=== PATIENT | male | born 1975 | race Caucasian/White ===

== ENCOUNTER 2016-09-22 22:23 | Emergency (ER) | payer OTHER ==
[2016-09-22 22:27] VITALS: BP 133/85; PULSE 79; RESP 18; TEMP 97.9
[2016-09-22] MEDS ORDERED: KETOROLAC 30 MG/ML 1 ML VIAL IVP STA (22:35)
[2016-09-22] MEDS ORDERED: SODIUM CHLORIDE 0.9% 1,000 ML IV STA ×2 (22:35)
[2016-09-22] MEDS ORDERED: MORPHINE SULFATE 4 MG/ML SYRINGE IV STA (22:35)
--- NOTE | 2016-09-22 22:41 | ED ---
General Adult HPI - General Chief complaint: Urogenital Stated complaint: Kidney Stone Time Seen by Provider: 09/22/16 22:24 Source: EMS, RN notes reviewed, old records reviewed Mode of arrival: EMS Limitations: no limitations - History of Present Illness Initial comments: This is a 41-year-old male to the ER for reevaluation K sounds, history of severe kidney stones multiple different episodes of kidney stones in his life. Multiple kidney stone procedures, follow Dr. Dilma Kirk urology, severe pain for 2 days now, mild blood and urine, and decreased urinary output. An abdominal pain. No fevers. - Related Data Home Medications Medication Instructions Recorded Confirmed Acetaminophen Tab [Tylenol Tab] 650 mg PO Q4-6H PRN 09/22/16 09/22/16 Albuterol Inhaler [Ventolin Hfa 1 - 2 puff INHALATION RT-QID PRN 09/22/16 Inhaler] Allergies Allergy/AdvReac Type Severity Reaction Status Date / Time No Known Allergies Allergy Verified 09/22/16 22:46 Review of Systems ROS Statement: Those systems with pertinent positive or pertinent negative responses have been documented in the HPI. ROS Other: All systems not noted in ROS Statement are negative. Past Medical History Past Medical History: Asthma Additional Past Medical History / Comment(s): kidney stones History of Any Multi-Drug Resistant Organisms: None Reported Past Surgical History: Appendectomy Past Psychological History: No Psychological Hx Reported Smoking Status: Current every day smoker Past Alcohol Use History: Occasional Past Drug Use History: None Reported General Exam Limitations: no limitations General appearance: alert, in no apparent distress Head exam: Present: atraumatic, normocephalic, normal inspection Eye exam: Present: normal appearance, PERRL, EOMI. Absent: scleral icterus, conjunctival injection, periorbital swelling ENT exam: Present: normal exam, mucous membranes moist Neck exam: Present: normal inspection. Absent: tenderness, meningismus, lymphadenopathy Respiratory exam: Present: normal lung sounds bilaterally. Absent: respiratory distress, wheezes, rales, rhonchi, stridor Cardiovascular Exam: Present: regular rate, normal rhythm, normal heart sounds. Absent: systolic murmur, diastolic murmur, rubs, gallop, clicks GI/Abdominal exam: Present: soft, normal bowel sounds. Absent: distended, tenderness, guarding, rebound, rigid Extremities exam: Present: normal inspection, full ROM, normal capillary refill. Absent: tenderness, pedal edema, joint swelling, calf tenderness Back exam: Present: normal inspection Neurological exam: Present: alert, oriented X3, CN II-XII intact Psychiatric exam: Present: normal affect, normal mood Skin exam: Present: warm, dry, intact, normal color. Absent: rash Course Vital Signs 09/22/16 22:24 Temperature 97.9 F Pulse Rate 79 Respiratory 18 Rate Blood Pressure 133/85 O2 Sat by Pulse 94 L Oximetry - Reevaluation(s) Reevaluation #1: 09/23/16 00:07 At this point patient's pain is controlled Medical Decision Making - Medical Decision Making 41 mailed ER for evaluation. Cells. Patient's positive bilateral kidney stones , and status control. Patient will be discharged home, no UTI no kidney failure - Lab Data Result diagrams: 09/22/16 22:37 09/22/16 22:37 Lab Results 09/22/16 09/22/16 09/22/16 Range/Units 22:37 22:37 22:37 WBC 11.3 H (3.8-10.6) k/uL RBC 3.79 L (4.30-5.90) m/uL Hgb 14.0 (13.0-17.5) gm/dL Hct 41.6 (39.0-53.0) % MCV 109.8 H (80.0-100.0) fL MCH 36.9 H (25.0-35.0) pg MCHC 33.6 (31.0-37.0) g/dL RDW 12.9 (11.5-15.5) % Plt Count 158 (150-450) k/uL Neutrophils % 58 % Lymphocytes % 25 % Monocytes % 6 % Eosinophils % 3 % Basophils % 1 % Neutrophils # 6.6 (1.3-7.7) k/uL Lymphocytes # 2.8 (1.0-4.8) k/uL Monocytes # 0.7 (0-1.0) k/uL Eosinophils # 0.4 (0-0.7) k/uL Basophils # 0.2 (0-0.2) k/uL Manual Slide Review Performed RBC Morphology Normal Macrocytosis Marked Sodium 144 (137-145) mmol/L Potassium 3.3 L (3.5-5.1) mmol/L Chloride 108 H (98-107) mmol/L Carbon Dioxide 20 L (22-30) mmol/L Anion Gap 16 mmol/L BUN 4 L (9-20) mg/dL Creatinine 0.70 (0.66-1.25) mg/dL Est GFR (MDRD) Af Amer >60 (>60 ml/min/1.73 sqM) Est GFR (MDRD) Non-Af >60 (>60 ml/min/1.73 sqM) Glucose 142 H (74-99) mg/dL Calcium 9.5 (8.4-10.2) mg/dL Total Bilirubin 0.7 (0.2-1.3) mg/dL AST 275 H (17-59) U/L ALT 83 H (21-72) U/L Alkaline Phosphatase 121 (38-126) U/L Total Protein 8.3 H (6.3-8.2) g/dL Albumin 4.3 (3.5-5.0) g/dL Amylase 75 (30-110) U/L Lipase 663 H (23-300) U/L Urine Color Yellow Urine Appearance Clear (Clear) Urine pH 6.0 (5.0-8.0) Ur Specific [place] 1.005 (1.001-1.035) Urine Protein Negative (Negative) Urine Glucose (UA) Negative (Negative) Urine Ketones Negative (Negative) Urine Blood Large H (Negative) Urine Nitrite Negative (Negative) Urine Bilirubin Negative (Negative) Urine Urobilinogen 3.0 (<2.0) mg/dL Ur Leukocyte Esterase Negative (Negative) Urine RBC 68 H (0-5) /hpf Urine WBC 13 H (0-5) /hpf Hyaline Casts 5 H (0-2) /lpf Urine Mucus Rare H (None) /hpf - Radiology Data Radiology results: report reviewed (X-ray KUB is negative), image reviewed Disposition Clinical Impression: Kidney stones Disposition: HOME SELF-CARE Condition: Good Instructions: Kidney Stones (ED) Referrals: Timmy Guevara MD [Primary Care Provider] - 1-2 days
[2016-09-22 22:58] LABS: Aty Lym Flag Slight; Basophils # (A) 0.2 k/uL (0-0.2); Basophils % (A) 1 %; CH 37.1; CHCM 33.9; Eosinophils # (A) 0.4 k/uL (0-0.7); Eosinophils % (A) 3 %; HCT 41.6 % (39.0-53.0); HDW 2.06; Luc # (Auto) 0.65; Luc % (Auto) 6; Lymphocytes # (A) 2.8 k/uL (1.0-4.8); Lymphocytes % (A) 25 %; MCH 36.9 pg (25.0-35.0); MCHC 33.6 g/dL (31.0-37.0); MCV 109.8 fL (80.0-100.0); Macrocytosis Marked; Mean Platelet Volume 9.5; Monocytes # (A) 0.7 k/uL (0-1.0); Monocytes % (A) 6 %; Neutrophils # (A) 6.6 k/uL (1.3-7.7); Neutrophils % (A) 58 %; RBC 3.79 m/uL (4.30-5.90); RDW 12.9 % (11.5-15.5); WBC 11.3 k/uL (3.8-10.6); WBC (Perox) 10.83
[2016-09-22 23:00] LABS: Appearance,Urine Clear (Clear); Bilirubin,Urine Negative (Negative); Glucose,Urine (UA) Negative (Negative); Ketones,Urine Negative (Negative); Leukocyte Esterase,Urine Negative (Negative); Mucus,Urine Rare /hpf; Nitrite,Urine Negative (Negative); Particle Count 2355; Protein,Urine Negative (Negative); RBC,Urine 68 /hpf (0-5); Specific Gravity,Urine 1.005 (1.001-1.035); UA Billing (MACRO vs. MICRO) MICRO; WBC,Urine 13 /hpf (0-5)
[2016-09-22 23:09] LABS: ALT 83 U/L (21-72); AST 275 U/L (17-59); Alkaline Phosphatase 121 U/L (38-126); Amylase 75 U/L (30-110); Anion Gap 16 mmol/L; Blood Urea Nitrogen 4 mg/dL (9-20); Calcium 9.5 mg/dL (8.4-10.2); Carbon Dioxide 20 mmol/L (22-30); Chloride 108 mmol/L (98-107); Glucose 142 mg/dL (74-99); Non-African American GFR(MDRD) >60 (>60 ml/min/1.73 sqM); Potassium 3.3 mmol/L (3.5-5.1); Sodium 144 mmol/L (137-145); Total Bilirubin 0.7 mg/dL (0.2-1.3); Total Protein 8.3 g/dL (6.3-8.2)
--- NOTE | 2016-09-22 23:27 | XR ---
EXAM: XR Abdomen Complete, 2 or More Views CLINICAL HISTORY: Reason: abdominal pain TECHNIQUE: Frontal view of the abdomen/pelvis with upright view of the abdomen. COMPARISON: No relevant prior studies available. FINDINGS: Intraperitoneal space: No free air. Gastrointestinal tract: Unremarkable. No dilation. Bones/joints: Unremarkable. IMPRESSION: Unremarkable abdominal x-rays.
[2016-09-22 23:28] LABS: Manual Review Performed; RBC Morphology Normal
[2016-09-22] MEDS ORDERED: HYDROmorphone 1 MG/ML 1 ML SYRINGE IVP STA (23:45)
== END 2016-09-23 00:15 | disposition home or self-care (01) ==
LOC: MERGE 22:23 → EC 22:23
DX: N20.0 Calculus of kidney (principal); F17.200 Nicotine dependence, unspecified, uncomplicated; Z90.49 Acquired absence of other specified parts of digestive tract
CPT/HCPCS: 36415; 80053; 82150; 83690; 85025; 81001; 87086; 74000; 99284; 96374; 96375 ×2; 96361; J2270; J1885; J1170

== ENCOUNTER 2016-10-11 18:34 | Emergency (ER) | payer OTHER ==
[2016-10-11 18:46] VITALS: RESP 18
[2016-10-11] MEDS ORDERED: LIDOCAINE VISCOUS 2% 15 ML CUP MUCOUS MEM ONE (18:55)
[2016-10-11] MEDS ORDERED: PENICILLIN V POTASSIUM 250 MG TAB PO STA (18:57)
[2016-10-11] MEDS ORDERED: Acetaminophen-Codeine 300-30mg TAB PO STA (19:32)
--- NOTE | 2016-10-11 19:37 | ED ---
ENT HPI - General Chief complaint: Dental/Oral Stated complaint: DENTAL ABSCESS Time Seen by Provider: 10/11/16 18:46 Source: patient Mode of arrival: ambulatory Limitations: no limitations - History of Present Illness Initial comments: Patient is a 41-year-old male presenting to the emergency department with complaints of dental pain to tooth #10. Onset of symptoms started approximately 3 days ago. Patient states it hurts when air hits the tooth. Patient complains of intermittent chills, denies fevers. Patient currently rates pain 8 out of 10. Patient states he took some Motrin approximately 2 hours prior to arrival. Patient denies nausea, vomiting, shortness of breath, chest pain, trismus, difficulty swallowing, sore throat, ear pain, decreased hearing, abdominal pain, numbness or tingling. Patient states he has a dentist and is going to make an appointment on Wednesday. MD complaint: tooth pain Onset/Timin -: days(s) Location: tooth # (10) Severity: severe Severity scale (1-10): 10 Quality: sharp Consistency: constant Improves with: none Worsens with: eating Context- Dental: history of dental caries, poor dental care Associated Symptoms: other (Chills) - Related Data Home Medications Medication Instructions Recorded Confirmed Acetaminophen Tab [Tylenol Tab] 650 mg PO Q4-6H PRN 09/22/16 09/22/16 Albuterol Inhaler [Ventolin Hfa 1 - 2 puff INHALATION RT-QID PRN 09/22/16 Inhaler] Previous Rx's Medication Instructions Recorded HYDROcodone/APAP 5-325MG [[place] 1 tab PO Q6HR PRN #30 tab 09/23/16 5-325] Naproxen [Naprosyn] 500 mg PO Q12HR #60 tab 09/23/16 Tamsulosin [Flomax] 0.4 mg PO DAILY #30 cap 09/23/16 Acetaminophen-Codeine 300-30mg 1 tab PO Q4H PRN #20 tablet 10/11/16 [Tylenol #3] Penicillin V Potassium [Pen Vee K] 500 mg PO QID #28 tab 10/11/16 Allergies Allergy/AdvReac Type Severity Reaction Status Date / Time No Known Allergies Allergy Verified 10/11/16 18:46 Review of Systems ROS Statement: Those systems with pertinent positive or pertinent negative responses have been documented in the HPI. ROS Other: All systems not noted in ROS Statement are negative. Past Medical History Past Medical History: Asthma Additional Past Medical History / Comment(s): kidney stones History of Any Multi-Drug Resistant Organisms: None Reported Past Surgical History: Appendectomy Past Psychological History: No Psychological Hx Reported Smoking Status: Current every day smoker Past Alcohol Use History: Occasional Past Drug Use History: None Reported General Exam Limitations: no limitations General appearance: alert, in no apparent distress Head exam: Present: atraumatic, normocephalic, normal inspection Eye exam: Present: normal appearance ENT exam: Present: mucous membranes moist Expanded Ear exam: Present: normal external inspection Mouth exam: Present: normal external inspection, tongue normal. Absent: drooling, trismus Teeth exam: Present: fractured tooth # (10), dental tenderness # (10), gingival enlargement (Minimal gingival enlargement superior to tooth #10) Throat exam: normal inspection. negative: tonsillar erythema, tonsillomegaly, tonsillar exudate, R peritonsillar mass, L peritonsillar mass Neck exam: Present: normal inspection, full ROM. Absent: tenderness, lymphadenopathy Respiratory exam: Present: normal lung sounds bilaterally. Absent: respiratory distress, wheezes, rales, rhonchi, stridor Cardiovascular Exam: Present: regular rate, tachycardia, normal heart sounds. Absent: systolic murmur GI/Abdominal exam: Present: soft, normal bowel sounds. Absent: distended, tenderness, guarding, rebound, rigid Extremities exam: Present: normal inspection, full ROM. Absent: tenderness Neurological exam: Present: alert, oriented X3, normal gait, other (No focal deficits noted) Psychiatric exam: Present: normal affect, normal mood Skin exam: Present: warm, dry, intact, normal color. Absent: rash Course Vital Signs 10/11/16 18:44 Temperature 98.5 F Pulse Rate 101 H Respiratory 18 Rate Blood Pressure 149/83 O2 Sat by Pulse 95 Oximetry Procedures - Incision & Drainage Consent Obtained: verbal consent Time Out Performed?: No Indication: Possible dental abscess Site: oral (Superior to tooth #10) Anesthetic Used: lidocaine 2% (Meniscus lidocaine) Sterile Field Used?: Yes Needle Aspiration Performed?: Yes Irrigation Performed?: No I&D Drainage Obtained: Blood Culture Obtained?: No Patient Tolerated Procedure: well, no complications Medical Decision Making - Medical Decision Making Dental abscess and toothache to tooth #10. No pus obtained from needle aspiration. Patient started on antibiotics and pain medicine and instructed to follow-up with dentist. Patient instructed to return to the emergency department if symptoms do not improve or get worse. Patient agrees with treatment plan. Discharge instructions and return parameters reviewed. Disposition Clinical Impression: Toothache, Dental abscess Disposition: HOME SELF-CARE Condition: Good Instructions: Dental Abscess (ED), Toothache (ED) Additional Instructions: Please finish antibiotics as prescribed. Continue Motrin and Tylenol 3 for pain as needed. Follow-up with dentist next week. Please return to the emergency department if symptoms do not improve or get worse in the next 24-48 hours. Prescriptions: Acetaminophen-Codeine 300-30mg [Tylenol #3] 1 tab PO Q4H PRN #20 tablet PRN Reason: Pain Penicillin V Potassium [Pen Vee K] 500 mg PO QID #28 tab Referrals: Timmy Guevara MD [Primary Care Provider] - 1-2 days Time of Disposition: 19:36
[2016-10-11 19:49] VITALS: BP 145/76; PULSE 94; TEMP 98.7
== END 2016-10-11 19:48 | disposition home or self-care (01) ==
LOC: MERGE 18:34 → EC 18:34
DX: K04.7 Periapical abscess without sinus (principal); S02.5XXA Fracture of tooth (traumatic), initial encounter for closed fracture; F17.200 Nicotine dependence, unspecified, uncomplicated; X58.XXXA Exposure to other specified factors, initial encounter
CPT/HCPCS: 41800; 99282

== ENCOUNTER 2016-10-30 05:42 | Emergency (ER) | payer OTHER ==
[2016-10-30 05:51] VITALS: RESP 18
--- NOTE | 2016-10-30 06:04 | ED ---
ENT HPI - General Chief complaint: Dental/Oral Stated complaint: Dental Pain Time Seen by Provider: 10/30/16 05:48 Source: patient Mode of arrival: ambulatory Limitations: no limitations - History of Present Illness Initial comments: This is a 41-year-old male who presents emergency department for dental pain. The patient states he's been having dental pain over his right upper lateral incisor for the last month. He was eating a steak last night and the tooth broke. He swallowed some of it and kept the other part which she lost arrival to the ED. He states that he came in because he wanted to have the tooth pulled because it was hurting. He denies any fevers or chills. He states he is not able to get into his dentist for quite some time. - Related Data Home Medications Medication Instructions Recorded Confirmed Albuterol Inhaler [Ventolin 2 puff INHALATION RT-QID PRN 02/14/15 02/10/16 Inhaler] Previous Rx's Medication Instructions Recorded HYDROcodone/APAP 7.5-325MG [[place] 1 tab PO Q4H PRN #15 tab 10/30/16 7.5-325] Allergies Allergy/AdvReac Type Severity Reaction Status Date / Time No Known Allergies Allergy Verified 10/30/16 05:51 Review of Systems ROS Statement: Those systems with pertinent positive or pertinent negative responses have been documented in the HPI. ROS Other: All systems not noted in ROS Statement are negative. Past Medical History Past Medical History: Asthma Additional Past Medical History / Comment(s): kidney stones History of Any Multi-Drug Resistant Organisms: MRSA, None Reported Date of last positivie culture/infection: 12/09/2013 MDRO Source:: Right First Finger Past Surgical History: Appendectomy, Orthopedic Surgery Additional Past Surgical History / Comment(s): right hand surgery, right knee surgery Past Psychological History: No Psychological Hx Reported Smoking Status: Current every day smoker Past Alcohol Use History: Daily, Occasional Past Drug Use History: None Reported General Exam - General Exam Comments Initial Comments: Constitutional: Awake alert Appears comfortable Head: Normocephalic atraumatic Eyes: no conjunctival injection No scleral icterus EOMI ENT: There is a fractured right upper lateral incisor with jagged edges, no periodontal swelling or abscess formation Neck: No JVD Supple Heart: Tachycardic normal S1-S2 no murmurs Lungs: Clear to auscultation bilaterally No wheezing No rales Abdomen: Soft nondistended nontender Extremities: Non edematous DP pulses intact Radial pulses intact Neuro: A&Ox3 No focal neurologic deficits Psych: Appropriate mood and affect Limitations: no limitations Course Vital Signs 10/30/16 10/30/16 05:48 06:40 Temperature 98.7 F 97.8 F Pulse Rate 125 H 108 H Respiratory 18 18 Rate Blood Pressure 132/69 124/64 O2 Sat by Pulse 94 L 97 Oximetry - Reevaluation(s) Reevaluation #1: 10/30/16 06:48 EKG showing sinus tachycardia with a rate of 103. No ST segment changes or T- wave inversions. QTC 445. Other intervals are normal. No ectopy. Medical Decision Making - Medical Decision Making This is a 5-year-old male came in for a tooth fracture. He was found to be a little bit tachycardic and had some wheezing on examination and thus a chest x- ray was performed that was unremarkable. EKG also showed very mild tachycardia. The patient's tooth was filed down to round out the sharp edges. He was told to call his dentist today for extraction. No evidence for infection. We will send the patient home. He can return if he has any worsening symptoms. All questions were answered. Disposition Clinical Impression: Tooth fracture Disposition: HOME SELF-CARE Condition: Stable Instructions: Dental Caries (ED), Toothache (ED) Prescriptions: HYDROcodone/APAP 7.5-325MG [[place] 7.5-325] 1 tab PO Q4H PRN #15 tab PRN Reason: Pain Referrals: Timmy Guevara MD [Primary Care Provider] - 1-2 days
[2016-10-30] MEDS ORDERED: KETOROLAC 30 MG/ML 1 ML VIAL IM STA (06:20)
[2016-10-30 06:41] VITALS: BP 124/64; PULSE 108; TEMP 97.8
--- NOTE | 2016-10-30 06:48 | XR ---
EXAM: XR Chest, 2 Views CLINICAL HISTORY: Reason: cough TECHNIQUE: Frontal and lateral views of the chest. COMPARISON: No relevant prior studies available. FINDINGS: Lungs: Unremarkable. No consolidation. Pleural space: Unremarkable. No pneumothorax. Heart: Unremarkable. No cardiomegaly. Mediastinum: Unremarkable. Bones/joints: Unremarkable. IMPRESSION: Unremarkable chest x-rays.
== END 2016-10-30 06:42 | disposition home or self-care (01) ==
LOC: EC 05:42
DX: S02.5XXA Fracture of tooth (traumatic), initial encounter for closed fracture (principal); R00.0 Tachycardia, unspecified; R06.2 Wheezing; F17.200 Nicotine dependence, unspecified, uncomplicated; X58.XXXA Exposure to other specified factors, initial encounter
CPT/HCPCS: 93005; 71020; 99283; 96372; J1885

== ENCOUNTER 2016-12-04 19:10 | Observation (INO) | payer OTHER ==
[2016-12-04 19:38] LABS: Basophils # (A) 0.2 k/uL (0-0.2); Basophils % (A) 2 %; CH 34.8; CHCM 33.1; Eosinophils # (A) 0.2 k/uL (0-0.7); Eosinophils % (A) 2 %; HCT 38.2 % (39.0-53.0); HDW 1.97; HGB 12.9 gm/dL (13.0-17.5); Luc # (Auto) 0.35; Luc % (Auto) 3; Lymphocytes # (A) 1.7 k/uL (1.0-4.8); Lymphocytes % (A) 17 %; MCH 35.6 pg (25.0-35.0); MCHC 33.7 g/dL (31.0-37.0); MCV 105.5 fL (80.0-100.0); Macrocytosis Slight; Mean Platelet Volume 9.7; Monocytes % (A) 9 %; Neutrophils # (A) 6.9 k/uL (1.3-7.7); Neutrophils % (A) 68 %; RBC 3.62 m/uL (4.30-5.90); RDW 13.2 % (11.5-15.5); WBC 10.2 k/uL (3.8-10.6); WBC (Perox) 10.23
[2016-12-04 19:51] LABS: ALT 80 U/L (21-72); AST 235 U/L (17-59); Alkaline Phosphatase 130 U/L (38-126); Anion Gap 16 mmol/L; Blood Urea Nitrogen 4 mg/dL (9-20); Calcium 9.5 mg/dL (8.4-10.2); Carbon Dioxide 20 mmol/L (22-30); Chloride 107 mmol/L (98-107); Glucose 113 mg/dL (74-99); Magnesium 1.8 mg/dL (1.6-2.3); Non-African American GFR(MDRD) >60 (>60 ml/min/1.73 sqM); Potassium 3.6 mmol/L (3.5-5.1); Sodium 143 mmol/L (137-145); Total Bilirubin 1.1 mg/dL (0.2-1.3)
[2016-12-04 19:55] LABS: INR 1.1 (<1.2); Partial Thromboplastin Time 26.1 sec (22.0-30.0); Prothrombin Time 11.1 sec (9.0-12.0)
[2016-12-04] MEDS ORDERED: SODIUM CHLORIDE 0.9% 1,000 ML IV ONE (20:02)
[2016-12-04] MEDS ORDERED: MORPHINE SULFATE 4 MG/ML SYRINGE IVP STA (20:02)
[2016-12-04 20:11] LABS: Creatine Kinase 152 U/L (55-170)
--- NOTE | 2016-12-04 20:20 | XR ---
EXAMINATION TYPE: XR chest 2V DATE OF EXAM: 12/04/2016 COMPARISON: 10/30/2016 HISTORY: Short of breath TECHNIQUE: Frontal and lateral views of the chest are obtained. FINDINGS: Heart and mediastinum are normal. Lungs are clear of consolidation. Diaphragm is normal. T here is a small linear density at the right posterior lung base. There are chest leads. Bony thorax i s intact. IMPRESSION: There is new mild subsegmental atelectasis at the right lung base compared to old exam. Normal heart.
[2016-12-04 20:22] LABS: Creatine Kinase MB 0.5 ng/mL (0.0-2.4); Troponin I <0.012 ng/mL (0.000-0.034)
[2016-12-04] MEDS ORDERED: SODIUM CHLORIDE 0.9% 1,000 ML IV SCH (21:30)
[2016-12-04] MEDS ORDERED: NALOXONE 0.4 MG/ML 1 ML VIAL IV PRN (22:26)
[2016-12-04] MEDS ORDERED: ONDANSETRON 4 MG/2 ML VIAL IVP PRN (22:26)
[2016-12-04] MEDS ORDERED: THIAMINE 100 MG/ML 2 ML VIAL IM STA (22:30)
[2016-12-04] MEDS ORDERED: LORazepam 2 MG/ML SYRINGE IV PRN ×3 (22:30)
--- NOTE | 2016-12-04 22:45 | ED ---
General Adult HPI - General Chief complaint: Chest Pain Stated complaint: Chest Pain Time Seen by Provider: 12/04/16 19:20 Source: patient, RN notes reviewed Mode of arrival: ambulatory Limitations: no limitations - History of Present Illness Initial comments: 41-year-old male presenting with chief complaint of chest pain. Patient describes the pain as pressure-like been on and off for 3 days. Patient denies any nausea vomiting diarrhea. He is also complaining of tooth pain. Tooth is been present for some time. Denies diaphoresis. Denies a strong family history of coronary artery disease. Patient does admit to consuming large amounts of alcohol over the past 24-48 hours. Only past medical history is asthma. - Related Data Home Medications Medication Instructions Recorded Confirmed Albuterol Inhaler [Ventolin 2 puff INHALATION RT-QID PRN 02/14/15 12/04/16 Inhaler] Multivitamin [Men's Multi-Vitamin] 1 tab PO DAILY 12/04/16 12/04/16 Allergies Allergy/AdvReac Type Severity Reaction Status Date / Time No Known Allergies Allergy Verified 12/04/16 19:38 Review of Systems ROS Statement: Those systems with pertinent positive or pertinent negative responses have been documented in the HPI. ROS Other: All systems not noted in ROS Statement are negative. Cardiovascular: Reports: chest pain Past Medical History Past Medical History: Asthma Additional Past Medical History / Comment(s): kidney stones History of Any Multi-Drug Resistant Organisms: MRSA, None Reported Date of last positivie culture/infection: 12/09/2013 MDRO Source:: Right First Finger Past Surgical History: Appendectomy, Orthopedic Surgery Additional Past Surgical History / Comment(s): right hand surgery, right knee surgery Past Psychological History: No Psychological Hx Reported Smoking Status: Current every day smoker Past Alcohol Use History: Daily, Occasional Past Drug Use History: None Reported General Exam Limitations: no limitations General appearance: alert, in no apparent distress, appears intoxicated Head exam: Present: atraumatic, normocephalic Eye exam: Present: normal appearance, PERRL ENT exam: Present: normal exam, mucous membranes dry Neck exam: Present: normal inspection, full ROM Respiratory exam: Present: normal lung sounds bilaterally. Absent: respiratory distress Cardiovascular Exam: Present: regular rate, normal rhythm GI/Abdominal exam: Present: soft, tenderness (Tenderness in the epigastrium). Absent: guarding, rebound Extremities exam: Present: normal inspection, normal capillary refill. Absent: pedal edema Neurological exam: Present: alert, oriented X3 Psychiatric exam: Present: normal affect, normal mood Skin exam: Present: warm, dry Course Vital Signs 12/04/16 12/04/16 12/04/16 19:20 19:24 20:43 Temperature 98.3 F Pulse Rate 81 70 Pulse Rate [ 82 Mock Up Builder ] Respiratory 18 17 Rate Blood Pressure 145/80 135/73 O2 Sat by Pulse 96 97 Oximetry 12/04/16 22:07 Temperature 98.0 F Pulse Rate 82 Pulse Rate [ Mock Up Builder ] Respiratory 18 Rate Blood Pressure 130/75 O2 Sat by Pulse 95 Oximetry - Reevaluation(s) Reevaluation #1: 12/04/16 22:41 Reevaluation the patient is still having pain primarily in the epigastrium. EKG Findings - EKG Comments: EKG Findings:: EKG shows normal sinus rhythm, ventricular rate 93, [place] interval 150, QRS duration 96, QTC is 465, there is no ST segment elevation or depression , no T-wave abnormality. Medical Decision Making - Medical Decision Making 41-year-old male presenting with chest pain and epigastric abdominal pain. Patient is tender on examination in the epigastrium, no rebound or guarding. He does admit to drinking alcohol. Patient is clinically intoxicated. He is in no acute distress. EKG is nonischemic. Chest x-ray shows no acute process. D-dimer is mildly elevated, however given the patient's heart rate blood pressure and oxygen saturation and no lower extremity swelling no further workup for pulmonary embolism will be obtained at this time. Laboratory studies reveal thrombocytopenia, elevated serum lipase consistent with pancreatitis. Liver enzymes are also elevated. Initial cardiac enzymes are negative. Given a chief complaint of chest pain serial cardiac enzymes will be obtained. Ultrasound also be ordered to rule out gallstone pancreatitis , however given the history and clinical intoxication this is likely alcoholic pancreatitis. Patient will be given IV fluids, nothing by mouth, and pain control. He will be admitted for acute pancreatitis and chest pain rule out. - Lab Data Result diagrams: 12/04/16 19:25 12/04/16 19:25 Lab Results 12/04/16 12/04/16 12/04/16 Range/Units 19:25 19:25 19:25 WBC 10.2 (3.8-10.6) k/uL RBC 3.62 L (4.30-5.90) m/uL Hgb 12.9 L (13.0-17.5) gm/dL Hct 38.2 L (39.0-53.0) % MCV 105.5 H (80.0-100.0) fL MCH 35.6 H (25.0-35.0) pg MCHC 33.7 (31.0-37.0) g/dL RDW 13.2 (11.5-15.5) % Plt Count 102 L (150-450) k/uL Neutrophils % 68 % Lymphocytes % 17 % Monocytes % 9 % Eosinophils % 2 % Basophils % 2 % Neutrophils # 6.9 (1.3-7.7) k/uL Lymphocytes # 1.7 (1.0-4.8) k/uL Monocytes # 1.0 (0-1.0) k/uL Eosinophils # 0.2 (0-0.7) k/uL Basophils # 0.2 (0-0.2) k/uL Macrocytosis Slight PT (9.0-12.0) sec INR (<1.2) APTT (22.0-30.0) sec D-Dimer (<0.60) mg/L FEU Sodium 143 (137-145) mmol/L Potassium 3.6 (3.5-5.1) mmol/L Chloride 107 (98-107) mmol/L Carbon Dioxide 20 L (22-30) mmol/L Anion Gap 16 mmol/L BUN 4 L (9-20) mg/dL Creatinine 0.60 L (0.66-1.25) mg/dL Est GFR (MDRD) Af Amer >60 (>60 ml/min/1.73 sqM) Est GFR (MDRD) Non-Af >60 (>60 ml/min/1.73 sqM) Glucose 113 H (74-99) mg/dL Calcium 9.5 (8.4-10.2) mg/dL Magnesium 1.8 (1.6-2.3) mg/dL Total Bilirubin 1.1 (0.2-1.3) mg/dL AST 235 H (17-59) U/L ALT 80 H (21-72) U/L Alkaline Phosphatase 130 H (38-126) U/L Total Creatine Kinase 152 (55-170) U/L CK-MB (CK-2) 0.5 (0.0-2.4) ng/mL CK-MB (CK-2) Rel Index 0.3 Troponin I <0.012 (0.000-0.034) ng/mL NT-Pro-B Natriuret Pep pg/mL Total Protein 8.0 (6.3-8.2) g/dL Albumin 4.4 (3.5-5.0) g/dL Lipase 764 H (23-300) U/L Serum Alcohol mg/dL 12/04/16 12/04/16 12/04/16 Range/Units 19:25 19:25 20:24 WBC (3.8-10.6) k/uL RBC (4.30-5.90) m/uL Hgb (13.0-17.5) gm/dL Hct (39.0-53.0) % MCV (80.0-100.0) fL MCH (25.0-35.0) pg MCHC (31.0-37.0) g/dL RDW (11.5-15.5) % Plt Count (150-450) k/uL Neutrophils % % Lymphocytes % % Monocytes % % Eosinophils % % Basophils % % Neutrophils # (1.3-7.7) k/uL Lymphocytes # (1.0-4.8) k/uL Monocytes # (0-1.0) k/uL Eosinophils # (0-0.7) k/uL Basophils # (0-0.2) k/uL Macrocytosis PT 11.1 (9.0-12.0) sec INR 1.1 (<1.2) APTT 26.1 (22.0-30.0) sec D-Dimer 0.70 H (<0.60) mg/L FEU Sodium (137-145) mmol/L Potassium (3.5-5.1) mmol/L Chloride (98-107) mmol/L Carbon Dioxide (22-30) mmol/L Anion Gap mmol/L BUN (9-20) mg/dL Creatinine (0.66-1.25) mg/dL Est GFR (MDRD) Af Amer (>60 ml/min/1.73 sqM) Est GFR (MDRD) Non-Af (>60 ml/min/1.73 sqM) Glucose (74-99) mg/dL Calcium (8.4-10.2) mg/dL Magnesium (1.6-2.3) mg/dL Total Bilirubin (0.2-1.3) mg/dL AST (17-59) U/L ALT (21-72) U/L Alkaline Phosphatase (38-126) U/L Total Creatine Kinase (55-170) U/L CK-MB (CK-2) (0.0-2.4) ng/mL CK-MB (CK-2) Rel Index Troponin I (0.000-0.034) ng/mL NT-Pro-B Natriuret Pep 31 pg/mL Total Protein (6.3-8.2) g/dL Albumin (3.5-5.0) g/dL Lipase (23-300) U/L Serum Alcohol 291 mg/dL Disposition Clinical Impression: Pancreatitis, acute Disposition: ADMITTED IP TO THIS HOSP Referrals: Timmy Guevara MD [Primary Care Provider] - 1-2 days Decision to Admit Reason: Admit from EC Decision Date: 12/04/16 Decision Time: 22:00
[2016-12-04] MEDS: THIAMINE 100 MG TAB PO SCH (23:44)
[2016-12-04 23:53] VITALS: BMI 25.3
[2016-12-04] MEDS: MORPHINE SULFATE 4 MG/ML SYRINGE IV PRN (23:54)
--- NOTE | 2016-12-05 00:38 | US ---
EXAM: US Abdomen Limited, Right Upper Quadrant CLINICAL HISTORY: Reason: Pain TECHNIQUE: Real-time ultrasound of the right upper quadrant with image documentation. COMPARISON: CT dated 03/03/16. FINDINGS: Liver: Liver Length: 20.1 cm fatty and enlarged No intrahepatic bile duct dilation. Gallbladder: Gallbladder Wall: 0.2 cm. No evidence for sonographic Talamantes's sign. No gallstones. Common bile duct: CBD: 0.3 cm. Unremarkable as visualized. No stones. No dilation. Pancreas: hyperechoic Right kidney: 12.1 x 6.2 x 4.4 cm. No stones. No hydronephrosis. IMPRESSION: Hepatomegaly with fatty infiltration. Previously seen right renal calculi not identified on ultrasound.
[2016-12-05] MEDS ORDERED: ALBUTEROL NEBULIZED 2.5 MG/3 ML INHALATION PRN (01:04)
[2016-12-05 02:15] LABS: Creatine Kinase 149 U/L (55-170)
[2016-12-05 02:28] LABS: Creatine Kinase MB 0.5 ng/mL (0.0-2.4); Troponin I <0.012 ng/mL (0.000-0.034)
[2016-12-05] MEDS: NICOTINE 21MG/24HR PATCH TRANSDERM SCH ×2 (02:41→11:34)
[2016-12-05] MEDS: MORPHINE SULFATE 4 MG/ML SYRINGE IV PRN ×3 (03:35→11:34)
[2016-12-05 07:21] LABS: ALT 68 U/L (21-72); AST 159 U/L (17-59); Alkaline Phosphatase 106 U/L (38-126); Anion Gap 11 mmol/L; Blood Urea Nitrogen 3 mg/dL (9-20); Carbon Dioxide 18 mmol/L (22-30); Chloride 110 mmol/L (98-107); Glucose 85 mg/dL (74-99); Non-African American GFR(MDRD) >60 (>60 ml/min/1.73 sqM); Potassium 3.6 mmol/L (3.5-5.1); Sodium 139 mmol/L (137-145); Total Protein 6.8 g/dL (6.3-8.2)
[2016-12-05 07:24] LABS: Creatine Kinase 162 U/L (55-170)
[2016-12-05 07:32] LABS: Basophils # (A) 0.1 k/uL (0-0.2); Basophils % (A) 1 %; CH 34.2; CHCM 32.1; Eosinophils # (A) 0.2 k/uL (0-0.7); Eosinophils % (A) 4 %; HCT 35.2 % (39.0-53.0); HDW 1.95; HGB 11.7 gm/dL (13.0-17.5); Luc # (Auto) 0.14; Luc % (Auto) 2; Lymphocytes # (A) 1.7 k/uL (1.0-4.8); Lymphocytes % (A) 27 %; MCH 35.5 pg (25.0-35.0); MCHC 33.1 g/dL (31.0-37.0); MCV 107.1 fL (80.0-100.0); Macrocytosis Moderate; Monocytes # (A) 0.6 k/uL (0-1.0); Monocytes % (A) 9 %; Neutrophils # (A) 3.6 k/uL (1.3-7.7); Neutrophils % (A) 57 %; RBC 3.29 m/uL (4.30-5.90); RDW 13.1 % (11.5-15.5); WBC 6.3 k/uL (3.8-10.6)
[2016-12-05 07:36] LABS: Creatine Kinase MB 0.5 ng/mL (0.0-2.4); Troponin I <0.012 ng/mL (0.000-0.034)
--- NOTE | 2016-12-05 08:48 | P.CRDCN ---
History of Present Illness Consult date: 12/05/16 History of present illness: This is a 41-year-old gentleman with history of alcohol abuse who has been drinking heavily for the last 4 days, who was admitted to the hospital with complaints of chest pain and left arm pain and also epigastric distress. Apparently he was drinking with his friend and complained having some heavy feeling in the chest as if somebody sitting on his chest with some left arm numbness and tingling. This started around noontime yesterday and lasted up to 1:00 last night. Denies any nausea or vomiting or diarrhea. He also has a tooth abscess and having some tooth pain. His EKG did not reveal any acute changes. His cardiac enzymes studies are negative. His liver enzymes are elevated and the also lipase is elevated. This may be related to alcohol consumption. We are planning to do an echocardiogram today. If that is normal and patient remains stable, patient probably could be discharged to have an outpatient stress test early next week. Patient also may require GI evaluation because of abnormal liver and pancreatic enzymes. The possibility of esophagitis and gastritis to be considered Review of Systems As per the chart Past Medical History Past Medical History: Asthma Additional Past Medical History / Comment(s): kidney stones History of Any Multi-Drug Resistant Organisms: None Reported Date of last positivie culture/infection: 12/09/2013 MDRO Source:: Right First Finger Past Surgical History: Appendectomy, Orthopedic Surgery Additional Past Surgical History / Comment(s): right hand surgery, right knee surgery Past Anesthesia/Blood Transfusion Reactions: No Reported Reaction Smoking Status: Current every day smoker - Past Family History Mother Family Medical History: Hypertension Father Additional Family Medical History / Comment(s): Prostate issues. Brain anyrsum Medications and Allergies Home Medications Medication Instructions Recorded Confirmed Type Albuterol Inhaler [Ventolin 2 puff INHALATION RT-QID PRN 02/14/15 12/04/16 History Inhaler] Multivitamin [Men's Multi-Vitamin] 1 tab PO DAILY 12/04/16 12/04/16 History Allergies Allergy/AdvReac Type Severity Reaction Status Date / Time No Known Allergies Allergy Verified 12/04/16 19:38 Physical Exam Vitals: Vital Signs Temp Pulse Pulse Pulse Resp BP BP 12/05/16 07:40 98.1 F 81 16 12/05/16 03:49 18 12/05/16 03:02 97.9 F 73 18 122/58 12/04/16 23:56 18 12/04/16 23:41 97.8 F 75 18 141/80 12/04/16 23:11 98.0 F 66 18 118/78 12/04/16 22:07 98.0 F 82 18 130/75 12/04/16 20:43 70 17 135/73 12/04/16 19:24 82 12/04/16 19:20 98.3 F 81 18 145/80 BP Pulse Ox 12/05/16 07:40 145/81 92 L 12/05/16 03:49 12/05/16 03:02 94 L 12/04/16 23:56 12/04/16 23:41 93 L 12/04/16 23:11 98 12/04/16 22:07 95 12/04/16 20:43 97 12/04/16 19:24 12/04/16 19:20 96 Intake and Output 12/04/16 12/05/16 12/05/16 22:59 06:59 14:59 Intake Total 900 Balance 900 Intake: IV 900 Sodium Chloride 0.9% 1, 900 000 ml @ 100 mls/hr IV . Q10H [facility] Rx#:[id number] Other: Voiding Method Toilet Toilet # Voids 3 Weight 84.822 kg 84.8 kg GENERAL EXAM: Patient is alert and oriented and doesn't appear to be in any acute distress HEENT: Normocephalic. Normal reaction of pupils, equal size, normal range of extraocular motion. No erythema or exudates in the throat. NECK: No masses, no nuchal rigidity. CHEST: No chest wall deformity. LUNGS: Equal air entry with no crackles or wheeze. HEART: S1 and S2 normal with no audible mumurs or gallops. Regular rhythm, femorals equal on both sides.. ABDOMEN: No hepatosplenomegaly, normal bowel sounds, no guarding or rigidity. SKIN: No rashes CENTRAL NERVOUS SYSTEM: No focal deficits. EXTREMITIES: No cyanosis, clubbing or edema. Results 12/05/16 06:50 12/05/16 06:50 Cardiac Enzymes 12/04/16 12/04/16 12/05/16 Range/Units 19:25 19:25 01:33 AST 235 H (17-59) U/L CK-MB (CK-2) 0.5 0.5 (0.0-2.4) ng/mL Troponin I <0.012 <0.012 (0.000-0.034) ng/mL 12/05/16 12/05/16 Range/Units 06:50 06:50 AST 159 H (17-59) U/L CK-MB (CK-2) 0.5 (0.0-2.4) ng/mL Troponin I <0.012 (0.000-0.034) ng/mL Coagulation 12/04/16 Range/Units 19:25 PT 11.1 (9.0-12.0) sec APTT 26.1 (22.0-30.0) sec CBC 12/04/16 12/05/16 Range/Units 19:25 06:50 WBC 10.2 6.3 (3.8-10.6) k/uL RBC 3.62 L 3.29 L (4.30-5.90) m/uL Hgb 12.9 L 11.7 L (13.0-17.5) gm/dL Hct 38.2 L 35.2 L (39.0-53.0) % Plt Count 102 L 73 L (150-450) k/uL Comprehensive Metabolic Panel 12/04/16 12/05/16 Range/Units 19:25 06:50 Sodium 143 139 (137-145) mmol/L Potassium 3.6 3.6 (3.5-5.1) mmol/L Chloride 107 110 H (98-107) mmol/L Carbon Dioxide 20 L 18 L (22-30) mmol/L BUN 4 L 3 L (9-20) mg/dL Creatinine 0.60 L 0.50 L (0.66-1.25) mg/dL Glucose 113 H 85 (74-99) mg/dL Calcium 9.5 8.0 L (8.4-10.2) mg/dL AST 235 H 159 H (17-59) U/L ALT 80 H 68 (21-72) U/L Alkaline Phosphatase 130 H 106 (38-126) U/L Total Protein 8.0 6.8 (6.3-8.2) g/dL Albumin 4.4 3.6 (3.5-5.0) g/dL Current Medications Generic Name Dose Route Start Last Admin Trade Name Freq PRN Reason Stop Dose Admin Albuterol Sulfate 2.5 mg 12/05/16 01:04 Ventolin Nebulized INHALATION RT-QID PRN Shortness Of Breath Sodium Chloride 1,000 mls @ 100 mls/hr 12/04/16 21:30 12/04/16 22:05 Saline 0.9% IV 100 mls/hr .Q10H [facility] Administration Esomeprazole Magnesium 20 mg/ 50 mls @ 100 mls/hr 12/05/16 09:00 Sodium Chloride IVPB DAILY RAD[facility] Lorazepam 1 mg 12/04/16 22:30 Ativan IV Q2HR PRN CIWA 8 or 9 Lorazepam 1 mg 12/04/16 22:30 Ativan IV Q1HR PRN CIWA 10 to 15 Lorazepam 2 mg 12/04/16 22:30 Ativan IV Q1HR PRN CIWA 16 or higher Morphine Sulfate 4 mg 12/04/16 22:26 12/05/16 07:19 Morphine Sulfate (Inj) IV 4 mg Q4HR PRN Administration Severe Pain Naloxone HCl 0.2 mg 12/04/16 22:26 Narcan IV Q2M PRN Opioid Reversal Nicotine 1 patch 12/05/16 01:47 12/05/16 02:41 Habitrol 21mg/24hr Patch TRANSDERM 1 patch DAILY RADHA Administration Ondansetron HCl 4 mg 12/04/16 22:26 Zofran IVP Q8HR PRN Nausea And Vomiting Thiamine HCl 100 mg 12/04/16 17:00 12/04/16 23:44 Vitamin B-1 PO Not Given BID@1200,1700 RADHA Intake and Output 12/04/16 12/05/16 12/05/16 22:59 06:59 14:59 Intake Total 900 Balance 900 Intake: IV 900 Sodium Chloride 0.9% 1, 900 000 ml @ 100 mls/hr IV . Q10H [facility] Rx#:[id number] Other: Voiding Method Toilet Toilet # Voids 3 Weight 84.822 kg 84.8 kg 12/05/16 06:50 12/05/16 06:50 EKG Interpretations (text) Sinus rhythm Assessment and Plan (1) Chest pain Status: Acute (2) Alcohol abuse Status: Acute Plan: Chest pain has some features of angina. Patient however had normal enzymes and EKGs. He is pain-free at this time. We'll get an echocardiogram to assess LV function. If LV function is normal, patient could be discharged home to have an outpatient stress test. However, patient may need GI evaluation because of abnormal liver enzymes and lipase. The possibility of gastritis and esophagitis to be considered.
[2016-12-05] MEDS ORDERED: ESOMEPRAZOLE 20 MG in SODIUM CHLORIDE 0.9% 50 ML IVPB SCH (09:00)
[2016-12-05] MEDS: THIAMINE 100 MG TAB PO SCH (14:19)
[2016-12-05 15:50] VITALS: BP 136/84; PULSE 69; RESP 15; TEMP 98.4
--- NOTE | 2016-12-05 17:11 | P.HPIM ---
History of Present Illness This is a 41-year-old gentleman with history of alcohol abuse who has been drinking heavily for the last 4 days, who was admitted to the hospital with complaints of chest pain and left arm pain Apparently he was drinking with his friend and complained having some heavy feeling in the chest as if somebody sitting on his chest with some left arm numbness and tingling. This started around noontime yesterday and lasted up to 1:00 last night. Denies any nausea or vomiting or diarrhea. He also has a tooth abscess and having some tooth pain. His EKG did not reveal any acute changes. His cardiac enzymes studies are negative. His liver enzymes are elevated which is secondary to acute alcoholic hepatitis which improved now and there is a nonspecific elevation of lipase. Cardiology is regarding outpatient stress test. Ultrasound of the abdomen did not show any gallbladder pathology. Did show steatohepatitis Review of Systems REVIEW OF SYSTEMS: CONSTITUTIONAL: No fever, no malaise, no fatigue. HEENT: No recent visual problems or hearing problems. Denied any sore throat. Tooth abscess and both insisors hours upper CARDIOVASCULAR: No orthopnea, PND, no palpitations, no syncope. PULMONARY: No shortness of breath, no cough, no hemoptysis. GASTROINTESTINAL: No diarrhea, no nausea, no vomiting, no abdominal pain. Normoactive bowel sounds. NEUROLOGICAL: No headaches, no weakness, no numbness. HEMATOLOGICAL: Denies any bleeding or petechiae. GENITOURINARY: Denies any burning micturition, frequency, or urgency. MUSCULOSKELETAL/RHEUMATOLOGICAL: Denies any joint pain, swelling, or any muscle pain. ENDOCRINE: Denies any polyuria or polydipsia. The rest of the 14-point review of systems is negative. Past Medical History Past Medical History: Asthma Additional Past Medical History / Comment(s): kidney stones History of Any Multi-Drug Resistant Organisms: None Reported Date of last positivie culture/infection: 12/09/2013 MDRO Source:: Right First Finger Past Surgical History: Appendectomy, Orthopedic Surgery Additional Past Surgical History / Comment(s): right hand surgery, right knee surgery Past Anesthesia/Blood Transfusion Reactions: No Reported Reaction Smoking Status: Current every day smoker - Past Family History Mother Family Medical History: Hypertension Father Additional Family Medical History / Comment(s): Prostate issues. Brain anyrsum Medications and Allergies Home Medications Medication Instructions Recorded Confirmed Type Albuterol Inhaler [Ventolin 2 puff INHALATION RT-QID PRN 02/14/15 12/04/16 History Inhaler] Multivitamin [Men's Multi-Vitamin] 1 tab PO DAILY 12/04/16 12/04/16 History Allergies Allergy/AdvReac Type Severity Reaction Status Date / Time No Known Allergies Allergy Verified 12/04/16 19:38 Physical Exam Vitals: Vital Signs Temp Pulse Pulse Pulse Resp BP BP 12/05/16 15:49 98.4 F 69 15 12/05/16 11:40 98.6 F 70 17 12/05/16 07:40 98.1 F 81 16 12/05/16 03:49 18 12/05/16 03:02 97.9 F 73 18 122/58 12/04/16 23:56 18 12/04/16 23:41 97.8 F 75 18 141/80 12/04/16 23:11 98.0 F 66 18 118/78 12/04/16 22:07 98.0 F 82 18 130/75 12/04/16 20:43 70 17 135/73 12/04/16 19:24 82 12/04/16 19:20 98.3 F 81 18 145/80 BP Pulse Ox 12/05/16 15:49 136/84 96 12/05/16 11:40 131/74 95 12/05/16 07:40 145/81 92 L 12/05/16 03:49 12/05/16 03:02 94 L 12/04/16 23:56 12/04/16 23:41 93 L 12/04/16 23:11 98 12/04/16 22:07 95 12/04/16 20:43 97 12/04/16 19:24 12/04/16 19:20 96 Intake and Output 12/05/16 12/05/16 12/05/16 06:59 14:59 22:59 Intake Total 900 Balance 900 Intake: IV 900 Sodium Chloride 0.9% 1, 900 000 ml @ 100 mls/hr IV . Q10H [facility] Rx#:[id number] Other: Voiding Method Toilet Toilet # Voids 3 Weight 84.8 kg Results CBC & Chem 7: 12/05/16 06:50 12/05/16 06:50 Labs: Abnormal Lab Results - Last 24 Hours (Table) 07/21/17 07/21/17 07/21/17 Range/Units 19:25 19:25 19:25 RBC 3.62 L (4.30-5.90) m/uL Hgb 12.9 L (13.0-17.5) gm/dL Hct 38.2 L (39.0-53.0) % MCV 105.5 H (80.0-100.0) fL MCH 35.6 H (25.0-35.0) pg Plt Count 102 L (150-450) k/uL D-Dimer 0.70 H (<0.60) mg/L FEU Chloride (98-107) mmol/L Carbon Dioxide 20 L (22-30) mmol/L BUN 4 L (9-20) mg/dL Creatinine 0.60 L (0.66-1.25) mg/dL Glucose 113 H (74-99) mg/dL Calcium (8.4-10.2) mg/dL AST 235 H (17-59) U/L ALT 80 H (21-72) U/L Alkaline Phosphatase 130 H (38-126) U/L Lipase 764 H (23-300) U/L 12/05/16 12/05/16 Range/Units 06:50 06:50 RBC 3.29 L (4.30-5.90) m/uL Hgb 11.7 L (13.0-17.5) gm/dL Hct 35.2 L (39.0-53.0) % MCV 107.1 H (80.0-100.0) fL MCH 35.5 H (25.0-35.0) pg Plt Count 73 L (150-450) k/uL D-Dimer (<0.60) mg/L FEU Chloride 110 H (98-107) mmol/L Carbon Dioxide 18 L (22-30) mmol/L BUN 3 L (9-20) mg/dL Creatinine 0.50 L (0.66-1.25) mg/dL Glucose (74-99) mg/dL Calcium 8.0 L (8.4-10.2) mg/dL AST 159 H (17-59) U/L ALT (21-72) U/L Alkaline Phosphatase (38-126) U/L Lipase 368 H (23-300) U/L Assessment and Plan Plan: 1 Chest pain probably due to gastritis patient is being discharged on Zantac. Twice a day patient will follow Dr. Guevara as an outpatient #2 to the abscess for which patient I was asked to follow-up with dental surgery as an outpatient and patient is being discharged on Augmentin. #3 alcohol abuse and acute alcoholic hepatitis with improved liver enzymes counseling was provided. #4 nicotine abuse counseling: Counseling was provided
--- NOTE | 2016-12-05 17:13 | P.DS ---
Providers Date of admission: 12/04/16 22:26 Attending physician: Dagmar Vargas Consults: 12/04/16 23:10 Consult Physician Urgent Consulting Provider: Yojana Young Consult Reason/Comments: Chest. Do you want consulting provider notified?: Yes, Notify in am Primary care physician: Ismael Warner [facility] Course: As per HPI Plan - Discharge Summary New Discharge Prescriptions: No Action Albuterol Inhaler [Ventolin Inhaler] 2 puff INHALATION RT-QID PRN PRN Reason: Shortness Of Breath Multivitamin [Men's Multi-Vitamin] 1 tab PO DAILY Discharge Medication List Albuterol Inhaler [Ventolin Inhaler] 2 puff INHALATION RT-QID PRN 02/14/15 [ History] Multivitamin [Men's Multi-Vitamin] 1 tab PO DAILY 12/04/16 [History] Follow up Appointment(s)/Referral(s): Timmy Guevara MD [Primary Care Provider] - 3 Days Patient Instructions/Handouts: Chest Pain (GEN) Discharge Disposition: HOME SELF-CARE
--- NOTE | 2016-12-07 08:09 | ECHOF ---
Referral Reason:chest pain MEASUREMENTS -------- HEIGHT: 182.9 cm WEIGHT: 84.4 kg BP: 145/81 RVIDd: 2.7 cm (< 3.3) IVSd: 1.1 cm (0.6 - 1.1) LVIDd: 5.4 cm (3.9 - 5.3) LVPWd: 1.1 cm (0.6 - 1.1) IVSs: 1.3 cm LVIDs: 3.8 cm LVPWs: 1.5 cm LA Diam: 3.5 cm (2.7 - 3.8) LAESV Index (A-L): 22.13 ml/m Ao Diam: 3.2 cm (2.0 - 3.7) AV Cusp: 2.3 cm (1.5 - 2.6) MV EXCURSION: 19.436 mm (> 18.000) MV EF SLOPE: 109 mm/s (70 - 150) EPSS: 0.7 cm MV E Wayne: 1.13 m/s MV DecT: 234 ms MV A Wayne: 0.81 m/s MV E/A Ratio: 1.40 FINDINGS -------- Sinus rhythm. This was a technically good study. The left ventricular size is normal. There is borderline concentric left ventricular hypertrophy. Overall left ventricular systolic function is normal with, an EF between 55 - 60 %. The right ventricle is normal in size. Normal LA size by volume 22+/-6 ml/m2. The right atrium is normal in size. The aortic valve is trileaflet and appears structurally normal. There is trace mitral regurgitation. The tricuspid valve appears structurally normal. Trace/mild (physiologic) pulmonic regurgitation. The aortic root size is normal. The inferior vena cava is mildly dilated. There is no pericardial effusion. CONCLUSIONS -------- 1. Sinus rhythm. 2. The tricuspid valve appears structurally normal. 3. Trace/mild (physiologic) pulmonic regurgitation. 4. The aortic root size is normal. 5. The inferior vena cava is mildly dilated. 6. There is no pericardial effusion. 7. This was a technically good study. 8. The left ventricular size is normal. 9. There is borderline concentric left ventricular hypertrophy. 10. Overall left ventricular systolic function is normal with, an EF between 55 - 60 %. 11. The right ventricle is normal in size. 12. Normal LA size by volume 22+/-6 ml/m2. 13. The aortic valve is trileaflet and appears structurally normal. 14. There is trace mitral regurgitation. TUB WASHER: Nieves Felix RDCS
== END 2016-12-05 16:05 | disposition home or self-care (01) ==
LOC: EC 19:10 → 3OBS 22:26
PROVIDERS: ADMIT Internal Medicine; ATTEND Internal Medicine
DX: R07.9 Chest pain, unspecified (principal); K70.10 Alcoholic hepatitis without ascites; F10.10 Alcohol abuse, uncomplicated; D69.6 Thrombocytopenia, unspecified; R10.13 Epigastric pain; M79.602 Pain in left arm; R20.0 Anesthesia of skin; R20.2 Paresthesia of skin; K04.7 Periapical abscess without sinus; R79.89 Other specified abnormal findings of blood chemistry; F17.200 Nicotine dependence, unspecified, uncomplicated; J45.909 Unspecified asthma, uncomplicated; Z82.49 Family history of ischemic heart disease and other diseases of the circulatory system; Z86.14 Personal history of Methicillin resistant Staphylococcus aureus infection
CPT/HCPCS: 96361 ×5; 96372; 96376 ×2; 96374; 99285; 36415; 93005; 93306; 85379; 83880; 80053 ×2; 82550 ×2; 82553 ×2; 83690 ×2; 83735; 84484 ×2; 85025 ×2; 85610; 85730; 80320; 71020; 76705; G0378 ×2; S4990; J2270 ×2; J3411

== ENCOUNTER 2016-12-24 01:02 | Observation (INO) | payer OTHER ==
[2016-12-24] MEDS ORDERED: SODIUM CHLORIDE 0.9% 1,000 ML IV STA ×2 (01:25)
[2016-12-24] MEDS ORDERED: MAGNESIUM SULFATE-D5W PMX 1 GM in DEXTROSE/WATER 1 100ML.BAG IVPB STA (01:25)
[2016-12-24] MEDS ORDERED: SODIUM CHLORIDE 0.9% 500 ML IV STA (01:25)
[2016-12-24] MEDS ORDERED: LORazepam 2 MG/ML SYRINGE IV PRN ×3 (01:25)
[2016-12-24] MEDS ORDERED: THIAMINE 100 MG/ML 2 ML VIAL IM STA (01:25)
--- NOTE | 2016-12-24 01:28 | ED ---
General Adult HPI - General Chief complaint: Chest Pain Stated complaint: Chest Pain Time Seen by Provider: 12/24/16 01:09 Source: patient, EMS, RN notes reviewed, old records reviewed Mode of arrival: EMS Limitations: no limitations - History of Present Illness Initial comments: This is a 5-year-old male here for evaluation. This patient presents in regards to multiple complaints including tooth pain chest pain body pain. Patient states he was drinking away the pain today. He was doing some work in [place] [employer] drinking after work. Otherwise patient's poor strain secondary to severe alcohol intoxication. - Related Data Home Medications Medication Instructions Recorded Confirmed Albuterol Inhaler [Ventolin 2 puff INHALATION RT-QID PRN 02/14/15 12/04/16 Inhaler] Multivitamin [Men's Multi-Vitamin] 1 tab PO DAILY 12/04/16 12/04/16 Allergies Allergy/AdvReac Type Severity Reaction Status Date / Time No Known Allergies Allergy Verified 12/24/16 01:03 Review of Systems ROS Statement: Those systems with pertinent positive or pertinent negative responses have been documented in the HPI. ROS Other: All systems not noted in ROS Statement are negative. Past Medical History Past Medical History: Asthma Additional Past Medical History / Comment(s): kidney stones History of Any Multi-Drug Resistant Organisms: None Reported Date of last positivie culture/infection: 12/09/2013 MDRO Source:: Right First Finger Past Surgical History: Appendectomy, Orthopedic Surgery Additional Past Surgical History / Comment(s): right hand surgery, right knee surgery Past Anesthesia/Blood Transfusion Reactions: No Reported Reaction Past Psychological History: No Psychological Hx Reported Smoking Status: Current every day smoker - Past Family History Mother Family Medical History: Hypertension Father Additional Family Medical History / Comment(s): Prostate issues. Brain anyrsum General Exam Limitations: no limitations General appearance: alert, appears intoxicated, lethargic, in distress Head exam: Present: atraumatic, normocephalic, normal inspection Eye exam: Present: normal appearance, PERRL, EOMI. Absent: scleral icterus, conjunctival injection, periorbital swelling ENT exam: Present: normal exam, mucous membranes moist Neck exam: Present: normal inspection. Absent: tenderness, meningismus, lymphadenopathy Respiratory exam: Present: normal lung sounds bilaterally. Absent: respiratory distress, wheezes, rales, rhonchi, stridor Cardiovascular Exam: Present: regular rate, normal rhythm, normal heart sounds. Absent: systolic murmur, diastolic murmur, rubs, gallop, clicks GI/Abdominal exam: Present: soft, normal bowel sounds. Absent: distended, tenderness, guarding, rebound, rigid Extremities exam: Present: normal inspection, full ROM, normal capillary refill. Absent: tenderness, pedal edema, joint swelling, calf tenderness Back exam: Present: normal inspection Neurological exam: Present: alert, oriented X3, CN II-XII intact Psychiatric exam: Present: normal affect, normal mood Skin exam: Present: warm, dry, intact, normal color. Absent: rash Course Vital Signs 12/24/16 12/24/16 01:03 02:31 Temperature 97.9 F Pulse Rate 92 90 Respiratory 18 16 Rate Blood Pressure 123/69 142/60 O2 Sat by Pulse 99 98 Oximetry - Reevaluation(s) Reevaluation #1: 12/24/16 01:28 Medical records are reviewed as well as prior hospitalizations EKG Findings - EKG Comments: EKG Findings:: EKG shows normal sinus rhythm 90, AR 126 and QRS 92, QTC 459 Medical Decision Making - Medical Decision Making 41 male the ER first evaluation regarding body pain pain and aches, severe alcohol intoxication. - Lab Data Result diagrams: 12/24/16 01:40 12/24/16 01:40 Lab Results 12/24/16 12/24/16 12/24/16 Range/Units 01:40 01:40 01:40 WBC 9.6 (3.8-10.6) k/uL RBC 3.25 L (4.30-5.90) m/uL Hgb 11.6 L (13.0-17.5) gm/dL Hct 35.3 L (39.0-53.0) % MCV 108.7 H (80.0-100.0) fL MCH 35.7 H (25.0-35.0) pg MCHC 32.8 (31.0-37.0) g/dL RDW 13.6 (11.5-15.5) % Plt Count 120 L D (150-450) k/uL Neutrophils % 64 % Lymphocytes % 23 % Monocytes % 7 % Eosinophils % 2 % Basophils % 1 % Neutrophils # 6.1 (1.3-7.7) k/uL Lymphocytes # 2.2 (1.0-4.8) k/uL Monocytes # 0.7 (0-1.0) k/uL Eosinophils # 0.2 (0-0.7) k/uL Basophils # 0.1 (0-0.2) k/uL Macrocytosis Moderate PT 11.3 (9.0-12.0) sec INR 1.1 (<1.2) Sodium 145 (137-145) mmol/L Potassium 3.1 L (3.5-5.1) mmol/L Chloride 112 H (98-107) mmol/L Carbon Dioxide 18 L (22-30) mmol/L Anion Gap 15 mmol/L BUN <2 L (9-20) mg/dL Creatinine 0.50 L (0.66-1.25) mg/dL Est GFR (MDRD) Af Amer >60 (>60 ml/min/1.73 sqM) Est GFR (MDRD) Non-Af >60 (>60 ml/min/1.73 sqM) Glucose 105 H (74-99) mg/dL Calcium 8.7 (8.4-10.2) mg/dL Phosphorus 4.8 H (2.5-4.5) mg/dL Magnesium 1.6 (1.6-2.3) mg/dL Total Bilirubin 0.8 (0.2-1.3) mg/dL AST 154 H (17-59) U/L ALT 62 (21-72) U/L Alkaline Phosphatase 136 H (38-126) U/L Total Protein 6.6 (6.3-8.2) g/dL Albumin 3.4 L (3.5-5.0) g/dL Lipase 796 H (23-300) U/L Serum Alcohol 469 mg/dL Disposition Clinical Impression: Alcohol abuse, Alcohol intoxication, Chest pain, Pancreatitis, acute Disposition: ADMITTED IP TO THIS HOSP Condition: Fair Referrals: Timmy Guevara MD [Primary Care Provider] - 1-2 days
[2016-12-24 01:50] LABS: Basophils # (A) 0.1 k/uL (0-0.2); Basophils % (A) 1 %; CH 35.8; CHCM 33.1; Eosinophils # (A) 0.2 k/uL (0-0.7); Eosinophils % (A) 2 %; HCT 35.3 % (39.0-53.0); HDW 1.96; HGB 11.6 gm/dL (13.0-17.5); Luc # (Auto) 0.31; Luc % (Auto) 3; Lymphocytes # (A) 2.2 k/uL (1.0-4.8); Lymphocytes % (A) 23 %; MCH 35.7 pg (25.0-35.0); MCHC 32.8 g/dL (31.0-37.0); MCV 108.7 fL (80.0-100.0); Macrocytosis Moderate; Mean Platelet Volume 10.2; Monocytes # (A) 0.7 k/uL (0-1.0); Monocytes % (A) 7 %; Neutrophils # (A) 6.1 k/uL (1.3-7.7); Neutrophils % (A) 64 %; RBC 3.25 m/uL (4.30-5.90); RDW 13.6 % (11.5-15.5); WBC 9.6 k/uL (3.8-10.6); WBC (Perox) 10.03
[2016-12-24 01:54] LABS: INR 1.1 (<1.2); Prothrombin Time 11.3 sec (9.0-12.0)
[2016-12-24 02:02] LABS: ALT 62 U/L (21-72); AST 154 U/L (17-59); Alkaline Phosphatase 136 U/L (38-126); Anion Gap 15 mmol/L; Blood Urea Nitrogen <2 mg/dL (9-20); Calcium 8.7 mg/dL (8.4-10.2); Carbon Dioxide 18 mmol/L (22-30); Chloride 112 mmol/L (98-107); Glucose 105 mg/dL (74-99); Magnesium 1.6 mg/dL (1.6-2.3); Non-African American GFR(MDRD) >60 (>60 ml/min/1.73 sqM); Phosphorous 4.8 mg/dL (2.5-4.5); Potassium 3.1 mmol/L (3.5-5.1); Sodium 145 mmol/L (137-145); Total Bilirubin 0.8 mg/dL (0.2-1.3); Total Protein 6.6 g/dL (6.3-8.2)
[2016-12-24 02:13] LABS: Alcohol 469 mg/dL
[2016-12-24] MEDS ORDERED: SODIUM CHLORIDE 0.9% 1,000 ML IV ONE (02:31)
[2016-12-24] MEDS: POTASSIUM CHLORIDE 10 MEQ, LIDOCAINE 2% INJ 10 MG in SODIUM CHLORIDE 0.9% 100 ML IVPB SCH ×4 (02:41→05:57)
[2016-12-24 03:20] VITALS: RESP 18
[2016-12-24 03:23] VITALS: BMI 24.4
[2016-12-24] MEDS: NICOTINE 14MG/24HR PATCH TRANSDERM SCH ×2 (04:19→09:59)
[2016-12-24] MEDS ORDERED: HYDROcodone/APAP 5-325MG 1 EACH TAB PO PRN (06:31)
[2016-12-24] MEDS ORDERED: ENOXAPARIN 40 MG/0.4 ML SYRINGE SQ SCH (09:00)
[2016-12-24 15:37] VITALS: BP 140/72; PULSE 70; TEMP 97.9
[2016-12-24] MEDS ORDERED: THIAMINE 100 MG TAB PO SCH (17:00)
--- NOTE | 2016-12-24 17:58 | P.HPIM ---
History of Present Illness Patient is a 41-year-old male came in to the hospital intoxicated on alcohol. Patient was seen during his last hospitalization for alcohol intoxication. Patient was monitored for alcohol withdrawals, patient did not have any significant withdraws was discharged on the same day at that time. Patient states he has toothache patient had to the abscesses during his last hospitalization his tooth was removed has a dry socket in that area. Because of the continued pain he started drinking again about couple days and because of uncontrolled pain patient came to the hospital. I had extensive discussion with the patient nothing much can be offered as long as he quits drinking. And my suspicion that he is going to have alcohol withdrawals is low since he did not have any withdraws during his last hospitalization and he started drinking only couple days as per the patient. Patient was extensively counseled will be discharged on pain medication for next 2-3 days to follow with primary care physician and dentist as an outpatient. I'll give 5 days of Augmentin. I but I do not believe antibiotics will benefit him much. Patient was actually admitted for possibility of pancreatitis although patient does not have any symptoms of acute otitis at this point of time patient will be started on diet patient has minimally elevated lipase not high enough to say pancreatitis and this elevation is secondary to alcohol abuse. Review of Systems REVIEW OF SYSTEMS: CONSTITUTIONAL: No fever, no malaise, no fatigue. HEENT: No recent visual problems or hearing problems. Denied any sore throat. CARDIOVASCULAR: No chest pain, orthopnea, PND, no palpitations, no syncope. PULMONARY: No shortness of breath, no cough, no hemoptysis. GASTROINTESTINAL: No diarrhea, no nausea, no vomiting, no abdominal pain. Normoactive bowel sounds. NEUROLOGICAL: No headaches, no weakness, no numbness. HEMATOLOGICAL: Denies any bleeding or petechiae. GENITOURINARY: Denies any burning micturition, frequency, or urgency. MUSCULOSKELETAL/RHEUMATOLOGICAL: Denies any joint pain, swelling, or any muscle pain. ENDOCRINE: Denies any polyuria or polydipsia. The rest of the 14-point review of systems is negative. Past Medical History Past Medical History: Asthma, Pneumonia Additional Past Medical History / Comment(s): kidney stones History of Any Multi-Drug Resistant Organisms: None Reported Date of last positivie culture/infection: 12/09/2013 MDRO Source:: Right First Finger Past Surgical History: Appendectomy, Orthopedic Surgery Additional Past Surgical History / Comment(s): right hand surgery, right knee surgery Past Anesthesia/Blood Transfusion Reactions: No Reported Reaction Past Psychological History: No Psychological Hx Reported Smoking Status: Current every day smoker Past Alcohol Use History: Daily Past Drug Use History: Marijuana - Past Family History Mother Family Medical History: Hypertension Father Additional Family Medical History / Comment(s): Prostate issues. Brain anyrsum Medications and Allergies Allergies Allergy/AdvReac Type Severity Reaction Status Date / Time No Known Allergies Allergy Verified 12/24/16 07:34 Physical Exam Vitals: Vital Signs Temp Pulse Pulse Resp BP BP Pulse Ox 12/24/16 15:36 97.9 F 70 18 140/72 96 12/24/16 12:00 78 18 12/24/16 11:39 98.1 F 78 18 116/62 93 L 12/24/16 08:00 97.7 F 83 18 96/58 92 L 12/24/16 03:52 92 18 12/24/16 03:19 97.9 F 82 18 113/67 93 L 12/24/16 03:02 97.9 F 80 16 128/70 98 12/24/16 02:31 90 16 142/60 98 12/24/16 01:03 97.9 F 92 18 123/69 99 Intake and Output 12/24/16 12/24/16 12/24/16 06:59 14:59 22:59 Intake Total 800 360 Balance 800 360 Intake: Intake, IV Titration 700 Amount Potassium Chloride 10 meq 200 Lidocaine 2% Inj 10 mg In Sodium Chloride 0.9% 100 ml @ 100 mls/hr IVPB Q1HR [facility] Rx#:[id number] Sodium Chloride 0.9% 1, 500 000 ml @ 100 mls/hr IV . Q10H ONE Rx#:[id number] Oral 100 360 Other: Voiding Method Toilet Toilet # Voids 2 Weight 81.647 kg PHYSICAL EXAMINATION: GENERAL: The patient is alert and oriented x3, not in any acute distress. Well developed, well nourished. HEENT: Pupils are round and equally reacting to light. EOMI. No scleral icterus. No conjunctival pallor. Normocephalic, atraumatic. No pharyngeal erythema. No thyromegaly. Patient upper inside was removed patient does have poor dentition. No abscess was appreciated clinically. CARDIOVASCULAR: S1 and S2 present. No murmurs, rubs, or gallops. PULMONARY: Chest is clear to auscultation, no wheezing or crackles. ABDOMEN: Soft, nontender, nondistended, normoactive bowel sounds. No palpable organomegaly. MUSCULOSKELETAL: No joint swelling or deformity. EXTREMITIES: No cyanosis, clubbing, or pedal edema. NEUROLOGICAL: Gross neurological examination did not reveal any focal deficits. SKIN: No rashes. Results CBC & Chem 7: 12/24/16 01:40 12/24/16 01:40 Labs: Abnormal Lab Results - Last 24 Hours (Table) 12/24/16 12/24/16 Range/Units 01:40 01:40 RBC 3.25 L (4.30-5.90) m/uL Hgb 11.6 L (13.0-17.5) gm/dL Hct 35.3 L (39.0-53.0) % MCV 108.7 H (80.0-100.0) fL MCH 35.7 H (25.0-35.0) pg Plt Count 120 L D (150-450) k/uL Potassium 3.1 L (3.5-5.1) mmol/L Chloride 112 H (98-107) mmol/L Carbon Dioxide 18 L (22-30) mmol/L BUN <2 L (9-20) mg/dL Creatinine 0.50 L (0.66-1.25) mg/dL Glucose 105 H (74-99) mg/dL Phosphorus 4.8 H (2.5-4.5) mg/dL AST 154 H (17-59) U/L Alkaline Phosphatase 136 H (38-126) U/L Albumin 3.4 L (3.5-5.0) g/dL Lipase 796 H (23-300) U/L Thrombosis Risk Factor Assmnt - Choose All That Apply Any of the Below Risk Factors Present?: No Other Risk Factors: No Other congenital or acquired thrombophilia - If yes, enter type in comment: No Thrombosis Risk Factor Assessment Level: Very Low Risk Assessment and Plan Plan: #1 alcohol abuse: Neck since her counseling was provided and the chance of him alcohol withdrawal is low due to above-mentioned reasons. And I do not believe patient will quit alcohol anyways because of that reason nothing much can be offered to him and patient will be discharged today. #2 poor dentition with possibility of tooth abscess for which patient will be discharged on 5 days of Augmentin to follow with dentist as an outpatient. #3 possible mild gastritis for which patient will be discharged on Prilosec. I do not believe patient has pancreatitis. Tight will be addressed before discharge. #4 Nicotine abuse: Counseling was provided
--- NOTE | 2016-12-24 17:58 | P.DS ---
Providers Date of admission: 12/24/16 02:31 Attending physician: Wlado Leblanc Primary care physician: Ismael Warner [facility] Course: Please refer to my HPI for further details Patient Condition at Discharge: Fair Plan - Discharge Summary New Discharge Prescriptions: New HYDROcodone/APAP 7.5-325MG [[place] 7.5-325] 1 tab PO Q4H PRN #10 tab PRN Reason: Pain Amoxic-Pot Clav 875-125Mg [Augmentin 875-125] 1 tab PO Q12HR #10 tablet Omeprazole [PriLOSEC] 40 mg PO AC-BRKFST #14 capsule.dr Discharge Medication List Amoxic-Pot Clav 875-125Mg [Augmentin 875-125] 1 tab PO Q12HR #10 tablet [Rx] HYDROcodone/APAP 7.5-325MG [[place] 7.5-325] 1 tab PO Q4H PRN #10 tab 12/24/16 [Rx ] Omeprazole [PriLOSEC] 40 mg PO AC-BRKFST #14 capsule. 12/24/16 [Rx] Follow up Appointment(s)/Referral(s): Timmy Guevara MD [Primary Care Provider] - 1-2 days Discharge Disposition: HOME SELF-CARE
== END 2016-12-24 16:09 | disposition home or self-care (01) ==
LOC: EC 01:02 → 3OBS 02:31
PROVIDERS: ADMIT Hospitalist; ATTEND Hospitalist
DX: F10.129 Alcohol abuse with intoxication, unspecified (principal); K08.89 Other specified disorders of teeth and supporting structures; R07.9 Chest pain, unspecified; R52 Pain, unspecified; J45.909 Unspecified asthma, uncomplicated; F17.200 Nicotine dependence, unspecified, uncomplicated; Z82.49 Family history of ischemic heart disease and other diseases of the circulatory system; Y90.8 Blood alcohol level of 240 mg/100 ml or more
CPT/HCPCS: 99285; 96365 ×2; 96372 ×3; 96375; 82075; 36415; 80053; 83690; 83735; 84100; 85025; 85610; 80320; G0378; S4990; J2001; J2060; J3411; J3480; J1650; J3475

== ENCOUNTER 2017-03-02 17:17 | Emergency (ER) | payer OTHER ==
[2017-03-02] MEDS ORDERED: RX INFO: IV CONTRAST WAS GIVEN 1 EACH MISC MISCELLANE PRN (17:20)
[2017-03-02] MEDS ORDERED: SODIUM CHLORIDE 0.9% 1,000 ML IV STA (17:20)
[2017-03-02 17:37] VITALS: TEMP 98.5
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
[2017-03-02 17:47] LABS: Basophils # (A) 0.2 k/uL (0-0.2); Basophils % (A) 1 %; CH 36.9; CHCM 32.3; Eosinophils # (A) 0.2 k/uL (0-0.7); Eosinophils % (A) 2 %; HCT 39.6 % (39.0-53.0); HDW 1.89; HGB 12.7 gm/dL (13.0-17.5); Luc # (Auto) 0.31; Luc % (Auto) 2; Lymphocytes # (A) 2.1 k/uL (1.0-4.8); Lymphocytes % (A) 13 %; MCH 36.8 pg (25.0-35.0); Macrocytosis Marked; Monocytes # (A) 1.5 k/uL (0-1.0); Monocytes % (A) 9 %; Neutrophils # (A) 11.5 k/uL (1.3-7.7); Neutrophils % (A) 73 %; RBC 3.44 m/uL (4.30-5.90); RDW 13.9 % (11.5-15.5); WBC 15.8 k/uL (3.8-10.6); WBC (Perox) 16.53
[2017-03-02 17:56] LABS: ALT 38 U/L (21-72); AST 153 U/L (17-59); Alkaline Phosphatase 208 U/L (38-126); Amylase 47 U/L (30-110); Anion Gap 15 mmol/L; Blood Urea Nitrogen 2 mg/dL (9-20); Carbon Dioxide 20 mmol/L (22-30); Chloride 109 mmol/L (98-107); Glucose 126 mg/dL (74-99); INR 1.2 (<1.2); Non-African American GFR(MDRD) >60 (>60 ml/min/1.73 sqM); Partial Thromboplastin Time 28.1 sec (22.0-30.0); Potassium 3.2 mmol/L (3.5-5.1); Prothrombin Time 11.8 sec (9.0-12.0); Sodium 144 mmol/L (137-145); Total Bilirubin 1.4 mg/dL (0.2-1.3); Total Protein 7.5 g/dL (6.3-8.2)
--- NOTE | 2017-03-02 18:01 | XR ---
EXAMINATION TYPE: XR chest 1V portable DATE OF EXAM: 03/02/2017 COMPARISON: Prior chest x-ray 12/04/2016 HISTORY: Trauma TECHNIQUE: Single frontal view of the chest is obtained. FINDINGS: There is no focal air space opacity, pleural effusion, or pneumothorax seen. The cardiac silhouette size is within normal limits. There are overlying cardiac leads The osseous structures ar e intact. IMPRESSION: No acute process.
--- NOTE | 2017-03-02 18:02 | XR ---
Right knee HISTORY: Trauma and pain 3 views of the right knee correlated to prior 09/25/2014 There is no interval change. IMPRESSION: No acute fracture or dislocation.
[2017-03-02 18:03] LABS: RBC Morphology Normal
--- NOTE | 2017-03-02 18:03 | XR ---
AP pelvis HISTORY: Trauma There is frontal view of the pelvis on 2 images Bone mineralization, joint spaces and alignment are maintained IMPRESSION: No acute fracture or dislocation.
[2017-03-02 18:04] LABS: Polychromasia Present
[2017-03-02 18:09] LABS: Alcohol 363 mg/dL
[2017-03-02 18:10] LABS: Creatine Kinase 45 U/L (55-170)
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
[2017-03-02 18:22] LABS: Creatine Kinase MB 0.3 ng/mL (0.0-2.4); Troponin I <0.012 ng/mL (0.000-0.034)
[2017-03-02] MEDS ORDERED: POTASSIUM CHLORIDE ER 20 MEQ TAB.ER PO STA (18:28)
[2017-03-02 18:31] LABS: Appearance,Urine Clear (Clear); Bilirubin,Urine Negative (Negative); Glucose,Urine (UA) Negative (Negative); Ketones,Urine Negative (Negative); Leukocyte Esterase,Urine Negative (Negative); Nitrite,Urine Negative (Negative); PH, Urine 6.5 (5.0-8.0); Protein,Urine Negative (Negative); Specific Gravity,Urine 1.006 (1.001-1.035); Urobilinogen,Urine <2.0 mg/dL (<2.0)
[2017-03-02 18:32] LABS: Amorphous Sediment,Urine Rare /hpf; Mucus,Urine Rare /hpf; Particle Count 111; RBC,Urine <1 /hpf (0-5); Squamous Epithelial Cell,Urine 1 /hpf (0-4); UA Billing (MACRO vs. MICRO) MICRO; WBC,Urine 1 /hpf (0-5)
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
[2017-03-02] MEDS ORDERED: NICOTINE 21MG/24HR PATCH TRANSDERM STA (19:19)
[2017-03-02] MEDS ORDERED: ACETAMINOPHEN TAB 500 MG TAB PO STA (22:28)
[2017-03-02] MEDS ORDERED: ALBUTEROL NEBULIZED 2.5 MG/3 ML INHALATION STA (22:56)
[2017-03-02] MEDS ORDERED: IPRATROPIUM 0.5 MG/2.5 ML NEBU INHALATION STA (22:56)
[2017-03-02] MEDS ORDERED: IPRATROPIUM-ALBUTEROL 3 ML NEB INHALATION STA (22:59)
--- NOTE | 2017-03-03 00:39 | CDI ---
Dear Akin Naqvi DO: Please do addendum Disposition of the patient. Thank you, Chiqui Mo, [employer] Superintendent. If you have any questions, please contact Optical Mechanic at [phone]. [email or web address]
[2017-03-03] MEDS ORDERED: ETODOLAC 400 MG TAB PO STA (02:22)
[2017-03-03 05:25] VITALS: RESP 18
[2017-03-03 06:30] VITALS: BP 99/56; PULSE 79
[2017-03-03] MEDS ORDERED: ETODOLAC 400 MG TAB PO SCH (09:00)
== END 2017-03-03 07:18 | disposition home or self-care (01) ==
LOC: EC 17:17
DX: S83.91XA Sprain of unspecified site of right knee, initial encounter (principal); S16.1XXA Strain of muscle, fascia and tendon at neck level, initial encounter; S20.219A Contusion of unspecified front wall of thorax, initial encounter; S30.1XXA Contusion of abdominal wall, initial encounter; S09.90XA Unspecified injury of head, initial encounter; J98.01 Acute bronchospasm; F10.129 Alcohol abuse with intoxication, unspecified; E87.6 Hypokalemia; D72.829 Elevated white blood cell count, unspecified; D64.9 Anemia, unspecified; R06.2 Wheezing; R94.5 Abnormal results of liver function studies; F17.200 Nicotine dependence, unspecified, uncomplicated; Z53.8 Procedure and treatment not carried out for other reasons; Z98.890 Other specified postprocedural states; Z90.49 Acquired absence of other specified parts of digestive tract; V09.20XA Pedestrian injured in traffic accident involving unspecified motor vehicles, initial encounter; Y93.01 Activity, walking, marching and hiking; Y92.410 Unspecified street and highway as the place of occurrence of the external cause
CPT/HCPCS: 99285; 96360; 96361 ×7; 82075; 36415; 94640; 86900; 86901; 80053; 82150; 82550; 82553; 83605; 83690; 84484; 85025; 85610; 85730; 86850; 81001; 80306; 80320; 71010; 72170; 73562; 72125; 70450; 71260; 74177; S4990; Q9967; 93005

== ENCOUNTER 2017-05-28 14:51 | Inpatient (IN) | payer OTHER ==
[2017-05-28] MEDS ORDERED: ONDANSETRON 4 MG/2 ML VIAL IVP STA (15:03)
[2017-05-28] MEDS ORDERED: PANTOPRAZOLE 40 MG/10 ML VIAL IVP STA (15:03)
[2017-05-28] MEDS ORDERED: SODIUM CHLORIDE 0.9% 500 ML IV STA (15:03)
[2017-05-28] MEDS ORDERED: HYDROmorphone 2 MG/ML 1 ML SYRINGE IVP STA (15:03)
[2017-05-28] MEDS ORDERED: SODIUM CHLORIDE 0.9% 1,000 ML IV STA (15:03)
--- NOTE | 2017-05-28 15:13 | ED ---
General Adult HPI - General Chief complaint: Abdominal Pain Stated complaint: Abd Pain Time Seen by Provider: 05/28/17 14:53 Source: patient, RN notes reviewed, old records reviewed Mode of arrival: EMS Limitations: no limitations - History of Present Illness Initial comments: Chief complaint and history of present illness; this is a 42-year-old male with a chronic alcoholic. He states he drank 4 beers last night and now his pain for. Patient has right upper quadrant pain. Nausea and vomiting. He states he only has diarrhea because on lactulose to keep his ammonia level down. Patient reports the last time he drank was approximately one week ago and the similar symptoms happen at that time. - Related Data Home Medications Medication Instructions Recorded Confirmed Magnesium Oxide [Magox 400] 400 mg PO BID 05/28/17 05/28/17 Potassium Chloride [Klor-Con 20] 40 meq PO DAILY 05/28/17 05/28/17 Rifaximin [Xifaxan] 550 mg PO BID 05/28/17 05/28/17 Allergies Allergy/AdvReac Type Severity Reaction Status Date / Time No Known Allergies Allergy Verified 05/28/17 15:14 Review of Systems ROS Statement: Those systems with pertinent positive or pertinent negative responses have been documented in the HPI. Review of systems; patient denies any headache he is mildly teary. Complains of nausea and vomiting with right upper quadrant pain. Denies chest pain. Tender with mild palpation in the right upper quadrant. Loose stools constant. Denies any neuro deficits no seizures. All systems were reviewed past medical problems significant for asthma, pneumonia kidney stones and alcoholism. The patient has had paracentesis proximally one month ago. At that time he had to be transferred to another hospital for the procedure. His surgeries include appendectomy and right hand surgery. Family history includes multiple cancers of which she can't remember. Also multiple alcoholics. Patient denies ALLERGIES. Patient continues to smoke. Strongly encouraged to stop. The patient reports she's not alcoholic. ROS Other: All systems not noted in ROS Statement are negative. Past Medical History Past Medical History: Asthma, Pneumonia Additional Past Medical History / Comment(s): kidney stones History of Any Multi-Drug Resistant Organisms: None Reported Date of last positivie culture/infection: 12/09/2013 MDRO Source:: Right First Finger Past Surgical History: Appendectomy, Orthopedic Surgery Additional Past Surgical History / Comment(s): right hand surgery, right knee surgery Past Anesthesia/Blood Transfusion Reactions: No Reported Reaction Past Psychological History: No Psychological Hx Reported Smoking Status: Current every day smoker Past Alcohol Use History: Daily Past Drug Use History: Marijuana - Past Family History Mother Family Medical History: Hypertension Father Additional Family Medical History / Comment(s): Prostate issues. Brain anyrsum General Exam - General Exam Comments Initial Comments: General: The patient is awake and alert, lying of right upper quadrant pain, nausea and vomiting. Patient reports she drank alcohol last night. His breath alcohol today was 0.198. No signs temp 98.6, pulse 83, respiratory rate 18. Blood pressure 123/64 with a pulse ox 90% room air Eye: Pupils are equal, round and reactive to light, extra-ocular movements are intact ; there is normal conjunctiva bilaterally. Sclera, mildly icteric. Ears, nose, mouth and throat: There are moist mucous membranes and no oral lesions. Neck: The neck is supple, there is no tenderness . Cardiovascular: There is a regular rate and rhythm. No murmur, rub or gallop is appreciated. Respiratory: Lungs are clear to auscultation, respirations are non-labored, breath sounds are equal. No wheezes, stridor, rales, or rhonchi. Gastrointestinal: On Tanner guarding with mild palpation over the right upper quadrant. No ascites appreciated on examination. Normal active bowel sounds Back: Now right flank area discomfort. Musculoskeletal: Normal ROM, no tenderness, There is no pedal edema. There is no calf tenderness or swelling. Sensation intact. Pulses equal bilaterally 2+. Neurological: No neuro deficits. No complaint of any weakness. No focal or lateralizing findings noted. Skin: Mildly jaundiced skin Psychiatric: Cooperative, appropriate mood & affect, normal judgment. Limitations: no limitations Course Vital Signs 05/28/17 05/28/17 14:54 17:04 Temperature 98 F 96.9 F L Pulse Rate 81 78 Respiratory 16 14 Rate Blood Pressure 123/64 122/58 O2 Sat by Pulse 98 98 Oximetry Medical Decision Making - Medical Decision Making Medical decision making; the patient come in because of excess alcohol use last night and pain to his liver area. Epigastric area. Nausea no vomiting. Mildly icteric eyes with mildly jaundiced skin. History of liver disease from chronic alcoholism. Labs show a white count of 11.7 hemoglobin 9.9 hematocrit 30.3, PT is elevated INR is 1.6. Sodium is 147 chloride 109. Potassium 3.9. Glucose 131. BUN 4 creatinine 0.66. GFR greater than 60. Total bilirubin elevated 3.4. Lipase elevated at 581. Amylase normal at 75. Plasma lactic acid normal at 1.8. Ammonia level normal at 20. Urine clean no signs of infection. Tray of the abdomen done 2 views and reviewed by radiologist his impression is findings could represent an ileus or enteritis rather than bowel obstruction, correlate clinically and follow-up is indicated. As read by Dr. Anastasia eLe she'll be admitted for chronic alcohol abuse and acute pancreatitis - Lab Data Result diagrams: 05/28/17 15:29 05/28/17 15:29 Lab Results 05/28/17 05/28/17 05/28/17 Range/Units 15:24 15:29 15:29 WBC (3.8-10.6) k/uL RBC (4.30-5.90) m/uL Hgb (13.0-17.5) gm/dL Hct (39.0-53.0) % MCV (80.0-100.0) fL MCH (25.0-35.0) pg MCHC (31.0-37.0) g/dL RDW (11.5-15.5) % Plt Count (150-450) k/uL Neutrophils % % Lymphocytes % % Monocytes % % Eosinophils % % Basophils % % Neutrophils # (1.3-7.7) k/uL Lymphocytes # (1.0-4.8) k/uL Monocytes # (0-1.0) k/uL Eosinophils # (0-0.7) k/uL Basophils # (0-0.2) k/uL Macrocytosis PT (9.0-12.0) sec INR (<1.2) APTT (22.0-30.0) sec Sodium 147 H (137-145) mmol/L Potassium 3.9 (3.5-5.1) mmol/L Chloride 109 H (98-107) mmol/L Carbon Dioxide 24 (22-30) mmol/L Anion Gap 14 mmol/L BUN 4 L (9-20) mg/dL Creatinine 0.66 (0.66-1.25) mg/dL Est GFR (MDRD) Af Amer >60 (>60 ml/min/1.73 sqM) Est GFR (MDRD) Non-Af >60 (>60 ml/min/1.73 sqM) Glucose 131 H (74-99) mg/dL Plasma Lactic Acid Balaji 1.8 (0.7-2.0) mmol/L Calcium 9.4 (8.4-10.2) mg/dL Total Bilirubin 3.4 H (0.2-1.3) mg/dL AST 81 H (17-59) U/L ALT 41 (21-72) U/L Alkaline Phosphatase 131 H (38-126) U/L Ammonia 20 (<30) umol/L Total Protein 7.9 (6.3-8.2) g/dL Albumin 3.6 (3.5-5.0) g/dL Amylase 75 (30-110) U/L Lipase 581 H (23-300) U/L Urine Color Light Yellow Urine Appearance Clear (Clear) Urine pH 7.0 (5.0-8.0) Ur Specific [place] 1.001 (1.001-1.035) Urine Protein Negative (Negative) Urine Glucose (UA) Negative (Negative) Urine Ketones Negative (Negative) Urine Blood Negative (Negative) Urine Nitrite Negative (Negative) Urine Bilirubin Negative (Negative) Urine Urobilinogen <2.0 (<2.0) mg/dL Ur Leukocyte Esterase Negative (Negative) 05/28/17 05/28/17 Range/Units 15:29 15:29 WBC 11.7 H (3.8-10.6) k/uL RBC 2.83 L (4.30-5.90) m/uL Hgb 9.9 L (13.0-17.5) gm/dL Hct 30.3 L (39.0-53.0) % MCV 106.9 H (80.0-100.0) fL MCH 34.9 (25.0-35.0) pg MCHC 32.6 (31.0-37.0) g/dL RDW 15.6 H (11.5-15.5) % Plt Count 267 (150-450) k/uL Neutrophils % 68 % Lymphocytes % 19 % Monocytes % 5 % Eosinophils % 4 % Basophils % 2 % Neutrophils # 7.9 H (1.3-7.7) k/uL Lymphocytes # 2.2 (1.0-4.8) k/uL Monocytes # 0.6 (0-1.0) k/uL Eosinophils # 0.5 (0-0.7) k/uL Basophils # 0.2 (0-0.2) k/uL Macrocytosis Moderate PT 14.4 H (9.0-12.0) sec INR 1.6 H (<1.2) APTT 27.4 (22.0-30.0) sec Sodium (137-145) mmol/L Potassium (3.5-5.1) mmol/L Chloride (98-107) mmol/L Carbon Dioxide (22-30) mmol/L Anion Gap mmol/L BUN (9-20) mg/dL Creatinine (0.66-1.25) mg/dL Est GFR (MDRD) Af Amer (>60 ml/min/1.73 sqM) Est GFR (MDRD) Non-Af (>60 ml/min/1.73 sqM) Glucose (74-99) mg/dL Plasma Lactic Acid Balaji (0.7-2.0) mmol/L Calcium (8.4-10.2) mg/dL Total Bilirubin (0.2-1.3) mg/dL AST (17-59) U/L ALT (21-72) U/L Alkaline Phosphatase (38-126) U/L Ammonia (<30) umol/L Total Protein (6.3-8.2) g/dL Albumin (3.5-5.0) g/dL Amylase (30-110) U/L Lipase (23-300) U/L Urine Color Urine Appearance (Clear) Urine pH (5.0-8.0) Ur Specific [place] (1.001-1.035) Urine Protein (Negative) Urine Glucose (UA) (Negative) Urine Ketones (Negative) Urine Blood (Negative) Urine Nitrite (Negative) Urine Bilirubin (Negative) Urine Urobilinogen (<2.0) mg/dL Ur Leukocyte Esterase (Negative) Disposition Clinical Impression: Acute alcoholic pancreatitis, Alcoholic hepatitis without ascites Disposition: ADMITTED IP TO THIS [facility] Condition: Fair Referrals: Timmy Guevara MD [Primary Care Provider] - 1-2 days
[2017-05-28 15:30] LABS: Appearance,Urine Clear (Clear); Bilirubin,Urine Negative (Negative); Blood,Urine Negative (Negative); Color,Urine Light Yellow; Glucose,Urine (UA) Negative (Negative); Ketones,Urine Negative (Negative); Leukocyte Esterase,Urine Negative (Negative); Nitrite,Urine Negative (Negative); Protein,Urine Negative (Negative); Specific Gravity,Urine 1.001 (1.001-1.035); Urobilinogen,Urine <2.0 mg/dL (<2.0)
[2017-05-28 15:48] LABS: Basophils # (A) 0.2 k/uL (0-0.2); Basophils % (A) 2 %; Eosinophils # (A) 0.5 k/uL (0-0.7); Eosinophils % (A) 4 %; HCT 30.3 % (39.0-53.0); HGB 9.9 gm/dL (13.0-17.5); Lymphocytes # (A) 2.2 k/uL (1.0-4.8); Lymphocytes % (A) 19 %; MCH 34.9 pg (25.0-35.0); MCHC 32.6 g/dL (31.0-37.0); MCV 106.9 fL (80.0-100.0); Macrocytosis Moderate; Monocytes # (A) 0.6 k/uL (0-1.0); Monocytes % (A) 5 %; Neutrophils # (A) 7.9 k/uL (1.3-7.7); Neutrophils % (A) 68 %; Platelet Count 267 k/uL (150-450); RBC 2.83 m/uL (4.30-5.90); RDW 15.6 % (11.5-15.5); WBC 11.7 k/uL (3.8-10.6)
[2017-05-28 15:51] LABS: ALT 41 U/L (21-72); AST 81 U/L (17-59); Albumin 3.6 g/dL (3.5-5.0); Alkaline Phosphatase 131 U/L (38-126); Amylase 75 U/L (30-110); Anion Gap 14 mmol/L; Blood Urea Nitrogen 4 mg/dL (9-20); Calcium 9.4 mg/dL (8.4-10.2); Carbon Dioxide 24 mmol/L (22-30); Chloride 109 mmol/L (98-107); Glucose 131 mg/dL (74-99); Lactic Acid, Venous 1.8 mmol/L (0.7-2.0); Lipase 581 U/L (23-300); Potassium 3.9 mmol/L (3.5-5.1); Sodium 147 mmol/L (137-145); Total Bilirubin 3.4 mg/dL (0.2-1.3); Total Protein 7.9 g/dL (6.3-8.2)
[2017-05-28 15:53] LABS: Partial Thromboplastin Time 27.4 sec (22.0-30.0)
[2017-05-28 15:57] LABS: INR 1.6 (<1.2); Prothrombin Time 14.4 sec (9.0-12.0)
--- NOTE | 2017-05-28 15:59 | XR ---
2 view abdomen HISTORY: Abdominal pain 2 views of the abdomen on [address] scan 03/02/2017 Air-fluid level present in the left lower quadrant, there is some mild distention of small bowel loop at this level. Lung bases are clear. There is no evident pneumoperitoneum. IMPRESSION: Findings could represent an ileus or enteritis rather than bowel obstruction, correlate c linically and follow-up as indicated.
[2017-05-28] MEDS ORDERED: SODIUM CHLORIDE 0.9% 1,000 ML with MVI, ADULT NO.4 WITH VIT K 10 ML, THIAMINE 100 MG, F... IV ONE ×4 (17:00)
[2017-05-28] MEDS ORDERED: NALOXONE 0.4 MG/ML 1 ML VIAL IV PRN (17:25)
[2017-05-28] MEDS: HYDROmorphone 2 MG/ML 1 ML SYRINGE IVP PRN ×3 (18:03→23:59)
[2017-05-28] MEDS: ONDANSETRON 4 MG/2 ML VIAL IVP PRN (19:42)
[2017-05-28] MEDS: NICOTINE 21MG/24HR PATCH TRANSDERM SCH (19:43)
[2017-05-28] MEDS: MAGNESIUM OXIDE 400 MG TAB PO SCH (19:49)
[2017-05-28] MEDS: RIFAXIMIN 550 MG TABLET PO SCH (19:49)
[2017-05-29 01:21] LABS: Hepatitis A Antibody IgM Non-Reactive (Non-Reactive); Hepatitis B Core IgM Non-Reactive (Non-Reactive)
[2017-05-29] MEDS: HYDROmorphone 2 MG/ML 1 ML SYRINGE IVP PRN ×3 (03:00→09:19)
[2017-05-29] MEDS ORDERED: SODIUM CHLORIDE 0.9% 1,000 ML IV SCH (07:30)
[2017-05-29 08:17] LABS: HCT 28.9 % (39.0-53.0); HGB 8.8 gm/dL (13.0-17.5); Hypochromasia Moderate; MCH 33.8 pg (25.0-35.0); MCHC 30.3 g/dL (31.0-37.0); MCV 111.5 fL (80.0-100.0); Macrocytosis Marked; Platelet Count 213 k/uL (150-450); RBC 2.59 m/uL (4.30-5.90); RDW 15.9 % (11.5-15.5); WBC 10.3 k/uL (3.8-10.6)
[2017-05-29 08:30] LABS: ALT 41 U/L (21-72); AST 64 U/L (17-59); Albumin 3.2 g/dL (3.5-5.0); Alkaline Phosphatase 102 U/L (38-126); Anion Gap 10 mmol/L; Blood Urea Nitrogen 4 mg/dL (9-20); Calcium 8.8 mg/dL (8.4-10.2); Carbon Dioxide 24 mmol/L (22-30); Chloride 107 mmol/L (98-107); Glucose 97 mg/dL (74-99); Lipase 312 U/L (23-300); Potassium 3.9 mmol/L (3.5-5.1); Sodium 141 mmol/L (137-145); Total Bilirubin 3.6 mg/dL (0.2-1.3); Total Protein 7.4 g/dL (6.3-8.2)
[2017-05-29 09:54] LABS: Eosinophils # (M) 0.41 k/uL (0-0.7); Lymphocytes # (M) 0.82 k/uL (1.0-4.8); Monocytes # (M) 0.62 k/uL (0-1.0); Myelocytes % 1 %; Neutrophils # (M) 8.55 k/uL (1.3-7.7); Neutrophils % (M) 83 %; Nucleated Red Blood Cells 0 /100 WBC (0-0); Total Cells Counted 200
[2017-05-29 09:55] LABS: Crenated RBC Present; Poikilocytosis (M) Present
[2017-05-29] MEDS: NICOTINE 21MG/24HR PATCH TRANSDERM SCH (10:07)
[2017-05-29] MEDS: RIFAXIMIN 550 MG TABLET PO SCH ×2 (10:08→20:38)
[2017-05-29] MEDS: PANTOPRAZOLE 40 MG/10 ML VIAL IV SCH (10:08)
[2017-05-29] MEDS: POTASSIUM CHLORIDE ER 20 MEQ TAB.ER PO SCH (10:08)
[2017-05-29] MEDS: MAGNESIUM OXIDE 400 MG TAB PO SCH ×2 (10:09→20:38)
[2017-05-29] MEDS: ONDANSETRON 4 MG/2 ML VIAL IVP PRN (10:28)
[2017-05-29] MEDS ORDERED: VANCOMYCIN IV PER PHARMACY 1 EACH MISC MISCELLANE PRN (10:34)
--- NOTE | 2017-05-29 10:59 | P.HPIM ---
History of Present Illness 50-year-old gentleman came in with complaints of abdominal pain patient is well- known patient to me from his previous hospital admissions and was recently discharged from [facility] after he was treated for abdominal pain which is consistent secondary to alcoholic gastritis. Patient is highly noncompliant with medication recommendation and the continues to drink alcohol does have history of cirrhosis secondary to alcohol abuse. Patient denied any fever chills patient doesn't have any leukocytosis patient has minimally elevated leukocytosis and admission which resolved patient incidentally found to have positive blood cultures with gram-positive cocci most probably contamination but until this is proven patient will need antibiotics patient will need repeat blood cultures patient has mildly elevated lipase and not believe patient has pancreatitis patient started drinking yesterday again after discharge had couple beers. Patient's abdomen is soft does have some ascites but will not require any paracentesis at this time patient was given prescriptions for his cirrhosis including Lasix aldactone, omeprazole for gastritis never picked up any of these medications. I frankly do not believe patient has pancreatitis may have some alcohol he gastritis for which patient is on Review of Systems REVIEW OF SYSTEMS: CONSTITUTIONAL: No fever, no malaise, no fatigue. HEENT: No recent visual problems or hearing problems. Denied any sore throat. CARDIOVASCULAR: No chest pain, orthopnea, PND, no palpitations, no syncope. PULMONARY: No shortness of breath, no cough, no hemoptysis. GASTROINTESTINAL: No diarrhea, no nausea, no vomiting, Normoactive bowel sounds. NEUROLOGICAL: No headaches, no weakness, no numbness. HEMATOLOGICAL: Denies any bleeding or petechiae. GENITOURINARY: Denies any burning micturition, frequency, or urgency. MUSCULOSKELETAL/RHEUMATOLOGICAL: Denies any joint pain, swelling, or any muscle pain. ENDOCRINE: Denies any polyuria or polydipsia. The rest of the 14-point review of systems is negative. Past Medical History Past Medical History: Asthma, Pneumonia Additional Past Medical History / Comment(s): kidney stones, etoh, pancreatits, 'liver problems" History of Any Multi-Drug Resistant Organisms: None Reported Date of last positivie culture/infection: 12/09/2013 MDRO Source:: Right First Finger Past Surgical History: Appendectomy, Orthopedic Surgery Additional Past Surgical History / Comment(s): right hand tendon repair, right knee surgery. recent procedure at [facility] stated they "drained fluid from the liver" Past Anesthesia/Blood Transfusion Reactions: No Reported Reaction Smoking Status: Current every day smoker - Past Family History Mother Family Medical History: Hypertension Father Additional Family Medical History / Comment(s): Prostate issues. Brain anyrsum Medications and Allergies Home Medications Medication Instructions Recorded Confirmed Type Magnesium Oxide [Magox 400] 400 mg PO BID 05/28/17 05/28/17 History Potassium Chloride [Klor-Con 20] 40 meq PO DAILY 05/28/17 05/28/17 History Rifaximin [Xifaxan] 550 mg PO BID 05/28/17 05/28/17 History Allergies Allergy/AdvReac Type Severity Reaction Status Date / Time No Known Allergies Allergy Verified 05/28/17 15:14 Physical Exam Vitals: Vital Signs Temp Pulse Pulse Resp BP BP BP 05/29/17 07:00 97.4 F L 70 18 107/52 05/28/17 23:00 97.0 F L 60 16 117/62 05/28/17 18:49 97.6 F 74 16 127/64 05/28/17 18:08 98 F 81 16 117/64 05/28/17 17:04 96.9 F L 78 14 122/58 05/28/17 14:54 98 F 81 16 123/64 Pulse Ox 05/29/17 07:00 100 05/28/17 23:00 98 05/28/17 18:49 100 05/28/17 18:08 100 05/28/17 17:04 98 05/28/17 14:54 98 Intake and Output 05/28/17 05/29/17 05/29/17 22:59 06:59 14:59 Other: # Voids 1 2 # Bowel Movements 0 0 Weight 84.822 kg PHYSICAL EXAMINATION: GENERAL: The patient is alert and oriented x3, not in any acute distress. Well developed, well nourished. HEENT: Pupils are round and equally reacting to light. EOMI. No scleral icterus. No conjunctival pallor. Normocephalic, atraumatic. No pharyngeal erythema. No thyromegaly. CARDIOVASCULAR: S1 and S2 present. No murmurs, rubs, or gallops. PULMONARY: Chest is clear to auscultation, no wheezing or crackles. ABDOMEN: Soft, nontender, minimally distended with some fluid shift normoactive bowel sounds. No palpable organomegaly. MUSCULOSKELETAL: No joint swelling or deformity. EXTREMITIES: No cyanosis, clubbing, or pedal edema. NEUROLOGICAL: Gross neurological examination did not reveal any focal deficits. SKIN: No rashes. Results CBC & Chem 7: 05/29/17 07:37 05/29/17 07:37 Labs: Abnormal Lab Results - Last 24 Hours (Table) 05/28/17 05/28/17 05/28/17 Range/Units 15:29 15:29 15:29 WBC 11.7 H (3.8-10.6) k/uL RBC 2.83 L (4.30-5.90) m/uL Hgb 9.9 L (13.0-17.5) gm/dL Hct 30.3 L (39.0-53.0) % MCV 106.9 H (80.0-100.0) fL MCHC (31.0-37.0) g/dL RDW 15.6 H (11.5-15.5) % Neutrophils # 7.9 H (1.3-7.7) k/uL Neutrophils # (Manual) (1.3-7.7) k/uL Lymphocytes # (Manual) (1.0-4.8) k/uL Myelocytes # (Manual) (0) k/uL PT 14.4 H (9.0-12.0) sec INR 1.6 H (<1.2) Sodium 147 H (137-145) mmol/L Chloride 109 H (98-107) mmol/L BUN 4 L (9-20) mg/dL Creatinine (0.66-1.25) mg/dL Glucose 131 H (74-99) mg/dL Total Bilirubin 3.4 H (0.2-1.3) mg/dL AST 81 H (17-59) U/L Alkaline Phosphatase 131 H (38-126) U/L Albumin (3.5-5.0) g/dL Lipase 581 H (23-300) U/L 05/29/17 05/29/17 Range/Units 07:37 07:37 WBC (3.8-10.6) k/uL RBC 2.59 L (4.30-5.90) m/uL Hgb 8.8 L (13.0-17.5) gm/dL Hct 28.9 L (39.0-53.0) % MCV 111.5 H (80.0-100.0) fL MCHC 30.3 L (31.0-37.0) g/dL RDW 15.9 H (11.5-15.5) % Neutrophils # (1.3-7.7) k/uL Neutrophils # (Manual) 8.55 H (1.3-7.7) k/uL Lymphocytes # (Manual) 0.82 L (1.0-4.8) k/uL Myelocytes # (Manual) 0.10 H (0) k/uL PT (9.0-12.0) sec INR (<1.2) Sodium (137-145) mmol/L Chloride (98-107) mmol/L BUN 4 L (9-20) mg/dL Creatinine 0.60 L (0.66-1.25) mg/dL Glucose (74-99) mg/dL Total Bilirubin 3.6 H (0.2-1.3) mg/dL AST 64 H (17-59) U/L Alkaline Phosphatase (38-126) U/L Albumin 3.2 L (3.5-5.0) g/dL Lipase 312 H (23-300) U/L Microbiology - Last 24 Hours (Table) 05/28/17 15:29 Blood Culture Gram Stain - Preliminary Blood 05/28/17 15:29 Blood Culture - Final Blood 05/28/17 15:24 Urine Culture - Preliminary Urine,Voided Thrombosis Risk Factor Assmnt - Choose All That Apply Any of the Below Risk Factors Present?: Yes Each Factor Represents 1 point: Age 41-60 years, Obesity (BMI >25) Other Risk Factors: No Thrombosis Risk Factor Assessment Total Risk Factor Score: 2 Thrombosis Risk Factor Assessment Level: Low Risk Assessment and Plan Plan: 1 abdominal pain probably due to alcoholic gastritis continue with Protonix Alcohol abuse -Patient will be watched for alcohol withdrawals -Positive blood cultures as mentioned above most probably contamination but will repeat blood cultures patient will empirically be started on vancomycin for gram-positive cocci in blood cultures. Patient does not have any fevers signs or symptoms of sepsis. -Alcoholic cirrhosis history. -Patient has history of hepatic encephalopathy for which patient is on rifaximin and lactulose which will be continued
[2017-05-29] MEDS: SPIRONOLACTONE 25 MG TAB PO SCH (11:46)
[2017-05-29] MEDS: FUROSEMIDE 40 MG TAB PO SCH (11:46)
[2017-05-29] MEDS ORDERED: VANCOMYCIN 1,750 MG in SODIUM CHLORIDE 0.9% 250 ML IVPB ONE (12:00)
[2017-05-29] MEDS: MORPHINE SULFATE 2 MG/ML SYRINGE IVP PRN ×3 (12:04→18:57)
[2017-05-29] MEDS: VANCOMYCIN 1,500 MG in SODIUM CHLORIDE 0.9% 250 ML IVPB SCH (20:33)
[2017-05-30] MEDS: MORPHINE SULFATE 2 MG/ML SYRINGE IVP PRN ×6 (01:23→21:30)
[2017-05-30] MEDS ORDERED: IBUPROFEN 400 MG TAB PO PRN (01:45)
[2017-05-30] MEDS: VANCOMYCIN 1,500 MG in SODIUM CHLORIDE 0.9% 250 ML IVPB SCH ×2 (04:11→11:13)
[2017-05-30] MEDS: RIFAXIMIN 550 MG TABLET PO SCH ×2 (07:34→21:29)
[2017-05-30] MEDS: MAGNESIUM OXIDE 400 MG TAB PO SCH ×2 (07:34→21:29)
[2017-05-30] MEDS: FUROSEMIDE 40 MG TAB PO SCH (07:34)
[2017-05-30] MEDS: POTASSIUM CHLORIDE ER 20 MEQ TAB.ER PO SCH (07:34)
[2017-05-30] MEDS: NICOTINE 21MG/24HR PATCH TRANSDERM SCH (07:34)
[2017-05-30] MEDS: PANTOPRAZOLE 40 MG/10 ML VIAL IV SCH (07:34)
[2017-05-30] MEDS: SPIRONOLACTONE 25 MG TAB PO SCH (07:35)
[2017-05-30] MEDS ORDERED: IOHEXOL 350 MG/ML 25 ML BOTTLE (ORAL USE) PO PRN (12:16)
[2017-05-30] MEDS ORDERED: RX INFO: IV CONTRAST WAS GIVEN 1 EACH MISC MISCELLANE PRN (12:16)
--- NOTE | 2017-05-30 13:33 | P.PN ---
Subjective Patient today is complaining of right or quadrant abdominal pain. Patient did have fever blood cultures although showing staph epidermidis which is a contamination considering his fever and right lower quadrant abdominal pain my concern is colitis because of which I'll obtain a CAT scan of the abdomen. Vancomycin can be discontinued. Further antibiotic decisions regarding depending on CAT scan results Constitutional: Denied any fatigue denied any fever. Cardio vascular: denied any chest pain, palpitations Gastrointestinal as mentioned in HPI Pulmonary: Denied any shortness of breath cough Neurologic denied any new focal deficits Objective - Vital Signs Vital signs: Vital Signs Temp 97.2 F L 05/30/17 07:00 Pulse 67 05/30/17 07:00 Resp 18 05/30/17 07:00 BP 97/48 05/30/17 07:00 Pulse Ox 99 05/30/17 07:00 Intake & Output 05/29/17 05/30/17 05/30/17 18:59 06:59 18:59 Intake Total 240 240 Balance 240 240 Weight 84.822 kg Intake: Oral 240 240 Other: Voiding Method Toilet # Voids 2 2 # Bowel Movements 0 0 - Exam PHYSICAL EXAMINATION: GENERAL: The patient is alert and oriented x3, not in any acute distress. Well developed, well nourished. HEENT: Pupils are round and equally reacting to light. EOMI. No scleral icterus. No conjunctival pallor. Normocephalic, atraumatic. No pharyngeal erythema. No thyromegaly. CARDIOVASCULAR: S1 and S2 present. No murmurs, rubs, or gallops. PULMONARY: Chest is clear to auscultation, no wheezing or crackles. ABDOMEN: Soft, minimal tenderness in the right lower quadrant patient has minimal shifting dullness, no organomegaly MUSCULOSKELETAL: No joint swelling or deformity. EXTREMITIES: No cyanosis, clubbing, or pedal edema. NEUROLOGICAL: Gross neurological examination did not reveal any focal deficits. SKIN: No rashes. - Labs CBC & Chem 7: 05/29/17 07:37 05/29/17 07:37 Labs: Microbiology - Last 24 Hours (Table) 05/29/17 10:37 Blood Culture - Preliminary Blood No Growth after 24 hours 05/28/17 15:29 Blood Culture Gram Stain - Preliminary Blood Blood Culture - Preliminary Coagulase Negative Staph 05/28/17 15:24 Urine Culture - Final Urine,Voided 05/28/17 15:29 Blood Culture - Final Blood Assessment and Plan Plan: 1 abdominal pain with fever concern is diverticulitis, CAT scan of the abdomen as mentioned above Alcohol abuse -Patient will be watched for alcohol withdrawals -Positive blood cultures, blood cultures are showing staph epidermidis which is a contamination IV vancomycin will be discontinued -Alcoholic cirrhosis history. -Patient has history of hepatic encephalopathy for which patient is on rifaximin and lactulose which will be continued
--- NOTE | 2017-05-30 15:19 | CT ---
EXAMINATION TYPE: CT abdomen w con DATE OF EXAM: 05/30/2017 COMPARISON: NONE HISTORY: Abdominal pain, intermittent for >[address] DLP: 517.60 mGycm Automated exposure control for dose reduction was used. TECHNIQUE: Helical acquisition of images was performed from the lung bases through the top of iliac crest to include entire abdomen. CONTRAST: Performed with Oral Contrast and with IV Contrast, patient injected with 100 ml mL of Omnipaque 300. FINDINGS: LUNG BASES: Small Bochdalek hernia is incidentally noted. Scattered areas of subsegmental dependent b ibasilar atelectasis are also seen. LIVER/GB: Geographic areas of low-attenuation are seen within the liver most pronounced within the in ferior right hepatic lobe on series 3 image 34 and left lobe on series 3 image 16. The contour the li queenie appears smooth without a cirrhotic morphology. There is gallbladder wall thickening and a small amount of pericholecystic fluid and/or surrounding f at stranding. The gallbladder is enlarged at least 9.6 cm in longitudinal dimension with fat strandin g extending to surround the colon adjacent to the gallbladder although there is no colonic wall thick ening. The common bile duct is partially obscured but measures approximately 7 mm. No radiopaque calc marina are seen. PANCREAS: No significant abnormality is seen. SPLEEN: The spleen is enlarged measuring 14.6 cm in craniocaudal dimension. ADRENALS: No significant abnormality is seen. KIDNEYS: Punctate 2 mm left lower pole and 1 to 2 mm right midpole renal calculi are noted. No eviden ce of hydronephrosis. BOWEL: No significant abnormality is seen. LYMPH NODES: No significant abnormality is seen. OSSEOUS STRUCTURES: Multiple Schmorl's nodes are seen throughout the visualized thoracolumbar spine. Osseous structures appear intact. FREE AIR: No free air is visualized. IMPRESSION: 1. FINDINGS CONCERNING FOR ACUTE CHOLECYSTITIS. HIDA SCAN COULD BE PERFORMED FOR CONFIRMATION. 2. GEOGRAPHIC AREAS OF HYPOATTENUATION WITHIN THE HEPATIC PARENCHYMA THAT COULD RELATE TO FOCAL AREAS OF HEPATIC STEATOSIS OR HEPATOCELLULAR DISEASE GIVEN THE SECONDARY FINDING OF SPLENOMEGALY WHICH COU LD RELATE TO PORTAL VENOUS HYPERTENSION. ENHANCED MR ABDOMEN WITH IN AND OUT OF PHASE IMAGING COULD C ONFIRM HEPATIC STEATOSIS. A Yellow message has been communicated to Dagmar Vargas MD via the [facility] sult system on 05/30/2017 3:17 PM, Message ID [id number].
[2017-05-31] MEDS: MORPHINE SULFATE 2 MG/ML SYRINGE IVP PRN ×5 (01:38→22:32)
[2017-05-31] MEDS: MAGNESIUM OXIDE 400 MG TAB PO SCH ×2 (07:55→21:22)
[2017-05-31] MEDS: NICOTINE 21MG/24HR PATCH TRANSDERM SCH (07:55)
[2017-05-31] MEDS: SPIRONOLACTONE 25 MG TAB PO SCH (07:55)
[2017-05-31] MEDS: PANTOPRAZOLE 40 MG/10 ML VIAL IV SCH (07:55)
[2017-05-31] MEDS: POTASSIUM CHLORIDE ER 20 MEQ TAB.ER PO SCH (07:55)
[2017-05-31] MEDS: FUROSEMIDE 40 MG TAB PO SCH (07:55)
[2017-05-31] MEDS: RIFAXIMIN 550 MG TABLET PO SCH ×2 (07:55→21:22)
[2017-05-31 08:18] LABS: HCT 25.8 % (39.0-53.0); HGB 8.2 gm/dL (13.0-17.5); MCH 34.9 pg (25.0-35.0); MCV 109.4 fL (80.0-100.0); Macrocytosis Marked; Mean Platelet Volume 8.7; Platelet Count 154 k/uL (150-450); RBC 2.36 m/uL (4.30-5.90); RDW 15.1 % (11.5-15.5)
[2017-05-31 08:35] LABS: Anion Gap 8 mmol/L; Blood Urea Nitrogen 10 mg/dL (9-20); Calcium 9.2 mg/dL (8.4-10.2); Carbon Dioxide 26 mmol/L (22-30); Chloride 104 mmol/L (98-107); Glucose 108 mg/dL (74-99); Potassium 3.7 mmol/L (3.5-5.1); Sodium 138 mmol/L (137-145)
--- NOTE | 2017-05-31 14:05 | P.PN ---
Subjective Patient today is complaining of right or quadrant abdominal pain. Patient did have fever blood cultures although showing staph epidermidis which is a contamination considering his fever and right lower quadrant abdominal pain my concern is colitis because of which I'll obtain a CAT scan of the abdomen. Vancomycin can be discontinued. Further antibiotic decisions regarding depending on CAT scan results 05/31/2016 Patient's CAT scan is questionable for cholecystitis patient in the past was found to have cholecystitis and patient was subsequently transferred to [facility] for be really drain placement which was never placed as patient had improvement in his liver enzymes at that time. Patient will be started back on Unasyn surgery was consulted discussed with surgery and patient is undergoing HIDA scan today, can use to complain seem amount of pain Constitutional: Denied any fatigue denied any fever. Cardio vascular: denied any chest pain, palpitations Gastrointestinal as mentioned in HPI Pulmonary: Denied any shortness of breath cough Neurologic denied any new focal deficits Objective - Vital Signs Vital signs: Vital Signs Temp 98.6 F 05/31/17 07:00 Pulse 74 05/31/17 07:00 Resp 16 05/31/17 07:00 BP 104/56 05/31/17 07:00 Pulse Ox 98 05/31/17 07:00 Intake & Output 05/30/17 05/31/17 05/31/17 18:59 06:59 18:59 Intake Total 480 Balance 480 Weight 84.822 kg Intake: Oral 480 Other: Voiding Method Toilet # Voids 2 1 # Bowel Movements 0 - Exam PHYSICAL EXAMINATION: GENERAL: The patient is alert and oriented x3, not in any acute distress. Well developed, well nourished. HEENT: Pupils are round and equally reacting to light. EOMI. No scleral icterus. No conjunctival pallor. Normocephalic, atraumatic. No pharyngeal erythema. No thyromegaly. CARDIOVASCULAR: S1 and S2 present. No murmurs, rubs, or gallops. PULMONARY: Chest is clear to auscultation, no wheezing or crackles. ABDOMEN: Soft, minimal tenderness in the right lower quadrant patient has minimal shifting dullness, no organomegaly MUSCULOSKELETAL: No joint swelling or deformity. EXTREMITIES: No cyanosis, clubbing, or pedal edema. NEUROLOGICAL: Gross neurological examination did not reveal any focal deficits. SKIN: No rashes. - Labs CBC & Chem 7: 05/31/17 07:47 05/31/17 07:47 Labs: Abnormal Lab Results - Last 24 Hours (Table) 05/31/17 05/31/17 Range/Units 07:47 07:47 WBC 11.0 H (3.8-10.6) k/uL RBC 2.36 L (4.30-5.90) m/uL Hgb 8.2 L (13.0-17.5) gm/dL Hct 25.8 L (39.0-53.0) % MCV 109.4 H (80.0-100.0) fL Glucose 108 H (74-99) mg/dL Microbiology - Last 24 Hours (Table) 05/29/17 10:37 Blood Culture - Preliminary Blood No Growth after 48 hours 05/30/17 08:25 Blood Culture - Preliminary Blood No Growth after 24 hours 05/28/17 15:29 Blood Culture Gram Stain - Final Blood Blood Culture - Final Staphylococcus epidermidis Assessment and Plan Plan: 1 abdominal pain with fever at [facility] the abdomen did show possible cholecystitis , consult during surgeries started on Unasyn. Alcohol abuse -Patient will be watched for alcohol withdrawals -Positive blood cultures, blood cultures are showing staph epidermidis which is a contamination IV vancomycin will be discontinued -Alcoholic cirrhosis history. -Patient has history of hepatic encephalopathy for which patient is on rifaximin and lactulose which will be continued -Possibly worsening kidney function: Hold off on diuretic therapy because of elevated creatinine from 0.6-1
--- NOTE | 2017-05-31 14:34 | P.GSCN ---
<Jasmyne Umana M - Last Filed: 05/31/17 14:09> History of Present Illness Consult date: 05/31/17 Reason for Consult: Abdominal pain History of present illness: 42-year-old male patient well known to dr boyer service being seen at the request of the attending for surgical eval in a patient with a chief complaint of persistent abdominal pain. Patient has had numerous hospitalization admissions and workup for abdominal pain recently within the last 3 months at a tertiary center [facility] patient is vague about the symptoms and the duration of having the abdominal pain when questioning. Patient states his last drink of alcohol was or Wednesday last week. Patient does have a history of chronic alcoholism. Additionally has a history of cirrhosis secondary to alcohol abuse history of noncompliant with medication and follow-up. Patient was recently discharged from [facility] where patient was treated for abdominal pain consistent secondary to alcohol gastritis patient states "positive the abdominal pain is because gallbladder needs to come out". CAT scan of the abdomen pelvis findings concerning for an acute cholecystitis currently patient is resting comfortably in bed the abdomen is soft not distended scheduled for a HIDA scan today Past surgical history appendectomy, orthopedic surgery . Medical history asthma and prior pneumonia . Review of Systems Essentially unremarkable except as mentioned in the present illness Past Medical History Past Medical History: Asthma, Pneumonia Additional Past Medical History / Comment(s): kidney stones, etoh, pancreatits, 'liver problems" History of Any Multi-Drug Resistant Organisms: None Reported Year Discovered:: 12/09/2013 MDRO Source:: Right First Finger Past Surgical History: Appendectomy, Orthopedic Surgery Additional Past Surgical History / Comment(s): right hand tendon repair, right knee surgery. recent procedure [facility] stated they "drained fluid from the liver" Past Anesthesia/Blood Transfusion Reactions: No Reported Reaction Smoking Status: Current every day smoker - Past Family History Mother Family Medical History: Hypertension Father Additional Family Medical History / Comment(s): Prostate issues. Brain anyrsum Medications and Allergies Home Medications Medication Instructions Recorded Confirmed Type Magnesium Oxide [Magox 400] 400 mg PO BID 05/28/17 05/28/17 History Potassium Chloride [Klor-Con 20] 40 meq PO DAILY 05/28/17 05/28/17 History Rifaximin [Xifaxan] 550 mg PO BID 05/28/17 05/28/17 History Allergies Allergy/AdvReac Type Severity Reaction Status Date / Time No Known Allergies Allergy Verified 05/28/17 15:14 Surgical - Exam Vital Signs Temp Pulse Resp BP Pulse Ox 98 F 81 16 123/64 98 05/28/17 14:54 05/28/17 14:54 05/28/17 14:54 05/28/17 14:54 05/28/17 14:54 GENERAL APPEARANCE: 42-year-old male patient is alert, oriented x3, in no acute distress. Talkative VITAL SIGNS: Reviewed HEENT: Head is normocephalic and atraumatic. Pupils are equal and reactive. The nares are patent. Oropharynx is clear without lesions. NECK: Supple without lymphadenopathy. Traches midline. HEART: S1, S2. Regular rate and rhythm. Denies chest pain no murmur noted LUNGS: No crackles or wheezes are heard. Good air movement bilaterally on room air ABDOMEN: Soft, slight tenderness right upper quadrant with palpitation no guarding nondistended with good bowel sounds. No peritoneal signs. No palpable organomegaly or masses reports a nausea sensation no active emesis. States having stooling no difficulty urinating EXTREMITIES: Normal skin color and turgor. No cyanosis, rash, ulceration, clubbing or edema. Radial pedal pulses are 2/4 bilaterally. NEUROLOGICAL: No focal deficits. Strength and sensation are grossly intact. Results - Labs 05/31/17 07:47 05/31/17 07:47 Abnormal Lab Results - Last 24 Hours (Table) 05/31/17 05/31/17 Range/Units 07:47 07:47 WBC 11.0 H (3.8-10.6) k/uL RBC 2.36 L (4.30-5.90) m/uL Hgb 8.2 L (13.0-17.5) gm/dL Hct 25.8 L (39.0-53.0) % MCV 109.4 H (80.0-100.0) fL Glucose 108 H (74-99) mg/dL Microbiology - Last 24 Hours (Table) 05/29/17 10:37 Blood Culture - Preliminary Blood No Growth after 48 hours 05/30/17 08:25 Blood Culture - Preliminary Blood No Growth after 24 hours 05/28/17 15:29 Blood Culture Gram Stain - Final Blood Blood Culture - Final Staphylococcus epidermidis Diabetes panel 05/31/17 Range/Units 07:47 Sodium 138 (137-145) mmol/L Potassium 3.7 (3.5-5.1) mmol/L Chloride 104 (98-107) mmol/L Carbon Dioxide 26 (22-30) mmol/L BUN 10 (9-20) mg/dL Creatinine 1.03 (0.66-1.25) mg/dL Glucose 108 H (74-99) mg/dL Calcium 9.2 (8.4-10.2) mg/dL Calcium panel 05/31/17 Range/Units 07:47 Calcium 9.2 (8.4-10.2) mg/dL Pituitary panel 05/31/17 Range/Units 07:47 Sodium 138 (137-145) mmol/L Potassium 3.7 (3.5-5.1) mmol/L Chloride 104 (98-107) mmol/L Carbon Dioxide 26 (22-30) mmol/L BUN 10 (9-20) mg/dL Creatinine 1.03 (0.66-1.25) mg/dL Glucose 108 H (74-99) mg/dL Calcium 9.2 (8.4-10.2) mg/dL Adrenal panel 05/31/17 Range/Units 07:47 Sodium 138 (137-145) mmol/L Potassium 3.7 (3.5-5.1) mmol/L Chloride 104 (98-107) mmol/L Carbon Dioxide 26 (22-30) mmol/L BUN 10 (9-20) mg/dL Creatinine 1.03 (0.66-1.25) mg/dL Glucose 108 H (74-99) mg/dL Calcium 9.2 (8.4-10.2) mg/dL Assessment and Plan Assessment: Impression Chronic elevated bilirubin and INR likely due to cirrhosis of the liver due to chronic alcoholism Present on admission right upper quadrant pain with nausea vomiting unclear etiology Chronic alcoholism Active current every day smoker CAT scan abdomen pelvis possible acute cholecystitis History of hepatic encephalopathy Positive blood culture showing staph epidermidis possible contamination Plan Follow up on the HIDA scan results DVT and GI prophylaxis Home meds as appropriate Defer to attending to address medical issues Reinforce smoking sensation and absence of alcohol use Agree with monitoring for impending DTs Further surgical recommendations pending results from the HIDA scan Surgical consultation note dictated for Dr. boyer The above impression and plan of care have been discussed and directed by signing physician. Jasmyne Umana nurse practitioner acting as scribe for signing physician. <Romie Boyer - Last Filed: 06/01/17 11:52> Surgical - Exam Osteopathic Statement: *. No significant issues noted on an osteopathic structural exam other than those noted in the History and Physical/Consult. Vital Signs Temp Pulse Resp BP Pulse Ox 98 F 81 16 123/64 98 05/28/17 14:54 05/28/17 14:54 05/28/17 14:54 05/28/17 14:54 05/28/17 14:54 Results - Labs 06/01/17 07:06 06/01/17 07:06 Abnormal Lab Results - Last 24 Hours (Table) 06/01/17 06/01/17 Range/Units 07:06 07:06 WBC 11.0 H (3.8-10.6) k/uL RBC 2.48 L (4.30-5.90) m/uL Hgb 8.6 L (13.0-17.5) gm/dL Hct 27.1 L (39.0-53.0) % MCV 109.3 H (80.0-100.0) fL Glucose 112 H (74-99) mg/dL Microbiology - Last 24 Hours (Table) 05/30/17 08:25 Blood Culture - Preliminary Blood No Growth after 48 hours 05/31/17 07:47 Blood Culture - Preliminary Blood No Growth after 24 hours 05/29/17 10:37 Blood Culture - Preliminary Blood No Growth after 48 hours Diabetes panel 06/01/17 Range/Units 07:06 Sodium 139 (137-145) mmol/L Potassium 3.6 (3.5-5.1) mmol/L Chloride 102 (98-107) mmol/L Carbon Dioxide 26 (22-30) mmol/L BUN 9 (9-20) mg/dL Creatinine 0.96 (0.66-1.25) mg/dL Glucose 112 H (74-99) mg/dL Calcium 9.3 (8.4-10.2) mg/dL Calcium panel 06/01/17 Range/Units 07:06 Calcium 9.3 (8.4-10.2) mg/dL Pituitary panel 06/01/17 Range/Units 07:06 Sodium 139 (137-145) mmol/L Potassium 3.6 (3.5-5.1) mmol/L Chloride 102 (98-107) mmol/L Carbon Dioxide 26 (22-30) mmol/L BUN 9 (9-20) mg/dL Creatinine 0.96 (0.66-1.25) mg/dL Glucose 112 H (74-99) mg/dL Calcium 9.3 (8.4-10.2) mg/dL Adrenal panel 06/01/17 Range/Units 07:06 Sodium 139 (137-145) mmol/L Potassium 3.6 (3.5-5.1) mmol/L Chloride 102 (98-107) mmol/L Carbon Dioxide 26 (22-30) mmol/L BUN 9 (9-20) mg/dL Creatinine 0.96 (0.66-1.25) mg/dL Glucose 112 H (74-99) mg/dL Calcium 9.3 (8.4-10.2) mg/dL Assessment and Plan Plan: At this time HIDA scan is negative for acute cholecystitis. Given the patients long standing and persistent liver disease he is at very high risk for surgery. I do not recommend cholecystectomy. He states that his pain had slightly improved. He may have diet as tolerated.
[2017-05-31] MEDS: AMPICILLIN-SULBACTAM 3 GM in SODIUM CHLORIDE 0.9% 100 ML IVPB SCH ×2 (15:44→23:50)
--- NOTE | 2017-05-31 18:12 | NM ---
EXAMINATION TYPE: NM hepatobiliary w EF DATE OF EXAM: 05/31/2017 COMPARISON: NONE HISTORY: TECHNIQUE: After the intravenous administration of 4.2 mCi Tc 99m Mebrofenin hepatobiliary scintigrap hy is performed. Immediate images post injection. FINDINGS: Liver shows no focal defect. There is tracer in the gallbladder at 18 minutes and tracer in the small bowel at 40 minutes which excludes obstruction of the biliary tree. Tracers mostly in the gallbladde r at 1 hour. The poststimulation images show gallbladder ejection fraction of 76%. IMPRESSION: Normal gallbladder ejection fraction. No evidence of cystic duct or common bile duct obs truction. There is relatively slow clearance of the tracer from the blood pool that raises the possib ility of some degree of liver disease. Clinical correlation is recommended.
[2017-06-01] MEDS: MORPHINE SULFATE 2 MG/ML SYRINGE IVP PRN ×5 (02:30→20:11)
[2017-06-01] MEDS: NICOTINE 21MG/24HR PATCH TRANSDERM SCH (07:42)
[2017-06-01] MEDS: POTASSIUM CHLORIDE ER 20 MEQ TAB.ER PO SCH (07:42)
[2017-06-01] MEDS: AMPICILLIN-SULBACTAM 3 GM in SODIUM CHLORIDE 0.9% 100 ML IVPB SCH ×2 (07:42→15:39)
[2017-06-01] MEDS: MAGNESIUM OXIDE 400 MG TAB PO SCH ×2 (07:42→20:13)
[2017-06-01] MEDS: RIFAXIMIN 550 MG TABLET PO SCH ×2 (07:42→20:12)
[2017-06-01] MEDS: PANTOPRAZOLE 40 MG/10 ML VIAL IV SCH (07:42)
[2017-06-01 07:43] VITALS: RESP 16
[2017-06-01 08:11] LABS: HCT 27.1 % (39.0-53.0); HGB 8.6 gm/dL (13.0-17.5); MCH 34.6 pg (25.0-35.0); MCHC 31.7 g/dL (31.0-37.0); MCV 109.3 fL (80.0-100.0); Macrocytosis Marked; Mean Platelet Volume 8.7; Platelet Count 153 k/uL (150-450); RBC 2.48 m/uL (4.30-5.90); RDW 15.3 % (11.5-15.5)
[2017-06-01 08:34] LABS: Anion Gap 11 mmol/L; Blood Urea Nitrogen 9 mg/dL (9-20); Calcium 9.3 mg/dL (8.4-10.2); Carbon Dioxide 26 mmol/L (22-30); Chloride 102 mmol/L (98-107); Glucose 112 mg/dL (74-99); Potassium 3.6 mmol/L (3.5-5.1); Sodium 139 mmol/L (137-145)
--- NOTE | 2017-06-01 16:18 | P.PN ---
Subjective Progress Note Date: 06/01/17 Progress note being dictated for Dr. Vargas. Interval history:Patient today is complaining of right or quadrant abdominal pain. Patient did have fever blood cultures although showing staph epidermidis which is a contamination considering his fever and right lower quadrant abdominal pain my concern is colitis because of which I'll obtain a CAT scan of the abdomen. Vancomycin can be discontinued. Further antibiotic decisions regarding depending on CAT scan results 05/31/2017 Patient's CAT scan is questionable for cholecystitis patient in the past was found to have cholecystitis and patient was subsequently transferred to [facility] for be really drain placement which was never placed as patient had improvement in his liver enzymes at that time. Patient will be started back on Unasyn surgery was consulted discussed with surgery and patient is undergoing HIDA scan today, can use to complain seem amount of pain Constitutional: Denied any fatigue denied any fever. Cardio vascular: denied any chest pain, palpitations Gastrointestinal as mentioned in HPI Pulmonary: Denied any shortness of breath cough Neurologic denied any new focal deficits 06/01/2017 Persistent abdominal pain, right upper quadrant, medicated with morphine every 4 hours. HIDA scan reported normal gallbladder ejection fraction , and no cystic duct or common bile duct obstruction. Maintained on Unasyn, afebrile. Consuming 25-100% with no nausea or vomiting. Objective - Vital Signs Vital signs: Vital Signs Temp 97.2 F L 06/01/17 15:00 Pulse 79 06/01/17 15:00 Resp 16 06/01/17 15:00 BP 114/59 06/01/17 15:00 Pulse Ox 100 06/01/17 15:00 Intake & Output 05/31/17 06/01/17 06/01/17 18:59 06:59 18:59 Intake Total 480 Balance 480 Intake: Oral 480 Other: Voiding Method Toilet # Voids 1 2 1 - Exam GENERAL: The patient is alert and oriented x3, sitting up in bed, no acute distress. Well developed, well nourished. HEENT: Pupils are round and equally reacting to light. EOMI. No scleral icterus. No conjunctival pallor. Normocephalic, atraumatic. No pharyngeal erythema. No thyromegaly. CARDIOVASCULAR: S1 and S2 present. No murmurs, rubs, or gallops. PULMONARY: Chest is clear to auscultation, no wheezing or crackles. ABDOMEN: Soft, minimal tenderness in the right upper quadrant patient has minimal shifting dullness, no organomegaly, positive bowel sounds MUSCULOSKELETAL: No joint swelling or deformity. EXTREMITIES: No cyanosis, clubbing, or pedal edema. NEUROLOGICAL: Gross neurological examination did not reveal any focal deficits. SKIN: No rashes. - Labs CBC & Chem 7: 06/01/17 07:06 06/01/17 07:06 Labs: Abnormal Lab Results - Last 24 Hours (Table) 06/01/17 06/01/17 Range/Units 07:06 07:06 WBC 11.0 H (3.8-10.6) k/uL RBC 2.48 L (4.30-5.90) m/uL Hgb 8.6 L (13.0-17.5) gm/dL Hct 27.1 L (39.0-53.0) % MCV 109.3 H (80.0-100.0) fL Glucose 112 H (74-99) mg/dL Microbiology - Last 24 Hours (Table) 05/29/17 10:37 Blood Culture - Preliminary Blood No Growth after 72 hours 05/30/17 08:25 Blood Culture - Preliminary Blood No Growth after 48 hours 05/31/17 07:47 Blood Culture - Preliminary Blood No Growth after 24 hours Assessment and Plan Assessment: 1 abdominal pain with fever at [facility] the abdomen did show possible cholecystitis , HIDA scan negative for acute cholecystitis Alcohol abuse -Patient will be watched for alcohol withdrawals -Positive blood cultures, blood cultures are showing staph epidermidis( contamination) -Alcoholic cirrhosis history. -Patient has history of hepatic encephalopathy for which patient is on rifaximin and lactulose -Possibly worsening kidney function: Hold off on diuretic therapy -Leukocytosis, etiology unclear. Plan: Continue on current medication regime ,monitoring and symptomatic treatment. Smoking and alcohol cessation readdressed. Diet advanced as tolerated. Increase ambulation as tolerated. Aggressive pulmonary toileting. Infectious disease consulted regarding leukocytosis in a patient with abdominal pain, fevers.. The impression and plan of care has been dictated as directed. : I performed a history and examination of this patient, discussed the same with the dictator. I agree with the dictator's note ,documented as a scribe. Any additional findings or plans will be noted.
--- NOTE | 2017-06-01 16:51 | CONS ---
CONSULTATION DATE OF SERVICE: 06/01/2017. REASON FOR CONSULTATION: 1. Fever, abdominal pain. 2. Positive blood culture. HISTORY OF PRESENT ILLNESS: The patient is a 42-year-old male with a past medical history significant for a recurrent abdominal pain that has been going on for months and did have multiple hospitalizations including at the [facility] and recently [facility]. The patient does have a history of alcoholism and his last drink was on Wednesday. He presented to the [facility] on 05/28/2017, about 4 days ago with a chief complaints of right upper quadrant pain with associated nausea, vomiting, pain described to be more of a sharp in nature, almost 7 to 8/10, and no radiation with associated nausea and vomiting and did have an episode of diarrhea. The patient subsequently was evaluated by the ER physician. On arrival to the ER, the patient was afebrile. However, subsequently on the , he did spike a fever of 100.3 to 101.2 on the . The patient has been afebrile since then. The patient did have blood cultures obtained on the suggestive of Staphylococcus epidermidis. Repeat blood culture on the , as well as remains to be negative. The patient currently being on the Unasyn and I was asked to see the patient for further recommendation regarding antibiotic therapy. The patient did have a CT of the abdomen and pelvis that was suspicious for a possible cholecystitis. However, the HIDA scan came back to be negative. The patient overall feeling better as far as abdominal pain is concerned and no further nausea vomiting and did not have any bowel movement for almost 48 hours now. REVIEW OF SYSTEMS: Constitutional: Positive for weakness and a fever on May 29 and May 30. No fever since then. Eyes: No complaint. ENT: No complaint. Respiratory: No complaint. Cardiovascular: No complaint. Genitourinary: No complaint. Genitourinary: No complaint. Gastrointestinal: As per HPI. Musculoskeletal no complaint. Integument no complaint. PSYCHOLOGICAL: No complaint. Endocrine no complaint. Neurological no complaint. PAST MEDICAL HISTORY: Significant for alcohol abuse , pancreatitis, kidney stone, asthma, and pneumonia. PAST SURGICAL HISTORY: Appendectomy, right hand tendon repair, right knee surgery. SOCIAL HISTORY: The patient is currently an every day smoker. FAMILY HISTORY: No history of hypertension. Father history of brain aneurysm. ALLERGIES: No known drug allergies. MEDICATION: Medications include the patient is currently on Xifaxan, K-Dur, Protonix, Zofran , nicotine patch, Narcan, morphine sulfate, Mag oxide, and Unasyn 3 g q.8h. EXAMINATION: Blood pressure 114/59 with a pulse of 79, temperature 97.2. He is 100% on room air. General description is a middle-aged male lying in bed in no distress. No tachypnea or accessory muscle of respiration use. HEENT: Shows slight pallor. No scleral icterus. Oral mucosa membranes dry. No pharyngeal erythema or thrush Neck trachea is central. No thyromegaly. Lungs unlabored breathing. Clear to auscultation anteriorly. No wheeze or crackles. Heart S1, S2. Regular rate and rhythm. No murmur ABDOMEN: Soft, very minimal tenderness right upper quadrant area. No guarding. No rigidity. No organomegaly. EXTREMITIES: No edema of the feet. Skin examination: No rash or mass palpable. Neurological: Patient is awake, alert, oriented x3. Mood and affect normal. LAB: UA has been negative. Hepatitis serology was negative. BUN of 9, creatinine 0.96. Hemoglobin 8.6, white count of 11. Blood culture with Staphylococcus epidermidis. Repeat blood culture has been negative. DIAGNOSTIC IMPRESSION/PLAN: 1. Patient with a positive blood culture with Streptococcus epidermidis, likely skin contamination. No clinical disease to go along with it. No need for further workup. Follow up blood culture has been negative. 2. Patient admitted to the hospital with abdominal pain in a patient who did have a history of alcoholism and possible cirrhosis and a question of possible cholecystitis. However, the HIDA scan reported to be normal. The patient overall feels responding to the Unasyn. Recommend continue with the same as no other clinical focus of infection, his lungs are clinically clear to auscultation. UA has been negative. PLAN: 1. The patient will be continued on Unasyn to which is fever seemed to have responded, source could be more likely abdominal pain. No other clinical focus of infection. 2. Await surgical evaluation as for his need for cholecystectomy or not. 3. If the patient continues to improve and remains to be afebrile and the cultures remain negative, we will give a short course of oral Augmentin to finish course of therapy. Thank you for this consultation. We will follow this patient with you. MMODL / IJN: [id number] / MAGGI
[2017-06-02] MEDS: MORPHINE SULFATE 2 MG/ML SYRINGE IVP PRN ×3 (00:06→08:16)
[2017-06-02] MEDS: AMPICILLIN-SULBACTAM 3 GM in SODIUM CHLORIDE 0.9% 100 ML IVPB SCH ×2 (00:07→08:12)
[2017-06-02] MEDS: RIFAXIMIN 550 MG TABLET PO SCH (08:12)
[2017-06-02] MEDS: NICOTINE 21MG/24HR PATCH TRANSDERM SCH (08:12)
[2017-06-02] MEDS: POTASSIUM CHLORIDE ER 20 MEQ TAB.ER PO SCH (08:13)
[2017-06-02] MEDS: PANTOPRAZOLE 40 MG/10 ML VIAL IV SCH (08:13)
[2017-06-02] MEDS: MAGNESIUM OXIDE 400 MG TAB PO SCH (08:13)
[2017-06-02] MEDS ORDERED: traMADol 50 MG TAB PO PRN (10:44)
--- NOTE | 2017-06-02 11:44 | CDI ---
Last Revision, April 2017 Documentation Clarification Form Date: 06/02/2017 10:40:00 AM From: Charu Ocasio Admit Date: 05/28/2017 5:28:00 PM Patient Name: Kenisha Paige Visit Number: [id number] ATTENTION: The Clinical Documentation Specialists (CDI) and [facility] Coding Staff appreciate your assistance in clarifying documentation. Please respond to the clarification below the line at the bottom and electronically sign. The CDI & [facility] Coding staff will review the response and follow-up if needed. Please note: Queries are made part of the Legal Health Record. If you have any questions, please contact the author of this message via ITS. Dr. Dagmar Lee consistently below normal Hgb & Hct is noted on the patient Daily CBC. Please identify the condition being monitored. History/Risk Factors: ETOH Hepatitis, Hepatic encephalopathy, ETOH cirrhosis, pancreatitis Clinical indicators: Hemoglobin: 9.9/8.8/8.2/8.6 Hematocrit: 30.3/28.9/25.8/27.1 Treatment: Labs AM daily IVF Bolus 500 cc In order to capture the severity of condition, please clarify the condition and etiology if known: Acute blood loss anemia Acute on chronic blood loss anemia Chronic blood loss anemia Iron deficiency anemia Hemolytic anemia Drug induced anemia Nutritional anemia Anemia of chronic kidney disease Unable to determine Other, please specify Please continue to document in your progress notes and discharge summary in order to capture severity of illness and risk of mortality. Include clinical findings that support your diagnosis. 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 MTDD
--- NOTE | 2017-06-02 14:34 | PN ---
PROGRESS NOTE DATE OF SERVICE: 06/02/2017 REASON FOR FOLLOWUP: 1. Positive blood culture likely contamination. 2. Fever with abdominal pain, possible abdominal source. INTERVAL HISTORY: The patient is afebrile. Has been breathing comfortably. Some nausea, but no vomiting. He is able to keep his food down. Minimal pain on the right upper quadrant area and no diarrhea. PHYSICAL EXAMINATION: Blood pressure 137/68 with a pulse of 80, temperature 97.6, he is 99% on room air. General description is a middle-aged male lying in bed, in no distress. RESPIRATORY SYSTEM: Unlabored breathing, clear to auscultation anteriorly. HEART: S1, S2. Regular rate and rhythm. ABDOMEN: Soft, no guarding, no rigidity. EXTREMITIES: No edema of the feet. LABS: No new labs have been obtained today. Blood culture repeat has been negative. DIAGNOSTIC IMPRESSION AND PLAN: 1. Patient with a positive blood culture, likely skin contamination. Repeat blood culture negative. No need for further workup for the same. 2. Patient with a fever coming with abdominal pain with CT suggestive of a possible cholecystitis. HIDA scan has been reported normal. Surgery has seen the patient and did not recommend any surgical intervention. Patient overall improvement with Unasyn. Will be given Augmentin 875 b.i.d. for another 7 to 10 days to finish a course of therapy. Continue supportive care. MMODL / IJN: [id number] /
[2017-06-02 15:19] VITALS: BP 125/62; PULSE 82; TEMP 97.4
--- NOTE | 2017-06-02 15:24 | P.DS ---
Providers Date of admission: 05/28/17 17:28 Expected date of discharge: 06/02/17 Attending physician: Dagmar Vargas Consults: 05/31/17 09:12 Consult Physician Routine Consulting Provider: Romie Boyer Consult Reason/Comments: CT scan results Do you want consulting provider notified?: Yes 06/01/17 10:00 Consult Physician Routine Consulting Provider: Marlon White Consult Reason/Comments: fever, abdominal pain Do you want consulting provider notified?: Yes Primary care physician: Ismael Warner Hospital Course: Final Diagnoses: abdominal pain with fever, CT reported possible cholecystitis, HIDA scan negative for acute cholecystitis -Alcohol abuse,Alcoholic cirrhosis history. -Fever with abdominal pain, possible abdominal source -Positive blood cultures, blood cultures are showing staph epidermidis( contamination) --Leukocytosis, etiology unclear. - history of hepatic encephalopathy Hospital course:Patient today is complaining of right lower quadrant abdominal pain, fever blood. cultures although showing staph epidermidis which is a contamination. Maintained on IV antibiotics. Evaluated by both surgery and infectious disease. Patient's CAT scan questionable for cholecystitis. patient in the past was found to have cholecystitis and patient was subsequently transferred to [facility] for drain placement which was never placed as patient had improvement in his liver enzymes at that time. Completed HIDA scan, reporting normal gallbladder ejection fraction, and no cystic duct or common bile duct obstruction. No surgical intervention recommended by surgery. Repeat blood cultures negative. Patient has been cleared by all consults for discharge. Patient is being discharged home in a stable condition with guarded prognosis. The impression and plan of care has been dictated as directed. : I performed a history and examination of this patient, discussed the same with the dictator. I agree with the dictator's note ,documented as a scribe. Any additional findings or plans will be noted. Time taken: 35 minutes Patient Condition at Discharge: Stable Plan - Discharge Summary Discharge Rx Participant: Yes New Discharge Prescriptions: New Folic Acid 1 mg PO DAILY #30 tablet Multivitamins, Thera [Multivitamin (formulary)] 1 tab PO DAILY #30 tablet Nicotine 21Mg/24Hr Patch [Habitrol] 1 patch TRANSDERM DAILY #30 patch Pantoprazole Sodium [Protonix] 40 mg PO DAILY #30 tablet. Thiamine [Vitamin B-1] 100 mg PO DAILY #30 tablet traMADol HCl [Ultram] 50 mg PO QID PRN #20 tab PRN Reason: Mild To Moderate Pain Amoxic-Pot Clav 875-125Mg [Augmentin 875-125] 1 tab PO Q12HR #20 tablet Continue Rifaximin [Xifaxan] 550 mg PO BID Potassium Chloride [Klor-Con 20] 40 meq PO DAILY Magnesium Oxide [Magox 400] 400 mg PO BID Discharge Medication List Magnesium Oxide [Magox 400] 400 mg PO BID 05/28/17 [History] Potassium Chloride [Klor-Con 20] 40 meq PO DAILY 05/28/17 [History] Rifaximin [Xifaxan] 550 mg PO BID 05/28/17 [History] Amoxic-Pot Clav 875-125Mg [Augmentin 875-125] 1 tab PO Q12HR #20 tablet [Rx] Folic Acid 1 mg PO DAILY #30 tablet 06/02/17 [Rx] Multivitamins, Thera [Multivitamin (formulary)] 1 tab PO DAILY #30 tablet [Rx] Nicotine 21Mg/24Hr Patch [Habitrol] 1 patch TRANSDERM DAILY #30 patch 06/02/17 [ Rx] Pantoprazole Sodium [Protonix] 40 mg PO DAILY #30 tablet. 06/02/17 [Rx] Thiamine [Vitamin B-1] 100 mg PO DAILY #30 tablet 06/02/17 [Rx] traMADol HCl [Ultram] 50 mg PO QID PRN #20 tab 06/02/17 [Rx] Follow up Appointment(s)/Referral(s): Mario Jiang Dr. GI Surgery [Other] - 1 Week Timmy Guevara MD [Primary Care Provider] - 3 Days Ambulatory/Diagnostic Orders: Complete Blood Count w/diff [LAB.AMB] Time Frame: 3 Days, Location: Determined By Patient Activity/Diet/Wound Care/Special Instructions: Diet: Soft, bland, low fat Activity: limited till F/U No etoh, No smoking
== END 2017-06-02 15:42 | disposition home or self-care (01) | DRG 392 ==
LOC: EC 14:51 → 4MS4W 17:28
PROVIDERS: ADMIT Internal Medicine; ATTEND Internal Medicine
DX: K29.20 Alcoholic gastritis without bleeding (principal); K70.11 Alcoholic hepatitis with ascites; K70.31 Alcoholic cirrhosis of liver with ascites; D63.8 Anemia in other chronic diseases classified elsewhere; F10.20 Alcohol dependence, uncomplicated; F17.200 Nicotine dependence, unspecified, uncomplicated; J45.909 Unspecified asthma, uncomplicated; R79.1 Abnormal coagulation profile; R19.7 Diarrhea, unspecified; Z87.01 Personal history of pneumonia (recurrent); Z87.442 Personal history of urinary calculi; Z91.14 Patient's other noncompliance with medication regimen; Z79.899 Other long term (current) drug therapy; Z82.49 Family history of ischemic heart disease and other diseases of the circulatory system
CPT/HCPCS: 36415; 74019; 74160; 78226; 80048; 80053; 80074; 81003; 82140; 82150; 83605; 83690; 85025; 85027; 85610; 85730; 87040; 87077; 87086; 87186; 96361; 96374; 96375; 96376; 99285

== ENCOUNTER 2017-06-21 21:05 | Inpatient (IN) | payer OTHER ==
[2017-06-21] MEDS ORDERED: KETOROLAC 30 MG/ML 1 ML VIAL IVP STA (21:41)
[2017-06-21] MEDS ORDERED: PANTOPRAZOLE 40 MG/10 ML VIAL IVP STA (21:41)
[2017-06-21] MEDS ORDERED: ONDANSETRON 4 MG/2 ML VIAL IVP STA (21:41)
[2017-06-21] MEDS ORDERED: SODIUM CHLORIDE 0.9% 1,000 ML IV STA (21:41)
--- NOTE | 2017-06-21 21:52 | ED ---
Abdominal Pain HPI - General Chief Complaint: Abdominal Pain Stated Complaint: ABD PAIN Time Seen by Provider: 06/21/17 21:31 Source: patient, EMS Mode of arrival: EMS Limitations: no limitations - History of Present Illness Initial Comments: This 42-year-old white male presents with a complaint of some abdominal pain. He states that it is primarily in his right upper quadrant region. He states that he's had this for months but he states that it is been worse over the past couple of days. He's had some nausea but no vomiting or diarrhea. He states that he had a fever 101 2 days ago but none since. He states that he has had the pain frequently in the past and has had inpatient workup a couple weeks ago. He is unsure what they found. He thinks that it's due to increased fluid accumulation is his abdomen. He barely did have a paracentesis at one point. He has a history of liver cirrhosis due to alcohol abuse. He has not drank in the last 1 month. He's been seeing Dr. Aburto from gastroenterology in regard to his abdominal pain and apparently is to undergo an EGD next week. He denies any other complaints or modifying factors. He is requesting pain medications. - Related Data Home Medications Medication Instructions Recorded Confirmed Magnesium Oxide [Magox 400] 400 mg PO BID 05/28/17 06/21/17 Spironolactone [Aldactone] 25 mg PO BID 06/21/17 06/21/17 Previous Rx's Medication Instructions Recorded Thiamine [Vitamin B-1] 100 mg PO DAILY #30 tablet 06/02/17 Allergies Allergy/AdvReac Type Severity Reaction Status Date / Time No Known Allergies Allergy Verified 06/21/17 21:40 Review of Systems ROS Statement: Those systems with pertinent positive or pertinent negative responses have been documented in the HPI. ROS Other: All systems not noted in ROS Statement are negative. Past Medical History Past Medical History: Asthma, Pneumonia Additional Past Medical History / Comment(s): kidney stones, etoh, pancreatits, 'liver problems" History of Any Multi-Drug Resistant Organisms: MRSA Date of last positivie culture/infection: 12/09/2013 MDRO Source:: Right First Finger Past Surgical History: Appendectomy, Orthopedic Surgery Additional Past Surgical History / Comment(s): right hand tendon repair, right knee surgery. recent procedure at [facility] stated they "drained fluid from the liver" Past Anesthesia/Blood Transfusion Reactions: No Reported Reaction Past Psychological History: PTSD Smoking Status: Current every day smoker Past Alcohol Use History: Abuse, Daily Past Drug Use History: Marijuana - Past Family History Mother Family Medical History: Hypertension Father Additional Family Medical History / Comment(s): Prostate issues. Brain aneurism General Exam - General Exam Comments Initial Comments: GENERAL: The patient is well nourished and well hydrated. VITAL SIGNS: Heart rate, blood pressure, respiratory rate reviewed as recorded in nurse's notes. EYES: Pupils are round and reactive. Extraocular movements are intact. No conjunctival / lid redness or swelling. ENT: No external evidence of injury, swelling, or ecchymosis. Airway is patent. Throat is clear. NECK: Nontender. No swelling or evidence of injury. No subcutaneous emphysema. Trachea is midline. No thyroid mass. HEART: Regular rate and rhythm. Good peripheral pulses. LUNGS/CHEST: Breath sounds clear and equal bilaterally. No rales, rhonchi, or wheezes. No ecchymosis, subcutaneous emphysema, or tenderness. ABDOMEN: There is mild tenderness present to the right upper quadrant. There may be some minimal abdominal distention. No palpable masses or organomegaly. No peritoneal signs. No abdominal wall swelling or ecchymosis. EXTREMITIES: No extremity tenderness. Normal muscle tone and function. No thoracolumbar tenderness. NEUROLOGIC: Sensation is grossly intact. Cranial nerve exam reveals face is symmetrical, tongue is midline, speech is clear. SKIN: No abrasions or ecchymosis is noted. No induration or masses noted. PSYCHIATRIC: Alert and oriented. Appropriate behavior and judgment. Limitations: no limitations Course Vital Signs 06/21/17 06/21/17 21:08 22:14 Temperature 98.6 F Pulse Rate 94 95 Respiratory 16 16 Rate Blood Pressure 112/53 128/63 O2 Sat by Pulse 98 99 Oximetry Medical Decision Making - Medical Decision Making The patient was seen and examined. All diagnostics were reviewed. He does receive some Zofran for nausea and some Toradol for pain. He states that this does not help his pain and later receives some Dilaudid intravenously. The laboratory is reviewed and does show some elevation of his pancreatic and liver function studies. It shows a chronic anemia as well. The patient's alcohol level was significantly elevated at 250. Upon questioning him regarding his alcohol intake he states that he now realizes that twisted tea is not iced tea in that it may contain some alcohol. He was thoroughly counseled regarding alcohol abuse once again. He had an abdominal x-ray which does not show any acute processes. The ultrasound of the abdomen only shows some mild fluid/ ascites. It also shows gallstones with gallbladder wall thickening consistent with acute on chronic cholecystitis. It is felt as though he would require admission to the hospital for further treatment. Case is discussed with Dr. Leblanc and he is agreeable to admission as well. - Lab Data Result diagrams: 06/21/17 21:51 06/21/17 21:51 Lab Results 06/21/17 06/21/17 06/21/17 Range/Units 21:51 21:51 21:51 WBC 10.2 (3.8-10.6) k/uL RBC 2.52 L (4.30-5.90) m/uL Hgb 8.7 L D (13.0-17.5) gm/dL Hct 26.6 L (39.0-53.0) % MCV 105.9 H (80.0-100.0) fL MCH 34.4 (25.0-35.0) pg MCHC 32.5 (31.0-37.0) g/dL RDW 16.2 H (11.5-15.5) % Plt Count 155 (150-450) k/uL Neutrophils % 54 % Lymphocytes % 30 % Monocytes % 7 % Eosinophils % 4 % Basophils % 1 % Neutrophils # 5.5 (1.3-7.7) k/uL Lymphocytes # 3.1 (1.0-4.8) k/uL Monocytes # 0.7 (0-1.0) k/uL Eosinophils # 0.4 (0-0.7) k/uL Basophils # 0.1 (0-0.2) k/uL Anisocytosis Slight Macrocytosis Moderate PT 16.2 H (9.0-12.0) sec INR 1.8 H (<1.2) APTT 29.3 (22.0-30.0) sec Sodium 145 (137-145) mmol/L Potassium 2.7 L* (3.5-5.1) mmol/L Chloride 108 H (98-107) mmol/L Carbon Dioxide 21 L (22-30) mmol/L Anion Gap 16 mmol/L BUN 9 (9-20) mg/dL Creatinine 0.88 (0.66-1.25) mg/dL Est GFR (MDRD) Af Amer >60 (>60 ml/min/1.73 sqM) Est GFR (MDRD) Non-Af >60 (>60 ml/min/1.73 sqM) Glucose 141 H (74-99) mg/dL Calcium 8.9 (8.4-10.2) mg/dL Total Bilirubin 2.7 H (0.2-1.3) mg/dL AST 48 (17-59) U/L ALT 16 L (21-72) U/L Alkaline Phosphatase 151 H (38-126) U/L Total Protein 7.5 (6.3-8.2) g/dL Albumin 3.3 L (3.5-5.0) g/dL Amylase 64 (30-110) U/L Lipase 791 H (23-300) U/L Urine Color Urine Appearance (Clear) Urine pH (5.0-8.0) Ur Specific Chestnut (1.001-1.035) Urine Protein (Negative) Urine Glucose (UA) (Negative) Urine Ketones (Negative) Urine Blood (Negative) Urine Nitrite (Negative) Urine Bilirubin (Negative) Urine Urobilinogen (<2.0) mg/dL Ur Leukocyte Esterase (Negative) Urine RBC (0-5) /hpf Urine WBC (0-5) /hpf Ur Squamous Epith Cells (0-4) /hpf Hyaline Casts (0-2) /lpf Urine Mucus (None) /hpf Serum Alcohol 250 mg/dL 06/21/17 Range/Units 21:51 WBC (3.8-10.6) k/uL RBC (4.30-5.90) m/uL Hgb (13.0-17.5) gm/dL Hct (39.0-53.0) % MCV (80.0-100.0) fL MCH (25.0-35.0) pg MCHC (31.0-37.0) g/dL RDW (11.5-15.5) % Plt Count (150-450) k/uL Neutrophils % % Lymphocytes % % Monocytes % % Eosinophils % % Basophils % % Neutrophils # (1.3-7.7) k/uL Lymphocytes # (1.0-4.8) k/uL Monocytes # (0-1.0) k/uL Eosinophils # (0-0.7) k/uL Basophils # (0-0.2) k/uL Anisocytosis Macrocytosis PT (9.0-12.0) sec INR (<1.2) APTT (22.0-30.0) sec Sodium (137-145) mmol/L Potassium (3.5-5.1) mmol/L Chloride (98-107) mmol/L Carbon Dioxide (22-30) mmol/L Anion Gap mmol/L BUN (9-20) mg/dL Creatinine (0.66-1.25) mg/dL Est GFR (MDRD) Af Amer (>60 ml/min/1.73 sqM) Est GFR (MDRD) Non-Af (>60 ml/min/1.73 sqM) Glucose (74-99) mg/dL Calcium (8.4-10.2) mg/dL Total Bilirubin (0.2-1.3) mg/dL AST (17-59) U/L ALT (21-72) U/L Alkaline Phosphatase (38-126) U/L Total Protein (6.3-8.2) g/dL Albumin (3.5-5.0) g/dL Amylase (30-110) U/L Lipase (23-300) U/L Urine Color Yellow Urine Appearance Clear (Clear) Urine pH 6.5 (5.0-8.0) Ur Specific Chestnut 1.008 (1.001-1.035) Urine Protein Negative (Negative) Urine Glucose (UA) Negative (Negative) Urine Ketones Negative (Negative) Urine Blood Moderate H (Negative) Urine Nitrite Negative (Negative) Urine Bilirubin Negative (Negative) Urine Urobilinogen 4.0 (<2.0) mg/dL Ur Leukocyte Esterase Negative (Negative) Urine RBC 10 H (0-5) /hpf Urine WBC 9 H (0-5) /hpf Ur Squamous Epith Cells <1 (0-4) /hpf Hyaline Casts 3 H (0-2) /lpf Urine Mucus Rare H (None) /hpf Serum Alcohol mg/dL Disposition Clinical Impression: Abdominal pain, Nausea, History of alcohol abuse, Alcohol intoxication, Pancreatitis, acute, Acute cholecystitis, Dehydration, Chronic anemia Disposition: ADMITTED IP TO THIS HOSP Condition: Fair Time of Disposition: 23:59 Decision Date: 06/21/17 Decision Time: 00:00
[2017-06-21 22:19] LABS: Anisocytosis Slight; Basophils # (A) 0.1 k/uL (0-0.2); Basophils % (A) 1 %; Eosinophils # (A) 0.4 k/uL (0-0.7); Eosinophils % (A) 4 %; HCT 26.6 % (39.0-53.0); Lymphocytes # (A) 3.1 k/uL (1.0-4.8); Lymphocytes % (A) 30 %; MCH 34.4 pg (25.0-35.0); MCHC 32.5 g/dL (31.0-37.0); MCV 105.9 fL (80.0-100.0); Macrocytosis Moderate; Mean Platelet Volume 8.6; Monocytes # (A) 0.7 k/uL (0-1.0); Monocytes % (A) 7 %; Neutrophils # (A) 5.5 k/uL (1.3-7.7); Neutrophils % (A) 54 %; Platelet Count 155 k/uL (150-450); RBC 2.52 m/uL (4.30-5.90); RDW 16.2 % (11.5-15.5); WBC 10.2 k/uL (3.8-10.6)
[2017-06-21 22:20] LABS: Appearance,Urine Clear (Clear); Bilirubin,Urine Negative (Negative); Blood,Urine Moderate (Negative); Color,Urine Yellow; Glucose,Urine (UA) Negative (Negative); Hyaline Casts,Urine 3 /lpf (0-2); Ketones,Urine Negative (Negative); Leukocyte Esterase,Urine Negative (Negative); Mucus,Urine Rare /hpf; Nitrite,Urine Negative (Negative); PH, Urine 6.5 (5.0-8.0); Protein,Urine Negative (Negative); RBC,Urine 10 /hpf (0-5); Specific Gravity,Urine 1.008 (1.001-1.035); Squamous Epithelial Cell,Urine <1 /hpf (0-4); WBC,Urine 9 /hpf (0-5)
[2017-06-21 22:25] LABS: HGB 8.7 gm/dL (13.0-17.5)
[2017-06-21] MEDS ORDERED: ALPRAZolam 0.25 MG TAB PO PRN (22:30)
[2017-06-21] MEDS ORDERED: PANTOPRAZOLE 40 MG/10 ML VIAL IVP SCH (22:30)
[2017-06-21] MEDS ORDERED: LORazepam 0.5 MG TAB PO PRN (22:30)
[2017-06-21] MEDS ORDERED: TEMAZEPAM 15 MG CAP PO PRN (22:30)
[2017-06-21 22:31] LABS: INR 1.8 (<1.2); Partial Thromboplastin Time 29.3 sec (22.0-30.0); Prothrombin Time 16.2 sec (9.0-12.0)
[2017-06-21 22:34] LABS: ALT 16 U/L (21-72); AST 48 U/L (17-59); Albumin 3.3 g/dL (3.5-5.0); Alkaline Phosphatase 151 U/L (38-126); Amylase 64 U/L (30-110); Anion Gap 16 mmol/L; Blood Urea Nitrogen 9 mg/dL (9-20); Calcium 8.9 mg/dL (8.4-10.2); Carbon Dioxide 21 mmol/L (22-30); Chloride 108 mmol/L (98-107); Glucose 141 mg/dL (74-99); Lipase 791 U/L (23-300); Sodium 145 mmol/L (137-145); Total Bilirubin 2.7 mg/dL (0.2-1.3); Total Protein 7.5 g/dL (6.3-8.2)
[2017-06-21 22:37] LABS: Alcohol 250 mg/dL; Potassium 2.7 mmol/L (3.5-5.1)
--- NOTE | 2017-06-21 23:21 | US ---
EXAMINATION TYPE: US abdomen complete DATE OF EXAM: 06/21/2017 COMPARISON: NONE CLINICAL HISTORY: abdominal pain. Abdomen pain EXAM MEASUREMENTS: Liver Length: 18.5 cm Gallbladder Wall: 0.5 cm CBD: 0.5 cm Spleen 14.3 cm Right Kidney: 10.1 x 5.5 x 5.0 cm Left Kidney: 11.2 x 6.3 x 4.2 cm Pancreas: Tail obscured by overlying bowel gas appears hyperechoic. Liver: Increased attenuation Gallbladder: Thickened wall with low level echoes seen. Evidence for sonographic Talamantes's sign: No CBD: wnl Spleen: Splenomegaly Right Kidney: No hydronephrosis or masses seen Left Kidney: Echogenic areas seen. Upper IVC: wnl Abd Aorta: wnl Small amount of free fluid visualized around liver and spleen. Thickened gallbladder wall with low le tala internal echoes.Echogenic areas seen in left kidney. IMPRESSION: There is mild ascites. There is gallbladder wall thickening with small gallstones consist ent with acute and chronic cholecystitis.
--- NOTE | 2017-06-21 23:28 | XR ---
EXAMINATION TYPE: XR abdomen 2V DATE OF EXAM: 06/21/2017 COMPARISON: 05/28/2017 HISTORY: Abdominal pain TECHNIQUE: 3 views FINDINGS: There is no sign of intestinal obstruction or pneumoperitoneum. Fecal pattern is normal. Vicki ng bases are clear. There are no pathologic calcifications over the kidneys. There is no sign of a ma ss. IMPRESSION: Nonacute abdomen. There is clearing of mild small bowel ileus compared to old exam.
[2017-06-21] MEDS ORDERED: POTASSIUM CHLORIDE 20 MEQ in WATER FOR INJECTION 1 100ML.BAG IVPB STA (23:52)
[2017-06-21] MEDS ORDERED: HYDROmorphone 4 MG/ML 1 ML SYRINGE IVP STA (23:54)
[2017-06-22] MEDS ORDERED: NALOXONE 0.4 MG/ML 1 ML VIAL IV PRN (00:01)
[2017-06-22] MEDS ORDERED: ACETAMINOPHEN TAB 325 MG TAB PO PRN (00:01)
[2017-06-22] MEDS ORDERED: NICOTINE 14MG/24HR PATCH TRANSDERM STA (02:59)
[2017-06-22] MEDS: HYDROmorphone 4 MG/ML 1 ML SYRINGE IVP PRN ×6 (05:54→22:31)
--- NOTE | 2017-06-22 06:39 | HP ---
HISTORY AND PHYSICAL CHIEF COMPLAINT: Abdominal pain and fever. HISTORY OF PRESENT ILLNESS: This 42-year-old gentleman with past history of asthma, pneumonia, history of kidney stones, history of pancreatitis, history of liver problems, history of MRSA being followed by Dr. Guevara in the outpatient setting with multiple hospital admissions. At one time, the patient was apparently transferred to [facility]. On the last occasion, the patient left the hospital against medical advice. The patient is complaining of abdominal pain which is mostly significant in the right upper quadrant. Patient also complains of abdominal distention also. The patient also had a previous ascitic aspiration. No history of headache, loss of consciousness, seizures. PAST MEDICAL HISTORY: Asthma, kidney problems, possibly chronic liver disease secondary to alcohol. PTSD. MEDICATIONS PRIOR TO ADMISSION: Include home medication: 1. Thiamine 100 mg p.o. daily. 2. Aldactone 25 mg p.o. b.i.d. 3. Magnesium oxide 400 mg p.o. b.i.d. ALLERGIES: None. FAMILY HISTORY: History of hypertension and prostate, brain aneurysm. SOCIAL HISTORY: History of alcohol. Significant history of smoking. History of THC. REVIEW OF SYSTEMS: ENT: No diminished vision. No diminished hearing. CARDIOVASCULAR: No angina or palpitations. Respiratory: As mentioned earlier. GI: As mentioned earlier. no dysuria. Nervous System: No numbness or weakness. ALLERGY/IMMUNOLOGY: No asthma or hayfever. Musculoskeletal: As mentioned earlier. HEMATOLOGY/ONCOLOGY: Anemia. Endocrine: No history of diabetes or hypothyroidism. Constitutional: As mentioned earlier. Dermatology: Negative. Rheumatology: Negative. Psychiatric: As mentioned earlier. PHYSICAL EXAMINATION: Alert and oriented times three. Pulse is 94, blood pressure 112/58, respirations 16, temperature 98.6, pulse ox 98% on room air. HEENT is conjunctivae normal. Oral mucosa moist. Neck is no jugular venous distention. No carotid bruit. No lymph node enlargement. Cardiovascular system: S1, S2 muffled. Respiratory: Breath sounds diminished in the bases. ABDOMEN: Soft. Mild diffuse distention present. Mild diffuse tenderness also in the right upper quadrant. No guarding. No rigidity. No mass palpable. No ascites. Legs no edema and no swelling. Nervous system: Higher functions as mentioned earlier. Moves all four limbs. Lymphatics: No lymph nodes palpable in the neck, axillae or groin. Skin: Peel angiectasia present. Joints: No active deforming arthropathy. LABS: WBC 10.2, hemoglobin is 8.7. ASSESSMENT: 1. Right upper quadrant abdominal pain, rule out acute cholecystitis/ pancreatitis. 2. Possible chronic liver disease/etoh 3. Rule out ascites. 4. Anemia macrocytic secondary from alcohol and cirrhosis of the liver. 5. History of asthma. 6. History pneumonia. 7. History of nephrolithiasis. 8. History of EtOH. 9. History of pancreatitis. 10.History of MRSA. 11.History of PTSD. 12.History of nicotine dependence. RECOMMENDATIONS AND DISCUSSION: This 42-year-old gentleman who presented with multiple complex medical issues. We will monitor the patient closely. Continue the current medications, symptomatic treatment, management. We will initiate ultrasound of the abdomen, surgical evaluation. Symptomatic treatment. Prognosis guarded because of multiple complex medical issues. Further recommendations to follow. Copy of dictation being forwarded to Dr. Guevara who is the primary physician. MMSHANNONL / SHIN: [id number] / MAGGI
[2017-06-22 06:41] LABS: ALT 16 U/L (21-72); AST 57 U/L (17-59); Alkaline Phosphatase 130 U/L (38-126); Amylase 69 U/L (30-110); Anion Gap 9 mmol/L; Blood Urea Nitrogen 9 mg/dL (9-20); Calcium 8.2 mg/dL (8.4-10.2); Carbon Dioxide 24 mmol/L (22-30); Chloride 112 mmol/L (98-107); Glucose 100 mg/dL (74-99); Lipase 593 U/L (23-300); Sodium 145 mmol/L (137-145); Total Bilirubin 2.2 mg/dL (0.2-1.3); Total Protein 6.9 g/dL (6.3-8.2)
[2017-06-22 06:48] LABS: HCT 26.3 % (39.0-53.0); HGB 8.3 gm/dL (13.0-17.5); Hypochromasia Marked; MCH 34.8 pg (25.0-35.0); MCHC 31.7 g/dL (31.0-37.0); MCV 109.8 fL (80.0-100.0); Macrocytosis Marked; Mean Platelet Volume 8.3; Platelet Count 140 k/uL (150-450); RBC 2.39 m/uL (4.30-5.90); WBC 7.7 k/uL (3.8-10.6)
[2017-06-22 07:16] LABS: Basophils # (M) 0.15 k/uL (0-0.2); Eosinophils # (M) 0.39 k/uL (0-0.7); Lymphocytes # (M) 2.93 k/uL (1.0-4.8); Monocytes # (M) 0.85 k/uL (0-1.0); Neutrophils # (M) 3.39 k/uL (1.3-7.7); Neutrophils % (M) 44 %; Nucleated Red Blood Cells 0 /100 WBC (0-0); Poikilocytosis (M) Present; Total Cells Counted 100
[2017-06-22] MEDS: POTASSIUM CHLORIDE 20 MEQ in WATER FOR INJECTION 1 100ML.BAG IVPB SCH ×2 (08:10→13:42)
[2017-06-22] MEDS: POTASSIUM CHLORIDE ER 20 MEQ TAB.ER PO SCH ×2 (08:10→10:53)
[2017-06-22] MEDS: SPIRONOLACTONE 25 MG TAB PO SCH ×2 (10:53→19:34)
[2017-06-22] MEDS: THIAMINE 100 MG TAB PO SCH (10:53)
[2017-06-22] MEDS: MAGNESIUM OXIDE 400 MG TAB PO SCH ×2 (10:53→19:34)
[2017-06-22] MEDS: HEPARIN SODIUM,PORCINE 5,000 UNIT/ML 1 ML VIAL SQ SCH ×2 (10:54→19:34)
[2017-06-22] MEDS: PANTOPRAZOLE 40 MG/10 ML VIAL IVP SCH ×2 (10:55→19:34)
--- NOTE | 2017-06-22 12:23 | P.GSCN ---
History of Present Illness Consult date: 06/22/17 Reason for Consult: Abdominal pain History of present illness: Patient hospitalized with complaints of abdominal pain. He has a long-standing history of alcohol abuse for approximately 20 years. It appears that he was previously diagnosed with advanced liver disease and has had symptomatic ascites drained because of discomfort. He has not stopped his alcohol abuse. He was following with GI as an outpatient. He was hospitalized in mid May with similar complaints. A HIDA scan was performed that was normal. He was felt to be high risk for cholecystectomy and was discharged home. He says his pain is been increasing since that time. His liver enzymes are revealing an elevated bilirubin of 2.2 which is actually down from 3.2 last month. Hemoglobin is low at 8 and platelets are 140. He is currently scheduled for an outpatient upper endoscopy by GI next week. He was last seen by GI 1-2 weeks ago. We were consulted after an ultrasound was performed showing a thickened gallbladder wall along with gallstones and some abdominal fluid. Patient's lipase is elevated today. Review of Systems The patient denies any acute changes in vision or hearing, no dysphagia or odynophagia, no chest pain or shortness of breath, no dysuria or hematuria, no headache, no runny nose, no rectal bleeding or melena, no unexplained weight loss Past Medical History Past Medical History: Asthma, Pneumonia Additional Past Medical History / Comment(s): kidney stones, etoh, pancreatits, 'liver problems" History of Any Multi-Drug Resistant Organisms: MRSA Year Discovered:: 12/09/2013 MDRO Source:: Right First Finger Past Surgical History: Appendectomy, Orthopedic Surgery Additional Past Surgical History / Comment(s): right hand tendon repair, right knee surgery. recent procedure at [facility] stated they "drained fluid from the liver" Past Anesthesia/Blood Transfusion Reactions: No Reported Reaction Past Psychological History: PTSD Smoking Status: Current every day smoker Past Alcohol Use History: Abuse, Daily Past Drug Use History: Marijuana - Past Family History Mother Family Medical History: Hypertension Father Additional Family Medical History / Comment(s): Prostate issues. Brain aneurism Medications and Allergies Home Medications Medication Instructions Recorded Confirmed Type Magnesium Oxide [Magox 400] 400 mg PO BID 05/28/17 06/21/17 History Thiamine [Vitamin B-1] 100 mg PO DAILY #30 tablet 06/02/17 06/21/17 Rx Spironolactone [Aldactone] 25 mg PO BID 06/21/17 06/21/17 History Allergies Allergy/AdvReac Type Severity Reaction Status Date / Time No Known Allergies Allergy Verified 06/21/17 21:40 Surgical - Exam Vital Signs Temp Pulse Resp BP Pulse Ox 98.6 F 94 16 112/53 98 06/21/17 21:08 06/21/17 21:08 06/21/17 21:08 06/21/17 21:08 06/21/17 21:08 Physical exam: General: Well-developed, well-nourished HEENT: Normocephalic, sclerae nonicteric Abdomen: Right upper quadrant tenderness, mild distention Extremities: No edema Neuro: Alert and oriented Results - Labs 06/22/17 06:29 06/22/17 06:11 Abnormal Lab Results - Last 24 Hours (Table) 06/21/17 06/21/17 06/21/17 Range/Units 21:51 21:51 21:51 RBC 2.52 L (4.30-5.90) m/uL Hgb 8.7 L D (13.0-17.5) gm/dL Hct 26.6 L (39.0-53.0) % MCV 105.9 H (80.0-100.0) fL RDW 16.2 H (11.5-15.5) % Plt Count (150-450) k/uL PT 16.2 H (9.0-12.0) sec INR 1.8 H (<1.2) Potassium 2.7 L* (3.5-5.1) mmol/L Chloride 108 H (98-107) mmol/L Carbon Dioxide 21 L (22-30) mmol/L Glucose 141 H (74-99) mg/dL Calcium (8.4-10.2) mg/dL Total Bilirubin 2.7 H (0.2-1.3) mg/dL ALT 16 L (21-72) U/L Alkaline Phosphatase 151 H (38-126) U/L Albumin 3.3 L (3.5-5.0) g/dL Lipase 791 H (23-300) U/L Urine Blood (Negative) Urine RBC (0-5) /hpf Urine WBC (0-5) /hpf Hyaline Casts (0-2) /lpf Urine Mucus (None) /hpf 06/21/17 06/22/17 06/22/17 Range/Units 21:51 06:11 06:29 RBC 2.39 L (4.30-5.90) m/uL Hgb 8.3 L (13.0-17.5) gm/dL Hct 26.3 L (39.0-53.0) % MCV 109.8 H (80.0-100.0) fL RDW 16.0 H (11.5-15.5) % Plt Count 140 L (150-450) k/uL PT (9.0-12.0) sec INR (<1.2) Potassium 3.0 L* (3.5-5.1) mmol/L Chloride 112 H (98-107) mmol/L Carbon Dioxide (22-30) mmol/L Glucose 100 H (74-99) mg/dL Calcium 8.2 L (8.4-10.2) mg/dL Total Bilirubin 2.2 H (0.2-1.3) mg/dL ALT 16 L (21-72) U/L Alkaline Phosphatase 130 H (38-126) U/L Albumin 3.0 L (3.5-5.0) g/dL Lipase 593 H (23-300) U/L Urine Blood Moderate H (Negative) Urine RBC 10 H (0-5) /hpf Urine WBC 9 H (0-5) /hpf Hyaline Casts 3 H (0-2) /lpf Urine Mucus Rare H (None) /hpf Diabetes panel 06/21/17 06/22/17 Range/Units 21:51 06:11 Sodium 145 145 (137-145) mmol/L Potassium 2.7 L* 3.0 L* (3.5-5.1) mmol/L Chloride 108 H 112 H (98-107) mmol/L Carbon Dioxide 21 L 24 (22-30) mmol/L BUN 9 9 (9-20) mg/dL Creatinine 0.88 0.79 (0.66-1.25) mg/dL Glucose 141 H 100 H (74-99) mg/dL Calcium 8.9 8.2 L (8.4-10.2) mg/dL AST 48 57 (17-59) U/L ALT 16 L 16 L (21-72) U/L Alkaline Phosphatase 151 H 130 H (38-126) U/L Total Protein 7.5 6.9 (6.3-8.2) g/dL Albumin 3.3 L 3.0 L (3.5-5.0) g/dL Calcium panel 06/21/17 06/22/17 Range/Units 21:51 06:11 Calcium 8.9 8.2 L (8.4-10.2) mg/dL Albumin 3.3 L 3.0 L (3.5-5.0) g/dL Pituitary panel 06/21/17 06/22/17 Range/Units 21:51 06:11 Sodium 145 145 (137-145) mmol/L Potassium 2.7 L* 3.0 L* (3.5-5.1) mmol/L Chloride 108 H 112 H (98-107) mmol/L Carbon Dioxide 21 L 24 (22-30) mmol/L BUN 9 9 (9-20) mg/dL Creatinine 0.88 0.79 (0.66-1.25) mg/dL Glucose 141 H 100 H (74-99) mg/dL Calcium 8.9 8.2 L (8.4-10.2) mg/dL Adrenal panel 06/21/17 06/22/17 Range/Units 21:51 06:11 Sodium 145 145 (137-145) mmol/L Potassium 2.7 L* 3.0 L* (3.5-5.1) mmol/L Chloride 108 H 112 H (98-107) mmol/L Carbon Dioxide 21 L 24 (22-30) mmol/L BUN 9 9 (9-20) mg/dL Creatinine 0.88 0.79 (0.66-1.25) mg/dL Glucose 141 H 100 H (74-99) mg/dL Calcium 8.9 8.2 L (8.4-10.2) mg/dL Total Bilirubin 2.7 H 2.2 H (0.2-1.3) mg/dL AST 48 57 (17-59) U/L ALT 16 L 16 L (21-72) U/L Alkaline Phosphatase 151 H 130 H (38-126) U/L Total Protein 7.5 6.9 (6.3-8.2) g/dL Albumin 3.3 L 3.0 L (3.5-5.0) g/dL Assessment and Plan (1) Acute cholecystitis Narrative/Plan: Patient with history of alcoholic liver disease. Having ongoing complaints of right upper quadrant abdominal pain with ultrasound findings suggesting the possibility of acute calculus cholecystitis. Options discussed with the patient in detail. We'll have GI see this patient. Keep nothing by mouth. Recheck liver enzymes and pancreatic enzymes tomorrow. Will likely proceed with cholecystectomy later during this admission. The increased risk of cholecystectomy related to his underlying liver disease and alcohol use was discussed in detail. GI was notified of this consultation. Current Visit: Yes Status: Acute Code(s): K81.0 - ACUTE CHOLECYSTITIS SNOMED Code(s): 16010849
[2017-06-22] MEDS ORDERED: PHYTONADIONE ORAL 5 MG/5 ML ORAL.SYRG PO STA (12:40)
--- NOTE | 2017-06-22 14:06 | PN ---
PROGRESS NOTE DATE OF SERVICE: 06/22/2017 This is a 42-year-old gentleman who was admitted with right upper quadrant abdominal pain, also history of EtOH also. The patient had possible acute on chronic cholecystitis on the ultrasound. No chest pain. No palpitations. No fever. PHYSICAL EXAM: Alert and oriented x3. Pulse 80, blood pressure is 120/76, respiration 18, temperature 97 degrees, pulse ox 98% room air. HEENT: Conjunctivae normal. NECK: No jugular venous distension. CARDIOVASCULAR: S1, S2, muffled. RESPIRATORY: Breath sounds diminished at the bases. ABDOMEN: Soft, mild diffuse tenderness present. LEGS: No edema, no swelling. NERVOUS SYSTEM: No focal deficits. LABS: WBC is 7.2, hemoglobin is 8.3, and total bilirubin is 2.2. Lipase is 593. Serum alcohol is 250. ASSESSMENT: 1. Right upper quadrant abdominal pain, possibly acute on chronic cholecystitis. 2. History of chronic liver disease secondary to ETOH. 3. Possible mild acute pancreatitis. 4. Anemia, macrocytic secondary from alcoholic cirrhosis of the liver. 5. History of asthma. 6. History of pneumonia. 7. History of nephrolithiasis. 8. History of ETOH. 9. History of pancreatitis. 10.History of Methicillin-resistant Staphylococcus aureus. 11.History of PTSD. 12.History of nicotine dependence. RECOMMENDATION: Recommend to continue current management and symptomatic treatment. Otherwise, at this time, recommend repeat labs and surgical evaluation, possible cholecystectomy. Guarded prognosis because of multiple complex medical issues. Further recommendations to follow. MMODL / IJN: [id number] /
[2017-06-22 17:35] LABS: ALT 20 U/L (21-72); AST 48 U/L (17-59); Albumin 2.9 g/dL (3.5-5.0); Alkaline Phosphatase 106 U/L (38-126); Anion Gap 8 mmol/L; Blood Urea Nitrogen 7 mg/dL (9-20); Calcium 7.9 mg/dL (8.4-10.2); Carbon Dioxide 23 mmol/L (22-30); Chloride 112 mmol/L (98-107); Glucose 112 mg/dL (74-99); Potassium 3.8 mmol/L (3.5-5.1); Sodium 143 mmol/L (137-145); Total Bilirubin 2.4 mg/dL (0.2-1.3); Total Protein 6.9 g/dL (6.3-8.2)
[2017-06-22] MEDS: ONDANSETRON 4 MG/2 ML VIAL IVP PRN (18:36)
[2017-06-23] MEDS: HYDROmorphone 4 MG/ML 1 ML SYRINGE IVP PRN ×7 (01:30→23:23)
[2017-06-23] MEDS: MAGNESIUM OXIDE 400 MG TAB PO SCH ×2 (08:01→20:26)
[2017-06-23] MEDS: HEPARIN SODIUM,PORCINE 5,000 UNIT/ML 1 ML VIAL SQ SCH (08:01)
[2017-06-23] MEDS: SPIRONOLACTONE 25 MG TAB PO SCH ×2 (08:01→20:26)
[2017-06-23] MEDS: PANTOPRAZOLE 40 MG/10 ML VIAL IVP SCH (08:01)
[2017-06-23] MEDS: THIAMINE 100 MG TAB PO SCH (08:02)
[2017-06-23] MEDS: ONDANSETRON 4 MG/2 ML VIAL IVP PRN ×2 (08:02→12:50)
--- NOTE | 2017-06-23 08:30 | P.CONS ---
History of Present Illness - Reason for Consult Consult date: 06/23/17 liver disease Requesting physician: Alexx Van - History of Present Illness 42-year-old male with a long-standing history of alcohol abuse currently consuming alcohol admitted with generalized/right upper quadrant abdominal pain intermittently for several months with elevated serum alcohol level 250. reports fever as high as 101 a few days ago but no recurrence. Patient has been drinking alcohol based drink called "Twisted tea" prior to admission. Additional past medical history multiple admissions for alcohol hepatitis/ intoxication, renal calculi, asthma, gallstones, chronic anemia suspected secondary to alcoholism, MRSA, PTSD, nicotine cigarette dependency,ascites status post paracentesis approximately 6 months ago at [facility], chronic alcohol hepatitis, underlying alcohol liver disease, and alcohol pancreatitis. The longest patient has been without an alcohol drink is 3 weeks. He usually drinks a 12 pack of beer or pint/fifth of liquor daily. hepatitis screen May 2017 nonreactive. hemoglobin 7.7-9.9 over the last few months. Hemoglobin averaged between 11-12 range past 4-6 months. MCV 108. Platelet 140. INR 1.7. BUN 7. Creatinine 0.5. Potassium on admission 2.7 presently 3.5. Sodium 142. Total bilirubin fluctuates between 2-3 range presently 3.5. AST 50. ALT 25. Alkaline phosphatase 115. Lipase on admission [address]ylase [address] imaging a month ago reported gallbladder wall thickening small amount of pericholecystic fluid and fat stranding. CBD partially obscured measuring 7 mm. No calculi seen. Hepatobiliary scan normal gallbladder ejection fraction 76 % in May 2017. Ultrasound abdomen 2 days ago reported small amount of free fluid around the liver and spleen with a thickened gallbladder wall with low-level internal echoes. CBD 0.5 cm Liver length 18.5 cm. Spleen 14.3 cm. Denies hematemesis hematochezia melena. Review of Systems Constitutional: Denies fever, chills, sweats, weight gain, or loss. HEENT: Negative for migraines, blurred vision or loss, earaches, drainage, tinnitus, oral mucosal lesions, dysphagia, or odynophagia. Cardiac: asthma. Pneumonia. Nicotine cigarette dependency.Negative for chest pain, arrhythmias, or palpitation. Respiratory: Negative for shortness of breath, hemoptysis, cough, or sputum production. Gastrointestinal: See HPI for pertinent findings. Genitourinary: Negative for hematuria, urgency, frequency, polyuria, dysuria, or penile discharge. Musculoskeletal: Negative for muscle aches, swelling, arthritis, and arthralgias. Neurologic: Negative for stroke or TIA. Endocrine: Negative for thyroid problems. Skin: Negative for rash or itching. Psychiatric: PTSD. Past Medical History Past Medical History: Asthma, Liver Disease, Pneumonia Additional Past Medical History / Comment(s): ETOH abuse, liver cirrhosis, abdominal ascities, pancreatitis, gallstones, pneumonia, nephrolithiasis, chronic anemia. History of Any Multi-Drug Resistant Organisms: MRSA Year Discovered:: 12/09/2013 MDRO Source:: Right First Finger Past Surgical History: Appendectomy, Orthopedic Surgery Additional Past Surgical History / Comment(s): Paracentesis at [facility] about 6 months ago, right hand tendon repair, right knee arthroscopy, cystoscopy for kidney stone removal. Past Anesthesia/Blood Transfusion Reactions: No Reported Reaction Smoking Status: Current every day smoker - Past Family History Mother Family Medical History: Hypertension Father Additional Family Medical History / Comment(s): Prostate issues. Brain aneurism. Medications and Allergies Home Medications Medication Instructions Recorded Confirmed Type Magnesium Oxide [Magox 400] 400 mg PO BID 05/28/17 06/21/17 History Thiamine [Vitamin B-1] 100 mg PO DAILY #30 tablet 06/02/17 06/21/17 Rx Spironolactone [Aldactone] 25 mg PO BID 06/21/17 06/21/17 History Allergies Allergy/AdvReac Type Severity Reaction Status Date / Time No Known Allergies Allergy Verified 06/21/17 21:40 Physical Exam Vitals: Vital Signs Temp Pulse Pulse Resp BP BP Pulse Ox 06/23/17 07:00 97.3 F L 78 16 127/61 97 06/22/17 23:00 96.8 F L 76 20 142/72 97 06/22/17 15:00 96.9 F L 79 18 131/70 97 06/22/17 11:25 97.0 F L 80 18 123/70 99 06/22/17 11:14 97.3 F L 74 18 110/60 98 Intake and Output 06/22/17 06/23/17 06/23/17 22:59 06:59 14:59 Intake Total 0 Balance 0 Intake: Oral 0 Other: Voiding Method Toilet Toilet # Voids 2 2 General appearance: The patient is alert, oriented, in no acute distress. HET: Head is normocephalic and atraumatic. Pupils are equal and reactive. Oropharynx is clear without lesions. Neck: Supple without lymphadenopathy. Trachea midline. Heart: S1 S2. Regular rate and rhythm. Lungs: No crackles or wheezes are heard. Abdomen: Soft, mild tenderness midepigastrium, nondistended with bowel sounds. No peritoneal signs. No palpable organomegaly or masses. Extremities: Normal skin color and turgor. No cyanosis, rash, ulceration, clubbing, or edema. Radial and pedal pulses are 2/4 bilaterally. Neurological: No focal deficits. Strength and sensation are grossly intact. Results CBC & Chem 7: 06/24/17 07:17 06/24/17 07:17 Labs: Abnormal Lab Results - Last 24 Hours (Table) 06/22/17 Range/Units 17:01 Chloride 112 H (98-107) mmol/L BUN 7 L (9-20) mg/dL Creatinine 0.59 L (0.66-1.25) mg/dL Glucose 112 H (74-99) mg/dL Calcium 7.9 L (8.4-10.2) mg/dL Total Bilirubin 2.4 H (0.2-1.3) mg/dL ALT 20 L (21-72) U/L Albumin 2.9 L (3.5-5.0) g/dL Microbiology - Last 24 Hours (Table) 06/21/17 21:51 Blood Culture - Preliminary Blood No Growth after 24 hours US - abdomen: report reviewed (Dr. Huff) Assessment and Plan (1) Chronic alcoholic hepatitis Narrative/Plan: 42-year-old male admitted with acute alcohol intoxication alcohol pancreatitis and chronic right upper generalized abdominal pain with intermittent nausea vomiting for several months duration with underlying chronic alcohol hepatitis liver disease and EtOH abuse. Chronic right upper quadrant abdominal pain multifactorial suspected secondary to alcohol pancreatitis chronic alcohol hepatitis, however, superimposed underlying cholecystitis possible calculus cholecystitis possible biliary colic cannot be entirely excluded. Current Visit: Yes Status: Acute Code(s): K70.10 - ALCOHOLIC HEPATITIS WITHOUT ASCITES SNOMED Code(s): 249243498 (2) RUQ abdominal pain Current Visit: Yes Status: Acute Code(s): R10.11 - RIGHT UPPER QUADRANT PAIN SNOMED Code(s): 109475792 (3) ETOH abuse Current Visit: Yes Status: Acute Code(s): F10.10 - ALCOHOL ABUSE, UNCOMPLICATED SNOMED Code(s): 01626535 (4) Alcoholic pancreatitis Current Visit: Yes Status: Acute Code(s): K85.20 - ALCOHOL INDUCED ACUTE PANCREATITIS WITHOUT NECROSIS OR INFCT SNOMED Code(s): 617646167 (5) Chronic alcoholic liver disease Current Visit: Yes Status: Acute Code(s): K70.9 - ALCOHOLIC LIVER DISEASE, UNSPECIFIED SNOMED Code(s): 811935433 (6) Alcohol intoxication Current Visit: Yes Status: Acute Code(s): F10.929 - ALCOHOL USE, UNSPECIFIED WITH INTOXICATION, UNSPECIFIED SNOMED Code(s): 84936090 (7) Macrocytic anemia Narrative/Plan: Suspect alcohol related macrocytic anemia without overt GI bleeding. Clinically no evidence to suggest active GI bleed. Current Visit: Yes Status: Acute Code(s): D53.9 - NUTRITIONAL ANEMIA, UNSPECIFIED SNOMED Code(s): 17064433 (8) Coagulopathy Narrative/Plan: secondary to underlying alcohol liver disease Current Visit: Yes Status: Chronic Code(s): D68.9 - COAGULATION DEFECT, UNSPECIFIED SNOMED Code(s): 12670629 Plan: 1. Endoscopic procedures not recommended at this time; outpatient EGD/ colonosocpy discussed. Review of biochemical profile consistent with acute alcohol intoxication, alcohol pancreatitis in component of chronic alcohol hepatitis. General surgery following closely we'll defer to their opinion for necessary surgical intervention. alcohol abstinence strongly advised. Continue with Protonix 40 mg IV daily. Monitor CBC. Thank you for this kind referral and the opportunity to participate in the care of your patient. This consultation was discussed with Dr. Huff. The impression and plan of care have been directed as dictated.
[2017-06-23] MEDS ORDERED: PHYTONADIONE ORAL 5 MG/5 ML ORAL.SYRG PO STA (08:56)
--- NOTE | 2017-06-23 08:59 | P.PN ---
Subjective Progress Note Date: 06/23/17 Principal diagnosis: Calculus cholecystitis Patient says his pain is slightly improved. Morning labs are pending. GI saw the patient earlier today. He is hungry. INR from admission was elevated at 1.8. Objective - Vital Signs Vital signs: Vital Signs Temp 97.3 F L 06/23/17 07:00 Pulse 78 06/23/17 07:00 Resp 16 06/23/17 07:00 BP 127/61 06/23/17 07:00 Pulse Ox 97 06/23/17 07:00 Intake & Output 06/22/17 06/23/17 06/23/17 18:59 06:59 18:59 Intake Total 0 Balance 0 Intake: Oral 0 Other: Voiding Method Toilet # Voids 1 2 # Bowel Movements 0 - Exam Abdomen: Soft, nondistended, mild right upper quadrant tenderness - Labs CBC & Chem 7: 06/22/17 06:29 06/22/17 17:01 Labs: Abnormal Lab Results - Last 24 Hours (Table) 06/22/17 Range/Units 17:01 Chloride 112 H (98-107) mmol/L BUN 7 L (9-20) mg/dL Creatinine 0.59 L (0.66-1.25) mg/dL Glucose 112 H (74-99) mg/dL Calcium 7.9 L (8.4-10.2) mg/dL Total Bilirubin 2.4 H (0.2-1.3) mg/dL ALT 20 L (21-72) U/L Albumin 2.9 L (3.5-5.0) g/dL Microbiology - Last 24 Hours (Table) 06/21/17 21:51 Blood Culture - Preliminary Blood No Growth after 24 hours Assessment and Plan (1) Acute cholecystitis Narrative/Plan: (Clear liquid diet. Await morning labs. We'll tentatively plan cholecystectomy tomorrow. Risks of bleeding, infection, bile leak, bile duct injury, conversion to an open procedure, retained common bile duct stone, trocar injury, ascitic fluid leak, anesthesia related complications, progressive liver failure were discussed. He understands and wishes to proceed. Current Visit: Yes Status: Acute Code(s): K81.0 - ACUTE CHOLECYSTITIS SNOMED Code(s): 46693677
[2017-06-23 09:17] LABS: ALT 25 U/L (21-72); AST 50 U/L (17-59); Albumin 3.1 g/dL (3.5-5.0); Alkaline Phosphatase 115 U/L (38-126); Amylase 53 U/L (30-110); Anion Gap 9 mmol/L; Blood Urea Nitrogen 5 mg/dL (9-20); Calcium 8.6 mg/dL (8.4-10.2); Carbon Dioxide 23 mmol/L (22-30); Chloride 110 mmol/L (98-107); Glucose 104 mg/dL (74-99); Lipase 381 U/L (23-300); Potassium 3.5 mmol/L (3.5-5.1); Sodium 142 mmol/L (137-145); Total Bilirubin 3.5 mg/dL (0.2-1.3); Total Protein 7.2 g/dL (6.3-8.2)
[2017-06-23 09:20] LABS: INR 1.7 (<1.2); Prothrombin Time 15.2 sec (9.0-12.0)
[2017-06-23 09:22] LABS: Anisocytosis Slight; Basophils # (A) 0.1 k/uL (0-0.2); Basophils % (A) 1 %; Eosinophils # (A) 0.5 k/uL (0-0.7); Eosinophils % (A) 7 %; HCT 24.9 % (39.0-53.0); HGB 7.7 gm/dL (13.0-17.5); Hypochromasia Slight; Lymphocytes # (A) 1.9 k/uL (1.0-4.8); Lymphocytes % (A) 27 %; MCH 33.6 pg (25.0-35.0); MCHC 30.9 g/dL (31.0-37.0); MCV 108.8 fL (80.0-100.0); Macrocytosis Marked; Mean Platelet Volume 8.6; Monocytes # (A) 0.6 k/uL (0-1.0); Monocytes % (A) 8 %; Neutrophils # (A) 3.7 k/uL (1.3-7.7); Neutrophils % (A) 53 %; Platelet Count 140 k/uL (150-450); RBC 2.29 m/uL (4.30-5.90); RDW 16.5 % (11.5-15.5)
[2017-06-23] MEDS ORDERED: HYDROmorphone 2 MG/ML 1 ML SYRINGE IVP PRN (15:51)
[2017-06-23] MEDS: PANTOPRAZOLE 40 MG TABLET PO SCH (17:22)
[2017-06-23] MEDS: NICOTINE 21MG/24HR PATCH TRANSDERM SCH (18:39)
[2017-06-24] MEDS: HYDROmorphone 4 MG/ML 1 ML SYRINGE IVP PRN ×3 (02:52→09:28)
[2017-06-24 07:41] LABS: Anisocytosis Slight; Basophils # (A) 0.1 k/uL (0-0.2); Basophils % (A) 1 %; Eosinophils # (A) 0.5 k/uL (0-0.7); Eosinophils % (A) 7 %; HCT 24.7 % (39.0-53.0); HGB 7.8 gm/dL (13.0-17.5); Lymphocytes # (A) 1.9 k/uL (1.0-4.8); Lymphocytes % (A) 28 %; MCH 33.7 pg (25.0-35.0); MCHC 31.4 g/dL (31.0-37.0); MCV 107.2 fL (80.0-100.0); Macrocytosis Marked; Mean Platelet Volume 8.6; Monocytes # (A) 0.7 k/uL (0-1.0); Monocytes % (A) 10 %; Neutrophils # (A) 3.5 k/uL (1.3-7.7); Neutrophils % (A) 50 %; Platelet Count 122 k/uL (150-450); RDW 16.4 % (11.5-15.5)
[2017-06-24 07:51] LABS: INR 1.6 (<1.2)
[2017-06-24 07:52] LABS: Prothrombin Time 14.4 sec (9.0-12.0)
[2017-06-24 07:56] LABS: ALT 23 U/L (21-72); AST 60 U/L (17-59); Alkaline Phosphatase 110 U/L (38-126); Anion Gap 12 mmol/L; Blood Urea Nitrogen 3 mg/dL (9-20); Carbon Dioxide 22 mmol/L (22-30); Chloride 109 mmol/L (98-107); Glucose 102 mg/dL (74-99); Potassium 3.1 mmol/L (3.5-5.1); Sodium 143 mmol/L (137-145); Total Protein 7.1 g/dL (6.3-8.2)
[2017-06-24] MEDS: SPIRONOLACTONE 25 MG TAB PO SCH ×2 (08:08→20:06)
[2017-06-24] MEDS: PANTOPRAZOLE 40 MG TABLET PO SCH ×2 (08:08→17:15)
[2017-06-24] MEDS: MAGNESIUM OXIDE 400 MG TAB PO SCH ×2 (08:08→20:06)
[2017-06-24] MEDS: THIAMINE 100 MG TAB PO SCH (08:09)
[2017-06-24] MEDS: NICOTINE 21MG/24HR PATCH TRANSDERM SCH (08:09)
[2017-06-24] MEDS ORDERED: POTASSIUM CHLORIDE ER 20 MEQ TAB.ER PO STA (08:47)
[2017-06-24] MEDS: POTASSIUM CHLORIDE 10 MEQ in WATER FOR INJECTION 1 100ML.BAG IVPB SCH ×4 (09:28→20:50)
[2017-06-24] MEDS: PHYTONADIONE ORAL 5 MG/5 ML ORAL.SYRG PO SCH (09:33)
--- NOTE | 2017-06-24 09:48 | P.PN ---
Subjective Progress Note Date: 06/24/17 Principal diagnosis: Abdominal pain alcohol intoxication chronic alcohol hepatitis pancreatitis anemia Feels well today. Possible cholecystectomy today. Denies hematemesis hematochezia melena. Afebrile. LFTs relatively unchanged from yesterday. Receiving vitamin K yesterday INR 1.6 this morning. Lipase improved. Still reports upper abdominal right upper quadrant discomfort. Hemoglobin 7.8. Platelet transfusion ordered. Objective - Vital Signs Vital signs: Vital Signs Temp 98.5 F 06/24/17 07:00 Pulse 93 06/24/17 07:00 Resp 16 06/24/17 07:00 BP 131/73 06/24/17 07:00 Pulse Ox 99 06/24/17 07:00 Intake & Output 06/23/17 06/24/17 06/24/17 18:59 06:59 18:59 Other: Voiding Method Toilet # Voids 2 1 - Exam General appearance: The patient is alert, oriented, in no acute distress. HET: Head is normocephalic and atraumatic. Pupils are equal and reactive. Oropharynx is clear without lesions. Neck: Supple without lymphadenopathy. Trachea midline. Heart: S1 S2. Regular rate and rhythm. Lungs: No crackles or wheezes are heard. Abdomen: Soft, tenderness midepigastrium right upper quadrant, nondistended with bowel sounds. No peritoneal signs. No palpable organomegaly or masses. Extremities: Normal skin color and turgor. No cyanosis, rash, ulceration, clubbing, or edema. Radial and pedal pulses are 2/4 bilaterally. Neurological: No focal deficits. Strength and sensation are grossly intact. - Labs CBC & Chem 7: 06/24/17 07:17 06/24/17 07:17 Labs: Abnormal Lab Results - Last 24 Hours (Table) 06/24/17 06/24/17 06/24/17 Range/Units 07:17 07:17 07:17 RBC 2.30 L (4.30-5.90) m/uL Hgb 7.8 L (13.0-17.5) gm/dL Hct 24.7 L (39.0-53.0) % MCV 107.2 H (80.0-100.0) fL RDW 16.4 H (11.5-15.5) % Plt Count 122 L (150-450) k/uL PT 14.4 H (9.0-12.0) sec INR 1.6 H (<1.2) Potassium 3.1 L (3.5-5.1) mmol/L Chloride 109 H (98-107) mmol/L BUN 3 L (9-20) mg/dL Creatinine 0.58 L (0.66-1.25) mg/dL Glucose 102 H (74-99) mg/dL Total Bilirubin 3.0 H (0.2-1.3) mg/dL AST 60 H (17-59) U/L Albumin 3.0 L (3.5-5.0) g/dL Crossmatch 06/24/17 Range/Units 07:17 RBC (4.30-5.90) m/uL Hgb (13.0-17.5) gm/dL Hct (39.0-53.0) % MCV (80.0-100.0) fL RDW (11.5-15.5) % Plt Count (150-450) k/uL PT (9.0-12.0) sec INR (<1.2) Potassium (3.5-5.1) mmol/L Chloride (98-107) mmol/L BUN (9-20) mg/dL Creatinine (0.66-1.25) mg/dL Glucose (74-99) mg/dL Total Bilirubin (0.2-1.3) mg/dL AST (17-59) U/L Albumin (3.5-5.0) g/dL Crossmatch See Detail Microbiology - Last 24 Hours (Table) 06/21/17 21:51 Blood Culture - Preliminary Blood No Growth after 48 hours Assessment and Plan (1) Chronic alcoholic hepatitis Narrative/Plan: 42-year-old male admitted with acute alcohol intoxication alcohol pancreatitis and chronic right upper generalized abdominal pain with intermittent nausea vomiting for several months duration with underlying chronic alcohol hepatitis liver disease and EtOH abuse. Chronic right upper quadrant abdominal pain multifactorial suspected secondary to alcohol pancreatitis chronic alcohol hepatitis, however, superimposed underlying cholecystitis possible calculus cholecystitis possible biliary colic cannot be entirely excluded. Current Visit: Yes Status: Acute Code(s): K70.10 - ALCOHOLIC HEPATITIS WITHOUT ASCITES SNOMED Code(s): 757194804 (2) RUQ abdominal pain Current Visit: Yes Status: Acute Code(s): R10.11 - RIGHT UPPER QUADRANT PAIN SNOMED Code(s): 268889170 (3) ETOH abuse Current Visit: Yes Status: Acute Code(s): F10.10 - ALCOHOL ABUSE, UNCOMPLICATED SNOMED Code(s): 13553777 (4) Alcoholic pancreatitis Current Visit: Yes Status: Acute Code(s): K85.20 - ALCOHOL INDUCED ACUTE PANCREATITIS WITHOUT NECROSIS OR INFCT SNOMED Code(s): 142039764 (5) Chronic alcoholic liver disease Current Visit: Yes Status: Acute Code(s): K70.9 - ALCOHOLIC LIVER DISEASE, UNSPECIFIED SNOMED Code(s): 905303828 (6) Alcohol intoxication Current Visit: Yes Status: Acute Code(s): F10.929 - ALCOHOL USE, UNSPECIFIED WITH INTOXICATION, UNSPECIFIED SNOMED Code(s): 31126892 (7) Macrocytic anemia Narrative/Plan: Suspect alcohol related macrocytic anemia without overt GI bleeding. Clinically no evidence to suggest active GI bleed. Current Visit: Yes Status: Acute Code(s): D53.9 - NUTRITIONAL ANEMIA, UNSPECIFIED SNOMED Code(s): 20782230 (8) Coagulopathy Narrative/Plan: secondary to underlying alcohol liver disease Current Visit: Yes Status: Chronic Code(s): D68.9 - COAGULATION DEFECT, UNSPECIFIED SNOMED Code(s): 90453901 Plan: 1. Inpatient endoscopic procedures not planned at this time. EGD colonoscopy scheduled as an outpatient 07/09/[address] Huff for evaluation of macrocytic anemia; this was discussed with general surgeon Dr. Van. We'll pursue inpatient endoscopic procedures if necessary. General surgery following closely we'll defer to their opinion for necessary surgical intervention. alcohol abstinence strongly advised. Continue with Protonix 40 mg IV daily. We 'll continue to follow patient closely. Stool occult blood testing requested. Assessment and plan a care discussed with Dr. Huff
--- NOTE | 2017-06-24 10:12 | P.PN ---
Subjective Progress Note Date: 06/24/17 Progress note being dictated for Dr. Leblanc Interval history: This a 42-year-old gentleman admitted with right upper quadrant abdominal pain, alcohol abuse and multiple other medical issues. Evaluated by both GI and surgery with recommendations noted. Scheduled for cholecystectomy tomorrow. INR 1.7, Received vitamin K this a.m. Complains of right upper quadrant pain. Denies chest pain, palpitations or increasing shortness of breath. Objective - Vital Signs Vital signs: Vital Signs Temp 97.1 F L 06/23/17 14:54 Pulse 71 06/23/17 14:54 Resp 16 06/23/17 14:54 BP 135/76 06/23/17 14:54 Pulse Ox 95 06/23/17 14:54 Intake & Output 06/22/17 06/23/17 06/23/17 18:59 06:59 18:59 Intake Total 0 Balance 0 Intake: Oral 0 Other: Voiding Method Toilet # Voids 1 2 2 # Bowel Movements 0 - Exam PHYSICAL EXAM: VITAL SIGNS: As above GENERAL: Sitting up in bed, no acute distress HEENT: Conjunctivae normal. eyes normal. Oral mucosa moist NECK: No JVD. No thyroid enlargement. No LNs CARDIOVASCULAR: S1, S2 muffled. No murmur RESPIRATION: Breath sounds diminished in the bases. No rhonchi or crackles. No bronchial breathing. ABDOMEN: Soft, mild right upper quadrant tenderness . No guarding. no masses palpable.Bowel sounds heard. LEGS: No edema. no swelling PSYCHIATRY: Alert and oriented -3, mood and affect normal. NERVOUS SYSTEM: Cranial N 2-12 grossly normal. Moves all 4 limbs. Diffuse weakness No focal deficits. No sensory deficit. Skin: no ulcer no rash Joints: No active swelling. No inflammation. Lymphatic system. No LN neck axilla or groin. - Labs CBC & Chem 7: 06/24/17 07:17 06/24/17 07:17 Labs: Abnormal Lab Results - Last 24 Hours (Table) 06/22/17 06/23/17 06/23/17 Range/Units 17:01 08:21 08:21 RBC 2.29 L (4.30-5.90) m/uL Hgb 7.7 L (13.0-17.5) gm/dL Hct 24.9 L (39.0-53.0) % MCV 108.8 H (80.0-100.0) fL MCHC 30.9 L (31.0-37.0) g/dL RDW 16.5 H (11.5-15.5) % Plt Count 140 L (150-450) k/uL PT (9.0-12.0) sec INR (<1.2) Chloride 112 H 110 H (98-107) mmol/L BUN 7 L 5 L (9-20) mg/dL Creatinine 0.59 L 0.59 L (0.66-1.25) mg/dL Glucose 112 H 104 H (74-99) mg/dL Calcium 7.9 L (8.4-10.2) mg/dL Total Bilirubin 2.4 H 3.5 H (0.2-1.3) mg/dL ALT 20 L (21-72) U/L Albumin 2.9 L 3.1 L (3.5-5.0) g/dL Lipase 381 H (23-300) U/L 06/23/17 Range/Units 08:21 RBC (4.30-5.90) m/uL Hgb (13.0-17.5) gm/dL Hct (39.0-53.0) % MCV (80.0-100.0) fL MCHC (31.0-37.0) g/dL RDW (11.5-15.5) % Plt Count (150-450) k/uL PT 15.2 H (9.0-12.0) sec INR 1.7 H (<1.2) Chloride (98-107) mmol/L BUN (9-20) mg/dL Creatinine (0.66-1.25) mg/dL Glucose (74-99) mg/dL Calcium (8.4-10.2) mg/dL Total Bilirubin (0.2-1.3) mg/dL ALT (21-72) U/L Albumin (3.5-5.0) g/dL Lipase (23-300) U/L Microbiology - Last 24 Hours (Table) 06/21/17 21:51 Blood Culture - Preliminary Blood No Growth after 24 hours Assessment and Plan Assessment: 1. Right upper quadrant abdominal pain, possibly acute on chronic cholecystitis 2. Chronic liver disease secondary to EtOH abuse 3. Possible mild acute pancreatitis 4. Anemia, macrocytic secondary to alcoholic cirrhosis of liver 5.Chronic intermittent asthma Plan: Continue on current medication regime ,monitoring and symptomatic treatment. As mentioned above scheduled for her cholecystectomy tomorrow. Vitamin K 10 mg po daily. Alcohol cessation discussed, including resource groups at discharge. Further recommendations to follow. The impression and plan of care has been dictated as directed. : I performed a history and examination of this patient, discussed the same with the dictator. I agree with the dictator's note ,documented as a scribe. Any additional findings or plans will be noted.
[2017-06-24] MEDS ORDERED: IV FLUID CONTINUATION 275 ML IV ONE ×2 (12:37)
[2017-06-24] MEDS ORDERED: Magnesium Replacement Protocol 1 EACH MISC MISCELLANE PRN (12:44)
[2017-06-24] MEDS ORDERED: Potassium Replacement Protocol 1 EACH MISC MISCELLANE PRN (12:44)
--- NOTE | 2017-06-24 12:50 | P.PN ---
Subjective Progress Note Date: 06/24/17 Progress note being dictated for Dr. Leblanc Interval history: This a 42-year-old gentleman admitted with right upper quadrant abdominal pain, alcohol abuse and multiple other medical issues. Evaluated by both GI and surgery with recommendations noted. Scheduled for cholecystectomy tomorrow. INR 1.7, Received vitamin K this a.m. Complains of right upper quadrant pain. Denies chest pain, palpitations or increasing shortness of breath. 06/24/17 LFTs unchanged. Lipase improving. Receiving transfusion packed RBCs 1 unit for hemoglobin of 7.8 . Platelet transfusion pending. INR 1.6 received vitamin K .receiving potassium supplements for potassium at 3.1, magnesium level pending.Persistent right upper quadrant pain. Cholecystectomy pending, for today. Objective - Vital Signs Vital signs: Vital Signs Temp 98.5 F 06/24/17 07:00 Pulse 93 06/24/17 07:00 Resp 16 06/24/17 07:00 BP 131/73 06/24/17 07:00 Pulse Ox 99 06/24/17 07:00 Intake & Output 06/23/17 06/24/17 06/24/17 18:59 06:59 18:59 Other: Voiding Method Toilet # Voids 2 1 - Exam PHYSICAL EXAM: VITAL SIGNS: As above GENERAL: Sitting up in bed, no acute distress HEENT: Conjunctivae normal. eyes normal. NECK: No JVD. No thyroid enlargement. No LNs CARDIOVASCULAR: S1, S2 muffled. No murmur RESPIRATION: Breath sounds diminished in the bases. No rhonchi or crackles. No bronchial breathing. ABDOMEN: Soft, mild right upper quadrant tenderness . No guarding. no masses palpable.Bowel sounds heard. LEGS: No edema. no swelling PSYCHIATRY: Alert and oriented -3, mood and affect normal. NERVOUS SYSTEM: Cranial N 2-12 grossly normal. Moves all 4 limbs. Diffuse weakness No focal deficits. No sensory deficit. Skin: no ulcer no rash Joints: No active swelling. No inflammation. Lymphatic system. No LN neck axilla or groin. - Labs CBC & Chem 7: 06/24/17 07:17 06/24/17 07:17 Labs: Abnormal Lab Results - Last 24 Hours (Table) 06/24/17 06/24/17 06/24/17 Range/Units 07:17 07:17 07:17 RBC 2.30 L (4.30-5.90) m/uL Hgb 7.8 L (13.0-17.5) gm/dL Hct 24.7 L (39.0-53.0) % MCV 107.2 H (80.0-100.0) fL RDW 16.4 H (11.5-15.5) % Plt Count 122 L (150-450) k/uL PT 14.4 H (9.0-12.0) sec INR 1.6 H (<1.2) Potassium 3.1 L (3.5-5.1) mmol/L Chloride 109 H (98-107) mmol/L BUN 3 L (9-20) mg/dL Creatinine 0.58 L (0.66-1.25) mg/dL Glucose 102 H (74-99) mg/dL Total Bilirubin 3.0 H (0.2-1.3) mg/dL AST 60 H (17-59) U/L Albumin 3.0 L (3.5-5.0) g/dL Crossmatch 06/24/17 Range/Units 07:17 RBC (4.30-5.90) m/uL Hgb (13.0-17.5) gm/dL Hct (39.0-53.0) % MCV (80.0-100.0) fL RDW (11.5-15.5) % Plt Count (150-450) k/uL PT (9.0-12.0) sec INR (<1.2) Potassium (3.5-5.1) mmol/L Chloride (98-107) mmol/L BUN (9-20) mg/dL Creatinine (0.66-1.25) mg/dL Glucose (74-99) mg/dL Total Bilirubin (0.2-1.3) mg/dL AST (17-59) U/L Albumin (3.5-5.0) g/dL Crossmatch See Detail Microbiology - Last 24 Hours (Table) 06/21/17 21:51 Blood Culture - Preliminary Blood No Growth after 48 hours Assessment and Plan Assessment: 1. Right upper quadrant abdominal pain, possibly acute on chronic cholecystitis , cholecystectomy pending 2. Chronic liver disease secondary to EtOH abuse 3. Possible mild acute pancreatitis 4. Anemia, macrocytic secondary to alcoholic cirrhosis of liver 5.Chronic intermittent asthma Plan: Continue on current medication regime , PPI, monitoring and symptomatic treatment. Pending cholecystectomy. Potassium replacement in progress, repeat lytes at 1600. Close monitoring of hemoglobin with repeat labs ordered for a.m. Alcohol cessation reinforced. Further recommendations to follow. The impression and plan of care has been dictated as directed. : I performed a history and examination of this patient, discussed the same with the dictator. I agree with the dictator's note ,documented as a scribe. Any additional findings or plans will be noted.
[2017-06-24] MEDS ORDERED: DEXAMETHASONE SOD PHOS (MDV) 100 MG/10 ML VIAL IV ONE (13:04)
[2017-06-24] MEDS ORDERED: ONDANSETRON 4 MG/2 ML VIAL IVP ONE (13:05)
[2017-06-24] MEDS ORDERED: GLYCOPYRROLATE 0.2 MG/ML 2 ML VIAL ONE (13:22)
[2017-06-24] MEDS ORDERED: NEOSTIGMINE 1 MG/ML 10 ML VIAL ONE (13:22)
[2017-06-24] MEDS ORDERED: fentaNYL (PF) 50 MCG/ML 2 ML AMP ONE (13:22)
[2017-06-24] MEDS ORDERED: PROPOFOL 10 MG/ML 20 ML VIAL IV ONE (13:22)
[2017-06-24] MEDS ORDERED: MIDAZOLAM 2 MG/2 ML VIAL ONE (13:22)
[2017-06-24] MEDS ORDERED: LIDOCAINE 1% INJ 10MG/ML (20 ML MDV) ONE (13:22)
[2017-06-24] MEDS ORDERED: ROCURONIUM BROMIDE 10 MG/ML 10 ML VIAL IV ONE (13:22)
[2017-06-24] MEDS ORDERED: SUCCINYLCHOLINE CHLORIDE 100 MG/5 ML SYR IV ONE (13:22)
[2017-06-24] MEDS ORDERED: LACTATED RINGERS 1,000 ML IV ONE (13:51)
[2017-06-24] MEDS ORDERED: BUPIVACAINE (PF) 0.25% 30 ML VIAL SQ ONE (14:30)
[2017-06-24] MEDS: HYDROmorphone 4 MG/ML 1 ML SYRINGE IVP ONE ×4 (14:55→15:19)
--- NOTE | 2017-06-24 15:22 | P.OP ---
Date of Procedure: 06/24/17 Procedure(s) Performed: PREOPERATIVE DIAGNOSIS: Acute calculus cholecystitis POSTOPERATIVE DIAGNOSIS: Same with micronodular cirrhosis PROCEDURE: Laparoscopic cholecystectomy SURGEON: Carlota EBL: Minimal see anesthesia record ANESTHESIA: Gen. COMPLICATIONS: None OPERATIVE PROCEDURE: The patient was brought and placed on the operating room table in the supine position. The patient was placed under general anesthesia at that time. The abdomen was prepped and draped in the usual sterile fashion. A small vertical infraumbilical incision was made. The fascia was grasped with the Karen forceps. The fascia was retracted anteriorly. The Veress needle was advanced into the peritoneal cavity. The saline drop test was normal. Insufflation took place up to 15 mmHg. A 5 mm optical trocar was advanced and the peritoneal cavity. 2 additional 5 mm trochars were placed in the right upper quadrant under direct visualization. A 10 mm trocar was advanced into the epigastric incision site. This was later switched to a 12 mm trocar. The patient had some ascites present within the abdomen. The gallbladder was significantly long and did have some gallbladder wall thickening. The liver had a micronodular appearance consistent with micronodular cirrhosis. The gallbladder was retracted superiorly and laterally. The peritoneum overlying the infundibulum was bluntly dissected. The patient's cystic duct was visualized. The junction between the cystic duct common and hepatic duct was identified. The cystic duct was then divided after placement of 3 12 mm clips on the patient's side and one on the specimen side. The cystic artery was identified and clipped as well. A small vessel was seen along the gallbladder fossa and clipped as well. The gallbladder was then removed from the liver bed using the LigaSure device. The gallbladder was then removed from the epigastric trocar site with an Endo Catch bag. The gallbladder fossa was irrigated with saline. There was no evidence of any bleeding or biliary drainage seen. The trochars were then removed. The fascia at the 12 millimeter site was closed using a Simeonon 0 Vicryl stitch. The skin at all 4 sites was closed using a 4-0 Monocryl stitch. At the end of this procedure the sponge and needle counts were correct. DISPOSITION: Stable to the recovery room
[2017-06-24] MEDS: HYDROcodone/APAP 5-325MG 1 EACH TAB PO PRN ×2 (17:12→23:48)
[2017-06-24] MEDS: HYDROmorphone 0.5 MG/0.5 ML SYRINGE IVP PRN (20:48)
[2017-06-24 22:40] VITALS: RESP 18
[2017-06-25] MEDS: HYDROmorphone 0.5 MG/0.5 ML SYRINGE IVP PRN ×3 (01:18→07:58)
[2017-06-25 07:37] VITALS: BP 127/66; PULSE 79; TEMP 98.8
[2017-06-25] MEDS: PANTOPRAZOLE 40 MG TABLET PO SCH (07:59)
[2017-06-25] MEDS: MAGNESIUM OXIDE 400 MG TAB PO SCH (07:59)
[2017-06-25] MEDS: SPIRONOLACTONE 25 MG TAB PO SCH (08:00)
[2017-06-25] MEDS: THIAMINE 100 MG TAB PO SCH (08:00)
[2017-06-25] MEDS: NICOTINE 21MG/24HR PATCH TRANSDERM SCH (08:00)
[2017-06-25 08:34] LABS: INR 1.7 (<1.2); Prothrombin Time 15.6 sec (9.0-12.0)
[2017-06-25 08:55] LABS: ALT 25 U/L (21-72); AST 63 U/L (17-59); Albumin 3.5 g/dL (3.5-5.0); Alkaline Phosphatase 147 U/L (38-126); Anion Gap 14 mmol/L; Blood Urea Nitrogen 4 mg/dL (9-20); Calcium 9.6 mg/dL (8.4-10.2); Carbon Dioxide 21 mmol/L (22-30); Chloride 108 mmol/L (98-107); Glucose 135 mg/dL (74-99); Magnesium 1.6 mg/dL (1.6-2.3); Potassium 3.8 mmol/L (3.5-5.1); Sodium 143 mmol/L (137-145); Total Bilirubin 3.3 mg/dL (0.2-1.3); Total Protein 7.9 g/dL (6.3-8.2)
[2017-06-25 09:31] LABS: Anisocytosis Slight; Basophils % (A) 0 %; Eosinophils % (A) 0 %; Lymphocytes # (A) 0.9 k/uL (1.0-4.8); Lymphocytes % (A) 7 %; MCH 33.8 pg (25.0-35.0); MCHC 32.1 g/dL (31.0-37.0); MCV 105.5 fL (80.0-100.0); Macrocytosis Moderate; Monocytes # (A) 0.7 k/uL (0-1.0); Monocytes % (A) 5 %; Neutrophils # (A) 12.1 k/uL (1.3-7.7); Neutrophils % (A) 88 %; Platelet Count 131 k/uL (150-450); RBC 2.84 m/uL (4.30-5.90); RDW 17.4 % (11.5-15.5); WBC 13.8 k/uL (3.8-10.6)
[2017-06-25 09:34] LABS: HGB 9.6 gm/dL (13.0-17.5)
[2017-06-25] MEDS: HYDROcodone/APAP 5-325MG 1 EACH TAB PO PRN (09:46)
[2017-06-25] MEDS: PHYTONADIONE ORAL 5 MG/5 ML ORAL.SYRG PO SCH (10:45)
--- NOTE | 2017-06-25 11:31 | P.PN ---
Subjective Progress Note Date: 06/25/17 42-year-old male seen and examined sitting up in bed appears in no acute distress. Postop laparoscopic cholecystectomy for acute calculus cholecystitis done on June 24. Patient states he has been up ambulating in the hallway has had a bowel movement this morning is tolerating a diet INR this morning 1.7 Objective - Vital Signs Vital signs: Vital Signs Temp 98.8 F 06/25/17 07:00 Pulse 79 06/25/17 07:00 Resp 18 06/25/17 07:00 BP 127/66 06/25/17 07:00 Pulse Ox 96 06/25/17 07:00 Intake & Output 06/24/17 06/25/17 06/25/17 18:59 06:59 18:59 Intake Total 885 Output Total 20 1150 Balance 865 -1150 Intake: IV 575 Blood Product 310 Rc Pheresis 2 As3 Unit 310 [id number] Output: Urine 1150 Estimated Blood Loss 20 Other: Voiding Method Toilet # Voids 1 - Exam Focused exam Abdomen soft surgical tenderness appropriate surgical dressing site dry active bowel tones passing gas tolerating diet urinating no difficulty states had a bowel movement this morning no nausea no vomiting - Labs CBC & Chem 7: 06/25/17 08:07 06/25/17 08:07 Labs: Abnormal Lab Results - Last 24 Hours (Table) 06/24/17 06/24/17 06/25/17 Range/Units 07:17 07:17 08:07 WBC 13.8 H (3.8-10.6) k/uL RBC 2.84 L (4.30-5.90) m/uL Hgb 9.6 L D (13.0-17.5) gm/dL Hct 30.0 L (39.0-53.0) % MCV 105.5 H (80.0-100.0) fL RDW 17.4 H (11.5-15.5) % Plt Count 131 L (150-450) k/uL Neutrophils # 12.1 H (1.3-7.7) k/uL Lymphocytes # 0.9 L (1.0-4.8) k/uL PT (9.0-12.0) sec INR (<1.2) Chloride (98-107) mmol/L Carbon Dioxide (22-30) mmol/L BUN (9-20) mg/dL Creatinine (0.66-1.25) mg/dL Glucose (74-99) mg/dL Magnesium 1.4 L (1.6-2.3) mg/dL Total Bilirubin (0.2-1.3) mg/dL AST (17-59) U/L Alkaline Phosphatase (38-126) U/L Crossmatch See Detail 06/25/17 06/25/17 Range/Units 08:07 08:07 WBC (3.8-10.6) k/uL RBC (4.30-5.90) m/uL Hgb (13.0-17.5) gm/dL Hct (39.0-53.0) % MCV (80.0-100.0) fL RDW (11.5-15.5) % Plt Count (150-450) k/uL Neutrophils # (1.3-7.7) k/uL Lymphocytes # (1.0-4.8) k/uL PT 15.6 H (9.0-12.0) sec INR 1.7 H (<1.2) Chloride 108 H (98-107) mmol/L Carbon Dioxide 21 L (22-30) mmol/L BUN 4 L (9-20) mg/dL Creatinine 0.60 L (0.66-1.25) mg/dL Glucose 135 H (74-99) mg/dL Magnesium (1.6-2.3) mg/dL Total Bilirubin 3.3 H (0.2-1.3) mg/dL AST 63 H (17-59) U/L Alkaline Phosphatase 147 H (38-126) U/L Crossmatch Microbiology - Last 24 Hours (Table) 06/21/17 21:51 Blood Culture - Preliminary Blood No Growth after 72 hours Assessment and Plan Assessment: Impression Chronic liver disease secondary to alcohol abuse Anemia macrocytic secondary to alcoholic cirrhosis of the liver Present on admission right upper quadrant abdominal pain possible acute on chronic cholecystitis Status post laparoscopic cholecystectomy for acute calculus cholecystitis Coagulopathy suspect due to underlying alcohol liver disease Plan From a surgical perspective patient is felt to be clinically stable and appropriate proceed with a discharge defer to the timing of the discharge to the attending Follow-up with Dr. Van outpatient setting Scheduled for an EGD colonoscopy outpatient July [address] KTuma The above impression and plan of care have been discussed and directed by signing physician. Jasmyne Umana nurse practitioner acting as scribe for signing physician.
--- NOTE | 2017-06-25 20:07 | DS ---
DISCHARGE SUMMARY DATE OF SERVICE: 06/25/17 FINAL DIAGNOSES: 1. Right upper quadrant abdominal pain. Possible acute on cholecystitis status post laparoscopic cholecystectomy. 2. Chronic secondary to ETOH abuse. 3. Possible mild acute pancreatitis. 4. Anemia macrocytic secondary to alcoholic cirrhosis of the liver. 5. Chronic persistent asthma. DISCHARGE DISPOSITION: The patient is being discharged in stable condition with guarded prognosis. Total time taken 35 minutes. HISTORY OF PRESENT ILLNESS: This 42-year-old gentleman with past medical history of multiple medical problems admitted with right upper quadrant abdominal pain. Patient has significant alcohol abuse. Patient also had features of cholecystitis. Dr. Van performed a laparoscopic cholecystectomy and the patient tolerated the procedure well. PHYSICAL EXAMINATION: On exam, vital signs stable. Cardiovascular: S1, S2. Abdomen soft, nontender. DISCHARGE ADVICE AND MEDICATIONS: 1. Discharge diet is cardiac. 2. Activity limited until followup. 3. Followup with Dr. Guevara in two to three days. 4. Follow up with Dr. Van as advised. 5. Attend AA and rehab. MEDICATION: 1. Yoder 5 mg q.6h p.r.n. 2. Magnesium oxide 400 mg p.o. b.i.d. 3. Habitrol 21 daily. 4. Vitamin K 10 mg p.o. daily. 5. Check a PT/INR as an outpatient. 6. Aldactone 25 mg p.o. b.i.d. 7. Vitamin B1 100 mg p.o. daily. 8. Follow up with Gastroenterology as advised. MMODL / IJN: [id number] / MTDD
== END 2017-06-25 11:58 | disposition home or self-care (01) | DRG 417 ==
LOC: EC 21:05 → 4MS4W 06-22 00:01
PROVIDERS: ADMIT Hospitalist; ATTEND Hospitalist
PROC: 30233N1 Transfusion of Nonautologous Red Blood Cells into Peripheral Vein, Percutaneous Approach (ICD-10-PCS; 2017-06-24)
PROC: 0FT44ZZ Resection of Gallbladder, Percutaneous Endoscopic Approach (ICD-10-PCS; principal; 2017-06-24 15:50)
DX: K80.12 Calculus of gallbladder with acute and chronic cholecystitis without obstruction (principal); K85.20 Alcohol induced acute pancreatitis without necrosis or infection; D68.9 Coagulation defect, unspecified; K70.11 Alcoholic hepatitis with ascites; D53.9 Nutritional anemia, unspecified; K70.31 Alcoholic cirrhosis of liver with ascites; J45.20 Mild intermittent asthma, uncomplicated; F43.10 Post-traumatic stress disorder, unspecified; F10.229 Alcohol dependence with intoxication, unspecified; E86.0 Dehydration; F17.210 Nicotine dependence, cigarettes, uncomplicated; Z86.14 Personal history of Methicillin resistant Staphylococcus aureus infection; Z87.442 Personal history of urinary calculi; Z87.01 Personal history of pneumonia (recurrent); Z79.899 Other long term (current) drug therapy; Z90.49 Acquired absence of other specified parts of digestive tract; Z82.49 Family history of ischemic heart disease and other diseases of the circulatory system; Y90.8 Blood alcohol level of 240 mg/100 ml or more
CPT/HCPCS: 36415; 74019; 76700; 80053; 80320; 81001; 82150; 83690; 83735; 85025; 85610; 85730; 86850; 86900; 86901; 86920; 87040; 88304; 96361; 96365; 96366; 96372; 96375; 96376; 99285

== ENCOUNTER 2017-07-05 04:10 | Emergency (ER) | payer OTHER ==
[2017-07-05 04:15] VITALS: RESP 20
[2017-07-05 04:34] LABS: Anisocytosis Slight; Basophils # (A) 0.1 k/uL (0-0.2); Basophils % (A) 1 %; Eosinophils # (A) 0.2 k/uL (0-0.7); Eosinophils % (A) 1 %; HGB 9.6 gm/dL (13.0-17.5); Lymphocytes % (A) 13 %; MCH 32.7 pg (25.0-35.0); MCHC 31.1 g/dL (31.0-37.0); MCV 105.2 fL (80.0-100.0); Macrocytosis Moderate; Mean Platelet Volume 8.2; Monocytes # (A) 0.8 k/uL (0-1.0); Monocytes % (A) 5 %; Neutrophils # (A) 12.3 k/uL (1.3-7.7); Neutrophils % (A) 79 %; Platelet Count 158 k/uL (150-450); RBC 2.94 m/uL (4.30-5.90); RDW 16.3 % (11.5-15.5); WBC 15.7 k/uL (3.8-10.6)
[2017-07-05 04:37] LABS: Appearance,Urine Clear (Clear); Bilirubin,Urine Negative (Negative); Blood,Urine Moderate (Negative); Color,Urine Yellow; Glucose,Urine (UA) Negative (Negative); Hyaline Casts,Urine 1 /lpf (0-2); Ketones,Urine Negative (Negative); Leukocyte Esterase,Urine Trace (Negative); Nitrite,Urine Negative (Negative); Protein,Urine 1+ (Negative); RBC,Urine 45 /hpf (0-5); Specific Gravity,Urine 1.012 (1.001-1.035); Squamous Epithelial Cell,Urine <1 /hpf (0-4); WBC,Urine 12 /hpf (0-5)
[2017-07-05 04:48] LABS: ALT 18 U/L (21-72); AST 58 U/L (17-59); Albumin 3.6 g/dL (3.5-5.0); Alkaline Phosphatase 115 U/L (38-126); Amylase 62 U/L (30-110); Anion Gap 17 mmol/L; Blood Urea Nitrogen 4 mg/dL (9-20); Calcium 9.6 mg/dL (8.4-10.2); Carbon Dioxide 19 mmol/L (22-30); Chloride 108 mmol/L (98-107); Glucose 99 mg/dL (74-99); Lipase 459 U/L (23-300); Potassium 3.3 mmol/L (3.5-5.1); Sodium 144 mmol/L (137-145); Total Bilirubin 3.2 mg/dL (0.2-1.3); Total Protein 8.1 g/dL (6.3-8.2)
--- NOTE | 2017-07-05 05:06 | ED ---
Abdominal Pain HPI - General Chief Complaint: Abdominal Pain Stated Complaint: Abd pain Time Seen by Provider: 07/05/17 04:23 Source: patient, EMS Mode of arrival: EMS Limitations: no limitations - History of Present Illness Initial Comments: This patient is a 42-year-old man who presents to be evaluated for abdominal pain. He did have recent laparoscopic cholecystectomy. MD Complaint: abdominal pain -: year(s) Location: LLQ Radiation: none Migration to: no migration Severity: moderate Quality: aching Consistency: constant Improves With: nothing Worsens With: nothing Associated Symptoms: denies other symptoms - Related Data Home Medications Medication Instructions Recorded Confirmed Magnesium Oxide [Magox 400] 400 mg PO BID 05/28/17 07/09/17 Potassium Chloride ER [K-Dur 20] 40 meq PO DAILY 07/09/17 07/09/17 Previous Rx's Medication Instructions Recorded Thiamine [Vitamin B-1] 100 mg PO DAILY #30 tablet 06/02/17 Allergies Allergy/AdvReac Type Severity Reaction Status Date / Time No Known Allergies Allergy Verified 07/09/17 09:31 Review of Systems ROS Statement: Those systems with pertinent positive or pertinent negative responses have been documented in the HPI. ROS Other: All systems not noted in ROS Statement are negative. Constitutional: Denies: fever, chills Respiratory: Denies: cough, dyspnea Cardiovascular: Denies: chest pain, palpitations Gastrointestinal: Reports: abdominal pain. Denies: nausea, vomiting, diarrhea, constipation Genitourinary: Denies: dysuria, hematuria Musculoskeletal: Denies: back pain Skin: Denies: rash Neurological: Denies: headache, weakness, numbness Past Medical History Past Medical History: Asthma, Liver Disease, Pneumonia Additional Past Medical History / Comment(s): ETOH abuse, liver cirrhosis, abdominal ascities, pancreatitis, gallstones, pneumonia, nephrolithiasis, chronic anemia. History of Any Multi-Drug Resistant Organisms: MRSA Date of last positivie culture/infection: 12/09/2013 MDRO Source:: Right First Finger Past Surgical History: Appendectomy, Cholecystectomy, Orthopedic Surgery Additional Past Surgical History / Comment(s): Paracentesis at [facility] about 6 months ago, right hand tendon repair, right knee arthroscopy, cystoscopy for kidney stone removal. Past Anesthesia/Blood Transfusion Reactions: No Reported Reaction Past Psychological History: PTSD Smoking Status: Current every day smoker - Past Family History Mother Family Medical History: Hypertension Father Additional Family Medical History / Comment(s): Prostate issues. Brain aneurism. General Exam Limitations: no limitations General appearance: alert, in no apparent distress Head exam: Present: atraumatic Eye exam: Present: normal appearance. Absent: scleral icterus, conjunctival injection ENT exam: Present: normal oropharynx, mucous membranes dry Respiratory exam: Present: normal lung sounds bilaterally. Absent: respiratory distress, wheezes, rales, rhonchi, stridor Cardiovascular Exam: Present: normal rhythm, tachycardia, normal heart sounds. Absent: systolic murmur, diastolic murmur, rubs, gallop GI/Abdominal exam: Present: soft, tenderness. Absent: distended, guarding, rebound, rigid, bruit, pulsatile mass Extremities exam: Present: normal inspection, normal capillary refill. Absent: pedal edema, calf tenderness Back exam: Present: normal inspection. Absent: CVA tenderness (R), CVA tenderness (L) Neurological exam: Present: alert Skin exam: Present: warm, dry, intact, normal color. Absent: rash Course Vital Signs 07/05/17 07/05/17 07/05/17 04:11 06:51 08:20 Temperature 99.1 F 98.8 F 98.0 F Pulse Rate 114 H 90 86 Respiratory 20 20 20 Rate Blood Pressure 131/61 120/58 124/82 O2 Sat by Pulse 100 96 98 Oximetry Medical Decision Making - Medical Decision Making Patient is a 42-year-old man with abdominal pain and recent laparoscopic cholecystectomy. The CT scan is reviewed and there is question of possible bile leak. I discussed the case with Dr. Lizarraga, who is covering for his surgeon jovanni. She requested that the patient have HIDA scan to confirm whether there was bile leak. The HIDA scan was ordered, however in reviewing this, the radiology department finds that the patient did have HIDA scan within the past 48 hours by [facility] area the patient did not recall this, but after reviewing the study results he was able to recall the study, and we find that it is negative. The results are discussed with surgery and he will follow-up in clinic, return parameters discussed. - Lab Data Result diagrams: 07/05/17 04:10 07/05/17 04:10 Lab Results 07/05/17 07/05/17 07/05/17 Range/Units 04:10 04:10 04:10 WBC 15.7 H (3.8-10.6) k/uL RBC 2.94 L (4.30-5.90) m/uL Hgb 9.6 L (13.0-17.5) gm/dL Hct 31.0 L (39.0-53.0) % MCV 105.2 H (80.0-100.0) fL MCH 32.7 (25.0-35.0) pg MCHC 31.1 (31.0-37.0) g/dL RDW 16.3 H (11.5-15.5) % Plt Count 158 (150-450) k/uL Neutrophils % 79 % Lymphocytes % 13 % Monocytes % 5 % Eosinophils % 1 % Basophils % 1 % Neutrophils # 12.3 H (1.3-7.7) k/uL Lymphocytes # 2.0 (1.0-4.8) k/uL Monocytes # 0.8 (0-1.0) k/uL Eosinophils # 0.2 (0-0.7) k/uL Basophils # 0.1 (0-0.2) k/uL Anisocytosis Slight Macrocytosis Moderate Sodium 144 (137-145) mmol/L Potassium 3.3 L (3.5-5.1) mmol/L Chloride 108 H (98-107) mmol/L Carbon Dioxide 19 L (22-30) mmol/L Anion Gap 17 mmol/L BUN 4 L (9-20) mg/dL Creatinine 0.70 (0.66-1.25) mg/dL Est GFR (MDRD) Af Amer >60 (>60 ml/min/1.73 sqM) Est GFR (MDRD) Non-Af >60 (>60 ml/min/1.73 sqM) Glucose 99 (74-99) mg/dL Calcium 9.6 (8.4-10.2) mg/dL Total Bilirubin 3.2 H (0.2-1.3) mg/dL AST 58 (17-59) U/L ALT 18 L (21-72) U/L Alkaline Phosphatase 115 (38-126) U/L Total Protein 8.1 (6.3-8.2) g/dL Albumin 3.6 (3.5-5.0) g/dL Amylase 62 (30-110) U/L Lipase 459 H (23-300) U/L Urine Color Yellow Urine Appearance Clear (Clear) Urine pH 7.0 (5.0-8.0) Ur Specific [place] 1.012 (1.001-1.035) Urine Protein 1+ H (Negative) Urine Glucose (UA) Negative (Negative) Urine Ketones Negative (Negative) Urine Blood Moderate H (Negative) Urine Nitrite Negative (Negative) Urine Bilirubin Negative (Negative) Urine Urobilinogen 6.0 (<2.0) mg/dL Ur Leukocyte Esterase Trace H (Negative) Urine RBC 45 H (0-5) /hpf Urine WBC 12 H (0-5) /hpf Ur Squamous Epith Cells <1 (0-4) /hpf Hyaline Casts 1 (0-2) /lpf Group A Strep Rapid (Negative) 07/05/17 Range/Units 06:16 WBC (3.8-10.6) k/uL RBC (4.30-5.90) m/uL Hgb (13.0-17.5) gm/dL Hct (39.0-53.0) % MCV (80.0-100.0) fL MCH (25.0-35.0) pg MCHC (31.0-37.0) g/dL RDW (11.5-15.5) % Plt Count (150-450) k/uL Neutrophils % % Lymphocytes % % Monocytes % % Eosinophils % % Basophils % % Neutrophils # (1.3-7.7) k/uL Lymphocytes # (1.0-4.8) k/uL Monocytes # (0-1.0) k/uL Eosinophils # (0-0.7) k/uL Basophils # (0-0.2) k/uL Anisocytosis Macrocytosis Sodium (137-145) mmol/L Potassium (3.5-5.1) mmol/L Chloride (98-107) mmol/L Carbon Dioxide (22-30) mmol/L Anion Gap mmol/L BUN (9-20) mg/dL Creatinine (0.66-1.25) mg/dL Est GFR (MDRD) Af Amer (>60 ml/min/1.73 sqM) Est GFR (MDRD) Non-Af (>60 ml/min/1.73 sqM) Glucose (74-99) mg/dL Calcium (8.4-10.2) mg/dL Total Bilirubin (0.2-1.3) mg/dL AST (17-59) U/L ALT (21-72) U/L Alkaline Phosphatase (38-126) U/L Total Protein (6.3-8.2) g/dL Albumin (3.5-5.0) g/dL Amylase (30-110) U/L Lipase (23-300) U/L Urine Color Urine Appearance (Clear) Urine pH (5.0-8.0) Ur Specific [place] (1.001-1.035) Urine Protein (Negative) Urine Glucose (UA) (Negative) Urine Ketones (Negative) Urine Blood (Negative) Urine Nitrite (Negative) Urine Bilirubin (Negative) Urine Urobilinogen (<2.0) mg/dL Ur Leukocyte Esterase (Negative) Urine RBC (0-5) /hpf Urine WBC (0-5) /hpf Ur Squamous Epith Cells (0-4) /hpf Hyaline Casts (0-2) /lpf Group A Strep Rapid Negative (Negative) Disposition Clinical Impression: Abdominal pain Disposition: HOME SELF-CARE Condition: Fair Instructions: Abdominal Pain (ED) Referrals: Timmy Guevara MD [Primary Care Provider] - 1-2 days Alexx Van MD [Medical Doctor] - 1-2 days
[2017-07-05] MEDS ORDERED: MORPHINE SULFATE 4 MG/ML SYRINGE IV STA ×2 (06:06→08:01)
[2017-07-05] MEDS ORDERED: ONDANSETRON 4 MG/2 ML VIAL IVP STA (06:06)
--- NOTE | 2017-07-05 06:39 | CT ---
EXAM: CT Abdomen and Pelvis Without Intravenous Contrast CLINICAL HISTORY: ITS.REASON CT Reason: Pain TECHNIQUE: Axial computed tomography images of the abdomen and pelvis without intravenous contrast. CTDI is mGy and DLP is 416.1 mGy-cm. This CT exam was performed using one or more of the following dose reduction techniques: automated exposure control, adjustment of the mA and/or kV according to patient size, and/or use of iterative reconstruction technique. COMPARISON: CT dated 05/30/2017. FINDINGS: Lower thorax: No acute findings. ABDOMEN: Liver: New mild perihepatic fluid extending along the right paracolic gutter into the pelvis. The liver itself is grossly unremarkable by noncontrast technique. Gallbladder and bile ducts: Interval cholecystectomy. Minimal fluid and fat stranding in the region of the gallbladder fossa. This is nonspecific. No ductal dilation. Pancreas: Unremarkable. No ductal dilation. Spleen: Unremarkable. No splenomegaly. Adrenals: Unremarkable. No mass. Kidneys and ureters: Reidentified nonobstructing left renal Measuring up to 3 mm. Stomach and bowel: Wall thickening and fat stranding adjacent to the descending colon. No obstruction. Appendix: The appendix is not identified with certainty. No pericecal inflammatory changes. PELVIS: Bladder: Unremarkable. No stones. Reproductive: Unremarkable as visualized. ABDOMEN and PELVIS: Intraperitoneal space: Unremarkable. No free air. No significant fluid collection. Bones/joints: No acute fracture. Soft tissues: Unremarkable. Vasculature: Unremarkable. No abdominal aortic aneurysm. Lymph nodes: Unremarkable. No enlarged lymph nodes. Other findings: Mild diffuse haziness of the mesentery. IMPRESSION: Interval cholecystectomy. There is minimal fluid and fat stranding in the gallbladder fossa as well as haziness throughout the mesentery and new mild right perihepatic fluid extending along the right paracolic gutter. There is also wall thickening and fat stranding involving the ascending colon. These findings are nonspecific and may represent post surgical change, bile leak, or possibly nonspecific colitis.
[2017-07-05 08:30] VITALS: BP 124/82; PULSE 86; TEMP 98
--- NOTE | 2017-07-07 06:24 | CDI ---
Documentation Clarification OP Dear Sabino DUARTE MD Please do addendum to ED report for Physical exam and MDM. Thank you, Roselyn Hall Boat Master If you have any question, Please contact platform material handler manager at [phone] [facility]
== END 2017-07-05 08:31 | disposition home or self-care (01) ==
LOC: EC 04:10
DX: R10.32 Left lower quadrant pain (principal); F17.200 Nicotine dependence, unspecified, uncomplicated; Z86.14 Personal history of Methicillin resistant Staphylococcus aureus infection; Z79.899 Other long term (current) drug therapy; Z90.49 Acquired absence of other specified parts of digestive tract
CPT/HCPCS: 36415; 80053; 82150; 83690; 85025; 81001; 87081; 87430; 74176; 99285; 96374; 96375; 96376; J2270; J2405

== ENCOUNTER 2017-07-09 08:41 | Day surgery (SDC) | payer OTHER ==
[2017-07-08 08:53] VITALS: BMI 25.3
[~2017-07-09 08:41] MED LIST: LACTATED RINGERS 1,000 ML IV SCH
[2017-07-09 09:28] VITALS: TEMP 97.9
[2017-07-09] MEDS ORDERED: PROPOFOL 10 MG/ML 20 ML VIAL IV ONE (10:18)
[2017-07-09] MEDS ORDERED: LIDOCAINE 1% INJ 10MG/ML (20 ML MDV) ONE (10:18)
--- NOTE | 2017-07-09 10:45 | P.PCN ---
Date of Procedure: 07/09/17 Procedure(s) Performed: Brief history: Patient is a pleasant 42-year-old white male, scheduled for an elective upper endoscopy as well as colonoscopy as a part of evaluation of anemia and Hemoccult -positive stool. He was recently noted to have a hemoglobin of 9.6 g/dL. Has history of heavy alcoholism of several years duration. Procedure performed: Esophagogastroduodenoscopy with biopsy Colonoscopy Preoperative diagnosis: Anemia and Hemoccult positive stool Anesthesia: [facility] Procedure: After informed consent was obtained from the patient was brought into the endoscopy unit and IV sedation was administered by anesthesia under continuous monitoring. Initially upper endoscopy was done. The Olympus GF 160 video endoscope was inserted inserted into the mouth and esophagus intubated without any difficulty and was gradually advanced into the stomach and duodenum and carefully examined. The bulb and second part of the duodenum appeared normal. The scope was then withdrawn into the stomach adequately insufflated with air and upon careful examination the antrum and body, cardia and fundus showed changes consistent with mild to moderate portal hypertensive gastropathy. Biopsies were done from the antrum of the stomach.. The scope was then withdrawn into the esophagus. The GE junction was located at 40 cm to the incisors. It appeared regular with no erythema erosions or ulcerations. There were small distal esophageal non bleeding varices identified. Rest of the esophagus appeared normal. Patient tolerated the procedure well. At this time the patient continued to remain sedation. Initial digital rectal examination was normal. Olympus CF 160 video colonoscope was then inserted into the rectum and gradually advanced to the cecum without any difficulty. Careful examination was performed as the scope was gradually being withdrawn. The prep was excellent. The cecum, ascending colon, transverse colon, descending colon, sigmoid colon and rectum appeared normal. Retroflexion was performed in the rectum and grade 2 internal hemorrhoids were noted. Patient tolerated the procedure well. Impression: 1. Upper endoscopy revealed portal hypertensive gastropathy and small esophageal varices. 2. Colonoscopy reveal grade 2 internal hemorrhoids but no evidence of colitis or colorectal neoplasia Recommendations: Findings of this examination were discussed with the patient as well as his family. He was advised to follow with the biopsy results. He can have a repeat colonoscopy in 10 years.
[2017-07-09 10:54] VITALS: RESP 16
[2017-07-09 11:07] VITALS: BP 141/73; PULSE 67
== END 2017-07-09 11:48 | disposition home or self-care (01) ==
LOC: ORWHC2ENDO 08:41
PROVIDERS: ATTEND Internal Medicine Gastroenterology
DX: K64.1 Second degree hemorrhoids (principal); J45.909 Unspecified asthma, uncomplicated; K70.30 Alcoholic cirrhosis of liver without ascites; I85.10 Secondary esophageal varices without bleeding; F10.10 Alcohol abuse, uncomplicated; K76.6 Portal hypertension; F17.210 Nicotine dependence, cigarettes, uncomplicated; Z87.442 Personal history of urinary calculi
CPT/HCPCS: 88305; 45378; 43239; J2001; J2704

== ENCOUNTER 2017-07-24 21:34 | Inpatient (IN) | payer OTHER ==
[2017-07-24] MEDS ORDERED: SODIUM CHLORIDE 0.9% 1,000 ML IV STA (22:39)
--- NOTE | 2017-07-24 22:56 | XR ---
EXAMINATION TYPE: XR KUB DATE OF EXAM: 07/24/2017 COMPARISON: 06/21/2017 HISTORY: Abdominal pain TECHNIQUE: 2 views FINDINGS: Lung bases are clear. There is no sign of intestinal obstruction or pneumoperitoneum. Fecal pattern is normal. There are clips apparently from cholecystectomy. There are no pathologic calcific ations over the kidneys. There is no evidence of a mass. IMPRESSION: Nonacute abdomen. No adverse change compared to old exam.
[2017-07-24] MEDS ORDERED: MORPHINE SULFATE 4 MG/ML SYRINGE IVP STA (23:00)
[2017-07-24 23:03] LABS: Anisocytosis Slight; Basophils # (A) 0.2 k/uL (0-0.2); Basophils % (A) 1 %; Eosinophils # (A) 0.4 k/uL (0-0.7); Eosinophils % (A) 3 %; HCT 29.5 % (39.0-53.0); HGB 9.6 gm/dL (13.0-17.5); Lymphocytes # (A) 2.6 k/uL (1.0-4.8); Lymphocytes % (A) 21 %; MCH 33.6 pg (25.0-35.0); MCHC 32.7 g/dL (31.0-37.0); MCV 102.6 fL (80.0-100.0); Macrocytosis Moderate; Mean Platelet Volume 9.2; Monocytes % (A) 8 %; Neutrophils # (A) 8.3 k/uL (1.3-7.7); Neutrophils % (A) 65 %; Platelet Count 105 k/uL (150-450); RBC 2.87 m/uL (4.30-5.90); RDW 16.8 % (11.5-15.5); WBC 12.8 k/uL (3.8-10.6)
[2017-07-24 23:04] LABS: Appearance,Urine Clear (Clear); Bilirubin,Urine Negative (Negative); Blood,Urine Small (Negative); Color,Urine Light Yellow; Glucose,Urine (UA) Negative (Negative); Ketones,Urine Negative (Negative); Leukocyte Esterase,Urine Negative (Negative); Nitrite,Urine Negative (Negative); PH, Urine 6.5 (5.0-8.0); Protein,Urine Negative (Negative); Specific Gravity,Urine 1.002 (1.001-1.035)
[2017-07-24 23:06] LABS: ALT 33 U/L (21-72); AST 152 U/L (17-59); Albumin 4.1 g/dL (3.5-5.0); Alkaline Phosphatase 228 U/L (38-126); Amylase 75 U/L (30-110); Anion Gap 16 mmol/L; Blood Urea Nitrogen 6 mg/dL (9-20); Calcium 9.3 mg/dL (8.4-10.2); Carbon Dioxide 21 mmol/L (22-30); Chloride 112 mmol/L (98-107); Glucose 106 mg/dL (74-99); Lipase 1108 U/L (23-300); Potassium 3.5 mmol/L (3.5-5.1); Sodium 149 mmol/L (137-145); Total Bilirubin 3.7 mg/dL (0.2-1.3); Total Protein 9.2 g/dL (6.3-8.2)
[2017-07-24 23:25] LABS: Alcohol 368 mg/dL
[2017-07-24] MEDS ORDERED: SODIUM CHLORIDE 0.9% 1,000 ML IV ONE (23:45)
--- NOTE | 2017-07-24 23:56 | ED ---
General Adult HPI - General Source: patient, EMS Mode of arrival: EMS Limitations: no limitations <Allison Wise - Last Filed: 07/24/17 23:46> <Cale Mi - Last Filed: 07/25/17 00:43> - General Chief complaint: Alcohol Stated complaint: ETOH Time Seen by Provider: 07/24/17 22:35 - History of Present Illness Initial comments: 42-year-old male patient presents to emergency department today complaining of severe midepigastric and right upper quadrant abdominal pain. Patient states that he does have a history of chronic pancreatitis and cirrhosis of the liver related to alcohol abuse. Patient states that he did have numerous alcoholic beverages today. States that the pain started approximately one to 2 hours ago. States he is nauseated but has not vomited. States throughout the day today has been able to eat and drink without difficulty. States that his abdomen feels swollen. Patient denies any recent rash, fever, chills, shortness breath, chest pain, diarrhea, constipation, back pain, numbness, tingling, dizziness, weakness, hematuria, dysuria, urinary urgency, urinary frequency, headache, visual changes, or any other complaints. (Allison Wise) - Related Data Home Medications Medication Instructions Recorded Confirmed Magnesium Oxide [Magox 400] 400 mg PO BID 05/28/17 07/09/17 Potassium Chloride ER [K-Dur 20] 40 meq PO DAILY 07/09/17 07/09/17 Previous Rx's Medication Instructions Recorded Thiamine [Vitamin B-1] 100 mg PO DAILY #30 tablet 06/02/17 Allergies Allergy/AdvReac Type Severity Reaction Status Date / Time No Known Allergies Allergy Verified 07/09/17 09:31 Review of Systems ROS Other: All systems not noted in ROS Statement are negative. <Allison Wise - Last Filed: 07/24/17 23:46> ROS Other: All systems not noted in ROS Statement are negative. <Cale Mi - Last Filed: 07/25/17 00:43> ROS Statement: Those systems with pertinent positive or pertinent negative responses have been documented in the HPI. Past Medical History Past Medical History: Asthma, Liver Disease, Pneumonia Additional Past Medical History / Comment(s): ETOH abuse, liver cirrhosis, abdominal ascities, pancreatitis, gallstones, pneumonia, nephrolithiasis, chronic anemia. History of Any Multi-Drug Resistant Organisms: MRSA Date of last positivie culture/infection: 12/09/2013 MDRO Source:: Right First Finger Past Surgical History: Appendectomy, Cholecystectomy, Orthopedic Surgery Additional Past Surgical History / Comment(s): Paracentesis at [place] about 6 months ago, right hand tendon repair, right knee arthroscopy, cystoscopy for kidney stone removal. Past Anesthesia/Blood Transfusion Reactions: No Reported Reaction Past Psychological History: PTSD Smoking Status: Current every day smoker Past Alcohol Use History: Daily Past Drug Use History: None Reported - Past Family History Mother Family Medical History: Hypertension Father Additional Family Medical History / Comment(s): Prostate issues. Brain aneurism. <Allison Wise - Last Filed: 07/24/17 23:46> General Exam Limitations: no limitations Head exam: Present: atraumatic, normocephalic, normal inspection Eye exam: Present: normal appearance, PERRL, EOMI. Absent: scleral icterus, conjunctival injection, periorbital swelling ENT exam: Present: normal exam, normal oropharynx, mucous membranes moist Respiratory exam: Present: normal lung sounds bilaterally. Absent: respiratory distress, wheezes, rales, rhonchi, stridor Cardiovascular Exam: Present: regular rate, normal rhythm, normal heart sounds. Absent: systolic murmur, diastolic murmur, rubs, gallop, clicks GI/Abdominal exam: Present: soft, tenderness (Mid epigastric and right upper quadrant tenderness, severe), normal bowel sounds. Absent: distended, guarding , rebound, rigid Neurological exam: Present: alert, oriented X3, CN II-XII intact Psychiatric exam: Present: normal affect, normal mood Skin exam: Present: warm, dry, intact, normal color. Absent: rash <Allison Wise - Last Filed: 07/24/17 23:46> Vital Signs 07/24/17 21:46 Temperature 97.1 F L Pulse Rate 94 Respiratory 18 Rate Blood Pressure 155/87 O2 Sat by Pulse 99 Oximetry Medical Decision Making - Lab Data Result diagrams: 07/24/17 21:55 07/24/17 21:55 <Allison Wise - Last Filed: 07/24/17 23:46> - Lab Data Result diagrams: 07/24/17 21:55 07/24/17 21:55 <Cale Mi - Last Filed: 07/25/17 00:43> - Medical Decision Making 42-year-old male patient presented to the emergency department today for complaints of upper abdominal pain. Physical examination did reveal mid epigastric and right upper quadrant abdominal tenderness. Labs reviewed and did reveal white blood cell count 12.8, hemoglobin of 9.6, sodium 149, bilirubin 3.7, AST 152, alk phos 228, protein 9.2, lipase 1108, urine did show a small amount of blood. Blood alcohol level is 368. Patient will be admitted to the hospital for acute on chronic pancreatitis. IV fluids and pain management will be provided. (Allison Wise) - Lab Data Lab Results 07/24/17 07/24/17 07/24/17 Range/Units 21:55 21:55 22:54 WBC 12.8 H (3.8-10.6) k/uL RBC 2.87 L (4.30-5.90) m/uL Hgb 9.6 L (13.0-17.5) gm/dL Hct 29.5 L (39.0-53.0) % MCV 102.6 H (80.0-100.0) fL MCH 33.6 (25.0-35.0) pg MCHC 32.7 (31.0-37.0) g/dL RDW 16.8 H (11.5-15.5) % Plt Count 105 L (150-450) k/uL Neutrophils % 65 % Lymphocytes % 21 % Monocytes % 8 % Eosinophils % 3 % Basophils % 1 % Neutrophils # 8.3 H (1.3-7.7) k/uL Lymphocytes # 2.6 (1.0-4.8) k/uL Monocytes # 1.0 (0-1.0) k/uL Eosinophils # 0.4 (0-0.7) k/uL Basophils # 0.2 (0-0.2) k/uL Anisocytosis Slight Macrocytosis Moderate Sodium 149 H (137-145) mmol/L Potassium 3.5 (3.5-5.1) mmol/L Chloride 112 H (98-107) mmol/L Carbon Dioxide 21 L (22-30) mmol/L Anion Gap 16 mmol/L BUN 6 L (9-20) mg/dL Creatinine 0.60 L (0.66-1.25) mg/dL Est GFR (CKD-EPI)AfAm >90 (>60 ml/min/1.73 sqM) Est GFR (CKD-EPI)NonAf >90 (>60 ml/min/1.73 sqM) Glucose 106 H (74-99) mg/dL Calcium 9.3 (8.4-10.2) mg/dL Total Bilirubin 3.7 H (0.2-1.3) mg/dL AST 152 H (17-59) U/L ALT 33 (21-72) U/L Alkaline Phosphatase 228 H (38-126) U/L Total Protein 9.2 H (6.3-8.2) g/dL Albumin 4.1 (3.5-5.0) g/dL Amylase 75 (30-110) U/L Lipase 1108 H (23-300) U/L Urine Color Light Yellow Urine Appearance Clear (Clear) Urine pH 6.5 (5.0-8.0) Ur Specific [place] 1.002 (1.001-1.035) Urine Protein Negative (Negative) Urine Glucose (UA) Negative (Negative) Urine Ketones Negative (Negative) Urine Blood Small H (Negative) Urine Nitrite Negative (Negative) Urine Bilirubin Negative (Negative) Urine Urobilinogen 2.0 (<2.0) mg/dL Ur Leukocyte Esterase Negative (Negative) Serum Alcohol 368 mg/dL Disposition Decision to Admit Reason: Admit from EC Decision Date: 07/24/17 Decision Time: 23:57 <Allison Wise - Last Filed: 07/24/17 23:46> <Cale Mi - Last Filed: 07/25/17 00:43> Clinical Impression: Acute on chronic pancreatitis, Alcohol intoxication Disposition: ADMITTED IP TO THIS [facility] Condition: Serious Referrals: Timmy Guevara MD [Primary Care Provider] - 1-2 days
[2017-07-24] MEDS ORDERED: NALOXONE 0.4 MG/ML 1 ML VIAL IV PRN (23:58)
[2017-07-24] MEDS ORDERED: ONDANSETRON 4 MG/2 ML VIAL IVP PRN (23:58)
[2017-07-25] MEDS ORDERED: AMOXIC-POT CLAV 875MG STARTER 2 EACH TABLET PO STA (00:41)
[2017-07-25] MEDS ORDERED: DIPH,PERTUS(ACELL)TETVAC-LF 0.5 ML VIAL IM ONE (00:41)
[2017-07-25] MEDS: MORPHINE SULFATE 4 MG/ML SYRINGE IV PRN ×5 (04:19→20:36)
[2017-07-25] MEDS: 1: MVI, ADULT NO.4 WITH VIT K 10 ML, THIAMINE 100 MG, FOLIC ACID 1 MG in SODIUM CHLORIDE IV SCH ×12 (06:38→18:16)
[2017-07-25] MEDS: NICOTINE 14MG/24HR PATCH TRANSDERM SCH (11:30)
[2017-07-25] MEDS ORDERED: LORazepam 2 MG/ML INJ IV PRN (14:15)
[2017-07-25] MEDS: SODIUM CHLORIDE 0.45% 1,000 ML IV SCH (15:22)
[2017-07-25] MEDS: THIAMINE 100 MG/ML 2 ML VIAL IVP SCH (15:22)
[2017-07-25] MEDS: LORazepam 2 MG/ML INJ IV PRN (21:43)
--- NOTE | 2017-07-26 00:42 | P.HPIM ---
History of Present Illness H&P Date: 07/25/17 Chief Complaint: Abdominal pain Patient is a 42-year-old male with a known history of alcohol abuse, liver cirrhosis, ascites and chronic pancreatitis came to ER with complaining of severe midepigastric and right upper quadrant abdominal pain. Patient states that he did have numerous alcoholic beverages today. States that the pain started approximately one to 2 hours ago. States he is nauseated but has not vomited. States throughout the day today has been able to eat and drink without difficulty. States that his abdomen feels swollen. Patient denies any recent rash, fever, chills, shortness breath, chest pain, diarrhea, constipation , back pain, numbness, tingling, dizziness, weakness, hematuria, dysuria, urinary urgency, urinary frequency, headache, visual changes, or any other complaints. KUB x-ray showed nonacute abdomen Lipase 1108 Serum alcohol 368 Review of Systems Constitutional: Patient denies any fever or chills . No generalized weakness or weight loss. Abdomen: Epigastric abdominal pain with nausea and no episodes of vomiting. No diarrhea. Cardiovascular: Patient denies any chest pain or short of breath no palpitations. Respiratory: patient denied any cough is from production. No shortness of breath Neurologic: Patient denied any numbness or tingling headache. Musculoskeletal: Patient denies any complaints of joint swelling or deformity. Skin: Negative Psychiatric: Negative Endocrine: No heat or cold intolerance. No recent weight gain. Genitourinary: No dysuria or hematuria. All other 14 point ROS negative except the above Past Medical History Past Medical History: Asthma, Liver Disease, Pneumonia Additional Past Medical History / Comment(s): ETOH abuse, liver cirrhosis, abdominal ascities, pancreatitis, gallstones, pneumonia, nephrolithiasis, chronic anemia. History of Any Multi-Drug Resistant Organisms: MRSA Date of last positivie culture/infection: 12/09/2013 MDRO Source:: Right First Finger Past Surgical History: Appendectomy, Cholecystectomy, Orthopedic Surgery Additional Past Surgical History / Comment(s): Paracentesis at [place] about 6 months ago, right hand tendon repair, right knee arthroscopy, cystoscopy for kidney stone removal. Past Anesthesia/Blood Transfusion Reactions: No Reported Reaction Past Psychological History: PTSD Additional Psychological History / Comment(s): Pt lives in his apartment. His girlfriend and her son are usually there with him. He does not drive, he gets to app by his girlfriend, family or bus. Smoking Status: Current every day smoker Past Alcohol Use History: Daily Additional Past Alcohol Use History / Comment(s): Pt states he started smoking in 1983 and is a ppd smoker. He drinks beer or liquor and states he hadn't drank for 2 weeks and then yesterday drank some "twisted" tea which he found out later contained alcohol. He used to drink either a 12 pack of beer or between a pint to a fifth of liquor a day. Past Drug Use History: None Reported Additional Drug Use History / Comment(s): Pt states he smokes marijuana on occasion. - Past Family History Mother Family Medical History: Hypertension Father Additional Family Medical History / Comment(s): Prostate issues. Brain aneurism. Medications and Allergies Home Medications Medication Instructions Recorded Confirmed Type Thiamine [Vitamin B-1] 100 mg PO DAILY #30 tablet 06/02/17 07/25/17 Rx Multivitamin [Multivitamins Adult 2 tab PO DAILY 07/25/17 07/25/17 History Gummies] Potassium 99 mg PO DAILY 07/25/17 07/25/17 History Allergies Allergy/AdvReac Type Severity Reaction Status Date / Time No Known Allergies Allergy Verified 07/25/17 08:51 Physical Exam Vitals: Vital Signs Temp Pulse Pulse Resp BP BP BP 07/25/17 08:00 78 18 07/25/17 07:00 97.6 F 78 18 112/57 07/25/17 03:26 97.8 F 85 20 135/79 07/25/17 01:22 97.4 F L 88 17 115/69 07/24/17 21:46 97.1 F L 94 18 155/87 Pulse Ox 07/25/17 08:00 07/25/17 07:00 91 L 07/25/17 03:26 95 07/25/17 01:22 99 07/24/17 21:46 99 Intake and Output 07/24/17 07/25/17 07/25/17 21:59 06:59 14:59 Intake Total Output Total 700 Balance -700 Intake: Oral Output: Urine 700 Other: Voiding Method Toilet Urinal # Voids 1 Weight 69.445 kg Patient Weight 07/26/17 06:59 Weight 69.445 kg PHYSICAL EXAMINATION: Patient is lying in the bed comfortably, no acute distress, awake alert and oriented.. HEENT: Normocephalic. Neck is supple. Pupils reactive. Nostrils clear. Oral cavity is moist. Ears reveal no drainage. Neck reveals no JVD, carotid bruits, or thyromegaly. CHEST EXAMINATION: Trachea is central. Symmetrical expansion. Lung silva clear to auscultation and percussion. CARDIAC: Normal S1, S2 with no gallops. No murmurs ABDOMEN: Soft. Mild distention. Epigastric tenderness. Bowel sounds normal. No organomegaly. No abdominal bruits. Extremities: reveal no edema. No clubbing or cyanosis Neurologically awake, alert, oriented x3 with well-coordinated movements. No focal deficits noted Skin: No rash or skin lesions. Psychiatric: Cooperative. Nonsuicidal Musculoskeletal: No joint swelling or deformity. Normal range of motion. Results CBC & Chem 7: 07/24/17 21:55 07/24/17 21:55 Labs: Abnormal Lab Results - Last 24 Hours (Table) 07/24/17 07/24/17 07/24/17 Range/Units 21:55 21:55 22:54 WBC 12.8 H (3.8-10.6) k/uL RBC 2.87 L (4.30-5.90) m/uL Hgb 9.6 L (13.0-17.5) gm/dL Hct 29.5 L (39.0-53.0) % MCV 102.6 H (80.0-100.0) fL RDW 16.8 H (11.5-15.5) % Plt Count 105 L (150-450) k/uL Neutrophils # 8.3 H (1.3-7.7) k/uL Sodium 149 H (137-145) mmol/L Chloride 112 H (98-107) mmol/L Carbon Dioxide 21 L (22-30) mmol/L BUN 6 L (9-20) mg/dL Creatinine 0.60 L (0.66-1.25) mg/dL Glucose 106 H (74-99) mg/dL Total Bilirubin 3.7 H (0.2-1.3) mg/dL AST 152 H (17-59) U/L Alkaline Phosphatase 228 H (38-126) U/L Total Protein 9.2 H (6.3-8.2) g/dL Lipase 1108 H (23-300) U/L Urine Blood Small H (Negative) Thrombosis Risk Factor Assmnt - DVT/VTE Prophylaxis DVT/VTE Prophylaxis: Pharmacologic Prophylaxis ordered - Choose All That Apply Any of the Below Risk Factors Present?: Yes Each Factor Represents 1 point: Age 41-60 years Other Risk Factors: No Other congenital or acquired thrombophilia - If yes, enter type in comment: No Thrombosis Risk Factor Assessment Total Risk Factor Score: 1 Thrombosis Risk Factor Assessment Level: Low Risk Assessment and Plan Assessment: Acute pancreatitis with elevated lipase level. Likely alcohol related Acute alcohol intoxication on admission Elevated liver enzymes possible alcoholic It is Hyponatremia and hyperchloremia Severe alcohol abuse Liver cirrhosis and ascites with paracentesis 6 months ago at [facility] History of gallstones Nephrolithiasis History of MRSA Nicotine addiction Macrocytic anemia and chronic thrombocytopenia History of PTSD Plan: Patient will be continued on IV fluids, changed to half-normal saline. Continue with morphine for pain management and nothing by mouth area and monitor liver enzymes and follow closely. Smoking cessation and alcohol abuse has been counseled extensively. Continue with home medications. Further recommendations based on the clinical course. Time with Patient: Greater than 30
[2017-07-26] MEDS: LORazepam 2 MG/ML INJ IV PRN ×2 (00:49→09:56)
[2017-07-26] MEDS: MORPHINE SULFATE 4 MG/ML SYRINGE IV PRN ×5 (00:50→21:55)
[2017-07-26] MEDS: 1: MVI, ADULT NO.4 WITH VIT K 10 ML, THIAMINE 100 MG, FOLIC ACID 1 MG in SODIUM CHLORIDE IV SCH ×12 (00:54→11:24)
[2017-07-26] MEDS: SODIUM CHLORIDE 0.45% 1,000 ML IV SCH ×2 (00:55→11:25)
[2017-07-26 09:02] LABS: ALT 29 U/L (21-72); AST 108 U/L (17-59); Albumin 2.9 g/dL (3.5-5.0); Alkaline Phosphatase 156 U/L (38-126); Anion Gap 9 mmol/L; Blood Urea Nitrogen 4 mg/dL (9-20); Calcium 8.3 mg/dL (8.4-10.2); Carbon Dioxide 23 mmol/L (22-30); Chloride 106 mmol/L (98-107); Glucose 98 mg/dL (74-99); Phosphorus 3.3 mg/dL (2.5-4.5); Sodium 138 mmol/L (137-145); Total Bilirubin 5.1 mg/dL (0.2-1.3); Total Protein 7.1 g/dL (6.3-8.2)
[2017-07-26 09:03] LABS: Anisocytosis Slight; Basophils % (A) 1 %; Eosinophils # (A) 0.3 k/uL (0-0.7); Eosinophils % (A) 5 %; HCT 25.5 % (39.0-53.0); HGB 8.7 gm/dL (13.0-17.5); Lymphocytes # (A) 1.3 k/uL (1.0-4.8); Lymphocytes % (A) 25 %; MCH 34.7 pg (25.0-35.0); MCHC 34.3 g/dL (31.0-37.0); MCV 101.4 fL (80.0-100.0); Macrocytosis Slight; Mean Platelet Volume 9.8; Monocytes # (A) 0.3 k/uL (0-1.0); Monocytes % (A) 6 %; Neutrophils # (A) 3.1 k/uL (1.3-7.7); Neutrophils % (A) 60 %; RBC 2.52 m/uL (4.30-5.90); RDW 16.9 % (11.5-15.5); WBC 5.1 k/uL (3.8-10.6)
[2017-07-26 09:08] LABS: Magnesium 1.1 mg/dL (1.6-2.3)
[2017-07-26] MEDS ORDERED: Potassium Replacement Protocol 1 EACH MISC MISCELLANE PRN (09:16)
[2017-07-26] MEDS: POTASSIUM CHLORIDE 10 MEQ in SODIUM CHLORIDE 0.9% 100 ML IVPB SCH ×2 (09:55→11:22)
[2017-07-26] MEDS: NICOTINE 14MG/24HR PATCH TRANSDERM SCH (09:56)
[2017-07-26] MEDS: POTASSIUM CHLORIDE ER 20 MEQ TAB.ER PO SCH ×2 (09:56→11:23)
[2017-07-26] MEDS: THIAMINE 100 MG/ML 2 ML VIAL IVP SCH (09:57)
[2017-07-26 10:47] LABS: Platelet Count 57 k/uL (150-450); Poikilocytosis (M) Present
[2017-07-26] MEDS: MAGNESIUM SULFATE-D5W PMX 1 GM in DEXTROSE/WATER 1 100ML.BAG IVPB SCH ×3 (14:13→16:24)
[2017-07-26 15:05] VITALS: BMI 20.7
--- NOTE | 2017-07-26 22:43 | P.PN ---
Subjective Progress Note Date: 07/26/17 Principal diagnosis: Acute pancreatitis Patient is a 42-year-old male with a known history of alcohol abuse, liver cirrhosis, ascites and chronic pancreatitis came to ER with complaining of severe midepigastric and right upper quadrant abdominal pain. Patient states that he did have numerous alcoholic beverages today. States that the pain started approximately one to 2 hours ago. States he is nauseated but has not vomited. States throughout the day today has been able to eat and drink without difficulty. States that his abdomen feels swollen. Patient denies any recent rash, fever, chills, shortness breath, chest pain, diarrhea, constipation , back pain, numbness, tingling, dizziness, weakness, hematuria, dysuria, urinary urgency, urinary frequency, headache, visual changes, or any other complaints. KUB x-ray showed nonacute abdomen Lipase 1108 Serum alcohol 368 07/26/2017 Patient is still having abdominal pain but slightly improved. Continued on IV fluids and altered vitamins and thiamine. Potassium and magnesium is being replaced today. Otherwise no fever no chills. Leukocytosis improved. Sodium level improved to 139. Clinically improving otherwise. No fever no chills. No nausea or vomiting. All other review of systems negative except the above Current medications reviewed. Objective - Vital Signs Vital signs: Vital Signs Temp 97.8 F 07/26/17 14:48 Pulse 86 07/26/17 14:48 Resp 16 07/26/17 15:39 BP 132/65 07/26/17 14:48 Pulse Ox 97 07/26/17 14:48 Intake & Output 07/26/17 07/26/17 07/27/17 06:59 18:59 06:59 Intake Total 1301.667 Balance 1301.667 Weight 69.445 kg Intake: Intake, IV Titration 1301.667 Amount Mvi, Adult No.4 with Vit 1000 K 10 ml Thiamine 100 mg Folic Acid 1 mg In Sodium Chloride 0.9% 1,000 ml @ 125 mls/hr IV .BY DURATION [facility] Rx#: [id number] Sodium Chloride 0.45% 1, 300 000 ml @ 100 mls/hr IV . Q10H [facility] Rx#:[id number] Sodium Chloride 0.9% 1, 1.667 000 ml @ 125 mls/hr IV . BY DURATION [facility] Rx#: [id number] Other: # Voids 600 2 - Exam PHYSICAL EXAMINATION: Patient is lying in the bed comfortably, no acute distress, awake alert and oriented.. HEENT: Normocephalic. Neck is supple. Pupils reactive. Nostrils clear. Oral cavity is moist. Ears reveal no drainage. Neck reveals no JVD, carotid bruits, or thyromegaly. CHEST EXAMINATION: Trachea is central. Symmetrical expansion. Lung silva clear to auscultation and percussion. CARDIAC: Normal S1, S2 with no gallops. No murmurs ABDOMEN: Soft. Epigastric tenderness mild Bowel sounds normal. No organomegaly. No abdominal bruits. Extremities: reveal no edema. No clubbing or cyanosis Neurologically awake, alert, oriented x3 with well-coordinated movements. No focal deficits noted Skin: No rash or skin lesions. Psychiatric: Coperative. Nonsuicidal Musculoskeletal: No joint swelling or deformity. Normal range of motion. - Labs CBC & Chem 7: 07/26/17 08:15 07/26/17 08:15 Labs: Abnormal Lab Results - Last 24 Hours (Table) 07/26/17 07/26/17 Range/Units 08:15 08:15 RBC 2.52 L (4.30-5.90) m/uL Hgb 8.7 L (13.0-17.5) gm/dL Hct 25.5 L (39.0-53.0) % MCV 101.4 H (80.0-100.0) fL RDW 16.9 H (11.5-15.5) % Plt Count 57 L (150-450) k/uL Potassium 3.0 L* (3.5-5.1) mmol/L BUN 4 L (9-20) mg/dL Creatinine 0.49 L (0.66-1.25) mg/dL Calcium 8.3 L (8.4-10.2) mg/dL Magnesium 1.1 L (1.6-2.3) mg/dL Total Bilirubin 5.1 H (0.2-1.3) mg/dL AST 108 H (17-59) U/L Alkaline Phosphatase 156 H (38-126) U/L Albumin 2.9 L (3.5-5.0) g/dL Assessment and Plan Assessment: Acute pancreatitis with elevated lipase level. Likely alcohol related Acute alcohol intoxication on admission Elevated liver enzymes possible alcoholic It is Hyponatremia and hyperchloremia Severe alcohol abuse Liver cirrhosis and ascites with paracentesis 6 months ago at [facility] History of gallstones Nephrolithiasis History of MRSA Nicotine addiction Macrocytic anemia and chronic thrombocytopenia History of PTSD Plan: Patient will be continued on IV fluids and thiamine and multivitamins. Continue with morphine for pain management and nothing by mouth area and monitor liver enzymes and follow closely. Smoking cessation and alcohol abuse has been counseled extensively. Continue with home medications. Further recommendations based on the clinical course. Time with Patient: Greater than 30
[2017-07-27] MEDS: LORazepam 2 MG/ML INJ IV PRN ×3 (00:16→23:41)
[2017-07-27] MEDS: MORPHINE SULFATE 4 MG/ML SYRINGE IV PRN ×4 (01:48→20:53)
[2017-07-27] MEDS: 1: MVI, ADULT NO.4 WITH VIT K 10 ML, THIAMINE 100 MG, FOLIC ACID 1 MG in SODIUM CHLORIDE IV SCH ×16 (06:25→18:33)
[2017-07-27 09:03] LABS: Anion Gap 8 mmol/L; Blood Urea Nitrogen 3 mg/dL (9-20); Calcium 8.2 mg/dL (8.4-10.2); Carbon Dioxide 22 mmol/L (22-30); Chloride 109 mmol/L (98-107); Glucose 137 mg/dL (74-99); Magnesium 1.4 mg/dL (1.6-2.3); Sodium 139 mmol/L (137-145)
[2017-07-27 09:12] LABS: Potassium 2.8 mmol/L (3.5-5.1)
[2017-07-27 10:16] LABS: Anisocytosis Slight; Basophils % (A) 1 %; Eosinophils # (A) 0.3 k/uL (0-0.7); Eosinophils % (A) 6 %; HCT 26.4 % (39.0-53.0); HGB 8.4 gm/dL (13.0-17.5); Lymphocytes # (A) 1.3 k/uL (1.0-4.8); Lymphocytes % (A) 26 %; MCH 33.4 pg (25.0-35.0); MCHC 31.9 g/dL (31.0-37.0); MCV 104.7 fL (80.0-100.0); Macrocytosis Moderate; Mean Platelet Volume 10.3; Monocytes # (A) 0.3 k/uL (0-1.0); Monocytes % (A) 7 %; Neutrophils # (A) 2.9 k/uL (1.3-7.7); Neutrophils % (A) 58 %; RBC 2.52 m/uL (4.30-5.90); RDW 16.9 % (11.5-15.5); WBC 4.9 k/uL (3.8-10.6)
[2017-07-27] MEDS ORDERED: Potassium Replacement Protocol 1 EACH MISC MISCELLANE PRN (10:31)
[2017-07-27] MEDS ORDERED: Magnesium Replacement Protocol 1 EACH MISC MISCELLANE PRN (10:36)
[2017-07-27] MEDS: POTASSIUM CHLORIDE 10 MEQ in SODIUM CHLORIDE 0.9% 100 ML IVPB SCH ×3 (10:51→14:03)
[2017-07-27] MEDS: MAGNESIUM SULFATE-D5W PMX 1 GM in DEXTROSE/WATER 1 100ML.BAG IVPB SCH ×3 (10:51→14:03)
[2017-07-27] MEDS: POTASSIUM CHLORIDE ER 20 MEQ TAB.ER PO SCH ×3 (10:51→14:03)
[2017-07-27] MEDS: NICOTINE 14MG/24HR PATCH TRANSDERM SCH (10:53)
[2017-07-27] MEDS: THIAMINE 100 MG/ML 2 ML VIAL IVP SCH (10:55)
[2017-07-27 11:01] LABS: Platelet Count 43 k/uL (150-450)
[2017-07-27 11:02] LABS: Poikilocytosis (M) Present
[2017-07-27] MEDS ORDERED: POTASSIUM CHLORIDE 20 MEQ in SODIUM CHLORIDE 0.9% 100 ML IVPB STA (11:04)
[2017-07-27 11:18] LABS: Amylase 41 U/L (30-110); Lipase 233 U/L (23-300)
[2017-07-27 16:11] LABS: Magnesium 2.3 mg/dL (1.6-2.3); Potassium 4.2 mmol/L (3.5-5.1)
[2017-07-28] MEDS: MORPHINE SULFATE 4 MG/ML SYRINGE IV PRN ×5 (01:05→20:21)
[2017-07-28] MEDS: LORazepam 2 MG/ML INJ IV PRN ×3 (03:25→23:18)
[2017-07-28] MEDS: THIAMINE 100 MG/ML 2 ML VIAL IVP SCH (08:55)
[2017-07-28] MEDS: NICOTINE 14MG/24HR PATCH TRANSDERM SCH (08:55)
[2017-07-28] MEDS: 1: MVI, ADULT NO.4 WITH VIT K 10 ML, THIAMINE 100 MG, FOLIC ACID 1 MG in SODIUM CHLORIDE IV SCH ×8 (09:10→17:44)
[2017-07-28 10:44] LABS: Anisocytosis Slight; Basophils # (A) 0.1 k/uL (0-0.2); Basophils % (A) 1 %; Eosinophils # (A) 0.3 k/uL (0-0.7); Eosinophils % (A) 6 %; HCT 24.9 % (39.0-53.0); HGB 8.1 gm/dL (13.0-17.5); Lymphocytes # (A) 1.4 k/uL (1.0-4.8); Lymphocytes % (A) 26 %; MCH 34.1 pg (25.0-35.0); MCHC 32.8 g/dL (31.0-37.0); MCV 104.1 fL (80.0-100.0); Macrocytosis Moderate; Mean Platelet Volume 10.1; Monocytes # (A) 0.5 k/uL (0-1.0); Monocytes % (A) 8 %; Neutrophils % (A) 55 %; RBC 2.39 m/uL (4.30-5.90); WBC 5.3 k/uL (3.8-10.6)
[2017-07-28 11:09] LABS: ALT 27 U/L (21-72); AST 70 U/L (17-59); Albumin 2.7 g/dL (3.5-5.0); Alkaline Phosphatase 150 U/L (38-126); Anion Gap 7 mmol/L; Blood Urea Nitrogen 3 mg/dL (9-20); Calcium 8.3 mg/dL (8.4-10.2); Carbon Dioxide 22 mmol/L (22-30); Chloride 112 mmol/L (98-107); Glucose 106 mg/dL (74-99); Magnesium 1.5 mg/dL (1.6-2.3); Potassium 3.3 mmol/L (3.5-5.1); Sodium 141 mmol/L (137-145); Total Bilirubin 4.2 mg/dL (0.2-1.3); Total Protein 6.5 g/dL (6.3-8.2)
[2017-07-28] MEDS: MAGNESIUM SULFATE-D5W PMX 1 GM in DEXTROSE/WATER 1 100ML.BAG IVPB SCH ×2 (12:08→14:19)
[2017-07-28 12:25] LABS: Platelet Count 54 k/uL (150-450); Poikilocytosis (M) Present
--- NOTE | 2017-07-28 23:04 | P.PN ---
Subjective Progress Note Date: 07/27/17 Principal diagnosis: Acute pancreatitis Patient is a 42-year-old male with a known history of alcohol abuse, liver cirrhosis, ascites and chronic pancreatitis came to ER with complaining of severe midepigastric and right upper quadrant abdominal pain. Patient states that he did have numerous alcoholic beverages today. States that the pain started approximately one to 2 hours ago. States he is nauseated but has not vomited. States throughout the day today has been able to eat and drink without difficulty. States that his abdomen feels swollen. Patient denies any recent rash, fever, chills, shortness breath, chest pain, diarrhea, constipation , back pain, numbness, tingling, dizziness, weakness, hematuria, dysuria, urinary urgency, urinary frequency, headache, visual changes, or any other complaints. KUB x-ray showed nonacute abdomen Lipase 1108 Serum alcohol 368 07/26/2017 Patient is still having abdominal pain but slightly improved. Continued on IV fluids and altered vitamins and thiamine. Potassium and magnesium is being replaced today. Otherwise no fever no chills. Leukocytosis improved. Sodium level improved to 139. Clinically improving otherwise. No fever no chills. No nausea or vomiting. 07/27/2017 Patient is still complaining of abdominal pain but is improving slowly. Continued on IV hydration and multivitamins. Otherwise patient is still hypokalemic and hyponatremia which is being replaced aggressively. Patient is also having thrombocytopenia. No active signs of bleeding or bruising. No fever no chills. No leukocytosis. Patient is also on CIWA scale for withdrawal symptoms. All other review of systems negative except the above Current medications reviewed. Objective - Vital Signs Vital signs: Vital Signs Temp 97.8 F 07/27/17 15:00 Pulse 81 07/27/17 15:00 Resp 16 07/27/17 16:00 BP 108/71 07/27/17 15:00 Pulse Ox 95 07/27/17 15:00 Intake & Output 07/27/17 07/27/17 07/28/17 06:59 18:59 06:59 Intake Total 1011.2 765 Output Total 2200 2000 Balance -1188.8 -1235 Intake: Intake, IV Titration 1011.2 765 Amount Mvi, Adult No.4 with Vit 1011.2 K 10 ml Thiamine 100 mg Folic Acid 1 mg In Sodium Chloride 0.9% 1,000 ml @ 125 mls/hr IV .BY DURATION [facility] Rx#: [id number] Sodium Chloride 0.9% 1, 765 000 ml @ 125 mls/hr IV . BY DURATION [facility] Rx#: [id number] Output: Urine 2200 2000 - Exam PHYSICAL EXAMINATION: Patient is lying in the bed comfortably, no acute distress, awake alert and oriented.. HEENT: Normocephalic. Neck is supple. Pupils reactive. Nostrils clear. Oral cavity is moist. Ears reveal no drainage. Neck reveals no JVD, carotid bruits, or thyromegaly. CHEST EXAMINATION: Trachea is central. Symmetrical expansion. Lung silva clear to auscultation and percussion. CARDIAC: Normal S1, S2 with no gallops. No murmurs ABDOMEN: Soft. Epigastric tenderness mild Bowel sounds normal. No organomegaly. No abdominal bruits. Extremities: reveal no edema. No clubbing or cyanosis Neurologically awake, alert, oriented x3 with well-coordinated movements. No focal deficits noted Skin: No rash or skin lesions. Psychiatric: Coperative. Nonsuicidal Musculoskeletal: No joint swelling or deformity. Normal range of motion. - Labs CBC & Chem 7: 07/28/17 09:22 07/28/17 09:22 Labs: Abnormal Lab Results - Last 24 Hours (Table) 07/27/17 07/27/17 Range/Units 08:28 08:28 RBC 2.52 L (4.30-5.90) m/uL Hgb 8.4 L (13.0-17.5) gm/dL Hct 26.4 L (39.0-53.0) % MCV 104.7 H (80.0-100.0) fL RDW 16.9 H (11.5-15.5) % Plt Count 43 L* (150-450) k/uL Potassium 2.8 L* (3.5-5.1) mmol/L Chloride 109 H (98-107) mmol/L BUN 3 L (9-20) mg/dL Creatinine 0.45 L (0.66-1.25) mg/dL Glucose 137 H (74-99) mg/dL Calcium 8.2 L (8.4-10.2) mg/dL Magnesium 1.4 L (1.6-2.3) mg/dL Assessment and Plan Assessment: Acute pancreatitis with elevated lipase level. Likely alcohol related Acute alcohol intoxication on admission Elevated liver enzymes possible alcoholic hepatitis Hypernatremia and hyperchloremia. Improved. Severe alcohol abuse Liver cirrhosis and ascites with paracentesis 6 months ago at History of gallstones Nephrolithiasis History of MRSA Nicotine addiction Macrocytic anemia and chronic thrombocytopenia History of PTSD Severe hypokalemia and hypomagnesemia Plan: Patient will be continued on IV fluids and thiamine and multivitamins. Continue with morphine for pain management and nothing by mouth area and monitor liver enzymes and follow closely. Smoking cessation and alcohol abuse has been counseled extensively. Continue with home medications. Further recommendations based on the clinical course. Time with Patient: Greater than 30
--- NOTE | 2017-07-28 23:06 | P.PN ---
Subjective Progress Note Date: 07/28/17 Principal diagnosis: Acute pancreatitis Patient is a 42-year-old male with a known history of alcohol abuse, liver cirrhosis, ascites and chronic pancreatitis came to ER with complaining of severe midepigastric and right upper quadrant abdominal pain. Patient states that he did have numerous alcoholic beverages today. States that the pain started approximately one to 2 hours ago. States he is nauseated but has not vomited. States throughout the day today has been able to eat and drink without difficulty. States that his abdomen feels swollen. Patient denies any recent rash, fever, chills, shortness breath, chest pain, diarrhea, constipation , back pain, numbness, tingling, dizziness, weakness, hematuria, dysuria, urinary urgency, urinary frequency, headache, visual changes, or any other complaints. KUB x-ray showed nonacute abdomen Lipase 1108 Serum alcohol 368 07/26/2017 Patient is still having abdominal pain but slightly improved. Continued on IV fluids and altered vitamins and thiamine. Potassium and magnesium is being replaced today. Otherwise no fever no chills. Leukocytosis improved. Sodium level improved to 139. Clinically improving otherwise. No fever no chills. No nausea or vomiting. 07/27/2017 Patient is still complaining of abdominal pain but is improving slowly. Continued on IV hydration and multivitamins. Otherwise patient is still hypokalemic and hyponatremia which is being replaced aggressively. Patient is also having thrombocytopenia. No active signs of bleeding or bruising. No fever no chills. No leukocytosis. Patient is also on CIWA scale for withdrawal symptoms. 07/28/2017 Patient's clinical status slightly improved today. Hypokalemia improved as well. Patient still having hypomagnesemia which is being replaced. Platelet count slightly improved otherwise. No nausea vomiting. Abdominal pain is better than yesterday. No diarrhea. No fever no chills. No chest pain or shortness of breath. Patient will be started on clear liquids and advance as tolerated. No other acute overnight issues otherwise. All other review of systems negative except the above Current medications reviewed. Objective - Vital Signs Vital signs: Vital Signs Temp 97.0 F L 07/28/17 15:00 Pulse 94 07/28/17 15:00 Resp 16 07/28/17 15:00 BP 105/50 07/28/17 15:00 Pulse Ox 97 07/28/17 15:00 Intake & Output 07/28/17 07/28/17 07/29/17 06:59 18:59 06:59 Intake Total 1000 1440 Output Total 1700 Balance -700 1440 Intake: IV 1200 Magnesium Sulfate-D5w Pmx 200 1 gm In Dextrose/Water 1 100ml.bag @ 100 mls/hr IVPB Q1H [facility] Rx#: [id number] Mvi, Adult No.4 with Vit 1000 K 10 ml Thiamine 100 mg Folic Acid 1 mg In Sodium Chloride 0.9% 1,000 ml @ 125 mls/hr IV .BY DURATION [facility] Rx#: [id number] Intake, IV Titration 1000 Amount Sodium Chloride 0.9% 1, 1000 000 ml @ 125 mls/hr IV . BY DURATION [facility] Rx#: [id number] Oral 240 Output: Urine 1700 Other: # Voids 0 # Bowel Movements 0 - Exam PHYSICAL EXAMINATION: Patient is lying in the bed comfortably, no acute distress, awake alert and oriented.. HEENT: Normocephalic. Neck is supple. Pupils reactive. Nostrils clear. Oral cavity is moist. Ears reveal no drainage. Neck reveals no JVD, carotid bruits, or thyromegaly. CHEST EXAMINATION: Trachea is central. Symmetrical expansion. Lung silva clear to auscultation and percussion. CARDIAC: Normal S1, S2 with no gallops. No murmurs ABDOMEN: Soft. Epigastric tenderness mild Bowel sounds normal. No organomegaly. No abdominal bruits. Extremities: reveal no edema. No clubbing or cyanosis Neurologically awake, alert, oriented x3 with well-coordinated movements. No focal deficits noted Skin: No rash or skin lesions. Psychiatric: Coperative. Nonsuicidal Musculoskeletal: No joint swelling or deformity. Normal range of motion. - Labs CBC & Chem 7: 07/28/17 09:22 07/28/17 09:22 Labs: Abnormal Lab Results - Last 24 Hours (Table) 07/28/17 07/28/17 Range/Units 09:22 09:22 RBC 2.39 L (4.30-5.90) m/uL Hgb 8.1 L (13.0-17.5) gm/dL Hct 24.9 L (39.0-53.0) % MCV 104.1 H (80.0-100.0) fL RDW 17.0 H (11.5-15.5) % Plt Count 54 L (150-450) k/uL Potassium 3.3 L (3.5-5.1) mmol/L Chloride 112 H (98-107) mmol/L BUN 3 L (9-20) mg/dL Creatinine 0.46 L (0.66-1.25) mg/dL Glucose 106 H (74-99) mg/dL Calcium 8.3 L (8.4-10.2) mg/dL Magnesium 1.5 L (1.6-2.3) mg/dL Total Bilirubin 4.2 H (0.2-1.3) mg/dL AST 70 H (17-59) U/L Alkaline Phosphatase 150 H (38-126) U/L Albumin 2.7 L (3.5-5.0) g/dL Assessment and Plan Assessment: Acute pancreatitis with elevated lipase level. Likely alcohol related Acute alcohol intoxication on admission Elevated liver enzymes possible alcoholic hepatitis Hypernatremia and hyperchloremia. Improved. Severe alcohol abuse Liver cirrhosis and ascites with paracentesis 6 months ago at [facility] History of gallstones Nephrolithiasis History of MRSA Nicotine addiction Macrocytic anemia and chronic thrombocytopenia History of PTSD Severe hypokalemia and hypomagnesemia Plan: Patient will be continued on IV fluids and thiamine and multivitamins. Continue with morphine for pain management and nothing by mouth area and monitor liver enzymes and follow closely. Smoking cessation and alcohol abuse has been counseled extensively. Continue with home medications. Further recommendations based on the clinical course. Time with Patient: Greater than 30
[2017-07-29] MEDS: MORPHINE SULFATE 4 MG/ML SYRINGE IV PRN ×3 (03:06→13:26)
[2017-07-29] MEDS: 1: MVI, ADULT NO.4 WITH VIT K 10 ML, THIAMINE 100 MG, FOLIC ACID 1 MG in SODIUM CHLORIDE IV SCH ×20 (05:28→20:48)
[2017-07-29] MEDS: NICOTINE 14MG/24HR PATCH TRANSDERM SCH (08:24)
[2017-07-29 08:45] LABS: Anisocytosis Slight; Basophils % (A) 1 %; Eosinophils # (A) 0.3 k/uL (0-0.7); Eosinophils % (A) 5 %; HCT 24.6 % (39.0-53.0); HGB 7.8 gm/dL (13.0-17.5); Lymphocytes # (A) 1.4 k/uL (1.0-4.8); Lymphocytes % (A) 25 %; MCH 33.5 pg (25.0-35.0); MCHC 31.7 g/dL (31.0-37.0); MCV 105.6 fL (80.0-100.0); Macrocytosis Marked; Mean Platelet Volume 10.1; Monocytes # (A) 0.5 k/uL (0-1.0); Monocytes % (A) 8 %; Neutrophils # (A) 3.1 k/uL (1.3-7.7); Neutrophils % (A) 57 %; RBC 2.32 m/uL (4.30-5.90); RDW 17.3 % (11.5-15.5); WBC 5.4 k/uL (3.8-10.6)
[2017-07-29 08:52] LABS: Platelet Count 59 k/uL (150-450)
[2017-07-29] MEDS: THIAMINE 100 MG/ML 2 ML VIAL IVP SCH (08:57)
[2017-07-29 09:09] LABS: Poikilocytosis (M) Present
[2017-07-29 09:21] LABS: ALT 22 U/L (21-72); AST 57 U/L (17-59); Albumin 2.7 g/dL (3.5-5.0); Alkaline Phosphatase 162 U/L (38-126); Anion Gap 6 mmol/L; Blood Urea Nitrogen 3 mg/dL (9-20); Calcium 8.5 mg/dL (8.4-10.2); Carbon Dioxide 23 mmol/L (22-30); Chloride 111 mmol/L (98-107); Glucose 87 mg/dL (74-99); Potassium 3.3 mmol/L (3.5-5.1); Sodium 140 mmol/L (137-145); Total Bilirubin 2.9 mg/dL (0.2-1.3); Total Protein 6.5 g/dL (6.3-8.2)
[2017-07-29] MEDS: POTASSIUM CHLORIDE 10 MEQ in SODIUM CHLORIDE 0.9% 100 ML IVPB SCH ×2 (11:19→12:52)
[2017-07-29] MEDS: HYDROcodone/APAP 5-325MG 1 EACH TAB PO PRN ×2 (18:10→21:50)
[2017-07-29] MEDS: LORazepam 2 MG/ML INJ IV PRN (23:42)
[2017-07-30] MEDS: HYDROcodone/APAP 5-325MG 1 EACH TAB PO PRN ×2 (03:46→08:26)
[2017-07-30] MEDS: NICOTINE 14MG/24HR PATCH TRANSDERM SCH ×2 (08:27→08:28)
[2017-07-30] MEDS: THIAMINE 100 MG/ML 2 ML VIAL IVP SCH (08:27)
[2017-07-30] MEDS: 1: MVI, ADULT NO.4 WITH VIT K 10 ML, THIAMINE 100 MG, FOLIC ACID 1 MG in SODIUM CHLORIDE IV SCH ×4 (10:32)
[2017-07-30] MEDS ORDERED: Magnesium Replacement Protocol 1 EACH MISC MISCELLANE PRN (14:06)
[2017-07-30] MEDS ORDERED: Potassium Replacement Protocol 1 EACH MISC MISCELLANE PRN (14:06)
[2017-07-30 14:57] LABS: Anion Gap 6 mmol/L; Blood Urea Nitrogen 7 mg/dL (9-20); Calcium 9.2 mg/dL (8.4-10.2); Carbon Dioxide 26 mmol/L (22-30); Chloride 108 mmol/L (98-107); Glucose 103 mg/dL (74-99); Magnesium 1.4 mg/dL (1.6-2.3); Potassium 3.8 mmol/L (3.5-5.1); Sodium 140 mmol/L (137-145)
[2017-07-30] MEDS ORDERED: MAGNESIUM OXIDE 400 MG TAB PO STA ×2 (15:19)
[2017-07-30 15:43] VITALS: BP 122/67; PULSE 66; RESP 18; TEMP 97.9
--- NOTE | 2017-07-30 21:04 | DS ---
DISCHARGE SUMMARY FINAL DIAGNOSES: 1. Acute pancreatitis with elevated lipase, possibly secondary to EtOH. 2. Elevated liver enzymes, possible alcoholic hepatitis. 3. Hyponatremia. 4. History of severe alcohol abuse. 5. Liver cirrhosis. 6. History of gallstones. 8. History of methicillin-resistant Staphylococcus aureus. 9. History of nicotine dependence. DISCHARGE DISPOSITION: The patient will be discharged in stable condition with a guarded prognosis. Total time taken 35 minutes. HISTORY OF PRESENT ILLNESS: This 42-year-old gentleman admitted with acute pancreatitis secondary to alcohol. Patient improved significantly. Patient is closely monitored and symptomatically improved significantly. Alcohol cessation as well as rehab is . EXAM: Vitals are stable. CARDIOVASCULAR: S1, S2 muffled. ABDOMEN: Soft. NERVOUS SYSTEM: Nonfocal. DISCHARGE ADVICE: Diet is cardiac. Activity limited until followup. No alcohol. Follow up with Dr. Guevara in 1 week. MEDICATIONS: 1. Iron sulfate 325 mg p.o. daily. 2. Folic acid 1 mg p.o. daily. 3. Ativan 1 mg t.i.d. p.r.n. 4. Multivitamins 1 p.o. daily. 5. Habitrol 14 daily. 6. Potassium 99 mg p.o. daily. 7. Vitamin B1 100 mg p.o. daily. MMODL / IJN: [id number] / [facility]
--- NOTE | 2017-08-02 21:34 | P.PN ---
Subjective Progress Note Date: 07/29/17 Principal diagnosis: Acute pancreatitis Patient is a 42-year-old male with a known history of alcohol abuse, liver cirrhosis, ascites and chronic pancreatitis came to ER with complaining of severe midepigastric and right upper quadrant abdominal pain. Patient states that he did have numerous alcoholic beverages today. States that the pain started approximately one to 2 hours ago. States he is nauseated but has not vomited. States throughout the day today has been able to eat and drink without difficulty. States that his abdomen feels swollen. Patient denies any recent rash, fever, chills, shortness breath, chest pain, diarrhea, constipation , back pain, numbness, tingling, dizziness, weakness, hematuria, dysuria, urinary urgency, urinary frequency, headache, visual changes, or any other complaints. KUB x-ray showed nonacute abdomen Lipase 1108 Serum alcohol 368 07/26/2017 Patient is still having abdominal pain but slightly improved. Continued on IV fluids and altered vitamins and thiamine. Potassium and magnesium is being replaced today. Otherwise no fever no chills. Leukocytosis improved. Sodium level improved to 139. Clinically improving otherwise. No fever no chills. No nausea or vomiting. 07/27/2017 Patient is still complaining of abdominal pain but is improving slowly. Continued on IV hydration and multivitamins. Otherwise patient is still hypokalemic and hyponatremia which is being replaced aggressively. Patient is also having thrombocytopenia. No active signs of bleeding or bruising. No fever no chills. No leukocytosis. Patient is also on CIWA scale for withdrawal symptoms. 07/28/2017 Patient's clinical status slightly improved today. Hypokalemia improved as well. Patient still having hypomagnesemia which is being replaced. Platelet count slightly improved otherwise. No nausea vomiting. Abdominal pain is better than yesterday. No diarrhea. No fever no chills. No chest pain or shortness of breath. Patient will be started on clear liquids and advance as tolerated. No other acute overnight issues otherwise. 07/29/2017 Patient says that his abdominal pain is better today. Patient will be started on clear liquids and advance as tolerated. Platelet count is improving otherwise. No fever no chills. No nausea vomiting. All other review of systems negative except the above Current medications reviewed. Objective - Vital Signs Vital signs: Vital Signs Temp 98.2 F 07/29/17 07:00 Pulse 80 07/29/17 07:00 Resp 18 07/28/17 23:00 BP 127/76 07/29/17 07:00 Pulse Ox 96 07/29/17 07:00 Intake & Output 07/28/17 07/29/17 07/29/17 18:59 06:59 18:59 Intake Total 2451.2 1000 1000 Balance 2451.2 1000 1000 Weight 69.445 kg Intake: IV 1200 1000 Magnesium Sulfate-D5w Pmx 200 1 gm In Dextrose/Water 1 100ml.bag @ 100 mls/hr IVPB Q1H RADHA Rx#: [id number] Mvi, Adult No.4 with Vit 1000 1000 K 10 ml Thiamine 100 mg Folic Acid 1 mg In Sodium Chloride 0.9% 1,000 ml @ 80 mls/hr IV .BY DURATION RADHA Rx#: [id number] Intake, IV Titration 1011.2 Amount Mvi, Adult No.4 with Vit 1011.2 K 10 ml Thiamine 100 mg Folic Acid 1 mg In Sodium Chloride 0.9% 1,000 ml @ 80 mls/hr IV .BY DURATION RADHA Rx#: [id number] Oral 240 1000 Other: # Voids 2 1 # Bowel Movements 0 - Exam PHYSICAL EXAMINATION: Patient is lying in the bed comfortably, no acute distress, awake alert and oriented.. HEENT: Normocephalic. Neck is supple. Pupils reactive. Nostrils clear. Oral cavity is moist. Ears reveal no drainage. Neck reveals no JVD, carotid bruits, or thyromegaly. CHEST EXAMINATION: Trachea is central. Symmetrical expansion. Lung silva clear to auscultation and percussion. CARDIAC: Normal S1, S2 with no gallops. No murmurs ABDOMEN: Soft. Epigastric tenderness mild Bowel sounds normal. No organomegaly. No abdominal bruits. Extremities: reveal no edema. No clubbing or cyanosis Neurologically awake, alert, oriented x3 with well-coordinated movements. No focal deficits noted Skin: No rash or skin lesions. Psychiatric: Coperative. Nonsuicidal Musculoskeletal: No joint swelling or deformity. Normal range of motion. - Labs CBC & Chem 7: 07/29/17 08:03 07/30/17 14:19 Labs: Abnormal Lab Results - Last 24 Hours (Table) 07/29/17 07/29/17 Range/Units 08:03 08:03 RBC 2.32 L (4.30-5.90) m/uL Hgb 7.8 L (13.0-17.5) gm/dL Hct 24.6 L (39.0-53.0) % MCV 105.6 H (80.0-100.0) fL RDW 17.3 H (11.5-15.5) % Plt Count 59 L (150-450) k/uL Potassium 3.3 L (3.5-5.1) mmol/L Chloride 111 H (98-107) mmol/L BUN 3 L (9-20) mg/dL Creatinine 0.42 L (0.66-1.25) mg/dL Total Bilirubin 2.9 H (0.2-1.3) mg/dL Alkaline Phosphatase 162 H (38-126) U/L Albumin 2.7 L (3.5-5.0) g/dL Assessment and Plan Assessment: Acute pancreatitis with elevated lipase level. Likely alcohol related Acute alcohol intoxication on admission Elevated liver enzymes possible alcoholic hepatitis Hypernatremia and hyperchloremia. Improved. Severe alcohol abuse Liver cirrhosis and ascites with paracentesis 6 months ago at [facility] History of gallstones Nephrolithiasis History of MRSA Nicotine addiction Macrocytic anemia and chronic thrombocytopenia History of PTSD Severe hypokalemia and hypomagnesemia Plan: Patient will be continued on IV fluids and thiamine and multivitamins. Continue with morphine for pain management and nothing by mouth area and monitor liver enzymes and follow closely. Smoking cessation and alcohol abuse has been counseled extensively. Continue with home medications. Further recommendations based on the clinical course. Time with Patient: Greater than 30
== END 2017-07-30 16:15 | disposition home or self-care (01) | DRG 439 ==
LOC: EC 21:34 → 4MS4W 07-25 00:40
PROVIDERS: ADMIT Internal Medicine; ATTEND Internal Medicine
DX: K85.20 Alcohol induced acute pancreatitis without necrosis or infection (principal); E87.1 Hypo-osmolality and hyponatremia; D69.6 Thrombocytopenia, unspecified; E87.8 Other disorders of electrolyte and fluid balance, not elsewhere classified; D53.9 Nutritional anemia, unspecified; E83.42 Hypomagnesemia; E87.6 Hypokalemia; F10.129 Alcohol abuse with intoxication, unspecified; F17.200 Nicotine dependence, unspecified, uncomplicated; F43.10 Post-traumatic stress disorder, unspecified; J45.909 Unspecified asthma, uncomplicated; K70.30 Alcoholic cirrhosis of liver without ascites; K86.1 Other chronic pancreatitis; Y90.8 Blood alcohol level of 240 mg/100 ml or more; Z82.49 Family history of ischemic heart disease and other diseases of the circulatory system; Z86.14 Personal history of Methicillin resistant Staphylococcus aureus infection; Z87.442 Personal history of urinary calculi; K70.10 Alcoholic hepatitis without ascites; Z71.6 Tobacco abuse counseling; Z71.41 Alcohol abuse counseling and surveillance of alcoholic
CPT/HCPCS: 36415; 74018; 80048; 80053; 80320; 81001; 82150; 83690; 83735; 84100; 84132; 85025; 96361; 96374; 99285

== ENCOUNTER 2017-07-31 06:29 | Emergency (ER) | payer OTHER ==
[2017-07-31 06:34] VITALS: RESP 16
[2017-07-31 07:02] LABS: Anisocytosis Slight; HCT 28.5 % (39.0-53.0); MCH 35.9 pg (25.0-35.0); MCHC 33.8 g/dL (31.0-37.0); MCV 106.3 fL (80.0-100.0); Macrocytosis Marked; Mean Platelet Volume 8.7; RBC 2.68 m/uL (4.30-5.90); RDW 18.1 % (11.5-15.5); WBC 8.1 k/uL (3.8-10.6)
[2017-07-31 07:14] LABS: Albumin 3.5 g/dL (3.5-5.0); Amylase 60 U/L (30-110); Anion Gap 14 mmol/L; Calcium 9.2 mg/dL (8.4-10.2); Carbon Dioxide 19 mmol/L (22-30); Chloride 115 mmol/L (98-107); Glucose 104 mg/dL (74-99); Lipase 402 U/L (23-300); Sodium 148 mmol/L (137-145); Total Bilirubin 3.2 mg/dL (0.2-1.3)
[2017-07-31 07:15] LABS: HGB 9.6 gm/dL (13.0-17.5)
--- NOTE | 2017-07-31 07:15 | XR ---
EXAMINATION TYPE: XR KUB portable , 2 VIEWS DATE OF EXAM ORDERED: 07/31/2017 HISTORY: Pain. COMPARISON: Previous study dated 07/24/2017. FINDINGS: The lung bases are clear. The abdominal gas pattern is nonspecific with nondistended loops of large and small bowel throughout the abdomen. There is no evidence of obstruction or free air. No unusual calcifications are identifie d. There has been a previous cholecystectomy. IMPRESSION: NONSPECIFIC ABDOMINAL GAS PATTERN.
[2017-07-31 07:22] VITALS: PULSE 88
[2017-07-31 07:28] LABS: ALT 19 U/L (21-72); AST 71 U/L (17-59); Alcohol 171 mg/dL; Alkaline Phosphatase 152 U/L (38-126); Blood Urea Nitrogen 3 mg/dL (9-20)
[2017-07-31 07:30] LABS: Platelet Count 92 k/uL (150-450)
--- NOTE | 2017-07-31 08:45 | ED ---
General Adult HPI - General Chief complaint: Abdominal Pain Stated complaint: Abdominal Pain Time Seen by Provider: 07/31/17 08:00 Source: patient, EMS, RN notes reviewed Mode of arrival: EMS Limitations: no limitations - History of Present Illness Initial comments: Patient is a 42-year-old male presenting to the emergency Department with abdominal pain. Patient reportedly just left [facility] and came here. Patient does admit to having alcohol problem and continue to drink alcohol. Patient states discomfort is fairly chronic for him. Patient has been evaluated for this multiple times and diagnosed with pancreatitis. No other complaints. - Related Data Home Medications Medication Instructions Recorded Confirmed Multivitamin [Multivitamins Adult 2 tab PO DAILY 07/25/17 07/25/17 Gummies] Potassium 99 mg PO DAILY 07/25/17 07/25/17 Previous Rx's Medication Instructions Recorded Thiamine [Vitamin B-1] 100 mg PO DAILY #30 tablet 06/02/17 Ferrous Sulfate [Feosol] 325 mg PO DAILY #30 tab 07/30/17 Folic Acid 1 mg PO DAILY #30 tablet 07/30/17 LORazepam [Ativan] 1 mg PO TID PRN #20 tab 07/30/17 Nicotine 14Mg/24Hr Patch [Habitrol] 1 patch TRANSDERM DAILY #30 patch 07/30/17 Allergies Allergy/AdvReac Type Severity Reaction Status Date / Time No Known Allergies Allergy Verified 07/25/17 08:51 Review of Systems ROS Statement: Those systems with pertinent positive or pertinent negative responses have been documented in the HPI. ROS Other: All systems not noted in ROS Statement are negative. Constitutional: Denies: fever Eyes: Denies: eye pain ENT: Denies: ear pain Respiratory: Denies: cough Cardiovascular: Denies: chest pain Endocrine: Denies: fatigue Gastrointestinal: Reports: abdominal pain. Denies: nausea, vomiting Genitourinary: Denies: dysuria Musculoskeletal: Denies: back pain Skin: Denies: rash Neurological: Denies: weakness Past Medical History Past Medical History: Asthma, Liver Disease, Pneumonia Additional Past Medical History / Comment(s): ETOH abuse, liver cirrhosis, abdominal ascities, pancreatitis, gallstones, pneumonia, nephrolithiasis, chronic anemia. History of Any Multi-Drug Resistant Organisms: MRSA Date of last positivie culture/infection: 12/09/2013 MDRO Source:: Right First Finger Past Surgical History: Appendectomy, Cholecystectomy, Orthopedic Surgery Additional Past Surgical History / Comment(s): Paracentesis at [place] about 6 months ago, right hand tendon repair, right knee arthroscopy, cystoscopy for kidney stone removal. Past Anesthesia/Blood Transfusion Reactions: No Reported Reaction Past Psychological History: PTSD Smoking Status: Current every day smoker Past Alcohol Use History: Daily Past Drug Use History: Marijuana - Past Family History Mother Family Medical History: Hypertension Father Additional Family Medical History / Comment(s): Prostate issues. Brain aneurism. General Exam Limitations: no limitations General appearance: alert, in no apparent distress Head exam: Present: atraumatic Eye exam: Present: normal appearance Neck exam: Present: normal inspection Respiratory exam: Present: normal lung sounds bilaterally Cardiovascular Exam: Present: regular rate, normal rhythm Expanded Peripheral pulses: 2+: Posterior Tibialis (R), Posterior Tibialis (L) GI/Abdominal exam: Present: soft, tenderness (Mild epigastric tenderness), normal bowel sounds. Absent: distended, guarding, rebound, rigid, pulsatile mass Extremities exam: Present: normal inspection Neurological exam: Present: alert Psychiatric exam: Present: normal affect, normal mood Skin exam: Present: normal color Course Vital Signs 07/31/17 07/31/17 06:31 07:21 Temperature 98.1 F Pulse Rate 80 88 Respiratory 16 16 Rate Blood Pressure 139/68 139/87 O2 Sat by Pulse 100 98 Oximetry Medical Decision Making - Medical Decision Making Patient reevaluated and resting comfortably in bed. Minimal discomfort in the epigastric region. Patient is updated on results and need for follow-up. Patient is counseled regarding alcohol problems. Patient is strongly encouraged to discontinue alcohol. - Lab Data Result diagrams: 07/31/17 06:49 07/31/17 06:49 Lab Results 07/31/17 07/31/17 Range/Units 06:49 06:49 WBC 8.1 (3.8-10.6) k/uL RBC 2.68 L (4.30-5.90) m/uL Hgb 9.6 L D (13.0-17.5) gm/dL Hct 28.5 L (39.0-53.0) % MCV 106.3 H (80.0-100.0) fL MCH 35.9 H (25.0-35.0) pg MCHC 33.8 (31.0-37.0) g/dL RDW 18.1 H (11.5-15.5) % Plt Count 92 L D (150-450) k/uL Anisocytosis Slight Macrocytosis Marked Sodium 148 H (137-145) mmol/L Potassium 4.0 (3.5-5.1) mmol/L Chloride 115 H (98-107) mmol/L Carbon Dioxide 19 L (22-30) mmol/L Anion Gap 14 mmol/L BUN 3 L (9-20) mg/dL Creatinine 0.46 L (0.66-1.25) mg/dL Est GFR (CKD-EPI)AfAm >90 (>60 ml/min/1.73 sqM) Est GFR (CKD-EPI)NonAf >90 (>60 ml/min/1.73 sqM) Glucose 104 H (74-99) mg/dL Calcium 9.2 (8.4-10.2) mg/dL Total Bilirubin 3.2 H (0.2-1.3) mg/dL AST 71 H (17-59) U/L ALT 19 L (21-72) U/L Alkaline Phosphatase 152 H (38-126) U/L Total Protein 8.0 (6.3-8.2) g/dL Albumin 3.5 (3.5-5.0) g/dL Amylase 60 (30-110) U/L Lipase 402 H (23-300) U/L Serum Alcohol 171 mg/dL Disposition Clinical Impression: Abdominal pain, Alcohol abuse Disposition: HOME SELF-CARE Condition: Stable Instructions: Abdominal Pain (ED), Abuse of Alcohol (ED) Additional Instructions: Discontinue alcohol. Please follow-up with primary care physician and gastroenterology in the next couple days for recheck. Return for change or worsening symptoms or other concerns. Referrals: iTmmy Guevara MD [Primary Care Provider] - 1-2 days Time of Disposition: 08:48
[2017-07-31] MEDS ORDERED: FAMOTIDINE 20 MG/2 ML VIAL IV STA (08:48)
[2017-07-31 09:02] VITALS: BP 118/60; TEMP 97.9
== END 2017-07-31 09:00 | disposition home or self-care (01) ==
LOC: EC 06:29
DX: F10.10 Alcohol abuse, uncomplicated (principal); R10.9 Unspecified abdominal pain; F17.200 Nicotine dependence, unspecified, uncomplicated; Z79.899 Other long term (current) drug therapy; Z86.14 Personal history of Methicillin resistant Staphylococcus aureus infection; Z90.49 Acquired absence of other specified parts of digestive tract; Z53.20 Procedure and treatment not carried out because of patient's decision for unspecified reasons
CPT/HCPCS: 36415; 74018; 80053; 80320; 82150; 83690; 85027; 99284

== ENCOUNTER 2017-08-06 08:36 | Observation (INO) | payer OTHER ==
[2017-08-06] MEDS ORDERED: SODIUM CHLORIDE 0.9% 1,000 ML IV STA (09:00)
[2017-08-06] MEDS ORDERED: ONDANSETRON 4 MG/2 ML VIAL IVP STA (09:10)
[2017-08-06] MEDS ORDERED: KETOROLAC 30 MG/ML 1 ML VIAL IVP STA (09:10)
--- NOTE | 2017-08-06 09:46 | ED ---
Abdominal Pain HPI - General Chief Complaint: Abdominal Pain Stated Complaint: pancreatitis Time Seen by Provider: 08/06/17 09:00 Source: patient, RN notes reviewed Mode of arrival: ambulatory Limitations: no limitations - History of Present Illness Initial Comments: 42-year-old male presents emergency Department chief complaint abdominal pain. Patient states his pain started while at work around 4 AM. Patient states that he feels that his pancreas is inflamed. 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 Patient states that he has not had a beer in over 3 weeks. Patient denies any diarrhea or constipation he does admit to some nausea and episode of vomiting. Noted dysuria no hematuria denies any chest pain or shortness breath no fevers no chills. - Related Data Home Medications Medication Instructions Recorded Confirmed Multivitamin [Multivitamins Adult 2 tab PO DAILY 07/25/17 08/06/17 Gummies] Potassium 99 mg PO DAILY 07/25/17 08/06/17 Previous Rx's Medication Instructions Recorded Thiamine [Vitamin B-1] 100 mg PO DAILY #30 tablet 06/02/17 Folic Acid 1 mg PO DAILY #30 tablet 07/30/17 Allergies Allergy/AdvReac Type Severity Reaction Status Date / Time No Known Allergies Allergy Verified 08/06/17 09:08 Review of Systems ROS Statement: Those systems with pertinent positive or pertinent negative responses have been documented in the HPI. ROS Other: All systems not noted in ROS Statement are negative. Past Medical History Past Medical History: Asthma, Liver Disease, Pneumonia Additional Past Medical History / Comment(s): ETOH abuse, liver cirrhosis, abdominal ascities, pancreatitis, gallstones, pneumonia, nephrolithiasis, chronic anemia. History of Any Multi-Drug Resistant Organisms: MRSA Date of last positivie culture/infection: 12/09/2013 MDRO Source:: Right First Finger Past Surgical History: Appendectomy, Cholecystectomy, Orthopedic Surgery Additional Past Surgical History / Comment(s): Paracentesis at [facility] about 6 months ago, right hand tendon repair, right knee arthroscopy, cystoscopy for kidney stone removal. Past Anesthesia/Blood Transfusion Reactions: No Reported Reaction Past Psychological History: PTSD Smoking Status: Current every day smoker Past Alcohol Use History: Daily Past Drug Use History: Marijuana - Past Family History Mother Family Medical History: Hypertension Father Additional Family Medical History / Comment(s): Prostate issues. Brain aneurism. General Exam Limitations: no limitations General appearance: alert, in no apparent distress Head exam: Present: atraumatic, normocephalic, normal inspection Eye exam: Present: normal appearance, PERRL, EOMI. Absent: scleral icterus, conjunctival injection, periorbital swelling Respiratory exam: Present: normal lung sounds bilaterally. Absent: respiratory distress, wheezes, rales, rhonchi, stridor Cardiovascular Exam: Present: regular rate, normal rhythm, normal heart sounds. Absent: systolic murmur, diastolic murmur, rubs, gallop, clicks GI/Abdominal exam: Present: soft, tenderness (Diffuse abdominal greatest in the mid abdomen), normal bowel sounds. Absent: distended, guarding, rebound, rigid Back exam: Absent: CVA tenderness (R), CVA tenderness (L) Skin exam: Present: warm, dry, intact, normal color. Absent: rash Course Vital Signs 08/06/17 08:52 Temperature 99.1 F Pulse Rate 75 Respiratory 16 Rate Blood Pressure 119/56 O2 Sat by Pulse 99 Oximetry Medical Decision Making - Lab Data Result diagrams: 08/06/17 09:30 08/06/17 09:30 Lab Results 08/06/17 08/06/17 08/06/17 Range/Units 09:30 09:30 09:30 WBC 7.4 (3.8-10.6) k/uL RBC 2.56 L (4.30-5.90) m/uL Hgb 8.9 L (13.0-17.5) gm/dL Hct 26.3 L (39.0-53.0) % MCV 102.8 H (80.0-100.0) fL MCH 34.6 (25.0-35.0) pg MCHC 33.7 (31.0-37.0) g/dL RDW 16.4 H (11.5-15.5) % Plt Count 99 L (150-450) k/uL Neutrophils % 58 % Lymphocytes % 24 % Monocytes % 9 % Eosinophils % 5 % Basophils % 1 % Neutrophils # 4.3 (1.3-7.7) k/uL Lymphocytes # 1.8 (1.0-4.8) k/uL Monocytes # 0.6 (0-1.0) k/uL Eosinophils # 0.4 (0-0.7) k/uL Basophils # 0.1 (0-0.2) k/uL Manual Slide Review Performed Toxic Granulation Present Poikilocytosis (manual Present Anisocytosis Slight Macrocytosis Moderate Sodium 142 (137-145) mmol/L Potassium 3.0 L* (3.5-5.1) mmol/L Chloride 109 H (98-107) mmol/L Carbon Dioxide 22 (22-30) mmol/L Anion Gap 11 mmol/L BUN 8 L (9-20) mg/dL Creatinine 0.65 L (0.66-1.25) mg/dL Est GFR (CKD-EPI)AfAm >90 (>60 ml/min/1.73 sqM) Est GFR (CKD-EPI)NonAf >90 (>60 ml/min/1.73 sqM) Glucose 79 (74-99) mg/dL Plasma Lactic Acid Balaji (0.7-2.0) mmol/L Calcium 9.1 (8.4-10.2) mg/dL Total Bilirubin 4.0 H (0.2-1.3) mg/dL AST 79 H (17-59) U/L ALT 25 (21-72) U/L Alkaline Phosphatase 149 H (38-126) U/L Total Protein 7.8 (6.3-8.2) g/dL Albumin 3.5 (3.5-5.0) g/dL Amylase 68 (30-110) U/L Lipase 954 H (23-300) U/L Urine Color Yellow Urine Appearance Clear (Clear) Urine pH 7.0 (5.0-8.0) Ur Specific Concepcion 1.015 (1.001-1.035) Urine Protein Trace H (Negative) Urine Glucose (UA) Negative (Negative) Urine Ketones Negative (Negative) Urine Blood Moderate H (Negative) Urine Nitrite Negative (Negative) Urine Bilirubin 1+ H (Negative) Urine Urobilinogen >12.0 (<2.0) mg/dL Ur Leukocyte Esterase Trace H (Negative) Urine RBC 132 H (0-5) /hpf Urine WBC 9 H (0-5) /hpf Urine Bacteria Rare H (None) /hpf Urine Mucus Rare H (None) /hpf Serum Alcohol <10 mg/dL 08/06/17 Range/Units 09:30 WBC (3.8-10.6) k/uL RBC (4.30-5.90) m/uL Hgb (13.0-17.5) gm/dL Hct (39.0-53.0) % MCV (80.0-100.0) fL MCH (25.0-35.0) pg MCHC (31.0-37.0) g/dL RDW (11.5-15.5) % Plt Count (150-450) k/uL Neutrophils % % Lymphocytes % % Monocytes % % Eosinophils % % Basophils % % Neutrophils # (1.3-7.7) k/uL Lymphocytes # (1.0-4.8) k/uL Monocytes # (0-1.0) k/uL Eosinophils # (0-0.7) k/uL Basophils # (0-0.2) k/uL Manual Slide Review Toxic Granulation Poikilocytosis (manual Anisocytosis Macrocytosis Sodium (137-145) mmol/L Potassium (3.5-5.1) mmol/L Chloride (98-107) mmol/L Carbon Dioxide (22-30) mmol/L Anion Gap mmol/L BUN (9-20) mg/dL Creatinine (0.66-1.25) mg/dL Est GFR (CKD-EPI)AfAm (>60 ml/min/1.73 sqM) Est GFR (CKD-EPI)NonAf (>60 ml/min/1.73 sqM) Glucose (74-99) mg/dL Plasma Lactic Acid Balaji 1.4 (0.7-2.0) mmol/L Calcium (8.4-10.2) mg/dL Total Bilirubin (0.2-1.3) mg/dL AST (17-59) U/L ALT (21-72) U/L Alkaline Phosphatase (38-126) U/L Total Protein (6.3-8.2) g/dL Albumin (3.5-5.0) g/dL Amylase (30-110) U/L Lipase (23-300) U/L Urine Color Urine Appearance (Clear) Urine pH (5.0-8.0) Ur Specific Concepcion (1.001-1.035) Urine Protein (Negative) Urine Glucose (UA) (Negative) Urine Ketones (Negative) Urine Blood (Negative) Urine Nitrite (Negative) Urine Bilirubin (Negative) Urine Urobilinogen (<2.0) mg/dL Ur Leukocyte Esterase (Negative) Urine RBC (0-5) /hpf Urine WBC (0-5) /hpf Urine Bacteria (None) /hpf Urine Mucus (None) /hpf Serum Alcohol mg/dL Disposition Clinical Impression: Pancreatitis, acute, Liver disease due to alcohol, Dehydration, Kidney stones, Hematuria, Anemia, Hypokalemia Disposition: ADMITTED IP TO THIS HOSP Referrals: Timmy Guevara MD [Primary Care Provider] - 1-2 days
[2017-08-06 09:47] LABS: Anisocytosis Slight; Appearance,Urine Clear (Clear); Bacteria,Urine Rare /hpf; Basophils # (A) 0.1 k/uL (0-0.2); Basophils % (A) 1 %; Bilirubin,Urine 1+ (Negative); Blood,Urine Moderate (Negative); Color,Urine Yellow; Eosinophils # (A) 0.4 k/uL (0-0.7); Eosinophils % (A) 5 %; Glucose,Urine (UA) Negative (Negative); HCT 26.3 % (39.0-53.0); HGB 8.9 gm/dL (13.0-17.5); Ketones,Urine Negative (Negative); Leukocyte Esterase,Urine Trace (Negative); Lymphocytes # (A) 1.8 k/uL (1.0-4.8); Lymphocytes % (A) 24 %; MCH 34.6 pg (25.0-35.0); MCHC 33.7 g/dL (31.0-37.0); MCV 102.8 fL (80.0-100.0); Macrocytosis Moderate; Mean Platelet Volume 9.5; Monocytes # (A) 0.6 k/uL (0-1.0); Monocytes % (A) 9 %; Mucus,Urine Rare /hpf; Neutrophils # (A) 4.3 k/uL (1.3-7.7); Neutrophils % (A) 58 %; Nitrite,Urine Negative (Negative); Protein,Urine Trace (Negative); RBC 2.56 m/uL (4.30-5.90); RBC,Urine 132 /hpf (0-5); RDW 16.4 % (11.5-15.5); Specific Gravity,Urine 1.015 (1.001-1.035); Urobilinogen,Urine >12.0 mg/dL (<2.0); WBC 7.4 k/uL (3.8-10.6); WBC,Urine 9 /hpf (0-5)
[2017-08-06 09:50] LABS: ALT 25 U/L (21-72); AST 79 U/L (17-59); Albumin 3.5 g/dL (3.5-5.0); Alcohol <10 mg/dL; Alkaline Phosphatase 149 U/L (38-126); Amylase 68 U/L (30-110); Anion Gap 11 mmol/L; Blood Urea Nitrogen 8 mg/dL (9-20); Calcium 9.1 mg/dL (8.4-10.2); Carbon Dioxide 22 mmol/L (22-30); Chloride 109 mmol/L (98-107); Glucose 79 mg/dL (74-99); Lipase 954 U/L (23-300); Sodium 142 mmol/L (137-145); Total Protein 7.8 g/dL (6.3-8.2)
--- NOTE | 2017-08-06 09:53 | XR ---
EXAMINATION TYPE: XR KUB DATE OF EXAM: 08/06/2017 COMPARISON: NONE HISTORY: Pain TECHNIQUE: Single supine KUB image of the abdomen is obtained FINDINGS: Small bowel demonstrates no evidence for dilatation or air fluid levels. Gas and fecal material is seen in non-distended colon. No convincing evidence for pneumoperitoneum. No unusual calcifications. The lung bases are clear. The osseous structures are intact. IMPRESSION: 1. Overall nonobstructive bowel gas pattern.
[2017-08-06 09:57] LABS: Platelet Count 99 k/uL (150-450)
[2017-08-06 09:58] LABS: Poikilocytosis (M) Present; Toxic Granulation Present
[2017-08-06] MEDS ORDERED: MORPHINE SULFATE 4 MG/ML SYRINGE IVP STA (10:09)
[2017-08-06] MEDS ORDERED: POTASSIUM CHLORIDE ER 20 MEQ TAB.ER PO STA (10:22)
[2017-08-06] MEDS ORDERED: ONDANSETRON 4 MG/2 ML VIAL IVP PRN (10:23)
[2017-08-06] MEDS ORDERED: NALOXONE 0.4 MG/ML 1 ML VIAL IV PRN (10:23)
[2017-08-06] MEDS: MORPHINE SULFATE/PF 10MG/10ML VL IV PRN ×4 (10:57→23:46)
[2017-08-06] MEDS: SODIUM CHLORIDE 0.9% 1,000 ML IV SCH ×2 (11:00→23:47)
[2017-08-06 11:17] LABS: INR 1.7 (<1.2); Prothrombin Time 15.5 sec (9.0-12.0)
[2017-08-06] MEDS: NICOTINE 21MG/24HR PATCH TRANSDERM SCH (18:34)
--- NOTE | 2017-08-06 18:47 | HP ---
HISTORY AND PHYSICAL DATE OF SERVICE: 08/06/2017 CHIEF COMPLAINT: Abdominal pain. BRIEF HISTORY: This is a 42-year-old male patient with a past medical history significant for history of liver cirrhosis, asthma, ETOH abuse, abdominal ascites, who presented to the ED with a complaint of abdominal pain. Patient claims it started a few hours prior to coming to the hospital while the patient was at work. Patient claims that he feels that his pancreas is inflamed. He claims he has not had any drink for over 3 weeks. 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 Patient claims that he had a cholecystectomy done a few weeks ago in this hospital and did not have any further complications after that until this bout of pancreatitis. PAST MEDICAL HISTORY: 1. History of asthma. 2. Liver cirrhosis. 3. ETOH abuse. 4. Ascites. 5. Pneumonia. 6. Nephrolithiasis. 7. Chronic anemia. PAST SURGICAL HISTORY: 1. Recent cholecystectomy. 2. Surgical repair of right first finger. 3. Appendectomy. 4. Paracentesis about 6 months ago. PSYCHOLOGICAL HISTORY: Patient has post-traumatic stress disorder. SOCIAL HISTORY: Patient smokes every day about a pack a day. Claims that he quit drinking 3 weeks ago. He uses marijuana. FAMILY HISTORY: Significant for hypertension in mother and history of prostatic cancer and brain aneurysm in father. ALLERGIES: NO KNOWN DRUG ALLERGIES. MEDICATIONS: 1. Thiamine 100 mg daily. 2. Folic acid 1 mg daily. 3. Multivitamins 2 tablets daily. 4. Potassium 99 mEq daily. REVIEW OF SYSTEMS: CONSTITUTIONAL: Patient denies fever and chills. HEENT: No vision or hearing loss. RESPIRATORY: Patient denies shortness of breath or wheezing. No history of cough. CARDIOVASCULAR: Denies chest pain. No palpitations. ABDOMEN/GI: As per HPI. GENITOURINARY: Denies hematuria and dysuria. MUSCULOSKELETAL/EXTREMITIES: Denies muscle or joint deformities. NEUROLOGICAL EXAMINATION: Patient denies dizziness. No vision or speech changes. SKIN: Denies pigmentation or rashes. Rest of 14-point review of systems is unremarkable. PHYSICAL EXAMINATION: GENERAL: Patient palpation CV: No chest pain. No respiratory or patient denies shortness of breath or cough. CARDIOVASCULAR: Chest pain. No palpitations. GI/abdomen: As per HPI. GENITOURINARY: Denies hematuria, hematuria and dysuria. Musculoskeletal/extremities denies muscle or joint deformities. Neurological examination the patient denies dizziness. No vision or speech changes. Skin denies pigmentation or rashes. Rest of 14-point review of system is unremarkable. PHYSICAL EXAMINATION: GENERAL: Patient is awake, alert and oriented, sitting up in bed. Claims he is in severe pain and morphine is not helping. HEENT: Atraumatic, normocephalic. Pupils equal and reactive to light. Extraocular movements intact. Buccal mucosa is moist. NECK: Supple. No goiter or lymphadenopathy. JVD is negative. No carotid bruit heard. Lungs are clear to auscultate. No rales, rhonchi, wheezes. Heart is regular rate and rhythm without murmurs, gallop rhythm. ABDOMEN: Soft. Mild diffuse tenderness, greatest in the mid epigastric area. Bowel sounds are positive. EXTREMITIES: No edema, clubbing, cyanosis. Skin is warm, dry, intact. NEUROLOGICAL EXAMINATION: Cranial nerves 2-12 grossly intact. No gross motor or sensory deficit. VITAL SIGNS: Temperature 99.1, pulse 74, respirations 18, blood pressure 119/56, oxygen saturation 99%. LABS: CBC: White blood count 7.4, hemoglobin 8.9, hematocrit 26.3, platelet count of 99. Chemical profile: Sodium 142, potassium 3.2, chloride 109, bicarb 22, BUN 8, creatinine 0.65, glucose of 79. Patient's lipase is 954, AST of 79. ALT is normal. Total bilirubin of 4.0. ASSESSMENT: 1. Acute pancreatitis. 2. Obstructive jaundice. 3. Dehydration. 4. Nephrolithiasis. 5. Hypokalemia. PLAN: To admit patient to general medical floor. Start patient on IV fluids. Keep patient n.p.o. Pain management with IV morphine. Start patient on IV Pepcid. Monitor liver enzymes and amylase and lipase. Will consult GI. Further recommendations after patient is seen by GI. MMODL / IJN: [id number] /
[2017-08-07] MEDS: MORPHINE SULFATE/PF 10MG/10ML VL IV PRN ×2 (03:59→08:05)
[2017-08-07] MEDS: NICOTINE 21MG/24HR PATCH TRANSDERM SCH (08:06)
[2017-08-07 08:07] LABS: Anisocytosis Slight; Basophils # (A) 0.1 k/uL (0-0.2); Basophils % (A) 1 %; Eosinophils # (A) 0.3 k/uL (0-0.7); Eosinophils % (A) 4 %; HCT 26.7 % (39.0-53.0); HGB 8.7 gm/dL (13.0-17.5); Lymphocytes # (A) 1.7 k/uL (1.0-4.8); Lymphocytes % (A) 23 %; MCH 34.6 pg (25.0-35.0); MCHC 32.6 g/dL (31.0-37.0); MCV 106.2 fL (80.0-100.0); Macrocytosis Moderate; Mean Platelet Volume 9.6; Monocytes # (A) 0.5 k/uL (0-1.0); Monocytes % (A) 7 %; Neutrophils # (A) 4.5 k/uL (1.3-7.7); Neutrophils % (A) 61 %; RBC 2.52 m/uL (4.30-5.90); RDW 16.4 % (11.5-15.5); WBC 7.4 k/uL (3.8-10.6)
[2017-08-07 08:14] LABS: ALT 23 U/L (21-72); AST 65 U/L (17-59); Albumin 2.9 g/dL (3.5-5.0); Alkaline Phosphatase 96 U/L (38-126); Anion Gap 10 mmol/L; Bilirubin, Delta 1.4 mg/dL (0.0-0.2); Bilirubin,Unconjugated 3.3 mg/dL (0.0-1.1); Blood Urea Nitrogen 5 mg/dL (9-20); Calcium 8.3 mg/dL (8.4-10.2); Carbon Dioxide 21 mmol/L (22-30); Chloride 112 mmol/L (98-107); Glucose 78 mg/dL (74-99); Lipase 269 U/L (23-300); Potassium 3.3 mmol/L (3.5-5.1); Sodium 143 mmol/L (137-145); Total Bilirubin 4.7 mg/dL (0.2-1.3); Total Protein 6.9 g/dL (6.3-8.2)
[2017-08-07 08:17] LABS: Platelet Count 98 k/uL (150-450)
[2017-08-07] MEDS: SODIUM CHLORIDE 0.9% 1,000 ML IV SCH (10:27)
--- NOTE | 2017-08-07 11:34 | US ---
EXAMINATION TYPE: US abdomen limited DATE OF EXAM: 08/07/2017 COMPARISON: CT & US CLINICAL HISTORY: abd distension r/o ascites. ABD distention, assess for ascites Scant amount of ascites RUQ and Right flank IMPRESSION: SMALL AMOUNT OF ASCITES.
--- NOTE | 2017-08-07 12:06 | CONS ---
CONSULTATION DATE OF SERVICE: August 07, 2017. REQUESTING PHYSICIAN: Dr. Guevara. REASON FOR CONSULTATION: Abdominal pain, acute pancreatitis. HISTORY OF PRESENT ILLNESS: The patient is a 42-year-old white male with history of heavy alcohol abuse, admitted to the hospital with abdominal pain radiating to the back for the last 2 days duration. He was diagnosed with alcoholic cirrhosis of the liver approximately a year ago. Today he states that the pain is better. He feels abdomen is distended. He denies any nausea, vomiting. He is on a clear liquid diet, tolerating well and wants to advance his diet today. He was hospitalized a few weeks ago with acute pancreatitis and had a gallbladder surgery at that time because of symptomatic gallstones. PAST MEDICAL HISTORY: Significant for cirrhosis of the liver diagnosed a year ago, history of asthma. PAST SURGICAL HISTORY: Cholecystectomy, right finger surgery and appendectomy. MEDICATIONS: At home include thiamine, folic acid, multivitamin, potassium. ALLERGIES: None. SOCIAL HISTORY: Chronic smoker. Heavy alcohol use which he quit about 3 weeks ago. FAMILY HISTORY: Unremarkable. REVIEW OF SYSTEMS: Cardiopulmonary no chest pain, shortness of breath. Genitourinary: No dysuria or hematuria. Musculoskeletal unremarkable. Skin unremarkable. Endocrine unremarkable. Psychiatric unremarkable. Neurology unremarkable. ENT/Vision: Unremarkable. Constitutional no recent weight loss. No fever, chills, night sweats. PHYSICAL EXAMINATION: He appears comfortable. No apparent distress. VITAL SIGNS: Stable. Blood pressure is 131/74, pulse rate 64, temperature 97.8. HEENT examination: Unremarkable. Conjunctivae pink. Sclerae anicteric. Oral cavity no lesions. Neck no jugular venous distention or lymph node enlargement. Chest clear to auscultation. HEART: Regular rate and rhythm. ABDOMEN: Soft, it was slightly distended. Bowel sounds are positive. There was no free fluid. Extremities: No pedal edema. Skin no rashes. NEUROLOGIC: Alert and oriented x3. No focal deficits. LAB: WBC 7.4, hemoglobin 8.7, platelets are 98,000. PT/INR is 1.7 T-bilirubin is 4.7, AST 65, ALT 23, alkaline phosphatase 96, lipase was 954 yesterday and today is 269. Amylase is normal. IMPRESSION: 1. The patient with history of heavy alcohol abuse, history of cirrhosis of the liver diagnosed 1 year ago requiring a paracentesis for ascites at that time, now presents to the hospital with abdominal pain, abdominal distention and was noted to have mild elevation of amylase and lipase consistent with acute pancreatitis. Status post gallbladder surgery for symptomatic gallstones three weeks ago. Clinically, he is improving today. Abdominal pain has resolved. However, he is complaining of some abdominal distention. Rule out mild ascites. 2. Elevated LFTs all consistent with alcoholic liver disease with a component of acute alcoholic hepatitis. 3. Mild anemia and thrombocytopenia related to possibly portal hypertension from cirrhosis of the liver. RECOMMENDATIONS: 1. Advance to full liquid diet. 2. Ultrasound of the abdomen to evaluate for ascites. 3. Continue with symptomatic supportive care. 4. Abstinence from alcohol and we will follow the patient closely during his hospital stay. Thank you for this consultation. SANTOS / JANICE: [id number] /
--- NOTE | 2017-08-07 16:12 | PN ---
PROGRESS NOTE DATE OF SERVICE: 08/07/2017 Patient continues to complain of severe abdominal pain. Claims that he feels hi abdomen is distended and the pain is pretty much the same as when he came to the hospital. His vital signs: Temperature of 97.4, pulse 64, respirations 16, blood pressure 131/74, O2 saturation 97%. HEENT: Atraumatic, normocephalic. Pupils equal and react to light. Extraocular movements intact. Buccal mucosa is fair. Neck is supple. No goiter, lymphadenopathy. JVD is negative. No carotid bruit heard. Lungs are clear to auscultate. No rales, rhonchi, or wheezes. Heart is regular rate and rhythm without any murmurs, gallop, rhythm. Abdomen is soft, slightly distended. Bowel sounds are positive. No fluid thrill. No tenderness. Patient does have voluntary guarding. EXTREMITIES: No pedal edema. Pulses are palpable. NEUROLOGICAL EXAMINATION: Cranial nerves 2 through 12 grossly intact. Patient is awake, alert, oriented x3. LABS: CBC, white blood count of 7.4, hemoglobin 8.7, platelet count of 98. INR of 1.7 and total bilirubin 4.7, AST 65, ALT 23, alkaline phosphate is 96, lipase has improved from 954 to 269. Amylase is normal. ASSESSMENT: 1. Acute pancreatitis in patient with a history of alcohol abuse and liver cirrhosis. Patient is status post gallbladder surgery for symptomatic gallstones about 3 weeks ago. Ultrasound of abdomen is done which shows mild ascites. 2. Elevated LFTs consistent with alcoholic liver disease with a component of acute alcoholic hepatitis. 3. Mild anemia and thrombocytopenia secondary to portal hypertension secondary to liver cirrhosis. 4. Dehydration. 5. Nephrolithiasis. 6. Hypokalemia which is resolved. GI consultation is noted and appreciated. Patient is started on a full liquid diet. Continue with supportive care. Patient is advised to abstain from alcohol. Continue current management. Further recommendations after GI reviews abdominal ultrasound. MMODL / IJN: [id number] /
[2017-08-07] MEDS: KETOROLAC 30 MG/ML 1 ML VIAL IVP PRN (22:16)
[2017-08-08] MEDS: KETOROLAC 30 MG/ML 1 ML VIAL IVP PRN ×2 (04:45→11:00)
[2017-08-08] MEDS: NICOTINE 21MG/24HR PATCH TRANSDERM SCH (07:15)
[2017-08-08 07:48] VITALS: BP 127/63; PULSE 63; RESP 18; TEMP 97.2
--- NOTE | 2017-08-08 12:46 | PN ---
PROGRESS NOTE DATE OF SERVICE: August 08, 2017 Patient is a 42-year-old white male with history of chronic alcohol abuse, history of cirrhosis of the liver, admitted to the hospital with abdominal pain and elevated amylase and lipase consistent with acute pancreatitis. He still continues to have epigastric discomfort on a low-fiber diet, tolerating well, requesting pain medications very frequently. PHYSICAL EXAMINATION: He appears comfortable. No apparent distress. VITAL SIGNS: Stable. Blood pressure 132/86, pulse rate is 72, temperature 99. HEENT examination unremarkable. Conjunctivae pink. Sclerae anicteric. Oral cavity no lesions. Neck no jugular venous distention or lymph node enlargement. Chest was clear to auscultation. Heart rate regular rate and rhythm. Abdomen, soft, slight distention noted. No free fluid noted. Extremities no pedal edema. Skin no rashes. NEUROLOGIC: Alert and oriented times three. No focal deficits. LAB: From today not done. Ultrasound of the abdomen showed small amount of ascites. IMPRESSION: 1. Acute pancreatitis probably related to alcohol use, resolved. 2. Alcoholic liver disease with cirrhosis/portal hypertension and mild ascites. 3. Chronic epigastric pain. The patient may have a component of chronic pancreatitis. RECOMMENDATIONS: 1. Advance diet as tolerated. 2. Pain medications as needed. 3. The patient will be discharged home with outpatient follow up in 2-3 weeks. MMODL / IJN: [id number] /
--- NOTE | 2017-08-08 15:58 | DS ---
DISCHARGE SUMMARY DATE OF SERVICE: 08/08/2017. ADMISSION DIAGNOSES: 1. Acute pancreatitis, obstructive jaundice secondary to ETOH induced liver disease. 2. Dehydration. 3. Nephrolithiasis. 4. Hypokalemia. DISCHARGE DIAGNOSES: 1. Acute pancreatitis in patient with history of alcohol abuse and liver cirrhosis, status post cholecystectomy. 2. Elevated LFTs secondary to alcohol liver disease with acute alcoholic hepatitis. 3. Mild anemia, thrombocytopenia secondary to portal hypertension due to liver cirrhosis. BRIEF HOSPITAL COURSE: This was a 42-year-old male patient with a past history of liver cirrhosis, alcohol abuse who presented to the ED with a complaint of abdominal pain which started a few hours prior to coming to the hospital. The patient related upon presentation that he had not had any alcohol for over 3 weeks. PAST MEDICAL HISTORY: 1. Asthma. 2. Alcoholic cirrhosis. 3. ETOH abuse. 4. Ascites. 5. Nephrolithiasis. 6. Chronic anemia. BRIEF HOSPITAL COURSE: Patient was admitted to general medical floor and was started on IV fluids, IV Pepcid. Pain control was done with IV morphine. Lipase was trended. On next day of admission lipase was improved, but patient continued to complain of intractable severe pain. Abdominal ultrasound was done which showed minimal ascites. Gastroenterology consultation was done. The patient was recommended to continue all current medications without any specific treatment. The patient pain symptoms did improve. Did tolerate diet. He was then discharged home in a stable condition. Vital signs the patient's. EXAMINATION: At the time of discharge, patient is awake, alert, oriented, no acute distress. Vital signs: Temperature 97.2, pulse 63, respiration 18, blood pressure 127/63. HEENT: Atraumatic, normocephalic. Pupils equal and reactive to light. Extraocular movements intact. Buccal mucosa fair. NECK: Supple. No goiter, lymphadenopathy. JVD is negative. No carotid bruit heard. Lungs are clear to auscultate. No rales, rhonchi, wheezes. Heart is regular rate and rhythm without any murmurs gallop rhythm. ABDOMEN: Soft, distended. Bowel sounds positive. EXTREMITIES: No edema. MEDICATIONS: At time of discharge: 1. Nicotine patch as used in the hospital. 2. Tramadol 50 mg q.6 hours. 3. Folic acid 1 mg daily. 4. Multivitamins 1 daily. 5. Potassium 1 tablet daily. 6. Thiamine 100 mg daily. The patient was recommended follow up with the primary care physician and with Gastroenterology as an outpatient for further recommendations. MMODL / IJN: [id number] /
== END 2017-08-08 15:00 | disposition home or self-care (01) ==
LOC: EC 08:36 → 5MS5E 11:31 → INTOOBSV 11:31 → UNDODISIN 08-08 15:00
PROVIDERS: ADMIT Hospitalist; ATTEND Hospitalist
DX: K85.20 Alcohol induced acute pancreatitis without necrosis or infection (principal); E86.0 Dehydration; E87.6 Hypokalemia; K70.31 Alcoholic cirrhosis of liver with ascites; F10.10 Alcohol abuse, uncomplicated; K83.1 Obstruction of bile duct; D69.59 Other secondary thrombocytopenia; K70.11 Alcoholic hepatitis with ascites; D64.9 Anemia, unspecified; K76.6 Portal hypertension; J45.909 Unspecified asthma, uncomplicated; G89.29 Other chronic pain; R10.13 Epigastric pain; Z87.01 Personal history of pneumonia (recurrent); F43.10 Post-traumatic stress disorder, unspecified; F17.210 Nicotine dependence, cigarettes, uncomplicated; Z82.49 Family history of ischemic heart disease and other diseases of the circulatory system; Z90.49 Acquired absence of other specified parts of digestive tract; Z80.42 Family history of malignant neoplasm of prostate; Z86.79 Personal history of other diseases of the circulatory system; Z79.899 Other long term (current) drug therapy; Z86.14 Personal history of Methicillin resistant Staphylococcus aureus infection; Z87.442 Personal history of urinary calculi; Y90.0 Blood alcohol level of less than 20 mg/100 ml
CPT/HCPCS: 96376 ×3; 96361 ×3; 96374; 96375; 99285; 36415; 80053; 80048; 80076; 82150; 83605; 83690 ×2; 85025 ×2; 85610; 85730; 81001; 80320; 74018; 76705; G0378 ×3; S4990 ×3; J2405; J1885 ×3; J2270 ×2

== ENCOUNTER 2017-08-17 02:47 | Emergency (ER) | payer OTHER ==
[2017-08-17] MEDS ORDERED: PANTOPRAZOLE 40 MG/10 ML VIAL IVP STA (03:00)
[2017-08-17] MEDS ORDERED: SODIUM CHLORIDE 0.9% 1,000 ML IV STA (03:00)
[2017-08-17 03:12] LABS: Anisocytosis Slight; Basophils # (A) 0.1 k/uL (0-0.2); Basophils % (A) 1 %; Eosinophils # (A) 0.4 k/uL (0-0.7); Eosinophils % (A) 4 %; HCT 27.7 % (39.0-53.0); HGB 9.1 gm/dL (13.0-17.5); Lymphocytes % (A) 22 %; MCH 34.4 pg (25.0-35.0); MCV 104.4 fL (80.0-100.0); Macrocytosis Moderate; Mean Platelet Volume 8.3; Monocytes # (A) 0.7 k/uL (0-1.0); Monocytes % (A) 8 %; Neutrophils # (A) 5.7 k/uL (1.3-7.7); Neutrophils % (A) 61 %; Platelet Count 105 k/uL (150-450); RBC 2.65 m/uL (4.30-5.90); RDW 16.3 % (11.5-15.5); WBC 9.3 k/uL (3.8-10.6)
--- NOTE | 2017-08-17 03:14 | ED ---
General Adult HPI - General Source: patient Mode of arrival: EMS Limitations: no limitations <Allison Wise - Last Filed: 08/17/17 04:23> <Sabino De La Fuente - Last Filed: 08/17/17 06:50> - General Chief complaint: GI Bleed Stated complaint: Abd pain Time Seen by Provider: 08/17/17 02:54 - History of Present Illness Initial comments: 42-year-old male patient with a past medical history significant for alcohol abuse, cirrhosis of the liver, and pancreatitis presents to the emergency department today for evaluation of right-sided abdominal pain. Patient states he has also had a couple episodes of vomiting, 1 episode contained presence of a large amount of bright red blood. Patient denies any history of hematemesis. Patient states that he has drank six 12 ounce beers today. States his last drink was at 9 PM. he denies any chest pain, shortness of breath, constipation, diarrhea, hematochezia, or melena. Denies any use of street drugs. Patient denies any recent rash, fever, chills, back pain, numbness, tingling, dizziness , weakness, hematuria, dysuria, urinary urgency, urinary frequency, headache, visual changes, or any other complaints. (Allison Wise) - Related Data Home Medications Medication Instructions Recorded Confirmed Multivitamin [Multivitamins Adult 2 tab PO DAILY 07/25/17 08/17/17 Gummies] Potassium 99 mg PO DAILY 07/25/17 08/17/17 Previous Rx's Medication Instructions Recorded Thiamine [Vitamin B-1] 100 mg PO DAILY #30 tablet 06/02/17 Folic Acid 1 mg PO DAILY #30 tablet 07/30/17 Nicotine 21Mg/24Hr Patch [Habitrol] 1 patch TRANSDERM DAILY #7 patch 08/08/17 Allergies Allergy/AdvReac Type Severity Reaction Status Date / Time No Known Allergies Allergy Verified 08/17/17 02:54 Review of Systems ROS Other: All systems not noted in ROS Statement are negative. <Allison Wise - Last Filed: 08/17/17 04:23> ROS Other: All systems not noted in ROS Statement are negative. <Sabino De La Fuente - Last Filed: 08/17/17 06:50> ROS Statement: Those systems with pertinent positive or pertinent negative responses have been documented in the HPI. Past Medical History Past Medical History: Asthma, Liver Disease, Pneumonia Additional Past Medical History / Comment(s): ETOH abuse, liver cirrhosis, abdominal ascities, pancreatitis, multiple gallstones, nephrolithiasis, chronic anemia, resent hemoccult positive stool. History of Any Multi-Drug Resistant Organisms: MRSA Date of last positivie culture/infection: 12/09/2013 MDRO Source:: Right First Finger Past Surgical History: Appendectomy, Cholecystectomy, Orthopedic Surgery Additional Past Surgical History / Comment(s): 07/09/17 EGD/colonoscopy, paracentesis at [facility] several months ago, right hand tendon repair, right knee arthroscopy, cystoscopy for kidney stone removal. Past Anesthesia/Blood Transfusion Reactions: No Reported Reaction Past Psychological History: PTSD Smoking Status: Current every day smoker Past Alcohol Use History: Daily Past Drug Use History: Marijuana - Past Family History Mother Family Medical History: Hypertension Father Additional Family Medical History / Comment(s): Prostate issues. Brain aneurism. <Allison Wise - Last Filed: 08/17/17 04:23> General Exam Limitations: no limitations General appearance: alert, in no apparent distress, other (social well-developed , well-nourished adult male patient in no acute distress. Vital signs upon presentation are temperature 97.5F, pulse 86, respirations 18, blood pressure 135/69, pulse ox 99% on room air.) Eye exam: Present: normal appearance, PERRL, EOMI. Absent: scleral icterus, conjunctival injection, periorbital swelling ENT exam: Present: normal exam, normal oropharynx, mucous membranes moist Respiratory exam: Present: normal lung sounds bilaterally. Absent: respiratory distress, wheezes, rales, rhonchi, stridor Cardiovascular Exam: Present: regular rate, normal rhythm, normal heart sounds. Absent: systolic murmur, diastolic murmur, rubs, gallop, clicks GI/Abdominal exam: Present: soft, tenderness (midepigastric, right upper quadrant, right lower quadrant tenderness.), normal bowel sounds. Absent: distended, guarding, rebound, rigid Neurological exam: Present: alert, oriented X3, CN II-XII intact Psychiatric exam: Present: normal affect, normal mood Skin exam: Present: warm, dry, intact, normal color. Absent: rash <Allison Wise - Last Filed: 08/17/17 04:23> Course <Allison Wise - Last Filed: 08/17/17 04:23> <Sabino De La Fuente - Last Filed: 08/17/17 06:50> Vital Signs 08/17/17 08/17/17 08/17/17 02:49 03:15 03:58 Temperature 97.5 F L Pulse Rate 86 73 77 Respiratory 18 19 19 Rate Blood Pressure 135/69 122/61 135/69 O2 Sat by Pulse 99 96 99 Oximetry 08/17/17 08/17/17 05:00 06:15 Temperature Pulse Rate 88 78 Respiratory 16 19 Rate Blood Pressure 110/66 112/53 O2 Sat by Pulse 96 96 Oximetry - Reevaluation(s) Reevaluation #1: 08/17/17 04:23 Care has been handed over to Dr. De La Fuente who will follow patient until disposition. (Allison Wise) EKG Findings - EKG Comments: EKG Findings:: EKG obtained at shows normal sinus rhythm with a prolonged QT interval. Ventricular rate is 84, DC interval is 126, QRS duration is 104, QTC 414, QTC 489. No evidence of ST elevation or depression. <Allison Wise - Last Filed: 08/17/17 04:23> Medical Decision Making - Lab Data Result diagrams: 08/17/17 02:50 08/17/17 02:50 <Allison Wise - Last Filed: 08/17/17 04:23> - Lab Data Result diagrams: 08/17/17 02:50 08/17/17 02:50 <Sabino De La Fuente - Last Filed: 08/17/17 06:50> - Lab Data Lab Results 08/17/17 08/17/17 08/17/17 Range/Units 02:50 02:50 02:50 WBC 9.3 (3.8-10.6) k/uL RBC 2.65 L (4.30-5.90) m/uL Hgb 9.1 L (13.0-17.5) gm/dL Hct 27.7 L (39.0-53.0) % MCV 104.4 H (80.0-100.0) fL MCH 34.4 (25.0-35.0) pg MCHC 33.0 (31.0-37.0) g/dL RDW 16.3 H (11.5-15.5) % Plt Count 105 L (150-450) k/uL Neutrophils % 61 % Lymphocytes % 22 % Monocytes % 8 % Eosinophils % 4 % Basophils % 1 % Neutrophils # 5.7 (1.3-7.7) k/uL Lymphocytes # 2.0 (1.0-4.8) k/uL Monocytes # 0.7 (0-1.0) k/uL Eosinophils # 0.4 (0-0.7) k/uL Basophils # 0.1 (0-0.2) k/uL Anisocytosis Slight Macrocytosis Moderate PT 14.6 H (9.0-12.0) sec INR 1.6 H (<1.2) APTT 27.6 (22.0-30.0) sec Sodium 144 (137-145) mmol/L Potassium 3.1 L (3.5-5.1) mmol/L Chloride 110 H (98-107) mmol/L Carbon Dioxide 18 L (22-30) mmol/L Anion Gap 16 mmol/L BUN 5 L (9-20) mg/dL Creatinine 0.50 L (0.66-1.25) mg/dL Est GFR (CKD-EPI)AfAm >90 (>60 ml/min/1.73 sqM) Est GFR (CKD-EPI)NonAf >90 (>60 ml/min/1.73 sqM) Glucose 95 (74-99) mg/dL Calcium 8.7 (8.4-10.2) mg/dL Total Bilirubin 2.5 H (0.2-1.3) mg/dL AST 90 H (17-59) U/L ALT 26 (21-72) U/L Alkaline Phosphatase 142 H (38-126) U/L Total Protein 7.9 (6.3-8.2) g/dL Albumin 3.3 L (3.5-5.0) g/dL Amylase 80 (30-110) U/L Lipase 634 H (23-300) U/L Disposition <Allison Wise - Last Filed: 08/17/17 04:23> <Sabino De La Fuente - Last Filed: 04/03/18 06:50> Clinical Impression: Abdominal pain, Hypokalemia, Anemia Disposition: HOME SELF-CARE Condition: Fair Instructions: Abdominal Pain (ED), Hypokalemia (ED) Additional Instructions: Do not drink any alcohol. Referrals: Timmy Guevara MD [Primary Care Provider] - 1-2 days
[2017-08-17 03:18] LABS: INR 1.6 (<1.2); Partial Thromboplastin Time 27.6 sec (22.0-30.0); Prothrombin Time 14.6 sec (9.0-12.0)
[2017-08-17 03:20] LABS: ALT 26 U/L (21-72); AST 90 U/L (17-59); Albumin 3.3 g/dL (3.5-5.0); Alkaline Phosphatase 142 U/L (38-126); Amylase 80 U/L (30-110); Anion Gap 16 mmol/L; Blood Urea Nitrogen 5 mg/dL (9-20); Calcium 8.7 mg/dL (8.4-10.2); Carbon Dioxide 18 mmol/L (22-30); Chloride 110 mmol/L (98-107); Glucose 95 mg/dL (74-99); Lipase 634 U/L (23-300); Potassium 3.1 mmol/L (3.5-5.1); Sodium 144 mmol/L (137-145); Total Bilirubin 2.5 mg/dL (0.2-1.3); Total Protein 7.9 g/dL (6.3-8.2)
[2017-08-17] MEDS ORDERED: SODIUM CHLORIDE 0.9% 500 ML IV ONE (03:38)
--- NOTE | 2017-08-17 03:39 | XR ---
EXAM: XR Chest, 2 Views CLINICAL HISTORY: ITS.REASON XR Reason: pain TECHNIQUE: Frontal and lateral views of the chest. COMPARISON: Chest x-ray dated 03/02/2017. FINDINGS: Lungs: Unremarkable. The lungs are clear. Pleural space: Unremarkable. No pneumothorax. Heart: Unremarkable. No cardiomegaly. Mediastinum: Unremarkable. Bones/joints: Unremarkable. IMPRESSION: Normal chest x-rays.
--- NOTE | 2017-08-17 03:41 | XR ---
EXAM: XR Abdomen, 1 View CLINICAL HISTORY: ITS.REASON XR Reason: Pain TECHNIQUE: Frontal supine view of the abdomen/pelvis. COMPARISON: CT dated 07/05/2017. FINDINGS: Intraperitoneal space: No evidence of free air. Surgical clips in the right midabdomen. Gastrointestinal tract: Unremarkable. No dilation. Bones/joints: Unremarkable. IMPRESSION: No acute findings.
[2017-08-17 06:43] VITALS: BP 112/53; PULSE 78; RESP 19
[2017-08-17] MEDS ORDERED: POTASSIUM CHLORIDE ER 20 MEQ TAB.ER PO STA (06:49)
[2017-08-17 07:04] VITALS: TEMP 97.7
== END 2017-08-17 07:04 | disposition home or self-care (01) ==
LOC: EC 02:47
DX: R10.13 Epigastric pain (principal); R10.11 Right upper quadrant pain; R10.31 Right lower quadrant pain; E87.6 Hypokalemia; E86.0 Dehydration; R11.10 Vomiting, unspecified; F17.200 Nicotine dependence, unspecified, uncomplicated; Z86.14 Personal history of Methicillin resistant Staphylococcus aureus infection; Z90.49 Acquired absence of other specified parts of digestive tract; Z79.899 Other long term (current) drug therapy
CPT/HCPCS: 99284; 96374; 96361; 36415; 93005; 80053; 82150; 83690; 85025; 85610; 85730; 71046; 74018; C9113

== ENCOUNTER 2017-09-01 22:12 | Observation (INO) | payer OTHER ==
[2017-09-01] MEDS ORDERED: SODIUM CHLORIDE 0.9% 1,000 ML IV STA ×2 (23:00→23:01)
[2017-09-01] MEDS ORDERED: PANTOPRAZOLE 40 MG/10 ML VIAL IVP STA (23:03)
--- NOTE | 2017-09-01 23:07 | ED ---
General Adult HPI - General Chief complaint: Recheck/Abnormal Lab/Rx Stated complaint: overdose Time Seen by Provider: 09/01/17 22:50 Source: patient, EMS Mode of arrival: EMS Limitations: no limitations - History of Present Illness Initial comments: This 42-year-old white male presents via EMS for possible overdose. He apparently had 20 pills of Ativan filled yesterday. These were 1 mg pills. The bottle is empty today. He apparently told EMS that he took 10 Ativan at approximately 3 PM today. Per EMS, his roommates found him passed out in the bathroom. He apparently was having some hematuria as well. He denied any suicidal complaints or depression. He does drink regularly. He had an alcohol breath test of 123 upon arrival. He states that he did not drink today but did drink yesterday. He is a very poor historian and quite unreliable. He is slurring his speech and difficult to understand. He currently is complaining of some pain into his right abdomen and right flank which essentially has been present for one year. He states that he does have a long history of kidney stones. He also relates that he has a history of liver problems due to excessive alcohol intake. He denies any fevers or chills. He denies any nausea or vomiting. History is limited. No other complaints or modifying factors. He denies taking any extra Ativan to myself but did tell EMS that he took extra Ativan. He denies utilizing any street drugs to myself. - Related Data Home Medications Medication Instructions Recorded Confirmed Ferrous Sulfate [Feosol] 325 mg PO DAILY@1200 09/01/17 09/01/17 Folic Acid 1 mg PO DAILY@1200 09/01/17 09/01/17 LORazepam [Ativan] 1 mg PO TID PRN 09/01/17 09/01/17 Allergies Allergy/AdvReac Type Severity Reaction Status Date / Time No Known Allergies Allergy Verified 09/01/17 22:14 Review of Systems ROS Statement: Those systems with pertinent positive or pertinent negative responses have been documented in the HPI. ROS Other: All systems not noted in ROS Statement are negative. Past Medical History Past Medical History: Asthma, Liver Disease, Pneumonia Additional Past Medical History / Comment(s): ETOH abuse, liver cirrhosis, abdominal ascities, pancreatitis, multiple gallstones, nephrolithiasis, chronic anemia, resent hemoccult positive stool. History of Any Multi-Drug Resistant Organisms: MRSA Date of last positivie culture/infection: 12/09/2013 MDRO Source:: Right First Finger Past Surgical History: Appendectomy, Cholecystectomy, Orthopedic Surgery Additional Past Surgical History / Comment(s): 07/09/17 EGD/colonoscopy, paracentesis at [facility] several months ago, right hand tendon repair, right knee arthroscopy, cystoscopy for kidney stone removal. Past Anesthesia/Blood Transfusion Reactions: No Reported Reaction Past Psychological History: PTSD Smoking Status: Current every day smoker Past Alcohol Use History: Daily Past Drug Use History: Marijuana - Past Family History Mother Family Medical History: Hypertension Father Additional Family Medical History / Comment(s): Prostate issues. Brain aneurism. General Exam - General Exam Comments Initial Comments: GENERAL: The patient is well nourished and well hydrated. VITAL SIGNS: Heart rate, blood pressure, respiratory rate reviewed as recorded in nurse's notes. EYES: Pupils are round and reactive. Extraocular movements are intact. No conjunctival / lid redness or swelling. ENT: No external evidence of injury, swelling, or ecchymosis. Airway is patent. Throat is clear. NECK: Nontender. No swelling or evidence of injury. No subcutaneous emphysema. Trachea is midline. No thyroid mass. HEART: Regular rate and rhythm. Good peripheral pulses. LUNGS/CHEST: Breath sounds clear and equal bilaterally. No rales, rhonchi, or wheezes. No ecchymosis, subcutaneous emphysema, or tenderness. ABDOMEN: There is tenderness noted to the right upper abdomen and flank region. No palpable masses or organomegaly. No peritoneal signs. No abdominal wall swelling or ecchymosis. EXTREMITIES: No extremity tenderness. Normal muscle tone and function. No thoracolumbar tenderness. NEUROLOGIC: Sensation is grossly intact. Cranial nerve exam reveals face is symmetrical, tongue is midline. Speech is very slurred and it is difficult to understand him at times. SKIN: No abrasions or ecchymosis is noted. No induration or masses noted. PSYCHIATRIC: Patient is sleeping but will wake up and answer questions. He appears intoxicated. Limitations: no limitations Course Vital Signs 09/01/17 09/01/17 22:14 22:45 Temperature 98.5 F Pulse Rate 78 Pulse Rate [ 71 Excel Developer ] Respiratory 18 Rate Blood Pressure 126/63 O2 Sat by Pulse 98 Oximetry Medical Decision Making - Medical Decision Making The patient was seen and examined. All diagnostics were reviewed. An IV is established and he is hydrated. He does receive some Protonix intravenously. He is counseled regarding his alcohol use/abuse. The EKG shows a normal sinus rhythm at a rate of 74. There is no acute ST-T wave changes identified. The GA is duration is 88 and the QTC intervals 444. The patient is placed on a color television console monitor no ectopy is identified. He had a laboratory analysis which does show an elevation of the bilirubin, lipase, and alcohol level. His drug screen is positive for benzodiazepines and cocaine. He is mildly anemic. He also is hypernatremic and hyperchloremic. His CO2 is decreased consistent with dehydration. He had a computed tomography scan of the abdomen and pelvis which does show some bilateral renal stones which are nonobstructing. There is some ascites noted as well. Please see report for full details. On recheck, he is still is obtunded, and it is felt as though he would benefit from admission for further treatment. It is felt as though he will need continued monitoring due to the overdose, continued IV fluids due to the dehydration as well as hypernatremia. He is counseled regarding drug and alcohol abuse. The case is discussed with internal medicine and they're agreeable to admission. - Lab Data Result diagrams: 09/01/17 22:37 09/01/17 22:37 Lab Results 09/01/17 09/01/17 09/01/17 Range/Units 22:37 22:37 22:37 WBC 6.3 (3.8-10.6) k/uL RBC 3.71 L (4.30-5.90) m/uL Hgb 12.9 L D (13.0-17.5) gm/dL Hct 39.2 (39.0-53.0) % MCV 105.6 H (80.0-100.0) fL MCH 34.8 (25.0-35.0) pg MCHC 33.0 (31.0-37.0) g/dL RDW 16.0 H (11.5-15.5) % Plt Count 100 L (150-450) k/uL Neutrophils % 64 % Lymphocytes % 22 % Monocytes % 5 % Eosinophils % 5 % Basophils % 1 % Neutrophils # 4.0 (1.3-7.7) k/uL Lymphocytes # 1.4 (1.0-4.8) k/uL Monocytes # 0.3 (0-1.0) k/uL Eosinophils # 0.3 (0-0.7) k/uL Basophils # 0.1 (0-0.2) k/uL Anisocytosis Slight Macrocytosis Moderate PT 13.8 H (9.0-12.0) sec INR 1.5 H (<1.2) APTT 28.3 (22.0-30.0) sec Sodium 152 H (137-145) mmol/L Potassium 4.0 (3.5-5.1) mmol/L Chloride 115 H (98-107) mmol/L Carbon Dioxide 19 L (22-30) mmol/L Anion Gap 18 mmol/L BUN 8 L (9-20) mg/dL Creatinine 0.60 L (0.66-1.25) mg/dL Est GFR (CKD-EPI)AfAm >90 (>60 ml/min/1.73 sqM) Est GFR (CKD-EPI)NonAf >90 (>60 ml/min/1.73 sqM) Glucose 107 H (74-99) mg/dL Calcium 9.4 (8.4-10.2) mg/dL Total Bilirubin 2.7 H (0.2-1.3) mg/dL AST 89 H (17-59) U/L ALT 24 (21-72) U/L Alkaline Phosphatase 155 H (38-126) U/L Total Protein 8.9 H (6.3-8.2) g/dL Albumin 4.1 (3.5-5.0) g/dL Amylase 95 (30-110) U/L Lipase 599 H (23-300) U/L Urine Color Urine Appearance (Clear) Urine pH (5.0-8.0) Ur Specific Bryan (1.001-1.035) Urine Protein (Negative) Urine Glucose (UA) (Negative) Urine Ketones (Negative) Urine Blood (Negative) Urine Nitrite (Negative) Urine Bilirubin (Negative) Urine Urobilinogen (<2.0) mg/dL Ur Leukocyte Esterase (Negative) Urine RBC (0-5) /hpf Urine WBC (0-5) /hpf Urine Mucus (None) /hpf Salicylates <1.0 mg/dL Urine Opiates Screen (NotDetected) Ur Oxycodone Screen (NotDetected) Urine Methadone Screen (NotDetected) Ur Propoxyphene Screen (NotDetected) Acetaminophen <10.0 ug/mL Ur Barbiturates Screen (NotDetected) U Tricyclic Antidepress (NotDetected) Ur Phencyclidine Scrn (NotDetected) Ur Amphetamines Screen (NotDetected) U Methamphetamines Scrn (NotDetected) U Benzodiazepines Scrn (NotDetected) Urine Cocaine Screen (NotDetected) U Marijuana (THC) Screen (NotDetected) Serum Alcohol 183 mg/dL 09/01/17 Range/Units 23:49 WBC (3.8-10.6) k/uL RBC (4.30-5.90) m/uL Hgb (13.0-17.5) gm/dL Hct (39.0-53.0) % MCV (80.0-100.0) fL MCH (25.0-35.0) pg MCHC (31.0-37.0) g/dL RDW (11.5-15.5) % Plt Count (150-450) k/uL Neutrophils % % Lymphocytes % % Monocytes % % Eosinophils % % Basophils % % Neutrophils # (1.3-7.7) k/uL Lymphocytes # (1.0-4.8) k/uL Monocytes # (0-1.0) k/uL Eosinophils # (0-0.7) k/uL Basophils # (0-0.2) k/uL Anisocytosis Macrocytosis PT (9.0-12.0) sec INR (<1.2) APTT (22.0-30.0) sec Sodium (137-145) mmol/L Potassium (3.5-5.1) mmol/L Chloride (98-107) mmol/L Carbon Dioxide (22-30) mmol/L Anion Gap mmol/L BUN (9-20) mg/dL Creatinine (0.66-1.25) mg/dL Est GFR (CKD-EPI)AfAm (>60 ml/min/1.73 sqM) Est GFR (CKD-EPI)NonAf (>60 ml/min/1.73 sqM) Glucose (74-99) mg/dL Calcium (8.4-10.2) mg/dL Total Bilirubin (0.2-1.3) mg/dL AST (17-59) U/L ALT (21-72) U/L Alkaline Phosphatase (38-126) U/L Total Protein (6.3-8.2) g/dL Albumin (3.5-5.0) g/dL Amylase (30-110) U/L Lipase (23-300) U/L Urine Color Yellow Urine Appearance Clear (Clear) Urine pH 6.5 (5.0-8.0) Ur Specific Bryan 1.008 (1.001-1.035) Urine Protein Negative (Negative) Urine Glucose (UA) Negative (Negative) Urine Ketones Negative (Negative) Urine Blood Small H (Negative) Urine Nitrite Negative (Negative) Urine Bilirubin Negative (Negative) Urine Urobilinogen 3.0 (<2.0) mg/dL Ur Leukocyte Esterase Negative (Negative) Urine RBC 10 H (0-5) /hpf Urine WBC 2 (0-5) /hpf Urine Mucus Rare H (None) /hpf Salicylates mg/dL Urine Opiates Screen Not Detected (NotDetected) Ur Oxycodone Screen Not Detected (NotDetected) Urine Methadone Screen Not Detected (NotDetected) Ur Propoxyphene Screen Not Detected (NotDetected) Acetaminophen ug/mL Ur Barbiturates Screen Not Detected (NotDetected) U Tricyclic Antidepress Not Detected (NotDetected) Ur Phencyclidine Scrn Not Detected (NotDetected) Ur Amphetamines Screen Not Detected (NotDetected) U Methamphetamines Scrn Not Detected (NotDetected) U Benzodiazepines Scrn Detected H (NotDetected) Urine Cocaine Screen Detected H (NotDetected) U Marijuana (THC) Screen Not Detected (NotDetected) Serum Alcohol mg/dL Disposition Clinical Impression: Overdose, Alcohol intoxication, Alcohol abuse, Hematuria, Mental status change , Abdominal pain, Hypernatremia, Hyperchloremia, Elevated bilirubin, Dehydration , Cocaine abuse, Ascites, Polysubstance abuse, Anemia Disposition: ADMITTED IP TO THIS [facility] Condition: Fair Is patient prescribed a controlled substance at discharge?: No Referrals: Timmy Guevara MD [Primary Care Provider] - 1-2 days Time of Disposition: 00:26 Decision Date: 09/02/17 Decision Time: 00:26
[2017-09-01 23:14] LABS: Anisocytosis Slight; Basophils # (A) 0.1 k/uL (0-0.2); Basophils % (A) 1 %; Eosinophils # (A) 0.3 k/uL (0-0.7); Eosinophils % (A) 5 %; HCT 39.2 % (39.0-53.0); Lymphocytes # (A) 1.4 k/uL (1.0-4.8); Lymphocytes % (A) 22 %; MCH 34.8 pg (25.0-35.0); MCV 105.6 fL (80.0-100.0); Macrocytosis Moderate; Mean Platelet Volume 8.2; Monocytes # (A) 0.3 k/uL (0-1.0); Monocytes % (A) 5 %; Neutrophils % (A) 64 %; Platelet Count 100 k/uL (150-450); RBC 3.71 m/uL (4.30-5.90); WBC 6.3 k/uL (3.8-10.6)
[2017-09-01 23:22] LABS: HGB 12.9 gm/dL (13.0-17.5)
[2017-09-01 23:24] LABS: INR 1.5 (<1.2); Partial Thromboplastin Time 28.3 sec (22.0-30.0); Prothrombin Time 13.8 sec (9.0-12.0)
[2017-09-01 23:25] LABS: ALT 24 U/L (21-72); AST 89 U/L (17-59); Acetaminophen <10.0 ug/mL; Albumin 4.1 g/dL (3.5-5.0); Alkaline Phosphatase 155 U/L (38-126); Amylase 95 U/L (30-110); Anion Gap 18 mmol/L; Blood Urea Nitrogen 8 mg/dL (9-20); Calcium 9.4 mg/dL (8.4-10.2); Carbon Dioxide 19 mmol/L (22-30); Chloride 115 mmol/L (98-107); Glucose 107 mg/dL (74-99); Lipase 599 U/L (23-300); Salicylate <1.0 mg/dL; Sodium 152 mmol/L (137-145); Total Bilirubin 2.7 mg/dL (0.2-1.3); Total Protein 8.9 g/dL (6.3-8.2)
[2017-09-01 23:39] LABS: Alcohol 183 mg/dL
--- NOTE | 2017-09-01 23:40 | CT ---
EXAMINATION TYPE: CT abdomen pelvis wo con DATE OF EXAM: 09/01/2017 COMPARISON: 07/05/2017 HISTORY: Right Flank Pain/hematuria CT DLP: 534.30 mGycm Automated exposure control for dose reduction was used. TECHNIQUE: Helical acquisition of images was performed from the lung bases through the pelvis. FINDINGS: There is mild subsegmental atelectasis at the lung bases. Heart appears enlarged. There is no pericar dial effusion. There is no pleural effusion. Liver shows no focal defect. There are clips from cholec ystectomy. There is no evidence of a splenic mass. Spleen is enlarged and measures 15 cm. There is no evidence of pancreatic mass. Bile ducts are not dilated. There is no adrenal mass. There are small calculi in both kidneys. There is no evidence of a renal ma ss. Ureters are not dilated. There is no hydronephrosis. There is ascites mild fluid throughout the a bdomen. There is no evidence of a bowel obstruction. Bladder distends smoothly. I see no bony destruc tive process. There is no sign of free air. IMPRESSION: NONOBSTRUCTING SMALL BILATERAL RENAL CALCULI. THERE IS ABDOMINAL ASCITES FLUID THAT IS SIMILAR TO OLD EXAM. NO DILATED DUCTS. SPLENOMEGALY. CAUSE FOR THE ASCITES IS NOT EVIDENT. THERE IS SOME PATCHY ATE LECTASIS AT THE LUNG BASES THAT IS IMPROVED SLIGHTLY COMPARED TO OLD EXAM. THERE IS CLEARING OF THE M ILD SUBCUTANEOUS EDEMA OVER THE ANTERIOR ABDOMEN COMPARED TO OLD EXAM.
[2017-09-02 00:06] LABS: Appearance,Urine Clear (Clear); Bilirubin,Urine Negative (Negative); Blood,Urine Small (Negative); Color,Urine Yellow; Glucose,Urine (UA) Negative (Negative); Ketones,Urine Negative (Negative); Leukocyte Esterase,Urine Negative (Negative); Mucus,Urine Rare /hpf; Nitrite,Urine Negative (Negative); PH, Urine 6.5 (5.0-8.0); Protein,Urine Negative (Negative); RBC,Urine 10 /hpf (0-5); Specific Gravity,Urine 1.008 (1.001-1.035); WBC,Urine 2 /hpf (0-5)
[2017-09-02 00:15] LABS: Amphetamine Screen,Urine Not Detected (NotDetected); Barbiturate Screen,Urine Not Detected (NotDetected); Benzodiazepines Screen,Urine Detected (NotDetected); Cocaine Screen,Urine Detected (NotDetected); Methadone Screen, Urine Not Detected (NotDetected); Opiate Screen,Urine Not Detected (NotDetected); Oxycodone Screen, Urine Not Detected (NotDetected); Phencyclidine Screen,Urine Not Detected (NotDetected); Tricyclic Antidepressant,Urine Not Detected (NotDetected); Urn Cannabinoid Scrn Not Detected (NotDetected)
[2017-09-02] MEDS ORDERED: NALOXONE 0.4 MG/ML 1 ML VIAL IV PRN (00:27)
[2017-09-02] MEDS ORDERED: ONDANSETRON 4 MG/2 ML VIAL IVP PRN (00:27)
[2017-09-02] MEDS ORDERED: ACETAMINOPHEN TAB 325 MG TAB PO PRN (00:27)
[2017-09-02 03:06] VITALS: BMI 22.4
[2017-09-02] MEDS: KETOROLAC 30 MG/ML 1 ML VIAL IVP PRN ×3 (03:47→17:45)
[2017-09-02] MEDS: ENOXAPARIN 40 MG/0.4 ML SYRINGE SQ SCH (08:43)
[2017-09-02] MEDS ORDERED: PANTOPRAZOLE 40 MG/10 ML VIAL IV SCH (09:00)
[2017-09-02 10:08] LABS: Anisocytosis Slight; Basophils # (A) 0.1 k/uL (0-0.2); Basophils % (A) 1 %; Eosinophils # (A) 0.3 k/uL (0-0.7); Eosinophils % (A) 6 %; HCT 25.7 % (39.0-53.0); Hypochromasia Moderate; Lymphocytes # (A) 1.3 k/uL (1.0-4.8); Lymphocytes % (A) 25 %; MCH 33.2 pg (25.0-35.0); MCHC 30.4 g/dL (31.0-37.0); MCV 109.2 fL (80.0-100.0); Macrocytosis Marked; Mean Platelet Volume 8.5; Monocytes # (A) 0.5 k/uL (0-1.0); Monocytes % (A) 9 %; Neutrophils # (A) 2.9 k/uL (1.3-7.7); Neutrophils % (A) 57 %; RBC 2.36 m/uL (4.30-5.90); WBC 5.2 k/uL (3.8-10.6)
[2017-09-02 10:23] LABS: ALT 19 U/L (21-72); AST 70 U/L (17-59); Albumin 2.9 g/dL (3.5-5.0); Alkaline Phosphatase 111 U/L (38-126); Anion Gap 13 mmol/L; Blood Urea Nitrogen 8 mg/dL (9-20); Calcium 8.4 mg/dL (8.4-10.2); Carbon Dioxide 17 mmol/L (22-30); Chloride 114 mmol/L (98-107); Glucose 86 mg/dL (74-99); HGB 7.8 gm/dL (13.0-17.5); Potassium 3.9 mmol/L (3.5-5.1); Sodium 144 mmol/L (137-145); Total Bilirubin 2.3 mg/dL (0.2-1.3); Total Protein 6.8 g/dL (6.3-8.2)
[2017-09-02 11:06] LABS: Platelet Count 72 k/uL (150-450)
[2017-09-02 11:07] LABS: Poikilocytosis (M) Present
[2017-09-02] MEDS: FOLIC ACID 1 MG TAB PO SCH (11:51)
[2017-09-02] MEDS: FERROUS SULFATE 325 MG TAB PO SCH (11:51)
--- NOTE | 2017-09-02 14:50 | P.CN ---
Psychiatric Consult - . Consult date: 09/02/17 Consult:: 09/02/17 14:32 Patient was seen for a psychiatry consult regarding recent overdose and frequent drug use. Vision said he was having bad stomachache from pancreatitis , his metallurgical or materials technician referred him to a pain doctor and he is not yet to see the pain doctor. He said he could not handle the pain and so he started to drink and also took some Ativans. He insists that he did not try to kill himself. 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 He has no desire to kill himself and just wants to get rid of the pain. Lab tests ultrasound of the abdomen results are suggestive of probable cirrhosis with portal hypertension and enlarged spleen, ascites, macrocytic hypochromic anemia, pancreatitis etc. Most of these appear to be the consequences of chronic excessive alcohol intake which patient readily admits. UDS is positive for benzodiazepines and cocaine. Serum alcohol level was 183 and lipase level was 599. Patient has been in and out of this hospital on several occasions for alcohol/drug related problems. He is not interested in going through rehab or stopping alcohol or using drugs. This is a white male who was seen lying down in his bed. He has a few visible contusions and abrasions on his left upper eyelid left eyebrow right arm right elbow etc. He does not show any psychomotor agitation or retardation. His speech is spontaneous and goal-directed. His mood is dull and affect is somewhat constricted in range. He denies hallucinations and delusional thinking. He insists that he is not suicidal or homicidal and this whole incident was only accidental.He is oriented with adequate memory concentration etc. His insight is adequate but judgment is impaired as evidenced by continued alcohol and drug abuse. Assessment: Alcohol use disorder severe F 10.20. Cocaine use disorder moderate to severe F 14.20. Probable cirrhosis of the liver with portal hypertension, enlarged spleen, hepatic insufficiency and ascites. Pancreatitis. Alcohol-induced macrocytic hypochromic anemia. Thrombocytopenia. Patient insists that it was an accident and not a suicide attempt and I don't have any reason to believe that it was a suicide attempt. Suggestion: He does not need a sitter. You can refer him to rehab but I strongly believe he will not entertain this idea. He can be discharged when medically cleared.
[2017-09-02 17:30] LABS: Basophils # (A) 0.1 k/uL (0-0.2); Basophils % (A) 1 %; Eosinophils # (A) 0.3 k/uL (0-0.7); Eosinophils % (A) 5 %; HGB 8.4 gm/dL (13.0-17.5); Lymphocytes # (A) 1.1 k/uL (1.0-4.8); Lymphocytes % (A) 20 %; MCH 34.3 pg (25.0-35.0); MCHC 32.4 g/dL (31.0-37.0); Macrocytosis Moderate; Mean Platelet Volume 8.8; Monocytes # (A) 0.5 k/uL (0-1.0); Monocytes % (A) 8 %; Neutrophils # (A) 3.4 k/uL (1.3-7.7); Neutrophils % (A) 63 %; RBC 2.45 m/uL (4.30-5.90); RDW 15.9 % (11.5-15.5); WBC 5.4 k/uL (3.8-10.6)
[2017-09-02 17:42] LABS: Platelet Count 80 k/uL (150-450)
--- NOTE | 2017-09-02 20:54 | HP ---
HISTORY AND PHYSICAL CHIEF COMPLAINTS: Ativan overdose. HISTORY OF PRESENT ILLNESS: This 42-year-old gentleman with a past medical history of multiple medical problems including asthma, history of liver disease, ETOH abuse, liver cirrhosis, abdominal ascites, history of MRSA being followed by Dr. Guevara in the outpatient setting. The patient apparently took several tablets of Ativan and the patient was drowsy. Patient taken to [facility] admitted for further evaluation and treatment. Patient reports is probably an accident and denies any suicidal ideations. The patient also has history of significant EtOH also. There is no history of fever, rigors. No history of headache, loss of consciousness or seizures. PAST MEDICAL HISTORY: Asthma, liver disease, pneumonia, ETOH abuse, liver cirrhosis. MEDICATIONS: Prior to admission include home medications are: 1. Ativan 1 mg t.i.d. p.r.n. 2. Iron sulfate 320 mg daily. 3. Folic acid 1 mg daily. ALLERGIES: None. FAMILY HISTORY: History of hypertension, prostate issues and brain aneurysm. SOCIAL HISTORY: History of alcohol, history of nicotine dependence. REVIEW OF SYSTEMS: ENT: No diminished vision. No diminished hearing. CARDIOVASCULAR: No angina or palpitations. Respiratory: As mentioned earlier. GI no nausea or vomiting. no dysuria. Nervous system: No numbness, weakness. Allergy/Immunology: No asthma or hayfever. Musculoskeletal: As mentioned earlier. Hematology/Oncology: No history of anemia. Endocrine: No history of diabetes or hypothyroidism. Constitutional: As mentioned earlier. Dermatology: Negative. Rheumatology: Negative. PHYSICAL EXAMINATION: The patient is alert and oriented x3. Pulse 82. Blood pressure 120/56, respiration 18, temperature 97.8, pulse ox 99% on room air. HEENT: Conjunctivae normal. Oral mucosa moist. Neck is no jugular venous distention. No carotid bruit. No lymph node enlargement. Cardiovascular system: S1. S2 muffled. No S3, no S4. Respirations: Breath sounds diminished in the bases. A few scattered rhonchi. No crackles. ABDOMEN: Soft, nontender. No mass palpable. Legs no edema and no swelling. NERVOUS SYSTEM: Higher functions as mentioned earlier. Moves all four limbs. No focal motor or sensory deficits. Lymphatics: No lymph nodes palpable in the neck, axillae or groin. SKIN: No ulcer, rash or bleeding. LABS: WBC 5.2, hemoglobin is 8.4, platelets 80. Otherwise, creatinine 0.50. T-Bilirubin is 2.3, AST 70. ASSESSMENT: 1. Status post Ativan overdosage. 2. Positive cocaine. 3. Possible acute alcoholic hepatitis. 4. Acute alcoholic intoxication on admission. 5. Increased AST/ALT. 6. Anemia and thrombocytopenia probably secondary to alcohol intake. 7. History of asthma. History of liver cirrhosis. 8. History of ascites. 9. History of pancreatitis. 10.History of gallstones. 11.History of appendectomy. 12.History of PTSD. 13.FULL CODE. RECOMMENDATIONS AND DISCUSSION: This 42-year-old gentleman who presented with multiple complex medical issues, we will monitor the patient closely continue the current medications, management and symptomatic treatment. Otherwise psychiatric evaluation. I would also recommend manager social media consultation for rehab and other ETOH related issues and home support. Repeat labs ordered. Guarded prognosis because of multiple complex medical issues. Further recommendations to follow. DVT prophylaxis is recommended. See orders for details. We will watch for any alcohol withdrawal symptoms also. Prognosis guarded. Further recommendations to follow. MMODL / IJN: [id number] /
[2017-09-03] MEDS: KETOROLAC 30 MG/ML 1 ML VIAL IVP PRN ×3 (00:13→12:32)
[2017-09-03 07:18] VITALS: RESP 16
[2017-09-03] MEDS ORDERED: PANTOPRAZOLE 40 MG TABLET PO SCH (07:30)
[2017-09-03] MEDS: ENOXAPARIN 40 MG/0.4 ML SYRINGE SQ SCH (08:17)
[2017-09-03 09:04] LABS: HCT 25.4 % (39.0-53.0); HGB 8.2 gm/dL (13.0-17.5); MCH 34.3 pg (25.0-35.0); MCHC 32.1 g/dL (31.0-37.0); MCV 106.8 fL (80.0-100.0); Macrocytosis Marked; Mean Platelet Volume 9.2; RBC 2.38 m/uL (4.30-5.90); RDW 15.9 % (11.5-15.5); WBC 4.4 k/uL (3.8-10.6)
[2017-09-03 09:10] LABS: Platelet Count 85 k/uL (150-450)
[2017-09-03 09:19] LABS: ALT 21 U/L (21-72); AST 56 U/L (17-59); Albumin 2.9 g/dL (3.5-5.0); Alkaline Phosphatase 113 U/L (38-126); Anion Gap 12 mmol/L; Blood Urea Nitrogen 9 mg/dL (9-20); Calcium 8.4 mg/dL (8.4-10.2); Carbon Dioxide 20 mmol/L (22-30); Chloride 109 mmol/L (98-107); Glucose 144 mg/dL (74-99); Potassium 3.2 mmol/L (3.5-5.1); Sodium 141 mmol/L (137-145); Total Bilirubin 3.7 mg/dL (0.2-1.3); Total Protein 6.7 g/dL (6.3-8.2)
[2017-09-03] MEDS: FERROUS SULFATE 325 MG TAB PO SCH (11:03)
[2017-09-03] MEDS: FOLIC ACID 1 MG TAB PO SCH (11:03)
[2017-09-03] MEDS ORDERED: Potassium Replacement Protocol 1 EACH MISC MISCELLANE PRN ×2 (11:12→11:17)
[2017-09-03] MEDS ORDERED: Magnesium Replacement Protocol 1 EACH MISC MISCELLANE PRN ×2 (11:13→12:27)
[2017-09-03 11:22] LABS: Eosinophils # (M) 0.18 k/uL (0-0.7); Lymphocytes # (M) 1.58 k/uL (1.0-4.8); Monocytes # (M) 0.18 k/uL (0-1.0); Neutrophils # (M) 2.46 k/uL (1.3-7.7); Neutrophils % (M) 56 %; Nucleated Red Blood Cells 0 /100 WBC (0-0); Total Cells Counted 100
[2017-09-03 11:23] LABS: RBC Fragments Present; Target Cells Present
[2017-09-03 11:25] LABS: Anisocytosis (M) Present; Poikilocytosis (M) Present
[2017-09-03] MEDS: POTASSIUM CHLORIDE ER 20 MEQ TAB.ER PO SCH ×2 (12:25→13:02)
[2017-09-03] MEDS: MAGNESIUM SULFATE-D5W PMX 1 GM in DEXTROSE/WATER 1 100ML.BAG IVPB SCH ×3 (13:02→15:19)
[2017-09-03 14:33] VITALS: BP 112/63; PULSE 77; TEMP 98.4
--- NOTE | 2017-09-03 20:38 | DS ---
DISCHARGE SUMMARY DATE OF SERVICE: 09/03/2017. FINAL DIAGNOSES: 1. Status post Ativan overdose. 2. Positive cocaine. 3. Possible acute alcohol hepatitis. 4. Acute alcohol intoxication on admission. DISCHARGE DISPOSITION: The patient is being discharged in stable condition with guarded prognosis. HISTORY OF PRESENT ILLNESS: This 42-year-old gentleman with a past medical medical of multiple medical problems, was admitted with ETOH abuse and the patient also had features of anxiety. Psychiatry saw the patient and cleared the patient. The patient improved significantly. PHYSICAL EXAMINATION: On exam, vital signs stable. Cardiovascular: S1, S2 muffled. Abdomen: Soft. Central nervous system: No focal deficits. I would recommend the patient follow up with the [facility] outpatient drug rehab and as well as possibly AA meetings. The patient understands and agrees. DISCHARGE ADVICE AND MEDICATIONS: 1. Diet is cardiac diet. 2. Activity limited until follow up. 3. No ETOH. 4. Follow up with Dr. Guevara as advised. 5. Follow up as advised. MEDICATIONS: Medications are as follows: 1. Iron sulfate 320 mg daily. 2. Folic acid 1 mg daily. 3. Ativan 1 mg t.i.d. p.r.n. 4. Multivitamins 1 p.o. daily. 5. Protonix 40 mg. 6. Thiamine 100 mg p.o. daily. Once again the patient is being discharged in stable condition with guarded prognosis. MMODL / IJN: [id number] / MTDD
== END 2017-09-03 16:38 | disposition home or self-care (01) ==
LOC: EC 22:12 → INTOOBSV 09-02 00:28 → 4MS4W 09-02 00:28 → UNDODISIN 09-03 16:38
PROVIDERS: ADMIT Hospitalist; ATTEND Hospitalist
DX: T42.4X1A Poisoning by benzodiazepines, accidental (unintentional), initial encounter (principal); F10.229 Alcohol dependence with intoxication, unspecified; Y90.6 Blood alcohol level of 120-199 mg/100 ml; F14.20 Cocaine dependence, uncomplicated; J45.909 Unspecified asthma, uncomplicated; D69.6 Thrombocytopenia, unspecified; F43.10 Post-traumatic stress disorder, unspecified; R18.8 Other ascites; K85.90 Acute pancreatitis without necrosis or infection, unspecified; D53.9 Nutritional anemia, unspecified; D50.9 Iron deficiency anemia, unspecified; E86.0 Dehydration; E87.0 Hyperosmolality and hypernatremia; E87.8 Other disorders of electrolyte and fluid balance, not elsewhere classified; F17.200 Nicotine dependence, unspecified, uncomplicated; Z87.442 Personal history of urinary calculi; Z79.899 Other long term (current) drug therapy; Z90.49 Acquired absence of other specified parts of digestive tract; Z86.14 Personal history of Methicillin resistant Staphylococcus aureus infection; Z87.01 Personal history of pneumonia (recurrent); Z82.49 Family history of ischemic heart disease and other diseases of the circulatory system
CPT/HCPCS: 96375 ×2; 96376 ×2; 96361 ×3; 96365; 96366; 96372; 96374; 99285; 36415; 94760; 93005; 80053 ×3; 82150; 83690; 83735; 84132; 85025 ×3; 85610; 85730; 81001; 80306; 83520 ×2; 80320; 74176; G0378 ×2; J1650; J1885 ×2; J3475; C9113 ×2; 99284

== ENCOUNTER 2017-10-03 14:18 | Emergency (ER) | payer OTHER ==
[2017-10-03 14:33] VITALS: RESP 18
[2017-10-03] MEDS ORDERED: KETOROLAC 30 MG/ML 1 ML VIAL IVP STA (15:02)
[2017-10-03] MEDS ORDERED: SODIUM CHLORIDE 0.9% 1,000 ML IV STA ×2 (15:02)
[2017-10-03] MEDS ORDERED: ONDANSETRON 4 MG/2 ML VIAL IVP STA (15:02)
[2017-10-03 15:20] LABS: Basophils # (A) 0.1 k/uL (0-0.2); Basophils % (A) 1 %; Eosinophils # (A) 0.2 k/uL (0-0.7); Eosinophils % (A) 4 %; HCT 27.3 % (39.0-53.0); HGB 8.9 gm/dL (13.0-17.5); Hypochromasia Slight; Lymphocytes # (A) 1.3 k/uL (1.0-4.8); Lymphocytes % (A) 20 %; MCHC 32.6 g/dL (31.0-37.0); MCV 107.5 fL (80.0-100.0); Macrocytosis Marked; Mean Platelet Volume 10.2; Monocytes # (A) 0.8 k/uL (0-1.0); Monocytes % (A) 13 %; Neutrophils # (A) 3.8 k/uL (1.3-7.7); Neutrophils % (A) 59 %; Platelet Count 102 k/uL (150-450); RBC 2.54 m/uL (4.30-5.90); RDW 15.1 % (11.5-15.5); WBC 6.5 k/uL (3.8-10.6)
[2017-10-03 15:24] LABS: Amorphous Sediment,Urine Rare /hpf; Appearance,Urine Cloudy (Clear); Bacteria,Urine Rare /hpf; Bilirubin,Urine 1+ (Negative); Blood,Urine Large (Negative); Color,Urine Dark Brown; Glucose,Urine (UA) Negative (Negative); Hyaline Casts,Urine 271 /lpf (0-2); Ketones,Urine Trace (Negative); Leukocyte Esterase,Urine Small (Negative); Mucus,Urine Few /hpf; Nitrite,Urine Negative (Negative); PH, Urine 5.5 (5.0-8.0); Protein,Urine 1+ (Negative); RBC,Urine >182 /hpf (0-5); Specific Gravity,Urine 1.019 (1.001-1.035); WBC,Urine 17 /hpf (0-5)
[2017-10-03 15:31] LABS: Albumin 3.2 g/dL (3.5-5.0); Amylase 48 U/L (30-110); Anion Gap 10 mmol/L; Calcium 8.9 mg/dL (8.4-10.2); Carbon Dioxide 22 mmol/L (22-30); Chloride 105 mmol/L (98-107); Glucose 124 mg/dL (74-99); Lipase 495 U/L (23-300); Sodium 137 mmol/L (137-145); Total Bilirubin 2.5 mg/dL (0.2-1.3); Total Protein 7.1 g/dL (6.3-8.2)
[2017-10-03 15:33] LABS: ALT 25 U/L (21-72); AST 52 U/L (17-59); Alkaline Phosphatase 76 U/L (38-126); Blood Urea Nitrogen 14 mg/dL (9-20); Potassium 4.5 mmol/L (3.5-5.1)
--- NOTE | 2017-10-03 15:53 | XR ---
EXAMINATION TYPE: XR KUB DATE OF EXAM: 10/03/2017 CLINICAL DATA: 42-year-old male with right-sided abdominal pain, [facility] COMPARISON: 08/17/2017 FINDINGS: Heart mildly enlarged. Strandy atelectasis lung bases. No evidence for free intraperitoneal air. Cholecystectomy clips. No dilated small bowel or differential air-fluid levels. Moderate stool seen in the pelvis. Suboptimal penetration for assessment of subtle calcifications. IMPRESSION: Nonobstructive bowel gas pattern. No free air. Moderate stool in the pelvis. Exam limitations due to the degree of penetration.
[2017-10-03] MEDS ORDERED: TAMSULOSIN 0.4 MG CAP.ER.24H PO STA (15:59)
--- NOTE | 2017-10-03 16:06 | ED ---
Abdominal Pain HPI - General Chief Complaint: Abdominal Pain Stated Complaint: blood in urine Time Seen by Provider: 10/03/17 14:32 Source: patient, RN notes reviewed, old records reviewed Mode of arrival: ambulatory Limitations: no limitations - History of Present Illness Initial Comments: This patient's a 42-year-old male presents emergency Department from [facility] chief complaint of right-sided abdominal pain, and hematuria for the past 2 days. Patient states that he has history of kidney stones. Has history of pancreatitis and cirrhosis. [facility] Patient denies any recent fever , chills, shortness of breath, chest pain, numbness or tingling, dysuria or hematuria, constipation or diarrhea, headaches or visual changes, or any other current symptoms - Related Data Home Medications Medication Instructions Recorded Confirmed Ferrous Sulfate [Iron (65 MG 325 mg PO DAILY@1200 18 09/01/17 Elemental)] Folic Acid 1 mg PO DAILY@1200 09/01/17 09/01/17 LORazepam [Ativan] 1 mg PO TID PRN 09/01/17 09/01/17 Previous Rx's Medication Instructions Recorded Multivitamins, Thera [Multivitamin 1 tab PO DAILY #30 tablet 09/03/17 (formulary)] Pantoprazole [Protonix] 40 mg PO AC-BRKFST #30 tablet. 09/03/17 Thiamine [Vitamin B-1] 100 mg PO DAILY #30 tablet 09/03/17 Furosemide [Lasix] 20 mg PO DAILY #10 tab 10/03/17 Ketorolac [Toradol] 10 mg PO TID #15 tab 10/03/17 Tamsulosin HCl [Flomax] 0.4 mg PO DAILY #10 cap 10/03/17 Allergies Allergy/AdvReac Type Severity Reaction Status Date / Time No Known Allergies Allergy Verified 10/03/17 14:33 Review of Systems ROS Statement: Those systems with pertinent positive or pertinent negative responses have been documented in the HPI. ROS Other: All systems not noted in ROS Statement are negative. Past Medical History Past Medical History: Asthma, Liver Disease, Pneumonia Additional Past Medical History / Comment(s): ETOH abuse, liver cirrhosis, abdominal ascities, pancreatitis, multiple gallstones, nephrolithiasis, chronic anemia, resent hemoccult positive stool. History of Any Multi-Drug Resistant Organisms: MRSA Date of last positivie culture/infection: 12/09/2013 MDRO Source:: Right First Finger Past Surgical History: Appendectomy, Cholecystectomy, Orthopedic Surgery Additional Past Surgical History / Comment(s): 07/09/17 EGD/colonoscopy, paracentesis at [place] several months ago, right hand tendon repair, right knee arthroscopy, cystoscopy for kidney stone removal. Past Anesthesia/Blood Transfusion Reactions: No Reported Reaction Past Psychological History: PTSD Smoking Status: Current every day smoker Past Alcohol Use History: None Reported, Daily Past Drug Use History: None Reported, Heroin, Marijuana - Past Family History Mother Family Medical History: Hypertension Father Additional Family Medical History / Comment(s): Prostate issues. Brain aneurism. General Exam - General Exam Comments Initial Comments: 42-year-old male. Alert and oriented. No acute distress. Limitations: no limitations General appearance: alert, in no apparent distress Head exam: Present: atraumatic, normocephalic, normal inspection Eye exam: Present: normal appearance, PERRL, EOMI. Absent: scleral icterus, conjunctival injection, periorbital swelling ENT exam: Present: normal exam, mucous membranes moist Neck exam: Present: normal inspection Respiratory exam: Present: normal lung sounds bilaterally. Absent: respiratory distress, wheezes, rales, rhonchi, stridor Cardiovascular Exam: Present: regular rate, normal rhythm, normal heart sounds. Absent: systolic murmur, diastolic murmur, rubs, gallop, clicks GI/Abdominal exam: Present: soft, tenderness (Right lower quadrant tenderness and right upper quadrant tenderness noted. Right CVA tenderness.), normal bowel sounds. Absent: distended, guarding, rebound, rigid Extremities exam: Present: normal inspection, full ROM, normal capillary refill. Absent: tenderness, pedal edema, joint swelling, calf tenderness Back exam: Present: normal inspection, CVA tenderness (R) Neurological exam: Present: alert, oriented X3, CN II-XII intact Psychiatric exam: Present: normal affect, normal mood Skin exam: Present: warm, dry, intact, normal color, rash (Patient has a rash bleeding over the lower extremities. 1+ pitting edema.) Course Vital Signs 10/03/17 10/03/17 14:30 16:19 Temperature 97.2 F L Pulse Rate 70 59 L Respiratory 18 18 Rate Blood Pressure 102/51 116/59 O2 Sat by Pulse 99 98 Oximetry - Reevaluation(s) Reevaluation #1: 10/03/17 17:42 Patient is reevaluated this time and is sleeping. Resting comfortably in bed. No signs of distress or discomfort. Medical Decision Making - Medical Decision Making This patient's a 42-year-old male with history of hematuria and abdominal pain and flank pain for the past 2 days. He is currently residing at [facility]. Heme-positive receive any narcotic pain medication. Patient does have bloody urine on exam. Patient is given IV fluids and laboratory obtained. Started with Toradol and Flomax. CT abdomen and pelvis without contrast was completed. There is diffuse and is occur type changes noted. Mild ascites redemonstrated. Liver disease with likely possible etiology with hepatomegaly. At this time patient's labwork was reviewed and shows no significant changes. Pancreas enzymes are stable. Bilirubin is 2.4. This is decreased from some of his previous lab results. His bilateral nonobstructive nephrolithiasis up to 5 mm. Also moderate stool burn noted. It is likely the patient may have passed a stone at this time. Discussed that there is no evidence of any obstructing stones in the ureter or hydroureter noted. Patient's case discussed with Dr. Agrawal. Discussed patient's abdominal pain is likely related to chronic pain. However will treat the patient for kidney stone with Flomax. He also requests a refill of his Lasix medication he's been out of it for a week since being at her facility. The patient on 20 mg of Lasix. - Lab Data Result diagrams: 10/03/17 15:08 10/03/17 15:08 Lab Results 10/03/17 10/03/17 10/03/17 Range/Units 15:08 15:08 15:08 WBC 6.5 (3.8-10.6) k/uL RBC 2.54 L (4.30-5.90) m/uL Hgb 8.9 L (13.0-17.5) gm/dL Hct 27.3 L (39.0-53.0) % MCV 107.5 H (80.0-100.0) fL MCH 35.0 (25.0-35.0) pg MCHC 32.6 (31.0-37.0) g/dL RDW 15.1 (11.5-15.5) % Plt Count 102 L (150-450) k/uL Neutrophils % 59 % Lymphocytes % 20 % Monocytes % 13 % Eosinophils % 4 % Basophils % 1 % Neutrophils # 3.8 (1.3-7.7) k/uL Lymphocytes # 1.3 (1.0-4.8) k/uL Monocytes # 0.8 (0-1.0) k/uL Eosinophils # 0.2 (0-0.7) k/uL Basophils # 0.1 (0-0.2) k/uL Hypochromasia Slight Macrocytosis Marked Sodium 137 (137-145) mmol/L Potassium 4.5 (3.5-5.1) mmol/L Chloride 105 (98-107) mmol/L Carbon Dioxide 22 (22-30) mmol/L Anion Gap 10 mmol/L BUN 14 (9-20) mg/dL Creatinine 0.79 (0.66-1.25) mg/dL Est GFR (CKD-EPI)AfAm >90 (>60 ml/min/1.73 sqM) Est GFR (CKD-EPI)NonAf >90 (>60 ml/min/1.73 sqM) Glucose 124 H (74-99) mg/dL Calcium 8.9 (8.4-10.2) mg/dL Total Bilirubin 2.5 H (0.2-1.3) mg/dL AST 52 (17-59) U/L ALT 25 (21-72) U/L Alkaline Phosphatase 76 (38-126) U/L Troponin I (0.000-0.034) ng/mL Total Protein 7.1 (6.3-8.2) g/dL Albumin 3.2 L (3.5-5.0) g/dL Amylase 48 (30-110) U/L Lipase 495 H (23-300) U/L Urine Color Dark Brown Urine Appearance Cloudy (Clear) Urine pH 5.5 (5.0-8.0) Ur Specific Angie 1.019 (1.001-1.035) Urine Protein 1+ H (Negative) Urine Glucose (UA) Negative (Negative) Urine Ketones Trace H (Negative) Urine Blood Large H (Negative) Urine Nitrite Negative (Negative) Urine Bilirubin 1+ H (Negative) Urine Urobilinogen 4.0 (<2.0) mg/dL Ur Leukocyte Esterase Small H (Negative) Urine RBC >182 H (0-5) /hpf Urine WBC 17 H (0-5) /hpf Amorphous Sediment Rare H (None) /hpf Urine Bacteria Rare H (None) /hpf Hyaline Casts 271 H (0-2) /lpf Urine Mucus Few H (None) /hpf 05//18 Range/Units 15:08 WBC (3.8-10.6) k/uL RBC (4.30-5.90) m/uL Hgb (13.0-17.5) gm/dL Hct (39.0-53.0) % MCV (80.0-100.0) fL MCH (25.0-35.0) pg MCHC (31.0-37.0) g/dL RDW (11.5-15.5) % Plt Count (150-450) k/uL Neutrophils % % Lymphocytes % % Monocytes % % Eosinophils % % Basophils % % Neutrophils # (1.3-7.7) k/uL Lymphocytes # (1.0-4.8) k/uL Monocytes # (0-1.0) k/uL Eosinophils # (0-0.7) k/uL Basophils # (0-0.2) k/uL Hypochromasia Macrocytosis Sodium (137-145) mmol/L Potassium (3.5-5.1) mmol/L Chloride (98-107) mmol/L Carbon Dioxide (22-30) mmol/L Anion Gap mmol/L BUN (9-20) mg/dL Creatinine (0.66-1.25) mg/dL Est GFR (CKD-EPI)AfAm (>60 ml/min/1.73 sqM) Est GFR (CKD-EPI)NonAf (>60 ml/min/1.73 sqM) Glucose (74-99) mg/dL Calcium (8.4-10.2) mg/dL Total Bilirubin (0.2-1.3) mg/dL AST (17-59) U/L ALT (21-72) U/L Alkaline Phosphatase (38-126) U/L Troponin I <0.012 (0.000-0.034) ng/mL Total Protein (6.3-8.2) g/dL Albumin (3.5-5.0) g/dL Amylase (30-110) U/L Lipase (23-300) U/L Urine Color Urine Appearance (Clear) Urine pH (5.0-8.0) Ur Specific Angie (1.001-1.035) Urine Protein (Negative) Urine Glucose (UA) (Negative) Urine Ketones (Negative) Urine Blood (Negative) Urine Nitrite (Negative) Urine Bilirubin (Negative) Urine Urobilinogen (<2.0) mg/dL Ur Leukocyte Esterase (Negative) Urine RBC (0-5) /hpf Urine WBC (0-5) /hpf Amorphous Sediment (None) /hpf Urine Bacteria (None) /hpf Hyaline Casts (0-2) /lpf Urine Mucus (None) /hpf 10/03/17 17:39 EKG shows sinus rhythm, ventricular rate of 63 beats were minute. TX interval is 158. QRS ration 94 ms. QT QTc is 450/460 ms. - Radiology Data Radiology results: report reviewed CT shows diffuse and scarred changes. Correlating with patient's fluid status and correlate as etiology of fluid overload. Mild ascites redemonstrated. Liver disease noted. Nonobstructive nephrolithiasis noted. Moderate stool burn. Disposition Clinical Impression: Hematuria, Nephrolithiasis, Elevated bilirubin, Liver disease due to alcohol, Ascites due to chronic alcoholic hepatitis Disposition: HOME SELF-CARE Condition: Good Instructions: Kidney Stones (ED) Additional Instructions: Patient advised to follow-up with primary care provider and GI specialist in regards to chronic liver disease. Patient can take the medications as prescribed. Return to the emergency department if any alarming signs or symptoms occur. Prescriptions: Furosemide [Lasix] 20 mg PO DAILY #10 tab Ketorolac [Toradol] 10 mg PO TID #15 tab Tamsulosin HCl [Flomax] 0.4 mg PO DAILY #10 cap Is patient prescribed a controlled substance at d/c from ED?: No If prescribed controlled substance>3 days was MAPS reviewed?: No When asked, does pt state using other controlled substances?: No Referrals: Timmy uGevara MD [Primary Care Provider] - 1-2 days
--- NOTE | 2017-10-03 16:34 | CT ---
EXAMINATION TYPE: CT abdomen pelvis wo con DATE OF EXAM: 10/03/2017 COMPARISON: 09/01/2017 HISTORY: 42-year-old male Bilat flank pain, right sided abdominal pain and hematuria. CT DLP: 435.7 mGycm. Automated exposure control for dose reduction was used. TECHNIQUE: Contiguous axial scanning of the abdomen and pelvis without IV contrast. Coronal and sagit robby reconstructions performed. FINDINGS: Heart is normal size without pericardial effusion. Small hiatal hernia. Prominent bands of atelectasi s at the lung bases are increased. No pleural effusion. Mild perihepatic ascites and diffuse anasarca type changes with subcutaneous edema and additional radha ma of the intra-abdominal fat. Liver is mildly enlarged measuring 18.4 cm. Otherwise, noncontrast appearance of the liver, adrenal g lands, and pancreas shows no gross abnormality. Redemonstrated is splenomegaly at 16.5 cm on coronal series. Suggestion of some varices in the gastro hepatic ligament region. Periportal edema is suggested. Cholecystectomy clips. Bilateral nonobstructive nephrolithiasis with a couple punctate 1 mm calculi on the right and approxi mately 7 calculi on the left, largest measuring 5 mm. There is no hydronephrosis on either side. No dilated small bowel or free air. Moderate stool. No mesenteric or retroperitoneal lymphadenopathy seen. Bladder is urine distended. Prostate gland normal size. There is a small amount of pelvic free fluid. Bones: Mild degenerative changes at the hips. No osseous destructive process. IMPRESSION: 1. Diffuse anasarca-type change. Correlate with patient's fluid status and correlate as to etiology of fluid overload. 2. Mild abdominopelvic ascites redemonstrated. The overall degree of intra-abdominal mesenteric michelle a shows interval increase. 3. Consider underlying liver disease as a possible etiology given mild hepatomegaly (18.4 cm), possi ble gastrohepatic ligament varices, and splenomegaly (16.5 cm). Appropriate medical follow-up and fu rther workup recommended. 4. Bilateral nonobstructive nephrolithiasis as requested up to 5 mm. 5. Moderate stool burden.
[2017-10-03] MEDS ORDERED: FUROSEMIDE 10 MG/ML 4 ML VIAL IV STA (17:40)
[2017-10-03 18:01] VITALS: BP 119/68; PULSE 59; TEMP 98.5
== END 2017-10-03 18:18 | disposition home or self-care (01) ==
LOC: EC 14:18
DX: N20.0 Calculus of kidney (principal); E80.7 Disorder of bilirubin metabolism, unspecified; K70.9 Alcoholic liver disease, unspecified; K70.11 Alcoholic hepatitis with ascites; F17.200 Nicotine dependence, unspecified, uncomplicated; Z86.14 Personal history of Methicillin resistant Staphylococcus aureus infection; Z79.899 Other long term (current) drug therapy; Z90.49 Acquired absence of other specified parts of digestive tract
CPT/HCPCS: 36415; 93005; 80053; 82150; 83690; 84484; 85025; 81001; 74018; 74176; 99285; 96374; 96375 ×2; 96361 ×2; J1940; J2405; J1885

== ENCOUNTER 2017-10-18 02:51 | Emergency (ER) | payer OTHER ==
[2017-10-18] MEDS ORDERED: SODIUM CHLORIDE 0.9% 1,000 ML IV STA ×2 (02:54)
[2017-10-18] MEDS ORDERED: KETOROLAC 30 MG/ML 1 ML VIAL IVP STA (03:15)
--- NOTE | 2017-10-18 03:19 | ED ---
Abdominal Pain HPI - General Chief Complaint: Abdominal Pain Stated Complaint: ETOH, Back Pain Time Seen by Provider: 10/18/17 02:52 Source: patient, RN notes reviewed, old records reviewed Mode of arrival: EMS Limitations: no limitations - History of Present Illness Initial Comments: Patient's a 42-year-old male with a history of cirrhosis presents today chief complaint of right flank pain and right lower quadrant pain. History of hematuria. History of kidney stones. Patient recently was discharged from acute rehab facility for drug and alcohol abuse. Patient states that he isn't sober for 3 months. Patient denies nausea or vomiting. He does feel chilled. He states that he has had no diarrhea. Patient denies any chest pain or shortness of breath. - Related Data Home Medications Medication Instructions Recorded Confirmed Ferrous Sulfate [Iron (65 MG 325 mg PO DAILY@1200 18 09/01/17 Elemental)] Folic Acid 1 mg PO DAILY@1200 18 10/18/17 Previous Rx's Medication Instructions Recorded Multivitamins, Thera [Multivitamin 1 tab PO DAILY #30 tablet 09/03/17 (formulary)] Thiamine [Vitamin B-1] 100 mg PO DAILY #30 tablet 09/03/17 Furosemide [Lasix] 20 mg PO DAILY #10 tab 10/03/17 Ibuprofen [Motrin] 600 mg PO Q8HR PRN #20 tab 10/18/17 Ondansetron [Zofran] 4 mg PO Q8HR PRN #8 tab 10/18/17 Allergies Allergy/AdvReac Type Severity Reaction Status Date / Time No Known Allergies Allergy Verified 10/03/17 14:33 Review of Systems ROS Statement: Those systems with pertinent positive or pertinent negative responses have been documented in the HPI. ROS Other: All systems not noted in ROS Statement are negative. Past Medical History Past Medical History: Asthma, Liver Disease, Pneumonia Additional Past Medical History / Comment(s): ETOH abuse, liver cirrhosis, abdominal ascities, pancreatitis, multiple gallstones, nephrolithiasis, chronic anemia, resent hemoccult positive stool. History of Any Multi-Drug Resistant Organisms: MRSA Date of last positivie culture/infection: 12/09/2013 MDRO Source:: Right First Finger Past Surgical History: Appendectomy, Cholecystectomy, Orthopedic Surgery Additional Past Surgical History / Comment(s): 07/09/17 EGD/colonoscopy, paracentesis at [place] several months ago, right hand tendon repair, right knee arthroscopy, cystoscopy for kidney stone removal. Past Anesthesia/Blood Transfusion Reactions: No Reported Reaction Past Psychological History: PTSD Smoking Status: Current every day smoker Past Alcohol Use History: None Reported, Daily Past Drug Use History: None Reported, Heroin, Marijuana - Past Family History Mother Family Medical History: Hypertension Father Additional Family Medical History / Comment(s): Prostate issues. Brain aneurism. General Exam - General Exam Comments Initial Comments: Alert and oriented 42-year-old male. No significant distress. Limitations: no limitations General appearance: alert, in no apparent distress Head exam: Present: atraumatic, normocephalic, normal inspection Eye exam: Present: normal appearance, PERRL, EOMI. Absent: scleral icterus, conjunctival injection, periorbital swelling ENT exam: Present: normal exam, mucous membranes moist Neck exam: Present: normal inspection. Absent: tenderness, meningismus, lymphadenopathy Respiratory exam: Present: normal lung sounds bilaterally. Absent: respiratory distress, wheezes, rales, rhonchi, stridor Cardiovascular Exam: Present: regular rate, normal rhythm, normal heart sounds. Absent: systolic murmur, diastolic murmur, rubs, gallop, clicks GI/Abdominal exam: Present: soft, tenderness (minimal RLQ tenderness), normal bowel sounds. Absent: distended, guarding, rebound, rigid Extremities exam: Present: normal inspection, full ROM, normal capillary refill. Absent: tenderness, pedal edema, joint swelling, calf tenderness Back exam: Present: normal inspection Neurological exam: Present: alert, oriented X3, CN II-XII intact Psychiatric exam: Present: normal affect, normal mood Skin exam: Present: warm, dry, intact, normal color. Absent: rash Course Vital Signs 10/18/17 10/18/17 10/18/17 02:56 03:43 04:40 Temperature 98.1 F 98.1 F Pulse Rate 79 72 77 Respiratory 20 20 18 Rate Blood Pressure 155/60 114/58 146/94 O2 Sat by Pulse 100 99 96 Oximetry 10/18/17 05:16 Temperature 98.3 F Pulse Rate 72 Respiratory 16 Rate Blood Pressure 103/50 O2 Sat by Pulse 94 L Oximetry Medical Decision Making - Medical Decision Making Patient's a 42-year-old male with a history of cirrhosis presents today chief complaint of right flank pain and right lower quadrant pain. History of hematuria. History of kidney stones. Patient recently was discharged from acute rehab facility for drug and alcohol abuse. Patient has evidence of hematuria. He had a cT scan 2 weeks ago which showed right mephrolithiasis. Likely patient is passing stone. Also ETOH level is 190. Patient informed of this. He is discharged with motrin and zofran for flank pain and possiblity of kidney stone. Clinically sober and will be discharged home. - Lab Data Result diagrams: 10/18/17 03:00 10/18/17 03:00 Lab Results 10/18/17 10/18/17 10/18/17 Range/Units 03:00 03:00 03:00 WBC 9.5 (3.8-10.6) k/uL RBC 2.84 L (4.30-5.90) m/uL Hgb 9.7 L (13.0-17.5) gm/dL Hct 29.4 L (39.0-53.0) % MCV 103.3 H (80.0-100.0) fL MCH 34.2 (25.0-35.0) pg MCHC 33.1 (31.0-37.0) g/dL RDW 15.3 (11.5-15.5) % Plt Count 176 D (150-450) k/uL Neutrophils % 52 % Lymphocytes % 31 % Monocytes % 9 % Eosinophils % 4 % Basophils % 1 % Neutrophils # 4.9 (1.3-7.7) k/uL Lymphocytes # 2.9 (1.0-4.8) k/uL Monocytes # 0.8 (0-1.0) k/uL Eosinophils # 0.4 (0-0.7) k/uL Basophils # 0.1 (0-0.2) k/uL Macrocytosis Slight PT 14.0 H (9.0-12.0) sec INR 1.5 H (<1.2) APTT 28.7 (22.0-30.0) sec Sodium 151 H (137-145) mmol/L Potassium 3.8 (3.5-5.1) mmol/L Chloride 116 H (98-107) mmol/L Carbon Dioxide 18 L (22-30) mmol/L Anion Gap 17 mmol/L BUN 10 (9-20) mg/dL Creatinine 0.70 (0.66-1.25) mg/dL Est GFR (CKD-EPI)AfAm >90 (>60 ml/min/1.73 sqM) Est GFR (CKD-EPI)NonAf >90 (>60 ml/min/1.73 sqM) Glucose 96 (74-99) mg/dL Calcium 9.1 (8.4-10.2) mg/dL Total Bilirubin 2.0 H (0.2-1.3) mg/dL AST 78 H (17-59) U/L ALT 31 (21-72) U/L Alkaline Phosphatase 99 (38-126) U/L Total Protein 8.3 H (6.3-8.2) g/dL Albumin 3.8 (3.5-5.0) g/dL Amylase 91 (30-110) U/L Lipase 631 H (23-300) U/L Urine Color Urine Appearance (Clear) Urine pH (5.0-8.0) Ur Specific [place] (1.001-1.035) Urine Protein (Negative) Urine Glucose (UA) (Negative) Urine Ketones (Negative) Urine Blood (Negative) Urine Nitrite (Negative) Urine Bilirubin (Negative) Urine Urobilinogen (<2.0) mg/dL Ur Leukocyte Esterase (Negative) Urine RBC (0-5) /hpf Urine WBC (0-5) /hpf Hyaline Casts (0-2) /lpf Urine Mucus (None) /hpf Urine Opiates Screen (NotDetected) Ur Oxycodone Screen (NotDetected) Urine Methadone Screen (NotDetected) Ur Propoxyphene Screen (NotDetected) Ur Barbiturates Screen (NotDetected) U Tricyclic Antidepress (NotDetected) Ur Phencyclidine Scrn (NotDetected) Ur Amphetamines Screen (NotDetected) U Methamphetamines Scrn (NotDetected) U Benzodiazepines Scrn (NotDetected) Urine Cocaine Screen (NotDetected) U Marijuana (THC) Screen (NotDetected) Serum Alcohol 190 mg/dL 10/18/17 Range/Units 03:30 WBC (3.8-10.6) k/uL RBC (4.30-5.90) m/uL Hgb (13.0-17.5) gm/dL Hct (39.0-53.0) % MCV (80.0-100.0) fL MCH (25.0-35.0) pg MCHC (31.0-37.0) g/dL RDW (11.5-15.5) % Plt Count (150-450) k/uL Neutrophils % % Lymphocytes % % Monocytes % % Eosinophils % % Basophils % % Neutrophils # (1.3-7.7) k/uL Lymphocytes # (1.0-4.8) k/uL Monocytes # (0-1.0) k/uL Eosinophils # (0-0.7) k/uL Basophils # (0-0.2) k/uL Macrocytosis PT (9.0-12.0) sec INR (<1.2) APTT (22.0-30.0) sec Sodium (137-145) mmol/L Potassium (3.5-5.1) mmol/L Chloride (98-107) mmol/L Carbon Dioxide (22-30) mmol/L Anion Gap mmol/L BUN (9-20) mg/dL Creatinine (0.66-1.25) mg/dL Est GFR (CKD-EPI)AfAm (>60 ml/min/1.73 sqM) Est GFR (CKD-EPI)NonAf (>60 ml/min/1.73 sqM) Glucose (74-99) mg/dL Calcium (8.4-10.2) mg/dL Total Bilirubin (0.2-1.3) mg/dL AST (17-59) U/L ALT (21-72) U/L Alkaline Phosphatase (38-126) U/L Total Protein (6.3-8.2) g/dL Albumin (3.5-5.0) g/dL Amylase (30-110) U/L Lipase (23-300) U/L Urine Color Yellow Urine Appearance Clear (Clear) Urine pH 6.5 (5.0-8.0) Ur Specific [place] 1.011 (1.001-1.035) Urine Protein Negative (Negative) Urine Glucose (UA) Negative (Negative) Urine Ketones Negative (Negative) Urine Blood Small H (Negative) Urine Nitrite Negative (Negative) Urine Bilirubin Negative (Negative) Urine Urobilinogen 4.0 (<2.0) mg/dL Ur Leukocyte Esterase Negative (Negative) Urine RBC 12 H (0-5) /hpf Urine WBC 1 (0-5) /hpf Hyaline Casts 1 (0-2) /lpf Urine Mucus Rare H (None) /hpf Urine Opiates Screen Not Detected (NotDetected) Ur Oxycodone Screen Not Detected (NotDetected) Urine Methadone Screen Not Detected (NotDetected) Ur Propoxyphene Screen Not Detected (NotDetected) Ur Barbiturates Screen Not Detected (NotDetected) U Tricyclic Antidepress Not Detected (NotDetected) Ur Phencyclidine Scrn Not Detected (NotDetected) Ur Amphetamines Screen Not Detected (NotDetected) U Methamphetamines Scrn Not Detected (NotDetected) U Benzodiazepines Scrn Detected H (NotDetected) Urine Cocaine Screen Not Detected (NotDetected) U Marijuana (THC) Screen Detected H (NotDetected) Serum Alcohol mg/dL Disposition Clinical Impression: Alcohol abuse, Polysubstance abuse, Flank pain, Hematuria, Acute on chronic pancreatitis Disposition: HOME SELF-CARE Condition: Stable Instructions: Abuse of Alcohol (ED), Flank Pain (ED) Additional Instructions: Follow-up with primary care provider scheduled appointments. Take the medication as directed. Return to emergency department if any alarming signs or symptoms occur. Prescriptions: Ibuprofen [Motrin] 600 mg PO Q8HR PRN #20 tab PRN Reason: Pain Ondansetron [Zofran] 4 mg PO Q8HR PRN #8 tab PRN Reason: Nausea And Vomiting Is patient prescribed a controlled substance at d/c from ED?: No When asked, does pt state using other controlled substances?: No If prescribed controlled substance>3 days was MAPS reviewed?: No If opioid is for acute pain is fill amount 7 days or less?: No If Rx opioid, was Start Talking consent form obtained?: No Referrals: Timmy Guevara MD [Primary Care Provider] - 1-2 days Time of Disposition: 05:09
[2017-10-18 03:21] LABS: Basophils # (A) 0.1 k/uL (0-0.2); Basophils % (A) 1 %; Eosinophils # (A) 0.4 k/uL (0-0.7); Eosinophils % (A) 4 %; HCT 29.4 % (39.0-53.0); HGB 9.7 gm/dL (13.0-17.5); Lymphocytes # (A) 2.9 k/uL (1.0-4.8); Lymphocytes % (A) 31 %; MCH 34.2 pg (25.0-35.0); MCHC 33.1 g/dL (31.0-37.0); MCV 103.3 fL (80.0-100.0); Macrocytosis Slight; Mean Platelet Volume 8.8; Monocytes # (A) 0.8 k/uL (0-1.0); Monocytes % (A) 9 %; Neutrophils # (A) 4.9 k/uL (1.3-7.7); Neutrophils % (A) 52 %; RBC 2.84 m/uL (4.30-5.90); RDW 15.3 % (11.5-15.5); WBC 9.5 k/uL (3.8-10.6)
[2017-10-18 03:23] LABS: Platelet Count 176 k/uL (150-450)
[2017-10-18 03:31] LABS: INR 1.5 (<1.2); Partial Thromboplastin Time 28.7 sec (22.0-30.0)
[2017-10-18 03:34] LABS: ALT 31 U/L (21-72); AST 78 U/L (17-59); Albumin 3.8 g/dL (3.5-5.0); Alkaline Phosphatase 99 U/L (38-126); Amylase 91 U/L (30-110); Anion Gap 17 mmol/L; Blood Urea Nitrogen 10 mg/dL (9-20); Calcium 9.1 mg/dL (8.4-10.2); Carbon Dioxide 18 mmol/L (22-30); Chloride 116 mmol/L (98-107); Glucose 96 mg/dL (74-99); Lipase 631 U/L (23-300); Potassium 3.8 mmol/L (3.5-5.1); Sodium 151 mmol/L (137-145); Total Protein 8.3 g/dL (6.3-8.2)
[2017-10-18 03:56] LABS: Appearance,Urine Clear (Clear); Bilirubin,Urine Negative (Negative); Blood,Urine Small (Negative); Color,Urine Yellow; Glucose,Urine (UA) Negative (Negative); Hyaline Casts,Urine 1 /lpf (0-2); Ketones,Urine Negative (Negative); Leukocyte Esterase,Urine Negative (Negative); Mucus,Urine Rare /hpf; Nitrite,Urine Negative (Negative); PH, Urine 6.5 (5.0-8.0); Protein,Urine Negative (Negative); RBC,Urine 12 /hpf (0-5); Specific Gravity,Urine 1.011 (1.001-1.035); WBC,Urine 1 /hpf (0-5)
[2017-10-18 04:02] LABS: Alcohol 190 mg/dL
[2017-10-18 04:21] LABS: Amphetamine Screen,Urine Not Detected (NotDetected); Barbiturate Screen,Urine Not Detected (NotDetected); Benzodiazepines Screen,Urine Detected (NotDetected); Cocaine Screen,Urine Not Detected (NotDetected); Methadone Screen, Urine Not Detected (NotDetected); Opiate Screen,Urine Not Detected (NotDetected); Oxycodone Screen, Urine Not Detected (NotDetected); Phencyclidine Screen,Urine Not Detected (NotDetected); Tricyclic Antidepressant,Urine Not Detected (NotDetected); Urn Cannabinoid Scrn Detected (NotDetected)
--- NOTE | 2017-10-18 04:33 | XR ---
EXAM: XR Abdomen, 1 View CLINICAL HISTORY: abdominal pain TECHNIQUE: Frontal supine view of the abdomen/pelvis. COMPARISON: CT 10/03/2017 FINDINGS: Intraperitoneal space: No pneumatosis or pneumoperitoneum. Gastrointestinal tract: Nonobstructive bowel gas pattern. Bones/joints: No acute fracture or malalignment. Soft tissues: Surgical clips project over the right upper quadrant. IMPRESSION: Nonobstructive bowel gas pattern.
[2017-10-18 05:17] VITALS: BP 103/50; PULSE 72; RESP 16; TEMP 98.3
== END 2017-10-18 05:20 | disposition home or self-care (01) ==
LOC: EC 02:51
DX: K85.90 Acute pancreatitis without necrosis or infection, unspecified (principal); F10.10 Alcohol abuse, uncomplicated; F19.10 Other psychoactive substance abuse, uncomplicated; Y90.6 Blood alcohol level of 120-199 mg/100 ml; R31.9 Hematuria, unspecified; D64.9 Anemia, unspecified; F17.200 Nicotine dependence, unspecified, uncomplicated; Z86.14 Personal history of Methicillin resistant Staphylococcus aureus infection; Z90.49 Acquired absence of other specified parts of digestive tract; Z79.899 Other long term (current) drug therapy; Z87.442 Personal history of urinary calculi
CPT/HCPCS: 99285; 96374; 96361 ×2; 36415; 80053; 82150; 83690; 85025; 85610; 85730; 81001; 80306; 80320; 74018; J1885

== ENCOUNTER 2017-11-04 01:50 | Emergency (ER) | payer OTHER ==
[2017-11-04 02:15] LABS: Appearance,Urine Clear (Clear); Bacteria,Urine Rare /hpf; Bilirubin,Urine 1+ (Negative); Blood,Urine Large (Negative); Color,Urine Yellow; Glucose,Urine (UA) Negative (Negative); Hyaline Casts,Urine 1 /lpf (0-2); Ketones,Urine Trace (Negative); Leukocyte Esterase,Urine Small (Negative); Mucus,Urine Rare /hpf; Nitrite,Urine Negative (Negative); PH, Urine 6.5 (5.0-8.0); Protein,Urine Trace (Negative); RBC,Urine >182 /hpf (0-5); Renal Epithelial Cells,Urine 3 /hpf (0); Specific Gravity,Urine 1.014 (1.001-1.035); Urobilinogen,Urine >12.0 mg/dL (<2.0); WBC,Urine 22 /hpf (0-5)
[2017-11-04] MEDS ORDERED: ONDANSETRON 4 MG/2 ML VIAL IVP STA (03:03)
[2017-11-04] MEDS ORDERED: KETOROLAC 30 MG/ML 1 ML VIAL IVP STA (03:03)
[2017-11-04] MEDS ORDERED: SODIUM CHLORIDE 0.9% 1,000 ML IV STA (03:03)
--- NOTE | 2017-11-04 03:07 | ED ---
Abdominal Pain HPI - General Chief Complaint: Abdominal Pain Stated Complaint: Flank Pain Time Seen by Provider: 11/04/17 02:50 Source: patient Mode of arrival: ambulatory Limitations: no limitations - History of Present Illness Initial Comments: 42-year-old male patient presents to the emergency department today for evaluation of right-sided abdominal pain that radiates into the right flank. Patient does have a past medical history significant for alcoholic cirrhosis of the liver, pancreatitis, kidney stones, and chronic abdominal pain. Patient states he has to known stones on the right. Patient states that he did have three 24 ounce beers to drink today. Patient states that his abdominal pain worsened approximately 6 hours ago. States he has been noticing blood in his urine. States he has had decreased urine output. Patient states he has been nauseated today and did vomit a couple of times. Denies any hematemesis. Denies any constipation, diarrhea, hematochezia, or melena. Denies any known fevers or chills. Patient denies any recent rash, shortness breath, chest pain, numbness, tingling, dizziness, weakness, headache, visual changes, or any other complaints. - Related Data Home Medications Medication Instructions Recorded Confirmed Ferrous Sulfate [Iron (65 MG 325 mg PO DAILY@1200 18 09/01/17 Elemental)] Folic Acid 1 mg PO DAILY@1200 09/01/17 10/18/17 Previous Rx's Medication Instructions Recorded Multivitamins, Thera [Multivitamin 1 tab PO DAILY #30 tablet 09/03/17 (formulary)] Thiamine [Vitamin B-1] 100 mg PO DAILY #30 tablet 09/03/17 Furosemide [Lasix] 20 mg PO DAILY #10 tab 10/03/17 Ibuprofen [Motrin] 600 mg PO Q8HR PRN #20 tab 10/18/17 Ondansetron [Zofran] 4 mg PO Q8HR PRN #8 tab 10/18/17 Allergies Allergy/AdvReac Type Severity Reaction Status Date / Time No Known Allergies Allergy Verified 11/04/17 01:56 Review of Systems ROS Statement: Those systems with pertinent positive or pertinent negative responses have been documented in the HPI. ROS Other: All systems not noted in ROS Statement are negative. Past Medical History Past Medical History: Asthma, Liver Disease, Pneumonia Additional Past Medical History / Comment(s): ETOH abuse, liver cirrhosis, abdominal ascities, pancreatitis, multiple gallstones, nephrolithiasis, chronic anemia, resent hemoccult positive stool. History of Any Multi-Drug Resistant Organisms: MRSA Date of last positivie culture/infection: 12/09/2013 MDRO Source:: Right First Finger Past Surgical History: Appendectomy, Cholecystectomy, Orthopedic Surgery Additional Past Surgical History / Comment(s): 07/09/17 EGD/colonoscopy, paracentesis at [place] several months ago, right hand tendon repair, right knee arthroscopy, cystoscopy for kidney stone removal. Past Anesthesia/Blood Transfusion Reactions: No Reported Reaction Past Psychological History: PTSD Smoking Status: Current every day smoker Past Alcohol Use History: None Reported, Daily Past Drug Use History: None Reported, Marijuana - Past Family History Mother Family Medical History: Hypertension Father Additional Family Medical History / Comment(s): Prostate issues. Brain aneurism. General Exam Limitations: no limitations General appearance: alert, in no apparent distress, other (Social well-developed , well-nourished adult male patient in no acute distress. Vital signs upon presentation are temperature 98.3F, pulse 74, respirations 18, blood pressure 115/67, pulse ox 99% on room air.) Eye exam: Present: normal appearance, PERRL, EOMI, scleral icterus. Absent: conjunctival injection, periorbital swelling ENT exam: Present: normal exam, normal oropharynx, mucous membranes moist Respiratory exam: Present: normal lung sounds bilaterally. Absent: respiratory distress, wheezes, rales, rhonchi, stridor Cardiovascular Exam: Present: regular rate, normal rhythm, normal heart sounds. Absent: systolic murmur, diastolic murmur, rubs, gallop, clicks GI/Abdominal exam: Present: soft, tenderness (Midepigastric tenderness, right upper quadrant tenderness, right lower quadrant tenderness), normal bowel sounds. Absent: distended, guarding, rebound, rigid Neurological exam: Present: alert, oriented X3, CN II-XII intact Psychiatric exam: Present: normal affect, normal mood Skin exam: Present: warm, dry, intact, normal color. Absent: rash Course Vital Signs 11/04/17 11/04/17 11/04/17 01:52 04:15 04:55 Temperature 98.3 F 97.9 F Pulse Rate 74 61 61 Respiratory 18 19 18 Rate Blood Pressure 115/67 131/69 134/66 O2 Sat by Pulse 99 99 98 Oximetry Medical Decision Making - Medical Decision Making 42-year-old male patient presents to the emergency department today for evaluation of midepigastric and right-sided abdominal pain. Pain has been going on for the last 6 hours. Patient does always have some element of abdominal pain from chronic alcoholic cirrhosis of the liver and pancreatitis. Physical examination did reveal some midepigastric abdominal tenderness. Labs reviewed and did show some chronic changes to his lipase and liver enzymes. Urinalysis did show large amount of blood. Patient does have a history of kidney stones as well. Salt that maybe this pain is related to a kidney stone and will treat him as such he does have an appointment with Dr. Dowell next week he is urged to keep this appointment. He'll be given ibuprofen for pain control. Return parameters discussed in detail. He verbalizes understanding and agrees with this plan. - Lab Data Result diagrams: 11/04/17 03:08 11/04/17 03:08 Lab Results 11/04/17 11/04/17 11/04/17 Range/Units 01:50 03:08 03:08 WBC 6.1 (3.8-10.6) k/uL RBC 2.85 L (4.30-5.90) m/uL Hgb 9.6 L (13.0-17.5) gm/dL Hct 29.3 L (39.0-53.0) % MCV 102.7 H (80.0-100.0) fL MCH 33.6 (25.0-35.0) pg MCHC 32.7 (31.0-37.0) g/dL RDW 16.9 H (11.5-15.5) % Plt Count 97 L (150-450) k/uL Neutrophils % 50 % Lymphocytes % 27 % Monocytes % 11 % Eosinophils % 6 % Basophils % 2 % Neutrophils # 3.1 (1.3-7.7) k/uL Lymphocytes # 1.7 (1.0-4.8) k/uL Monocytes # 0.7 (0-1.0) k/uL Eosinophils # 0.4 (0-0.7) k/uL Basophils # 0.1 (0-0.2) k/uL Manual Slide Review Performed Anisocytosis Slight Macrocytosis Moderate Sodium 142 (137-145) mmol/L Potassium 3.4 L (3.5-5.1) mmol/L Chloride 111 H (98-107) mmol/L Carbon Dioxide 19 L (22-30) mmol/L Anion Gap 12 mmol/L BUN 9 (9-20) mg/dL Creatinine 0.70 (0.66-1.25) mg/dL Est GFR (CKD-EPI)AfAm >90 (>60 ml/min/1.73 sqM) Est GFR (CKD-EPI)NonAf >90 (>60 ml/min/1.73 sqM) Glucose 95 (74-99) mg/dL Calcium 9.4 (8.4-10.2) mg/dL Total Bilirubin 2.7 H (0.2-1.3) mg/dL AST 71 H (17-59) U/L ALT 33 (21-72) U/L Alkaline Phosphatase 142 H (38-126) U/L Total Protein 8.2 (6.3-8.2) g/dL Albumin 3.9 (3.5-5.0) g/dL Amylase 53 (30-110) U/L Lipase 489 H (23-300) U/L Urine Color Yellow Urine Appearance Clear (Clear) Urine pH 6.5 (5.0-8.0) Ur Specific [place] 1.014 (1.001-1.035) Urine Protein Trace H (Negative) Urine Glucose (UA) Negative (Negative) Urine Ketones Trace H (Negative) Urine Blood Large H (Negative) Urine Nitrite Negative (Negative) Urine Bilirubin 1+ H (Negative) Urine Urobilinogen >12.0 (<2.0) mg/dL Ur Leukocyte Esterase Small H (Negative) Urine RBC >182 H (0-5) /hpf Urine WBC 22 H (0-5) /hpf Ur Renal Epithelial Cell 3 (0) /hpf Urine Bacteria Rare H (None) /hpf Hyaline Casts 1 (0-2) /lpf Urine Mucus Rare H (None) /hpf - Radiology Data Radiology results: report reviewed, image reviewed Disposition Clinical Impression: Kidney stone, Chronic abdominal pain Disposition: HOME SELF-CARE Condition: Good Instructions: Kidney Stones (ED) Is patient prescribed a controlled substance at d/c from ED?: No Referrals: Timmy Guevara MD [Primary Care Provider] - 1-2 days
[2017-11-04 03:28] LABS: Anisocytosis Slight; Basophils # (A) 0.1 k/uL (0-0.2); Basophils % (A) 2 %; Eosinophils # (A) 0.4 k/uL (0-0.7); Eosinophils % (A) 6 %; HCT 29.3 % (39.0-53.0); HGB 9.6 gm/dL (13.0-17.5); Lymphocytes # (A) 1.7 k/uL (1.0-4.8); Lymphocytes % (A) 27 %; MCH 33.6 pg (25.0-35.0); MCHC 32.7 g/dL (31.0-37.0); MCV 102.7 fL (80.0-100.0); Macrocytosis Moderate; Mean Platelet Volume 8.7; Monocytes # (A) 0.7 k/uL (0-1.0); Monocytes % (A) 11 %; Neutrophils # (A) 3.1 k/uL (1.3-7.7); Neutrophils % (A) 50 %; RBC 2.85 m/uL (4.30-5.90); RDW 16.9 % (11.5-15.5); WBC 6.1 k/uL (3.8-10.6)
[2017-11-04 03:32] LABS: ALT 33 U/L (21-72); AST 71 U/L (17-59); Albumin 3.9 g/dL (3.5-5.0); Alkaline Phosphatase 142 U/L (38-126); Amylase 53 U/L (30-110); Anion Gap 12 mmol/L; Blood Urea Nitrogen 9 mg/dL (9-20); Calcium 9.4 mg/dL (8.4-10.2); Carbon Dioxide 19 mmol/L (22-30); Chloride 111 mmol/L (98-107); Glucose 95 mg/dL (74-99); Lipase 489 U/L (23-300); Potassium 3.4 mmol/L (3.5-5.1); Sodium 142 mmol/L (137-145); Total Bilirubin 2.7 mg/dL (0.2-1.3); Total Protein 8.2 g/dL (6.3-8.2)
[2017-11-04 03:50] LABS: Platelet Count 97 k/uL (150-450)
[2017-11-04 04:29] VITALS: PULSE 61
[2017-11-04] MEDS ORDERED: ACET/COD 300 MG/30 MG STARTER PACK 6 TAB BTL PO STA (04:41)
[2017-11-04 04:58] VITALS: BP 134/66; RESP 18; TEMP 97.9
== END 2017-11-04 04:55 | disposition home or self-care (01) ==
LOC: EC 01:50
DX: N20.0 Calculus of kidney (principal); G89.29 Other chronic pain; R10.13 Epigastric pain; R74.8 Abnormal levels of other serum enzymes; H15.89 Other disorders of sclera; K70.30 Alcoholic cirrhosis of liver without ascites; K85.90 Acute pancreatitis without necrosis or infection, unspecified; D64.9 Anemia, unspecified; F17.200 Nicotine dependence, unspecified, uncomplicated; Z79.899 Other long term (current) drug therapy; Z86.14 Personal history of Methicillin resistant Staphylococcus aureus infection; Z90.49 Acquired absence of other specified parts of digestive tract; Z98.890 Other specified postprocedural states
CPT/HCPCS: 36415; 80053; 82150; 83690; 85025; 81001; 99284; 96374; 96375; 96361; J2405; J1885

== ENCOUNTER 2017-11-15 03:08 | Emergency (ER) | payer OTHER ==
[2017-11-15 03:17] VITALS: RESP 18
[2017-11-15] MEDS ORDERED: KETOROLAC 30 MG/ML 1 ML VIAL IVP STA (03:45)
[2017-11-15] MEDS ORDERED: ONDANSETRON 4 MG/2 ML VIAL IVP STA (03:45)
[2017-11-15] MEDS ORDERED: SODIUM CHLORIDE 0.9% 1,000 ML IV STA (03:45)
[2017-11-15] MEDS ORDERED: MORPHINE SULFATE 2 MG/ML SYRINGE IV STA (03:45)
--- NOTE | 2017-11-15 03:48 | ED ---
Abdominal Pain HPI - General Source: patient Mode of arrival: ambulatory Limitations: no limitations <Allison Wise - Last Filed: 11/15/17 04:03> <Rajwinder White - Last Filed: 11/15/17 06:43> - General Chief Complaint: Abdominal Pain Stated Complaint: Flank Pain Time Seen by Provider: 11/15/17 03:18 - History of Present Illness Initial Comments: 42-year-old male patient presents the emergency department today for evaluation of right flank pain. Patient states that he has had this pain throughout the day today. Patient states he has have a history of kidney stones and does have known kidney stone on the right side. Patient states that he has vomited twice with this. Patient states that the pain is severe and sharp in nature. States it feels like his usual kidney stone pain. He does report hematuria. Patient also has a history of alcoholic cirrhosis of the liver and chronic abdominal pain. Patient does admit to using alcohol today. Denies any constipation or diarrhea. Denies any fevers or chills. Patient denies any recent rash, shortness breath, chest pain, numbness, tingling, dizziness, weakness, dysuria, urinary urgency, urinary frequency, headache, visual changes, or any other complaints. (Allison Wise) - Related Data Home Medications Medication Instructions Recorded Confirmed Ferrous Sulfate [Iron (65 MG 325 mg PO DAILY@1200 18 09/01/17 Elemental)] Folic Acid 1 mg PO DAILY@1200 18 10/18/17 Previous Rx's Medication Instructions Recorded Multivitamins, Thera [Multivitamin 1 tab PO DAILY #30 tablet 09/03/17 (formulary)] Thiamine [Vitamin B-1] 100 mg PO DAILY #30 tablet 09/03/17 Furosemide [Lasix] 20 mg PO DAILY #10 tab 10/03/17 Ibuprofen [Motrin] 600 mg PO Q8HR PRN #20 tab 10/18/17 Ondansetron [Zofran] 4 mg PO Q8HR PRN #8 tab 10/18/17 Ciprofloxacin HCl [Cipro] 500 mg PO Q12HR #14 tablet 11/15/17 Allergies Allergy/AdvReac Type Severity Reaction Status Date / Time No Known Allergies Allergy Verified 11/15/17 03:17 Review of Systems ROS Other: All systems not noted in ROS Statement are negative. <Allison Wise - Last Filed: 11/15/17 04:03> ROS Other: All systems not noted in ROS Statement are negative. <Rajwinder White - Last Filed: 11/15/17 06:43> ROS Statement: Those systems with pertinent positive or pertinent negative responses have been documented in the HPI. Past Medical History Past Medical History: Asthma, Liver Disease, Pneumonia Additional Past Medical History / Comment(s): ETOH abuse, liver cirrhosis, abdominal ascities, pancreatitis, multiple gallstones, nephrolithiasis, chronic anemia, resent hemoccult positive stool. History of Any Multi-Drug Resistant Organisms: MRSA Date of last positivie culture/infection: 12/09/2013 MDRO Source:: Right First Finger Past Surgical History: Appendectomy, Cholecystectomy, Orthopedic Surgery Additional Past Surgical History / Comment(s): 07/09/17 EGD/colonoscopy, paracentesis at [place] several months ago, right hand tendon repair, right knee arthroscopy, cystoscopy for kidney stone removal. Past Anesthesia/Blood Transfusion Reactions: No Reported Reaction Past Psychological History: PTSD Smoking Status: Current every day smoker Past Alcohol Use History: None Reported, Daily Past Drug Use History: Marijuana - Past Family History Mother Family Medical History: Hypertension Father Additional Family Medical History / Comment(s): Prostate issues. Brain aneurism. <Allison Wise Jose L - Last Filed: 11/15/17 04:03> General Exam Limitations: no limitations General appearance: alert, in no apparent distress, other (This is a well- developed, well-nourished adult male patient in no acute distress. Vital signs upon presentation are temperature 98.3F, pulse 88, respirations 18, blood pressure 115/67, pulse ox 98% on room air.) Eye exam: Present: normal appearance, PERRL, EOMI. Absent: scleral icterus, conjunctival injection, periorbital swelling Respiratory exam: Present: normal lung sounds bilaterally. Absent: respiratory distress, wheezes, rales, rhonchi, stridor Cardiovascular Exam: Present: regular rate, normal rhythm, normal heart sounds. Absent: systolic murmur, diastolic murmur, rubs, gallop, clicks GI/Abdominal exam: Present: soft, normal bowel sounds. Absent: distended, tenderness, guarding, rebound, rigid Back exam: Present: normal inspection, CVA tenderness (R). Absent: CVA tenderness (L) Neurological exam: Present: alert, oriented X3, CN II-XII intact Psychiatric exam: Present: normal affect, normal mood Skin exam: Present: warm, dry, intact, normal color. Absent: rash <Allison Wise - Last Filed: 11/15/17 04:03> Course <Allison Wise - Last Filed: 11/15/17 04:03> <Rajwinder White - Last Filed: 11/15/17 06:43> Vital Signs 11/15/17 11/15/17 03:14 06:07 Temperature 98.3 F 97.8 F Pulse Rate 88 72 Respiratory 18 18 Rate Blood Pressure 115/67 133/68 O2 Sat by Pulse 98 97 Oximetry Is reassessed at test 6 AM he is feeling fine now and now he wants to go home pain is significantly better he will follow up with his family doctor or return back to the ER if symptoms get worse him his lipase is 363 urine showed some hematuria and white count is 12.2 and it really looks like he had a stone in the past that (Rajwinder White) Medical Decision Making - Lab Data Result diagrams: 11/15/17 03:25 <Allison Wise - Last Filed: 11/15/17 04:03> - Lab Data Result diagrams: 11/15/17 03:25 11/15/17 03:25 <Rajwinder White - Last Filed: 11/15/17 06:43> - Medical Decision Making Care is handed over to Dr. White at this time. He will follow patient until discharge. (Allison Wise) - Lab Data Lab Results 11/15/17 11/15/17 11/15/17 Range/Units 03:25 03:25 03:25 WBC 12.2 H (3.8-10.6) k/uL RBC 2.89 L (4.30-5.90) m/uL Hgb 9.7 L (13.0-17.5) gm/dL Hct 30.1 L (39.0-53.0) % MCV 104.0 H (80.0-100.0) fL MCH 33.6 (25.0-35.0) pg MCHC 32.3 (31.0-37.0) g/dL RDW 17.2 H (11.5-15.5) % Plt Count 150 D (150-450) k/uL Neutrophils % 62 % Lymphocytes % 20 % Monocytes % 10 % Eosinophils % 4 % Basophils % 1 % Neutrophils # 7.5 (1.3-7.7) k/uL Lymphocytes # 2.4 (1.0-4.8) k/uL Monocytes # 1.2 H (0-1.0) k/uL Eosinophils # 0.5 (0-0.7) k/uL Basophils # 0.1 (0-0.2) k/uL Anisocytosis Slight Macrocytosis Moderate PT 15.0 H (9.0-12.0) sec INR 1.6 H (<1.2) APTT 28.7 (22.0-30.0) sec Sodium 143 (137-145) mmol/L Potassium 4.1 (3.5-5.1) mmol/L Chloride 110 H (98-107) mmol/L Carbon Dioxide 21 L (22-30) mmol/L Anion Gap 12 mmol/L BUN 12 (9-20) mg/dL Creatinine 0.80 (0.66-1.25) mg/dL Est GFR (CKD-EPI)AfAm >90 (>60 ml/min/1.73 sqM) Est GFR (CKD-EPI)NonAf >90 (>60 ml/min/1.73 sqM) Glucose 96 (74-99) mg/dL Calcium 9.8 (8.4-10.2) mg/dL Total Bilirubin 2.1 H (0.2-1.3) mg/dL AST 66 H (17-59) U/L ALT 30 (21-72) U/L Alkaline Phosphatase 121 (38-126) U/L Total Protein 8.1 (6.3-8.2) g/dL Albumin 3.8 (3.5-5.0) g/dL Amylase 62 (30-110) U/L Lipase 363 H (23-300) U/L Urine Color Urine Appearance (Clear) Urine pH (5.0-8.0) Ur Specific [place] (1.001-1.035) Urine Protein (Negative) Urine Glucose (UA) (Negative) Urine Ketones (Negative) Urine Blood (Negative) Urine Nitrite (Negative) Urine Bilirubin (Negative) Urine Urobilinogen (<2.0) mg/dL Ur Leukocyte Esterase (Negative) Urine RBC (0-5) /hpf Urine WBC (0-5) /hpf Urine Bacteria (None) /hpf Hyaline Casts (0-2) /lpf Urine Mucus (None) /hpf 11/15/17 Range/Units 03:25 WBC (3.8-10.6) k/uL RBC (4.30-5.90) m/uL Hgb (13.0-17.5) gm/dL Hct (39.0-53.0) % MCV (80.0-100.0) fL MCH (25.0-35.0) pg MCHC (31.0-37.0) g/dL RDW (11.5-15.5) % Plt Count (150-450) k/uL Neutrophils % % Lymphocytes % % Monocytes % % Eosinophils % % Basophils % % Neutrophils # (1.3-7.7) k/uL Lymphocytes # (1.0-4.8) k/uL Monocytes # (0-1.0) k/uL Eosinophils # (0-0.7) k/uL Basophils # (0-0.2) k/uL Anisocytosis Macrocytosis PT (9.0-12.0) sec INR (<1.2) APTT (22.0-30.0) sec Sodium (137-145) mmol/L Potassium (3.5-5.1) mmol/L Chloride (98-107) mmol/L Carbon Dioxide (22-30) mmol/L Anion Gap mmol/L BUN (9-20) mg/dL Creatinine (0.66-1.25) mg/dL Est GFR (CKD-EPI)AfAm (>60 ml/min/1.73 sqM) Est GFR (CKD-EPI)NonAf (>60 ml/min/1.73 sqM) Glucose (74-99) mg/dL Calcium (8.4-10.2) mg/dL Total Bilirubin (0.2-1.3) mg/dL AST (17-59) U/L ALT (21-72) U/L Alkaline Phosphatase (38-126) U/L Total Protein (6.3-8.2) g/dL Albumin (3.5-5.0) g/dL Amylase (30-110) U/L Lipase (23-300) U/L Urine Color Yellow Urine Appearance Cloudy (Clear) Urine pH 6.0 (5.0-8.0) Ur Specific [place] 1.015 (1.001-1.035) Urine Protein 1+ H (Negative) Urine Glucose (UA) Negative (Negative) Urine Ketones Trace H (Negative) Urine Blood Large H (Negative) Urine Nitrite Negative (Negative) Urine Bilirubin 1+ H (Negative) Urine Urobilinogen 6.0 (<2.0) mg/dL Ur Leukocyte Esterase Small H (Negative) Urine RBC 166 H (0-5) /hpf Urine WBC 13 H (0-5) /hpf Urine Bacteria Rare H (None) /hpf Hyaline Casts 31 H (0-2) /lpf Urine Mucus Many H (None) /hpf Disposition <Allison Wise - Last Filed: 11/15/17 04:03> Is patient prescribed a controlled substance at d/c from ED?: No <Rajwinder White - Last Filed: 11/15/17 06:43> Clinical Impression: Abdominal pain, Hematuria, Cystitis Disposition: HOME SELF-CARE Condition: Good Instructions: Abdominal Pain (ED) Prescriptions: Ciprofloxacin HCl [Cipro] 500 mg PO Q12HR #14 tablet Referrals: Timmy Guevara MD [Primary Care Provider] - 1-2 days
[2017-11-15 03:59] LABS: Anisocytosis Slight; Basophils # (A) 0.1 k/uL (0-0.2); Basophils % (A) 1 %; Eosinophils # (A) 0.5 k/uL (0-0.7); Eosinophils % (A) 4 %; HCT 30.1 % (39.0-53.0); HGB 9.7 gm/dL (13.0-17.5); Lymphocytes # (A) 2.4 k/uL (1.0-4.8); Lymphocytes % (A) 20 %; MCH 33.6 pg (25.0-35.0); MCHC 32.3 g/dL (31.0-37.0); Macrocytosis Moderate; Mean Platelet Volume 8.1; Monocytes # (A) 1.2 k/uL (0-1.0); Monocytes % (A) 10 %; Neutrophils # (A) 7.5 k/uL (1.3-7.7); Neutrophils % (A) 62 %; RBC 2.89 m/uL (4.30-5.90); RDW 17.2 % (11.5-15.5); WBC 12.2 k/uL (3.8-10.6)
[2017-11-15 04:02] LABS: Platelet Count 150 k/uL (150-450)
[2017-11-15 04:04] LABS: Appearance,Urine Cloudy (Clear); Bacteria,Urine Rare /hpf; Bilirubin,Urine 1+ (Negative); Blood,Urine Large (Negative); Color,Urine Yellow; Glucose,Urine (UA) Negative (Negative); Hyaline Casts,Urine 31 /lpf (0-2); Ketones,Urine Trace (Negative); Leukocyte Esterase,Urine Small (Negative); Mucus,Urine Many /hpf; Nitrite,Urine Negative (Negative); Protein,Urine 1+ (Negative); RBC,Urine 166 /hpf (0-5); Specific Gravity,Urine 1.015 (1.001-1.035); WBC,Urine 13 /hpf (0-5)
[2017-11-15 04:10] LABS: ALT 30 U/L (21-72); AST 66 U/L (17-59); Albumin 3.8 g/dL (3.5-5.0); Alkaline Phosphatase 121 U/L (38-126); Amylase 62 U/L (30-110); Anion Gap 12 mmol/L; Blood Urea Nitrogen 12 mg/dL (9-20); Calcium 9.8 mg/dL (8.4-10.2); Carbon Dioxide 21 mmol/L (22-30); Chloride 110 mmol/L (98-107); Glucose 96 mg/dL (74-99); Lipase 363 U/L (23-300); Potassium 4.1 mmol/L (3.5-5.1); Sodium 143 mmol/L (137-145); Total Bilirubin 2.1 mg/dL (0.2-1.3); Total Protein 8.1 g/dL (6.3-8.2)
[2017-11-15 04:12] LABS: INR 1.6 (<1.2); Partial Thromboplastin Time 28.7 sec (22.0-30.0)
--- NOTE | 2017-11-15 05:20 | XR ---
INDICATION: Abdominal pain COMPARISON: KUB 10/18/17 FINDINGS: Upright views of the abdomen are provided. There is no evidence of free air. There has been prior cholecystectomy. Bowel gas pattern is nonobstructed. Regional skeleton appears intact. IMPRESSION: Nonobstructive bowel gas pattern.
[2017-11-15] MEDS ORDERED: MORPHINE SULFATE 2 MG/ML SYRINGE IVP STA (05:50)
[2017-11-15 06:07] VITALS: BP 133/68; PULSE 72; TEMP 97.8
== END 2017-11-15 06:54 | disposition home or self-care (01) ==
LOC: EC 03:08
DX: N30.90 Cystitis, unspecified without hematuria (principal); D64.9 Anemia, unspecified; F17.200 Nicotine dependence, unspecified, uncomplicated; Z86.14 Personal history of Methicillin resistant Staphylococcus aureus infection; Z79.899 Other long term (current) drug therapy; Z90.49 Acquired absence of other specified parts of digestive tract
CPT/HCPCS: 36415; 80053; 82150; 83690; 85025; 85610; 85730; 81001; 74018; 99284; 96374; 96375 ×2; 96376; 96361; J2405; J1885; J2270

== ENCOUNTER 2017-11-16 03:17 | Emergency (ER) | payer OTHER ==
[2017-11-16 04:16] LABS: Anisocytosis Slight; Basophils # (A) 0.1 k/uL (0-0.2); Basophils % (A) 1 %; Eosinophils # (A) 0.6 k/uL (0-0.7); Eosinophils % (A) 6 %; HCT 29.9 % (39.0-53.0); HGB 9.6 gm/dL (13.0-17.5); Lymphocytes # (A) 2.3 k/uL (1.0-4.8); Lymphocytes % (A) 24 %; MCH 33.2 pg (25.0-35.0); MCV 103.6 fL (80.0-100.0); Macrocytosis Moderate; Mean Platelet Volume 8.4; Monocytes # (A) 0.9 k/uL (0-1.0); Monocytes % (A) 9 %; Neutrophils # (A) 5.4 k/uL (1.3-7.7); Neutrophils % (A) 56 %; Platelet Count 131 k/uL (150-450); RBC 2.89 m/uL (4.30-5.90); RDW 17.4 % (11.5-15.5); WBC 9.7 k/uL (3.8-10.6)
--- NOTE | 2017-11-16 04:18 | XR ---
EXAM: XR Abdomen, 2 Views CLINICAL HISTORY: abdominal pain TECHNIQUE: Frontal view of the abdomen/pelvis with upright view of the abdomen. 11-15-17 FINDINGS: Intraperitoneal space: No free air. Gastrointestinal tract: Unremarkable. No dilation. There is the significant retained stool throughout the colon. Bones/joints: Unremarkable. IMPRESSION: Unremarkable bowel gas pattern. Significant retained stool throughout the colon
[2017-11-16] MEDS ORDERED: KETOROLAC 30 MG/ML 1 ML VIAL IVP STA (04:29)
[2017-11-16 04:38] LABS: ALT 31 U/L (21-72); AST 64 U/L (17-59); Albumin 3.5 g/dL (3.5-5.0); Alkaline Phosphatase 113 U/L (38-126); Amylase 62 U/L (30-110); Anion Gap 10 mmol/L; Blood Urea Nitrogen 10 mg/dL (9-20); Calcium 9.4 mg/dL (8.4-10.2); Carbon Dioxide 21 mmol/L (22-30); Chloride 110 mmol/L (98-107); Glucose 100 mg/dL (74-99); Lipase 479 U/L (23-300); Potassium 4.2 mmol/L (3.5-5.1); Sodium 141 mmol/L (137-145); Total Bilirubin 2.4 mg/dL (0.2-1.3); Total Protein 7.5 g/dL (6.3-8.2)
[2017-11-16 04:53] LABS: Alcohol 139 mg/dL
--- NOTE | 2017-11-16 04:55 | XR ---
EXAM: XR Right Hand Complete, 3 or More Views CLINICAL HISTORY: trauma TECHNIQUE: Frontal, lateral and oblique views of the right hand. COMPARISON: No relevant prior studies available. FINDINGS: Bones/joints: Unremarkable. No acute fracture. No dislocation. Soft tissues: Unremarkable. No radiopaque foreign body. IMPRESSION: Normal right hand x-rays.
[2017-11-16 05:07] LABS: Appearance,Urine Clear (Clear); Bacteria,Urine Rare /hpf; Bilirubin,Urine Negative (Negative); Blood,Urine Moderate (Negative); Color,Urine Yellow; Glucose,Urine (UA) Negative (Negative); Hyaline Casts,Urine 1 /lpf (0-2); Ketones,Urine Negative (Negative); Leukocyte Esterase,Urine Negative (Negative); Mucus,Urine Rare /hpf; Nitrite,Urine Negative (Negative); Protein,Urine Negative (Negative); RBC,Urine 83 /hpf (0-5); Specific Gravity,Urine 1.006 (1.001-1.035); Squamous Epithelial Cell,Urine <1 /hpf (0-4); WBC,Urine 1 /hpf (0-5)
[2017-11-16] MEDS ORDERED: TAMSULOSIN 0.4 MG CAP.ER.24H PO STA (05:30)
[2017-11-16] MEDS ORDERED: MORPHINE SULFATE 2 MG/ML SYRINGE IV STA (05:30)
--- NOTE | 2017-11-16 06:11 | ED ---
Abdominal Pain HPI - General Chief Complaint: Abdominal Pain Stated Complaint: Kidney stone Time Seen by Provider: 11/16/17 03:32 Source: patient Mode of arrival: ambulatory Limitations: no limitations - History of Present Illness Initial Comments: This patient is a 42-year-old man who presents with flank pain that he states similar previous kidney stone. He also states that he had seen some blood in the urine before coming in. MD Complaint: flank pain -: hour(s) Location: bilateral flank Radiation: none Migration to: no migration Severity: moderate Quality: aching, sharp Consistency: colicky Improves With: nothing Worsens With: nothing Associated Symptoms: hematuria - Related Data Home Medications Medication Instructions Recorded Confirmed Ferrous Sulfate [Iron (65 MG 325 mg PO DAILY@1200 09/01/17 09/01/17 Elemental)] Folic Acid 1 mg PO DAILY@1200 18 10/18/17 Previous Rx's Medication Instructions Recorded Multivitamins, Thera [Multivitamin 1 tab PO DAILY #30 tablet 09/03/17 (formulary)] Thiamine [Vitamin B-1] 100 mg PO DAILY #30 tablet 09/03/17 Furosemide [Lasix] 20 mg PO DAILY #10 tab 10/03/17 Ibuprofen [Motrin] 600 mg PO Q8HR PRN #20 tab 10/18/17 Ondansetron [Zofran] 4 mg PO Q8HR PRN #8 tab 10/18/17 Ciprofloxacin HCl [Cipro] 500 mg PO Q12HR #14 tablet 11/15/17 Tamsulosin [Flomax] 0.4 mg PO DAILY #14 cap 11/16/17 Allergies Allergy/AdvReac Type Severity Reaction Status Date / Time No Known Allergies Allergy Verified 11/16/17 03:26 Review of Systems ROS Statement: Those systems with pertinent positive or pertinent negative responses have been documented in the HPI. ROS Other: All systems not noted in ROS Statement are negative. Constitutional: Denies: fever, chills, weakness Respiratory: Denies: cough, dyspnea Cardiovascular: Denies: chest pain, edema, syncope Gastrointestinal: Reports: as per HPI, abdominal pain, nausea. Denies: vomiting Genitourinary: Reports: frequency, hematuria. Denies: dysuria Musculoskeletal: Denies: back pain Skin: Denies: rash Neurological: Denies: headache, weakness Past Medical History Past Medical History: Asthma, Liver Disease, Pneumonia Additional Past Medical History / Comment(s): ETOH abuse, liver cirrhosis, abdominal ascities, pancreatitis, multiple gallstones, nephrolithiasis, chronic anemia, resent hemoccult positive stool. History of Any Multi-Drug Resistant Organisms: MRSA Date of last positivie culture/infection: 12/09/2013 MDRO Source:: Right First Finger Past Surgical History: Appendectomy, Cholecystectomy, Orthopedic Surgery Additional Past Surgical History / Comment(s): 07/09/17 EGD/colonoscopy, paracentesis at [place] several months ago, right hand tendon repair, right knee arthroscopy, cystoscopy for kidney stone removal. Past Anesthesia/Blood Transfusion Reactions: No Reported Reaction Past Psychological History: PTSD Smoking Status: Current every day smoker Past Alcohol Use History: None Reported, Daily Past Drug Use History: Marijuana - Past Family History Mother Family Medical History: Hypertension Father Additional Family Medical History / Comment(s): Prostate issues. Brain aneurism. General Exam Limitations: no limitations General appearance: alert, in no apparent distress Head exam: Present: atraumatic, normocephalic Eye exam: Present: normal appearance. Absent: scleral icterus, conjunctival injection Respiratory exam: Present: normal lung sounds bilaterally. Absent: respiratory distress, wheezes, rales, rhonchi, stridor Cardiovascular Exam: Present: regular rate, normal rhythm, normal heart sounds. Absent: systolic murmur, diastolic murmur, rubs, gallop GI/Abdominal exam: Present: soft. Absent: distended, tenderness, guarding, rebound, rigid Extremities exam: Present: normal inspection, normal capillary refill. Absent: pedal edema, calf tenderness Back exam: Present: normal inspection, CVA tenderness (R), CVA tenderness (L). Absent: vertebral tenderness Neurological exam: Present: alert Skin exam: Present: warm, dry, intact, normal color. Absent: rash Course Vital Signs 11/16/17 11/16/17 03:22 06:20 Temperature 98.7 F 97.9 F Pulse Rate 90 78 Respiratory 18 17 Rate Blood Pressure 132/72 118/58 O2 Sat by Pulse 98 95 Oximetry Medical Decision Making - Lab Data Result diagrams: 11/16/17 03:55 11/16/17 03:55 Lab Results 07/03/18 07/03/18 07/03/18 Range/Units 03:55 03:55 03:55 WBC 9.7 (3.8-10.6) k/uL RBC 2.89 L (4.30-5.90) m/uL Hgb 9.6 L (13.0-17.5) gm/dL Hct 29.9 L (39.0-53.0) % MCV 103.6 H (80.0-100.0) fL MCH 33.2 (25.0-35.0) pg MCHC 32.0 (31.0-37.0) g/dL RDW 17.4 H (11.5-15.5) % Plt Count 131 L (150-450) k/uL Neutrophils % 56 % Lymphocytes % 24 % Monocytes % 9 % Eosinophils % 6 % Basophils % 1 % Neutrophils # 5.4 (1.3-7.7) k/uL Lymphocytes # 2.3 (1.0-4.8) k/uL Monocytes # 0.9 (0-1.0) k/uL Eosinophils # 0.6 (0-0.7) k/uL Basophils # 0.1 (0-0.2) k/uL Anisocytosis Slight Macrocytosis Moderate Sodium 141 (137-145) mmol/L Potassium 4.2 (3.5-5.1) mmol/L Chloride 110 H (98-107) mmol/L Carbon Dioxide 21 L (22-30) mmol/L Anion Gap 10 mmol/L BUN 10 (9-20) mg/dL Creatinine 0.60 L (0.66-1.25) mg/dL Est GFR (CKD-EPI)AfAm >90 (>60 ml/min/1.73 sqM) Est GFR (CKD-EPI)NonAf >90 (>60 ml/min/1.73 sqM) Glucose 100 H (74-99) mg/dL Calcium 9.4 (8.4-10.2) mg/dL Total Bilirubin 2.4 H (0.2-1.3) mg/dL AST 64 H (17-59) U/L ALT 31 (21-72) U/L Alkaline Phosphatase 113 (38-126) U/L Total Protein 7.5 (6.3-8.2) g/dL Albumin 3.5 (3.5-5.0) g/dL Amylase 62 (30-110) U/L Lipase 479 H (23-300) U/L Urine Color Yellow Urine Appearance Clear (Clear) Urine pH 7.0 (5.0-8.0) Ur Specific [place] 1.006 (1.001-1.035) Urine Protein Negative (Negative) Urine Glucose (UA) Negative (Negative) Urine Ketones Negative (Negative) Urine Blood Moderate H (Negative) Urine Nitrite Negative (Negative) Urine Bilirubin Negative (Negative) Urine Urobilinogen 6.0 (<2.0) mg/dL Ur Leukocyte Esterase Negative (Negative) Urine RBC 83 H (0-5) /hpf Urine WBC 1 (0-5) /hpf Ur Squamous Epith Cells <1 (0-4) /hpf Urine Bacteria Rare H (None) /hpf Hyaline Casts 1 (0-2) /lpf Urine Mucus Rare H (None) /hpf Serum Alcohol 139 mg/dL Disposition Clinical Impression: Chronic abdominal pain, Alcoholic pancreatitis, Alcohol abuse Disposition: HOME SELF-CARE Condition: Fair Instructions: Abdominal Pain (ED) Prescriptions: Tamsulosin [Flomax] 0.4 mg PO DAILY #14 cap Is patient prescribed a controlled substance at d/c from ED?: No Referrals: Timmy Guevara MD [Primary Care Provider] - 1-2 days
[2017-11-16 06:22] VITALS: BP 118/58; PULSE 78; RESP 17; TEMP 97.9
== END 2017-11-16 06:23 | disposition home or self-care (01) ==
LOC: EC 03:17
DX: K85.20 Alcohol induced acute pancreatitis without necrosis or infection (principal); F10.10 Alcohol abuse, uncomplicated; G89.29 Other chronic pain; R31.9 Hematuria, unspecified; D64.9 Anemia, unspecified; F17.200 Nicotine dependence, unspecified, uncomplicated; Z79.899 Other long term (current) drug therapy; Z86.14 Personal history of Methicillin resistant Staphylococcus aureus infection; Z90.49 Acquired absence of other specified parts of digestive tract
CPT/HCPCS: 36415; 80053; 82150; 83690; 85025; 81001; 80320; 73130; 74018; 99284; 96374; 96375; J1885; J2270

== ENCOUNTER 2017-11-19 19:50 | Inpatient (IN) | payer OTHER ==
[2017-11-19] MEDS ORDERED: PANTOPRAZOLE 40 MG/10 ML VIAL IVP STA (20:17)
[2017-11-19] MEDS ORDERED: SODIUM CHLORIDE 0.9% 1,000 ML IV STA ×2 (20:17)
[2017-11-19] MEDS ORDERED: ONDANSETRON 4 MG/2 ML VIAL IM STA (20:17)
[2017-11-19] MEDS ORDERED: MORPHINE SULFATE 2 MG/ML SYRINGE IVP STA (20:19)
--- NOTE | 2017-11-19 20:25 | ED ---
GI Bleed HPI - General Chief complaint: GI Bleed Stated complaint: GI Bleed Time Seen by Provider: 11/19/17 19:52 Source: patient Mode of arrival: EMS Limitations: no limitations - History of Present Illness Initial comments: Patient is a 42-year-old male presenting for GI bleeding. He states that he said extensive history of alcohol abuse as well as NSAID abuse in that this afternoon around 12:30 PM, he vomited once. After then he continued to have worsening vomiting and noted that there was dark black like vomit with some red in it which she assumed was blood. Later on in the day, he also had a bowel movement which is described as a black tarry stool. He has been having abdominal pain that also started today and feels a constant stabbing sensation diffusely throughout his abdomen. The pain does not radiate on neuro or no modifying factors. He also denies any chest pain but admits to shortness breath. He denies any fevers or chills and also denies taking any blood thinners including aspirin. - Related Data Home Medications Medication Instructions Recorded Confirmed Folic Acid 1 mg PO DAILY@1200 09/01/17 11/19/17 Previous Rx's Medication Instructions Recorded Multivitamins, Thera [Multivitamin 1 tab PO DAILY #30 tablet 09/03/17 (formulary)] Thiamine [Vitamin B-1] 100 mg PO DAILY #30 tablet 09/03/17 Furosemide [Lasix] 20 mg PO DAILY #10 tab 10/03/17 Ibuprofen [Motrin] 600 mg PO Q8HR PRN #20 tab 10/18/17 Tamsulosin [Flomax] 0.4 mg PO DAILY #14 cap 11/16/17 Allergies Allergy/AdvReac Type Severity Reaction Status Date / Time No Known Allergies Allergy Verified 11/19/17 20:22 Review of Systems ROS Statement: Those systems with pertinent positive or pertinent negative responses have been documented in the HPI. Constitutional: Negative for chills, and fever.positive for fatigue HENT: Negative for congestion. Respiratory: Negative for chest tightness, and wheezing. Negative for cough. Positive for shortness of breath Cardiovascular: Negative for chest pain and palpitations. Gastrointestinal: Positive for abdominal pain. Negative for abdominal distention , diarrhea, positive for nausea and vomiting. Genitourinary: Negative for dysuria. Musculoskeletal: Negative for back pain, neck pain and neck stiffness. Skin: Negative for color change. Neurological: Negative for dizziness, speech difficulty, weakness and light- headedness. Psychiatric/Behavioral: Negative for agitation and confusion. Negative for anxiety ROS Other: All systems not noted in ROS Statement are negative. Past Medical History Past Medical History: Asthma, Liver Disease, Pneumonia Additional Past Medical History / Comment(s): ETOH abuse, liver cirrhosis, abdominal ascities, pancreatitis, multiple gallstones, nephrolithiasis, chronic anemia, resent hemoccult positive stool. History of Any Multi-Drug Resistant Organisms: MRSA Date of last positivie culture/infection: 12/09/2013 MDRO Source:: Right First Finger Past Surgical History: Appendectomy, Cholecystectomy, Orthopedic Surgery Additional Past Surgical History / Comment(s): 07/09/17 EGD/colonoscopy, paracentesis at [facility] several months ago, right hand tendon repair, right knee arthroscopy, cystoscopy for kidney stone removal. Past Anesthesia/Blood Transfusion Reactions: No Reported Reaction Past Psychological History: PTSD Smoking Status: Current every day smoker Past Alcohol Use History: Occasional Past Drug Use History: Marijuana - Past Family History Mother Family Medical History: Hypertension Father Additional Family Medical History / Comment(s): Prostate issues. Brain aneurism. General Exam - General Exam Comments Initial Comments: Constitutional: Pt is oriented to person, place, and time. Pt appears well- developed and well-nourished. No distress. HENT: Head: Normocephalic and atraumatic. Eyes: EOM are normal. Neck: Normal range of motion. Neck supple. Cardiovascular: Normal rate, regular rhythm, S1 normal, S2 normal and normal heart sounds. Exam reveals no gallop and no friction rub. No murmur heard. Pulmonary/Chest: Effort normal and breath sounds normal. No tachypnea and no bradypnea. No respiratory distress. No wheezes or rales noted. Abdominal: Soft. Bowel sounds are normal. Pt exhibits no shifting dullness, no distension, no pulsatile liver, no fluid wave, no abdominal bruit and no ascites. There is no tenderness. There is no rigidity, no rebound, no guarding, no tenderness at McBurney's point and negative Talamantes's sign. Musculoskeletal: Normal range of motion. Neurological: Pt is alert and oriented to person, place, and time. No cranial nerve deficit. Skin: Skin is warm and dry. No rash noted. Pt is not diaphoretic. No erythema. No pallor. Psychiatric: Pt has a normal mood and affect. Pt behavior is normal. Thought content normal. Limitations: no limitations Course Vital Signs 11/19/17 19:52 Temperature 97.9 F Pulse Rate 89 Respiratory 18 Rate Blood Pressure 124/58 O2 Sat by Pulse 100 Oximetry Medical Decision Making - Medical Decision Making Laboratory studies showed that there was a drop in hemoglobin from 9.6 measured on November 16 to 7.2. Therefore patient was transfused 1 unit of packed red blood cells. Additionally, there is no evidence of significant pancreatitis or electrolyte derangements. There is also no evidence of significant transaminitis and after chart review, it looks like the patient had been possibly workup for esophageal varices and ulcers. Therefore, the patient was started on Protonix as well as an octreotide drip. Cardiac evaluation was also negative in that troponin was negative and chest x-ray showed mild nuchal right- sided atelectasis but no evidence of infiltrate. Because of the patient's symptoms and lab findings, the patient will be admitted to hospital. He was also noted to be hemodynamically stable and therefore not requiring ICU placement.Explained all labs and diagnostic test results and that we will admit patient to hospital. Pt is agreeable to plan and case has been discussed with Dr. Akins and they agree to accept the pt. - Lab Data Result diagrams: 11/19/17 19:55 11/19/17 19:55 Lab Results 11/19/17 11/19/17 11/19/17 Range/Units 19:55 19:55 19:55 WBC 9.4 (3.8-10.6) k/uL RBC 2.15 L (4.30-5.90) m/uL Hgb 7.2 L D (13.0-17.5) gm/dL Hct 22.7 L (39.0-53.0) % MCV 105.5 H (80.0-100.0) fL MCH 33.5 (25.0-35.0) pg MCHC 31.8 (31.0-37.0) g/dL RDW 17.6 H (11.5-15.5) % Plt Count 132 L (150-450) k/uL Neutrophils % 63 % Lymphocytes % 21 % Monocytes % 10 % Eosinophils % 2 % Basophils % 1 % Neutrophils # 5.9 (1.3-7.7) k/uL Lymphocytes # 1.9 (1.0-4.8) k/uL Monocytes # 0.9 (0-1.0) k/uL Eosinophils # 0.2 (0-0.7) k/uL Basophils # 0.1 (0-0.2) k/uL Anisocytosis Slight Macrocytosis Marked PT 16.1 H (9.0-12.0) sec INR 1.8 H (<1.2) APTT 25.8 (22.0-30.0) sec Sodium 141 (137-145) mmol/L Potassium 4.7 (3.5-5.1) mmol/L Chloride 110 H (98-107) mmol/L Carbon Dioxide 21 L (22-30) mmol/L Anion Gap 10 mmol/L BUN 37 H (9-20) mg/dL Creatinine 0.64 L (0.66-1.25) mg/dL Est GFR (CKD-EPI)AfAm >90 (>60 ml/min/1.73 sqM) Est GFR (CKD-EPI)NonAf >90 (>60 ml/min/1.73 sqM) Glucose 111 H (74-99) mg/dL Plasma Lactic Acid Balaji (0.7-2.0) mmol/L Calcium 9.1 (8.4-10.2) mg/dL Magnesium 1.7 (1.6-2.3) mg/dL Total Bilirubin 4.9 H (0.2-1.3) mg/dL AST 49 (17-59) U/L ALT 28 (21-72) U/L Alkaline Phosphatase 66 (38-126) U/L Troponin I (0.000-0.034) ng/mL Total Protein 6.8 (6.3-8.2) g/dL Albumin 3.2 L (3.5-5.0) g/dL Lipase 352 H (23-300) U/L Gastric Occult Blood (Negative) 11/19/17 11/19/17 11/19/17 Range/Units 19:55 19:55 20:27 WBC (3.8-10.6) k/uL RBC (4.30-5.90) m/uL Hgb (13.0-17.5) gm/dL Hct (39.0-53.0) % MCV (80.0-100.0) fL MCH (25.0-35.0) pg MCHC (31.0-37.0) g/dL RDW (11.5-15.5) % Plt Count (150-450) k/uL Neutrophils % % Lymphocytes % % Monocytes % % Eosinophils % % Basophils % % Neutrophils # (1.3-7.7) k/uL Lymphocytes # (1.0-4.8) k/uL Monocytes # (0-1.0) k/uL Eosinophils # (0-0.7) k/uL Basophils # (0-0.2) k/uL Anisocytosis Macrocytosis PT (9.0-12.0) sec INR (<1.2) APTT (22.0-30.0) sec Sodium (137-145) mmol/L Potassium (3.5-5.1) mmol/L Chloride (98-107) mmol/L Carbon Dioxide (22-30) mmol/L Anion Gap mmol/L BUN (9-20) mg/dL Creatinine (0.66-1.25) mg/dL Est GFR (CKD-EPI)AfAm (>60 ml/min/1.73 sqM) Est GFR (CKD-EPI)NonAf (>60 ml/min/1.73 sqM) Glucose (74-99) mg/dL Plasma Lactic Acid Balaji 1.7 (0.7-2.0) mmol/L Calcium (8.4-10.2) mg/dL Magnesium (1.6-2.3) mg/dL Total Bilirubin (0.2-1.3) mg/dL AST (17-59) U/L ALT (21-72) U/L Alkaline Phosphatase (38-126) U/L Troponin I <0.012 (0.000-0.034) ng/mL Total Protein (6.3-8.2) g/dL Albumin (3.5-5.0) g/dL Lipase (23-300) U/L Gastric Occult Blood Positive (Negative) Disposition Clinical Impression: GI bleed, Hematemesis, Anemia Disposition: ADMITTED IP TO THIS HOSP Condition: Fair Instructions: Gastrointestinal Bleeding (ED) Referrals: Timmy Guevara MD [Primary Care Provider] - 1-2 days Decision to Admit Reason: Admit from EC Decision Date: 11/19/17 Decision Time: 21:57
[2017-11-19 20:34] LABS: Anisocytosis Slight; Basophils # (A) 0.1 k/uL (0-0.2); Basophils % (A) 1 %; Eosinophils # (A) 0.2 k/uL (0-0.7); Eosinophils % (A) 2 %; HCT 22.7 % (39.0-53.0); Lymphocytes # (A) 1.9 k/uL (1.0-4.8); Lymphocytes % (A) 21 %; MCH 33.5 pg (25.0-35.0); MCHC 31.8 g/dL (31.0-37.0); MCV 105.5 fL (80.0-100.0); Macrocytosis Marked; Mean Platelet Volume 8.5; Monocytes # (A) 0.9 k/uL (0-1.0); Monocytes % (A) 10 %; Neutrophils # (A) 5.9 k/uL (1.3-7.7); Neutrophils % (A) 63 %; Platelet Count 132 k/uL (150-450); RBC 2.15 m/uL (4.30-5.90); RDW 17.6 % (11.5-15.5); WBC 9.4 k/uL (3.8-10.6)
[2017-11-19 20:36] LABS: HGB 7.2 gm/dL (13.0-17.5)
[2017-11-19 20:41] LABS: INR 1.8 (<1.2); Partial Thromboplastin Time 25.8 sec (22.0-30.0); Prothrombin Time 16.1 sec (9.0-12.0)
[2017-11-19 20:42] LABS: ALT 28 U/L (21-72); AST 49 U/L (17-59); Albumin 3.2 g/dL (3.5-5.0); Alkaline Phosphatase 66 U/L (38-126); Anion Gap 10 mmol/L; Blood Urea Nitrogen 37 mg/dL (9-20); Calcium 9.1 mg/dL (8.4-10.2); Carbon Dioxide 21 mmol/L (22-30); Chloride 110 mmol/L (98-107); Glucose 111 mg/dL (74-99); Lipase 352 U/L (23-300); Magnesium 1.7 mg/dL (1.6-2.3); Potassium 4.7 mmol/L (3.5-5.1); Sodium 141 mmol/L (137-145); Total Bilirubin 4.9 mg/dL (0.2-1.3); Total Protein 6.8 g/dL (6.3-8.2)
[2017-11-19] MEDS ORDERED: ONDANSETRON 4 MG/2 ML VIAL IVP STA (20:46)
[2017-11-19] MEDS ORDERED: OCTREOTIDE 200 MCG in SODIUM CHLORIDE 0.9% 100 ML IV STA (21:23)
--- NOTE | 2017-11-19 21:36 | XR ---
EXAMINATION TYPE: XR chest 2V DATE OF EXAM: 11/19/2017 COMPARISON: 08/17/2017 HISTORY: Abdominal pain TECHNIQUE: Frontal and lateral views of the chest are obtained. FINDINGS: Heart and mediastinum are normal. There is small linear density at the lateral right lung base. The other lung silva are clear. There is no pleural effusion. Bony thorax is intact. IMPRESSION: There is new atelectasis at the right lung base compared to old exam. Normal heart.
[2017-11-19] MEDS ORDERED: ONDANSETRON 4 MG/2 ML VIAL IVP PRN (21:59)
[2017-11-19] MEDS ORDERED: NALOXONE 0.4 MG/ML 1 ML VIAL IV PRN (21:59)
--- NOTE | 2017-11-19 22:07 | ED ---
Medical Decision Making - Lab Data Result diagrams: 11/19/17 19:55 11/19/17 19:55 Lab Results 11/19/17 11/19/17 11/19/17 Range/Units 19:55 19:55 19:55 WBC 9.4 (3.8-10.6) k/uL RBC 2.15 L (4.30-5.90) m/uL Hgb 7.2 L D (13.0-17.5) gm/dL Hct 22.7 L (39.0-53.0) % MCV 105.5 H (80.0-100.0) fL MCH 33.5 (25.0-35.0) pg MCHC 31.8 (31.0-37.0) g/dL RDW 17.6 H (11.5-15.5) % Plt Count 132 L (150-450) k/uL Neutrophils % 63 % Lymphocytes % 21 % Monocytes % 10 % Eosinophils % 2 % Basophils % 1 % Neutrophils # 5.9 (1.3-7.7) k/uL Lymphocytes # 1.9 (1.0-4.8) k/uL Monocytes # 0.9 (0-1.0) k/uL Eosinophils # 0.2 (0-0.7) k/uL Basophils # 0.1 (0-0.2) k/uL Anisocytosis Slight Macrocytosis Marked PT 16.1 H (9.0-12.0) sec INR 1.8 H (<1.2) APTT 25.8 (22.0-30.0) sec Sodium 141 (137-145) mmol/L Potassium 4.7 (3.5-5.1) mmol/L Chloride 110 H (98-107) mmol/L Carbon Dioxide 21 L (22-30) mmol/L Anion Gap 10 mmol/L BUN 37 H (9-20) mg/dL Creatinine 0.64 L (0.66-1.25) mg/dL Est GFR (CKD-EPI)AfAm >90 (>60 ml/min/1.73 sqM) Est GFR (CKD-EPI)NonAf >90 (>60 ml/min/1.73 sqM) Glucose 111 H (74-99) mg/dL Plasma Lactic Acid Balaji (0.7-2.0) mmol/L Calcium 9.1 (8.4-10.2) mg/dL Magnesium 1.7 (1.6-2.3) mg/dL Total Bilirubin 4.9 H (0.2-1.3) mg/dL AST 49 (17-59) U/L ALT 28 (21-72) U/L Alkaline Phosphatase 66 (38-126) U/L Troponin I (0.000-0.034) ng/mL Total Protein 6.8 (6.3-8.2) g/dL Albumin 3.2 L (3.5-5.0) g/dL Lipase 352 H (23-300) U/L Gastric Occult Blood (Negative) 11/19/17 11/19/17 11/19/17 Range/Units 19:55 19:55 20:27 WBC (3.8-10.6) k/uL RBC (4.30-5.90) m/uL Hgb (13.0-17.5) gm/dL Hct (39.0-53.0) % MCV (80.0-100.0) fL MCH (25.0-35.0) pg MCHC (31.0-37.0) g/dL RDW (11.5-15.5) % Plt Count (150-450) k/uL Neutrophils % % Lymphocytes % % Monocytes % % Eosinophils % % Basophils % % Neutrophils # (1.3-7.7) k/uL Lymphocytes # (1.0-4.8) k/uL Monocytes # (0-1.0) k/uL Eosinophils # (0-0.7) k/uL Basophils # (0-0.2) k/uL Anisocytosis Macrocytosis PT (9.0-12.0) sec INR (<1.2) APTT (22.0-30.0) sec Sodium (137-145) mmol/L Potassium (3.5-5.1) mmol/L Chloride (98-107) mmol/L Carbon Dioxide (22-30) mmol/L Anion Gap mmol/L BUN (9-20) mg/dL Creatinine (0.66-1.25) mg/dL Est GFR (CKD-EPI)AfAm (>60 ml/min/1.73 sqM) Est GFR (CKD-EPI)NonAf (>60 ml/min/1.73 sqM) Glucose (74-99) mg/dL Plasma Lactic Acid Balaji 1.7 (0.7-2.0) mmol/L Calcium (8.4-10.2) mg/dL Magnesium (1.6-2.3) mg/dL Total Bilirubin (0.2-1.3) mg/dL AST (17-59) U/L ALT (21-72) U/L Alkaline Phosphatase (38-126) U/L Troponin I <0.012 (0.000-0.034) ng/mL Total Protein (6.3-8.2) g/dL Albumin (3.5-5.0) g/dL Lipase (23-300) U/L Gastric Occult Blood Positive (Negative) - EKG Data EKG Comments: EKG shows normal sinus rhythm with a rate of 67 bpm ND interval 1:30, QRS 88, QTC 460. There is no significant ST depressions or elevations noted Disposition Clinical Impression: GI bleed, Hematemesis, Anemia Disposition: ADMITTED IP TO THIS [facility] Condition: Fair Instructions: Gastrointestinal Bleeding (ED) Referrals: Timmy Guevara MD [Primary Care Provider] - 1-2 days Time of Disposition: 22:07 Decision to Admit Reason: Admit from EC Decision Date: 11/19/17
[2017-11-19 23:01] LABS: Glucose,Whole Blood 124 mg/dL (75-99)
[2017-11-20 01:21] VITALS: BMI 23.4
[2017-11-20] MEDS: OCTREOTIDE 200 MCG in SODIUM CHLORIDE 0.9% 100 ML IV SCH ×3 (04:25→20:30)
[2017-11-20 04:49] LABS: Anion Gap 10 mmol/L; Blood Urea Nitrogen 33 mg/dL (9-20); Calcium 8.5 mg/dL (8.4-10.2); Carbon Dioxide 18 mmol/L (22-30); Chloride 116 mmol/L (98-107); Glucose 114 mg/dL (74-99); Magnesium 1.7 mg/dL (1.6-2.3); Potassium 4.3 mmol/L (3.5-5.1); Sodium 144 mmol/L (137-145)
[2017-11-20 05:00] LABS: Anisocytosis Slight; Basophils # (A) 0.1 k/uL (0-0.2); Basophils % (A) 1 %; Eosinophils # (A) 0.2 k/uL (0-0.7); Eosinophils % (A) 4 %; HGB 7.3 gm/dL (13.0-17.5); Hypochromasia Slight; Lymphocytes # (A) 1.6 k/uL (1.0-4.8); Lymphocytes % (A) 24 %; MCH 32.6 pg (25.0-35.0); MCHC 31.9 g/dL (31.0-37.0); Mean Platelet Volume 9.2; Monocytes # (A) 0.7 k/uL (0-1.0); Monocytes % (A) 10 %; Neutrophils # (A) 3.8 k/uL (1.3-7.7); Neutrophils % (A) 59 %; RBC 2.25 m/uL (4.30-5.90); RDW 18.7 % (11.5-15.5); WBC 6.4 k/uL (3.8-10.6)
[2017-11-20] MEDS ORDERED: Magnesium Replacement Protocol 1 EACH MISC MISCELLANE PRN (05:37)
[2017-11-20 05:43] LABS: Platelet Count 84 k/uL (150-450)
[2017-11-20 05:44] LABS: Macrocytosis Moderate; Poikilocytosis (M) Present
[2017-11-20] MEDS: MAGNESIUM SULFATE-D5W PMX 1 GM in DEXTROSE/WATER 1 100ML.BAG IVPB SCH ×2 (06:01→07:06)
[2017-11-20] MEDS ORDERED: MORPHINE SULFATE 2 MG/ML SYRINGE IVP PRN (06:46)
[2017-11-20] MEDS ORDERED: ONDANSETRON 4 MG/2 ML VIAL IVP PRN (08:37)
--- NOTE | 2017-11-20 08:47 | P.CNPUL ---
History of Present Illness Consult date: 11/20/17 Reason for consult: other Chief complaint: GI bleed, anemia History of present illness: Pulmonary consult dated 11/20/2017 42-year-old male presenting with GI bleed. He apparently has history of alcoholic liver disease and alcoholic cirrhosis with esophageal varices. The patient also has a history of nonsteroidal anti-inflammatory drug abuse. Apparently came into the emergency room vomiting up blood. The blood was dark in color. He also apparently was having some black tarry stools. He was also having some abdominal pain with nausea. The patient was started on octreotide in the emergency department and was going to be admitted to the sixth floor but apparently because of the octreotide drip, the patient had to come to the ICU. Anyway, the patient is currently very stable this time. The patient is not receiving any supplemental oxygen. The patient's on octreotide at 25 mics per minute. Also getting a saline IV at 75 mL an hour. Received 1 unit of packed red blood cells. Hemodynamic and respiratory status is are stable. Hemoglobin is 7.3. He does have a history of asthma liver disease secondary to alcohol abuse and pneumonia. He also has a history of abdominal ascites pancreatitis multiple gallstones kidney stones chronic anemia and GI bleed. In addition, he has a history of MRSA infection in the past and multiple surgical and orthopedic procedures. He is a current every day smoker and does use marijuana as well. He continues to drink alcohol. Review of Systems A 12 point review of system is positive for GI bleeding. He had hematemesis and black tarry stools. He also had abdominal pain with nausea. Past Medical History Past Medical History: Asthma, Liver Disease, Pneumonia Additional Past Medical History / Comment(s): ETOH abuse, liver cirrhosis, abdominal ascities, pancreatitis, multiple gallstones, nephrolithiasis, chronic anemia. History of Any Multi-Drug Resistant Organisms: MRSA Date of last positivie culture/infection: 12/09/2013 MDRO Source:: Right First Finger Past Surgical History: Appendectomy, Cholecystectomy, Orthopedic Surgery Additional Past Surgical History / Comment(s): 07/09/17 EGD/colonoscopy, paracentesis at [place] several months ago, right hand tendon repair, right knee arthroscopy, cystoscopy for kidney stone removal. Past Anesthesia/Blood Transfusion Reactions: No Reported Reaction Past Psychological History: PTSD Additional Psychological History / Comment(s): Pt lives in his apartment. His girlfriend and her son are usually there with him. He does not drive, he gets to appts by his girlfriend, family or bus. 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 Smoking Status: Current every day smoker Past Alcohol Use History: Occasional Additional Past Alcohol Use History / Comment(s): Pt states he started smoking in 1983 and is a ppd smoker. PT states reduced the amount of alcohol to a few days a week, drinking 2-3 drinks on those occasions. Pt states used to drink a fifth or 1/2 gallon and some beers daily. Past Drug Use History: Marijuana Additional Drug Use History / Comment(s): Pt states he smokes marijuana on occasion. - Past Family History Mother Family Medical History: Hypertension Father Additional Family Medical History / Comment(s): Prostate issues. Brain aneurism. Medications and Allergies Home Medications Medication Instructions Recorded Confirmed Type Folic Acid 1 mg PO DAILY@1200 09/01/17 11/19/17 History Multivitamins, Thera [Multivitamin 1 tab PO DAILY #30 tablet 09/03/17 11/19/17 Rx (formulary)] Thiamine [Vitamin B-1] 100 mg PO DAILY #30 tablet 09/03/17 11/19/17 Rx Furosemide [Lasix] 20 mg PO DAILY #10 tab 10/03/17 11/19/17 Rx Ibuprofen [Motrin] 600 mg PO Q8HR PRN #20 tab 10/18/17 11/19/17 Rx Tamsulosin [Flomax] 0.4 mg PO DAILY #14 cap 11/16/17 11/19/17 Rx Allergies Allergy/AdvReac Type Severity Reaction Status Date / Time No Known Allergies Allergy Verified 11/19/17 20:22 Physical Exam Osteopathic Statement: *. No significant issues noted on an osteopathic structural exam other than those noted in the History and Physical/Consult. Vitals: Vital Signs Temp Pulse Resp BP Pulse Ox 11/20/17 07:00 61 13 108/56 97 11/20/17 06:00 70 18 110/58 97 11/20/17 05:00 62 14 114/60 96 11/20/17 04:00 98.2 F 60 19 109/59 96 11/20/17 03:04 98.1 F 70 15 115/62 98 11/20/17 03:00 62 17 107/57 99 11/20/17 02:00 64 15 118/57 98 11/20/17 01:39 98.2 F 66 17 107/53 98 11/20/17 01:09 98.1 F 62 17 118/57 99 11/20/17 01:00 62 15 123/65 99 11/20/17 00:59 98.5 F 66 15 123/65 100 11/20/17 00:00 68 15 109/56 96 11/19/17 23:30 98.4 F 61 18 126/64 100 11/19/17 22:31 0/0 11/19/17 22:06 71 18 116/64 100 11/19/17 19:52 97.9 F 89 18 124/58 100 Intake and Output 11/19/17 11/20/17 11/20/17 22:59 06:59 14:59 Intake Total 1233.2 75 Output Total 1300 0 Balance -66.8 75 Intake: IV 613.2 75 Octreotide 200 mcg In 88.2 75 Sodium Chloride 0.9% 100 ml @ 25 MCG/HR 12.62 mls/ hr IV .Q8H1M [facility] Rx#: [id number] Sodium Chloride 0.9% 1, 525 000 ml @ 75 mls/hr IV . [id number] [facility] Rx#:[id number] Blood Product 620 Rc As-1 Unit 310 [id number] Output: Urine 1300 0 Other: Voiding Method Urinal Weight 78.4 kg 78.4 kg No acute distress, oriented 3. HEENT examination is grossly unremarkable. Mucous membranes are moist. No oral lesions. Neck supple. Full range of motion. No adenopathy thyromegaly or neck vein distention. Cardiovascular examination reveals regular rhythm rate. S1-S2 normal. No S3 or S4. No discernible murmur noted. Lungs reveal clear breath sounds. His breath sounds are equal bilaterally. No adventitious lung sounds including wheezes rhonchi or crackles. Abdomen soft bowel sounds are heard. No masses or tenderness. Extremities are intact. No cyanosis clubbing or edema. Skin is without rash or lesion. Neurologic examination is brief but nonfocal. Results - Laboratory Findings CBC and BMP: 11/20/17 04:06 11/20/17 04:06 PT/INR, D-dimer PT 16.1 sec (9.0-12.0) H 11/19/17 19:55 INR 1.8 (<1.2) H 11/19/17 19:55 Abnormal lab findings: Abnormal Labs 11/19/17 11/19/17 11/19/17 19:55 19:55 19:55 RBC 2.15 L Hgb 7.2 L D Hct 22.7 L MCV 105.5 H RDW 17.6 H Plt Count 132 L PT 16.1 H INR 1.8 H Chloride 110 H Carbon Dioxide 21 L BUN 37 H Creatinine 0.64 L Glucose 111 H POC Glucose (mg/dL) Total Bilirubin 4.9 H Albumin 3.2 L Lipase 352 H Crossmatch 11/19/17 11/19/17 11/20/17 19:55 22:59 04:06 RBC 2.25 L Hgb 7.3 L Hct 23.0 L MCV 102.0 H RDW 18.7 H Plt Count 84 L PT INR Chloride Carbon Dioxide BUN Creatinine Glucose POC Glucose (mg/dL) 124 H Total Bilirubin Albumin Lipase Crossmatch See Detail 11/20/17 04:06 RBC Hgb Hct MCV RDW Plt Count PT INR Chloride 116 H Carbon Dioxide 18 L BUN 33 H Creatinine Glucose 114 H POC Glucose (mg/dL) Total Bilirubin Albumin Lipase Crossmatch - Diagnostic Findings Chest x-ray: report reviewed (Labs x-rays and medications are all reviewed.), image reviewed Assessment and Plan Assessment: Assessment Acute gastrointestinal bleed, secondary to esophageal varices possible esophagitis and gastritis and chronic liver disease and alcoholic cirrhosis History of alcohol abuse Ongoing tobacco use and addiction Alcoholic liver cirrhosis Abdominal ascites Chronic anemia Kidney stones Multiple gallstones Alcohol induced pancreatitis Previous history of MRSA infection History of marijuana use History of NSAID abuse Plan: Plan dated 11/20/2017 The patient's white count is 6.4 hemoglobin 7.3 hematocrit 23.0 and platelet count 84,000. The patient did receive 1 unit of PRBCs. The patient remains on octreotide at 25 g. Sodium-potassium normal. Chlorides 116 with a CO2 of 18. The anion gap is normal. These electrolytes are consistent with a hyperchloremic non-anion gap metabolic acidosis. Currently the patient is very stable. No additional recommendations are made. We'll continue to follow. GI has been consulted. We'll continue to monitor the hemoglobin. Medications are reviewed. Time with Patient: Greater than 30
[2017-11-20] MEDS: PANTOPRAZOLE 40 MG/10 ML VIAL IV SCH (09:03)
[2017-11-20 10:35] LABS: Anisocytosis Slight; Basophils # (A) 0.1 k/uL (0-0.2); Basophils % (A) 2 %; Eosinophils # (A) 0.4 k/uL (0-0.7); Eosinophils % (A) 5 %; HCT 21.7 % (39.0-53.0); Hypochromasia Slight; Lymphocytes # (A) 2.3 k/uL (1.0-4.8); Lymphocytes % (A) 32 %; MCHC 31.3 g/dL (31.0-37.0); MCV 105.3 fL (80.0-100.0); Macrocytosis Marked; Mean Platelet Volume 8.3; Monocytes # (A) 0.6 k/uL (0-1.0); Monocytes % (A) 8 %; Neutrophils # (A) 3.5 k/uL (1.3-7.7); Neutrophils % (A) 50 %; RBC 2.06 m/uL (4.30-5.90); RDW 19.3 % (11.5-15.5); WBC 7.1 k/uL (3.8-10.6)
[2017-11-20 10:43] LABS: HGB 6.8 gm/dL (13.0-17.5); Platelet Count 98 k/uL (150-450)
[2017-11-20 11:31] LABS: Target Cells Present
[2017-11-20] MEDS: MORPHINE SULFATE 2 MG/ML SYRINGE IVP PRN ×3 (11:55→20:33)
[2017-11-20 14:41] LABS: Hemoglobin A1C 4.4 % (4.0-6.0)
[2017-11-20] MEDS ORDERED: LORazepam 2 MG/ML INJ IV PRN ×3 (15:59)
[2017-11-20 16:39] LABS: Anisocytosis Slight; Basophils # (A) 0.1 k/uL (0-0.2); Basophils % (A) 1 %; Eosinophils # (A) 0.6 k/uL (0-0.7); Eosinophils % (A) 7 %; HCT 22.8 % (39.0-53.0); HGB 7.1 gm/dL (13.0-17.5); Hypochromasia Moderate; Lymphocytes # (A) 2.8 k/uL (1.0-4.8); Lymphocytes % (A) 32 %; MCH 32.8 pg (25.0-35.0); MCHC 31.1 g/dL (31.0-37.0); MCV 105.5 fL (80.0-100.0); Macrocytosis Marked; Mean Platelet Volume 9.5; Monocytes % (A) 11 %; Neutrophils # (A) 4.1 k/uL (1.3-7.7); Neutrophils % (A) 47 %; Platelet Count 106 k/uL (150-450); RBC 2.16 m/uL (4.30-5.90); RDW 19.3 % (11.5-15.5); WBC 8.8 k/uL (3.8-10.6)
[2017-11-20] MEDS: THIAMINE 100 MG TAB PO SCH (18:39)
[2017-11-21] MEDS: MORPHINE SULFATE 2 MG/ML SYRINGE IVP PRN ×6 (00:46→21:14)
[2017-11-21] MEDS: OCTREOTIDE 200 MCG in SODIUM CHLORIDE 0.9% 100 ML IV SCH ×3 (04:31→20:09)
[2017-11-21 05:02] LABS: Anion Gap 11 mmol/L; Blood Urea Nitrogen 18 mg/dL (9-20); Calcium 8.5 mg/dL (8.4-10.2); Carbon Dioxide 16 mmol/L (22-30); Chloride 114 mmol/L (98-107); Glucose 86 mg/dL (74-99); Magnesium 1.6 mg/dL (1.6-2.3); Phosphorus 4.2 mg/dL (2.5-4.5); Potassium 4.6 mmol/L (3.5-5.1); Sodium 141 mmol/L (137-145)
[2017-11-21 05:03] LABS: Anisocytosis Slight; HCT 25.8 % (39.0-53.0); HGB 8.1 gm/dL (13.0-17.5); Hypochromasia Slight; MCH 32.5 pg (25.0-35.0); MCHC 31.3 g/dL (31.0-37.0); MCV 103.8 fL (80.0-100.0); Macrocytosis Marked; Mean Platelet Volume 9.4; RBC 2.49 m/uL (4.30-5.90); RDW 19.4 % (11.5-15.5)
[2017-11-21 05:27] LABS: Eosinophils # (M) 0.42 k/uL (0-0.7); Lymphocytes # (M) 1.86 k/uL (1.0-4.8); Monocytes # (M) 0.36 k/uL (0-1.0); Neutrophils # (M) 3.36 k/uL (1.3-7.7); Neutrophils % (M) 56 %; Nucleated Red Blood Cells 0 /100 WBC (0-0); Platelet Count 88 k/uL (150-450); Total Cells Counted 100
[2017-11-21 05:28] LABS: Polychromasia Present
[2017-11-21 05:29] LABS: Poikilocytosis (M) Present
[2017-11-21] MEDS: MAGNESIUM SULFATE-D5W PMX 1 GM in DEXTROSE/WATER 1 100ML.BAG IVPB SCH ×2 (05:46→07:02)
[2017-11-21] MEDS ORDERED: IV FLUID CONTINUATION 500 ML IV ONE (07:30)
[2017-11-21] MEDS ORDERED: PROPOFOL 10 MG/ML 20 ML VIAL IV ONE (07:30)
--- NOTE | 2017-11-21 07:55 | P.CONS ---
History of Present Illness - Reason for Consult Consult date: 11/20/17 GI bleeding - History of Present Illness The patient is a 42-year-old male who presented to the emergency room with history of vomiting that lasts dark with some red discoloration that started the afternoon of the day of admission. His vomiting worsen later in the day and he had black tarry bowel movement. No hematochezia. The patient has history of alcohol dependency and alcoholic liver disease and in June of this year an upper endoscopy showed portal gastropathy and small esophageal varices. The patient apparently continues to drink alcohol and uses NSAIDs as well as. He denies chest pains, slurring his speech or other cardiopulmonary or neurologic complaints. His the hemoglobin was 7.3 and did drop to 6.8. He was admitted to the intensive care unit and was started on Sandostatin. Review of Systems Constitutional: Denied fever, chills or unintentional weight loss Neurologic: No headaches, double vision or other sensory or motor changes Cardiopulmonary: No chest pains, shortness of breath or palpitations Gastrointestinal: See present illness above Genitourinary: No hematuria, dysuria or frequency Musculoskeletal:No joint swelling or pain Skin: No rashes Hematologic: No bleeding tendency Psychiatric: No anxiety or depression Past Medical History Past Medical History: Asthma, Liver Disease, Pneumonia Additional Past Medical History / Comment(s): ETOH abuse, liver cirrhosis, abdominal ascities, pancreatitis, multiple gallstones, nephrolithiasis, chronic anemia. History of Any Multi-Drug Resistant Organisms: MRSA Year Discovered:: 12/09/2013 MDRO Source:: Right First Finger Past Surgical History: Appendectomy, Cholecystectomy, Orthopedic Surgery Additional Past Surgical History / Comment(s): 07/09/17 EGD/colonoscopy, paracentesis at [facility] several months ago, right hand tendon repair, right knee arthroscopy, cystoscopy for kidney stone removal. Past Anesthesia/Blood Transfusion Reactions: No Reported Reaction Past Psychological History: PTSD Additional Psychological History / Comment(s): Pt lives in his apartment. His girlfriend and her son are usually there with him. He does not drive, he gets to appts by his girlfriend, family or bus. 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 Smoking Status: Current every day smoker Past Alcohol Use History: Occasional Additional Past Alcohol Use History / Comment(s): Pt states he started smoking in 1983 and is a ppd smoker. PT states reduced the amount of alcohol to a few days a week, drinking 2-3 drinks on those occasions. Pt states used to drink a fifth or 1/2 gallon and some beers daily. Past Drug Use History: Marijuana Additional Drug Use History / Comment(s): Pt states he smokes marijuana on occasion. - Past Family History Mother Family Medical History: Hypertension Father Additional Family Medical History / Comment(s): Prostate issues. Brain aneurism. Medications and Allergies Home Medications Medication Instructions Recorded Confirmed Type Folic Acid 1 mg PO DAILY@1200 09/01/17 11/19/17 History Multivitamins, Thera [Multivitamin 1 tab PO DAILY #30 tablet 09/03/17 11/19/17 Rx (formulary)] Thiamine [Vitamin B-1] 100 mg PO DAILY #30 tablet 09/03/17 11/19/17 Rx Furosemide [Lasix] 20 mg PO DAILY #10 tab 10/03/17 11/19/17 Rx Ibuprofen [Motrin] 600 mg PO Q8HR PRN #20 tab 10/18/17 11/19/17 Rx Tamsulosin [Flomax] 0.4 mg PO DAILY #14 cap 11/16/17 11/19/17 Rx Allergies Allergy/AdvReac Type Severity Reaction Status Date / Time No Known Allergies Allergy Verified 11/19/17 20:22 Physical Exam Vitals: Vital Signs Temp Pulse Resp BP Pulse Ox 11/20/17 09:00 60 18 105/55 98 11/20/17 08:00 62 34 H 113/57 97 11/20/17 07:00 61 13 108/56 97 11/20/17 06:00 70 18 110/58 97 11/20/17 05:00 62 14 114/60 96 11/20/17 04:00 98.2 F 60 19 109/59 96 11/20/17 03:04 98.1 F 70 15 115/62 98 11/20/17 03:00 62 17 107/57 99 11/20/17 02:00 64 15 118/57 98 11/20/17 01:39 98.2 F 66 17 107/53 98 11/20/17 01:09 98.1 F 62 17 118/57 99 11/20/17 01:00 62 15 123/65 99 11/20/17 00:59 98.5 F 66 15 123/65 100 11/20/17 00:00 68 15 109/56 96 11/19/17 23:30 98.4 F 61 18 126/64 100 11/19/17 22:31 0/0 11/19/17 22:06 71 18 116/64 100 11/19/17 19:52 97.9 F 89 18 124/58 100 Intake and Output 11/19/17 11/20/17 11/20/17 22:59 06:59 14:59 Intake Total 1233.2 370.2 Output Total 1300 400 Balance -66.8 -29.8 Intake: IV 613.2 250.2 Octreotide 200 mcg In 88.2 100.2 Sodium Chloride 0.9% 100 ml @ 25 MCG/HR 12.62 mls/ hr IV .Q8H1M [facility] Rx#: [id number] Sodium Chloride 0.9% 1, 525 150 000 ml @ 75 mls/hr IV . [id number] [facility] Rx#:[id number] Oral 120 Blood Product 620 Rc As-1 Unit 310 [id number] Output: Urine 1300 400 Other: Voiding Method Urinal Urinal Weight 78.4 kg 78.4 kg 78.4 kg General: Appears stated age, very pleasant in no acute distress Head and neck: Normocephalic and atraumatic, conjunctivae pink and sclerae not icteric, mucous membranes moist and pink. No masses in the neck or tracheal shifts Lungs: Clear to auscultation with no dullness to percussion Heart: Regular, no abnormal sounds, murmurs, gallops or friction Abdomen: Soft, no masses or organomegalies. No tenderness. Bowel sounds present Extremities: No clubbing, cyanosis or edema Neurologic: Alert and oriented 3. Cranial nerves grossly intact. No gross sensory or motor abnormalities Results CBC & Chem 7: 11/21/17 03:47 11/21/17 03:47 Labs: Abnormal Lab Results - Last 24 Hours (Table) 11/19/17 11/19/17 11/19/17 Range/Units 19:55 19:55 19:55 RBC 2.15 L (4.30-5.90) m/uL Hgb 7.2 L D (13.0-17.5) gm/dL Hct 22.7 L (39.0-53.0) % MCV 105.5 H (80.0-100.0) fL RDW 17.6 H (11.5-15.5) % Plt Count 132 L (150-450) k/uL PT 16.1 H (9.0-12.0) sec INR 1.8 H (<1.2) Chloride 110 H (98-107) mmol/L Carbon Dioxide 21 L (22-30) mmol/L BUN 37 H (9-20) mg/dL Creatinine 0.64 L (0.66-1.25) mg/dL Glucose 111 H (74-99) mg/dL POC Glucose (mg/dL) (75-99) mg/dL Total Bilirubin 4.9 H (0.2-1.3) mg/dL Albumin 3.2 L (3.5-5.0) g/dL Lipase 352 H (23-300) U/L Crossmatch 11/19/17 11/19/17 11/20/17 Range/Units 19:55 22:59 04:06 RBC 2.25 L (4.30-5.90) m/uL Hgb 7.3 L (13.0-17.5) gm/dL Hct 23.0 L (39.0-53.0) % MCV 102.0 H (80.0-100.0) fL RDW 18.7 H (11.5-15.5) % Plt Count 84 L (150-450) k/uL PT (9.0-12.0) sec INR (<1.2) Chloride (98-107) mmol/L Carbon Dioxide (22-30) mmol/L BUN (9-20) mg/dL Creatinine (0.66-1.25) mg/dL Glucose (74-99) mg/dL POC Glucose (mg/dL) 124 H (75-99) mg/dL Total Bilirubin (0.2-1.3) mg/dL Albumin (3.5-5.0) g/dL Lipase (23-300) U/L Crossmatch See Detail 11/20/17 Range/Units 04:06 RBC (4.30-5.90) m/uL Hgb (13.0-17.5) gm/dL Hct (39.0-53.0) % MCV (80.0-100.0) fL RDW (11.5-15.5) % Plt Count (150-450) k/uL PT (9.0-12.0) sec INR (<1.2) Chloride 116 H (98-107) mmol/L Carbon Dioxide 18 L (22-30) mmol/L BUN 33 H (9-20) mg/dL Creatinine (0.66-1.25) mg/dL Glucose 114 H (74-99) mg/dL POC Glucose (mg/dL) (75-99) mg/dL Total Bilirubin (0.2-1.3) mg/dL Albumin (3.5-5.0) g/dL Lipase (23-300) U/L Crossmatch Assessment and Plan Assessment: Upper GI bleeding most likely on the basis of portal gastropathy or mucosal tear. With his history of esophageal varices and esophageal source of bleeding should be considered as well. Plan: Agree with your current management. The patient will be continued on Sandostatin and I will schedule an upper endoscopy in the next 12-24 hours to assess the source of bleeding and anemia and to guide therapy.
--- NOTE | 2017-11-21 08:03 | P.PCN ---
Date of Procedure: 11/21/17 Procedure(s) Performed: Procedure: Esophagogastroduodenoscopy. Preoperative diagnosis: Upper GI bleeding and anemia. Postoperative diagnosis: 1. Small esophageal varices with no stigmata of bleeding. 2. Gastritis consistent with portal gastropathy with no evidence of active bleeding at the time of this exam. 3. No ulcers, mucosal tears or bleeding. Preparation and sedation: Was provided by anesthesia. Brief clinical history: The patient is a 42-year-old male who presented to the emergency room with history of vomiting that lasts dark with some red discoloration that started the afternoon of the day of admission. His vomiting worsen later in the day and he had black tarry bowel movement. No hematochezia. The patient has history of alcohol dependency and alcoholic liver disease and in June of this year an upper endoscopy showed portal gastropathy and small esophageal varices. The patient apparently continues to drink alcohol and uses NSAIDs as well. He denies chest pains, slurring his speech or other cardiopulmonary or neurologic complaints. His hemoglobin was 7.3 and did drop to 6.8. He was admitted to the intensive care unit and was started on Sandostatin. Other details are summarized in the history and physical and dictated consultations and progress notes. Procedure: With the patient on his left lateral decubitus position and after informed consent and adequate sedation, I passed the Olympus-GIF 160 video upper endoscope through the cricopharyngeus down the esophagus. The esophagus did not show any obvious erosions, ulcers, mucosal tears or bleeding. There were 3 short columns of small esophageal varices in the distal esophagus with no stigmata of bleeding. The endoscope was then passed into the stomach which was insufflated with air and inspected in detail including the retroflex view in the cardia. There was diffuse mottling and erythema and occasional stellate erosions noted consistent with portal gastropathy but there was no ulcers or active bleeding. Pyloric channel, duodenal bulb, post bulbar area and descending duodenum appeared within normal limits. All secretions in the esophagus, stomach and duodenum noted during this exam were clear in color with no evidence of active bleeding. The patient tolerated the procedure well. Plan: The patient was reassured. He was instructed regarding the importance of complete and total abstinence of drinking alcohol. Will allow liquid diet and advance as tolerated. Sandostatin can be discontinued and he can be transferred to a regular floor. Will continue to follow with you.
[2017-11-21] MEDS: PANTOPRAZOLE 40 MG/10 ML VIAL IV SCH (09:04)
[2017-11-21] MEDS: THIAMINE 100 MG TAB PO SCH ×2 (09:04→18:08)
--- NOTE | 2017-11-21 09:56 | P.PN ---
Subjective Progress Note Date: 11/21/17 Principal diagnosis: GI bleed Progress note dated 11/21/2017 42-year-old male with a history of GI bleed. He has a history of alcoholic liver disease and alcoholic cirrhosis with esophageal varices. The patient currently is not receiving any supplemental oxygen. He did have an EGD done this morning with one of the gastroenterologists. He is receiving saline at 75 mL an hour. The somatostatin drip has been turned off. The EGD only revealed evidence of gastritis with no active bleeding. The patient probably stable enough to be transferred out to the general. The patient denies any chest pain or discomfort. No shortness of breath. Not coughing or wheezing. No abdominal pain. No nausea vomiting or diarrhea. No further episodes of hematemesis and no additional black tarry stools Objective - Vital Signs Vital signs: Vital Signs Temp 98.0 F 11/21/17 08:00 Pulse 59 L 11/21/17 08:00 Resp 20 11/21/17 08:00 BP 128/64 11/21/17 08:00 Pulse Ox 99 11/21/17 08:00 Intake & Output 11/20/17 11/21/17 11/21/17 18:59 06:59 18:59 Intake Total 1759.6 1935.65 357.631 Output Total 1000 3900 400 Balance 759.6 -1964.35 -42.369 Weight 78.4 kg 78.2 kg 78.2 kg Intake: IV 1038.6 1000 300 Magnesium Sulfate-D5w Pmx 100 100 1 gm In Dextrose/Water 1 100ml.bag @ 100 mls/hr IVPB Q1H [facility] Rx#: [id number] Octreotide 200 mcg In 213.6 Sodium Chloride 0.9% 100 ml @ 25 MCG/HR 12.62 mls/ hr IV .Q8H1M [facility] Rx#: [id number] Sodium Chloride 0.9% 1, 825 900 150 000 ml @ 75 mls/hr IV . [id number] [facility] Rx#:[id number] Intake, IV Titration 101 195.65 57.631 Amount Octreotide 200 mcg In 101 195.65 57.631 Sodium Chloride 0.9% 100 ml @ 25 MCG/HR 12.62 mls/ hr IV .Q8H1M [facility] Rx#: [id number] Oral 620 740 Output: Urine 1000 3900 400 Other: Voiding Method Urinal Urinal Urinal - Exam No acute distress, oriented 3. HEENT examination is grossly unremarkable. Mucous membranes are moist. No oral lesions. Neck supple. Full range of motion. No adenopathy thyromegaly or neck vein distention. Cardiovascular examination reveals regular rhythm rate. S1-S2 normal. No S3 or S4. No discernible murmur noted. Lungs reveal clear breath sounds. His breath sounds are equal bilaterally. No adventitious lung sounds including wheezes rhonchi or crackles. Abdomen soft bowel sounds are heard. No masses or tenderness. Extremities are intact. No cyanosis clubbing or edema. Skin is without rash or lesion. Neurologic examination is brief but nonfocal. - Labs CBC & Chem 7: 11/21/17 03:47 11/21/17 03:47 Labs: Abnormal Lab Results - Last 24 Hours (Table) 11/20/17 11/20/17 11/21/17 Range/Units 10:16 16:11 03:47 RBC 2.06 L 2.16 L 2.49 L (4.30-5.90) m/uL Hgb 6.8 L* 7.1 L 8.1 L (13.0-17.5) gm/dL Hct 21.7 L 22.8 L 25.8 L (39.0-53.0) % MCV 105.3 H 105.5 H 103.8 H (80.0-100.0) fL RDW 19.3 H 19.3 H 19.4 H (11.5-15.5) % Plt Count 98 L 106 L 88 L (150-450) k/uL Chloride (98-107) mmol/L Carbon Dioxide (22-30) mmol/L Creatinine (0.66-1.25) mg/dL 11/21/17 Range/Units 03:47 RBC (4.30-5.90) m/uL Hgb (13.0-17.5) gm/dL Hct (39.0-53.0) % MCV (80.0-100.0) fL RDW (11.5-15.5) % Plt Count (150-450) k/uL Chloride 114 H (98-107) mmol/L Carbon Dioxide 16 L (22-30) mmol/L Creatinine 0.60 L (0.66-1.25) mg/dL Assessment and Plan Assessment: Assessment Acute gastrointestinal bleed, secondary to esophageal varices possible esophagitis and gastritis and chronic liver disease and alcoholic cirrhosis Status post EGD on November 21, which only showed gastritis, without active bleeding. History of alcohol abuse Ongoing tobacco use and addiction Alcoholic liver cirrhosis Abdominal ascites Chronic anemia Kidney stones Multiple gallstones Alcohol induced pancreatitis Previous history of MRSA infection History of marijuana use History of NSAID abuse Plan: Plan dated 11/20/2017 The patient's white count is 6.4 hemoglobin 7.3 hematocrit 23.0 and platelet count 84,000. The patient did receive 1 unit of PRBCs. The patient remains on octreotide at 25 g. Sodium-potassium normal. Chlorides 116 with a CO2 of 18. The anion gap is normal. These electrolytes are consistent with a hyperchloremic non-anion gap metabolic acidosis. Currently the patient is very stable. No additional recommendations are made. We'll continue to follow. GI has been consulted. We'll continue to monitor the hemoglobin. Medications are reviewed. Plan dated 11/21/2017 The patient's doing reasonably well. No active bleeding on EGD. White count is 6 hemoglobin 8.1 hematocrit 25.8 and platelet count 88,000. Sodium and potassium are normal. Bicarbonate is 16 chloride 114 anion gap is normal at 11. BUN and creatinine were 18 and 0.6. Labs x-rays and medications are all reviewed. The patient is stable for transfer out of the ICU. He is counseled about the importance of cessation of all alcohol intake. Additional recommendations and suggestions are forthcoming. Prognosis is guarded. Critical care time 32 minutes Time with Patient: Less than 30
--- NOTE | 2017-11-21 12:37 | P.PN ---
Subjective Progress Note Date: 11/21/17 Principal diagnosis: GI bleed Mr. Paige is a 42-year-old male with a past medical history of asthma, alcohol liver disease admitted to the hospital with a chief complaint of hematemesis. Patient has history of alcoholic cirrhosis and oesophageal varices. Patient's hemoglobin was 6.8 and he received 1 unit of PRBCs after which his hemoglobin has been stable around 8.1. Patient had an EGD done this morning by Dr. Wills. On 11/21/2017- patient has been transferred out of the ICU. He is lying in bed comfortably appears to be no acute distress. Patient states that he has history of bilateral kidney stones and that he has ongoing chronic low back pain because of the stones. Patient denies having any blood in his urine or increased urinary frequency. He denies having any hematemesis or bloody bowel movements. Review of systems Constitutional-no fevers chills or rigors Respiratory-no cough difficulty in breathing Cardiovascular-no chest pain or palpitations Genitourinary- no complaints of hematuria or dysuria. But patient complains of low back pain more on the right side than left side due to kidney stones. Objective - Vital Signs Vital signs: Vital Signs Temp 98.0 F 11/21/17 08:00 Pulse 54 L 11/21/17 10:00 Resp 14 11/21/17 10:00 BP 130/64 11/21/17 10:00 Pulse Ox 99 11/21/17 10:00 Intake & Output 11/20/17 11/21/17 11/21/17 18:59 06:59 18:59 Intake Total 1759.6 1935.65 357.631 Output Total 1000 3900 600 Balance 759.6 -1964.35 -242.369 Weight 78.4 kg 78.2 kg 78.2 kg Intake: IV 1038.6 1000 300 Magnesium Sulfate-D5w Pmx 100 100 1 gm In Dextrose/Water 1 100ml.bag @ 100 mls/hr IVPB Q1H [facility] Rx#: [id number] Octreotide 200 mcg In 213.6 Sodium Chloride 0.9% 100 ml @ 25 MCG/HR 12.62 mls/ hr IV .Q8H1M [facility] Rx#: [id number] Sodium Chloride 0.9% 1, 825 900 150 000 ml @ 75 mls/hr IV . [id number] [facility] Rx#:[id number] Intake, IV Titration 101 195.65 57.631 Amount Octreotide 200 mcg In 101 195.65 57.631 Sodium Chloride 0.9% 100 ml @ 25 MCG/HR 12.62 mls/ hr IV .Q8H1M [facility] Rx#: [id number] Oral 620 740 Output: Urine 1000 3900 600 Other: Voiding Method Urinal Urinal Urinal - Exam GEN. APPEARANCE: alert, in no apparent distress HEAD EXAM: atraumatic, normocephalic, normal inspection EYE EXAM: Mild pallor, no icterus ENT EXAM: normal exam, mucous membranes moist NECK EXAM: No lymphadenopathy or thyromegaly RESPIRATORY EXAM: Clear lung sounds bilaterally. No wheezes or crackles. CARDIOVASCULAR EXAM: As an S2 heard no abnormal sounds GI/ABDOMINAL EXAM: Mild epigastric tenderness, no guarding or rigidity, bowel sounds normal EXTREMITIES EXAM: No pedal edema Examination of the back: Positive for CVA tenderness on the right side NEUROLOGICAL EXAM: alert, oriented X3, no focal deficits PSYCHIATRIC EXAM: normal affect, normal mood SKIN EXAM: warm, dry, intact, normal color. Absent: rash - Labs CBC & Chem 7: 11/21/17 03:47 11/21/17 03:47 Labs: Abnormal Lab Results - Last 24 Hours (Table) 11/20/17 11/21/17 11/21/17 Range/Units 16:11 03:47 03:47 RBC 2.16 L 2.49 L (4.30-5.90) m/uL Hgb 7.1 L 8.1 L (13.0-17.5) gm/dL Hct 22.8 L 25.8 L (39.0-53.0) % MCV 105.5 H 103.8 H (80.0-100.0) fL RDW 19.3 H 19.4 H (11.5-15.5) % Plt Count 106 L 88 L (150-450) k/uL Chloride 114 H (98-107) mmol/L Carbon Dioxide 16 L (22-30) mmol/L Creatinine 0.60 L (0.66-1.25) mg/dL Assessment and Plan Assessment: ASSESSMENT Acute blood loss anemia - GI bleed Cirrhosis of the liver - alcohol abuse Nicotine dependence Mild protein calorie malnutrition Pancreatitis - alcohol abuse History of marijuana and NSAID abuse History of nephrolithiasis - with chronic low back pain Plan: Patient's hemoglobin was around 7 at the time of admission he was transfused with 1 unit of PRBC. His hemoglobin is 8.1 this morning. Patient had an EGD done by Dr. Wills this morning Continue with IV fluids , octreotide and PPI. We'll monitor H&H. Patient's on DT precautions and CIWA scale. Will check urine analysis. Further recommendations to follow depending on the progress of the patient.
--- NOTE | 2017-11-21 12:37 | P.HPIM ---
History of Present Illness H&P Date: 11/20/17 Chief Complaint: Hematemesis Mr. heath is a 42-year-old male with a past medical history of asthma, alcohol liver disease admitted to the hospital with a chief complaint of hematemesis. Patient states that he was drinking too much alcohol on november when he noticed to have abdominal pain and later had hematemesis along with black tarry stools which brought him to the hospital. Patient has history of alcohol abuse has been in [facility] for a few days where he abstain from alcohol. But later continued to drink alcohol but much less than before. At the time of admission patient was hemodynamically stable and his hemoglobin was found to be 7.3. Patient did receive 1 unit of PRBC in the ICU. Patient also has history of nephrolithiasis and uses NSAIDS on and off for pain. He is a current every day smoker smokes half a pack currently but previously used to smoke 1 pack per day. Review of Systems REVIEW OF SYSTEMS: PSYCH: Normal psychiatric exam NEURO:No c/o weakness of the extremties, No facial droop, No speech abnormalities. VASCULAR: Peripheral nervous system within the normal limits no edema HEMATOLOGIC: No history of easy bleeding and bruising . No recent infections . RESPIRATORY: No cough, No SOB, No chest discomfort. IMMUNE: No infections INTEGUMENT: no rashes OPHTHALMOLOGIC: No blurry vision and no eye discharge : No dysuria or hematuria CARDIAC: No chest pain , shortness of breath , paroxysmal nocturnal dyspnea MUSCULOSKELETAL : No Aches or pains in the joints or muscles. GI: As per HPI Past Medical History Past Medical History: Asthma, Liver Disease, Pneumonia Additional Past Medical History / Comment(s): ETOH abuse, liver cirrhosis, abdominal ascities, pancreatitis, multiple gallstones, nephrolithiasis, chronic anemia. History of Any Multi-Drug Resistant Organisms: MRSA Date of last positivie culture/infection: 12/09/2013 MDRO Source:: Right First Finger Past Surgical History: Appendectomy, Cholecystectomy, Orthopedic Surgery Additional Past Surgical History / Comment(s): 07/09/17 EGD/colonoscopy, paracentesis at [facility] several months ago, right hand tendon repair, right knee arthroscopy, cystoscopy for kidney stone removal. Past Anesthesia/Blood Transfusion Reactions: No Reported Reaction Past Psychological History: PTSD Additional Psychological History / Comment(s): Pt lives in his apartment. His girlfriend and her son are usually there with him. He does not drive, he gets to appts by his girlfriend, family or bus. 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 Smoking Status: Current every day smoker Past Alcohol Use History: Occasional Additional Past Alcohol Use History / Comment(s): Pt states he started smoking in 1983 and is a ppd smoker. PT states reduced the amount of alcohol to a few days a week, drinking 2-3 drinks on those occasions. Pt states used to drink a fifth or 1/2 gallon and some beers daily. Past Drug Use History: Marijuana Additional Drug Use History / Comment(s): Pt states he smokes marijuana on occasion. - Past Family History Mother Family Medical History: Hypertension Father Additional Family Medical History / Comment(s): Prostate issues. Brain aneurism. Medications and Allergies Home Medications Medication Instructions Recorded Confirmed Type Folic Acid 1 mg PO DAILY@1200 09/01/17 11/19/17 History Multivitamins, Thera [Multivitamin 1 tab PO DAILY #30 tablet 09/03/17 11/19/17 Rx (formulary)] Thiamine [Vitamin B-1] 100 mg PO DAILY #30 tablet 09/03/17 11/19/17 Rx Furosemide [Lasix] 20 mg PO DAILY #10 tab 10/03/17 11/19/17 Rx Ibuprofen [Motrin] 600 mg PO Q8HR PRN #20 tab 10/18/17 11/19/17 Rx Tamsulosin [Flomax] 0.4 mg PO DAILY #14 cap 11/16/17 11/19/17 Rx Allergies Allergy/AdvReac Type Severity Reaction Status Date / Time No Known Allergies Allergy Verified 11/19/17 20:22 Physical Exam Vitals: Vital Signs Temp Pulse Resp BP Pulse Ox 11/20/17 12:00 63 19 147/77 100 11/20/17 11:00 66 17 123/51 100 11/20/17 10:00 61 14 119/58 97 11/20/17 09:00 60 18 105/55 98 11/20/17 08:00 62 34 H 113/57 97 11/20/17 07:00 61 13 108/56 97 11/20/17 06:00 70 18 110/58 97 11/20/17 05:00 62 14 114/60 96 11/20/17 04:00 98.2 F 60 19 109/59 96 11/20/17 03:04 98.1 F 70 15 115/62 98 11/20/17 03:00 62 17 107/57 99 11/20/17 02:00 64 15 118/57 98 11/20/17 01:39 98.2 F 66 17 107/53 98 11/20/17 01:09 98.1 F 62 17 118/57 99 11/20/17 01:00 62 15 123/65 99 11/20/17 00:59 98.5 F 66 15 123/65 100 11/20/17 00:00 68 15 109/56 96 11/19/17 23:30 98.4 F 61 18 126/64 100 11/19/17 22:31 0/0 11/19/17 22:06 71 18 116/64 100 11/19/17 19:52 97.9 F 89 18 124/58 100 Intake and Output 11/20/17 11/20/17 11/20/17 06:59 14:59 22:59 Intake Total 1233.2 633.0 Output Total 1300 600 Balance -66.8 33.0 Intake: IV 613.2 513.0 Octreotide 200 mcg In 88.2 138.0 Sodium Chloride 0.9% 100 ml @ 25 MCG/HR 12.62 mls/ hr IV .Q8H1M [facility] Rx#: [id number] Sodium Chloride 0.9% 1, 525 375 000 ml @ 75 mls/hr IV . [id number] [facility] Rx#:[id number] Oral 120 Blood Product 620 Rc As-1 Unit 310 [id number] Output: Urine 1300 600 Other: Voiding Method Urinal Urinal Weight 78.4 kg 78.4 kg GENERAL EXAM GEN. APPEARANCE: alert, in no apparent distress HEAD EXAM: atraumatic, normocephalic, normal inspection EYE EXAM: Mild pallor, no icterus ENT EXAM: normal exam, mucous membranes moist NECK EXAM: No lymphadenopathy or thyromegaly RESPIRATORY EXAM: Clear lung sounds bilaterally. No wheezes or crackles. CARDIOVASCULAR EXAM: As an S2 heard no abnormal sounds GI/ABDOMINAL EXAM: Mild epigastric tenderness, no guarding or rigidity, bowel sounds normal EXTREMITIES EXAM: No pedal edema Examination of the back: Positive for CVA tenderness on the right side NEUROLOGICAL EXAM: alert, oriented X3, no focal deficits PSYCHIATRIC EXAM: normal affect, normal mood SKIN EXAM: warm, dry, intact, normal color. Absent: rash Results CBC & Chem 7: 11/21/17 03:47 11/21/17 03:47 Labs: Abnormal Lab Results - Last 24 Hours (Table) 11/19/17 11/19/17 11/19/17 Range/Units 19:55 19:55 19:55 RBC 2.15 L (4.30-5.90) m/uL Hgb 7.2 L D (13.0-17.5) gm/dL Hct 22.7 L (39.0-53.0) % MCV 105.5 H (80.0-100.0) fL RDW 17.6 H (11.5-15.5) % Plt Count 132 L (150-450) k/uL PT 16.1 H (9.0-12.0) sec INR 1.8 H (<1.2) Chloride 110 H (98-107) mmol/L Carbon Dioxide 21 L (22-30) mmol/L BUN 37 H (9-20) mg/dL Creatinine 0.64 L (0.66-1.25) mg/dL Glucose 111 H (74-99) mg/dL POC Glucose (mg/dL) (75-99) mg/dL Total Bilirubin 4.9 H (0.2-1.3) mg/dL Albumin 3.2 L (3.5-5.0) g/dL Lipase 352 H (23-300) U/L Crossmatch 11/19/17 11/19/17 11/20/17 Range/Units 19:55 22:59 04:06 RBC 2.25 L (4.30-5.90) m/uL Hgb 7.3 L (13.0-17.5) gm/dL Hct 23.0 L (39.0-53.0) % MCV 102.0 H (80.0-100.0) fL RDW 18.7 H (11.5-15.5) % Plt Count 84 L (150-450) k/uL PT (9.0-12.0) sec INR (<1.2) Chloride (98-107) mmol/L Carbon Dioxide (22-30) mmol/L BUN (9-20) mg/dL Creatinine (0.66-1.25) mg/dL Glucose (74-99) mg/dL POC Glucose (mg/dL) 124 H (75-99) mg/dL Total Bilirubin (0.2-1.3) mg/dL Albumin (3.5-5.0) g/dL Lipase (23-300) U/L Crossmatch See Detail 11/20/17 11/20/17 Range/Units 04:06 10:16 RBC 2.06 L (4.30-5.90) m/uL Hgb 6.8 L* (13.0-17.5) gm/dL Hct 21.7 L (39.0-53.0) % MCV 105.3 H (80.0-100.0) fL RDW 19.3 H (11.5-15.5) % Plt Count 98 L (150-450) k/uL PT (9.0-12.0) sec INR (<1.2) Chloride 116 H (98-107) mmol/L Carbon Dioxide 18 L (22-30) mmol/L BUN 33 H (9-20) mg/dL Creatinine (0.66-1.25) mg/dL Glucose 114 H (74-99) mg/dL POC Glucose (mg/dL) (75-99) mg/dL Total Bilirubin (0.2-1.3) mg/dL Albumin (3.5-5.0) g/dL Lipase (23-300) U/L Crossmatch Thrombosis Risk Factor Assmnt - Choose All That Apply Any of the Below Risk Factors Present?: Yes Each Factor Represents 1 point: Age 41-60 years Other Risk Factors: No Thrombosis Risk Factor Assessment Total Risk Factor Score: 1 Thrombosis Risk Factor Assessment Level: Low Risk Assessment and Plan Assessment: ASSESSMENT Acute blood loss anemia - GI bleed Cirrhosis of the liver - alcohol abuse Nicotine dependence Mild protein calorie malnutrition Pancreatitis - alcohol abuse History of marijuana and NSAID abuse History of nephrolithiasis Plan: Patient's hemoglobin was around 7 at the time of admission he was transfused with 1 unit of PRBC. Continue with IV fluids , octreotide and PPI. We'll monitor H&H. Patient's on DT precautions and CIWA scale.
[2017-11-22 00:14] VITALS: TEMP 98.4
[2017-11-22] MEDS: MORPHINE SULFATE 2 MG/ML SYRINGE IVP PRN ×4 (01:04→13:14)
[2017-11-22 06:11] VITALS: RESP 18
[2017-11-22] MEDS: PANTOPRAZOLE 40 MG/10 ML VIAL IV SCH (07:23)
[2017-11-22 09:05] LABS: Anisocytosis Slight; Basophils # (A) 0.1 k/uL (0-0.2); Basophils % (A) 1 %; Eosinophils # (A) 0.3 k/uL (0-0.7); Eosinophils % (A) 6 %; HCT 23.7 % (39.0-53.0); HGB 7.4 gm/dL (13.0-17.5); Hypochromasia Slight; Lymphocytes # (A) 1.6 k/uL (1.0-4.8); Lymphocytes % (A) 30 %; MCH 32.4 pg (25.0-35.0); MCHC 31.4 g/dL (31.0-37.0); MCV 103.3 fL (80.0-100.0); Macrocytosis Moderate; Mean Platelet Volume 8.5; Monocytes # (A) 0.3 k/uL (0-1.0); Monocytes % (A) 6 %; Neutrophils # (A) 2.7 k/uL (1.3-7.7); Neutrophils % (A) 53 %; Platelet Count 123 k/uL (150-450); RBC 2.29 m/uL (4.30-5.90); RDW 19.9 % (11.5-15.5); WBC 5.1 k/uL (3.8-10.6)
[2017-11-22 09:09] LABS: Anion Gap 11 mmol/L; Blood Urea Nitrogen 11 mg/dL (9-20); Calcium 8.7 mg/dL (8.4-10.2); Carbon Dioxide 21 mmol/L (22-30); Chloride 110 mmol/L (98-107); Glucose 82 mg/dL (74-99); Magnesium 1.5 mg/dL (1.6-2.3); Phosphorus 4.1 mg/dL (2.5-4.5); Potassium 3.6 mmol/L (3.5-5.1); Sodium 142 mmol/L (137-145)
[2017-11-22 11:27] LABS: Appearance,Urine Clear (Clear); Bilirubin,Urine Negative (Negative); Blood,Urine Negative (Negative); Color,Urine Yellow; Glucose,Urine (UA) Negative (Negative); Ketones,Urine Negative (Negative); Leukocyte Esterase,Urine Negative (Negative); Nitrite,Urine Negative (Negative); Protein,Urine Negative (Negative); Specific Gravity,Urine 1.008 (1.001-1.035)
--- NOTE | 2017-11-22 11:55 | XR ---
EXAMINATION TYPE: XR chest 1V portable DATE OF EXAM: 11/22/2017 Comparison: 11/19/2017 Clinical History: 42-year-old male with left-sided pain, r/o pneumonia Findings: Heart upper limits of normal in size. Mild diffuse interstitial prominence with strandy atelectasis o r scarring at the lung bases. Mild hyperinflation. No consolidation or pleural effusion. Impression: Possible underlying COPD. Strandy atelectasis or scarring at the lung bases. Otherwise, no acute proc ess seen.
[2017-11-22] MEDS: THIAMINE 100 MG TAB PO SCH (12:49)
--- NOTE | 2017-11-22 14:07 | CT ---
EXAMINATION TYPE: CT angio chest DATE OF EXAM: 11/22/2017 COMPARISON: 03/02/2017 HISTORY: Left lower chest pains TECHNIQUE: Contiguous axial scanning of the performed with IV Contrast, patient injected with 100, wa sted 14 mL of Isovue 370. And coronal/sagittal MIP reconstructions performed. CT DLP: 536 mGycm Automated exposure control for dose reduction was used. FINDINGS: Heart upper limits of normal in size without pericardial effusion. Aorta normal caliber with conventional branching anatomy. No thoracic lymphadenopathy by CT size criteria Suboptimal opacification of the pulmonary arterial system also is respiratory motion limiting assessm ent. No large central or lobar pulmonary embolus. A few of the segmental branches in the left lower l obe are nondiagnostic, for example, axial image 87 and 94. Motion artifacts are favored. No definite pulmonary embolus seen elsewhere in the lungs. There is mild centrilobular emphysema and mild diffuse bronchial wall thickening. Bands of atelectasi s at the lung bases without consolidation or pleural effusion. Mild bilateral gynecomastia. Small hiatal hernia. There appears to be gastrohepatic ligament lymphadenopathy in the upper abdomen measuring up to 1.7 c m. Mild upper abdominal ascites and diffuse heterogeneous enhancement of the liver. Subcentimeter hyp odensity segment 7 right liver lobe not clearly seen previously but could represent a tiny cyst. Bones: No osseous destructive process. IMPRESSION: 1. SUBOPTIMAL CONTRAST BOLUS AND RESPIRATORY MOTION ARTIFACTS. A FEW OF THE SEGMENTAL BRANCHES IN THE LEFT LOWER LOBE ARE NONDIAGNOSTIC. NO DEFINITE PULMONARY EMBOLUS ELSEWHERE IN THE LUNGS. 2. COPD WITH MILD EMPHYSEMA. 3. MARKED HETEROGENEOUS ENHANCEMENT OF THE LIVER. FINDINGS COULD REPRESENT NONSPECIFIC HEPATOCELLULAR DISEASE OR HEPATITIS. 4. THERE IS MILD UPPER ABDOMINAL ASCITES AND POSSIBLE UPPER ABDOMINAL LYMPHADENOPATHY MEASURING UP TO 1.7 CM. FURTHER WORKUP RECOMMENDED.
[2017-11-22 15:02] VITALS: BP 102/53; PULSE 61
--- NOTE | 2017-11-22 15:33 | P.PN ---
Subjective Progress Note Date: 11/22/17 Principal diagnosis: acute gastrointestinal bleed, secondary to esophageal varices Progress note dated 11/21/2017 42-year-old male with a history of GI bleed. He has a history of alcoholic liver disease and alcoholic cirrhosis with esophageal varices. The patient currently is not receiving any supplemental oxygen. He did have an EGD done this morning with one of the gastroenterologists. He is receiving saline at 75 mL an hour. The somatostatin drip has been turned off. The EGD only revealed evidence of gastritis with no active bleeding. The patient probably stable enough to be transferred out to the general. The patient denies any chest pain or discomfort. No shortness of breath. Not coughing or wheezing. No abdominal pain. No nausea vomiting or diarrhea. No further episodes of hematemesis and no additional black tarry stools On 11/22/2017 patient seen again in follow-up on medical surgical floor. he is resting in bed, is complaining of left lower anterior chest wall discomfort, which is worse with deep inspiration, or when patient is lying on left side. Chest x-ray showed possible underlying COPD, and some straining atelectasis or scarring at the lung bases, otherwise no acute process was seen. vital signs are stable, room air pulse ox is 99%, no fever or chills. Patient's last bowel movement was yesterday, and he was black in appearance, EGD showed small esophageal varices with no stigmata of bleeding, gastritis consistent with portal gastropathy with no evidence of active bleeding. today's hemoglobin is 7.4. CT angiogram had suboptimal contrast and respiratory motion artifact, no definite pulmonary embolism seen, COPD mild emphysema, marked heterogeneous enhancement of the liver, mild upper abdominal ascites and possible upper abdominal lymphadenopathy measuring up to 1.7 cm. denies any abdominal pain, no nausea, no vomiting. Tolerating regular diet. Objective - Vital Signs Vital signs: Vital Signs Temp 98.4 F 11/22/17 14:46 Pulse 61 11/22/17 14:46 Resp 18 11/22/17 14:46 BP 102/53 11/22/17 14:46 Pulse Ox 99 11/22/17 14:46 Intake & Output 11/21/17 11/22/17 11/22/17 18:59 06:59 18:59 Intake Total 357.631 283.369 720 Output Total 600 Balance -242.369 283.369 720 Weight 78.2 kg 76 kg Intake: IV 300 Magnesium Sulfate-D5w Pmx 100 1 gm In Dextrose/Water 1 100ml.bag @ 100 mls/hr IVPB Q1H [facility] Rx#: [id number] Sodium Chloride 0.9% 1, 150 000 ml @ 75 mls/hr IV . [id number] [facility] Rx#:[id number] Intake, IV Titration 57.631 43.369 Amount Octreotide 200 mcg In 57.631 43.369 Sodium Chloride 0.9% 100 ml @ 25 MCG/HR 12.62 mls/ hr IV .Q8H1M [facility] Rx#: [id number] Oral 240 720 Output: Urine 600 Other: Voiding Method Urinal # Voids 1 1 2 # Bowel Movements 0 0 - Exam No acute distress, oriented 3. HEENT examination is grossly unremarkable. Mucous membranes are moist. No oral lesions. Neck supple. Full range of motion. No adenopathy thyromegaly or neck vein distention. Cardiovascular examination reveals regular rhythm rate. S1-S2 normal. No S3 or S4. No discernible murmur noted. Lungs reveal clear breath sounds. His breath sounds are equal bilaterally. No adventitious lung sounds including wheezes rhonchi or crackles. Abdomen soft bowel sounds are heard. No masses or tenderness. Extremities are intact. No cyanosis clubbing or edema. Skin is without rash or lesion. Neurologic examination is brief but nonfocal. - Labs CBC & Chem 7: 11/22/17 07:47 11/22/17 07:47 Labs: Abnormal Lab Results - Last 24 Hours (Table) 11/22/17 11/22/17 Range/Units 07:47 07:47 RBC 2.29 L (4.30-5.90) m/uL Hgb 7.4 L (13.0-17.5) gm/dL Hct 23.7 L (39.0-53.0) % MCV 103.3 H (80.0-100.0) fL RDW 19.9 H (11.5-15.5) % Plt Count 123 L (150-450) k/uL Chloride 110 H (98-107) mmol/L Carbon Dioxide 21 L (22-30) mmol/L Creatinine 0.65 L (0.66-1.25) mg/dL Magnesium 1.5 L (1.6-2.3) mg/dL Assessment and Plan Plan: assessment: Acute gastrointestinal bleed, secondary to esophageal varices possible esophagitis and gastritis and chronic liver disease and alcoholic cirrhosis Status post EGD on November 21, which only showed gastritis, without active bleeding. History of alcohol abuse Ongoing tobacco use and addiction Alcoholic liver cirrhosis Abdominal ascites Chronic anemia Kidney stones Multiple gallstones Alcohol induced pancreatitis Previous history of MRSA infection History of marijuana use History of NSAID abuse Plan: Continue IV Protonix, CT angios were obtained and reviewed, and did not show any acute pulmonary abnormality. This patient remains stable, vital signs are stable, patient is tolerating regular diet, no abdominal pain, no nausea or vomiting. patient could be considered for discharge in next 24 hours. I performed a history & physical examination of the patient and discussed their management with my nurse practitioner, Nancy Hoyos. I reviewed the nurse practitioner's note and agree with the documented findings and plan of care. Lung sounds are clear. The findings and the impression was discussed with the patient. I attest to the documentation by the nurse practitioner. Time with Patient: Less than 30
--- NOTE | 2017-11-22 16:33 | P.DS ---
Providers Date of admission: 11/19/17 22:06 Attending physician: Timoteo Zarate Consults: 11/19/17 22:00 Consult Physician Routine Consulting Provider: Riki Anderson Consult Reason/Comments: GI bleed with a history of esophageal varices Do you want consulting provider notified?: Yes 11/19/17 22:24 Consult Physician Stat Consulting Provider: Aikn Bates Consult Reason/Comments: GI Bleed Do you want consulting provider notified?: Already Contacted Primary care physician: Ismael Ernandez [facility] Course: Mr. Paige is a 42-year-old male with a past medical history of asthma, alcohol liver disease admitted to the hospital with a chief complaint of hematemesis. Patient has history of alcoholic cirrhosis and oesophageal varices. Patient's hemoglobin was 6.8 and he received 1 unit of PRBCs after which his hemoglobin has been stable around 8.1. Patient had an EGD done by Dr. Wills on 11/21/2017 -Postoperative diagnosis: 1. Small esophageal varices with no stigmata of bleeding. 2. Gastritis consistent with portal gastropathy with no evidence of active bleeding at the time of this exam. 3. No ulcers, mucosal tears or bleeding. Patient has been continued on IV Protonix and octreotide after which his symptoms improved and hemoglobin has been stable. Patient states that he has history of bilateral kidney stones and that he has ongoing chronic low back pain because of the stones. Patient denies having any blood in his urine or increased urinary frequency. Urinalysis was done which was negative for any RBCs or WBCs. This morning patient complained of left-sided chest pain which is pleuritic in nature, so a CT PE was done that was negative for pulmonary embolism. It showed COPD with mild emphysema. He had hepatocellular disease. There is also mild upper abdominal ascites and possible upper abdominal lymphadenopathy measuring about 1.7 cm and needs further workup. The CT findings were discussed with Dr. Wills who recommended outpatient follow-up. Patient's physical exam labs and vitals within normal limits at the time of discharge. DISCHARGE DIAGNOSIS Acute blood loss anemia - GI bleed Cirrhosis of the liver - alcohol abuse Nicotine dependence Mild protein calorie malnutrition Pancreatitis - alcohol abuse History of marijuana and NSAID abuse History of nephrolithiasis - with chronic low back pain Upper abdominal lymphadenopathy measuring about 1.7 cm - on the CT of the chest done on 11/22/2017 Follow-up - patient is advised to stop taking and is states which will increase the chance of GI bleed. We will discharge him on proton pump inhibitors. Advised to have follow-up with GI Dr. Wills for the abdominal lymphadenopathy. Patient is being discharged home in a stable condition to have a follow-up with his primary care physician and GI Dr. Wills. More than 35 minutes spent towards the discharge of the patient. Patient Condition at Discharge: Fair Plan - Discharge Summary Discharge Rx Participant: Yes New Discharge Prescriptions: New Pantoprazole Sodium [Protonix] 40 mg PO DAILY #30 tablet.dr Continue Folic Acid 1 mg PO DAILY@1200 Multivitamins, Thera [Multivitamin (formulary)] 1 tab PO DAILY #30 tablet Thiamine [Vitamin B-1] 100 mg PO DAILY #30 tablet Furosemide [Lasix] 20 mg PO DAILY #10 tab Tamsulosin [Flomax] 0.4 mg PO DAILY #14 cap Discontinued Ibuprofen [Motrin] 600 mg PO Q8HR PRN #20 tab PRN Reason: Pain Discharge Medication List Folic Acid 1 mg PO DAILY@1200 09/01/17 [History] Multivitamins, Thera [Multivitamin (formulary)] 1 tab PO DAILY #30 tablet [Rx] Thiamine [Vitamin B-1] 100 mg PO DAILY #30 tablet 09/03/17 [Rx] Furosemide [Lasix] 20 mg PO DAILY #10 tab 10/03/17 [Rx] Tamsulosin [Flomax] 0.4 mg PO DAILY #14 cap 11/16/17 [Rx] Pantoprazole Sodium [Protonix] 40 mg PO DAILY #30 tablet. 11/22/17 [Rx] Follow up Appointment(s)/Referral(s): Riki Anderson MD [STAFF PHYSICIAN] - 11/25/17 10:30 am Timmy Guevara MD [Primary Care Provider] - 1-2 days (Call office to make appointment) Patient Instructions/Handouts: Gastrointestinal Bleeding (ED)
== END 2017-11-22 16:51 | disposition home or self-care (01) | DRG 432 ==
LOC: EC 19:50 → 6ICU 22:06 → 4MS4W 11-21 10:23
PROVIDERS: ADMIT Internal Medicine; ATTEND Internal Medicine
PROC: 30233N1 Transfusion of Nonautologous Red Blood Cells into Peripheral Vein, Percutaneous Approach (ICD-10-PCS; 2017-11-20)
PROC: 0DJ08ZZ Inspection of Upper Intestinal Tract, Via Natural or Artificial Opening Endoscopic (ICD-10-PCS; principal; 2017-11-21 07:30)
DX: K70.31 Alcoholic cirrhosis of liver with ascites (principal); I85.11 Secondary esophageal varices with bleeding; K85.20 Alcohol induced acute pancreatitis without necrosis or infection; K29.21 Alcoholic gastritis with bleeding; D62 Acute posthemorrhagic anemia; E44.1 Mild protein-calorie malnutrition; K76.6 Portal hypertension; E87.2 Acidosis; F17.210 Nicotine dependence, cigarettes, uncomplicated; F43.10 Post-traumatic stress disorder, unspecified; J43.9 Emphysema, unspecified; N20.0 Calculus of kidney; F10.20 Alcohol dependence, uncomplicated; G89.29 Other chronic pain; R59.0 Localized enlarged lymph nodes; R07.89 Other chest pain; K31.89 Other diseases of stomach and duodenum; M54.9 Dorsalgia, unspecified; Z87.442 Personal history of urinary calculi; Z86.14 Personal history of Methicillin resistant Staphylococcus aureus infection; Z79.899 Other long term (current) drug therapy; Z87.01 Personal history of pneumonia (recurrent); Z68.22 Body mass index [BMI] 22.0-22.9, adult; Z90.49 Acquired absence of other specified parts of digestive tract; Z82.49 Family history of ischemic heart disease and other diseases of the circulatory system
CPT/HCPCS: 36415; 43235; 71045; 71046; 71275; 80048; 80053; 81003; 82271; 83036; 83605; 83690; 83735; 84100; 84484; 85025; 85610; 85730; 86850; 86870; 86880; 86900; 86901; 86902; 86920; 93005; 96361; 96365; 96375; 99285

== ENCOUNTER 2017-11-28 18:20 | Inpatient (IN) | payer OTHER ==
[2017-11-28] MEDS ORDERED: SODIUM CHLORIDE 0.9% 1,000 ML IV ONE (19:02)
[2017-11-28] MEDS ORDERED: PANTOPRAZOLE 40 MG/10 ML VIAL IVP STA (19:10)
[2017-11-28] MEDS ORDERED: cefTRIAXone IN SWFI 2,000 MG/20 ML SYRINGE IVP STA (19:14)
[2017-11-28] MEDS ORDERED: OCTREOTIDE 100 MCG/ML INJ IVP STA (19:16)
--- NOTE | 2017-11-28 19:22 | ED ---
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 Patient states he was admitted and discharged the beginning of the month for similar symptoms. He underwent an EGD which showed gastritis and varices. He was treated with Protonix and Octreotide and discharged home. Patient states since then he's been continuing to have black stools but he was not having episodes of hematemesis. He's had 6 episodes of hematemesis and worsening abdominal pain. He also states he's had multiple episodes of black tarry stools. He admits to falling down twice today but states he did not hit his head or lose consciousness and slowly lowered himself to the ground. He states he followed up with Dr. Huff last week and was placed on a medication to "shrink the capillaries" but states he is still drinking. He admits to drinking "a few beers " today. Patient admits to worsening right sided abdominal pain. He states he has a history of kidney stones and that this pain feels like that. He denies any dysuria or hematuria. - Related Data Home Medications Medication Instructions Recorded Confirmed Folic Acid 1 mg PO DAILY@1200 09/01/17 11/19/17 Previous Rx's Medication Instructions Recorded Multivitamins, Thera [Multivitamin 1 tab PO DAILY #30 tablet 09/03/17 (formulary)] Thiamine [Vitamin B-1] 100 mg PO DAILY #30 tablet 09/03/17 Furosemide [Lasix] 20 mg PO DAILY #10 tab 10/03/17 Tamsulosin [Flomax] 0.4 mg PO DAILY #14 cap 11/16/17 Pantoprazole Sodium [Protonix] 40 mg PO DAILY #30 tablet. 11/22/17 Allergies Allergy/AdvReac Type Severity Reaction Status Date / Time No Known Allergies Allergy Verified 11/28/17 18:48 Review of Systems ROS Statement: Those systems with pertinent positive or pertinent negative responses have been documented in the HPI. Review of Systems Constitutional: Denies fever, chills Eyes: Denies change in vision, Denies pain Ears, nose, mouth, throat: Denies headaches, Denies sore throat Cardiovascular: Denies chest pain. Denies palpitations Respiratory: Denies shortness of breath, Denies cough Gastrointestinal: Positive abdominal pain. Positive nausea, vomiting. Positive GI bleed. Genitourinary: Denies hematuria, Denies infections Musculoskeletal: Denies pain, Denies swelling Integumentary: Denies rash Neurological: Denies headache, focal weakness, focal numbness. Positive light headedness. Psychiatric: Denies anxiety, Denies depression Hematologic/Lymphatic: Denies easy bleeding or bruising ROS Other: All systems not noted in ROS Statement are negative. Past Medical History Past Medical History: Asthma, Liver Disease, Pneumonia Additional Past Medical History / Comment(s): ETOH abuse, liver cirrhosis, abdominal ascities, pancreatitis, multiple gallstones, nephrolithiasis, chronic anemia. History of Any Multi-Drug Resistant Organisms: MRSA Date of last positivie culture/infection: 12/09/2013 MDRO Source:: Right First Finger Past Surgical History: Appendectomy, Cholecystectomy, Orthopedic Surgery Additional Past Surgical History / Comment(s): 07/09/17 EGD/colonoscopy, paracentesis at [place] several months ago, right hand tendon repair, right knee arthroscopy, cystoscopy for kidney stone removal. Past Anesthesia/Blood Transfusion Reactions: No Reported Reaction Past Psychological History: PTSD Smoking Status: Current every day smoker Past Alcohol Use History: Occasional Past Drug Use History: Marijuana - Past Family History Mother Family Medical History: Hypertension Father Additional Family Medical History / Comment(s): Prostate issues. Brain aneurism. General Exam - General Exam Comments Initial Comments: General: Awake, alert, No acute Distress. Smells of ETOH HENT: Normocephalic. Atraumatic Eyes: PERRL. EOMI. No scleral icterus. No injected conjunctiva Neck: Full ROM Chest/Lungs: Clear to auscultation bilaterally. No wheezing, rhonchi, or rales Cardiac: Regular rate, rhythm. No murmurs or rubs Abdomen/GI: Generalized abdominal tenderness. No rebound, guarding, or rigidity. Musculoskeletal: Full ROM Skin: Warm, dry, intact Neurologic: A/Ox3, no weakness, no sensory deficit, no abdnormal gait, no coordination deficit Limitations: no limitations Course Vital Signs 07/15/18 07/15/18 18:46 20:23 Temperature 98.2 F Pulse Rate 70 81 Respiratory 18 20 Rate Blood Pressure 112/60 161/87 O2 Sat by Pulse 99 97 Oximetry EKG Findings - EKG Results: EKG: sinus rhythm (71 bpm. NV interval 142 ms. QRS duration 96 ms QT/QTc 430/ 467 ) Medical Decision Making - Medical Decision Making 42-year-old male presenting with worsening abdominal pain and lightheadedness. Initial exam the patient is awake, alert, no acute distress. VSS. Many of multiple episodes of hematemesis and he is known esophageal variceals. He was given 50 g of octreotide. Patient's also having worsening abdominal pain. He was given 2 g of Rocephin for SBP prophylaxis. Patient's laboratory workup reveals a stable hemoglobin at 7.8 from 7. and November 22. Patient's CT head was negative for acute process. CT abdomen and pelvis showed portal hypertension, splenomegaly, and signs consistent with possible esophageal varices and gastritis. At this time patient requires admission for hematemesis with known esophageal varices in lieu of his alcoholic liver failure. I spoke with Dr. Gurrola who is agreeable to admission with Dr. Huff on consult. Patient is currently stable for transfer to the floor. - Lab Data Result diagrams: 11/28/17 19:27 11/28/17 19:27 Lab Results 11/28/17 11/28/17 11/28/17 Range/Units 19:27 19:27 19:27 WBC 5.5 (3.8-10.6) k/uL RBC 2.44 L (4.30-5.90) m/uL Hgb 7.8 L (13.0-17.5) gm/dL Hct 24.4 L (39.0-53.0) % MCV 100.0 (80.0-100.0) fL MCH 31.9 (25.0-35.0) pg MCHC 31.9 (31.0-37.0) g/dL RDW 18.4 H (11.5-15.5) % Plt Count 163 (150-450) k/uL Neutrophils % 52 % Lymphocytes % 32 % Monocytes % 8 % Eosinophils % 5 % Basophils % 1 % Neutrophils # 2.8 (1.3-7.7) k/uL Lymphocytes # 1.7 (1.0-4.8) k/uL Monocytes # 0.4 (0-1.0) k/uL Eosinophils # 0.3 (0-0.7) k/uL Basophils # 0.1 (0-0.2) k/uL Hypochromasia Moderate Anisocytosis Slight Macrocytosis Slight PT (9.0-12.0) sec INR (<1.2) Sodium 144 (137-145) mmol/L Potassium 3.7 (3.5-5.1) mmol/L Chloride 115 H (98-107) mmol/L Carbon Dioxide 18 L (22-30) mmol/L Anion Gap 11 mmol/L BUN 7 L (9-20) mg/dL Creatinine 0.60 L (0.66-1.25) mg/dL Est GFR (CKD-EPI)AfAm >90 (>60 ml/min/1.73 sqM) Est GFR (CKD-EPI)NonAf >90 (>60 ml/min/1.73 sqM) Glucose 95 (74-99) mg/dL Calcium 9.0 (8.4-10.2) mg/dL Total Bilirubin 2.5 H (0.2-1.3) mg/dL Conjugated Bilirubin 0.0 (0.0-0.3) mg/dL Unconjugated Bilirubin 1.5 H (0.0-1.1) mg/dL Delta Bilirubin 1.0 H (0.0-0.2) mg/dL AST 95 H (17-59) U/L ALT 46 (21-72) U/L Alkaline Phosphatase 107 (38-126) U/L Troponin I (0.000-0.034) ng/mL Total Protein 7.8 (6.3-8.2) g/dL Albumin 3.9 (3.5-5.0) g/dL Lipase 307 H (23-300) U/L Blood Type A Negative Blood Type Recheck No Antibody Screen POSITIVE Spec Expiration Date 12/01/2017232611/28/17 11/28/17 Range/Units 19:27 19:27 WBC (3.8-10.6) k/uL RBC (4.30-5.90) m/uL Hgb (13.0-17.5) gm/dL Hct (39.0-53.0) % MCV (80.0-100.0) fL MCH (25.0-35.0) pg MCHC (31.0-37.0) g/dL RDW (11.5-15.5) % Plt Count (150-450) k/uL Neutrophils % % Lymphocytes % % Monocytes % % Eosinophils % % Basophils % % Neutrophils # (1.3-7.7) k/uL Lymphocytes # (1.0-4.8) k/uL Monocytes # (0-1.0) k/uL Eosinophils # (0-0.7) k/uL Basophils # (0-0.2) k/uL Hypochromasia Anisocytosis Macrocytosis PT 15.1 H (9.0-12.0) sec INR 1.6 H (<1.2) Sodium (137-145) mmol/L Potassium (3.5-5.1) mmol/L Chloride (98-107) mmol/L Carbon Dioxide (22-30) mmol/L Anion Gap mmol/L BUN (9-20) mg/dL Creatinine (0.66-1.25) mg/dL Est GFR (CKD-EPI)AfAm (>60 ml/min/1.73 sqM) Est GFR (CKD-EPI)NonAf (>60 ml/min/1.73 sqM) Glucose (74-99) mg/dL Calcium (8.4-10.2) mg/dL Total Bilirubin (0.2-1.3) mg/dL Conjugated Bilirubin (0.0-0.3) mg/dL Unconjugated Bilirubin (0.0-1.1) mg/dL Delta Bilirubin (0.0-0.2) mg/dL AST (17-59) U/L ALT (21-72) U/L Alkaline Phosphatase (38-126) U/L Troponin I <0.012 (0.000-0.034) ng/mL Total Protein (6.3-8.2) g/dL Albumin (3.5-5.0) g/dL Lipase (23-300) U/L Blood Type Blood Type Recheck Antibody Screen Spec Expiration Date Disposition Clinical Impression: Alcoholic cirrhosis of liver with ascites, Esophageal varices with bleeding, Light headedness, Abdominal pain, Melena, Upper GI bleeding Disposition: ADMITTED IP TO THIS [facility] Condition: Good Referrals: Timmy Guevara MD [Primary Care Provider] - 1-2 days Decision Date: 11/28/17 Decision Time: 21:45
[2017-11-28] MEDS ORDERED: ONDANSETRON 4 MG/2 ML VIAL IVP STA (19:23)
[2017-11-28 19:48] LABS: Anisocytosis Slight; Basophils # (A) 0.1 k/uL (0-0.2); Basophils % (A) 1 %; Eosinophils # (A) 0.3 k/uL (0-0.7); Eosinophils % (A) 5 %; HCT 24.4 % (39.0-53.0); HGB 7.8 gm/dL (13.0-17.5); Hypochromasia Moderate; Lymphocytes # (A) 1.7 k/uL (1.0-4.8); Lymphocytes % (A) 32 %; MCH 31.9 pg (25.0-35.0); MCHC 31.9 g/dL (31.0-37.0); Macrocytosis Slight; Mean Platelet Volume 8.1; Monocytes # (A) 0.4 k/uL (0-1.0); Monocytes % (A) 8 %; Neutrophils # (A) 2.8 k/uL (1.3-7.7); Neutrophils % (A) 52 %; Platelet Count 163 k/uL (150-450); RBC 2.44 m/uL (4.30-5.90); RDW 18.4 % (11.5-15.5); WBC 5.5 k/uL (3.8-10.6)
--- NOTE | 2017-11-28 19:56 | CT ---
EXAMINATION TYPE: CT brain wo con DATE OF EXAM: 11/28/2017 COMPARISON: 03/02/2017 CT brain HISTORY: Dizziness and vomiting CT DLP: 999.8 mGycm. Automated Exposure Control for Dose Reduction was Utilized. TECHNIQUE: CT scan of the head is performed without contrast. FINDINGS: There is no acute intracranial hemorrhage, mass effect, or midline shift identified. The ventricles and sulci are within normal limits in size. The globes are intact and the visualized sin uses are remarkable for inflammatory change in the sphenoid, mastoids are well aerated. There is antonia ical atrophy. White matter demyelination changes suspected. IMPRESSION: No acute intracranial hemorrhage, mass effect, or midline shift is seen.
[2017-11-28 19:58] LABS: INR 1.6 (<1.2); Prothrombin Time 15.1 sec (9.0-12.0)
[2017-11-28 20:03] LABS: ALT 46 U/L (21-72); AST 95 U/L (17-59); Albumin 3.9 g/dL (3.5-5.0); Alkaline Phosphatase 107 U/L (38-126); Anion Gap 11 mmol/L; Bilirubin,Unconjugated 1.5 mg/dL (0.0-1.1); Blood Urea Nitrogen 7 mg/dL (9-20); Carbon Dioxide 18 mmol/L (22-30); Chloride 115 mmol/L (98-107); Glucose 95 mg/dL (74-99); Lipase 307 U/L (23-300); Potassium 3.7 mmol/L (3.5-5.1); Sodium 144 mmol/L (137-145); Total Bilirubin 2.5 mg/dL (0.2-1.3); Total Protein 7.8 g/dL (6.3-8.2)
--- NOTE | 2017-11-28 20:12 | CT ---
EXAMINATION TYPE: CT abdomen pelvis wo con DATE OF EXAM: 11/28/2017 COMPARISON: CT 10/03/2017 HISTORY: Dizziness and vomiting CT DLP: 334.4 mGycm Automated exposure control for dose reduction was used. TECHNIQUE: Helical acquisition of images from the lung bases through the pelvis. FINDINGS: Lack of intravenous contrast could compromise sensitivity. LUNG BASES: No significant abnormality is appreciated. AORTA: No significant abnormality is appreciated. LIVER/GB: Gallbladder is absent. Liver shows a stable appearance PANCREAS: No significant abnormality is seen. SPLEEN: Enlarged and a question some varices in the upper abdomen along the lesser curvature ADRENALS: No significant abnormality is seen. KIDNEYS: Scattered nonobstructive punctate metallic densities are present within the bilateral kidney s, no evident ureteral calculus REPRODUCTIVE ORGANS: No significant abnormality is seen. URINARY BLADDER: No significant abnormality is seen. BOWEL: Question some colonic wall thickening especially in the right colon similar to prior. FREE AIR: No Free Air is visible. ASCITES: There is ascites around the liver. Small amount of fluid is present within the pelvis. PELVIC ADENOPATHY: None visualized. RETROPERITONEAL ADENOPATHY: No Retroperitoneal Adenopathy visible. OSSEOUS STRUCTURES: No significant abnormality is seen. IMPRESSION: BILATERAL NONOBSTRUCTIVE NEPHROLITHIASIS. ASCITES. POSTOP CHANGES. SPLENOMEGALY. NONCONTRAST EXAM MAY LIMIT EVALUATION. CORRELATE FOR POSSIBLE PORTAL HYPERTENSION, UPPER ABDOMINAL VARICES, CIRRHOSIS. AD DITIONAL FINDINGS ABOVE.
--- NOTE | 2017-11-28 20:22 | XR ---
EXAMINATION TYPE: XR chest 2V DATE OF EXAM: 11/28/2017 COMPARISON: Prior chest 11/22/[address] abdomen pelvis same date HISTORY: Dizziness and vomiting blood TECHNIQUE: Frontal and lateral views of the chest are obtained. FINDINGS: There is no focal air space opacity, pleural effusion, or pneumothorax seen. Minimal patc hy basilar atelectatic changes are present. The cardiac silhouette size is within normal limits. Th e osseous structures are intact. IMPRESSION: No acute cardiopulmonary process. Correlate for cirrhosis, portal hypertension with francisco roesophageal varices.
[2017-11-28] MEDS ORDERED: MORPHINE SULFATE 4 MG/ML SYRINGE IVP STA (21:22)
[2017-11-28] MEDS ORDERED: traMADol 50 MG TAB PO PRN (21:46)
[2017-11-28] MEDS ORDERED: NALOXONE 0.4 MG/ML 1 ML VIAL IV PRN (21:46)
[2017-11-29 00:28] VITALS: BMI 21.9
[2017-11-29] MEDS: MORPHINE SULFATE 4 MG/ML SYRINGE IV PRN ×6 (00:32→20:58)
[2017-11-29] MEDS: LACTATED RINGERS 1,000 ML IV SCH ×3 (00:55→18:17)
[2017-11-29 01:20] LABS: Appearance,Urine Clear (Clear); Bilirubin,Urine Negative (Negative); Blood,Urine Negative (Negative); Color,Urine Yellow; Glucose,Urine (UA) Negative (Negative); Ketones,Urine Negative (Negative); Leukocyte Esterase,Urine Negative (Negative); Nitrite,Urine Negative (Negative); Protein,Urine Negative (Negative); Specific Gravity,Urine 1.011 (1.001-1.035)
[2017-11-29] MEDS: FUROSEMIDE 20 MG TAB PO SCH (08:01)
[2017-11-29] MEDS: MULTIVITAMINS, THERA 1 EACH TAB PO SCH (08:01)
[2017-11-29] MEDS: THIAMINE 100 MG TAB PO SCH (08:01)
[2017-11-29] MEDS: TAMSULOSIN 0.4 MG CAP.ER.24H PO SCH (08:01)
[2017-11-29] MEDS: PANTOPRAZOLE 40 MG/10 ML VIAL IV SCH (08:02)
[2017-11-29] MEDS: FOLIC ACID 1 MG TAB PO SCH (08:02)
[2017-11-29] MEDS: NICOTINE 14MG/24HR PATCH TRANSDERM SCH (08:36)
[2017-11-29 08:44] LABS: Anisocytosis Slight; Basophils % (A) 1 %; Eosinophils # (A) 0.3 k/uL (0-0.7); Eosinophils % (A) 8 %; HGB 7.1 gm/dL (13.0-17.5); Hypochromasia Marked; Lymphocytes # (A) 1.3 k/uL (1.0-4.8); Lymphocytes % (A) 35 %; MCH 32.8 pg (25.0-35.0); MCHC 32.3 g/dL (31.0-37.0); MCV 101.5 fL (80.0-100.0); Macrocytosis Moderate; Mean Platelet Volume 8.6; Monocytes # (A) 0.3 k/uL (0-1.0); Monocytes % (A) 7 %; Neutrophils # (A) 1.7 k/uL (1.3-7.7); Neutrophils % (A) 46 %; Platelet Count 130 k/uL (150-450); Poikilocytosis Slight; RBC 2.17 m/uL (4.30-5.90); RDW 18.2 % (11.5-15.5); WBC 3.7 k/uL (3.8-10.6)
[2017-11-29 09:35] LABS: Anion Gap 6 mmol/L; Blood Urea Nitrogen 5 mg/dL (9-20); Calcium 8.2 mg/dL (8.4-10.2); Carbon Dioxide 21 mmol/L (22-30); Chloride 115 mmol/L (98-107); Glucose 93 mg/dL (74-99); Potassium 3.5 mmol/L (3.5-5.1); Sodium 142 mmol/L (137-145)
[2017-11-29] MEDS: cefTRIAXone IN SWFI 1,000 MG/10 ML SYRINGE IVP SCH (12:26)
[2017-11-29] MEDS ORDERED: FUROSEMIDE 10 MG/ML 2 ML VIAL IV ONE ×2 (16:00→18:00)
[2017-11-29] MEDS: PROPRANOLOL 10 MG TAB PO SCH ×2 (17:05→21:01)
[2017-11-29] MEDS: diphenhydrAMINE 50 MG/ML 1 ML VIAL IVP PRN (20:39)
[2017-11-30] MEDS: MORPHINE SULFATE 4 MG/ML SYRINGE IV PRN ×5 (01:34→20:13)
[2017-11-30] MEDS: diphenhydrAMINE 50 MG/ML 1 ML VIAL IVP PRN ×2 (02:25→10:56)
[2017-11-30] MEDS: LACTATED RINGERS 1,000 ML IV SCH ×2 (05:58→14:37)
[2017-11-30] MEDS: cefTRIAXone IN SWFI 1,000 MG/10 ML SYRINGE IVP SCH (07:45)
[2017-11-30] MEDS: THIAMINE 100 MG TAB PO SCH (07:45)
[2017-11-30] MEDS: FUROSEMIDE 20 MG TAB PO SCH (07:45)
[2017-11-30] MEDS: FOLIC ACID 1 MG TAB PO SCH (07:45)
[2017-11-30] MEDS: MULTIVITAMINS, THERA 1 EACH TAB PO SCH (07:45)
[2017-11-30] MEDS: PANTOPRAZOLE 40 MG/10 ML VIAL IV SCH ×2 (07:45→20:14)
[2017-11-30] MEDS: TAMSULOSIN 0.4 MG CAP.ER.24H PO SCH (07:45)
[2017-11-30] MEDS: NICOTINE 14MG/24HR PATCH TRANSDERM SCH (07:46)
[2017-11-30] MEDS: PROPRANOLOL 10 MG TAB PO SCH ×3 (07:46→21:30)
--- NOTE | 2017-11-30 09:10 | P.PN ---
Subjective Progress Note Date: 11/30/17 Principal diagnosis: GI bleeding 42-year-old male with a history of EtOH abuse admitted with reports of melena and hematemesis EGD 1 week ago reported low-grade esophageal varices not actively bleeding at time of exam variceal banding not performed. Presently resting comfortably with no recurrent episodes of hematemesis or melena. Requesting diet advancement. Mild midepigastric discomfort no nausea or vomiting. Afebrile. Objective - Vital Signs Vital signs: Vital Signs Temp 98.2 F 11/30/17 07:00 Pulse 63 11/30/17 07:00 Resp 16 11/30/17 07:00 BP 113/68 11/30/17 07:00 Pulse Ox 92 L 11/30/17 07:00 Intake & Output 11/29/17 11/30/17 11/30/17 18:59 06:59 18:59 Intake Total 310 500 Balance 310 500 Weight 73.5 kg Intake: Oral 500 Blood Product 310 0 Rc As-1 Unit 0 0 [id number] Rc Pheresis 2 As3 Unit 310 [id number] Other: Voiding Method Toilet Urinal # Voids 2 3 # Bowel Movements 0 - Exam General appearance: The patient is alert, oriented, in no acute distress. HET: Head is normocephalic and atraumatic. Pupils are equal and reactive. Oropharynx is clear without lesions. Neck: Supple without lymphadenopathy. Trachea midline. Heart: S1 S2. Regular rate and rhythm. Lungs: No crackles or wheezes are heard. Abdomen: Soft, mild midepigastric tenderness, nondistended with bowel sounds. No peritoneal signs. No palpable organomegaly or masses. Extremities: Normal skin color and turgor. No cyanosis, rash, ulceration, clubbing, or edema. Radial and pedal pulses are 2/4 bilaterally. Neurological: No focal deficits. Strength and sensation are grossly intact. - Labs CBC & Chem 7: 11/29/17 08:25 11/29/17 08:25 Labs: Abnormal Lab Results - Last 24 Hours (Table) 11/28/17 11/29/17 Range/Units 19:27 08:25 Chloride 115 H (98-107) mmol/L Carbon Dioxide 21 L (22-30) mmol/L BUN 5 L (9-20) mg/dL Calcium 8.2 L (8.4-10.2) mg/dL Crossmatch See Detail Assessment and Plan (1) GI bleed Narrative/Plan: Recent EGD 1 week ago low-grade distal esophageal varices not actively bleeding Current Visit: No Status: Acute Code(s): K92.2 - GASTROINTESTINAL HEMORRHAGE , UNSPECIFIED SNOMED Code(s): 57741516 (2) Melena Current Visit: Yes Status: Acute Code(s): K92.1 - MELENA SNOMED Code(s): 0836150 (3) Portal hypertension Current Visit: Yes Status: Acute Code(s): K76.6 - PORTAL HYPERTENSION SNOMED Code(s): 57082728 (4) Esophageal varices Current Visit: Yes Status: Acute Code(s): I85.00 - ESOPHAGEAL VARICES WITHOUT BLEEDING SNOMED Code(s): 59887567 (5) Anemia Narrative/Plan: acute on chronic component of acute blood loss Current Visit: Yes Status: Acute Code(s): D64.9 - ANEMIA, UNSPECIFIED SNOMED Code(s): 359258579 (6) Hematemesis Current Visit: No Status: Acute Code(s): K92.0 - HEMATEMESIS SNOMED Code(s ): 8639875 (7) Liver disease due to alcohol Current Visit: No Status: Acute Code(s): K70.9 - ALCOHOLIC LIVER DISEASE, UNSPECIFIED SNOMED Code(s): 81570038 (8) Coagulopathy Current Visit: Yes Status: Acute Code(s): D68.9 - COAGULATION DEFECT, UNSPECIFIED SNOMED Code(s): 84693475 Plan: 1. Protonix 40 mg twice a day. Inderal 10 mg 3 times daily. Low residue diet. CBC in a.m. if stable may discharge. Avoid NSAIDs and alcohol. Return to office in 2-3 weeks for reevaluation. Assessment and plan a care discussed with Dr. Huff
--- NOTE | 2017-11-30 09:22 | HP ---
HISTORY AND PHYSICAL DATE OF SERVICE: 11/29/2017 CHIEF COMPLAINTS: Anemia, weakness and GI bleed. HISTORY OF PRESENT ILLNESS: This 42-year-old gentleman with a past medical history of multiple medical problems including asthma, history of polysubstance abuse, history of alcohol being followed by Dr. Guevara in the outpatient setting was noted to have dizziness and vomiting. The patient had esophageal varices. The patient had hematemesis, lightheadedness and anemia. The hemoglobin was found to be 7.8 and 7.1. The patient admitted for further evaluation and treatment. There is no history of any fever or rigors. No history of headache, loss of consciousness or seizures at this time. PAST MEDICAL HISTORY: History of asthma, history of liver disease, history pneumonia, history EtOH abuse, liver cirrhosis, abdominal ascites, pancreatitis. MEDICATIONS: Medications prior to admission include home medications are: 1. Vitamin B1 thiamine 100 mg p.o. daily. 2. Protonix 40 mg p.o. daily. 3. Multiple vitamins 1 p.o. daily. 4. Lasix 20 mg daily. 5. Folic acid 1 mg daily. 6. Inderal 10 mg p.o. t.i.d. ALLERGIES: Allergies are none. FAMILY HISTORY: History of hypertension in the family, history of brain aneurysm. SOCIAL HISTORY: History of alcohol, THC, history of smoker. REVIEW OF SYSTEMS: ENT: No diminished hearing or vision. CARDIOVASCULAR SYSTEM: No angina. RESPIRATORY SYSTEM: No cough or hemoptysis. GI: As mentioned earlier. : No dysuria. NERVOUS SYSTEMS: No numbness or weakness. ALLERGY/IMMUNOLOGY: No asthma or hayfever. MUSCULOSKELETAL: As mentioned earlier. HEMATOLOGY/ONCOLOGY: No history of anemia. ENDOCRINE: No history of diabetes, hypothyroidism. CONSTITUTIONAL: As mentioned earlier. DERMATOLOGY: Negative. RHEUMATOLOGY: Negative. PSYCHIATRY: As mentioned earlier. PHYSICAL EXAMINATION: The patient is alert and oriented x3. Pulse 66, blood pressure 125/67, respiration 20, temperature 97.6, pulse ox 97% on room air. HEENT: Conjunctivae normal. Oral mucosa moist. Neck is no jugular venous distention. No carotid bruit. No lymph node enlargement. CARDIOVASCULAR: S1 and S2 muffled. No S3, no S4. RESPIRATORY: Breath sounds diminished in the bases. Scattered rhonchi, no crackles. ABDOMEN: Soft. Mild diffuse distention present. No guarding. No rigidity. No mass palpable. Mild diffuse discomfort on palpation. LEGS: No edema, no swelling. NERVOUS SYSTEM: Higher function as mentioned earlier. Moves all 4 limbs. No focal motor or sensory deficits. LYMPHATICS: No lymphadenopathy of the neck, axillae or groin. SKIN: No ulcer, rash or bleeding. LABS: WBC 3.7, hemoglobin 7.1. Other labs are noted. ASSESSMENT: 1. Hematemesis, anemia, possibly esophageal variceal bleeding with acute blood loss anemia. Hemoglobin 7.1. 2. Mild pancytopenia, possibly secondary to cirrhosis of liver. 3. Acute cirrhosis of liver secondary to alcohol. 4. History of nicotine dependence. 5. History of asthma. 6. History of pancreatitis. 7. History of gallstones and nephrolithiasis. 8. History of posttraumatic stress disorder. RECOMMENDATION AND DISCUSSION: In this 42-year-old gentleman who presented with multiple complex medical issues. Will monitor the patient closely. Continue the current medications. I would recommend 2 units transfusion, Gastroenterology consultation for possible EGD. Otherwise I would recommend to DVT prophylaxis, alcohol cessation has been advised, proton pump inhibitors. Prognosis guarded because of multiple complex medical issues. Repeat labs are ordered. Further recommendations to follow. Prognosis extremely guarded because of multiple complex medical issues and we will cautiously monitor the fluid electrolyte balance. Also Lasix 20 mg has been recommended in between. The patient is not showing any evidence of any withdrawals at this time, but however, we will continue to monitor. Further recommendations to follow. Ativan may be used on a p.r.n. basis. A copy of dictation forwarded to Dr. Guevara who is the primary physician. MMODL / IJN: [id number] / MAGGI
[2017-11-30 09:33] LABS: Anisocytosis Slight; Basophils % (A) 1 %; Eosinophils # (A) 0.3 k/uL (0-0.7); Eosinophils % (A) 6 %; HCT 26.9 % (39.0-53.0); Hypochromasia Moderate; Lymphocytes # (A) 1.3 k/uL (1.0-4.8); Lymphocytes % (A) 29 %; MCHC 31.8 g/dL (31.0-37.0); MCV 97.4 fL (80.0-100.0); Macrocytosis Slight; Mean Platelet Volume 8.4; Monocytes # (A) 0.4 k/uL (0-1.0); Monocytes % (A) 10 %; Neutrophils # (A) 2.3 k/uL (1.3-7.7); Neutrophils % (A) 52 %; Platelet Count 122 k/uL (150-450); Poikilocytosis Slight; RBC 2.77 m/uL (4.30-5.90); RDW 18.9 % (11.5-15.5); WBC 4.4 k/uL (3.8-10.6)
[2017-11-30 09:48] LABS: ALT 32 U/L (21-72); AST 65 U/L (17-59); Albumin 3.2 g/dL (3.5-5.0); Alkaline Phosphatase 67 U/L (38-126); Anion Gap 8 mmol/L; Blood Urea Nitrogen 5 mg/dL (9-20); Calcium 8.5 mg/dL (8.4-10.2); Carbon Dioxide 26 mmol/L (22-30); Chloride 105 mmol/L (98-107); Glucose 154 mg/dL (74-99); Potassium 3.1 mmol/L (3.5-5.1); Sodium 139 mmol/L (137-145); Total Bilirubin 3.5 mg/dL (0.2-1.3); Total Protein 6.8 g/dL (6.3-8.2)
[2017-11-30 09:56] LABS: HGB 8.6 gm/dL (13.0-17.5)
--- NOTE | 2017-11-30 11:08 | CONS ---
CONSULTATION DATE OF SERVICE: 11/29/2017 REASON FOR THE CONSULTATION: Acute GI bleed. HISTORY OF PRESENT ILLNESS: The patient is a 42-year-old white male with history of alcoholism who was just discharged from the hospital 3 days ago at which time he was admitted with an acute upper GI bleed. He underwent an upper endoscopy by Dr. Anderson which was performed on 22 of November, which showed small esophageal varices and portal hypertensive gastropathy. The patient after being discharged black tarry stools and became somewhat dizzy and was worried and came into the emergency room and subsequently admitted to the hospital for further evaluation. Since being in the hospital, he had one episode of bowel movement. No further episodes of nausea and vomiting. In the emergency room, he was noted to have a hemoglobin of 7.5 g/dL. He is feeling better this morning. He denies any abdominal pain. PAST MEDICAL HISTORY: His past medical history is significant for chronic alcohol abuse, recent acute upper GI bleed for which he had an upper endoscopy by Dr. Anderson about a week ago. MEDICATIONS: Medications at home include multivitamin, Lasix, vitamin B1, Flomax, and Protonix. ALLERGIES: None. SOCIAL HISTORY: No smoking. Alcohol use as mentioned above. REVIEW OF SYSTEMS: CARDIOPULMONARY: No chest pain or shortness of breath. GENITOURINARY: No dysuria or hematuria. MUSCULOSKELETAL: Unremarkable. SKIN: Unremarkable. ENDOCRINE: Unremarkable. PSYCHIATRIC: Unremarkable. NEUROLOGY: Unremarkable. ENT/VISION: Unremarkable. CONSTITUTIONAL: No recent weight loss. No fever, chills, night sweats. HEMATOLOGY: Anemia as mentioned above. ENDOCRINE: Unremarkable. PAST SURGICAL HISTORY: Appendectomy, cholecystectomy, orthopedic surgery, recent upper endoscopy, right knee arthroscopy, cystoscopy. PHYSICAL EXAMINATION: On physical examination, he appears comfortable. blood pressure 133/72, pulse rate 69, temperature 97.2. HEENT examination unremarkable. Conjunctivae pink. Sclerae anicteric. Oral cavity, no oral lesions. NECK: No JVD or . HEART: Regular rate and rhythm. ABDOMEN: Soft. Bowel sounds are positive. No organomegaly. EXTREMITIES: No pedal edema. SKIN: No rashes. NEURO: Alert and oriented x3. LABS: Following are the labs that were done at the time of admission to the hospital, WBC 5.5, hemoglobin 7.8. This morning hemoglobin is down to 7.1. Platelets 130, WBC 3.7. Currently receiving 1 unit of blood transfusion. BUN is 5 and creatinine 0.66. IMPRESSION: for the last 2 days duration. Patient with history of heavy alcohol abuse, possible underlying alcoholic cirrhosis of the liver. Recently was discharged from the hospital when he was admitted with acute upper gastrointestinal bleed underwent upper endoscopy by Dr. Anderson on November 22 that showed evidence of small esophageal varices and portal hypertensive gastropathy. He was recently seen in office on outpatient basis and was started on Inderal 10 mg 3 times daily. The patient presents with a small amount of coffee-grounds emesis but presently hemodynamically stable. No further evidence of bleeding in the last 24 hours. Hemoglobin was 7.1, receiving 2 units of blood transfusion. RECOMMENDATIONS: 1. Start on a clear liquid diet. 2. No reason to repeat an upper endoscopy at the present time, since he had it last week. 3. CBC in the morning. 4. Continue with Protonix 40 mg q.12 hours and we will follow the patient closely during his hospital stay. Thank you for this consultation. MMODL / IJN: [id number] /
[2017-11-30] MEDS ORDERED: POTASSIUM CHLORIDE ER 20 MEQ TAB.ER PO STA (15:04)
--- NOTE | 2017-11-30 15:47 | PN ---
PROGRESS NOTE DATE OF SERVICE: 11/30/2017. INTERVAL HISTORY: This 42-year-old gentleman admitted with anemia and as well as possibly cellulitis had hemoglobin of 7.1. After transfusion, hemoglobin is stable at 8.6. Gastroenterology following the patient closely and recommended proton pump inhibitors. Repeat CBC. No chest pain. No palpitations. No fever. PHYSICAL EXAM: Alert and oriented times three. Pulse 64, blood pressure 94/58, respiration 18, temperature 98.2, pulse ox 98% on room air. HEENT: Conjunctivae pale. Oral mucosa moist. NECK: No jugular venous distention. No carotid bruit. No lymph node enlargement. CARDIOVASCULAR SYSTEM: S1, S2. RESPIRATION: Breath sounds diminished at the bases. No rhonchi. No crackles. ABDOMEN: Soft, nontender. No mass palpable. LEGS: No edema and no swelling. NERVOUS SYSTEM: Higher functions as mentioned earlier. Moves all four extremities. No focal motor or sensory deficits. LYMPHATICS: No lymph nodes palpable in the neck, axilla or groin. SKIN: No ulcer, rash or bleeding. LABS: WBC 4.2, hemoglobin is 8.2, sodium 130, potassium 3.1. ASSESSMENT: 1. Hematemesis anemia possible esophageal variceal bleeding with acute blood loss anemia. 2. Pancytopenia. Possibly secondary to cirrhosis of the liver. 3. Hypokalemia. 4. 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 5. History of nicotine dependence. 6. History of asthma. 7. History of pancreatitis. 8. History of gallstone and nephrolithiasis. 9. History of PTSD. RECOMMENDATIONS AND DISCUSSION: Recommend to continue current medications, management and symptomatic treatment. Otherwise at this time, supplement potassium. Advance diet. Monitor hemoglobin closely. Gastroenterology not planning endoscopy right now currently and further recommendations to follow. Prognosis guarded. MMODL / IJN: [id number] /
[2017-11-30] MEDS ORDERED: diphenhydrAMINE 50 MG/ML 1 ML VIAL ONE (23:55)
[2017-11-30] MEDS ORDERED: MORPHINE SULFATE 4 MG/ML SYRINGE ONE (23:55)
[2017-12-01] MEDS ORDERED: MORPHINE SULFATE 4 MG/ML SYRINGE ONE (04:00)
[2017-12-01 06:19] VITALS: BP 118/58; PULSE 65; RESP 16; TEMP 97.4
[2017-12-01] MEDS: TAMSULOSIN 0.4 MG CAP.ER.24H PO SCH (07:59)
[2017-12-01] MEDS: MULTIVITAMINS, THERA 1 EACH TAB PO SCH (07:59)
[2017-12-01] MEDS: FUROSEMIDE 20 MG TAB PO SCH (07:59)
[2017-12-01] MEDS: NICOTINE 14MG/24HR PATCH TRANSDERM SCH (07:59)
[2017-12-01] MEDS: PANTOPRAZOLE 40 MG/10 ML VIAL IV SCH (07:59)
[2017-12-01] MEDS: PROPRANOLOL 10 MG TAB PO SCH (07:59)
[2017-12-01] MEDS: THIAMINE 100 MG TAB PO SCH (07:59)
[2017-12-01] MEDS: FOLIC ACID 1 MG TAB PO SCH (08:00)
[2017-12-01] MEDS: MORPHINE SULFATE 4 MG/ML SYRINGE IV PRN ×2 (08:00→12:20)
[2017-12-01] MEDS: cefTRIAXone IN SWFI 1,000 MG/10 ML SYRINGE IVP SCH (08:00)
[2017-12-01] MEDS: diphenhydrAMINE 50 MG/ML 1 ML VIAL IVP PRN (08:18)
[2017-12-01] MEDS ORDERED: POTASSIUM CHLORIDE ER 20 MEQ TAB.ER PO SCH (09:00)
[2017-12-01 09:38] LABS: Anisocytosis Slight; Basophils # (A) 0.1 k/uL (0-0.2); Basophils % (A) 1 %; Eosinophils # (A) 0.3 k/uL (0-0.7); Eosinophils % (A) 6 %; HCT 26.3 % (39.0-53.0); HGB 8.4 gm/dL (13.0-17.5); Hypochromasia Moderate; Lymphocytes # (A) 1.4 k/uL (1.0-4.8); Lymphocytes % (A) 30 %; Macrocytosis Slight; Monocytes # (A) 0.4 k/uL (0-1.0); Monocytes % (A) 9 %; Neutrophils # (A) 2.3 k/uL (1.3-7.7); Neutrophils % (A) 49 %; Platelet Count 105 k/uL (150-450); Poikilocytosis Slight; RBC 2.71 m/uL (4.30-5.90); RDW 18.8 % (11.5-15.5); WBC 4.6 k/uL (3.8-10.6)
[2017-12-01 09:49] LABS: ALT 34 U/L (21-72); AST 50 U/L (17-59); Albumin 2.8 g/dL (3.5-5.0); Alkaline Phosphatase 82 U/L (38-126); Anion Gap 7 mmol/L; Blood Urea Nitrogen 5 mg/dL (9-20); Calcium 8.4 mg/dL (8.4-10.2); Carbon Dioxide 26 mmol/L (22-30); Chloride 106 mmol/L (98-107); Glucose 118 mg/dL (74-99); Potassium 3.7 mmol/L (3.5-5.1); Sodium 139 mmol/L (137-145); Total Bilirubin 1.7 mg/dL (0.2-1.3); Total Protein 6.2 g/dL (6.3-8.2)
--- NOTE | 2017-12-01 10:36 | P.PN ---
Subjective Progress Note Date: 12/01/17 Principal diagnosis: GI bleeding 42-year-old male with a history of EtOH abuse admitted with reports of melena and hematemesis EGD 1 week ago reported low-grade esophageal varices not actively bleeding at time of exam variceal banding not performed. Presently resting comfortably with no recurrent episodes of hematemesis or melena. Tolerating diet advancement. Mild midepigastric discomfort no nausea or vomiting. Afebrile. Hemoglobin 8.4. Objective - Vital Signs Vital signs: Vital Signs Temp 97.4 F L 12/01/17 06:00 Pulse 65 12/01/17 06:00 Resp 16 12/01/17 06:00 BP 118/58 12/01/17 06:00 Pulse Ox 97 12/01/17 06:00 Intake & Output 11/30/17 12/01/17 12/01/17 18:59 06:59 18:59 Other: Voiding Method Toilet Urinal # Voids 3 2 - Exam General appearance: The patient is alert, oriented, in no acute distress. HET: Head is normocephalic and atraumatic. Pupils are equal and reactive. Oropharynx is clear without lesions. Neck: Supple without lymphadenopathy. Trachea midline. Heart: S1 S2. Regular rate and rhythm. Lungs: No crackles or wheezes are heard. Abdomen: Soft, mild midepigastric tenderness, nondistended with bowel sounds. No peritoneal signs. No palpable organomegaly or masses. Extremities: Normal skin color and turgor. No cyanosis, rash, ulceration, clubbing, or edema. Radial and pedal pulses are 2/4 bilaterally. Neurological: No focal deficits. Strength and sensation are grossly intact. - Labs CBC & Chem 7: 12/01/17 08:42 12/01/17 08:42 Labs: Abnormal Lab Results - Last 24 Hours (Table) 11/30/17 12/01/17 12/01/17 Range/Units 09:21 08:42 08:42 RBC 2.71 L (4.30-5.90) m/uL Hgb 8.4 L (13.0-17.5) gm/dL Hct 26.3 L (39.0-53.0) % RDW 18.8 H (11.5-15.5) % Plt Count 105 L (150-450) k/uL BUN 5 L (9-20) mg/dL Creatinine 0.58 L (0.66-1.25) mg/dL Glucose 118 H (74-99) mg/dL Magnesium 1.2 L (1.6-2.3) mg/dL Total Bilirubin 1.7 H (0.2-1.3) mg/dL Total Protein 6.2 L (6.3-8.2) g/dL Albumin 2.8 L (3.5-5.0) g/dL Assessment and Plan (1) GI bleed Narrative/Plan: Recent EGD 1 week ago low-grade distal esophageal varices not actively bleeding Current Visit: No Status: Acute Code(s): K92.2 - GASTROINTESTINAL HEMORRHAGE , UNSPECIFIED SNOMED Code(s): 75629907 (2) Melena Current Visit: Yes Status: Acute Code(s): K92.1 - MELENA SNOMED Code(s): 2253196 (3) Portal hypertension Current Visit: Yes Status: Acute Code(s): K76.6 - PORTAL HYPERTENSION SNOMED Code(s): 18381044 (4) Esophageal varices Current Visit: Yes Status: Acute Code(s): I85.00 - ESOPHAGEAL VARICES WITHOUT BLEEDING SNOMED Code(s): 31886806 (5) Anemia Narrative/Plan: acute on chronic component of acute blood loss Current Visit: Yes Status: Acute Code(s): D64.9 - ANEMIA, UNSPECIFIED SNOMED Code(s): 674710322 (6) Hematemesis Current Visit: No Status: Acute Code(s): K92.0 - HEMATEMESIS SNOMED Code(s ): 2144280 (7) Liver disease due to alcohol Current Visit: No Status: Acute Code(s): K70.9 - ALCOHOLIC LIVER DISEASE, UNSPECIFIED SNOMED Code(s): 30195805 (8) Coagulopathy Current Visit: Yes Status: Acute Code(s): D68.9 - COAGULATION DEFECT, UNSPECIFIED SNOMED Code(s): 13658406 Plan: 1. Protonix 40 mg twice a day. Inderal 10 mg 3 times daily. Regular diet. Discharge per medicine. Avoid NSAIDs and alcohol. Return to office in 2-3 weeks for reevaluation. Assessment and plan a care discussed with Dr. Huff
--- NOTE | 2017-12-01 18:12 | DS ---
DISCHARGE SUMMARY FINAL DIAGNOSES: 1. Hematemesis with anemia, possibly esophageal bleeding with acute blood loss anemia, improved. 2. Pancytopenia possibly secondary cirrhosis of the liver and alcohol. 3. Hypokalemia. 4. Cirrhosis secondary to alcohol. 5. History of nicotine dependence. 6. History of asthma. 7. History of pancreatitis. 8. Gallstones. 9. Nephrolithiasis. 10.History of PTSD. DISCHARGE DISPOSITION: The patient is being discharged in stable condition with guarded prognosis. Gastroenterology cleared the patient for discharge. HISTORY OF PRESENT ILLNESS: This 42-year-old gentleman admitted with GI bleed and anemia. The patient was transfused. Hemoglobin stabilized, 8.4. No active bleeding. Gastroenterology saw the patient and recommended outpatient followup. On exam, vitals are stable. Cardiovascular: S1, S2. Abdomen soft. Nontender. Nervous system: No focal deficits. Recommend EtOH cessation. DISCHARGE ADVICE AND MEDICATIONS: 1. Discharge diet is cardiac diet. 2. Activity limited until followup. 3. Follow up with Dr. Guevara in 2-3 days. MEDICATIONS: Medications will be as follows: 1. Folic acid 1 mg p.o. daily. 2. Inderal 10 mg p.o. t.i.d. 3. Lasix 20 mg p.o. daily. 4. Multivitamins 1 p.o. daily. 5. Habitrol 14 daily. 6. Protonix 40 mg p.o. b.i.d. 7. Flomax 0.4 daily. 8. Thiamine 100 mg p.o. daily. Follow up with Dr. Huff as recommended. MMODL / IJN: [id number] /
== END 2017-12-01 14:44 | disposition home or self-care (01) | DRG 432 ==
LOC: EC 18:20 → 4MS4W 21:46
PROVIDERS: ADMIT Internal Medicine; ATTEND Internal Medicine
PROC: 30233N1 Transfusion of Nonautologous Red Blood Cells into Peripheral Vein, Percutaneous Approach (ICD-10-PCS; principal; 2017-11-29)
DX: K70.31 Alcoholic cirrhosis of liver with ascites (principal); I85.11 Secondary esophageal varices with bleeding; D62 Acute posthemorrhagic anemia; K76.6 Portal hypertension; D61.818 Other pancytopenia; E87.6 Hypokalemia; F17.200 Nicotine dependence, unspecified, uncomplicated; F43.10 Post-traumatic stress disorder, unspecified; J45.909 Unspecified asthma, uncomplicated; K31.89 Other diseases of stomach and duodenum; K29.70 Gastritis, unspecified, without bleeding; R79.1 Abnormal coagulation profile; Z82.49 Family history of ischemic heart disease and other diseases of the circulatory system; Z87.442 Personal history of urinary calculi; Z86.14 Personal history of Methicillin resistant Staphylococcus aureus infection; Z90.49 Acquired absence of other specified parts of digestive tract
CPT/HCPCS: 36415; 70450; 71046; 74176; 80048; 80053; 80076; 81003; 83690; 83735; 84484; 85025; 85610; 86850; 86870; 86880; 86900; 86901; 86902; 86920; 93005; 96361; 96374; 96375; 99285

== ENCOUNTER 2017-12-02 21:06 | Inpatient (IN) | payer OTHER ==
[2017-12-02] MEDS ORDERED: PANTOPRAZOLE 40 MG/10 ML VIAL IVP STA (21:32)
[2017-12-02 22:19] LABS: Anisocytosis Slight; Basophils # (A) 0.1 k/uL (0-0.2); Basophils % (A) 1 %; Eosinophils # (A) 0.4 k/uL (0-0.7); Eosinophils % (A) 4 %; HCT 30.5 % (39.0-53.0); HGB 9.7 gm/dL (13.0-17.5); Hypochromasia Moderate; Lymphocytes % (A) 21 %; MCH 31.2 pg (25.0-35.0); MCHC 31.9 g/dL (31.0-37.0); MCV 97.9 fL (80.0-100.0); Macrocytosis Slight; Mean Platelet Volume 8.8; Monocytes % (A) 10 %; Neutrophils # (A) 5.7 k/uL (1.3-7.7); Neutrophils % (A) 59 %; Platelet Count 143 k/uL (150-450); Poikilocytosis Slight; RBC 3.11 m/uL (4.30-5.90); RDW 18.9 % (11.5-15.5); WBC 9.6 k/uL (3.8-10.6)
[2017-12-02 22:24] LABS: INR 1.7 (<1.2); Prothrombin Time 15.2 sec (9.0-12.0)
[2017-12-02 22:31] LABS: ALT 35 U/L (21-72); AST 60 U/L (17-59); Albumin 3.6 g/dL (3.5-5.0); Alkaline Phosphatase 106 U/L (38-126); Anion Gap 10 mmol/L; Blood Urea Nitrogen 5 mg/dL (9-20); Calcium 8.9 mg/dL (8.4-10.2); Carbon Dioxide 20 mmol/L (22-30); Chloride 113 mmol/L (98-107); Glucose 105 mg/dL (74-99); Potassium 3.5 mmol/L (3.5-5.1); Sodium 143 mmol/L (137-145); Total Bilirubin 1.6 mg/dL (0.2-1.3); Total Protein 7.5 g/dL (6.3-8.2)
--- NOTE | 2017-12-02 22:47 | XR ---
EXAMINATION TYPE: XR abdomen acute w cxr DATE OF EXAM: 12/02/2017 COMPARISON: 11/16/2017 HISTORY: Vomiting blood TECHNIQUE: 4 views including chest x-ray upright and supine abdomen FINDINGS: There is no heart failure nor confluent pneumonic infiltrate. There is some subsegmental atelectasis at the right lung base. There are chest leads. Bowel gas pattern is normal. There is no sign of intes tinal obstruction or pneumoperitoneum. Fecal pattern is normal. There are clips from cholecystectomy. There are no pathologic calcifications. IMPRESSION: Subsegmental atelectasis at the right lung base. Nonacute abdomen. No change compared to 11/16/2017.
[2017-12-03] MEDS ORDERED: PANTOPRAZOLE 40 MG/10 ML VIAL ONE (00:13)
[2017-12-03] MEDS ORDERED: MORPHINE SULFATE 2 MG/ML SYRINGE ONE (00:13)
[2017-12-03] MEDS ORDERED: MORPHINE SULFATE 4 MG/ML SYRINGE ONE ×2 (04:26→04:30)
[2017-12-03] MEDS ORDERED: ONDANSETRON 4 MG/2 ML VIAL IVP PRN (04:46)
[2017-12-03] MEDS ORDERED: LORazepam 2 MG/ML INJ IV PRN (04:47)
[2017-12-03] MEDS: SODIUM CHLORIDE 0.9% 1,000 ML IV SCH ×2 (07:16→16:44)
[2017-12-03 08:27] LABS: Anisocytosis Slight; HCT 26.8 % (39.0-53.0); HGB 8.7 gm/dL (13.0-17.5); Hypochromasia Marked; MCHC 32.3 g/dL (31.0-37.0); MCV 99.1 fL (80.0-100.0); Macrocytosis Moderate; Mean Platelet Volume 8.3; Platelet Count 122 k/uL (150-450); Poikilocytosis Slight; RBC 2.71 m/uL (4.30-5.90); WBC 6.5 k/uL (3.8-10.6)
[2017-12-03 08:31] LABS: ALT 34 U/L (21-72); AST 62 U/L (17-59); Alkaline Phosphatase 77 U/L (38-126); Anion Gap 7 mmol/L; Blood Urea Nitrogen 6 mg/dL (9-20); Calcium 8.1 mg/dL (8.4-10.2); Carbon Dioxide 21 mmol/L (22-30); Chloride 113 mmol/L (98-107); Glucose 94 mg/dL (74-99); Potassium 3.3 mmol/L (3.5-5.1); Sodium 141 mmol/L (137-145); Total Bilirubin 1.5 mg/dL (0.2-1.3); Total Protein 6.5 g/dL (6.3-8.2)
[2017-12-03] MEDS: MORPHINE SULFATE 4 MG/ML SYRINGE IVP PRN ×4 (08:43→20:34)
[2017-12-03] MEDS ORDERED: PANTOPRAZOLE 40 MG/10 ML VIAL IVP SCH (09:00)
--- NOTE | 2017-12-03 09:12 | P.CONS ---
History of Present Illness - Reason for Consult Consult date: 12/03/17 Hematemesis Requesting physician: Dagmar Vargas - History of Present Illness 42-year-old male with a history of EtOH abuse underlying alcohol liver disease portal hypertension ascites esophageal varices portal hypertensive gastropathy. Patient was hospitalized this past week with acute hematemesis melena treated conservatively. He underwent EGD evaluation November 22 with evidence of low-grade nonbleeding distal esophageal varices. Discharged 2 days ago with a hemoglobin of 8.4. He received 1 units of blood earlier this week. Results the emergency room with recurrent coffee-ground emesis with mixed hematemesis. No melena. Mild midepigastric discomfort. Admission hemoglobin 9.7 presently 8.7. Platelet 122. INR 1.7. BUN 5. Crit 0.6. Total bilirubin 1.6. AST 60. ALT 35. AP 106. Serum alcohol level 247; consuming alcohol prior to admission. Afebrile. Acute abdominal series nonacute. Review of Systems Constitutional: Denies fever, chills, sweats, weight gain, or loss. HEENT: Negative for migraines, blurred vision or loss, earaches, drainage, tinnitus, oral mucosal lesions, dysphagia, or odynophagia. Cardiac: Negative for chest pain, arrhythmias, or palpitation. Respiratory: Negative for shortness of breath, hemoptysis, cough, or sputum production. Gastrointestinal: See HPI for pertinent findings. Genitourinary: Negative for hematuria, urgency, frequency, polyuria, dysuria, or penile discharge. Musculoskeletal: Negative for muscle aches, swelling, arthritis, and arthralgias. Neurologic: Negative for stroke or TIA. Endocrine: Negative for thyroid problems. Skin: Negative for rash or itching. Psychiatric: Negative history for depression and anxiety Past Medical History Past Medical History: Asthma, Liver Disease, Pneumonia Additional Past Medical History / Comment(s): ETOH abuse, liver cirrhosis, abdominal ascites, pancreatitis, multiple gallstones, nephrolithiasis, chronic anemia, esophageal varices. 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 Past Anesthesia/Blood Transfusion Reactions: Previous Problems w/ Anesthesia Additional Past Anesthesia/Blood Transfusion Reaction / Comm: Woke up during scope procedure. Past Psychological History: PTSD Additional Psychological History / Comment(s): Pt lives in his apartment. His girlfriend and her son are usually there with him. He does not drive, he gets to [facility] by his girlfriend, family or bus. 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 Smoking Status: Current every day smoker Past Alcohol Use History: Occasional Additional Past Alcohol Use History / Comment(s): Pt states he started smoking in 1983 and is a ppd smoker. PT states reduced the amount of alcohol to a few days a week, drinking 2-3 drinks on those occasions. Pt states used to drink a fifth or 1/2 gallon and some beers daily. Past Drug Use History: Marijuana Additional Drug Use History / Comment(s): Pt states he smokes marijuana on occasion. No other drug use. - Past Family History Mother Family Medical History: Hypertension Father Additional Family Medical History / Comment(s): Prostate issues. Brain aneurysm. Medications and Allergies Home Medications Medication Instructions Recorded Confirmed Type Folic Acid 1 mg PO DAILY@1200 09/01/17 12/02/17 History Multivitamins, Thera [Multivitamin 1 tab PO DAILY #30 tablet 09/03/17 12/02/17 Rx (formulary)] Thiamine [Vitamin B-1] 100 mg PO DAILY #30 tablet 09/03/17 12/02/17 Rx Furosemide [Lasix] 20 mg PO DAILY #10 tab 10/03/17 12/02/17 Rx Propranolol [Inderal] 10 mg PO TID 11/29/17 12/02/17 History Nicotine 14Mg/24Hr Patch [Habitrol] 1 patch TRANSDERM DAILY #30 patch 12/01/17 12/02/17 Rx Pantoprazole Sodium [Protonix] 40 mg PO BID #60 tablet. 12/01/17 12/02/17 Rx Tamsulosin [Flomax] 0.4 mg PO DAILY cap.er.24h 12/01/17 12/02/17 Rx Allergies Allergy/AdvReac Type Severity Reaction Status Date / Time No Known Allergies Allergy Verified 12/02/17 21:34 Physical Exam Vitals: Vital Signs Temp Pulse Pulse Resp BP BP Pulse Ox 12/03/17 06:18 97.6 F 72 18 94/49 96 12/03/17 01:00 97.5 F L 83 18 123/63 99 12/02/17 22:51 99.0 F 79 19 128/58 99 12/02/17 22:10 78 18 119/59 99 12/02/17 21:14 98.4 F 80 18 110/64 100 Intake and Output 12/02/17 12/03/17 12/03/17 22:59 06:59 14:59 Intake Total 850 240 Output Total 300 Balance 550 240 Intake: Oral 850 240 Output: Urine 300 Other: Voiding Method Urinal Weight 72.575 kg 76.43 kg General appearance: The patient is alert, oriented, in no acute distress. HET: Head is normocephalic and atraumatic. Pupils are equal and reactive. Oropharynx is clear without lesions. Neck: Supple without lymphadenopathy. Trachea midline. Heart: S1 S2. Regular rate and rhythm. Lungs: No crackles or wheezes are heard. Abdomen: Soft, mild midepigastric tenderness, nondistended with bowel sounds. No peritoneal signs. No palpable organomegaly or masses. Extremities: Normal skin color and turgor. No cyanosis, rash, ulceration, clubbing, or edema. Radial and pedal pulses are 2/4 bilaterally. Neurological: No focal deficits. Strength and sensation are grossly intact. Results CBC & Chem 7: 12/03/17 07:53 12/03/17 07:53 Labs: Abnormal Lab Results - Last 24 Hours (Table) 12/02/17 12/02/17 12/02/17 Range/Units 22:06 22:06 22:06 RBC 3.11 L (4.30-5.90) m/uL Hgb 9.7 L (13.0-17.5) gm/dL Hct 30.5 L (39.0-53.0) % RDW 18.9 H (11.5-15.5) % Plt Count 143 L (150-450) k/uL PT 15.2 H (9.0-12.0) sec INR 1.7 H (<1.2) Potassium (3.5-5.1) mmol/L Chloride 113 H (98-107) mmol/L Carbon Dioxide 20 L (22-30) mmol/L BUN 5 L (9-20) mg/dL Creatinine 0.60 L (0.66-1.25) mg/dL Glucose 105 H (74-99) mg/dL Calcium (8.4-10.2) mg/dL Total Bilirubin 1.6 H (0.2-1.3) mg/dL AST 60 H (17-59) U/L Albumin (3.5-5.0) g/dL 12/03/17 12/03/17 Range/Units 07:53 07:53 RBC 2.71 L (4.30-5.90) m/uL Hgb 8.7 L (13.0-17.5) gm/dL Hct 26.8 L (39.0-53.0) % RDW 19.0 H (11.5-15.5) % Plt Count 122 L (150-450) k/uL PT (9.0-12.0) sec INR (<1.2) Potassium 3.3 L (3.5-5.1) mmol/L Chloride 113 H (98-107) mmol/L Carbon Dioxide 21 L (22-30) mmol/L BUN 6 L (9-20) mg/dL Creatinine 0.55 L (0.66-1.25) mg/dL Glucose (74-99) mg/dL Calcium 8.1 L (8.4-10.2) mg/dL Total Bilirubin 1.5 H (0.2-1.3) mg/dL AST 62 H (17-59) U/L Albumin 3.0 L (3.5-5.0) g/dL Abdominal x-ray: report reviewed (Dr. Huff) Assessment and Plan (1) Hematemesis Current Visit: Yes Status: Acute Code(s): K92.0 - HEMATEMESIS SNOMED Code( s): 4711349 (2) Alcoholic liver disease Current Visit: Yes Status: Acute Code(s): K70.9 - ALCOHOLIC LIVER DISEASE, UNSPECIFIED SNOMED Code(s): 37187343 (3) Cirrhosis Current Visit: Yes Status: Acute Code(s): K74.60 - UNSPECIFIED CIRRHOSIS OF LIVER SNOMED Code(s): 62177748 (4) Coagulopathy Current Visit: Yes Status: Acute Code(s): D68.9 - COAGULATION DEFECT, UNSPECIFIED SNOMED Code(s): 98797766 (5) Thrombocytopenia Current Visit: Yes Status: Acute Code(s): D69.6 - THROMBOCYTOPENIA, UNSPECIFIED SNOMED Code(s): 466147078 (6) Acute blood loss anemia Current Visit: Yes Status: Acute Code(s): D62 - ACUTE POSTHEMORRHAGIC ANEMIA SNOMED Code(s): 853396272 (7) Esophageal varices Current Visit: Yes Status: Acute Code(s): I85.00 - ESOPHAGEAL VARICES WITHOUT BLEEDING SNOMED Code(s): 45678196 (8) Alcohol abuse Current Visit: No Status: Acute Code(s): F10.10 - ALCOHOL ABUSE, UNCOMPLICATED SNOMED Code(s): 60861418 (9) Alcohol intoxication in active alcoholic Current Visit: Yes Status: Acute Code(s): F10.129 - ALCOHOL ABUSE WITH INTOXICATION, UNSPECIFIED SNOMED Code(s): 436324366 Plan: 1. Nothing by mouth except medications. Protonix 40 mg IV twice a day. Inderal 10 mg 3 times a day. 2. Rocephin 1 g every 24 hours prophylaxis in the setting of a patient with underlying esophageal varices with acute GI bleeding. 3. CBC at noon. EGD tomorrow morning. 4. Vitamin K 5 mg oral x 1. PT INR in a.m. The sustainability coordinator has discussed the risks, benefits and alternative therapies for the above-mentioned procedure and for both sedation/analgesia as well as necessary blood product administration, if indicated, as they pertain to this patient. The patient has indicated understanding and acceptance of the risks and procedures discussed. Thank you for this kind referral and the opportunity to participate in the care of your patient. This consultation was discussed with Dr. Huff. The impression and plan of care have been directed as dictated.
[2017-12-03] MEDS ORDERED: PHYTONADIONE ORAL 5 MG/5 ML ORAL.SYRG PO STA (10:01)
[2017-12-03 10:50] LABS: Basophils # (M) 0.13 k/uL (0-0.2); Eosinophils # (M) 0.59 k/uL (0-0.7); Monocytes # (M) 0.65 k/uL (0-1.0); Neutrophils # (M) 3.84 k/uL (1.3-7.7); Neutrophils % (M) 59 %; Nucleated Red Blood Cells 0 /100 WBC (0-0); Total Cells Counted 100
[2017-12-03 10:55] LABS: RBC Fragments Present
[2017-12-03] MEDS: cefTRIAXone IN SWFI 1,000 MG/10 ML SYRINGE IVP SCH (11:05)
[2017-12-03 14:12] LABS: Anisocytosis Slight; HCT 27.9 % (39.0-53.0); HGB 8.8 gm/dL (13.0-17.5); Hypochromasia Marked; MCH 31.1 pg (25.0-35.0); MCHC 31.6 g/dL (31.0-37.0); MCV 98.3 fL (80.0-100.0); Macrocytosis Slight; Mean Platelet Volume 8.4; Platelet Count 115 k/uL (150-450); Poikilocytosis Slight; RBC 2.84 m/uL (4.30-5.90); RDW 18.7 % (11.5-15.5); WBC 5.8 k/uL (3.8-10.6)
[2017-12-03 15:42] LABS: Eosinophils # (M) 0.23 k/uL (0-0.7); Lymphocytes # (M) 1.39 k/uL (1.0-4.8); Neutrophils # (M) 3.48 k/uL (1.3-7.7); Neutrophils % (M) 60 %; Nucleated Red Blood Cells 0 /100 WBC (0-0); Total Cells Counted 100
[2017-12-03 15:43] LABS: RBC Fragments Present
[2017-12-03] MEDS: PROPRANOLOL 10 MG TAB PO SCH ×2 (16:46→20:38)
[2017-12-03] MEDS ORDERED: Potassium Replacement Protocol 1 EACH MISC MISCELLANE PRN (16:50)
[2017-12-03] MEDS: POTASSIUM CHLORIDE ER 20 MEQ TAB.ER PO SCH ×2 (17:24→18:25)
[2017-12-03] MEDS: PANTOPRAZOLE 40 MG/10 ML VIAL IVP SCH (20:33)
[2017-12-04] MEDS: MORPHINE SULFATE 4 MG/ML SYRINGE IVP PRN ×6 (00:37→20:37)
[2017-12-04 04:19] LABS: INR 1.8 (<1.2); Prothrombin Time 16.1 sec (9.0-12.0)
[2017-12-04] MEDS: SODIUM CHLORIDE 0.9% 1,000 ML IV SCH (06:14)
[2017-12-04] MEDS ORDERED: PROPOFOL 10 MG/ML 20 ML VIAL IV ONE (08:12)
[2017-12-04] MEDS ORDERED: IV FLUID CONTINUATION 1,000 ML IV ONE (08:24)
--- NOTE | 2017-12-04 08:27 | P.PCN ---
Date of Procedure: 12/04/17 Procedure(s) Performed: BRIEF HISTORY: Patient is a 42-year-old, pleasant, white male with history of alcoholic cirrhosis of the liver admitted to the hospital with multiple episodes of coffee-ground emesis. He was recently the hospital 2 weeks ago at which time he underwent an upper endoscopy by Dr. Anderson for acute upper GI bleed and was noted to have small esophageal varices and portal hypertensive gastropathy. He was readmitted to the hospital a week ago for the same reason but he was managed conservatively and was discharged home. He is back coffee- ground emesis and upper GI bleed and hence he scheduled for repeat upper endoscopy today.. PROCEDURE PERFORMED: Esophagogastroduodenoscopy with variceal ligation PREOPERATIVE DIAGNOSIS: Acute upper GI bleeding IV sedation per anesthesia. PROCEDURE: After informed consent was obtained, the patient was brought into the endoscopy unit. IV sedation was administered by Anesthesia under continuous monitoring. Initially the Olympus GIF-140 video endoscope was inserted into the mouth. Esophagus intubated without any difficulty. It was gradually advanced into the stomach and duodenum and carefully examined. The bulb and the second part of the duodenum appeared normal. and no active bleeding identified. The scope at this time was withdrawn to the stomach, adequately insufflated with air , and upon careful examination, mucosa of the antrum, appeared normal. There was mild portal hypertensive gastropathy involving the body and cardia of the stomach.The scope was then withdrawn into the esophagus. The GE junction was located at 39 cm from the incisors. There were small distal esophageal varices seen with no evidence of recent bleeding or stigmata of recent bleed. However because of multiple hospitalizations with acute upper GI bleed it is presumed that he had an esophageal variceal bleeding and hence I proceeded with variceal ligation. The scope was removed and esophageal variceal ligation equipment was introduced the tip of the scope and esophagus reintubated without any difficulty. It was gradually advanced to the distal esophagus. Using suction total of 3 bands were deployed in the distal esophageal varices. The rest of theesophagus appeared normal. There were no erosions or ulcerations seen and the patient tolerated the procedure well. IMPRESSION: 1.Small distal esophageal varices, with no active bleeding, status post recent ligation as described above 2.Mild portal hypertensive gastropathy. RECOMMENDATIONS: The findings of this examination were discussed with the patient . He he will be started on a soft diet and monitor CBC closely.
[2017-12-04] MEDS: PROPRANOLOL 10 MG TAB PO SCH ×3 (09:13→20:38)
[2017-12-04] MEDS: cefTRIAXone IN SWFI 1,000 MG/10 ML SYRINGE IVP SCH (09:13)
[2017-12-04] MEDS: PANTOPRAZOLE 40 MG/10 ML VIAL IVP SCH ×2 (09:13→20:37)
--- NOTE | 2017-12-04 14:05 | P.HPIM ---
History of Present Illness H&P Date: 12/03/17 Chief Complaint: Hematemesis 42-year-old male with a history of EtOH abuse underlying alcohol liver disease portal hypertension ascites esophageal varices portal hypertensive gastropathy. Patient was hospitalized this past week with acute hematemesis melena treated conservatively. He underwent EGD evaluation November 22 with evidence of low-grade nonbleeding distal esophageal varices. Discharged 2 days ago with a hemoglobin of 8.4. He received 1 units of blood earlier this week. Results the emergency room with recurrent coffee-ground emesis with mixed hematemesis. No melena. Mild midepigastric discomfort. Admission hemoglobin 9.7 presently 8.7. Platelet 122. INR 1.7. BUN 5. Crit 0.6. Total bilirubin 1.6. AST 60. ALT 35. AP 106. Serum alcohol level 247; consuming alcohol prior to admission. Afebrile. Acute abdominal series nonacute. Review of Systems Constitutional: Denies fever, chills, sweats, weight gain, or loss. HEENT: Negative for migraines, blurred vision or loss, earaches, drainage, tinnitus, oral mucosal lesions, dysphagia, or odynophagia. Cardiac: Negative for chest pain, arrhythmias, or palpitation. Respiratory: Negative for shortness of breath, hemoptysis, cough, or sputum production. Gastrointestinal: See HPI for pertinent findings. Genitourinary: Negative for hematuria, urgency, frequency, polyuria, dysuria, or penile discharge. Musculoskeletal: Negative for muscle aches, swelling, arthritis, and arthralgias. Neurologic: Negative for stroke or TIA. Endocrine: Negative for thyroid problems. Skin: Negative for rash or itching. Psychiatric: Negative history for depression and anxiety Past Medical History Past Medical History: Asthma, Liver Disease, Pneumonia Additional Past Medical History / Comment(s): ETOH abuse, liver cirrhosis, abdominal ascites, pancreatitis, multiple gallstones, nephrolithiasis, chronic anemia, esophageal varices. History of Any Multi-Drug Resistant Organisms: MRSA Date of last positivie culture/infection: 12/09/2013 MDRO Source:: Right first finger Past Surgical History: Appendectomy, Cholecystectomy, Orthopedic Surgery Additional Past Surgical History / Comment(s): 07/09/17 EGD/colonoscopy, paracentesis, right hand tendon repair, right knee arthroscopy, cystoscopy for kidney stone removal, right hand ring finger surgery. Past Anesthesia/Blood Transfusion Reactions: Previous Problems w/ Anesthesia Additional Past Anesthesia/Blood Transfusion Reaction / Comment(s): Woke up during scope procedure. Past Psychological History: PTSD Additional Psychological History / Comment(s): Pt lives in his apartment. His girlfriend and her son are usually there with him. He does not drive, he gets to [facility] by his girlfriend, family or bus. 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 Smoking Status: Current every day smoker Past Alcohol Use History: Occasional Additional Past Alcohol Use History / Comment(s): Pt states he started smoking in 1983 and is a ppd smoker. PT states reduced the amount of alcohol to a few days a week, drinking 2-3 drinks on those occasions. Pt states used to drink a fifth or 1/2 gallon and some beers daily. Past Drug Use History: Marijuana Additional Drug Use History / Comment(s): Pt states he smokes marijuana on occasion. No other drug use. - Past Family History Mother Family Medical History: Hypertension Father Additional Family Medical History / Comment(s): Prostate issues. Brain aneurysm. Medications and Allergies Home Medications Medication Instructions Recorded Confirmed Type Folic Acid 1 mg PO DAILY@1200 09/01/17 12/02/17 History Multivitamins, Thera [Multivitamin 1 tab PO DAILY #30 tablet 09/03/17 12/02/17 Rx (formulary)] Thiamine [Vitamin B-1] 100 mg PO DAILY #30 tablet 09/03/17 12/02/17 Rx Furosemide [Lasix] 20 mg PO DAILY #10 tab 10/03/17 12/02/17 Rx Propranolol [Inderal] 10 mg PO TID 11/29/17 12/02/17 History Nicotine 14Mg/24Hr Patch [Habitrol] 1 patch TRANSDERM DAILY #30 patch 12/01/17 12/02/17 Rx Pantoprazole Sodium [Protonix] 40 mg PO BID #60 tablet. 12/01/17 12/02/17 Rx Tamsulosin [Flomax] 0.4 mg PO DAILY cap.er.24h 12/01/17 12/02/17 Rx Allergies Allergy/AdvReac Type Severity Reaction Status Date / Time No Known Allergies Allergy Verified 12/02/17 21:34 Physical Exam Vitals: Vital Signs Temp Pulse Pulse Resp BP BP Pulse Ox 12/03/17 06:18 97.6 F 72 18 94/49 96 12/03/17 01:00 97.5 F L 83 18 123/63 99 12/02/17 22:51 99.0 F 79 19 128/58 99 12/02/17 22:10 78 18 119/59 99 12/02/17 21:14 98.4 F 80 18 110/64 100 Intake and Output 12/02/17 12/03/17 12/03/17 22:59 06:59 14:59 Intake Total 850 240 Output Total 300 Balance 550 240 Intake: Oral 850 240 Output: Urine 300 Other: Voiding Method Urinal Weight 72.575 kg 76.43 kg Results CBC & Chem 7: 12/03/17 13:31 12/03/17 07:53 Labs: Abnormal Lab Results - Last 24 Hours (Table) 12/02/17 12/02/17 12/02/17 Range/Units 22:06 22:06 22:06 RBC 3.11 L (4.30-5.90) m/uL Hgb 9.7 L (13.0-17.5) gm/dL Hct 30.5 L (39.0-53.0) % RDW 18.9 H (11.5-15.5) % Plt Count 143 L (150-450) k/uL PT 15.2 H (9.0-12.0) sec INR 1.7 H (<1.2) Potassium (3.5-5.1) mmol/L Chloride 113 H (98-107) mmol/L Carbon Dioxide 20 L (22-30) mmol/L BUN 5 L (9-20) mg/dL Creatinine 0.60 L (0.66-1.25) mg/dL Glucose 105 H (74-99) mg/dL Calcium (8.4-10.2) mg/dL Total Bilirubin 1.6 H (0.2-1.3) mg/dL AST 60 H (17-59) U/L Albumin (3.5-5.0) g/dL 12/03/17 12/03/17 Range/Units 07:53 07:53 RBC 2.71 L (4.30-5.90) m/uL Hgb 8.7 L (13.0-17.5) gm/dL Hct 26.8 L (39.0-53.0) % RDW 19.0 H (11.5-15.5) % Plt Count 122 L (150-450) k/uL PT (9.0-12.0) sec INR (<1.2) Potassium 3.3 L (3.5-5.1) mmol/L Chloride 113 H (98-107) mmol/L Carbon Dioxide 21 L (22-30) mmol/L BUN 6 L (9-20) mg/dL Creatinine 0.55 L (0.66-1.25) mg/dL Glucose (74-99) mg/dL Calcium 8.1 L (8.4-10.2) mg/dL Total Bilirubin 1.5 H (0.2-1.3) mg/dL AST 62 H (17-59) U/L Albumin 3.0 L (3.5-5.0) g/dL Thrombosis Risk Factor Assmnt - Choose All That Apply Any of the Below Risk Factors Present?: Yes Each Factor Represents 1 point: Age 41-60 years Other Risk Factors: No Other congenital or acquired thrombophilia - If yes, enter type in comment: No Thrombosis Risk Factor Assessment Total Risk Factor Score: 1 Thrombosis Risk Factor Assessment Level: Low Risk Assessment and Plan Assessment: (1) Hematemesis - We'll keep patient nothing by mouth except meds; patient is started on Protonix 40 mg IV twice a day; we will continue to EGD is done - We'll monitor CBC closely every 8-12 hours and transfuse if hemoglobin is less than 8.0 (2) Alcoholic liver disease (3) Cirrhosis (4) Coagulopathy - Patient is given vitamin K 5 mg by mouth 1 - We will continue to monitor PT and INR daily (5) 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 - continue to monitor CBC; we'll transfuse platelets if platelet count drops below 50,000 or patient continues to have bleeding complications (6) Acute blood loss anemia - Monitor H&H closely; every 8-12 hours; we will type crossmatch and transfuse packed RBCs if hemoglobin drops below 8 (7) Esophageal varices - We'll keep patient nothing by mouth except meds; patient is started on Protonix 40 mg IV twice a day; we will continue to EGD is done - Start patient on Inderal 10 mg 3 times a day - Patient is started on Rocephin 1 g IV every 24 hours for prophylaxis for possible esophageal varices with acute GI bleed - Patient is scheduled for EGD tomorrow morning (8) Alcohol abuse; counseling done on necessity of abstaining from alcohol abuse (9) Alcohol intoxication in active alcoholic - We will keep patient on IV fluids with vitamin supplements - We'll monitor patient closely for need for CIWA protocol Patient is scheduled for EGD; further recommendations after EGD is done Time with Patient: Greater than 30
--- NOTE | 2017-12-04 14:10 | P.PN ---
Subjective Progress Note Date: 12/04/17 Principal diagnosis: Acute upper GI bleed Patient is a 42-year-old, pleasant, white male with history of alcoholic cirrhosis of the liver admitted to the hospital with multiple episodes of coffee -ground emesis. He was recently the hospital 2 weeks ago at which time he underwent an upper endoscopy by Dr. Anderson for acute upper GI bleed and was noted to have small esophageal varices and portal hypertensive gastropathy. He was readmitted to the hospital a week ago for the same reason but he was managed conservatively and was discharged home. He is back coffee-ground emesis and upper GI bleed and hence he scheduled for repeat upper endoscopy today.. 12/04/2017 Patient is status post EGD for upper GI bleed which shows small distal esophageal varices with no active bleeding; patient is status post recent ligation; EGD also shows mild portal hypertensive gastropathy GI is recommending continued monitoring of CBC Patient will be started on a soft diet today with close monitoring of response to advance as tolerated Objective - Vital Signs Vital signs: Vital Signs Temp 97.8 F 12/04/17 06:35 Pulse 76 12/04/17 06:35 Resp 18 12/04/17 06:35 BP 149/67 12/04/17 06:35 Pulse Ox 100 12/04/17 06:35 Intake & Output 12/03/17 12/04/17 12/04/17 18:59 06:59 18:59 Intake Total 240 0 250 Output Total 400 Balance 240 -400 250 Weight 76.43 kg Intake: IV 200 Oral 240 0 50 Output: Urine 400 Other: Voiding Method Urinal # Voids 2 2 - Exam - Constitutional General appearance: Present: average body habitus, cooperative, no acute distress - EENT Eyes: Present: anicteric sclerae, EOMI, PERRLA, normal appearance ENT: Present: hearing grossly normal, normal oropharynx Ears: bilateral: normal - Neck Neck: Present: normal ROM. Absent: lymphadenopathy, rigidity, thyromegaly Carotids: negative: bruit present Thyroid: bilateral: normal size, negative: enlarged, nodule - Respiratory Respiratory: bilateral: CTA, negative: rales, rhonchi, wheezing - Cardiovascular Rhythm: regular Heart sounds: normal: S1, S2 Abnormal Heart Sounds: Absent: systolic murmur, diastolic murmur - Gastrointestinal General gastrointestinal: Present: normal bowel sounds, soft. Absent: distended , organomegaly, tenderness - Genitourinary Genitourinary Comment(s): deferred - Integumentary Integumentary: Present: normal turgor. Absent: jaundiced, rash, ulcer - Neurologic Neurologic: Present: CNII-XII intact. Absent: focal deficits - Musculoskeletal Musculoskeletal: Present: gait normal, strength equal bilaterally - Psychiatric Psychiatric: Present: A&O x's 3, appropriate affect, intact judgment & insight - Labs CBC & Chem 7: 12/03/17 13:31 12/03/17 07:53 Labs: Abnormal Lab Results - Last 24 Hours (Table) 12/03/17 12/04/17 Range/Units 13:31 03:47 RBC 2.84 L (4.30-5.90) m/uL Hgb 8.8 L (13.0-17.5) gm/dL Hct 27.9 L (39.0-53.0) % RDW 18.7 H (11.5-15.5) % Plt Count 115 L (150-450) k/uL PT 16.1 H (9.0-12.0) sec INR 1.8 H (<1.2) Assessment and Plan Assessment: (1) Hematemesis - Patient is status post EGD which showed esophageal varices without active bleeding and mild portal hypertensive gastropathy; patient is recommended to have soft diet and advance as tolerated and continued close monitoring of CBC - We'll keep patient nothing by mouth except meds; patient is started on Protonix 40 mg IV twice a day; we will continue to EGD is done - We'll monitor CBC closely every 8-12 hours and transfuse if hemoglobin is less than 8.0 (2) Alcoholic liver disease (3) Cirrhosis (4) Coagulopathy - Patient is given vitamin K 5 mg by mouth 1 - We will continue to monitor PT and INR daily (5) 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 - continue to monitor CBC; we'll transfuse platelets if platelet count drops below 50,000 or patient continues to have bleeding complications (6) Acute blood loss anemia - Monitor H&H closely; every 8-12 hours; we will type crossmatch and transfuse packed RBCs if hemoglobin drops below 8 (7) Esophageal varices - We'll keep patient nothing by mouth except meds; patient is started on Protonix 40 mg IV twice a day; we will continue to EGD is done - Start patient on Inderal 10 mg 3 times a day - Patient is started on Rocephin 1 g IV every 24 hours for prophylaxis for possible esophageal varices with acute GI bleed - Patient is scheduled for EGD tomorrow morning (8) Alcohol abuse; counseling done on necessity of abstaining from alcohol abuse (9) Alcohol intoxication in active alcoholic - We will keep patient on IV fluids with vitamin supplements - We'll monitor patient closely for need for CIWA protocol Patient is status post EGD; GI is recommending to start patient on soft diet and is advance as tolerated and continue to monitor CBC closely Time with Patient: Greater than 30
[2017-12-04 16:52] LABS: Anisocytosis Slight; Basophils # (A) 0.1 k/uL (0-0.2); Basophils % (A) 1 %; Eosinophils # (A) 0.3 k/uL (0-0.7); Eosinophils % (A) 6 %; HGB 8.9 gm/dL (13.0-17.5); Hypochromasia Marked; Lymphocytes % (A) 21 %; MCH 31.4 pg (25.0-35.0); MCHC 31.7 g/dL (31.0-37.0); MCV 98.9 fL (80.0-100.0); Macrocytosis Slight; Mean Platelet Volume 8.6; Monocytes # (A) 0.9 k/uL (0-1.0); Monocytes % (A) 18 %; Neutrophils # (A) 2.5 k/uL (1.3-7.7); Neutrophils % (A) 49 %; Platelet Count 100 k/uL (150-450); RBC 2.83 m/uL (4.30-5.90); RDW 18.3 % (11.5-15.5); WBC 5.1 k/uL (3.8-10.6)
[2017-12-04] MEDS ORDERED: NICOTINE 14MG/24HR PATCH TRANSDERM SCH (19:30)
[2017-12-05] MEDS: MORPHINE SULFATE 4 MG/ML SYRINGE IVP PRN ×5 (01:00→20:41)
[2017-12-05] MEDS: NICOTINE 14MG/24HR PATCH TRANSDERM SCH ×2 (01:01→08:05)
[2017-12-05] MEDS: SODIUM CHLORIDE 0.9% 1,000 ML IV SCH ×3 (01:01→20:41)
[2017-12-05] MEDS: PROPRANOLOL 10 MG TAB PO SCH ×3 (08:03→20:41)
[2017-12-05] MEDS: PANTOPRAZOLE 40 MG/10 ML VIAL IVP SCH ×2 (08:05→20:40)
[2017-12-05] MEDS: cefTRIAXone IN SWFI 1,000 MG/10 ML SYRINGE IVP SCH (08:11)
[2017-12-05 09:25] LABS: INR 1.7 (<1.2)
[2017-12-05 09:38] LABS: Anion Gap 7 mmol/L; Blood Urea Nitrogen 4 mg/dL (9-20); Calcium 8.5 mg/dL (8.4-10.2); Carbon Dioxide 21 mmol/L (22-30); Chloride 108 mmol/L (98-107); Glucose 126 mg/dL (74-99); Potassium 3.6 mmol/L (3.5-5.1); Sodium 136 mmol/L (137-145)
[2017-12-05 09:42] LABS: Anisocytosis Slight; Basophils % (A) 1 %; Eosinophils # (A) 0.3 k/uL (0-0.7); Eosinophils % (A) 5 %; HCT 25.6 % (39.0-53.0); HGB 8.1 gm/dL (13.0-17.5); Hypochromasia Marked; Lymphocytes # (A) 1.1 k/uL (1.0-4.8); Lymphocytes % (A) 24 %; MCHC 31.7 g/dL (31.0-37.0); MCV 97.9 fL (80.0-100.0); Macrocytosis Slight; Mean Platelet Volume 9.3; Monocytes # (A) 0.7 k/uL (0-1.0); Monocytes % (A) 15 %; Neutrophils # (A) 2.4 k/uL (1.3-7.7); Neutrophils % (A) 51 %; RBC 2.62 m/uL (4.30-5.90); RDW 18.4 % (11.5-15.5); WBC 4.7 k/uL (3.8-10.6)
[2017-12-05 09:59] LABS: Platelet Count 86 k/uL (150-450); Poikilocytosis (M) Present; Polychromasia Present
--- NOTE | 2017-12-05 13:10 | PN ---
PROGRESS NOTE DATE OF SERVICE: December 05, 2017 Patient is a 42-year-old white male with history of alcoholic cirrhosis of the liver, admitted to hospital with acute upper GI bleed. He underwent an upper endoscopy yesterday that showed small distal esophageal varices for which he underwent esophageal variceal ligation. The patient is doing better today. He denies any more bleeding. He does complain of some abdominal pain. No nausea, vomiting. PHYSICAL EXAMINATION: Appears comfortable in no apparent distress. VITAL SIGNS: Stable. Blood pressure is 149/71, pulse rate 87, temperature 98. HEENT examination unremarkable. Conjunctivae pink. Sclerae anicteric. Oral cavity no lesions. Neck no JVD or lymph node enlargement. Chest was clear to auscultation. HEART: Regular rate and rhythm. ABDOMEN: Soft. Bowel sounds are positive. No organomegaly. Extremities no pedal edema. Skin no rashes. NEUROLOGIC: Alert and oriented x3. No focal deficits. LABS: Done from today, WBC is 4.7, hemoglobin 8.1, platelets are 86,000. Basic metabolic panel is normal. INR is 1.7. IMPRESSION: 1. Acute upper gastrointestinal bleed, status post EGD with variceal ligation yesterday which revealed small varices with no active bleeding. 2. Cirrhosis of the liver with portal hypertension. 3. History of alcohol abuse. RECOMMENDATIONS: 1. Advance diet as tolerated. 2. Continue Protonix 40 mg q.12 hours. 3. CBC in the morning. 4. If it remains stable, he can be discharged home. MMODL / IJN: [id number] /
--- NOTE | 2017-12-05 21:51 | PN ---
PROGRESS NOTE DATE OF SERVICE: 12/05/2017 This 42-year-old gentleman who was admitted with upper GI bleed, had EGD and as well as banding of esophageal varices. No chest pain. No palpitations. No fever. PHYSICAL EXAM: Alert and oriented x2. Pulse 67, blood pressure 123/69, respirations 20, temperature 98.2, pulse ox 99% on room air. HEENT: Conjunctivae pale. Oral mucosa moist. Neck is no jugular venous distention. No carotid bruit. No lymph node enlargement. Cardiovascular systems: S1, S2. Respirations: Breath sounds diminished in the bases. No rhonchi and no crackles. ABDOMEN: Soft. Mild diffuse distention. Legs are no edema. No swelling. Central nervous system: No focal deficits. LABS: WBC 4.2, hemoglobin 8.0, platelets 86. INR is 1.7. ASSESSMENT: 1. Hematemesis secondary to esophageal variceal bleeding and as well as status post EGD and variceal banding. 2. Mild portal hypertension and gastropathy. 3. Alcoholic liver disease. 4. Cirrhosis of liver. 5. Coagulopathy. 6. Thrombocytopenia. 7. History of EtOH. 8. Hypokalemia. RECOMMENDATIONS AND DISCUSSION: Recommend to continue current medications, management and symptomatic treatment. Otherwise we will repeat hemoglobin. Closely follow with Gastroenterology. Guarded prognosis. Further recommendations to follow. MMODL / IJN: [id number] /
[2017-12-06] MEDS: MORPHINE SULFATE 4 MG/ML SYRINGE IVP PRN ×3 (01:43→09:45)
[2017-12-06 06:59] VITALS: BP 113/50; PULSE 73; RESP 18; TEMP 98
[2017-12-06] MEDS: NICOTINE 14MG/24HR PATCH TRANSDERM SCH (08:01)
[2017-12-06] MEDS: SODIUM CHLORIDE 0.9% 1,000 ML IV SCH (08:01)
[2017-12-06] MEDS: cefTRIAXone IN SWFI 1,000 MG/10 ML SYRINGE IVP SCH (08:01)
[2017-12-06] MEDS: PANTOPRAZOLE 40 MG/10 ML VIAL IVP SCH (08:02)
[2017-12-06] MEDS: PROPRANOLOL 10 MG TAB PO SCH (08:03)
[2017-12-06 08:20] LABS: Anisocytosis Slight; Basophils # (A) 0.1 k/uL (0-0.2); Basophils % (A) 1 %; Eosinophils # (A) 0.3 k/uL (0-0.7); Eosinophils % (A) 6 %; HCT 26.1 % (39.0-53.0); HGB 8.1 gm/dL (13.0-17.5); Hypochromasia Marked; Lymphocytes # (A) 1.4 k/uL (1.0-4.8); Lymphocytes % (A) 25 %; MCH 30.2 pg (25.0-35.0); MCHC 30.9 g/dL (31.0-37.0); MCV 97.8 fL (80.0-100.0); Macrocytosis Slight; Mean Platelet Volume 8.8; Monocytes # (A) 0.8 k/uL (0-1.0); Monocytes % (A) 14 %; Neutrophils # (A) 2.7 k/uL (1.3-7.7); Neutrophils % (A) 50 %; RBC 2.67 m/uL (4.30-5.90); RDW 18.5 % (11.5-15.5); WBC 5.4 k/uL (3.8-10.6)
[2017-12-06 08:21] LABS: Platelet Count 86 k/uL (150-450)
--- NOTE | 2017-12-06 19:53 | PN ---
PROGRESS NOTE Patient is a 42-year-old white male upper endoscopy with esophageal variceal ligation 2 days ago and he is doing well. He had lower abdominal pain. He reports no nausea, vomiting. No melena. PHYSICAL EXAMINATION: Appears comfortable, no apparent distress. VITAL SIGNS: Stable. Blood pressure 120/58, pulse is 70, temperature 98.4. HEENT: Examination unremarkable. Conjunctivae pink. Sclerae anicteric. Oral cavity, no lesions. NECK: No JVD or lymph node enlargement. Chest was clear to auscultation. HEART: Regular rate and rhythm. Abdomen is soft. Bowel sounds are positive. No pedal edema. SKIN: No rashes. NEUROLOGIC: Alert and oriented x3. No focal deficits. LAB DATA: WBC 5.4, hemoglobin 8.1, platelets 86,000. IMPRESSION: 1. Upper GI bleed secondary to acute esophageal variceal bleeding, status post EGD with variceal ligation 2 days ago. Patient remains stable, no further bleeding. 2. Alcoholic cirrhosis of the liver with portal hypertension. 3. Mild ascites. RECOMMENDATIONS: 1. Advance diet as tolerated. 2. Patient advised to follow up in office in 2 weeks following discharge from the hospital. 3. Will start him on 10 mg 3 times daily. 4. Abstinence from alcohol. MMODL / IJN: [id number] /
--- NOTE | 2017-12-07 07:12 | DS ---
DISCHARGE SUMMARY DATE OF SERVICE: 12/06/2017. FINAL DIAGNOSES: 1. Hematemesis secondary to esophageal variceal bleeding as well as status post EGD and variceal banding. 2. Mild portal hypertension and gastropathy. 3. Alcoholic liver disease. 4. Cirrhosis of the liver. 5. Coagulopathy. 6. Thrombocytopenia. 7. Blood-loss anemia, acute on chronic. 8. History of EtOH. 9. Hypokalemia. DISCHARGE DISPOSITION: The patient will be discharged in stable condition with guarded prognosis. HISTORY OF PRESENT ILLNESS: This 42-year-old gentleman with a past medical history of multiple medical problems admitted with acute upper GI bleeding. The patient was treated symptomatically. Dr. Huff saw the patient, performed EGD and variceal banding. On exam, vitals are stable. CARDIOVASCULAR: S1 and S2, muffled. RESPIRATORY: neg ABDOMEN: Soft. NERVOUS SYSTEM: No focal deficits. DISCHARGE ADVICE: 1. Diet is cardiac diet. 2. Activity limited until followup. 3. Follow up with Dr. Guevara in 2 to 3 days. 4. Follow up with Dr. Huff as advised. Medications are: 1. Folic acid 1 mg p.o. daily. 2. Inderal 10 mg p.o. t.i.d. 3. Lasix 20 mg p.o. daily. 4. Multivitamins 1 p.o. daily. 5. Habitrol 14 daily. 6. Protonix 40 mg p.o. b.i.d. 7. Flomax 0.4 daily. 8. Thiamine 100 mg p.o. daily. 9. Ultram 50 mg q.6 p.r.n. Once again, the patient will be discharged in a stable condition with a guarded prognosis. MMODL / IJN: [id number] / MAGGI
== END 2017-12-06 13:55 | disposition home or self-care (01) | DRG 432 ==
LOC: EC 21:06 → 4MS4W 23:45
PROVIDERS: ADMIT Internal Medicine; ATTEND Internal Medicine
PROC: 06L38CZ Occlusion of Esophageal Vein with Extraluminal Device, Via Natural or Artificial Opening Endoscopic (ICD-10-PCS; principal; 2017-12-04 08:00)
DX: K70.30 Alcoholic cirrhosis of liver without ascites (principal); I85.11 Secondary esophageal varices with bleeding; D68.4 Acquired coagulation factor deficiency; D62 Acute posthemorrhagic anemia; K76.6 Portal hypertension; D69.59 Other secondary thrombocytopenia; F10.229 Alcohol dependence with intoxication, unspecified; Y90.8 Blood alcohol level of 240 mg/100 ml or more; E87.6 Hypokalemia; F17.200 Nicotine dependence, unspecified, uncomplicated; F43.10 Post-traumatic stress disorder, unspecified; J45.909 Unspecified asthma, uncomplicated; K31.89 Other diseases of stomach and duodenum; Z79.899 Other long term (current) drug therapy; Z82.49 Family history of ischemic heart disease and other diseases of the circulatory system; Z87.442 Personal history of urinary calculi; Z71.41 Alcohol abuse counseling and surveillance of alcoholic; Z87.01 Personal history of pneumonia (recurrent)
CPT/HCPCS: 36415; 43244; 74022; 80048; 80053; 80320; 85025; 85610

== ENCOUNTER 2018-04-18 05:11 | Emergency (ER) | payer OTHER ==
[2018-04-18 05:27] VITALS: TEMP 98.5
[2018-04-18] MEDS ORDERED: SODIUM CHLORIDE 0.9% 1,000 ML IV STA (05:31)
[2018-04-18 05:44] LABS: Anisocytosis Slight; Basophils # (A) 0.1 k/uL (0-0.2); Basophils % (A) 1 %; Eosinophils # (A) 0.7 k/uL (0-0.7); Eosinophils % (A) 8 %; HCT 27.7 % (39.0-53.0); HGB 9.1 gm/dL (13.0-17.5); Lymphocytes % (A) 24 %; MCH 31.2 pg (25.0-35.0); MCHC 32.8 g/dL (31.0-37.0); MCV 95.3 fL (80.0-100.0); Mean Platelet Volume 8.1; Monocytes # (A) 0.9 k/uL (0-1.0); Monocytes % (A) 11 %; Neutrophils # (A) 4.4 k/uL (1.3-7.7); Neutrophils % (A) 52 %; Platelet Count 147 k/uL (150-450); RDW 17.3 % (11.5-15.5); WBC 8.4 k/uL (3.8-10.6)
[2018-04-18 05:53] LABS: ALT 31 U/L (21-72); AST 78 U/L (17-59); Albumin 3.1 g/dL (3.5-5.0); Alkaline Phosphatase 109 U/L (38-126); Amylase 65 U/L (30-110); Anion Gap 8 mmol/L; Blood Urea Nitrogen 10 mg/dL (9-20); Calcium 8.7 mg/dL (8.4-10.2); Carbon Dioxide 21 mmol/L (22-30); Chloride 113 mmol/L (98-107); Glucose 102 mg/dL (74-99); Lipase 475 U/L (23-300); Potassium 3.7 mmol/L (3.5-5.1); Sodium 142 mmol/L (137-145); Total Bilirubin 1.5 mg/dL (0.2-1.3); Total Protein 7.2 g/dL (6.3-8.2)
[2018-04-18] MEDS ORDERED: SODIUM CHLORIDE 0.9% 2,000 ML IV ONE (06:07)
[2018-04-18 06:17] LABS: Appearance,Urine Clear (Clear); Bacteria,Urine Rare /hpf; Bilirubin,Urine Negative (Negative); Blood,Urine Moderate (Negative); Color,Urine Yellow; Glucose,Urine (UA) Negative (Negative); Ketones,Urine Negative (Negative); Leukocyte Esterase,Urine Negative (Negative); Mucus,Urine Rare /hpf; Nitrite,Urine Negative (Negative); PH, Urine 6.5 (5.0-8.0); Protein,Urine Trace (Negative); RBC,Urine >182 /hpf (0-5); Specific Gravity,Urine 1.013 (1.001-1.035); Squamous Epithelial Cell,Urine <1 /hpf (0-4); Urobilinogen,Urine >12.0 mg/dL (<2.0); WBC,Urine 26 /hpf (0-5)
[2018-04-18] MEDS ORDERED: SODIUM CHLORIDE 0.9% 1,000 ML IV ONE (06:30)
[2018-04-18 06:34] VITALS: BP 132/74; PULSE 96; RESP 16
--- NOTE | 2018-04-18 06:34 | ED ---
Abdominal Pain HPI - General Source: patient Mode of arrival: ambulatory Limitations: no limitations <Jeana Martinez - Last Filed: 04/18/18 07:26> <Akin Madsen - Last Filed: 04/18/18 08:19> - General Chief Complaint: Abdominal Pain Stated Complaint: Abdominal Pain Time Seen by Provider: 04/18/18 05:30 - History of Present Illness Initial Comments: Romie is a 43-year-old male with a history of alcohol abuse recurrent pancreatitis as well as kidney stones or presents the ER today for evaluation of epigastric and right flank pain. Patient reports that he's been doing pretty well and not drinking, however he recently did binge drink for a friend' s birthday constitution party drinking both beer and liquor. Patient states that he says he developed epigastric abdominal pain and right flank pain. Patient reports he feels that he probably has pink her otitis and a kidney stone. Patient rates his pain a 7 out of 10. Pain is associated with nausea but no vomiting. Patient denies any associated complaints. Patient reports his last case of Dickey otitis was approximately one year prior. (Jeana Martinez) - Related Data Home Medications Medication Instructions Recorded Confirmed Folic Acid 1 mg PO DAILY@1200 09/01/17 04/18/18 Pseudoephedrine [Sudafed] 30 mg PO Q4H PRN 04/18/18 04/18/18 Previous Rx's Medication Instructions Recorded Multivitamins, Thera [Multivitamin 1 tab PO DAILY #30 tablet 09/03/17 (formulary)] Thiamine [Vitamin B-1] 100 mg PO DAILY #30 tablet 09/03/17 Furosemide [Lasix] 20 mg PO DAILY #10 tab 10/03/17 Allergies Allergy/AdvReac Type Severity Reaction Status Date / Time No Known Allergies Allergy Verified 04/18/18 08:03 Review of Systems ROS Other: All systems not noted in ROS Statement are negative. <Jeana Martinez - Last Filed: 04/18/18 07:26> ROS Other: All systems not noted in ROS Statement are negative. <Akin Madsen - Last Filed: 04/18/18 08:19> ROS Statement: Those systems with pertinent positive or pertinent negative responses have been documented in the HPI. Past Medical History Past Medical History: Asthma, Liver Disease, Pneumonia Additional Past Medical History / Comment(s): ETOH abuse, liver cirrhosis, abdominal ascites, pancreatitis, multiple gallstones, nephrolithiasis, chronic anemia, esophageal varices. History of Any Multi-Drug Resistant Organisms: MRSA Date of last positivie culture/infection: 12/09/2013 MDRO Source:: Right first finger Past Surgical History: Appendectomy, Cholecystectomy, Orthopedic Surgery Additional Past Surgical History / Comment(s): 07/09/17 EGD/colonoscopy, paracentesis, right hand tendon repair, right knee arthroscopy, cystoscopy for kidney stone removal, right hand ring finger surgery. Past Anesthesia/Blood Transfusion Reactions: Previous Problems w/ Anesthesia Additional Past Anesthesia/Blood Transfusion Reaction / Comment(s): Woke up during scope procedure. Past Psychological History: PTSD Smoking Status: Current every day smoker Past Alcohol Use History: Occasional Past Drug Use History: Marijuana - Past Family History Mother Family Medical History: Hypertension Father Additional Family Medical History / Comment(s): Prostate issues. Brain aneurysm. <Jeana Martinez - Last Filed: 04/18/18 07:26> General Exam Limitations: no limitations <Jeana Martinez - Last Filed: 04/18/18 07:26> <Akin Madsen - Last Filed: 04/18/18 08:19> - General Exam Comments Initial Comments: Physical Exam GENERAL: Appears older than stated age HENT: Normocephalic, Atraumatic. Poor dentition EYES: PERRL, EOMI PULMONARY: Unlabored respirations. No audible rales rhonchi or wheezing was noted. CARDIOVASCULAR: There is a regular rate and rhythm without any murmurs gallops or rubs. ABDOMEN: Soft Mild tenderness to deep palpation in the epigastrium SKIN: Skin is clear with no lesions or rashes and otherwise unremarkable. : Deferred NEUROLOGIC: Patient is alert and oriented x3. Moving all extremities spontaneously MUSCULOSKELETAL: Normal extremities with adequate strength and full range of motion. No lower extremity swelling or edema. No calf tenderness. PSYCHIATRIC: Normal psychiatric evaluation. Limitations: no limitations (Jeana Martinez) Course <Jeana Martinez - Last Filed: 04/18/18 07:26> <Akin Madsen - Last Filed: 04/18/18 08:19> Vital Signs 12/03/18 12/03/18 05:14 06:33 Temperature 98.5 F Pulse Rate 100 96 Respiratory 18 16 Rate Blood Pressure 127/73 132/74 O2 Sat by Pulse 100 99 Oximetry - Reevaluation(s) Reevaluation #1: 04/18/18 08:17 The patient initially was endorsed me pending ultrasound report. He did admit apparently to drinking alcohol over the weekend he does have a history of pancreatitis he did have a lipase level [id number]. Ultrasound showed evidence of kidney stone but no evidence of ureteral stone or obstruction. Patient left the department and the hospital prior to proper disposition and prior to the discussing the findings with him. (Akin Madsen) Medical Decision Making - Lab Data Result diagrams: 04/18/18 05:25 04/18/18 05:25 <Jeana Martinez - Last Filed: 04/18/18 07:26> - Lab Data Result diagrams: 04/18/18 05:25 04/18/18 05:25 <Akin Madsen - Last Filed: 04/18/18 08:19> - Medical Decision Making Patient was seen and evaluated, history is obtained from the patient and review of medical record Patient reporting epigastric abdominal pain as well as right flank pain Labs were ordered GI cocktail was ordered as I do have a suspicion the patient may have some alcoholic gastritis Labs with a mildly elevated lipase - additional IV fluids ordered Urinalysis with no hematuria, however given the right flank pain a ultrasound was ordered Patient refused GI cocktail stating that he wanted real pain medications At this time the patient does not have any identifiable acute pathology, he is refusing treatment for gastritis. I advised them that IV narcotic medication is not indicated at this time. She care was signed out to Dr. Madsen who will follow-up on ultrasound (Jeana Martinez) - Lab Data Lab Results 04/18/18 04/18/18 04/18/18 Range/Units 05:25 05:25 05:50 WBC 8.4 (3.8-10.6) k/uL RBC 2.90 L (4.30-5.90) m/uL Hgb 9.1 L (13.0-17.5) gm/dL Hct 27.7 L (39.0-53.0) % MCV 95.3 (80.0-100.0) fL MCH 31.2 (25.0-35.0) pg MCHC 32.8 (31.0-37.0) g/dL RDW 17.3 H (11.5-15.5) % Plt Count 147 L (150-450) k/uL Neutrophils % 52 % Lymphocytes % 24 % Monocytes % 11 % Eosinophils % 8 % Basophils % 1 % Neutrophils # 4.4 (1.3-7.7) k/uL Lymphocytes # 2.0 (1.0-4.8) k/uL Monocytes # 0.9 (0-1.0) k/uL Eosinophils # 0.7 (0-0.7) k/uL Basophils # 0.1 (0-0.2) k/uL Anisocytosis Slight Sodium 142 (137-145) mmol/L Potassium 3.7 (3.5-5.1) mmol/L Chloride 113 H (98-107) mmol/L Carbon Dioxide 21 L (22-30) mmol/L Anion Gap 8 mmol/L BUN 10 (9-20) mg/dL Creatinine 0.58 L (0.66-1.25) mg/dL Est GFR (CKD-EPI)AfAm >90 (>60 ml/min/1.73 sqM) Est GFR (CKD-EPI)NonAf >90 (>60 ml/min/1.73 sqM) Glucose 102 H (74-99) mg/dL Calcium 8.7 (8.4-10.2) mg/dL Total Bilirubin 1.5 H (0.2-1.3) mg/dL AST 78 H (17-59) U/L ALT 31 (21-72) U/L Alkaline Phosphatase 109 (38-126) U/L Total Protein 7.2 (6.3-8.2) g/dL Albumin 3.1 L (3.5-5.0) g/dL Amylase 65 (30-110) U/L Lipase 475 H (23-300) U/L Urine Color Yellow Urine Appearance Clear (Clear) Urine pH 6.5 (5.0-8.0) Ur Specific [place] 1.013 (1.001-1.035) Urine Protein Trace H (Negative) Urine Glucose (UA) Negative (Negative) Urine Ketones Negative (Negative) Urine Blood Moderate H (Negative) Urine Nitrite Negative (Negative) Urine Bilirubin Negative (Negative) Urine Urobilinogen >12.0 (<2.0) mg/dL Ur Leukocyte Esterase Negative (Negative) Urine RBC >182 H (0-5) /hpf Urine WBC 26 H (0-5) /hpf Ur Squamous Epith Cells <1 (0-4) /hpf Urine Bacteria Rare H (None) /hpf Urine Mucus Rare H (None) /hpf Disposition <Jeana Martinez - Last Filed: 04/18/18 07:26> <Akin Madsen - Last Filed: 04/18/18 08:19> Clinical Impression: Pancreatitis, Abdominal pain, Noncompliance Disposition: Left Against Medical Advice Condition: Stable Referrals: James Meza Jr, [Primary Care Provider] - 1-2 days
[2018-04-18] MEDS: MAG HYDROX/AL HYDROX/SIMETH 30 ML, HYOSCYAMINE ELIXIR 10 ML, CIMETIDINE HCL 300 MG, LID... PO STA ×8 (06:56→06:58)
--- NOTE | 2018-04-18 07:33 | US ---
EXAMINATION TYPE: US kidneys/renal and bladder DATE OF EXAM: 04/18/2018 COMPARISON: CT dated 11/28/2017 CLINICAL HISTORY: Right flank pain, hx stones. EXAM MEASUREMENTS: Right Kidney: 11.3 x 5.4 x 5.6 cm Left Kidney: 11.9 x 5.4 x 6.1 cm Right Kidney: echogenic foci upper pole measures 0.8 x 0.6 x 0.5 cm does not shadow, no hydro seen. Left Kidney: No hydronephrosis or masses seen Bladder: wnl Bilateral Jets seen: No There is no evidence for hydronephrosis at this point in time. No No masses are identified. The uri nary bladder is anechoic. Bilateral ureteral jets are seen. IMPRESSION: No hydronephrosis bilaterally. 8mm probable nonobstructing left upper pole renal calculus.
== END 2018-04-18 08:02 | disposition left against medical advice (07) ==
LOC: EC 05:11
DX: K85.90 Acute pancreatitis without necrosis or infection, unspecified (principal); Z91.19 Patient's noncompliance with other medical treatment and regimen; N20.0 Calculus of kidney; F17.200 Nicotine dependence, unspecified, uncomplicated; Z87.19 Personal history of other diseases of the digestive system; Z86.14 Personal history of Methicillin resistant Staphylococcus aureus infection; Z90.49 Acquired absence of other specified parts of digestive tract; Z53.20 Procedure and treatment not carried out because of patient's decision for unspecified reasons
CPT/HCPCS: 36415; 76770; 80053; 81001; 82150; 83690; 85025; 96360; 96361; 99285

== ENCOUNTER 2018-06-19 00:22 | Emergency (ER) | payer OTHER ==
[2018-06-19] MEDS ORDERED: MORPHINE SULFATE 4 MG/ML SYRINGE IV STA (00:26)
[2018-06-19] MEDS ORDERED: PANTOPRAZOLE 40 MG/10 ML VIAL IVP STA (00:26)
[2018-06-19] MEDS ORDERED: ONDANSETRON 4 MG/2 ML VIAL IVP STA (00:26)
[2018-06-19] MEDS ORDERED: SODIUM CHLORIDE 0.9% 1,000 ML IV STA ×2 (00:26)
[2018-06-19] MEDS ORDERED: SODIUM CHLORIDE 0.9% 500 ML 500 ML IV STA (00:26)
[2018-06-19 00:27] VITALS: RESP 16; TEMP 97.4
--- NOTE | 2018-06-19 00:28 | ED ---
Abdominal Pain HPI - General Chief Complaint: Recheck/Abnormal Lab/Rx Stated Complaint: Pain Time Seen by Provider: 06/19/18 00:25 Source: patient, EMS, RN notes reviewed, old records reviewed Mode of arrival: EMS Limitations: no limitations - History of Present Illness Initial Comments: This is a 43-year-old male with multiple complaints, cough congestion sore throat, abdominal pain, pain over as well as generalized pain and chronic pain. Patient states chronic pain is worsened normal currently without pain medication missed alcohol intake today MD Complaint: abdominal pain -: days(s), week(s), month(s), year(s) Location: epigastric Radiation: none Migration to: bilateral flank Severity: moderate Severity scale (1-10): 5 Quality: cramping, aching Consistency: constant Improves With: nothing Worsens With: nothing Context: other (Patient currently off all pain medication) Associated Symptoms: nausea, other (Generalized body pain) - Related Data Home Medications Medication Instructions Recorded Confirmed Folic Acid 1 mg PO DAILY@1200 09/01/17 04/18/18 Pseudoephedrine [Sudafed] 30 mg PO Q4H PRN 04/18/18 04/18/18 Previous Rx's Medication Instructions Recorded Multivitamins, Thera [Multivitamin 1 tab PO DAILY #30 tablet 09/03/17 (formulary)] Thiamine [Vitamin B-1] 100 mg PO DAILY #30 tablet 09/03/17 Furosemide [Lasix] 20 mg PO DAILY #10 tab 10/03/17 Allergies Allergy/AdvReac Type Severity Reaction Status Date / Time No Known Allergies Allergy Verified 04/18/18 08:03 Review of Systems ROS Statement: Those systems with pertinent positive or pertinent negative responses have been documented in the HPI. ROS Other: All systems not noted in ROS Statement are negative. Past Medical History Past Medical History: Asthma, Liver Disease, Pneumonia Additional Past Medical History / Comment(s): ETOH abuse, liver cirrhosis, abdominal ascites, pancreatitis, multiple gallstones, nephrolithiasis, chronic anemia, esophageal varices. History of Any Multi-Drug Resistant Organisms: MRSA Date of last positivie culture/infection: 12/09/2013 MDRO Source:: Right first finger Past Surgical History: Appendectomy, Cholecystectomy, Orthopedic Surgery Additional Past Surgical History / Comment(s): 07/09/17 EGD/colonoscopy, paracentesis, right hand tendon repair, right knee arthroscopy, cystoscopy for kidney stone removal, right hand ring finger surgery. Past Anesthesia/Blood Transfusion Reactions: Previous Problems w/ Anesthesia Additional Past Anesthesia/Blood Transfusion Reaction / Comment(s): Woke up during scope procedure. Past Psychological History: PTSD Smoking Status: Current every day smoker Past Alcohol Use History: Abuse, Daily Past Drug Use History: Marijuana - Past Family History Mother Family Medical History: Hypertension Father Additional Family Medical History / Comment(s): Prostate issues. Brain aneurysm. General Exam Limitations: no limitations General appearance: alert, in no apparent distress Head exam: Present: atraumatic, normocephalic, normal inspection Eye exam: Present: normal appearance, PERRL, EOMI. Absent: scleral icterus, conjunctival injection, periorbital swelling ENT exam: Present: normal exam, mucous membranes moist Neck exam: Present: normal inspection. Absent: tenderness, meningismus, lymphadenopathy Respiratory exam: Present: normal lung sounds bilaterally. Absent: respiratory distress, wheezes, rales, rhonchi, stridor Cardiovascular Exam: Present: regular rate, normal rhythm, normal heart sounds. Absent: systolic murmur, diastolic murmur, rubs, gallop, clicks GI/Abdominal exam: Present: soft, normal bowel sounds. Absent: distended, tenderness, guarding, rebound, rigid Extremities exam: Present: normal inspection, full ROM, normal capillary refill. Absent: tenderness, pedal edema, joint swelling, calf tenderness Back exam: Present: normal inspection Neurological exam: Present: alert, oriented X3, CN II-XII intact Psychiatric exam: Present: normal affect, normal mood Skin exam: Present: warm, dry, intact, normal color. Absent: rash Course Vital Signs 06/19/18 06/19/18 00:23 02:23 Temperature 97.4 F L Pulse Rate 89 83 Respiratory 16 16 Rate Blood Pressure 142/98 115/49 O2 Sat by Pulse 100 96 Oximetry Medical Decision Making - Medical Decision Making 43 male history of chronic pancreatitis and chronic pain, chronic alcohol abuse. Labwork is normal pain is controlled and patient can be discharged home - Lab Data Result diagrams: 06/19/18 00:30 06/19/18 00:30 Lab Results 06/19/18 06/19/18 Range/Units 00:30 00:30 WBC 6.3 (3.8-10.6) k/uL RBC 3.06 L (4.30-5.90) m/uL Hgb 8.9 L (13.0-17.5) gm/dL Hct 27.5 L (39.0-53.0) % MCV 90.0 D (80.0-100.0) fL MCH 29.1 (25.0-35.0) pg MCHC 32.3 (31.0-37.0) g/dL RDW 19.8 H (11.5-15.5) % Plt Count 139 L (150-450) k/uL Neutrophils % (Manual) 42 % Lymphocytes % (Manual) 39 % Monocytes % (Manual) 13 % Eosinophils % (Manual) 5 % Basophils % (Manual) 1 % Neutrophils # (Manual) 2.65 (1.3-7.7) k/uL Lymphocytes # (Manual) 2.46 (1.0-4.8) k/uL Monocytes # (Manual) 0.82 (0-1.0) k/uL Eosinophils # (Manual) 0.32 (0-0.7) k/uL Basophils # (Manual) 0.06 (0-0.2) k/uL Nucleated RBCs 0 (0-0) /100 WBC Manual Slide Review Performed Hypochromasia Moderate Poikilocytosis (manual Present Anisocytosis Slight Target Cells Present Ovalocytes Present Fragmented RBCs Present Sodium 143 (137-145) mmol/L Potassium 3.7 (3.5-5.1) mmol/L Chloride 115 H (98-107) mmol/L Carbon Dioxide 18 L (22-30) mmol/L Anion Gap 10 mmol/L BUN 11 (9-20) mg/dL Creatinine 0.64 L (0.66-1.25) mg/dL Est GFR (CKD-EPI)AfAm >90 (>60 ml/min/1.73 sqM) Est GFR (CKD-EPI)NonAf >90 (>60 ml/min/1.73 sqM) Glucose 88 (74-99) mg/dL Calcium 9.1 (8.4-10.2) mg/dL Total Bilirubin 2.9 H (0.2-1.3) mg/dL AST 62 H (17-59) U/L ALT 43 (21-72) U/L Alkaline Phosphatase 121 (38-126) U/L Total Protein 7.6 (6.3-8.2) g/dL Albumin 3.7 (3.5-5.0) g/dL Amylase 49 (30-110) U/L Lipase 246 (23-300) U/L Serum Alcohol 102 mg/dL Disposition Clinical Impression: Alcohol abuse, Chronic alcoholic hepatitis Disposition: HOME SELF-CARE Condition: Good Instructions (If sedation given, give patient instructions): Pancreatitis (ED) Is patient prescribed a controlled substance at d/c from ED?: No Referrals: James Meza Jr, [Primary Care Provider] - 1-2 days
[2018-06-19 00:43] LABS: Anisocytosis Slight; HCT 27.5 % (39.0-53.0); HGB 8.9 gm/dL (13.0-17.5); Hypochromasia Moderate; MCH 29.1 pg (25.0-35.0); MCHC 32.3 g/dL (31.0-37.0); Mean Platelet Volume 7.9; Platelet Count 139 k/uL (150-450); RBC 3.06 m/uL (4.30-5.90); RDW 19.8 % (11.5-15.5); WBC 6.3 k/uL (3.8-10.6)
[2018-06-19 00:54] LABS: ALT 43 U/L (21-72); AST 62 U/L (17-59); Albumin 3.7 g/dL (3.5-5.0); Alkaline Phosphatase 121 U/L (38-126); Amylase 49 U/L (30-110); Anion Gap 10 mmol/L; Blood Urea Nitrogen 11 mg/dL (9-20); Calcium 9.1 mg/dL (8.4-10.2); Carbon Dioxide 18 mmol/L (22-30); Chloride 115 mmol/L (98-107); Glucose 88 mg/dL (74-99); Lipase 246 U/L (23-300); Potassium 3.7 mmol/L (3.5-5.1); Sodium 143 mmol/L (137-145); Total Bilirubin 2.9 mg/dL (0.2-1.3); Total Protein 7.6 g/dL (6.3-8.2)
[2018-06-19 01:13] LABS: Alcohol 102 mg/dL
[2018-06-19 01:30] LABS: Basophils # (M) 0.06 k/uL (0-0.2); Eosinophils # (M) 0.32 k/uL (0-0.7); Lymphocytes # (M) 2.46 k/uL (1.0-4.8); Monocytes # (M) 0.82 k/uL (0-1.0); Neutrophils # (M) 2.65 k/uL (1.3-7.7); Neutrophils % (M) 42 %; Nucleated Red Blood Cells 0 /100 WBC (0-0); Poikilocytosis (M) Present; Target Cells Present; Total Cells Counted 100
[2018-06-19 01:31] LABS: Ovalocytes Present; RBC Fragments Present
[2018-06-19 02:24] VITALS: BP 115/49; PULSE 83
== END 2018-06-19 02:23 | disposition home or self-care (01) ==
LOC: EC 00:22
DX: K70.10 Alcoholic hepatitis without ascites (principal); F10.10 Alcohol abuse, uncomplicated; R05 Cough; R09.89 Other specified symptoms and signs involving the circulatory and respiratory systems; J02.9 Acute pharyngitis, unspecified; G89.29 Other chronic pain; D64.9 Anemia, unspecified; F17.200 Nicotine dependence, unspecified, uncomplicated; Z79.899 Other long term (current) drug therapy; Z86.14 Personal history of Methicillin resistant Staphylococcus aureus infection; Z87.19 Personal history of other diseases of the digestive system; Z87.442 Personal history of urinary calculi; Z90.49 Acquired absence of other specified parts of digestive tract; Z98.890 Other specified postprocedural states
CPT/HCPCS: 36415; 80053; 82150; 83690; 85025; 99284; 96374; 96375 ×2; 96361 ×2; G0480; J2270; J2405; C9113; 80320

== ENCOUNTER 2018-07-08 22:40 | Observation (INO) | payer OTHER ==
[2018-07-08] MEDS ORDERED: HYDROmorphone 0.5 MG/0.5 ML SYRINGE IVP STA (23:08)
[2018-07-08] MEDS ORDERED: SODIUM CHLORIDE 0.9% 1,000 ML IV STA ×2 (23:08)
[2018-07-08] MEDS ORDERED: ONDANSETRON 4 MG/2 ML VIAL IVP STA (23:08)
[2018-07-08 23:21] LABS: Anisocytosis Moderate; Basophils # (A) 0.1 k/uL (0-0.2); Basophils % (A) 1 %; Eosinophils # (A) 0.6 k/uL (0-0.7); Eosinophils % (A) 7 %; HCT 34.1 % (39.0-53.0); HGB 10.4 gm/dL (13.0-17.5); Hypochromasia Marked; Lymphocytes # (A) 1.5 k/uL (1.0-4.8); Lymphocytes % (A) 16 %; MCH 28.3 pg (25.0-35.0); MCHC 30.5 g/dL (31.0-37.0); MCV 92.8 fL (80.0-100.0); Macrocytosis Slight; Mean Platelet Volume 9.6; Monocytes # (A) 0.8 k/uL (0-1.0); Monocytes % (A) 8 %; Neutrophils # (A) 6.1 k/uL (1.3-7.7); Neutrophils % (A) 65 %; Platelet Count 138 k/uL (150-450); RBC 3.67 m/uL (4.30-5.90); RDW 20.7 % (11.5-15.5); WBC 9.3 k/uL (3.8-10.6)
[2018-07-08 23:31] LABS: ALT 27 U/L (21-72); AST 62 U/L (17-59); Albumin 3.9 g/dL (3.5-5.0); Alkaline Phosphatase 103 U/L (38-126); Anion Gap 8 mmol/L; Blood Urea Nitrogen 8 mg/dL (9-20); Calcium 9.2 mg/dL (8.4-10.2); Carbon Dioxide 21 mmol/L (22-30); Chloride 108 mmol/L (98-107); Glucose 101 mg/dL (74-99); Lipase 249 U/L (23-300); Sodium 137 mmol/L (137-145); Total Bilirubin 2.4 mg/dL (0.2-1.3)
--- NOTE | 2018-07-08 23:31 | ED ---
Abdominal Pain HPI - General Chief Complaint: Abdominal Pain Stated Complaint: post op issue Time Seen by Provider: 07/08/18 22:49 Source: patient Mode of arrival: ambulatory Limitations: no limitations - History of Present Illness Initial Comments: Patient is a 43-year-old male presenting for epigastric discomfort. Patient states that he had a procedure today by GI where they found varices and he states that he was told that if the pain got worse, that he should return. The pain is located in the epigastric and right upper quadrant feels a stabbing sensation. The pain is been constant without radiation. He vomited twice but had no blood in his emesis. He denies any diarrhea or fevers or chills. He also denies any sarbjit chest pain or shortness breath. - Related Data Home Medications Medication Instructions Recorded Confirmed Folic Acid 1 mg PO DAILY@1200 09/01/17 07/08/18 Pseudoephedrine [Sudafed] 30 mg PO Q4H PRN 04/18/18 07/08/18 Propranolol [Inderal] 10 mg PO TID 07/06/18 07/08/18 [place] (Unknown) 1 tab PO Q4H 07/08/18 Previous Rx's Medication Instructions Recorded Multivitamins, Thera [Multivitamin 1 tab PO DAILY #30 tablet 09/03/17 (formulary)] Thiamine [Vitamin B-1] 100 mg PO DAILY #30 tablet 09/03/17 Allergies Allergy/AdvReac Type Severity Reaction Status Date / Time No Known Allergies Allergy Verified 07/08/18 22:58 Review of Systems ROS Statement: Those systems with pertinent positive or pertinent negative responses have been documented in the HPI. Constitutional: Negative for chills, fatigue and fever. HENT: Negative for congestion. Respiratory: Negative for chest tightness, shortness of breath and wheezing. Negative for cough Cardiovascular: Negative for chest pain and palpitations. Gastrointestinal: Positive for abdominal pain. Negative for abdominal distention , diarrhea, positive for nausea and vomiting. Genitourinary: Negative for dysuria. Musculoskeletal: Negative for back pain, neck pain and neck stiffness. Skin: Negative for color change. Neurological: Negative for dizziness, speech difficulty, weakness and light- headedness. Psychiatric/Behavioral: Negative for agitation and confusion. Negative for anxiety ROS Other: All systems not noted in ROS Statement are negative. Past Medical History Past Medical History: Asthma, GI Bleed, Liver Disease, Pneumonia Additional Past Medical History / Comment(s): ETOH abuse, liver cirrhosis, abdominal ascites, pancreatitis, multiple gallstones, nephrolithiasis, chronic anemia, esophageal varices, hx urinating blood and kidneys stone History of Any Multi-Drug Resistant Organisms: MRSA Date of last positivie culture/infection: 12/09/2013 MDRO Source:: Right first finger Past Surgical History: Appendectomy, Cholecystectomy, Orthopedic Surgery Additional Past Surgical History / Comment(s): 07/09/17 EGD/colonoscopy, paracentesis, right hand tendon repair, right knee arthroscopy, cystoscopy for kidney stone removal, right hand ring finger surgery. Past Anesthesia/Blood Transfusion Reactions: Previous Problems w/ Anesthesia Additional Past Anesthesia/Blood Transfusion Reaction / Comment(s): Woke up during scope procedure. Past Psychological History: PTSD Smoking Status: Current every day smoker - Past Family History Mother Family Medical History: Hypertension Father Additional Family Medical History / Comment(s): Prostate issues. Brain aneurysm. General Exam - General Exam Comments Initial Comments: Constitutional: Pt appears well-developed and well-nourished. No distress. Head: Normocephalic and atraumatic. Eyes: EOM are normal. Neck: Normal range of motion. Neck supple. Cardiovascular: Normal rate, regular rhythm, S1 normal, S2 normal and normal heart sounds. Exam reveals no gallop and no friction rub. No murmur heard. Pulmonary/Chest: Effort normal and breath sounds normal. No tachypnea and no bradypnea. No respiratory distress. No wheezes or rales noted. Abdominal: Soft. Bowel sounds are normal. Pt exhibits no shifting dullness, no distension, no pulsatile liver, no fluid wave, no abdominal bruit and no ascites. There is no rigidity, no rebound, no guarding, no tenderness at McBurney's point and negative Talamantes's sign. There is mild tenderness in the epigastric and right upper quadrant abdomen Musculoskeletal: Normal range of motion. Neurological: Pt is alert and oriented to person, place, and time. No cranial nerve deficit. Skin: Skin is warm and dry. No rash noted. Pt is not diaphoretic. No erythema. No pallor. Psychiatric: Pt has a normal mood and affect. Pt behavior is normal. Thought content normal. Limitations: no limitations Course Vital Signs 07/08/18 07/08/18 07/09/18 22:43 23:21 01:18 Temperature 97.6 F 97.8 F Pulse Rate 60 60 59 L Respiratory 20 18 18 Rate Blood Pressure 143/74 154/93 153/79 O2 Sat by Pulse 99 100 100 Oximetry Medical Decision Making - Medical Decision Making Maureen studies showed that there was no significant leukocytosis and electrolytes were relatively within normal limits. Lactic acid was also normal and there is no significant transaminitis or pancreatitis as compared to prior labs. CT of the abdomen was performed and showed findings consistent with distal esophagitis with no free air. It was attempted to reach Dr. Huff but she could not really reach and therefore case is discussed with Dr. Harrington and it was advised that findings are consistent with prior variceal banding. Nonetheless, it was also agreed that because the patient was still continuing to have significant pain even after Dilaudid, patient could be placed in observation for monitoring and pain control.Explained all labs and diagnostic test results and that we will admit patient to hospital. Pt is agreeable to plan and case will be discussed with Dr. Leblanc in the AM. - Lab Data Result diagrams: 07/08/18 23:14 07/08/18 23:14 Lab Results 07/08/18 07/08/18 07/08/18 Range/Units 23:14 23:14 23:14 WBC 9.3 (3.8-10.6) k/uL RBC 3.67 L (4.30-5.90) m/uL Hgb 10.4 L (13.0-17.5) gm/dL Hct 34.1 L (39.0-53.0) % MCV 92.8 (80.0-100.0) fL MCH 28.3 (25.0-35.0) pg MCHC 30.5 L (31.0-37.0) g/dL RDW 20.7 H (11.5-15.5) % Plt Count 138 L (150-450) k/uL Neutrophils % 65 % Lymphocytes % 16 % Monocytes % 8 % Eosinophils % 7 % Basophils % 1 % Neutrophils # 6.1 (1.3-7.7) k/uL Lymphocytes # 1.5 (1.0-4.8) k/uL Monocytes # 0.8 (0-1.0) k/uL Eosinophils # 0.6 (0-0.7) k/uL Basophils # 0.1 (0-0.2) k/uL Hypochromasia Marked Anisocytosis Moderate Macrocytosis Slight Sodium 137 (137-145) mmol/L Potassium 4.4 (3.5-5.1) mmol/L Chloride 108 H (98-107) mmol/L Carbon Dioxide 21 L (22-30) mmol/L Anion Gap 8 mmol/L BUN 8 L (9-20) mg/dL Creatinine 0.45 L (0.66-1.25) mg/dL Est GFR (CKD-EPI)AfAm >90 (>60 ml/min/1.73 sqM) Est GFR (CKD-EPI)NonAf >90 (>60 ml/min/1.73 sqM) Glucose 101 H (74-99) mg/dL Plasma Lactic Acid Balaji 1.7 (0.7-2.0) mmol/L Calcium 9.2 (8.4-10.2) mg/dL Total Bilirubin 2.4 H (0.2-1.3) mg/dL AST 62 H (17-59) U/L ALT 27 (21-72) U/L Alkaline Phosphatase 103 (38-126) U/L Total Protein 8.0 (6.3-8.2) g/dL Albumin 3.9 (3.5-5.0) g/dL Lipase 249 (23-300) U/L Disposition Clinical Impression: Esophagitis, Intractable abdominal pain Disposition: ADMITTED IP TO THIS [facility] Condition: Fair Referrals: James Meza Jr, [Primary Care Provider] - 1-2 days Decision to Admit Reason: Admit from [facility] Decision Date: 07/09/18 Decision Time: 01:55
[2018-07-08 23:45] LABS: Potassium 4.4 mmol/L (3.5-5.1)
--- NOTE | 2018-07-09 01:10 | CT ---
EXAM: CT Chest With Intravenous Contrast CLINICAL HISTORY: ITS.REASON CT Reason: RUQ pain, s/p varices banding TECHNIQUE: Axial computed tomography images of the chest with intravenous contrast. CTDI is 17.27 mGy and DLP is 965.2 mGy-cm. This CT exam was performed using one or more of the following dose reduction techniques: automated exposure control, adjustment of the mA and/or kV according to patient size, and/or use of iterative reconstruction technique. COMPARISON: CT chest on 11/22/2017 FINDINGS: Lung parenchyma: Paraseptal emphysematous changes in the visualized upper lungs. Mild bibasilar atelectasis. No focal consolidation. No nodule. Pleural space: Normal. No pleural effusion or pneumothorax. Mediastinum/laith: Nonspecific similar mildly prominent mediastinal and hilar lymph nodes. Heart: Normal. No cardiomegaly or pericardial effusion. Vasculature: No pulmonary embolus, but this was not performed as a PE study. Aorta: Normal. No aneurysm or dissection. Airways: Patent. Bones: Degenerative changes of the spine. Multiple levels of Schmorl's node deformities. No bony lesion or acute fracture. Muscles: No mass. Subcutaneous tissues: Normal. Other: Question mild prominence of the wall of the distal esophagus which could represent esophagitis. IMPRESSION: 1. No acute pulmonary parenchymal abnormality identified. 2. Motion mild prominence of the wall of the distal esophagus. This could represent esophagitis. EXAM: CT Abdomen and Pelvis With Intravenous Contrast CLINICAL HISTORY: ITS.REASON CT Reason: RUQ pain, s/p varices banding TECHNIQUE: Axial computed tomography images of the abdomen and pelvis with intravenous contrast. CTDI is 17.27 mGy and DLP is 965.2 mGy-cm. This CT exam was performed using one or more of the following dose reduction techniques: automated exposure control, adjustment of the mA and/or kV according to patient size, and/or use of iterative reconstruction technique. COMPARISON: CT abdomen/pelvis on 11/28/2017 FINDINGS: Liver: Cirrhotic liver. No focal lesion. Spleen: And splenomegaly. No focal lesion. Gallbladder: Prior cholecystectomy. Pancreas: Normal. No acute inflammation. No mass. Adrenal glands: Normal. No mass. Kidneys: Nonobstructing bilateral renal stones. No hydronephrosis or ureteral stone. No mass. Bowel: Appendix is not visualized, but no CT evidence of acute appendicitis. No bowel obstruction or inflammation. Urinary bladder: Normal. No wall thickening or mass. Reproductive organs: Normal. Muscles: No mass. Subcutaneous tissues: Small amount of fluid in a left inguinal hernia. Peritoneal space: Minimal amount of ascites. Lymph nodes: Normal. No lymphadenopathy. Vessels: Varices in the upper abdomen. No aneurysm or dissection. Mild atherosclerotic changes. Bones: Degenerative changes of the spine. Multiple levels of Schmorl's node deformities. No acute fracture or bony lesion. Lung bases: Please see accompanying CT chest. IMPRESSION: 1. Cirrhosis. Changes of portal hypertension including small amount of ascites, splenomegaly, varices in the upper abdomen. 2. Nonobstructing bilateral renal stones. No hydronephrosis or ureteral stone.
[2018-07-09] MEDS ORDERED: ONDANSETRON 4 MG/2 ML VIAL IVP PRN (01:47)
[2018-07-09] MEDS ORDERED: NALOXONE 0.4 MG/ML 1 ML VIAL IV PRN (01:47)
[2018-07-09] MEDS: HYDROmorphone 0.5 MG/0.5 ML SYRINGE IVP PRN ×6 (02:46→21:11)
[2018-07-09] MEDS: PANTOPRAZOLE 40 MG/10 ML VIAL IV SCH (08:42)
[2018-07-09] MEDS ORDERED: PSEUDOEPHEDRINE 30 MG TAB PO PRN (11:30)
--- NOTE | 2018-07-09 11:44 | P.HPIM ---
History of Present Illness H&P Date: 07/09/18 Chief Complaint: Abdominal pain, recent esophageal varices banding Patient is a relatively new patient to the practice fairly pleasant 43-year-old male who presents with epigastric discomfort. Patient had a variceal banding for esophageal varices per Dr. Bernie Aburto the pain became unbearable he worse and patient was instructed to come to the hospital he has localized epigastric tenderness right upper quadrant with stabbing sensation pain is been constant without radiation. Patient vomited twice actually a third time this morning with little or no blood at all. Denies diarrhea fever chills denies chest pain or shortness of breath. Patient states he quit drinking alcohol completely for approximately 1 week prior to that he was a daily alcohol consumer for many years Review of Systems Constitutional: Reports as per HPI Ears, nose, mouth and throat: Reports as per HPI Cardiovascular: Reports as per HPI Respiratory: Reports as per HPI Gastrointestinal: Reports abdominal pain (Multiple esophageal varices by history known alcoholic, recent banding of esophageal varices or Dr. Bernie Aburto ) Genitourinary: Reports as per HPI Musculoskeletal: Reports as per HPI Integumentary: Reports as per HPI Neurological: Reports as per HPI (Aggressive alcohol abuse) Psychiatric: Reports anxiety Endocrine: Reports as per HPI Past Medical History Past Medical History: Asthma, GI Bleed, Liver Disease, Pneumonia Additional Past Medical History / Comment(s): ETOH abuse, liver cirrhosis, abdominal ascites, pancreatitis, multiple gallstones, nephrolithiasis, chronic anemia, esophageal varices, hx urinating blood and kidneys stone History of Any Multi-Drug Resistant Organisms: MRSA Date of last positivie culture/infection: 12/09/2013 MDRO Source:: Right first finger Past Surgical History: Appendectomy, Cholecystectomy, Orthopedic Surgery Additional Past Surgical History / Comment(s): 07/09/17 EGD/colonoscopy, paracentesis, right hand tendon repair, right knee arthroscopy, cystoscopy for kidney stone removal, right hand ring finger surgery. Past Anesthesia/Blood Transfusion Reactions: Previous Problems w/ Anesthesia Additional Past Anesthesia/Blood Transfusion Reaction / Comment(s): Woke up during scope procedure. Past Psychological History: PTSD Additional Psychological History / Comment(s): Pt lives in his apartment. His girlfriend and her son are usually there with him. He does not drive, he gets to appts by his girlfriend, family or bus. 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 Smoking Status: Current every day smoker Past Alcohol Use History: Abuse, Daily Additional Past Alcohol Use History / Comment(s): Pt states he started smoking in 1983 and is a ppd smoker. PT states reduced the amount of alcohol to a few days a week, drinking 2-3 drinks on those occasions. Pt states used to drink a fifth or 1/2 gallon and some beers daily. Past Drug Use History: Marijuana Additional Drug Use History / Comment(s): Pt states he smokes marijuana on occasion. No other drug use. - Past Family History Mother Family Medical History: Hypertension Father Additional Family Medical History / Comment(s): Prostate issues. Brain aneurysm. Medications and Allergies Home Medications Medication Instructions Recorded Confirmed Type Folic Acid 1 mg PO DAILY@1200 09/01/17 07/08/18 History Multivitamins, Thera [Multivitamin 1 tab PO DAILY #30 tablet 09/03/17 07/08/18 Rx (formulary)] Thiamine [Vitamin B-1] 100 mg PO DAILY #30 tablet 09/03/17 07/08/18 Rx Pseudoephedrine [Sudafed] 30 mg PO Q4H PRN 04/18/18 07/08/18 History Propranolol [Inderal] 10 mg PO TID 07/06/18 07/08/18 History HYDROcodone/APAP 5-325MG [[place] 1 tab PO Q6H PRN 07/09/18 07/09/18 History 5-325] Allergies Allergy/AdvReac Type Severity Reaction Status Date / Time No Known Allergies Allergy Verified 07/08/18 22:58 Physical Exam Osteopathic Statement: *. No significant issues noted on an osteopathic structural exam other than those noted in the History and Physical/Consult. Vitals: Vital Signs Temp Pulse Pulse Resp BP BP Pulse Ox 07/09/18 07:00 98.1 F 70 18 101/53 94 L 07/09/18 03:10 64 16 07/09/18 03:00 98.1 F 64 16 135/77 96 07/09/18 02:48 98.4 F 78 16 117/84 100 07/09/18 01:18 97.8 F 59 L 18 153/79 100 07/08/18 23:21 60 18 154/93 100 07/08/18 22:43 97.6 F 60 20 143/74 99 Intake and Output 07/08/18 07/09/18 07/09/18 22:59 06:59 14:59 Intake Total 300 Balance 300 Intake: Intake, IV Titration 300 Amount Sodium Chloride 0.9% 1, 300 000 ml @ 75 mls/hr IV . [id number] STA Rx#:[id number] Other: Voiding Method Toilet # Voids 1 Weight 84.368 kg General: [Patient awake, alert and oriented times 3. Patient in no acute distress.] HEENT: [PERRL. EOMI. No pharyngeal erythema or exudate.] Neck: [No adenopathy.] Cardiac: [Heart regular in rate and rhythm. No S3. No S4. No clicks, rubs. No murmur.] Lungs: [Clear to auscultation bilaterally.] Abdomen: [No mass. No organomegaly. Bowel sounds presnt and normoactive in all 4 quadrants.] Diffuse mild epigastric pain on palpation mild ascites Extremes: [No edema no cyanosis no claudication normal pulses] : [] Musculoskeletal: [No joint erythema, edema or tenderness.] Skin: [No rash.] Neurologic: [No lateralizing deficits. CN II - XII grossly intact.] Lymphatic: [No adenopathy.] Results CBC & Chem 7: 07/08/18 23:14 07/08/18 23:14 Labs: Abnormal Lab Results - Last 24 Hours (Table) 07/08/18 07/08/18 Range/Units 23:14 23:14 RBC 3.67 L (4.30-5.90) m/uL Hgb 10.4 L (13.0-17.5) gm/dL Hct 34.1 L (39.0-53.0) % MCHC 30.5 L (31.0-37.0) g/dL RDW 20.7 H (11.5-15.5) % Plt Count 138 L (150-450) k/uL Chloride 108 H (98-107) mmol/L Carbon Dioxide 21 L (22-30) mmol/L BUN 8 L (9-20) mg/dL Creatinine 0.45 L (0.66-1.25) mg/dL Glucose 101 H (74-99) mg/dL Total Bilirubin 2.4 H (0.2-1.3) mg/dL AST 62 H (17-59) U/L Thrombosis Risk Factor Assmnt - DVT/VTE Prophylaxis DVT/VTE Prophylaxis: Low risk, early ambulation encouraged - Choose All That Apply Any of the Below Risk Factors Present?: Yes Each Factor Represents 1 point: Age 41-60 years, Obesity (BMI >25) Thrombosis Risk Factor Assessment Total Risk Factor Score: 2 Thrombosis Risk Factor Assessment Level: Low Risk Assessment and Plan (1) Esophagitis Narrative/Plan: Postop banding of esophageal varices last week Current Visit: Yes Status: Acute Code(s): K20.9 - ESOPHAGITIS, UNSPECIFIED SNOMED Code(s): 69795872 (2) Intractable abdominal pain Narrative/Plan: Intractable abdominal pain secondary to banding of esophageal varices Current Visit: Yes Status: Acute Code(s): R10.9 - UNSPECIFIED ABDOMINAL PAIN SNOMED Code(s): 89419138 Plan: Alcoholism, cirrhosis of the liver History of recurrent acute pancreatitis History of gallstones with cholecystectomy Recent history of esophageal varices with banding last week per Dr. Aburto Will attempt to help patient control pain, will also do serial H&H's to assess whether he is bleeding (doubt) Advance diet as tolerated patient states he has not drank since approximately a week ago will not prophylax for DVTs unless otherwise Of all is well we'll discharge tomorrow Time with Patient: Greater than 30
[2018-07-09] MEDS: FOLIC ACID 1 MG TAB PO SCH (12:25)
[2018-07-09] MEDS: PROPRANOLOL 10 MG TAB PO SCH ×2 (15:56→21:11)
--- NOTE | 2018-07-09 19:49 | P.CONS ---
History of Present Illness - Reason for Consult Consult date: 07/09/18 Abdominal pain Requesting physician: James Meza Jr - Chief Complaint Abdominal pain - History of Present Illness 43-year-old male with a known history of chronic anemia, occult use, asthma, alcoholic cirrhosis and esophageal varices who presented to the hospital with complaints of abdominal pain. The patient has had prior episodes of pancreatitis and a prior episode of esophageal variceal bleed for which she underwent ascending approximately one and half years ago. He underwent further banding on the day of presentation to the emergency department during which he had 5 bands placed on large distal esophageal varices as well as findings of portal hypertensive gastropathy. After the procedure the patient had reported epigastric discomfort and a stabbing pain in the right upper quadrant of his abdomen. The patient was sent home and told to come back to the ER if he had further pain or if it worsened during the night. The patient reports that in the middle the night he felt the pain was intolerable and presented for further evaluation. He reports to associated episodes of vomiting with no blood seen in the emesis. He denies any bowel movements or blood per rectum or melena. The patient had a computed tomography scan in evaluation which was consistent with portal hypertension, cirrhosis and a small amount of ascites. Laboratory evaluation on presentation was significant for a WBC count 9.3, hemoglobin 10.4 and platelet count of 138. Liver enzymes were consistent with alcoholic cirrhosis with a total bilirubin 2.4, alkaline phosphatase 103, AST 62 and ALT 27. Review of Systems REVIEW OF SYSTEMS: CONSTITUTIONAL: Denies any fevers, chills, weight change or fatigue. CARDIOVASCULAR: Denies any chest pain, palpitations high or low blood pressures RESPIRATORY: Denies any shortness of breath, hemoptysis or cough. GENITOURINARY: No dysuria or hematuria. MUSCULOSKELETAL: No weakness reported. SKIN: Denies any new rashes or lesions, jaundice or pallor. PSYCHIATRIC: Denies any depression or anxiety. NEUROLOGY: Denies headache, denies any new focal deficits. EARS/NOSE/THROAT: No recent hearing change, congestion, nasal discharge or sore throat. EYES: No pain in eyes, discharge or change in vision. GASTROINTESTINAL: As per HPI. Past Medical History Past Medical History: Asthma, GI Bleed, Liver Disease, Pneumonia Additional Past Medical History / Comment(s): ETOH abuse, liver cirrhosis, abdominal ascites, pancreatitis, multiple gallstones, nephrolithiasis, chronic anemia, esophageal varices, hx urinating blood and kidneys stone History of Any Multi-Drug Resistant Organisms: MRSA Year Discovered:: 12/09/2013 MDRO Source:: Right first finger Past Surgical History: Appendectomy, Cholecystectomy, Orthopedic Surgery Additional Past Surgical History / Comment(s): 07/09/17 EGD/colonoscopy, paracentesis, right hand tendon repair, right knee arthroscopy, cystoscopy for kidney stone removal, right hand ring finger surgery. Past Anesthesia/Blood Transfusion Reactions: Previous Problems w/ Anesthesia Additional Past Anesthesia/Blood Transfusion Reaction / Comm: Woke up during scope procedure. Past Psychological History: PTSD Additional Psychological History / Comment(s): Pt lives in his apartment. His girlfriend and her son are usually there with him. He does not drive, he gets to appts by his girlfriend, family or bus. 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 Smoking Status: Current every day smoker Past Alcohol Use History: Abuse, Daily Additional Past Alcohol Use History / Comment(s): Pt states he started smoking in 1983 and is a ppd smoker. PT states reduced the amount of alcohol to a few days a week, drinking 2-3 drinks on those occasions. Pt states used to drink a fifth or 1/2 gallon and some beers daily. Past Drug Use History: Marijuana Additional Drug Use History / Comment(s): Pt states he smokes marijuana on occasion. No other drug use. - Past Family History Mother Family Medical History: Hypertension Father Additional Family Medical History / Comment(s): Prostate issues. Brain aneurysm. Medications and Allergies Home Medications Medication Instructions Recorded Confirmed Type Folic Acid 1 mg PO DAILY@1200 09/01/17 07/08/18 History Multivitamins, Thera [Multivitamin 1 tab PO DAILY #30 tablet 09/03/17 07/08/18 Rx (formulary)] Thiamine [Vitamin B-1] 100 mg PO DAILY #30 tablet 09/03/17 07/08/18 Rx Pseudoephedrine [Sudafed] 30 mg PO Q4H PRN 04/18/18 07/08/18 History Propranolol [Inderal] 10 mg PO TID 07/06/18 07/08/18 History HYDROcodone/APAP 5-325MG [[place] 1 tab PO Q6H PRN 07/09/18 07/09/18 History 5-325] Allergies Allergy/AdvReac Type Severity Reaction Status Date / Time No Known Allergies Allergy Verified 07/08/18 22:58 Physical Exam Vitals: Vital Signs Temp Pulse Pulse Resp BP BP Pulse Ox 07/09/18 15:00 98 F 64 16 115/70 96 07/09/18 07:00 98.1 F 70 18 101/53 94 L 07/09/18 03:10 64 16 07/09/18 03:00 98.1 F 64 16 135/77 96 07/09/18 02:48 98.4 F 78 16 117/84 100 07/09/18 01:18 97.8 F 59 L 18 153/79 100 07/08/18 23:21 60 18 154/93 100 07/08/18 22:43 97.6 F 60 20 143/74 99 Intake and Output 07/09/18 07/09/18 07/09/18 06:59 14:59 22:59 Intake Total 300 1200 Balance 300 1200 Intake: Intake, IV Titration 300 600 Amount Sodium Chloride 0.9% 1, 300 600 000 ml @ 75 mls/hr IV . [id number] STA Rx#:[id number] Oral 600 Other: Voiding Method Toilet Toilet Toilet # Voids 1 1 1 On physical examination, patient appears comfortable in no apparent distress. HEAD: Normocephalic, atraumatic. EYES: No scleral icterus. No conjunctival injection. MOUTH: No lesions, tongue midline. NECK: Trachea midline, no gross abnormalities. CHEST: Clear to auscultation with no wheezing or rhonchi appreciated. HEART: Regular rate and rhythm. ABDOMEN: Soft, obese. Bowel sounds are positive. No organomegaly. No guarding or rigidity. EXTREMITIES: No pedal edema. SKIN: No rashes, no jaundice. NEUROLOGIC: Alert and oriented x3. No focal deficits. Results CBC & Chem 7: 07/08/18 23:14 07/08/18 23:14 Labs: Abnormal Lab Results - Last 24 Hours (Table) 07/08/18 07/08/18 Range/Units 23:14 23:14 RBC 3.67 L (4.30-5.90) m/uL Hgb 10.4 L (13.0-17.5) gm/dL Hct 34.1 L (39.0-53.0) % MCHC 30.5 L (31.0-37.0) g/dL RDW 20.7 H (11.5-15.5) % Plt Count 138 L (150-450) k/uL Chloride 108 H (98-107) mmol/L Carbon Dioxide 21 L (22-30) mmol/L BUN 8 L (9-20) mg/dL Creatinine 0.45 L (0.66-1.25) mg/dL Glucose 101 H (74-99) mg/dL Total Bilirubin 2.4 H (0.2-1.3) mg/dL AST 62 H (17-59) U/L CT scan - abdomen: report reviewed (computed tomography scan in evaluation which was consistent with portal hypertension, cirrhosis and a small amount of ascites.) Assessment and Plan (1) Esophagitis Narrative/Plan: Patient presenting with complaints of abdominal pain after EGD with variceal banding. No signs or symptoms of GI bleeding. Current Visit: Yes Status: Acute Code(s): K20.9 - ESOPHAGITIS, UNSPECIFIED SNOMED Code(s): 02164344 (2) Intractable abdominal pain Current Visit: Yes Status: Acute Code(s): R10.9 - UNSPECIFIED ABDOMINAL PAIN SNOMED Code(s): 75071814 (3) Alcohol abuse Current Visit: No Status: Acute Code(s): F10.10 - ALCOHOL ABUSE, UNCOMPLICATED SNOMED Code(s): 71952494 (4) Alcoholic cirrhosis of liver with ascites Narrative/Plan: Patient with a known alcoholic cirrhosis with a small amount of ascites seen on computed tomography scan of the abdomen. Current Visit: No Status: Acute Code(s): K70.31 - ALCOHOLIC CIRRHOSIS OF LIVER WITH ASCITES SNOMED Code(s): 829355314 (5) Elevated bilirubin Narrative/Plan: Elevation in liver enzymes consistent with a known history of alcoholic liver disease Current Visit: No Status: Acute Code(s): R17 - UNSPECIFIED JAUNDICE SNOMED Code(s): 884084719 Plan: Supportive care Diet advance to full liquid Continue Protonix therapy Continue antiemetics as needed Continue to monitor hemoglobin and hematocrit Okay for discharge tomorrow if pain is improving Follow-up with gastroenterology in the outpatient setting Thank you for allowing us dysphagia in the care of this patient, we will continue to follow
[2018-07-10] MEDS: HYDROmorphone 0.5 MG/0.5 ML SYRINGE IVP PRN ×5 (00:15→12:53)
[2018-07-10] MEDS: PANTOPRAZOLE 40 MG/10 ML VIAL IV SCH (07:58)
[2018-07-10] MEDS: PROPRANOLOL 10 MG TAB PO SCH (07:59)
[2018-07-10 08:08] VITALS: BP 117/64; PULSE 69; RESP 18; TEMP 98.1
[2018-07-10] MEDS: FOLIC ACID 1 MG TAB PO SCH (11:58)
[2018-07-10] MEDS ORDERED: MULTIVITAMINS, THERA 1 EACH TAB PO SCH (12:00)
[2018-07-10] MEDS ORDERED: THIAMINE 100 MG TAB PO SCH (12:00)
--- NOTE | 2018-07-10 12:53 | P.DS ---
Providers Date of admission: 07/09/18 01:48 Expected date of discharge: 07/10/18 Attending physician: James Meza Consults: 07/09/18 01:49 Consult Physician Urgent Consulting Provider: Bernie Huff Consult Reason/Comments: Abdominal pain following EGD Do you want consulting provider notified?: Yes, Notify in am Primary care physician: James Meza - Discharge Diagnosis(es) (1) Esophagitis Status post outpatient procedure esophageal banding for esophageal varices patient had epigastric pain not like anything he never experienced before At the time of evaluation today he said symptoms were improving and tolerating diet General: [Patient awake, alert and oriented times 3. Patient in no acute distress.] HEENT: [PERRL. EOMI. No pharyngeal erythema or exudate.] Neck: [No adenopathy.] Cardiac: [Heart regular in rate and rhythm. No S3. No S4. No clicks, rubs. No murmur.] Lungs: [Clear to auscultation bilaterally.] Abdomen: [No mass. No organomegaly. Bowel sounds presnt and normoactive in all 4 quadrants.] Mild diffuse tenderness resolving Extremes: [No edema no cyanosis no claudication normal pulses] : [] Musculoskeletal: [No joint erythema, edema or tenderness.] Skin: [No rash.] Neurologic: [No lateralizing deficits. CN II - XII grossly intact.] Lymphatic: [No adenopathy.] Current Visit: Yes Status: Acute (2) Intractable abdominal pain Current Visit: Yes Status: Acute Patient Condition at Discharge: Fair Plan - Discharge Summary Discharge Rx Participant: Yes New Discharge Prescriptions: No Action Folic Acid 1 mg PO DAILY@1200 Multivitamins, Thera [Multivitamin (formulary)] 1 tab PO DAILY #30 tablet Thiamine [Vitamin B-1] 100 mg PO DAILY #30 tablet Pseudoephedrine [Sudafed] 30 mg PO Q4H PRN PRN Reason: Congestion Propranolol [Inderal] 10 mg PO TID HYDROcodone/APAP 5-325MG [Mcpherson 5-325] 1 tab PO Q6H PRN PRN Reason: Pain Discharge Medication List Folic Acid 1 mg PO DAILY@1200 09/01/17 [History] Multivitamins, Thera [Multivitamin (formulary)] 1 tab PO DAILY #30 tablet [Rx] Thiamine [Vitamin B-1] 100 mg PO DAILY #30 tablet 09/03/17 [Rx] Pseudoephedrine [Sudafed] 30 mg PO Q4H PRN 04/18/18 [History] Propranolol [Inderal] 10 mg PO TID 07/06/18 [History] HYDROcodone/APAP 5-325MG [Mcpherson 5-325] 1 tab PO Q6H PRN 07/09/18 [History] Follow up Appointment(s)/Referral(s): James Meza Jr, [Primary Care Provider] - 1-2 days
--- NOTE | 2018-07-10 16:38 | P.PN ---
Subjective Progress Note Date: 07/10/18 Principal diagnosis: Esophagitis, abdominal pain Pain improved today. Tolerated full liquids. No signs or symptoms of GI bleeding. Objective - Vital Signs Vital signs: Vital Signs Temp 98.1 F 07/10/18 08:07 Pulse 69 07/10/18 08:07 Resp 18 07/10/18 08:07 BP 117/64 07/10/18 08:07 Pulse Ox 94 L 07/10/18 08:07 Intake & Output 07/09/18 07/10/18 07/10/18 18:59 06:59 18:59 Intake Total 1200 1080 Balance 1200 1080 Intake: Intake, IV Titration 600 600 Amount Sodium Chloride 0.9% 1, 600 600 000 ml @ 75 mls/hr IV . [id number] STA Rx#:[id number] Oral 600 480 Other: Voiding Method Toilet Toilet # Voids 1 1 - Exam On physical examination, patient appears comfortable in no apparent distress. HEAD: Normocephalic, atraumatic. EYES: No scleral icterus. No conjunctival injection. MOUTH: No lesions, tongue midline. NECK: Trachea midline, no gross abnormalities. CHEST: Clear to auscultation with no wheezing or rhonchi appreciated. HEART: Regular rate and rhythm. ABDOMEN: Soft, obese. Bowel sounds are positive. No organomegaly. No guarding or rigidity. EXTREMITIES: No pedal edema. SKIN: No rashes, no jaundice. NEUROLOGIC: Alert and oriented x3. No focal deficits. - Labs CBC & Chem 7: 07/08/18 23:14 07/08/18 23:14 Assessment and Plan (1) Esophagitis Narrative/Plan: Patient presenting with complaints of abdominal pain after EGD with variceal banding. No signs or symptoms of GI bleeding. Status: Acute Code(s): K20.9 - ESOPHAGITIS, UNSPECIFIED SNOMED Code(s): 88431250 (2) Intractable abdominal pain Status: Acute Code(s): R10.9 - UNSPECIFIED ABDOMINAL PAIN SNOMED Code(s): 44415422 (3) Alcohol abuse Status: Acute Code(s): F10.10 - ALCOHOL ABUSE, UNCOMPLICATED SNOMED Code(s) : 79471645 (4) Alcoholic cirrhosis of liver with ascites Narrative/Plan: Patient with a known alcoholic cirrhosis with a small amount of ascites seen on computed tomography scan of the abdomen. Status: Acute Code(s): K70.31 - ALCOHOLIC CIRRHOSIS OF LIVER WITH ASCITES SNOMED Code(s): 981791557 (5) Elevated bilirubin Narrative/Plan: Elevation in liver enzymes consistent with a known history of alcoholic liver disease Status: Acute Code(s): R17 - UNSPECIFIED JAUNDICE SNOMED Code(s): 458960686 Plan: Supportive care Diet advanced to soft today Continue Protonix therapy Continue antiemetics as needed Continue to monitor hemoglobin and hematocrit Okay for discharge Follow-up with gastroenterology in the outpatient setting Thank you for allowing us dysphagia in the care of this patient, we will continue to follow
== END 2018-07-10 14:04 | disposition home or self-care (01) ==
LOC: EC 22:40 → 4SSUR 07-09 01:48
PROVIDERS: ADMIT Family Medicine; ATTEND Family Medicine
DX: K20.9 Esophagitis, unspecified (principal); G89.18 Other acute postprocedural pain; R10.13 Epigastric pain; R10.11 Right upper quadrant pain; K70.31 Alcoholic cirrhosis of liver with ascites; I85.00 Esophageal varices without bleeding; K76.6 Portal hypertension; K31.89 Other diseases of stomach and duodenum; F10.20 Alcohol dependence, uncomplicated; N20.0 Calculus of kidney; Z98.890 Other specified postprocedural states; D64.9 Anemia, unspecified; F43.10 Post-traumatic stress disorder, unspecified; F17.210 Nicotine dependence, cigarettes, uncomplicated; E66.9 Obesity, unspecified; Z68.25 Body mass index [BMI] 25.0-25.9, adult; Z79.899 Other long term (current) drug therapy; Z87.442 Personal history of urinary calculi; Z86.14 Personal history of Methicillin resistant Staphylococcus aureus infection; Z90.49 Acquired absence of other specified parts of digestive tract; Z87.01 Personal history of pneumonia (recurrent); Z87.19 Personal history of other diseases of the digestive system; Z82.49 Family history of ischemic heart disease and other diseases of the circulatory system
CPT/HCPCS: 96376 ×3; 96361 ×4; 96375 ×2; 96374; 99285; 36415; 80053; 83605; 83690; 85025; 71260; 74177; G0378 ×2; J2405 ×2; C9113 ×2; J1170 ×3; Q9967

== ENCOUNTER → 2018-07-08 | Day surgery (SDC) | payer OTHER ==
[2018-07-06 11:38] VITALS: BMI 25.6
[~2018-07-08] MED LIST changes: +HYDROcodone/APAP 5-325MG 1 EACH TAB PO ONE; +HYDROmorphone 1 MG/ML 1 ML SYRINGE IVP ONE; +LIDOCAINE 1% 20 ML VIAL (10MG/ML) FOR IV START INTRADERMA PRN; +LIDOCAINE 1% INJ 10MG/ML (20 ML MDV) ONE; +PROPOFOL 10 MG/ML 20 ML VIAL IV ONE
[2018-07-08 12:04] VITALS: TEMP 99.3
--- NOTE | 2018-07-08 13:20 | P.PCN ---
Date of Procedure: 07/08/18 Procedure(s) Performed: BRIEF HISTORY: Patient is a 43-year-old, pleasant, white male with history of alcohol cirrhosis and prior esophageal variceal bleeding for which he scheduled for an upper endoscopy with variceal ligation. PROCEDURE PERFORMED: Esophagogastroduodenoscopy with variceal ligation. PREOPERATIVE DIAGNOSIS: Alcoholic cirrhosis/history of esophageal variceal bleeding. IV sedation per anesthesia. PROCEDURE: After informed consent was obtained, the patient was brought into the endoscopy unit. IV sedation was administered by Anesthesia under continuous monitoring. Initially the Olympus GIF-140 video endoscope was inserted into the mouth. Esophagus intubated without any difficulty. It was gradually advanced into the stomach and duodenum and carefully examined. The bulb and the second part of the duodenum appeared normal. The scope at this time was withdrawn to the stomach, adequately insufflated with air, and upon careful examination, mucosa of the antrum, body, had changes consistent with portal hypertensive gastropathy. The cardia and the fundus appeared normal. The scope was then withdrawn into the esophagus. The GE junction was located at 39 cm from the incisors. There were large distal esophageal varices noted. At this time the scope was removed and esophageal variceal ligation equipment was introduced into the tip of the scope and esophagus reintubated without any difficulty and was advanced into the distal esophagus. Total of 5 bands were deployed in the distal esophagus in a spiral fashion. The rest of the esophagus appeared normal. There were no erosions or ulcerations seen and the patient tolerated the procedure well. IMPRESSION: 1. Large distal esophageal varices status post variceal ligation as described above. 2. Portal Hypertensive gastropathy. RECOMMENDATIONS: The findings of this examination were discussed with the patient as well as his family. He will continue with Inderal 10 mg 3 times daily and he'll be seen in the office in 6 weeks. Will plan a repeat upper endoscopy in one to 2 months .
[2018-07-08 13:26] LABS: ALT 37 U/L (21-72); AST 50 U/L (17-59); Albumin 3.5 g/dL (3.5-5.0); Alkaline Phosphatase 103 U/L (38-126); Anion Gap 7 mmol/L; Blood Urea Nitrogen 11 mg/dL (9-20); Calcium 9.1 mg/dL (8.4-10.2); Carbon Dioxide 21 mmol/L (22-30); Chloride 114 mmol/L (98-107); Glucose 98 mg/dL (74-99); Potassium 4.1 mmol/L (3.5-5.1); Sodium 142 mmol/L (137-145); Total Bilirubin 1.6 mg/dL (0.2-1.3); Total Protein 7.2 g/dL (6.3-8.2)
[2018-07-08 13:39] LABS: Anisocytosis Moderate; Basophils # (A) 0.1 k/uL (0-0.2); Basophils % (A) 1 %; Eosinophils # (A) 0.5 k/uL (0-0.7); Eosinophils % (A) 8 %; HCT 31.7 % (39.0-53.0); HGB 9.6 gm/dL (13.0-17.5); Hypochromasia Marked; Lymphocytes # (A) 1.3 k/uL (1.0-4.8); Lymphocytes % (A) 21 %; MCH 28.1 pg (25.0-35.0); MCHC 30.4 g/dL (31.0-37.0); MCV 92.6 fL (80.0-100.0); Macrocytosis Slight; Mean Platelet Volume 9.1; Monocytes # (A) 0.6 k/uL (0-1.0); Monocytes % (A) 9 %; Neutrophils # (A) 3.7 k/uL (1.3-7.7); Neutrophils % (A) 58 %; Platelet Count 127 k/uL (150-450); RBC 3.43 m/uL (4.30-5.90); RDW 20.7 % (11.5-15.5); WBC 6.3 k/uL (3.8-10.6)
[2018-07-08 13:53] LABS: Large Platelets Present
--- NOTE | 2018-07-08 13:56 | XR ---
EXAMINATION TYPE: XR abdomen 1V DATE OF EXAM: 07/08/2018 COMPARISON: NONE HISTORY: Pain TECHNIQUE: One limited view abdominal series submitted which does not include the pelvis and lower marquez lf of the bowel gas pattern. FINDINGS: The osseous structures are intact. The bowel gas pattern is nonspecific. There are dilated small bow el loops. Surgical clips in the right upper quadrant. Only portions of the abdomen are excluded.. IMPRESSION: 1. Nonspecific abdomen. Dilated small bowel loops in the upper abdomen. The pelvis and lower half of the bowel gas pattern is not included. No obvious evidence of free air based on the image provided.
[2018-07-08 14:38] VITALS: BP 155/88; PULSE 62; RESP 16
== END ==
LOC: ORWHC2ENDO 11:33
PROVIDERS: ATTEND Internal Medicine Gastroenterology
DX: K70.30 Alcoholic cirrhosis of liver without ascites (principal); K76.6 Portal hypertension; K31.89 Other diseases of stomach and duodenum; I85.10 Secondary esophageal varices without bleeding; F17.210 Nicotine dependence, cigarettes, uncomplicated; Z79.899 Other long term (current) drug therapy
CPT/HCPCS: 80053; 85025; 82105; 74018; 43244; J2001; J1170; J2704; 43255

== ENCOUNTER 2018-08-29 23:20 | Inpatient (IN) | payer OTHER ==
[2018-08-29] MEDS ORDERED: SODIUM CHLORIDE 0.9% 1,000 ML IV STA (23:29)
[2018-08-29] MEDS ORDERED: SODIUM CHLORIDE 0.9% 1,000 ML IV ONE (23:34)
[2018-08-29] MEDS ORDERED: MORPHINE SULFATE 4 MG/ML SYRINGE IVP STA (23:34)
[2018-08-29] MEDS ORDERED: IPRATROPIUM-ALBUTEROL 3 ML NEB INHALATION PRN (23:34)
[2018-08-29] MEDS ORDERED: IPRATROPIUM-ALBUTEROL 3 ML NEB INHALATION STA (23:34)
--- NOTE | 2018-08-29 23:37 | ED ---
Recheck HPI - General Chief Complaint: Recheck/Abnormal Lab/Rx Stated Complaint: Abnormal Labs Time Seen by Provider: 08/29/18 23:23 Source: patient, RN notes reviewed, old records reviewed Mode of arrival: ambulatory Limitations: no limitations - History of Present Illness Initial Comments: This is a 43-year-old male the ER for evaluation. Patient sent in due to abnormal lab tests, hemoglobin low. Multiple lab abnormalities including liver function studies. Patient was following up with Dr. Meza and evaluation of fall he had, patient during the fall did sustain rib fractures. Patient states he is still having severe pain and rib fractures. Denies any other complaints MD Complaint: abnormal lab (anemia) -: unknown Initial Visit For: other (fall w rib fracture) Returns Today for: Called Because of Abnormal Lab/Test Symptoms Since Prior Visit: worsening pain (rib fracture) Context: called for abnormal lab result Associated Symptoms: chest pain Treatments Prior to Arrival: other medications (pain medication) - Related Data Home Medications Medication Instructions Recorded Confirmed Folic Acid 1 mg PO DAILY@1200 09/01/17 08/30/18 Clarithromycin [Biaxin] 500 mg PO Q12HR 08/30/18 08/30/18 Cyclobenzaprine [Flexeril] 10 mg PO TID PRN 08/30/18 08/30/18 Propranolol [Inderal] 10 mg PO TID 08/30/18 08/30/18 Previous Rx's Medication Instructions Recorded Multivitamins, Thera [Multivitamin 1 tab PO DAILY #30 tablet 09/03/17 (formulary)] Thiamine [Vitamin B-1] 100 mg PO DAILY #30 tablet 09/03/17 Allergies Allergy/AdvReac Type Severity Reaction Status Date / Time No Known Allergies Allergy Verified 08/30/18 10:07 Review of Systems ROS Statement: Those systems with pertinent positive or pertinent negative responses have been documented in the HPI. ROS Other: All systems not noted in ROS Statement are negative. Past Medical History Past Medical History: Asthma, GI Bleed, Liver Disease, Pneumonia Additional Past Medical History / Comment(s): ETOH abuse, liver cirrhosis, abdominal ascites, pancreatitis, multiple gallstones, nephrolithiasis, chronic anemia, esophageal varices, hx urinating blood and kidneys stone History of Any Multi-Drug Resistant Organisms: MRSA Date of last positivie culture/infection: 12/09/2013 MDRO Source:: Right first finger Past Surgical History: Appendectomy, Cholecystectomy, Orthopedic Surgery Additional Past Surgical History / Comment(s): 07/09/17 EGD/colonoscopy, paracentesis, right hand tendon repair, right knee arthroscopy, cystoscopy for kidney stone removal, right hand ring finger surgery. Past Anesthesia/Blood Transfusion Reactions: Previous Problems w/ Anesthesia Additional Past Anesthesia/Blood Transfusion Reaction / Comment(s): Woke up during scope procedure. Past Psychological History: PTSD Smoking Status: Current every day smoker Past Alcohol Use History: Abuse, Daily Past Drug Use History: Marijuana - Past Family History Mother Family Medical History: Hypertension Father Additional Family Medical History / Comment(s): Prostate issues. Brain aneurysm. General Exam - General Exam Comments Initial Comments: pale, ajaundice Limitations: no limitations General appearance: alert, in no apparent distress Head exam: Present: atraumatic, normocephalic, normal inspection Eye exam: Present: normal appearance, PERRL, EOMI. Absent: scleral icterus, conjunctival injection, periorbital swelling ENT exam: Present: normal exam, mucous membranes moist Neck exam: Present: normal inspection. Absent: tenderness, meningismus, lymphadenopathy Respiratory exam: Present: normal lung sounds bilaterally. Absent: respiratory distress, wheezes, rales, rhonchi, stridor Cardiovascular Exam: Present: regular rate, normal rhythm, normal heart sounds. Absent: systolic murmur, diastolic murmur, rubs, gallop, clicks GI/Abdominal exam: Present: soft, normal bowel sounds. Absent: distended, tenderness, guarding, rebound, rigid Extremities exam: Present: normal inspection, full ROM, normal capillary refill. Absent: tenderness, pedal edema, joint swelling, calf tenderness Back exam: Present: normal inspection Neurological exam: Present: alert, oriented X3, CN II-XII intact Psychiatric exam: Present: normal affect, normal mood Skin exam: Present: warm, dry, intact, normal color. Absent: rash Course Vital Signs 08/29/18 08/29/18 08/30/18 23:21 23:41 00:00 Temperature 98.0 F Pulse Rate 113 H 110 H 101 H Respiratory 20 20 18 Rate Blood Pressure 128/59 108/68 108/68 O2 Sat by Pulse 100 100 Oximetry 08/30/18 08/30/18 08/30/18 00:26 00:28 00:35 Temperature Pulse Rate 101 H 102 H 101 H Respiratory 20 Rate Blood Pressure 108/68 O2 Sat by Pulse 100 Oximetry 08/30/18 08/30/18 00:48 01:00 Temperature Pulse Rate 101 H 98 Respiratory 20 11 L Rate Blood Pressure 114/55 114/55 O2 Sat by Pulse 99 100 Oximetry - Reevaluation(s) Reevaluation #1: 08/30/18 00:03 Record reviewed Reevaluation #2: 08/30/18 00:03 Patient without any significant improvement Medical Decision Making - Medical Decision Making 43 male the ER for evaluation of abnormal lab tests, anemia. Patient be admitted for transfusion, for monitoring of electrolyte abnormalities. - Lab Data Result diagrams: 08/29/18 23:48 08/29/18 23:48 - EKG Data -: EKG Interpreted by Me (EKG shows junctional rhythm, rate 105 QRS 80 QTc 452) - Radiology Data Radiology results: report reviewed (Chest x-rays negative for acute disease), image reviewed Disposition Clinical Impression: Liver disease due to alcohol, Dehydration, Macrocytic anemia, Cirrhosis Disposition: ADMITTED IP TO THIS HOSP Condition: Fair Is patient prescribed a controlled substance at d/c from ED?: No
[2018-08-30] MEDS ORDERED: LORazepam 2 MG/ML INJ IV PRN ×3 (00:06)
[2018-08-30] MEDS ORDERED: THIAMINE 100 MG/ML 2 ML VIAL IM STA (00:06)
[2018-08-30 00:19] LABS: Anisocytosis Marked; Hypochromasia Marked; MCH 29.3 pg (25.0-35.0); MCHC 30.8 g/dL (31.0-37.0); MCV 95.2 fL (80.0-100.0); Macrocytosis Moderate; Mean Platelet Volume 10.6; Platelet Count 138 k/uL (150-450); Poikilocytosis Slight; RBC 1.73 m/uL (4.30-5.90); RDW 24.4 % (11.5-15.5); WBC 12.5 k/uL (3.8-10.6)
[2018-08-30 00:20] LABS: ALT 29 U/L (21-72); AST 60 U/L (17-59); Acetaminophen <10.0 ug/mL; Alcohol <10 mg/dL; Alkaline Phosphatase 108 U/L (38-126); Anion Gap 9 mmol/L; Blood Urea Nitrogen 27 mg/dL (9-20); Calcium 8.6 mg/dL (8.4-10.2); Carbon Dioxide 18 mmol/L (22-30); Chloride 109 mmol/L (98-107); Glucose 101 mg/dL (74-99); Lipase 436 U/L (23-300); Magnesium 1.9 mg/dL (1.6-2.3); Phosphorus 4.4 mg/dL (2.5-4.5); Potassium 4.7 mmol/L (3.5-5.1); Sodium 136 mmol/L (137-145); Total Bilirubin 1.1 mg/dL (0.2-1.3); Total Protein 6.2 g/dL (6.3-8.2)
[2018-08-30 00:24] LABS: HCT 16.5 % (39.0-53.0); HGB 5.1 gm/dL (13.0-17.5)
[2018-08-30 00:28] LABS: Lactic Acid, Venous 2.8 mmol/L (0.7-2.0)
--- NOTE | 2018-08-30 00:38 | XR ---
EXAM: XR Chest, 2 Views CLINICAL HISTORY: ITS.REASON XR Reason: Weakness TECHNIQUE: Frontal and lateral views of the chest. COMPARISON: CT of 07/09/18. FINDINGS: Lungs: Pulmonary hyperexpansion. Some paraseptal emphysema was present on the CT scan. Increasing subsegmental basilar atelectasis. Pleural space: Unremarkable. No pneumothorax. Heart: Unremarkable. No cardiomegaly. Mediastinum: Unremarkable. Bones/joints: Unremarkable. IMPRESSION: Increasing basilar atelectasis. Redemonstrated emphysema
[2018-08-30 01:00] LABS: INR 1.2 (<1.2); Prothrombin Time 12.5 sec (9.0-12.0)
[2018-08-30 01:06] LABS: Eosinophils # (M) 0.63 k/uL (0-0.7); Monocytes # (M) 0.75 k/uL (0-1.0); Neutrophils # (M) 8.63 k/uL (1.3-7.7); Neutrophils % (M) 69 %; Nucleated Red Blood Cells 0 /100 WBC (0-0); Total Cells Counted 100
[2018-08-30 01:07] LABS: Polychromasia Present; Rouleaux Present
[2018-08-30] MEDS: MORPHINE SULFATE 4 MG/ML SYRINGE IVP PRN ×5 (03:30→20:20)
[2018-08-30] MEDS: THIAMINE 100 MG TAB PO SCH ×2 (07:50→15:59)
[2018-08-30] MEDS ORDERED: ENOXAPARIN 40 MG/0.4 ML SYRINGE SQ SCH (09:00)
[2018-08-30] MEDS ORDERED: PANTOPRAZOLE 40 MG/10 ML VIAL IVP SCH (09:15)
[2018-08-30 09:28] LABS: Glucose,Whole Blood 144 mg/dL (75-99)
[2018-08-30] MEDS ORDERED: LACTULOSE 20 GM/30 ML CUP PO ONE (09:45)
--- NOTE | 2018-08-30 10:30 | US ---
EXAMINATION TYPE: US abdomen limited DATE OF EXAM: 08/30/2018 COMPARISON: None CLINICAL HISTORY: please assess for fluid pocket. Ascites check, hx of paracentesis- last was 2 years ago Small amount of fluid seen in all four quadrants. Largest pocket was seen in RLQ. IMPRESSION: There is only a small amount of ascites.
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
--- NOTE | 2018-08-30 13:32 | P.GSCN ---
<Leilani Dickey - Last Filed: 08/30/18 13:30> History of Present Illness Consult date: 08/30/18 Reason for Consult: GI Bleed Requesting physician: James Meza Jr History of present illness: CHIEF COMPLAINT: GI bleed HISTORY OF PRESENT ILLNESS: 43-year-old male who presented to the emergency room secondary to abnormal labs completed on an outpatient basis. Apparently, patients hemoglobin was found to be 4.0 and was directed to the ER. Patient states at his last visit with Dr. Meza his hemoglobin was in the 7s. Reports chronic generalized abdominal pain. He states the abdominal pain is not worse than his baseline. Denies nausea or vomiting. Denies hematemesis or hematochezia. Reports dark stools over the past week. Patient underwent EGD with Dr. Huff on 07/08/2018 revealing large distal esophageal varices with ligation x 5 and portal hypertensive gastropathy. Hemoglobin last night was 5.1. He has received 1 unit RBC and second unit currently infusing. PAST MEDICAL HISTORY: See list. PAST SURGICAL HISTORY: See list. SOCIAL HISTORY: No illicit drug use. REVIEW OF SYSTEMS: CONSTITUTIONAL: Denies fever or chills. HEENT: Denies blurred vision, vision changes, or eye pain. Denies hemoptysis CARDIOVASCULAR: Denies chest pain or pressure. RESPIRATORY: No shortness of breath. GASTROINTESTINAL: Refer to HPI for pertinent findings HEMATOLOGIC: Denies bleeding disorders. GENITOURINARY: Denies any blood in urine. SKIN: Denies pruitis. Denies rash. PHYSICAL EXAM: VITAL SIGNS: Reviewed. GENERAL: Well-developed in no acute distress. HEENT: No sclera icterus. Extraocular movements grossly intact. Moist buccal mucosa. Head is atraumatic, normocephalic. ABDOMEN: Soft. Bloated. Positive bowel sounds. NEUROLOGIC: Alert and oriented. Cranial nerves II through XII grossly intact. ASSESSMENT: 1. GI bleed, hemoglobin 5.1 on admission, patient reports dark stools x 1 week 2. Acute blood loss anemia 3. ETOH abuse 4. Esophageal varices, s/p EGD 07/08/2018 revealing large distal esophageal varices with ligation x 5 5. Liver cirrhosis secondary to ETOH abuse 6. History of laparoscopic cholecystectomy, 06/24/2017 PLAN: 1. Continue Protonix 40mg IV BID 2. Diet per GI services. NPO after midnight 3. Patient scheduled for EGD/colonoscopy tomorrow with Dr. Harrington 4. No surgical intervention recommended at this time Nurse practitioner note has been reviewed by physician. Signing provider agrees with the documented findings, assessment, and plan of care. Past Medical History Past Medical History: Asthma, GI Bleed, Liver Disease, Pneumonia Additional Past Medical History / Comment(s): ETOH abuse, liver cirrhosis, abdominal ascites, pancreatitis, multiple gallstones, nephrolithiasis, chronic anemia, esophageal varices, hx urinating blood and kidneys stone History of Any Multi-Drug Resistant Organisms: MRSA Year Discovered:: 12/09/2013 MDRO Source:: Right first finger Past Surgical History: Appendectomy, Cholecystectomy, Orthopedic Surgery Additional Past Surgical History / Comment(s): 07/09/17 EGD/colonoscopy, paracentesis, right hand tendon repair, right knee arthroscopy, cystoscopy for kidney stone removal, right hand ring finger surgery. Past Anesthesia/Blood Transfusion Reactions: Previous Problems w/ Anesthesia Additional Past Anesthesia/Blood Transfusion Reaction / Comm: Woke up during scope procedure. Past Psychological History: PTSD Additional Psychological History / Comment(s): Pt lives in his apartment. His girlfriend and her son are usually there with him. He does not drive, he gets to appts by his girlfriend, family or bus. 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 Smoking Status: Current every day smoker Past Alcohol Use History: Abuse, Daily Additional Past Alcohol Use History / Comment(s): Pt states he started smoking in 1983 and is a ppd smoker. PT states reduced the amount of alcohol to a few days a week, drinking 2-3 drinks on those occasions. Pt states used to drink a fifth or 1/2 gallon and some beers daily. Past Drug Use History: Marijuana Additional Drug Use History / Comment(s): Pt states he smokes marijuana on occasion. No other drug use. - Past Family History Mother Family Medical History: Hypertension Father Additional Family Medical History / Comment(s): Prostate issues. Brain aneurysm. Medications and Allergies Home Medications Medication Instructions Recorded Confirmed Type Folic Acid 1 mg PO DAILY@1200 09/01/17 08/30/18 History Multivitamins, Thera [Multivitamin 1 tab PO DAILY #30 tablet 09/03/17 08/30/18 Rx (formulary)] Thiamine [Vitamin B-1] 100 mg PO DAILY #30 tablet 09/03/17 08/30/18 Rx Clarithromycin [Biaxin] 500 mg PO Q12HR 08/30/18 08/30/18 History Cyclobenzaprine [Flexeril] 10 mg PO TID PRN 08/30/18 08/30/18 History Propranolol [Inderal] 10 mg PO TID 08/30/18 08/30/18 History Allergies Allergy/AdvReac Type Severity Reaction Status Date / Time No Known Allergies Allergy Verified 08/30/18 10:07 Surgical - Exam Vital Signs Temp Pulse Resp BP Pulse Ox 98.0 F 113 H 20 128/59 100 08/29/18 23:21 08/29/18 23:21 08/29/18 23:21 08/29/18 23:21 08/29/18 23:21 Results - Labs 08/29/18 23:48 08/29/18 23:48 Abnormal Lab Results - Last 24 Hours (Table) 08/29/18 08/29/18 08/29/18 Range/Units 23:48 23:48 23:48 WBC (3.8-10.6) k/uL RBC (4.30-5.90) m/uL Hgb (13.0-17.5) gm/dL Hct (39.0-53.0) % MCHC (31.0-37.0) g/dL RDW (11.5-15.5) % Plt Count (150-450) k/uL Neutrophils # (Manual) (1.3-7.7) k/uL PT (9.0-12.0) sec INR (<1.2) Sodium 136 L (137-145) mmol/L Chloride 109 H (98-107) mmol/L Carbon Dioxide 18 L (22-30) mmol/L BUN 27 H (9-20) mg/dL Glucose 101 H (74-99) mg/dL POC Glucose (mg/dL) (75-99) mg/dL Plasma Lactic Acid Balaji 2.8 H* (0.7-2.0) mmol/L AST 60 H (17-59) U/L Ammonia 38 H (<30) umol/L Total Protein 6.2 L (6.3-8.2) g/dL Albumin 3.0 L (3.5-5.0) g/dL Lipase 436 H (23-300) U/L Crossmatch See Detail 08/29/18 08/30/18 08/30/18 Range/Units 23:48 00:40 09:27 WBC 12.5 H (3.8-10.6) k/uL RBC 1.73 L (4.30-5.90) m/uL Hgb 5.1 L* D (13.0-17.5) gm/dL Hct 16.5 L* (39.0-53.0) % MCHC 30.8 L (31.0-37.0) g/dL RDW 24.4 H (11.5-15.5) % Plt Count 138 L (150-450) k/uL Neutrophils # (Manual) 8.63 H (1.3-7.7) k/uL PT 12.5 H (9.0-12.0) sec INR 1.2 H (<1.2) Sodium (137-145) mmol/L Chloride (98-107) mmol/L Carbon Dioxide (22-30) mmol/L BUN (9-20) mg/dL Glucose (74-99) mg/dL POC Glucose (mg/dL) 144 H (75-99) mg/dL Plasma Lactic Acid Balaji (0.7-2.0) mmol/L AST (17-59) U/L Ammonia (<30) umol/L Total Protein (6.3-8.2) g/dL Albumin (3.5-5.0) g/dL Lipase (23-300) U/L Crossmatch Diabetes panel 08/29/18 Range/Units 23:48 Sodium 136 L (137-145) mmol/L Potassium 4.7 (3.5-5.1) mmol/L Chloride 109 H (98-107) mmol/L Carbon Dioxide 18 L (22-30) mmol/L BUN 27 H (9-20) mg/dL Creatinine 0.74 (0.66-1.25) mg/dL Glucose 101 H (74-99) mg/dL Calcium 8.6 (8.4-10.2) mg/dL AST 60 H (17-59) U/L ALT 29 (21-72) U/L Alkaline Phosphatase 108 (38-126) U/L Total Protein 6.2 L (6.3-8.2) g/dL Albumin 3.0 L (3.5-5.0) g/dL Calcium panel 08/29/18 Range/Units 23:48 Calcium 8.6 (8.4-10.2) mg/dL Phosphorus 4.4 (2.5-4.5) mg/dL Albumin 3.0 L (3.5-5.0) g/dL Pituitary panel 08/29/18 Range/Units 23:48 Sodium 136 L (137-145) mmol/L Potassium 4.7 (3.5-5.1) mmol/L Chloride 109 H (98-107) mmol/L Carbon Dioxide 18 L (22-30) mmol/L BUN 27 H (9-20) mg/dL Creatinine 0.74 (0.66-1.25) mg/dL Glucose 101 H (74-99) mg/dL Calcium 8.6 (8.4-10.2) mg/dL Adrenal panel 08/29/18 Range/Units 23:48 Sodium 136 L (137-145) mmol/L Potassium 4.7 (3.5-5.1) mmol/L Chloride 109 H (98-107) mmol/L Carbon Dioxide 18 L (22-30) mmol/L BUN 27 H (9-20) mg/dL Creatinine 0.74 (0.66-1.25) mg/dL Glucose 101 H (74-99) mg/dL Calcium 8.6 (8.4-10.2) mg/dL Total Bilirubin 1.1 (0.2-1.3) mg/dL AST 60 H (17-59) U/L ALT 29 (21-72) U/L Alkaline Phosphatase 108 (38-126) U/L Total Protein 6.2 L (6.3-8.2) g/dL Albumin 3.0 L (3.5-5.0) g/dL <Alexx Van - Last Filed: 08/30/18 18:42> History of Present Illness History of present illness: As above. Patient with esophageal varices secondary to alcohol-induced cirrhosis. Patient with melanotic stools. Suspect recurrent there is still bleed as the etiology for the patient's anemia. Await upper and lower endoscopy tomorrow. No general surgery intervention planned at this time. Surgical - Exam Vital Signs Temp Pulse Resp BP Pulse Ox 98.0 F 113 H 20 128/59 100 08/29/18 23:21 08/29/18 23:21 08/29/18 23:21 08/29/18 23:21 08/29/18 23:21 Results - Labs 08/30/18 17:25 08/29/18 23:48 Abnormal Lab Results - Last 24 Hours (Table) 08/29/18 08/29/18 08/29/18 Range/Units 23:48 23:48 23:48 WBC (3.8-10.6) k/uL RBC (4.30-5.90) m/uL Hgb (13.0-17.5) gm/dL Hct (39.0-53.0) % MCHC (31.0-37.0) g/dL RDW (11.5-15.5) % Plt Count (150-450) k/uL Neutrophils # (1.3-7.7) k/uL Neutrophils # (Manual) (1.3-7.7) k/uL Monocytes # (0-1.0) k/uL PT (9.0-12.0) sec INR (<1.2) Sodium 136 L (137-145) mmol/L Chloride 109 H (98-107) mmol/L Carbon Dioxide 18 L (22-30) mmol/L BUN 27 H (9-20) mg/dL Glucose 101 H (74-99) mg/dL POC Glucose (mg/dL) (75-99) mg/dL Plasma Lactic Acid Balaji 2.8 H* (0.7-2.0) mmol/L AST 60 H (17-59) U/L Ammonia 38 H (<30) umol/L Total Protein 6.2 L (6.3-8.2) g/dL Albumin 3.0 L (3.5-5.0) g/dL Lipase 436 H (23-300) U/L Crossmatch See Detail 08/29/18 08/30/18 08/30/18 Range/Units 23:48 00:40 09:27 WBC 12.5 H (3.8-10.6) k/uL RBC 1.73 L (4.30-5.90) m/uL Hgb 5.1 L* D (13.0-17.5) gm/dL Hct 16.5 L* (39.0-53.0) % MCHC 30.8 L (31.0-37.0) g/dL RDW 24.4 H (11.5-15.5) % Plt Count 138 L (150-450) k/uL Neutrophils # (1.3-7.7) k/uL Neutrophils # (Manual) 8.63 H (1.3-7.7) k/uL Monocytes # (0-1.0) k/uL PT 12.5 H (9.0-12.0) sec INR 1.2 H (<1.2) Sodium (137-145) mmol/L Chloride (98-107) mmol/L Carbon Dioxide (22-30) mmol/L BUN (9-20) mg/dL Glucose (74-99) mg/dL POC Glucose (mg/dL) 144 H (75-99) mg/dL Plasma Lactic Acid Balaji (0.7-2.0) mmol/L AST (17-59) U/L Ammonia (<30) umol/L Total Protein (6.3-8.2) g/dL Albumin (3.5-5.0) g/dL Lipase (23-300) U/L Crossmatch 08/30/18 Range/Units 17:25 WBC 14.7 H (3.8-10.6) k/uL RBC 2.07 L (4.30-5.90) m/uL Hgb 6.1 L* (13.0-17.5) gm/dL Hct 19.2 L* (39.0-53.0) % MCHC (31.0-37.0) g/dL RDW 22.4 H (11.5-15.5) % Plt Count (150-450) k/uL Neutrophils # 9.8 H (1.3-7.7) k/uL Neutrophils # (Manual) (1.3-7.7) k/uL Monocytes # 1.6 H (0-1.0) k/uL PT (9.0-12.0) sec INR (<1.2) Sodium (137-145) mmol/L Chloride (98-107) mmol/L Carbon Dioxide (22-30) mmol/L BUN (9-20) mg/dL Glucose (74-99) mg/dL POC Glucose (mg/dL) (75-99) mg/dL Plasma Lactic Acid Balaji (0.7-2.0) mmol/L AST (17-59) U/L Ammonia (<30) umol/L Total Protein (6.3-8.2) g/dL Albumin (3.5-5.0) g/dL Lipase (23-300) U/L Crossmatch Diabetes panel 08/29/18 Range/Units 23:48 Sodium 136 L (137-145) mmol/L Potassium 4.7 (3.5-5.1) mmol/L Chloride 109 H (98-107) mmol/L Carbon Dioxide 18 L (22-30) mmol/L BUN 27 H (9-20) mg/dL Creatinine 0.74 (0.66-1.25) mg/dL Glucose 101 H (74-99) mg/dL Calcium 8.6 (8.4-10.2) mg/dL AST 60 H (17-59) U/L ALT 29 (21-72) U/L Alkaline Phosphatase 108 (38-126) U/L Total Protein 6.2 L (6.3-8.2) g/dL Albumin 3.0 L (3.5-5.0) g/dL Calcium panel 08/29/18 Range/Units 23:48 Calcium 8.6 (8.4-10.2) mg/dL Phosphorus 4.4 (2.5-4.5) mg/dL Albumin 3.0 L (3.5-5.0) g/dL Pituitary panel 08/29/18 Range/Units 23:48 Sodium 136 L (137-145) mmol/L Potassium 4.7 (3.5-5.1) mmol/L Chloride 109 H (98-107) mmol/L Carbon Dioxide 18 L (22-30) mmol/L BUN 27 H (9-20) mg/dL Creatinine 0.74 (0.66-1.25) mg/dL Glucose 101 H (74-99) mg/dL Calcium 8.6 (8.4-10.2) mg/dL Adrenal panel 08/29/18 Range/Units 23:48 Sodium 136 L (137-145) mmol/L Potassium 4.7 (3.5-5.1) mmol/L Chloride 109 H (98-107) mmol/L Carbon Dioxide 18 L (22-30) mmol/L BUN 27 H (9-20) mg/dL Creatinine 0.74 (0.66-1.25) mg/dL Glucose 101 H (74-99) mg/dL Calcium 8.6 (8.4-10.2) mg/dL Total Bilirubin 1.1 (0.2-1.3) mg/dL AST 60 H (17-59) U/L ALT 29 (21-72) U/L Alkaline Phosphatase 108 (38-126) U/L Total Protein 6.2 L (6.3-8.2) g/dL Albumin 3.0 L (3.5-5.0) g/dL
[2018-08-30] MEDS ORDERED: BISACODYL 5 MG TABLET.DR PO STA (14:08)
[2018-08-30] MEDS ORDERED: PEG 3350-NA SULF,BICARB,CL/KCL 4,000 ML BOTTLE PO ONE (16:00)
[2018-08-30] MEDS: IPRATROPIUM-ALBUTEROL 3 ML NEB INHALATION SCH ×2 (16:15→20:26)
--- NOTE | 2018-08-30 17:54 | P.HPIM ---
History of Present Illness H&P Date: 08/30/18 Chief Complaint: Outpatient hemoglobin 4 This is a 43-year-old gentleman with history of alcohol liver cirrhosis, portal hypertension, ascites, esophageal varices-banded in June 2018, ongoing alcohol abuse, GI bleed, and multiple other medical issues. Outpatient chemistr ies reporting hemoglobin of 4, sent to the ER and admitted to the hospital. Patient reporting dark tarry stools 1 week, denies hemoptysis, coffee-ground emesis. States someone fell into his left rib cage; chest x-ray confirms 2 broken left-sided ribs. Hemoglobin currently 5.1; upon discharge in June 2018 hemoglobin 10.4. Platelets 138, INR 1.2. Lactic acid 2.8 on admission, now 1.1. Troponin negative. T bili 1.1, AST 60, ALT 29 alk phos 108, ammonia 38 amylase 56, lipase 436. Chest x-ray reporting emphysema, increasing bibasilar atelectasis. Alcohol level less than 10, acetaminophen level less than 10. Abdominal ultrasound reporting small ascites. Denies chest pain, palpitations or increasing shortness of breath. Denies lightheadedness dizziness or focal deficits. Complains of left-sided rib discomfort. Received IV fluid hydration and with packed rbc' initiated. Review of Systems Constitutional: Reports as per HPI Ears, nose, mouth and throat: Reports as per HPI Cardiovascular: Reports as per HPI Respiratory: Reports as per HPI Gastrointestinal: See HPI for pertinent findings Genitourinary: Reports as per HPI Musculoskeletal: Reports as per HPI Integumentary: Reports as per HPI Neurological: Reports as per HPI (Aggressive alcohol abuse) Psychiatric: Reports anxiety Endocrine: Reports as per HPI Past Medical History Past Medical History: Asthma, GI Bleed, Liver Disease, Pneumonia Additional Past Medical History / Comment(s): ETOH abuse, liver cirrhosis, abdominal ascites, pancreatitis, multiple gallstones, nephrolithiasis, chronic anemia, esophageal varices, hx urinating blood and kidneys stone History of Any Multi-Drug Resistant Organisms: MRSA Date of last positivie culture/infection: 12/09/2013 MDRO Source:: Right first finger Past Surgical History: Appendectomy, Cholecystectomy, Orthopedic Surgery Additional Past Surgical History / Comment(s): 07/09/17 EGD/colonoscopy, paracentesis, right hand tendon repair, right knee arthroscopy, cystoscopy for kidney stone removal, right hand ring finger surgery. Past Anesthesia/Blood Transfusion Reactions: Previous Problems w/ Anesthesia Additional Past Anesthesia/Blood Transfusion Reaction / Comment(s): Woke up during scope procedure. Past Psychological History: PTSD Additional Psychological History / Comment(s): Pt lives in his apartment. His girlfriend and her son are usually there with him. He does not drive, he gets to appts by his girlfriend, family or bus. 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 Smoking Status: Current every day smoker Past Alcohol Use History: Abuse, Daily Additional Past Alcohol Use History / Comment(s): Pt states he started smoking in 1983 and is a ppd smoker. PT states reduced the amount of alcohol to a few days a week, drinking 2-3 drinks on those occasions. Pt states used to drink a fifth or 1/2 gallon and some beers daily. Past Drug Use History: Marijuana Additional Drug Use History / Comment(s): Pt states he smokes marijuana on occasion. No other drug use. - Past Family History Mother Family Medical History: Hypertension Father Additional Family Medical History / Comment(s): Prostate issues. Brain aneurysm. Medications and Allergies Home Medications Medication Instructions Recorded Confirmed Type Folic Acid 1 mg PO DAILY@1200 09/01/17 08/30/18 History Multivitamins, Thera [Multivitamin 1 tab PO DAILY #30 tablet 09/03/17 08/30/18 Rx (formulary)] Thiamine [Vitamin B-1] 100 mg PO DAILY #30 tablet 09/03/17 08/30/18 Rx Clarithromycin [Biaxin] 500 mg PO Q12HR 08/30/18 08/30/18 History Cyclobenzaprine [Flexeril] 10 mg PO TID PRN 08/30/18 08/30/18 History Propranolol [Inderal] 10 mg PO TID 08/30/18 08/30/18 History Allergies Allergy/AdvReac Type Severity Reaction Status Date / Time No Known Allergies Allergy Verified 08/30/18 10:07 Physical Exam Vitals: Vital Signs Temp Pulse Pulse Resp BP BP Pulse Ox 08/30/18 08:47 98 F 86 14 115/69 98 08/30/18 08:37 97.8 F 91 14 103/60 99 08/30/18 08:31 14 120/68 04/16/19 06:18 98.4 F 91 18 126/69 99 08/30/18 04:08 98.4 F 101 H 18 112/67 99 08/30/18 03:38 98.2 F 103 H 18 124/70 98 08/30/18 03:28 98.6 F 100 16 122/71 08/30/18 03:23 98.3 F 96 16 115/70 08/30/18 02:14 97.7 F 100 20 146/70 100 08/30/18 00:48 101 H 20 114/55 99 08/30/18 00:35 101 H 08/30/18 00:28 102 H 08/30/18 00:26 101 H 20 108/68 100 08/29/18 23:21 98.0 F 113 H 20 128/59 100 Intake and Output 08/29/18 08/30/18 08/30/18 22:59 06:59 14:59 Intake Total 2159 0 Output Total 200 Balance 1959 0 Intake: Intake, IV Titration 1499 Amount Sodium Chloride 0.9% 1, 500 000 ml @ 100 mls/hr IV . Q10H ONE Rx#:[id number] Sodium Chloride 0.9% 1, 999 000 ml @ 999 mls/hr IV . Q1H1M STA Rx#:[id number] Oral 350 Blood Product 310 0 Rc Pheresis As-3 Unit 310 [id number] Rc Pheresis As-3 Unit 0 [id number] Output: Urine 200 Other: Voiding Method Toilet Weight 92.261 kg General: [Patient awake, alert and oriented times 3. Patient in no acute distress.] HEENT: [PERRL. EOMI. No pharyngeal erythema or exudate.] Neck: [No adenopathy.] Cardiac: [Heart regular in rate and rhythm. No S3. No S4. No clicks, rubs. No murmur.] Lungs: [Clear to auscultation bilaterally. No crackles, no wheezes, left-sided rib cage tenderness] Abdomen: [Soft, nontender, distended, minimal ascites .No mass. No organomegaly. No guarding, no rigidity Bowel sounds presnt and normoactive in all 4 quadrants.] Extremities: [No edema no cyanosis no claudication normal pulses] Musculoskeletal: [No joint erythema, edema or tenderness.] Skin: [No rash.] Neurologic: [No lateralizing deficits. CN II - XII grossly intact. No focal deficits.] Results CBC & Chem 7: 08/29/18 23:48 08/29/18 23:48 Labs: Abnormal Lab Results - Last 24 Hours (Table) 08/29/18 08/29/18 08/29/18 Range/Units 23:48 23:48 23:48 WBC (3.8-10.6) k/uL RBC (4.30-5.90) m/uL Hgb (13.0-17.5) gm/dL Hct (39.0-53.0) % MCHC (31.0-37.0) g/dL RDW (11.5-15.5) % Plt Count (150-450) k/uL Neutrophils # (Manual) (1.3-7.7) k/uL PT (9.0-12.0) sec INR (<1.2) Sodium 136 L (137-145) mmol/L Chloride 109 H (98-107) mmol/L Carbon Dioxide 18 L (22-30) mmol/L BUN 27 H (9-20) mg/dL Glucose 101 H (74-99) mg/dL Plasma Lactic Acid Balaji 2.8 H* (0.7-2.0) mmol/L AST 60 H (17-59) U/L Ammonia 38 H (<30) umol/L Total Protein 6.2 L (6.3-8.2) g/dL Albumin 3.0 L (3.5-5.0) g/dL Lipase 436 H (23-300) U/L Crossmatch See Detail 08/29/18 08/30/18 Range/Units 23:48 00:40 WBC 12.5 H (3.8-10.6) k/uL RBC 1.73 L (4.30-5.90) m/uL Hgb 5.1 L* D (13.0-17.5) gm/dL Hct 16.5 L* (39.0-53.0) % MCHC 30.8 L (31.0-37.0) g/dL RDW 24.4 H (11.5-15.5) % Plt Count 138 L (150-450) k/uL Neutrophils # (Manual) 8.63 H (1.3-7.7) k/uL PT 12.5 H (9.0-12.0) sec INR 1.2 H (<1.2) Sodium (137-145) mmol/L Chloride (98-107) mmol/L Carbon Dioxide (22-30) mmol/L BUN (9-20) mg/dL Glucose (74-99) mg/dL Plasma Lactic Acid Balaji (0.7-2.0) mmol/L AST (17-59) U/L Ammonia (<30) umol/L Total Protein (6.3-8.2) g/dL Albumin (3.5-5.0) g/dL Lipase (23-300) U/L Crossmatch Thrombosis Risk Factor Assmnt - Choose All That Apply Each Factor Represents 1 point: Age 41-60 years, Obesity (BMI >25), Varicose veins Other Risk Factors: Yes Thrombosis Risk Factor Assessment Total Risk Factor Score: 3 Thrombosis Risk Factor Assessment Level: Moderate Risk Assessment and Plan Assessment: -Acute on chronic blood loss anemia secondary to Acute GI bleed, in a patient with history of esophageal varices with banding, portal hypertension, cirrhosis, ongoing alcohol abuse, reporting a week of melanotic stools. -Esophageal varices, recent banding 07/05 -Ongoing EtOH abuse, reports a 6 pack of beer per week -Portal hypertension -Alcohol liver Cirrhosis -Ascites, minimal per ultrasound -Left-sided rib fractures secondary to trauma -Ongoing nicotine dependence -Chronic pancreatitis -Nephrolithiasis - Plan: Continue on current medication regime , lactulose, monitoring and symptomatic treatment. Transfer to ICU. DC Lovenox. Transfuse second unit of packed RBCs. IV PPI as ordered. 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 EGD/ Colonscopyas per GI. Prophylactic Rocephin. Aggressive pulmonary toileting with incentive spirometer ordered. Serial CBCs, ammonia level with repeat labs ordered. Pain control. Continue CIWA protocol, monitor for DTs. Alcohol cessation readdressed. Prognosis guarded given multiple complex medical issues. The impression and plan of care has been dictated as directed. : I performed a history and examination of this patient, discussed the same with the dictator. I agree with the dictator's note ,documented as a scribe. Any additional findings or plans will be noted.
[2018-08-30 17:58] LABS: Anisocytosis Moderate; Basophils # (A) 0.2 k/uL (0-0.2); Basophils % (A) 1 %; Eosinophils # (A) 0.7 k/uL (0-0.7); Eosinophils % (A) 5 %; Hypochromasia Marked; Lymphocytes # (A) 1.9 k/uL (1.0-4.8); Lymphocytes % (A) 13 %; MCH 29.7 pg (25.0-35.0); MCV 92.6 fL (80.0-100.0); Macrocytosis Slight; Mean Platelet Volume 8.9; Monocytes # (A) 1.6 k/uL (0-1.0); Monocytes % (A) 11 %; Neutrophils # (A) 9.8 k/uL (1.3-7.7); Neutrophils % (A) 67 %; Platelet Count 211 k/uL (150-450); Poikilocytosis Slight; RBC 2.07 m/uL (4.30-5.90); RDW 22.4 % (11.5-15.5); WBC 14.7 k/uL (3.8-10.6)
[2018-08-30 18:00] LABS: HCT 19.2 % (39.0-53.0); HGB 6.1 gm/dL (13.0-17.5)
[2018-08-30] MEDS: PANTOPRAZOLE 40 MG/10 ML VIAL IVP SCH (20:20)
[2018-08-30 22:28] LABS: Appearance,Urine Clear (Clear); Bilirubin,Urine Negative (Negative); Blood,Urine Small (Negative); Color,Urine Yellow; Glucose,Urine (UA) Negative (Negative); Ketones,Urine Negative (Negative); Leukocyte Esterase,Urine Negative (Negative); Nitrite,Urine Negative (Negative); PH, Urine 5.5 (5.0-8.0); Protein,Urine Negative (Negative); RBC,Urine 21 /hpf (0-5); Specific Gravity,Urine 1.017 (1.001-1.035)
[2018-08-31] MEDS: MORPHINE SULFATE 4 MG/ML SYRINGE IVP PRN ×6 (00:12→21:14)
[2018-08-31] MEDS: LACTATED RINGERS 1,000 ML IV SCH ×2 (01:15→23:12)
[2018-08-31 05:14] LABS: ALT 37 U/L (21-72); AST 48 U/L (17-59); Albumin 2.5 g/dL (3.5-5.0); Alkaline Phosphatase 94 U/L (38-126); Anion Gap 5 mmol/L; Blood Urea Nitrogen 19 mg/dL (9-20); Calcium 7.7 mg/dL (8.4-10.2); Carbon Dioxide 21 mmol/L (22-30); Chloride 106 mmol/L (98-107); Glucose 103 mg/dL (74-99); Potassium 3.9 mmol/L (3.5-5.1); Sodium 132 mmol/L (137-145); Total Bilirubin 2.1 mg/dL (0.2-1.3); Total Protein 5.2 g/dL (6.3-8.2)
[2018-08-31 05:28] LABS: Anisocytosis Moderate; Basophils # (A) 0.1 k/uL (0-0.2); Basophils % (A) 1 %; Eosinophils # (A) 0.2 k/uL (0-0.7); Eosinophils % (A) 1 %; HCT 20.5 % (39.0-53.0); Hypochromasia Moderate; Lymphocytes # (A) 1.3 k/uL (1.0-4.8); Lymphocytes % (A) 7 %; MCHC 32.2 g/dL (31.0-37.0); MCV 90.4 fL (80.0-100.0); Macrocytosis Slight; Mean Platelet Volume 8.8; Monocytes # (A) 1.9 k/uL (0-1.0); Monocytes % (A) 10 %; Neutrophils # (A) 15.9 k/uL (1.3-7.7); Neutrophils % (A) 79 %; Platelet Count 171 k/uL (150-450); Poikilocytosis Slight; RBC 2.26 m/uL (4.30-5.90); RDW 21.1 % (11.5-15.5); WBC 20.1 k/uL (3.8-10.6)
[2018-08-31 05:37] LABS: HGB 6.6 gm/dL (13.0-17.5)
[2018-08-31] MEDS: IPRATROPIUM-ALBUTEROL 3 ML NEB INHALATION SCH ×5 (07:34→19:36)
[2018-08-31] MEDS: PANTOPRAZOLE 40 MG/10 ML VIAL IVP SCH ×2 (08:41→19:56)
--- NOTE | 2018-08-31 08:52 | XR ---
EXAMINATION TYPE: XR chest 1V portable DATE OF EXAM: 08/31/2018 COMPARISON: 08/30/2018 HISTORY: Abnormal x-ray TECHNIQUE: Single frontal view of the chest is obtained. FINDINGS: There is subsegmental consolidation at both lung bases. Mild hyperinflation. No pneumothor ax. Heart is mildly prominent. No overt failure. 5 mm nodule left upper lobe. IMPRESSION: 1. Stable basilar atelectasis or infiltrate. 2. There is a 5 mm left upper lobe pulmonary nodule.
[2018-08-31] MEDS ORDERED: LIDOCAINE 1% INJ 10MG/ML (20 ML MDV) ONE (10:00)
[2018-08-31] MEDS ORDERED: fentaNYL (PF) 50 MCG/ML 2 ML AMP ONE (10:00)
[2018-08-31] MEDS ORDERED: PROPOFOL 10 MG/ML 20 ML VIAL IV ONE (10:00)
[2018-08-31] MEDS ORDERED: MIDAZOLAM 2 MG/2 ML VIAL ONE (10:00)
[2018-08-31] MEDS ORDERED: IV FLUID CONTINUATION 1,000 ML IV ONE (10:02)
--- NOTE | 2018-08-31 10:23 | P.PN ---
<Leilani Dickey Jesus - Last Filed: 08/31/18 10:20> Subjective Progress Note Date: 08/31/18 CHIEF COMPLAINT: GI bleed HISTORY OF PRESENT ILLNESS: Patient examined at the bedside. Completed bowel prep overnight. Reports continued melanotic stools this morning. Hemoglobin 6.6. Patient is to receive a unit of packed cells this morning, for a total of 5 units RBCs PHYSICAL EXAM: VITAL SIGNS: Reviewed. GENERAL: Well-developed in no acute distress. HEENT: No sclera icterus. Extraocular movements grossly intact. Moist buccal mucosa. Head is atraumatic, normocephalic. ABDOMEN: Soft. Bloated. Positive bowel sounds. Tenderness upon palpation of right lower quadrant. NEUROLOGIC: Alert and oriented. Cranial nerves II through XII grossly intact. ASSESSMENT: 1. GI bleed, hemoglobin 5.1 on admission, patient reports melanotic stools x 1 week, likely secondary to esophageal varices 2. Acute blood loss anemia 3. ETOH abuse 4. Esophageal varices, s/p EGD 07/08/2018 revealing large distal esophageal varices with ligation x 5 5. Liver cirrhosis secondary to ETOH abuse 6. History of laparoscopic cholecystectomy, 06/24/2017 PLAN: 1. Continue Protonix 40mg IV BID 2. Diet per GI services. NPO for endo today 3. Patient scheduled for EGD/colonoscopy today with Dr. Harrington. 4. Further recommendations pending patient course Nurse practitioner note has been reviewed by physician. Signing provider agrees with the documented findings, assessment, and plan of care. Objective - Vital Signs Vital signs: Vital Signs Temp 99.5 F 08/31/18 04:00 Pulse 101 H 08/31/18 07:00 Resp 20 08/31/18 07:00 BP 143/74 08/31/18 07:00 Pulse Ox 92 L 08/31/18 07:00 Intake & Output 08/30/18 08/31/18 08/31/18 18:59 06:59 18:59 Intake Total 3770 2320 20 Output Total 601 0 0 Balance 3169 2320 20 Weight 98.8 kg Intake: Intake, IV Titration 50 120 20 Amount Lactated Ringers 1,000 ml 120 20 @ 20 mls/hr IV .Q24H [facility] Rx#:[id number] cefTRIAXone 1 gm In 50 Sodium Chloride 0.9% 50 ml @ 100 mls/hr IVPB Q24H [facility] Rx#:[id number] Oral 3100 960 Blood Product 620 1240 Rc As-1 Unit 310 [id number] Rc Pheresis 2 As3 Unit 310 [id number] Rc Pheresis As-3 Unit 310 [id number] Output: Urine 600 0 0 Stool 1 Other: Voiding Method Toilet Toilet # Voids 1 1 # Bowel Movements 1 - Labs CBC & Chem 7: 08/31/18 04:39 08/31/18 04:39 Labs: Abnormal Lab Results - Last 24 Hours (Table) 08/29/18 08/30/18 08/30/18 Range/Units 23:48 17:25 22:10 WBC 14.7 H (3.8-10.6) k/uL RBC 2.07 L (4.30-5.90) m/uL Hgb 6.1 L* (13.0-17.5) gm/dL Hct 19.2 L* (39.0-53.0) % RDW 22.4 H (11.5-15.5) % Neutrophils # 9.8 H (1.3-7.7) k/uL Monocytes # 1.6 H (0-1.0) k/uL Sodium (137-145) mmol/L Carbon Dioxide (22-30) mmol/L Glucose (74-99) mg/dL Calcium (8.4-10.2) mg/dL Total Bilirubin (0.2-1.3) mg/dL Total Protein (6.3-8.2) g/dL Albumin (3.5-5.0) g/dL Urine Blood Small H (Negative) Urine RBC 21 H (0-5) /hpf Urine WBC 6 H (0-5) /hpf Crossmatch See Detail 08/31/18 08/31/18 Range/Units 04:39 04:39 WBC 20.1 H (3.8-10.6) k/uL RBC 2.26 L (4.30-5.90) m/uL Hgb 6.6 L* (13.0-17.5) gm/dL Hct 20.5 L (39.0-53.0) % RDW 21.1 H (11.5-15.5) % Neutrophils # 15.9 H (1.3-7.7) k/uL Monocytes # 1.9 H (0-1.0) k/uL Sodium 132 L (137-145) mmol/L Carbon Dioxide 21 L (22-30) mmol/L Glucose 103 H (74-99) mg/dL Calcium 7.7 L (8.4-10.2) mg/dL Total Bilirubin 2.1 H (0.2-1.3) mg/dL Total Protein 5.2 L (6.3-8.2) g/dL Albumin 2.5 L (3.5-5.0) g/dL Urine Blood (Negative) Urine RBC (0-5) /hpf Urine WBC (0-5) /hpf Crossmatch <Alexx Van - Last Filed: 08/31/18 20:25> Subjective As above. Patient doing better today. Upper endoscopy resulted in more variceal banding. No ulcer source of bleeding. We'll sign off. Please call if needed. Objective - Vital Signs Vital signs: Vital Signs Temp 99.1 F 08/31/18 20:00 Pulse 92 08/31/18 20:00 Resp 16 08/31/18 20:00 BP 115/67 08/31/18 20:00 Pulse Ox 95 08/31/18 20:00 Intake & Output 08/31/18 08/31/18 09/01/18 06:59 18:59 06:59 Intake Total 2320 855.0 515.0 Output Total 0 1 0 Balance 2320 854.0 515.0 Weight 98.8 kg Intake: IV 525.0 35.0 .9 10 Lactated Ringers 1,000 ml 100 @ 20 mls/hr IV .Q24H [facility] Rx#:[id number] Octreotide 500 mcg In 75.0 25.0 Sodium Chloride 0.9% 250 ml @ 25 MCG/HR 12.5 mls/ hr IV .Q20H [facility] Rx#: [id number] Intake, IV Titration 120 20 Amount Lactated Ringers 1,000 ml 120 20 @ 20 mls/hr IV .Q24H [facility] Rx#:[id number] Oral 960 480 Blood Product 1240 310 Rc As-1 Unit 310 [id number] Rc Pheresis 2 As3 Unit 310 [id number] Rc Pheresis As-3 Unit 310 [id number] Output: Urine 0 0 0 Stool 1 Other: Voiding Method Toilet Toilet # Voids 1 1 # Bowel Movements 1 1 - Labs CBC & Chem 7: 08/31/18 14:56 08/31/18 04:39 Labs: Abnormal Lab Results - Last 24 Hours (Table) 08/29/18 08/30/18 08/31/18 Range/Units 23:48 22:10 04:39 WBC 20.1 H (3.8-10.6) k/uL RBC 2.26 L (4.30-5.90) m/uL Hgb 6.6 L* (13.0-17.5) gm/dL Hct 20.5 L (39.0-53.0) % RDW 21.1 H (11.5-15.5) % Plt Count (150-450) k/uL Neutrophils # 15.9 H (1.3-7.7) k/uL Monocytes # 1.9 H (0-1.0) k/uL Sodium (137-145) mmol/L Carbon Dioxide (22-30) mmol/L Glucose (74-99) mg/dL Calcium (8.4-10.2) mg/dL Total Bilirubin (0.2-1.3) mg/dL Total Protein (6.3-8.2) g/dL Albumin (3.5-5.0) g/dL Urine Blood Small H (Negative) Urine RBC 21 H (0-5) /hpf Urine WBC 6 H (0-5) /hpf Crossmatch See Detail 08/31/18 08/31/18 Range/Units 04:39 14:56 WBC 21.5 H (3.8-10.6) k/uL RBC 2.59 L (4.30-5.90) m/uL Hgb 7.6 L (13.0-17.5) gm/dL Hct 23.2 L (39.0-53.0) % RDW 20.5 H (11.5-15.5) % Plt Count 142 L (150-450) k/uL Neutrophils # (1.3-7.7) k/uL Monocytes # (0-1.0) k/uL Sodium 132 L (137-145) mmol/L Carbon Dioxide 21 L (22-30) mmol/L Glucose 103 H (74-99) mg/dL Calcium 7.7 L (8.4-10.2) mg/dL Total Bilirubin 2.1 H (0.2-1.3) mg/dL Total Protein 5.2 L (6.3-8.2) g/dL Albumin 2.5 L (3.5-5.0) g/dL Urine Blood (Negative) Urine RBC (0-5) /hpf Urine WBC (0-5) /hpf Crossmatch
[2018-08-31] MEDS: LACTULOSE 20 GM/30 ML CUP PO SCH (10:47)
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
[2018-08-31] MEDS: THIAMINE 100 MG TAB PO SCH ×2 (11:56→16:54)
[2018-08-31] MEDS: OCTREOTIDE 500 MCG in SODIUM CHLORIDE 0.9% 250 ML IV SCH (11:57)
[2018-08-31] MEDS ORDERED: LACTULOSE 20 GM/30 ML CUP PO ONE (12:30)
[2018-08-31 15:12] LABS: Anisocytosis Moderate; HCT 23.2 % (39.0-53.0); HGB 7.6 gm/dL (13.0-17.5); Hypochromasia Slight; MCH 29.4 pg (25.0-35.0); MCHC 32.7 g/dL (31.0-37.0); MCV 89.7 fL (80.0-100.0); Macrocytosis Slight; Mean Platelet Volume 8.9; Platelet Count 142 k/uL (150-450); Poikilocytosis Moderate; RBC 2.59 m/uL (4.30-5.90); RDW 20.5 % (11.5-15.5); WBC 21.5 k/uL (3.8-10.6)
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
[2018-08-31 22:09] LABS: Anisocytosis Moderate; Basophils # (A) 0.1 k/uL (0-0.2); Basophils % (A) 0 %; Eosinophils # (A) 0.4 k/uL (0-0.7); Eosinophils % (A) 2 %; HCT 22.8 % (39.0-53.0); HGB 7.5 gm/dL (13.0-17.5); Hypochromasia Moderate; Lymphocytes # (A) 1.1 k/uL (1.0-4.8); Lymphocytes % (A) 6 %; MCH 29.5 pg (25.0-35.0); MCV 89.4 fL (80.0-100.0); Mean Platelet Volume 9.1; Monocytes # (A) 1.8 k/uL (0-1.0); Monocytes % (A) 10 %; Neutrophils # (A) 13.2 k/uL (1.3-7.7); Neutrophils % (A) 77 %; Platelet Count 136 k/uL (150-450); Poikilocytosis Moderate; RBC 2.55 m/uL (4.30-5.90); RDW 20.3 % (11.5-15.5); WBC 17.2 k/uL (3.8-10.6)
[2018-08-31] MEDS ORDERED: NICOTINE 14MG/24HR PATCH TRANSDERM SCH (23:30)
[2018-09-01] MEDS: MORPHINE SULFATE 4 MG/ML SYRINGE IVP PRN ×6 (01:46→22:50)
[2018-09-01 06:06] LABS: Anisocytosis Slight; Basophils # (A) 0.1 k/uL (0-0.2); Basophils % (A) 0 %; Eosinophils # (A) 0.4 k/uL (0-0.7); Eosinophils % (A) 3 %; HCT 22.7 % (39.0-53.0); HGB 7.3 gm/dL (13.0-17.5); Hypochromasia Moderate; Lymphocytes # (A) 1.2 k/uL (1.0-4.8); Lymphocytes % (A) 9 %; MCH 28.8 pg (25.0-35.0); MCHC 32.2 g/dL (31.0-37.0); MCV 89.4 fL (80.0-100.0); Mean Platelet Volume 8.8; Monocytes # (A) 1.6 k/uL (0-1.0); Monocytes % (A) 11 %; Neutrophils # (A) 10.8 k/uL (1.3-7.7); Neutrophils % (A) 74 %; Platelet Count 128 k/uL (150-450); Poikilocytosis Moderate; RBC 2.54 m/uL (4.30-5.90); RDW 19.8 % (11.5-15.5); WBC 14.5 k/uL (3.8-10.6)
[2018-09-01 06:31] LABS: ALT 35 U/L (21-72); AST 53 U/L (17-59); Albumin 2.4 g/dL (3.5-5.0); Alkaline Phosphatase 89 U/L (38-126); Anion Gap 6 mmol/L; Blood Urea Nitrogen 14 mg/dL (9-20); Calcium 7.5 mg/dL (8.4-10.2); Carbon Dioxide 20 mmol/L (22-30); Chloride 105 mmol/L (98-107); Glucose 114 mg/dL (74-99); Magnesium 1.9 mg/dL (1.6-2.3); Phosphorus 2.8 mg/dL (2.5-4.5); Potassium 3.7 mmol/L (3.5-5.1); Sodium 131 mmol/L (137-145); Total Bilirubin 1.6 mg/dL (0.2-1.3)
[2018-09-01] MEDS ORDERED: Potassium Replacement Protocol 1 EACH MISC MISCELLANE PRN (06:35)
[2018-09-01] MEDS ORDERED: Magnesium Replacement Protocol 1 EACH MISC MISCELLANE PRN (06:37)
[2018-09-01] MEDS: OCTREOTIDE 500 MCG in SODIUM CHLORIDE 0.9% 250 ML IV SCH (06:50)
[2018-09-01] MEDS: MAGNESIUM SULFATE-D5W PMX 1 GM in DEXTROSE/WATER 1 100ML.BAG IVPB SCH ×2 (06:51→08:05)
[2018-09-01] MEDS ORDERED: POTASSIUM CHLORIDE ER 20 MEQ TAB.ER PO SCH (07:00)
[2018-09-01] MEDS: LACTULOSE 20 GM/30 ML CUP PO SCH (08:06)
[2018-09-01] MEDS: PANTOPRAZOLE 40 MG/10 ML VIAL IVP SCH ×2 (08:07→21:51)
[2018-09-01] MEDS: IPRATROPIUM-ALBUTEROL 3 ML NEB INHALATION SCH ×4 (08:08→20:24)
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
[2018-09-01] MEDS: THIAMINE 100 MG TAB PO SCH ×2 (12:48→16:20)
--- NOTE | 2018-09-01 13:14 | P.PN ---
Subjective Progress Note Date: 09/01/18 Principal diagnosis: GI bleed Status post EGD incomplete colonoscopy with variceal banding for acute GI bleed melena. Colonoscopy incomplete secondary to poor prep. No further bleeding. Tolerating clear liquids. Hemoglobin 7.3. Platelet 128. BUN 14. Creatinine 0.6. White count 14.5. Objective - Vital Signs Vital signs: Vital Signs Temp 98.9 F 09/01/18 12:00 Pulse 88 09/01/18 12:00 Resp 14 09/01/18 12:00 BP 109/67 09/01/18 12:00 Pulse Ox 95 09/01/18 12:00 Intake & Output 08/31/18 09/01/18 09/01/18 18:59 06:59 18:59 Intake Total 855.0 1936.042 75.0 Output Total 1 0 0 Balance 854.0 1936.042 75.0 Weight 99.7 kg Intake: IV 525.0 260.0 75.0 .9 110 Lactated Ringers 1,000 ml 100 @ 20 mls/hr IV .Q24H [facility] Rx#:[id number] Octreotide 500 mcg In 75.0 150.0 75.0 Sodium Chloride 0.9% 250 ml @ 25 MCG/HR 12.5 mls/ hr IV .Q20H [facility] Rx#: [id number] Intake, IV Titration 20 236.042 Amount Lactated Ringers 1,000 ml 20 @ 20 mls/hr IV .Q24H [facility] Rx#:[id number] Octreotide 500 mcg In 236.042 Sodium Chloride 0.9% 250 ml @ 25 MCG/HR 12.5 mls/ hr IV .Q20H [facility] Rx#: [id number] Oral 1440 Blood Product 310 Rc Pheresis As-3 Unit 310 [id number] Output: Urine 0 0 0 Stool 1 Other: Voiding Method Toilet Toilet Toilet # Voids 1 1 1 # Bowel Movements 1 1 - Exam General appearance: The patient is alert, oriented, in no acute distress. HET: Head is normocephalic and atraumatic. Pupils are equal and reactive. Oropharynx is clear without lesions. Neck: Supple without lymphadenopathy. Trachea midline. Heart: S1 S2. Regular rate and rhythm. Lungs: No crackles or wheezes are heard. Abdomen: Soft, nontender mildly distended minimal ascites with bowel sounds. No peritoneal signs. No palpable organomegaly or masses. Extremities: Normal skin color and turgor. No cyanosis, rash, ulceration, clubbing, or edema. Radial and pedal pulses are 2/4 bilaterally. Neurological: No focal deficits. Strength and sensation are grossly intact. - Labs CBC & Chem 7: 09/01/18 04:58 09/01/18 04:58 Labs: Abnormal Lab Results - Last 24 Hours (Table) 08/31/18 08/31/18 09/01/18 Range/Units 14:56 21:57 04:58 WBC 21.5 H 17.2 H 14.5 H (3.8-10.6) k/uL RBC 2.59 L 2.55 L 2.54 L (4.30-5.90) m/uL Hgb 7.6 L 7.5 L 7.3 L (13.0-17.5) gm/dL Hct 23.2 L 22.8 L 22.7 L (39.0-53.0) % RDW 20.5 H 20.3 H 19.8 H (11.5-15.5) % Plt Count 142 L 136 L 128 L (150-450) k/uL Neutrophils # 13.2 H 10.8 H (1.3-7.7) k/uL Monocytes # 1.8 H 1.6 H (0-1.0) k/uL Sodium (137-145) mmol/L Carbon Dioxide (22-30) mmol/L Creatinine (0.66-1.25) mg/dL Glucose (74-99) mg/dL Calcium (8.4-10.2) mg/dL Total Bilirubin (0.2-1.3) mg/dL Ammonia (<30) umol/L Total Protein (6.3-8.2) g/dL Albumin (3.5-5.0) g/dL 09/01/18 09/01/18 Range/Units 04:58 04:58 WBC (3.8-10.6) k/uL RBC (4.30-5.90) m/uL Hgb (13.0-17.5) gm/dL Hct (39.0-53.0) % RDW (11.5-15.5) % Plt Count (150-450) k/uL Neutrophils # (1.3-7.7) k/uL Monocytes # (0-1.0) k/uL Sodium 131 L (137-145) mmol/L Carbon Dioxide 20 L (22-30) mmol/L Creatinine 0.61 L (0.66-1.25) mg/dL Glucose 114 H (74-99) mg/dL Calcium 7.5 L (8.4-10.2) mg/dL Total Bilirubin 1.6 H (0.2-1.3) mg/dL Ammonia 67 H (<30) umol/L Total Protein 5.0 L (6.3-8.2) g/dL Albumin 2.4 L (3.5-5.0) g/dL Assessment and Plan (1) GI bleed Narrative/Plan: Acute upper GI bleed secondary to esophageal varices status post banding. Incomplete colonoscopy due to poor prep. Current Visit: Yes Status: Acute Code(s): K92.2 - GASTROINTESTINAL HEMORRHAGE, UNSPECIFIED SNOMED Code(s): 83649034 (2) ETOH abuse Current Visit: Yes Status: Acute Code(s): F10.10 - ALCOHOL ABUSE, UNCOMPLICATED SNOMED Code(s): 72611905 (3) Esophageal varices Current Visit: Yes Status: Acute Code(s): I85.00 - ESOPHAGEAL VARICES WITHOUT BLEEDING SNOMED Code(s): 55906859 (4) Portal hypertension Current Visit: Yes Status: Acute Code(s): K76.6 - PORTAL HYPERTENSION SNOMED Code(s): 67716088 (5) Cirrhosis Current Visit: Yes Status: Acute Code(s): K74.60 - UNSPECIFIED CIRRHOSIS OF LIVER SNOMED Code(s): 73251575 Plan: 1. Will advance to low residue diet. CBC monitoring. Inderal 10 mg 3 times a day. Protonix 40 mg twice daily. Assessment and plan a care discussed with Dr. Harrington
[2018-09-01] MEDS ORDERED: MAGNESIUM HYDROXIDE 2,400 MG/10 ML CUP PO PRN (16:13)
[2018-09-01] MEDS: PROPRANOLOL 10 MG TAB PO SCH ×2 (16:20→21:51)
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
[2018-09-01] MEDS: NICOTINE 14MG/24HR PATCH TRANSDERM SCH (21:51)
[2018-09-01] MEDS: LACTATED RINGERS 1,000 ML IV SCH (21:52)
[2018-09-02] MEDS: OCTREOTIDE 500 MCG in SODIUM CHLORIDE 0.9% 250 ML IV SCH (02:13)
[2018-09-02] MEDS: MORPHINE SULFATE 4 MG/ML SYRINGE IVP PRN ×5 (03:18→21:00)
[2018-09-02 06:47] LABS: Anisocytosis Slight; Basophils # (A) 0.1 k/uL (0-0.2); Basophils % (A) 1 %; Eosinophils # (A) 0.5 k/uL (0-0.7); Eosinophils % (A) 4 %; HCT 23.8 % (39.0-53.0); HGB 7.4 gm/dL (13.0-17.5); Hypochromasia Moderate; Lymphocytes # (A) 1.1 k/uL (1.0-4.8); Lymphocytes % (A) 8 %; MCH 28.5 pg (25.0-35.0); MCHC 31.3 g/dL (31.0-37.0); MCV 91.2 fL (80.0-100.0); Mean Platelet Volume 9.2; Monocytes # (A) 1.6 k/uL (0-1.0); Monocytes % (A) 11 %; Neutrophils # (A) 10.3 k/uL (1.3-7.7); Neutrophils % (A) 73 %; Platelet Count 170 k/uL (150-450); Poikilocytosis Slight; RBC 2.61 m/uL (4.30-5.90); RDW 19.1 % (11.5-15.5); WBC 14.1 k/uL (3.8-10.6)
[2018-09-02 06:59] LABS: ALT 34 U/L (21-72); AST 51 U/L (17-59); Albumin 2.4 g/dL (3.5-5.0); Alkaline Phosphatase 97 U/L (38-126); Anion Gap 7 mmol/L; Blood Urea Nitrogen 11 mg/dL (9-20); Calcium 7.3 mg/dL (8.4-10.2); Carbon Dioxide 19 mmol/L (22-30); Chloride 105 mmol/L (98-107); Glucose 116 mg/dL (74-99); Magnesium 2.2 mg/dL (1.6-2.3); Potassium 3.9 mmol/L (3.5-5.1); Sodium 131 mmol/L (137-145); Total Bilirubin 1.4 mg/dL (0.2-1.3); Total Protein 5.1 g/dL (6.3-8.2)
[2018-09-02] MEDS: LACTULOSE 20 GM/30 ML CUP PO SCH (08:16)
[2018-09-02] MEDS: PANTOPRAZOLE 40 MG/10 ML VIAL IVP SCH ×2 (08:17→21:00)
[2018-09-02] MEDS: PROPRANOLOL 10 MG TAB PO SCH ×4 (08:17→21:08)
[2018-09-02] MEDS: IPRATROPIUM-ALBUTEROL 3 ML NEB INHALATION SCH ×4 (08:29→19:34)
--- NOTE | 2018-09-02 11:53 | P.PN ---
Subjective Progress Note Date: 09/02/18 Principal diagnosis: GI bleed Status post EGD incomplete colonoscopy with variceal banding for acute GI bleed melena. Colonoscopy incomplete secondary to poor prep. No further bleeding. Tolerating clear liquids requesting diet advancement. Hemoglobin 7.4. Platelet 170. BUN 11. Creatinine 0.5. White count 14.1. Objective - Vital Signs Vital signs: Vital Signs Temp 98.6 F 09/02/18 08:00 Pulse 79 09/02/18 11:00 Resp 12 09/02/18 11:00 BP 102/59 09/02/18 11:00 Pulse Ox 96 09/02/18 11:00 Intake & Output 09/01/18 09/02/18 09/02/18 18:59 06:59 18:59 Intake Total 150.0 370.0 400.0 Output Total 1 Balance 149.0 370.0 400.0 Weight 101.5 kg Intake: IV 150.0 370.0 150.0 Lactated Ringers 1,000 ml 220 100 @ 20 mls/hr IV .Q24H RADHA Rx#:[id number] Octreotide 500 mcg In 150.0 150.0 50.0 Sodium Chloride 0.9% 250 ml @ 25 MCG/HR 12.5 mls/ hr IV .Q20H RADHA Rx#: [id number] Intake, IV Titration 250 Amount Octreotide 500 mcg In 250 Sodium Chloride 0.9% 250 ml @ 25 MCG/HR 12.5 mls/ hr IV .Q20H RADHA Rx#: [id number] Output: Urine 0 Stool 1 Other: Voiding Method Toilet Toilet Toilet # Voids 1 2 1 # Bowel Movements 1 1 - Exam General appearance: The patient is alert, oriented, in no acute distress. HET: Head is normocephalic and atraumatic. Pupils are equal and reactive. Oropharynx is clear without lesions. Neck: Supple without lymphadenopathy. Trachea midline. Heart: S1 S2. Regular rate and rhythm. Lungs: No crackles or wheezes are heard. Abdomen: Soft, nontender mildly distended minimal ascites with bowel sounds. No peritoneal signs. No palpable organomegaly or masses. Extremities: Normal skin color and turgor. No cyanosis, rash, ulceration, clubbing, or edema. Radial and pedal pulses are 2/4 bilaterally. Neurological: No focal deficits. Strength and sensation are grossly intact. - Labs CBC & Chem 7: 09/02/18 05:37 09/02/18 05:37 Labs: Abnormal Lab Results - Last 24 Hours (Table) 09/02/18 09/02/18 09/02/18 Range/Units 05:37 05:37 05:37 WBC 14.1 H (3.8-10.6) k/uL RBC 2.61 L (4.30-5.90) m/uL Hgb 7.4 L (13.0-17.5) gm/dL Hct 23.8 L (39.0-53.0) % RDW 19.1 H (11.5-15.5) % Neutrophils # 10.3 H (1.3-7.7) k/uL Monocytes # 1.6 H (0-1.0) k/uL Sodium 131 L (137-145) mmol/L Carbon Dioxide 19 L (22-30) mmol/L Creatinine 0.52 L (0.66-1.25) mg/dL Glucose 116 H (74-99) mg/dL Calcium 7.3 L (8.4-10.2) mg/dL Total Bilirubin 1.4 H (0.2-1.3) mg/dL Ammonia 87 H (<30) umol/L Total Protein 5.1 L (6.3-8.2) g/dL Albumin 2.4 L (3.5-5.0) g/dL Assessment and Plan (1) GI bleed Narrative/Plan: Acute upper GI bleed secondary to esophageal varices status post banding. Incomplete colonoscopy due to poor prep. Current Visit: Yes Status: Acute Code(s): K92.2 - GASTROINTESTINAL HEMORRHAGE, UNSPECIFIED SNOMED Code(s): 87853470 (2) ETOH abuse Narrative/Plan: Activity EtOH usage sixpack of beer daily underlying alcohol liver cirrhosis portal hypertension Current Visit: Yes Status: Acute Code(s): F10.10 - ALCOHOL ABUSE, UNCOMPLICATED SNOMED Code(s): 70040273 (3) Esophageal varices Current Visit: Yes Status: Acute Code(s): I85.00 - ESOPHAGEAL VARICES WITHOUT BLEEDING SNOMED Code(s): 80480522 (4) Portal hypertension Current Visit: Yes Status: Acute Code(s): K76.6 - PORTAL HYPERTENSION SNOMED Code(s): 11511871 (5) Cirrhosis Narrative/Plan: Minimal ascites not amenable for paracentesis at this time Current Visit: Yes Status: Acute Code(s): K74.60 - UNSPECIFIED CIRRHOSIS OF LIVER SNOMED Code(s): 25287624 Plan: 1. Will advance to low residue diet. CBC monitoring. Inderal 10 mg 3 times a day. Protonix 40 mg twice daily. Assessment and plan a care discussed with Dr. Harrington
[2018-09-02] MEDS: THIAMINE 100 MG TAB PO SCH ×2 (12:43→17:00)
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
[2018-09-02] MEDS: NICOTINE 14MG/24HR PATCH TRANSDERM SCH (21:08)
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
[2018-09-03] MEDS: MORPHINE SULFATE 4 MG/ML SYRINGE IVP PRN ×5 (01:58→20:33)
[2018-09-03 06:00] LABS: Anisocytosis Slight; Basophils # (A) 0.1 k/uL (0-0.2); Basophils % (A) 1 %; Eosinophils # (A) 0.6 k/uL (0-0.7); Eosinophils % (A) 5 %; HCT 23.4 % (39.0-53.0); HGB 7.3 gm/dL (13.0-17.5); Hypochromasia Moderate; Lymphocytes % (A) 9 %; MCH 28.3 pg (25.0-35.0); MCHC 31.3 g/dL (31.0-37.0); MCV 90.4 fL (80.0-100.0); Mean Platelet Volume 8.7; Monocytes # (A) 1.3 k/uL (0-1.0); Monocytes % (A) 12 %; Neutrophils # (A) 7.4 k/uL (1.3-7.7); Neutrophils % (A) 68 %; Platelet Count 165 k/uL (150-450); Poikilocytosis Slight; RBC 2.59 m/uL (4.30-5.90); RDW 18.8 % (11.5-15.5)
[2018-09-03 06:34] LABS: ALT 33 U/L (21-72); AST 45 U/L (17-59); Albumin 2.3 g/dL (3.5-5.0); Alkaline Phosphatase 102 U/L (38-126); Anion Gap 4 mmol/L; Blood Urea Nitrogen 8 mg/dL (9-20); Calcium 7.3 mg/dL (8.4-10.2); Carbon Dioxide 21 mmol/L (22-30); Chloride 107 mmol/L (98-107); Glucose 103 mg/dL (74-99); Potassium 3.7 mmol/L (3.5-5.1); Sodium 132 mmol/L (137-145); Total Bilirubin 0.9 mg/dL (0.2-1.3); Total Protein 4.8 g/dL (6.3-8.2)
[2018-09-03] MEDS: PANTOPRAZOLE 40 MG/10 ML VIAL IVP SCH ×2 (08:42→20:33)
[2018-09-03] MEDS: PROPRANOLOL 10 MG TAB PO SCH ×3 (08:42→21:45)
[2018-09-03] MEDS: LACTULOSE 20 GM/30 ML CUP PO SCH ×2 (08:42→08:44)
[2018-09-03] MEDS: IPRATROPIUM-ALBUTEROL 3 ML NEB INHALATION SCH ×5 (09:20→19:36)
[2018-09-03] MEDS: IOPAMIDOL-300 CONTRAST 30 ML VIAL (ORAL USE) PO PRN ×2 (11:31→12:25)
--- NOTE | 2018-09-03 11:32 | P.PN ---
Subjective Progress Note Date: 09/03/18 Principal diagnosis: 4-year-old gentleman known to the practice with a history of alcoholic liver disease, portal hypertension, ascites esophageal varices with banding in June ongoing alcohol abuse GI bleed anemia of blood loss and then noncompliance issues. Patient originally had hemoglobin of 4 when admitted to the hospital on reporting dark tarry stools 1 week denies hemoptysis is denies coffee-ground emesis Reviewed patient and examined patient today hemoglobin was 7.1, patient's complaining of abdominal pain and abdomen is somewhat rigid liver is enlarged elected to obtain CT with contrast to assess abdomen, pain radiating to back persists Objective - Vital Signs Vital signs: Vital Signs Temp 99.6 F 09/03/18 08:00 Pulse 79 09/03/18 08:00 Resp 13 09/03/18 08:00 BP 107/73 09/03/18 08:00 Pulse Ox 95 09/03/18 08:00 Intake & Output 09/02/18 09/03/18 09/03/18 18:59 06:59 18:59 Intake Total 550.0 160 200 Output Total 2 Balance 548.0 160 200 Weight 101.3 kg Intake: IV 150.0 160 .9 80 Lactated Ringers 1,000 ml 100 80 @ 20 mls/hr IV .Q24H [facility] Rx#:[id number] Octreotide 500 mcg In 50.0 Sodium Chloride 0.9% 250 ml @ 25 MCG/HR 12.5 mls/ hr IV .Q20H [facility] Rx#: [id number] Intake, IV Titration 300 Amount Octreotide 500 mcg In 250 Sodium Chloride 0.9% 250 ml @ 25 MCG/HR 12.5 mls/ hr IV .Q20H [facility] Rx#: [id number] cefTRIAXone 1 gm In 50 Sodium Chloride 0.9% 50 ml @ 100 mls/hr IVPB Q24H [facility] Rx#:[id number] Oral 100 200 Output: Stool 2 Other: Voiding Method Toilet Toilet Toilet # Voids 1 2 # Bowel Movements 1 - Exam General: [Patient awake, alert and oriented times 3. Afebrile, conjunctiva pale HEENT: [PERRL. EOMI. No pharyngeal erythema or exudate.] Neck: [No adenopathy.] Cardiac: [Heart regular in rate and rhythm. No S3. No S4. No clicks, rubs. No murmur.] Lungs: [Clear to auscultation bilaterally.] Abdomen: [No mass. Significant liver enlargement, abdomen large firm Bowel sounds presnt and normoactive in all 4 quadrants.] Extremes: [No edema no cyanosis no claudication normal pulses] : [] Musculoskeletal: [No joint erythema, edema or tenderness.] Skin: [No rash.] Neurologic: [No lateralizing deficits. CN II - XII grossly intact.] Lymphatic: [No adenopathy.] - Labs CBC & Chem 7: 09/03/18 05:00 09/03/18 05:00 Labs: Abnormal Lab Results - Last 24 Hours (Table) 09/03/18 09/03/18 09/03/18 Range/Units 05:00 05:00 08:39 WBC 11.0 H (3.8-10.6) k/uL RBC 2.59 L (4.30-5.90) m/uL Hgb 7.3 L (13.0-17.5) gm/dL Hct 23.4 L (39.0-53.0) % RDW 18.8 H (11.5-15.5) % Monocytes # 1.3 H (0-1.0) k/uL Sodium 132 L (137-145) mmol/L Carbon Dioxide 21 L (22-30) mmol/L BUN 8 L (9-20) mg/dL Creatinine 0.50 L (0.66-1.25) mg/dL Glucose 103 H (74-99) mg/dL Calcium 7.3 L (8.4-10.2) mg/dL Ammonia 64 H (<30) umol/L Total Protein 4.8 L (6.3-8.2) g/dL Albumin 2.3 L (3.5-5.0) g/dL Microbiology - Last 24 Hours (Table) 09/02/18 09:00 Gram Stain - Preliminary Sputum Assessment and Plan (1) Pancreatitis, acute Current Visit: No Status: Acute Code(s): K85.90 - ACUTE PANCREATITIS WITHOUT NECROSIS OR INFECTION, UNSP SNOMED Code(s): 700064946 (2) Chest pain Current Visit: No Status: Acute Code(s): R07.9 - CHEST PAIN, UNSPECIFIED SNOMED Code(s): 86725475 (3) Alcohol abuse Current Visit: No Status: Acute Code(s): F10.10 - ALCOHOL ABUSE, UNCOMPLICATED SNOMED Code(s): 14156717 (4) Alcohol intoxication Current Visit: No Status: Acute Code(s): F10.929 - ALCOHOL USE, UNSPECIFIED WITH INTOXICATION, UNSPECIFIED SNOMED Code(s): 59024912 (5) Acute alcoholic pancreatitis Current Visit: No Status: Acute Code(s): K85.20 - ALCOHOL INDUCED ACUTE PANCREATITIS WITHOUT NECROSIS OR INFCT SNOMED Code(s): 918790483 (6) Alcoholic hepatitis without ascites Current Visit: No Status: Acute Code(s): K70.10 - ALCOHOLIC HEPATITIS WITHOUT ASCITES SNOMED Code(s): 845867071 (7) Liver disease due to alcohol Current Visit: No Status: Acute Code(s): K70.9 - ALCOHOLIC LIVER DISEASE, UNSPECIFIED SNOMED Code(s): 65535164 (8) Anemia Current Visit: No Status: Acute Code(s): D64.9 - ANEMIA, UNSPECIFIED SNOMED Code(s): 034646059 (9) Esophageal varices with bleeding Current Visit: No Status: Acute Code(s): I85.01 - ESOPHAGEAL VARICES WITH BLEEDING SNOMED Code(s): 80931992 (10) Melena Current Visit: No Status: Acute Code(s): K92.1 - MELENA SNOMED Code(s): 6096335 Plan: Patient's complaint of abdominal pain CT of abdomen with contrast performed Hemoglobin dropped ever so slightly still improved from admission probable hematoma will Labs including ammonia level have improved from admission Pancreatitis noted Patient awaiting bed and MedSurg will continue to follow closely Time with Patient: Greater than 30
[2018-09-03] MEDS: THIAMINE 100 MG TAB PO SCH ×3 (12:34→17:25)
--- NOTE | 2018-09-03 13:34 | CT ---
EXAMINATION TYPE: CT abdomen pelvis w con DATE OF EXAM: 09/03/2018 COMPARISON: 07/09/2018 HISTORY: 44-year-old male Abdominal/pelvic pain with abdominal distention TECHNIQUE: Contiguous axial scanning of the abdomen and pelvis following administration of 100 ml Iso dk 300 IV contrast. Delayed images through the kidneys and coronal/sagittal reconstructions perform ed. CT DLP: 1758.4 mGycm Automated exposure control for dose reduction was used. FINDINGS: Heart normal size without pericardial effusion. Strandy atelectasis in the lower lungs without pleura l effusion. Cirrhotic morphology of the liver with contour nodularity. No definite focal liver lesion is identifi ed. There is new nonocclusive thrombus within the main portal vein for a length of 1.7 cm, refer to axial image 26 and coronal image 63. The remainder of the portal venous system appears patent. There is a recanalized umbilical vein with large collateral vessels in the region of the gastrohepatic ligament and GE junction. Additional splenorenal shunt is demonstrated. New moderate abdominal pelvic ascites. Increasing diffuse anasarca-type change body wall edema. Small ascites containing umbilical hernia. There is circumferential wall thickening of the cecum and ascending colon. No evidence of biliary ductal dilatation. Adrenal glands and pancreas show no gross abnormality. Spleen is enlarged measuring 16.9 cm on turner l series. Punctate 2 and 3 mm bilateral renal calculi are present 7 and the left kidney and 2 in the right kidn ey. No obvious abdominal lymphadenopathy though assessment is limited due to the diffuse anasarca change. No dilated small bowel or free air. Bladder is urine distended. Ascites containing direct left inguinal hernia. No pelvic lymphadenopathy identified. Bones: Mild degenerative changes of the hips. No osseous destructive process. IMPRESSION: 1. CIRRHOSIS. NO CONVINCING EVIDENCE FOR HEPATOMA. 2. PORTAL VENOUS HYPERTENSION (SPLENOMEGALY AT 16.7 CM, LARGE UPPER ABDOMINAL COLLATERALS, SPLENORENA L SHUNT, RECANALIZED UMBILICAL VEIN, AND LOWER GASTROESOPHAGEAL VARICES). 3. NEW MODERATE ABDOMINOPELVIC ASCITES AND INCREASING DIFFUSE ANASARCA TYPE CHANGE. 4. NEW SHORT SEGMENT NONOCCLUSIVE THROMBOSIS OF THE MAIN PORTAL VEIN. 5. NONOBSTRUCTIVE BILATERAL RENAL CALCULI MEASURING UP TO 3 MM. 6. NEW CIRCUMFERENTIAL WALL THICKENING OF THE CECUM AND ASCENDING COLON MAY BE EDEMATOUS CHANGE SECON THAO TO HYPOALBUMINEMIA. CORRELATE TO EXCLUDE NONSPECIFIC COLITIS.
[2018-09-03] MEDS: NICOTINE 14MG/24HR PATCH TRANSDERM SCH (20:32)
[2018-09-04] MEDS: MORPHINE SULFATE 4 MG/ML SYRINGE IVP PRN ×6 (00:25→20:17)
[2018-09-04 06:49] LABS: Anisocytosis Slight; Basophils # (A) 0.1 k/uL (0-0.2); Basophils % (A) 1 %; Eosinophils # (A) 0.6 k/uL (0-0.7); Eosinophils % (A) 6 %; HCT 24.1 % (39.0-53.0); HGB 7.8 gm/dL (13.0-17.5); Hypochromasia Marked; Lymphocytes # (A) 1.1 k/uL (1.0-4.8); Lymphocytes % (A) 11 %; MCHC 32.3 g/dL (31.0-37.0); MCV 89.6 fL (80.0-100.0); Mean Platelet Volume 8.9; Monocytes # (A) 1.3 k/uL (0-1.0); Monocytes % (A) 14 %; Neutrophils # (A) 6.2 k/uL (1.3-7.7); Neutrophils % (A) 64 %; Platelet Count 186 k/uL (150-450); Poikilocytosis Slight; RBC 2.69 m/uL (4.30-5.90); RDW 18.3 % (11.5-15.5); WBC 9.7 k/uL (3.8-10.6)
[2018-09-04 06:54] LABS: ALT 31 U/L (21-72); AST 42 U/L (17-59); Albumin 2.3 g/dL (3.5-5.0); Alkaline Phosphatase 101 U/L (38-126); Anion Gap 7 mmol/L; Blood Urea Nitrogen 6 mg/dL (9-20); Calcium 7.6 mg/dL (8.4-10.2); Carbon Dioxide 20 mmol/L (22-30); Chloride 105 mmol/L (98-107); Glucose 109 mg/dL (74-99); Magnesium 1.9 mg/dL (1.6-2.3); Potassium 3.5 mmol/L (3.5-5.1); Sodium 132 mmol/L (137-145); Total Bilirubin 0.9 mg/dL (0.2-1.3); Total Protein 4.9 g/dL (6.3-8.2)
[2018-09-04] MEDS: IPRATROPIUM-ALBUTEROL 3 ML NEB INHALATION SCH ×4 (08:12→20:57)
[2018-09-04] MEDS: THIAMINE 100 MG TAB PO SCH ×2 (08:31→16:46)
[2018-09-04] MEDS: LACTULOSE 20 GM/30 ML CUP PO SCH ×2 (08:36→16:48)
[2018-09-04] MEDS: PROPRANOLOL 10 MG TAB PO SCH ×3 (08:37→20:16)
--- NOTE | 2018-09-04 13:31 | P.PN ---
Subjective Progress Note Date: 09/04/18 Principal diagnosis: 4-year-old gentleman known to the practice with a history of alcoholic liver disease, portal hypertension, ascites esophageal varices with banding in June ongoing alcohol abuse GI bleed anemia of blood loss and then noncompliance issues. Patient originally had hemoglobin of 4 when admitted to the hospital on reporting dark tarry stools 1 week denies hemoptysis is denies coffee-ground emesis Reviewed patient and examined patient today hemoglobin was 7.1, patient's complaining of abdominal pain and abdomen is somewhat rigid liver is enlarged elected to obtain CT with contrast to assess abdomen, pain radiating to back persists 09/04/2018 Patient complains of abdominal pain mildly improved from yesterday. CT results are as follows: Cirrhosis no evidence for hepatoma #2 portal hypertension splenomegaly area at 16.7 cm umbilical vein and lower gastroesophageal varices, #3 Short segment nonocclusive thrombosis of the main portal vein #4 new moderate abdominal pelvic ascites and increasing diffuse anasarca #5 nonobstructing bilateral renal calculi of at least 3 millimeters, last but not least new circumferential wall thickening of the cecum and ascending colon may be edematous changes secondary to hypoalbuminemia Discussed findings at length with the patient made it very clear to him that this had the extreme potential of precancerous liver disease explained that he really needs to stop drinking and have a complete lifestyle change Discussed with nursing as well as the patient the necessity when ready transferred to rehab unit for at least a week or 2 and subsequently to some inpatient alcohol treatment center Objective - Vital Signs Vital signs: Vital Signs Temp 98.4 F 09/04/18 07:15 Pulse 94 09/04/18 07:15 Resp 14 09/04/18 07:15 BP 110/60 09/04/18 07:15 Pulse Ox 98 09/04/18 07:15 Intake & Output 09/03/18 09/04/18 09/04/18 18:59 06:59 18:59 Intake Total 1600 1420 180 Output Total 6 550 250 Balance 1594 870 -70 Weight 101 kg Intake: Oral 1600 1420 180 Output: Urine 550 250 Stool 6 Other: Voiding Method Toilet Toilet # Voids 2 1 - Exam General: [Patient awake, alert and oriented times 3. Afebrile, conjunctiva pale HEENT: [PERRL. EOMI. No pharyngeal erythema or exudate.] Neck: [No adenopathy.] Cardiac: [Heart regular in rate and rhythm. No S3. No S4. No clicks, rubs. No murmur.] Lungs: [Clear to auscultation bilaterally.] Abdomen: [No mass. Significant liver enlargement, abdomen large firm Bowel sounds presnt and normoactive in all 4 quadrants.] Extremes: [No edema no cyanosis no claudication normal pulses] : [] Musculoskeletal: [No joint erythema, edema or tenderness.] Skin: [No rash.] Neurologic: [No lateralizing deficits. CN II - XII grossly intact.] Lymphatic: [No adenopathy.] - Labs CBC & Chem 7: 09/04/18 06:15 09/04/18 06:15 Labs: Abnormal Lab Results - Last 24 Hours (Table) 09/04/18 09/04/18 09/04/18 Range/Units 06:15 06:15 06:15 RBC 2.69 L (4.30-5.90) m/uL Hgb 7.8 L (13.0-17.5) gm/dL Hct 24.1 L (39.0-53.0) % RDW 18.3 H (11.5-15.5) % Monocytes # 1.3 H (0-1.0) k/uL Sodium 132 L (137-145) mmol/L Carbon Dioxide 20 L (22-30) mmol/L BUN 6 L (9-20) mg/dL Creatinine 0.52 L (0.66-1.25) mg/dL Glucose 109 H (74-99) mg/dL Calcium 7.6 L (8.4-10.2) mg/dL Ammonia 64 H (<30) umol/L Total Protein 4.9 L (6.3-8.2) g/dL Albumin 2.3 L (3.5-5.0) g/dL Microbiology - Last 24 Hours (Table) 09/02/18 09:00 Gram Stain - Final Sputum Sputum Culture - Final Marag albicans Assessment and Plan (1) Pancreatitis, acute Current Visit: No Status: Acute Code(s): K85.90 - ACUTE PANCREATITIS WITHOUT NECROSIS OR INFECTION, UNSP SNOMED Code(s): 538042486 (2) Chest pain Current Visit: No Status: Acute Code(s): R07.9 - CHEST PAIN, UNSPECIFIED SNOMED Code(s): 14689441 (3) Alcohol abuse Current Visit: No Status: Acute Code(s): F10.10 - ALCOHOL ABUSE, UNCOMPL ICATED SNOMED Code(s): 84610035 (4) Alcohol intoxication Current Visit: No Status: Acute Code(s): F10.929 - ALCOHOL USE, UNSPECIFIED WITH INTOXICATION, UNSPECIFIED SNOMED Code(s): 03161695 (5) Acute alcoholic pancreatitis Current Visit: No Status: Acute Code(s): K85.20 - ALCOHOL INDUCED ACUTE PANCREATITIS WITHOUT NECROSIS OR INFCT SNOMED Code(s): 413467801 (6) Alcoholic hepatitis without ascites Current Visit: No Status: Acute Code(s): K70.10 - ALCOHOLIC HEPATITIS WITHOUT ASCITES SNOMED Code(s): 102423612 (7) Liver disease due to alcohol Current Visit: No Status: Acute Code(s): K70.9 - ALCOHOLIC LIVER DISEASE, UNSPECIFIED SNOMED Code(s): 90546181 (8) Anemia Current Visit: No Status: Acute Code(s): D64.9 - ANEMIA, UNSPECIFIED SNOMED Code(s): 224874382 (9) Esophageal varices with bleeding Current Visit: No Status: Acute Code(s): I85.01 - ESOPHAGEAL VARICES WITH BLEEDING SNOMED Code(s): 55916689 (10) Melena Current Visit: No Status: Acute Code(s): K92.1 - MELENA SNOMED Code(s): 2214735 Plan: Patient's complaint of abdominal pain CT of abdomen with contrast performed, discussed results at length with patient Hemoglobin dropped ever so slightly still improved from admission probable hemodiluted Labs including ammonia level have improved from admission, patient has refused lactulose the last 2 days because of excessive stooling encourage patient to take lactulose today as well as ammonia level has not changed in 2 days currently at 64 Pancreatitis noted Patient transferred to [facility] Time with Patient: Greater than 30
[2018-09-04] MEDS: PANTOPRAZOLE 40 MG TABLET PO SCH (20:16)
[2018-09-04] MEDS: NICOTINE 14MG/24HR PATCH TRANSDERM SCH (20:16)
[2018-09-05] MEDS: MORPHINE SULFATE 4 MG/ML SYRINGE IVP PRN ×3 (00:05→08:15)
[2018-09-05] MEDS: IPRATROPIUM-ALBUTEROL 3 ML NEB INHALATION SCH ×4 (07:34→20:45)
[2018-09-05 07:51] LABS: ALT 30 U/L (21-72); AST 42 U/L (17-59); Albumin 2.3 g/dL (3.5-5.0); Alkaline Phosphatase 104 U/L (38-126); Anion Gap 4 mmol/L; Anisocytosis Slight; Basophils % (A) 1 %; Blood Urea Nitrogen 4 mg/dL (9-20); Calcium 7.7 mg/dL (8.4-10.2); Carbon Dioxide 22 mmol/L (22-30); Chloride 108 mmol/L (98-107); Eosinophils # (A) 0.5 k/uL (0-0.7); Eosinophils % (A) 6 %; Glucose 123 mg/dL (74-99); HCT 24.2 % (39.0-53.0); HGB 7.5 gm/dL (13.0-17.5); Hypochromasia Marked; Lymphocytes # (A) 1.1 k/uL (1.0-4.8); Lymphocytes % (A) 13 %; MCHC 31.1 g/dL (31.0-37.0); MCV 90.2 fL (80.0-100.0); Magnesium 1.8 mg/dL (1.6-2.3); Mean Platelet Volume 8.4; Monocytes # (A) 0.9 k/uL (0-1.0); Monocytes % (A) 11 %; Neutrophils # (A) 5.4 k/uL (1.3-7.7); Neutrophils % (A) 65 %; Platelet Count 187 k/uL (150-450); Poikilocytosis Slight; Potassium 3.4 mmol/L (3.5-5.1); RBC 2.68 m/uL (4.30-5.90); RDW 18.3 % (11.5-15.5); Sodium 134 mmol/L (137-145); Total Bilirubin 0.9 mg/dL (0.2-1.3); WBC 8.3 k/uL (3.8-10.6)
[2018-09-05] MEDS: LACTULOSE 20 GM/30 ML CUP PO SCH ×3 (08:15→20:51)
[2018-09-05] MEDS: PANTOPRAZOLE 40 MG TABLET PO SCH ×2 (08:15→20:51)
[2018-09-05] MEDS: PROPRANOLOL 10 MG TAB PO SCH ×3 (08:15→20:52)
[2018-09-05] MEDS ORDERED: HYDROcodone/APAP 5-325MG 1 EACH TAB PO PRN (09:30)
[2018-09-05] MEDS: POTASSIUM CHLORIDE ER 20 MEQ TAB.ER PO SCH ×2 (10:36→11:50)
[2018-09-05 10:40] VITALS: BMI 29.7
[2018-09-05] MEDS: THIAMINE 100 MG TAB PO SCH ×2 (11:50→17:45)
[2018-09-05] MEDS: HYDROcodone/APAP 5-325MG 1 EACH TAB PO PRN ×3 (11:50→23:32)
[2018-09-05 13:32] LABS: INR 1.2 (<1.2); Prothrombin Time 12.4 sec (9.0-12.0)
--- NOTE | 2018-09-05 13:47 | US ---
EXAMINATION TYPE: US abdomen limited DATE OF EXAM: 09/05/2018 COMPARISON: CT 09/05/2018 CLINICAL HISTORY: ascites. Moderate amount of fluid seen within all four quadrants. Limited scanning of the abdomen. IMPRESSION: Moderate ascites.
[2018-09-05 15:22] VITALS: RESP 16
--- NOTE | 2018-09-05 16:01 | US ---
EXAMINATION TYPE: US paracentesis abd w/image DATE OF EXAM: 09/05/2018 COMPARISON: NONE HISTORY: Ascites. PROCEDURE: Maximal barrier technique was utilized. The skin overlying a suitable pocket of fluid was localized with ultrasound and the overlying skin was prepped and draped. Ultrasound was utilized with sterile technique. Lidocaine was used for local anesthesia and a skin henry made with a scalpel. Catheter was advanced under direct ultrasound guidance into a suitable pocket of fluid and approximately 5 liters of wrist fluid were removed. Catheter was withdrawn and hemostasis achieved. There is no immediate complication; the patient is discharged in stable condition. IMPRESSION: STATUS POST ULTRASOUND GUIDED PARACENTESIS FOR PALLIATION OF ASCITES. THIS PROCEDURE WA S PERFORMED BY THE UNDERSIGNED. Specimen sent for laboratory analysis.
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
[2018-09-05 18:25] LABS: Appearance,BF Hazy; Color,BF Yellow; Nucleated Cells, Body Fluid 125 /uL; RBC, Body Fluid 447 /uL
[2018-09-05 18:58] LABS: Mononuclear WBC,Body Fluid 72 %; Polynuclear WBC,Body Fluid 28 %; Total Cells Counted,Body Fluid 100
[2018-09-05] MEDS: ALBUMIN HUMAN 25% 50 ML in EMPTY BAG 1 BAG IVPB SCH ×2 (20:05→20:25)
[2018-09-05] MEDS: NICOTINE 14MG/24HR PATCH TRANSDERM SCH (20:48)
[2018-09-05] MEDS ORDERED: POTASSIUM CHLORIDE ER 20 MEQ TAB.ER PO SCH (21:00)
--- NOTE | 2018-09-05 23:30 | P.PN ---
Subjective Progress Note Date: 09/05/18 Principal diagnosis: Decompensated alcoholic cirrhosis Patient seen lying in bed, still reporting some abdominal pain and distention. Tolerating his diet. No nausea vomiting reported. Objective - Vital Signs Vital signs: Vital Signs Temp 98.4 F 09/05/18 19:11 Pulse 84 09/05/18 19:11 Resp 16 09/05/18 20:05 BP 149/80 09/05/18 19:11 Pulse Ox 98 09/05/18 19:11 Intake & Output 09/05/18 09/05/18 09/06/18 06:59 18:59 06:59 Intake Total 1080 632 Balance 1080 632 Weight 99.6 kg 99.6 kg Intake: Oral 1080 632 Other: Voiding Method Toilet # Voids 2 - Exam On physical examination, patient appears comfortable in no apparent distress. HEAD: Normocephalic, atraumatic. EYES: No scleral icterus. No conjunctival injection. MOUTH: No lesions, tongue midline. NECK: Trachea midline, no gross abnormalities. CHEST: Clear to auscultation with no wheezing or rhonchi appreciated. HEART: Regular rate and rhythm. ABDOMEN: Soft, distended with positive fluid wave. Bowel sounds are positive. No organomegaly. No guarding or rigidity. EXTREMITIES: Minimal pedal edema. SKIN: No rashes, no jaundice. NEUROLOGIC: Alert and oriented x3. No asterixis noted. No focal deficits. - Labs CBC & Chem 7: 09/05/18 07:09 09/05/18 19:37 Labs: Abnormal Lab Results - Last 24 Hours (Table) 09/05/18 09/05/18 09/05/18 Range/Units 07:09 07:09 09:35 RBC 2.68 L (4.30-5.90) m/uL Hgb 7.5 L (13.0-17.5) gm/dL Hct 24.2 L (39.0-53.0) % RDW 18.3 H (11.5-15.5) % PT (9.0-12.0) sec INR (<1.2) Sodium 134 L (137-145) mmol/L Potassium 3.4 L (3.5-5.1) mmol/L Chloride 108 H (98-107) mmol/L BUN 4 L (9-20) mg/dL Creatinine 0.49 L (0.66-1.25) mg/dL Glucose 123 H (74-99) mg/dL Calcium 7.7 L (8.4-10.2) mg/dL Ammonia 68 H (<30) umol/L Total Protein 5.0 L (6.3-8.2) g/dL Albumin 2.3 L (3.5-5.0) g/dL 09/05/18 Range/Units 13:11 RBC (4.30-5.90) m/uL Hgb (13.0-17.5) gm/dL Hct (39.0-53.0) % RDW (11.5-15.5) % PT 12.4 H (9.0-12.0) sec INR 1.2 H (<1.2) Sodium (137-145) mmol/L Potassium (3.5-5.1) mmol/L Chloride (98-107) mmol/L BUN (9-20) mg/dL Creatinine (0.66-1.25) mg/dL Glucose (74-99) mg/dL Calcium (8.4-10.2) mg/dL Ammonia (<30) umol/L Total Protein (6.3-8.2) g/dL Albumin (3.5-5.0) g/dL Microbiology - Last 24 Hours (Table) 09/05/18 14:25 Anaerobic Culture - Preliminary Ascites Fluid 09/05/18 14:25 Body Fluid Culture - Preliminary Ascites Fluid Assessment and Plan (1) Alcoholic liver disease Narrative/Plan: Patient with decompensated alcoholic cirrhosis with varices banded on this hospitalization as well as ascites. Current Visit: Yes Status: Acute Code(s): K70.9 - ALCOHOLIC LIVER DISEASE, UNSPECIFIED SNOMED Code(s): 27093631 (2) Cirrhosis Current Visit: Yes Status: Acute Code(s): K74.60 - UNSPECIFIED CIRRHOSIS OF LIVER SNOMED Code(s): 05891800 (3) Esophageal varices Narrative/Plan: Patient presenting with signs and symptoms of GI bleed found to have distal esophageal varices with evidence of recent bleed status post banding. Current Visit: Yes Status: Acute Code(s): I85.00 - ESOPHAGEAL VARICES WITHOUT BLEEDING SNOMED Code(s): 99712342 (4) GI bleed Current Visit: Yes Status: Acute Code(s): K92.2 - GASTROINTESTINAL HEMORRHAGE, UNSPECIFIED SNOMED Code(s): 72894511 Plan: Supportive care Okay for low-sodium diet Patient is status post EGD with variceal banding Continue Protonix therapy Plan for ultrasound-guided paracentesis today with albumin given his greater than 5 L is taken off Continue vitamin and mineral supplementation Alcohol abstinence Continue diuretic medications Thank you for allowing us to participate in the care of the patient we will continue to follow
[2018-09-06] MEDS: HYDROcodone/APAP 5-325MG 1 EACH TAB PO PRN ×2 (05:32→12:20)
[2018-09-06] MEDS: IPRATROPIUM-ALBUTEROL 3 ML NEB INHALATION SCH ×3 (07:28→15:40)
[2018-09-06 07:49] VITALS: BP 116/66; PULSE 96; TEMP 98.7
[2018-09-06 08:23] LABS: Anion Gap 8 mmol/L; Blood Urea Nitrogen 4 mg/dL (9-20); Calcium 8.1 mg/dL (8.4-10.2); Carbon Dioxide 19 mmol/L (22-30); Chloride 110 mmol/L (98-107); Glucose 72 mg/dL (74-99); Magnesium 1.6 mg/dL (1.6-2.3); Potassium 3.9 mmol/L (3.5-5.1); Sodium 137 mmol/L (137-145)
[2018-09-06] MEDS: PROPRANOLOL 10 MG TAB PO SCH (09:03)
[2018-09-06] MEDS: LACTULOSE 20 GM/30 ML CUP PO SCH (09:40)
[2018-09-06] MEDS: PANTOPRAZOLE 40 MG TABLET PO SCH (09:40)
[2018-09-06 09:48] LABS: Anisocytosis Slight; HCT 24.1 % (39.0-53.0); HGB 7.4 gm/dL (13.0-17.5); Hypochromasia Marked; MCH 27.8 pg (25.0-35.0); MCHC 30.6 g/dL (31.0-37.0); MCV 90.8 fL (80.0-100.0); Mean Platelet Volume 8.7; Platelet Count 200 k/uL (150-450); Poikilocytosis Slight; RBC 2.66 m/uL (4.30-5.90); RDW 18.4 % (11.5-15.5); WBC 9.8 k/uL (3.8-10.6)
[2018-09-06] MEDS ORDERED: POTASSIUM CHLORIDE ER 20 MEQ TAB.ER PO SCH (10:00)
--- NOTE | 2018-09-06 12:10 | P.PN ---
Subjective Progress Note Date: 09/06/18 Principal diagnosis: Decompensated alcohol cirrhosis No complaints. Tolerating diet. Refusing Inderal and other medications. No bleeding. Hemoglobin yesterday 7.5. Status post paracentesis 5 L removed. Objective - Vital Signs Vital signs: Vital Signs Temp 98.7 F 09/06/18 07:47 Pulse 96 09/06/18 07:47 Resp 16 09/06/18 07:47 BP 116/66 09/06/18 07:47 Pulse Ox 97 09/06/18 07:47 Intake & Output 09/05/18 09/06/18 09/06/18 18:59 06:59 18:59 Intake Total 632 Balance 632 Weight 99.6 kg 95 kg Intake: Oral 632 Other: Voiding Method Toilet # Voids 1 - Exam On physical examination, patient appears comfortable in no apparent distress. HEAD: Normocephalic, atraumatic. EYES: No scleral icterus. No conjunctival injection. MOUTH: No lesions, tongue midline. NECK: Trachea midline, no gross abnormalities. CHEST: Clear to auscultation with no wheezing or rhonchi appreciated. HEART: Regular rate and rhythm. ABDOMEN: Soft, mildly distended. Bowel sounds are positive. No organomegaly. No guarding or rigidity. EXTREMITIES: Minimal pedal edema. SKIN: No rashes, no jaundice. NEUROLOGIC: Alert and oriented x3. No asterixis noted. No focal deficits. - Labs CBC & Chem 7: 09/06/18 07:51 09/06/18 07:40 Labs: Abnormal Lab Results - Last 24 Hours (Table) 09/05/18 09/06/18 09/06/18 Range/Units 13:11 07:40 07:51 RBC (4.30-5.90) m/uL Hgb (13.0-17.5) gm/dL Hct (39.0-53.0) % MCHC (31.0-37.0) g/dL RDW (11.5-15.5) % PT 12.4 H (9.0-12.0) sec INR 1.2 H (<1.2) Chloride 110 H (98-107) mmol/L Carbon Dioxide 19 L (22-30) mmol/L BUN 4 L (9-20) mg/dL Creatinine 0.49 L (0.66-1.25) mg/dL Glucose 72 L (74-99) mg/dL Calcium 8.1 L (8.4-10.2) mg/dL Ammonia 57 H (<30) umol/L 09/06/18 Range/Units 07:51 RBC 2.66 L (4.30-5.90) m/uL Hgb 7.4 L (13.0-17.5) gm/dL Hct 24.1 L (39.0-53.0) % MCHC 30.6 L (31.0-37.0) g/dL RDW 18.4 H (11.5-15.5) % PT (9.0-12.0) sec INR (<1.2) Chloride (98-107) mmol/L Carbon Dioxide (22-30) mmol/L BUN (9-20) mg/dL Creatinine (0.66-1.25) mg/dL Glucose (74-99) mg/dL Calcium (8.4-10.2) mg/dL Ammonia (<30) umol/L Microbiology - Last 24 Hours (Table) 09/05/18 14:25 Gram Stain - Preliminary Ascites Fluid Body Fluid Culture - Preliminary 09/05/18 14:25 Anaerobic Culture - Preliminary Ascites Fluid Assessment and Plan (1) GI bleed Current Visit: Yes Status: Acute Code(s): K92.2 - GASTROINTESTINAL HEMORRHAGE, UNSPECIFIED SNOMED Code(s): 30706221 (2) ETOH abuse Current Visit: Yes Status: Acute Code(s): F10.10 - ALCOHOL ABUSE, UNCOMPLICATED SNOMED Code(s): 57422925 (3) Esophageal varices Current Visit: Yes Status: Acute Code(s): I85.00 - ESOPHAGEAL VARICES WITHOUT BLEEDING SNOMED Code(s): 39167257 (4) Portal hypertension Current Visit: Yes Status: Acute Code(s): K76.6 - PORTAL HYPERTENSION S NOMED Code(s): 89468730 (5) Cirrhosis Current Visit: Yes Status: Acute Code(s): K74.60 - UNSPECIFIED CIRRHOSIS OF LIVER SNOMED Code(s): 32883519 Plan: Supportive care. Agreeable for discharge. Emphasis was placed on medication compliance for treatment of his underlying liver disease. Return to office in 2-3 weeks. Okay for low-sodium diet Patient is status post EGD with variceal banding Continue Protonix therapy Continue vitamin and mineral supplementation Alcohol abstinence Continue diuretic medications Assessment and plan a care discussed with Dr. Harrington.
[2018-09-06] MEDS: THIAMINE 100 MG TAB PO SCH (12:21)
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
== END 2018-09-06 17:00 | disposition home or self-care (01) | DRG 432 ==
LOC: EC 23:20 → 4SSUR 23:34 → 2SICU 08-30 09:29 → 4SSUR 09-03 23:40
PROVIDERS: ADMIT Family Medicine; ATTEND Family Medicine
PROC: 30233N1 Transfusion of Nonautologous Red Blood Cells into Peripheral Vein, Percutaneous Approach (ICD-10-PCS; 2018-08-31)
PROC: 06L38CZ Occlusion of Esophageal Vein with Extraluminal Device, Via Natural or Artificial Opening Endoscopic (ICD-10-PCS; 2018-08-31 10:00)
PROC: 0DJD8ZZ Inspection of Lower Intestinal Tract, Via Natural or Artificial Opening Endoscopic (ICD-10-PCS; 2018-08-31 10:00)
PROC: 0W9G3ZZ Drainage of Peritoneal Cavity, Percutaneous Approach (ICD-10-PCS; principal; 2018-09-05)
DX: K70.31 Alcoholic cirrhosis of liver with ascites (principal); I85.11 Secondary esophageal varices with bleeding; I81 Portal vein thrombosis; K85.20 Alcohol induced acute pancreatitis without necrosis or infection; S22.42XA Multiple fractures of ribs, left side, initial encounter for closed fracture; D62 Acute posthemorrhagic anemia; J98.11 Atelectasis; K76.6 Portal hypertension; K86.1 Other chronic pancreatitis; D53.9 Nutritional anemia, unspecified; E86.0 Dehydration; F10.229 Alcohol dependence with intoxication, unspecified; F17.200 Nicotine dependence, unspecified, uncomplicated; F43.10 Post-traumatic stress disorder, unspecified; G89.4 Chronic pain syndrome; J43.8 Other emphysema; J45.909 Unspecified asthma, uncomplicated; K31.89 Other diseases of stomach and duodenum; K59.00 Constipation, unspecified; K64.8 Other hemorrhoids; K70.11 Alcoholic hepatitis with ascites; N20.0 Calculus of kidney; W03.XXXA Other fall on same level due to collision with another person, initial encounter; Z79.899 Other long term (current) drug therapy; Z82.49 Family history of ischemic heart disease and other diseases of the circulatory system; Z87.442 Personal history of urinary calculi; Z90.49 Acquired absence of other specified parts of digestive tract; Z91.19 Patient's noncompliance with other medical treatment and regimen
CPT/HCPCS: 36415; 43255; 45378; 49083; 71045; 71046; 74177; 76705; 80048; 80053; 80320; 81001; 82042; 82140; 82150; 82945; 83520; 83605; 83690; 83735; 84100; 84132; 84484; 85025; 85027; 85610; 85730; 86850; 86870; 86880; 86900; 86901; 86902; 86920; 87070; 87075; 87205; 88108; 88305; 89050; 93005; 94640; 96361; 96372; 96374; 99285

== ENCOUNTER → 2018-09-09 | Outpatient (CLI) | payer OTHER ==
[2018-09-09 16:52] LABS: Potassium 3.7 mmol/L (3.5-5.1); Total Bilirubin 1.2 mg/dL (0.2-1.3); Total Protein 5.8 g/dL (6.3-8.2)
[2018-09-09 17:03] LABS: Anisocytosis Slight; Basophils # (A) 0.1 k/uL (0-0.2); Basophils % (A) 1 %; Eosinophils # (A) 0.4 k/uL (0-0.7); Eosinophils % (A) 3 %; HCT 27.1 % (39.0-53.0); HGB 8.4 gm/dL (13.0-17.5); Hypochromasia Marked; Lymphocytes # (A) 0.7 k/uL (1.0-4.8); Lymphocytes % (A) 6 %; MCH 28.4 pg (25.0-35.0); MCHC 30.9 g/dL (31.0-37.0); MCV 92.1 fL (80.0-100.0); Mean Platelet Volume 8.1; Monocytes # (A) 0.7 k/uL (0-1.0); Monocytes % (A) 7 %; Neutrophils % (A) 79 %; Platelet Count 255 k/uL (150-450); Poikilocytosis Slight; RBC 2.95 m/uL (4.30-5.90); RDW 17.8 % (11.5-15.5); WBC 11.4 k/uL (3.8-10.6)
== END | disposition home or self-care (01) ==
LOC: LABWHC1 16:01
PROVIDERS: ATTEND Family Medicine
DX: K86.0 Alcohol-induced chronic pancreatitis (principal); D62 Acute posthemorrhagic anemia; I85.01 Esophageal varices with bleeding
CPT/HCPCS: 36415; 80051; 82140; 82247; 84155; 84450; 84460; 85025

== ENCOUNTER 2018-09-13 21:18 | Inpatient (IN) | payer OTHER ==
[2018-09-13] MEDS ORDERED: OCTREOTIDE 100 MCG/ML INJ IVP STA (21:35)
[2018-09-13] MEDS ORDERED: PANTOPRAZOLE 40 MG/10 ML VIAL IVP ONE (21:36)
--- NOTE | 2018-09-13 21:55 | ED ---
General Adult HPI - General Chief complaint: GI Bleed Stated complaint: SOB, coughing blood Time Seen by Provider: 09/13/18 21:30 Source: patient Mode of arrival: ambulatory Limitations: no limitations - History of Present Illness Initial comments: Dictation was produced using [email or web address] dictation software. please excuse any grammatical, word or spelling errors. Chief Complaint: 43-year-old male presents with hematemesis. History of Present Illness: Patient is a 43-year-old male presents with chief complaint of hematemesis. Patient states his hematemesis started approximately 1 hour prior to arrival. Patient was told that he has a history of esophageal varices. Approximately 2 weeks ago patient had a EGD with findings of esophageal varices. Patient had banding performed. Patient was admitted to the hospital for approximately one week discharge and stable medical condition. Patient reports that he was vomiting bright red blood The ROS documented in this emergency department record has been reviewed and confirmed by me. Those systems with pertinent positive or negative responses have been documented in the HPI. All other systems are other negative and/or noncontributory. PHYSICAL EXAM: General Impression: Alert and oriented x3, not in acute distress HEENT: Normocephalic atraumatic, extra-ocular movements intact, pupils equal and reactive to light bilaterally, mucous membranes moist, blood in the oropharynx Cardiovascular: Heart regular rate and rhythm, S1&S2 audible, no murmurs, rubs or gallops Chest: Lungs clear to auscultation bilaterally, no rhonchi, no wheeze, no rales Abdomen: Distended abdomen with caput medusa, positive fluid wave Musculoskeletal: Pulses present and equal in all extremities, no peripheral edema Motor: no focal deficits noted Neurological: CN II-XII grossly intact, no focal motor or sensory deficits noted Skin: Jaundiced and icteric ED course: 43-year-old male presents with hematemesis. Has a history of esophageal varices vital signs upon arrival shows heart rate of 120, rest of vital signs within acceptable limits. While in the emergency department patient had only one episode of mild hematemesis. Otherwise patient otherwise has been stable. He does have mild leukocytosis of 15.3. Hemoccult 6.6. Slightly coagulopathic with INR 1.3. Patient's mildly acidotic. Lactacidosis 2.2. Rest metabolic panel is unremarkable. KUB x-ray shows no acute disease however there is some subtle groundglass opacities and left upper and lower lobes. Patient denies any URI, respiratory or coughing symptoms. Given patient's known history of esophageal varices is concerned that patient didn't decompensate quickly. I believe patient benefit from intensive care unit admission.. Patient case was Dominique who agrees that patient would benefit from intensive care unit admission. Discussed patient case with Dr. Isbell who is willing to accept the admission. Discussed patient case with Dr. Harrington who is aware of patient. He agrees with Protonix, octreotide and medical resuscitation. Marketing Strategist does not want NG tube placed at this time. Patient clinical stable at time of disposition patient clear for transfer to ICU. EKG interpretation: Ventricular rate orally, sinus tachycardia, OR interval 136, QS 82, QTc 469. No OR prolongation, no QTC prolongation, no ST or T-wave changes noted. Overall, this EKG is unremarkable - Related Data Home Medications Medication Instructions Recorded Confirmed Folic Acid 1 mg PO DAILY@1200 09/01/17 09/13/18 Propranolol [Inderal] 10 mg PO TID 08/30/18 09/13/18 Albuterol Inhaler [Ventolin Hfa 2 puff INHALATION RT-Q6H PRN 09/13/18 09/13/18 Inhaler] Lasix Unknown Dose 1 tab PO DAILY 09/13/18 09/13/18 Previous Rx's Medication Instructions Recorded Multivitamins, Thera [Multivitamin 1 tab PO DAILY #30 tablet 09/03/17 (formulary)] Thiamine [Vitamin B-1] 100 mg PO DAILY #30 tablet 09/03/17 Lactulose [Cephulac] 20 gm PO TID #900 ml 09/06/18 Pantoprazole [Protonix] 40 mg PO BID #60 tablet. 09/06/18 Allergies Allergy/AdvReac Type Severity Reaction Status Date / Time No Known Allergies Allergy Verified 09/13/18 21:56 Review of Systems ROS Statement: Those systems with pertinent positive or pertinent negative responses have been documented in the HPI. ROS Other: All systems not noted in ROS Statement are negative. Past Medical History Past Medical History: Asthma, GI Bleed, Liver Disease, Pneumonia Additional Past Medical History / Comment(s): ETOH abuse, liver cirrhosis, abdominal ascites, pancreatitis, multiple gallstones, nephrolithiasis, chronic anemia, esophageal varices, hx urinating blood and kidneys stone History of Any Multi-Drug Resistant Organisms: MRSA Date of last positivie culture/infection: 12/09/2013 MDRO Source:: Right first finger Past Surgical History: Appendectomy, Cholecystectomy, Orthopedic Surgery Additional Past Surgical History / Comment(s): 07/09/17 EGD/colonoscopy, paracentesis, right hand tendon repair, right knee arthroscopy, cystoscopy for kidney stone removal, right hand ring finger surgery. Past Anesthesia/Blood Transfusion Reactions: Previous Problems w/ Anesthesia Additional Past Anesthesia/Blood Transfusion Reaction / Comment(s): Woke up during scope procedure. Past Psychological History: PTSD Smoking Status: Current every day smoker Past Alcohol Use History: Abuse, Daily Past Drug Use History: Marijuana - Past Family History Mother Family Medical History: Hypertension Father Additional Family Medical History / Comment(s): Prostate issues. Brain aneurysm. General Exam Limitations: no limitations Course Vital Signs 09/13/18 09/13/18 21:22 21:45 Temperature 98.1 F Pulse Rate 120 H 113 H Respiratory 22 12 Rate Blood Pressure 107/54 118/75 O2 Sat by Pulse 98 95 Oximetry Medical Decision Making - Lab Data Result diagrams: 09/13/18 21:38 09/13/18 21:38 Lab Results 09/13/18 09/13/18 09/13/18 Range/Units 21:38 21:38 21:38 WBC 15.3 H (3.8-10.6) k/uL RBC 2.37 L (4.30-5.90) m/uL Hgb 6.6 L* D (13.0-17.5) gm/dL Hct 21.1 L (39.0-53.0) % MCV 88.9 (80.0-100.0) fL MCH 27.9 (25.0-35.0) pg MCHC 31.3 (31.0-37.0) g/dL RDW 17.9 H (11.5-15.5) % Plt Count 290 (150-450) k/uL Neutrophils % NEIGHBORHOOD AIDE Lymphocytes % NEIGHB[employer] AIDE Monocytes % NE[employer]HB[employer] AIDE Eosinophils % [place] A[employer] Basophils % NE[place] Neutrophils # [place] Lymphocytes # [place] [employer] Monocytes # [place] A[employer] Eosinophils # [place] A[employer] Basophils # NE[place]HB[place]OD AIDE Hypochromasia Marked Poikilocytosis Slight Anisocytosis Slight PT (9.0-12.0) sec INR (<1.2) Sodium 136 L (137-145) mmol/L Potassium 4.6 (3.5-5.1) mmol/L Chloride 109 H (98-107) mmol/L Carbon Dioxide 18 L (22-30) mmol/L Anion Gap 9 mmol/L BUN 11 (9-20) mg/dL Creatinine 0.66 (0.66-1.25) mg/dL Est GFR (CKD-EPI)AfAm >90 (>60 ml/min/1.73 sqM) Est GFR (CKD-EPI)NonAf >90 (>60 ml/min/1.73 sqM) Glucose 114 H (74-99) mg/dL POC Glucose (mg/dL) (75-99) mg/dL POC Glu School Office Manager ID Plasma Lactic Acid Balaji (0.7-2.0) mmol/L Calcium 7.6 L (8.4-10.2) mg/dL Magnesium 1.7 (1.6-2.3) mg/dL Total Bilirubin 1.1 (0.2-1.3) mg/dL Conjugated Bilirubin 0.0 (0.0-0.3) mg/dL Unconjugated Bilirubin 0.8 (0.0-1.1) mg/dL Delta Bilirubin 0.3 H (0.0-0.2) mg/dL AST 57 (17-59) U/L ALT 31 (21-72) U/L Alkaline Phosphatase 97 (38-126) U/L Ammonia (<30) umol/L Total Protein 5.0 L (6.3-8.2) g/dL Albumin 2.3 L (3.5-5.0) g/dL Lipase 175 (23-300) U/L Blood Type A Negative Blood Type Recheck No Antibody Screen POSITIVE Antibody Identification Anti-S Direct Antiglob Test Negative Crossmatch See Detail Spec Expiration Date 09/16/2018 [id number] 09/13/18 09/13/18 09/13/18 Range/Units 21:38 22:00 22:00 WBC (3.8-10.6) k/uL RBC (4.30-5.90) m/uL Hgb (13.0-17.5) gm/dL Hct (39.0-53.0) % MCV (80.0-100.0) fL MCH (25.0-35.0) pg MCHC (31.0-37.0) g/dL RDW (11.5-15.5) % Plt Count (150-450) k/uL Neutrophils % Lymphocytes % Monocytes % Eosinophils % Basophils % Neutrophils # Lymphocytes # Monocytes # Eosinophils # Basophils # Hypochromasia Poikilocytosis Anisocytosis PT 12.9 H (9.0-12.0) sec INR 1.3 H (<1.2) Sodium (137-145) mmol/L Potassium (3.5-5.1) mmol/L Chloride (98-107) mmol/L Carbon Dioxide (22-30) mmol/L Anion Gap mmol/L BUN (9-20) mg/dL Creatinine (0.66-1.25) mg/dL Est GFR (CKD-EPI)AfAm (>60 ml/min/1.73 sqM) Est GFR (CKD-EPI)NonAf (>60 ml/min/1.73 sqM) Glucose (74-99) mg/dL POC Glucose (mg/dL) 148 H (75-99) mg/dL POC Glu School Office Manager ID Melody Ceja Plasma Lactic Acid Balaji 2.2 H* (0.7-2.0) mmol/L Calcium (8.4-10.2) mg/dL Magnesium (1.6-2.3) mg/dL Total Bilirubin (0.2-1.3) mg/dL Conjugated Bilirubin (0.0-0.3) mg/dL Unconjugated Bilirubin (0.0-1.1) mg/dL Delta Bilirubin (0.0-0.2) mg/dL AST (17-59) U/L ALT (21-72) U/L Alkaline Phosphatase (38-126) U/L Ammonia 42 H (<30) umol/L Total Protein (6.3-8.2) g/dL Albumin (3.5-5.0) g/dL Lipase (23-300) U/L Blood Type Blood Type Recheck Antibody Screen Antibody Identification Direct Antiglob Test Crossmatch Spec Expiration Date Critical Care Time Critical Care Time: Yes Total Critical Care Time: 31 Disposition Clinical Impression: GI bleed Disposition: ADMITTED IP TO THIS [facility] Condition: Critical Referrals: James Meza Jr, DO [Primary Care Provider] - 1-2 days Decision Time: 00:20
[2018-09-13 22:02] LABS: Glucose,Whole Blood 148 mg/dL (75-99)
[2018-09-13 22:14] LABS: INR 1.3 (<1.2); Prothrombin Time 12.9 sec (9.0-12.0)
[2018-09-13 22:18] LABS: ALT 31 U/L (21-72); AST 57 U/L (17-59); Albumin 2.3 g/dL (3.5-5.0); Alkaline Phosphatase 97 U/L (38-126); Anion Gap 9 mmol/L; Bilirubin, Delta 0.3 mg/dL (0.0-0.2); Bilirubin,Unconjugated 0.8 mg/dL (0.0-1.1); Blood Urea Nitrogen 11 mg/dL (9-20); Calcium 7.6 mg/dL (8.4-10.2); Carbon Dioxide 18 mmol/L (22-30); Chloride 109 mmol/L (98-107); Glucose 114 mg/dL (74-99); Lipase 175 U/L (23-300); Magnesium 1.7 mg/dL (1.6-2.3); Potassium 4.6 mmol/L (3.5-5.1); Sodium 136 mmol/L (137-145); Total Bilirubin 1.1 mg/dL (0.2-1.3)
[2018-09-13] MEDS ORDERED: MORPHINE SULFATE 4 MG/ML SYRINGE IVP STA (22:22)
[2018-09-13] MEDS ORDERED: ONDANSETRON 4 MG/2 ML VIAL IVP STA (22:22)
[2018-09-13 22:28] LABS: Lactic Acid, Venous 2.2 mmol/L (0.7-2.0)
[2018-09-13 22:51] LABS: Anisocytosis Slight; HCT 21.1 % (39.0-53.0); Hypochromasia Marked; MCH 27.9 pg (25.0-35.0); MCHC 31.3 g/dL (31.0-37.0); MCV 88.9 fL (80.0-100.0); Mean Platelet Volume 8.5; Platelet Count 290 k/uL (150-450); Poikilocytosis Slight; RBC 2.37 m/uL (4.30-5.90); RDW 17.9 % (11.5-15.5); WBC 15.3 k/uL (3.8-10.6)
[2018-09-13 23:07] LABS: HGB 6.6 gm/dL (13.0-17.5)
--- NOTE | 2018-09-13 23:20 | XR ---
EXAM: XR Abdomen 2 Views With XR Chest CLINICAL HISTORY: ITS.REASON XR Reason: Pain TECHNIQUE: Frontal view of the chest, frontal view of the abdomen/pelvis and upright or decubitus view of the abdomen. COMPARISON: No relevant prior studies available. FINDINGS: Lungs: Question subtle groundglass opacities involving the left upper and lower lobes. Correlate clinically to exclude infectious etiology. Scarring or subsegmental atelectasis at the periphery of the right lower lobe. Pleural space: Unremarkable. No pneumothorax. Heart: Unremarkable. No cardiomegaly. Mediastinum: Unremarkable. Intraperitoneal space: No free intraperitoneal air. Gastrointestinal tract: No bowel obstruction. Scattered stool in the right colon. Organs: Prior cholecystectomy. Bones/joints: Unremarkable. IMPRESSION: No acute abdominopelvic disease or bowel obstruction. Question subtle groundglass opacities involving the left upper and lower lobes. Correlate clinically to exclude infectious etiology.
[2018-09-13] MEDS ORDERED: OCTREOTIDE 50 MCG in SODIUM CHLORIDE 0.9% 100 ML IVPB SCH (23:45)
[2018-09-14] MEDS ORDERED: NICOTINE 21MG/24HR PATCH TRANSDERM STA (00:11)
[2018-09-14] MEDS ORDERED: NALOXONE 0.4 MG/ML 1 ML VIAL IV PRN (00:21)
[2018-09-14] MEDS: OCTREOTIDE 500 MCG in SODIUM CHLORIDE 0.9% 250 ML IVPB SCH ×3 (00:25→20:48)
[2018-09-14 00:34] LABS: Band Neutrophils % 7 %; Eosinophils # (M) 0.31 k/uL (0-0.7); Lymphocytes # (M) 1.99 k/uL (1.0-4.8); Monocytes # (M) 0.92 k/uL (0-1.0); Neutrophils % (M) 72 %; Nucleated Red Blood Cells 0 /100 WBC (0-0); Total Cells Counted 100
[2018-09-14 00:35] LABS: Ovalocytes Present
[2018-09-14 00:36] LABS: Polychromasia Present
[2018-09-14 00:38] LABS: RBC Fragments Present
[2018-09-14] MEDS: SODIUM CHLORIDE 0.9% 1,000 ML IV SCH ×3 (00:41→20:49)
[2018-09-14] MEDS: MORPHINE SULFATE 2 MG/ML SYRINGE IV PRN ×7 (00:55→23:07)
[2018-09-14 01:35] LABS: Glucose,Whole Blood 145 mg/dL (75-99)
[2018-09-14] MEDS ORDERED: ONDANSETRON 4 MG/2 ML VIAL IVP PRN (01:44)
[2018-09-14 05:18] LABS: ALT 27 U/L (21-72); AST 61 U/L (17-59); Albumin 1.9 g/dL (3.5-5.0); Alkaline Phosphatase 65 U/L (38-126); Anion Gap 8 mmol/L; Blood Urea Nitrogen 11 mg/dL (9-20); Carbon Dioxide 13 mmol/L (22-30); Chloride 115 mmol/L (98-107); Glucose 103 mg/dL (74-99); Magnesium 1.4 mg/dL (1.6-2.3); Phosphorus 3.9 mg/dL (2.5-4.5); Sodium 136 mmol/L (137-145); Total Bilirubin 1.5 mg/dL (0.2-1.3); Total Protein 4.3 g/dL (6.3-8.2)
[2018-09-14 05:39] LABS: INR 1.4 (<1.2); Partial Thromboplastin Time 29.3 sec (22.0-30.0)
[2018-09-14 05:53] LABS: Appearance,Urine Clear (Clear); Bilirubin,Urine Negative (Negative); Blood,Urine Moderate (Negative); Color,Urine Yellow; Glucose,Urine (UA) Negative (Negative); Hyaline Casts,Urine 26 /lpf (0-2); Ketones,Urine Negative (Negative); Leukocyte Esterase,Urine Negative (Negative); Mucus,Urine Rare /hpf; Nitrite,Urine Negative (Negative); PH, Urine 5.5 (5.0-8.0); Protein,Urine Negative (Negative); RBC,Urine 29 /hpf (0-5); Specific Gravity,Urine 1.014 (1.001-1.035); Squamous Epithelial Cell,Urine <1 /hpf (0-4); Urobilinogen,Urine <2.0 mg/dL (<2.0)
[2018-09-14 06:14] LABS: Calcium 6.3 mg/dL (8.4-10.2); Potassium 5.9 mmol/L (3.5-5.1)
[2018-09-14] MEDS ORDERED: Magnesium Replacement Protocol 1 EACH MISC MISCELLANE PRN (06:27)
[2018-09-14 07:10] LABS: Anisocytosis Slight; Basophils # (A) 0.1 k/uL (0-0.2); Basophils % (A) 1 %; Eosinophils # (A) 0.1 k/uL (0-0.7); Eosinophils % (A) 0 %; HGB 7.4 gm/dL (13.0-17.5); Hypochromasia Marked; Lymphocytes # (A) 1.1 k/uL (1.0-4.8); Lymphocytes % (A) 5 %; MCH 27.7 pg (25.0-35.0); MCHC 30.7 g/dL (31.0-37.0); MCV 90.2 fL (80.0-100.0); Mean Platelet Volume 8.2; Monocytes # (A) 0.9 k/uL (0-1.0); Monocytes % (A) 4 %; Neutrophils # (A) 19.6 k/uL (1.3-7.7); Neutrophils % (A) 89 %; Platelet Count 256 k/uL (150-450); Poikilocytosis Moderate; RBC 2.66 m/uL (4.30-5.90); RDW 17.1 % (11.5-15.5); WBC 22.1 k/uL (3.8-10.6)
[2018-09-14] MEDS: MAGNESIUM SULFATE-D5W PMX 1 GM in DEXTROSE/WATER 1 100ML.BAG IVPB SCH ×2 (07:18→08:33)
[2018-09-14 07:31] LABS: ALT 36 U/L (21-72); AST 57 U/L (17-59); Albumin 2.1 g/dL (3.5-5.0); Alkaline Phosphatase 83 U/L (38-126); Anion Gap 7 mmol/L; Blood Urea Nitrogen 14 mg/dL (9-20); Calcium 6.9 mg/dL (8.4-10.2); Carbon Dioxide 18 mmol/L (22-30); Chloride 111 mmol/L (98-107); Glucose 119 mg/dL (74-99); Sodium 136 mmol/L (137-145); Total Bilirubin 1.8 mg/dL (0.2-1.3); Total Protein 4.5 g/dL (6.3-8.2)
[2018-09-14] MEDS: PANTOPRAZOLE 40 MG/10 ML VIAL IVP SCH ×2 (08:34→20:54)
--- NOTE | 2018-09-14 08:47 | XR ---
EXAMINATION TYPE: XR chest 1V DATE OF EXAM: 09/14/2018 COMPARISON: 09/13/2018 HISTORY: Pain TECHNIQUE: Single frontal view of the chest is obtained. FINDINGS: There is patchy left upper lobe areas of consolidation. No pleural effusion. Subsegmental changes at the lung bases. No pneumothorax. Heart size stable. Arthropathy of the shoulders. IMPRESSION: Patchy left perihilar infiltrate correlate for pneumonitis or pneumonia. Asymmetric inte rstitial venous congestion less likely consideration.
[2018-09-14] MEDS ORDERED: INSULIN REGULAR 100 UNIT/ML VIAL IV ONE (09:35)
[2018-09-14] MEDS ORDERED: DEXTROSE 50% SYRINGE 50 ML IVP STA (09:37)
[2018-09-14] MEDS ORDERED: SODIUM BICARB 8.4% 50 ML SYR (1 MEQ/ML) IV STA (09:38)
--- NOTE | 2018-09-14 09:40 | P.CONS ---
History of Present Illness - Reason for Consult Consult date: 09/14/18 GI bleed Requesting physician: Aristeo Fox - Chief Complaint Hematemesis - History of Present Illness 43-year-old male alcohol liver cirrhosis esophageal varices portal hypertension and ascites with history of GI bleeds. Patient was just hospitalized and discharged week ago secondary to an acute upper GI bleed secondary to esophageal varices. He underwent EGD colonoscopy evaluation 08/31/2018 with esophageal banding 4. Colonoscopy was aborted due to poor prep internal hemorrhoids were seen. Patient presented last night with gross hematemesis multiple times with melena. Reports increased abdominal distention discomfort. No fevers. Paracentesis performed on last admission 5 L removed cytology negative. Patient drank alcohol on Wednesday night small bowel of vodka was found in his pant pocket on admission. Serum alcohol 99. Previous admission patient was not compliant with taking his prescribed medications such as Inderal and Protonix. Admission hemoglobin 6.6 previously 7.4. MCV 88. Platelet 290. INR 1.4. White count 15.3. BUN 14. Creatinine 0.7. Potassium 6.0. Sodium 136. Chest x-ray left perihilar infiltrate correlate for pneumonitis or pneumonia. Abdominal x- ray no acute abdominal pelvic disease or bowel obstruction. Total bilirubin 1.8. AST 57. ALT 36. AP 83. Ammonia 57. AFP June 2018 3.2. Hepatitis screen May 2018 nonreactive. Review of Systems Constitutional: Denies fever, chills, sweats, weight gain, or loss. HEENT: Negative for migraines, blurred vision or loss, earaches, drainage, tinnitus, oral mucosal lesions, dysphagia, or odynophagia. Cardiac: Negative for chest pain, arrhythmias, or palpitation. Respiratory: Negative for shortness of breath, hemoptysis, cough, or sputum production. Gastrointestinal: See HPI for pertinent findings. Genitourinary: Negative for hematuria, urgency, frequency, polyuria, dysuria, or penile discharge. Musculoskeletal: Negative for muscle aches, swelling, arthritis, and arthralgias. Neurologic: Negative for stroke or TIA. Endocrine: Negative for thyroid problems. Skin: Negative for rash or itching. Psychiatric: Negative history for depression and anxiety Past Medical History Past Medical History: Asthma, GI Bleed, Liver Disease, Pneumonia Additional Past Medical History / Comment(s): ETOH abuse, liver cirrhosis, abdominal ascites, pancreatitis, multiple gallstones, nephrolithiasis, chronic anemia, esophageal varices, hx urinating blood and kidneys stone History of Any Multi-Drug Resistant Organisms: MRSA Year Discovered:: 12/09/2013 MDRO Source:: Right first finger Past Surgical History: Appendectomy, Cholecystectomy, Orthopedic Surgery Additional Past Surgical History / Comment(s): 07/09/17 EGD/colonoscopy, pa racentesis, right hand tendon repair, right knee arthroscopy, cystoscopy for kidney stone removal, right hand ring finger surgery. Past Anesthesia/Blood Transfusion Reactions: Previous Problems w/ Anesthesia Additional Past Anesthesia/Blood Transfusion Reaction / Comm: Woke up during scope procedure. Past Psychological History: PTSD Additional Psychological History / Comment(s): PT currently resides at parent's house with his significant other. Smoking Status: Current every day smoker Past Alcohol Use History: Abuse, Daily Additional Past Alcohol Use History / Comment(s): Pt states he started smoking in 1983 and is a ppd smoker. PT states reduced the amount of alcohol to a few days a week, drinking 2-3 drinks on those occasions. Pt states used to drink a fifth or 1/2 gallon and some beers daily. Past Drug Use History: Marijuana Additional Drug Use History / Comment(s): Pt states he smokes marijuana on occasion. No other drug use. - Past Family History Mother Family Medical History: Hypertension Father Additional Family Medical History / Comment(s): Prostate issues. Brain aneurysm. Medications and Allergies Home Medications Medication Instructions Recorded Confirmed Type Folic Acid 1 mg PO DAILY@1200 09/01/17 09/13/18 History Multivitamins, Thera [Multivitamin 1 tab PO DAILY #30 tablet 09/03/17 09/13/18 Rx (formulary)] Thiamine [Vitamin B-1] 100 mg PO DAILY #30 tablet 09/03/17 09/13/18 Rx Propranolol [Inderal] 10 mg PO TID 08/30/18 09/13/18 History Lactulose [Cephulac] 20 gm PO TID #900 ml 09/06/18 09/13/18 Rx Pantoprazole [Protonix] 40 mg PO BID #60 tablet. 09/06/18 09/13/18 Rx Albuterol Inhaler [Ventolin Hfa 2 puff INHALATION RT-Q6H PRN 09/13/18 09/13/18 History Inhaler] Furosemide [Lasix] 20 mg PO DAILY 09/14/18 09/14/18 History Allergies Allergy/AdvReac Type Severity Reaction Status Date / Time No Known Allergies Allergy Verified 09/13/18 21:56 Physical Exam Vitals: Vital Signs Temp Pulse Resp BP Pulse Ox 09/14/18 08:06 98.7 F 110 H 12 106/83 96 09/14/18 07:36 98.7 F 111 H 13 112/73 96 09/14/18 07:26 98.9 F 112 H 20 99/72 96 09/14/18 07:00 112 H 13 116/71 96 09/14/18 06:54 97.8 F 107 H 24 107/64 96 09/14/18 06:00 113 H 17 108/77 96 09/14/18 05:10 97.8 F 112 H 30 H 103/69 95 09/14/18 05:00 97.9 F 118 H 32 H 117/66 93 L 09/14/18 04:00 98.0 F 117 H 9 L 105/70 95 09/14/18 03:00 117 H 20 108/65 96 09/14/18 02:21 98.5 F 120 H 20 122/65 91 L 09/14/18 02:00 116 H 24 111/61 91 L 09/14/18 01:25 98.8 F 110 H 13 111/61 95 09/14/18 01:00 114 H 12 116/63 99 09/14/18 00:47 98.7 F 124 H 18 116/63 97 09/14/18 00:45 120 H 25 H 105/66 99 09/14/18 00:37 98.6 F 122 H 16 105/66 99 09/14/18 00:32 98.6 F 122 H 16 105/66 99 09/14/18 00:30 116 H 17 102/82 99 09/14/18 00:27 117 H 13 102/82 99 09/14/18 00:15 116 H 19 102/82 98 09/14/18 00:00 121 H 12 158/81 97 09/13/18 23:45 121 H 10 L 158/81 99 09/13/18 23:30 118 H 17 106/74 99 09/13/18 23:15 124 H 15 112/100 99 09/13/18 23:00 114 H 13 123/59 100 09/13/18 22:45 16 114/72 09/13/18 22:30 116 H 16 114/72 09/13/18 22:15 110 H 14 110/72 09/13/18 22:00 112 H 18 121/83 09/13/18 21:45 113 H 12 118/75 95 09/13/18 21:22 98.1 F 120 H 22 107/54 98 Intake and Output 09/13/18 09/14/18 09/14/18 22:59 06:59 14:59 Intake Total 1245 0 Output Total 2225 Balance -980 0 Intake: IV 625 Octreotide 500 mcg In 125 Sodium Chloride 0.9% 250 ml @ 25.2 mls/hr IVPB Q10H RADHA Rx#:[id number] Sodium Chloride 0.9% 1, 500 000 ml @ 100 mls/hr IV . Q10H RADHA Rx#:[id number] Blood Product 620 0 Rc As-1 Unit 310 [id number] Rc As-1 Unit 0 [id number] Rc As-1 Unit 310 [id number] Output: Urine 275 Emesis 1950 Other: Voiding Method Indwelling Catheter Weight 100.153 kg 99.8 kg General appearance: The patient is alert, oriented, reporting abdominal discomfort. HET: Head is normocephalic and atraumatic. Pupils are equal and reactive. Oropharynx is visible with old blood. Neck: Supple without lymphadenopathy. Trachea midline. Heart: S1 S2. Regular rate and rhythm. Lungs: No crackles or wheezes are heard. Abdomen: Soft, distended with ascites mildly tender with bowel sounds. No vincent toneal signs. No palpable organomegaly or masses. Extremities: Normal skin color and turgor. No cyanosis, rash, ulceration, clubbing, or edema. Radial and pedal pulses are 2/4 bilaterally. Neurological: No focal deficits. Strength and sensation are grossly intact. Results CBC & Chem 7: 09/14/18 06:54 09/14/18 06:54 Labs: Abnormal Lab Results - Last 24 Hours (Table) 09/13/18 09/13/18 09/13/18 Range/Units 21:38 21:38 21:38 WBC 15.3 H (3.8-10.6) k/uL RBC 2.37 L (4.30-5.90) m/uL Hgb 6.6 L* D (13.0-17.5) gm/dL Hct 21.1 L (39.0-53.0) % MCHC (31.0-37.0) g/dL RDW 17.9 H (11.5-15.5) % Neutrophils # (1.3-7.7) k/uL Neutrophils # (Manual) 12.00 H (1.3-7.7) k/uL PT (9.0-12.0) sec INR (<1.2) Sodium 136 L (137-145) mmol/L Potassium (3.5-5.1) mmol/L Chloride 109 H (98-107) mmol/L Carbon Dioxide 18 L (22-30) mmol/L Creatinine (0.66-1.25) mg/dL Glucose 114 H (74-99) mg/dL POC Glucose (mg/dL) (75-99) mg/dL Plasma Lactic Acid Balaji (0.7-2.0) mmol/L Calcium 7.6 L (8.4-10.2) mg/dL Magnesium (1.6-2.3) mg/dL Total Bilirubin (0.2-1.3) mg/dL Delta Bilirubin 0.3 H (0.0-0.2) mg/dL AST (17-59) U/L Ammonia (<30) umol/L Total Protein 5.0 L (6.3-8.2) g/dL Albumin 2.3 L (3.5-5.0) g/dL Urine Blood (Negative) Urine RBC (0-5) /hpf Hyaline Casts (0-2) /lpf Urine Mucus (None) /hpf Crossmatch See Detail 09/13/18 09/13/18 09/13/18 Range/Units 21:38 22:00 22:00 WBC (3.8-10.6) k/uL RBC (4.30-5.90) m/uL Hgb (13.0-17.5) gm/dL Hct (39.0-53.0) % MCHC (31.0-37.0) g/dL RDW (11.5-15.5) % Neutrophils # (1.3-7.7) k/uL Neutrophils # (Manual) (1.3-7.7) k/uL PT 12.9 H (9.0-12.0) sec INR 1.3 H (<1.2) Sodium (137-145) mmol/L Potassium (3.5-5.1) mmol/L Chloride (98-107) mmol/L Carbon Dioxide (22-30) mmol/L Creatinine (0.66-1.25) mg/dL Glucose (74-99) mg/dL POC Glucose (mg/dL) 148 H (75-99) mg/dL Plasma Lactic Acid Balaji 2.2 H* (0.7-2.0) mmol/L Calcium (8.4-10.2) mg/dL Magnesium (1.6-2.3) mg/dL Total Bilirubin (0.2-1.3) mg/dL Delta Bilirubin (0.0-0.2) mg/dL AST (17-59) U/L Ammonia 42 H (<30) umol/L Total Protein (6.3-8.2) g/dL Albumin (3.5-5.0) g/dL Urine Blood (Negative) Urine RBC (0-5) /hpf Hyaline Casts (0-2) /lpf Urine Mucus (None) /hpf Crossmatch 09/14/18 09/14/18 09/14/18 Range/Units 01:22 01:55 04:30 WBC (3.8-10.6) k/uL RBC (4.30-5.90) m/uL Hgb (13.0-17.5) gm/dL Hct (39.0-53.0) % MCHC (31.0-37.0) g/dL RDW (11.5-15.5) % Neutrophils # (1.3-7.7) k/uL Neutrophils # (Manual) (1.3-7.7) k/uL PT (9.0-12.0) sec INR (<1.2) Sodium (137-145) mmol/L Potassium (3.5-5.1) mmol/L Chloride (98-107) mmol/L Carbon Dioxide (22-30) mmol/L Creatinine (0.66-1.25) mg/dL Glucose (74-99) mg/dL POC Glucose (mg/dL) 145 H (75-99) mg/dL Plasma Lactic Acid Balaji 3.0 H* (0.7-2.0) mmol/L Calcium (8.4-10.2) mg/dL Magnesium (1.6-2.3) mg/dL Total Bilirubin (0.2-1.3) mg/dL Delta Bilirubin (0.0-0.2) mg/dL AST (17-59) U/L Ammonia (<30) umol/L Total Protein (6.3-8.2) g/dL Albumin (3.5-5.0) g/dL Urine Blood Moderate H (Negative) Urine RBC 29 H (0-5) /hpf Hyaline Casts 26 H (0-2) /lpf Urine Mucus Rare H (None) /hpf Crossmatch 09/14/18 09/14/18 09/14/18 Range/Units 04:38 04:40 04:42 WBC (3.8-10.6) k/uL RBC (4.30-5.90) m/uL Hgb (13.0-17.5) gm/dL Hct (39.0-53.0) % MCHC (31.0-37.0) g/dL RDW (11.5-15.5) % Neutrophils # (1.3-7.7) k/uL Neutrophils # (Manual) (1.3-7.7) k/uL PT 14.0 H (9.0-12.0) sec INR 1.4 H (<1.2) Sodium 136 L (137-145) mmol/L Potassium 5.9 H (3.5-5.1) mmol/L Chloride 115 H (98-107) mmol/L Carbon Dioxide 13 L (22-30) mmol/L Creatinine 0.64 L (0.66-1.25) mg/dL Glucose 103 H (74-99) mg/dL POC Glucose (mg/dL) (75-99) mg/dL Plasma Lactic Acid Balaji (0.7-2.0) mmol/L Calcium 6.3 L* (8.4-10.2) mg/dL Magnesium 1.4 L (1.6-2.3) mg/dL Total Bilirubin 1.5 H (0.2-1.3) mg/dL Delta Bilirubin (0.0-0.2) mg/dL AST 61 H (17-59) U/L Ammonia 57 H (<30) umol/L Total Protein 4.3 L (6.3-8.2) g/dL Albumin 1.9 L (3.5-5.0) g/dL Urine Blood (Negative) Urine RBC (0-5) /hpf Hyaline Casts (0-2) /lpf Urine Mucus (None) /hpf Crossmatch 09/14/18 09/14/18 Range/Units 06:54 06:54 WBC 22.1 H (3.8-10.6) k/uL RBC 2.66 L (4.30-5.90) m/uL Hgb 7.4 L (13.0-17.5) gm/dL Hct 24.0 L (39.0-53.0) % MCHC 30.7 L (31.0-37.0) g/dL RDW 17.1 H (11.5-15.5) % Neutrophils # 19.6 H (1.3-7.7) k/uL Neutrophils # (Manual) (1.3-7.7) k/uL PT (9.0-12.0) sec INR (<1.2) Sodium 136 L (137-145) mmol/L Potassium 6.0 H (3.5-5.1) mmol/L Chloride 111 H (98-107) mmol/L Carbon Dioxide 18 L (22-30) mmol/L Creatinine (0.66-1.25) mg/dL Glucose 119 H (74-99) mg/dL POC Glucose (mg/dL) (75-99) mg/dL Plasma Lactic Acid Balaji (0.7-2.0) mmol/L Calcium 6.9 L (8.4-10.2) mg/dL Magnesium (1.6-2.3) mg/dL Total Bilirubin 1.8 H (0.2-1.3) mg/dL Delta Bilirubin (0.0-0.2) mg/dL AST (17-59) U/L Ammonia (<30) umol/L Total Protein 4.5 L (6.3-8.2) g/dL Albumin 2.1 L (3.5-5.0) g/dL Urine Blood (Negative) Urine RBC (0-5) /hpf Hyaline Casts (0-2) /lpf Urine Mucus (None) /hpf Crossmatch Abdominal x-ray: report reviewed (Dr. Harrington) Assessment and Plan (1) Hematemesis Narrative/Plan: 43-year-old male admitted with acute blood loss anemia secondary to acute hematemesis GI bleed with underlying history of alcohol liver cirrhosis portal hypertension and esophageal varices. Actively drinking alcohol with history of medical noncompliance. Recent EGD colonoscopy for evaluation of GI bleed with findings of esophageal varices status post banding colonoscopy incomplete secondary to poor prep with evidence of internal hemorrhoids. Current Visit: No Status: Acute Code(s): K92.0 - HEMATEMESIS SNOMED Code(s): 3108067 (2) GI bleed Current Visit: Yes Status: Acute Code(s): K92.2 - GASTROINTESTINAL HEMORRHAGE, UNSPECIFIED SNOMED Code(s): 03424643 (3) Esophageal varices Current Visit: No Status: Acute Code(s): I85.00 - ESOPHAGEAL VARICES WITHOUT BLEEDING SNOMED Code(s): 81672767 (4) Acute blood loss anemia Current Visit: Yes Status: Acute Code(s): D62 - ACUTE POSTHEMORRHAGIC ANEMIA SNOMED Code(s): 068539126 (5) Chronic anemia Current Visit: No Status: Acute Code(s): D64.9 - ANEMIA, UNSPECIFIED SNOMED Code(s): 424380690 (6) Hyperkalemia Current Visit: Yes Status: Acute Code(s): E87.5 - HYPERKALEMIA SNOMED Code(s): 56019932 (7) Coagulopathy Current Visit: No Status: Acute Code(s): D68.9 - COAGULATION DEFECT, UNSPECIFIED SNOMED Code(s): 82550548 (8) History of alcohol abuse Current Visit: No Status: Acute Code(s): Z87.898 - PERSONAL HISTORY OF OTHER SPECIFIED CONDITIONS SNOMED Code(s): 356347108 (9) Hyperammonemia Current Visit: Yes Status: Acute Code(s): E72.20 - DISORDER OF UREA CYCLE METABOLISM, UNSPECIFIED SNOMED Code(s): 8490976 (10) Cirrhosis of liver with ascites Current Visit: Yes Status: Acute Code(s): K74.60 - UNSPECIFIED CIRRHOSIS OF LIVER; R18.8 - OTHER ASCITES SNOMED Code(s): 82108323 Plan: 1. Nothing by mouth. EGD. Rocephin 1 g every 24 SBP prophylaxis. CBC every 6 hours. Protonix 40 mm twice daily. Sandostatin infusion. Lactulose 20 g 3 times a day. Endo MDA Dr. Doyle aware of hyperkalemia; orders received for treatment. 2. Daily CBC CMP PT/INR ammonia. Possible paracentesis based on clinical course will reevaluate after EGD. Ultrasound abdomen in a.m. Alcohol abstinence was reinforced. The vehicle assembler has discussed the risks, benefits and alternative therapies for the above-mentioned procedure and for both sedation/analgesia as well as necessary blood product administration, if indicated, as they pertain to this patient. The patient has indicated understanding and acceptance of the risks and procedures discussed. Thank you for this kind referral and the opportunity to participate in the care of your patient. This consultation was discussed with Dr. Harrington. The impression and plan of care have been directed as dictated.
--- NOTE | 2018-09-14 11:21 | P.CNPUL ---
History of Present Illness Consult date: 09/14/18 Requesting physician: James Meza Jr Reason for consult: other Chief complaint: Hematemesis, melanotic stools, acute GI bleeding History of present illness: This is a 43-year-old white male patient of Dr. Meza, with the past medical history of liver cirrhosis related to alcohol abuse, recent history of GI bleeding requiring banding of the esophageal varices in June and again on 08/31/2018, when patient was hospitalized with severe blood loss anemia, requiring admission to the intensive care unit. Patient was discharged home, and he came back on on 09/13/2018 for evaluation of multiple episodes of hematemesis at home, and patient was passing some melanotic stools. Admission blood work showed a hemoglobin of 6.6, down from 8.4 on 09/09/2018, white blood cell count of 15.3, INR of 1.3, potassium 4.6, sodium 136, renal profile was within normal limits, plasma lactic acid was mildly elevated at 2.2, ammonia level was 42, and lipase was 175, urinalysis had some red blood cells in it, but negative for any signs of infection, occult stool was positive. Serum alcohol level was 99. During last admission his colonoscopy was aborted due to poor prep, and there were internal hemorrhoids seen. Note that the patient also underwent ultrasound-guided paracentesis on 09/05/2018 with removal of 5 L of ascitic fluid, and cytology was negative for bacteria or malignant cells. Cul tures were negative. No fever or chills, patient was started on IV fluids and 0.9 normal saline at a rate of 100 ML per hour, and he is being transfused with 3 units of packed red blood cells, and this morning his hemoglobin is 7.4. No vasopressor support, patient is awake and alert, he denies any difficulty breathing, no chest pain, his abdomen is distended, and there is some tenderness upon palpation across the upper abdomen. White blood cell count is up to 22.1, INR is 1.4, sodium is 136, potassium 6.0, CO2 was 18, BUN is 14, creatinine 0.72. Patient is nothing by mouth this morning, his been evaluated by the GI service who is planning on proceeding with the EGD this morning Review of Systems All systems: negative Constitutional: Denies chills, Denies fever Eyes: denies blurred vision, denies pain Ears, nose, mouth and throat: Denies headache, Denies sore throat Cardiovascular: Denies chest pain, Denies shortness of breath Respiratory: Denies cough Gastrointestinal: Reports abdominal pain, Reports bloating, Reports hematemesis, Reports melena, Denies diarrhea, Denies nausea, Denies vomiting Musculoskeletal: Denies myalgias Integumentary: Denies pruritus, Denies rash Neurological: Denies numbness, Denies weakness Psychiatric: Denies anxiety, Denies depression Endocrine: Denies fatigue, Denies weight change Past Medical History Past Medical History: Asthma, GI Bleed, Liver Disease, Pneumonia Additional Past Medical History / Comment(s): ETOH abuse, liver cirrhosis, abdominal ascites, pancreatitis, multiple gallstones, nephrolithiasis, chronic anemia, esophageal varices, hx urinating blood and kidneys stone History of Any Multi-Drug Resistant Organisms: MRSA Date of last positivie culture/infection: 12/09/2013 MDRO Source:: Right first finger Past Surgical History: Appendectomy, Cholecystectomy, Orthopedic Surgery Additional Past Surgical History / Comment(s): 07/09/17 EGD/colonoscopy, paracentesis, right hand tendon repair, right knee arthroscopy, cystoscopy for kidney stone removal, right hand ring finger surgery. Past Anesthesia/Blood Transfusion Reactions: Previous Problems w/ Anesthesia Additional Past Anesthesia/Blood Transfusion Reaction / Comment(s): Woke up during scope procedure. Past Psychological History: PTSD Additional Psychological History / Comment(s): PT currently resides at parent's house with his significant other. Smoking Status: Current every day smoker Past Alcohol Use History: Abuse, Daily Additional Past Alcohol Use History / Comment(s): Pt states he started smoking in 1983 and is a ppd smoker. PT states reduced the amount of alcohol to a few days a week, drinking 2-3 drinks on those occasions. Pt states used to drink a fifth or 1/2 gallon and some beers daily. Past Drug Use History: Marijuana Additional Drug Use History / Comment(s): Pt states he smokes marijuana on occasion. No other drug use. - Past Family History Mother Family Medical History: Hypertension Father Additional Family Medical History / Comment(s): Prostate issues. Brain aneurysm. Medications and Allergies Home Medications Medication Instructions Recorded Confirmed Type Folic Acid 1 mg PO DAILY@1200 09/01/17 09/13/18 History Multivitamins, Thera [Multivitamin 1 tab PO DAILY #30 tablet 09/03/17 09/13/18 Rx (formulary)] Thiamine [Vitamin B-1] 100 mg PO DAILY #30 tablet 09/03/17 09/13/18 Rx Propranolol [Inderal] 10 mg PO TID 08/30/18 09/13/18 History Lactulose [Cephulac] 20 gm PO TID #900 ml 09/06/18 09/13/18 Rx Pantoprazole [Protonix] 40 mg PO BID #60 tablet.dr 09/06/18 09/13/18 Rx Albuterol Inhaler [Ventolin Hfa 2 puff INHALATION RT-Q6H PRN 09/13/18 09/13/18 History Inhaler] Furosemide [Lasix] 20 mg PO DAILY 09/14/18 09/14/18 History Allergies Allergy/AdvReac Type Severity Reaction Status Date / Time No Known Allergies Allergy Verified 09/13/18 21:56 Physical Exam Vitals: Vital Signs Temp Pulse Resp BP Pulse Ox 09/14/18 08:06 98.7 F 110 H 12 106/83 96 09/14/18 07:36 98.7 F 111 H 13 112/73 96 09/14/18 07:26 98.9 F 112 H 20 99/72 96 09/14/18 07:00 112 H 13 116/71 96 09/14/18 06:54 97.8 F 107 H 24 107/64 96 09/14/18 06:00 113 H 17 108/77 96 09/14/18 05:10 97.8 F 112 H 30 H 103/69 95 09/14/18 05:00 97.9 F 118 H 32 H 117/66 93 L 09/14/18 04:00 98.0 F 117 H 9 L 105/70 95 09/14/18 03:00 117 H 20 108/65 96 09/14/18 02:21 98.5 F 120 H 20 122/65 91 L 09/14/18 02:00 116 H 24 111/61 91 L 09/14/18 01:25 98.8 F 110 H 13 111/61 95 09/14/18 01:00 114 H 12 116/63 99 09/14/18 00:47 98.7 F 124 H 18 116/63 97 09/14/18 00:45 120 H 25 H 105/66 99 09/14/18 00:37 98.6 F 122 H 16 105/66 99 09/14/18 00:32 98.6 F 122 H 16 105/66 99 09/14/18 00:30 116 H 17 102/82 99 09/14/18 00:27 117 H 13 102/82 99 09/14/18 00:15 116 H 19 102/82 98 09/14/18 00:00 121 H 12 158/81 97 09/13/18 23:45 121 H 10 L 158/81 99 09/13/18 23:30 118 H 17 106/74 99 09/13/18 23:15 124 H 15 112/100 99 09/13/18 23:00 114 H 13 123/59 100 09/13/18 22:45 16 114/72 09/13/18 22:30 116 H 16 114/72 09/13/18 22:15 110 H 14 110/72 09/13/18 22:00 112 H 18 121/83 09/13/18 21:45 113 H 12 118/75 95 09/13/18 21:22 98.1 F 120 H 22 107/54 98 Intake and Output 09/13/18 09/14/18 09/14/18 22:59 06:59 14:59 Intake Total 1245 375 Output Total 2225 175 Balance -980 200 Intake: IV 625 375 Magnesium Sulfate-D5w Pmx 200 1 gm In Dextrose/Water 1 100ml.bag @ 100 mls/hr IVPB Q1H RADHA Rx#: [id number] Octreotide 500 mcg In 125 75 Sodium Chloride 0.9% 250 ml @ 25.2 mls/hr IVPB Q10H RADHA Rx#:[id number] Sodium Chloride 0.9% 1, 500 100 000 ml @ 100 mls/hr IV . Q10H RADHA Rx#:[id number] Blood Product 620 0 Rc As-1 Unit 310 [id number] Rc As-1 Unit 0 [id number] Rc As-1 Unit 310 [id number] Output: Urine 275 175 Emesis 1950 Other: Voiding Method Indwelling Catheter Weight 100.153 kg 99.8 kg GENERAL EXAM: Alert, 43-year-old white male, in the mild amount of discomfort from abdominal distention, but no obvious distress, comfortable in no apparent distress. HEAD: Normocephalic/atraumatic. EYES: Normal reaction of pupils, equal size. Conjunctiva pink, sclera white. NOSE: Clear with pink turbinates. THROAT: No erythema or exudates. NECK: No masses, no JVD, no thyroid enlargement, no adenopathy. CHEST: No chest wall deformity. Symmetrical expansion. LUNGS: Equal air entry with no crackles, wheeze, rhonchi or dullness. CVS: Regular rate and rhythm, normal S1 and S2, no gallops, no murmurs, no rubs ABDOMEN: Soft, diffusely tender to palpation across the abdomen, abdomen is distended, bowel sounds 4. No hepatosplenomegaly, normal bowel sounds, no guarding or rigidity. EXTREMITIES: No clubbing, no edema, no cyanosis, 2+ pulses and upper and lower extremities. MUSCULOSKELETAL: Muscle strength and tone normal. SPINE: No scoliosis or deformity SKIN: No rashes CENTRAL NERVOUS SYSTEM: Alert and oriented -3. No focal deficits, tone is normal in all 4 extremities. PSYCHIATRIC: Alert and oriented -3. Appropriate affect. Intact judgment and insight. Results - Laboratory Findings CBC and BMP: 09/14/18 06:54 09/14/18 06:54 PT/INR, D-dimer PT 14.0 sec (9.0-12.0) H 09/14/18 04:38 INR 1.4 (<1.2) H 09/14/18 04:38 Abnormal lab findings: Abnormal Labs 09/13/18 09/13/18 09/13/18 21:38 21:38 21:38 WBC 15.3 H RBC 2.37 L Hgb 6.6 L* D Hct 21.1 L MCHC RDW 17.9 H Neutrophils # Neutrophils # (Manual) 12.00 H PT INR Sodium 136 L Potassium Chloride 109 H Carbon Dioxide 18 L Creatinine Glucose 114 H POC Glucose (mg/dL) Plasma Lactic Acid Balaji Calcium 7.6 L Magnesium Total Bilirubin Delta Bilirubin 0.3 H AST Ammonia Total Protein 5.0 L Albumin 2.3 L Urine Blood Urine RBC Hyaline Casts Urine Mucus Crossmatch See Detail 09/13/18 09/13/18 09/13/18 21:38 22:00 22:00 WBC RBC Hgb Hct MCHC RDW Neutrophils # Neutrophils # (Manual) PT 12.9 H INR 1.3 H Sodium Potassium Chloride Carbon Dioxide Creatinine Glucose POC Glucose (mg/dL) 148 H Plasma Lactic Acid Balaji 2.2 H* Calcium Magnesium Total Bilirubin Delta Bilirubin AST Ammonia 42 H Total Protein Albumin Urine Blood Urine RBC Hyaline Casts Urine Mucus Crossmatch 09/14/18 09/14/18 09/14/18 01:22 01:55 04:30 WBC RBC Hgb Hct MCHC RDW Neutrophils # Neutrophils # (Manual) PT INR Sodium Potassium Chloride Carbon Dioxide Creatinine Glucose POC Glucose (mg/dL) 145 H Plasma Lactic Acid Balaji 3.0 H* Calcium Magnesium Total Bilirubin Delta Bilirubin AST Ammonia Total Protein Albumin Urine Blood Moderate H Urine RBC 29 H Hyaline Casts 26 H Urine Mucus Rare H Crossmatch 09/14/18 09/14/18 09/14/18 04:38 04:40 04:42 WBC RBC Hgb Hct MCHC RDW Neutrophils # Neutrophils # (Manual) PT 14.0 H INR 1.4 H Sodium 136 L Potassium 5.9 H Chloride 115 H Carbon Dioxide 13 L Creatinine 0.64 L Glucose 103 H POC Glucose (mg/dL) Plasma Lactic Acid Balaji Calcium 6.3 L* Magnesium 1.4 L Total Bilirubin 1.5 H Delta Bilirubin AST 61 H Ammonia 57 H Total Protein 4.3 L Albumin 1.9 L Urine Blood Urine RBC Hyaline Casts Urine Mucus Crossmatch 09/14/18 09/14/18 06:54 06:54 WBC 22.1 H RBC 2.66 L Hgb 7.4 L Hct 24.0 L MCHC 30.7 L RDW 17.1 H Neutrophils # 19.6 H Neutrophils # (Manual) PT INR Sodium 136 L Potassium 6.0 H Chloride 111 H Carbon Dioxide 18 L Creatinine Glucose 119 H POC Glucose (mg/dL) Plasma Lactic Acid Balaji Calcium 6.9 L Magnesium Total Bilirubin 1.8 H Delta Bilirubin AST Ammonia Total Protein 4.5 L Albumin 2.1 L Urine Blood Urine RBC Hyaline Casts Urine Mucus Crossmatch - Diagnostic Findings Chest x-ray: report reviewed, image reviewed Additional studies: EKG reviewed Assessment and Plan Plan: Assessment: #1. Acute GI blood loss anemia, presenting with multiple episodes of hematemesis, and melanotic stools and hemoglobin of 6.6 #2. Recent hospitalization for GI bleeding, status post banding of the esophageal varices on 08/30/2018 and in June 2018 #3. Liver cirrhosis related to history of alcoholism #4. History of rib fractures on the left related to trauma #5. Leukocytosis, possibly reactive, rule out infectious etiology #6. Mild coagulopathy #7. Hyperkalemia #8. Non-anion gap metabolic acidosis #9. Long history of nicotine dependence, [id number] smoking history, #10. Possible COPD #11. Ascites with previous history of paracentesis, most recently on 09/05/2018 with removal of 5 L of ascitic fluid cytology was negative, cultures were negative Plan: We'll continue with the octreotide drip, PPI therapy, patient is being transfused with his 30 unit of packed red blood cells, patient is ordered for EGD today by Dr. Hahn. Is not requiring vasopressor support, we will increase the IV fluids 200 ML per hour, maintain nothing by mouth status, will remain the intensive care unit for close hemodynamic monitoring, we'll continue closely follow I performed a history & physical examination of the patient and discussed their management with my nurse practitioner, Nancy Hoyos. I reviewed the nurse practitioner's note and agree with the documented findings and plan of care. Lung sounds are positive for clear. The findings and the impression was discussed with the patient. I attest to the documentation by the nurse practitioner. Time with Patient: Greater than 30
[2018-09-14 12:56] LABS: Anisocytosis Slight; Basophils # (A) 0.1 k/uL (0-0.2); Basophils % (A) 0 %; Eosinophils % (A) 0 %; HCT 21.8 % (39.0-53.0); HGB 7.4 gm/dL (13.0-17.5); Hypochromasia Moderate; Lymphocytes # (A) 1.7 k/uL (1.0-4.8); Lymphocytes % (A) 9 %; MCH 29.6 pg (25.0-35.0); MCHC 33.8 g/dL (31.0-37.0); MCV 87.4 fL (80.0-100.0); Mean Platelet Volume 8.2; Monocytes # (A) 1.6 k/uL (0-1.0); Monocytes % (A) 8 %; Neutrophils # (A) 15.1 k/uL (1.3-7.7); Neutrophils % (A) 79 %; Platelet Count 250 k/uL (150-450); Poikilocytosis Moderate; RBC 2.49 m/uL (4.30-5.90); RDW 17.3 % (11.5-15.5)
[2018-09-14] MEDS ORDERED: PROPOFOL 10 MG/ML 20 ML VIAL IV ONE (13:08)
[2018-09-14] MEDS ORDERED: KETAMINE 10 MG/ML 20 ML VIAL ONE (13:08)
[2018-09-14] MEDS ORDERED: LIDOCAINE 1% INJ 10MG/ML (20 ML MDV) ONE (13:08)
[2018-09-14] MEDS ORDERED: IV FLUID CONTINUATION 100 ML IV ONE (13:12)
[2018-09-14 13:38] LABS: Large Platelets Present
--- NOTE | 2018-09-14 14:01 | P.PCN ---
Date of Procedure: 09/14/18 Description of Procedure: BRIEF HISTORY: 43-year-old male alcohol liver cirrhosis esophageal varices portal hypertension and ascites with history of GI bleeds. Patient was just hospitalized and discharged week ago secondary to an acute upper GI bleed secondary to esophageal varices. He underwent EGD colonoscopy evaluation 08/31/2018 with esophageal banding 4. Colonoscopy was aborted due to poor prep internal hemorrhoids were seen. Patient presented last night with gross hematemesis multiple times with melena. Reports increased abdominal distention discomfort. No fevers. Paracentesis performed on last admission 5 L removed cytology negative. Serum alcohol 99. Previous admission patient was not compliant with taking his prescribed medications such as Inderal and Protonix. Admission hemoglobin 6.6 previously 7.4. MCV 88. Platelet 290. INR 1.4. White count 15.3. BUN 14. Creatinine 0.7. Potassium 6.0. Sodium 136. Chest x-ray left perihilar infiltrate correlate for pneumonitis or pneumonia. Abdominal x-ray no acute abdominal pelvic disease or bowel obstruction. Total bilirubin 1.8. AST 57. ALT 36. AP 83. Ammonia 57. AFP June 2018 3.2. Hepatitis screen May 2018 nonreactive.. PROCEDURE PERFORMED: Esophagogastroduodenoscopy with variceal banding. PREOPERATIVE DIAGNOSIS: Upper GI bleed, history of varices, anemia acute blood loss. ESTIMATED BLOOD LOSS: Minimal. IV sedation per anesthesia. PROCEDURE: After informed consent was obtained, the patient was brought into the endoscopy unit. IV sedation was administered by Anesthesia under continuous monitoring. Initially the Olympus GIF-190 video endoscope was inserted into the mouth. Esophagus intubated without any difficulty. It was gradually advanced into the stomach and duodenum and carefully examined. The bulb and the second part of the duodenum appeared normal, except for some old blood noted with no active bleeding. The scope at this time was withdrawn to the stomach, adequately insufflated with air, and upon careful examination, mucosa of the antrum, body, cardia and the fundus appeared grossly normal except for a large amount of old blood and clots which was lavaged and suctioned. No active bleeding in the stomach was noted. The scope was then withdrawn into the esophagus. The GE junction was located at 39 cm from the incisors. Varices were noted in the distal esophagus just above the GE junction, one displaying erythema and redness consistent with a red whale sign and one more proximally which appeared ulcerated. Variceal band ligation was performed with 4 bands placed on the 2 varix which were described as well as 2 additional varices. No active bleeding was noted at the beginning of the case or after banding placement. The patient tolerated the procedure well. IMPRESSION: 1. Variceal band ligation with 4 bands placed over varices in the distal esophagus. 2. No active bleeding, but old blood noted in the stomach and small bowel. RECOMMENDATIONS: The findings of this examination were discussed with the patient and his sister. Okay for sips of water and ice chips. Continue Protonix IV. Continue octreotide drip for 72 hours. Continue ceftriaxone 1 g daily. Continue to monitor for signs or symptoms of GI bleeding. Recommend alcohol abstinence. Monitor for alcohol withdrawal.
--- NOTE | 2018-09-14 15:49 | P.HPIM ---
History of Present Illness H&P Date: 09/14/18 Chief Complaint: GI bleed This is a 43-year-old gentleman with history of esophageal varices, portal hypertension ,ongoing alcohol abuse, liver cirrhosis, GI bleeds, noncompliant with medication regimen and multiple other medical issues admitted with complaints of vomiting bight red blood. Patient recently discharged on 09/06 status post EGD reporting esophageal varices, status post banding. (Prior to that patient had banding done on 07/05/18.)Colonoscopy at that time had been aborted secondary to poor prep, reported evidence of internal hemorrhoids. Paracentesis last admission of 5 L, with negative cytology. May 2018 hepatitis screen nonreactive. Telemetry sinus tachycardia. EKG reports sinus tachycardia.VSS. Hemoglobin 6.6, MCV 88, platelets 290 INR 1.3, lactic acid 2.2, abdominal x-ray reports nonacute abdomen, questionable groundglass opacity's of the left upper and lower lobes. Serum Alcohol level 99, ammonia level 57.This morning ICU reports melena stools, mostly clots. No further hemoptysis. Admitted to ICU. Patient has received a total of 3 units packed RBCs, current hemoglobin 7.4. Potassium 5.9, up to 6, received insulin, bicarbonate, D50 with recheck pending. T bili 1.8 AST 57, ALT 36, AP 83. Afebrile, WBC 15.3 on admission, increased to 22.1. Sodium 136. CO2 18, pO2 of 14, creatinine 0.72. Denies chest pain, palpitations or increasing shortness of breath. Evaluated by GI, scheduled for EGD. Review of Systems .ROS Statement: Those systems with pertinent positive or pertinent negative responses have been documented in the HPI. ROS Other: All systems not noted in ROS Statement are negative. Past Medical History Past Medical History: Asthma, GI Bleed, Liver Disease, Pneumonia Additional Past Medical History / Comment(s): ETOH abuse, liver cirrhosis, abdominal ascites, pancreatitis, multiple gallstones, nephrolithiasis, chronic anemia, esophageal varices, hx urinating blood and kidneys stone History of Any Multi-Drug Resistant Organisms: MRSA Date of last positivie culture/infection: 12/09/2013 MDRO Source:: Right first finger Past Surgical History: Appendectomy, Cholecystectomy, Orthopedic Surgery Additional Past Surgical History / Comment(s): 07/09/17 EGD/colonoscopy, paracentesis, right hand tendon repair, right knee arthroscopy, cystoscopy for kidney stone removal, right hand ring finger surgery. Past Anesthesia/Blood Transfusion Reactions: Previous Problems w/ Anesthesia Additional Past Anesthesia/Blood Transfusion Reaction / Comment(s): Woke up during scope procedure. Past Psychological History: PTSD Additional Psychological History / Comment(s): PT currently resides at parent's house with his significant other. Smoking Status: Current every day smoker Past Alcohol Use History: Abuse, Daily Additional Past Alcohol Use History / Comment(s): Pt states he started smoking in 1983 and is a ppd smoker. PT states reduced the amount of alcohol to a few days a week, drinking 2-3 drinks on those occasions. Pt states used to drink a fifth or 1/2 gallon and some beers daily. Past Drug Use History: Marijuana Additional Drug Use History / Comment(s): Pt states he smokes marijuana on occasion. No other drug use. - Past Family History Mother Family Medical History: Hypertension Father Additional Family Medical History / Comment(s): Prostate issues. Brain aneurysm. Medications and Allergies Home Medications Medication Instructions Recorded Confirmed Type Folic Acid 1 mg PO DAILY@1200 09/01/17 09/13/18 History Multivitamins, Thera [Multivitamin 1 tab PO DAILY #30 tablet 09/03/17 09/13/18 Rx (formulary)] Thiamine [Vitamin B-1] 100 mg PO DAILY #30 tablet 09/03/17 09/13/18 Rx Propranolol [Inderal] 10 mg PO TID 08/30/18 09/13/18 History Lactulose [Cephulac] 20 gm PO TID #900 ml 09/06/18 09/13/18 Rx Pantoprazole [Protonix] 40 mg PO BID #60 tablet. 09/06/18 09/13/18 Rx Albuterol Inhaler [Ventolin Hfa 2 puff INHALATION RT-Q6H PRN 09/13/18 09/13/18 History Inhaler] Furosemide [Lasix] 20 mg PO DAILY 09/14/18 09/14/18 History Allergies Allergy/AdvReac Type Severity Reaction Status Date / Time No Known Allergies Allergy Verified 09/13/18 21:56 Physical Exam Vitals: Vital Signs Temp Pulse Resp BP Pulse Ox 09/14/18 08:06 98.7 F 110 H 12 106/83 96 09/14/18 07:36 98.7 F 111 H 13 112/73 96 09/14/18 07:26 98.9 F 112 H 20 99/72 96 09/14/18 07:00 112 H 13 116/71 96 09/14/18 06:54 97.8 F 107 H 24 107/64 96 09/14/18 06:00 113 H 17 108/77 96 09/14/18 05:10 97.8 F 112 H 30 H 103/69 95 09/14/18 05:00 97.9 F 118 H 32 H 117/66 93 L 09/14/18 04:00 98.0 F 117 H 9 L 105/70 95 09/14/18 03:00 117 H 20 108/65 96 09/14/18 02:21 98.5 F 120 H 20 122/65 91 L 09/14/18 02:00 116 H 24 111/61 91 L 09/14/18 01:25 98.8 F 110 H 13 111/61 95 09/14/18 01:00 114 H 12 116/63 99 09/14/18 00:47 98.7 F 124 H 18 116/63 97 09/14/18 00:45 120 H 25 H 105/66 99 09/14/18 00:37 98.6 F 122 H 16 105/66 99 09/14/18 00:32 98.6 F 122 H 16 105/66 99 09/14/18 00:30 116 H 17 102/82 99 09/14/18 00:27 117 H 13 102/82 99 09/14/18 00:15 116 H 19 102/82 98 09/14/18 00:00 121 H 12 158/81 97 09/13/18 23:45 121 H 10 L 158/81 99 09/13/18 23:30 118 H 17 106/74 99 09/13/18 23:15 124 H 15 112/100 99 09/13/18 23:00 114 H 13 123/59 100 09/13/18 22:45 16 114/72 09/13/18 22:30 116 H 16 114/72 09/13/18 22:15 110 H 14 110/72 09/13/18 22:00 112 H 18 121/83 09/13/18 21:45 113 H 12 118/75 95 04/30/19 21:22 98.1 F 120 H 22 107/54 98 Intake and Output 09/13/18 09/14/18 09/14/18 22:59 06:59 14:59 Intake Total 1245 0 Output Total 2225 Balance -980 0 Intake: IV 625 Octreotide 500 mcg In 125 Sodium Chloride 0.9% 250 ml @ 25.2 mls/hr IVPB Q10H [facility] Rx#:[id number] Sodium Chloride 0.9% 1, 500 000 ml @ 100 mls/hr IV . Q10H [facility]HA Rx#:[id number] Blood Product 620 0 Rc As-1 Unit 310 [id number] Rc As-1 Unit 0 [id number] Rc As-1 Unit 310 [id number] Output: Urine 275 Emesis 1950 Other: Voiding Method Indwelling Catheter Weight 100.153 kg 99.8 kg General: [Patient sitting up in bed, awake, alert and oriented times 3. no acute distress. HEENT: [PERRL. EOMI. No pharyngeal erythema or exudate. Oral mucosa dry Neck: [Supple, No adenopathy.] Cardiac: [Heart regular in rate and rhythm. No S3. No S4. No clicks, rubs. No murmur.] Lungs: [Clear to auscultation bilaterally. No crackles, no wheezes, left-sided rib cage tenderness] Abdomen: [Firm, mild diffuse tenderness, distended, ascites .No mass palpable. No guarding. Bowel sounds presnt and normoactive in all 4 quadrants.] Extremities: [No edema no cyanosis no claudication normal pulses] Musculoskeletal: [No joint erythema, edema or tenderness.] Skin: [No rash.] Neurologic:CN II - XII grossly intact. No focal deficits. Results CBC & Chem 7: 09/14/18 12:08 09/14/18 12:08 Labs: Abnormal Lab Results - Last 24 Hours (Table) 09/13/18 09/13/18 09/13/18 Range/Units 21:38 21:38 21:38 WBC 15.3 H (3.8-10.6) k/uL RBC 2.37 L (4.30-5.90) m/uL Hgb 6.6 L* D (13.0-17.5) gm/dL Hct 21.1 L (39.0-53.0) % MCHC (31.0-37.0) g/dL RDW 17.9 H (11.5-15.5) % Neutrophils # (1.3-7.7) k/uL Neutrophils # (Manual) 12.00 H (1.3-7.7) k/uL PT (9.0-12.0) sec INR (<1.2) Sodium 136 L (137-145) mmol/L Potassium (3.5-5.1) mmol/L Chloride 109 H (98-107) mmol/L Carbon Dioxide 18 L (22-30) mmol/L Creatinine (0.66-1.25) mg/dL Glucose 114 H (74-99) mg/dL POC Glucose (mg/dL) (75-99) mg/dL Plasma Lactic Acid Balaji (0.7-2.0) mmol/L Calcium 7.6 L (8.4-10.2) mg/dL Magnesium (1.6-2.3) mg/dL Total Bilirubin (0.2-1.3) mg/dL Delta Bilirubin 0.3 H (0.0-0.2) mg/dL AST (17-59) U/L Ammonia (<30) umol/L Total Protein 5.0 L (6.3-8.2) g/dL Albumin 2.3 L (3.5-5.0) g/dL Urine Blood (Negative) Urine RBC (0-5) /hpf Hyaline Casts (0-2) /lpf Urine Mucus (None) /hpf Crossmatch See Detail 09/13/18 09/13/18 09/13/18 Range/Units 21:38 22:00 22:00 WBC (3.8-10.6) k/uL RBC (4.30-5.90) m/uL Hgb (13.0-17.5) gm/dL Hct (39.0-53.0) % MCHC (31.0-37.0) g/dL RDW (11.5-15.5) % Neutrophils # (1.3-7.7) k/uL Neutrophils # (Manual) (1.3-7.7) k/uL PT 12.9 H (9.0-12.0) sec INR 1.3 H (<1.2) Sodium (137-145) mmol/L Potassium (3.5-5.1) mmol/L Chloride (98-107) mmol/L Carbon Dioxide (22-30) mmol/L Creatinine (0.66-1.25) mg/dL Glucose (74-99) mg/dL POC Glucose (mg/dL) 148 H (75-99) mg/dL Plasma Lactic Acid Balaji 2.2 H* (0.7-2.0) mmol/L Calcium (8.4-10.2) mg/dL Magnesium (1.6-2.3) mg/dL Total Bilirubin (0.2-1.3) mg/dL Delta Bilirubin (0.0-0.2) mg/dL AST (17-59) U/L Ammonia 42 H (<30) umol/L Total Protein (6.3-8.2) g/dL Albumin (3.5-5.0) g/dL Urine Blood (Negative) Urine RBC (0-5) /hpf Hyaline Casts (0-2) /lpf Urine Mucus (None) /hpf Crossmatch 09/14/18 09/14/18 09/14/18 Range/Units 01:22 01:55 04:30 WBC (3.8-10.6) k/uL RBC (4.30-5.90) m/uL Hgb (13.0-17.5) gm/dL Hct (39.0-53.0) % MCHC (31.0-37.0) g/dL RDW (11.5-15.5) % Neutrophils # (1.3-7.7) k/uL Neutrophils # (Manual) (1.3-7.7) k/uL PT (9.0-12.0) sec INR (<1.2) Sodium (137-145) mmol/L Potassium (3.5-5.1) mmol/L Chloride (98-107) mmol/L Carbon Dioxide (22-30) mmol/L Creatinine (0.66-1.25) mg/dL Glucose (74-99) mg/dL POC Glucose (mg/dL) 145 H (75-99) mg/dL Plasma Lactic Acid Balaji 3.0 H* (0.7-2.0) mmol/L Calcium (8.4-10.2) mg/dL Magnesium (1.6-2.3) mg/dL Total Bilirubin (0.2-1.3) mg/dL Delta Bilirubin (0.0-0.2) mg/dL AST (17-59) U/L Ammonia (<30) umol/L Total Protein (6.3-8.2) g/dL Albumin (3.5-5.0) g/dL Urine Blood Moderate H (Negative) Urine RBC 29 H (0-5) /hpf Hyaline Casts 26 H (0-2) /lpf Urine Mucus Rare H (None) /hpf Crossmatch 09/14/18 09/14/18 09/14/18 Range/Units 04:38 04:40 04:42 WBC (3.8-10.6) k/uL RBC (4.30-5.90) m/uL Hgb (13.0-17.5) gm/dL Hct (39.0-53.0) % MCHC (31.0-37.0) g/dL RDW (11.5-15.5) % Neutrophils # (1.3-7.7) k/uL Neutrophils # (Manual) (1.3-7.7) k/uL PT 14.0 H (9.0-12.0) sec INR 1.4 H (<1.2) Sodium 136 L (137-145) mmol/L Potassium 5.9 H (3.5-5.1) mmol/L Chloride 115 H (98-107) mmol/L Carbon Dioxide 13 L (22-30) mmol/L Creatinine 0.64 L (0.66-1.25) mg/dL Glucose 103 H (74-99) mg/dL POC Glucose (mg/dL) (75-99) mg/dL Plasma Lactic Acid Balaji (0.7-2.0) mmol/L Calcium 6.3 L* (8.4-10.2) mg/dL Magnesium 1.4 L (1.6-2.3) mg/dL Total Bilirubin 1.5 H (0.2-1.3) mg/dL Delta Bilirubin (0.0-0.2) mg/dL AST 61 H (17-59) U/L Ammonia 57 H (<30) umol/L Total Protein 4.3 L (6.3-8.2) g/dL Albumin 1.9 L (3.5-5.0) g/dL Urine Blood (Negative) Urine RBC (0-5) /hpf Hyaline Casts (0-2) /lpf Urine Mucus (None) /hpf Crossmatch 09/14/18 09/14/18 Range/Units 06:54 06:54 WBC 22.1 H (3.8-10.6) k/uL RBC 2.66 L (4.30-5.90) m/uL Hgb 7.4 L (13.0-17.5) gm/dL Hct 24.0 L (39.0-53.0) % MCHC 30.7 L (31.0-37.0) g/dL RDW 17.1 H (11.5-15.5) % Neutrophils # 19.6 H (1.3-7.7) k/uL Neutrophils # (Manual) (1.3-7.7) k/uL PT (9.0-12.0) sec INR (<1.2) Sodium 136 L (137-145) mmol/L Potassium 6.0 H (3.5-5.1) mmol/L Chloride 111 H (98-107) mmol/L Carbon Dioxide 18 L (22-30) mmol/L Creatinine (0.66-1.25) mg/dL Glucose 119 H (74-99) mg/dL POC Glucose (mg/dL) (75-99) mg/dL Plasma Lactic Acid Balaji (0.7-2.0) mmol/L Calcium 6.9 L (8.4-10.2) mg/dL Magnesium (1.6-2.3) mg/dL Total Bilirubin 1.8 H (0.2-1.3) mg/dL Delta Bilirubin (0.0-0.2) mg/dL AST (17-59) U/L Ammonia (<30) umol/L Total Protein 4.5 L (6.3-8.2) g/dL Albumin 2.1 L (3.5-5.0) g/dL Urine Blood (Negative) Urine RBC (0-5) /hpf Hyaline Casts (0-2) /lpf Urine Mucus (None) /hpf Crossmatch Thrombosis Risk Factor Assmnt - Choose All That Apply Any of the Below Risk Factors Present?: Yes Each Factor Represents 1 point: Age 41-60 years, History of prior major surgery (<1month), Medical pt on bed rest, Obesity (BMI >25) Other Risk Factors: Yes Thrombosis Risk Factor Assessment Total Risk Factor Score: 4 Thrombosis Risk Factor Assessment Level: Moderate Risk Assessment and Plan Assessment: -Acute on chronic blood loss anemia secondary to Acute GI bleed in a patient with history of esophageal varices, liver cirrhosis, portal hypertension, ongoing alcohol abuse, status post recent banding on 07/05 and 08/31. Reported hemoptysis at home, currently having melena stools. -Esophageal varices, recent banding 07/05, 417 -Ongoing EtOH abuse, vodka bottle found in patient's pocket on admission. -Portal hypertension -Alcohol liver Cirrhosis with ascites. Last paracentesis 09/05/2018; cytology and cultures negative. -Coagulopathy -Hyperammoniemia -Ongoing nicotine dependence -Chronic pancreatitis -Nephrolithiasis -Hyperkalemia -Leukocytosis, possibly reactive -History of left sided traumatic rib fractures -Metabolic acidosis Plan: Continue on current medication regime, monitoring and symptomatic treatment. Maintain Sandostatin drip, aggressive IV fluid hydration,PPI. Serial CBCs. Close monitoring of electrolytes, patient received D50, bicarbonate, insulin and for prior elevated potassium with repeat level pending. NPO, EGD pending. Potential paracentesis to follow. Family at bedside, updated on plan of care, verbalized understanding and agreement with .Social work consult initiated. Alcohol cessation readdressed, patient denies alcohol use, alcohol level on admission 99. Prognosis guarded given multiple complex medical issues. The impression and plan of care has been dictated as directed. : I performed a history and examination of this patient, discussed the same with the dictator. I agree with the dictator's note ,documented as a scribe. Any additional findings or plans will be noted. Time taken: 35 minutes
[2018-09-14] MEDS: ALBUMIN HUMAN 25% 50 ML in EMPTY BAG 1 BAG IVPB SCH ×2 (18:04→18:24)
[2018-09-14 21:27] LABS: Anisocytosis Slight; HCT 21.9 % (39.0-53.0); HGB 7.2 gm/dL (13.0-17.5); Hypochromasia Moderate; MCH 28.2 pg (25.0-35.0); MCHC 32.8 g/dL (31.0-37.0); Mean Platelet Volume 8.9; Platelet Count 203 k/uL (150-450); Poikilocytosis Moderate; RBC 2.54 m/uL (4.30-5.90); RDW 17.6 % (11.5-15.5); WBC 14.1 k/uL (3.8-10.6)
[2018-09-14 21:53] LABS: Band Neutrophils % 1 %; Lymphocytes # (M) 1.41 k/uL (1.0-4.8); Monocytes # (M) 2.12 k/uL (0-1.0); Neutrophils % (M) 74 %; Nucleated Red Blood Cells 0 /100 WBC (0-0); Total Cells Counted 100
[2018-09-14 21:54] LABS: Poikilocytosis (M) Present; Polychromasia Present; Target Cells Present
--- NOTE | 2018-09-14 23:38 | OP ---
OPERATIVE REPORT PREOPERATIVE DIAGNOSIS: Ascites. POSTOPERATIVE DIAGNOSIS: Ascites and removal of 4 L of ascitic fluid. PROCEDURE: Paracentesis. DESCRIPTION OF PROCEDURE: This procedure was done at the bedside. Consent and time out obtained. The procedure was done under sterile technique. The right lower quadrant of the abdomen was cleaned using ChloraPrep. Following that, the skin was then infiltrated with 1% lidocaine. I was able to insert a paracentesis catheter into the abdominal cavity. A total of 4.0 L of turbid dark yellowish ascitic fluid was aspirated without major difficulties and without any complications. At the end of the procedure, the abdomen was less tense and ascitic fluid was drained and the catheter was removed. Appropriate dressing was applied to the skin. The fluid will be sent for analysis including Gram stain and culture. We will offer this patient 25 g of albumin post paracentesis. No bedside complications. MMODL / IJN: [id number] /
[2018-09-15] MEDS: MORPHINE SULFATE 2 MG/ML SYRINGE IV PRN ×6 (01:32→23:59)
[2018-09-15 05:58] LABS: Anisocytosis Slight; Basophils # (A) 0.1 k/uL (0-0.2); Basophils % (A) 1 %; Eosinophils # (A) 0.2 k/uL (0-0.7); Eosinophils % (A) 2 %; HCT 20.8 % (39.0-53.0); Hypochromasia Moderate; Lymphocytes # (A) 1.3 k/uL (1.0-4.8); Lymphocytes % (A) 14 %; MCH 28.7 pg (25.0-35.0); MCHC 32.4 g/dL (31.0-37.0); MCV 88.4 fL (80.0-100.0); Mean Platelet Volume 7.6; Monocytes # (A) 0.8 k/uL (0-1.0); Monocytes % (A) 9 %; Neutrophils # (A) 6.3 k/uL (1.3-7.7); Neutrophils % (A) 70 %; Platelet Count 193 k/uL (150-450); Poikilocytosis Moderate; RBC 2.36 m/uL (4.30-5.90); RDW 17.4 % (11.5-15.5)
[2018-09-15 06:08] LABS: HGB 6.8 gm/dL (13.0-17.5)
[2018-09-15 06:28] LABS: ALT 29 U/L (21-72); AST 63 U/L (17-59); Alkaline Phosphatase 79 U/L (38-126); Anion Gap 3 mmol/L; Blood Urea Nitrogen 22 mg/dL (9-20); Calcium 7.2 mg/dL (8.4-10.2); Carbon Dioxide 23 mmol/L (22-30); Chloride 112 mmol/L (98-107); Glucose 117 mg/dL (74-99); Magnesium 2.2 mg/dL (1.6-2.3); Phosphorus 2.7 mg/dL (2.5-4.5); Potassium 4.2 mmol/L (3.5-5.1); Sodium 138 mmol/L (137-145); Total Bilirubin 1.7 mg/dL (0.2-1.3); Total Protein 4.3 g/dL (6.3-8.2)
[2018-09-15] MEDS: OCTREOTIDE 500 MCG in SODIUM CHLORIDE 0.9% 250 ML IVPB SCH ×2 (07:25→15:37)
[2018-09-15] MEDS: SODIUM CHLORIDE 0.9% 1,000 ML IV SCH ×2 (07:25→15:38)
--- NOTE | 2018-09-15 07:30 | US ---
EXAMINATION TYPE: US abdomen limited DATE OF EXAM: 09/15/2018 COMPARISON: NONE CLINICAL HISTORY: assess for ascites. distended abd on ICU patient, h/0 paracentesis 09/05 Scanned all four quadrants of abdomen and there was mild amount of fluid seen. IMPRESSION: Small volume ascites throughout the abdomen.
--- NOTE | 2018-09-15 07:46 | XR ---
EXAMINATION TYPE: XR chest 1V DATE OF EXAM: 09/15/2018 COMPARISON: Prior chest x-ray 09/14/2018 HISTORY: Shortness of breath TECHNIQUE: Single frontal view of the chest is obtained. FINDINGS: There is no pneumothorax or sizable effusion. Patchy basilar density persists. Interstitiu m is mildly increased. There are overlying cardiac leads. Heart size is unchanged. IMPRESSION: Prominently interstitium is again noted. There is basilar atelectasis. Findings are esse ntially stable.
[2018-09-15] MEDS: PANTOPRAZOLE 40 MG/10 ML VIAL IVP SCH ×2 (08:48→21:02)
--- NOTE | 2018-09-15 10:51 | P.PN ---
Subjective Progress Note Date: 09/15/18 Principal diagnosis: GI variceal bleed No active GI bleeding since yesterday morning. Status post EGD with variceal banding 4. Hemoglobin 6.8 blood transfusion ordered this morning. White count 6. BUN 22. Creatinine 0.5. Total bilirubin 1.7. AST 63. ALT 29. 79. Ultrasound abdomen mild ascites. Mild abdominal discomfort. No fevers. Nothing by mouth except ice chips. Objective - Vital Signs Vital signs: Vital Signs Temp 98 F 09/15/18 09:00 Pulse 93 09/15/18 09:00 Resp 24 09/15/18 09:00 BP 109/63 09/15/18 09:00 Pulse Ox 96 09/15/18 09:00 Intake & Output 09/14/18 09/15/18 09/15/18 18:59 06:59 18:59 Intake Total 1960 1500 375.4 Output Total 750 935 375 Balance 1210 565 0.4 Weight 99.8 kg 100 kg Intake: IV 1650 1500 375.4 Albumin Human 25% 50 ml 100 In Empty Bag 1 bag @ 200 mls/hr IVPB Q15M [facility] Rx#: [id number] Magnesium Sulfate-D5w Pmx 500 1 gm In Dextrose/Water 1 100ml.bag @ 100 mls/hr IVPB Q1H [facility] Rx#: [id number] Octreotide 500 mcg In 300 300 75.4 Sodium Chloride 0.9% 250 ml @ 25.2 mls/hr IVPB Q10H [facility] Rx#:[id number] Sodium Chloride 0.9% 1, 650 1200 300 000 ml @ 100 mls/hr IV . Q10H [facility] Rx#:[id number] Blood Product 310 0 Rc As-1 Unit 310 [id number] Rc As-1 Unit 0 [id number] Output: Urine 750 935 375 Other: Voiding Method Indwelling Catheter Indwelling Catheter # Bowel Movements 1 - Exam General appearance: The patient is alert, oriented, in no acute distress. HET: Head is normocephalic and atraumatic. Pupils are equal and reactive. Oropharynx is clear without lesions. Neck: Supple without lymphadenopathy. Trachea midline. Heart: S1 S2. Regular rate and rhythm. Lungs: No crackles or wheezes are heard. Abdomen: Soft, mildly distended with mild ascites mild tenderness across mid abdomen with bowel sounds. No peritoneal signs. No palpable organomegaly or masses. Extremities: Normal skin color and turgor. No cyanosis, rash, ulceration, clubbing, or edema. Radial and pedal pulses are 2/4 bilaterally. Neurological: No focal deficits. Strength and sensation are grossly intact. - Labs CBC & Chem 7: 09/15/18 04:24 09/15/18 04:24 Labs: Abnormal Lab Results - Last 24 Hours (Table) 09/13/18 09/14/18 09/14/18 Range/Units 21:38 12:08 20:54 WBC 19.0 H 14.1 H (3.8-10.6) k/uL RBC 2.49 L 2.54 L (4.30-5.90) m/uL Hgb 7.4 L 7.2 L (13.0-17.5) gm/dL Hct 21.8 L 21.9 L (39.0-53.0) % RDW 17.3 H 17.6 H (11.5-15.5) % Neutrophils # 15.1 H (1.3-7.7) k/uL Neutrophils # (Manual) 10.50 H (1.3-7.7) k/uL Monocytes # 1.6 H (0-1.0) k/uL Monocytes # (Manual) 2.12 H (0-1.0) k/uL Chloride (98-107) mmol/L BUN (9-20) mg/dL Creatinine (0.66-1.25) mg/dL Glucose (74-99) mg/dL Calcium (8.4-10.2) mg/dL Total Bilirubin (0.2-1.3) mg/dL AST (17-59) U/L Total Protein (6.3-8.2) g/dL Albumin (3.5-5.0) g/dL Crossmatch See Detail 09/15/18 09/15/18 Range/Units 04:24 04:24 WBC (3.8-10.6) k/uL RBC 2.36 L (4.30-5.90) m/uL Hgb 6.8 L* (13.0-17.5) gm/dL Hct 20.8 L (39.0-53.0) % RDW 17.4 H (11.5-15.5) % Neutrophils # (1.3-7.7) k/uL Neutrophils # (Manual) (1.3-7.7) k/uL Monocytes # (0-1.0) k/uL Monocytes # (Manual) (0-1.0) k/uL Chloride 112 H (98-107) mmol/L BUN 22 H (9-20) mg/dL Creatinine 0.59 L (0.66-1.25) mg/dL Glucose 117 H (74-99) mg/dL Calcium 7.2 L (8.4-10.2) mg/dL Total Bilirubin 1.7 H (0.2-1.3) mg/dL AST 63 H (17-59) U/L Total Protein 4.3 L (6.3-8.2) g/dL Albumin 2.0 L (3.5-5.0) g/dL Crossmatch Assessment and Plan (1) Hematemesis Narrative/Plan: Acute upper GI bleed variceal status post EGD with banding 4. Current Visit: No Status: Acute Code(s): K92.0 - HEMATEMESIS SNOMED Code(s): 5354703 (2) GI bleed Current Visit: Yes Status: Acute Code(s): K92.2 - GASTROINTESTINAL HEMORRHAGE, UNSPECIFIED SNOMED Code(s): 66284532 (3) Esophageal varices Current Visit: No Status: Acute Code(s): I85.00 - ESOPHAGEAL VARICES WITHOUT BLEEDING SNOMED Code(s): 52823748 (4) Acute blood loss anemia Current Visit: Yes Status: Acute Code(s): D62 - ACUTE POSTHEMORRHAGIC ANEMIA SNOMED Code(s): 667711173 (5) Chronic anemia Current Visit: No Status: Acute Code(s): D64.9 - ANEMIA, UNSPECIFIED SNOMED Code(s): 647462132 (6) Hyperkalemia Current Visit: Yes Status: Acute Code(s): E87.5 - HYPERKALEMIA SNOMED Code(s): 01097114 (7) Coagulopathy Current Visit: No Status: Acute Code(s): D68.9 - COAGULATION DEFECT, UNSPECIFIED SNOMED Code(s): 10297211 (8) History of alcohol abuse Current Visit: No Status: Acute Code(s): Z87.898 - PERSONAL HISTORY OF OTHER SPECIFIED CONDITIONS SNOMED Code(s): 255332822 (9) Hyperammonemia Current Visit: Yes Status: Acute Code(s): E72.20 - DISORDER OF UREA CYCLE METABOLISM, UNSPECIFIED SNOMED Code(s): 4355967 (10) Cirrhosis of liver with ascites Current Visit: Yes Status: Acute Code(s): K74.60 - UNSPECIFIED CIRRHOSIS OF LIVER; R18.8 - OTHER ASCITES SNOMED Code(s): 97735864 Plan: 1. Continue with IV Sandostatin for another 24 hours will reevaluate in a.m. Continue with IV Protonix 40 mg twice daily. Rocephin 1 g daily at bedtime. Daily CBC CMP ammonia PT/INR. Lactulose 10 g daily. Keep nothing by mouth except medications and ice chips. Assessment and plan a care discussed with Dr. Harrington
[2018-09-15] MEDS: LACTULOSE 20 GM/30 ML CUP PO SCH (11:16)
--- NOTE | 2018-09-15 11:48 | P.PN ---
Subjective Progress Note Date: 09/15/18 Principal diagnosis: Hematemesis, melanotic stools, acute GI bleeding, esophageal varices. This is a 43-year-old white male patient of Dr. Meza, with the past medical history of liver cirrhosis related to alcohol abuse, recent history of GI bleeding requiring banding of the esophageal varices in June and again on 08/31/2018, when patient was hospitalized with severe blood loss anemia, requiring admission to the intensive care unit. Patient was discharged home, and he came back on on 09/13/2018 for evaluation of multiple episodes of hematemesis at home, and patient was passing some melanotic stools. Admission blood work showed a hemoglobin of 6.6, down from 8.4 on 09/09/2018, white blood cell count of 15.3, INR of 1.3, potassium 4.6, sodium 136, renal profile was within normal limits, plasma lactic acid was mildly elevated at 2.2, ammonia level was 42, and lipase was 175, urinalysis had some red blood cells in it, but negative for any signs of infection, occult stool was positive. Serum alcohol level was 99. During last admission his colonoscopy was aborted due to poor prep, and there were internal hemorrhoids seen. Note that the patient also underwent ultrasound-guided paracentesis on 09/05/2018 with removal of 5 L of ascitic fluid, and cytology was negative for bacteria or malignant cells. Cultures were negative. No fever or chills, patient was started on IV fluids and 0.9 normal saline at a rate of 100 ML per hour, and he is being transfused with 3 units of packed red blood cells, and this morning his hemoglobin is 7.4. No vasopressor support, patient is awake and alert, he denies any difficulty breathing, no chest pain, his abdomen is distended, and there is some tenderness upon palpation across the upper abdomen. White blood cell count is up to 22.1, INR is 1.4, sodium is 136, potassium 6.0, CO2 was 18, BUN is 14, creatinine 0.72. Patient is nothing by mouth this morning, his been evaluated by the GI service who is planning on proceeding with the EGD this morning On 09/15/2016 patient seen in follow-up in the intensive care unit, he is resting in bed, he is a fatigued, but no acute distress, patient has had no recurrence of hematemesis since yesterday, had a small bowel movement this morning, and he states it was "normal" in color. His morning's hemoglobin is 6.7, patient will receive another unit of blood for a total of 4 units of packed red blood cells this admission. Yesterday patient underwent paracentesis at the bedside, with removal of 4 L of ascitic fluid, and on today's exam patient's abdomen is less distended less tense and tender. He remains nothing by mouth except for ice chips. It is most EGD with variceal banding 4. Hemodynamically patient remains stable, today's chest x-ray has been reviewed with Dr. Isbell, and shows prominent interstitium, basilar atelectasis. I from pulmonary standpo int patient denies any dyspnea, her pulse ox is 93%, afebrile, hemodynamically stable. Remains on octreotide drip at 50 mics per hour. Objective - Vital Signs Vital signs: Vital Signs Temp 98 F 09/15/18 09:00 Pulse 93 09/15/18 09:00 Resp 24 09/15/18 09:00 BP 109/63 09/15/18 09:00 Pulse Ox 96 09/15/18 09:00 Intake & Output 09/14/18 09/15/18 09/15/18 18:59 06:59 18:59 Intake Total 1960 1500 375.4 Output Total 750 935 375 Balance 1210 565 0.4 Weight 99.8 kg 100 kg Intake: IV 1650 1500 375.4 Albumin Human 25% 50 ml 100 In Empty Bag 1 bag @ 200 mls/hr IVPB Q15M [facility] Rx#: [id number] Magnesium Sulfate-D5w Pmx 500 1 gm In Dextrose/Water 1 100ml.bag @ 100 mls/hr IVPB Q1H [facility] Rx#: [id number] Octreotide 500 mcg In 300 300 75.4 Sodium Chloride 0.9% 250 ml @ 25.2 mls/hr IVPB Q10H [facility] Rx#:[id number] Sodium Chloride 0.9% 1, 650 1200 300 000 ml @ 100 mls/hr IV . Q10H [facility] Rx#:[id number] Blood Product 310 0 Rc As-1 Unit 310 [id number] Rc As-1 Unit 0 [id number] Output: Urine 750 935 375 Other: Voiding Method Indwelling Catheter Indwelling Catheter # Bowel Movements 1 - Exam GENERAL EXAM: Alert, 43-year-old white male, fatigued, but no acute distress HEAD: Normocephalic/atraumatic. EYES: Normal reaction of pupils, equal size. Conjunctiva pink, sclera white. NOSE: Clear with pink turbinates. THROAT: No erythema or exudates. NECK: No masses, no JVD, no thyroid enlargement, no adenopathy. CHEST: No chest wall deformity. Symmetrical expansion. LUNGS: Equal air entry with no crackles, wheeze, rhonchi or dullness. CVS: Regular rate and rhythm, normal S1 and S2, no gallops, no murmurs, no rubs ABDOMEN: Soft, abdomen is distended, bowel sounds 4. No hepatosplenomegaly, normal bowel sounds, no guarding or rigidity. EXTREMITIES: No clubbing, no edema, no cyanosis, 2+ pulses and upper and lower extremities. MUSCULOSKELETAL: Muscle strength and tone normal. SPINE: No scoliosis or deformity SKIN: No rashes CENTRAL NERVOUS SYSTEM: Alert and oriented -3. No focal deficits, tone is normal in all 4 extremities. PSYCHIATRIC: Alert and oriented -3. Appropriate affect. Intact judgment and insight. - Labs CBC & Chem 7: 09/15/18 04:24 09/15/18 04:24 Labs: Abnormal Lab Results - Last 24 Hours (Table) 09/13/18 09/14/18 09/14/18 Range/Units 21:38 12:08 20:54 WBC 19.0 H 14.1 H (3.8-10.6) k/uL RBC 2.49 L 2.54 L (4.30-5.90) m/uL Hgb 7.4 L 7.2 L (13.0-17.5) gm/dL Hct 21.8 L 21.9 L (39.0-53.0) % RDW 17.3 H 17.6 H (11.5-15.5) % Neutrophils # 15.1 H (1.3-7.7) k/uL Neutrophils # (Manual) 10.50 H (1.3-7.7) k/uL Monocytes # 1.6 H (0-1.0) k/uL Monocytes # (Manual) 2.12 H (0-1.0) k/uL Chloride (98-107) mmol/L BUN (9-20) mg/dL Creatinine (0.66-1.25) mg/dL Glucose (74-99) mg/dL Calcium (8.4-10.2) mg/dL Total Bilirubin (0.2-1.3) mg/dL AST (17-59) U/L Total Protein (6.3-8.2) g/dL Albumin (3.5-5.0) g/dL Crossmatch See Detail 09/15/18 09/15/18 Range/Units 04:24 04:24 WBC (3.8-10.6) k/uL RBC 2.36 L (4.30-5.90) m/uL Hgb 6.8 L* (13.0-17.5) gm/dL Hct 20.8 L (39.0-53.0) % RDW 17.4 H (11.5-15.5) % Neutrophils # (1.3-7.7) k/uL Neutrophils # (Manual) (1.3-7.7) k/uL Monocytes # (0-1.0) k/uL Monocytes # (Manual) (0-1.0) k/uL Chloride 112 H (98-107) mmol/L BUN 22 H (9-20) mg/dL Creatinine 0.59 L (0.66-1.25) mg/dL Glucose 117 H (74-99) mg/dL Calcium 7.2 L (8.4-10.2) mg/dL Total Bilirubin 1.7 H (0.2-1.3) mg/dL AST 63 H (17-59) U/L Total Protein 4.3 L (6.3-8.2) g/dL Albumin 2.0 L (3.5-5.0) g/dL Crossmatch Assessment and Plan Plan: Assessment: #1. Acute GI blood loss anemia, presenting with multiple episodes of hematemesis, and melanotic stools and hemoglobin of 6.6 on presentation. Patient is status post transfusion with a total of 4 units of packed red blood cells. #2. Recent hospitalization for GI bleeding, status post banding of the esophageal varices on 08/30/2018 and in June 2018 #3. Liver cirrhosis related to history of alcoholism #4. History of rib fractures on the left related to trauma #5. Leukocytosis, possibly reactive, rule out infectious etiology #6. Mild coagulopathy #7. Hyperkalemia #8. Non-anion gap metabolic acidosis #9. Long history of nicotine dependence, [id number] smoking history, #10. Possible COPD #11. Ascites with previous history of paracentesis, most recently on 09/05/2018 with removal of 5 L of ascitic fluid cytology was negative, cultures were negative Plan: Continue close monitoring in the intensive care unit, patient will remain on octreotide drip, GI service s the patient is on PPI therapy, no active bleeding since yesterday, is receiving another unit of packed red blood cells this morning. Continue serial H&H's. We'll add the Inderal 10 mg 3 times daily, which will patient has been noncompliant with that in the past, we'll add small dose of lactulose 10 mg daily. We'll continue to follow I performed a history & physical examination of the patient and discussed their management with my nurse practitioner, Nancy Hoyos. I reviewed the nurse practitioner's note and agree with the documented findings and plan of care. Lung sounds are positive for clear. The findings and the impression was discussed with the patient. I attest to the documentation by the nurse practitioner. Time with Patient: Less than 30
--- NOTE | 2018-09-15 14:42 | P.PN ---
Subjective Progress Note Date: 09/15/18 This is a 43-year-old gentleman with history of esophageal varices, portal hypertension ,ongoing alcohol abuse, liver cirrhosis, GI bleeds, noncompliant with medication regimen and multiple other medical issues admitted with complaints of vomiting bight red blood. Patient recently discharged on 09/06 status post EGD reporting esophageal varices, status post banding. (Prior to that patient had banding done on 07/05/18.)Colonoscopy at that time had been aborted secondary to poor prep, reported evidence of internal hemorrhoids. Paracentesis last admission of 5 L, with negative cytology. May 2018 h epatitis screen nonreactive. Telemetry sinus tachycardia. EKG reports sinus tachycardia.VSS. Hemoglobin 6.6, MCV 88, platelets 290 INR 1.3, lactic acid 2.2, abdominal x-ray reports nonacute abdomen, questionable groundglass opacity's of the left upper and lower lobes. Serum Alcohol level 99, ammonia level 57.This morning ICU reports melena stools, mostly clots. No further hemoptysis. Admitted to ICU. Patient has received a total of 3 units packed RBCs, current hemoglobin 7.4. Potassium 5.9, up to 6, received insulin, bicarbonate, D50 with recheck pending. T bili 1.8 AST 57, ALT 36, AP 83. Afebrile, WBC 15.3 on admission, increased to 22.1. Sodium 136. CO2 18, pO2 of 14, creatinine 0.72. Denies chest pain, palpitations or increasing shortness of breath. Evaluated by GI, scheduled for EGD. 09/15/18 patient underwent EGD yesterday reporting distal esophageal varices with variceal band ligation-4 bands. Maintained on Rocephin. Afebrile. Patient also had paracentesis completed yesterday with 4 L of dark yellow turbid peritoneal drainage. Tolerated procedures well. No further bleeding since yesterday, maintained on IV PPI as well as Sandostatin. Receiving 1 unit of pac ked RBCs for hemoglobin of 6.8. Continues on CIWA protocol, no DTs at this time. Telemetry sinus rhythm. Ammonia level ordered. T bili 1.7. Abdominal ultrasound reporting small ascites. Objective - Vital Signs Vital signs: Vital Signs Temp 98 F 09/15/18 10:48 Pulse 90 05/02/19 11:00 Resp 23 09/15/18 11:00 BP 115/70 09/15/18 11:00 Pulse Ox 98 09/15/18 11:00 Intake & Output 09/14/18 09/15/18 09/15/18 18:59 06:59 18:59 Intake Total 1960 1500 600.6 Output Total 750 935 600 Balance 1210 565 0.6 Weight 99.8 kg 100 kg Intake: IV 1650 1500 600.6 Albumin Human 25% 50 ml 100 In Empty Bag 1 bag @ 200 mls/hr IVPB Q15M [facility] Rx#: [id number] Magnesium Sulfate-D5w Pmx 500 1 gm In Dextrose/Water 1 100ml.bag @ 100 mls/hr IVPB Q1H [facility] Rx#: [id number] Octreotide 500 mcg In 300 300 100.6 Sodium Chloride 0.9% 250 ml @ 25.2 mls/hr IVPB Q10H [facility] Rx#:[id number] Sodium Chloride 0.9% 1, 650 1200 500 000 ml @ 100 mls/hr IV . Q10H [facility] Rx#:[id number] Blood Product 310 0 Rc As-1 Unit 310 [id number] Rc As-1 Unit 0 [id number] Output: Urine 750 935 600 Other: Voiding Method Indwelling Catheter Indwelling Catheter Indwelling Catheter # Bowel Movements 1 - Exam General: [Patient lying in bed, sleepy, arousable alert and oriented times 3. no acute distress. HEENT: [PERRL. EOMI. No pharyngeal erythema or exudate. Oral mucosa moist Neck: [Supple, No adenopathy. No JVD] Cardiac: [Heart regular in rate and rhythm. No S3. No S4. No clicks, rubs. No murmur.] Lungs: [Clear to auscultation bilaterally. No crackles, no wheezes, left-sided rib cage tenderness] Abdomen: [Softer, mild diffuse tenderness, distended, hepatosplenomegaly.No mass palpable. No guarding. Bowel sounds presnt and normoactive in all 4 quadrants.] Extremities: [No edema no cyanosis no claudication normal pulses] Skin: [No rash. No lesions.] Neurologic:CN II - XII grossly intact. No focal deficits. - Labs CBC & Chem 7: 09/15/18 04:24 09/15/18 04:24 Labs: Abnormal Lab Results - Last 24 Hours (Table) 09/13/18 09/14/18 09/15/18 Range/Units 21:38 20:54 04:24 WBC 14.1 H (3.8-10.6) k/uL RBC 2.54 L 2.36 L (4.30-5.90) m/uL Hgb 7.2 L 6.8 L* (13.0-17.5) gm/dL Hct 21.9 L 20.8 L (39.0-53.0) % RDW 17.6 H 17.4 H (11.5-15.5) % Neutrophils # (Manual) 10.50 H (1.3-7.7) k/uL Monocytes # (Manual) 2.12 H (0-1.0) k/uL Chloride (98-107) mmol/L BUN (9-20) mg/dL Creatinine (0.66-1.25) mg/dL Glucose (74-99) mg/dL Calcium (8.4-10.2) mg/dL Total Bilirubin (0.2-1.3) mg/dL AST (17-59) U/L Ammonia (<30) umol/L Total Protein (6.3-8.2) g/dL Albumin (3.5-5.0) g/dL Crossmatch See Detail 09/15/18 09/15/18 Range/Units 04:24 10:23 WBC (3.8-10.6) k/uL RBC (4.30-5.90) m/uL Hgb (13.0-17.5) gm/dL Hct (39.0-53.0) % RDW (11.5-15.5) % Neutrophils # (Manual) (1.3-7.7) k/uL Monocytes # (Manual) (0-1.0) k/uL Chloride 112 H (98-107) mmol/L BUN 22 H (9-20) mg/dL Creatinine 0.59 L (0.66-1.25) mg/dL Glucose 117 H (74-99) mg/dL Calcium 7.2 L (8.4-10.2) mg/dL Total Bilirubin 1.7 H (0.2-1.3) mg/dL AST 63 H (17-59) U/L Ammonia 200 H (<30) umol/L Total Protein 4.3 L (6.3-8.2) g/dL Albumin 2.0 L (3.5-5.0) g/dL Crossmatch Assessment and Plan Assessment: -Acute on chronic blood loss anemia secondary to Acute GI bleed in a patient with history of esophageal varices, liver cirrhosis, portal hypertension, ongoing alcohol abuse, status post recent banding on 07/05 and 08/31. Reported hemoptysis at home, currently having melena stools. -Esophageal varices, recent banding 07/05, 417 -Ongoing EtOH abuse, vodka bottle found in patient's pocket on admission. -Portal hypertension -Alcohol liver Cirrhosis with ascites. Last paracentesis 09/05/2018; cytology and cultures negative. -Coagulopathy -Hyperammoniemia -Ongoing nicotine dependence -Chronic pancreatitis -Nephrolithiasis -Hyperkalemia -Leukocytosis, possibly reactive -History of left sided traumatic rib fractures -Metabolic acidosis Plan: Continue on current medication regime, monitoring and symptomatic treatment. Continue Sandostatin drip, aggressive IV fluid hydration,PPI. Diet advancement as per GI, currently conservative with ice chips only. Close monitoring of ammonia level, hemoglobin, electrolytes, with repeat labs ordered for a.m. maintained on CIWA protocol ,Alcohol cessation readdressed.Prognosis guarded given multiple complex medical issues. The impression and plan of care has been dictated as directed. : I performed a history and examination of this patient, discussed the same with the dictator. I agree with the dictator's note ,documented as a scribe. Any additional findings or plans will be noted. Time taken: 35 minutes
[2018-09-15] MEDS: PROPRANOLOL 10 MG TAB PO SCH ×2 (14:44→21:07)
[2018-09-16] MEDS: MORPHINE SULFATE 2 MG/ML SYRINGE IV PRN ×8 (03:12→23:52)
[2018-09-16] MEDS: OCTREOTIDE 500 MCG in SODIUM CHLORIDE 0.9% 250 ML IVPB SCH (04:00)
[2018-09-16 05:55] LABS: Anisocytosis Slight; Basophils # (A) 0.1 k/uL (0-0.2); Basophils % (A) 1 %; Eosinophils # (A) 0.3 k/uL (0-0.7); Eosinophils % (A) 3 %; HCT 24.2 % (39.0-53.0); HGB 7.8 gm/dL (13.0-17.5); Hypochromasia Moderate; Lymphocytes # (A) 1.4 k/uL (1.0-4.8); Lymphocytes % (A) 13 %; MCH 28.6 pg (25.0-35.0); MCV 89.1 fL (80.0-100.0); Mean Platelet Volume 7.4; Monocytes # (A) 0.7 k/uL (0-1.0); Monocytes % (A) 7 %; Neutrophils # (A) 7.5 k/uL (1.3-7.7); Neutrophils % (A) 73 %; Platelet Count 199 k/uL (150-450); Poikilocytosis Slight; RBC 2.72 m/uL (4.30-5.90); RDW 17.6 % (11.5-15.5); WBC 10.2 k/uL (3.8-10.6)
[2018-09-16 06:05] LABS: INR 1.4 (<1.2); Prothrombin Time 14.1 sec (9.0-12.0)
[2018-09-16 06:17] LABS: ALT 31 U/L (21-72); AST 59 U/L (17-59); Alkaline Phosphatase 79 U/L (38-126); Anion Gap 3 mmol/L; Blood Urea Nitrogen 15 mg/dL (9-20); Calcium 7.5 mg/dL (8.4-10.2); Carbon Dioxide 20 mmol/L (22-30); Chloride 117 mmol/L (98-107); Glucose 119 mg/dL (74-99); Magnesium 2.1 mg/dL (1.6-2.3); Phosphorus 2.4 mg/dL (2.5-4.5); Potassium 3.6 mmol/L (3.5-5.1); Sodium 140 mmol/L (137-145); Total Bilirubin 1.7 mg/dL (0.2-1.3); Total Protein 4.4 g/dL (6.3-8.2)
[2018-09-16] MEDS ORDERED: POTASSIUM CHLORIDE ER 20 MEQ TAB.ER PO SCH (08:00)
[2018-09-16] MEDS: LACTULOSE 20 GM/30 ML CUP PO SCH ×3 (08:20→21:44)
[2018-09-16] MEDS: SODIUM CHLORIDE 0.9% 1,000 ML IV SCH ×2 (08:21→09:48)
[2018-09-16] MEDS: PANTOPRAZOLE 40 MG/10 ML VIAL IVP SCH ×2 (08:21→21:31)
[2018-09-16] MEDS: PROPRANOLOL 10 MG TAB PO SCH ×3 (08:23→23:52)
[2018-09-16] MEDS: SPIRONOLACTONE 25 MG TAB PO SCH (09:25)
--- NOTE | 2018-09-16 12:37 | P.PN ---
Subjective Progress Note Date: 09/16/18 Principal diagnosis: GI variceal bleed No active GI bleeding. Status post EGD with variceal banding 4. Hemoglobin 7.8. 4 blood transfusion since admission. Mild abdominal discomfort. No fevers. Nothing by mouth except ice chips. Ammonia increased to 200 yesterday 82 this morning. Receiving lactulose. Ultrasound reported mild ascites receiving Aldactone and Lasix. Clear liquids. Objective - Vital Signs Vital signs: Vital Signs Temp 98.7 F 09/16/18 08:00 Pulse 81 09/16/18 09:00 Resp 16 09/16/18 09:00 BP 132/83 09/16/18 09:00 Pulse Ox 97 09/16/18 09:00 Intake & Output 09/15/18 09/16/18 09/16/18 18:59 06:59 18:59 Intake Total 1976.6 1427.0 250 Output Total 1250 900 250 Balance 726.6 527.0 0 Weight 99.5 kg Intake: IV 1426.6 1427.0 250 Octreotide 500 mcg In 226.6 277.0 50 Sodium Chloride 0.9% 250 ml @ 25.2 mls/hr IVPB Q10H [facility] Rx#:[id number] Sodium Chloride 0.9% 1, 1200 1100 200 000 ml @ 20 mls/hr IV . Q24H [facility] Rx#:[id number] cefTRIAXone 1 gm In 50 Sodium Chloride 0.9% 50 ml @ 100 mls/hr IVPB HS [facility] Rx#:[id number] Oral 240 Blood Product 310 Rc As-1 Unit 310 [id number] Output: Urine 1250 900 250 Other: Voiding Method Indwelling Catheter Indwelling Catheter Indwelling Catheter - Exam General appearance: The patient is alert, oriented, in no acute distress. HET: Head is normocephalic and atraumatic. Pupils are equal and reactive. Oropharynx is clear without lesions. Neck: Supple without lymphadenopathy. Trachea midline. Heart: S1 S2. Regular rate and rhythm. Lungs: No crackles or wheezes are heard. Abdomen: Soft, mildly distended with mild ascites mild tenderness across mid abdomen with bowel sounds. Ostomy to Right abdomen minimal serous drainage. No peritoneal signs. No palpable organomegaly or masses. Extremities: Normal skin color and turgor. No cyanosis, rash, ulceration, clubbing, or edema. Radial and pedal pulses are 2/4 bilaterally. Neurological: No focal deficits. Strength and sensation are grossly intact. - Labs CBC & Chem 7: 09/16/18 05:34 09/16/18 05:34 Labs: Abnormal Lab Results - Last 24 Hours (Table) 09/13/18 09/15/18 09/16/18 Range/Units 21:38 10:23 05:34 RBC 2.72 L (4.30-5.90) m/uL Hgb 7.8 L (13.0-17.5) gm/dL Hct 24.2 L (39.0-53.0) % RDW 17.6 H (11.5-15.5) % PT (9.0-12.0) sec INR (<1.2) Chloride (98-107) mmol/L Carbon Dioxide (22-30) mmol/L Creatinine (0.66-1.25) mg/dL Glucose (74-99) mg/dL Calcium (8.4-10.2) mg/dL Phosphorus (2.5-4.5) mg/dL Total Bilirubin (0.2-1.3) mg/dL Ammonia 200 H (<30) umol/L Total Protein (6.3-8.2) g/dL Albumin (3.5-5.0) g/dL Crossmatch See Detail 09/16/18 09/16/18 09/16/18 Range/Units 05:34 05:34 05:34 RBC (4.30-5.90) m/uL Hgb (13.0-17.5) gm/dL Hct (39.0-53.0) % RDW (11.5-15.5) % PT 14.1 H (9.0-12.0) sec INR 1.4 H (<1.2) Chloride 117 H (98-107) mmol/L Carbon Dioxide 20 L (22-30) mmol/L Creatinine 0.53 L (0.66-1.25) mg/dL Glucose 119 H (74-99) mg/dL Calcium 7.5 L (8.4-10.2) mg/dL Phosphorus 2.4 L (2.5-4.5) mg/dL Total Bilirubin 1.7 H (0.2-1.3) mg/dL Ammonia 82 H (<30) umol/L Total Protein 4.4 L (6.3-8.2) g/dL Albumin 2.0 L (3.5-5.0) g/dL Crossmatch Assessment and Plan (1) Hematemesis Narrative/Plan: 43-year-old male admitted with acute blood loss anemia secondary to acute hematemesis GI bleed with underlying history of alcohol liver cirrhosis portal hypertension and esophageal varices. Actively drinking alcohol with history of medical noncompliance. Recent EGD colonoscopy for evaluation of GI bleed with findings of esophageal varices status post banding colonoscopy incomplete secondary to poor prep with evidence of internal hemorrhoids. Status post EGD 09/14/18 variceal banding x 4. Current Visit: No Status: Acute Code(s): K92.0 - HEMATEMESIS SNOMED Code(s): 5404347 (2) GI bleed Current Visit: Yes Status: Acute Code(s): K92.2 - GASTROINTESTINAL HEMORRHAGE, UNSPECIFIED SNOMED Code(s): 68546684 (3) Esophageal varices Current Visit: No Status: Acute Code(s): I85.00 - ESOPHAGEAL VARICES WITHOUT BLEEDING SNOMED Code(s): 58239953 (4) Acute blood loss anemia Current Visit: Yes Status: Acute Code(s): D62 - ACUTE POSTHEMORRHAGIC ANEMIA SNOMED Code(s): 504436350 (5) Chronic anemia Current Visit: No Status: Acute Code(s): D64.9 - ANEMIA, UNSPECIFIED SNOMED Code(s): 899488989 (6) Hyperkalemia Current Visit: Yes Status: Acute Code(s): E87.5 - HYPERKALEMIA SNOMED Code(s): 59580934 (7) Coagulopathy Current Visit: No Status: Acute Code(s): D68.9 - COAGULATION DEFECT, UNSPECIFIED SNOMED Code(s): 25188849 (8) History of alcohol abuse Current Visit: No Status: Acute Code(s): Z87.898 - PERSONAL HISTORY OF OTHER SPECIFIED CONDITIONS SNOMED Code(s): 340388759 (9) Hyperammonemia Narrative/Plan: Hepatic encephalopathy Current Visit: Yes Status: Acute Code(s): E72.20 - DISORDER OF UREA CYCLE METABOLISM, UNSPECIFIED SNOMED Code(s): 1235673 (10) Cirrhosis of liver with ascites Current Visit: Yes Status: Acute Code(s): K74.60 - UNSPECIFIED CIRRHOSIS OF LIVER; R18.8 - OTHER ASCITES SNOMED Code(s): 49300774 Plan: 1. Advance diet. Rocephin 1 g every 24 SBP prophylaxis. CBC CMP ammonia daily. Protonix 40 mg twice daily. Lactulose 20 g 3 times a day. 2. Possible paracentesis based on clinical course continue diuretics. Assessment and plan a care discussed with Dr. Harrington
[2018-09-16] MEDS: FUROSEMIDE 20 MG TAB PO SCH (15:02)
--- NOTE | 2018-09-16 16:00 | P.PN ---
Subjective Progress Note Date: 09/16/18 This is a 43-year-old gentleman with history of esophageal varices, portal hypertension ,ongoing alcohol abuse, liver cirrhosis, GI bleeds, noncompliant with medication regimen and multiple other medical issues admitted with complaints of vomiting bight red blood. Patient recently discharged on 09/06 status post EGD reporting esophageal varices, status post banding. (Prior to that patient had banding done on 07/05/18.)Colonoscopy at that time had been aborted secondary to poor prep, reported evidence of internal hemorrhoids. Paracentesis last admission of 5 L, with negative cytology. May 2018 h epatitis screen nonreactive. Telemetry sinus tachycardia. EKG reports sinus tachycardia.VSS. Hemoglobin 6.6, MCV 88, platelets 290 INR 1.3, lactic acid 2.2, abdominal x-ray reports nonacute abdomen, questionable groundglass opacity's of the left upper and lower lobes. Serum Alcohol level 99, ammonia level 57.This morning ICU reports melena stools, mostly clots. No further hemoptysis. Admitted to ICU. Patient has received a total of 3 units packed RBCs, current hemoglobin 7.4. Potassium 5.9, up to 6, received insulin, bicarbonate, D50 with recheck pending. T bili 1.8 AST 57, ALT 36, AP 83. Afebrile, WBC 15.3 on admission, increased to 22.1. Sodium 136. CO2 18, pO2 of 14, creatinine 0.72. Denies chest pain, palpitations or increasing shortness of breath. Evaluated by GI, scheduled for EGD. 09/15/18 patient underwent EGD yesterday reporting distal esophageal varices with variceal band ligation-4 bands. Maintained on Rocephin. Afebrile. Patient also had paracentesis completed yesterday with 4 L of dark yellow turbid peritoneal drainage. Tolerated procedures well. No further bleeding since yesterday, maintained on IV PPI as well as Sandostatin. Receiving 1 unit of pac ked RBCs for hemoglobin of 6.8. Continues on CIWA protocol, no DTs at this time. Telemetry sinus rhythm. Ammonia level ordered. T bili 1.7. Abdominal ultrasound reporting small ascites. 09/16/2018 no further bleeding, hemoglobin 7.8. Sandostatin weaned off. Ammonia decreased to 82 today from 200 yesterday, on lactulose. Reports diffuse abdominal discomfort. Afebrile. Continues on Lasix, Aldactone. Telemetry sinus rhythm. Site of prior paracentesis tap draining -serous drainage. Objective - Vital Signs Vital signs: Vital Signs Temp 98 F 09/16/18 12:00 Pulse 71 09/16/18 12:00 Resp 18 09/16/18 12:00 BP 127/74 09/16/18 12:00 Pulse Ox 96 09/16/18 12:00 Intake & Output 09/15/18 09/16/18 09/16/18 18:59 06:59 18:59 Intake Total 1976.6 1427.0 550 Output Total 1250 900 300 Balance 726.6 527.0 250 Weight 99.5 kg Intake: IV 1426.6 1427.0 310 Octreotide 500 mcg In 226.6 277.0 50 Sodium Chloride 0.9% 250 ml @ 25.2 mls/hr IVPB Q10H [facility] Rx#:[id number] Sodium Chloride 0.9% 1, 1200 1100 260 000 ml @ 20 mls/hr IV . Q24H [facility] Rx#:[id number] cefTRIAXone 1 gm In 50 Sodium Chloride 0.9% 50 ml @ 100 mls/hr IVPB HS [facility] Rx#:[id number] Oral 240 240 Blood Product 310 Rc As-1 Unit 310 [id number] Output: Drainage 50 Right Lower Abdomen 50 Urine 1250 900 250 Other: Voiding Method Indwelling Catheter Indwelling Catheter Urinal - Exam General: [Patient lying in bed, sleepy, arousable alert and oriented times 3. no acute distress. HEENT: [PERRL. EOMI. No pharyngeal erythema or exudate. Oral mucosa moist Neck: [Supple, No adenopathy. No JVD] Cardiac: [Heart regular in rate and rhythm. No S3. No S4. No clicks, rubs. No murmur.] Lungs: [Clear to auscultation bilaterally. No crackles, no wheezes] Abdomen: [Softer, mild diffuse tenderness, distended, hepatosplenomegaly.No mass palpable. No guarding. Bowel sounds presnt and normoactive in all 4 quadrants.] Extremities: [No edema no cyanosis no claudication normal pulses] Skin: [No rash. No lesions.] Neurologic:CN II - XII grossly intact. No focal deficits. - Labs CBC & Chem 7: 09/16/18 05:34 09/16/18 05:34 Labs: Abnormal Lab Results - Last 24 Hours (Table) 09/13/18 09/16/18 09/16/18 Range/Units 21:38 05:34 05:34 RBC 2.72 L (4.30-5.90) m/uL Hgb 7.8 L (13.0-17.5) gm/dL Hct 24.2 L (39.0-53.0) % RDW 17.6 H (11.5-15.5) % PT 14.1 H (9.0-12.0) sec INR 1.4 H (<1.2) Chloride (98-107) mmol/L Carbon Dioxide (22-30) mmol/L Creatinine (0.66-1.25) mg/dL Glucose (74-99) mg/dL Calcium (8.4-10.2) mg/dL Phosphorus (2.5-4.5) mg/dL Total Bilirubin (0.2-1.3) mg/dL Ammonia (<30) umol/L Total Protein (6.3-8.2) g/dL Albumin (3.5-5.0) g/dL Crossmatch See Detail 09/16/18 09/16/18 Range/Units 05:34 05:34 RBC (4.30-5.90) m/uL Hgb (13.0-17.5) gm/dL Hct (39.0-53.0) % RDW (11.5-15.5) % PT (9.0-12.0) sec INR (<1.2) Chloride 117 H (98-107) mmol/L Carbon Dioxide 20 L (22-30) mmol/L Creatinine 0.53 L (0.66-1.25) mg/dL Glucose 119 H (74-99) mg/dL Calcium 7.5 L (8.4-10.2) mg/dL Phosphorus 2.4 L (2.5-4.5) mg/dL Total Bilirubin 1.7 H (0.2-1.3) mg/dL Ammonia 82 H (<30) umol/L Total Protein 4.4 L (6.3-8.2) g/dL Albumin 2.0 L (3.5-5.0) g/dL Crossmatch Assessment and Plan Assessment: -Acute on chronic blood loss anemia secondary to Acute GI bleed in a patient with history of esophageal varices, liver cirrhosis, portal hypertension, ongoing alcohol abuse, status post recent banding on 07/05 and 08/31. Reported hemoptysis at home, currently having melena stools. -Esophageal varices, recent banding 07/05, -Ongoing EtOH abuse, vodka bottle found in patient's pocket on admission. -Portal hypertension -Alcohol liver Cirrhosis with ascites. Last paracentesis 09/05/2018; cytology and cultures negative. -Coagulopathy -Hyperammoniemia -Ongoing nicotine dependence -Chronic pancreatitis -Nephrolithiasis -Hyperkalemia -Leukocytosis, possibly reactive -History of left sided traumatic rib fractures -Metabolic acidosis - Depression Plan: Continue on current medication regime, monitoring and symptomatic treatment. ,PPI. Diet advancement as per GI. Maintain Aldactone, Lasix, lactulose, Rocephin. Close monitoring of ammonia level, hemoglobin, electrolytes, with repeat labs ordered for a.m. CIWA protocol. Discussed at bedside patient's behaviors of medical noncompliance,ongoing active drinking -; psychiatry consulted.Prognosis guarded given multiple complex medical issues. The impression and plan of care has been dictated as directed. : I performed a history and examination of this patient, discussed the same with the dictator. I agree with the dictator's note ,documented as a scribe. Any additional findings or plans will be noted. Time taken: 35 minutes
--- NOTE | 2018-09-16 16:32 | P.PN ---
Subjective Progress Note Date: 09/16/18 Principal diagnosis: Hematemesis, melanotic stools, acute GI bleeding, esophageal varices. This is a 43-year-old white male patient of Dr. Meza, with the past medical history of liver cirrhosis related to alcohol abuse, recent history of GI bleeding requiring banding of the esophageal varices in June and again on 08/31/2018, when patient was hospitalized with severe blood loss anemia, requiring admission to the intensive care unit. Patient was discharged home, and he came back on on 09/13/2018 for evaluation of multiple episodes of hematemesis at home, and patient was passing some melanotic stools. Admission blood work showed a hemoglobin of 6.6, down from 8.4 on 09/09/2018, white blood cell count of 15.3, INR of 1.3, potassium 4.6, sodium 136, renal profile was within normal limits, plasma lactic acid was mildly elevated at 2.2, ammonia level was 42, and lipase was 175, urinalysis had some red blood cells in it, but negative for any signs of infection, occult stool was positive. Serum alcohol level was 99. During last admission his colonoscopy was aborted due to poor prep, and there were internal hemorrhoids seen. Note that the patient also underwent ultrasound-guided paracentesis on 09/05/2018 with removal of 5 L of ascitic fluid, and cytology was negative for bacteria or malignant cells. Cultures were negative. No fever or chills, patient was started on IV fluids and 0.9 normal saline at a rate of 100 ML per hour, and he is being transfused with 3 units of packed red blood cells, and this morning his hemoglobin is 7.4. No vasopressor support, patient is awake and alert, he denies any difficulty breathing, no chest pain, his abdomen is distended, and there is some tenderness upon palpation across the upper abdomen. White blood cell count is up to 22.1, INR is 1.4, sodium is 136, potassium 6.0, CO2 was 18, BUN is 14, creatinine 0.72. Patient is nothing by mouth this morning, his been evaluated by the GI service who is planning on proceeding with the EGD this morning On 09/15/2016 patient seen in follow-up in the intensive care unit, he is resting in bed, he is a fatigued, but no acute distress, patient has had no recurrence of hematemesis since yesterday, had a small bowel movement this morning, and he states it was "normal" in color. His morning's hemoglobin is 6.7, patient will receive another unit of blood for a total of 4 units of packed red blood cells this admission. Yesterday patient underwent paracentesis at the bedside, with removal of 4 L of ascitic fluid, and on today's exam patient's abdomen is less distended less tense and tender. He remains nothing by mouth except for ice chips. It is most EGD with variceal banding 4. Hemodynamically patient remains stable, today's chest x-ray has been reviewed with Dr. Isbell, and shows prominent interstitium, basilar atelectasis. I from pulmonary standpo int patient denies any dyspnea, her pulse ox is 93%, afebrile, hemodynamically stable. Remains on octreotide drip at 50 mics per hour. On 09/16/2018 patient is seen again in follow-up in intensive care unit, he is resting in bed, in no acute distress, room air pulse ox is 97%. Patient had 4 liquid black stools, with no recurrence of hematemesis. Today's hemoglobin is 7.8, and on unit of packed red blood cells has been ordered, patient continues on Inderal 10 mg 3 times daily, lactulose, octreotide drip. Abdomen is distended. Ammonia level is down to 82 from 200. Objective - Vital Signs Vital signs: Vital Signs Temp 98.5 F 09/16/18 16:00 Pulse 71 09/16/18 16:00 Resp 21 09/16/18 16:00 BP 136/68 09/16/18 16:00 Pulse Ox 97 09/16/18 16:00 Intake & Output 09/15/18 09/16/18 09/16/18 18:59 06:59 18:59 Intake Total 1976.6 1427.0 870 Output Total 1250 900 975 Balance 726.6 527.0 -105 Weight 99.5 kg Intake: IV 1426.6 1427.0 390 Octreotide 500 mcg In 226.6 277.0 50 Sodium Chloride 0.9% 250 ml @ 25.2 mls/hr IVPB Q10H [facility] Rx#:[id number] Sodium Chloride 0.9% 1, 1200 1100 340 000 ml @ 20 mls/hr IV . Q24H [facility] Rx#:[id number] cefTRIAXone 1 gm In 50 Sodium Chloride 0.9% 50 ml @ 100 mls/hr IVPB HS [facility] Rx#:[id number] Oral 240 480 Blood Product 310 Rc As-1 Unit 310 [id number] Output: Drainage 225 Right Lower Abdomen 225 Urine 1250 900 750 Other: Voiding Method Indwelling Catheter Indwelling Catheter Urinal - Exam GENERAL EXAM: Alert, 43-year-old white male, but no acute distress HEAD: Normocephalic/atraumatic. EYES: Normal reaction of pupils, equal size. Conjunctiva pink, sclera white. NOSE: Clear with pink turbinates. THROAT: No erythema or exudates. NECK: No masses, no JVD, no thyroid enlargement, no adenopathy. CHEST: No chest wall deformity. Symmetrical expansion. LUNGS: Equal air entry with no crackles, wheeze, rhonchi or dullness. CVS: Regular rate and rhythm, normal S1 and S2, no gallops, no murmurs, no rubs ABDOMEN: Soft, abdomen is distended, bowel sounds 4. No hepatosplenomegaly, normal bowel sounds, no guarding or rigidity. EXTREMITIES: No clubbing, no edema, no cyanosis, 2+ pulses and upper and lower extremities. MUSCULOSKELETAL: Muscle strength and tone normal. SPINE: No scoliosis or deformity SKIN: No rashes CENTRAL NERVOUS SYSTEM: Alert and oriented -3. No focal deficits, tone is normal in all 4 extremities. PSYCHIATRIC: Alert and oriented -3. Appropriate affect. Intact judgment and insight. - Labs CBC & Chem 7: 09/16/18 05:34 09/16/18 05:34 Labs: Abnormal Lab Results - Last 24 Hours (Table) 09/16/18 09/16/18 09/16/18 Range/Units 05:34 05:34 05:34 RBC 2.72 L (4.30-5.90) m/uL Hgb 7.8 L (13.0-17.5) gm/dL Hct 24.2 L (39.0-53.0) % RDW 17.6 H (11.5-15.5) % PT 14.1 H (9.0-12.0) sec INR 1.4 H (<1.2) Chloride (98-107) mmol/L Carbon Dioxide (22-30) mmol/L Creatinine (0.66-1.25) mg/dL Glucose (74-99) mg/dL Calcium (8.4-10.2) mg/dL Phosphorus (2.5-4.5) mg/dL Total Bilirubin (0.2-1.3) mg/dL Ammonia 82 H (<30) umol/L Total Protein (6.3-8.2) g/dL Albumin (3.5-5.0) g/dL 09/16/18 Range/Units 05:34 RBC (4.30-5.90) m/uL Hgb (13.0-17.5) gm/dL Hct (39.0-53.0) % RDW (11.5-15.5) % PT (9.0-12.0) sec INR (<1.2) Chloride 117 H (98-107) mmol/L Carbon Dioxide 20 L (22-30) mmol/L Creatinine 0.53 L (0.66-1.25) mg/dL Glucose 119 H (74-99) mg/dL Calcium 7.5 L (8.4-10.2) mg/dL Phosphorus 2.4 L (2.5-4.5) mg/dL Total Bilirubin 1.7 H (0.2-1.3) mg/dL Ammonia (<30) umol/L Total Protein 4.4 L (6.3-8.2) g/dL Albumin 2.0 L (3.5-5.0) g/dL Assessment and Plan Plan: Assessment: #1. Acute GI blood loss anemia, presenting with multiple episodes of hematemesis, and melanotic stools and hemoglobin of 6.6 on presentation. Patient is status post transfusion with a total of 4 units of packed red blood cells. #2. Recent hospitalization for GI bleeding, status post banding of the esophageal varices on 08/30/2018 and in June 2018 #3. Liver cirrhosis related to history of alcoholism #4. History of rib fractures on the left related to trauma #5. Leukocytosis, possibly reactive, rule out infectious etiology #6. Mild coagulopathy #7. Hyperkalemia #8. Non-anion gap metabolic acidosis #9. Long history of nicotine dependence, [id number] smoking history, #10. Possible COPD #11. Ascites with previous history of paracentesis, most recently on 09/05/2018 with removal of 5 L of ascitic fluid cytology was negative, cultures were negative Plan: Discontinue the octreotide drip, continue PPI therapy, hemoglobin is 7.8 today, patient is hemodynamically stable, we will add Lasix, and Aldactone, patient is stable to transfer out of the intensive care unit possibly later today. Continue to follow I performed a history & physical examination of the patient and discussed their management with my nurse practitioner, Nancy Hoyos. I reviewed the nurse practitioner's note and agree with the documented findings and plan of care. Lung sounds are positive for clear. The findings and the impression was discuss ed with the patient. I attest to the documentation by the nurse practitioner. Time with Patient: Less than 30
[2018-09-17] MEDS: MORPHINE SULFATE 2 MG/ML SYRINGE IV PRN ×4 (02:12→10:12)
[2018-09-17 05:17] LABS: Anisocytosis Slight; HCT 25.6 % (39.0-53.0); HGB 8.3 gm/dL (13.0-17.5); Hypochromasia Moderate; MCH 29.6 pg (25.0-35.0); MCHC 32.6 g/dL (31.0-37.0); MCV 90.6 fL (80.0-100.0); Platelet Count 226 k/uL (150-450); Poikilocytosis Slight; RBC 2.82 m/uL (4.30-5.90); RDW 19.7 % (11.5-15.5); WBC 15.9 k/uL (3.8-10.6)
[2018-09-17 05:32] LABS: ALT 30 U/L (21-72); AST 50 U/L (17-59); Alkaline Phosphatase 78 U/L (38-126); Anion Gap 4 mmol/L; Blood Urea Nitrogen 9 mg/dL (9-20); Calcium 7.6 mg/dL (8.4-10.2); Carbon Dioxide 19 mmol/L (22-30); Chloride 112 mmol/L (98-107); Glucose 109 mg/dL (74-99); Magnesium 1.7 mg/dL (1.6-2.3); Phosphorus 3.3 mg/dL (2.5-4.5); Potassium 3.9 mmol/L (3.5-5.1); Sodium 135 mmol/L (137-145); Total Bilirubin 1.1 mg/dL (0.2-1.3); Total Protein 4.5 g/dL (6.3-8.2)
[2018-09-17] MEDS ORDERED: Potassium Replacement Protocol 1 EACH MISC MISCELLANE PRN (06:21)
[2018-09-17] MEDS ORDERED: POTASSIUM CHLORIDE ER 20 MEQ TAB.ER PO SCH (07:00)
[2018-09-17] MEDS: MAGNESIUM SULFATE-D5W PMX 1 GM in DEXTROSE/WATER 1 100ML.BAG IVPB SCH ×2 (08:16→10:12)
[2018-09-17] MEDS: PROPRANOLOL 10 MG TAB PO SCH ×3 (08:18→21:21)
[2018-09-17] MEDS: LACTULOSE 20 GM/30 ML CUP PO SCH ×3 (08:18→20:11)
[2018-09-17] MEDS: FUROSEMIDE 20 MG TAB PO SCH ×2 (08:19→16:08)
[2018-09-17] MEDS: PANTOPRAZOLE 40 MG/10 ML VIAL IVP SCH (08:19)
[2018-09-17] MEDS: SPIRONOLACTONE 25 MG TAB PO SCH (08:19)
--- NOTE | 2018-09-17 11:12 | P.PN ---
Subjective Progress Note Date: 09/17/18 This is a 43-year-old gentleman with history of esophageal varices, portal hypertension ,ongoing alcohol abuse, liver cirrhosis, GI bleeds, noncompliant with medication regimen and multiple other medical issues admitted with complaints of vomiting bight red blood. Patient recently discharged on 09/06 status post EGD reporting esophageal varices, status post banding. (Prior to that patient had banding done on 07/05/18.)Colonoscopy at that time had been aborted secondary to poor prep, reported evidence of internal hemorrhoids. Paracentesis last admission of 5 L, with negative cytology. May 2018 h epatitis screen nonreactive. Telemetry sinus tachycardia. EKG reports sinus tachycardia.VSS. Hemoglobin 6.6, MCV 88, platelets 290 INR 1.3, lactic acid 2.2, abdominal x-ray reports nonacute abdomen, questionable groundglass opacity's of the left upper and lower lobes. Serum Alcohol level 99, ammonia level 57.This morning ICU reports melena stools, mostly clots. No further hemoptysis. Admitted to ICU. Patient has received a total of 3 units packed RBCs, current hemoglobin 7.4. Potassium 5.9, up to 6, received insulin, bicarbonate, D50 with recheck pending. T bili 1.8 AST 57, ALT 36, AP 83. Afebrile, WBC 15.3 on admission, increased to 22.1. Sodium 136. CO2 18, pO2 of 14, creatinine 0.72. Denies chest pain, palpitations or increasing shortness of breath. Evaluated by GI, scheduled for EGD. 09/15/18 patient underwent EGD yesterday reporting distal esophageal varices with variceal band ligation-4 bands. Maintained on Rocephin. Afebrile. Patient also had paracentesis completed yesterday with 4 L of dark yellow turbid peritoneal drainage. Tolerated procedures well. No further bleeding since yesterday, maintained on IV PPI as well as Sandostatin. Receiving 1 unit of pac ked RBCs for hemoglobin of 6.8. Continues on CIWA protocol, no DTs at this time. Telemetry sinus rhythm. Ammonia level ordered. T bili 1.7. Abdominal ultrasound reporting small ascites. 09/16/2018 no further bleeding, hemoglobin 7.8. Sandostatin weaned off. Ammonia decreased to 82 today from 200 yesterday, on lactulose. Reports diffuse abdominal discomfort. Afebrile. Continues on Lasix, Aldactone. Telemetry sinus rhythm. Site of prior paracentesis tap draining -serous drainage. Above documentation per nurse practitioner. 09/17/2018: Patient is resting comfortably in his bed. He remains in intensive care unit. He denies any chest pains, pressures, or shortness breath. His ab dominal pain is lessened. He has an order for morphine 2 mg IV push every 2 hours. He remains on furosemide and spironolactone along with Rocephin for antibiotic coverage. Hemoglobin is up to 8.3 today. Ammonia level is down to 46 today. He continues on lactulose. Objective - Vital Signs Vital signs: Vital Signs Temp 98.8 F 09/17/18 04:01 Pulse 68 09/17/18 06:00 Resp 14 09/17/18 06:00 BP 121/69 09/17/18 05:00 Pulse Ox 95 09/17/18 06:00 Intake & Output 09/16/18 09/17/18 09/17/18 18:59 06:59 18:59 Intake Total 1510 270 Output Total 1475 1280 Balance 35 -1010 Weight 99.1 kg Intake: IV 430 270 Octreotide 500 mcg In 50 Sodium Chloride 0.9% 250 ml @ 25.2 mls/hr IVPB Q10H [facility] Rx#:[id number] Sodium Chloride 0.9% 1, 380 220 000 ml @ 20 mls/hr IV . Q24H [facility] Rx#:[id number] cefTRIAXone 1 gm In 50 Sodium Chloride 0.9% 50 ml @ 100 mls/hr IVPB HS [facility] Rx#:[id number] Oral 1080 Output: Drainage 225 305 Right Lower Abdomen 225 305 Urine 1250 975 Other: Voiding Method Urinal # Voids 1 - Exam General: The patient is awake and alert, in no distress, and does not appear acutely ill. He no longer appears jaundiced Neck: The neck is supple, there is no thyromegaly, lymphadenopathy, tenderness or JVD. Cardiovascular: S1S2 is normal, There is a regular rate and rhythm. No murmur, rub or gallop is appreciated. Respiratory: Lungs are clear to auscultation bilaterally, respirations are non-labored, breath sounds are equal. Gastrointestinal: Soft, distended, minimally tender abdomen . Bowel sounds are unremarkable. There is hepatomegaly. There is a right lower quadrant drain for ascites. Musculoskeletal: Normal ROM, no tenderness, There is no pedal edema. There is no calf tenderness or swelling. No cords were appreciated. Neurological: CN II-XII intact, there are no obvious motor or sensory deficits. Coordination appears grossly intact. Speech is normal. He is awake alert and oriented 3 today. Skin: Skin is warm and dry and no rashes or lesions are noted. - Labs CBC & Chem 7: 09/17/18 05:09/17/18 05:01 Labs: Abnormal Lab Results - Last 24 Hours (Table) 09/13/18 09/17/18 09/17/18 Range/Units 21:38 05:01 05:01 WBC 15.9 H (3.8-10.6) k/uL RBC 2.82 L (4.30-5.90) m/uL Hgb 8.3 L (13.0-17.5) gm/dL Hct 25.6 L (39.0-53.0) % RDW 19.7 H (11.5-15.5) % Sodium 135 L (137-145) mmol/L Chloride 112 H (98-107) mmol/L Carbon Dioxide 19 L (22-30) mmol/L Creatinine 0.59 L (0.66-1.25) mg/dL Glucose 109 H (74-99) mg/dL Calcium 7.6 L (8.4-10.2) mg/dL Ammonia (<30) umol/L Total Protein 4.5 L (6.3-8.2) g/dL Albumin 2.0 L (3.5-5.0) g/dL Crossmatch See Detail 09/17/18 Range/Units 05:01 WBC (3.8-10.6) k/uL RBC (4.30-5.90) m/uL Hgb (13.0-17.5) gm/dL Hct (39.0-53.0) % RDW (11.5-15.5) % Sodium (137-145) mmol/L Chloride (98-107) mmol/L Carbon Dioxide (22-30) mmol/L Creatinine (0.66-1.25) mg/dL Glucose (74-99) mg/dL Calcium (8.4-10.2) mg/dL Ammonia 46 H (<30) umol/L Total Protein (6.3-8.2) g/dL Albumin (3.5-5.0) g/dL Crossmatch Assessment and Plan (1) Esophageal varices with bleeding Current Visit: No Status: Acute Code(s): I85.01 - ESOPHAGEAL VARICES WITH BLEEDING SNOMED Code(s): 37281845 (2) Acute blood loss anemia Current Visit: Yes Status: Acute Code(s): D62 - ACUTE POSTHEMORRHAGIC ANEMIA SNOMED Code(s): 118154225 (3) Depression Current Visit: Yes Status: Acute Code(s): F32.9 - MAJOR DEPRESSIVE DISORDER, SINGLE EPISODE, UNSPECIFIED SNOMED Code(s): 19390296 (4) Cirrhosis of liver with ascites Current Visit: Yes Status: Acute Code(s): K74.60 - UNSPECIFIED CIRRHOSIS OF LIVER; R18.8 - OTHER ASCITES SNOMED Code(s): 98659778 (5) GI bleed Current Visit: Yes Status: Acute Code(s): K92.2 - GASTROINTESTINAL HEMO RRHAGE, UNSPECIFIED SNOMED Code(s): 38210499 (6) Hyperammonemia Current Visit: Yes Status: Acute Code(s): E72.20 - DISORDER OF UREA CYCLE METABOLISM, UNSPECIFIED SNOMED Code(s): 7511071 (7) Abdominal pain Current Visit: No Status: Acute Code(s): R10.9 - UNSPECIFIED ABDOMINAL PAIN SNOMED Code(s): 40252048 (8) Alcohol abuse Current Visit: No Status: Acute Code(s): F10.10 - ALCOHOL ABUSE, UNCOMPLICATED SNOMED Code(s): 84107862 (9) Alcoholic pancreatitis Current Visit: No Status: Acute Code(s): K85.20 - ALCOHOL INDUCED ACUTE PANCREATITIS WITHOUT NECROSIS OR INFCT SNOMED Code(s): 071806902 (10) Coagulopathy Current Visit: No Status: Acute Code(s): D68.9 - COAGULATION DEFECT, U NSPECIFIED SNOMED Code(s): 95501055 (11) Esophageal varices Current Visit: No Status: Acute Code(s): I85.00 - ESOPHAGEAL VARICES WITHOUT BLEEDING SNOMED Code(s): 03335199 Plan: He is medically cleared to go to the floor. He'll continue on his current medications of Aldactone, Lasix and lactulose, Rocephin. We'll continue to monitor his ammonia level, electrolytes and CBC. CIWA protocol remains in place. Psych consult is pending for suspected significant depression self medicate with alcohol.. Repeat labs in am. He'll be reevaluated next 24 hours. Wait on [facility] consultant recommendations.
[2018-09-17] MEDS: HYDROmorphone 2 MG TAB PO PRN ×2 (12:57→19:59)
[2018-09-17] MEDS: SODIUM CHLORIDE 0.9% 1,000 ML IV SCH (12:58)
--- NOTE | 2018-09-17 13:48 | PN ---
PROGRESS NOTE DATE OF DICTATION: 09/17/2018 Patient is a 43-year-old white male with history of alcoholic cirrhosis of the liver, admitted to the hospital with acute upper gastrointestinal bleed. He underwent an upper endoscopy by Dr. Harrington 2 days ago and was noted to have distal esophageal varices which were ligated. Since then has been doing well. He did not have any further episodes of bleeding. He received total of 4 units of blood transfusion during this hospitalization. Hemoglobin today is 8.3 g/dL. He complains of abdominal pain. He did undergo large volume paracentesis and had some leaking in the right lower quadrant area where a colostomy bag was placed and there was approximately an ounce of serous fluid noted. He had one black tarry stool last night. PHYSICAL EXAMINATION: Appears comfortable. Vital signs are stable. Blood pressure 130/65, pulse is 79, temperature is 98.8. HEENT examination unremarkable. Pupils are pink. Sclerae anicteric. Oral cavity, no lesions. NECK: Supple. No JVD or lymph node enlargement. CHEST: Clear to auscultation. HEART: Regular rate and rhythm. ABDOMEN: Soft. It was slightly distended. Colostomy bag in the right lower quadrant with serous fluid draining from the ascitic tap. EXTREMITIES: No pedal edema. SKIN: No rashes. NEUROLOGIC: Alert and oriented x3. No focal deficits. LABS: WBC 15.9, hemoglobin 8.3, platelets are 226. INR 1.4. T bili, AST, ALT, alkaline phosphatase are normal. IMPRESSION: 1. Acute esophageal variceal bleeding status post variceal ligation 2 days ago and presently hemodynamically stable, hemoglobin is 8.6 g/dL. 2. Ascites status post large volume paracentesis. Presently on Lasix 20 mg twice daily and low-salt diet. 3. Possible small bowel perforation on broad-spectrum antibiotics. RECOMMENDATIONS: 1. Continue with symptomatic supportive care. 2. Continue with antibiotics. 3. Advance diet as tolerated. 4. If he remains stable, he can be discharged to the floor today. MMODL / IJN: [id number] /
--- NOTE | 2018-09-17 13:53 | P.PN ---
Subjective Progress Note Date: 09/17/18 On 09/17/2018 I'm seeing this patient for a follow-up. Mental status is appropriate. No seizure activity. No altered mentation. No nausea. No vomiting. No hematemesis. No melanotic stool. Hemoglobin is stable. The patient is currently off the octreotide. The patient is on lactulose and is producing adequate bowel movements. The patient is also on a combination of Lasix and Aldactone. The patient is on Inderal. Abdomen is distended. There is minimal amount of leak at the site of paracentesis was done earlier. No fever. No chills. The patient remains on IV Rocephin. Objective - Vital Signs Vital signs: Vital Signs Temp 97.5 F L 09/17/18 08:00 Pulse 66 09/17/18 12:00 Resp 15 09/17/18 12:00 BP 100/54 09/17/18 12:00 Pulse Ox 95 09/17/18 12:00 Intake & Output 09/16/18 09/17/18 09/17/18 18:59 06:59 18:59 Intake Total 1218 001 9318 Output Total 1475 1280 385 Balance 35 -1010 795 Weight 99.1 kg Intake: IV 430 270 120 Octreotide 500 mcg In 50 Sodium Chloride 0.9% 250 ml @ 25.2 mls/hr IVPB Q10H [facility] Rx#:[id number] Sodium Chloride 0.9% 1, 380 220 120 000 ml @ 20 mls/hr IV . Q24H [facility] Rx#:[id number] cefTRIAXone 1 gm In 50 Sodium Chloride 0.9% 50 ml @ 100 mls/hr IVPB HS [facility] Rx#:[id number] Intake, IV Titration 200 Amount Magnesium Sulfate-D5w Pmx 200 1 gm In Dextrose/Water 1 100ml.bag @ 100 mls/hr IVPB Q1H [facility] Rx#: [id number] Oral 1080 860 Output: Drainage 225 305 60 Right Lower Abdomen 225 305 60 Urine 1250 975 325 Other: Voiding Method Urinal Urinal # Voids 1 - Exam GENERAL EXAM: Alert, 43-year-old white male, but no acute distress HEAD: Normocephalic/atraumatic. EYES: Normal reaction of pupils, equal size. Conjunctiva pink, sclera white. NOSE: Clear with pink turbinates. THROAT: No erythema or exudates. NECK: No masses, no JVD, no thyroid enlargement, no adenopathy. CHEST: No chest wall deformity. Symmetrical expansion. LUNGS: Equal air entry with no crackles, wheeze, rhonchi or dullness. CVS: Regular rate and rhythm, normal S1 and S2, no gallops, no murmurs, no rubs ABDOMEN: Soft, abdomen is distended, bowel sounds 4. No hepatosplenomegaly, normal bowel sounds, no guarding or rigidity. EXTREMITIES: No clubbing, no edema, no cyanosis, 2+ pulses and upper and lower extremities. MUSCULOSKELETAL: Muscle strength and tone normal. SPINE: No scoliosis or deformity SKIN: No rashes CENTRAL NERVOUS SYSTEM: Alert and oriented -3. No focal deficits, tone is normal in all 4 extremities. PSYCHIATRIC: Alert and oriented -3. Appropriate affect. Intact judgment and insight. - Labs CBC & Chem 7: 09/17/18 05:01 09/17/18 05:01 Labs: Abnormal Lab Results - Last 24 Hours (Table) 09/13/18 09/17/18 09/17/18 Range/Units 21:38 05:01 05:01 WBC 15.9 H (3.8-10.6) k/uL RBC 2.82 L (4.30-5.90) m/uL Hgb 8.3 L (13.0-17.5) gm/dL Hct 25.6 L (39.0-53.0) % RDW 19.7 H (11.5-15.5) % Sodium 135 L (137-145) mmol/L Chloride 112 H (98-107) mmol/L Carbon Dioxide 19 L (22-30) mmol/L Creatinine 0.59 L (0.66-1.25) mg/dL Glucose 109 H (74-99) mg/dL Calcium 7.6 L (8.4-10.2) mg/dL Ammonia (<30) umol/L Total Protein 4.5 L (6.3-8.2) g/dL Albumin 2.0 L (3.5-5.0) g/dL Crossmatch See Detail 09/17/18 Range/Units 05:01 WBC (3.8-10.6) k/uL RBC (4.30-5.90) m/uL Hgb (13.0-17.5) gm/dL Hct (39.0-53.0) % RDW (11.5-15.5) % Sodium (137-145) mmol/L Chloride (98-107) mmol/L Carbon Dioxide (22-30) mmol/L Creatinine (0.66-1.25) mg/dL Glucose (74-99) mg/dL Calcium (8.4-10.2) mg/dL Ammonia 46 H (<30) umol/L Total Protein (6.3-8.2) g/dL Albumin (3.5-5.0) g/dL Crossmatch Assessment and Plan Plan: #1. Acute GI blood loss anemia, presenting with multiple episodes of hematemesis, and melanotic stools and hemoglobin of 6.6 on presentation. Patient is status post transfusion with a total of 4 units of packed red blood cells. The patient underwent further intervention and esophageal banding and the patient has not had any episodes of bleeding since and the patient's hemoglobin is at 8.3 and the patient remains on IV or chills times. #2. Recent hospitalization for GI bleeding, status post banding of the esophageal varices on 08/30/2018 and in June 2018 #3. Liver cirrhosis related to history of alcoholism #4. History of rib fractures on the left related to trauma #5. Leukocytosis, possibly reactive, rule out infectious etiology #6. Mild coagulopathy #7. Hyperkalemia #8. Non-anion gap metabolic acidosis #9. Long history of nicotine dependence, [id number] smoking history, #10. Possible COPD #11. Ascites with previous history of paracentesis, most recently on 09/05/2018 with removal of 5 L of ascitic fluid cytology was negative, cultures were negative Plan Continue same treatment. Fluid restriction. Lasix and Aldactone. Lactulose. Monitor hemoglobin. Transfer this patient to medical floor. The prognosis poor based on his history of chronic alcoholism and liver cirrhosis. The patient is an active alcohol drinker.
[2018-09-17] MEDS: PANTOPRAZOLE 40 MG TABLET PO SCH (17:07)
[2018-09-18] MEDS: HYDROmorphone 2 MG TAB PO PRN ×4 (01:49→19:42)
[2018-09-18] MEDS: LACTULOSE 20 GM/30 ML CUP PO SCH ×3 (07:51→20:25)
[2018-09-18] MEDS: PROPRANOLOL 10 MG TAB PO SCH ×3 (07:52→21:01)
[2018-09-18] MEDS: FUROSEMIDE 20 MG TAB PO SCH ×2 (07:52→15:52)
[2018-09-18] MEDS: SPIRONOLACTONE 25 MG TAB PO SCH (07:52)
[2018-09-18] MEDS: PANTOPRAZOLE 40 MG TABLET PO SCH ×2 (08:00→17:07)
[2018-09-18 08:44] LABS: ALT 36 U/L (21-72); AST 49 U/L (17-59); Albumin 2.2 g/dL (3.5-5.0); Alkaline Phosphatase 84 U/L (38-126); Anion Gap 3 mmol/L; Blood Urea Nitrogen 8 mg/dL (9-20); Calcium 7.8 mg/dL (8.4-10.2); Carbon Dioxide 23 mmol/L (22-30); Chloride 107 mmol/L (98-107); Glucose 115 mg/dL (74-99); Magnesium 1.7 mg/dL (1.6-2.3); Potassium 4.1 mmol/L (3.5-5.1); Sodium 133 mmol/L (137-145); Total Bilirubin 1.1 mg/dL (0.2-1.3); Total Protein 4.8 g/dL (6.3-8.2)
[2018-09-18 08:55] LABS: INR 1.3 (<1.2); Prothrombin Time 13.4 sec (9.0-12.0)
[2018-09-18 09:09] LABS: Anisocytosis Moderate; HCT 28.4 % (39.0-53.0); HGB 8.9 gm/dL (13.0-17.5); Hypochromasia Moderate; MCH 28.6 pg (25.0-35.0); MCHC 31.5 g/dL (31.0-37.0); Macrocytosis Slight; Platelet Count 312 k/uL (150-450); Poikilocytosis Slight; RBC 3.11 m/uL (4.30-5.90); RDW 20.7 % (11.5-15.5); WBC 22.1 k/uL (3.8-10.6)
--- NOTE | 2018-09-18 09:44 | PN ---
PROGRESS NOTE DATE OF SERVICE: September 18, 2018. REQUESTING PHYSICIAN: Dr. Meza The patient is a 43-year-old white male with history of alcoholic cirrhosis, admitted to the hospital with acute esophageal variceal bleeding. He underwent an upper endoscopy with variceal ligation by Dr. Harrington 3 days ago. He was transferred from the intensive care unit yesterday. He still complains of some abdominal discomfort. He has some serous drainage at the site of paracentesis and has a colostomy bag in place. He still complains of abdominal pain with swelling of his lower extremities. Denies any nausea, vomiting. Tolerating regular diet very well. Had one dark colored stools early this morning. PHYSICAL EXAMINATION: Appears comfortable no apparent distress. VITAL SIGNS: Stable. Blood pressure is 122/86, pulse rate 88, and afebrile. HEENT examination unremarkable. Conjunctivae pink. Sclerae anicteric. Oral cavity no lesions. NECK: No jugular venous distention or lymph node enlargement. CHEST was clear to auscultation. HEART: Regular rate and rhythm. ABDOMEN: Soft. There was a colostomy bag in the right lower quadrant area with about 30 mL of serous fluid noted. The rest of the abdomen was slightly tender. EXTREMITIES: 2+ pedal edema. SKIN: No rashes. NEUROLOGICAL: He is alert and oriented x3. No focal deficits. LABS: From this morning INR 1.3. Basic metabolic panel is within normal limits. Ammonia is 33. CBC is still pending. Yesterday hemoglobin 8.3. IMPRESSION: 1. Alcoholic cirrhosis of the liver with portal hypertension and ascites status post large volume paracentesis 3 days ago and 5 L of fluid was aspirated. Presently on Lasix 20 b.i.d. and Aldactone 25 daily. 2. Acute esophageal variceal bleeding status post EGD with variceal ligation 3 days ago. Currently, no further bleeding. Hemoglobin stable at 8.3 g/dL. 3. History of hepatic encephalopathy which is under control. Ammonia has improved. RECOMMENDATIONS: 1. Increase the Lasix to 40 b.i.d. 2. Increase Aldactone to 100 mg daily. 3. Continue with broad-spectrum antibiotics. 4. Advance diet as tolerated. Thank you for this consultation. MMODL / IJN: [id number] /
[2018-09-18] MEDS ORDERED: Magnesium Replacement Protocol 1 EACH MISC MISCELLANE PRN (09:49)
[2018-09-18 10:07] LABS: Eosinophils # (M) 0.88 k/uL (0-0.7); Lymphocytes # (M) 1.55 k/uL (1.0-4.8); Monocytes # (M) 1.77 k/uL (0-1.0); Neutrophils % (M) 81 %; Nucleated Red Blood Cells 0 /100 WBC (0-0); Total Cells Counted 100
[2018-09-18] MEDS: SODIUM CHLORIDE 0.9% 1,000 ML IV SCH (10:08)
[2018-09-18] MEDS: MAGNESIUM SULFATE-D5W PMX 1 GM in DEXTROSE/WATER 1 100ML.BAG IVPB SCH ×2 (10:13→11:24)
[2018-09-18] MEDS: MORPHINE SULFATE 2 MG/ML SYRINGE IVP PRN ×3 (10:42→20:23)
[2018-09-18 10:57] LABS: Appearance,Urine Clear (Clear); Bilirubin,Urine Negative (Negative); Blood,Urine Negative (Negative); Color,Urine Yellow; Glucose,Urine (UA) Negative (Negative); Ketones,Urine Negative (Negative); Leukocyte Esterase,Urine Negative (Negative); Nitrite,Urine Negative (Negative); PH, Urine 5.5 (5.0-8.0); Protein,Urine Negative (Negative); Specific Gravity,Urine 1.016 (1.001-1.035)
--- NOTE | 2018-09-18 11:13 | XR ---
EXAMINATION TYPE: XR chest 2V DATE OF EXAM: 09/18/2018 HISTORY: eval for leukocytosis. REFERENCE: Previous study dated 09/15/2018. FINDINGS: There are chronic interstitial changes in both lungs. There is minimal blunting of the righ t CP angle. This was present previously. There is no focal pneumonia. The heart is not enlarged. IMPRESSION: 1. PROMINENT INTERSTITIUM, UNCHANGED FROM PREVIOUS. 2. I COULD NOT EXCLUDE A SMALL, RIGHT PLEURAL EFFUSION.
--- NOTE | 2018-09-18 11:25 | P.PN ---
Subjective This is a 43-year-old gentleman with history of esophageal varices, portal hypertension ,ongoing alcohol abuse, liver cirrhosis, GI bleeds, noncompliant with medication regimen and multiple other medical issues admitted with complaints of vomiting bight red blood. Patient recently discharged on 09/06 status post EGD reporting esophageal varices, status post banding. (Prior to that patient had banding done on 07/05/18.)Colonoscopy at that time had been aborted secondary to poor prep, reported evidence of internal hemorrhoids. Paracentesis last admission of 5 L, with negative cytology. May 2018 hepatitis screen nonreactive. Telemetry sinus tachycardia. EKG reports sinus tachycardia.VSS. Hemoglobin 6.6, MCV 88, platelets 290 INR 1.3, lactic acid 2.2, abdominal x-ray reports nonacute abdomen, questionable groundglass opacity's of the left upper and lower lobes. Serum Alcohol level 99, ammonia level 57.This morning ICU reports melena stools, mostly clots. No further hemoptysis. Admitted to ICU. Patient has received a total of 3 units packed RBCs, current hemoglobin 7.4. Potassium 5.9, up to 6, received insulin, bicarbonate, D50 with recheck pending. T bili 1.8 AST 57, ALT 36, AP 83. Afebrile, WBC 15.3 on admission, increased to 22.1. Sodium 136. CO2 18, pO2 of 14, creatinine 0.72. Denies chest pain, palpitations or increasing shortness of breath. Evaluated by GI, scheduled for EGD. 09/15/18 patient underwent EGD yesterday reporting distal esophageal varices with variceal band ligation-4 bands. Maintained on Rocephin. Afebrile. Patient also had paracentesis completed yesterday with 4 L of dark yellow turbid peritoneal drainage. Tolerated procedures well. No further bleeding since yesterday, maintained on IV PPI as well as Sandostatin. Receiving 1 unit of packed RBCs for hemoglobin of 6.8. Continues on CIWA protocol, no DTs at this time. Telemetry sinus rhythm. Ammonia level ordered. T bili 1.7. Abdominal ultrasound reporting small ascites. 09/16/2018 no further bleeding, hemoglobin 7.8. Sandostatin weaned off. Ammonia decreased to 82 today from 200 yesterday, on lactulose. Reports diffuse abdominal discomfort. Afebrile. Continues on Lasix, Aldactone. Telemetry sinus rhythm. Site of prior paracentesis tap draining -serous drainage. Above documentation per nurse practitioner. 09/17/2018: Patient is resting comfortably in his bed. He remains in intensive care unit. He denies any chest pains, pressures, or shortness breath. His abdominal pain is lessened. He has an order for morphine 2 mg IV push every 2 hours. He remains on furosemide and spironolactone along with Rocephin for antibiotic coverage. Hemoglobin is up to 8.3 today. Ammonia level is down to 46 today. He continues on lactulose. 09/18/2018: Patient been transferred to [facility]. He continues complaining of abdominal pain. He denies any chest pains, pressures, or shortness of breath. His pain medication morphine is been decreased to 1 mg IV push every 4 hours as needed and Dilaudid 2 mg every 6 hours as needed was added. Hemoglobin is improved 8.9. He also has developed a leukocytosis that is worsened. It's gone from 10.2-15.9 and today it is 22.1 with 17.9 absolute neutrophils. INR is 1.3. Ammonia level is improved at 33 today. He is developed a mild hyponatremia at 133. He remains on antibiotic coverage of Rocephin 1 g daily. He continues on Lasix and swollen lactone for ascites control. He continues to have a drain with minimal discharge for ascites. He remains on propanolol for hypertension and esophageal varices controlled. He remains on lactulose to help control his ammonia level. Objective - Vital Signs Vital signs: Vital Signs Temp 99.4 F 09/18/18 05:25 Pulse 78 09/18/18 05:25 Resp 20 09/18/18 05:25 BP 108/59 09/18/18 05:25 Pulse Ox 96 09/18/18 05:25 Intake & Output 09/17/18 09/18/18 09/18/18 18:59 06:59 18:59 Intake Total 1480 600 Output Total 985 30 Balance 495 600 -30 Intake: IV 180 Sodium Chloride 0.9% 1, 180 000 ml @ 20 mls/hr IV . Q24H [facility] Rx#:[id number] Intake, IV Titration 200 Amount Magnesium Sulfate-D5w Pmx 200 1 gm In Dextrose/Water 1 100ml.bag @ 100 mls/hr IVPB Q1H [facility] Rx#: [id number] Oral 1100 600 Output: Drainage 160 30 Right Lower Abdomen 160 30 Urine 825 Other: Voiding Method Urinal # Voids 1 - Exam General: The patient is awake and alert, in minimal finding distress, and does not appear acutely ill. He no longer appears jaundiced Neck: The neck is supple, there is no thyromegaly, lymphadenopathy, tenderness or JVD. Cardiovascular: S1S2 is normal, There is a regular rate and rhythm. No murmur, rub or gallop is appreciated. Respiratory: Lungs are coarse to auscultation bilaterally, respirations are non-labored, breath sounds are equal. Gastrointestinal: Soft, distended, mildly tender abdomen to multiple locations including the right upper and left upper and left lower quadrants. Bowel sounds are unremarkable. There is hepatomegaly. There is a right lower quadrant drain for ascites. Scant amount of straw-colored fluid is present. Musculoskeletal: Normal ROM, no tenderness, There is no pedal edema. There is no calf tenderness, there is +1 pedal edema swelling. No cords were appreciated. Neurological: CN II-XII intact, there are no obvious motor or sensory deficits. Coordination appears grossly intact. Speech is normal. He is awake alert and oriented 3 today. Skin: Skin is warm and dry and no rashes or lesions are noted. - Labs CBC & Chem 7: 09/18/18 08:09 09/18/18 08:09 Labs: Abnormal Lab Results - Last 24 Hours (Table) 09/18/18 09/18/18 09/18/18 Range/Units 08:09 08:09 08:09 WBC 22.1 H (3.8-10.6) k/uL RBC 3.11 L (4.30-5.90) m/uL Hgb 8.9 L (13.0-17.5) gm/dL Hct 28.4 L (39.0-53.0) % RDW 20.7 H (11.5-15.5) % Neutrophils # (Manual) 17.90 H (1.3-7.7) k/uL Monocytes # (Manual) 1.77 H (0-1.0) k/uL Eosinophils # (Manual) 0.88 H (0-0.7) k/uL PT 13.4 H (9.0-12.0) sec INR 1.3 H (<1.2) Sodium 133 L (137-145) mmol/L BUN 8 L (9-20) mg/dL Creatinine 0.61 L (0.66-1.25) mg/dL Glucose 115 H (74-99) mg/dL Calcium 7.8 L (8.4-10.2) mg/dL Ammonia (<30) umol/L Total Protein 4.8 L (6.3-8.2) g/dL Albumin 2.2 L (3.5-5.0) g/dL 09/18/18 Range/Units 08:09 WBC (3.8-10.6) k/uL RBC (4.30-5.90) m/uL Hgb (13.0-17.5) gm/dL Hct (39.0-53.0) % RDW (11.5-15.5) % Neutrophils # (Manual) (1.3-7.7) k/uL Monocytes # (Manual) (0-1.0) k/uL Eosinophils # (Manual) (0-0.7) k/uL PT (9.0-12.0) sec INR (<1.2) Sodium (137-145) mmol/L BUN (9-20) mg/dL Creatinine (0.66-1.25) mg/dL Glucose (74-99) mg/dL Calcium (8.4-10.2) mg/dL Ammonia 33 H (<30) umol/L Total Protein (6.3-8.2) g/dL Albumin (3.5-5.0) g/dL Assessment and Plan (1) Esophageal varices with bleeding Current Visit: No Status: Acute Code(s): I85.01 - ESOPHAGEAL VARICES WITH BLEEDING SNOMED Code(s): 37561064 (2) Acute blood loss anemia Current Visit: Yes Status: Acute Code(s): D62 - ACUTE POSTHEMORRHAGIC ANEMIA SNOMED Code(s): 992121654 (3) Depression Current Visit: Yes Status: Acute Code(s): F32.9 - MAJOR DEPRESSIVE DISORDER, SINGLE EPISODE, UNSPECIFIED SNOMED Code(s): 46700464 (4) Cirrhosis of liver with ascites Current Visit: Yes Status: Acute Code(s): K74.60 - UNSPECIFIED CIRRHOSIS OF LIVER; R18.8 - OTHER ASCITES SNOMED Code(s): 12748395 (5) GI bleed Current Visit: Yes Status: Acute Code(s): K92.2 - GASTROINTESTINAL HEMORRHAGE, UNSPECIFIED SNOMED Code(s): 85383603 (6) Hyperammonemia Current Visit: Yes Status: Acute Code(s): E72.20 - DISORDER OF UREA CYCLE METABOLISM, UNSPECIFIED SNOMED Code(s): 2561323 (7) Abdominal pain Current Visit: No Status: Acute Code(s): R10.9 - UNSPECIFIED ABDOMINAL PAIN SNOMED Code(s): 72787258 (8) Alcohol abuse Current Visit: No Status: Acute Code(s): F10.10 - ALCOHOL ABUSE, UNCOMPLICATED SNOMED Code(s): 26064941 (9) Alcoholic pancreatitis Current Visit: No Status: Acute Code(s): K85.20 - ALCOHOL INDUCED ACUTE PANCREATITIS WITHOUT NECROSIS OR INFCT SNOMED Code(s): 206554828 (10) Coagulopathy Current Visit: No Status: Acute Code(s): D68.9 - COAGULATION DEFECT, UNSPECIFIED SNOMED Code(s): 39721253 (11) Esophageal varices Current Visit: No Status: Acute Code(s): I85.00 - ESOPHAGEAL VARICES WITHOUT BLEEDING SNOMED Code(s): 37074981 (12) Neutrophilic leukocytosis Current Visit: Yes Status: Acute Code(s): D72.9 - DISORDER OF WHITE BLOOD CELLS, UNSPECIFIED SNOMED Code(s): 532144103 (13) Hyponatremia Current Visit: Yes Status: Acute Code(s): E87.1 - HYPO-OSMOLALITY AND HYPONATREMIA SNOMED Code(s): 43636029 (14) Portal hypertension Current Visit: No Status: Acute Code(s): K76.6 - PORTAL HYPERTENSION SNOMED Code(s): 27208048 (15) Thrombocytopenia Current Visit: No Status: Acute Code(s): D69.6 - THROMBOCYTOPENIA, UNSPECIFIED SNOMED Code(s): 601119688 (16) Coagulopathy Current Visit: No Status: Chronic Code(s): D68.9 - COAGULATION DEFECT, UNSPECIFIED SNOMED Code(s): 86844711 Plan: He'll continue on his current medications of Aldactone, Lasix and lactulose, Rocephin. We'll continue to monitor his ammonia level, electrolytes and CBC. CIWA protocol remains in place. Psych consult is pending for suspected significant depression self medicate with alcohol.. Repeat labs in am. Initial urinalysis and chest x-ray are negative for evidence of infection. We'll consult infectious diseases for concern about beginnings of spontaneous bacterial peritonitis He'll be reevaluated next 24 hours. Wait on furniture sales consultant recommendations.
--- NOTE | 2018-09-18 14:21 | P.CONS ---
History of Present Illness - Reason for Consult Consult date: 09/18/18 - Chief Complaint leukocytosis - History of Present Illness 43-year-old male has significant recent past medical history regarding his declining status regarding his chronic alcoholism and chronic liver disease. He was recently hospitalized. At that point in time he just intestinal ble eding and was noted by gastroenterology and bleeding esophageal varices were clipped. Shortly after his discharge and patient again had some bleeding and again was evaluated and had further esophageal variceal clips applied. The patient is not feeling very well. He has ascites that is uncomfortable, worsening lower extremity edema and feels poorly overall. His temperature has increased 99.4 he feels chilled but without rigor. The laboratories reveal evidence of elevated total bilirubin which seems to be improving at this time. With leukocytosis and concerns to worsening infection the consult was requested. Review of Systems HEENT:Denies headache or acute visual change. Denies sinus or mouth discomforts. Denies neck stiffness or pain. Denies significant oral cavity pain. Denies difficulty on swallowing. Lungs: Denies significant shortness of breath, cough, sputum production, or hemoptysis. Cardiovascular: Denies significant shortness of breath, chest pain, chest wall pain, orthopnea, dyspnea on exertion, syncope Gastrointestinal:poor appetite, hematemesis now under control denies hematochezia or notation of melena does have abdominal distention and discomfort Musculoskeletal: denies significant myalgias or arthralgias. No new joint swe lling. Denies new back pain. Skin: Denies new rash or lesions. No new ulcers or wounds are related.. Neuro: Denies headache or visual change. Denies any new onset weakness or difficulty with ambulation. Denies falls or seizures. 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 Past Anesthesia/Blood Transfusion Reactions: Previous Problems w/ Anesthesia Additional Past Anesthesia/Blood Transfusion Reaction / Comm: Woke up during scope procedure. Past Psychological History: PTSD Additional Psychological History / Comment(s): PT currently resides at parent's house with his significant other. active alcohol use. No current recreational drug use. No current injection drug use. Nonemployed. and complains about that situation Smoking Status: Current every day smoker Past Alcohol Use History: Abuse, Daily Additional Past Alcohol Use History / Comment(s): Pt states he started smoking in 1983 and is a ppd smoker. PT states reduced the amount of alcohol to a few days a week, drinking 2-3 drinks on those occasions. Pt states used to drink a fifth or 1/2 gallon and some beers daily. Past Drug Use History: Marijuana Additional Drug Use History / Comment(s): Pt states he smokes marijuana on occasion. No other drug use. - Past Family History Mother Family Medical History: Hypertension Father Additional Family Medical History / Comment(s): Prostate issues. Brain aneurysm. Medications and Allergies Home Medications and Allergies Comment(s): Current Medications Furosemide (Lasix) 40 mg PO BID@0900,1600 [facility] Hydromorphone HCl (Dilaudid) 2 mg PO Q6HR PRN PRN Reason: Analgesia Last Admin: 09/18/18 13:30 Dose: 2 mg Documented by: Sodium Chloride (Saline 0.9%) 1,000 mls @ 20 mls/hr IV .Q24H [facility] Last Admin: 09/18/18 10:08 Dose: Not Given Documented by: Piperacillin Sod/Tazobactam (Sod 3.375 gm/ Sodium Chloride) 100 mls @ 25 mls/hr IVPB Q8HR [facility] Lactulose (Cephulac) 20 gm PO TID [facility] Last Admin: 09/18/18 07:51 Dose: 20 gm Documented by: Miscellaneous Information (Potassium Per Protocol) 1 each MISCELLANE DAILY PRN; Protocol PRN Reason: Per Protocol Miscellaneous Information (Magnesium Per Protocol) 1 each MISCELLANE DAILY PRN; Protocol PRN Reason: Per Protocol Morphine Sulfate (Morphine Sulfate (Inj)) 2 mg IVP Q4H PRN PRN Reason: Pain/Discomfort Last Admin: 09/18/18 10:42 Dose: 2 mg Documented by: Naloxone HCl (Narcan) 0.2 mg IV Q2M PRN PRN Reason: Opioid Reversal Ondansetron HCl (Zofran) 4 mg IVP Q6HR PRN PRN Reason: Nausea And Vomiting Last Admin: 09/14/18 01:59 Dose: 4 mg Documented by: Pantoprazole Sodium (Protonix) 40 mg PO AC-BID [facility] Last Admin: 09/18/18 08:00 Dose: 40 mg Documented by: Propranolol HCl (Inderal) 10 mg PO TID [facility] Last Admin: 09/18/18 07:52 Dose: 10 mg Documented by: Spironolactone (Aldactone) 100 mg PO DAILY [facility] Home Medications Medication Instructions Recorded Confirmed Type Folic Acid 1 mg PO DAILY@1200 09/01/17 09/13/18 History Multivitamins, Thera [Multivitamin 1 tab PO DAILY #30 tablet 09/03/17 09/13/18 Rx (formulary)] Thiamine [Vitamin B-1] 100 mg PO DAILY #30 tablet 09/03/17 09/13/18 Rx Propranolol [Inderal] 10 mg PO TID 08/30/18 09/13/18 History Lactulose [Cephulac] 20 gm PO TID #900 ml 09/06/18 09/13/18 Rx Pantoprazole [Protonix] 40 mg PO BID #60 tablet. 09/06/18 09/13/18 Rx Albuterol Inhaler [Ventolin Hfa 2 puff INHALATION RT-Q6H PRN 09/13/18 09/13/18 History Inhaler] Furosemide [Lasix] 20 mg PO DAILY 09/14/18 09/14/18 History Allergies Allergy/AdvReac Type Severity Reaction Status Date / Time No Known Allergies Allergy Verified 09/13/18 21:56 Physical Exam Vitals: Vital Signs Temp Pulse Pulse Resp BP BP Pulse Ox 09/18/18 05:25 99.4 F 78 20 108/59 96 09/17/18 21:25 98.4 F 75 20 111/65 97 09/17/18 16:35 97.8 F 68 H 125/64 15 L 09/17/18 16:00 67 14 120/61 92 L 09/17/18 15:33 14 09/17/18 15:00 65 14 117/57 91 L Intake and Output 09/17/18 09/18/18 09/18/18 22:59 06:59 14:59 Intake Total 660 200 Output Total 300 30 Balance 360 200 -30 Intake: IV 20 Sodium Chloride 0.9% 1, 20 000 ml @ 20 mls/hr IV . Q24H [facility] Rx#:[id number] Oral 640 200 Output: Drainage 30 Right Lower Abdomen 30 Urine 300 Other: Voiding Method Urinal # Voids 1 1 43-year-old male who appears older than his stated age, relates he feels poorly HEENT: Anicteric conjunctiva are pink and moist nasal mucosa grossly intact without significant lesions, there is no thrush. Neck: The neck is supple without significant lymphadenopathy or thyromegaly. Lungs: Good bilateral air entry without significant crackles or wheezing. There is no significant bronchial sounds. There is no egophony or dullness. Heart: Regular rate and rhythm with an audible S1-S2, no S3 no S4. There is no significant murmur click or rub, PMI was nondisplaced. Abdomen: easily palpable ascites with distended abdomen, however is related this is considerably better than it was before the paracentesis of 09/05/2018. There is some generalized abdominal discomfort upon exam. Organomegaly cannot be palpated Extremities: extremities reveal evidence of the generalized edema to the lower extremity but no open ulcerations are seen. The feet are well perfused with adequate capillary refill Neuro: Awake alert oriented to person place and time. There are no acute new gross focal sensory motor deficits. Results CBC & Chem 7: 09/18/18 08:09 09/18/18 08:09 Labs: Abnormal Lab Results - Last 24 Hours (Table) 09/18/18 09/18/18 09/18/18 Range/Units 08:09 08:09 08:09 WBC 22.1 H (3.8-10.6) k/uL RBC 3.11 L (4.30-5.90) m/uL Hgb 8.9 L (13.0-17.5) gm/dL Hct 28.4 L (39.0-53.0) % RDW 20.7 H (11.5-15.5) % Neutrophils # (Manual) 17.90 H (1.3-7.7) k/uL Monocytes # (Manual) 1.77 H (0-1.0) k/uL Eosinophils # (Manual) 0.88 H (0-0.7) k/uL PT 13.4 H (9.0-12.0) sec INR 1.3 H (<1.2) Sodium 133 L (137-145) mmol/L BUN 8 L (9-20) mg/dL Creatinine 0.61 L (0.66-1.25) mg/dL Glucose 115 H (74-99) mg/dL Calcium 7.8 L (8.4-10.2) mg/dL Ammonia (<30) umol/L Total Protein 4.8 L (6.3-8.2) g/dL Albumin 2.2 L (3.5-5.0) g/dL 09/18/18 Range/Units 08:09 WBC (3.8-10.6) k/uL RBC (4.30-5.90) m/uL Hgb (13.0-17.5) gm/dL Hct (39.0-53.0) % RDW (11.5-15.5) % Neutrophils # (Manual) (1.3-7.7) k/uL Monocytes # (Manual) (0-1.0) k/uL Eosinophils # (Manual) (0-0.7) k/uL PT (9.0-12.0) sec INR (<1.2) Sodium (137-145) mmol/L BUN (9-20) mg/dL Creatinine (0.66-1.25) mg/dL Glucose (74-99) mg/dL Calcium (8.4-10.2) mg/dL Ammonia 33 H (<30) umol/L Total Protein (6.3-8.2) g/dL Albumin (3.5-5.0) g/dL Laboratory Results WBC 22.1 k/uL (3.8-10.6) H 09/18/18 08:09 RBC 3.11 m/uL (4.30-5.90) L 09/18/18 08:09 Hgb 8.9 gm/dL (13.0-17.5) L 09/18/18 08:09 Hct 28.4 % (39.0-53.0) L 09/18/18 08:09 MCV 91.0 fL (80.0-100.0) 09/18/18 08:09 MCH 28.6 pg (25.0-35.0) 09/18/18 08:09 MCHC 31.5 g/dL (31.0-37.0) 09/18/18 08:09 RDW 20.7 % (11.5-15.5) H 09/18/18 08:09 Plt Count 312 k/uL (150-450) 09/18/18 08:09 Neutrophils % 73 % 09/16/18 05:34 Neutrophils % (Manual) 81 % 09/18/18 08:09 Band Neutrophils % 1 % 09/14/18 20:54 Lymphocytes % 13 % 09/16/18 05:34 Lymphocytes % (Manual) 7 % 09/18/18 08:09 Monocytes % 7 % 09/16/18 05:34 Monocytes % (Manual) 8 % 09/18/18 08:09 Eosinophils % 3 % 09/16/18 05:34 Eosinophils % (Manual) 4 % 09/18/18 08:09 Basophils % 1 % 09/16/18 05:34 Neutrophils # 7.5 k/uL (1.3-7.7) 09/16/18 05:34 Neutrophils # (Manual) 17.90 k/uL (1.3-7.7) H 09/18/18 08:09 Lymphocytes # 1.4 k/uL (1.0-4.8) 09/16/18 05:34 Lymphocytes # (Manual) 1.55 k/uL (1.0-4.8) 09/18/18 08:09 Monocytes # 0.7 k/uL (0-1.0) 09/16/18 05:34 Monocytes # (Manual) 1.77 k/uL (0-1.0) H 09/18/18 08:09 Eosinophils # 0.3 k/uL (0-0.7) 09/16/18 05:34 Eosinophils # (Manual) 0.88 k/uL (0-0.7) H 09/18/18 08:09 Basophils # 0.1 k/uL (0-0.2) 09/16/18 05:34 Nucleated RBCs 0 /100 WBC (0-0) 09/18/18 08:09 Manual Slide Review Performed 09/18/18 08:09 Large Platelets Present 09/14/18 12:08 Polychromasia Present 09/14/18 20:54 Hypochromasia Moderate 09/18/18 08:09 Poikilocytosis Slight 09/18/18 08:09 Poikilocytosis (manual Present 09/14/18 20:54 Anisocytosis Moderate 09/18/18 08:09 Macrocytosis Slight 09/18/18 08:09 Target Cells Present 09/14/18 20:54 Ovalocytes Present 09/13/18 21:38 Fragmented RBCs Present 09/13/18 21:38 PT 13.4 sec (9.0-12.0) H 09/18/18 08:09 INR 1.3 (<1.2) H 09/18/18 08:09 APTT 29.3 sec (22.0-30.0) 09/14/18 04:38 Sodium 133 mmol/L (137-145) L 09/18/18 08:09 Potassium 4.1 mmol/L (3.5-5.1) 09/18/18 08:09 Chloride 107 mmol/L (98-107) 09/18/18 08:09 Carbon Dioxide 23 mmol/L (22-30) 09/18/18 08:09 Anion Gap 3 mmol/L 09/18/18 08:09 BUN 8 mg/dL (9-20) L 09/18/18 08:09 Creatinine 0.61 mg/dL (0.66-1.25) L 09/18/18 08:09 Est GFR (CKD-EPI)AfAm >90 (>60 ml/min/1.73 sqM) 09/18/18 08:09 Est GFR (CKD-EPI)NonAf >90 (>60 ml/min/1.73 sqM) 09/18/18 08:09 Glucose 115 mg/dL (74-99) H 09/18/18 08:09 POC Glucose (mg/dL) 145 mg/dL (75-99) H 09/14/18 01:22 POC Glu [employer] ID [place] 09/14/18 01:22 Lactic Ac Sepsis Rflx Y 09/13/18 22:29 Plasma Lactic Acid [place] 3.0 mmol/L (0.7-2.0) H* 09/14/18 01:55 Calcium 7.8 mg/dL (8.4-10.2) L 09/18/18 08:09 Phosphorus 3.3 mg/dL (2.5-4.5) 09/17/18 05:01 Magnesium 1.7 mg/dL (1.6-2.3) 09/18/18 08:09 Total Bilirubin 1.1 mg/dL (0.2-1.3) 09/18/18 08:09 Conjugated Bilirubin 0.0 mg/dL (0.0-0.3) 09/13/18 21:38 Unconjugated Bilirubin 0.8 mg/dL (0.0-1.1) 09/13/18 21:38 Delta Bilirubin 0.3 mg/dL (0.0-0.2) H 09/13/18 21:38 AST 49 U/L (17-59) 09/18/18 08:09 ALT 36 U/L (21-72) 09/18/18 08:09 Alkaline Phosphatase 84 U/L (38-126) 09/18/18 08:09 Ammonia 33 umol/L (<30) H 09/18/18 08:09 Total Protein 4.8 g/dL (6.3-8.2) L 09/18/18 08:09 Albumin 2.2 g/dL (3.5-5.0) L 09/18/18 08:09 Lipase 175 U/L (23-300) 09/13/18 21:38 TSH 2.920 mIU/L (0.465-4.680) 09/18/18 08:09 Urine Color Yellow 09/18/18 10:50 Urine Appearance Clear (Clear) 09/18/18 10:50 Urine pH 5.5 (5.0-8.0) 09/18/18 10:50 Ur Specific [place] 1.016 (1.001-1.035) 09/18/18 10:50 Urine Protein Negative (Negative) 09/18/18 10:50 Urine Glucose (UA) Negative (Negative) 09/18/18 10:50 Urine Ketones Negative (Negative) 09/18/18 10:50 Urine Blood Negative (Negative) 09/18/18 10:50 Urine Nitrite Negative (Negative) 09/18/18 10:50 Urine Bilirubin Negative (Negative) 09/18/18 10:50 Urine Urobilinogen 4.0 mg/dL (<2.0) 09/18/18 10:50 Ur Leukocyte Esterase Negative (Negative) 09/18/18 10:50 Urine RBC 29 /hpf (0-5) H 09/14/18 04:30 Urine WBC 2 /hpf (0-5) 09/14/18 04:30 Ur Squamous Epith Cells <1 /hpf (0-4) 09/14/18 04:30 Hyaline Casts 26 /lpf (0-2) H 09/14/18 04:30 Urine Mucus Rare /hpf (None) H 09/14/18 04:30 Stool Occult Blood Positive (Negative) 09/14/18 04:00 Serum Alcohol 99 mg/dL 09/14/18 01:55 Blood Type A Negative 09/13/18 21:38 Blood Type Recheck No 09/13/18 21:38 Antibody Screen POSITIVE 09/13/18 21:38 Antibody Identification Anti-S 09/13/18 21:38 Direct Antiglob Test Negative 09/13/18 21:38 Crossmatch See Detail 09/13/18 21:38 Spec Expiration Date 09/16/2018233709/13/18 21:38 Assessment and Plan (1) Cirrhosis of liver with ascites Current Visit: Yes Status: Acute Code(s): K74.60 - UNSPECIFIED CIRRHOSIS OF LIVER; R18.8 - OTHER ASCITES SNOMED Code(s): 22711422 (2) Esophageal varices with bleeding Current Visit: No Status: Acute Code(s): I85.01 - ESOPHAGEAL VARICES WITH BLEEDING SNOMED Code(s): 45151410 (3) Leukocytosis Narrative/Plan: 43-year-old male presents to Hospital feeling poorly with recurrent bleeding of his esophageal varices. He has been evaluated by gastroenterology and has had intervention with further variceal clips being applied. On 09/05/2018 the patient did have a paracentesis and relates that the extensive ascites is less at this point in time but continues to have ascites and some increasing amounts of abdominal pain. With leukocytosis, ascites and evidence of the ongoing oozing from the prior paracentesis site does increase the risk for underlying infection. The patient has not been on any type of prophylactic antibiotic therapy for his ascites. He was placed on Rocephin but is still feeling poorly at this time. With the significant chronic ascites and chronic liver disease concerns to spend his bacterial peritonitis as well as early cholangitis. Antibiotic therapy is altered to Zosyn pending culture results. The patient's prior paracentesis revealed no evidence of any underlying infection. Leukocytosis we will monitor. Pain control as per primary. Of note the patient has required several units of packed red cell transfusion and remains a possibility of leukocytosis related to his recent transfusions. Current Visit: Yes Status: Acute Code(s): D72.829 - ELEVATED WHITE BLOOD CELL COUNT, UNSPECIFIED SNOMED Code(s): 027430423
--- NOTE | 2018-09-18 14:30 | P.CN ---
Psychiatric Consult - . Consult date: 09/18/18 Consult:: 09/18/18 14:26 Reason for Consult : Alcohol Dependence HPI: Mr. De is 43 yo male with h/o Alcoholism admitted here secondary to Liver failure. Found him in good spirits. Reports feeling anxious due to his worsening health issues. He denies feeling depressed or down. He denies any suicidal or homicidal ideation. Has no psychoses. Reports drinking all his life. Been to rehab at least 8 times and each time he relapsed. Past Medical Hx: Multiple medical issues past Psych Hx: Anxiety Allergies : see HPI Mental status Exam : MSE: Alert, awake, oriented in all spheres. Poor eye contact. Mood anxious with flat affect. Has no suicidal ideation. Has no psychoses. Insight and judgment fair A/P : Alcohol Use Disorder Offered Naltrexone, vivitrol and camprall options to cut down urges and cravings, but patient refused to take any medications. He wants to quit on his own due to very bad health issues. Resources were provided n [facility] for AOD services
[2018-09-18] MEDS: PIPERACILLIN-TAZOBACTAM 3.375 GM in SODIUM CHLORIDE 0.9% 100 ML IVPB SCH (15:58)
[2018-09-19] MEDS: MORPHINE SULFATE 2 MG/ML SYRINGE IVP PRN ×4 (00:18→13:12)
[2018-09-19] MEDS: PIPERACILLIN-TAZOBACTAM 3.375 GM in SODIUM CHLORIDE 0.9% 100 ML IVPB SCH ×3 (00:20→16:02)
[2018-09-19] MEDS: HYDROmorphone 2 MG TAB PO PRN ×3 (01:38→14:10)
[2018-09-19] MEDS: PANTOPRAZOLE 40 MG TABLET PO SCH ×2 (07:08→17:04)
[2018-09-19] MEDS: FUROSEMIDE 20 MG TAB PO SCH ×2 (07:08→16:02)
[2018-09-19] MEDS: SPIRONOLACTONE 25 MG TAB PO SCH (07:08)
[2018-09-19] MEDS: LACTULOSE 20 GM/30 ML CUP PO SCH ×3 (07:09→20:20)
[2018-09-19] MEDS: PROPRANOLOL 10 MG TAB PO SCH ×3 (07:14→20:20)
[2018-09-19] MEDS: NICOTINE 21MG/24HR PATCH TRANSDERM SCH (09:09)
[2018-09-19 10:53] LABS: ALT 31 U/L (21-72); AST 44 U/L (17-59); Albumin 2.3 g/dL (3.5-5.0); Alkaline Phosphatase 82 U/L (38-126); Anion Gap 3 mmol/L; Anisocytosis Moderate; Basophils # (A) 0.1 k/uL (0-0.2); Basophils % (A) 1 %; Blood Urea Nitrogen 6 mg/dL (9-20); Calcium 7.9 mg/dL (8.4-10.2); Carbon Dioxide 24 mmol/L (22-30); Chloride 105 mmol/L (98-107); Eosinophils # (A) 0.6 k/uL (0-0.7); Eosinophils % (A) 3 %; Glucose 108 mg/dL (74-99); HCT 25.8 % (39.0-53.0); HGB 8.3 gm/dL (13.0-17.5); Hypochromasia Moderate; Lymphocytes # (A) 1.3 k/uL (1.0-4.8); Lymphocytes % (A) 6 %; MCH 29.5 pg (25.0-35.0); MCHC 32.3 g/dL (31.0-37.0); MCV 91.3 fL (80.0-100.0); Macrocytosis Slight; Magnesium 1.7 mg/dL (1.6-2.3); Mean Platelet Volume 8.1; Monocytes # (A) 2.5 k/uL (0-1.0); Monocytes % (A) 12 %; Neutrophils # (A) 15.5 k/uL (1.3-7.7); Neutrophils % (A) 75 %; Platelet Count 265 k/uL (150-450); Poikilocytosis Slight; Potassium 4.1 mmol/L (3.5-5.1); RBC 2.83 m/uL (4.30-5.90); RDW 20.1 % (11.5-15.5); Sodium 132 mmol/L (137-145); Total Bilirubin 1.4 mg/dL (0.2-1.3); Total Protein 4.9 g/dL (6.3-8.2); WBC 20.8 k/uL (3.8-10.6)
[2018-09-19 10:56] LABS: INR 1.3 (<1.2); Prothrombin Time 13.3 sec (9.0-12.0)
[2018-09-19] MEDS ORDERED: Magnesium Replacement Protocol 1 EACH MISC MISCELLANE PRN (11:48)
[2018-09-19] MEDS: MAGNESIUM SULFATE-D5W PMX 1 GM in DEXTROSE/WATER 1 100ML.BAG IVPB SCH ×2 (12:18→14:11)
[2018-09-19] MEDS: SODIUM CHLORIDE 0.9% 1,000 ML IV SCH (12:19)
[2018-09-19] MEDS ORDERED: MORPHINE SULFATE 2 MG/ML SYRINGE IVP PRN (14:24)
--- NOTE | 2018-09-19 16:04 | P.PAINPG ---
Subjective Progress Note Date: 09/19/18 This 43 years old male, with a history of liver cirrhosis secondary ETOH abuse, with ascites, and Esophygeal varecis with the bleeding, status post clipping of the esophageal vareces, and tapping of abdominal ascites, patient was treated for his abdominal pain with oral Dilaudid, 2 mg every 6 hours, and also IV morphine 2 mg every 4 hours, when necessary, patient reported that the current pain medication is not helping to control his pain, he continued to have severe generalized abdominal pain and lower extremity pain, the pain is constant, with radiation to the lower extremity Objective - Vital Signs Vital signs: Vital Signs Temp 98.9 F 09/19/18 15:00 Pulse 86 09/19/18 15:00 Resp 16 09/19/18 15:00 BP 125/58 09/19/18 15:00 Pulse Ox 96 09/19/18 15:00 Intake & Output 09/18/18 09/19/18 09/19/18 18:59 06:59 18:59 Intake Total 1050 Output Total 30 30 30 Balance 1020 -30 -30 Intake: Oral 1050 Output: Drainage 30 30 30 Right Lower Abdomen 30 30 30 Other: # Voids 2 2 3 # Bowel Movements 1 - Exam Physical Examinations : -Constitutiona : Cooperative , not in acute distress . -HEENT : nech ; supple , no Lymphadenopathy , normal thyroid size . eyes : no ptosis , no icterus, no photophobia . ENT : normal of hearing , normal oropharynx , no Thrush . - Respiratory : Chest clear to auscultations Bilaterally , no wheezing , no Rhonchi . - Cardiovascula : regular rate and rhythem , S1 , S2 , no S3 , no S4. - Gastrointestina : abdomen distended, generalized abdominal discomfort - Genitourinary : Defferred . - neurologic : Cranial nerve II to XII intact , no focal neurological deffecit . -psychatric : alert , oriented X 3 , appropriate affect , intact judgment and insight . -Lymphatic : no Lymphadenopathy . - musculoskeltal : - Labs CBC & Chem 7: 09/19/18 10:23 09/19/18 10:23 Labs: Abnormal Lab Results - Last 24 Hours (Table) 09/19/18 09/19/18 09/19/18 Range/Units 10:23 10:23 10:23 WBC 20.8 H (3.8-10.6) k/uL RBC 2.83 L (4.30-5.90) m/uL Hgb 8.3 L (13.0-17.5) gm/dL Hct 25.8 L (39.0-53.0) % RDW 20.1 H (11.5-15.5) % Neutrophils # 15.5 H (1.3-7.7) k/uL Monocytes # 2.5 H (0-1.0) k/uL PT 13.3 H (9.0-12.0) sec INR 1.3 H (<1.2) Sodium 132 L (137-145) mmol/L BUN 6 L (9-20) mg/dL Creatinine 0.63 L (0.66-1.25) mg/dL Glucose 108 H (74-99) mg/dL Calcium 7.9 L (8.4-10.2) mg/dL Total Bilirubin 1.4 H (0.2-1.3) mg/dL Ammonia (<30) umol/L Total Protein 4.9 L (6.3-8.2) g/dL Albumin 2.3 L (3.5-5.0) g/dL 09/19/18 Range/Units 10:23 WBC (3.8-10.6) k/uL RBC (4.30-5.90) m/uL Hgb (13.0-17.5) gm/dL Hct (39.0-53.0) % RDW (11.5-15.5) % Neutrophils # (1.3-7.7) k/uL Monocytes # (0-1.0) k/uL PT (9.0-12.0) sec INR (<1.2) Sodium (137-145) mmol/L BUN (9-20) mg/dL Creatinine (0.66-1.25) mg/dL Glucose (74-99) mg/dL Calcium (8.4-10.2) mg/dL Total Bilirubin (0.2-1.3) mg/dL Ammonia 35 H (<30) umol/L Total Protein (6.3-8.2) g/dL Albumin (3.5-5.0) g/dL Microbiology - Last 24 Hours (Table) 09/18/18 10:50 Urine Culture - Final Urine,Voided 09/18/18 15:00 Gram Stain - Preliminary Ascites Fluid Body Fluid Culture - Preliminary Assessment and Plan Plan: Assessment and plan= abdominal pain secondary to ascites , current pain medication is not helping Recommend discontinue Dilaudid, discontinue morphine Start patient on oxycodone 5 mg every 4 hours when necessary Time with Patient: Less than 30 PQRS Measure Charge Sheet Measure #130: Documentation of Current Meds in Medical Chart: Patient's medications documented in chart PQRS Narrative: Smoking Status Current every day smoker Blood Pressure [Right Arm] 125/58 Blood Pressure 120/61 Pain Intensity [Generalized] 7 Pain Intensity [None] 0 Pain Intensity 6 Pain Scale Used Numeric (1 - 10) Scale Used Numeric (1 - 10) Home Medications: Ambulatory Orders Folic Acid 1 mg PO DAILY@1200 09/01/17 Multivitamins, Thera [Multivitamin (formulary)] 1 tab PO DAILY #30 tablet 09/03/17 Thiamine [Vitamin B-1] 100 mg PO DAILY #30 tablet 09/03/17 Propranolol [Inderal] 10 mg PO TID 08/30/18 Lactulose [Cephulac] 20 gm PO TID #900 ml 09/06/18 Pantoprazole [Protonix] 40 mg PO BID #60 tablet. 09/06/18 Albuterol Inhaler [Ventolin Hfa Inhaler] 2 puff INHALATION RT-Q6H PRN 09/13/18 Furosemide [Lasix] 20 mg PO DAILY 09/14/18 Controlled Substance Measures - Controlled Substance Measures Is patient prescribed a controlled substance at discharge?: No
--- NOTE | 2018-09-19 16:34 | P.PN ---
Subjective Progress Note Date: 09/19/18 This is a 43-year-old gentleman with history of esophageal varices, portal hypertension ,ongoing alcohol abuse, liver cirrhosis, GI bleeds, noncompliant with medication regimen and multiple other medical issues admitted with complaints of vomiting bight red blood. Patient recently discharged on 09/06 status post EGD reporting esophageal varices, status post banding. (Prior to that patient had banding done on 07/05/18.)Colonoscopy at that time had been aborted secondary to poor prep, reported evidence of internal hemorrhoids. Paracentesis last admission of 5 L, with negative cytology. May 2018 h epatitis screen nonreactive. Telemetry sinus tachycardia. EKG reports sinus tachycardia.VSS. Hemoglobin 6.6, MCV 88, platelets 290 INR 1.3, lactic acid 2.2, abdominal x-ray reports nonacute abdomen, questionable groundglass opacity's of the left upper and lower lobes. Serum Alcohol level 99, ammonia level 57.This morning ICU reports melena stools, mostly clots. No further hemoptysis. Admitted to ICU. Patient has received a total of 3 units packed RBCs, current hemoglobin 7.4. Potassium 5.9, up to 6, received insulin, bicarbonate, D50 with recheck pending. T bili 1.8 AST 57, ALT 36, AP 83. Afebrile, WBC 15.3 on admission, increased to 22.1. Sodium 136. CO2 18, pO2 of 14, creatinine 0.72. Denies chest pain, palpitations or increasing shortness of breath. Evaluated by GI, scheduled for EGD. 09/15/18 patient underwent EGD yesterday reporting distal esophageal varices with variceal band ligation-4 bands. Maintained on Rocephin. Afebrile. Patient also had paracentesis completed yesterday with 4 L of dark yellow turbid peritoneal drainage. Tolerated procedures well. No further bleeding since yesterday, maintained on IV PPI as well as Sandostatin. Receiving 1 unit of pac ked RBCs for hemoglobin of 6.8. Continues on CIWA protocol, no DTs at this time. Telemetry sinus rhythm. Ammonia level ordered. T bili 1.7. Abdominal ultrasound reporting small ascites. 09/16/2018 no further bleeding, hemoglobin 7.8. Sandostatin weaned off. Ammonia decreased to 82 today from 200 yesterday, on lactulose. Reports diffuse abdominal discomfort. Afebrile. Continues on Lasix, Aldactone. Telemetry sinus rhythm. Site of prior paracentesis tap draining -serous drainage. 09/17/2018: Patient is resting comfortably in his bed. He remains in intensive care unit. He denies any chest pains, pressures, or shortness breath. His abdominal pain is lessened. He has an order for morphine 2 mg IV push every 2 hours. He remains on furosemide and spironolactone along with Rocephin for antibiotic coverage. Hemoglobin is up to 8.3 today. Ammonia level is down to 46 today. He continues on lactulose. 09/18/2018: Patient been transferred to [facility] floor. He continues complaining of abdominal pain. He denies any chest pains, pressures, or shortness of breath. His pain medication morphine is been decreased to 1 mg IV push every 4 hours as needed and Dilaudid 2 mg every 6 hours as needed was added. Hemoglobin is improved 8.9. He also has developed a leukocytosis that is worsened. It's gone from 10.2-15.9 and today it is 22.1 with 17.9 absolute neutrophils. INR is 1.3. Ammonia level is improved at 33 today. He is developed a mild hyponatremia at 133. He remains on antibiotic coverage of Rocephin 1 g daily. He continues on Lasix and swollen lactone for ascites control. He continues to have a drain with minimal discharge for ascites. He remains on propanolol for hypertension and esophageal varices controlled. He remains on lactulose to help control his ammonia level. 09/19/2018 receiving oral Dilaudid and IV morphine with no relief in his abdomi nal pain. Pain management service consulted with recommendations noted and appreciated; Dilaudid and morphine have been discontinued and now on oxycodone. Hemoglobin 8.3. T-max 101.3, WBC down to 20.8, ascites fluid cx reporting many gram-positive cocci. Maintained on IV antibiotics as per infectious disease. INR 1.3, total bili 1.4, ammonia 35, albumin 2.3 sodium 132. Evaluated by psychiatry, recommended naltrexone, Vivitrol,cmapral-patient declined. Substance abuse Rehab resources offered-patient declined. Objective - Vital Signs Vital signs: Vital Signs Temp 98.9 F 09/19/18 15:00 Pulse 86 09/19/18 15:00 Resp 16 09/19/18 15:00 BP 125/58 09/19/18 15:00 Pulse Ox 96 09/19/18 15:00 Intake & Output 09/18/18 09/19/18 09/19/18 18:59 06:59 18:59 Intake Total 1050 Output Total 30 30 30 Balance 1020 -30 -30 Intake: Oral 1050 Output: Drainage 30 30 30 Right Lower Abdomen 30 30 30 Other: # Voids 2 2 3 # Bowel Movements 1 - Exam General: The patient is awake and alert, in minimal finding distress, and does not appear acutely ill. He no longer appears jaundiced Neck: The neck is supple, there is no thyromegaly, lymphadenopathy, tenderness or JVD. Cardiovascular: S1S2 is normal, There is a regular rate and rhythm. No murmur, rub or gallop is appreciated. Respiratory: Lungs are coarse to auscultation bilaterally, respirations are non-labored, breath sounds are equal. Gastrointestinal: Soft, distended, mildly tender abdomen to multiple locations including the right upper and left upper and left lower quadrants. Bowel sounds are unremarkable, hepatomegaly,right lower quadrant drain for ascites. Musculoskeletal: Normal ROM, no tenderness, There is no pedal edema. There is no calf tenderness, there is +1 pedal edema swelling. No cords were appreciated. Neurological: CN II-XII intact, there are no obvious motor or sensory deficits. Coordination appears grossly intact. Speech is normal. He is awake alert and oriented 3 today. Skin: Skin is warm and dry and no rashes or lesions are noted. - Labs CBC & Chem 7: 09/19/18 10:23 09/19/18 10:23 Labs: Abnormal Lab Results - Last 24 Hours (Table) 09/19/18 09/19/18 09/19/18 Range/Units 10:23 10:23 10:23 WBC 20.8 H (3.8-10.6) k/uL RBC 2.83 L (4.30-5.90) m/uL Hgb 8.3 L (13.0-17.5) gm/dL Hct 25.8 L (39.0-53.0) % RDW 20.1 H (11.5-15.5) % Neutrophils # 15.5 H (1.3-7.7) k/uL Monocytes # 2.5 H (0-1.0) k/uL PT 13.3 H (9.0-12.0) sec INR 1.3 H (<1.2) Sodium 132 L (137-145) mmol/L BUN 6 L (9-20) mg/dL Creatinine 0.63 L (0.66-1.25) mg/dL Glucose 108 H (74-99) mg/dL Calcium 7.9 L (8.4-10.2) mg/dL Total Bilirubin 1.4 H (0.2-1.3) mg/dL Ammonia (<30) umol/L Total Protein 4.9 L (6.3-8.2) g/dL Albumin 2.3 L (3.5-5.0) g/dL 09/19/18 Range/Units 10:23 WBC (3.8-10.6) k/uL RBC (4.30-5.90) m/uL Hgb (13.0-17.5) gm/dL Hct (39.0-53.0) % RDW (11.5-15.5) % Neutrophils # (1.3-7.7) k/uL Monocytes # (0-1.0) k/uL PT (9.0-12.0) sec INR (<1.2) Sodium (137-145) mmol/L BUN (9-20) mg/dL Creatinine (0.66-1.25) mg/dL Glucose (74-99) mg/dL Calcium (8.4-10.2) mg/dL Total Bilirubin (0.2-1.3) mg/dL Ammonia 35 H (<30) umol/L Total Protein (6.3-8.2) g/dL Albumin (3.5-5.0) g/dL Microbiology - Last 24 Hours (Table) 09/18/18 10:50 Urine Culture - Final Urine,Voided 09/18/18 15:00 Gram Stain - Preliminary Ascites Fluid Body Fluid Culture - Preliminary Assessment and Plan Assessment: -Acute on chronic blood loss anemia secondary to Acute GI bleed in a patient with history of esophageal varices, liver cirrhosis, portal hypertension, ongoing alcohol abuse, status post recent banding on 07/05 and 4/17. Reported hemoptysis at home, currently having melena stools. -Esophageal varices, recent banding 07/05, 08/31 -Ongoing EtOH abuse, vodka bottle found in patient's pocket on admission. -Portal hypertension -Alcohol liver Cirrhosis with ascites. paracentesis 09/05/2018; cytology and cultures negative, most recent paracentesis 09/18/2018, cultures pending -Coagulopathy -Hyperammoniemia -Ongoing nicotine dependence -Chronic pancreatitis -Nephrolithiasis -Hyperkalemia -Leukocytosis, possible spontaneous bacterial peritonitis, recent ascites fluid cultures reporting gram-positive cocci, possibly related to recent transfusions of packed RBCs -History of left sided traumatic rib fractures -Metabolic acidosis - Depression Plan: Continue on current medication regime, PPI, monitoring and symptomatic treatment. Maintain fluid restrictions, Aldactone, Lasix, lactulose, Inderal, Zosyn. Close monitoring of ammonia level, hemoglobin, electrolytes, with repeat labs ordered for a.m. CIWA protocol.Prognosis guarded given multiple complex medical issues. The impression and plan of care has been dictated as directed. : I performed a history and examination of this patient, discussed the same with the dictator. I agree with the dictator's note ,documented as a scribe. Any additional findings or plans will be noted. Time taken: 35 minutes
--- NOTE | 2018-09-19 20:37 | P.PN ---
Subjective Progress Note Date: 09/19/18 Principal diagnosis: Decompensated alcoholic cirrhosis, variceal bleed, anemia acute blood loss Patient seen lying in bed. He is tolerating his diet. Still complaining of abdominal pain. No signs or symptoms of GI bleeding. Objective - Vital Signs Vital signs: Vital Signs Temp 98.9 F 09/19/18 15:00 Pulse 86 09/19/18 15:00 Resp 16 09/19/18 15:00 BP 125/58 09/19/18 15:00 Pulse Ox 96 09/19/18 15:00 Intake & Output 09/19/18 09/19/18 09/20/18 06:59 18:59 06:59 Output Total 30 30 Balance -30 -30 Output: Drainage 30 30 Right Lower Abdomen 30 30 Other: # Voids 2 3 # Bowel Movements 1 - Exam On physical examination, patient appears comfortable in no apparent distress. HEAD: Normocephalic, atraumatic. EYES: No scleral icterus. No conjunctival injection. MOUTH: No lesions, tongue midline. NECK: Trachea midline, no gross abnormalities. CHEST: Clear to auscultation with no wheezing or rhonchi appreciated. HEART: Regular rate and rhythm. ABDOMEN: Soft, distended with positive fluid wave, patient has ostomy bag in place to collect draining ascitic fluid. Bowel sounds are positive. No organomegaly. No guarding or rigidity. EXTREMITIES: No pedal edema. SKIN: No rashes, no jaundice. NEUROLOGIC: Alert and oriented x3. No asterixis noted. No focal deficits. - Labs CBC & Chem 7: 09/19/18 10:23 09/19/18 10:23 Labs: Abnormal Lab Results - Last 24 Hours (Table) 09/19/18 09/19/18 09/19/18 Range/Units 10:23 10:23 10:23 WBC 20.8 H (3.8-10.6) k/uL RBC 2.83 L (4.30-5.90) m/uL Hgb 8.3 L (13.0-17.5) gm/dL Hct 25.8 L (39.0-53.0) % RDW 20.1 H (11.5-15.5) % Neutrophils # 15.5 H (1.3-7.7) k/uL Monocytes # 2.5 H (0-1.0) k/uL PT 13.3 H (9.0-12.0) sec INR 1.3 H (<1.2) Sodium 132 L (137-145) mmol/L BUN 6 L (9-20) mg/dL Creatinine 0.63 L (0.66-1.25) mg/dL Glucose 108 H (74-99) mg/dL Calcium 7.9 L (8.4-10.2) mg/dL Total Bilirubin 1.4 H (0.2-1.3) mg/dL Ammonia (<30) umol/L Total Protein 4.9 L (6.3-8.2) g/dL Albumin 2.3 L (3.5-5.0) g/dL 09/19/18 Range/Units 10:23 WBC (3.8-10.6) k/uL RBC (4.30-5.90) m/uL Hgb (13.0-17.5) gm/dL Hct (39.0-53.0) % RDW (11.5-15.5) % Neutrophils # (1.3-7.7) k/uL Monocytes # (0-1.0) k/uL PT (9.0-12.0) sec INR (<1.2) Sodium (137-145) mmol/L BUN (9-20) mg/dL Creatinine (0.66-1.25) mg/dL Glucose (74-99) mg/dL Calcium (8.4-10.2) mg/dL Total Bilirubin (0.2-1.3) mg/dL Ammonia 35 H (<30) umol/L Total Protein (6.3-8.2) g/dL Albumin (3.5-5.0) g/dL Microbiology - Last 24 Hours (Table) 09/18/18 10:50 Urine Culture - Final Urine,Voided 09/18/18 15:00 Gram Stain - Preliminary Ascites Fluid Body Fluid Culture - Preliminary Assessment and Plan (1) Acute blood loss anemia Narrative/Plan: Patient presenting to the hospital with multiple episodes of hematemesis in the setting of known esophageal varices. He was taken for EGD with no findings of active bleeding, however findings of high risk stigmata for bleeding and red will sign. For bands were placed on varices at that time. No further signs or symptoms of GI bleeding. The patient's hemoglobin has remained stable. Current Visit: Yes Status: Acute Code(s): D62 - ACUTE POSTHEMORRHAGIC ANEMIA SNOMED Code(s): 447101139 (2) Cirrhosis of liver with ascites Current Visit: Yes Status: Acute Code(s): K74.60 - UNSPECIFIED CIRRHOSIS OF LIVER; R18.8 - OTHER ASCITES SNOMED Code(s): 94202623 (3) GI bleed Current Visit: Yes Status: Acute Code(s): K92.2 - GASTROINTESTINAL HEMORRHAGE, UNSPECIFIED SNOMED Code(s): 20223655 (4) Abdominal pain Current Visit: No Status: Acute Code(s): R10.9 - UNSPECIFIED ABDOMINAL PAIN SNOMED Code(s): 83242398 Plan: Supportive care Okay for low-sodium diet Continue Lasix twice daily Continue Aldactone 100 mg daily Continue to monitor for signs or symptoms of GI bleeding Continue to monitor hemoglobin and transfuse as needed Continue lactulose therapy Active for allowing us to participate in the care of the patient we will continue to follow
--- NOTE | 2018-09-19 23:25 | P.PN ---
Subjective Progress Note Date: 09/19/18 43-year-old male has significant recent past medical history regarding his declining status regarding his chronic alcoholism and chronic liver disease. He was recently hospitalized. At that point in time he just intestinal bleeding and was noted by gastroenterology and bleeding esophageal varices were clipped. Shortly after his discharge and patient again had some bleeding and again was evaluated and had further esophageal variceal clips applied. The patient is not feeling very well. He has ascites that is uncomfortable, worsening lower extremity edema and feels poorly overall. His temperature has increased 99.4 he feels chilled but without rigor. The laboratories reveal evidence of elevated total bilirubin which seems to be improving at this time. With leukocytosis and concerns to worsening infection the consult was requested. 09/19/2018 other than complaints of pain the patient is doing relatively well. His ascites is stable. No evidence of any further hematemesis or hematochezia. With his ascites and alcoholic liver disease and esophageal varices with bleeding his antibiotic therapy was altered to Zosyn and he is now afebrile leukocytosis is improving and he does feel better except for as noted in pain. Pain management consult has occurred and directions are being followed. If the patient continues to improve he may de-escalate antibiotic therapy to Augmentin to complete a course of therapy at home. Should follow-up with gastroenterology after discharge to determine if he is a candidate for SBP prophylaxis. Objective - Vital Signs Vital signs: Vital Signs Temp 98.4 F 09/19/18 20:53 Pulse 85 09/19/18 20:53 Resp 18 09/19/18 20:53 BP 120/57 09/19/18 20:53 Pulse Ox 96 09/19/18 20:53 Intake & Output 09/19/18 09/19/18 09/20/18 06:59 18:59 06:59 Output Total 30 30 Balance -30 -30 Output: Drainage 30 30 Right Lower Abdomen 30 30 Other: # Voids 2 3 # Bowel Movements 1 - Labs CBC & Chem 7: 09/19/18 10:23 09/19/18 10:23 Labs: Abnormal Lab Results - Last 24 Hours (Table) 09/19/18 09/19/18 09/19/18 Range/Units 10:23 10:23 10:23 WBC 20.8 H (3.8-10.6) k/uL RBC 2.83 L (4.30-5.90) m/uL Hgb 8.3 L (13.0-17.5) gm/dL Hct 25.8 L (39.0-53.0) % RDW 20.1 H (11.5-15.5) % Neutrophils # 15.5 H (1.3-7.7) k/uL Monocytes # 2.5 H (0-1.0) k/uL PT 13.3 H (9.0-12.0) sec INR 1.3 H (<1.2) Sodium 132 L (137-145) mmol/L BUN 6 L (9-20) mg/dL Creatinine 0.63 L (0.66-1.25) mg/dL Glucose 108 H (74-99) mg/dL Calcium 7.9 L (8.4-10.2) mg/dL Total Bilirubin 1.4 H (0.2-1.3) mg/dL Ammonia (<30) umol/L Total Protein 4.9 L (6.3-8.2) g/dL Albumin 2.3 L (3.5-5.0) g/dL 09/19/18 Range/Units 10:23 WBC (3.8-10.6) k/uL RBC (4.30-5.90) m/uL Hgb (13.0-17.5) gm/dL Hct (39.0-53.0) % RDW (11.5-15.5) % Neutrophils # (1.3-7.7) k/uL Monocytes # (0-1.0) k/uL PT (9.0-12.0) sec INR (<1.2) Sodium (137-145) mmol/L BUN (9-20) mg/dL Creatinine (0.66-1.25) mg/dL Glucose (74-99) mg/dL Calcium (8.4-10.2) mg/dL Total Bilirubin (0.2-1.3) mg/dL Ammonia 35 H (<30) umol/L Total Protein (6.3-8.2) g/dL Albumin (3.5-5.0) g/dL Microbiology - Last 24 Hours (Table) 09/19/18 18:06 Sputum Culture - Preliminary Sputum 09/18/18 10:50 Urine Culture - Final Urine,Voided 09/18/18 15:00 Gram Stain - Preliminary Ascites Fluid Body Fluid Culture - Preliminary Assessment and Plan (1) Cirrhosis of liver with ascites Current Visit: Yes Status: Acute Code(s): K74.60 - UNSPECIFIED CIRRHOSIS OF LIVER; R18.8 - OTHER ASCITES SNOMED Code(s): 89061809 (2) Esophageal varices with bleeding Current Visit: No Status: Acute Code(s): I85.01 - ESOPHAGEAL VARICES WITH BLEEDING SNOMED Code(s): 93925355 (3) Leukocytosis Current Visit: Yes Status: Acute Code(s): D72.829 - ELEVATED WHITE BLOOD CELL COUNT, UNSPECIFIED SNOMED Code(s): 469014255
[2018-09-20] MEDS: PIPERACILLIN-TAZOBACTAM 3.375 GM in SODIUM CHLORIDE 0.9% 100 ML IVPB SCH ×3 (00:07→16:12)
[2018-09-20] MEDS: FUROSEMIDE 20 MG TAB PO SCH ×2 (07:59→16:12)
[2018-09-20] MEDS: PANTOPRAZOLE 40 MG TABLET PO SCH ×2 (07:59→16:12)
[2018-09-20] MEDS: NICOTINE 21MG/24HR PATCH TRANSDERM SCH (07:59)
[2018-09-20] MEDS: SPIRONOLACTONE 25 MG TAB PO SCH (07:59)
[2018-09-20] MEDS: LACTULOSE 20 GM/30 ML CUP PO SCH ×3 (08:00→20:30)
[2018-09-20] MEDS: PROPRANOLOL 10 MG TAB PO SCH ×3 (08:00→20:31)
--- NOTE | 2018-09-20 08:54 | P.PN ---
Progress Note - Text Progress Note Date: 09/20/18 Recontacted by the team taking care of the patient. Yesterday was started on oxycodone 5 mg every 4 hours the patient reports he does not have very good relief. On today's assessment tingling increase the dose of 10 mg every 6 hours when necessary. I'll maintain this is an acute issue and should not be maintained on a long-term basis unless he seen by an outpatient physician a regular basis. Please follow up with us in the next 24 hours if the patient is not doing any better. I would continue to avoid IV pain medications.
[2018-09-20 09:15] LABS: INR 1.3 (<1.2); Prothrombin Time 13.2 sec (9.0-12.0)
[2018-09-20 09:16] LABS: ALT 33 U/L (21-72); AST 41 U/L (17-59); Albumin 2.3 g/dL (3.5-5.0); Alkaline Phosphatase 85 U/L (38-126); Anion Gap 7 mmol/L; Blood Urea Nitrogen 7 mg/dL (9-20); Calcium 7.5 mg/dL (8.4-10.2); Carbon Dioxide 22 mmol/L (22-30); Chloride 104 mmol/L (98-107); Glucose 108 mg/dL (74-99); Magnesium 1.6 mg/dL (1.6-2.3); Potassium 3.6 mmol/L (3.5-5.1); Sodium 133 mmol/L (137-145); Total Bilirubin 1.6 mg/dL (0.2-1.3)
[2018-09-20 09:21] LABS: Anisocytosis Slight; HCT 25.2 % (39.0-53.0); Hypochromasia Moderate; MCH 28.5 pg (25.0-35.0); MCHC 31.6 g/dL (31.0-37.0); Mean Platelet Volume 8.3; Platelet Count 239 k/uL (150-450); Poikilocytosis Slight; RDW 19.7 % (11.5-15.5); WBC 16.2 k/uL (3.8-10.6)
[2018-09-20] MEDS ORDERED: IPRATROPIUM-ALBUTEROL 3 ML NEB INHALATION PRN (09:36)
--- NOTE | 2018-09-20 10:09 | P.PN ---
Subjective Progress Note Date: 09/20/18 Principal diagnosis: GI variceal bleed No active GI bleeding. Status post EGD with variceal banding 4. Hemoglobin stable 8.0. White count 16.2 improved. Platelet 239. INR 1.3. Total bilirubin 1.6. AST ALT 80 within normal limits. Ammonia yesterday 35. Mild abdominal scrotal discomfort. No fevers. Receiving lactulose, Protonix, Inderal, Aldactone, and Lasix. Objective - Vital Signs Vital signs: Vital Signs Temp 99.3 F 09/20/18 04:39 Pulse 84 09/20/18 04:39 Resp 18 09/20/18 04:39 BP 122/62 09/20/18 04:39 Pulse Ox 96 09/20/18 04:39 Intake & Output 09/19/18 09/20/18 09/20/18 18:59 06:59 18:59 Output Total 30 Balance -30 Output: Drainage 30 Right Lower Abdomen 30 Other: # Voids 3 2 1 # Bowel Movements 1 - Exam General appearance: The patient is alert, oriented, in no acute distress. HET: Head is normocephalic and atraumatic. Pupils are equal and reactive. Oropharynx is clear without lesions. Neck: Supple without lymphadenopathy. Trachea midline. Heart: S1 S2. Regular rate and rhythm. Lungs: No crackles or wheezes are heard. Abdomen: Soft, mildly distended with mild ascites mild tenderness across mid abdomen with bowel sounds. Ostomy to Right abdomen minimal serous drainage. No peritoneal signs. No palpable organomegaly or masses. Extremities: +2 bilateral lower extremity edema. Scrotal edema present. Neurological: No focal deficits. Strength and sensation are grossly intact. - Labs CBC & Chem 7: 09/20/18 08:29 09/20/18 08:29 Labs: Abnormal Lab Results - Last 24 Hours (Table) 09/19/18 09/19/18 09/19/18 Range/Units 10:23 10:23 10:23 WBC 20.8 H (3.8-10.6) k/uL RBC 2.83 L (4.30-5.90) m/uL Hgb 8.3 L (13.0-17.5) gm/dL Hct 25.8 L (39.0-53.0) % RDW 20.1 H (11.5-15.5) % Neutrophils # 15.5 H (1.3-7.7) k/uL Monocytes # 2.5 H (0-1.0) k/uL PT 13.3 H (9.0-12.0) sec INR 1.3 H (<1.2) Sodium 132 L (137-145) mmol/L BUN 6 L (9-20) mg/dL Creatinine 0.63 L (0.66-1.25) mg/dL Glucose 108 H (74-99) mg/dL Calcium 7.9 L (8.4-10.2) mg/dL Total Bilirubin 1.4 H (0.2-1.3) mg/dL Ammonia (<30) umol/L Total Protein 4.9 L (6.3-8.2) g/dL Albumin 2.3 L (3.5-5.0) g/dL 09/19/18 09/20/18 09/20/18 Range/Units 10:23 08:29 08:29 WBC 16.2 H (3.8-10.6) k/uL RBC 2.80 L (4.30-5.90) m/uL Hgb 8.0 L (13.0-17.5) gm/dL Hct 25.2 L (39.0-53.0) % RDW 19.7 H (11.5-15.5) % Neutrophils # (1.3-7.7) k/uL Monocytes # (0-1.0) k/uL PT 13.2 H (9.0-12.0) sec INR 1.3 H (<1.2) Sodium (137-145) mmol/L BUN (9-20) mg/dL Creatinine (0.66-1.25) mg/dL Glucose (74-99) mg/dL Calcium (8.4-10.2) mg/dL Total Bilirubin (0.2-1.3) mg/dL Ammonia 35 H (<30) umol/L Total Protein (6.3-8.2) g/dL Albumin (3.5-5.0) g/dL 09/20/18 Range/Units 08:29 WBC (3.8-10.6) k/uL RBC (4.30-5.90) m/uL Hgb (13.0-17.5) gm/dL Hct (39.0-53.0) % RDW (11.5-15.5) % Neutrophils # (1.3-7.7) k/uL Monocytes # (0-1.0) k/uL PT (9.0-12.0) sec INR (<1.2) Sodium 133 L (137-145) mmol/L BUN 7 L (9-20) mg/dL Creatinine (0.66-1.25) mg/dL Glucose 108 H (74-99) mg/dL Calcium 7.5 L (8.4-10.2) mg/dL Total Bilirubin 1.6 H (0.2-1.3) mg/dL Ammonia (<30) umol/L Total Protein 5.0 L (6.3-8.2) g/dL Albumin 2.3 L (3.5-5.0) g/dL Microbiology - Last 24 Hours (Table) 09/19/18 18:06 Gram Stain - Preliminary Sputum Sputum Culture - Preliminary 09/18/18 22:08 Blood Culture - Preliminary Blood No Growth after 24 hours 09/18/18 22:04 Blood Culture - Preliminary Blood No Growth after 24 hours 09/18/18 10:50 Urine Culture - Final Urine,Voided Assessment and Plan (1) Hematemesis Narrative/Plan: 43-year-old male admitted with acute blood loss anemia secondary to acute hematemesis GI bleed with underlying history of alcohol liver cirrhosis portal hypertension and esophageal varices. Actively drinking alcohol with history of medical noncompliance. Recent EGD colonoscopy for evaluation of GI bleed with findings of esophageal varices status post banding colonoscopy incomplete secondary to poor prep with evidence of internal hemorrhoids. Status post EGD 09/14/18 variceal banding x 4. Current Visit: No Status: Acute Code(s): K92.0 - HEMATEMESIS SNOMED Code(s): 1825121 (2) GI bleed Current Visit: Yes Status: Acute Code(s): K92.2 - GASTROINTESTINAL HEMORRHAGE, UNSPECIFIED SNOMED Code(s): 32376761 (3) Esophageal varices Current Visit: No Status: Acute Code(s): I85.00 - ESOPHAGEAL VARICES WITHOUT BLEEDING SNOMED Code(s): 45430137 (4) Acute blood loss anemia Current Visit: Yes Status: Acute Code(s): D62 - ACUTE POSTHEMORRHAGIC ANEMIA SNOMED Code(s): 714817971 (5) Chronic anemia Current Visit: No Status: Acute Code(s): D64.9 - ANEMIA, UNSPECIFIED SNOMED Code(s): 979622562 (6) Hyperkalemia Current Visit: Yes Status: Acute Code(s): E87.5 - HYPERKALEMIA SNOMED Code(s): 67971363 (7) Coagulopathy Current Visit: No Status: Acute Code(s): D68.9 - COAGULATION DEFECT, UNSPECIFIED SNOMED Code(s): 76771320 (8) History of alcohol abuse Current Visit: No Status: Acute Code(s): Z87.898 - PERSONAL HISTORY OF OTHER SPECIFIED CONDITIONS SNOMED Code(s): 139139654 (9) Hyperammonemia Current Visit: Yes Status: Acute Code(s): E72.20 - DISORDER OF UREA CYCLE METABOLISM, UNSPECIFIED SNOMED Code(s): 7361714 (10) Cirrhosis of liver with ascites Current Visit: Yes Status: Acute Code(s): K74.60 - UNSPECIFIED CIRRHOSIS OF LIVER; R18.8 - OTHER ASCITES SNOMED Code(s): 14520307 Plan: 1. Continue present medical therapy. Discharge per medicine. Return office in 3-4 weeks for reevaluation. Low-sodium diet. Continue with Lasix 40 mg twice daily and Aldactone 100 mg daily. Lactulose 20 g 3 times a day titrate for at least 3-4 bowel movements daily. Inderal 10 mg 3 times daily on discharge. Alcohol abstinence reinforced. Assessment and plan a care discussed with Dr. Harrington
[2018-09-20 11:22] LABS: Eosinophils # (M) 0.16 k/uL (0-0.7); Lymphocytes # (M) 1.62 k/uL (1.0-4.8); Monocytes # (M) 1.62 k/uL (0-1.0); Neutrophils % (M) 79 %; Nucleated Red Blood Cells 0 /100 WBC (0-0); Total Cells Counted 100
--- NOTE | 2018-09-20 12:07 | P.PN ---
Subjective Progress Note Date: 09/20/18 This is a 43-year-old gentleman with history of esophageal varices, portal hypertension ,ongoing alcohol abuse, liver cirrhosis, GI bleeds, noncompliant with medication regimen and multiple other medical issues admitted with complaints of vomiting bight red blood. Patient recently discharged on 09/06 status post EGD reporting esophageal varices, status post banding. (Prior to that patient had banding done on 07/05/18.)Colonoscopy at that time had been aborted secondary to poor prep, reported evidence of internal hemorrhoids. Paracentesis last admission of 5 L, with negative cytology. May 2018 h epatitis screen nonreactive. Telemetry sinus tachycardia. EKG reports sinus tachycardia.VSS. Hemoglobin 6.6, MCV 88, platelets 290 INR 1.3, lactic acid 2.2, abdominal x-ray reports nonacute abdomen, questionable groundglass opacity's of the left upper and lower lobes. Serum Alcohol level 99, ammonia level 57.This morning ICU reports melena stools, mostly clots. No further hemoptysis. Admitted to ICU. Patient has received a total of 3 units packed RBCs, current hemoglobin 7.4. Potassium 5.9, up to 6, received insulin, bicarbonate, D50 with recheck pending. T bili 1.8 AST 57, ALT 36, AP 83. Afebrile, WBC 15.3 on admission, increased to 22.1. Sodium 136. CO2 18, pO2 of 14, creatinine 0.72. Denies chest pain, palpitations or increasing shortness of breath. Evaluated by GI, scheduled for EGD. 09/15/18 patient underwent EGD yesterday reporting distal esophageal varices with variceal band ligation-4 bands. Maintained on Rocephin. Afebrile. Patient also had paracentesis completed yesterday with 4 L of dark yellow turbid peritoneal drainage. Tolerated procedures well. No further bleeding since yesterday, maintained on IV PPI as well as Sandostatin. Receiving 1 unit of pac ked RBCs for hemoglobin of 6.8. Continues on CIWA protocol, no DTs at this time. Telemetry sinus rhythm. Ammonia level ordered. T bili 1.7. Abdominal ultrasound reporting small ascites. 09/16/2018 no further bleeding, hemoglobin 7.8. Sandostatin weaned off. Ammonia decreased to 82 today from 200 yesterday, on lactulose. Reports diffuse abdominal discomfort. Afebrile. Continues on Lasix, Aldactone. Telemetry sinus rhythm. Site of prior paracentesis tap draining -serous drainage. 09/17/2018: Patient is resting comfortably in his bed. He remains in intensive care unit. He denies any chest pains, pressures, or shortness breath. His abdominal pain is lessened. He has an order for morphine 2 mg IV push every 2 hours. He remains on furosemide and spironolactone along with Rocephin for antibiotic coverage. Hemoglobin is up to 8.3 today. Ammonia level is down to 46 today. He continues on lactulose. 09/18/2018: Patient been transferred to [facility] floor. He continues complaining of abdominal pain. He denies any chest pains, pressures, or shortness of breath. His pain medication morphine is been decreased to 1 mg IV push every 4 hours as needed and Dilaudid 2 mg every 6 hours as needed was added. Hemoglobin is improved 8.9. He also has developed a leukocytosis that is worsened. It's gone from 10.2-15.9 and today it is 22.1 with 17.9 absolute neutrophils. INR is 1.3. Ammonia level is improved at 33 today. He is developed a mild hyponatremia at 133. He remains on antibiotic coverage of Rocephin 1 g daily. He continues on Lasix and swollen lactone for ascites control. He continues to have a drain with minimal discharge for ascites. He remains on propanolol for hypertension and esophageal varices controlled. He remains on lactulose to help control his ammonia level. 09/19/2018 receiving oral Dilaudid and IV morphine with no relief in his abdomi nal pain. Pain management service consulted with recommendations noted and appreciated; Dilaudid and morphine have been discontinued and now on oxycodone. Hemoglobin 8.3. T-max 101.3, WBC down to 20.8, ascites fluid cx reporting many gram-positive cocci. Maintained on IV antibiotics as per infectious disease. INR 1.3, total bili 1.4, ammonia 35, albumin 2.3 sodium 132. Evaluated by psychiatry, recommended naltrexone, Vivitrol,cmapral-patient declined. Substance abuse Rehab resources offered-patient declined. 09/20/2018 continues on Inderal, Lasix, Aldactone. maintained on IV antibiotics as per infectious disease. T-max 99.3, WBC trending down 16.2.. Final ascites culture results pending-currently reporting many gram-positive cocci. No active bleeding reported, hemoglobin 8.0, INR 1.3. T bili 1.6, LFTs within normal limits. Continues on lactulose, ammonia 41. Objective - Vital Signs Vital signs: Vital Signs Temp 99.3 F 09/20/18 04:39 Pulse 84 09/20/18 04:39 Resp 18 09/20/18 04:39 BP 122/62 09/20/18 04:39 Pulse Ox 96 09/20/18 04:39 Intake & Output 09/19/18 09/20/18 09/20/18 18:59 06:59 18:59 Output Total 30 Balance -30 Output: Drainage 30 Right Lower Abdomen 30 Other: Voiding Method Toilet Urinal # Voids 3 2 1 # Bowel Movements 1 - Exam General: The patient is awake and alert, no acute distress Neck: The neck is supple, there is no thyromegaly, lymphadenopathy, tenderness or JVD. Cardiovascular: S1S2 is normal, There is a regular rate and rhythm. No murmur, rub or gallop is appreciated. Respiratory: Lungs are coarse to auscultation bilaterally, respirations are non-labored, breath sounds are equal. Gastrointestinal: Soft, mildly distended, mild diffuse tenderness, mild ascites, positive bowel sounds, hepatomegaly,right lower quadrant ostomy with minimal serous drainage site from prior paracentesis Musculoskeletal: Normal ROM, no tenderness, no calf tenderness, there is +2 pedal edema swelling. Neurological: CN II-XII intact, there are no obvious motor or sensory deficits. Coordination appears grossly intact. Speech is normal. He is awake alert and oriented 3 today. No focal deficits. Skin: Skin is warm and dry and no rashes or lesions are noted. - Labs CBC & Chem 7: 09/20/18 08:29 09/20/18 08:29 Labs: Abnormal Lab Results - Last 24 Hours (Table) 09/19/18 09/20/18 09/20/18 Range/Units 10:23 08:29 08:29 WBC 20.8 H 16.2 H (3.8-10.6) k/uL RBC 2.83 L 2.80 L (4.30-5.90) m/uL Hgb 8.3 L 8.0 L (13.0-17.5) gm/dL Hct 25.8 L 25.2 L (39.0-53.0) % RDW 20.1 H 19.7 H (11.5-15.5) % Neutrophils # 15.5 H (1.3-7.7) k/uL Neutrophils # (Manual) 12.80 H (1.3-7.7) k/uL Monocytes # 2.5 H (0-1.0) k/uL Monocytes # (Manual) 1.62 H (0-1.0) k/uL PT 13.2 H (9.0-12.0) sec INR 1.3 H (<1.2) Sodium (137-145) mmol/L BUN (9-20) mg/dL Glucose (74-99) mg/dL Calcium (8.4-10.2) mg/dL Total Bilirubin (0.2-1.3) mg/dL Ammonia (<30) umol/L Total Protein (6.3-8.2) g/dL Albumin (3.5-5.0) g/dL 09/20/18 09/20/18 Range/Units 08:29 08:29 WBC (3.8-10.6) k/uL RBC (4.30-5.90) m/uL Hgb (13.0-17.5) gm/dL Hct (39.0-53.0) % RDW (11.5-15.5) % Neutrophils # (1.3-7.7) k/uL Neutrophils # (Manual) (1.3-7.7) k/uL Monocytes # (0-1.0) k/uL Monocytes # (Manual) (0-1.0) k/uL PT (9.0-12.0) sec INR (<1.2) Sodium 133 L (137-145) mmol/L BUN 7 L (9-20) mg/dL Glucose 108 H (74-99) mg/dL Calcium 7.5 L (8.4-10.2) mg/dL Total Bilirubin 1.6 H (0.2-1.3) mg/dL Ammonia 41 H (<30) umol/L Total Protein 5.0 L (6.3-8.2) g/dL Albumin 2.3 L (3.5-5.0) g/dL Microbiology - Last 24 Hours (Table) 09/19/18 18:06 Gram Stain - Preliminary Sputum Sputum Culture - Preliminary 09/18/18 22:08 Blood Culture - Preliminary Blood No Growth after 24 hours 09/18/18 22:04 Blood Culture - Preliminary Blood No Growth after 24 hours 09/18/18 10:50 Urine Culture - Final Urine,Voided Assessment and Plan Assessment: -Acute on chronic blood loss anemia secondary to Acute GI bleed in a patient with history of esophageal varices, liver cirrhosis, portal hypertension, ongoing alcohol abuse, status post recent banding on 07/05 and 08/31. Reported hemoptysis at home, currently having melena stools. -Esophageal varices, recent banding 07/05, 08/31 -Ongoing EtOH abuse, vodka bottle found in patient's pocket on admission. -Portal hypertension -Alcohol liver Cirrhosis with ascites. paracentesis 09/05/2018; cytology and cultures negative, most recent paracentesis 09/18/2018, cultures pending -Coagulopathy -Hyperammoniemia -Ongoing nicotine dependence -Chronic pancreatitis -Nephrolithiasis -Hyperkalemia -Leukocytosis, possible spontaneous bacterial peritonitis, recent ascites fluid cultures reporting gram-positive cocci, possibly related to recent transfusions of packed RBCs -History of left sided traumatic rib fractures -Metabolic acidosis - Depression Plan: Continue on current medication regime, PPI, monitoring and symptomatic treatment. Continue on fluid restrictions, Aldactone, Lasix, lactulose, Inderal, Zosyn. Discharge planning in progress pending final peritoneal fluid culture results/ID clearance. Alcohol cessation re-discussed. Patient con tinues to decline alcohol abuse rehab resources, med-management options as per psychiatry to cutdown urges/craving. Pain management as per pain management services. Prognosis poor. The impression and plan of care has been dictated as directed. : I performed a history and examination of this patient, discussed the same with the dictator. I agree with the dictator's note ,documented as a scribe. Any additional findings or plans will be noted. Time taken: 35 minutes
[2018-09-20] MEDS: SODIUM CHLORIDE 0.9% 1,000 ML IV SCH (12:36)
[2018-09-20] MEDS: ACAMPROSATE CALCIUM 333 MG TABLET.DR PO SCH ×2 (14:20→20:31)
--- NOTE | 2018-09-20 23:08 | P.PN ---
Subjective Progress Note Date: 09/20/18 43-year-old male has significant recent past medical history regarding his declining status regarding his chronic alcoholism and chronic liver disease. He was recently hospitalized. At that point in time he just intestinal bleeding and was noted by gastroenterology and bleeding esophageal varices were clipped. Shortly after his discharge and patient again had some bleeding and again was evaluated and had further esophageal variceal clips applied. The patient is not feeling very well. He has ascites that is uncomfortable, worsening lower extremity edema and feels poorly overall. His temperature has increased 99.4 he feels chilled but without rigor. The laboratories reveal evidence of elevated total bilirubin which seems to be improving at this time. With leukocytosis and concerns to worsening infection the consult was requested. 09/19/2018 other than complaints of pain the patient is doing relatively well. His ascites is stable. No evidence of any further hematemesis or hematochezia. With his ascites and alcoholic liver disease and esophageal varices with bleeding his antibiotic therapy was altered to Zosyn and he is now afebrile leukocytosis is improving and he does feel better except for as noted in pain. Pain management consult has occurred and directions are being followed. If the patient continues to improve he may de-escalate antibiotic therapy to Augmentin to complete a course of therapy at home. Should follow-up with gastroenterology after discharge to determine if he is a candidate for SBP prophylaxis. 09/20/2018 patient is feeling better now today that there is been some further alteration of his pain medication. With is pretty miserable overnight. Other than this he denied fevers or chills. Discharge plan is in process. Objective - Vital Signs Vital signs: Vital Signs Temp 100.3 F H 09/20/18 21:17 Pulse 85 09/20/18 21:17 Resp 18 09/20/18 21:17 BP 119/71 09/20/18 21:17 Pulse Ox 93 L 09/20/18 21:17 Intake & Output 09/20/18 09/20/18 09/21/18 06:59 18:59 06:59 Other: Voiding Method Toilet Urinal # Voids 2 3 # Bowel Movements 0 - Exam 43-year-old male who appears older than his stated age, relates he feels poorly HEENT: Anicteric conjunctiva are pink and moist nasal mucosa grossly intact without significant lesions, there is no thrush. Neck: The neck is supple without significant lymphadenopathy or thyromegaly. Lungs: Good bilateral air entry without significant crackles or wheezing. There is no significant bronchial sounds. There is no egophony or dullness. Heart: Regular rate and rhythm with an audible S1-S2, no S3 no S4. There is no significant murmur click or rub, PMI was nondisplaced. Abdomen: easily palpable ascites with distended abdomen, however is related this is considerably better than it was before the paracentesis of 09/05/2018. There is some generalized abdominal discomfort upon exam. Organomegaly cannot be palpated Extremities: extremities reveal evidence of the generalized edema to the lower extremity but no open ulcerations are seen. The feet are well perfused with adequate capillary refill Neuro: Awake alert oriented to person place and time. There are no acute new gross focal sensory motor deficits. - Labs CBC & Chem 7: 09/20/18 08:29 09/20/18 08:29 Labs: Abnormal Lab Results - Last 24 Hours (Table) 09/20/18 09/20/18 09/20/18 Range/Units 08:29 08:29 08:29 WBC 16.2 H (3.8-10.6) k/uL RBC 2.80 L (4.30-5.90) m/uL Hgb 8.0 L (13.0-17.5) gm/dL Hct 25.2 L (39.0-53.0) % RDW 19.7 H (11.5-15.5) % Neutrophils # (Manual) 12.80 H (1.3-7.7) k/uL Monocytes # (Manual) 1.62 H (0-1.0) k/uL PT 13.2 H (9.0-12.0) sec INR 1.3 H (<1.2) Sodium 133 L (137-145) mmol/L BUN 7 L (9-20) mg/dL Glucose 108 H (74-99) mg/dL Calcium 7.5 L (8.4-10.2) mg/dL Total Bilirubin 1.6 H (0.2-1.3) mg/dL Ammonia (<30) umol/L Total Protein 5.0 L (6.3-8.2) g/dL Albumin 2.3 L (3.5-5.0) g/dL 09/20/18 Range/Units 08:29 WBC (3.8-10.6) k/uL RBC (4.30-5.90) m/uL Hgb (13.0-17.5) gm/dL Hct (39.0-53.0) % RDW (11.5-15.5) % Neutrophils # (Manual) (1.3-7.7) k/uL Monocytes # (Manual) (0-1.0) k/uL PT (9.0-12.0) sec INR (<1.2) Sodium (137-145) mmol/L BUN (9-20) mg/dL Glucose (74-99) mg/dL Calcium (8.4-10.2) mg/dL Total Bilirubin (0.2-1.3) mg/dL Ammonia 41 H (<30) umol/L Total Protein (6.3-8.2) g/dL Albumin (3.5-5.0) g/dL Microbiology - Last 24 Hours (Table) 09/18/18 15:00 Gram Stain - Final Ascites Fluid Body Fluid Culture - Final Staphylococcus haemolyticus 09/19/18 18:06 Gram Stain - Preliminary Sputum Sputum Culture - Preliminary 09/18/18 22:08 Blood Culture - Preliminary Blood No Growth after 24 hours 09/18/18 22:04 Blood Culture - Preliminary Blood No Growth after 24 hours Laboratory Results WBC 16.2 k/uL (3.8-10.6) H 09/20/18 08:29 RBC 2.80 m/uL (4.30-5.90) L 09/20/18 08:29 Hgb 8.0 gm/dL (13.0-17.5) L 09/20/18 08:29 Hct 25.2 % (39.0-53.0) L 09/20/18 08:29 MCV 90.0 fL (80.0-100.0) 09/20/18 08:29 MCH 28.5 pg (25.0-35.0) 09/20/18 08:29 MCHC 31.6 g/dL (31.0-37.0) 09/20/18 08:29 RDW 19.7 % (11.5-15.5) H 09/20/18 08:29 Plt Count 239 k/uL (150-450) 09/20/18 08:29 Neutrophils % 75 % 09/19/18 10:23 Neutrophils % (Manual) 79 % 09/20/18 08:29 Band Neutrophils % 1 % 09/14/18 20:54 Lymphocytes % 6 % 09/19/18 10:23 Lymphocytes % (Manual) 10 % 09/20/18 08:29 Monocytes % 12 % 09/19/18 10:23 Monocytes % (Manual) 10 % 09/20/18 08:29 Eosinophils % 3 % 09/19/18 10:23 Eosinophils % (Manual) 1 % 09/20/18 08:29 Basophils % 1 % 09/19/18 10:23 Neutrophils # 15.5 k/uL (1.3-7.7) H 09/19/18 10:23 Neutrophils # (Manual) 12.80 k/uL (1.3-7.7) H 09/20/18 08:29 Lymphocytes # 1.3 k/uL (1.0-4.8) 09/19/18 10:23 Lymphocytes # (Manual) 1.62 k/uL (1.0-4.8) 09/20/18 08:29 Monocytes # 2.5 k/uL (0-1.0) H 09/19/18 10:23 Monocytes # (Manual) 1.62 k/uL (0-1.0) H 09/20/18 08:29 Eosinophils # 0.6 k/uL (0-0.7) 09/19/18 10:23 Eosinophils # (Manual) 0.16 k/uL (0-0.7) 09/20/18 08:29 Basophils # 0.1 k/uL (0-0.2) 09/19/18 10:23 Nucleated RBCs 0 /100 WBC (0-0) 09/20/18 08:29 Manual Slide Review Performed 09/20/18 08:29 Large Platelets Present 09/14/18 12:08 Polychromasia Present 09/14/18 20:54 Hypochromasia Moderate 09/20/18 08:29 Poikilocytosis Slight 09/20/18 08:29 Poikilocytosis (manual Present 09/14/18 20:54 Anisocytosis Slight 09/20/18 08:29 Macrocytosis Slight 09/19/18 10:23 Target Cells Present 09/14/18 20:54 Ovalocytes Present 09/13/18 21:38 Fragmented RBCs Present 09/13/18 21:38 PT 13.2 sec (9.0-12.0) H 09/20/18 08:29 INR 1.3 (<1.2) H 09/20/18 08:29 APTT 29.3 sec (22.0-30.0) 09/14/18 04:38 Sodium 133 mmol/L (137-145) L 09/20/18 08:29 Potassium 3.6 mmol/L (3.5-5.1) 09/20/18 08:29 Chloride 104 mmol/L (98-107) 09/20/18 08:29 Carbon Dioxide 22 mmol/L (22-30) 09/20/18 08:29 Anion Gap 7 mmol/L 09/20/18 08:29 BUN 7 mg/dL (9-20) L 09/20/18 08:29 Creatinine 0.66 mg/dL (0.66-1.25) 09/20/18 08:29 Est GFR (CKD-EPI)AfAm >90 (>60 ml/min/1.73 sqM) 09/20/18 08:29 Est GFR (CKD-EPI)NonAf >90 (>60 ml/min/1.73 sqM) 09/20/18 08:29 Glucose 108 mg/dL (74-99) H 09/20/18 08:29 POC Glucose (mg/dL) 145 mg/dL (75-99) H 09/14/18 01:22 POC Glu [employer] ID [place] 09/14/18 01:22 Lactic Ac Sepsis Rflx Y 09/13/18 22:29 Plasma Lactic Acid [place] 3.0 mmol/L (0.7-2.0) H* 09/14/18 01:55 Calcium 7.5 mg/dL (8.4-10.2) L 09/20/18 08:29 Phosphorus 3.3 mg/dL (2.5-4.5) 09/17/18 05:01 Magnesium 1.6 mg/dL (1.6-2.3) 09/20/18 08:29 Total Bilirubin 1.6 mg/dL (0.2-1.3) H 09/20/18 08:29 Conjugated Bilirubin 0.0 mg/dL (0.0-0.3) 09/13/18 21:38 Unconjugated Bilirubin 0.8 mg/dL (0.0-1.1) 09/13/18 21:38 Delta Bilirubin 0.3 mg/dL (0.0-0.2) H 09/13/18 21:38 AST 41 U/L (17-59) 09/20/18 08:29 ALT 33 U/L (21-72) 09/20/18 08:29 Alkaline Phosphatase 85 U/L (38-126) 09/20/18 08:29 Ammonia 41 umol/L (<30) H 09/20/18 08:29 Total Protein 5.0 g/dL (6.3-8.2) L 09/20/18 08:29 Albumin 2.3 g/dL (3.5-5.0) L 09/20/18 08:29 Lipase 175 U/L (23-300) 09/13/18 21:38 TSH 2.920 mIU/L (0.465-4.680) 09/18/18 08:09 Urine Color Yellow 09/18/18 10:50 Urine Appearance Clear (Clear) 09/18/18 10:50 Urine pH 5.5 (5.0-8.0) 09/18/18 10:50 Ur Specific [place] 1.016 (1.001-1.035) 09/18/18 10:50 Urine Protein Negative (Negative) 09/18/18 10:50 Urine Glucose (UA) Negative (Negative) 09/18/18 10:50 Urine Ketones Negative (Negative) 09/18/18 10:50 Urine Blood Negative (Negative) 09/18/18 10:50 Urine Nitrite Negative (Negative) 09/18/18 10:50 Urine Bilirubin Negative (Negative) 09/18/18 10:50 Urine Urobilinogen 4.0 mg/dL (<2.0) 09/18/18 10:50 Ur Leukocyte Esterase Negative (Negative) 09/18/18 10:50 Urine RBC 29 /hpf (0-5) H 09/14/18 04:30 Urine WBC 2 /hpf (0-5) 09/14/18 04:30 Ur Squamous Epith Cells <1 /hpf (0-4) 09/14/18 04:30 Hyaline Casts 26 /lpf (0-2) H 09/14/18 04:30 Urine Mucus Rare /hpf (None) H 09/14/18 04:30 Stool Occult Blood Positive (Negative) 09/14/18 04:00 Serum Alcohol 99 mg/dL 09/14/18 01:55 Blood Type A Negative 09/13/18 21:38 Blood Type Recheck No 09/13/18 21:38 Antibody Screen POSITIVE 09/13/18 21:38 Antibody Identification Anti-S 09/13/18 21:38 Direct Antiglob Test Negative 09/13/18 21:38 Crossmatch See Detail 09/13/18 21:38 Spec Expiration Date 09/16/2018 - 233709/13/18 21:38 Microbiology 09/18/18 15:00 Ascites Fluid Gram Stain - Final 09/18/18 15:00 Ascites Fluid Body Fluid Culture - Final Staphylococcus haemolyticus 09/19/18 18:06 Sputum Gram Stain - Preliminary 09/19/18 18:06 Sputum Sputum Culture - Preliminary 09/18/18 22:08 Blood Blood Culture - Preliminary No Growth after 24 hours 09/18/18 22:04 Blood Blood Culture - Preliminary No Growth after 24 hours 09/18/18 10:50 Urine,Voided Urine Culture - Final Assessment and Plan (1) Cirrhosis of liver with ascites Current Visit: Yes Status: Acute Code(s): K74.60 - UNSPECIFIED CIRRHOSIS OF LIVER; R18.8 - OTHER ASCITES SNOMED Code(s): 35453154 (2) Esophageal varices with bleeding Current Visit: No Status: Acute Code(s): I85.01 - ESOPHAGEAL VARICES WITH BLEEDING SNOMED Code(s): 79853877 (3) Leukocytosis Narrative/Plan: 43-year-old male presents to Hospital feeling poorly with recurrent bleeding of his esophageal varices. He has been evaluated by gastroenterology and has had intervention with further variceal clips being applied. On 09/05/2018 the patient did have a paracentesis and relates that the extensive ascites is less at this point in time but continues to have ascites and some increasing amounts of abdominal pain. With leukocytosis, ascites and evidence of the ongoing oozing from the prior paracentesis site does increase the risk for underlying infection. The patient has not been on any type of prophylactic antibiotic therapy for his ascites. He was placed on Rocephin but is still feeling poorly at this time. With the significant chronic ascites and chronic liver disease concerns to spend his bacterial peritonitis as well as early cholangitis. Antibiotic therapy is altered to Zosyn pending culture results. The patient's prior paracentesis revealed no evidence of any underlying infection. Leukocytosis we will monitor. Pain control as per primary. Of note the patient has required several units of packed red cell transfusion and remains a possibility of leukocytosis related to his recent transfusions. 09/20/2018 the patient has had some further improvement over the last day except for his pain control. Although this is improved this afternoon. Culture from the drainage in the bag as some coagulase-negative staphylococci At this time plan was to be to utilize oral Augmentin at discharge. Ongoing supportive care. Follow up with gastroenterology for the possibility of SBP pro phylaxis if indicated. Current Visit: Yes Status: Acute Code(s): D72.829 - ELEVATED WHITE BLOOD CELL COUNT, UNSPECIFIED SNOMED Code(s): 296394820
[2018-09-21] MEDS: PIPERACILLIN-TAZOBACTAM 3.375 GM in SODIUM CHLORIDE 0.9% 100 ML IVPB SCH ×3 (00:03→16:12)
[2018-09-21] MEDS: FUROSEMIDE 20 MG TAB PO SCH ×2 (08:34→16:10)
[2018-09-21] MEDS: PANTOPRAZOLE 40 MG TABLET PO SCH ×2 (08:34→16:11)
[2018-09-21] MEDS: SPIRONOLACTONE 25 MG TAB PO SCH (08:34)
[2018-09-21] MEDS: ACAMPROSATE CALCIUM 333 MG TABLET.DR PO SCH ×2 (08:35→16:10)
[2018-09-21] MEDS: PROPRANOLOL 10 MG TAB PO SCH ×2 (08:35→16:11)
[2018-09-21] MEDS: NICOTINE 21MG/24HR PATCH TRANSDERM SCH (08:36)
[2018-09-21] MEDS: LACTULOSE 20 GM/30 ML CUP PO SCH ×2 (08:36→16:10)
--- NOTE | 2018-09-21 10:20 | P.PN ---
Subjective Progress Note Date: 09/21/18 Principal diagnosis: GI variceal bleed No active GI bleeding. Low-grade fevers. Status post EGD with variceal banding 4. No labs to review today. Objective - Vital Signs Vital signs: Vital Signs Temp 99.2 F 09/21/18 05:52 Pulse 77 09/21/18 05:52 Resp 18 09/21/18 05:52 BP 108/65 09/21/18 05:52 Pulse Ox 97 09/21/18 05:52 Intake & Output 09/20/18 09/21/18 09/21/18 18:59 06:59 18:59 Other: Voiding Method Toilet Toilet Urinal Urinal # Voids 3 1 # Bowel Movements 0 - Exam General appearance: The patient is alert, oriented, in no acute distress. HET: Head is normocephalic and atraumatic. Pupils are equal and reactive. Oropharynx is clear without lesions. Neck: Supple without lymphadenopathy. Trachea midline. Heart: S1 S2. Regular rate and rhythm. Lungs: No crackles or wheezes are heard. Abdomen: Soft, mildly distended with mild ascites mild tenderness across mid abdomen with bowel sounds. Ostomy to Right abdomen minimal serous drainage. No peritoneal signs. No palpable organomegaly or masses. Extremities: +2 bilateral lower extremity edema. Scrotal edema present. Neurological: No focal deficits. Strength and sensation are grossly intact. - Labs CBC & Chem 7: 09/20/18 08:29 09/20/18 08:29 Labs: Abnormal Lab Results - Last 24 Hours (Table) 09/20/18 09/20/18 Range/Units 08:29 08:29 Neutrophils # (Manual) 12.80 H (1.3-7.7) k/uL Monocytes # (Manual) 1.62 H (0-1.0) k/uL Ammonia 41 H (<30) umol/L Microbiology - Last 24 Hours (Table) 09/19/18 18:06 Gram Stain - Final Sputum Sputum Culture - Final Marga albicans 09/18/18 22:08 Blood Culture - Preliminary Blood No Growth after 48 hours 09/18/18 22:04 Blood Culture - Preliminary Blood No Growth after 48 hours 09/18/18 15:00 Gram Stain - Final Ascites Fluid Body Fluid Culture - Final Staphylococcus haemolyticus Assessment and Plan (1) Hematemesis Narrative/Plan: 43-year-old male admitted with acute blood loss anemia secondary to acute hematemesis GI bleed with underlying history of alcohol liver cirrhosis portal hypertension and esophageal varices. Actively drinking alcohol with history of medical noncompliance. Recent EGD colonoscopy for evaluation of GI bleed with findings of esophageal varices status post banding colonoscopy incomplete secondary to poor prep with evidence of internal hemorrhoids. Status post EGD 09/14/18 variceal banding x 4. Current Visit: No Status: Acute Code(s): K92.0 - HEMATEMESIS SNOMED Code(s): 8314444 (2) GI bleed Current Visit: Yes Status: Acute Code(s): K92.2 - GASTROINTESTINAL HEMORRHAGE, UNSPECIFIED SNOMED Code(s): 03216974 (3) Esophageal varices Current Visit: No Status: Acute Code(s): I85.00 - ESOPHAGEAL VARICES WITHOUT BLEEDING SNOMED Code(s): 44037644 (4) Acute blood loss anemia Current Visit: Yes Status: Acute Code(s): D62 - ACUTE POSTHEMORRHAGIC ANEMIA SNOMED Code(s): 661401719 (5) Chronic anemia Current Visit: No Status: Acute Code(s): D64.9 - ANEMIA, UNSPECIFIED SNOMED Code(s): 313966199 (6) Hyperkalemia Current Visit: Yes Status: Acute Code(s): E87.5 - HYPERKALEMIA SNOMED Code(s): 21809941 (7) Coagulopathy Current Visit: No Status: Acute Code(s): D68.9 - COAGULATION DEFECT, UNSPECIFIED SNOMED Code(s): 78888774 (8) History of alcohol abuse Current Visit: No Status: Acute Code(s): Z87.898 - PERSONAL HISTORY OF OTHER SPECIFIED CONDITIONS SNOMED Code(s): 428711807 (9) Hyperammonemia Narrative/Plan: Hepatic encephalopathy Current Visit: Yes Status: Acute Code(s): E72.20 - DISORDER OF UREA CYCLE METABOLISM, UNSPECIFIED SNOMED Code(s): 7667063 (10) Cirrhosis of liver with ascites Current Visit: Yes Status: Acute Code(s): K74.60 - UNSPECIFIED CIRRHOSIS OF LIVER; R18.8 - OTHER ASCITES SNOMED Code(s): 70201510 Plan: 1. Continue present medical therapy. Patient is scheduled for outpatient paracentesis on Wednesday we'll perform a bedside ultrasound today to assess for ascites possible inpatient paracentesis before discharge. Return office in 3-4 weeks for reevaluation. Low-sodium diet. Continue with Lasix 40 mg twice daily and Aldactone 100 mg daily. Lactulose 20 g 3 times a day titrate for at least 3-4 bowel movements daily. Inderal 10 mg 3 times daily on discharge. Alcohol abstinence reinforced. Assessment and plan a care discussed with Dr. Harrington
--- NOTE | 2018-09-21 11:35 | US ---
EXAMINATION TYPE: US abdomen limited DATE OF EXAM: 09/21/2018 COMPARISON: US CLINICAL HISTORY: assess ascites only. Ascites is imaged in all four abdominal quadrants with largest fluid pocket at RLQ = 6.2cm A/P. IMPRESSION: Ascites as noted.
[2018-09-21 11:53] LABS: ALT 30 U/L (21-72); AST 42 U/L (17-59); Albumin 2.2 g/dL (3.5-5.0); Alkaline Phosphatase 74 U/L (38-126); Anion Gap 5 mmol/L; Blood Urea Nitrogen 8 mg/dL (9-20); Calcium 7.7 mg/dL (8.4-10.2); Carbon Dioxide 25 mmol/L (22-30); Chloride 103 mmol/L (98-107); Glucose 119 mg/dL (74-99); Potassium 3.3 mmol/L (3.5-5.1); Sodium 133 mmol/L (137-145); Total Bilirubin 1.5 mg/dL (0.2-1.3); Total Protein 4.9 g/dL (6.3-8.2)
[2018-09-21 11:57] LABS: INR 1.6 (<1.2); Prothrombin Time 16.4 sec (9.0-12.0)
[2018-09-21 12:05] LABS: Anisocytosis Slight; HCT 24.6 % (39.0-53.0); HGB 7.9 gm/dL (13.0-17.5); Hypochromasia Marked; MCH 28.8 pg (25.0-35.0); MCHC 32.1 g/dL (31.0-37.0); Mean Platelet Volume 8.5; Platelet Count 222 k/uL (150-450); Poikilocytosis Slight; RBC 2.73 m/uL (4.30-5.90); RDW 19.1 % (11.5-15.5); WBC 13.4 k/uL (3.8-10.6)
[2018-09-21] MEDS: SODIUM CHLORIDE 0.9% 1,000 ML IV SCH (12:21)
[2018-09-21 13:00] LABS: Lymphocytes # (M) 0.54 k/uL (1.0-4.8); Monocytes # (M) 1.74 k/uL (0-1.0); Neutrophils # (M) 11.12 k/uL (1.3-7.7); Neutrophils % (M) 83 %; Nucleated Red Blood Cells 0 /100 WBC (0-0); Total Cells Counted 100
[2018-09-21 13:02] LABS: Mixed Population RBC Present
[2018-09-21] MEDS ORDERED: Potassium Replacement Protocol 1 EACH MISC MISCELLANE PRN (13:38)
[2018-09-21] MEDS: POTASSIUM CHLORIDE ER 20 MEQ TAB.ER PO SCH ×2 (13:47→16:09)
[2018-09-21 14:05] VITALS: BMI 29.6
--- NOTE | 2018-09-21 15:21 | P.DS ---
Providers Date of admission: 09/14/18 00:21 Expected date of discharge: 09/21/18 Attending physician: Aristeo Fox Dr Susana Consults: 09/14/18 00:11 Consult Physician Routine Consulting Provider: Taina Isbell Consult Reason/Comments: icu patient Do you want consulting provider notified?: Already Contacted 09/14/18 00:21 Consult Physician Routine Consulting Provider: Epifanio Harrington Consult Reason/Comments: bleeding varices Do you want consulting provider notified?: Already Contacted 09/16/18 11:17 Consult Physician Routine Consulting Provider: Kyler Dinero Consult Reason/Comments: depression, alcohol dependence, Do you want consulting provider notified?: Yes 09/18/18 11:12 Consult Physician Routine Consulting Provider: Chandan Davidson Consult Reason/Comments: Possible spontaneous bacterial peritonitisn Do you want consulting provider notified?: Already Contacted Primary care physician: [facility] Course: Final Diagnoses: -Acute on chronic blood loss anemia secondary to Acute GI bleed in a patient with history of esophageal varices, liver cirrhosis, portal hypertension, ongoing alcohol abuse, status post recent banding on 07/05 and 08/31. Reported hemoptysis at home, currently having melena stools. Status post repeat EGD reporting esophageal varices, status post banding 4. -Esophageal varices, recent banding 07/05, 08/31,09/14 -Ongoing EtOH abuse, vodka bottle found in patient's pocket on admission. -Portal hypertension -Alcohol liver Cirrhosis with ascites. paracentesis 09/05/2018; cytology and cultures negative, most recent paracentesis 09/18/2018, cultures pending -Coagulopathy -Hyperammoniemia -Ongoing nicotine dependence -Chronic pancreatitis -Nephrolithiasis -Hyperkalemia -Leukocytosis, possible spontaneous bacterial peritonitis, recent ascites fluid cultures reporting staph haemolyticus. -History of left sided traumatic rib fractures -Metabolic acidosis - Depression Hospital course:This is a 43-year-old gentleman with history of esophageal varices, portal hypertension ,ongoing alcohol abuse, liver cirrhosis, GI bleeds, noncompliant with medication regimen and multiple other medical issues admitted with complaints of vomiting bight red blood. Patient recently discharged on 09/06 status post EGD reporting esophageal varices, status post banding. (Prior to that patient had banding done on 07/05/18.)Colonoscopy at that time had been aborted secondary to poor prep, reported evidence of internal hemorrhoids. Paracentesis last admission of 5 L, with negative cytology. May 2018 hepatitis screen nonreactive. Telemetry sinus tachycardia. EKG reports sinus tachycardia.VSS. Hemoglobin 6.6, MCV 88, platelets 290 INR 1.3, lactic acid 2.2, abdominal x-ray reports nonacute abdomen, questionable groundglass opacity's of the left upper and lower lobes. Serum Alcohol level 99, ammonia level 57.This morning ICU reports melena stools, mostly clots. No further hemoptysis. Admitted to ICU. Patient has received a total of 3 units packed RBCs, current hemoglobin 7.4. Potassium 5.9, up to 6, received insulin, bicarbonate, D50 with recheck pending. T bili 1.8 AST 57, ALT 36, AP 83. Afebrile, WBC 15.3 on admission, increased to 22.1. Sodium 136. CO2 18, pO2 of 14, creatinine 0.72. Denies chest pain, palpitations or increasing shortness of breath. Evaluated by GI, scheduled for EGD. 09/15/18 patient underwent EGD yesterday reporting distal esophageal varices with variceal band ligation-4 bands. Maintained on Rocephin. Afebrile. Patient also had paracentesis completed yesterday with 4 L of dark yellow turbid peritoneal drainage. Tolerated procedures well. No further bleeding since yesterday, maintained on IV PPI as well as Sandostatin. Receiving 1 unit of pa cked RBCs for hemoglobin of 6.8. Continues on CIWA protocol, no DTs at this time. Telemetry sinus rhythm. Ammonia level ordered. T bili 1.7. Abdominal ultrasound reporting small ascites. 09/16/2018 no further bleeding, hemoglobin 7.8. Sandostatin weaned off. Ammonia decreased to 82 today from 200 yesterday, on lactulose. Reports diffuse abdominal discomfort. Afebrile. Continues on Lasix, Aldactone. Telemetry sinus rhythm. Site of prior paracentesis tap draining -serous drainage. 09/17/2018: Patient is resting comfortably in his bed. He remains in intensive care unit. He denies any chest pains, pressures, or shortness breath. His abdominal pain is lessened. He has an order for morphine 2 mg IV push every 2 hours. He remains on furosemide and spironolactone along with Rocephin for antibiotic coverage. Hemoglobin is up to 8.3 today. Ammonia level is down to 46 today. He continues on lactulose. 09/18/2018: Patient been transferred to [facility] floor. He continues complaining of abdominal pain. He denies any chest pains, pressures, or shortness of breath. His pain medication morphine is been decreased to 1 mg IV push every 4 hours as needed and Dilaudid 2 mg every 6 hours as needed was added. Hemoglobin is improved 8.9. He also has developed a leukocytosis that is worsened. It's gone from 10.2-15.9 and today it is 22.1 with 17.9 absolute neutrophils. INR is 1.3. Ammonia level is improved at 33 today. He is developed a mild hyponatremia at 133. He remains on antibiotic coverage of Rocephin 1 g daily. He continues on Lasix and swollen lactone for ascites control. He continues to have a drain with minimal discharge for ascites. He remains on propanolol for hypertension and esophageal varices controlled. He remains on lactulose to help control his ammonia level. 09/19/2018 receiving oral Dilaudid and IV morphine with no relief in his abdominal pain. Pain management service consulted with recommendations noted and appreciated; Dilaudid and morphine have been discontinued and now on oxycodone. Hemoglobin 8.3. T-max 101.3, WBC down to 20.8, ascites fluid cx reporting many gram-positive cocci. Maintained on IV antibiotics as per infe ctious disease. INR 1.3, total bili 1.4, ammonia 35, albumin 2.3 sodium 132. Evaluated by psychiatry, recommended naltrexone, Vivitrol,cmapral-patient declined. Substance abuse Rehab resources offered-patient declined. 09/20/2018 continues on Inderal, Lasix, Aldactone. maintained on IV antibiotics as per infectious disease. T-max 99.3, WBC trending down 16.2.. Final ascites culture results pending-currently reporting many gram-positive cocci. No active bleeding reported, hemoglobin 8.0, INR 1.3. T bili 1.6, LFTs within normal limits. Continues on lactulose, ammonia 41. 09/21/2018 no active bleeding.labs pending.Campral added to med regime yesterday.cleared by all consults for discharge. Final peritoneal fluid growing staph haemolyticus the final DC antibiotics as per infectious disease. Patient will also be on Levaquin 500 mg daily 1 week as per GI for potential SBP prophylaxis. Abdominal ultrasound pending for potential paracentesis prior to discharge as per GI. Alcohol cessation reinforced. Patient is being discharged home today in a stable condition with guarded prognosis. - Exam General: Alert and oriented 3, no acute distress Neck: The neck is supple, there is no thyromegaly, lymphadenopathy, tenderness or JVD. Cardiovascular: S1S2 is normal, regular rate and rhythm. No murmur, rub or gallop Respiratory: Lungs are coarse to auscultation bilaterally, respirations are non-labored, breath sounds are equal. Gastrointestinal: Soft, mildly distended, mild diffuse tenderness, positive ascites, positive bowel sounds, right lower quadrant ostomy with minimal serous drainage site from prior paracentesis Musculoskeletal: Normal ROM, no tenderness, no calf tenderness, there is +2 pedal edema swelling. Neurological: CN II-XII intact, there are no obvious motor or sensory deficits. Coordination appears grossly intact. Speech is normal. He is awake alert and oriented 3 today. No focal deficits. Skin: Skin is warm and dry and no rashes or lesions are noted. The impression and plan of care has been dictated as directed. : I performed a history and examination of this patient, discussed the same with the dictator. I agree with the dictator's note ,documented as a scribe. Any additional findings or plans will be noted. Time taken: 35 minutes Patient Condition at Discharge: Stable Plan - Discharge Summary New Discharge Prescriptions: New Amoxicillin/Potassium Clav [Augmentin 875-125 Tablet] 1 each PO Q12HR #20 tab Spironolactone [Aldactone] 100 mg PO DAILY #120 tab Acamprosate Calcium [Campral] 666 mg PO TID #180 tablet. Nicotine 21Mg/24Hr Patch [Habitrol] 1 patch TRANSDERM DAILY #30 patch Furosemide [Lasix] 40 mg PO BID@0900,1600 #60 tab Levofloxacin [Levaquin] 500 mg PO DAILY #7 tab Continue Folic Acid 1 mg PO DAILY@1200 Multivitamins, Thera [Multivitamin (formulary)] 1 tab PO DAILY #30 tablet Thiamine [Vitamin B-1] 100 mg PO DAILY #30 tablet Propranolol [Inderal] 10 mg PO TID Lactulose [Cephulac] 20 gm PO TID #900 ml Pantoprazole [Protonix] 40 mg PO BID #60 tablet. Albuterol Inhaler [Ventolin Hfa Inhaler] 2 puff INHALATION RT-Q6H PRN PRN Reason: Shortness Of Breath Discontinued Furosemide [Lasix] 20 mg PO DAILY Discharge Medication List Folic Acid 1 mg PO DAILY@1200 09/01/17 [History] Multivitamins, Thera [Multivitamin (formulary)] 1 tab PO DAILY #30 tablet 09/03/17 [Rx] Thiamine [Vitamin B-1] 100 mg PO DAILY #30 tablet 09/03/17 [Rx] Propranolol [Inderal] 10 mg PO TID 08/30/18 [History] Lactulose [Cephulac] 20 gm PO TID #900 ml 09/06/18 [Rx] Pantoprazole [Protonix] 40 mg PO BID #60 tablet. 09/06/18 [Rx] Albuterol Inhaler [Ventolin Hfa Inhaler] 2 puff INHALATION RT-Q6H PRN 09/13/18 [History] Amoxicillin/Potassium Clav [Augmentin 875-125 Tablet] 1 each PO Q12HR #20 tab 09/20/18 [Rx] Acamprosate Calcium [Campral] 666 mg PO TID #180 tablet. 09/21/18 [Rx] Furosemide [Lasix] 40 mg PO BID@0900,1600 #60 tab 09/21/18 [Rx] Levofloxacin [Levaquin] 500 mg PO DAILY #7 tab 09/21/18 [Rx] Nicotine 21Mg/24Hr Patch [Habitrol] 1 patch TRANSDERM DAILY #30 patch 09/21/18 [Rx] Spironolactone [Aldactone] 100 mg PO DAILY #120 tab 09/21/18 [Rx] Follow up Appointment(s)/Referral(s): Counts Include [facility] mental health, psychiatry [Other] - 1 Week James Meza Jr, DO [Primary Care Provider] - 09/23/18 8:30 am Shane Patel MD [STAFF PHYSICIAN] - 1 Week (For pain management ) Epifanio Harrington MD [STAFF PHYSICIAN] - 10/12/18 1:30 pm (please arrive 30 min early) Ambulatory/Diagnostic Orders: Complete Blood Count w/diff [LAB.AMB] Time Frame: 3 Days, Location: None Selected Activity/Diet/Wound Care/Special Instructions: Pending potential paracentesis and final GI clearance. Antibiotics as per ID in addition to Levaquin 500 milligrams daily 1 week as per GI for SBP prophylaxis. pain management as per pain management services No Alcohol Wednesday paracentesis
[2018-09-21 15:52] VITALS: BP 115/75; PULSE 78; RESP 16; TEMP 97.1
[2018-09-21 21:33] LABS: Appearance,BF Hazy; Color,BF Yellow; Nucleated Cells, Body Fluid 135 /uL; RBC, Body Fluid 70 /uL
[2018-09-21 21:58] LABS: Mononuclear WBC,Body Fluid 51 %; Polynuclear WBC,Body Fluid 49 %; Total Cells Counted,Body Fluid 100
--- NOTE | 2018-09-22 11:41 | US ---
Therapeutic paracentesis. DATE OF EXAM: 09/21/2018 CLINICAL HISTORY: Ascites The procedure was discussed with the patient. The risks, complications, benefits, and alternatives we re discussed and any questions were answered. Informed consent was obtained. The patient was placed s upine on the ultrasound table and prepped and draped in the usual sterile fashion. All elements of maximal barrier technique were utilized. Under ultrasound guidance, access into the left lower quadrant was obtained, via the paracentesis catheter system and direct ultrasound guidance . Approximately 2.5 liters of straw-colored fluid was removed. The patient was stable throughout the pr ocedure and remained stable upon discharge from Department of Radiology. IMPRESSION: Successful therapeutic paracentesis under ultrasound guidance.
== END 2018-09-21 19:03 | disposition home or self-care (01) | DRG 368 ==
LOC: EC 21:18 → 2SICU 09-14 00:21 → 4MS4W 09-17 16:40
PROVIDERS: ADMIT Family Medicine; ATTEND Family Medicine
PROC: 0W9G3ZZ Drainage of Peritoneal Cavity, Percutaneous Approach (ICD-10-PCS; 2018-09-14)
PROC: 30233N1 Transfusion of Nonautologous Red Blood Cells into Peripheral Vein, Percutaneous Approach (ICD-10-PCS; 2018-09-14)
PROC: 06L38CZ Occlusion of Esophageal Vein with Extraluminal Device, Via Natural or Artificial Opening Endoscopic (ICD-10-PCS; principal; 2018-09-14 09:20)
DX: I85.11 Secondary esophageal varices with bleeding (principal); K65.2 Spontaneous bacterial peritonitis; D68.4 Acquired coagulation factor deficiency; D62 Acute posthemorrhagic anemia; E87.1 Hypo-osmolality and hyponatremia; E87.2 Acidosis; J98.11 Atelectasis; K76.6 Portal hypertension; K83.09 Other cholangitis; K86.0 Alcohol-induced chronic pancreatitis; D69.6 Thrombocytopenia, unspecified; E87.5 Hyperkalemia; K70.31 Alcoholic cirrhosis of liver with ascites; K72.90 Hepatic failure, unspecified without coma; F10.20 Alcohol dependence, uncomplicated; F17.210 Nicotine dependence, cigarettes, uncomplicated; F32.9 Major depressive disorder, single episode, unspecified; F43.10 Post-traumatic stress disorder, unspecified; I10 Essential (primary) hypertension; J45.909 Unspecified asthma, uncomplicated; K64.8 Other hemorrhoids; B95.7 Other staphylococcus as the cause of diseases classified elsewhere; J44.9 Chronic obstructive pulmonary disease, unspecified; Z79.899 Other long term (current) drug therapy; Z91.19 Patient's noncompliance with other medical treatment and regimen; Z91.14 Patient's other noncompliance with medication regimen; Z87.442 Personal history of urinary calculi; Z86.14 Personal history of Methicillin resistant Staphylococcus aureus infection; Z87.01 Personal history of pneumonia (recurrent); Z90.49 Acquired absence of other specified parts of digestive tract; Z82.49 Family history of ischemic heart disease and other diseases of the circulatory system
CPT/HCPCS: 36415; 43255; 49083; 71045; 71046; 74022; 76705; 80053; 80320; 81001; 81003; 82140; 82248; 82272; 83605; 83690; 83735; 84100; 84132; 84443; 85025; 85027; 85610; 85730; 86850; 86870; 86880; 86900; 86901; 86902; 86920; 87040; 87070; 87077; 87086; 87186; 87205; 89050; 93005; 96365; 96375; 96376; 99291

== ENCOUNTER 2018-10-08 05:57 | Emergency (ER) | payer OTHER ==
[2018-10-08 06:02] VITALS: TEMP 98.2
[2018-10-08 06:24] LABS: Anisocytosis Slight; Basophils # (A) 0.1 k/uL (0-0.2); Basophils % (A) 1 %; Eosinophils # (A) 0.5 k/uL (0-0.7); Eosinophils % (A) 6 %; HCT 27.4 % (39.0-53.0); HGB 8.7 gm/dL (13.0-17.5); Hypochromasia Marked; Lymphocytes # (A) 1.5 k/uL (1.0-4.8); Lymphocytes % (A) 19 %; MCH 27.5 pg (25.0-35.0); MCHC 31.8 g/dL (31.0-37.0); MCV 86.5 fL (80.0-100.0); Mean Platelet Volume 8.1; Monocytes # (A) 0.6 k/uL (0-1.0); Monocytes % (A) 8 %; Neutrophils # (A) 4.9 k/uL (1.3-7.7); Neutrophils % (A) 63 %; Platelet Count 192 k/uL (150-450); Poikilocytosis Slight; RBC 3.17 m/uL (4.30-5.90); RDW 19.3 % (11.5-15.5); WBC 7.8 k/uL (3.8-10.6)
[2018-10-08] MEDS ORDERED: HYDROmorphone 0.5 MG/0.5 ML SYRINGE IVP STA (06:28)
--- NOTE | 2018-10-08 06:32 | ED ---
Abdominal Pain HPI - General Source: patient, EMS Mode of arrival: EMS Limitations: no limitations - History of Present Illness MD Complaint: abdominal pain Onset/Timin -: week(s) Location: LLQ, RLQ, suprapubic Radiation: none Migration to: no migration Severity: severe Quality: aching Consistency: constant Improves With: nothing Worsens With: nothing Associated Symptoms: nausea, constipation (Chronic) <Sabino De La Fuente - Last Filed: 10/08/18 06:29> <Chai Agrawal - Last Filed: 10/08/18 09:01> - General Chief Complaint: Abdominal Pain Stated Complaint: Abd Pain Time Seen by Provider: 10/08/18 06:10 - History of Present Illness Initial Comments: Patient's 43-year-old man who presents with complaint of lower abdominal pain that he states came on and go. He states that his got worse over the past 24 hours or so. The pain is currently severe. The pain is constant, aching. He states the pain gets worse if his abdomen is palpated, and he has not noted relieving factors. Patient states that he noted a change in his umbilicus 1-2 weeks ago after he left the hospital here. (Sabino De La Fuente) - Related Data Home Medications Medication Instructions Recorded Confirmed Folic Acid 1 mg PO DAILY@1200 09/01/17 10/08/18 Propranolol [Inderal] 10 mg PO TID 08/30/18 10/08/18 Albuterol Inhaler [Ventolin Hfa 2 puff INHALATION RT-Q6H PRN 09/13/18 10/08/18 Inhaler] Furosemide [Lasix] 40 mg PO DAILY 10/08/18 10/08/18 oxyCODONE HCL [Roxicodone] 5 mg PO Q46H PRN 10/08/18 10/08/18 Previous Rx's Medication Instructions Recorded Multivitamins, Thera [Multivitamin 1 tab PO DAILY #30 tablet 09/03/17 (formulary)] Thiamine [Vitamin B-1] 100 mg PO DAILY #30 tablet 09/03/17 Pantoprazole [Protonix] 40 mg PO BID #60 tablet. 09/06/18 Acamprosate Calcium [Campral] 666 mg PO TID #180 tablet. 09/21/18 Spironolactone [Aldactone] 100 mg PO DAILY #120 tab 09/21/18 Allergies Allergy/AdvReac Type Severity Reaction Status Date / Time No Known Allergies Allergy Verified 10/08/18 06:02 Review of Systems ROS Other: All systems not noted in ROS Statement are negative. Constitutional: Denies: fever, chills Respiratory: Denies: cough, dyspnea Cardiovascular: Denies: chest pain, palpitations, edema Gastrointestinal: Reports: abdominal pain, nausea. Denies: vomiting, diarrhea, melena, hematochezia Genitourinary: Denies: dysuria, hematuria, discharge, testicular pain, testicular mass Musculoskeletal: Denies: back pain Skin: Denies: rash Neurological: Denies: headache <Sabino De La Fuente - Last Filed: 10/08/18 06:29> ROS Other: All systems not noted in ROS Statement are negative. <Chai Agrawal - Last Filed: 10/08/18 09:01> ROS Statement: Those systems with pertinent positive or pertinent negative responses have been documented in the HPI. Past Medical History Past Medical History: Asthma, GI Bleed, Liver Disease, Pneumonia Additional Past Medical History / Comment(s): ETOH abuse, liver cirrhosis, abdominal ascites, pancreatitis, multiple gallstones, nephrolithiasis, chronic anemia, esophageal varices, hx urinating blood and kidneys stone History of Any Multi-Drug Resistant Organisms: MRSA Date of last positivie culture/infection: 12/09/2013 MDRO Source:: Right first finger Past Surgical History: Appendectomy, Cholecystectomy, Orthopedic Surgery Additional Past Surgical History / Comment(s): 07/09/17 EGD/colonoscopy, paracentesis, right hand tendon repair, right knee arthroscopy, cystoscopy for kidney stone removal, right hand ring finger surgery. Past Anesthesia/Blood Transfusion Reactions: Previous Problems w/ Anesthesia Additional Past Anesthesia/Blood Transfusion Reaction / Comment(s): Woke up during scope procedure. Past Psychological History: PTSD Smoking Status: Current every day smoker Past Alcohol Use History: Abuse, Daily Past Drug Use History: Marijuana - Past Family History Mother Family Medical History: Hypertension Father Additional Family Medical History / Comment(s): Prostate issues. Brain aneurysm. <Sabino De La Fuente - Last Filed: 10/08/18 06:29> General Exam Limitations: no limitations General appearance: alert, in no apparent distress Head exam: Present: atraumatic, normocephalic Eye exam: Present: normal appearance. Absent: scleral icterus, conjunctival injection Respiratory exam: Present: normal lung sounds bilaterally. Absent: respiratory distress, wheezes, rales, rhonchi, stridor Cardiovascular Exam: Present: regular rate, normal rhythm, normal heart sounds. Absent: systolic murmur, diastolic murmur, rubs, gallop GI/Abdominal exam: Present: soft, tenderness, guarding, hypoactive bowel sounds, hernia (Umbilical hernia). Absent: distended, rebound, rigid, mass, pulsatile mass Extremities exam: Present: normal inspection, normal capillary refill. Absent: pedal edema, calf tenderness Back exam: Present: normal inspection. Absent: CVA tenderness (R), CVA tenderness (L) Neurological exam: Present: alert Skin exam: Present: warm, dry, intact, normal color. Absent: rash <Sabino De La Fuente - Last Filed: 10/08/18 06:29> Course Vital Signs 10/08/18 10/08/18 06:00 07:57 Temperature 98.2 F Pulse Rate 74 66 Respiratory 18 16 Rate Blood Pressure 113/62 109/61 O2 Sat by Pulse 99 99 Oximetry Medical Decision Making - Lab Data Result diagrams: 10/08/18 06:15 <Sabino De La Fuente - Last Filed: 10/08/18 06:29> - Lab Data Result diagrams: 10/08/18 06:15 10/08/18 06:15 - Radiology Data Radiology results: report reviewed (Computed tomography scan of the abdomen pelvis shows ascites, similar to previous. hypodensity within the liver. Possible ileus.) <Chai Agrawal - Last Filed: 10/08/18 09:01> - Medical Decision Making Patient endorsed to me by Dr. Oconnor deferred disposition, probable discharge following CT. He did reduce abdominal hernia earlier. Patient reevaluated and states he feels much better. Abdomen soft and nontender. Patient updated on results and need for follow-up. Patient states he does see Dr. Aburto and Dr. Dickens. Patient is specifically informed need for further evaluation regarding hypodensity in the liver. (Chai Agrawal) - Lab Data Lab Results 10/08/18 10/08/18 10/08/18 Range/Units 06:15 06:15 06:15 WBC 7.8 (3.8-10.6) k/uL RBC 3.17 L (4.30-5.90) m/uL Hgb 8.7 L (13.0-17.5) gm/dL Hct 27.4 L (39.0-53.0) % MCV 86.5 (80.0-100.0) fL MCH 27.5 (25.0-35.0) pg MCHC 31.8 (31.0-37.0) g/dL RDW 19.3 H (11.5-15.5) % Plt Count 192 (150-450) k/uL Neutrophils % 63 % Lymphocytes % 19 % Monocytes % 8 % Eosinophils % 6 % Basophils % 1 % Neutrophils # 4.9 (1.3-7.7) k/uL Lymphocytes # 1.5 (1.0-4.8) k/uL Monocytes # 0.6 (0-1.0) k/uL Eosinophils # 0.5 (0-0.7) k/uL Basophils # 0.1 (0-0.2) k/uL Hypochromasia Marked Poikilocytosis Slight Anisocytosis Slight Sodium 138 (137-145) mmol/L Potassium 4.1 (3.5-5.1) mmol/L Chloride 112 H (98-107) mmol/L Carbon Dioxide 20 L (22-30) mmol/L Anion Gap 6 mmol/L BUN 6 L (9-20) mg/dL Creatinine 0.46 L (0.66-1.25) mg/dL Est GFR (CKD-EPI)AfAm >90 (>60 ml/min/1.73 sqM) Est GFR (CKD-EPI)NonAf >90 (>60 ml/min/1.73 sqM) Glucose 104 H (74-99) mg/dL Plasma Lactic Acid Balaji 1.2 (0.7-2.0) mmol/L Calcium 8.9 (8.4-10.2) mg/dL Total Bilirubin 1.3 (0.2-1.3) mg/dL AST 42 (17-59) U/L ALT 17 L (21-72) U/L Alkaline Phosphatase 116 (38-126) U/L Total Protein 6.2 L (6.3-8.2) g/dL Albumin 2.9 L (3.5-5.0) g/dL Amylase 41 (30-110) U/L Lipase 145 (23-300) U/L Urine Color Urine Appearance (Clear) Urine pH (5.0-8.0) Ur Specific [place] (1.001-1.035) Urine Protein (Negative) Urine Glucose (UA) (Negative) Urine Ketones (Negative) Urine Blood (Negative) Urine Nitrite (Negative) Urine Bilirubin (Negative) Urine Urobilinogen (<2.0) mg/dL Ur Leukocyte Esterase (Negative) 10/08/18 Range/Units 06:32 WBC (3.8-10.6) k/uL RBC (4.30-5.90) m/uL Hgb (13.0-17.5) gm/dL Hct (39.0-53.0) % MCV (80.0-100.0) fL MCH (25.0-35.0) pg MCHC (31.0-37.0) g/dL RDW (11.5-15.5) % Plt Count (150-450) k/uL Neutrophils % % Lymphocytes % % Monocytes % % Eosinophils % % Basophils % % Neutrophils # (1.3-7.7) k/uL Lymphocytes # (1.0-4.8) k/uL Monocytes # (0-1.0) k/uL Eosinophils # (0-0.7) k/uL Basophils # (0-0.2) k/uL Hypochromasia Poikilocytosis Anisocytosis Sodium (137-145) mmol/L Potassium (3.5-5.1) mmol/L Chloride (98-107) mmol/L Carbon Dioxide (22-30) mmol/L Anion Gap mmol/L BUN (9-20) mg/dL Creatinine (0.66-1.25) mg/dL Est GFR (CKD-EPI)AfAm (>60 ml/min/1.73 sqM) Est GFR (CKD-EPI)NonAf (>60 ml/min/1.73 sqM) Glucose (74-99) mg/dL Plasma Lactic Acid Balaji (0.7-2.0) mmol/L Calcium (8.4-10.2) mg/dL Total Bilirubin (0.2-1.3) mg/dL AST (17-59) U/L ALT (21-72) U/L Alkaline Phosphatase (38-126) U/L Total Protein (6.3-8.2) g/dL Albumin (3.5-5.0) g/dL Amylase (30-110) U/L Lipase (23-300) U/L Urine Color Yellow Urine Appearance Clear (Clear) Urine pH 7.0 (5.0-8.0) Ur Specific [place] 1.006 (1.001-1.035) Urine Protein Negative (Negative) Urine Glucose (UA) Negative (Negative) Urine Ketones Negative (Negative) Urine Blood Negative (Negative) Urine Nitrite Negative (Negative) Urine Bilirubin Negative (Negative) Urine Urobilinogen 2.0 (<2.0) mg/dL Ur Leukocyte Esterase Negative (Negative) Disposition <Sabino De La Fuente - Last Filed: 10/08/18 06:29> Is patient prescribed a controlled substance at d/c from ED?: No Time of Disposition: 09:00 <Chai Agrawal - Last Filed: 10/08/18 09:01> Clinical Impression: Abdominal hernia Disposition: HOME SELF-CARE Condition: Stable Instructions (If sedation given, give patient instructions): Ventral Hernia (ED) Additional Instructions: Please follow-up with both Dr. Aburto and Dr. Dickens in the next couple of days for recheck. Return for unable to reduce hernia, increased pain, hardness, vomiting, fever, worsening symptoms or other concerns. Please do also follow-up with primary care physician. Referrals: James Meza Jr, DO [Primary Care Provider] - 1-2 days Bernie Huff MD [STAFF PHYSICIAN] - 1-2 days Alexx Van MD [Medical Doctor] - 1-2 days
[2018-10-08 06:34] LABS: ALT 17 U/L (21-72); AST 42 U/L (17-59); Albumin 2.9 g/dL (3.5-5.0); Alkaline Phosphatase 116 U/L (38-126); Amylase 41 U/L (30-110); Anion Gap 6 mmol/L; Blood Urea Nitrogen 6 mg/dL (9-20); Calcium 8.9 mg/dL (8.4-10.2); Carbon Dioxide 20 mmol/L (22-30); Chloride 112 mmol/L (98-107); Glucose 104 mg/dL (74-99); Lipase 145 U/L (23-300); Potassium 4.1 mmol/L (3.5-5.1); Sodium 138 mmol/L (137-145); Total Bilirubin 1.3 mg/dL (0.2-1.3); Total Protein 6.2 g/dL (6.3-8.2)
[2018-10-08 06:39] LABS: Appearance,Urine Clear (Clear); Color,Urine Yellow; Protein,Urine Negative (Negative); Specific Gravity,Urine 1.006 (1.001-1.035)
[2018-10-08 06:40] LABS: Bilirubin,Urine Negative (Negative); Blood,Urine Negative (Negative); Glucose,Urine (UA) Negative (Negative); Ketones,Urine Negative (Negative); Leukocyte Esterase,Urine Negative (Negative); Nitrite,Urine Negative (Negative)
--- NOTE | 2018-10-08 08:24 | CT ---
EXAMINATION TYPE: CT abdomen pelvis w con DATE OF EXAM: 10/08/2018 COMPARISON: 09/03/2018 INDICATION: Mid Abdominal pain DLP: 927.8 mGycm, Automated exposure control for dose reduction was used. CONTRAST: 100 mL of Isovue 300. Study performed without Oral Contrast TECHNIQUE: Axial images were obtained from above the diaphragm to the pubic rami in the axial plane a t 5 mm thick sections. Reconstructed images are reviewed on the computer in the coronal plane. FINDINGS: Limited CT sections are obtained the lung bases. Mild atelectasis is present in the bilateral lung b ases.. CT ABDOMEN: Ascites is present adjacent to the liver and spleen. Fluid is within the paracolic gutter s and in the pelvis. Liver: Tiny hypodensity is in the right lobe liver. This is new from 09/03/2018r centimeters 0.6 cm. N eoplasm should be considered. Hypodensity may be within the inferior right lobe liver. Spleen: Normal Pancreas: Normal Adrenal glands: The adrenal glands are normal. Gallbladder: Surgically absent Kidneys: No masses are evident. No hydronephrosis is present. No cysts are present. There is a 0.4 cm calcification superior pole left kidney. A 0.4 cm calcifications in the mid left kidney. A 0.4 cm calcifications in the mid to inferior pole left kidney. 2 punctate calcifications, larger measuring 0.3 cm at the inferior pole left kidney. No obstructing renal calculi are identified. Aorta: Vascular calcification is within the aorta. Inferior vena cava: Normal. CT PELVIS: Small amount fluid extends into a left inguinal hernia. There are some fluid-filled prominent small bowel loops in left upper quadrant of the abdomen. There is within the colon. Consider small bowel ileus. Appendix: Not identified. No suspicious dilated tubular structures or inflammatory changes are identi fied. Urinary bladder: Normal. Genitourinary structures: Prostate is unremarkable. Osseous structures: No suspicious lytic or sclerotic lesions. IMPRESSIONS: 1. Moderate ascites, similar to previous exam. 2. New hypodensity within the right lobe liver. Consider ultrasound or MRI for additional characteriz ation. 3. Mild bibasilar atelectasis. 4. Left nonobstructing renal stones. 4. Consider ileus within the differential.
[2018-10-08 09:38] VITALS: BP 114/64; PULSE 72; RESP 18
== END 2018-10-08 09:36 | disposition home or self-care (01) ==
LOC: EC 05:57
DX: K42.9 Umbilical hernia without obstruction or gangrene (principal); R18.8 Other ascites; N20.0 Calculus of kidney; J45.909 Unspecified asthma, uncomplicated; F17.200 Nicotine dependence, unspecified, uncomplicated; Z79.899 Other long term (current) drug therapy; Z90.89 Acquired absence of other organs; Z90.49 Acquired absence of other specified parts of digestive tract
CPT/HCPCS: 36415; 80053; 82150; 83605; 83690; 85025; 81003; 74177; 99284; 96374; J1170; Q9967

== ENCOUNTER 2018-11-20 17:41 | Inpatient (IN) | payer OTHER ==
[2018-11-20] MEDS ORDERED: PANTOPRAZOLE 40 MG/10 ML VIAL IVP ONE (18:20)
[2018-11-20] MEDS ORDERED: ONDANSETRON 4 MG/2 ML VIAL IVP STA (18:22)
[2018-11-20] MEDS ORDERED: SODIUM CHLORIDE 0.9% 2,000 ML IV ONE (18:25)
--- NOTE | 2018-11-20 18:27 | ED ---
GI Bleed HPI - General Chief complaint: GI Bleed Stated complaint: VOMITING BLOOD, BLOOD IN STOOL Time Seen by Provider: 11/20/18 18:11 Source: patient Mode of arrival: ambulatory Limitations: no limitations - History of Present Illness Initial comments: Patient is a 43-year-old male with a history of chronic alcohol abuse, liver cirrhosis, and GI bleeding in the past presents with a chief complaint of hematemesis, and melena. Patient states it is been going on for about a day. He states his last drink was 10:00 last night. Patient states that he has a history of GI bleeding and a recent procedure performed by Dr. Dickens. Patient states that he has been nauseated, throwing up coffee-ground emesis, has had dark stools, admits to lightheadedness and dizziness. - Related Data Home Medications Medication Instructions Recorded Confirmed Folic Acid 1 mg PO DAILY@1200 09/01/17 11/20/18 oxyCODONE HCL [Roxicodone] 5 mg PO Q46H PRN 10/08/18 11/20/18 Previous Rx's Medication Instructions Recorded Multivitamins, Thera [Multivitamin 1 tab PO DAILY #30 tablet 09/03/17 (formulary)] Thiamine [Vitamin B-1] 100 mg PO DAILY #30 tablet 09/03/17 Allergies Allergy/AdvReac Type Severity Reaction Status Date / Time No Known Allergies Allergy Verified 11/20/18 18:49 Review of Systems ROS Statement: Those systems with pertinent positive or pertinent negative responses have been documented in the HPI. ROS Other: All systems not noted in ROS Statement are negative. Respiratory: Reports: dyspnea Gastrointestinal: Reports: abdominal pain, nausea, vomiting, hematemesis, melena Past Medical History Past Medical History: Asthma, GI Bleed, Liver Disease, Pneumonia Additional Past Medical History / Comment(s): ETOH abuse, liver cirrhosis, abdominal ascites, pancreatitis, multiple gallstones, nephrolithiasis, chronic anemia, esophageal varices, hx urinating blood and kidneys stone History of Any Multi-Drug Resistant Organisms: MRSA Date of last positivie culture/infection: 12/09/2013 MDRO Source:: Right first finger Past Surgical History: Appendectomy, Cholecystectomy, Orthopedic Surgery Additional Past Surgical History / Comment(s): 07/09/17 EGD/colonoscopy, paracentesis, right hand tendon repair, right knee arthroscopy, cystoscopy for kidney stone removal, right hand ring finger surgery. Past Anesthesia/Blood Transfusion Reactions: Previous Problems w/ Anesthesia Additional Past Anesthesia/Blood Transfusion Reaction / Comment(s): Woke up during scope procedure. Past Psychological History: PTSD Smoking Status: Current every day smoker Past Alcohol Use History: Abuse, Daily Past Drug Use History: Marijuana - Past Family History Mother Family Medical History: Hypertension Father Additional Family Medical History / Comment(s): Prostate issues. Brain aneurysm. General Exam Limitations: no limitations General appearance: alert, in no apparent distress Head exam: Present: atraumatic, normocephalic Eye exam: Present: normal appearance ENT exam: Present: other (Mucous membranes appear pale) Neck exam: Present: normal inspection Respiratory exam: Present: normal lung sounds bilaterally. Absent: respiratory distress, wheezes Cardiovascular Exam: Present: normal rhythm, tachycardia GI/Abdominal exam: Present: distended, tenderness. Absent: guarding, rebound Rectal exam: Present: normal inspection, black stool Extremities exam: Present: normal inspection Back exam: Present: normal inspection Neurological exam: Present: alert, oriented X3 Psychiatric exam: Present: normal affect, normal mood Skin exam: Present: warm, dry, intact, pallor Course Vital Signs 11/20/18 18:05 Temperature 98.3 F Pulse Rate 105 H Respiratory 18 Rate Blood Pressure 133/80 O2 Sat by Pulse 100 Oximetry Medical Decision Making - Medical Decision Making Presents with a chief complaint of hematemesis and melena. On initial evaluation, vital signs show tachycardia but otherwise stable. Patient appears pale. Stool is dark on digital rectal exam. Patient to be evaluated basic labs including type and screen, lactic acid, ammonia, and occult stool. He'll be sent for computed tomography scan of the abdomen and pelvis. Patient given 80 mg of Protonix. Zofran and IV fluids given. 7:49 PM Laboratory evaluation this patient is remarkable for stable anemia with a hemoglobin of 8.1 which is minimally changed from previous hemoglobin on 10/08 of 8.7. Lactic acid is 2.4. Occult stool was positive. Computed tomography scan of the abdomen and pelvis shows liver cirrhosis without other acute pathology. Case discussed with Dr. Fox who accepts admission. We'll place GI on c onsult. - Lab Data Result diagrams: 11/20/18 19:05 11/20/18 19:05 Lab Results 11/20/18 11/20/18 11/20/18 Range/Units 18:35 19:05 19:05 WBC 6.8 (3.8-10.6) k/uL RBC 3.29 L (4.30-5.90) m/uL Hgb 8.1 L (13.0-17.5) gm/dL Hct 27.0 L (39.0-53.0) % MCV 82.3 (80.0-100.0) fL MCH 24.7 L (25.0-35.0) pg MCHC 30.0 L (31.0-37.0) g/dL RDW 20.7 H (11.5-15.5) % Plt Count 155 (150-450) k/uL Neutrophils % 68 % Lymphocytes % 14 % Monocytes % 11 % Eosinophils % 2 % Basophils % 1 % Neutrophils # 4.6 (1.3-7.7) k/uL Lymphocytes # 1.0 (1.0-4.8) k/uL Monocytes # 0.7 (0-1.0) k/uL Eosinophils # 0.1 (0-0.7) k/uL Basophils # 0.1 (0-0.2) k/uL Hypochromasia Marked Poikilocytosis Slight Anisocytosis Moderate Microcytosis Slight Sodium (137-145) mmol/L Potassium (3.5-5.1) mmol/L Chloride (98-107) mmol/L Carbon Dioxide (22-30) mmol/L Anion Gap mmol/L BUN (9-20) mg/dL Creatinine (0.66-1.25) mg/dL Est GFR (CKD-EPI)AfAm (>60 ml/min/1.73 sqM) Est GFR (CKD-EPI)NonAf (>60 ml/min/1.73 sqM) Glucose (74-99) mg/dL Plasma Lactic Acid Balaji (0.7-2.0) mmol/L Calcium (8.4-10.2) mg/dL Total Bilirubin (0.2-1.3) mg/dL AST (17-59) U/L ALT (21-72) U/L Alkaline Phosphatase (38-126) U/L Ammonia (<30) umol/L Troponin I (0.000-0.034) ng/mL NT-Pro-B Natriuret Pep pg/mL Total Protein (6.3-8.2) g/dL Albumin (3.5-5.0) g/dL Lipase (23-300) U/L Stool Occult Blood Positive (Negative) Blood Type A Negative Blood Type Recheck No Antibody Screen NEGATIVE Spec Expiration Date 11/23/2018230411/20/18 11/20/18 11/20/18 Range/Units 19:05 19:05 19:05 WBC (3.8-10.6) k/uL RBC (4.30-5.90) m/uL Hgb (13.0-17.5) gm/dL Hct (39.0-53.0) % MCV (80.0-100.0) fL MCH (25.0-35.0) pg MCHC (31.0-37.0) g/dL RDW (11.5-15.5) % Plt Count (150-450) k/uL Neutrophils % % Lymphocytes % % Monocytes % % Eosinophils % % Basophils % % Neutrophils # (1.3-7.7) k/uL Lymphocytes # (1.0-4.8) k/uL Monocytes # (0-1.0) k/uL Eosinophils # (0-0.7) k/uL Basophils # (0-0.2) k/uL Hypochromasia Poikilocytosis Anisocytosis Microcytosis Sodium 145 (137-145) mmol/L Potassium 3.7 (3.5-5.1) mmol/L Chloride 112 H (98-107) mmol/L Carbon Dioxide 21 L (22-30) mmol/L Anion Gap 12 mmol/L BUN 19 (9-20) mg/dL Creatinine 0.50 L (0.66-1.25) mg/dL Est GFR (CKD-EPI)AfAm >90 (>60 ml/min/1.73 sqM) Est GFR (CKD-EPI)NonAf >90 (>60 ml/min/1.73 sqM) Glucose 125 H (74-99) mg/dL Plasma Lactic Acid Balaji (0.7-2.0) mmol/L Calcium 9.8 (8.4-10.2) mg/dL Total Bilirubin 2.3 H (0.2-1.3) mg/dL AST 64 H (17-59) U/L ALT 26 (21-72) U/L Alkaline Phosphatase 102 (38-126) U/L Ammonia (<30) umol/L Troponin I <0.012 (0.000-0.034) ng/mL NT-Pro-B Natriuret Pep 45 pg/mL Total Protein 7.2 (6.3-8.2) g/dL Albumin 3.7 (3.5-5.0) g/dL Lipase 167 (23-300) U/L Stool Occult Blood (Negative) Blood Type Blood Type Recheck Antibody Screen Spec Expiration Date 11/20/18 Range/Units 19:05 WBC (3.8-10.6) k/uL RBC (4.30-5.90) m/uL Hgb (13.0-17.5) gm/dL Hct (39.0-53.0) % MCV (80.0-100.0) fL MCH (25.0-35.0) pg MCHC (31.0-37.0) g/dL RDW (11.5-15.5) % Plt Count (150-450) k/uL Neutrophils % % Lymphocytes % % Monocytes % % Eosinophils % % Basophils % % Neutrophils # (1.3-7.7) k/uL Lymphocytes # (1.0-4.8) k/uL Monocytes # (0-1.0) k/uL Eosinophils # (0-0.7) k/uL Basophils # (0-0.2) k/uL Hypochromasia Poikilocytosis Anisocytosis Microcytosis Sodium (137-145) mmol/L Potassium (3.5-5.1) mmol/L Chloride (98-107) mmol/L Carbon Dioxide (22-30) mmol/L Anion Gap mmol/L BUN (9-20) mg/dL Creatinine (0.66-1.25) mg/dL Est GFR (CKD-EPI)AfAm (>60 ml/min/1.73 sqM) Est GFR (CKD-EPI)NonAf (>60 ml/min/1.73 sqM) Glucose (74-99) mg/dL Plasma Lactic Acid Balaji 2.4 H* (0.7-2.0) mmol/L Calcium (8.4-10.2) mg/dL Total Bilirubin (0.2-1.3) mg/dL AST (17-59) U/L ALT (21-72) U/L Alkaline Phosphatase (38-126) U/L Ammonia 47 H (<30) umol/L Troponin I (0.000-0.034) ng/mL NT-Pro-B Natriuret Pep pg/mL Total Protein (6.3-8.2) g/dL Albumin (3.5-5.0) g/dL Lipase (23-300) U/L Stool Occult Blood (Negative) Blood Type Blood Type Recheck Antibody Screen Spec Expiration Date Disposition Clinical Impression: Anemia, GI bleeding, Cirrhosis Disposition: ADMITTED IP TO THIS [facility] Condition: Fair Is patient prescribed a controlled substance at d/c from ED?: No Referrals: James Meza Jr, [Primary Care Provider] - 1-2 days Decision to Admit Reason: Admit from EC - Out of Hospital Transfer - Req. Specs Out of Hospital Transfer - Requested Specifics: Telemetry Unit
[2018-11-20 19:21] LABS: Anisocytosis Moderate; Basophils # (A) 0.1 k/uL (0-0.2); Basophils % (A) 1 %; Eosinophils # (A) 0.1 k/uL (0-0.7); Eosinophils % (A) 2 %; HGB 8.1 gm/dL (13.0-17.5); Hypochromasia Marked; Lymphocytes % (A) 14 %; MCH 24.7 pg (25.0-35.0); MCV 82.3 fL (80.0-100.0); Mean Platelet Volume 7.9; Microcytosis Slight; Monocytes # (A) 0.7 k/uL (0-1.0); Monocytes % (A) 11 %; Neutrophils # (A) 4.6 k/uL (1.3-7.7); Neutrophils % (A) 68 %; Platelet Count 155 k/uL (150-450); Poikilocytosis Slight; RBC 3.29 m/uL (4.30-5.90); RDW 20.7 % (11.5-15.5); WBC 6.8 k/uL (3.8-10.6)
[2018-11-20 19:32] LABS: ALT 26 U/L (21-72); AST 64 U/L (17-59); African American GFR (CKD) >90 (>60 ml/min/1.73 sqM); Albumin 3.7 g/dL (3.5-5.0); Alkaline Phosphatase 102 U/L (38-126); Anion Gap 12 mmol/L; Blood Urea Nitrogen 19 mg/dL (9-20); Calcium 9.8 mg/dL (8.4-10.2); Carbon Dioxide 21 mmol/L (22-30); Chloride 112 mmol/L (98-107); Glucose 125 mg/dL (74-99); Lipase 167 U/L (23-300); Potassium 3.7 mmol/L (3.5-5.1); Sodium 145 mmol/L (137-145); Total Bilirubin 2.3 mg/dL (0.2-1.3); Total Protein 7.2 g/dL (6.3-8.2)
--- NOTE | 2018-11-20 19:38 | CT ---
EXAMINATION TYPE: CT abdomen pelvis w con DATE OF EXAM: 11/20/2018 COMPARISON: 10/08/2018 HISTORY: abdominal pain, blood in stool CT DLP: 930.2 mGycm Automated exposure control for dose reduction was used. TECHNIQUE: Helical acquisition of images was performed from the lung bases through the pelvis. CONTRAST: Performed without Oral Contrast and with IV Contrast, patient injected with 100 mL of Isovue 300. FINDINGS: There is no pleural effusion. There is extensive decreased attenuation throughout the liver. There is abdominal ascites. Spleen is enlarged and measures 15.5 cm. There is no evidence of a pancreatic mas s. There are clips from cholecystectomy. Stomach is large. There is no adrenal mass. Kidneys show satisfactory contrast opacification. There is no hydronephrosi s. Ureters are not dilated. There are multiple bilateral small renal calculi measuring up to 3 mm. Th ere is no retroperitoneal adenopathy. There is no sign of a bowel obstruction. There is no evidence o f free air. There is left inguinal hernia contains ascites fluid. Bladder distends smoothly. There is no sign of free air. There is no definite mesenteric edema. There are numerous varicose veins at the spleen and gastroesophageal junction. There is contrast opacification of the splenic and superior me senteric veins. There is no evidence of portal vein thrombosis. IMPRESSION: EXTENSIVE DECREASED DENSITY IN THE LIVER CONSISTENT WITH HEPATITIS AND EDEMA THAT IS A CHANGE COMPARE D TO LAST EXAM. IRREGULAR LIVER MARGIN CONSISTENT WITH CIRRHOSIS. SPLENOMEGALY. DILATED SPLENIC AND ESOPHAGEAL VEINS CONSISTENT WITH PORTAL VENOUS HYPERTENSION. MODERATE ABDOMINAL A SCITES.
[2018-11-20 19:45] LABS: Lactic Acid, Venous 2.4 mmol/L (0.7-2.0)
[2018-11-20 20:17] LABS: INR 1.7 (<1.2); Prothrombin Time 16.5 sec (9.0-12.0)
[2018-11-20] MEDS ORDERED: NALOXONE 0.4 MG/ML 1 ML VIAL IV PRN (20:18)
[2018-11-20] MEDS ORDERED: ONDANSETRON 4 MG/2 ML VIAL IVP PRN (20:18)
[2018-11-20] MEDS: MORPHINE SULFATE 4 MG/ML SYRINGE IV PRN (20:38)
[2018-11-20] MEDS: SODIUM CHLORIDE 0.9% 1,000 ML IV SCH (20:40)
[2018-11-20 21:36] LABS: Anisocytosis Slight; Basophils # (A) 0.1 k/uL (0-0.2); Basophils % (A) 1 %; Eosinophils # (A) 0.2 k/uL (0-0.7); Eosinophils % (A) 3 %; HCT 21.6 % (39.0-53.0); Hypochromasia Marked; Lymphocytes % (A) 15 %; MCH 25.8 pg (25.0-35.0); MCHC 31.5 g/dL (31.0-37.0); Mean Platelet Volume 8.5; Microcytosis Slight; Monocytes # (A) 0.7 k/uL (0-1.0); Monocytes % (A) 11 %; Neutrophils # (A) 4.3 k/uL (1.3-7.7); Neutrophils % (A) 68 %; Platelet Count 123 k/uL (150-450); Poikilocytosis Slight; RBC 2.63 m/uL (4.30-5.90); RDW 19.7 % (11.5-15.5); WBC 6.4 k/uL (3.8-10.6)
[2018-11-20 21:44] LABS: ALT 29 U/L (21-72); AST 63 U/L (17-59); African American GFR (CKD) >90 (>60 ml/min/1.73 sqM); Alkaline Phosphatase 78 U/L (38-126); Anion Gap 8 mmol/L; Blood Urea Nitrogen 18 mg/dL (9-20); Calcium 8.7 mg/dL (8.4-10.2); Carbon Dioxide 19 mmol/L (22-30); Chloride 116 mmol/L (98-107); Glucose 103 mg/dL (74-99); Potassium 3.7 mmol/L (3.5-5.1); Sodium 143 mmol/L (137-145); Total Bilirubin 2.2 mg/dL (0.2-1.3); Total Protein 6.2 g/dL (6.3-8.2)
[2018-11-20 21:50] LABS: HGB 6.8 gm/dL (13.0-17.5)
[2018-11-20] MEDS ORDERED: LORazepam 2 MG/ML INJ IV PRN ×2 (22:35)
[2018-11-20 23:18] VITALS: BMI 23.0
[2018-11-21] MEDS: OCTREOTIDE 100 MCG/ML INJ IVP SCH ×3 (00:26→17:04)
[2018-11-21 02:50] LABS: Anisocytosis Moderate; Basophils # (A) 0.1 k/uL (0-0.2); Basophils % (A) 1 %; Eosinophils # (A) 0.3 k/uL (0-0.7); Eosinophils % (A) 5 %; HCT 22.7 % (39.0-53.0); Hypochromasia Marked; Lymphocytes % (A) 16 %; MCH 24.2 pg (25.0-35.0); MCHC 28.8 g/dL (31.0-37.0); MCV 84.2 fL (80.0-100.0); Mean Platelet Volume 7.7; Microcytosis Slight; Monocytes # (A) 0.7 k/uL (0-1.0); Monocytes % (A) 12 %; Neutrophils # (A) 3.8 k/uL (1.3-7.7); Neutrophils % (A) 62 %; Platelet Count 123 k/uL (150-450); RDW 20.8 % (11.5-15.5); WBC 6.1 k/uL (3.8-10.6)
[2018-11-21 02:52] LABS: HGB 6.6 gm/dL (13.0-17.5)
[2018-11-21] MEDS: MORPHINE SULFATE 4 MG/ML SYRINGE IV PRN ×2 (05:24→17:03)
[2018-11-21] MEDS: THIAMINE 100 MG TAB PO SCH ×2 (09:24→17:06)
[2018-11-21] MEDS: PANTOPRAZOLE 40 MG/10 ML VIAL IV SCH (09:25)
[2018-11-21 10:58] LABS: Anisocytosis Slight; Basophils # (A) 0.1 k/uL (0-0.2); Basophils % (A) 1 %; Eosinophils # (A) 0.5 k/uL (0-0.7); Eosinophils % (A) 8 %; HCT 26.8 % (39.0-53.0); HGB 7.8 gm/dL (13.0-17.5); Hypochromasia Marked; Lymphocytes # (A) 1.1 k/uL (1.0-4.8); Lymphocytes % (A) 18 %; MCH 25.2 pg (25.0-35.0); MCHC 29.3 g/dL (31.0-37.0); MCV 86.3 fL (80.0-100.0); Mean Platelet Volume 7.9; Monocytes # (A) 0.6 k/uL (0-1.0); Monocytes % (A) 9 %; Neutrophils # (A) 3.7 k/uL (1.3-7.7); Neutrophils % (A) 60 %; Platelet Count 145 k/uL (150-450); Poikilocytosis Slight; RBC 3.11 m/uL (4.30-5.90); RDW 19.9 % (11.5-15.5); WBC 6.1 k/uL (3.8-10.6)
[2018-11-21 11:14] LABS: African American GFR (CKD) >90 (>60 ml/min/1.73 sqM); Anion Gap 6 mmol/L; Blood Urea Nitrogen 17 mg/dL (9-20); Calcium 8.7 mg/dL (8.4-10.2); Carbon Dioxide 21 mmol/L (22-30); Chloride 117 mmol/L (98-107); Glucose 100 mg/dL (74-99); Magnesium 1.6 mg/dL (1.6-2.3); Potassium 3.6 mmol/L (3.5-5.1); Sodium 144 mmol/L (137-145)
[2018-11-21 12:01] VITALS: RESP 18
[2018-11-21] MEDS: SODIUM CHLORIDE 0.9% 1,000 ML IV SCH ×2 (12:24→17:06)
--- NOTE | 2018-11-21 12:33 | P.CONS ---
History of Present Illness - Reason for Consult Consult date: 11/21/18 GI bleed Requesting physician: Aristeo Fox - Chief Complaint Hematemesis - History of Present Illness 43-year-old male with a history of chronic alcoholism and medical noncompliance admitted with hematemesis. Past medical history of alcohol liver cirrhosis esophageal varices portal hypertensive gastropathy ascites hepatic encephalopathy and previous admissions for GI bleeds. Patient was seen in September 2018 secondary to acute hematemesis. He underwent EGD colonoscopy evaluation August 2018 with evidence of esophageal varices banding 4. Colonoscopy was aborted due to poor prep internal hemorrhoids were seen. Admission hemoglobin 8.1 today 6.6. MCV 84. Platelet 123. INR 1.7. FOBT positive. BUN 19. Creatinine 0.9. Total bilirubin 2.3. AST 64. ALT 26. AP 102. Blood transfusion [address] abdomen findings consistent with cirrhosis splenomegaly. Dilated splenic and esophageal veins consistent with portal venous hypertension and moderate abdominal ascites. Patient is drinking alcohol over the weekend. No reports of hematemesis hematochezia melena today. Requesting diet. Review of Systems Constitutional: Denies fever, chills, sweats, weight gain, or loss. HEENT: Negative for migraines, blurred vision or loss, earaches, drainage, tinnitus, oral mucosal lesions, dysphagia, or odynophagia. Cardiac: Negative for chest pain, arrhythmias, or palpitation. Respiratory: Negative for shortness of breath, hemoptysis, cough, or sputum production. Gastrointestinal: See HPI for pertinent findings. Genitourinary: Negative for hematuria, urgency, frequency, polyuria, dysuria, or penile discharge. Musculoskeletal: Negative for muscle aches, swelling, arthritis, and arthralgias. Neurologic: Negative for stroke or TIA. Endocrine: Negative for thyroid problems. Skin: Negative for rash or itching. Psychiatric: Negative history for depression and anxiety Past Medical History Past Medical History: Asthma, GI Bleed, Liver Disease, Pneumonia Additional Past Medical History / Comment(s): ETOH abuse, liver cirrhosis, abdominal ascites, pancreatitis, multiple gallstones, nephrolithiasis, chronic anemia, esophageal varices, hx urinating blood and kidneys stone History of Any Multi-Drug Resistant Organisms: MRSA Year Discovered:: 12/09/2013 MDRO Source:: Right first finger Past Surgical History: Appendectomy, Cholecystectomy, Orthopedic Surgery Additional Past Surgical History / Comment(s): 07/09/17 EGD/colonoscopy, paracentesis, right hand tendon repair, right knee arthroscopy, cystoscopy for kidney stone removal, right hand ring finger surgery. blood transfusions. Past Anesthesia/Blood Transfusion Reactions: Previous Problems w/ Anesthesia Additional Past Anesthesia/Blood Transfusion Reaction / Comm: Woke up during scope procedure. Past Psychological History: PTSD Additional Psychological History / Comment(s): PT currently resides with his friend Donny. active alcohol use. No current recreational drug use. No current injection drug use. Nonemployed. and complains about that situation Smoking Status: Current every day smoker Past Alcohol Use History: Abuse, Daily Additional Past Alcohol Use History / Comment(s): Pt states he started smoking in 1983 and is a half pack day smoker. PT states reduced the amount of alcohol to a few days a week, drinking 5 12oz cans of beer on those occasions. Pt states used to drink a fifth or 1/2 gallon and some beers daily. Past Drug Use History: Marijuana Additional Drug Use History / Comment(s): Pt states he smokes marijuana on occasion. No other drug use. - Past Family History Mother Family Medical History: Hypertension Father Additional Family Medical History / Comment(s): Prostate issues. Brain aneurysm. Medications and Allergies Home Medications Medication Instructions Recorded Confirmed Type Folic Acid 1 mg PO DAILY@1200 09/01/17 11/20/18 History Multivitamins, Thera [Multivitamin 1 tab PO DAILY #30 tablet 09/03/17 11/20/18 Rx (formulary)] Thiamine [Vitamin B-1] 100 mg PO DAILY #30 tablet 09/03/17 11/20/18 Rx oxyCODONE HCL [Roxicodone] 5 mg PO Q8H PRN 10/08/18 11/20/18 History Allergies Allergy/AdvReac Type Severity Reaction Status Date / Time No Known Allergies Allergy Verified 11/20/18 18:49 Physical Exam Vitals: Vital Signs Temp Pulse Pulse Pulse Resp BP BP 11/21/18 09:27 98.7 F 76 16 120/64 11/21/18 08:00 60 16 11/21/18 07:00 98.3 F 60 18 156/73 11/21/18 06:29 98.1 F 89 18 155/77 11/21/18 05:59 98.5 F 83 16 133/70 11/21/18 05:49 98.4 F 82 16 129/64 11/21/18 04:47 91 18 11/21/18 04:45 98.4 F 91 18 129/60 11/21/18 03:10 98.7 F 82 18 118/78 11/20/18 22:02 98.2 F 94 18 133/77 11/20/18 21:00 99 14 140/75 11/20/18 20:30 84 17 138/61 11/20/18 20:21 16 11/20/18 20:00 14 131/64 11/20/18 19:00 86 16 135/70 11/20/18 18:50 135/70 11/20/18 18:05 98.3 F 105 H 18 133/80 Pulse Ox 11/21/18 09:27 97 11/21/18 08:00 11/21/18 07:00 100 11/21/18 06:29 95 11/21/18 05:59 94 L 11/21/18 05:49 93 L 11/21/18 04:47 11/21/18 04:45 99 11/21/18 03:10 98 11/20/18 22:02 98 11/20/18 21:00 11/20/18 20:30 11/20/18 20:21 11/20/18 20:00 11/20/18 19:00 11/20/18 18:50 11/20/18 18:05 100 Intake and Output 11/20/18 11/21/18 11/21/18 22:59 06:59 14:59 Intake Total 0 310 Output Total 500 Balance -500 310 Intake: Blood Product 0 310 Rc As-1 Unit 0 310 [id number] Output: Urine 500 Other: Voiding Method Urinal Urinal # Voids 0 Weight 87.09 kg 78 kg General appearance: The patient is alert, oriented, in no acute distress. HET: Head is normocephalic and atraumatic. Pupils are equal and reactive. Oropharynx is clear without lesions. Neck: Supple without lymphadenopathy. Trachea midline. Heart: S1 S2. Regular rate and rhythm. Lungs: No crackles or wheezes are heard. Abdomen: Soft, nontender, nondistended with bowel sounds. No peritoneal signs. No palpable organomegaly or masses. Extremities: Normal skin color and turgor. No cyanosis, rash, ulceration, clubbing, or edema. Radial and pedal pulses are 2/4 bilaterally. Neurological: No focal deficits. Strength and sensation are grossly intact. Results CBC & Chem 7: 11/21/18 10:45 11/21/18 10:45 Labs: Abnormal Lab Results - Last 24 Hours (Table) 11/20/18 11/20/18 11/20/18 Range/Units 19:05 19:05 19:05 RBC 3.29 L (4.30-5.90) m/uL Hgb 8.1 L (13.0-17.5) gm/dL Hct 27.0 L (39.0-53.0) % MCH 24.7 L (25.0-35.0) pg MCHC 30.0 L (31.0-37.0) g/dL RDW 20.7 H (11.5-15.5) % Plt Count (150-450) k/uL PT (9.0-12.0) sec INR (<1.2) Chloride 112 H (98-107) mmol/L Carbon Dioxide 21 L (22-30) mmol/L Creatinine 0.50 L (0.66-1.25) mg/dL Glucose 125 H (74-99) mg/dL Plasma Lactic Acid Balaji (0.7-2.0) mmol/L Total Bilirubin 2.3 H (0.2-1.3) mg/dL AST 64 H (17-59) U/L Ammonia (<30) umol/L Total Protein (6.3-8.2) g/dL Albumin (3.5-5.0) g/dL Crossmatch See Detail 11/20/18 11/20/18 11/20/18 Range/Units 19:05 19:05 21:27 RBC 2.63 L (4.30-5.90) m/uL Hgb 6.8 L* (13.0-17.5) gm/dL Hct 21.6 L (39.0-53.0) % MCH (25.0-35.0) pg MCHC (31.0-37.0) g/dL RDW 19.7 H (11.5-15.5) % Plt Count 123 L (150-450) k/uL PT 16.5 H (9.0-12.0) sec INR 1.7 H (<1.2) Chloride (98-107) mmol/L Carbon Dioxide (22-30) mmol/L Creatinine (0.66-1.25) mg/dL Glucose (74-99) mg/dL Plasma Lactic Acid Balaji 2.4 H* (0.7-2.0) mmol/L Total Bilirubin (0.2-1.3) mg/dL AST (17-59) U/L Ammonia 47 H (<30) umol/L Total Protein (6.3-8.2) g/dL Albumin (3.5-5.0) g/dL Crossmatch 11/20/18 11/21/18 Range/Units 21:27 02:16 RBC 2.70 L (4.30-5.90) m/uL Hgb 6.6 L* (13.0-17.5) gm/dL Hct 22.7 L (39.0-53.0) % MCH 24.2 L (25.0-35.0) pg MCHC 28.8 L (31.0-37.0) g/dL RDW 20.8 H (11.5-15.5) % Plt Count 123 L (150-450) k/uL PT (9.0-12.0) sec INR (<1.2) Chloride 116 H (98-107) mmol/L Carbon Dioxide 19 L (22-30) mmol/L Creatinine 0.45 L (0.66-1.25) mg/dL Glucose 103 H (74-99) mg/dL Plasma Lactic Acid Balaji (0.7-2.0) mmol/L Total Bilirubin 2.2 H (0.2-1.3) mg/dL AST 63 H (17-59) U/L Ammonia (<30) umol/L Total Protein 6.2 L (6.3-8.2) g/dL Albumin 3.0 L (3.5-5.0) g/dL Crossmatch CT scan - abdomen: report reviewed (Dr. Huff) Assessment and Plan (1) Hematemesis Narrative/Plan: 43-year-old male with a history of underlying alcohol liver disease cirrhosis portal hypertensive gastropathy esophageal varices chronic alcoholism admitted with acute hematemesis. Current Visit: Yes Status: Acute Code(s): K92.0 - HEMATEMESIS SNOMED Code(s): 3292519 (2) Ascites Current Visit: Yes Status: Acute Code(s): R18.8 - OTHER ASCITES SNOMED Code(s): 888188811 (3) Portal hypertensive gastropathy Current Visit: Yes Status: Acute Code(s): K76.6 - PORTAL HYPERTENSION; K31.89 - OTHER DISEASES OF STOMACH AND DUODENUM SNOMED Code(s): 602784047 (4) Chronic alcoholism Current Visit: Yes Status: Acute Code(s): F10.20 - ALCOHOL DEPENDENCE, UNCOMPLICATED SNOMED Code(s): 5130769 (5) Esophageal varices Current Visit: Yes Status: Acute Code(s): I85.00 - ESOPHAGEAL VARICES WITHOUT BLEEDING SNOMED Code(s): 08910102 (6) Cirrhosis Current Visit: Yes Status: Acute Code(s): K74.60 - UNSPECIFIED CIRRHOSIS OF LIVER SNOMED Code(s): 52355534 (7) Acute blood loss anemia Current Visit: Yes Status: Acute Code(s): D62 - ACUTE POSTHEMORRHAGIC ANEMIA SNOMED Code(s): 516702673 (8) Coagulopathy Current Visit: Yes Status: Acute Code(s): D68.9 - COAGULATION DEFECT, UNSPECIFIED SNOMED Code(s): 78500177 Plan: 1. Nothing by mouth except meds. CBC every 6 hours. Daily CMP PT/INR. Blood transfusions as indicated keeping hemoglobin greater than 7. Rocephin 1 g every 24 SBP prophylaxis in the setting of hematemesis and a history of known esophageal varices. 2. Inpatient EGD contingent on clinical course. Protonix 40 mg twice daily. Thank you for this kind referral and the opportunity to participate in the care of your patient. This consultation was discussed with Dr. Huff. The impression and plan of care have been directed as dictated.
--- NOTE | 2018-11-21 16:52 | P.HPIM ---
History of Present Illness H&P Date: 11/21/18 Chief Complaint: GI bleed This is a 43-year-old gentleman with history of esophageal varices, banding, portal hypertension ,ongoing alcohol abuse, liver cirrhosis, GI bleeds, n oncompliant with medication regimen and multiple other medical issues admitted with complaints of hemoptysis, melena accompanied by lightheadedness and dizziness 1 day. Most recent EGD/colonoscopy August 2018 reporting some esophageal varices, banding 4, colonoscopy aborted secondary to poor prep. Continued drinking alcohol over the holiday weekend. Hemoglobin 8.1, MCV 84, platelets 123, INR 1.7. on admission, lactic acid 2.4, positive stool for occult blood. T bili 1.[address] of abdomen and pelvis reporting extensive decreased density in the liver, liver cirrhosis, splenomegaly, dilated splenic and esophageal veins consistent with portal venous hypertension, moderate abdominal ascites. Received IV fluids, Protonix and Zofran in the ER. Denies any further lightheadedness, dizziness, hemoptysis, melena. Review of Systems .ROS Statement: Those systems with pertinent positive or pertinent negative responses have been documented in the HPI. ROS Other: All systems not noted in ROS Statement are negative. Past Medical History Past Medical History: Asthma, GI Bleed, Liver Disease, Pneumonia Additional Past Medical History / Comment(s): ETOH abuse, liver cirrhosis, abdominal ascites, pancreatitis, multiple gallstones, nephrolithiasis, chronic anemia, esophageal varices, hx urinating blood and kidneys stone History of Any Multi-Drug Resistant Organisms: MRSA Date of last positivie culture/infection: 12/09/2013 MDRO Source:: Right first finger Past Surgical History: Appendectomy, Cholecystectomy, Orthopedic Surgery Additional Past Surgical History / Comment(s): 07/09/17 EGD/colonoscopy, paracentesis, right hand tendon repair, right knee arthroscopy, cystoscopy for kidney stone removal, right hand ring finger surgery. blood transfusions. Past Anesthesia/Blood Transfusion Reactions: Previous Problems w/ Anesthesia Additional Past Anesthesia/Blood Transfusion Reaction / Comment(s): Woke up during scope procedure. Past Psychological History: PTSD Additional Psychological History / Comment(s): PT currently resides with his friend Donny. active alcohol use. No current recreational drug use. No current injection drug use. Nonemployed. and complains about that situation Smoking Status: Current every day smoker Past Alcohol Use History: Abuse, Daily Additional Past Alcohol Use History / Comment(s): Pt states he started smoking in 1983 and is a half pack day smoker. PT states reduced the amount of alcohol to a few days a week, drinking 5 12oz cans of beer on those occasions. Pt states used to drink a fifth or 1/2 gallon and some beers daily. Past Drug Use History: Marijuana Additional Drug Use History / Comment(s): Pt states he smokes marijuana on occasion. No other drug use. - Past Family History Mother Family Medical History: Hypertension Father Additional Family Medical History / Comment(s): Prostate issues. Brain aneurysm. Medications and Allergies Home Medications Medication Instructions Recorded Confirmed Type Folic Acid 1 mg PO DAILY@1200 09/01/17 11/20/18 History Multivitamins, Thera [Multivitamin 1 tab PO DAILY #30 tablet 09/03/17 11/20/18 Rx (formulary)] Thiamine [Vitamin B-1] 100 mg PO DAILY #30 tablet 09/03/17 11/20/18 Rx oxyCODONE HCL [Roxicodone] 5 mg PO Q8H PRN 10/08/18 11/20/18 History Allergies Allergy/AdvReac Type Severity Reaction Status Date / Time No Known Allergies Allergy Verified 11/20/18 18:49 Physical Exam Vitals: Vital Signs Temp Pulse Pulse Pulse Resp BP BP 11/21/18 15:25 82 18 11/21/18 15:22 98.4 F 82 18 128/71 11/21/18 12:00 83 18 11/21/18 11:59 98.2 F 83 18 126/65 11/21/18 09:27 98.7 F 76 16 120/64 11/21/18 08:00 60 16 11/21/18 07:00 98.3 F 60 18 156/73 11/21/18 06:29 98.1 F 89 18 155/77 11/21/18 05:59 98.5 F 83 16 133/70 11/21/18 05:49 98.4 F 82 16 129/64 11/21/18 04:47 91 18 11/21/18 04:45 98.4 F 91 18 129/60 11/21/18 03:10 98.7 F 82 18 118/78 11/20/18 22:02 98.2 F 94 18 133/77 11/20/18 21:00 99 14 140/75 11/20/18 20:30 84 17 138/61 11/20/18 20:21 16 11/20/18 20:00 14 131/64 11/20/18 19:00 86 16 135/70 11/20/18 18:50 135/70 11/20/18 18:05 98.3 F 105 H 18 133/80 Pulse Ox 11/21/18 15:25 11/21/18 15:22 100 11/21/18 12:00 11/21/18 11:59 99 11/21/18 09:27 97 11/21/18 08:00 11/21/18 07:00 100 11/21/18 06:29 95 11/21/18 05:59 94 L 11/21/18 05:49 93 L 11/21/18 04:47 11/21/18 04:45 99 11/21/18 03:10 98 11/20/18 22:02 98 11/20/18 21:00 11/20/18 20:30 11/20/18 20:21 11/20/18 20:00 11/20/18 19:00 11/20/18 18:50 11/20/18 18:05 100 Intake and Output 11/21/18 11/21/18 11/21/18 06:59 14:59 22:59 Intake Total 0 810 Output Total 500 600 Balance -500 210 Intake: IV 500 Sodium Chloride 0.9% 1, 450 000 ml @ 75 mls/hr IV . [id number] RAD[facility] Rx#:[id number] cefTRIAXone 1 gm In 50 Sodium Chloride 0.9% 50 ml @ 100 mls/hr IVPB Q24HR [facility] Rx#:[id number] Blood Product 0 310 Rc As-1 Unit 0 310 [id number] Output: Urine 500 600 Other: Voiding Method Urinal Urinal Urinal # Voids 0 Weight 78 kg General: [Patient sitting up in bed, awake, alert and oriented times 3. no acute distress. HEENT: [PERRL. EOMI. No pharyngeal erythema or exudate. Oral mucosa dry Neck: [Supple, No adenopathy.] Cardiac: [Heart regular in rate and rhythm. No S3. No S4. No clicks, rubs. No murmur.] Lungs: [Clear to auscultation bilaterally. No crackles, no wheezes Abdomen: [Soft, nontender, mildly distended,ascites .No mass palpable. No guarding. Bowel sounds presnt and normoactive in all 4 quadrants.] Extremities: [No edema no cyanosis no claudication normal pulses] Musculoskeletal: [No joint erythema, edema or tenderness.] Skin: [No rash, psoriasis-forearms Neurologic:CN II - XII grossly intact. No focal deficits. Results CBC & Chem 7: 11/21/18 10:45 11/21/18 10:45 Labs: Abnormal Lab Results - Last 24 Hours (Table) 11/20/18 11/20/18 11/20/18 Range/Units 19:05 19:05 19:05 RBC 3.29 L (4.30-5.90) m/uL Hgb 8.1 L (13.0-17.5) gm/dL Hct 27.0 L (39.0-53.0) % MCH 24.7 L (25.0-35.0) pg MCHC 30.0 L (31.0-37.0) g/dL RDW 20.7 H (11.5-15.5) % Plt Count (150-450) k/uL PT (9.0-12.0) sec INR (<1.2) Chloride 112 H (98-107) mmol/L Carbon Dioxide 21 L (22-30) mmol/L Creatinine 0.50 L (0.66-1.25) mg/dL Glucose 125 H (74-99) mg/dL Plasma Lactic Acid Balaji (0.7-2.0) mmol/L Total Bilirubin 2.3 H (0.2-1.3) mg/dL AST 64 H (17-59) U/L Ammonia (<30) umol/L Total Protein (6.3-8.2) g/dL Albumin (3.5-5.0) g/dL Crossmatch See Detail 11/20/18 11/20/18 11/20/18 Range/Units 19:05 19:05 21:27 RBC 2.63 L (4.30-5.90) m/uL Hgb 6.8 L* (13.0-17.5) gm/dL Hct 21.6 L (39.0-53.0) % MCH (25.0-35.0) pg MCHC (31.0-37.0) g/dL RDW 19.7 H (11.5-15.5) % Plt Count 123 L (150-450) k/uL PT 16.5 H (9.0-12.0) sec INR 1.7 H (<1.2) Chloride (98-107) mmol/L Carbon Dioxide (22-30) mmol/L Creatinine (0.66-1.25) mg/dL Glucose (74-99) mg/dL Plasma Lactic Acid Balaji 2.4 H* (0.7-2.0) mmol/L Total Bilirubin (0.2-1.3) mg/dL AST (17-59) U/L Ammonia 47 H (<30) umol/L Total Protein (6.3-8.2) g/dL Albumin (3.5-5.0) g/dL Crossmatch 11/20/18 11/21/18 11/21/18 Range/Units 21:27 02:16 10:45 RBC 2.70 L (4.30-5.90) m/uL Hgb 6.6 L* (13.0-17.5) gm/dL Hct 22.7 L (39.0-53.0) % MCH 24.2 L (25.0-35.0) pg MCHC 28.8 L (31.0-37.0) g/dL RDW 20.8 H (11.5-15.5) % Plt Count 123 L (150-450) k/uL PT (9.0-12.0) sec INR (<1.2) Chloride 116 H 117 H (98-107) mmol/L Carbon Dioxide 19 L 21 L (22-30) mmol/L Creatinine 0.45 L 0.57 L (0.66-1.25) mg/dL Glucose 103 H 100 H (74-99) mg/dL Plasma Lactic Acid Balaji (0.7-2.0) mmol/L Total Bilirubin 2.2 H (0.2-1.3) mg/dL AST 63 H (17-59) U/L Ammonia (<30) umol/L Total Protein 6.2 L (6.3-8.2) g/dL Albumin 3.0 L (3.5-5.0) g/dL Crossmatch 11/21/18 Range/Units 10:45 RBC 3.11 L (4.30-5.90) m/uL Hgb 7.8 L (13.0-17.5) gm/dL Hct 26.8 L (39.0-53.0) % MCH (25.0-35.0) pg MCHC 29.3 L (31.0-37.0) g/dL RDW 19.9 H (11.5-15.5) % Plt Count 145 L (150-450) k/uL PT (9.0-12.0) sec INR (<1.2) Chloride (98-107) mmol/L Carbon Dioxide (22-30) mmol/L Creatinine (0.66-1.25) mg/dL Glucose (74-99) mg/dL Plasma Lactic Acid Balaji (0.7-2.0) mmol/L Total Bilirubin (0.2-1.3) mg/dL AST (17-59) U/L Ammonia (<30) umol/L Total Protein (6.3-8.2) g/dL Albumin (3.5-5.0) g/dL Crossmatch Thrombosis Risk Factor Assmnt - Choose All That Apply Any of the Below Risk Factors Present?: Yes Each Factor Represents 1 point: Age 41-60 years, Obesity (BMI >25) Other Risk Factors: No Other congenital or acquired thrombophilia - If yes, enter type in comment: No Thrombosis Risk Factor Assessment Total Risk Factor Score: 2 Thrombosis Risk Factor Assessment Level: Low Risk Assessment and Plan Assessment: -Acute on chronic blood loss anemia secondary to Acute GI bleed in a patient with history of esophageal varices, liver cirrhosis, portal hypertension, ongoing alcohol abuse, status post recent banding on 09/02. Reported hemoptysis, melena at home. -Esophageal varices, recent banding 09/02 -Ongoing EtOH abuse -Portal hypertension -Alcohol liver Cirrhosis with ascites. Last paracentesis 09/05/2018; cytology and cultures negative. -Coagulopathy -Hyperammonemia -Ongoing nicotine dependence -Chronic pancreatitis -Nephrolithiasis Plan:Continue on current medication regime, monitoring and symptomatic t reatment. Maintain IV fluid hydration, PPI, spontaneous bacterial prophylaxis- Rocephin. Serial CBCs. Pending EGD as per GI. Further recommendations to follow. The impression and plan of care has been dictated as directed. : I performed a history and examination of this patient, discussed the same with the dictator. I agree with the dictator's note ,documented as a scribe. Any additional findings or plans will be noted.
[2018-11-21] MEDS: LORazepam 2 MG/ML INJ IV PRN (18:54)
[2018-11-22] MEDS: LORazepam 2 MG/ML INJ IV PRN (00:59)
[2018-11-22] MEDS: OCTREOTIDE 100 MCG/ML INJ IVP SCH ×2 (01:00→09:07)
[2018-11-22 05:47] VITALS: TEMP 98.5
[2018-11-22 06:31] LABS: Anisocytosis Slight; HCT 25.2 % (39.0-53.0); HGB 7.4 gm/dL (13.0-17.5); Hypochromasia Marked; INR 1.6 (<1.2); MCH 25.3 pg (25.0-35.0); MCHC 29.4 g/dL (31.0-37.0); MCV 85.8 fL (80.0-100.0); Mean Platelet Volume 8.2; Platelet Count 99 k/uL (150-450); Poikilocytosis Moderate; Prothrombin Time 16.1 sec (9.0-12.0); RBC 2.94 m/uL (4.30-5.90); RDW 19.5 % (11.5-15.5); WBC 4.9 k/uL (3.8-10.6)
[2018-11-22 06:34] LABS: ALT 28 U/L (21-72); AST 55 U/L (17-59); African American GFR (CKD) >90 (>60 ml/min/1.73 sqM); Albumin 2.8 g/dL (3.5-5.0); Alkaline Phosphatase 78 U/L (38-126); Anion Gap 6 mmol/L; Blood Urea Nitrogen 16 mg/dL (9-20); Calcium 8.2 mg/dL (8.4-10.2); Carbon Dioxide 21 mmol/L (22-30); Chloride 115 mmol/L (98-107); Glucose 98 mg/dL (74-99); Potassium 3.6 mmol/L (3.5-5.1); Sodium 142 mmol/L (137-145); Total Bilirubin 1.9 mg/dL (0.2-1.3)
[2018-11-22] MEDS: THIAMINE 100 MG TAB PO SCH (06:45)
[2018-11-22 07:06] LABS: Eosinophils # (M) 0.54 k/uL (0-0.7); Lymphocytes # (M) 0.78 k/uL (1.0-4.8); Monocytes # (M) 0.29 k/uL (0-1.0); Myelocytes % 4 %; Neutrophils # (M) 3.09 k/uL (1.3-7.7); Neutrophils % (M) 63 %; Nucleated Red Blood Cells 0 /100 WBC (0-0); Total Cells Counted 200
[2018-11-22] MEDS: PANTOPRAZOLE 40 MG/10 ML VIAL IV SCH (09:07)
[2018-11-22 10:46] VITALS: BP 114/60; PULSE 87
[2018-11-22] MEDS: SODIUM CHLORIDE 0.9% 1,000 ML IV SCH (12:52)
--- NOTE | 2018-11-22 14:12 | P.PN ---
Subjective Progress Note Date: 11/22/18 Principal diagnosis: Hematemesis EtOH abuse No active bleeding. Hemoglobin 7.4. Tolerating full liquids. INR 1.6. Denies abdominal pain. Objective - Vital Signs Vital signs: Vital Signs Temp 98.5 F 11/22/18 08:00 Pulse 87 11/22/18 12:00 Resp 18 11/22/18 12:00 BP 114/60 11/22/18 08:00 Pulse Ox 96 11/22/18 08:00 Intake & Output 11/21/18 11/22/18 11/22/18 18:59 06:59 18:59 Intake Total 910 1040 Output Total 600 1200 Balance 310 -1200 1040 Weight 79.7 kg Intake: IV 500 400 Sodium Chloride 0.9% 1, 450 300 000 ml @ 75 mls/hr IV . [id number] [facility] Rx#:[id number] cefTRIAXone 1 gm In 50 100 Sodium Chloride 0.9% 50 ml @ 100 mls/hr IVPB Q24HR [facility] Rx#:[id number] Oral 100 640 Blood Product 310 Rc As-1 Unit 310 [id number] Output: Urine 600 1200 Other: Voiding Method Urinal Urinal Urinal # Voids 0 0 - Exam General appearance: The patient is alert, oriented, in no acute distress. HET: Head is normocephalic and atraumatic. Pupils are equal and reactive. Oropharynx is clear without lesions. Neck: Supple without lymphadenopathy. Trachea midline. Heart: S1 S2. Regular rate and rhythm. Lungs: No crackles or wheezes are heard. Abdomen: Soft, nontender, nondistended with bowel sounds. No peritoneal signs. No palpable organomegaly or masses. Extremities: Normal skin color and turgor. No cyanosis, rash, ulceration, clubbing, or edema. Radial and pedal pulses are 2/4 bilaterally. Neurological: No focal deficits. Strength and sensation are grossly intact. - Labs CBC & Chem 7: 11/22/18 05:22 11/22/18 05:22 Labs: Abnormal Lab Results - Last 24 Hours (Table) 11/22/18 11/22/18 11/22/18 Range/Units 05:22 05:22 05:22 RBC 2.94 L (4.30-5.90) m/uL Hgb 7.4 L (13.0-17.5) gm/dL Hct 25.2 L (39.0-53.0) % MCHC 29.4 L (31.0-37.0) g/dL RDW 19.5 H (11.5-15.5) % Plt Count 99 L (150-450) k/uL Lymphocytes # (Manual) 0.78 L (1.0-4.8) k/uL Myelocytes # (Manual) 0.20 H (0) k/uL PT 16.1 H (9.0-12.0) sec INR 1.6 H (<1.2) Chloride 115 H (98-107) mmol/L Carbon Dioxide 21 L (22-30) mmol/L Creatinine 0.55 L (0.66-1.25) mg/dL Calcium 8.2 L (8.4-10.2) mg/dL Total Bilirubin 1.9 H (0.2-1.3) mg/dL Total Protein 6.0 L (6.3-8.2) g/dL Albumin 2.8 L (3.5-5.0) g/dL Assessment and Plan (1) Hematemesis Narrative/Plan: 43-year-old male with a history of underlying alcohol liver disease cirrhosis portal hypertensive gastropathy esophageal varices chronic alcoholism admitted with acute hematemesis. Current Visit: Yes Status: Acute Code(s): K92.0 - HEMATEMESIS SNOMED Code(s): 7436259 (2) Ascites Current Visit: Yes Status: Acute Code(s): R18.8 - OTHER ASCITES SNOMED Code(s): 970680234 (3) Portal hypertensive gastropathy Current Visit: Yes Status: Acute Code(s): K76.6 - PORTAL HYPERTENSION; K31.89 - OTHER DISEASES OF STOMACH AND DUODENUM SNOMED Code(s): 403367011 (4) Chronic alcoholism Current Visit: Yes Status: Acute Code(s): F10.20 - ALCOHOL DEPENDENCE, UNCOMPLICATED SNOMED Code(s): 2753559 (5) Esophageal varices Current Visit: Yes Status: Acute Code(s): I85.00 - ESOPHAGEAL VARICES WITHOUT BLEEDING SNOMED Code(s): 91930977 (6) Cirrhosis Current Visit: Yes Status: Acute Code(s): K74.60 - UNSPECIFIED CIRRHOSIS OF LIVER SNOMED Code(s): 51413635 (7) Acute blood loss anemia Current Visit: Yes Status: Acute Code(s): D62 - ACUTE POSTHEMORRHAGIC ANEMIA SNOMED Code(s): 891207367 (8) Coagulopathy Current Visit: Yes Status: Acute Code(s): D68.9 - COAGULATION DEFECT, UNSPECIFIED SNOMED Code(s): 56966213 Plan: 1. CBC at 1400 if stable may be discharged. Antibiotics not necessary on discharge. 2. Protonix 40 mg daily. Lasix 40 mg twice daily. Aldactone 100 mg daily Inderal 10 mg 3 times a day recommended. These medications were advised on his previous admissions however patient has a history of noncompliance. 3. Alcohol abstinence advised. Follow up in GI office after discharge. Assessment and plan a care discussed with Dr. Huff
[2018-11-22 14:23] LABS: Anisocytosis Moderate; Basophils % (A) 1 %; Eosinophils # (A) 0.3 k/uL (0-0.7); Eosinophils % (A) 7 %; HCT 24.7 % (39.0-53.0); HGB 7.2 gm/dL (13.0-17.5); Hypochromasia Marked; Lymphocytes # (A) 0.6 k/uL (1.0-4.8); Lymphocytes % (A) 17 %; MCH 24.7 pg (25.0-35.0); MCHC 29.1 g/dL (31.0-37.0); MCV 84.9 fL (80.0-100.0); Mean Platelet Volume 8.9; Microcytosis Slight; Monocytes # (A) 0.4 k/uL (0-1.0); Monocytes % (A) 11 %; Neutrophils # (A) 2.3 k/uL (1.3-7.7); Neutrophils % (A) 60 %; Platelet Count 111 k/uL (150-450); Poikilocytosis Slight; RBC 2.91 m/uL (4.30-5.90); RDW 20.2 % (11.5-15.5); WBC 3.8 k/uL (3.8-10.6)
--- NOTE | 2018-11-22 15:11 | P.DS ---
Providers Date of admission: 11/20/18 20:23 Expected date of discharge: 11/22/18 Attending physician: Aristeo Fox Consults: 11/20/18 20:21 Consult Physician Urgent Consulting Provider: Epifanio Harrington Consult Reason/Comments: GI bleeding Do you want consulting provider notified?: Yes Primary care physician: [facility] Course: Final Diagnoses: -Acute on chronic blood loss anemia secondary to Acute GI bleed in a patient with history of esophageal varices, liver cirrhosis, portal hypertension, ongoing alcohol abuse, status post recent banding on 09/02. Reported hemoptysis, melena at home. -Esophageal varices, recent banding 09/02 -Ongoing EtOH abuse -Portal hypertension -Alcohol liver Cirrhosis with ascites. Last paracentesis 09/05/2018; cytology and cultures negative. -Coagulopathy -Hyperammonemia -Ongoing nicotine dependence -Chronic pancreatitis -Nephrolithiasis -Noncompliance Hospital course:This is a 43-year-old gentleman with history of esophageal varices, banding, portal hypertension ,ongoing alcohol abuse, liver cirrhosis, GI bleeds, noncompliant with medication regimen and multiple other medical issues admitted with complaints of hemoptysis, melena accompanied by lightheadedness and dizziness 1 day. Most recent EGD/colonoscopy August 2018 reporting some esophageal varices, banding 4, colonoscopy aborted secondary to poor prep. Continued drinking alcohol over the holiday weekend. Hemoglobin 8.1, MCV 84, platelets 123, INR 1.7. on admission, lactic acid 2.4, positive stool for occult blood. T bili 1.[address] of abdomen and pelvis reporting extensive decreased density in the liver, liver cirrhosis, splenomegaly, dilated splenic and esophageal veins consistent with portal venous hypertension, moderate abdo serafin ascites. Received IV fluids, Protonix and Zofran in the ER. Denies any further lightheadedness, dizziness, hemoptysis, melena. Maintained on IV fluid hydration, IV Sandostatin, PPI, Rocephin for spontaneous bacterial prophylaxis. Hemoglobin 7.4, INR 1.6 ,no further active bleeding. Tolerated diet with no nausea vomiting or diarrhea. Denies abdominal pain. Denies chest pain, palpitations or shortness of breath. Significant clinical improvement. Cleared by GI for discharge. Patient is being discharged home in a stable condition with guarded prognosis. Alcohol abstinence, resources, compliance reinforced. EXAM: General: alert and oriented times 3. no acute distress. Cardiac: [Heart regular in rate and rhythm. No S3. No S4. No clicks, rubs. No murmur.] Lungs: [Clear to auscultation bilaterally. No crackles, no wheezes Abdomen: [Soft, nontender, mildly distended,ascites .No mass palpable. No guarding. Bowel sounds presnt and normoactive in all 4 quadrants. Neurologic:CN II - XII grossly intact. No focal deficits. The impression and plan of care has been dictated as directed. : I performed a history and examination of this patient, discussed the same with the dictator. I agree with the dictator's note ,documented as a scribe. Any additional findings or plans will be noted. Time taken: 35 minutes Patient Condition at Discharge: Stable Plan - Discharge Summary New Discharge Prescriptions: New Spironolactone [Aldactone] 100 mg PO DAILY #30 tab Propranolol [Inderal] 10 mg PO TID #90 tab Furosemide [Lasix] 40 mg PO BID #60 tablet Pantoprazole Sodium [Protonix] 40 mg PO DAILY #30 tablet. Continue Folic Acid 1 mg PO DAILY@1200 Multivitamins, Thera [Multivitamin (formulary)] 1 tab PO DAILY #30 tablet Thiamine [Vitamin B-1] 100 mg PO DAILY #30 tablet oxyCODONE HCL [Roxicodone] 5 mg PO Q8H PRN PRN Reason: Pain Discharge Medication List Folic Acid 1 mg PO DAILY@1200 09/01/17 [History] Multivitamins, Thera [Multivitamin (formulary)] 1 tab PO DAILY #30 tablet 09/03/17 [Rx] Thiamine [Vitamin B-1] 100 mg PO DAILY #30 tablet 09/03/17 [Rx] oxyCODONE HCL [Roxicodone] 5 mg PO Q8H PRN 10/08/18 [History] Furosemide [Lasix] 40 mg PO BID #60 tablet 11/22/18 [Rx] Pantoprazole Sodium [Protonix] 40 mg PO DAILY #30 tablet. 11/22/18 [Rx] Propranolol [Inderal] 10 mg PO TID #90 tab 11/22/18 [Rx] Spironolactone [Aldactone] 100 mg PO DAILY #30 tab 11/22/18 [Rx] Follow up Appointment(s)/Referral(s): James Meza Jr, DO [Primary Care Provider] - 3 Days Epifanio Harrington MD [STAFF PHYSICIAN] - 4 Weeks Ambulatory/Diagnostic Orders: Complete Blood Count w/diff [LAB.AMB] Time Frame: 3 Days, Location: None Selected Patient Instructions/Handouts: Gastrointestinal Bleeding (DC), Abuse of Alcohol (DC), Anemia (DC) Activity/Diet/Wound Care/Special Instructions: Alcohol abstinence resources provided as per case management No ETOH
== END 2018-11-22 16:36 | disposition home or self-care (01) | DRG 441 ==
LOC: EC 17:41 → 4SSUR 20:23 → 3SCARD 11-21 04:19
PROVIDERS: ADMIT Family Medicine; ATTEND Family Medicine
DX: K76.6 Portal hypertension (principal); I85.11 Secondary esophageal varices with bleeding; D62 Acute posthemorrhagic anemia; D68.4 Acquired coagulation factor deficiency; K86.1 Other chronic pancreatitis; E72.4 Disorders of ornithine metabolism; K31.89 Other diseases of stomach and duodenum; F10.20 Alcohol dependence, uncomplicated; F17.210 Nicotine dependence, cigarettes, uncomplicated; F43.10 Post-traumatic stress disorder, unspecified; J45.909 Unspecified asthma, uncomplicated; K70.31 Alcoholic cirrhosis of liver with ascites; N20.0 Calculus of kidney; Z82.49 Family history of ischemic heart disease and other diseases of the circulatory system; Z87.442 Personal history of urinary calculi; Z91.14 Patient's other noncompliance with medication regimen; Z91.19 Patient's noncompliance with other medical treatment and regimen; Z86.14 Personal history of Methicillin resistant Staphylococcus aureus infection; Z87.01 Personal history of pneumonia (recurrent); Z56.0 Unemployment, unspecified; Z84.2 Family history of other diseases of the genitourinary system
CPT/HCPCS: 36415; 74177; 80048; 80053; 82140; 82272; 83605; 83690; 83735; 83880; 84484; 85025; 85610; 86850; 86900; 86901; 86902; 86920; 93005; 96361; 96374; 96375; 99285

== ENCOUNTER 2018-12-02 19:32 | Inpatient (IN) | payer OTHER ==
[2018-12-02 21:37] LABS: Anisocytosis Slight; HCT 20.9 % (39.0-53.0); Hypochromasia Marked; MCHC 29.4 g/dL (31.0-37.0); MCV 84.9 fL (80.0-100.0); Mean Platelet Volume 8.8; Platelet Count 147 k/uL (150-450); Poikilocytosis Slight; RBC 2.46 m/uL (4.30-5.90); RDW 19.6 % (11.5-15.5); WBC 4.9 k/uL (3.8-10.6)
[2018-12-02 21:41] LABS: ALT 25 U/L (21-72); AST 61 U/L (17-59); African American GFR (CKD) >90 (>60 ml/min/1.73 sqM); Albumin 3.1 g/dL (3.5-5.0); Alkaline Phosphatase 116 U/L (38-126); Anion Gap 9 mmol/L; Blood Urea Nitrogen 8 mg/dL (9-20); Carbon Dioxide 16 mmol/L (22-30); Chloride 113 mmol/L (98-107); Glucose 116 mg/dL (74-99); Potassium 3.7 mmol/L (3.5-5.1); Sodium 138 mmol/L (137-145); Total Bilirubin 0.9 mg/dL (0.2-1.3); Total Protein 6.4 g/dL (6.3-8.2)
[2018-12-02 21:49] LABS: HGB 6.1 gm/dL (13.0-17.5)
[2018-12-02 22:07] LABS: Eosinophils # (M) 0.34 k/uL (0-0.7); Lymphocytes # (M) 1.18 k/uL (1.0-4.8); Monocytes # (M) 0.78 k/uL (0-1.0); Myelocytes # (M) 0.05 k/uL (0); Myelocytes % 1 %; Neutrophils % (M) 54 %; Nucleated Red Blood Cells 0 /100 WBC (0-0); Total Cells Counted 200
[2018-12-02] MEDS ORDERED: LORazepam 2 MG/ML INJ IV STA (22:53)
--- NOTE | 2018-12-02 23:20 | ED ---
GI Bleed HPI - General Chief complaint: GI Bleed Stated complaint: Vomiting blood Time Seen by Provider: 12/02/18 21:06 Source: patient Mode of arrival: ambulatory - History of Present Illness Initial comments: Patient is a 43-year-old man with history of cirrhosis and esophageal varices, who presents with complaint that he had had some vomiting earlier in the day and then also some coffee-ground emesis associated with this. He also had noted some dark stools over the past couple of days. Patient had been at a vacation property in the [place] part of the [facility] but has been back for couple of days, when he noted the symptoms. Patient is denying shortness of breath, diapho resis, chest pain, palpitations, but he does feel a little bit fatigued and did get lightheaded once when he stood. MD complaint: coffee ground emesis, melena -: hour(s) Quality: painless Consistency: now resolved Improves with: none Worsens with: none Context: history of GI bleed, known esophageal varices - Related Data Home Medications Medication Instructions Recorded Confirmed Folic Acid 1 mg PO DAILY@1200 09/01/17 12/02/18 Previous Rx's Medication Instructions Recorded Multivitamins, Thera [Multivitamin 1 tab PO DAILY #30 tablet 09/03/17 (formulary)] Thiamine [Vitamin B-1] 100 mg PO DAILY #30 tablet 09/03/17 Allergies Allergy/AdvReac Type Severity Reaction Status Date / Time No Known Allergies Allergy Verified 12/02/18 22:47 Review of Systems ROS Statement: Those systems with pertinent positive or pertinent negative responses have been documented in the HPI. ROS Other: All systems not noted in ROS Statement are negative. Constitutional: Denies: fever Respiratory: Denies: cough, dyspnea, wheezes, hemoptysis Cardiovascular: Denies: chest pain, palpitations, edema, syncope Gastrointestinal: Reports: nausea, vomiting, melena. Denies: abdominal pain, diarrhea, hematemesis, hematochezia Genitourinary: Denies: dysuria, hematuria Musculoskeletal: Denies: back pain Skin: Denies: rash Neurological: Denies: headache, weakness, numbness Hematological/Lymphatic: Denies: easy bleeding Past Medical History Past Medical History: Asthma, GI Bleed, Liver Disease, Pneumonia Additional Past Medical History / Comment(s): ETOH abuse, liver cirrhosis, abdominal ascites, pancreatitis, multiple gallstones, nephrolithiasis, chronic anemia, esophageal varices, hx urinating blood and kidneys stone History of Any Multi-Drug Resistant Organisms: MRSA Date of last positivie culture/infection: 12/09/2013 MDRO Source:: Right first finger Past Surgical History: Appendectomy, Cholecystectomy, Orthopedic Surgery Additional Past Surgical History / Comment(s): 07/09/17 EGD/colonoscopy, paracentesis, right hand tendon repair, right knee arthroscopy, cystoscopy for kidney stone removal, right hand ring finger surgery. blood transfusions. Past Anesthesia/Blood Transfusion Reactions: Previous Problems w/ Anesthesia Additional Past Anesthesia/Blood Transfusion Reaction / Comment(s): Woke up during scope procedure. Past Psychological History: PTSD Smoking Status: Current every day smoker Past Alcohol Use History: Abuse, Daily Past Drug Use History: Marijuana - Past Family History Mother Family Medical History: Hypertension Father Additional Family Medical History / Comment(s): Prostate issues. Brain aneurysm. General Exam General appearance: alert, in no apparent distress, appears intoxicated Head exam: Present: atraumatic, normocephalic Eye exam: Present: normal appearance. Absent: scleral icterus, conjunctival injection ENT exam: Present: normal oropharynx Neck exam: Present: normal inspection Respiratory exam: Present: normal lung sounds bilaterally. Absent: respiratory distress, wheezes, rales, rhonchi, stridor Cardiovascular Exam: Present: regular rate, normal rhythm, normal heart sounds. Absent: systolic murmur, diastolic murmur, rubs, gallop GI/Abdominal exam: Present: soft. Absent: distended, tenderness, guarding, rebound, rigid, mass, pulsatile mass, hernia Extremities exam: Present: normal inspection, normal capillary refill. Absent: pedal edema, calf tenderness Back exam: Present: normal inspection. Absent: CVA tenderness (R), CVA tenderness (L) Neurological exam: Present: alert Skin exam: Present: warm, dry, intact, pallor. Absent: rash, cyanosis, diaphoretic, petechiae, mottled Course Vital Signs 12/02/18 12/02/18 12/02/18 20:00 21:10 23:03 Temperature 98 F Pulse Rate 98 82 80 Respiratory 20 18 18 Rate Blood Pressure 115/68 119/66 121/72 O2 Sat by Pulse 98 99 94 L Oximetry 12/03/18 12/03/18 12/03/18 00:18 00:21 00:31 Temperature 98.7 F 98 F 98.6 F Pulse Rate 84 82 71 Respiratory 18 18 18 Rate Blood Pressure 122/67 110/70 112/69 O2 Sat by Pulse 92 L 92 L 92 L Oximetry 12/03/18 12/03/18 12/03/18 01:01 01:27 01:29 Temperature 98.7 F 97.8 F 97.8 F Pulse Rate 78 83 83 Respiratory 18 18 18 Rate Blood Pressure 123/68 111/70 111/70 O2 Sat by Pulse 92 L 95 95 Oximetry Medical Decision Making - Medical Decision Making Patient's 43-year-old man with coffee-ground emesis. Patient found to be anemic with hemoglobin 6.1. His vital signs are stable and he is not currently manifesting signs or symptoms of acute variceal bleed. He has not had further hematemesis during his course here in the emergency department for hours. - Lab Data Result diagrams: 12/04/18 09:25 12/04/18 09:25 Lab Results 12/02/18 12/02/18 12/02/18 Range/Units 21:06 21:06 21:06 WBC 4.9 (3.8-10.6) k/uL RBC 2.46 L (4.30-5.90) m/uL Hgb 6.1 L* (13.0-17.5) gm/dL Hct 20.9 L (39.0-53.0) % MCV 84.9 (80.0-100.0) fL MCH 25.0 (25.0-35.0) pg MCHC 29.4 L (31.0-37.0) g/dL RDW 19.6 H (11.5-15.5) % Plt Count 147 L (150-450) k/uL Neutrophils % (Manual) 54 % Lymphocytes % (Manual) 24 % Monocytes % (Manual) 16 % Eosinophils % (Manual) 7 % Myelocytes % 1 % Neutrophils # (Manual) 2.65 (1.3-7.7) k/uL Lymphocytes # (Manual) 1.18 (1.0-4.8) k/uL Monocytes # (Manual) 0.78 (0-1.0) k/uL Eosinophils # (Manual) 0.34 (0-0.7) k/uL Myelocytes # (Manual) 0.05 H (0) k/uL Nucleated RBCs 0 (0-0) /100 WBC Manual Slide Review Performed Hypochromasia Marked Poikilocytosis Slight Anisocytosis Slight APTT (22.0-30.0) sec Sodium 138 (137-145) mmol/L Potassium 3.7 (3.5-5.1) mmol/L Chloride 113 H (98-107) mmol/L Carbon Dioxide 16 L (22-30) mmol/L Anion Gap 9 mmol/L BUN 8 L (9-20) mg/dL Creatinine 0.55 L (0.66-1.25) mg/dL Est GFR (CKD-EPI)AfAm >90 (>60 ml/min/1.73 sqM) Est GFR (CKD-EPI)NonAf >90 (>60 ml/min/1.73 sqM) Glucose 116 H (74-99) mg/dL Plasma Lactic Acid Balaji 2.0 (0.7-2.0) mmol/L Calcium 8.0 L (8.4-10.2) mg/dL Total Bilirubin 0.9 (0.2-1.3) mg/dL AST 61 H (17-59) U/L ALT 25 (21-72) U/L Alkaline Phosphatase 116 (38-126) U/L Troponin I (0.000-0.034) ng/mL Total Protein 6.4 (6.3-8.2) g/dL Albumin 3.1 L (3.5-5.0) g/dL Serum Alcohol mg/dL Blood Type Blood Type Recheck Antibody Screen Crossmatch Spec Expiration Date 12/02/18 12/02/18 12/02/18 Range/Units 21:06 21:06 21:06 WBC (3.8-10.6) k/uL RBC (4.30-5.90) m/uL Hgb (13.0-17.5) gm/dL Hct (39.0-53.0) % MCV (80.0-100.0) fL MCH (25.0-35.0) pg MCHC (31.0-37.0) g/dL RDW (11.5-15.5) % Plt Count (150-450) k/uL Neutrophils % (Manual) % Lymphocytes % (Manual) % Monocytes % (Manual) % Eosinophils % (Manual) % Myelocytes % % Neutrophils # (Manual) (1.3-7.7) k/uL Lymphocytes # (Manual) (1.0-4.8) k/uL Monocytes # (Manual) (0-1.0) k/uL Eosinophils # (Manual) (0-0.7) k/uL Myelocytes # (Manual) (0) k/uL Nucleated RBCs (0-0) /100 WBC Manual Slide Review Hypochromasia Poikilocytosis Anisocytosis APTT 27.2 (22.0-30.0) sec Sodium (137-145) mmol/L Potassium (3.5-5.1) mmol/L Chloride (98-107) mmol/L Carbon Dioxide (22-30) mmol/L Anion Gap mmol/L BUN (9-20) mg/dL Creatinine (0.66-1.25) mg/dL Est GFR (CKD-EPI)AfAm (>60 ml/min/1.73 sqM) Est GFR (CKD-EPI)NonAf (>60 ml/min/1.73 sqM) Glucose (74-99) mg/dL Plasma Lactic Acid Balaji (0.7-2.0) mmol/L Calcium (8.4-10.2) mg/dL Total Bilirubin (0.2-1.3) mg/dL AST (17-59) U/L ALT (21-72) U/L Alkaline Phosphatase (38-126) U/L Troponin I <0.012 (0.000-0.034) ng/mL Total Protein (6.3-8.2) g/dL Albumin (3.5-5.0) g/dL Serum Alcohol mg/dL Blood Type A Negative Blood Type Recheck No Antibody Screen NEGATIVE Crossmatch See Detail Spec Expiration Date 12/05/2018 - 230512/02/18 Range/Units 22:23 WBC (3.8-10.6) k/uL RBC (4.30-5.90) m/uL Hgb (13.0-17.5) gm/dL Hct (39.0-53.0) % MCV (80.0-100.0) fL MCH (25.0-35.0) pg MCHC (31.0-37.0) g/dL RDW (11.5-15.5) % Plt Count (150-450) k/uL Neutrophils % (Manual) % Lymphocytes % (Manual) % Monocytes % (Manual) % Eosinophils % (Manual) % Myelocytes % % Neutrophils # (Manual) (1.3-7.7) k/uL Lymphocytes # (Manual) (1.0-4.8) k/uL Monocytes # (Manual) (0-1.0) k/uL Eosinophils # (Manual) (0-0.7) k/uL Myelocytes # (Manual) (0) k/uL Nucleated RBCs (0-0) /100 WBC Manual Slide Review Hypochromasia Poikilocytosis Anisocytosis APTT (22.0-30.0) sec Sodium (137-145) mmol/L Potassium (3.5-5.1) mmol/L Chloride (98-107) mmol/L Carbon Dioxide (22-30) mmol/L Anion Gap mmol/L BUN (9-20) mg/dL Creatinine (0.66-1.25) mg/dL Est GFR (CKD-EPI)AfAm (>60 ml/min/1.73 sqM) Est GFR (CKD-EPI)NonAf (>60 ml/min/1.73 sqM) Glucose (74-99) mg/dL Plasma Lactic Acid Balaji (0.7-2.0) mmol/L Calcium (8.4-10.2) mg/dL Total Bilirubin (0.2-1.3) mg/dL AST (17-59) U/L ALT (21-72) U/L Alkaline Phosphatase (38-126) U/L Troponin I (0.000-0.034) ng/mL Total Protein (6.3-8.2) g/dL Albumin (3.5-5.0) g/dL Serum Alcohol 91 mg/dL Blood Type Blood Type Recheck Antibody Screen Crossmatch Spec Expiration Date Disposition Clinical Impression: ETOH abuse, GI bleed, Anemia Disposition: ADMITTED IP TO THIS [facility] Condition: Poor
[2018-12-03] MEDS ORDERED: ACETAMINOPHEN TAB 325 MG TAB PO PRN (00:57)
[2018-12-03] MEDS ORDERED: NALOXONE 0.4 MG/ML 1 ML VIAL IV PRN (00:57)
[2018-12-03] MEDS ORDERED: ONDANSETRON 4 MG/2 ML VIAL IVP PRN (00:57)
[2018-12-03] MEDS ORDERED: PROMETHAZINE 25 MG TAB PO PRN (00:57)
[2018-12-03] MEDS ORDERED: THIAMINE 100 MG/ML 2 ML VIAL IM STA (01:02)
[2018-12-03] MEDS ORDERED: LORazepam 2 MG/ML INJ IV PRN ×3 (01:02)
[2018-12-03 02:27] VITALS: BMI 25.7
[2018-12-03] MEDS: MORPHINE SULFATE 2 MG/ML SYRINGE IVP PRN ×4 (02:40→21:12)
[2018-12-03] MEDS: SODIUM CHLORIDE 0.9% 1,000 ML IV SCH ×3 (02:41→19:37)
[2018-12-03 07:09] LABS: African American GFR (CKD) >90 (>60 ml/min/1.73 sqM); Anion Gap 7 mmol/L; Blood Urea Nitrogen 7 mg/dL (9-20); Calcium 7.6 mg/dL (8.4-10.2); Carbon Dioxide 19 mmol/L (22-30); Chloride 115 mmol/L (98-107); Glucose 81 mg/dL (74-99); Potassium 3.5 mmol/L (3.5-5.1); Sodium 141 mmol/L (137-145)
[2018-12-03] MEDS: MULTIVITAMINS, THERA 1 EACH TAB PO SCH (08:42)
[2018-12-03] MEDS: PANTOPRAZOLE 40 MG/10 ML VIAL IV SCH (08:42)
[2018-12-03] MEDS ORDERED: THIAMINE 100 MG TAB PO SCH (09:00)
[2018-12-03 09:14] LABS: Anisocytosis Slight; HCT 23.5 % (39.0-53.0); Hypochromasia Marked; MCH 25.7 pg (25.0-35.0); MCHC 29.5 g/dL (31.0-37.0); MCV 87.2 fL (80.0-100.0); Mean Platelet Volume 8.8; Platelet Count 116 k/uL (150-450); Poikilocytosis Slight; RBC 2.69 m/uL (4.30-5.90); RDW 19.8 % (11.5-15.5); WBC 3.5 k/uL (3.8-10.6)
[2018-12-03 09:15] LABS: HGB 6.9 gm/dL (13.0-17.5)
[2018-12-03 09:56] LABS: Basophils # (M) 0.04 k/uL (0-0.2); Eosinophils # (M) 0.25 k/uL (0-0.7); Lymphocytes # (M) 0.74 k/uL (1.0-4.8); Monocytes # (M) 0.35 k/uL (0-1.0); Neutrophils % (M) 61 %; Nucleated Red Blood Cells 0 /100 WBC (0-0); Total Cells Counted 100
[2018-12-03] MEDS: FOLIC ACID 1 MG TAB PO SCH (11:49)
--- NOTE | 2018-12-03 12:12 | P.HPIM ---
History of Present Illness H&P Date: 12/03/18 Chief Complaint: Anemia, coffee ground emesis, melanotic stool Patient is a 44-year-old male well-known to the practice history of alcoholic cirrhosis esophageal varices who presents with complaint that of coffee-ground emesis earlier in the day. Patient also complains of dark tarry stools over the last couple of days. [place] [facility] and back for a couple days states he didn't drink some beer, [place] extensive.] The patient states he has not consumed any alcoholic beverages in the last 3 days at all. Denies shortness of breath denies diaphoresis denies chest pain denies palpitations complains of significant fatigue and occasional lightheadedness Review of Systems Constitutional: Reports fatigue, Reports night sweats Ears, nose, mouth and throat: Reports as per HPI Cardiovascular: Reports as per HPI Respiratory: Reports as per HPI (Mild dyspnea) Gastrointestinal: Reports coffee ground emesis, Reports hematochezia, Reports melena Genitourinary: Reports as per HPI Musculoskeletal: Reports as per HPI Integumentary: Reports as per HPI Neurological: Reports as per HPI Past Medical History Past Medical History: Asthma, GI Bleed, Liver Disease, Pneumonia Additional Past Medical History / Comment(s): ETOH abuse, liver cirrhosis, abdominal ascites, pancreatitis, multiple gallstones, nephrolithiasis, chronic anemia, esophageal varices, hx urinating blood and kidneys stone History of Any Multi-Drug Resistant Organisms: MRSA Date of last positivie culture/infection: 12/09/2013 MDRO Source:: Right first finger Past Surgical History: Appendectomy, Cholecystectomy, Orthopedic Surgery Additional Past Surgical History / Comment(s): 07/09/17 EGD/colonoscopy, paracentesis, right hand tendon repair, right knee arthroscopy, cystoscopy for kidney stone removal, right hand ring finger surgery. blood transfusions. Past Anesthesia/Blood Transfusion Reactions: Previous Problems w/ Anesthesia Additional Past Anesthesia/Blood Transfusion Reaction / Comment(s): Woke up during scope procedure. Smoking Status: Current every day smoker - Past Family History Mother Family Medical History: Hypertension Father Additional Family Medical History / Comment(s): Prostate issues. Brain aneurysm. Medications and Allergies Home Medications Medication Instructions Recorded Confirmed Type Folic Acid 1 mg PO DAILY@1200 09/01/17 12/02/18 History Multivitamins, Thera [Multivitamin 1 tab PO DAILY #30 tablet 09/03/17 12/02/18 Rx (formulary)] Thiamine [Vitamin B-1] 100 mg PO DAILY #30 tablet 09/03/17 12/02/18 Rx Allergies Allergy/AdvReac Type Severity Reaction Status Date / Time No Known Allergies Allergy Verified 12/02/18 22:47 Physical Exam Osteopathic Statement: *. No significant issues noted on an osteopathic structural exam other than those noted in the History and Physical/Consult. Vitals: Vital Signs Temp Pulse Pulse Resp BP BP Pulse Ox 12/03/18 08:25 98.2 F 88 18 125/75 97 12/03/18 04:00 75 17 125/60 95 12/03/18 03:34 70 17 12/03/18 02:22 97.1 F L 70 17 127/59 95 12/03/18 02:09 97.1 F L 79 17 125/71 12/03/18 01:29 97.8 F 83 18 111/70 95 12/03/18 01:27 97.8 F 83 18 111/70 95 12/03/18 01:01 98.7 F 78 18 123/68 92 L 12/03/18 00:31 98.6 F 71 18 112/69 92 L 12/03/18 00:21 98 F 82 18 110/70 92 L 12/03/18 00:18 98.7 F 84 18 122/67 92 L 12/02/18 23:03 80 18 121/72 94 L 12/02/18 21:10 82 18 119/66 99 12/02/18 20:00 98 F 98 20 115/68 98 Intake and Output 12/02/18 12/03/18 12/03/18 22:59 06:59 14:59 Intake Total 950 Output Total 300 Balance 650 Intake: Intake, IV Titration 640 Amount Sodium Chloride 0.9% 1, 640 000 ml @ 125 mls/hr IV . Q8H [facility] Rx#:[id number] Blood Product 310 Rc As-1 Unit 310 [id number] Output: Urine 300 Other: Voiding Method Urinal Weight 86.183 kg 86.6 kg General: [Patient awake, alert and oriented times 3. Patient in no acute dist ress.] Slightly pale HEENT: [PERRL. EOMI. No pharyngeal erythema or exudate.] Neck: [No adenopathy.] Cardiac: [Heart regular in rate and rhythm. No S3. No S4. No clicks, rubs. No murmur.] Lungs: [Clear to auscultation bilaterally.] Abdomen: [No mass. No organomegaly. Bowel sounds presnt and normoactive in all 4 quadrants.] Extremes: [No edema no cyanosis no claudication normal pulses] : [] Musculoskeletal: [No joint erythema, edema or tenderness.] Skin: [No rash.] Neurologic: [No lateralizing deficits. CN II - XII grossly intact.] Lymphatic: [No adenopathy.] Results CBC & Chem 7: 12/03/18 05:59 12/03/18 05:59 Labs: Abnormal Lab Results - Last 24 Hours (Table) 12/02/18 12/02/18 12/02/18 Range/Units 21:06 21:06 21:06 WBC (3.8-10.6) k/uL RBC 2.46 L (4.30-5.90) m/uL Hgb 6.1 L* (13.0-17.5) gm/dL Hct 20.9 L (39.0-53.0) % MCHC 29.4 L (31.0-37.0) g/dL RDW 19.6 H (11.5-15.5) % Plt Count 147 L (150-450) k/uL Lymphocytes # (Manual) (1.0-4.8) k/uL Myelocytes # (Manual) 0.05 H (0) k/uL Chloride 113 H (98-107) mmol/L Carbon Dioxide 16 L (22-30) mmol/L BUN 8 L (9-20) mg/dL Creatinine 0.55 L (0.66-1.25) mg/dL Glucose 116 H (74-99) mg/dL Calcium 8.0 L (8.4-10.2) mg/dL AST 61 H (17-59) U/L Albumin 3.1 L (3.5-5.0) g/dL Crossmatch See Detail 12/03/18 12/03/18 Range/Units 05:59 05:59 WBC 3.5 L (3.8-10.6) k/uL RBC 2.69 L (4.30-5.90) m/uL Hgb 6.9 L* (13.0-17.5) gm/dL Hct 23.5 L (39.0-53.0) % MCHC 29.5 L (31.0-37.0) g/dL RDW 19.8 H (11.5-15.5) % Plt Count 116 L (150-450) k/uL Lymphocytes # (Manual) 0.74 L (1.0-4.8) k/uL Myelocytes # (Manual) (0) k/uL Chloride 115 H (98-107) mmol/L Carbon Dioxide 19 L (22-30) mmol/L BUN 7 L (9-20) mg/dL Creatinine 0.54 L (0.66-1.25) mg/dL Glucose (74-99) mg/dL Calcium 7.6 L (8.4-10.2) mg/dL AST (17-59) U/L Albumin (3.5-5.0) g/dL Crossmatch Thrombosis Risk Factor Assmnt - Choose All That Apply Any of the Below Risk Factors Present?: No Other Risk Factors: No Thrombosis Risk Factor Assessment Level: Very Low Risk Assessment and Plan (1) Anemia Current Visit: Yes Status: Acute Code(s): D64.9 - ANEMIA, UNSPECIFIED SNOMED Code(s): 378320721 (2) ETOH abuse Current Visit: Yes Status: Acute Code(s): F10.10 - ALCOHOL ABUSE, UNCOMPLICATED SNOMED Code(s): 43272154 (3) GI bleed Current Visit: Yes Status: Acute Code(s): K92.2 - GASTROINTESTINAL HEMORRHAGE, UNSPECIFIED SNOMED Code(s): 95803662 (4) Abdominal pain Current Visit: No Status: Acute Code(s): R10.9 - UNSPECIFIED ABDOMINAL PAIN SNOMED Code(s): 95029691 (5) Acute alcoholic pancreatitis Current Visit: No Status: Acute Code(s): K85.20 - ALCOHOL INDUCED ACUTE PANCREATITIS WITHOUT NECROSIS OR INFCT SNOMED Code(s): 406982226 Plan: history of alcoholic cirrhosis Recent history of acute pancreatitis no no elevated amylase and lipase documented today Patient states the has not in drinking the last 3 days states that prior to that [place] his [place] home and had 1 or 2 beers over the course of the week Patient was transfused 1 unit of packed red cells in the emergency room for a hemoglobin of 6.9 We'll transfuse second unit GI consult was obtained Gen. surgery evaluation also was obtained IV fluid infusion NPO as of now GI has not examined patient has a very We'll continue to follow closely Time with Patient: Greater than 30
[2018-12-03] MEDS: THIAMINE 100 MG TAB PO SCH ×2 (19:37→19:38)
--- NOTE | 2018-12-03 21:12 | P.CONS ---
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 The patient reports multiple episodes of coffee- ground emesis prior to presentation. In addition he reports that over the past few days stool has been black and tarry. No bowel movements or vomiting since presentation. Initially patient's hemoglobin was found to be 6.1 and subsequent ly 6.9 after transfusion. Liver enzymes were significant for a total bilirubin 0.9, alkaline phosphatase 116, AST 61 and ALT 25. The patient has undergone EGD for evaluation of similar symptoms in the past, with varices noted on EGDs in both 08/2018 and a 09/2018 at which time banding was performed. Currently patient remains normotensive with no further episodes of GI bleeding since presentation. Review of Systems REVIEW OF SYSTEMS: CONSTITUTIONAL: Denies any fevers, chills, weight change or fatigue. CARDIOVASCULAR: Denies any chest pain, palpitations high or low blood pressures RESPIRATORY: Denies any shortness of breath, hemoptysis or cough. GENITOURINARY: No dysuria or hematuria. MUSCULOSKELETAL: No weakness reported. SKIN: Denies any new rashes or lesions, jaundice or pallor. PSYCHIATRIC: Denies any depression or anxiety. NEUROLOGY: Denies headache, denies any new focal deficits. EARS/NOSE/THROAT: No recent hearing change, congestion, nasal discharge or sore throat. EYES: No pain in eyes, discharge or change in vision. GASTROINTESTINAL: As per HPI. 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 blood transfusions. Past Anesthesia/Blood Transfusion Reactions: Previous Problems w/ Anesthesia Additional Past Anesthesia/Blood Transfusion Reaction / Comm: Woke up during scope procedure. Smoking Status: Current every day smoker - Past Family History Mother Family Medical History: Hypertension Father Additional Family Medical History / Comment(s): Prostate issues. Brain aneurysm. Medications and Allergies Home Medications Medication Instructions Recorded Confirmed Type Folic Acid 1 mg PO DAILY@1200 09/01/17 12/02/18 History Multivitamins, Thera [Multivitamin 1 tab PO DAILY #30 tablet 09/03/17 12/02/18 Rx (formulary)] Thiamine [Vitamin B-1] 100 mg PO DAILY #30 tablet 09/03/17 12/02/18 Rx Allergies Allergy/AdvReac Type Severity Reaction Status Date / Time No Known Allergies Allergy Verified 12/02/18 22:47 Physical Exam Vitals: Vital Signs Temp Pulse Pulse Resp BP BP Pulse Ox 12/03/18 15:42 97.5 F L 73 18 144/71 97 12/03/18 15:32 97.8 F 73 18 122/75 96 12/03/18 11:40 98.3 F 79 18 106/54 96 12/03/18 08:25 98.2 F 88 18 125/75 97 12/03/18 04:00 75 17 125/60 95 12/03/18 03:34 70 17 12/03/18 02:22 97.1 F L 70 17 127/59 95 12/03/18 02:09 97.1 F L 79 17 125/71 12/03/18 01:29 97.8 F 83 18 111/70 95 12/03/18 01:27 97.8 F 83 18 111/70 95 12/03/18 01:01 98.7 F 78 18 123/68 92 L 12/03/18 00:31 98.6 F 71 18 112/69 92 L 12/03/18 00:21 98 F 82 18 110/70 92 L 12/03/18 00:18 98.7 F 84 18 122/67 92 L 12/02/18 23:03 80 18 121/72 94 L 12/02/18 21:10 82 18 119/66 99 12/02/18 20:00 98 F 98 20 115/68 98 Intake and Output 12/03/18 12/03/1819 06:59 14:59 22:59 Intake Total 950 0 Output Total 300 325 Balance 650 -325 0 Intake: Intake, IV Titration 640 Amount Sodium Chloride 0.9% 1, 640 000 ml @ 125 mls/hr IV . Q8H [facility] Rx#:[id number] Blood Product 310 0 Rc As-1 Unit 310 [id number] Rc As-3 Unit 0 [id number] Output: Urine 300 325 Other: Voiding Method Urinal # Voids 1 Weight 86.6 kg On physical examination, patient appears comfortable in no apparent distress. HEAD: Normocephalic, atraumatic. EYES: No scleral icterus. No conjunctival injection. MOUTH: No lesions, tongue midline. NECK: Trachea midline, no gross abnormalities. CHEST: Decreased air entry bilaterally. HEART: Regular rate and rhythm. ABDOMEN: Soft, obese and distended with positive fluid wave. Bowel sounds are positive. No organomegaly. No guarding or rigidity. EXTREMITIES: No pedal edema. SKIN: No rashes, no jaundice. NEUROLOGIC: Alert and oriented x2, no asterixis appreciated. No focal deficits. Results CBC & Chem 7: 12/03/18 05:59 12/03/18 05:59 Labs: Abnormal Lab Results - Last 24 Hours (Table) 12/02/18 12/02/18 12/02/18 Range/Units 21:06 21:06 21:06 WBC (3.8-10.6) k/uL RBC 2.46 L (4.30-5.90) m/uL Hgb 6.1 L* (13.0-17.5) gm/dL Hct 20.9 L (39.0-53.0) % MCHC 29.4 L (31.0-37.0) g/dL RDW 19.6 H (11.5-15.5) % Plt Count 147 L (150-450) k/uL Lymphocytes # (Manual) (1.0-4.8) k/uL Myelocytes # (Manual) 0.05 H (0) k/uL Chloride 113 H (98-107) mmol/L Carbon Dioxide 16 L (22-30) mmol/L BUN 8 L (9-20) mg/dL Creatinine 0.55 L (0.66-1.25) mg/dL Glucose 116 H (74-99) mg/dL Calcium 8.0 L (8.4-10.2) mg/dL AST 61 H (17-59) U/L Albumin 3.1 L (3.5-5.0) g/dL Crossmatch See Detail 12/03/18 12/03/18 Range/Units 05:59 05:59 WBC 3.5 L (3.8-10.6) k/uL RBC 2.69 L (4.30-5.90) m/uL Hgb 6.9 L* (13.0-17.5) gm/dL Hct 23.5 L (39.0-53.0) % MCHC 29.5 L (31.0-37.0) g/dL RDW 19.8 H (11.5-15.5) % Plt Count 116 L (150-450) k/uL Lymphocytes # (Manual) 0.74 L (1.0-4.8) k/uL Myelocytes # (Manual) (0) k/uL Chloride 115 H (98-107) mmol/L Carbon Dioxide 19 L (22-30) mmol/L BUN 7 L (9-20) mg/dL Creatinine 0.54 L (0.66-1.25) mg/dL Glucose (74-99) mg/dL Calcium 7.6 L (8.4-10.2) mg/dL AST (17-59) U/L Albumin (3.5-5.0) g/dL Crossmatch Assessment and Plan (1) GI bleed Narrative/Plan: 43-year-old male with a known history of decompensated alcoholic cirrhosis with findings of varices on prior EGDs and 08/2018 and 09/2018 at which time the patient presented with similar complaints of coffee-ground emesis and melena. The patient continues to consume alcohol and has not followed up after discharge. Found to be anemic on presentation with hemoglobin of 6.1, currently 6.9 after transfusion of 1 unit. Plan is for repeat EGD. Current Visit: Yes Status: Acute Code(s): K92.2 - GASTROINTESTINAL HEMOR RHAGE, UNSPECIFIED SNOMED Code(s): 43165175 (2) ETOH abuse Current Visit: Yes Status: Acute Code(s): F10.10 - ALCOHOL ABUSE, UNCOMPLICATED SNOMED Code(s): 53230905 (3) Acute blood loss anemia Current Visit: No Status: Acute Code(s): D62 - ACUTE POSTHEMORRHAGIC ANEMIA SNOMED Code(s): 673691952 (4) Esophageal varices Current Visit: No Status: Acute Code(s): I85.00 - ESOPHAGEAL VARICES WITHOUT BLEEDING SNOMED Code(s): 58522833 (5) Melena Current Visit: No Status: Acute Code(s): K92.1 - MELENA SNOMED Code(s): 7203054 Plan: Supportive care Nothing by mouth Continue to monitor hemoglobin and transfuse as needed Alcohol abstinence Continue Protonix 40 mg twice a day IV Ceftriaxone for SBP prophylaxis Octreotide recommended in the setting of previous variceal bleeds EGD plan for tomorrow Thank you for allowing us to participate. Patient we will continue to follow
[2018-12-04] MEDS: SODIUM CHLORIDE 0.9% 1,000 ML IV SCH ×3 (01:20→17:44)
[2018-12-04] MEDS: MORPHINE SULFATE 2 MG/ML SYRINGE IVP PRN ×4 (03:08→21:40)
[2018-12-04 04:03] LABS: Anisocytosis Slight; HCT 25.2 % (39.0-53.0); HGB 7.8 gm/dL (13.0-17.5); Hypochromasia Marked; MCH 26.7 pg (25.0-35.0); MCHC 30.9 g/dL (31.0-37.0); MCV 86.5 fL (80.0-100.0); Mean Platelet Volume 8.9; Platelet Count 100 k/uL (150-450); Poikilocytosis Marked; RBC 2.91 m/uL (4.30-5.90); RDW 18.3 % (11.5-15.5); WBC 3.8 k/uL (3.8-10.6)
[2018-12-04 04:20] LABS: Eosinophils # (M) 0.11 k/uL (0-0.7); Lymphocytes # (M) 0.91 k/uL (1.0-4.8); Monocytes # (M) 0.38 k/uL (0-1.0); Neutrophils % (M) 63 %; Nucleated Red Blood Cells 0 /100 WBC (0-0); Total Cells Counted 100
[2018-12-04] MEDS: THIAMINE 100 MG TAB PO SCH ×2 (06:11→17:44)
--- NOTE | 2018-12-04 08:14 | P.PN ---
Subjective Progress Note Date: 12/04/18 Principal diagnosis: Alcoholic liver disease, GI bleed, blood loss anemia, esophageal varices by history Patient was transfused second unit packed red cells, nothing by mouth. EGD tomorrow, patient currently stable Objective - Vital Signs Vital signs: Vital Signs Temp 98.6 F 12/04/18 06:07 Pulse 79 12/04/18 06:07 Resp 17 12/04/18 06:07 BP 140/65 12/04/18 03:22 Pulse Ox 97 12/04/18 06:07 Intake & Output 12/03/18 12/04/18 12/04/18 18:59 06:59 18:59 Intake Total 310 2450 Output Total 325 600 Balance -15 1850 Weight 86.4 kg Intake: Intake, IV Titration 1550 Amount Sodium Chloride 0.9% 1, 1500 000 ml @ 125 mls/hr IV . Q8H [facility] Rx#:[id number] cefTRIAXone 1 gm In 50 Sodium Chloride 0.9% 50 ml @ 100 mls/hr IVPB Q24HR [facility] Rx#:[id number] Oral 900 Blood Product 310 Rc As-3 Unit 310 [id number] Output: Urine 325 600 Other: Voiding Method Urinal # Voids 1 - Exam General: [Patient awake, alert and oriented times 3. Patient in no acute distress.] HEENT: [PERRL. EOMI. No pharyngeal erythema or exudate.] Neck: [No adenopathy.] Cardiac: [Heart regular in rate and rhythm. No S3. No S4. No clicks, rubs. No murmur.] Lungs: [Clear to auscultation bilaterally.] Abdomen: [No mass. No organomegaly. Bowel sounds presnt and normoactive in all 4 quadrants.] Extremes: [No edema no cyanosis no claudication normal pulses] : [] Musculoskeletal: [No joint erythema, edema or tenderness.] Skin: [No rash.] Neurologic: [No lateralizing deficits. CN II - XII grossly intact.] Lymphatic: [No adenopathy.] - Labs CBC & Chem 7: 12/04/18 03:26 12/03/18 05:59 Labs: Abnormal Lab Results - Last 24 Hours (Table) 12/02/18 12/03/18 12/04/18 Range/Units 21:06 05:59 03:26 WBC 3.5 L (3.8-10.6) k/uL RBC 2.69 L 2.91 L (4.30-5.90) m/uL Hgb 6.9 L* 7.8 L (13.0-17.5) gm/dL Hct 23.5 L 25.2 L (39.0-53.0) % MCHC 29.5 L 30.9 L (31.0-37.0) g/dL RDW 19.8 H 18.3 H (11.5-15.5) % Plt Count 116 L 100 L (150-450) k/uL Lymphocytes # (Manual) 0.74 L 0.91 L (1.0-4.8) k/uL Crossmatch See Detail Assessment and Plan (1) Anemia Current Visit: Yes Status: Acute Code(s): D64.9 - ANEMIA, UNSPECIFIED SNOMED Code(s): 682239707 (2) ETOH abuse Current Visit: Yes Status: Acute Code(s): F10.10 - ALCOHOL ABUSE, UNCOMPLICATED SNOMED Code(s): 39649200 (3) GI bleed Current Visit: Yes Status: Acute Code(s): K92.2 - GASTROINTESTINAL HEMORRHAGE, UNSPECIFIED SNOMED Code(s): 06132427 (4) Abdominal pain Current Visit: No Status: Acute Code(s): R10.9 - UNSPECIFIED ABDOMINAL PAIN SNOMED Code(s): 18544840 (5) Acute alcoholic pancreatitis Current Visit: No Status: Acute Code(s): K85.20 - ALCOHOL INDUCED ACUTE PANCREATITIS WITHOUT NECROSIS OR INFCT SNOMED Code(s): 233450825 Plan: history of alcoholic cirrhosis Recent history of acute pancreatitis no no elevated amylase and lipase documented today Patient states the has not in drinking the last 3 days states that prior to that [place] and had 1 or 2 beers over the course of the week Patient was transfused 1 unit of packed red cells in the emergency room for a hemoglobin of 6.9 We'll transfuse second unit GI consult was obtained Gen. surgery evaluation also was obtained IV fluid infusion NPO , EGD tomorrow We'll continue to follow closely Time with Patient: Greater than 30
[2018-12-04] MEDS: MULTIVITAMINS, THERA 1 EACH TAB PO SCH (09:37)
[2018-12-04] MEDS: PANTOPRAZOLE 40 MG/10 ML VIAL IV SCH (09:37)
[2018-12-04 10:10] LABS: African American GFR (CKD) >90 (>60 ml/min/1.73 sqM); Anion Gap 6 mmol/L; Blood Urea Nitrogen 7 mg/dL (9-20); Calcium 7.6 mg/dL (8.4-10.2); Carbon Dioxide 18 mmol/L (22-30); Chloride 114 mmol/L (98-107); Glucose 85 mg/dL (74-99); Potassium 3.6 mmol/L (3.5-5.1); Sodium 138 mmol/L (137-145)
[2018-12-04 10:39] LABS: Anisocytosis Slight; HGB 7.5 gm/dL (13.0-17.5); Hypochromasia Marked; MCH 25.6 pg (25.0-35.0); MCHC 30.1 g/dL (31.0-37.0); Mean Platelet Volume 8.3; Platelet Count 102 k/uL (150-450); Poikilocytosis Moderate; RBC 2.94 m/uL (4.30-5.90); RDW 19.1 % (11.5-15.5); WBC 3.7 k/uL (3.8-10.6)
[2018-12-04] MEDS: HYDROcodone/APAP 5-325MG 1 EACH TAB PO PRN ×2 (11:42→20:27)
[2018-12-04] MEDS: FOLIC ACID 1 MG TAB PO SCH (11:46)
[2018-12-04 11:48] LABS: Basophils # (M) 0.07 k/uL (0-0.2); Lymphocytes # (M) 0.78 k/uL (1.0-4.8); Monocytes # (M) 0.44 k/uL (0-1.0); Neutrophils % (M) 57 %; Nucleated Red Blood Cells 0 /100 WBC (0-0); Total Cells Counted 100
[2018-12-04] MEDS ORDERED: LIDOCAINE 1% INJ 10MG/ML (20 ML MDV) ONE (14:12)
[2018-12-04] MEDS ORDERED: PROPOFOL 10 MG/ML 20 ML VIAL IV ONE (14:12)
[2018-12-04] MEDS ORDERED: IV FLUID CONTINUATION 700 ML IV ONE (14:14)
--- NOTE | 2018-12-04 14:39 | P.PCN ---
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 The patient reports multiple episodes of coffee- ground emesis prior to presentation. In addition he reports that over the past few days stool has been black and tarry. No bowel movements or vomiting since presentation. Initially patient's hemoglobin was found to be 6.1 and subsequently 6.9 after transfusion. Liver enzymes were significant for a total bilirubin 0.9, alkaline phosphatase 116, AST 61 and ALT 25. The patient has undergone EGD for evaluation of similar symptoms in the past, with varices noted on EGDs in both 08/2018 and a 09/2018 at which time banding was performed. Currently patient remains normotensive with no further episodes of GI bleeding since presentation. PROCEDURE PERFORMED: Esophagogastroduodenoscopy with variceal banding. PREOPERATIVE DIAGNOSIS: Upper GI bleed, history of varices, anemia acute blood loss. ESTIMATED BLOOD LOSS: Minimal. IV sedation per anesthesia. PROCEDURE: After informed consent was obtained, the patient was brought into the endoscopy unit. IV sedation was administered by Anesthesia under continuous monitoring. Initially the Olympus GIF-190 video endoscope was inserted into the mouth. Esophagus intubated without any difficulty. It was gradually advanced into the stomach and duodenum and carefully examined. The bulb and the second part of the duodenum appeared normal. The scope at this time was withdrawn to the stomach, adequately insufflated with air, and upon careful examination, mucosa of the antrum, body, cardia and the fundus appeared grossly normal with no old blood or active blood seen. There was evidence of portal hypertensive gastropathy in the cardia, fundus and body of the stomach. No active bleeding in the stomach was noted. The scope was then withdrawn into the esophagus. The GE junction was located at 40 cm from the incisors. Varices were noted in the distal esophagus just above the GE junction, without any stigmata with 6 varices in a spiral fashion starting from the distal esophagus and moving proximally. The patient tolerated the procedure well. IMPRESSION: 1. Variceal band ligation with 6 bands placed over varices in the distal esophagus. 2. No active bleeding, or old blood noted. RECOMMENDATIONS: The findings of this examination were discussed with the patient. Okay for liquids. Continue Protonix IV. Continue ceftriaxone 1 g daily. Continue to monitor for signs or symptoms of GI bleeding. Recommend alcohol abstinence. Monitor for alcohol withdrawal.
[2018-12-04 17:35] LABS: Anisocytosis Slight; HCT 29.7 % (39.0-53.0); HGB 8.5 gm/dL (13.0-17.5); Hypochromasia Marked; MCH 25.6 pg (25.0-35.0); MCHC 28.7 g/dL (31.0-37.0); MCV 89.2 fL (80.0-100.0); Platelet Count 126 k/uL (150-450); Poikilocytosis Moderate; RBC 3.33 m/uL (4.30-5.90); WBC 5.7 k/uL (3.8-10.6)
[2018-12-04] MEDS: NICOTINE 21MG/24HR PATCH TRANSDERM SCH (17:44)
[2018-12-04 18:27] LABS: Lymphocytes # (M) 1.37 k/uL (1.0-4.8); Monocytes # (M) 0.46 k/uL (0-1.0); Neutrophils % (M) 68 %; Nucleated Red Blood Cells 0 /100 WBC (0-0); Total Cells Counted 100
[2018-12-04 23:04] LABS: Anisocytosis Slight; Basophils % (A) 1 %; Eosinophils # (A) 0.1 k/uL (0-0.7); Eosinophils % (A) 2 %; HCT 27.1 % (39.0-53.0); HGB 8.2 gm/dL (13.0-17.5); Hypochromasia Marked; Lymphocytes # (A) 0.5 k/uL (1.0-4.8); Lymphocytes % (A) 12 %; MCH 25.3 pg (25.0-35.0); MCHC 30.1 g/dL (31.0-37.0); Mean Platelet Volume 8.6; Microcytosis Slight; Monocytes # (A) 0.4 k/uL (0-1.0); Monocytes % (A) 11 %; Neutrophils # (A) 2.9 k/uL (1.3-7.7); Neutrophils % (A) 71 %; Platelet Count 108 k/uL (150-450); Poikilocytosis Moderate; RBC 3.23 m/uL (4.30-5.90); RDW 19.2 % (11.5-15.5); WBC 4.1 k/uL (3.8-10.6)
[2018-12-04 23:05] LABS: MCV 84.1 fL (80.0-100.0)
[2018-12-05] MEDS: HYDROcodone/APAP 5-325MG 1 EACH TAB PO PRN ×4 (01:02→20:40)
[2018-12-05] MEDS: SODIUM CHLORIDE 0.9% 1,000 ML IV SCH ×3 (01:03→17:24)
[2018-12-05] MEDS: MORPHINE SULFATE 2 MG/ML SYRINGE IVP PRN ×4 (04:04→22:02)
[2018-12-05] MEDS: THIAMINE 100 MG TAB PO SCH ×2 (06:21→15:48)
[2018-12-05 07:24] LABS: Anisocytosis Slight; Basophils % (A) 1 %; Eosinophils # (A) 0.2 k/uL (0-0.7); Eosinophils % (A) 4 %; HCT 27.6 % (39.0-53.0); Hypochromasia Marked; Lymphocytes # (A) 0.7 k/uL (1.0-4.8); Lymphocytes % (A) 15 %; MCHC 28.8 g/dL (31.0-37.0); MCV 86.8 fL (80.0-100.0); Mean Platelet Volume 8.5; Monocytes # (A) 0.5 k/uL (0-1.0); Monocytes % (A) 10 %; Neutrophils # (A) 3.1 k/uL (1.3-7.7); Neutrophils % (A) 66 %; Platelet Count 119 k/uL (150-450); Poikilocytosis Moderate; RBC 3.18 m/uL (4.30-5.90); RDW 19.2 % (11.5-15.5); WBC 4.8 k/uL (3.8-10.6)
[2018-12-05 07:43] LABS: African American GFR (CKD) >90 (>60 ml/min/1.73 sqM); Anion Gap 9 mmol/L; Blood Urea Nitrogen 4 mg/dL (9-20); Calcium 7.5 mg/dL (8.4-10.2); Carbon Dioxide 16 mmol/L (22-30); Chloride 112 mmol/L (98-107); Glucose 112 mg/dL (74-99); Potassium 3.2 mmol/L (3.5-5.1); Sodium 137 mmol/L (137-145)
[2018-12-05] MEDS: MULTIVITAMINS, THERA 1 EACH TAB PO SCH (09:41)
[2018-12-05] MEDS: NICOTINE 21MG/24HR PATCH TRANSDERM SCH (09:41)
[2018-12-05] MEDS: PANTOPRAZOLE 40 MG/10 ML VIAL IV SCH (09:41)
--- NOTE | 2018-12-05 09:44 | P.PN ---
Subjective Progress Note Date: 12/05/18 Principal diagnosis: GI bleed Status post EGD variceal banding yesterday. No active GI bleeding. Reports abdominal distention with a history of ascites. Hemoglobin 8 stable. Platelet 119. Objective - Vital Signs Vital signs: Vital Signs Temp 98.3 F 12/05/18 08:00 Pulse 75 12/05/18 08:00 Resp 16 12/05/18 08:00 BP 133/79 12/05/18 08:00 Pulse Ox 100 12/05/18 08:00 Intake & Output 12/04/18 12/05/18 12/05/18 18:59 06:59 18:59 Intake Total 660 2300 900 Output Total 550 Balance 110 2300 900 Weight 87.4 kg Intake: IV 300 Intake, IV Titration 1500 Amount Sodium Chloride 0.9% 1, 1500 000 ml @ 125 mls/hr IV . Q8H [facility] Rx#:[id number] Oral 360 800 900 Output: Urine 550 Other: Voiding Method Urinal # Voids 1 3 - Exam General appearance: The patient is alert, oriented, in no acute distress. HET: Head is normocephalic and atraumatic. Pupils are equal and reactive. Oropharynx is clear without lesions. Neck: Supple without lymphadenopathy. Trachea midline. Heart: S1 S2. Regular rate and rhythm. Lungs: No crackles or wheezes are heard. Abdomen: Soft, nontender, distended with ascites with bowel sounds. No peritoneal signs. No palpable organomegaly or masses. Extremities: Normal skin color and turgor. No cyanosis, rash, ulceration, clubbing, or edema. Radial and pedal pulses are 2/4 bilaterally. Neurological: No focal deficits. Strength and sensation are grossly intact. - Labs CBC & Chem 7: 12/06/18 05:54 12/06/18 05:54 Labs: Abnormal Lab Results - Last 24 Hours (Table) 12/02/18 12/04/18 12/04/18 Range/Units 21:06 09:25 09:25 WBC 3.7 L (3.8-10.6) k/uL RBC 2.94 L (4.30-5.90) m/uL Hgb 7.5 L (13.0-17.5) gm/dL Hct 25.0 L (39.0-53.0) % MCHC 30.1 L (31.0-37.0) g/dL RDW 19.1 H (11.5-15.5) % Plt Count 102 L (150-450) k/uL Lymphocytes # (1.0-4.8) k/uL Lymphocytes # (Manual) 0.78 L (1.0-4.8) k/uL Potassium (3.5-5.1) mmol/L Chloride 114 H (98-107) mmol/L Carbon Dioxide 18 L (22-30) mmol/L BUN 7 L (9-20) mg/dL Creatinine 0.50 L (0.66-1.25) mg/dL Glucose (74-99) mg/dL Calcium 7.6 L (8.4-10.2) mg/dL Crossmatch See Detail 12/04/18 12/04/18 12/05/18 Range/Units 16:21 22:48 06:56 WBC (3.8-10.6) k/uL RBC 3.33 L 3.23 L 3.18 L (4.30-5.90) m/uL Hgb 8.5 L 8.2 L 8.0 L (13.0-17.5) gm/dL Hct 29.7 L 27.1 L 27.6 L (39.0-53.0) % MCHC 28.7 L 30.1 L 28.8 L (31.0-37.0) g/dL RDW 19.0 H 19.2 H 19.2 H (11.5-15.5) % Plt Count 126 L 108 L 119 L (150-450) k/uL Lymphocytes # 0.5 L 0.7 L (1.0-4.8) k/uL Lymphocytes # (Manual) (1.0-4.8) k/uL Potassium (3.5-5.1) mmol/L Chloride (98-107) mmol/L Carbon Dioxide (22-30) mmol/L BUN (9-20) mg/dL Creatinine (0.66-1.25) mg/dL Glucose (74-99) mg/dL Calcium (8.4-10.2) mg/dL Crossmatch 12/05/18 Range/Units 06:56 WBC (3.8-10.6) k/uL RBC (4.30-5.90) m/uL Hgb (13.0-17.5) gm/dL Hct (39.0-53.0) % MCHC (31.0-37.0) g/dL RDW (11.5-15.5) % Plt Count (150-450) k/uL Lymphocytes # (1.0-4.8) k/uL Lymphocytes # (Manual) (1.0-4.8) k/uL Potassium 3.2 L (3.5-5.1) mmol/L Chloride 112 H (98-107) mmol/L Carbon Dioxide 16 L (22-30) mmol/L BUN 4 L (9-20) mg/dL Creatinine 0.48 L (0.66-1.25) mg/dL Glucose 112 H (74-99) mg/dL Calcium 7.5 L (8.4-10.2) mg/dL Crossmatch Assessment and Plan (1) GI bleed Current Visit: Yes Status: Acute Code(s): K92.2 - GASTROINTESTINAL HEMORRHAGE, UNSPECIFIED SNOMED Code(s): 80367646 (2) Acute blood loss anemia Current Visit: Yes Status: Acute Code(s): D62 - ACUTE POSTHEMORRHAGIC ANEMIA SNOMED Code(s): 380708200 (3) Melena Current Visit: Yes Status: Acute Code(s): K92.1 - MELENA SNOMED Code(s): 1801293 (4) Esophageal varices Current Visit: Yes Status: Acute Code(s): I85.00 - ESOPHAGEAL VARICES WITHOUT BLEEDING SNOMED Code(s): 35736950 (5) ETOH abuse Current Visit: Yes Status: Acute Code(s): F10.10 - ALCOHOL ABUSE, UNCOMPLICATED SNOMED Code(s): 87771133 (6) Alcoholic cirrhosis of liver with ascites Current Visit: No Status: Acute Code(s): K70.31 - ALCOHOLIC CIRRHOSIS OF LIVER WITH ASCITES SNOMED Code(s): 175031673 (7) Decompensated liver disease Current Visit: Yes Status: Acute Code(s): K74.69 - OTHER CIRRHOSIS OF LIVER SNOMED Code(s): 98891691 Plan: 1. Ultrasound assess for ascites paracentesis requested. Full liquid diet. CBC monitor. Protonix 40 mg twice daily. Continue with Rocephin. Patient can be discharged after paracentesis is completed follow up in GI office in 3-4 weeks. Low-salt diet. Assessment and plan a care discussed with Dr. Harrington
[2018-12-05] MEDS ORDERED: Potassium Replacement Protocol 1 EACH MISC MISCELLANE PRN (09:58)
[2018-12-05 11:07] LABS: INR 1.4 (<1.2); Prothrombin Time 14.1 sec (9.0-12.0)
[2018-12-05] MEDS: FOLIC ACID 1 MG TAB PO SCH (12:02)
[2018-12-05] MEDS: POTASSIUM CHLORIDE ER 20 MEQ TAB.ER PO SCH ×4 (12:03→18:23)
--- NOTE | 2018-12-05 17:02 | US ---
EXAMINATION TYPE: US abdomen limited DATE OF EXAM: 12/05/2018 COMPARISON: NONE CLINICAL HISTORY: ascites. distention Moderate amount of fluid with internal debris seen. IMPRESSION: Moderate ascites. Limited exam.
--- NOTE | 2018-12-05 17:48 | P.PN ---
Subjective Patient is a 44-year-old male well-known to the practice history of alcoholic cirrhosis esophageal varices who presents with complaint that of coffee-ground emesis earlier in the day. Patient also complains of dark tarry stools over the last couple of days. [place] days states he didn't drink some beer, while [place] nothing extensive.] The patient states he has not consumed any alcoholic beverages in the last 3 days at all. Denies shortness of breath denies diaphoresis denies chest pain denies palpitations complains of significant fatigue and occasional lightheadedness 12/04/2018Alcoholic liver disease, GI bleed, blood loss anemia, esophageal varices by history Patient was transfused second unit packed red cells, nothing by mouth. EGD tomorrow, patient currently stable 12/05/2018 status post EGD with variceal banding yesterday. Hemoglobin stable, 8 , platelets 119 with no further bleeding. INR 1.4. Abdominal ultrasound reporting significant ascites with paracentesis pending. K3.2. Objective - Vital Signs Vital signs: Vital Signs Temp 98.3 F 12/05/18 08:00 Pulse 75 12/05/18 08:00 Resp 16 12/05/18 08:00 BP 133/79 12/05/18 08:00 Pulse Ox 100 12/05/18 08:00 Intake & Output 12/04/18 12/05/18 12/05/18 18:59 06:59 18:59 Intake Total 660 2300 900 Output Total 550 Balance 110 2300 900 Weight 87.4 kg Intake: IV 300 Intake, IV Titration 1500 Amount Sodium Chloride 0.9% 1, 1500 000 ml @ 125 mls/hr IV . Q8H [facility] Rx#:[id number] Oral 360 800 900 Output: Urine 550 Other: Voiding Method Urinal # Voids 1 3 - Exam General: [Patient awake, alert and oriented times 3. no acute distress.] HEENT: [PERRL. EOMI. No pharyngeal erythema or exudate.] Neck: [No adenopathy.] Cardiac: [Heart regular in rate and rhythm. No S3. No S4. No clicks, rubs. No murmur.] Lungs: [Clear to auscultation bilaterally.] Abdomen: [No mass. Nontender, distended, positive ascites, no palpable masses or organomegaly. Bowel sounds presnt and normoactive in all 4 quadrants.] Extremes: [No edema no cyanosis no claudication normal pulses] Musculoskeletal: [No joint erythema, edema or tenderness.] Skin: [No rash.] Neurologic: [No lateralizing deficits. CN II - XII grossly intact. No neuro deficits] Lymphatic: [No adenopathy.] - Labs CBC & Chem 7: 12/05/18 06:56 12/05/18 15:54 Labs: Abnormal Lab Results - Last 24 Hours (Table) 12/04/18 12/04/18 12/04/18 Range/Units 09:25 16:21 22:48 RBC 3.33 L 3.23 L (4.30-5.90) m/uL Hgb 8.5 L 8.2 L (13.0-17.5) gm/dL Hct 29.7 L 27.1 L (39.0-53.0) % MCHC 28.7 L 30.1 L (31.0-37.0) g/dL RDW 19.0 H 19.2 H (11.5-15.5) % Plt Count 126 L 108 L (150-450) k/uL Lymphocytes # 0.5 L (1.0-4.8) k/uL Lymphocytes # (Manual) 0.78 L (1.0-4.8) k/uL PT (9.0-12.0) sec INR (<1.2) Potassium (3.5-5.1) mmol/L Chloride (98-107) mmol/L Carbon Dioxide (22-30) mmol/L BUN (9-20) mg/dL Creatinine (0.66-1.25) mg/dL Glucose (74-99) mg/dL Calcium (8.4-10.2) mg/dL 12/05/18 12/05/18 12/05/18 Range/Units 06:56 06:56 10:38 RBC 3.18 L (4.30-5.90) m/uL Hgb 8.0 L (13.0-17.5) gm/dL Hct 27.6 L (39.0-53.0) % MCHC 28.8 L (31.0-37.0) g/dL RDW 19.2 H (11.5-15.5) % Plt Count 119 L (150-450) k/uL Lymphocytes # 0.7 L (1.0-4.8) k/uL Lymphocytes # (Manual) (1.0-4.8) k/uL PT 14.1 H (9.0-12.0) sec INR 1.4 H (<1.2) Potassium 3.2 L (3.5-5.1) mmol/L Chloride 112 H (98-107) mmol/L Carbon Dioxide 16 L (22-30) mmol/L BUN 4 L (9-20) mg/dL Creatinine 0.48 L (0.66-1.25) mg/dL Glucose 112 H (74-99) mg/dL Calcium 7.5 L (8.4-10.2) mg/dL Assessment and Plan Assessment: (1) Anemia Current Visit: Yes Status: Acute Code(s): D64.9 - ANEMIA, UNSPECIFIED SNOMED Code(s): 786203937 (2) ETOH abuse Current Visit: Yes Status: Acute Code(s): F10.10 - ALCOHOL ABUSE, UNCOMPLICATED SNOMED Code(s): 02009239 (3) GI bleed status post EGD reporting that Variceal band ligation with 6 bands placed, no active bleeding Current Visit: Yes Status: Acute Code(s): K92.2 - GASTROINTESTINAL HEMORRHAGE, UNSPECIFIED SNOMED Code(s): 88281468 (4) Abdominal pain Current Visit: No Status: Acute Code(s): R10.9 - UNSPECIFIED ABDOMINAL PAIN SNOMED Code(s): 81605903 (5) Acute alcoholic pancreatitis Current Visit: No Status: Acute Code(s): K85.20 - ALCOHOL INDUCED ACUTE PANCREATITIS WITHOUT NECROSIS OR INFCT SNOMED Code(s): 878406365 -6. Alcoholic cirrhosis and ascites, paracentesis pending -7. Recent history of acute pancreatitis -Hypokalemia Plan: Continue on current medication regime ,monitoring and symptomatic treatment. Maintain gentle IV fluid hydration, Rocephin IV, Protonix IV. Recei ving potassium supplements as per replacement protocol. Increase ambulation as tolerated. Alcohol cessation reinforced. Close monitoring for bleeding with repeat labs ordered for a.m. follow closely with GI. The impression and plan of care has been dictated as directed. : I performed a history and examination of this patient, discussed the same with the dictator. I agree with the dictator's note ,documented as a scribe. Any additional findings or plans will be noted.
[2018-12-06] MEDS: SODIUM CHLORIDE 0.9% 1,000 ML IV SCH ×3 (01:23→21:09)
[2018-12-06] MEDS: HYDROcodone/APAP 5-325MG 1 EACH TAB PO PRN ×4 (01:31→20:04)
[2018-12-06] MEDS: MORPHINE SULFATE 2 MG/ML SYRINGE IVP PRN ×2 (04:53→12:45)
[2018-12-06] MEDS: THIAMINE 100 MG TAB PO SCH ×2 (06:25→18:09)
[2018-12-06 06:47] LABS: Anisocytosis Slight; Basophils # (A) 0.1 k/uL (0-0.2); Basophils % (A) 1 %; Eosinophils # (A) 0.3 k/uL (0-0.7); Eosinophils % (A) 6 %; HCT 28.4 % (39.0-53.0); HGB 8.3 gm/dL (13.0-17.5); Hypochromasia Marked; Lymphocytes # (A) 0.9 k/uL (1.0-4.8); Lymphocytes % (A) 18 %; MCH 25.8 pg (25.0-35.0); MCHC 29.1 g/dL (31.0-37.0); MCV 88.5 fL (80.0-100.0); Mean Platelet Volume 7.9; Monocytes # (A) 0.6 k/uL (0-1.0); Monocytes % (A) 12 %; Neutrophils % (A) 59 %; Platelet Count 134 k/uL (150-450); Poikilocytosis Slight; RBC 3.21 m/uL (4.30-5.90); RDW 19.3 % (11.5-15.5); WBC 5.1 k/uL (3.8-10.6)
[2018-12-06 06:55] LABS: African American GFR (CKD) >90 (>60 ml/min/1.73 sqM); Anion Gap 8 mmol/L; Blood Urea Nitrogen 2 mg/dL (9-20); Calcium 7.9 mg/dL (8.4-10.2); Carbon Dioxide 17 mmol/L (22-30); Chloride 113 mmol/L (98-107); Glucose 97 mg/dL (74-99); Potassium 3.8 mmol/L (3.5-5.1); Sodium 138 mmol/L (137-145)
[2018-12-06] MEDS: NICOTINE 21MG/24HR PATCH TRANSDERM SCH (09:34)
[2018-12-06] MEDS: PANTOPRAZOLE 40 MG/10 ML VIAL IV SCH (09:39)
--- NOTE | 2018-12-06 12:23 | P.PN ---
Progress Note - Text Progress Note Date: 12/06/18 Attempts to evaluate earlier this morning floor for paracentesis.
[2018-12-06] MEDS: MULTIVITAMINS, THERA 1 EACH TAB PO SCH (12:45)
[2018-12-06] MEDS: FOLIC ACID 1 MG TAB PO SCH (12:45)
[2018-12-06] MEDS: ALBUMIN HUMAN 25% 50 ML in EMPTY BAG 1 BAG IVPB SCH ×4 (13:37→15:33)
--- NOTE | 2018-12-06 15:42 | US ---
EXAMINATION TYPE: US paracentesis abd w/image DATE OF EXAM: 12/06/2018 COMPARISON: NONE HISTORY: Ascites. PROCEDURE: Maximal barrier technique was utilized. The skin overlying a suitable pocket of fluid was localized with ultrasound and the overlying skin was prepped and draped. Ultrasound was utilized with sterile technique. Lidocaine was used for local anesthesia and a skin henry made with a scalpel. Catheter was advanced under direct ultrasound guidance into a suitable pocket of fluid and approximately 7.4 liter s of serous fluid were removed. Catheter was withdrawn and hemostasis achieved. There is no immedia te complication; the patient is discharged in stable condition. IMPRESSION: STATUS POST ULTRASOUND GUIDED PARACENTESIS FOR PALLIATION OF ASCITES. THIS PROCEDURE WA S PERFORMED BY THE UNDERSIGNED. Specimen obtained for laboratory analysis.
--- NOTE | 2018-12-06 16:08 | P.DS ---
Providers Date of admission: 12/03/18 00:58 Expected date of discharge: 12/06/18 Attending physician: James Meza Consults: 12/03/18 00:59 Consult Physician Routine Consulting Provider: Epifanio Harrington Consult Reason/Comments: GI Bleeding Do you want consulting provider notified?: Yes Primary care physician: [facility] Course: Final Diagnoses: (1) Anemia Current Visit: Yes Status: Acute Code(s): D64.9 - ANEMIA, UNSPECIFIED SNOMED Code(s): 534910357 (2) ETOH abuse Current Visit: Yes Status: Acute Code(s): F10.10 - ALCOHOL ABUSE, UNCOMPLICATED SNOMED Code(s): 10085176 (3) GI bleed status post EGD reporting that Variceal band ligation with 6 bands placed, no active bleeding Current Visit: Yes Status: Acute Code(s): K92.2 - GASTROINTESTINAL HEMORRHAGE, UNSPECIFIED SNOMED Code(s): 77064575 (4) Abdominal pain, Current Visit: No Status: Acute Code(s): R10.9 - UNSPECIFIED ABDOMINAL PAIN SNOMED Code(s): 09800800 (5) Acute alcoholic pancreatitis Current Visit: No Status: Acute Code(s): K85.20 - ALCOHOL INDUCED ACUTE PANCREATITIS WITHOUT NECROSIS OR INFCT SNOMED Code(s): 991393742 -6. Alcoholic cirrhosis and ascites, status post large volume paracentesis, 7.4 L -7. Recent history of acute pancreatitis Hospital course:Patient is a 44-year-old male well-known to the practice history of alcoholic cirrhosis esophageal varices who presents with complaint that of coffee-ground emesis earlier in the day. Patient also complains of dark tarry stools over the last couple of days. [place] [facility] [place] days states he didn't drink some beer, [place] The patient states he has not consumed any alcoholic beverages in the last 3 days at all. Denies shortness of breath denies diaphoresis denies chest pain denies palpitations complains of significant fatigue and occasional lightheadedness 12/04/2018Alcoholic liver disease, GI bleed, blood loss anemia, esophageal varices by history Patient was transfused second unit packed red cells, nothing by mouth. EGD tomorrow, patient currently stable 12/05/2018 status post EGD with variceal banding yesterday. Hemoglobin stable, 8 , platelets 119 with no further bleeding. INR 1.4. Abdominal ultrasound reporting significant ascites with paracentesis pending. K3.2. Status post paracentesis, 7.4 L, tolerated procedure well. Receiving albumin postprocedure. Vital signs stable. Denies lightheadedness dizziness or focal deficits. No chest pain, palpitations or shortness of breath. Significant clinical improvement. Cleared by GI for discharge. She is being discharged home in a stable condition with guarded prognosis. - Exam General: alert and oriented times 3. no acute distress.] Cardiac: [Heart regular in rate and rhythm. No S3. No S4. No clicks, rubs. No murmur.] Lungs: [Clear to auscultation bilaterally.] Abdomen: [Soft, nondistended, Nontender,no palpable masses or organomegaly. Bowel sounds present. Neurologic: No neuro deficits] The impression and plan of care has been dictated as directed. : I performed a history and examination of this patient, discussed the same with the dictator. I agree with the dictator's note ,documented as a scribe. Any additional findings or plans will be noted. Time taken: 35 minutes. Patient Condition at Discharge: Stable Plan - Discharge Summary Discharge Rx Participant: No New Discharge Prescriptions: New Nicotine 21Mg/24Hr Patch [Habitrol] 1 patch TRANSDERM DAILY #30 patch Spironolactone [Aldactone] 100 mg PO DAILY #30 tab Propranolol [Inderal] 10 mg PO TID #90 tab Furosemide [Lasix] 40 mg PO BID #60 tablet Pantoprazole Sodium [Protonix] 40 mg PO DAILY #30 tablet. Continue Folic Acid 1 mg PO DAILY@1200 Multivitamins, Thera [Multivitamin (formulary)] 1 tab PO DAILY #30 tablet Thiamine [Vitamin B-1] 100 mg PO DAILY #30 tablet Discharge Medication List Folic Acid 1 mg PO DAILY@1200 09/01/17 [History] Multivitamins, Thera [Multivitamin (formulary)] 1 tab PO DAILY #30 tablet 09/03/17 [Rx] Thiamine [Vitamin B-1] 100 mg PO DAILY #30 tablet 09/03/17 [Rx] Furosemide [Lasix] 40 mg PO BID #60 tablet 12/06/18 [Rx] Nicotine 21Mg/24Hr Patch [Habitrol] 1 patch TRANSDERM DAILY #30 patch 12/06/18 [Rx] Pantoprazole Sodium [Protonix] 40 mg PO DAILY #30 tablet. 12/06/18 [Rx] Propranolol [Inderal] 10 mg PO TID #90 tab 12/06/18 [Rx] Spironolactone [Aldactone] 100 mg PO DAILY #30 tab 12/06/18 [Rx] Follow up Appointment(s)/Referral(s): James Meza Jr, DO [Primary Care Provider] - 3 Days Epifanio Harrington MD [STAFF PHYSICIAN] - 4 Weeks Ambulatory/Diagnostic Orders: Complete Blood Count w/diff [LAB.AMB] Time Frame: 3 Days, Location: None Selected Activity/Diet/Wound Care/Special Instructions: No antibiotics, continue on: Spironolactone [Aldactone] 100 mg PO DAILY #30 tab Propranolol [Inderal] 10 mg PO TID #90 tab Furosemide [Lasix] 40 mg PO BID #60 tablet Pantoprazole Sodium [Protonix] 40 mg PO DAILY #30 tablet.dr as per GI No ETOH
[2018-12-06 20:07] VITALS: PULSE 75
[2018-12-07] MEDS: HYDROcodone/APAP 5-325MG 1 EACH TAB PO PRN ×3 (01:47→14:22)
[2018-12-07] MEDS: THIAMINE 100 MG TAB PO SCH ×2 (06:34→14:22)
[2018-12-07] MEDS: PANTOPRAZOLE 40 MG/10 ML VIAL IV SCH (07:48)
[2018-12-07] MEDS: NICOTINE 21MG/24HR PATCH TRANSDERM SCH (07:57)
[2018-12-07] MEDS: MULTIVITAMINS, THERA 1 EACH TAB PO SCH (07:57)
[2018-12-07] MEDS: FOLIC ACID 1 MG TAB PO SCH (07:57)
[2018-12-07] MEDS ORDERED: PANTOPRAZOLE 40 MG TABLET PO STA (08:53)
[2018-12-07 10:28] VITALS: BP 129/70; RESP 20; TEMP 98.3
[2018-12-07] MEDS: SODIUM CHLORIDE 0.9% 1,000 ML IV SCH (10:51)
== END 2018-12-07 15:04 | disposition home or self-care (01) | DRG 432 ==
LOC: EC 19:32 → 3SCARD 12-03 00:58
PROVIDERS: ADMIT Family Medicine; ATTEND Family Medicine
PROC: 30233N1 Transfusion of Nonautologous Red Blood Cells into Peripheral Vein, Percutaneous Approach (ICD-10-PCS; 2018-12-03)
PROC: 06L38CZ Occlusion of Esophageal Vein with Extraluminal Device, Via Natural or Artificial Opening Endoscopic (ICD-10-PCS; principal; 2018-12-04 14:00)
PROC: 0W9G3ZX Drainage of Peritoneal Cavity, Percutaneous Approach, Diagnostic (ICD-10-PCS; 2018-12-06)
DX: K70.31 Alcoholic cirrhosis of liver with ascites (principal); I85.11 Secondary esophageal varices with bleeding; K85.20 Alcohol induced acute pancreatitis without necrosis or infection; D62 Acute posthemorrhagic anemia; K76.6 Portal hypertension; Y90.0 Blood alcohol level of less than 20 mg/100 ml; E87.6 Hypokalemia; F17.210 Nicotine dependence, cigarettes, uncomplicated; F43.10 Post-traumatic stress disorder, unspecified; J45.909 Unspecified asthma, uncomplicated; K31.89 Other diseases of stomach and duodenum; Z82.49 Family history of ischemic heart disease and other diseases of the circulatory system; Z87.442 Personal history of urinary calculi; Z90.49 Acquired absence of other specified parts of digestive tract; Z84.2 Family history of other diseases of the genitourinary system; Z86.14 Personal history of Methicillin resistant Staphylococcus aureus infection; F10.10 Alcohol abuse, uncomplicated
CPT/HCPCS: 36415; 43244; 49083; 76705; 80048; 80053; 80320; 83605; 84132; 84484; 85025; 85610; 85730; 86850; 86900; 86901; 86902; 86920; 96372; 96374; 99285

== ENCOUNTER 2018-12-14 02:05 | Inpatient (IN) | payer OTHER ==
[2018-12-14] MEDS ORDERED: ONDANSETRON 4 MG/2 ML VIAL IVP STA (02:28)
[2018-12-14] MEDS ORDERED: SODIUM CHLORIDE 0.9% 500 ML 500 ML IV STA (02:28)
[2018-12-14] MEDS ORDERED: HYDROmorphone 1 MG/ML 1 ML SYRINGE IVP STA (02:28)
--- NOTE | 2018-12-14 03:43 | ED ---
Abdominal Pain HPI - General Source: patient Mode of arrival: wheelchair Limitations: no limitations <Allison Wise - Last Filed: 12/14/18 03:41> <Sabino De La Fuente - Last Filed: 12/14/18 07:37> - General Chief Complaint: Abdominal Pain Stated Complaint: Hernia Time Seen by Provider: 12/14/18 02:16 - History of Present Illness Initial Comments: 43-year-old male patient presents to the emergency department today for evaluation of generalized abdominal pain, especially over the umbilical region. Patient states the pain is a burning stabbing pain. Patient states this started sometime this morning but worsened significantly tonight. Patient states he has a known umbilical hernia for which she has an appointment with the surgeon tomorrow. Patient denies any constipation or diarrhea with this. Denies any hematochezia or melena. Denies fever or chills. States he does get nauseated when the pain is at its highest intensity. Denies any radiation of the pain through to his back. Does have history of GI bleed and esophageal varices, states he was admitted last week and had 20 bands placed. Patient denies any recent rash, shortness breath, chest pain, back pain, numbness, tingling, dizziness, weakness, hematuria, dysuria, urinary urgency, urinary frequency, headache, visual changes, or any other complaints. (Allison Wise) - Related Data Home Medications Medication Instructions Recorded Confirmed Folic Acid 1 mg PO DAILY@1200 09/01/17 12/02/18 Previous Rx's Medication Instructions Recorded Multivitamins, Thera [Multivitamin 1 tab PO DAILY #30 tablet 09/03/17 (formulary)] Thiamine [Vitamin B-1] 100 mg PO DAILY #30 tablet 09/03/17 Furosemide [Lasix] 40 mg PO BID #60 tablet 12/06/18 Nicotine 21Mg/24Hr Patch [Habitrol] 1 patch TRANSDERM DAILY #30 patch 12/06/18 Pantoprazole Sodium [Protonix] 40 mg PO DAILY #30 tablet. 12/06/18 Propranolol [Inderal] 10 mg PO TID #90 tab 12/06/18 Spironolactone [Aldactone] 100 mg PO DAILY #30 tab 12/06/18 Allergies Allergy/AdvReac Type Severity Reaction Status Date / Time No Known Allergies Allergy Verified 12/14/18 02:12 Review of Systems ROS Other: All systems not noted in ROS Statement are negative. <Allison Wise - Last Filed: 12/14/18 03:41> ROS Other: All systems not noted in ROS Statement are negative. <Sabino De La Fuente - Last Filed: 12/14/18 07:37> ROS Statement: Those systems with pertinent positive or pertinent negative responses have been documented in the HPI. Past Medical History Past Medical History: Asthma, GI Bleed, Liver Disease, Pneumonia Additional Past Medical History / Comment(s): ETOH abuse, liver cirrhosis, abdominal ascites, pancreatitis, multiple gallstones, nephrolithiasis, chronic anemia, esophageal varices, hx urinating blood and kidneys stone History of Any Multi-Drug Resistant Organisms: MRSA Date of last positivie culture/infection: 12/09/13 MDRO Source:: Right first finger Past Surgical History: Appendectomy, Cholecystectomy, Orthopedic Surgery Additional Past Surgical History / Comment(s): 07/09/17 EGD/colonoscopy, paracentesis, right hand tendon repair, right knee arthroscopy, cystoscopy for kidney stone removal, right hand ring finger surgery. blood transfusions. Past Anesthesia/Blood Transfusion Reactions: Previous Problems w/ Anesthesia Additional Past Anesthesia/Blood Transfusion Reaction / Comment(s): Woke up during scope procedure. Past Psychological History: PTSD Smoking Status: Current every day smoker Past Alcohol Use History: Abuse, Daily Past Drug Use History: Marijuana - Past Family History Mother Family Medical History: Hypertension Father Additional Family Medical History / Comment(s): Prostate issues. Brain aneurysm. <Allison Wise - Last Filed: 12/14/18 03:41> General Exam Limitations: no limitations General appearance: alert, in no apparent distress, other (Physical well- developed, well-nourished adult male patient in no acute distress. Vital signs upon presentation are temperature 97.7F, pulse 78, respirations 26, blood pressure 141/72, pulse ox 99% on room air.) Eye exam: Present: normal appearance, PERRL, EOMI. Absent: scleral icterus, conjunctival injection, periorbital swelling ENT exam: Present: normal exam, normal oropharynx, mucous membranes moist Respiratory exam: Present: normal lung sounds bilaterally. Absent: respiratory distress, wheezes, rales, rhonchi, stridor Cardiovascular Exam: Present: regular rate, normal rhythm, normal heart sounds. Absent: systolic murmur, diastolic murmur, rubs, gallop, clicks GI/Abdominal exam: Present: soft, tenderness (Generalized abdominal tenderness), normal bowel sounds. Absent: distended, guarding, rebound, rigid Neurological exam: Present: alert, oriented X3, CN II-XII intact Psychiatric exam: Present: normal affect, normal mood Skin exam: Present: warm, dry, intact, normal color. Absent: rash <Allison Wise - Last Filed: 12/14/18 03:41> Course Vital Signs 12/14/18 12/14/18 12/14/18 02:10 03:44 04:33 Temperature 97.7 F Pulse Rate 78 74 Respiratory 26 H 19 18 Rate Blood Pressure 141/72 142/79 139/74 O2 Sat by Pulse 99 100 98 Oximetry 12/14/18 12/14/18 05:31 06:15 Temperature 98.6 F Pulse Rate 65 61 Respiratory 18 18 Rate Blood Pressure 133/74 134/79 O2 Sat by Pulse 92 L 97 Oximetry Medical Decision Making - Lab Data Result diagrams: 12/14/18 04:00 12/14/18 04:00 <Sabino De La Fuente - Last Filed: 12/14/18 07:37> - Medical Decision Making Patient's 43-year-old man with abdominal pain, nausea and vomiting. He is found to have incarcerated umbilical hernia with developing bowel obstruction. We did attempt initially to contact his surgeon Dr. Van. We are not informed by his answering service that he is out of town. Dr. Lizarraga did respond and requests patient be admitted to his primary physician and she will see the patient in consultation. I saw this patient in conjunction with the physician educational program assistant. I performed independent history and physical exam. Agree with case management. (Sabino De La Fuente) - Lab Data Lab Results 12/14/18 12/14/18 12/14/18 Range/Units 03:42 04:00 04:00 WBC 4.1 (3.8-10.6) k/uL RBC 3.28 L (4.30-5.90) m/uL Hgb 8.3 L (13.0-17.5) gm/dL Hct 29.0 L (39.0-53.0) % MCV 88.4 (80.0-100.0) fL MCH 25.2 (25.0-35.0) pg MCHC 28.5 L (31.0-37.0) g/dL RDW 19.5 H (11.5-15.5) % Plt Count 158 (150-450) k/uL Neutrophils % (Manual) 64 % Lymphocytes % (Manual) 29 % Eosinophils % (Manual) 7 % Neutrophils # (Manual) 2.62 (1.3-7.7) k/uL Lymphocytes # (Manual) 1.19 (1.0-4.8) k/uL Eosinophils # (Manual) 0.29 (0-0.7) k/uL Nucleated RBCs 0 (0-0) /100 WBC Manual Slide Review Performed Hypochromasia Marked Hypochromasia (manual) Present Poikilocytosis Slight Poikilocytosis (manual Present Anisocytosis Slight Anisocytosis (manual) Present PT (9.0-12.0) sec INR (<1.2) APTT (22.0-30.0) sec Sodium 141 (137-145) mmol/L Potassium 3.1 L (3.5-5.1) mmol/L Chloride 111 H (98-107) mmol/L Carbon Dioxide 19 L (22-30) mmol/L Anion Gap 11 mmol/L BUN 9 (9-20) mg/dL Creatinine 0.60 L (0.66-1.25) mg/dL Est GFR (CKD-EPI)AfAm >90 (>60 ml/min/1.73 sqM) Est GFR (CKD-EPI)NonAf >90 (>60 ml/min/1.73 sqM) Glucose 90 (74-99) mg/dL Plasma Lactic Acid Balaji (0.7-2.0) mmol/L Calcium 8.4 (8.4-10.2) mg/dL Total Bilirubin 1.7 H (0.2-1.3) mg/dL AST 56 (17-59) U/L ALT 29 (21-72) U/L Alkaline Phosphatase 104 (38-126) U/L Total Protein 6.8 (6.3-8.2) g/dL Albumin 3.4 L (3.5-5.0) g/dL Amylase <30 L (30-110) U/L Lipase 143 (23-300) U/L Urine Color Yellow Urine Appearance Clear (Clear) Urine pH 7.0 (5.0-8.0) Ur Specific Neeses 1.015 (1.001-1.035) Urine Protein Negative (Negative) Urine Glucose (UA) Negative (Negative) Urine Ketones Negative (Negative) Urine Blood Moderate H (Negative) Urine Nitrite Negative (Negative) Urine Bilirubin Negative (Negative) Urine Urobilinogen >12.0 (<2.0) mg/dL Ur Leukocyte Esterase Negative (Negative) Urine RBC 58 H (0-5) /hpf Urine WBC 2 (0-5) /hpf Urine Mucus Occasional H (None) /hpf 12/14/18 12/14/18 Range/Units 04:00 04:00 WBC (3.8-10.6) k/uL RBC (4.30-5.90) m/uL Hgb (13.0-17.5) gm/dL Hct (39.0-53.0) % MCV (80.0-100.0) fL MCH (25.0-35.0) pg MCHC (31.0-37.0) g/dL RDW (11.5-15.5) % Plt Count (150-450) k/uL Neutrophils % (Manual) % Lymphocytes % (Manual) % Eosinophils % (Manual) % Neutrophils # (Manual) (1.3-7.7) k/uL Lymphocytes # (Manual) (1.0-4.8) k/uL Eosinophils # (Manual) (0-0.7) k/uL Nucleated RBCs (0-0) /100 WBC Manual Slide Review Hypochromasia Hypochromasia (manual) Poikilocytosis Poikilocytosis (manual Anisocytosis Anisocytosis (manual) PT 14.7 H (9.0-12.0) sec INR 1.5 H (<1.2) APTT 28.1 (22.0-30.0) sec Sodium (137-145) mmol/L Potassium (3.5-5.1) mmol/L Chloride (98-107) mmol/L Carbon Dioxide (22-30) mmol/L Anion Gap mmol/L BUN (9-20) mg/dL Creatinine (0.66-1.25) mg/dL Est GFR (CKD-EPI)AfAm (>60 ml/min/1.73 sqM) Est GFR (CKD-EPI)NonAf (>60 ml/min/1.73 sqM) Glucose (74-99) mg/dL Plasma Lactic Acid Balaji 2.3 H* (0.7-2.0) mmol/L Calcium (8.4-10.2) mg/dL Total Bilirubin (0.2-1.3) mg/dL AST (17-59) U/L ALT (21-72) U/L Alkaline Phosphatase (38-126) U/L Total Protein (6.3-8.2) g/dL Albumin (3.5-5.0) g/dL Amylase (30-110) U/L Lipase (23-300) U/L Urine Color Urine Appearance (Clear) Urine pH (5.0-8.0) Ur Specific Neeses (1.001-1.035) Urine Protein (Negative) Urine Glucose (UA) (Negative) Urine Ketones (Negative) Urine Blood (Negative) Urine Nitrite (Negative) Urine Bilirubin (Negative) Urine Urobilinogen (<2.0) mg/dL Ur Leukocyte Esterase (Negative) Urine RBC (0-5) /hpf Urine WBC (0-5) /hpf Urine Mucus (None) /hpf Disposition <Allison Wise - Last Filed: 12/14/18 03:41> <Sabino De La Fuente - Last Filed: 12/14/18 07:37> Clinical Impression: Umbilical hernia with obstruction, Anemia Disposition: ADMITTED IP TO THIS [facility] Condition: Serious Referrals: James Meza Jr, [Primary Care Provider] - 1-2 days
[2018-12-14 04:06] LABS: Appearance,Urine Clear (Clear); Bilirubin,Urine Negative (Negative); Blood,Urine Moderate (Negative); Color,Urine Yellow; Glucose,Urine (UA) Negative (Negative); Ketones,Urine Negative (Negative); Leukocyte Esterase,Urine Negative (Negative); Mucus,Urine Occasional /hpf; Nitrite,Urine Negative (Negative); Protein,Urine Negative (Negative); RBC,Urine 58 /hpf (0-5); Specific Gravity,Urine 1.015 (1.001-1.035); Urobilinogen,Urine >12.0 mg/dL (<2.0); WBC,Urine 2 /hpf (0-5)
[2018-12-14 04:26] LABS: ALT 29 U/L (21-72); AST 56 U/L (17-59); African American GFR (CKD) >90 (>60 ml/min/1.73 sqM); Albumin 3.4 g/dL (3.5-5.0); Alkaline Phosphatase 104 U/L (38-126); Amylase <30 U/L (30-110); Anion Gap 11 mmol/L; Blood Urea Nitrogen 9 mg/dL (9-20); Calcium 8.4 mg/dL (8.4-10.2); Carbon Dioxide 19 mmol/L (22-30); Chloride 111 mmol/L (98-107); Glucose 90 mg/dL (74-99); Non-African American GFR(CKD) >90 (>60 ml/min/1.73 sqM); Potassium 3.1 mmol/L (3.5-5.1); Sodium 141 mmol/L (137-145); Total Bilirubin 1.7 mg/dL (0.2-1.3); Total Protein 6.8 g/dL (6.3-8.2)
[2018-12-14 04:27] LABS: INR 1.5 (<1.2); Partial Thromboplastin Time 28.1 sec (22.0-30.0); Prothrombin Time 14.7 sec (9.0-12.0)
--- NOTE | 2018-12-14 04:27 | CT ---
EXAM: CT Abdomen and Pelvis With Intravenous Contrast CLINICAL HISTORY: ITS.REASON CT Reason: abdominal pain TECHNIQUE: Axial computed tomography images of the abdomen and pelvis with intravenous contrast. This CT exam was performed using one or more of the following dose reduction techniques: automated exposure control, adjustment of the mA and/or kV according to patient size, and/or use of iterative reconstruction technique. COMPARISON: No relevant prior studies available. FINDINGS: Lung bases: Unremarkable. No mass. No consolidation. ABDOMEN: Liver: Cirrhotic liver. Gallbladder and bile ducts: Cholecystectomy Pancreas: Unremarkable. No mass. No ductal dilation. Spleen: Unremarkable. No splenomegaly. Adrenals: Unremarkable. No mass. Kidneys and ureters: Left nephrolithiasis. No hydronephrosis. Stomach and bowel: Moderate umbilical hernia containing fluid and short segment of small bowel. There is small bowel obstruction with transition point at the hernia neck. PELVIS: Appendix: No findings to suggest acute appendicitis. Bladder: Unremarkable. No mass. Reproductive: Unremarkable as visualized. ABDOMEN and PELVIS: Intraperitoneal space: Moderate ascites. No free air. Bones/joints: No acute fracture. No dislocation. Soft tissues: See above. Vasculature: Dilated portosystemic varices. Lymph nodes: Unremarkable. No enlarged lymph nodes. IMPRESSION: 1. Cirrhotic liver. 2. Dilated portosystemic varices. 3. Moderate ascites. 4. Left nephrolithiasis. 5. Moderate umbilical hernia containing fluid and short segment of small bowel. There is small bowel obstruction with transition point at the hernia neck.
[2018-12-14 04:32] LABS: Anisocytosis Slight; HGB 8.3 gm/dL (13.0-17.5); Hypochromasia Marked; MCH 25.2 pg (25.0-35.0); MCHC 28.5 g/dL (31.0-37.0); MCV 88.4 fL (80.0-100.0); Mean Platelet Volume 8.7; Platelet Count 158 k/uL (150-450); Poikilocytosis Slight; RBC 3.28 m/uL (4.30-5.90); RDW 19.5 % (11.5-15.5); WBC 4.1 k/uL (3.8-10.6)
[2018-12-14 04:48] LABS: Anisocytosis (M) Present; Eosinophils # (M) 0.29 k/uL (0-0.7); Hypochromasia (M) Present; Lymphocytes # (M) 1.19 k/uL (1.0-4.8); Neutrophils # (M) 2.62 k/uL (1.3-7.7); Neutrophils % (M) 64 %; Nucleated Red Blood Cells 0 /100 WBC (0-0); Poikilocytosis (M) Present; Total Cells Counted 100
[2018-12-14] MEDS ORDERED: LORazepam 2 MG/ML INJ IV STA (06:36)
[2018-12-14] MEDS ORDERED: SODIUM CHLORIDE 0.9% 1,000 ML IV ONE (06:36)
[2018-12-14] MEDS ORDERED: MORPHINE SULFATE 4 MG/ML SYRINGE IV STA (07:24)
[2018-12-14] MEDS ORDERED: NALOXONE 0.4 MG/ML 1 ML VIAL IV PRN (07:29)
[2018-12-14] MEDS ORDERED: MORPHINE SULFATE 4 MG/ML SYRINGE IV PRN (07:29)
[2018-12-14] MEDS ORDERED: SODIUM CHLORIDE 0.9% 1,000 ML IV SCH (07:30)
[2018-12-14] MEDS ORDERED: LORazepam 2 MG/ML INJ IV PRN ×3 (07:33)
[2018-12-14] MEDS ORDERED: THIAMINE 100 MG/ML 2 ML VIAL IM STA (07:33)
[2018-12-14 08:41] VITALS: BP 138/82; PULSE 75; RESP 15; TEMP 97.6
[2018-12-14] MEDS ORDERED: NICOTINE 21MG/24HR PATCH TRANSDERM SCH (09:00)
[2018-12-14] MEDS ORDERED: Potassium Replacement Protocol 1 EACH MISC MISCELLANE PRN (10:30)
--- NOTE | 2018-12-14 10:40 | P.HPIM ---
History of Present Illness H&P Date: 12/14/18 H & P & DC Summary Patient is a 44-year-old male well-known to the practice history of alcoholic cirrhosis, GI bleed, esophageal varices, banding who presents to the ER last night with complaints of worsening generalized abdominal pain, nonradiating especially over the umbilical region, that began in the morning. Patient reports he has a umbilical hernia and was scheduled to have an appointment with surgeon today. Denies any constipation, hematochezia or melena. Reports nausea. Denies fever or chills. Denies any chest pain, palpitations or shortness of breath. Denies any lightheadedness dizziness or focal deficits. CT of abdomen and pelvis reporting moderate umbilical hernia containing fluid and short segment of small bowel, small bowel obstruction with transition point at the hernia neck, cirrhotic liver, dilated portosystemic varices, moderate ascites, left nephrolithiasis. Afebrile, normal WBC. Hemoglobin 8.3, platelets 158, INR 1.5, potassium 3.1, BUN 9, creatinine 0.6, Laactic acid 2.3 -down too 1.2, status post IV fluid boluses. Total bili 1.7, LFTs unremarkable. Surgery consulted. Review of Systems ROS Other: All systems not noted in ROS Statement are negative. ROS Statement: Those systems with pertinent positive or pertinent negative responses have been documented in the HPI. Past Medical History Past Medical History: Asthma, GI Bleed, Liver Disease, Pneumonia Additional Past Medical History / Comment(s): ETOH abuse, liver cirrhosis, abdominal ascites, pancreatitis, multiple gallstones, nephrolithiasis, chronic anemia, esophageal varices, hx urinating blood and kidneys stone History of Any Multi-Drug Resistant Organisms: MRSA Date of last positivie culture/infection: 12/09/13 MDRO Source:: Right first finger Past Surgical History: Appendectomy, Cholecystectomy, Orthopedic Surgery Additional Past Surgical History / Comment(s): 07/09/17 EGD/colonoscopy, paracentesis, right hand tendon repair, right knee arthroscopy, cystoscopy for kidney stone removal, right hand ring finger surgery. blood transfusions. Past Anesthesia/Blood Transfusion Reactions: Previous Problems w/ Anesthesia Additional Past Anesthesia/Blood Transfusion Reaction / Comment(s): Woke up during scope procedure. Past Psychological History: PTSD Additional Psychological History / Comment(s): PT currently resides with his friend Donny. active alcohol use. No current recreational drug use. No current injection drug use. Nonemployed. and complains about that situation Smoking Status: Current every day smoker Past Alcohol Use History: Abuse, Daily Additional Past Alcohol Use History / Comment(s): Pt states he started smoking in 1983 and is a half pack day smoker. PT states reduced the amount of alcohol to a few days a week, drinking 5 12oz cans of beer on those occasions. Pt states used to drink a fifth or 1/2 gallon and some beers daily. Past Drug Use History: Marijuana Additional Drug Use History / Comment(s): Pt states he smokes marijuana on occasion. No other drug use. - Past Family History Mother Family Medical History: Hypertension Father Additional Family Medical History / Comment(s): Prostate issues. Brain aneurysm. Medications and Allergies Home Medications Medication Instructions Recorded Confirmed Type Folic Acid 1 mg PO DAILY@1200 09/01/17 12/14/18 History Thiamine [Vitamin B-1] 100 mg PO DAILY #30 tablet 09/03/17 12/14/18 Rx Furosemide [Lasix] 40 mg PO BID #60 tablet 12/06/18 12/14/18 Rx Nicotine 21Mg/24Hr Patch [Habitrol] 1 patch TRANSDERM DAILY #30 patch 12/06/18 12/14/18 Rx Pantoprazole Sodium [Protonix] 40 mg PO DAILY #30 tablet. 12/06/18 12/14/18 Rx Propranolol [Inderal] 10 mg PO TID #90 tab 12/06/18 12/14/18 Rx Spironolactone [Aldactone] 100 mg PO DAILY #30 tab 12/06/18 12/14/18 Rx Multivitamins, Thera [Multivitamin 1 tab PO DAILY@1200 12/14/18 12/14/18 History (formulary)] Allergies Allergy/AdvReac Type Severity Reaction Status Date / Time No Known Allergies Allergy Verified 12/14/18 08:03 Physical Exam Vitals: Vital Signs Temp Pulse Pulse Resp BP BP Pulse Ox 12/14/18 08:40 97.6 F 75 15 138/82 97 12/14/18 06:15 98.6 F 61 18 134/79 97 12/14/18 05:31 65 18 133/74 92 L 12/14/18 04:33 74 18 139/74 98 12/14/18 03:44 19 142/79 100 12/14/18 02:10 97.7 F 78 26 H 141/72 99 Intake and Output 12/13/18 12/14/18 12/14/18 22:59 06:59 14:59 Other: Weight 84.822 kg General: [Patient awake, alert and oriented times 3. Patient in no acute distress.] Slightly pale HEENT: [PERRL. EOMI. No pharyngeal erythema or exudate.] Neck: [No adenopathy.] Cardiac: [Heart regular in rate and rhythm. No S3. No S4. No clicks, rubs. No murmur.] Lungs: [Clear to auscultation bilaterally.] Abdomen: Soft, Distended, tender [No mass. Positive ascites . Bowel sounds presnt and normoactive in all 4 quadrants.] Extremes: [No edema no cyanosis no claudication normal pulses Musculoskeletal: [No joint erythema, edema or tenderness.] Skin: [No rash.] Neurologic: [No lateralizing deficits. CN II - XII grossly intact.] Lymphatic: [No adenopathy.] Results CBC & Chem 7: 12/14/18 04:00 12/14/18 04:00 Labs: Abnormal Lab Results - Last 24 Hours (Table) 12/14/18 12/14/18 12/14/18 Range/Units 03:42 04:00 04:00 RBC 3.28 L (4.30-5.90) m/uL Hgb 8.3 L (13.0-17.5) gm/dL Hct 29.0 L (39.0-53.0) % MCHC 28.5 L (31.0-37.0) g/dL RDW 19.5 H (11.5-15.5) % PT (9.0-12.0) sec INR (<1.2) Potassium 3.1 L (3.5-5.1) mmol/L Chloride 111 H (98-107) mmol/L Carbon Dioxide 19 L (22-30) mmol/L Creatinine 0.60 L (0.66-1.25) mg/dL Plasma Lactic Acid Balaji (0.7-2.0) mmol/L Total Bilirubin 1.7 H (0.2-1.3) mg/dL Albumin 3.4 L (3.5-5.0) g/dL Amylase <30 L (30-110) U/L Urine Blood Moderate H (Negative) Urine RBC 58 H (0-5) /hpf Urine Mucus Occasional H (None) /hpf 12/14/18 12/14/18 Range/Units 04:00 04:00 RBC (4.30-5.90) m/uL Hgb (13.0-17.5) gm/dL Hct (39.0-53.0) % MCHC (31.0-37.0) g/dL RDW (11.5-15.5) % PT 14.7 H (9.0-12.0) sec INR 1.5 H (<1.2) Potassium (3.5-5.1) mmol/L Chloride (98-107) mmol/L Carbon Dioxide (22-30) mmol/L Creatinine (0.66-1.25) mg/dL Plasma Lactic Acid Balaji 2.3 H* (0.7-2.0) mmol/L Total Bilirubin (0.2-1.3) mg/dL Albumin (3.5-5.0) g/dL Amylase (30-110) U/L Urine Blood (Negative) Urine RBC (0-5) /hpf Urine Mucus (None) /hpf Thrombosis Risk Factor Assmnt - Choose All That Apply Any of the Below Risk Factors Present?: Yes Each Factor Represents 1 point: Age 41-60 years, Obesity (BMI >25) Other Risk Factors: No Other congenital or acquired thrombophilia - If yes, enter type in comment: No Thrombosis Risk Factor Assessment Total Risk Factor Score: 2 Thrombosis Risk Factor Assessment Level: Low Risk Assessment and Plan Assessment: -Umbilical hernia, incarcerated with bowel obstruction -Chronic anemia -Liver cirrhosis with ascites -Esophageal varices , multiple visits with band placement -Hypokalemia -Coagulopathy -History of alcohol abuse -Recent GI bleed, EGD reporting variceal band ligation 6 bands placed over varices in the distal esophagus Plan: Surgeon requesting the patient be shipped to a tertiary center as he is too high risk for surgery to be performed here, secondary to esophageal varices, multiple bands, and other medical conditions. Patient is being transferred to [facility] in a stable condition with guarded prognosis. The impression and plan of care has been dictated as directed. : I performed a history and examination of this patient, discussed the same with the dictator. I agree with the dictator's note ,documented as a scribe. Any additional findings or plans will be noted. Time takern: 35 min
--- NOTE | 2018-12-14 11:43 | CDI ---
Documentation Clarification Form Date: 12/14/2018 11:36:19 AM From: Danna ParkOsmanDIANA, CCDS Admit Date: 12/14/2018 7:29:00 AM Patient Name: Kenisha Paige Visit Number: [id number] Discharge Date: ATTENTION: The Clinical Documentation Specialists (CDI) and [facility] Coding Staff appreciate your assistance in clarifying documentation. Please respond to the clarification below the line at the bottom and electronically sign. The CDI & [facility] Coding staff will review the response and follow-up if needed. Please note: Queries are made part of the Legal Health Record. If you have any questions, please contact the author of this message via ITS. Dr. Aristeo Fox: A diagnosis of anemia lacks specificity to accurately reflect your patients severity of condition and clarification is needed. Per the History & Physical: Chronic anemia without further specificity. History/Risk Factors: Previous GI bleed with esophageal varices status post recent banding, Alcoholic liver cirrhosis w/ascites, Umbilical hernia, Smoker & Marijuana use. Clinical indicators: Presented with abdominal pain, diagnosed with umbilical hernia, per attending History & Physical, per surgeon, the patient is too high risk for surgery & should be transferred to tertiary facility. Hemoglobin: 8.3* Hematocrit: 29.0* Treatment: IV Dilaudid, IV Zofran, IV Ativan, IV Morphine, IV fluid 150, IM Vit B1, Habitrol patch In order to capture the severity of condition, please clarify the type of anemia and etiology if known: Acute blood loss anemia Acute on chronic blood loss anemia Chronic blood loss anemia Iron deficiency anemia Hemolytic anemia Drug induced anemia Nutritional anemia Unable to determine Other, please specify (Last Revision: February 2017) chronic blood loss anemia secondary to history of esophageal varices with multiple bands. MTDD
--- NOTE | 2018-12-14 12:21 | P.GSCN ---
History of Present Illness Consult date: 12/14/18 Reason for Consult: umbilical hernia Requesting physician: Sabino De La Fuente History of present illness: CHIEF COMPLAINT: abdominal pain HISTORY OF PRESENT ILLNESS: 43-year-old male who presented to the emergency room with a chief complaint of abdominal pain. She reports history of umbilical hernia that has caused intermittent discomfort over the last 4-5 months. Patient states yesterday he was helping push a friend's car to a gas station when it ran out of gas and he started noticing some abdominal discomfort. He was [place]e fishing yesterday afternoon and reports the pain became so severe he came to the ER for further evaluation. Patient denies nausea or vomiting. Denies fever or chills. He reports he is passing flatus and had a bowel movement yesterday morning. He has a history of alcohol abuse and states he last drank 2 weeks ago. Patient also recently underwent EGD with esophageal banding on December 04, 2018. Patient was also hospitalized in August 2018 and underwent esophageal variceal banding at that time also. PAST MEDICAL HISTORY: See list. PAST SURGICAL HISTORY: See list. MEDICATIONS: See list. ALLERGIES: See list. SOCIAL HISTORY: No illicit drug use. History of alcohol abuse. REVIEW OF SYSTEMS: CONSTITUTIONAL: Denies fever or chills. HEENT: Denies blurred vision, vision changes, or eye pain. Denies hemoptysis. Recent esophageal variceal banding. ENDOCRINE: Denies heat or cold intolerance. CARDIOVASCULAR: Denies chest pain or pressure. RESPIRATORY: No shortness of breath. GASTROINTESTINAL: See HPI for pertinent findings. NEURO: Denies history of seizures. PSYCH: No depression or suicidal ideation HEMATOLOGIC: Denies bleeding disorders. LYMPHATIC: The patient denies any lumps and bumps around the neck. GENITOURINARY: Denies any blood in urine or increased urinary frequency. MUSCULOSKELETAL: Denies myalgias. Denies joint swelling. Denies decreased range of motion beyond patients baseline. SKIN: Denies pruitis. Denies rash. PHYSICAL EXAM: VITAL SIGNS: Reviewed GENERAL: Well-developed in no acute distress. HEENT: No sclera icterus. Extraocular movements grossly intact. Moist buccal mucosa. Head is atraumatic, normocephalic. Hears conversational speech. No nasal drainage. NECK: Supple without lymphadenopathy. CHEST: Non-labored respirations and equal bilateral excursions. CARDIOVASCULAR: Regular rate with regular rhythm. Palpable 2+ radial pulses. ABDOMEN: Mildly distended. Umbilical hernia. Very tender to touch. MUSCULOSKELETAL: No clubbing, cyanosis or edema. NEUROLOGIC: No focal or lateralizing signs. Cranial nerves II through XII g rossly intact. PSYCH: Appropriate affect. Alert and oriented to person, place and time. SKIN: Well perfused. Good skin turgor. LABORATORY DATA: Laboratory data reveals white count 4.1. Hemoglobin 8.3. Platelet count 158. INR 1.5. Potassium 3.1. Lactic acid 2.3. Bilirubin 1.7. AST 56. ALT 29. IMAGING: Computed tomography scan abdomen and pelvis: Cirrhotic liver. Dilated portosystemic varices. Moderate ascites. Left nephrolithiasis. Moderate umbilical hernia containing fluid and short segment of small bowel. There is small bowel obstruction with transition point at the hernia neck. ASSESSMENT: 1. Abdominal pain 2. Incarcerated umbilical hernia 3. Small bowel obstruction, secondary to above 4. History of esophageal varices with recent banding 5. Liver cirrhosis with ascites 6. Coagulopathy, secondary to above 7. History of alcohol abuse PLAN: Recommend transfer to tertiary center for surgical evaluation as patient is high risk for surgery at current facility secondary to esophageal varices, liver cirrhosis, coagulopathy, and other comorbidities. Spoke with internal medicine who will start transfer process. Nurse practitioner note has been reviewed by physician. Signing provider agrees with the documented findings, assessment, and plan of care. Past Medical History Past Medical History: Asthma, GI Bleed, Liver Disease, Pneumonia Additional Past Medical History / Comment(s): ETOH abuse, liver cirrhosis, abdominal ascites, pancreatitis, multiple gallstones, nephrolithiasis, chronic anemia, esophageal varices, hx urinating blood and kidneys stone History of Any Multi-Drug Resistant Organisms: MRSA Year Discovered:: 12/09/13 MDRO Source:: Right first finger Past Surgical History: Appendectomy, Cholecystectomy, Orthopedic Surgery Additional Past Surgical History / Comment(s): 07/09/17 EGD/colonoscopy, paracentesis, right hand tendon repair, right knee arthroscopy, cystoscopy for kidney stone removal, right hand ring finger surgery. blood transfusions. Past Anesthesia/Blood Transfusion Reactions: Previous Problems w/ Anesthesia Additional Past Anesthesia/Blood Transfusion Reaction / Comm: Woke up during scope procedure. Past Psychological History: PTSD Additional Psychological History / Comment(s): PT currently resides with his friend Donny. active alcohol use. No current recreational drug use. No current injection drug use. Nonemployed. and complains about that situation Smoking Status: Current every day smoker Past Alcohol Use History: Abuse, Daily Additional Past Alcohol Use History / Comment(s): Pt states he started smoking in 1983 and is a half pack day smoker. PT states reduced the amount of alcohol to a few days a week, drinking 5 12oz cans of beer on those occasions. Pt states used to drink a fifth or 1/2 gallon and some beers daily. Past Drug Use History: Marijuana Additional Drug Use History / Comment(s): Pt states he smokes marijuana on occasion. No other drug use. - Past Family History Mother Family Medical History: Hypertension Father Additional Family Medical History / Comment(s): Prostate issues. Brain aneurysm. Medications and Allergies Home Medications Medication Instructions Recorded Confirmed Type Folic Acid 1 mg PO DAILY@1200 09/01/17 12/14/18 History Thiamine [Vitamin B-1] 100 mg PO DAILY #30 tablet 09/03/17 12/14/18 Rx Furosemide [Lasix] 40 mg PO BID #60 tablet 12/06/18 12/14/18 Rx Nicotine 21Mg/24Hr Patch [Habitrol] 1 patch TRANSDERM DAILY #30 patch 12/06/18 12/14/18 Rx Pantoprazole Sodium [Protonix] 40 mg PO DAILY #30 tablet. 12/06/18 12/14/18 Rx Propranolol [Inderal] 10 mg PO TID #90 tab 12/06/18 12/14/18 Rx Spironolactone [Aldactone] 100 mg PO DAILY #30 tab 12/06/18 12/14/18 Rx Multivitamins, Thera [Multivitamin 1 tab PO DAILY@1200 12/14/18 12/14/18 History (formulary)] Allergies Allergy/AdvReac Type Severity Reaction Status Date / Time No Known Allergies Allergy Verified 12/14/18 08:03 Surgical - Exam Vital Signs Temp Pulse Resp BP Pulse Ox 97.7 F 78 26 H 141/72 99 12/14/18 02:10 12/14/18 02:10 12/14/18 02:10 12/14/18 02:10 12/14/18 02:10 Results - Labs 12/14/18 04:00 12/14/18 04:00 Abnormal Lab Results - Last 24 Hours (Table) 12/14/18 12/14/18 12/14/18 Range/Units 03:42 04:00 04:00 RBC 3.28 L (4.30-5.90) m/uL Hgb 8.3 L (13.0-17.5) gm/dL Hct 29.0 L (39.0-53.0) % MCHC 28.5 L (31.0-37.0) g/dL RDW 19.5 H (11.5-15.5) % PT (9.0-12.0) sec INR (<1.2) Potassium 3.1 L (3.5-5.1) mmol/L Chloride 111 H (98-107) mmol/L Carbon Dioxide 19 L (22-30) mmol/L Creatinine 0.60 L (0.66-1.25) mg/dL Plasma Lactic Acid Balaji (0.7-2.0) mmol/L Total Bilirubin 1.7 H (0.2-1.3) mg/dL Albumin 3.4 L (3.5-5.0) g/dL Amylase <30 L (30-110) U/L Urine Blood Moderate H (Negative) Urine RBC 58 H (0-5) /hpf Urine Mucus Occasional H (None) /hpf 12/14/18 12/14/18 Range/Units 04:00 04:00 RBC (4.30-5.90) m/uL Hgb (13.0-17.5) gm/dL Hct (39.0-53.0) % MCHC (31.0-37.0) g/dL RDW (11.5-15.5) % PT 14.7 H (9.0-12.0) sec INR 1.5 H (<1.2) Potassium (3.5-5.1) mmol/L Chloride (98-107) mmol/L Carbon Dioxide (22-30) mmol/L Creatinine (0.66-1.25) mg/dL Plasma Lactic Acid Balaji 2.3 H* (0.7-2.0) mmol/L Total Bilirubin (0.2-1.3) mg/dL Albumin (3.5-5.0) g/dL Amylase (30-110) U/L Urine Blood (Negative) Urine RBC (0-5) /hpf Urine Mucus (None) /hpf Diabetes panel 12/14/18 Range/Units 04:00 Sodium 141 (137-145) mmol/L Potassium 3.1 L (3.5-5.1) mmol/L Chloride 111 H (98-107) mmol/L Carbon Dioxide 19 L (22-30) mmol/L BUN 9 (9-20) mg/dL Creatinine 0.60 L (0.66-1.25) mg/dL Glucose 90 (74-99) mg/dL Calcium 8.4 (8.4-10.2) mg/dL AST 56 (17-59) U/L ALT 29 (21-72) U/L Alkaline Phosphatase 104 (38-126) U/L Total Protein 6.8 (6.3-8.2) g/dL Albumin 3.4 L (3.5-5.0) g/dL Calcium panel 12/14/18 Range/Units 04:00 Calcium 8.4 (8.4-10.2) mg/dL Albumin 3.4 L (3.5-5.0) g/dL Pituitary panel 12/14/18 Range/Units 04:00 Sodium 141 (137-145) mmol/L Potassium 3.1 L (3.5-5.1) mmol/L Chloride 111 H (98-107) mmol/L Carbon Dioxide 19 L (22-30) mmol/L BUN 9 (9-20) mg/dL Creatinine 0.60 L (0.66-1.25) mg/dL Glucose 90 (74-99) mg/dL Calcium 8.4 (8.4-10.2) mg/dL Adrenal panel 12/14/18 Range/Units 04:00 Sodium 141 (137-145) mmol/L Potassium 3.1 L (3.5-5.1) mmol/L Chloride 111 H (98-107) mmol/L Carbon Dioxide 19 L (22-30) mmol/L BUN 9 (9-20) mg/dL Creatinine 0.60 L (0.66-1.25) mg/dL Glucose 90 (74-99) mg/dL Calcium 8.4 (8.4-10.2) mg/dL Total Bilirubin 1.7 H (0.2-1.3) mg/dL AST 56 (17-59) U/L ALT 29 (21-72) U/L Alkaline Phosphatase 104 (38-126) U/L Total Protein 6.8 (6.3-8.2) g/dL Albumin 3.4 L (3.5-5.0) g/dL Assessment and Plan (1) Umbilical hernia with obstruction Current Visit: Yes Status: Acute Code(s): K42.0 - UMBILICAL HERNIA WITH OBSTRUCTION, WITHOUT GANGRENE SNOMED Code(s): 977430647 (2) Abdominal pain Current Visit: No Status: Acute Code(s): R10.9 - UNSPECIFIED ABDOMINAL PAIN SNOMED Code(s): 42805987 (3) Alcohol abuse Current Visit: No Status: Acute Code(s): F10.10 - ALCOHOL ABUSE, UNCOMPLIC ATED SNOMED Code(s): 90616048 (4) Alcoholic cirrhosis of liver with ascites Current Visit: No Status: Acute Code(s): K70.31 - ALCOHOLIC CIRRHOSIS OF LIVER WITH ASCITES SNOMED Code(s): 882942524
[2018-12-14] MEDS ORDERED: THIAMINE 100 MG TAB PO SCH (17:30)
== END 2018-12-14 12:52 | disposition short-term general hospital (02) | DRG 394 ==
LOC: EC 02:05 → 4SSUR 07:29
PROVIDERS: ADMIT Family Medicine; ATTEND Family Medicine
DX: K42.0 Umbilical hernia with obstruction, without gangrene (principal); D68.9 Coagulation defect, unspecified; I85.00 Esophageal varices without bleeding; D64.9 Anemia, unspecified; E87.6 Hypokalemia; F10.10 Alcohol abuse, uncomplicated; F17.210 Nicotine dependence, cigarettes, uncomplicated; F43.10 Post-traumatic stress disorder, unspecified; J45.909 Unspecified asthma, uncomplicated; K70.31 Alcoholic cirrhosis of liver with ascites; N20.0 Calculus of kidney; Z79.899 Other long term (current) drug therapy; Z82.49 Family history of ischemic heart disease and other diseases of the circulatory system; Z87.442 Personal history of urinary calculi; Z56.0 Unemployment, unspecified
CPT/HCPCS: 36415; 74177; 80053; 81001; 82150; 83605; 83690; 85025; 85610; 85730; 96361; 96372; 96374; 96375; 99285

== ENCOUNTER 2019-01-16 10:59 | Inpatient (IN) | payer OTHER ==
[2019-01-16] MEDS ORDERED: SODIUM CHLORIDE 0.9% 500 ML 500 ML IV STA (11:20)
[2019-01-16] MEDS ORDERED: SODIUM CHLORIDE 0.9% 1,000 ML IV STA (11:20)
[2019-01-16] MEDS ORDERED: PANTOPRAZOLE 40 MG/10 ML VIAL IVP STA (11:20)
[2019-01-16] MEDS ORDERED: ONDANSETRON 4 MG/2 ML VIAL IVP STA (11:20)
[2019-01-16] MEDS ORDERED: LORazepam 2 MG/ML INJ IV STA (11:25)
--- NOTE | 2019-01-16 11:42 | ED ---
GI Bleed HPI - General Chief complaint: GI Bleed Stated complaint: rectal bleeding Time Seen by Provider: 01/16/19 11:11 Source: patient, RN notes reviewed, old records reviewed Mode of arrival: wheelchair Limitations: no limitations - History of Present Illness Initial comments: This is a 43-year-old male the ER for evaluation he presents today for indira luation regards to not feeling well. Patient is to weakness and admits to blood in his stool positive nausea vomiting. Patient admits to drinking last night. He has history of alcohol cirrhosis. Patient admits to abdominal pain which he states is typical for him. Patient denying any current fevers. He feels weak a little confused. Fall with weakness patient complains of pain throughout his entire body MD complaint: blood on toilet paper, blood streaked stool -: hour(s) Radiation: none Severity scale (1-10): 4 Quality: cramping Consistency: constant Improves with: none Worsens with: none Context: history of GI bleed, liver disease, alcohol abuse Associated Symptoms: abdominal pain, nausea, loss of appetite, weakness Treatments Prior to Arrival: none - Related Data Home Medications Medication Instructions Recorded Confirmed Folic Acid 1 mg PO DAILY@1200 09/01/17 01/16/19 Multivitamins, Thera [Multivitamin 1 tab PO DAILY@1200 12/14/18 01/16/19 (formulary)] Previous Rx's Medication Instructions Recorded Thiamine [Vitamin B-1] 100 mg PO DAILY #30 tablet 09/03/17 Furosemide [Lasix] 40 mg PO BID #60 tablet 12/06/18 Pantoprazole Sodium [Protonix] 40 mg PO DAILY #30 tablet. 12/06/18 Propranolol [Inderal] 10 mg PO TID #90 tab 12/06/18 Spironolactone [Aldactone] 100 mg PO DAILY #30 tab 12/06/18 Allergies Allergy/AdvReac Type Severity Reaction Status Date / Time No Known Allergies Allergy Verified 01/16/19 11:22 Review of Systems ROS Statement: Those systems with pertinent positive or pertinent negative responses have been documented in the HPI. ROS Other: All systems not noted in ROS Statement are negative. Past Medical History Past Medical History: Asthma, GI Bleed, Liver Disease, Pneumonia Additional Past Medical History / Comment(s): ETOH abuse, liver cirrhosis, abdominal ascites, pancreatitis, multiple gallstones, nephrolithiasis, chronic anemia, esophageal varices, hx urinating blood and kidneys stone History of Any Multi-Drug Resistant Organisms: MRSA Date of last positivie culture/infection: 12/09/13 MDRO Source:: Right first finger Past Surgical History: Appendectomy, Cholecystectomy, Orthopedic Surgery Additional Past Surgical History / Comment(s): 07/09/17 EGD/colonoscopy, paracentesis, right hand tendon repair, right knee arthroscopy, cystoscopy for kidney stone removal, right hand ring finger surgery. blood transfusions. Past Anesthesia/Blood Transfusion Reactions: Previous Problems w/ Anesthesia Additional Past Anesthesia/Blood Transfusion Reaction / Comment(s): Woke up during scope procedure. Past Psychological History: PTSD Smoking Status: Current every day smoker Past Alcohol Use History: Abuse, Daily Past Drug Use History: Marijuana - Past Family History Mother Family Medical History: Hypertension Father Additional Family Medical History / Comment(s): Prostate issues. Brain aneurysm. General Exam - General Exam Comments Initial Comments: Patient does appear jaundiced Limitations: altered mental status General appearance: alert, in no apparent distress Head exam: Present: atraumatic, normocephalic, normal inspection Eye exam: Present: normal appearance, PERRL, EOMI. Absent: scleral icterus, conjunctival injection, periorbital swelling ENT exam: Present: normal exam, mucous membranes dry Neck exam: Present: normal inspection. Absent: tenderness, meningismus, lymphadenopathy Respiratory exam: Present: normal lung sounds bilaterally. Absent: respiratory distress, wheezes, rales, rhonchi, stridor Cardiovascular Exam: Present: regular rate, normal rhythm, normal heart sounds. Absent: systolic murmur, diastolic murmur, rubs, gallop, clicks GI/Abdominal exam: Present: soft, normal bowel sounds. Absent: distended, tenderness, guarding, rebound, rigid Extremities exam: Present: normal inspection, full ROM, normal capillary refill. Absent: tenderness, pedal edema, joint swelling, calf tenderness Back exam: Present: normal inspection Neurological exam: Present: alert, oriented X3, CN II-XII intact Psychiatric exam: Present: normal affect, normal mood Skin exam: Present: warm, dry, intact, normal color. Absent: rash Course Vital Signs 01/16/19 01/16/19 01/16/19 11:01 11:12 11:20 Temperature 98.0 F Pulse Rate 96 101 H Respiratory 24 25 H Rate Blood Pressure 100/61 107/65 O2 Sat by Pulse 100 100 100 Oximetry 01/16/19 01/16/19 01/16/19 11:30 11:40 11:50 Temperature Pulse Rate 95 100 89 Respiratory 26 H 25 H 13 Rate Blood Pressure 107/65 114/58 100/60 O2 Sat by Pulse 100 99 98 Oximetry 01/16/19 01/16/19 12:00 12:10 Temperature Pulse Rate 93 95 Respiratory 24 24 Rate Blood Pressure 100/60 96/56 O2 Sat by Pulse 99 98 Oximetry - Reevaluation(s) Reevaluation #1: 01/16/19 11:49 Medical records reviewed Reevaluation #2: 01/16/19 13:09 Patient is without still is of near syncope or significant, improved with hydration Reevaluation #3: 01/16/19 13:09 No active bloody bowel movements or vomiting here in the ER Medical Decision Making - Medical Decision Making 83 male the ER for evaluation of significant alcoholism and alcoholic disease. Patient coming in with blood loss anemia and anemia of chronic disease, patient will be admitted for transfusion and monitoring of cardiopulmonary situation status. - Lab Data Result diagrams: 01/16/19 11:31 01/16/19 11:31 Lab Results 01/16/19 01/16/19 01/16/19 Range/Units 11:31 11:31 11:31 WBC (3.8-10.6) k/uL RBC (4.30-5.90) m/uL Hgb (13.0-17.5) gm/dL Hct (39.0-53.0) % MCV (80.0-100.0) fL MCH (25.0-35.0) pg MCHC (31.0-37.0) g/dL RDW (11.5-15.5) % Plt Count (150-450) k/uL Neutrophils % % Lymphocytes % % Monocytes % % Eosinophils % % Basophils % % Neutrophils # (1.3-7.7) k/uL Lymphocytes # (1.0-4.8) k/uL Monocytes # (0-1.0) k/uL Eosinophils # (0-0.7) k/uL Basophils # (0-0.2) k/uL Hypochromasia Poikilocytosis Anisocytosis Microcytosis PT 17.4 H (9.0-12.0) sec INR 1.8 H (<1.2) APTT 25.4 (22.0-30.0) sec VBG pH 7.47 H (7.31-7.41) VBG pCO2 23 L (37-51) mmHg VBG HCO3 16 L (24-28) mmol/L Sodium 143 (137-145) mmol/L Potassium 3.4 L (3.5-5.1) mmol/L Chloride 114 H (98-107) mmol/L Carbon Dioxide 18 L (22-30) mmol/L Anion Gap 11 mmol/L BUN 17 (9-20) mg/dL Creatinine 0.63 L (0.66-1.25) mg/dL Est GFR (CKD-EPI)AfAm >90 (>60 ml/min/1.73 sqM) Est GFR (CKD-EPI)NonAf >90 (>60 ml/min/1.73 sqM) Glucose 203 H (74-99) mg/dL Plasma Lactic Acid Balaji (0.7-2.0) mmol/L Calcium 8.1 L (8.4-10.2) mg/dL Phosphorus 2.4 L (2.5-4.5) mg/dL Magnesium 1.8 (1.6-2.3) mg/dL Total Bilirubin 1.0 (0.2-1.3) mg/dL AST 41 (17-59) U/L ALT 24 (21-72) U/L Alkaline Phosphatase 68 (38-126) U/L Ammonia (<30) umol/L Creatine Kinase 112 (55-170) U/L Troponin I (0.000-0.034) ng/mL Total Protein 5.0 L (6.3-8.2) g/dL Albumin 2.4 L (3.5-5.0) g/dL Lipase 155 (23-300) U/L Serum Alcohol 30 mg/dL Blood Type Blood Type Recheck Bld Type Recheck Status Antibody Screen Spec Expiration Date 01/16/19 01/16/19 01/16/19 Range/Units 11:31 11:31 11:31 WBC 8.1 (3.8-10.6) k/uL RBC 2.28 L (4.30-5.90) m/uL Hgb 5.6 L* D (13.0-17.5) gm/dL Hct 18.8 L* (39.0-53.0) % MCV 82.7 D (80.0-100.0) fL MCH 24.4 L (25.0-35.0) pg MCHC 29.5 L (31.0-37.0) g/dL RDW 21.5 H (11.5-15.5) % Plt Count 216 (150-450) k/uL Neutrophils % 81 % Lymphocytes % 11 % Monocytes % 5 % Eosinophils % 0 % Basophils % 0 % Neutrophils # 6.5 (1.3-7.7) k/uL Lymphocytes # 0.9 L (1.0-4.8) k/uL Monocytes # 0.4 (0-1.0) k/uL Eosinophils # 0.0 (0-0.7) k/uL Basophils # 0.0 (0-0.2) k/uL Hypochromasia Marked Poikilocytosis Slight Anisocytosis Moderate Microcytosis Slight PT (9.0-12.0) sec INR (<1.2) APTT (22.0-30.0) sec VBG pH (7.31-7.41) VBG pCO2 (37-51) mmHg VBG HCO3 (24-28) mmol/L Sodium (137-145) mmol/L Potassium (3.5-5.1) mmol/L Chloride (98-107) mmol/L Carbon Dioxide (22-30) mmol/L Anion Gap mmol/L BUN (9-20) mg/dL Creatinine (0.66-1.25) mg/dL Est GFR (CKD-EPI)AfAm (>60 ml/min/1.73 sqM) Est GFR (CKD-EPI)NonAf (>60 ml/min/1.73 sqM) Glucose (74-99) mg/dL Plasma Lactic Acid Balaji (0.7-2.0) mmol/L Calcium (8.4-10.2) mg/dL Phosphorus (2.5-4.5) mg/dL Magnesium (1.6-2.3) mg/dL Total Bilirubin (0.2-1.3) mg/dL AST (17-59) U/L ALT (21-72) U/L Alkaline Phosphatase (38-126) U/L Ammonia (<30) umol/L Creatine Kinase (55-170) U/L Troponin I <0.012 (0.000-0.034) ng/mL Total Protein (6.3-8.2) g/dL Albumin (3.5-5.0) g/dL Lipase (23-300) U/L Serum Alcohol mg/dL Blood Type A Negative Blood Type Recheck A Neg Bld Type Recheck Status No Antibody Screen POSITIVE Spec Expiration Date 01/19/2019 - 233001/16/19 Range/Units 11:31 WBC (3.8-10.6) k/uL RBC (4.30-5.90) m/uL Hgb (13.0-17.5) gm/dL Hct (39.0-53.0) % MCV (80.0-100.0) fL MCH (25.0-35.0) pg MCHC (31.0-37.0) g/dL RDW (11.5-15.5) % Plt Count (150-450) k/uL Neutrophils % % Lymphocytes % % Monocytes % % Eosinophils % % Basophils % % Neutrophils # (1.3-7.7) k/uL Lymphocytes # (1.0-4.8) k/uL Monocytes # (0-1.0) k/uL Eosinophils # (0-0.7) k/uL Basophils # (0-0.2) k/uL Hypochromasia Poikilocytosis Anisocytosis Microcytosis PT (9.0-12.0) sec INR (<1.2) APTT (22.0-30.0) sec VBG pH (7.31-7.41) VBG pCO2 (37-51) mmHg VBG HCO3 (24-28) mmol/L Sodium (137-145) mmol/L Potassium (3.5-5.1) mmol/L Chloride (98-107) mmol/L Carbon Dioxide (22-30) mmol/L Anion Gap mmol/L BUN (9-20) mg/dL Creatinine (0.66-1.25) mg/dL Est GFR (CKD-EPI)AfAm (>60 ml/min/1.73 sqM) Est GFR (CKD-EPI)NonAf (>60 ml/min/1.73 sqM) Glucose (74-99) mg/dL Plasma Lactic Acid Balaji 7.0 H* (0.7-2.0) mmol/L Calcium (8.4-10.2) mg/dL Phosphorus (2.5-4.5) mg/dL Magnesium (1.6-2.3) mg/dL Total Bilirubin (0.2-1.3) mg/dL AST (17-59) U/L ALT (21-72) U/L Alkaline Phosphatase (38-126) U/L Ammonia 57 H (<30) umol/L Creatine Kinase (55-170) U/L Troponin I (0.000-0.034) ng/mL Total Protein (6.3-8.2) g/dL Albumin (3.5-5.0) g/dL Lipase (23-300) U/L Serum Alcohol mg/dL Blood Type Blood Type Recheck Bld Type Recheck Status Antibody Screen Spec Expiration Date - EKG Data -: EKG Interpreted by Me (EKG shows sinus rhythm rate of 95, TX 1:30, QRS 84, QTc 485) Disposition Clinical Impression: GI bleed, Acute blood loss anemia, ETOH abuse, Hyperammonemia Disposition: HOME SELF-CARE Condition: Fair Is patient prescribed a controlled substance at d/c from ED?: No Referrals: James Meza Jr, DO [Primary Care Provider] - 1-2 days
[2019-01-16 11:44] LABS: Anisocytosis Moderate; Basophils % (A) 0 %; Eosinophils % (A) 0 %; Hypochromasia Marked; Lymphocytes # (A) 0.9 k/uL (1.0-4.8); Lymphocytes % (A) 11 %; MCH 24.4 pg (25.0-35.0); MCHC 29.5 g/dL (31.0-37.0); Mean Platelet Volume 9.8; Microcytosis Slight; Monocytes # (A) 0.4 k/uL (0-1.0); Monocytes % (A) 5 %; Neutrophils # (A) 6.5 k/uL (1.3-7.7); Neutrophils % (A) 81 %; Platelet Count 216 k/uL (150-450); Poikilocytosis Slight; RBC 2.28 m/uL (4.30-5.90); RDW 21.5 % (11.5-15.5); WBC 8.1 k/uL (3.8-10.6)
[2019-01-16 11:45] LABS: VBG PH 7.47 (7.31-7.41)
[2019-01-16 11:51] LABS: INR 1.8 (<1.2); Partial Thromboplastin Time 25.4 sec (22.0-30.0); Prothrombin Time 17.4 sec (9.0-12.0)
[2019-01-16 12:04] LABS: HCT 18.8 % (39.0-53.0); HGB 5.6 gm/dL (13.0-17.5)
[2019-01-16 12:05] LABS: MCV 82.7 fL (80.0-100.0)
[2019-01-16 12:10] LABS: ALT 24 U/L (21-72); AST 41 U/L (17-59); African American GFR (CKD) >90 (>60 ml/min/1.73 sqM); Albumin 2.4 g/dL (3.5-5.0); Alcohol 30 mg/dL; Alkaline Phosphatase 68 U/L (38-126); Anion Gap 11 mmol/L; Blood Urea Nitrogen 17 mg/dL (9-20); Calcium 8.1 mg/dL (8.4-10.2); Carbon Dioxide 18 mmol/L (22-30); Chloride 114 mmol/L (98-107); Glucose 203 mg/dL (74-99); Magnesium 1.8 mg/dL (1.6-2.3); Phosphorus 2.4 mg/dL (2.5-4.5); Potassium 3.4 mmol/L (3.5-5.1); Sodium 143 mmol/L (137-145)
[2019-01-16 12:25] LABS: Creatine Kinase 112 U/L (55-170)
[2019-01-16] MEDS ORDERED: THIAMINE 100 MG/ML 2 ML VIAL IM STA (13:05)
[2019-01-16] MEDS ORDERED: LORazepam 2 MG/ML INJ IV PRN ×3 (13:05)
[2019-01-16 14:27] LABS: Glucose,Whole Blood 149 mg/dL (75-99)
[2019-01-16] MEDS: THIAMINE 100 MG TAB PO SCH (18:02)
[2019-01-16 18:52] LABS: Anisocytosis Moderate; Basophils # (A) 0.1 k/uL (0-0.2); Basophils % (A) 1 %; Eosinophils % (A) 1 %; HCT 22.7 % (39.0-53.0); Hypochromasia Marked; Lymphocytes # (A) 1.3 k/uL (1.0-4.8); Lymphocytes % (A) 15 %; MCH 25.2 pg (25.0-35.0); MCHC 30.1 g/dL (31.0-37.0); MCV 83.7 fL (80.0-100.0); Mean Platelet Volume 7.9; Microcytosis Slight; Monocytes # (A) 0.9 k/uL (0-1.0); Monocytes % (A) 11 %; Neutrophils % (A) 70 %; Platelet Count 120 k/uL (150-450); Poikilocytosis Moderate; RBC 2.71 m/uL (4.30-5.90); WBC 8.5 k/uL (3.8-10.6)
[2019-01-16 18:58] LABS: HGB 6.8 gm/dL (13.0-17.5)
[2019-01-16] MEDS: PANTOPRAZOLE 40 MG/10 ML VIAL IVP SCH (20:15)
[2019-01-16] MEDS: OCTREOTIDE 500 MCG in SODIUM CHLORIDE 0.9% 250 ML IV SCH (20:15)
[2019-01-17] MEDS: HYDROmorphone 1 MG/ML 1 ML SYRINGE IVP PRN ×4 (00:39→23:40)
[2019-01-17 04:46] LABS: ALT 28 U/L (21-72); AST 48 U/L (17-59); African American GFR (CKD) >90 (>60 ml/min/1.73 sqM); Albumin 2.5 g/dL (3.5-5.0); Alkaline Phosphatase 62 U/L (38-126); Anion Gap 6 mmol/L; Blood Urea Nitrogen 20 mg/dL (9-20); Calcium 7.7 mg/dL (8.4-10.2); Carbon Dioxide 22 mmol/L (22-30); Chloride 113 mmol/L (98-107); Glucose 103 mg/dL (74-99); Potassium 3.9 mmol/L (3.5-5.1); Sodium 141 mmol/L (137-145); Total Bilirubin 1.9 mg/dL (0.2-1.3); Total Protein 5.2 g/dL (6.3-8.2)
[2019-01-17 04:55] LABS: INR 1.5 (<1.2); Partial Thromboplastin Time 26.4 sec (22.0-30.0); Prothrombin Time 15.3 sec (9.0-12.0)
[2019-01-17 04:56] LABS: Anisocytosis Slight; Basophils # (A) 0.1 k/uL (0-0.2); Basophils % (A) 1 %; Eosinophils # (A) 0.2 k/uL (0-0.7); Eosinophils % (A) 3 %; HCT 21.4 % (39.0-53.0); Hypochromasia Marked; Lymphocytes # (A) 1.3 k/uL (1.0-4.8); Lymphocytes % (A) 20 %; MCH 26.2 pg (25.0-35.0); MCHC 31.2 g/dL (31.0-37.0); MCV 83.9 fL (80.0-100.0); Mean Platelet Volume 8.6; Microcytosis Slight; Monocytes # (A) 0.7 k/uL (0-1.0); Monocytes % (A) 11 %; Neutrophils # (A) 4.1 k/uL (1.3-7.7); Neutrophils % (A) 61 %; Poikilocytosis Slight; RBC 2.56 m/uL (4.30-5.90); RDW 19.9 % (11.5-15.5); WBC 6.6 k/uL (3.8-10.6)
[2019-01-17 05:11] LABS: HGB 6.7 gm/dL (13.0-17.5)
[2019-01-17 05:22] LABS: Ovalocytes Present; Platelet Count 95 k/uL (150-450); Target Cells Present
[2019-01-17] MEDS: OCTREOTIDE 500 MCG in SODIUM CHLORIDE 0.9% 250 ML IV SCH ×2 (06:20→16:14)
[2019-01-17] MEDS: MULTIVITAMINS, THERA 1 EACH TAB PO SCH (07:29)
[2019-01-17] MEDS: THIAMINE 100 MG TAB PO SCH ×2 (07:29→17:00)
[2019-01-17] MEDS: PANTOPRAZOLE 40 MG/10 ML VIAL IVP SCH ×2 (07:32→20:41)
--- NOTE | 2019-01-17 07:39 | CONS ---
CONSULTATION PULMONARY/CRITICAL CARE CONSULTATION: DATE OF CONSULTATION: January 17, 2019 REASON FOR CONSULTATION: GI bleed. This is a 43-year-old male who presents to the emergency department just not feeling well. He apparently was feeling very weak. He also admitted to blood in his stools. He was complaining of nausea and vomiting as well. He apparently been drinking the night before. He does have a history of alcoholic liver disease with alcoholic cirrhosis and apparently has a history of esophageal varices. This is from the ER physician. He was weak and confused in the emergency room. He denies any chest pain or chest discomfort. There is no shortness of breath. No fever or chills. He apparently had noted blood on the toilet paper when he had a bowel movement and also blood-streaked stools. He was seen in the emergency room and admitted with a diagnosis of acute GI bleed, suspected source is the esophagus and/or stomach. Since he has been here, he has received 3 units of PRBCs and 2 units of fresh frozen plasma. This morning his hemoglobin is 6.7. I am going to go ahead and give him one more unit of blood. Currently, he is on O2 at 3 L/minute. He is getting octreotide at 50 mcg/hour and saline IV at 100 mL an hour. MEDICATIONS: His current home medications include folic acid, multivitamins, thiamine, Lasix Protonix, Inderal and Aldactone. ALLERGIES: Allergies are denied. MEDICAL HISTORY: His medical history includes chronic bronchial asthma, previous history of GI bleed, alcoholic liver disease, pneumonia, chronic alcohol abuse, cirrhosis, abdominal ascites, pancreatitis, gallstones, kidney stones, chronic anemia, bleeding esophageal varices, and a prior history of MRSA infection of one of his right fingers. SURGICAL HISTORY: Surgical history includes appendectomy, cholecystectomy, EGD, colonoscopy, paracentesis, right tendon repair, right knee arthroscopy, cystoscopy for kidney stone removal, and previous blood transfusions. SOCIAL HISTORY: Social history is positive for ongoing tobacco use. He drinks alcohol every day and he smokes marijuana as well. FAMILY HISTORY: His family history is positive for mother with hypertension and a father with prostate issues and a brain aneurysm. REVIEW OF SYSTEMS: CONSTITUTIONAL: Weakness. NEUROLOGIC: Negative. HEENT: Negative. CARDIOVASCULAR: Negative. PULMONARY: Negative. GI: Blood in stools, black tarry stools. : Negative. RHEUMATOLOGIC: Negative. IMMUNOLOGIC: Negative. ENDOCRINOLOGIC: Negative. DERMATOLOGIC: Negative. PHYSICAL EXAMINATION: VITAL SIGNS: Current vital signs are reviewed. Temperature is 98.6, heart rate 65, respiratory rate 24, blood pressure 117/66, mean 83 and saturations are 96% on 3 L. GENERAL: Appears in no acute distress. Currently sleeping. No respiratory distress. HEENT: Examination is grossly unremarkable. Mucous membranes are dry. NECK: Supple. Full range of motion. No adenopathy or thyromegaly. Neck veins are flat. CARDIOVASCULAR: Examination reveals regular rhythm and rate. Heart rate 65. S1, S2 normal. LUNGS: Reveal relatively clear breath sounds. No wheezes, rhonchi, or crackles. ABDOMEN: Soft. Bowel sounds are heard. EXTREMITIES: Are intact. No cyanosis, clubbing, or edema. SKIN: Without rash. NEUROLOGIC: Examination is difficult to assess. He is very sleepy. He does arouse. He does move all 4 extremities. LABORATORY DATA: Laboratory data includes a white count of 6.6, morning hemoglobin of 6.7, hematocrit 21.4, platelet count is 95,000. PT 15.3, INR 1.5, PTT 26.4. Sodium 141, potassium 3.9, chloride 113, CO2 of 22. BUN and creatinine were 20 and 0.59. Lactic acid was initially 3, repeat 1.2. Albumin 2.5. Serum alcohol was 30. No chest x-ray. EKG shows normal sinus rhythm with a rate of about 90 beats per minute. ASSESSMENT: 1. Acute gastrointestinal bleed, likely from either esophageal and/or gastric source. 2. Ongoing alcohol abuse with alcoholic liver disease and cirrhosis. 3. Prior history of gastrointestinal bleed and bleeding esophageal varices. 4. History of mild asthma. 5. History of abdominal ascites. 6. History of pancreatitis. 7. History of gallstones. 8. History of kidney stones. 9. Chronic anemia. 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 11.Mild coagulopathy secondary to liver disease. 12.Status post a total of 3 units of PRBCs and 2 units of fresh frozen plasma since his admission to the hospital with another unit going to be transfused today. PLAN: Prognosis is guarded. GI has been consulted. Will get one additional unit of blood. He was started on octreotide at 50 mcg/hour. He has been fluid resuscitated. He has received 3 units of PRBCs, 2 units of fresh frozen plasma. Additional recommendations and suggestions are forthcoming. MMODL / IJN: [id number] /
[2019-01-17] MEDS: SODIUM CHLORIDE 0.9% 1,000 ML IV SCH ×2 (08:33→17:01)
[2019-01-17] MEDS: NICOTINE 21MG/24HR PATCH TRANSDERM SCH (09:53)
--- NOTE | 2019-01-17 10:36 | P.HPIM ---
History of Present Illness H&P Date: 01/17/19 Chief Complaint: Rectal Bleeding This is a 43-year-old gentleman with history of esophageal varices, banding, portal hypertension ,ongoing alcohol abuse, liver cirrhosis, GI bleeds, noncompliant with medication regimen and multiple other medical issues admitted with complaints of hemoptysis, melena with nausea, vomiting. Reports ongoing alcohol consumption, with recent drinking-last night. Complains of periumbilical pain more to the right, which she reports is chronic. Denies fevers or chills. Reports confusion, generalized weakness, falls, lightheadedness. Denies chest pain, palpitations or shortness of breath. Hemoglobin on admission 5.6, received 3 units of RBCs, 2 FFP with current hemoglobin up to 6.7, platelets 95 currently receiving 4th unit of PRBC. INR 1.8, now down to 1.5. T bili 1.9, ammonia 57. Albumin 2.5. Serum alcohol 30. Less acid 3, repeat 1.2. Sodium 141, potassium 3.9, BUN/creatinine 20/0.59. EKG reporting sinus rhythm. Receiving IV fluids, Protonix and Zofran, admitted to the ICU. Maintained on Sandostatin currently at 50 mcgs. Denies any further hemoptysis, melena. GI consulted and patient is scheduled for EGD today. Colin becker maintaining O2 sats in the 90s on 3 L nasal cannula. Review of Systems .ROS Statement: Those systems with pertinent positive or pertinent negative responses have been documented in the HPI. ROS Other: All systems not noted in ROS Statement are negative. Past Medical History Past Medical History: Asthma, GI Bleed, Liver Disease, Pneumonia Additional Past Medical History / Comment(s): ETOH abuse, liver cirrhosis, abdominal ascites, pancreatitis, multiple gallstones, nephrolithiasis, chronic anemia, esophageal varices, hx urinating blood and kidneys stone History of Any Multi-Drug Resistant Organisms: MRSA Date of last positivie culture/infection: 12/09/13 MDRO Source:: Right first finger Past Surgical History: Appendectomy, Cholecystectomy, Orthopedic Surgery Additional Past Surgical History / Comment(s): 07/09/17 EGD/colonoscopy, paracentesis, right hand tendon repair, right knee arthroscopy, cystoscopy for kidney stone removal, right hand ring finger surgery. blood transfusions. Past Anesthesia/Blood Transfusion Reactions: Previous Problems w/ Anesthesia Additional Past Anesthesia/Blood Transfusion Reaction / Comment(s): Woke up during scope procedure. Past Psychological History: PTSD Additional Psychological History / Comment(s): PT currently resides with his parents. active alcohol use. No current recreational drug use. No current injection drug use. Nonemployed. and complains about that situation Smoking Status: Current every day smoker Past Alcohol Use History: Abuse, Daily Additional Past Alcohol Use History / Comment(s): Pt states he started smoking in 1990 and is a pack a day smoker. PT states reduced the amount of alcohol to a few days a week, drinking 5 12oz cans of beer on those occasions. Pt states used to drink a fifth or 1/2 gallon and some beers daily. Past Drug Use History: Marijuana Additional Drug Use History / Comment(s): Pt states he smokes marijuana on occasion. No other drug use. - Past Family History Mother Family Medical History: Hypertension Father Additional Family Medical History / Comment(s): Prostate issues. Brain aneurysm. Medications and Allergies Home Medications Medication Instructions Recorded Confirmed Type Folic Acid 1 mg PO DAILY@1200 09/01/17 01/16/19 History Thiamine [Vitamin B-1] 100 mg PO DAILY #30 tablet 09/03/17 01/16/19 Rx Furosemide [Lasix] 40 mg PO BID #60 tablet 12/06/18 01/16/19 Rx Pantoprazole Sodium [Protonix] 40 mg PO DAILY #30 tablet. 12/06/18 01/16/19 Rx Propranolol [Inderal] 10 mg PO TID #90 tab 12/06/18 01/16/19 Rx Spironolactone [Aldactone] 100 mg PO DAILY #30 tab 12/06/18 01/16/19 Rx Multivitamins, Thera [Multivitamin 1 tab PO DAILY@1200 12/14/18 01/16/19 History (formulary)] Allergies Allergy/AdvReac Type Severity Reaction Status Date / Time No Known Allergies Allergy Verified 01/16/19 11:22 Physical Exam Vitals: Vital Signs Temp Pulse Pulse Pulse Resp BP BP 01/17/19 09:00 70 12 115/79 01/17/19 08:49 97.7 F 66 12 115/79 01/17/19 08:17 97.7 F 62 12 116/60 01/17/19 08:00 98.1 F 61 12 110/77 01/17/19 07:40 66 11 L 115/84 01/17/19 07:34 98 F 65 12 110/70 01/17/19 07:30 61 12 114/70 01/17/19 07:24 98.1 F 65 12 115/69 01/17/19 07:04 98.6 F 74 12 143/81 01/17/19 07:00 66 13 122/66 01/17/19 06:54 98.6 F 64 13 122/66 01/17/19 06:00 67 15 108/69 01/17/19 05:00 65 24 117/66 01/17/19 04:00 98.6 F 70 12 103/67 01/17/19 03:00 87 14 107/71 01/17/19 02:00 99 20 106/64 01/17/19 01:00 86 12 128/68 01/17/19 00:00 98.7 F 75 17 138/75 01/16/19 23:01 71 19 132/74 01/16/19 23:00 78 18 125/72 01/16/19 22:57 98.6 F 67 14 125/72 01/16/19 22:43 98.6 F 73 18 124/72 01/16/19 22:30 98.6 F 83 18 108/76 01/16/19 22:00 70 16 142/82 01/16/19 21:58 98.8 F 79 18 121/62 01/16/19 21:28 98.7 F 81 17 130/82 01/16/19 21:18 98.9 F 77 18 143/76 01/16/19 21:15 99.5 F 81 17 124/78 01/16/19 21:00 99.1 F 78 17 139/92 01/16/19 20:00 84 21 131/82 01/16/19 19:00 97.7 F 94 69 19 120/67 90/55 01/16/19 18:00 80 17 140/78 01/16/19 17:22 98.4 F 77 16 136/73 01/16/19 17:00 78 23 127/80 01/16/19 16:27 98.6 F 84 14 127/77 01/16/19 16:15 98.7 F 85 16 143/87 01/16/19 16:00 98.7 F 87 18 108/64 01/16/19 15:39 97.9 F 97 14 108/64 01/16/19 15:14 98.3 F 101 H 16 107/61 01/16/19 15:01 98 F 100 16 111/64 01/16/19 15:00 98 16 111/64 01/16/19 14:20 98.2 F 90 16 114/69 01/16/19 14:00 97.5 F L 98 16 115/82 01/16/19 13:30 102 H 15 112/72 01/16/19 13:00 106 H 22 103/66 01/16/19 12:30 108 H 22 102/63 01/16/19 12:10 95 24 96/56 01/16/19 12:00 93 24 100/60 01/16/19 11:50 89 13 100/60 01/16/19 11:40 100 25 H 114/58 01/16/19 11:30 95 26 H 107/65 01/16/19 11:20 101 H 25 H 107/65 01/16/19 11:12 01/16/19 11:01 98.0 F 96 24 100/61 Pulse Ox 01/17/19 09:00 92 L 01/17/19 08:49 93 L 01/17/19 08:17 93 L 01/17/19 08:00 93 L 01/17/19 07:40 93 L 01/17/19 07:34 93 L 01/17/19 07:30 92 L 01/17/19 07:24 94 L 01/17/19 07:04 93 L 01/17/19 07:00 92 L 01/17/19 06:54 93 L 01/17/19 06:00 97 01/17/19 05:00 96 01/17/19 04:00 96 01/17/19 03:00 97 01/17/19 02:00 95 01/17/19 01:00 89 L 01/17/19 00:00 93 L 01/16/19 23:01 96 01/16/19 23:00 95 01/16/19 22:57 96 01/16/19 22:43 94 L 01/16/19 22:30 94 L 01/16/19 22:00 95 01/16/19 21:58 94 L 01/16/19 21:28 95 01/16/19 21:18 95 01/16/19 21:15 96 01/16/19 21:00 95 01/16/19 20:00 98 01/16/19 19:00 96 01/16/19 18:00 98 01/16/19 17:22 100 01/16/19 17:00 97 01/16/19 16:27 97 01/16/19 16:15 97 01/16/19 16:00 99 01/16/19 15:39 94 L 01/16/19 15:14 95 01/16/19 15:01 95 01/16/19 15:00 95 01/16/19 14:20 98 01/16/19 14:00 96 01/16/19 13:30 100 01/16/19 13:00 77 L 01/16/19 12:30 99 01/16/19 12:10 98 01/16/19 12:00 99 01/16/19 11:50 98 01/16/19 11:40 99 01/16/19 11:30 100 01/16/19 11:20 100 01/16/19 11:12 100 01/16/19 11:01 100 Intake and Output 01/16/19 01/17/19 01/17/19 22:59 06:59 14:59 Intake Total 2803 2506 685 Output Total 1000 600 Balance 1803 1906 685 Intake: IV 375 1000 375 Octreotide 500 mcg In 75 200 75 Sodium Chloride 0.9% 250 ml @ 50 MCG/HR 25 mls/hr IV .Q10H RADHA Rx#: [id number] Sodium Chloride 0.9% 1, 300 800 300 000 ml @ 100 mls/hr IV . Q10H STA Rx#:[id number] Intake, IV Titration 500 250 Amount Octreotide 500 mcg In 250 Sodium Chloride 0.9% 250 ml @ 50 MCG/HR 25 mls/hr IV .Q10H RADHA Rx#: [id number] Sodium Chloride 0.9% 1, 500 000 ml @ 100 mls/hr IV . Q10H STA Rx#:[id number] Oral 720 Blood Product 1208 1256 310 Ffp 24 Cpd Unit 278 [id number] Ffp 24 Cpd Unit 0 334 [id number] Rc As-1 Unit 310 [id number] Rc As-1 Unit 310 [id number] Rc As-1 Unit 0 310 [id number] Rc Pheresis 2 As3 Unit 310 [id number] Output: Stool 600 600 Urine/Stool Mix 400 Other: Weight 87.5 kg General: [Patient sitting up in bed, awake, alert and oriented times 3. no acute distress. Tired appearing. HEENT: [PERRL. EOMI. No pharyngeal erythema or exudate. Oral mucosa dry Neck: [Supple, No adenopathy.] Cardiac: [Heart regular in rate and rhythm. No S3. No S4. No clicks, rubs. No murmur.] Lungs: [Clear to auscultation bilaterally. No rhonchi, crackles, no wheezes Abdomen: [Soft, nontender, mildly distended,ascites .No mass palpable. No guarding. Bowel sounds presnt and normoactive in all 4 quadrants.] Extremities: [No edema no cyanosis no claudication normal pulses] Musculoskeletal: [No joint erythema, edema or tenderness.] Skin: [No rash. Neurologic:CN II - XII grossly intact. No gross focal deficits. Results CBC & Chem 7: 01/17/19 04:40 01/17/19 04:12 Labs: Abnormal Lab Results - Last 24 Hours (Table) 01/16/19 01/16/19 01/16/19 Range/Units 11:31 11:31 11:31 RBC (4.30-5.90) m/uL Hgb (13.0-17.5) gm/dL Hct (39.0-53.0) % MCH (25.0-35.0) pg MCHC (31.0-37.0) g/dL RDW (11.5-15.5) % Plt Count (150-450) k/uL Lymphocytes # (1.0-4.8) k/uL PT 17.4 H (9.0-12.0) sec INR 1.8 H (<1.2) VBG pH 7.47 H (7.31-7.41) VBG pCO2 23 L (37-51) mmHg VBG HCO3 16 L (24-28) mmol/L Potassium 3.4 L (3.5-5.1) mmol/L Chloride 114 H (98-107) mmol/L Carbon Dioxide 18 L (22-30) mmol/L Creatinine 0.63 L (0.66-1.25) mg/dL Glucose 203 H (74-99) mg/dL POC Glucose (mg/dL) (75-99) mg/dL Plasma Lactic Acid Balaji (0.7-2.0) mmol/L Calcium 8.1 L (8.4-10.2) mg/dL Phosphorus 2.4 L (2.5-4.5) mg/dL Total Bilirubin (0.2-1.3) mg/dL Ammonia (<30) umol/L Total Protein 5.0 L (6.3-8.2) g/dL Albumin 2.4 L (3.5-5.0) g/dL Crossmatch 01/16/19 01/16/19 01/16/19 Range/Units 11:31 11:31 11:31 RBC 2.28 L (4.30-5.90) m/uL Hgb 5.6 L* D (13.0-17.5) gm/dL Hct 18.8 L* (39.0-53.0) % MCH 24.4 L (25.0-35.0) pg MCHC 29.5 L (31.0-37.0) g/dL RDW 21.5 H (11.5-15.5) % Plt Count (150-450) k/uL Lymphocytes # 0.9 L (1.0-4.8) k/uL PT (9.0-12.0) sec INR (<1.2) VBG pH (7.31-7.41) VBG pCO2 (37-51) mmHg VBG HCO3 (24-28) mmol/L Potassium (3.5-5.1) mmol/L Chloride (98-107) mmol/L Carbon Dioxide (22-30) mmol/L Creatinine (0.66-1.25) mg/dL Glucose (74-99) mg/dL POC Glucose (mg/dL) (75-99) mg/dL Plasma Lactic Acid Balaji 7.0 H* (0.7-2.0) mmol/L Calcium (8.4-10.2) mg/dL Phosphorus (2.5-4.5) mg/dL Total Bilirubin (0.2-1.3) mg/dL Ammonia 57 H (<30) umol/L Total Protein (6.3-8.2) g/dL Albumin (3.5-5.0) g/dL Crossmatch See Detail 01/16/19 01/16/19 01/16/19 Range/Units 14:24 15:43 18:40 RBC 2.71 L (4.30-5.90) m/uL Hgb 6.8 L* (13.0-17.5) gm/dL Hct 22.7 L (39.0-53.0) % MCH (25.0-35.0) pg MCHC 30.1 L (31.0-37.0) g/dL RDW 20.0 H (11.5-15.5) % Plt Count 120 L (150-450) k/uL Lymphocytes # (1.0-4.8) k/uL PT (9.0-12.0) sec INR (<1.2) VBG pH (7.31-7.41) VBG pCO2 (37-51) mmHg VBG HCO3 (24-28) mmol/L Potassium (3.5-5.1) mmol/L Chloride (98-107) mmol/L Carbon Dioxide (22-30) mmol/L Creatinine (0.66-1.25) mg/dL Glucose (74-99) mg/dL POC Glucose (mg/dL) 149 H (75-99) mg/dL Plasma Lactic Acid Balaji 2.8 H* (0.7-2.0) mmol/L Calcium (8.4-10.2) mg/dL Phosphorus (2.5-4.5) mg/dL Total Bilirubin (0.2-1.3) mg/dL Ammonia (<30) umol/L Total Protein (6.3-8.2) g/dL Albumin (3.5-5.0) g/dL Crossmatch 01/16/19 01/16/19 01/17/19 Range/Units 18:45 20:35 04:12 RBC (4.30-5.90) m/uL Hgb (13.0-17.5) gm/dL Hct (39.0-53.0) % MCH (25.0-35.0) pg MCHC (31.0-37.0) g/dL RDW (11.5-15.5) % Plt Count (150-450) k/uL Lymphocytes # (1.0-4.8) k/uL PT 15.3 H (9.0-12.0) sec INR 1.5 H (<1.2) VBG pH (7.31-7.41) VBG pCO2 (37-51) mmHg VBG HCO3 (24-28) mmol/L Potassium (3.5-5.1) mmol/L Chloride (98-107) mmol/L Carbon Dioxide (22-30) mmol/L Creatinine (0.66-1.25) mg/dL Glucose (74-99) mg/dL POC Glucose (mg/dL) (75-99) mg/dL Plasma Lactic Acid Balaji 3.0 H* (0.7-2.0) mmol/L Calcium (8.4-10.2) mg/dL Phosphorus (2.5-4.5) mg/dL Total Bilirubin (0.2-1.3) mg/dL Ammonia (<30) umol/L Total Protein (6.3-8.2) g/dL Albumin (3.5-5.0) g/dL Crossmatch See Detail 01/17/19 01/17/19 Range/Units 04:12 04:40 RBC 2.56 L (4.30-5.90) m/uL Hgb 6.7 L* (13.0-17.5) gm/dL Hct 21.4 L (39.0-53.0) % MCH (25.0-35.0) pg MCHC (31.0-37.0) g/dL RDW 19.9 H (11.5-15.5) % Plt Count 95 L (150-450) k/uL Lymphocytes # (1.0-4.8) k/uL PT (9.0-12.0) sec INR (<1.2) VBG pH (7.31-7.41) VBG pCO2 (37-51) mmHg VBG HCO3 (24-28) mmol/L Potassium (3.5-5.1) mmol/L Chloride 113 H (98-107) mmol/L Carbon Dioxide (22-30) mmol/L Creatinine 0.59 L (0.66-1.25) mg/dL Glucose 103 H (74-99) mg/dL POC Glucose (mg/dL) (75-99) mg/dL Plasma Lactic Acid Balaji (0.7-2.0) mmol/L Calcium 7.7 L (8.4-10.2) mg/dL Phosphorus (2.5-4.5) mg/dL Total Bilirubin 1.9 H (0.2-1.3) mg/dL Ammonia (<30) umol/L Total Protein 5.2 L (6.3-8.2) g/dL Albumin 2.5 L (3.5-5.0) g/dL Crossmatch Thrombosis Risk Factor Assmnt - Choose All That Apply Each Factor Represents 1 point: Medical pt on bed rest, Swollen legs (current) Thrombosis Risk Factor Assessment Total Risk Factor Score: 2 Thrombosis Risk Factor Assessment Level: Low Risk Assessment and Plan Assessment: -Acute on chronic blood loss anemia secondary to Acute GI bleed in a patient with history of esophageal varices with multiple bandings, liver cirrhosis, portal hypertension, ongoing alcohol abuse. Status post 4 units of packed RBCs, 2 units of FFP. -Ongoing EtOH abuse -Portal hypertension -Alcohol liver Cirrhosis with ascites. Last paracentesis 09/05/2018; cytology and cultures negative. -Coagulopathy secondary to liver disease -Hyperammonemia -Ongoing nicotine dependence -Nephrolithiasis Plan: Continue on current medication regime ,monitoring and symptomatic treatment. Scheduled for EGD today with GI .Currently receiving 4th unit of packed RBCs. IV fluid resuscitation, PPI, Sandostatin.Serial CBCs. Alcohol, smoking cessation readdressed .Prognosis guarded given multiple complex medical issues. Further recommendations to follow. The impression and plan of care has been dictated as directed. : I performed a history and examination of this patient, discussed the same with the dictator. I agree with the dictator's note ,documented as a scribe. Any additional findings or plans will be noted. Time taken: 35 minutes
[2019-01-17] MEDS ORDERED: Magnesium Replacement Protocol 1 EACH MISC MISCELLANE PRN (10:54)
[2019-01-17] MEDS ORDERED: LIDOCAINE 1% INJ 10MG/ML (20 ML MDV) ONE (10:56)
[2019-01-17] MEDS ORDERED: PROPOFOL 10 MG/ML 20 ML VIAL IV ONE (10:56)
[2019-01-17] MEDS ORDERED: IV FLUID CONTINUATION 1,000 ML IV ONE ×2 (10:58)
--- NOTE | 2019-01-17 11:28 | P.PCN ---
Date of Procedure: 01/17/19 Description of Procedure: BRIEF HISTORY: 43-year-old gentleman with history of decompensated alcoholic cirrhosis with portal hypertension, esophageal varices requiring banding in the past and a ascites, ongoing alcohol abuse and previous hospitalizations for GI bleeding who presented to the hospital with a constellation of complaints including melena, nausea and vomiting. The patient continues to actively drink alcohol and serum alcohol on presentation was 30. Other laboratory evaluation on presentation was significant for an INR 1.8, total bilirubin 1.9, ammonia 57, lactic acid 3. Last EGD was in November at which time patient had 6 bands placed, and has required variceal band ligation on other occasions as well. PROCEDURE PERFORMED: Esophagogastroduodenoscopy with variceal banding. PREOPERATIVE DIAGNOSIS: Upper GI bleed, history of varices, anemia acute blood loss. ESTIMATED BLOOD LOSS: Minimal. IV sedation per anesthesia. PROCEDURE: After informed consent was obtained, the patient was brought into the endoscopy unit. IV sedation was administered by Anesthesia under continuous monitoring. Initially the Olympus GIF-190 video endoscope was inserted into the mouth. Esophagus intubated without any difficulty. It was gradually advanced into the stomach and duodenum and carefully examined. The bulb and the second part of the duodenum where a 1 cm cratered nonbleeding ulcer in the duodenal bulb without evidence of active bleeding or stigmata for bleeding was noted. The scope at this time was withdrawn to the stomach, adequately insufflated with air, and upon careful examination, mucosa of the antrum, body, cardia and the fundus appeared grossly normal with no old blood or active blood seen. There was evidence of portal hypertensive gastropathy in the cardia, fundus and body of the stomach. No active bleeding in the stomach was noted. The scope was then withdrawn into the esophagus. The GE junction was located at 40 cm from the incisors. Varices were noted in the distal esophagus just above the GE junction, without any high risk stigmata with 3 variceal bands placed in a spiral fashion starting from the distal esophagus and moving proximally. The patient tolerated the procedure well. IMPRESSION: 1. Variceal band ligation with 3 bands placed over varices in the distal esophagus. 2. 1 cm cratered duodenal ulcer without high-risk stigmata for bleeding. 3. Portal hypertensive gastropathy. 4. No active bleeding, or old blood noted. RECOMMENDATIONS: The findings of this examination were discussed with the patient. Okay for liquids. Continue Protonix IV. Continue ceftriaxone 1 g daily. Continue to monitor for signs or symptoms of GI bleeding. Recommend alcohol abstinence. Monitor for alcohol withdrawal.
[2019-01-17] MEDS: MAGNESIUM SULFATE-D5W PMX 1 GM in DEXTROSE/WATER 1 100ML.BAG IVPB SCH ×2 (11:47→12:36)
[2019-01-17 14:03] LABS: Anisocytosis Slight; HCT 24.7 % (39.0-53.0); Hypochromasia Moderate; MCH 27.2 pg (25.0-35.0); MCHC 33.7 g/dL (31.0-37.0); MCV 80.8 fL (80.0-100.0); Mean Platelet Volume 9.7; Microcytosis Slight; Poikilocytosis Marked; RBC 3.05 m/uL (4.30-5.90); RDW 19.8 % (11.5-15.5); WBC 6.5 k/uL (3.8-10.6)
[2019-01-17 14:04] LABS: Platelet Count 77 k/uL (150-450)
[2019-01-17 14:05] LABS: HGB 8.3 gm/dL (13.0-17.5)
[2019-01-17 20:41] LABS: Anisocytosis Slight; HCT 26.4 % (39.0-53.0); HGB 8.4 gm/dL (13.0-17.5); Hypochromasia Marked; MCH 26.8 pg (25.0-35.0); MCHC 31.6 g/dL (31.0-37.0); MCV 84.8 fL (80.0-100.0); Mean Platelet Volume 9.5; Platelet Count 100 k/uL (150-450); Poikilocytosis Marked; RBC 3.12 m/uL (4.30-5.90); RDW 19.5 % (11.5-15.5)
--- NOTE | 2019-01-17 22:20 | CONS ---
CONSULTATION DATE OF DICTATION: 01/17/2019 REASON FOR CONSULTATION: Acute GI bleed. HISTORY OF PRESENT ILLNESS: The patient is a 43-year-old white male with history of alcoholic cirrhosis of the liver with ongoing alcohol abuse with multiple recent hospitalizations with acute upper GI bleed requiring upper endoscopies with variceal ligation. His last hospitalization was about 3 weeks ago, at which time he was transferred to [facility] and, according to the patient, he underwent an upper endoscopy with variceal ligation. He presents to the hospital complaining of generalized weakness, lightheadedness, multiple episodes of maroon-colored stools as well as one episode of coffee-grounds emesis. He came into the emergency room yesterday and subsequently was admitted to the hospital for further evaluation. Initial hemoglobin was 5.6 g/dL and so far he has received 3 units of PRBC transfusion. This morning he states that he has some epigastric discomfort. No further episodes of nausea, vomiting. He had one maroon-colored stool early this morning. He was started on IV Sandostatin drip yesterday and was given 2 units of fresh frozen plasma. PAST MEDICAL HISTORY: His past medical history is significant for: 1. Alcohol abuse. 2. Esophageal variceal bleeding. 3. Liver cirrhosis. 4. Prior history of pancreatitis. PAST SURGICAL HISTORY: 1. Cholecystectomy. 2. Appendectomy. 3. Multiple EGDs, as mentioned above, the last one at [facility] about 3 weeks ago, reports of which are not available at the time of this dictation. SOCIAL HISTORY: Heavy alcohol use of several years' duration. Chronic smoker. FAMILY HISTORY: Mother has hypertension. Father had brain aneurysm. MEDICATIONS: Medications at home include: 1. Folic acid. 2. Vitamin B1. 3. Lasix. 4. Protonix. 5. Inderal. 6. Aldactone. 7. Multivitamin. ALLERGIES: NONE. REVIEW OF SYSTEMS: CARDIOPULMONARY: No chest pain or shortness of breath. GENITOURINARY: No dysuria or hematuria. MUSCULOSKELETAL: Chronic back pain. NEUROLOGY: Unremarkable. PSYCHIATRIC: Unremarkable. ENT/VISION: Unremarkable. CONSTITUTIONAL: No recent weight loss. No fever, chills, night sweats. HEMATOLOGY: Anemia. PHYSICAL EXAMINATION: He appears comfortable. No apparent distress. VITAL SIGNS: Stable. Blood pressure is 114/79, pulse rate 68 and afebrile. HEENT EXAMINATION: Unremarkable. Conjunctivae pale. Sclerae anicteric. Oral cavity no lesions. NECK: No JVD or lymph node enlargement. CHEST: Clear to auscultation. HEART: Regular rate and rhythm. ABDOMEN: Soft. It was nontender, nondistended. Bowel sounds are positive. No organomegaly. No evidence of ascites. EXTREMITIES: No pedal edema. SKIN: No rashes. NEUROLOGIC: Alert and oriented x3. No focal deficits. LABS: Labs done at the time of admission to the hospital: WBC was 5.6, hemoglobin 8.1, platelets 216. PT/INR 1.8. Plasma lactic acid was 7 and this morning it is 1.2. ALT and AST are within normal limits. T-bilirubin and alkaline phosphatase are normal. Ammonia level was 57. Serum alcohol 30. IMPRESSION: 1. Acute upper gastrointestinal bleed, most likely esophageal variceal, most likely recurrent esophageal variceal bleeding. He had multiple upper endoscopies by Dr. Harrington for esophageal variceal ligation. The last one performed by him was in November of 2018. Last hospitalization in December of 2018; he was transferred to [facility] and according to the patient, he underwent a repeat upper endoscopy with variceal ligation, but he does not recall the details. He presents to the hospital with severe anemia and active GI bleed requiring admission to the intensive care unit. So far he received 3 units of blood transfusion and 2 units of FFP. Repeat CBC is still pending. Presently on IV Sandostatin drip and IV Protonix 40 mg q.12 hours. 2. Active alcohol abuse. 3. Alcoholic cirrhosis of the liver with portal hypertension and prior history of ascites. 4. Mild coagulopathy secondary to chronic liver disease. 5. Elevated ammonia/hepatic encephalopathy. RECOMMENDATIONS: 1. Continue with IV Sandostatin drip. 2. Continue with Protonix 40 mg twice daily. 3. CBC every 6 hours and transfuse as needed if the hemoglobin is less than 7. 4. Will proceed with an upper endoscopy today. 5. Will start him on IV Levaquin for GI prophylaxis to prevent spontaneous bacterial peritonitis in the setting of active upper GI bleed. Thank you for this consultation. Will follow the patient closely during his hospital stay. MMODL / IJN: [id number] /
[2019-01-18] MEDS: OCTREOTIDE 500 MCG in SODIUM CHLORIDE 0.9% 250 ML IV SCH ×3 (01:52→21:07)
[2019-01-18 03:48] LABS: Anisocytosis Slight; HCT 22.1 % (39.0-53.0); Hypochromasia Marked; MCH 26.6 pg (25.0-35.0); MCHC 31.5 g/dL (31.0-37.0); MCV 84.6 fL (80.0-100.0); Mean Platelet Volume 9.9; Poikilocytosis Marked; RBC 2.61 m/uL (4.30-5.90); RDW 19.3 % (11.5-15.5); WBC 4.1 k/uL (3.8-10.6)
[2019-01-18 04:11] LABS: African American GFR (CKD) >90 (>60 ml/min/1.73 sqM); Anion Gap 6 mmol/L; Blood Urea Nitrogen 14 mg/dL (9-20); Calcium 6.9 mg/dL (8.4-10.2); Carbon Dioxide 18 mmol/L (22-30); Chloride 117 mmol/L (98-107); Glucose 105 mg/dL (74-99); Magnesium 1.9 mg/dL (1.6-2.3); Potassium 3.3 mmol/L (3.5-5.1); Sodium 141 mmol/L (137-145)
[2019-01-18 04:29] LABS: Platelet Count 90 k/uL (150-450)
[2019-01-18] MEDS: MAGNESIUM SULFATE-D5W PMX 1 GM in DEXTROSE/WATER 1 100ML.BAG IVPB SCH ×2 (05:42→06:52)
[2019-01-18] MEDS: SODIUM CHLORIDE 0.9% 1,000 ML IV SCH ×2 (05:42→15:09)
[2019-01-18] MEDS: THIAMINE 100 MG TAB PO SCH ×2 (06:57→18:10)
[2019-01-18] MEDS: HYDROmorphone 1 MG/ML 1 ML SYRINGE IVP PRN ×3 (07:58→21:03)
[2019-01-18] MEDS: MULTIVITAMINS, THERA 1 EACH TAB PO SCH (08:03)
[2019-01-18] MEDS: PANTOPRAZOLE 40 MG/10 ML VIAL IVP SCH ×2 (08:03→21:04)
[2019-01-18] MEDS: NICOTINE 21MG/24HR PATCH TRANSDERM SCH (08:16)
[2019-01-18] MEDS ORDERED: LACTULOSE 20 GM/30 ML CUP PO SCH (09:00)
[2019-01-18 09:14] LABS: Anisocytosis Slight; HCT 25.2 % (39.0-53.0); HGB 8.1 gm/dL (13.0-17.5); Hypochromasia Marked; MCH 26.8 pg (25.0-35.0); MCV 83.9 fL (80.0-100.0); Mean Platelet Volume 9.1; Microcytosis Slight; Poikilocytosis Moderate; RDW 19.7 % (11.5-15.5); WBC 5.3 k/uL (3.8-10.6)
[2019-01-18 09:17] LABS: Platelet Count 92 k/uL (150-450)
[2019-01-18] MEDS: ONDANSETRON 4 MG/2 ML VIAL IVP PRN ×2 (09:36→18:12)
[2019-01-18] MEDS: LACTULOSE 20 GM/30 ML CUP PO SCH ×2 (10:24→10:52)
[2019-01-18 11:51] LABS: Glucose,Whole Blood 129 mg/dL (75-99)
--- NOTE | 2019-01-18 11:54 | P.PN ---
<Nancy Hoyos M - Last Filed: 01/18/19 11:34> Subjective Progress Note Date: 01/18/19 Principal diagnosis: Acute gastrointestinal bleeding, esophageal varices that is post banding, duodenal ulcer On 01/18/2019 patient seen in follow-up. He underwent EGD yesterday, and was found to have varices in the distal esophagus and underwent variceal band ligation with band placement, there was also a 1 cm cratered duodenal ulcer without stigmata for bleeding, portal hypertensive gastropathy, there was no active bleeding. Patient is currently on IV Protonix, and IV Sandostatin drip currently infusing at 50 ML per hour. Told me he had some episodes of vomiting with blood in it however after speaking to the nursing staff there is no reported hematemesis or any stools since yesterday morning. Complaining of some abdominal distention, but no pain. Bowel sounds are active. Today's hemoglobin is 8.1, white blood cell count was 5.3, platelet count is 92, serum sodium is 141, potassium is 3.3, chloride is 117, CO2 is 18, BUN is 14, creatinine is 0.46, and level is elevated at 138, and patient has been started on lactulose by GI service. Hemodynamic patient is stable, not tachycardic, blood pressure stable at 132/75, room air pulse ox is 94%, he denies any chest pain, denies any shortness of breath. Yesterday patient had some urinary retention issues and now Vasquez catheter has been placed, draining clear yellow urine, patient is nonoliguric Objective - Vital Signs Vital signs: Vital Signs Temp 97.9 F 01/18/19 08:00 Pulse 56 L 01/18/19 10:00 Resp 12 01/18/19 10:00 BP 132/75 01/18/19 10:00 Pulse Ox 95 01/18/19 10:00 Intake & Output 01/17/19 01/18/19 01/18/19 18:59 06:59 18:59 Intake Total 2667.5 1915.833 851.667 Output Total 736 575 295 Balance 1931.5 1340.833 556.667 Weight 89.8 kg Intake: IV 1550 1500 625 Octreotide 500 mcg In 300 300 125 Sodium Chloride 0.9% 250 ml @ 50 MCG/HR 25 mls/hr IV .Q10H [facility] Rx#: [id number] Sodium Chloride 0.9% 1, 900 500 000 ml @ 100 mls/hr IV . Q10H [facility] Rx#:[id number] Sodium Chloride 0.9% 1, 1200 300 000 ml @ 100 mls/hr IV . Q10H [facility] Rx#:[id number] Intake, IV Titration 247.5 240.833 226.667 Amount Octreotide 500 mcg In 247.5 240.833 226.667 Sodium Chloride 0.9% 250 ml @ 50 MCG/HR 25 mls/hr IV .Q10H [facility] Rx#: [id number] Oral 250 175 Blood Product 620 Rc As-1 Unit 310 [id number] Output: Urine 735 575 295 Urine/Stool Mix 1 Other: Voiding Method Indwelling Catheter Indwelling Catheter Indwelling Catheter - Exam GENERAL EXAM: Alert, pleasant, 43-year-old the white male, on room air, slightly somnolent, but easily arousable comfortable in no apparent distress. HEAD: Normocephalic/atraumatic. EYES: Normal reaction of pupils, equal size. Conjunctiva pink, sclera white. NOSE: Clear with pink turbinates. THROAT: No erythema or exudates. NECK: No masses, no JVD, no thyroid enlargement, no adenopathy. CHEST: No chest wall deformity. Symmetrical expansion. LUNGS: Equal air entry with no crackles, wheeze, rhonchi or dullness. CVS: Regular rate and rhythm, normal S1 and S2, no gallops, no murmurs, no rubs ABDOMEN: Soft, nontender. No hepatosplenomegaly, normal bowel sounds, no guarding or rigidity. EXTREMITIES: No clubbing, no edema, no cyanosis, 2+ pulses and upper and lower extremities. MUSCULOSKELETAL: Muscle strength and tone normal. SPINE: No scoliosis or deformity SKIN: No rashes CENTRAL NERVOUS SYSTEM: Alert and oriented -3. No focal deficits, tone is normal in all 4 extremities. PSYCHIATRIC: Alert and oriented -3. Appropriate affect. Intact judgment and insight. - Labs CBC & Chem 7: 01/18/19 08:26 01/18/19 03:30 Labs: Abnormal Lab Results - Last 24 Hours (Table) 01/17/19 01/17/19 01/18/19 Range/Units 12:21 20:19 03:30 RBC 3.05 L 3.12 L (4.30-5.90) m/uL Hgb 8.3 L D 8.4 L (13.0-17.5) gm/dL Hct 24.7 L 26.4 L (39.0-53.0) % RDW 19.8 H 19.5 H (11.5-15.5) % Plt Count 77 L 100 L (150-450) k/uL Potassium 3.3 L (3.5-5.1) mmol/L Chloride 117 H (98-107) mmol/L Carbon Dioxide 18 L (22-30) mmol/L Creatinine 0.46 L (0.66-1.25) mg/dL Glucose 105 H (74-99) mg/dL Calcium 6.9 L (8.4-10.2) mg/dL Ammonia (<30) umol/L 01/18/19 01/18/19 01/18/19 Range/Units 03:30 08:26 08:26 RBC 2.61 L 3.00 L (4.30-5.90) m/uL Hgb 7.0 L 8.1 L (13.0-17.5) gm/dL Hct 22.1 L 25.2 L (39.0-53.0) % RDW 19.3 H 19.7 H (11.5-15.5) % Plt Count 90 L 92 L (150-450) k/uL Potassium (3.5-5.1) mmol/L Chloride (98-107) mmol/L Carbon Dioxide (22-30) mmol/L Creatinine (0.66-1.25) mg/dL Glucose (74-99) mg/dL Calcium (8.4-10.2) mg/dL Ammonia 138 H (<30) umol/L Assessment and Plan Plan: Assessment: #1. Acute GI blood loss anemia, status post EGD, and ligation and banding of the varices in the distal esophagus. There was also on a 1 cm duodenal ulcer without active bleeding #2. Ongoing alcohol abuse with alcoholic liver disease and cirrhosis #3. Prior history of gastrointestinal bleeding and bleeding esophageal varices in #4. History of mild intermittent bronchial asthma #5. Recent history of bowel wall hernia repair #6. History of gallstone pancreatitis #7. History of nephrolithiasis #8. Thrombocytopenia likely related to chronic alcohol abuse #9. Portal hypertensive gastropathy Plan: We'll continue with Sandostatin infusion, continue with PPI therapy, no active bleeding, hemodynamically stable, patient is tolerating liquid diet. We'll continue ceftriaxone. Patient has been started on lactulose, we'll repeat ammonia level tomorrow. We'll continue with the Vasquez catheter in place for accurate intake and output, if remains hemodynamically stable we'll remove it tomorrow and give the patient a voiding trial I performed a history & physical examination of the patient and discussed their management with my nurse practitioner, Nancy Hoyos. I reviewed the nurse practitioner's note and agree with the documented findings and plan of care. Lung sounds are positive for diminished breath sound. The findings and the impression was discussed with the patient. I attest to the documentation by the nurse practitioner. Time with Patient: Less than 30 <Taina Isbell - Last Filed: 01/18/19 16:48> Objective - Vital Signs Vital signs: Vital Signs Temp 97.9 F 01/18/19 08:00 Pulse 59 L 01/18/19 16:00 Resp 14 01/18/19 16:00 BP 136/84 01/18/19 16:00 Pulse Ox 97 01/18/19 16:00 Intake & Output 01/17/19 01/18/19 01/18/19 18:59 06:59 18:59 Intake Total 2667.5 0968.528 2820.667 Output Total 736 575 580 Balance 1931.5 1340.833 896.667 Weight 89.8 kg Intake: IV 1550 1500 1250 Octreotide 500 mcg In 300 300 250 Sodium Chloride 0.9% 250 ml @ 50 MCG/HR 25 mls/hr IV .Q10H [facility] Rx#: [id number] Sodium Chloride 0.9% 1, 900 1000 000 ml @ 100 mls/hr IV . Q10H [facility] Rx#:[id number] Sodium Chloride 0.9% 1, 1200 300 000 ml @ 100 mls/hr IV . Q10H [facility] Rx#:[id number] Intake, IV Titration 247.5 240.833 226.667 Amount Octreotide 500 mcg In 247.5 240.833 226.667 Sodium Chloride 0.9% 250 ml @ 50 MCG/HR 25 mls/hr IV .Q10H [facility] Rx#: [id number] Oral 250 175 Blood Product 620 Rc As-1 Unit 310 [id number] Output: Urine 735 575 580 Urine/Stool Mix 1 Other: Voiding Method Indwelling Catheter Indwelling Catheter Indwelling Catheter # Bowel Movements 1 - Labs CBC & Chem 7: 01/18/19 08:26 01/18/19 03:30 Labs: Abnormal Lab Results - Last 24 Hours (Table) 01/17/19 01/18/19 01/18/19 Range/Units 20:19 03:30 03:30 RBC 3.12 L 2.61 L (4.30-5.90) m/uL Hgb 8.4 L 7.0 L (13.0-17.5) gm/dL Hct 26.4 L 22.1 L (39.0-53.0) % RDW 19.5 H 19.3 H (11.5-15.5) % Plt Count 100 L 90 L (150-450) k/uL Potassium 3.3 L (3.5-5.1) mmol/L Chloride 117 H (98-107) mmol/L Carbon Dioxide 18 L (22-30) mmol/L Creatinine 0.46 L (0.66-1.25) mg/dL Glucose 105 H (74-99) mg/dL POC Glucose (mg/dL) (75-99) mg/dL Calcium 6.9 L (8.4-10.2) mg/dL Ammonia (<30) umol/L 01/18/19 01/18/19 01/18/19 Range/Units 08:26 08:26 11:48 RBC 3.00 L (4.30-5.90) m/uL Hgb 8.1 L (13.0-17.5) gm/dL Hct 25.2 L (39.0-53.0) % RDW 19.7 H (11.5-15.5) % Plt Count 92 L (150-450) k/uL Potassium (3.5-5.1) mmol/L Chloride (98-107) mmol/L Carbon Dioxide (22-30) mmol/L Creatinine (0.66-1.25) mg/dL Glucose (74-99) mg/dL POC Glucose (mg/dL) 129 H (75-99) mg/dL Calcium (8.4-10.2) mg/dL Ammonia 138 H (<30) umol/L Assessment and Plan Plan: The patient is doing well. The patient underwent EGD yesterday. The patient is still on the acute side. The patient remains on IV Rocephin. We'll monitor hemoglobin. Keep the patient in ICU for another 24 hours. We'll continue to follow. This is a joint evaluation that was done along with a nurse practitioner.
[2019-01-18] MEDS: POTASSIUM CHLORIDE ER 20 MEQ TAB.ER PO SCH ×2 (12:15→13:26)
--- NOTE | 2019-01-18 12:22 | PN ---
PROGRESS NOTE DATE OF SERVICE: 01/18/2019 The patient is a 43-year-old pleasant white male admitted to the hospital with history of alcoholic cirrhosis of the liver and recurrent esophageal variceal bleed. Admitted to the hospital yesterday with severe symptomatic anemia and hematemesis. He had an upper endoscopy done yesterday by Dr. Harrington and revealed large esophageal varices for which he underwent variceal ligation. Patient presently on IV Sandostatin drip as well as IV Protonix. He is complaining of some nausea and dizziness. He had no further episodes of bleeding. In fact, he did not have any bowel movements. He remains on a clear liquid diet. PHYSICAL EXAMINATION: On physical examination, he appears comfortable. No apparent distress. Vital signs are stable. Blood pressure is 112/82, pulse is 74, temperature 97.7. HEENT examination unremarkable. Conjunctivae pink. Sclerae anicteric. Oral cavity, no lesions. NECK: No jugular venous distention enlargement. CHEST: Clear to auscultation. HEART: Regular rate and rhythm. ABDOMEN: Soft. There was very minimal tenderness in the epigastric area. Bowel sounds are positive. No organomegaly. EXTREMITIES: No pedal edema. SKIN: No rashes, NEURO: He is alert and oriented x3. No focal deficits. LABS: WBC 5.3, hemoglobin 8.1, platelets 92,000. Ammonia level is 138. BUN is 14, creatinine 0.46. IMPRESSION: 1. Acute upper gastrointestinal bleed secondary to esophageal varices status post EGD with variceal ligation yesterday. Presently on IV Sandostatin drip IV Protonix. No further bleeding. Hemoglobin stable at 8.1 g/dL. The patient is status post 4 units of blood transfusion. 2. Elevated ammonia and mild confusion secondary to hepatic encephalopathy. 3. Alcoholic cirrhosis of the liver with active alcohol abuse. RECOMMENDATION: 1. Continue with antibiotics. 2. Continue with Sandostatin drip for another 24 hours. 3. Clear liquid diet. 4. Start on lactulose 30 mL 3 times daily and titrate to 2 to 3 soft bowel movements daily. 5. Repeat labs in the morning and we will follow with you closely during his hospital stay. Thank you for this consultation. MMODL / IJN: [id number] /
--- NOTE | 2019-01-18 16:14 | P.PN ---
Subjective Progress Note Date: 01/18/19 This is a 43-year-old gentleman with history of esophageal varices, banding, portal hypertension ,ongoing alcohol abuse, liver cirrhosis, GI bleeds, noncompliant with medication regimen and multiple other medical issues admitted with complaints of hemoptysis, melena with nausea, vomiting. Reports ongoing alcohol consumption, with recent drinking-last night. Complains of periumbilical pain more to the right, which she reports is chronic. Denies fevers or chills. Reports confusion, generalized weakness, falls, lightheadedness. Denies chest pain, palpitations or shortness of breath. Hemoglobin on admission 5.6, received 3 units of RBCs, 2 FFP with current hemoglobin up to 6.7, platelets 95 currently receiving 4th unit of PRBC. INR 1.8, now down to 1.5. T bili 1.9, ammonia 57. Albumin 2.5. Serum alcohol 30. Less acid 3, repeat 1.2. Sodium 141, potassium 3.9, BUN/creatinine 20/0.59. EKG reporting sinus rhythm. Receiving IV fluids, Protonix and Zofran, admitted to the ICU. Maintained on Sandostatin currently at 50 mcgs. Denies any further hemoptysis, melena. GI consulted and patient is scheduled for EGD today. Currently maintaining O2 sats in the 90s on 3 L nasal cannula. 01/18/2019 EGD performed yesterday, reporting no active bleeding or old blood noted with variceal band ligation- 3 bands placed. 1 cm cratered duodenal ulcer without high risk stigmata for bleeding, portal hypertensive gastropathy. Tolerated procedure well. No further emesis or melena .Telemetry sinus rhythm. VSS. Maintained on IV Protonix twice a day, Sandostatin drip and IV fluid hydration. Hemoglobin 8.1. Potassium 3.3. Maintaining O2 sats in the 90s on room air.VSS. Afebrile, normal WBC. Ammonia 138, lactulose initiated. Vasquez catheter placed for urinary retention. Denies chest pain, palpitations or shortness of breath. Objective - Vital Signs Vital signs: Vital Signs Temp 97.9 F 01/18/19 08:00 Pulse 74 01/18/19 08:00 Resp 13 01/18/19 08:00 BP 125/80 01/18/19 08:00 Pulse Ox 96 01/18/19 08:00 Intake & Output 01/17/19 01/18/19 01/18/19 18:59 06:59 18:59 Intake Total 2667.5 1915.833 250 Output Total 736 575 155 Balance 1931.5 1340.833 95 Weight 89.8 kg Intake: IV 1550 1500 250 Octreotide 500 mcg In 300 300 50 Sodium Chloride 0.9% 250 ml @ 50 MCG/HR 25 mls/hr IV .Q10H [facility] Rx#: [id number] Sodium Chloride 0.9% 1, 900 200 000 ml @ 100 mls/hr IV . Q10H [facility] Rx#:[id number] Sodium Chloride 0.9% 1, 1200 300 000 ml @ 100 mls/hr IV . Q10H [facility] Rx#:[id number] Intake, IV Titration 247.5 240.833 Amount Octreotide 500 mcg In 247.5 240.833 Sodium Chloride 0.9% 250 ml @ 50 MCG/HR 25 mls/hr IV .Q10H [facility] Rx#: [id number] Oral 250 175 Blood Product 620 Rc As-1 Unit 310 [id number] Output: Urine 735 575 155 Urine/Stool Mix 1 Other: Voiding Method Indwelling Catheter Indwelling Catheter - Exam General: [Patient sitting up in bed, awake, alert and oriented times 3. no acute distress., Resting, arouses easily. HEENT: [PERRL. EOMI. No pharyngeal erythema or exudate. Oral mucosa dry Neck: [Supple, No adenopathy.] Cardiac: [Heart regular in rate and rhythm. No S3. No S4. No clicks, rubs. No murmur.] Lungs: [Clear to auscultation bilaterally. No rhonchi, crackles, no wheezes Abdomen: [Soft, nontender, mildly distended,ascites .No mass palpable. No guarding. Bowel sounds presnt and normoactive in all 4 quadrants.] Extremities: [No edema no cyanosis no claudication normal pulses] Musculoskeletal: [No joint erythema, edema or tenderness.] Skin: [No rash. Neurologic:CN II - XII grossly intact. No gross focal deficits. - Labs CBC & Chem 7: 01/18/19 08:26 01/18/19 03:30 Labs: Abnormal Lab Results - Last 24 Hours (Table) 01/17/19 01/17/19 01/18/19 Range/Units 12:21 20:19 03:30 RBC 3.05 L 3.12 L (4.30-5.90) m/uL Hgb 8.3 L D 8.4 L (13.0-17.5) gm/dL Hct 24.7 L 26.4 L (39.0-53.0) % RDW 19.8 H 19.5 H (11.5-15.5) % Plt Count 77 L 100 L (150-450) k/uL Potassium 3.3 L (3.5-5.1) mmol/L Chloride 117 H (98-107) mmol/L Carbon Dioxide 18 L (22-30) mmol/L Creatinine 0.46 L (0.66-1.25) mg/dL Glucose 105 H (74-99) mg/dL Calcium 6.9 L (8.4-10.2) mg/dL 01/18/19 Range/Units 03:30 RBC 2.61 L (4.30-5.90) m/uL Hgb 7.0 L (13.0-17.5) gm/dL Hct 22.1 L (39.0-53.0) % RDW 19.3 H (11.5-15.5) % Plt Count 90 L (150-450) k/uL Potassium (3.5-5.1) mmol/L Chloride (98-107) mmol/L Carbon Dioxide (22-30) mmol/L Creatinine (0.66-1.25) mg/dL Glucose (74-99) mg/dL Calcium (8.4-10.2) mg/dL Assessment and Plan Assessment: -Acute on chronic blood loss anemia secondary to Acute GI bleed in a patient wi th history of esophageal varices with multiple bandings, liver cirrhosis, portal hypertension, ongoing alcohol abuse. Status post 4 units of packed RBCs, 2 units of FFP. Status post EGD reporting no active bleeding or old blood noted with variceal band ligation- 3 bands placed. 1 cm duodenal ulcer without bleeding, portal hypertensive gastropathy. -Ongoing EtOH abuse -Portal hypertension -Alcohol liver Cirrhosis with ascites. Last paracentesis 09/05/2018; cytology and cultures negative. -Coagulopathy secondary to liver disease -Hyperammonemia -Ongoing nicotine dependence -Nephrolithiasis -Thrombocytopenia, suspect chronic related to alcohol abuse Plan: Continue on current medication regime ,monitoring and symptomatic treatment. Maintain CIWA protocol, IV fluid resuscitation, PPI, Sandostatin,Rocephin. Serial CBCs. Lactulose initiated. Close monitoring of ammonia with daily levels ordered. Potassium 3.3 with replacements as per ICU protocol. Alcohol, smoking cessation readdressed . The impression and plan of care has been dictated as directed. : I performed a history and examination of this patient, discussed the same with the dictator. I agree with the dictator's note ,documented as a scribe. Any additional findings or plans will be noted. Time taken: 35 minutes
[2019-01-18 17:02] LABS: Glucose,Whole Blood 124 mg/dL (75-99)
[2019-01-18 22:20] LABS: Glucose,Whole Blood 124 mg/dL (75-99)
[2019-01-19] MEDS: SODIUM CHLORIDE 0.9% 1,000 ML IV SCH ×2 (00:08→10:34)
[2019-01-19] MEDS: HYDROmorphone 1 MG/ML 1 ML SYRINGE IVP PRN ×6 (01:18→20:53)
[2019-01-19 01:25] LABS: Glucose,Whole Blood 129 mg/dL (75-99)
[2019-01-19 05:47] LABS: Anisocytosis Moderate; Basophils # (A) 0.1 k/uL (0-0.2); Basophils % (A) 1 %; Eosinophils # (A) 0.5 k/uL (0-0.7); Eosinophils % (A) 7 %; HGB 7.9 gm/dL (13.0-17.5); Hypochromasia Marked; Lymphocytes # (A) 0.9 k/uL (1.0-4.8); Lymphocytes % (A) 13 %; MCHC 31.8 g/dL (31.0-37.0); MCV 85.1 fL (80.0-100.0); Mean Platelet Volume 9.2; Monocytes # (A) 0.6 k/uL (0-1.0); Monocytes % (A) 8 %; Neutrophils # (A) 4.9 k/uL (1.3-7.7); Neutrophils % (A) 69 %; Poikilocytosis Moderate; RBC 2.94 m/uL (4.30-5.90); RDW 20.2 % (11.5-15.5); WBC 7.1 k/uL (3.8-10.6)
[2019-01-19 05:48] LABS: Platelet Count 92 k/uL (150-450)
[2019-01-19 07:07] LABS: Glucose,Whole Blood 122 mg/dL (75-99)
[2019-01-19 08:04] LABS: African American GFR (CKD) >90 (>60 ml/min/1.73 sqM); Anion Gap 7 mmol/L; Blood Urea Nitrogen 8 mg/dL (9-20); Calcium 7.8 mg/dL (8.4-10.2); Carbon Dioxide 19 mmol/L (22-30); Chloride 114 mmol/L (98-107); Glucose 103 mg/dL (74-99); Magnesium 1.7 mg/dL (1.6-2.3); Potassium 3.6 mmol/L (3.5-5.1); Sodium 140 mmol/L (137-145)
[2019-01-19] MEDS: PANTOPRAZOLE 40 MG/10 ML VIAL IVP SCH ×2 (08:27→20:53)
[2019-01-19] MEDS: MULTIVITAMINS, THERA 1 EACH TAB PO SCH (08:30)
[2019-01-19] MEDS: THIAMINE 100 MG TAB PO SCH ×2 (08:30→16:57)
[2019-01-19] MEDS: NICOTINE 21MG/24HR PATCH TRANSDERM SCH (08:30)
[2019-01-19] MEDS: LACTULOSE 20 GM/30 ML CUP PO SCH (08:30)
[2019-01-19] MEDS: OCTREOTIDE 500 MCG in SODIUM CHLORIDE 0.9% 250 ML IV SCH (08:37)
[2019-01-19] MEDS: MAGNESIUM SULFATE-D5W PMX 1 GM in DEXTROSE/WATER 1 100ML.BAG IVPB SCH ×2 (10:32→12:37)
[2019-01-19 11:55] LABS: Glucose,Whole Blood 152 mg/dL (75-99)
--- NOTE | 2019-01-19 13:38 | P.PN ---
Subjective Progress Note Date: 01/19/19 On 01/18/2019 patient seen in follow-up. He underwent EGD yesterday, and was found to have varices in the distal esophagus and underwent variceal band ligation with band placement, there was also a 1 cm cratered duodenal ulcer without stigmata for bleeding, portal hypertensive gastropathy, there was no active bleeding. Patient is currently on IV Protonix, and IV Sandostatin drip currently infusing at 50 ML per hour. Told me he had some episodes of vomiting with blood in it however after speaking to the nursing staff there is no reported hematemesis or any stools since yesterday morning. Complaining of some abdominal distention, but no pain. Bowel sounds are active. Today's hemoglobin is 8.1, white blood cell count was 5.3, platelet count is 92, serum sodium is 141, potassium is 3.3, chloride is 117, CO2 is 18, BUN is 14, creatinine is 0.46, and level is elevated at 138, and patient has been started on lactulose by GI service. Hemodynamic patient is stable, not tachycardic, blood pressure stable at 132/75, room air pulse ox is 94%, he denies any chest pain, denies any shortness of breath. Yesterday patient had some urinary retention issues and now Vasquez catheter has been placed, draining clear yellow urine, patient is nonoliguric On 01/19/2019, the patient is resting comfortably in bed. No episodes of GI bleeding. The patient remains on acute otitis. He was receiving IV fluids in the rate of 100 mL an hour normal saline. He has developed some increased ascites. The IV fluids will be kept on the patient will be started back on his diuretics. Hemoglobin is stable. The patient had a regular bowel movement. No signs of hepatic encephalopathy. No signs of any delirium tremens. No nausea. No vomiting. Abdominal pain. No change in mental status. No seizure activity. The patient is calm and comfortable and the patient is hemodynamically stable at this point in time. Objective - Vital Signs Vital signs: Vital Signs Temp 97.8 F 01/19/19 12:00 Pulse 82 01/19/19 12:00 Resp 21 01/19/19 12:00 BP 131/85 01/19/19 12:00 Pulse Ox 96 01/19/19 12:00 Intake & Output 01/18/19 01/19/19 01/19/19 18:59 06:59 18:59 Intake Total 6362.258 6550 515 Output Total 680 645 195 Balance 9619.590 1260 320 Weight 88.4 kg Intake: IV 1500 1625 265 Octreotide 500 mcg In 300 325 Sodium Chloride 0.9% 250 ml @ 50 MCG/HR 25 mls/hr IV .Q10H [facility] Rx#: [id number] Sodium Chloride 0.9% 1, 1200 1300 215 000 ml @ 5 mls/hr IV . Q24H [facility] Rx#:[id number] cefTRIAXone 1 gm In 50 Sodium Chloride 0.9% 50 ml @ 100 mls/hr IVPB Q24HR [facility] Rx#:[id number] Intake, IV Titration 226.667 250 250 Amount Octreotide 500 mcg In 226.667 250 250 Sodium Chloride 0.9% 250 ml @ 50 MCG/HR 25 mls/hr IV .Q10H [facility] Rx#: [id number] Oral 240 Output: Urine 680 645 195 Other: Voiding Method Indwelling Catheter Indwelling Catheter Indwelling Catheter # Bowel Movements 1 - Exam GENERAL EXAM: Alert, pleasant, 43-year-old the white male, on room air, slightly somnolent, but easily arousable comfortable in no apparent distress. HEAD: Normocephalic/atraumatic. EYES: Normal reaction of pupils, equal size. Conjunctiva pink, sclera white. NOSE: Clear with pink turbinates. THROAT: No erythema or exudates. NECK: No masses, no JVD, no thyroid enlargement, no adenopathy. CHEST: No chest wall deformity. Symmetrical expansion. LUNGS: Equal air entry with no crackles, wheeze, rhonchi or dullness. CVS: Regular rate and rhythm, normal S1 and S2, no gallops, no murmurs, no rubs ABDOMEN: Soft, nontender. No hepatosplenomegaly, normal bowel sounds, no guarding or rigidity. EXTREMITIES: No clubbing, no edema, no cyanosis, 2+ pulses and upper and lower extremities. MUSCULOSKELETAL: Muscle strength and tone normal. SPINE: No scoliosis or deformity SKIN: No rashes CENTRAL NERVOUS SYSTEM: Alert and oriented -3. No focal deficits, tone is normal in all 4 extremities. PSYCHIATRIC: Alert and oriented -3. Appropriate affect. Intact judgment and insight. - Labs CBC & Chem 7: 09/05/19 05:23 01/19/19 05:23 Labs: Abnormal Lab Results - Last 24 Hours (Table) 01/18/19 01/18/19 01/19/19 Range/Units 17:00 22:17 01:22 RBC (4.30-5.90) m/uL Hgb (13.0-17.5) gm/dL Hct (39.0-53.0) % RDW (11.5-15.5) % Plt Count (150-450) k/uL Lymphocytes # (1.0-4.8) k/uL Chloride (98-107) mmol/L Carbon Dioxide (22-30) mmol/L BUN (9-20) mg/dL Creatinine (0.66-1.25) mg/dL Glucose (74-99) mg/dL POC Glucose (mg/dL) 124 H 124 H 129 H (75-99) mg/dL Calcium (8.4-10.2) mg/dL Ammonia (<30) umol/L 01/19/19 01/19/19 01/19/19 Range/Units 05:23 05:23 05:23 RBC 2.94 L (4.30-5.90) m/uL Hgb 7.9 L (13.0-17.5) gm/dL Hct 25.0 L (39.0-53.0) % RDW 20.2 H (11.5-15.5) % Plt Count 92 L (150-450) k/uL Lymphocytes # 0.9 L (1.0-4.8) k/uL Chloride 114 H (98-107) mmol/L Carbon Dioxide 19 L (22-30) mmol/L BUN 8 L (9-20) mg/dL Creatinine 0.52 L (0.66-1.25) mg/dL Glucose 103 H (74-99) mg/dL POC Glucose (mg/dL) (75-99) mg/dL Calcium 7.8 L (8.4-10.2) mg/dL Ammonia 73 H (<30) umol/L 01/19/19 01/19/19 Range/Units 07:05 11:53 RBC (4.30-5.90) m/uL Hgb (13.0-17.5) gm/dL Hct (39.0-53.0) % RDW (11.5-15.5) % Plt Count (150-450) k/uL Lymphocytes # (1.0-4.8) k/uL Chloride (98-107) mmol/L Carbon Dioxide (22-30) mmol/L BUN (9-20) mg/dL Creatinine (0.66-1.25) mg/dL Glucose (74-99) mg/dL POC Glucose (mg/dL) 122 H 152 H (75-99) mg/dL Calcium (8.4-10.2) mg/dL Ammonia (<30) umol/L Assessment and Plan Plan: #1. Acute GI blood loss anemia, status post EGD, and ligation and banding of the varices in the distal esophagus. There was also on a 1 cm duodenal ulcer without active bleeding. The patient is hemodynamically stable. The patient is not showing any signs of bleeding at this point in time and the patient remains an hemodynamically stable. The patient remains on octreotide. #2. Ongoing alcohol abuse with alcoholic liver disease and cirrhosis #3. Prior history of gastrointestinal bleeding and bleeding esophageal varices in #4. History of mild intermittent bronchial asthma #5. Recent history of bowel wall hernia repair #6. History of gallstone pancreatitis #7. History of nephrolithiasis #8. Thrombocytopenia likely related to chronic alcohol abuse #9. Portal hypertensive gastropathy PLAN The IV Fluids to KVO. Restart Lasix. Restart Aldactone. Stop octreotide within the next 6 hours. Watch for any signs of the knee and treatments. Continue IV Rocephin. Monitor hemoglobin. We'll continue to follow and the patient will be transferred out of the intensive care unit within the next 6 hours once octreotide has been discontinued.
--- NOTE | 2019-01-19 15:03 | PN ---
PROGRESS NOTE DATE OF SERVICE: 01/19/2019 Patient is a 43-year-old white male admitted to hospital with acute esophageal variceal bleeding, status post EGD with variceal ligation by Dr. Harrington 3 days ago. He is on IV Sandostatin drip which is going to be discontinued today. He had no further bleeding. He complains of some abdominal distention. He denies any nausea, vomiting. No fever, chills, or night sweats. Still complains of some dizziness. On a soft diet, tolerating well. PHYSICAL EXAMINATION: He appears comfortable, in no apparent distress. VITAL SIGNS: Stable. Blood pressure is 106/89, pulse rate 82 per minute and afebrile. HEENT: Examination unremarkable. Conjunctivae pink. Sclerae nonicteric. Oral cavity no lesions. Sensitivity . CHEST: Clear to auscultation. HEART: Regular rate and rhythm. ABDOMEN: Slightly distended. There was some free fluid noted in the abdomen/ascites. EXTREMITIES: No pedal edema. SKIN: No rashes. NEURO: He is alert and oriented x3. No focal deficits. LABS: Done today, hemoglobin is 7.9, WBC is 7.1, platelets 92,000. BUN 8, creatinine 0.52. Ammonia 73. IMPRESSION: 1. Acute esophageal variceal bleeding, status post EGD with variceal ligation 3 days ago on IV Sandostatin drip, doing well. No further bleeding. Hemodynamically stable. 2. Hepatic encephalopathy on oral lactulose. Ammonia is gradually improving. 3. Ascites related to portal hypertension. 4. Alcoholic cirrhosis of the liver with decompensation. RECOMMENDATIONS: 1. DC Sandostatin. 2. Continue with IV Protonix. 3. Advance to a regular diet. 4. He can be discharged to the floor today. 5. Continue with oral lactulose and titrated so that he has 3 soft bowel movements daily. 6. In regard to the ascites, he will continue on Lasix 40 mg twice daily and Aldactone 100 mg daily. 7. Low-salt diet. Will follow with you closely. MMODL / IJN: [id number] /
--- NOTE | 2019-01-19 16:32 | P.PN ---
Subjective Progress Note Date: 01/19/19 This is a 43-year-old gentleman with history of esophageal varices, banding, portal hypertension ,ongoing alcohol abuse, liver cirrhosis, GI bleeds, noncompliant with medication regimen and multiple other medical issues admitted with complaints of hemoptysis, melena with nausea, vomiting. Reports ongoing alcohol consumption, with recent drinking-last night. Complains of periumbilical pain more to the right, which she reports is chronic. Denies fevers or chills. Reports confusion, generalized weakness, falls, lightheadedness. Denies chest pain, palpitations or shortness of breath. Hemoglobin on admission 5.6, received 3 units of RBCs, 2 FFP with current hemoglobin up to 6.7, platelets 95 currently receiving 4th unit of PRBC. INR 1.8, now down to 1.5. T bili 1.9, ammonia 57. Albumin 2.5. Serum alcohol 30. Less acid 3, repeat 1.2. Sodium 141, potassium 3.9, BUN/creatinine 20/0.59. EKG reporting sinus rhythm. Receiving IV fluids, Protonix and Zofran, admitted to the ICU. Maintained on Sandostatin currently at 50 mcgs. Denies any further hemoptysis, melena. GI consulted and patient is scheduled for EGD today. Currently maintaining O2 sats in the 90s on 3 L nasal cannula. 01/18/2019 EGD performed yesterday, reporting no active bleeding or old blood noted with variceal band ligation- 3 bands placed. 1 cm cratered duodenal ulcer without high risk stigmata for bleeding, portal hypertensive gastropathy. Tolerated procedure well. No further emesis or melena .Telemetry sinus rhythm. VSS. Maintained on IV Protonix twice a day, Sandostatin drip and IV fluid hydration. Hemoglobin 8.1. Potassium 3.3. Maintaining O2 sats in the 90s on room air.VSS. Afebrile, normal WBC. Ammonia 138, lactulose initiated. Vasquez catheter placed for urinary retention. Denies chest pain, palpitations or shortness of breath. 01/19/2019 maintained on Sandostatin drip, scheduled to be discontinued at 2000 tonight. IV fluid hydration continues. No signs or symptoms of bleeding. Hemoglobin 7.9. 2 brown bowel movements yesterday. Lactulose initiated yesterday with ammonia level currently at 73. Magnesium 1.7, receiving supplementation. No nausea, no vomiting. Complains of umbilical pain. More alert. No DTs. Telemetry sinus rhythm. VSS. Objective - Vital Signs Vital signs: Vital Signs Temp 97.8 F 01/19/19 08:00 Pulse 75 01/19/19 08:00 Resp 11 L 01/19/19 08:00 BP 119/77 01/19/19 08:00 Pulse Ox 98 01/19/19 08:00 Intake & Output 01/18/19 01/19/19 01/19/19 18:59 06:59 18:59 Intake Total 3473.663 9671 250 Output Total 680 645 Balance 9897.994 4882 250 Weight 88.4 kg Intake: IV 1500 1625 Octreotide 500 mcg In 300 325 Sodium Chloride 0.9% 250 ml @ 50 MCG/HR 25 mls/hr IV .Q10H RADHA Rx#: [id number] Sodium Chloride 0.9% 1, 1200 1300 000 ml @ 100 mls/hr IV . Q10H RADHA Rx#:[id number] Intake, IV Titration 226.667 250 250 Amount Octreotide 500 mcg In 226.667 250 250 Sodium Chloride 0.9% 250 ml @ 50 MCG/HR 25 mls/hr IV .Q10H RADHA Rx#: [id number] Oral 240 Output: Urine 680 645 Other: Voiding Method Indwelling Catheter Indwelling Catheter # Bowel Movements 1 - Exam General: [Patient lying in bed, awake, alert and oriented times 3. no acute distress., Resting, arouses easily. HEENT: [PERRL. EOMI. No pharyngeal erythema or exudate. Oral mucosa moist Neck: [Supple, No adenopathy.] Cardiac: [Heart regular in rate and rhythm. No S3. No S4. No clicks, rubs. No murmur.] Lungs: [Clear to auscultation bilaterally. No rhonchi, crackles, no wheezes Abdomen: [Distended, more firm, ascites, mild generalized periumbilical tenderness .No mass palpable. No guarding. Bowel sounds presnt and normoactive in all 4 quadrants.] Extremities: [No edema no cyanosis no claudication normal pulses] Skin: [No rash. Neurologic:CN II - XII grossly intact. No gross focal deficits. - Labs CBC & Chem 7: 01/19/19 05:23 01/19/19 05:23 Labs: Abnormal Lab Results - Last 24 Hours (Table) 01/18/19 01/18/19 01/18/19 Range/Units 08:26 08:26 11:48 RBC 3.00 L (4.30-5.90) m/uL Hgb 8.1 L (13.0-17.5) gm/dL Hct 25.2 L (39.0-53.0) % RDW 19.7 H (11.5-15.5) % Plt Count 92 L (150-450) k/uL Lymphocytes # (1.0-4.8) k/uL Chloride (98-107) mmol/L Carbon Dioxide (22-30) mmol/L BUN (9-20) mg/dL Creatinine (0.66-1.25) mg/dL Glucose (74-99) mg/dL POC Glucose (mg/dL) 129 H (75-99) mg/dL Calcium (8.4-10.2) mg/dL Ammonia 138 H (<30) umol/L 01/18/19 01/18/19 01/19/19 Range/Units 17:00 22:17 01:22 RBC (4.30-5.90) m/uL Hgb (13.0-17.5) gm/dL Hct (39.0-53.0) % RDW (11.5-15.5) % Plt Count (150-450) k/uL Lymphocytes # (1.0-4.8) k/uL Chloride (98-107) mmol/L Carbon Dioxide (22-30) mmol/L BUN (9-20) mg/dL Creatinine (0.66-1.25) mg/dL Glucose (74-99) mg/dL POC Glucose (mg/dL) 124 H 124 H 129 H (75-99) mg/dL Calcium (8.4-10.2) mg/dL Ammonia (<30) umol/L 01/19/19 01/19/19 01/19/19 Range/Units 05:23 05:23 05:23 RBC 2.94 L (4.30-5.90) m/uL Hgb 7.9 L (13.0-17.5) gm/dL Hct 25.0 L (39.0-53.0) % RDW 20.2 H (11.5-15.5) % Plt Count 92 L (150-450) k/uL Lymphocytes # 0.9 L (1.0-4.8) k/uL Chloride 114 H (98-107) mmol/L Carbon Dioxide 19 L (22-30) mmol/L BUN 8 L (9-20) mg/dL Creatinine 0.52 L (0.66-1.25) mg/dL Glucose 103 H (74-99) mg/dL POC Glucose (mg/dL) (75-99) mg/dL Calcium 7.8 L (8.4-10.2) mg/dL Ammonia 73 H (<30) umol/L 01/19/19 Range/Units 07:05 RBC (4.30-5.90) m/uL Hgb (13.0-17.5) gm/dL Hct (39.0-53.0) % RDW (11.5-15.5) % Plt Count (150-450) k/uL Lymphocytes # (1.0-4.8) k/uL Chloride (98-107) mmol/L Carbon Dioxide (22-30) mmol/L BUN (9-20) mg/dL Creatinine (0.66-1.25) mg/dL Glucose (74-99) mg/dL POC Glucose (mg/dL) 122 H (75-99) mg/dL Calcium (8.4-10.2) mg/dL Ammonia (<30) umol/L Assessment and Plan Assessment: -Acute on chronic blood loss anemia secondary to Acute GI bleed in a patient with history of esophageal varices with multiple bandings, liver cirrhosis, portal hypertension, ongoing alcohol abuse. Status post 4 units of packed RBCs, 2 units of FFP. Status post EGD reporting no active bleeding or old blood noted with variceal band ligation- 3 bands placed. 1 cm duodenal ulcer without bleeding, portal hypertensive gastropathy. -Ongoing EtOH abuse -Portal hypertension -Alcohol liver Cirrhosis with ascites. Last paracentesis 09/05/2018; cytology and cultures negative. -Coagulopathy secondary to liver disease -Hyperammonemia -Ongoing nicotine dependence -Nephrolithiasis -Thrombocytopenia, suspect chronic related to alcohol abuse Plan: Continue on current medication regime ,monitoring and symptomatic treatment. Maintain lactulose, Aldactone, Lasix, CIWA protocol, PPI, Sandostatin,Rocephin. Close monitoring of ammonia, hemoglobin with daily levels ordered. Alcohol, smoking cessation readdressed . Transferring out of ICU tonight after Sandostatin discontinued. Further recommendations to follow. The impression and plan of care has been dictated as directed. : I performed a history and examination of this patient, discussed the same with the dictator. I agree with the dictator's note ,documented as a scribe. Any additional findings or plans will be noted. Time taken: 35 minutes
[2019-01-19] MEDS: FUROSEMIDE 40 MG TAB PO SCH (16:57)
[2019-01-19] MEDS: PROPRANOLOL 10 MG TAB PO SCH ×2 (16:58→20:53)
[2019-01-19 17:06] LABS: Glucose,Whole Blood 125 mg/dL (75-99)
[2019-01-19 21:01] LABS: Glucose,Whole Blood 109 mg/dL (75-99)
[2019-01-20] MEDS: HYDROmorphone 1 MG/ML 1 ML SYRINGE IVP PRN ×6 (00:18→20:56)
[2019-01-20 05:44] LABS: Anisocytosis Slight; Basophils # (A) 0.1 k/uL (0-0.2); Basophils % (A) 1 %; Eosinophils # (A) 0.8 k/uL (0-0.7); Eosinophils % (A) 7 %; HCT 27.3 % (39.0-53.0); HGB 8.6 gm/dL (13.0-17.5); Hypochromasia Marked; Lymphocytes # (A) 1.2 k/uL (1.0-4.8); Lymphocytes % (A) 11 %; MCHC 31.6 g/dL (31.0-37.0); MCV 85.3 fL (80.0-100.0); Mean Platelet Volume 9.3; Monocytes # (A) 1.1 k/uL (0-1.0); Monocytes % (A) 10 %; Neutrophils # (A) 7.5 k/uL (1.3-7.7); Neutrophils % (A) 68 %; Poikilocytosis Moderate; RDW 19.9 % (11.5-15.5)
[2019-01-20 05:45] LABS: Platelet Count 177 k/uL (150-450)
[2019-01-20 05:49] LABS: African American GFR (CKD) >90 (>60 ml/min/1.73 sqM); Anion Gap 7 mmol/L; Blood Urea Nitrogen 5 mg/dL (9-20); Calcium 7.8 mg/dL (8.4-10.2); Carbon Dioxide 20 mmol/L (22-30); Chloride 108 mmol/L (98-107); Glucose 91 mg/dL (74-99); Magnesium 1.6 mg/dL (1.6-2.3); Potassium 3.6 mmol/L (3.5-5.1); Sodium 135 mmol/L (137-145)
[2019-01-20] MEDS: MAGNESIUM SULFATE-D5W PMX 1 GM in DEXTROSE/WATER 1 100ML.BAG IVPB SCH ×2 (07:09→10:16)
[2019-01-20] MEDS: THIAMINE 100 MG TAB PO SCH ×2 (08:01→17:34)
[2019-01-20] MEDS: OCTREOTIDE 500 MCG in SODIUM CHLORIDE 0.9% 250 ML IV SCH (08:41)
[2019-01-20] MEDS: LACTULOSE 20 GM/30 ML CUP PO SCH (08:57)
[2019-01-20] MEDS: FUROSEMIDE 40 MG TAB PO SCH ×2 (08:58→17:32)
[2019-01-20] MEDS: MULTIVITAMINS, THERA 1 EACH TAB PO SCH (08:58)
[2019-01-20] MEDS: SPIRONOLACTONE 25 MG TAB PO SCH (08:58)
[2019-01-20] MEDS: PANTOPRAZOLE 40 MG/10 ML VIAL IVP SCH ×2 (08:58→20:57)
[2019-01-20] MEDS: NICOTINE 21MG/24HR PATCH TRANSDERM SCH (08:58)
[2019-01-20] MEDS: PROPRANOLOL 10 MG TAB PO SCH ×3 (09:09→21:49)
[2019-01-20] MEDS: SODIUM CHLORIDE 0.9% 1,000 ML IV SCH (11:51)
--- NOTE | 2019-01-20 12:58 | CDI ---
Documentation Clarification Form Date: 01/20/2019 12:44:47 PM From: Danna OsmanDIANA, CCDS Admit Date: 01/16/2019 1:05:00 PM Patient Name: Kenisha Paige Visit Number: [id number] Discharge Date: ATTENTION: The Clinical Documentation Specialists (CDI) and [facility] Coding Staff appreciate your assistance in clarifying documentation. Please respond to the clarification below the line at the bottom and electronically sign. The CDI & [facility] Coding staff will review the response and follow-up if needed. Please note: Queries are made part of the Legal Health Record. If you have any questions, please contact the author of this message via ITS. Dr. Taina Isbell: Asthma is documented in the pulmonary consult as "history of mild asthma." Per the pulmonary consult: "chronic bronchial asthma". History/risk factors: Alcohol abuse with alcoholic liver cirrhosis with history of previous esophageal variceal banding, Pancreatitis, Gallstones, Kidney stones, chronic anemia, abdominal ascites, MRSA, PTSD, smoker. Clinical Indicators: Patient is a current smoker, 1ppd since 1990; Presented with GI rectal bleeding, hemoptysis, melena, nausea & vomiting. Blood Gas: pH 7.47^, pCO2 23*, HCO3 16*, CO2 18* Radiology: none Vital Signs: P 101^, R 24 - 26^, PO 100 RA - 77 RA (01/16) - 94 RA - 89 RA - mid 90s on 2Lnc Treatment: IV Zofran, IV PPI, IV fluid 100, IV fluid bolus, IV Ativan, IM Vit B1, IV Dilaudid, Nicotine patch, O2 2-3Lnc prn, IV MagSulfate, IV Rocephin. Blood transfusions: PRBCs & FFP. Initially admitted to ICU. In your professional opinion, can you please further specify the following, if known? With: COPD (specify with or without exacerbation) Chronic obstructive bronchitis Other, please specify ___ Unable to determine Severity o Mild intermittent o Mild persistent o Moderate persistent o Severe persistent o Other, please specify ____ o Unable to determine Form or Type o Cough variant o Childhood o Exercise induced bronchospasm o Extrinsic allergic o Idiosyncratic o Intrinsic nonallergic o Late-onset o Mixed o Other, please specify____ o Unable to determine (Last Revision: August 2017) Chronic mild intermittent asthma MTDD
--- NOTE | 2019-01-20 14:58 | P.PN ---
Subjective Progress Note Date: 01/20/19 This is a 43-year-old gentleman with history of esophageal varices, banding, portal hypertension ,ongoing alcohol abuse, liver cirrhosis, GI bleeds, noncompliant with medication regimen and multiple other medical issues admitted with complaints of hemoptysis, melena with nausea, vomiting. Reports ongoing alcohol consumption, with recent drinking-last night. Complains of periumbilical pain more to the right, which she reports is chronic. Denies fevers or chills. Reports confusion, generalized weakness, falls, lightheadedness. Denies chest pain, palpitations or shortness of breath. Hemoglobin on admission 5.6, received 3 units of RBCs, 2 FFP with current hemoglobin up to 6.7, platelets 95 currently receiving 4th unit of PRBC. INR 1.8, now down to 1.5. T bili 1.9, ammonia 57. Albumin 2.5. Serum alcohol 30. Less acid 3, repeat 1.2. Sodium 141, potassium 3.9, BUN/creatinine 20/0.59. EKG reporting sinus rhythm. Receiving IV fluids, Protonix and Zofran, admitted to the ICU. Maintained on Sandostatin currently at 50 mcgs. Denies any further hemoptysis, melena. GI consulted and patient is scheduled for EGD today. Currently maintaining O2 sats in the 90s on 3 L nasal cannula. 01/18/2019 EGD performed yesterday, reporting no active bleeding or old blood noted with variceal band ligation- 3 bands placed. 1 cm cratered duodenal ulcer without high risk stigmata for bleeding, portal hypertensive gastropathy. Tolerated procedure well. No further emesis or melena .Telemetry sinus rhythm. VSS. Maintained on IV Protonix twice a day, Sandostatin drip and IV fluid hydration. Hemoglobin 8.1. Potassium 3.3. Maintaining O2 sats in the 90s on room air.VSS. Afebrile, normal WBC. Ammonia 138, lactulose initiated. Vasquez catheter placed for urinary retention. Denies chest pain, palpitations or shortness of breath. 01/19/2019 maintained on Sandostatin drip, scheduled to be discontinued at 2000 tonight. IV fluid hydration continues. No signs or symptoms of bleeding. Hemoglobin 7.9. 2 brown bowel movements yesterday. Lactulose initiated yesterday with ammonia level currently at 73. Magnesium 1.7, receiving supplementation. No nausea, no vomiting. Complains of umbilical pain. More alert. No DTs. Telemetry sinus rhythm. VSS. 01/20/2019 transferred out of ICU, currently on MedSurg unit. Hemoglobin 8.6. No bleeding reported.VSS. Afebrile, WBC 11. Denies chest pain, palpitations or shortness of breath. Continues on CIWA protocol, NO DTs. Maintained on lac tulose, ammonia 85. Objective - Vital Signs Vital signs: Vital Signs Temp 98.3 F 01/20/19 06:38 Pulse 52 L 01/20/19 06:38 Resp 13 01/20/19 06:38 BP 110/57 01/20/19 06:38 Pulse Ox 96 01/20/19 07:44 Intake & Output 01/19/19 01/20/19 01/20/19 18:59 06:59 18:59 Intake Total 550 15 100 Output Total 865 1780 Balance -315 -1765 100 Intake: IV 300 15 Sodium Chloride 0.9% 1, 250 15 000 ml @ 5 mls/hr IV . Q24H RADHA Rx#:[id number] cefTRIAXone 1 gm In 50 Sodium Chloride 0.9% 50 ml @ 100 mls/hr IVPB Q24HR RADHA Rx#:[id number] Intake, IV Titration 250 100 Amount Magnesium Sulfate-D5w Pmx 100 1 gm In Dextrose/Water 1 100ml.bag @ 100 mls/hr IVPB Q1H RADHA Rx#: [id number] Octreotide 500 mcg In 250 Sodium Chloride 0.9% 250 ml @ 50 MCG/HR 25 mls/hr IV .Q10H RADHA Rx#: [id number] Output: Urine 565 1780 Stool 300 Other: Voiding Method Indwelling Catheter Indwelling Catheter - Exam General: Sitting up in bed, drowsy-arouses easily, alert and oriented times 3. no acute distress. HEENT: [PERRL. EOMI. No pharyngeal erythema or exudate. Oral mucosa moist. Neck: [Supple, No adenopathy.] Cardiac: Regular S1, S2. No S3. No S4. No clicks, rubs. No murmur.] Lungs: [Clear to auscultation bilaterally. No rhonchi, crackles, no wheezes Abdomen: [Distended, more firm, ascites, mild generalized periumbilical tenderness .No mass palpable. No guarding. Positive bowel sounds. Extremities: [No edema no cyanosis no claudication normal pulses] Skin: [No rash. Neurologic:CN II - XII grossly intact. No gross focal deficits. - Labs CBC & Chem 7: 01/20/19 05:05 01/20/19 05:05 Labs: Abnormal Lab Results - Last 24 Hours (Table) 01/19/19 01/19/19 01/19/19 Range/Units 11:53 17:03 20:59 WBC (3.8-10.6) k/uL RBC (4.30-5.90) m/uL Hgb (13.0-17.5) gm/dL Hct (39.0-53.0) % RDW (11.5-15.5) % Monocytes # (0-1.0) k/uL Eosinophils # (0-0.7) k/uL Sodium (137-145) mmol/L Chloride (98-107) mmol/L Carbon Dioxide (22-30) mmol/L BUN (9-20) mg/dL Creatinine (0.66-1.25) mg/dL POC Glucose (mg/dL) 152 H 125 H 109 H (75-99) mg/dL Calcium (8.4-10.2) mg/dL Ammonia (<30) umol/L 01/20/19 01/20/19 01/20/19 Range/Units 05:05 05:05 05:05 WBC 11.0 H (3.8-10.6) k/uL RBC 3.20 L (4.30-5.90) m/uL Hgb 8.6 L (13.0-17.5) gm/dL Hct 27.3 L (39.0-53.0) % RDW 19.9 H (11.5-15.5) % Monocytes # 1.1 H (0-1.0) k/uL Eosinophils # 0.8 H (0-0.7) k/uL Sodium 135 L (137-145) mmol/L Chloride 108 H (98-107) mmol/L Carbon Dioxide 20 L (22-30) mmol/L BUN 5 L (9-20) mg/dL Creatinine 0.47 L (0.66-1.25) mg/dL POC Glucose (mg/dL) (75-99) mg/dL Calcium 7.8 L (8.4-10.2) mg/dL Ammonia 85 H (<30) umol/L Assessment and Plan Assessment: -Acute on chronic blood loss anemia secondary to Acute GI bleed in a patient with history of esophageal varices with multiple bandings, liver cirrhosis, portal hypertension, ongoing alcohol abuse. Status post 4 units of packed RBCs, 2 units of FFP. Status post EGD reporting no active bleeding or old blood noted with variceal band ligation- 3 bands placed. 1 cm duodenal ulcer without bleeding, portal hypertensive gastropathy. -Ongoing EtOH abuse -Portal hypertension -Alcohol liver Cirrhosis with ascites. Last paracentesis 09/05/2018; cytology and cultures negative. -Coagulopathy secondary to liver disease -Hyperammonemia -Ongoing nicotine dependence -Nephrolithiasis -Thrombocytopenia, suspect chronic related to alcohol abuse Plan: Continue on current medication regime ,monitoring and symptomatic treatment. Maintain lactulose, Aldactone, Lasix, CIWA protocol, PPI,Rocephin. Close monitoring of ammonia, hemoglobin with daily levels ordered. Alcohol, smoking cessation readdressed . PT/OT. Increase ambulation as tolerated. The impression and plan of care has been dictated as directed. : I performed a history and examination of this patient, discussed the same with the dictator. I agree with the dictator's note ,documented as a scribe. Any additional findings or plans will be noted. Time taken: 35 minutes
[2019-01-21] MEDS: HYDROmorphone 1 MG/ML 1 ML SYRINGE IVP PRN ×7 (01:04→20:03)
[2019-01-21 07:18] LABS: African American GFR (CKD) >90 (>60 ml/min/1.73 sqM); Anion Gap 8 mmol/L; Blood Urea Nitrogen 4 mg/dL (9-20); Calcium 7.4 mg/dL (8.4-10.2); Carbon Dioxide 24 mmol/L (22-30); Chloride 103 mmol/L (98-107); Glucose 98 mg/dL (74-99); Magnesium 1.4 mg/dL (1.6-2.3); Potassium 3.1 mmol/L (3.5-5.1); Sodium 135 mmol/L (137-145)
[2019-01-21] MEDS ORDERED: Potassium Replacement Protocol 1 EACH MISC MISCELLANE PRN ×2 (07:39→15:20)
[2019-01-21] MEDS ORDERED: Magnesium Replacement Protocol 1 EACH MISC MISCELLANE PRN (07:40)
[2019-01-21 07:50] LABS: Anisocytosis Moderate; Basophils # (A) 0.1 k/uL (0-0.2); Basophils % (A) 1 %; Eosinophils # (A) 0.6 k/uL (0-0.7); Eosinophils % (A) 6 %; HCT 25.4 % (39.0-53.0); HGB 8.1 gm/dL (13.0-17.5); Hypochromasia Marked; Lymphocytes # (A) 1.4 k/uL (1.0-4.8); Lymphocytes % (A) 14 %; MCH 26.8 pg (25.0-35.0); MCHC 31.9 g/dL (31.0-37.0); MCV 83.9 fL (80.0-100.0); Mean Platelet Volume 9.3; Microcytosis Slight; Monocytes # (A) 1.6 k/uL (0-1.0); Monocytes % (A) 16 %; Neutrophils # (A) 5.9 k/uL (1.3-7.7); Neutrophils % (A) 60 %; Platelet Count 173 k/uL (150-450); Poikilocytosis Moderate; RBC 3.03 m/uL (4.30-5.90); RDW 20.2 % (11.5-15.5); WBC 9.9 k/uL (3.8-10.6)
[2019-01-21] MEDS: PANTOPRAZOLE 40 MG/10 ML VIAL IVP SCH ×2 (07:54→20:04)
[2019-01-21] MEDS: LACTULOSE 20 GM/30 ML CUP PO SCH (07:54)
[2019-01-21] MEDS: FUROSEMIDE 40 MG TAB PO SCH ×2 (07:55→15:52)
[2019-01-21] MEDS: PROPRANOLOL 10 MG TAB PO SCH ×2 (07:55→15:52)
[2019-01-21] MEDS: POTASSIUM CHLORIDE ER 20 MEQ TAB.ER PO SCH ×4 (07:55→16:59)
[2019-01-21] MEDS: THIAMINE 100 MG TAB PO SCH ×2 (07:55→17:00)
[2019-01-21] MEDS: SPIRONOLACTONE 25 MG TAB PO SCH (07:55)
[2019-01-21] MEDS: NICOTINE 21MG/24HR PATCH TRANSDERM SCH (07:56)
[2019-01-21] MEDS: MULTIVITAMINS, THERA 1 EACH TAB PO SCH (07:56)
[2019-01-21] MEDS: MAGNESIUM SULFATE-D5W PMX 1 GM in DEXTROSE/WATER 1 100ML.BAG IVPB SCH ×3 (08:46→11:05)
--- NOTE | 2019-01-21 10:49 | P.PN ---
Subjective Progress Note Date: 01/20/19 Principal diagnosis: Upper GI bleed Patient seen lying in bed. Tolerating diet. No signs or symptoms of GI bleeding. Objective - Vital Signs Vital signs: Vital Signs Temp 98.2 F 01/20/19 11:59 Pulse 57 L 01/20/19 11:59 Resp 18 01/20/19 11:59 BP 100/57 01/20/19 11:59 Pulse Ox 98 01/20/19 11:59 Intake & Output 01/19/19 01/20/19 01/20/19 18:59 06:59 18:59 Intake Total 550 15 100 Output Total 865 1780 Balance -315 -1765 100 Intake: IV 300 15 Sodium Chloride 0.9% 1, 250 15 000 ml @ 5 mls/hr IV . Q24H RADHA Rx#:[id number] cefTRIAXone 1 gm In 50 Sodium Chloride 0.9% 50 ml @ 100 mls/hr IVPB Q24HR RADHA Rx#:[id number] Intake, IV Titration 250 100 Amount Magnesium Sulfate-D5w Pmx 100 1 gm In Dextrose/Water 1 100ml.bag @ 100 mls/hr IVPB Q1H RADHA Rx#: [id number] Octreotide 500 mcg In 250 Sodium Chloride 0.9% 250 ml @ 50 MCG/HR 25 mls/hr IV .Q10H RADHA Rx#: [id number] Output: Urine 565 1780 Stool 300 Other: Voiding Method Indwelling Catheter Indwelling Catheter - Exam On physical examination, patient appears comfortable in no apparent distress. HEAD: Normocephalic, atraumatic. EYES: No scleral icterus. No conjunctival injection. MOUTH: No lesions, tongue midline. NECK: Trachea midline, no gross abnormalities. CHEST: Decreased air entry bilaterally. HEART: S1-S2 appreciated. ABDOMEN: Soft, mildly distended and nontender. Bowel sounds are positive. No o rganomegaly. No guarding or rigidity. EXTREMITIES: No pedal edema. SKIN: No rashes, no jaundice. NEUROLOGIC: Alert and oriented x3 no asterixis. No focal deficits. - Labs CBC & Chem 7: 01/21/19 06:42 01/21/19 06:42 Labs: Abnormal Lab Results - Last 24 Hours (Table) 01/19/19 01/19/19 01/20/19 Range/Units 17:03 20:59 05:05 WBC (3.8-10.6) k/uL RBC (4.30-5.90) m/uL Hgb (13.0-17.5) gm/dL Hct (39.0-53.0) % RDW (11.5-15.5) % Monocytes # (0-1.0) k/uL Eosinophils # (0-0.7) k/uL Sodium (137-145) mmol/L Chloride (98-107) mmol/L Carbon Dioxide (22-30) mmol/L BUN (9-20) mg/dL Creatinine (0.66-1.25) mg/dL POC Glucose (mg/dL) 125 H 109 H (75-99) mg/dL Calcium (8.4-10.2) mg/dL Ammonia 85 H (<30) umol/L 01/20/19 01/20/19 Range/Units 05:05 05:05 WBC 11.0 H (3.8-10.6) k/uL RBC 3.20 L (4.30-5.90) m/uL Hgb 8.6 L (13.0-17.5) gm/dL Hct 27.3 L (39.0-53.0) % RDW 19.9 H (11.5-15.5) % Monocytes # 1.1 H (0-1.0) k/uL Eosinophils # 0.8 H (0-0.7) k/uL Sodium 135 L (137-145) mmol/L Chloride 108 H (98-107) mmol/L Carbon Dioxide 20 L (22-30) mmol/L BUN 5 L (9-20) mg/dL Creatinine 0.47 L (0.66-1.25) mg/dL POC Glucose (mg/dL) (75-99) mg/dL Calcium 7.8 L (8.4-10.2) mg/dL Ammonia (<30) umol/L Assessment and Plan (1) Acute blood loss anemia Narrative/Plan: 43-year-old with decompensated alcoholic cirrhosis with ascites and varices who presented with sudden symptoms of upper GI bleed. Status post EGD with variceal banding and findings of portal hypertensive gastropathy. Hemoglobin has remained stable with no further signs or symptoms of GI bleeding. Current Visit: Yes Status: Acute Code(s): D62 - ACUTE POSTHEMORRHAGIC ANEMIA SNOMED Code(s): 205136610 (2) GI bleed Current Visit: Yes Status: Acute Code(s): K92.2 - GASTROINTESTINAL HEMORRHAGE, UNSPECIFIED SNOMED Code(s): 40113361 (3) Alcoholic cirrhosis of liver with ascites Current Visit: No Status: Acute Code(s): K70.31 - ALCOHOLIC CIRRHOSIS OF LIVER WITH ASCITES SNOMED Code(s): 476115259 Plan: Supportive care Okay for sodium restricted diet, soft diet Continue to monitor hemoglobin and transfuse as needed Alcohol abstinence Continue to monitor CBC, CMP Continue Aldactone 100 mg daily, continue Lasix twice a day Continue lactulose daily Okay for discharge when otherwise medically stable Thank you for allowing us to participate in the care of the patient, the GI service will stand by, please call with any questions or concerns
[2019-01-21] MEDS ORDERED: POTASSIUM CHLORIDE ER 20 MEQ TAB.ER PO STA (11:00)
[2019-01-21] MEDS: SODIUM CHLORIDE 0.9% 1,000 ML IV SCH (11:25)
--- NOTE | 2019-01-21 13:23 | P.PN ---
Progress Note - Text patient seen and examined repeat labs pending. plan D/C later today or tomorrow
[2019-01-21 14:31] LABS: African American GFR (CKD) >90 (>60 ml/min/1.73 sqM); Anion Gap 6 mmol/L; Blood Urea Nitrogen 4 mg/dL (9-20); Calcium 7.5 mg/dL (8.4-10.2); Carbon Dioxide 26 mmol/L (22-30); Chloride 102 mmol/L (98-107); Glucose 121 mg/dL (74-99); Magnesium 1.9 mg/dL (1.6-2.3); Potassium 3.3 mmol/L (3.5-5.1); Sodium 134 mmol/L (137-145)
[2019-01-22] MEDS: HYDROmorphone 1 MG/ML 1 ML SYRINGE IVP PRN ×6 (00:06→16:43)
[2019-01-22] MEDS: PROPRANOLOL 10 MG TAB PO SCH ×3 (00:11→15:29)
[2019-01-22 05:47] VITALS: RESP 20
[2019-01-22] MEDS: LACTULOSE 20 GM/30 ML CUP PO SCH (07:22)
[2019-01-22] MEDS: PANTOPRAZOLE 40 MG/10 ML VIAL IVP SCH (07:23)
[2019-01-22] MEDS: NICOTINE 21MG/24HR PATCH TRANSDERM SCH (07:23)
[2019-01-22] MEDS: THIAMINE 100 MG TAB PO SCH ×2 (07:23→15:39)
[2019-01-22] MEDS: MULTIVITAMINS, THERA 1 EACH TAB PO SCH (07:23)
[2019-01-22] MEDS: SPIRONOLACTONE 25 MG TAB PO SCH (07:23)
[2019-01-22] MEDS: FUROSEMIDE 40 MG TAB PO SCH ×2 (07:24→15:29)
[2019-01-22 08:42] LABS: African American GFR (CKD) >90 (>60 ml/min/1.73 sqM); Anion Gap 4 mmol/L; Blood Urea Nitrogen 5 mg/dL (9-20); Carbon Dioxide 26 mmol/L (22-30); Chloride 103 mmol/L (98-107); Glucose 100 mg/dL (74-99); Magnesium 1.5 mg/dL (1.6-2.3); Potassium 3.6 mmol/L (3.5-5.1); Sodium 133 mmol/L (137-145)
[2019-01-22] MEDS ORDERED: Magnesium Replacement Protocol 1 EACH MISC MISCELLANE PRN (09:20)
[2019-01-22 09:23] LABS: Anisocytosis Moderate; Basophils # (A) 0.1 k/uL (0-0.2); Basophils % (A) 1 %; Eosinophils # (A) 0.8 k/uL (0-0.7); Eosinophils % (A) 7 %; HCT 25.9 % (39.0-53.0); HGB 8.2 gm/dL (13.0-17.5); Hypochromasia Marked; Lymphocytes # (A) 1.6 k/uL (1.0-4.8); Lymphocytes % (A) 15 %; MCH 26.7 pg (25.0-35.0); MCHC 31.7 g/dL (31.0-37.0); MCV 84.2 fL (80.0-100.0); Mean Platelet Volume 9.1; Microcytosis Slight; Neutrophils # (A) 5.9 k/uL (1.3-7.7); Neutrophils % (A) 54 %; Platelet Count 214 k/uL (150-450); Poikilocytosis Moderate; RBC 3.08 m/uL (4.30-5.90); RDW 20.6 % (11.5-15.5); WBC 10.9 k/uL (3.8-10.6)
[2019-01-22] MEDS: MAGNESIUM SULFATE-D5W PMX 1 GM in DEXTROSE/WATER 1 100ML.BAG IVPB SCH ×2 (10:19→11:18)
[2019-01-22] MEDS: SODIUM CHLORIDE 0.9% 1,000 ML IV SCH (11:19)
[2019-01-22 11:46] VITALS: BP 110/66; TEMP 98.2
[2019-01-22 11:58] LABS: Monocytes % (A) 18 %
[2019-01-22 15:10] VITALS: PULSE 52
[2019-01-22] MEDS ORDERED: PANTOPRAZOLE 40 MG TABLET PO SCH (17:30)
== END 2019-01-22 18:59 | disposition home or self-care (01) | DRG 432 ==
LOC: EC 10:59 → 2SICU 13:05 → 3NMEDONC 01-20 08:20
PROVIDERS: ADMIT Family Medicine; ATTEND Family Medicine
PROC: 30233K1 Transfusion of Nonautologous Frozen Plasma into Peripheral Vein, Percutaneous Approach (ICD-10-PCS; 2019-01-16)
PROC: 30233N1 Transfusion of Nonautologous Red Blood Cells into Peripheral Vein, Percutaneous Approach (ICD-10-PCS; 2019-01-16)
PROC: 06L38CZ Occlusion of Esophageal Vein with Extraluminal Device, Via Natural or Artificial Opening Endoscopic (ICD-10-PCS; principal; 2019-01-17 09:35)
DX: K70.31 Alcoholic cirrhosis of liver with ascites (principal); I85.11 Secondary esophageal varices with bleeding; K76.6 Portal hypertension; D68.4 Acquired coagulation factor deficiency; D62 Acute posthemorrhagic anemia; K26.9 Duodenal ulcer, unspecified as acute or chronic, without hemorrhage or perforation; D69.59 Other secondary thrombocytopenia; F10.20 Alcohol dependence, uncomplicated; D50.0 Iron deficiency anemia secondary to blood loss (chronic); K31.89 Other diseases of stomach and duodenum; K70.40 Alcoholic hepatic failure without coma; J45.20 Mild intermittent asthma, uncomplicated; N20.0 Calculus of kidney; R33.9 Retention of urine, unspecified; F43.10 Post-traumatic stress disorder, unspecified; T50.906A Underdosing of unspecified drugs, medicaments and biological substances, initial encounter; Z91.128 Patient's intentional underdosing of medication regimen for other reason; Y90.1 Blood alcohol level of 20-39 mg/100 ml; F17.210 Nicotine dependence, cigarettes, uncomplicated; Z71.6 Tobacco abuse counseling; T51.0X1A Toxic effect of ethanol, accidental (unintentional), initial encounter; Z79.899 Other long term (current) drug therapy; Z90.49 Acquired absence of other specified parts of digestive tract; Z87.442 Personal history of urinary calculi; Z87.01 Personal history of pneumonia (recurrent); Z86.14 Personal history of Methicillin resistant Staphylococcus aureus infection; Y63.6 Underdosing and nonadministration of necessary drug, medicament or biological substance; Z98.890 Other specified postprocedural states; Z82.49 Family history of ischemic heart disease and other diseases of the circulatory system
CPT/HCPCS: 36415; 43255; 80048; 80053; 80320; 82140; 82550; 82803; 83605; 83690; 83735; 84100; 84484; 85025; 85027; 85610; 85730; 86850; 86870; 86880; 86900; 86901; 86902; 86920; 93005; 96361; 96372; 96374; 96375; 99285

== ENCOUNTER 2019-02-03 16:13 | Inpatient (IN) | payer OTHER ==
[2019-02-03] MEDS ORDERED: ONDANSETRON 4 MG/2 ML VIAL IVP STA (16:28)
[2019-02-03] MEDS ORDERED: SODIUM CHLORIDE 0.9% 1,000 ML IV STA (16:28)
[2019-02-03] MEDS ORDERED: SODIUM CHLORIDE 0.9% 500 ML 500 ML IV STA (16:28)
[2019-02-03] MEDS ORDERED: PANTOPRAZOLE 40 MG/10 ML VIAL IVP STA (16:28)
--- NOTE | 2019-02-03 16:30 | ED ---
GI Bleed HPI - General Chief complaint: GI Bleed Stated complaint: Vomiting blood Time Seen by Provider: 02/03/19 16:28 Source: patient, RN notes reviewed, old records reviewed Mode of arrival: ambulatory Limitations: no limitations - History of Present Illness Initial comments: This is a 44-year-old male the ER for evaluation patient resents today for evaluation regards to vomiting of blood. Patient states his vomiting blood having severe bowel pain and distention secondary to ascites. States he needs paracentesis secondary to pain history of alcoholism and alcoholic cirrhosis history of GI bleed. Patient denies recent alcohol abuse. Denies any specific abdominal pain, no fevers. No diarrhea. MD complaint: blood streaked emesis -: hour(s) Severity scale (1-10): 3 Consistency: constant Improves with: none Worsens with: none Context: history of GI bleed, liver disease Associated Symptoms: abdominal pain, nausea, vomiting Treatments Prior to Arrival: none - Related Data Home Medications Medication Instructions Recorded Confirmed Folic Acid 1 mg PO DAILY@1200 09/01/17 02/03/19 Multivitamins, Thera [Multivitamin 1 tab PO DAILY@1200 /02/03/19 (formulary)] Furosemide [Lasix] 40 mg PO DAILY 02/03/19 02/03/19 Previous Rx's Medication Instructions Recorded Thiamine [Vitamin B-1] 100 mg PO DAILY #30 tablet 09/03/17 Pantoprazole Sodium [Protonix] 40 mg PO DAILY #30 tablet. 12/06/18 Propranolol [Inderal] 10 mg PO TID #90 tab 12/06/18 Spironolactone [Aldactone] 100 mg PO DAILY #30 tab 12/06/18 HYDROcodone/APAP 7.5-325MG [[place] 1 tab PO Q4-6H PRN #10 tab 01/22/19 7.5-325] Lactulose [Cephulac] 20 gm PO TID #2700 ml 01/22/19 Magnesium Oxide [Mag-Ox] 400 mg PO DAILY #30 tablet 01/22/19 Potassium Chloride ER [K-Dur 20] 20 meq PO DAILY #10 tab 01/22/19 Allergies Allergy/AdvReac Type Severity Reaction Status Date / Time No Known Allergies Allergy Verified 02/03/19 16:45 Review of Systems ROS Statement: Those systems with pertinent positive or pertinent negative responses have been documented in the HPI. ROS Other: All systems not noted in ROS Statement are negative. Past Medical History Past Medical History: Asthma, GI Bleed, Liver Disease, Pneumonia Additional Past Medical History / Comment(s): ETOH abuse, liver cirrhosis, abd ominal ascites, pancreatitis, multiple gallstones, nephrolithiasis, chronic anemia, esophageal varices, hx urinating blood and kidneys stone, bleeding ulcers History of Any Multi-Drug Resistant Organisms: MRSA Date of last positivie culture/infection: 12/09/13 MDRO Source:: Right first finger Past Surgical History: Appendectomy, Cholecystectomy, Orthopedic Surgery Additional Past Surgical History / Comment(s): 07/09/17 EGD/colonoscopy, paracentesis, right hand tendon repair, right knee arthroscopy, cystoscopy for kidney stone removal, right hand ring finger surgery. blood transfusions. Past Anesthesia/Blood Transfusion Reactions: Previous Problems w/ Anesthesia Additional Past Anesthesia/Blood Transfusion Reaction / Comment(s): Woke up during scope procedure. Past Psychological History: PTSD Smoking Status: Current every day smoker Past Alcohol Use History: Abuse, Daily Past Drug Use History: Marijuana - Past Family History Mother Family Medical History: Hypertension Father Additional Family Medical History / Comment(s): Prostate issues. Brain aneurysm. General Exam Limitations: no limitations General appearance: alert, in no apparent distress Head exam: Present: atraumatic, normocephalic, normal inspection Eye exam: Present: normal appearance, PERRL, EOMI. Absent: scleral icterus, conjunctival injection, periorbital swelling ENT exam: Present: normal exam, mucous membranes dry Neck exam: Present: normal inspection. Absent: tenderness, meningismus, lymphadenopathy Respiratory exam: Present: normal lung sounds bilaterally. Absent: respiratory distress, wheezes, rales, rhonchi, stridor Cardiovascular Exam: Present: regular rate, normal rhythm, normal heart sounds. Absent: systolic murmur, diastolic murmur, rubs, gallop, clicks GI/Abdominal exam: Present: soft, normal bowel sounds. Absent: distended, tenderness, guarding, rebound, rigid Extremities exam: Present: normal inspection, full ROM, normal capillary refill. Absent: tenderness, pedal edema, joint swelling, calf tenderness Back exam: Present: normal inspection Neurological exam: Present: alert, oriented X3, CN II-XII intact Psychiatric exam: Present: normal affect, normal mood Skin exam: Present: warm, dry, intact, normal color. Absent: rash Course Vital Signs 02/03/19 16:22 Temperature 98.0 F Pulse Rate 98 Respiratory 18 Rate Blood Pressure 118/71 O2 Sat by Pulse 98 Oximetry - Reevaluation(s) Reevaluation #1: 02/03/19 18:46 Patient has no active vomiting of blood here in the ER Reevaluation #2: 02/03/19 18:47 Medical records reviewed, anemia is chronic Medical Decision Making - Medical Decision Making 41 female the ER for evaluation complaining of vomiting of blood. Patient also has significant ascites complaining of severe pain and abdominal pain and need for paracentesis he was scheduled for therapeutic paracentesis on Wednesday unable to make it to Wednesday. Patient not on blood thinners was complaining of vomiting of blood. - Lab Data Result diagrams: 02/03/19 16:47 02/03/19 16:47 Lab Results 02/03/19 02/03/19 02/03/19 Range/Units 16:47 16:47 16:47 WBC 7.0 (3.8-10.6) k/uL RBC 3.15 L (4.30-5.90) m/uL Hgb 7.9 L (13.0-17.5) gm/dL Hct 26.0 L (39.0-53.0) % MCV 82.5 (80.0-100.0) fL MCH 25.2 (25.0-35.0) pg MCHC 30.5 L (31.0-37.0) g/dL RDW 19.9 H (11.5-15.5) % Plt Count 247 (150-450) k/uL Neutrophils % (Manual) 77 % Lymphocytes % (Manual) 14 % Monocytes % (Manual) 5 % Eosinophils % (Manual) 4 % Neutrophils # (Manual) 5.39 (1.3-7.7) k/uL Lymphocytes # (Manual) 0.98 L (1.0-4.8) k/uL Monocytes # (Manual) 0.35 (0-1.0) k/uL Eosinophils # (Manual) 0.28 (0-0.7) k/uL Nucleated RBCs 0 (0-0) /100 WBC Manual Slide Review Performed Hypochromasia Marked Poikilocytosis Slight Anisocytosis Slight Microcytosis Slight PT (9.0-12.0) sec INR (<1.2) APTT (22.0-30.0) sec Sodium 143 (137-145) mmol/L Potassium 3.8 (3.5-5.1) mmol/L Chloride 110 H (98-107) mmol/L Carbon Dioxide 19 L (22-30) mmol/L Anion Gap 14 mmol/L BUN 9 (9-20) mg/dL Creatinine 0.48 L (0.66-1.25) mg/dL Est GFR (CKD-EPI)AfAm >90 (>60 ml/min/1.73 sqM) Est GFR (CKD-EPI)NonAf >90 (>60 ml/min/1.73 sqM) Glucose 111 H (74-99) mg/dL Calcium 8.5 (8.4-10.2) mg/dL Magnesium 2.0 (1.6-2.3) mg/dL Total Bilirubin 0.8 (0.2-1.3) mg/dL AST 44 (17-59) U/L ALT 19 L (21-72) U/L Alkaline Phosphatase 105 (38-126) U/L Ammonia 31 H (<30) umol/L Troponin I (0.000-0.034) ng/mL Total Protein 6.8 (6.3-8.2) g/dL Albumin 3.3 L (3.5-5.0) g/dL Lipase 281 (23-300) U/L Blood Type Blood Type Recheck Bld Type Recheck Status Antibody Screen Spec Expiration Date 02/03/19 02/03/19 02/03/19 Range/Units 16:47 16:47 16:47 WBC (3.8-10.6) k/uL RBC (4.30-5.90) m/uL Hgb (13.0-17.5) gm/dL Hct (39.0-53.0) % MCV (80.0-100.0) fL MCH (25.0-35.0) pg MCHC (31.0-37.0) g/dL RDW (11.5-15.5) % Plt Count (150-450) k/uL Neutrophils % (Manual) % Lymphocytes % (Manual) % Monocytes % (Manual) % Eosinophils % (Manual) % Neutrophils # (Manual) (1.3-7.7) k/uL Lymphocytes # (Manual) (1.0-4.8) k/uL Monocytes # (Manual) (0-1.0) k/uL Eosinophils # (Manual) (0-0.7) k/uL Nucleated RBCs (0-0) /100 WBC Manual Slide Review Hypochromasia Poikilocytosis Anisocytosis Microcytosis PT 11.7 (9.0-12.0) sec INR 1.1 (<1.2) APTT 26.4 (22.0-30.0) sec Sodium (137-145) mmol/L Potassium (3.5-5.1) mmol/L Chloride (98-107) mmol/L Carbon Dioxide (22-30) mmol/L Anion Gap mmol/L BUN (9-20) mg/dL Creatinine (0.66-1.25) mg/dL Est GFR (CKD-EPI)AfAm (>60 ml/min/1.73 sqM) Est GFR (CKD-EPI)NonAf (>60 ml/min/1.73 sqM) Glucose (74-99) mg/dL Calcium (8.4-10.2) mg/dL Magnesium (1.6-2.3) mg/dL Total Bilirubin (0.2-1.3) mg/dL AST (17-59) U/L ALT (21-72) U/L Alkaline Phosphatase (38-126) U/L Ammonia (<30) umol/L Troponin I <0.012 (0.000-0.034) ng/mL Total Protein (6.3-8.2) g/dL Albumin (3.5-5.0) g/dL Lipase (23-300) U/L Blood Type A Negative Blood Type Recheck A Neg Bld Type Recheck Status No Antibody Screen NEGATIVE Spec Expiration Date 02/06/20192346 Disposition Clinical Impression: Cirrhosis, Dehydration, ETOH abuse, GI bleed, Ascites, Abdominal pain Disposition: ADMITTED IP TO THIS [facility] Condition: Good Is patient prescribed a controlled substance at d/c from ED?: No Referrals: James Meza Jr, DO [Primary Care Provider] - 1-2 days
[2019-02-03 17:12] LABS: ALT 19 U/L (21-72); AST 44 U/L (17-59); African American GFR (CKD) >90 (>60 ml/min/1.73 sqM); Albumin 3.3 g/dL (3.5-5.0); Alkaline Phosphatase 105 U/L (38-126); Anion Gap 14 mmol/L; Blood Urea Nitrogen 9 mg/dL (9-20); Calcium 8.5 mg/dL (8.4-10.2); Carbon Dioxide 19 mmol/L (22-30); Chloride 110 mmol/L (98-107); Glucose 111 mg/dL (74-99); Potassium 3.8 mmol/L (3.5-5.1); Sodium 143 mmol/L (137-145); Total Bilirubin 0.8 mg/dL (0.2-1.3); Total Protein 6.8 g/dL (6.3-8.2)
[2019-02-03 17:15] LABS: INR 1.1 (<1.2); Partial Thromboplastin Time 26.4 sec (22.0-30.0); Prothrombin Time 11.7 sec (9.0-12.0)
[2019-02-03 17:20] LABS: Anisocytosis Slight; HGB 7.9 gm/dL (13.0-17.5); Hypochromasia Marked; MCH 25.2 pg (25.0-35.0); MCHC 30.5 g/dL (31.0-37.0); MCV 82.5 fL (80.0-100.0); Microcytosis Slight; Platelet Count 247 k/uL (150-450); Poikilocytosis Slight; RBC 3.15 m/uL (4.30-5.90); RDW 19.9 % (11.5-15.5)
[2019-02-03 18:03] LABS: Eosinophils # (M) 0.28 k/uL (0-0.7); Lymphocytes # (M) 0.98 k/uL (1.0-4.8); Monocytes # (M) 0.35 k/uL (0-1.0); Neutrophils % (M) 77 %; Nucleated Red Blood Cells 0 /100 WBC (0-0); Total Cells Counted 100
[2019-02-03] MEDS ORDERED: THIAMINE 100 MG/ML 2 ML VIAL IM STA (18:42)
[2019-02-03] MEDS ORDERED: LORazepam 2 MG/ML INJ IV PRN ×3 (18:42)
[2019-02-03] MEDS ORDERED: MORPHINE SULFATE 4 MG/ML SYRINGE IVP STA (18:42)
[2019-02-03] MEDS ORDERED: ONDANSETRON 4 MG/2 ML VIAL IVP PRN (18:42)
[2019-02-03] MEDS: DEXTROSE 5%-0.45% NACL 1,000 ML IV SCH (19:11)
[2019-02-03 20:46] LABS: Anisocytosis Moderate; HCT 26.5 % (39.0-53.0); HGB 8.2 gm/dL (13.0-17.5); Hypochromasia Marked; MCH 25.9 pg (25.0-35.0); MCV 83.6 fL (80.0-100.0); Mean Platelet Volume 7.9; Microcytosis Slight; Platelet Count 224 k/uL (150-450); Poikilocytosis Slight; RBC 3.18 m/uL (4.30-5.90); WBC 6.7 k/uL (3.8-10.6)
[2019-02-03] MEDS: MORPHINE SULFATE 4 MG/ML SYRINGE IVP PRN (21:59)
[2019-02-03] MEDS: PANTOPRAZOLE 40 MG/10 ML VIAL IVP SCH (22:04)
[2019-02-04] MEDS: MORPHINE SULFATE 4 MG/ML SYRINGE IVP PRN ×6 (02:34→21:46)
[2019-02-04] MEDS: PANTOPRAZOLE 40 MG/10 ML VIAL IVP SCH ×2 (09:43→19:55)
[2019-02-04] MEDS: THIAMINE 100 MG TAB PO SCH ×2 (10:48→18:46)
[2019-02-04] MEDS: MULTIVITAMINS, THERA 1 EACH TAB PO SCH (10:48)
[2019-02-04] MEDS: FUROSEMIDE 10 MG/ML 4 ML VIAL IV SCH ×2 (11:18→19:55)
[2019-02-04] MEDS: SPIRONOLACTONE 25 MG TAB PO SCH (11:18)
[2019-02-04] MEDS ORDERED: ALBUTEROL NEBULIZED 2.5 MG/3 ML INHALATION PRN (13:14)
--- NOTE | 2019-02-04 13:14 | P.HPIM ---
History of Present Illness H&P Date: 02/04/19 Chief Complaint: Abdominal distention and pain This is a 44-year-old white male well-known to the practice from his multiple hospital admissions. He is a known history of esophageal varices, blood loss anemia vomiting, significant alcoholism and cirrhosis. He presented to the emergency room for increased abdominal pain. Seen gastroenterology on February 02. He is complaining of increased abdominal pain and distention. Apparently is been out of his Lasix for several weeks. His abdominal was reduced and at that point. He is scheduled for paracentesis on February 06. Due to his increased pain and symptoms he came emergency room and was admitted for possible paracentesis imminently. Currently complains of some shortness of breath and some difficulty breathing due to the abdominal distention. He complained of a small amount of black stool, but nothing compared to his previous episodes. He has some sharp chest pain with deep inspiration as well as this time. He denies any significant nausea or vomiting. Review of Systems All systems: negative Past Medical History Past Medical History: Asthma, GI Bleed, Liver Disease, Pneumonia Additional Past Medical History / Comment(s): ETOH abuse, liver cirrhosis, abdominal ascites, pancreatitis, multiple gallstones, nephrolithiasis, chronic anemia, esophageal varices, hx urinating blood and kidneys stone, bleeding ulcers, hernia History of Any Multi-Drug Resistant Organisms: None Reported, MRSA Date of last positivie culture/infection: 12/09/13 MDRO Source:: Right first finger Past Surgical History: Appendectomy, Cholecystectomy, Orthopedic Surgery Additional Past Surgical History / Comment(s): 07/09/17 EGD/colonoscopy, paracentesis, right hand tendon repair, right knee arthroscopy, cystoscopy for kidney stone removal, right hand ring finger surgery. blood transfusions. Past Anesthesia/Blood Transfusion Reactions: Previous Problems w/ Anesthesia Additional Past Anesthesia/Blood Transfusion Reaction / Comment(s): Woke up during scope procedure. Past Psychological History: PTSD Additional Psychological History / Comment(s): PT currently resides with his parents. active alcohol use. Current marijuana use. No current injection drug use. 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 Patient states reduced the amount of alcohol to a few days a week, drinking 5 12oz cans of beer on those occasions. Pt states used to drink a fifth or 1/2 gallon of vodka and some beers daily. Past Drug Use History: Marijuana Additional Drug Use History / Comment(s): Pt states he smokes marijuana on occasion. No other drug use. - Past Family History Mother Family Medical History: Hypertension Father Additional Family Medical History / Comment(s): Prostate issues grandpa. Brain aneurysm father. Medications and Allergies Home Medications Medication Instructions Recorded Confirmed Type Folic Acid 1 mg PO DAILY@1200 09/01/17 02/03/19 History Thiamine [Vitamin B-1] 100 mg PO DAILY #30 tablet 09/03/17 02/03/19 Rx Pantoprazole Sodium [Protonix] 40 mg PO DAILY #30 tablet. 12/06/18 02/03/19 Rx Propranolol [Inderal] 10 mg PO TID #90 tab 12/06/18 02/03/19 Rx Spironolactone [Aldactone] 100 mg PO DAILY #30 tab 12/06/18 02/03/19 Rx Multivitamins, Thera [Multivitamin 1 tab PO DAILY@1200 12/14/18 02/03/19 History (formulary)] HYDROcodone/APAP 7.5-325MG [[place] 1 tab PO Q4-6H PRN #10 tab 01/22/19 02/03/19 Rx 7.5-325] Lactulose [Cephulac] 20 gm PO TID #2700 ml 01/22/19 02/03/19 Rx Magnesium Oxide [Mag-Ox] 400 mg PO DAILY #30 tablet 01/22/19 02/03/19 Rx Potassium Chloride ER [K-Dur 20] 20 meq PO DAILY #10 tab 01/22/19 02/03/19 Rx Furosemide [Lasix] 40 mg PO DAILY 02/03/19 02/03/19 History Allergies Allergy/AdvReac Type Severity Reaction Status Date / Time No Known Allergies Allergy Verified 02/03/19 16:45 Physical Exam Vitals: Vital Signs Temp Pulse Pulse Resp BP BP BP 02/04/19 07:10 98.6 F 16 114/72 02/04/19 04:00 18 02/04/19 03:33 99.2 F 87 18 119/72 02/04/19 01:50 98.0 F 99 16 110/57 02/04/19 00:00 18 02/03/19 22:09 20 02/03/19 19:06 110 H 20 117/70 02/03/19 16:22 98.0 F 98 18 118/71 Pulse Ox 02/04/19 07:10 94 L 02/04/19 04:00 02/04/19 03:33 96 02/04/19 01:50 93 L 02/04/19 00:00 02/03/19 22:09 02/03/19 19:06 97 02/03/19 16:22 98 Intake and Output 02/03/19 02/04/19 02/04/19 22:59 06:59 14:59 Other: Voiding Method Toilet # Voids 1 Weight 89.358 kg GENERAL: Fatigued, no significant jaundice noted, and in no acute distress. HEAD: Atraumatic, normocephalic. EYES: Pupils equal round and reactive to light, extraocular movements intact, sclera anicteric, conjunctiva are normal. ENT:nares patent, oropharynx clear without exudates. Moist mucous membranes. NECK: Normal range of motion, supple without lymphadenopathy or JVD, no thyromegaly LUNGS: Breath sounds clear to auscultation bilaterally and equal. No wheezes rales or rhonchi. Somewhat difficult for him to take a deep breath. HEART: Regular rate and rhythm without murmurs, rubs or gallops.S1S2 Normal ABDOMEN: Soft, mildly tender, quite distended. Positive fluid wave, CONSISTENT with significant ascites. EXTREMITIES: Normal range of motion, no pitting or edema. No clubbing or cyanosis. NEUROLOGICAL: Cranial nerves II through XII grossly intact. Normal speech, normal gait. PSYCH: Normal mood, normal affect. SKIN: Warm, Dry, normal turgor, no rashes or lesions noted. Results CBC & Chem 7: 02/03/19 20:23 02/03/19 16:47 Labs: Abnormal Lab Results - Last 24 Hours (Table) 02/03/19 02/03/19 02/03/19 Range/Units 16:47 16:47 16:47 RBC 3.15 L (4.30-5.90) m/uL Hgb 7.9 L (13.0-17.5) gm/dL Hct 26.0 L (39.0-53.0) % MCHC 30.5 L (31.0-37.0) g/dL RDW 19.9 H (11.5-15.5) % Lymphocytes # (Manual) 0.98 L (1.0-4.8) k/uL Chloride 110 H (98-107) mmol/L Carbon Dioxide 19 L (22-30) mmol/L Creatinine 0.48 L (0.66-1.25) mg/dL Glucose 111 H (74-99) mg/dL ALT 19 L (21-72) U/L Ammonia 31 H (<30) umol/L Albumin 3.3 L (3.5-5.0) g/dL 02/03/19 Range/Units 20:23 RBC 3.18 L (4.30-5.90) m/uL Hgb 8.2 L (13.0-17.5) gm/dL Hct 26.5 L (39.0-53.0) % MCHC (31.0-37.0) g/dL RDW 20.0 H (11.5-15.5) % Lymphocytes # (Manual) (1.0-4.8) k/uL Chloride (98-107) mmol/L Carbon Dioxide (22-30) mmol/L Creatinine (0.66-1.25) mg/dL Glucose (74-99) mg/dL ALT (21-72) U/L Ammonia (<30) umol/L Albumin (3.5-5.0) g/dL Thrombosis Risk Factor Assmnt - DVT/VTE Prophylaxis DVT/VTE Prophylaxis: Low risk, early ambulation encouraged - Choose All That Apply Each Factor Represents 1 point: Age 41-60 years Other Risk Factors: No Thrombosis Risk Factor Assessment Total Risk Factor Score: 1 Thrombosis Risk Factor Assessment Level: Low Risk Assessment and Plan (1) Abdominal pain Current Visit: Yes Status: Acute Code(s): R10.9 - UNSPECIFIED ABDOMINAL PAIN SNOMED Code(s): 17340147 (2) Alcoholic liver disease Current Visit: No Status: Acute Code(s): K70.9 - ALCOHOLIC LIVER DISEASE, UNSPECIFIED SNOMED Code(s): 17898121 (3) Tobacco abuse Current Visit: Yes Status: Acute Code(s): Z72.0 - TOBACCO USE SNOMED Code(s): 920918963 (4) Chronic blood loss anemia Current Visit: Yes Status: Acute Code(s): D50.0 - IRON DEFICIENCY ANEMIA SECONDARY TO BLOOD LOSS (CHRONIC) SNOMED Code(s): 706833572 (5) Ascites Current Visit: Yes Status: Acute Code(s): R18.8 - OTHER ASCITES SNOMED Code(s): 600738904 (6) Cirrhosis Current Visit: Yes Status: Acute Code(s): K74.60 - UNSPECIFIED CIRRHOSIS OF LIVER SNOMED Code(s): 90837207 (7) ETOH abuse Current Visit: Yes Status: Acute Code(s): F10.10 - ALCOHOL ABUSE, UNCOMPLICATED SNOMED Code(s): 55246374 (8) Alcohol intoxication Current Visit: No Status: Acute Code(s): F10.929 - ALCOHOL USE, UNSPECIFIED WITH INTOXICATION, UNSPECIFIED SNOMED Code(s): 92430767 (9) Cirrhosis of liver with ascites Current Visit: No Status: Acute Code(s): K74.60 - UNSPECIFIED CIRRHOSIS OF LIVER; R18.8 - OTHER ASCITES SNOMED Code(s): 35232937 (10) Coagulopathy Current Visit: No Status: Acute Code(s): D68.9 - COAGULATION DEFECT, UN SPECIFIED SNOMED Code(s): 83464159 (11) Esophageal varices Current Visit: No Status: Acute Code(s): I85.00 - ESOPHAGEAL VARICES WITHOUT BLEEDING SNOMED Code(s): 94762579 (12) Portal hypertension Current Visit: No Status: Acute Code(s): K76.6 - PORTAL HYPERTENSION SNOMED Code(s): 73981730 Plan: She has seen him and placed him on Lasix along with his Aldactone. He is up to the bathroom without any issues. He is awake and alert, without any evidence of liver encephalopathy. We'll repeat labs in a.m. Reevaluate him in the next 24 hours. Further recommendations from GI. I will order Ventolin HFA see if this helps with his shortness of breath.
[2019-02-04] MEDS: DEXTROSE 5%-0.45% NACL 1,000 ML IV SCH ×2 (18:47→22:51)
--- NOTE | 2019-02-04 20:47 | P.CONS ---
History of Present Illness - Reason for Consult Consult date: 02/04/19 Cirrhosis Requesting physician: Aristeo Fox - Chief Complaint Abdominal distention - History of Present Illness 44-year-old male with a medical history significant for decompensated alcoholic cirrhosis with ascites and varices who presented to the hospital with complaints of increased abdominal distention. Patient reports that he ran out of the medication in the outpatient setting and was only seen this week and office during which time he was given a refill. However he reports that over the past. Weeks he has had increasing distention discomfort secondary to this abdominal distention. He reports pain secondary to the distention as well as difficulty breathing patient has required paracentesis in the past. He is also had EGD with variceal bleeding. He reports that after presentation to the hospital he had one to 2 episodes with a small amount of bright red blood seen. Denies any melena or change in bowel habits. Laboratory evaluation on presentation was significant for a WBC 6.7, hemoglobin 8.7, platelet count 224,000, INR 1.1, total bilirubin 0.8, alkaline phosphatase 105, AST 44 and ALTs 19 with a creatinine of 0.8. Review of Systems REVIEW OF SYSTEMS: CONSTITUTIONAL: Denies any fevers, chills, weight change or fatigue. CARDIOVASCULAR: Denies any chest pain, palpitations high or low blood pressures RESPIRATORY: Denies any hemoptysis or cough, but does report some shortness of breath due to distention. GENITOURINARY: No dysuria or hematuria. MUSCULOSKELETAL: No weakness reported. SKIN: Denies any new rashes or lesions, jaundice or pallor. PSYCHIATRIC: Denies any depression or anxiety. NEUROLOGY: Denies headache, denies any new focal deficits. EARS/NOSE/THROAT: No recent hearing change, congestion, nasal discharge or sore throat. EYES: No pain in eyes, discharge or change in vision. GASTROINTESTINAL: As per HPI. Past Medical History Past Medical History: Asthma, GI Bleed, Liver Disease, Pneumonia Additional Past Medical History / Comment(s): ETOH abuse, liver cirrhosis, abdominal ascites, pancreatitis, multiple gallstones, nephrolithiasis, chronic anemia, esophageal varices, hx urinating blood and kidneys stone, bleeding ulcers, hernia History of Any Multi-Drug Resistant Organisms: None Reported, MRSA Year Discovered:: 12/09/13 MDRO Source:: Right first finger Past Surgical History: Appendectomy, Cholecystectomy, Orthopedic Surgery Additional Past Surgical History / Comment(s): 07/09/17 EGD/colonoscopy, paracentesis, right hand tendon repair, right knee arthroscopy, cystoscopy for kidney stone removal, right hand ring finger surgery. blood transfusions. Past Anesthesia/Blood Transfusion Reactions: Previous Problems w/ Anesthesia Additional Past Anesthesia/Blood Transfusion Reaction / Comm: Woke up during sc ope procedure. Past Psychological History: PTSD Additional Psychological History / Comment(s): PT currently resides with his parents. active alcohol use. Current marijuana use. No current injection drug use. 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 Patient states reduced the amount of alcohol to a few days a week, drinking 5 12oz cans of beer on those occasions. Pt states used to drink a fifth or 1/2 gallon of vodka and some beers daily. Past Drug Use History: Marijuana Additional Drug Use History / Comment(s): Pt states he smokes marijuana on occasion. No other drug use. - Past Family History Mother Family Medical History: Hypertension Father Additional Family Medical History / Comment(s): Prostate issues grandpa. Brain aneurysm father. Medications and Allergies Home Medications Medication Instructions Recorded Confirmed Type Folic Acid 1 mg PO DAILY@1200 09/01/17 02/03/19 History Thiamine [Vitamin B-1] 100 mg PO DAILY #30 tablet 09/03/17 02/03/19 Rx Pantoprazole Sodium [Protonix] 40 mg PO DAILY #30 tablet. 12/06/18 02/03/19 Rx Propranolol [Inderal] 10 mg PO TID #90 tab 12/06/18 02/03/19 Rx Spironolactone [Aldactone] 100 mg PO DAILY #30 tab 12/06/18 02/03/19 Rx Multivitamins, Thera [Multivitamin 1 tab PO DAILY@1200 12/14/18 02/03/19 History (formulary)] HYDROcodone/APAP 7.5-325MG [[place] 1 tab PO Q4-6H PRN #10 tab 01/22/19 02/03/19 Rx 7.5-325] Lactulose [Cephulac] 20 gm PO TID #2700 ml 01/22/19 02/03/19 Rx Magnesium Oxide [Mag-Ox] 400 mg PO DAILY #30 tablet 01/22/19 02/03/19 Rx Potassium Chloride ER [K-Dur 20] 20 meq PO DAILY #10 tab 01/22/19 02/03/19 Rx Furosemide [Lasix] 40 mg PO DAILY 02/03/19 02/03/19 History Allergies Allergy/AdvReac Type Severity Reaction Status Date / Time No Known Allergies Allergy Verified 02/03/19 16:45 Physical Exam Vitals: Vital Signs Temp Pulse Pulse Resp BP BP Pulse Ox 02/04/19 19:18 98.9 F 87 18 114/71 97 02/04/19 17:44 100 02/04/19 17:42 97 02/04/19 17:37 107 H 02/04/19 15:00 98.2 F 91 15 106/70 95 02/04/19 07:10 98.6 F 16 114/72 94 L 02/04/19 04:00 18 02/04/19 03:33 99.2 F 87 18 119/72 96 02/04/19 01:50 98.0 F 99 16 110/57 93 L 02/04/19 00:00 18 02/03/19 22:09 20 Intake and Output 02/04/19 02/04/19 02/04/19 06:59 14:59 22:59 Output Total 3 Balance -3 Output: Urine 3 Other: Voiding Method Toilet Toilet # Voids 1 On physical examination, patient appears comfortable in no apparent distress. HEAD: Normocephalic, atraumatic. EYES: No scleral icterus. No conjunctival injection. MOUTH: No lesions, tongue midline. NECK: Trachea midline, no gross abnormalities. CHEST: Clear to auscultation with no wheezing or rhonchi appreciated. HEART: Regular rate and rhythm. ABDOMEN: Soft, distended with positive fluid wave. Bowel sounds are positive. No organomegaly. No guarding or rigidity. EXTREMITIES: No pedal edema. SKIN: No rashes, no jaundice. NEUROLOGIC: Alert and oriented x3, with no asterixis noted. No focal deficits. Results CBC & Chem 7: 02/03/19 20:23 02/03/19 16:47 Labs: Abnormal Lab Results - Last 24 Hours (Table) 02/03/19 Range/Units 20:23 RBC 3.18 L (4.30-5.90) m/uL Hgb 8.2 L (13.0-17.5) gm/dL Hct 26.5 L (39.0-53.0) % RDW 20.0 H (11.5-15.5) % Assessment and Plan (1) Decompensated liver disease Narrative/Plan: 44-year-old male with a known history of decompensated alcoholic cirrhosis with prior variceal bleeding, and ascites who presented to the hospital due to increasing abdominal distention after running out of his diuretics in the outpatient setting. He reports worsening abdominal distention over the last few weeks with associated abdominal pain and difficulty breathing. He did have 2 episodes where he reports vomiting some red blood after presentation. However, no further episodes since that time and no melena reported. Current Visit: No Status: Acute Code(s): K74.69 - OTHER CIRRHOSIS OF LIVER SNOMED Code(s): 62491537 (2) Abdominal pain Current Visit: Yes Status: Acute Code(s): R10.9 - UNSPECIFIED ABDOMINAL PAIN SNOMED Code(s): 31507383 (3) Ascites Current Visit: Yes Status: Acute Code(s): R18.8 - OTHER ASCITES SNOMED Code(s): 857377909 (4) Cirrhosis Current Visit: Yes Status: Acute Code(s): K74.60 - UNSPECIFIED CIRRHOSIS OF LIVER SNOMED Code(s): 22239233 (5) ETOH abuse Current Visit: Yes Status: Acute Code(s): F10.10 - ALCOHOL ABUSE, UNCOMPLICATED SNOMED Code(s): 07741219 (6) Hematemesis Current Visit: Yes Status: Acute Code(s): K92.0 - HEMATEMESIS SNOMED Code(s): 3023952 (7) Chronic anemia Narrative/Plan: Chronic anemia secondary to underlying cirrhosis, myelosuppressive toxicity from alcohol. Current Visit: No Status: Acute Code(s): D64.9 - ANEMIA, UNSPECIFIED SNOMED Code(s): 155523658 (8) Esophageal varices Current Visit: No Status: Acute Code(s): I85.00 - ESOPHAGEAL VARICES WITHOUT BLEEDING SNOMED Code(s): 26839907 Plan: Supportive care Okay for sodium restricted diet Continue Protonix IV twice daily Continue to monitor hemoglobin and transfuse as needed Lactulose 20 mg 3 times a day titrated to 2-3 bowel movements Nothing by mouth after midnight Plan for EGD in the morning for investigation of hematemesis Ultrasound-guided paracentesis Continue Lasix 40 mg IV twice daily and Aldactone 100 mg daily Thank you for allowing us to participate in the care of the patient we will continue to follow
[2019-02-04] MEDS: LACTULOSE 20 GM/30 ML CUP PO SCH (21:45)
[2019-02-05] MEDS: MORPHINE SULFATE 4 MG/ML SYRINGE IVP PRN ×6 (01:52→21:31)
--- NOTE | 2019-02-05 06:49 | XR ---
EXAMINATION TYPE: XR chest 2V DATE OF EXAM: 02/05/2019 HISTORY: shortness of breath. REFERENCE: Previous study dated 09/18/2018. FINDINGS: There is some right basilar atelectasis. There is a small right effusion. Left lung is sidney r. The heart is not enlarged. IMPRESSION: 1. MINIMAL RIGHT BASILAR ATELECTASIS. 2. SMALL RIGHT EFFUSION.
[2019-02-05 07:33] LABS: ALT 21 U/L (21-72); AST 45 U/L (17-59); African American GFR (CKD) >90 (>60 ml/min/1.73 sqM); Albumin 2.9 g/dL (3.5-5.0); Alkaline Phosphatase 91 U/L (38-126); Anion Gap 8 mmol/L; Blood Urea Nitrogen 12 mg/dL (9-20); Calcium 8.1 mg/dL (8.4-10.2); Carbon Dioxide 21 mmol/L (22-30); Chloride 107 mmol/L (98-107); Glucose 91 mg/dL (74-99); Magnesium 1.5 mg/dL (1.6-2.3); Sodium 136 mmol/L (137-145); Total Bilirubin 1.6 mg/dL (0.2-1.3); Total Protein 6.2 g/dL (6.3-8.2)
[2019-02-05] MEDS: MULTIVITAMINS, THERA 1 EACH TAB PO SCH (07:38)
[2019-02-05] MEDS: SPIRONOLACTONE 25 MG TAB PO SCH (07:38)
[2019-02-05] MEDS: THIAMINE 100 MG TAB PO SCH ×2 (07:38→17:48)
[2019-02-05] MEDS: LACTULOSE 20 GM/30 ML CUP PO SCH ×3 (07:38→21:32)
[2019-02-05] MEDS: PANTOPRAZOLE 40 MG/10 ML VIAL IVP SCH ×2 (07:52→21:32)
[2019-02-05] MEDS: FUROSEMIDE 10 MG/ML 4 ML VIAL IV SCH ×3 (07:52→21:32)
[2019-02-05 08:06] LABS: Anisocytosis Slight; Basophils # (A) 0.1 k/uL (0-0.2); Basophils % (A) 1 %; Eosinophils # (A) 0.5 k/uL (0-0.7); Eosinophils % (A) 7 %; HCT 24.4 % (39.0-53.0); HGB 7.4 gm/dL (13.0-17.5); Hypochromasia Marked; Lymphocytes # (A) 1.2 k/uL (1.0-4.8); Lymphocytes % (A) 18 %; MCH 25.5 pg (25.0-35.0); MCHC 30.4 g/dL (31.0-37.0); MCV 83.7 fL (80.0-100.0); Mean Platelet Volume 7.6; Microcytosis Slight; Monocytes # (A) 0.9 k/uL (0-1.0); Monocytes % (A) 14 %; Neutrophils # (A) 3.8 k/uL (1.3-7.7); Neutrophils % (A) 56 %; Platelet Count 181 k/uL (150-450); Poikilocytosis Slight; RBC 2.91 m/uL (4.30-5.90); RDW 19.6 % (11.5-15.5); WBC 6.7 k/uL (3.8-10.6)
[2019-02-05] MEDS ORDERED: LIDOCAINE 1% INJ 10MG/ML (20 ML MDV) ONE (09:27)
[2019-02-05] MEDS ORDERED: PROPOFOL 10 MG/ML 20 ML VIAL IV ONE (09:27)
[2019-02-05] MEDS ORDERED: IV FLUID CONTINUATION 800 ML IV ONE (09:33)
--- NOTE | 2019-02-05 09:51 | P.PCN ---
Date of Procedure: 02/05/19 Description of Procedure: BRIEF HISTORY: 44-year-old male with a medical history significant for decompensated alcoholic cirrhosis with ascites and varices who presented to the hospital with complaints of increased abdominal distention. Patient reports that he ran out of the medication in the outpatient setting and was only seen this week and office during which time he was given a refill. However he reports that over the past. Weeks he has had increasing distention discomfort secondary to this abdominal distention. He reports pain secondary to the distention as well as difficulty breathing patient has required paracentesis in the past. He is also had EGD with variceal bleeding. He reports that after presentation to the hospital he had one to 2 episodes with a small amount of bright red blood seen. Denies any melena or change in bowel habits. PROCEDURE PERFORMED: Esophagogastroduodenoscopy with esophageal variceal band ligation. PREOPERATIVE DIAGNOSIS: Hematemesis, anemia of acute blood loss, history of esophageal varices. ESTIMATED BLOOD LOSS: Minimal. IV sedation per anesthesia. PROCEDURE: After informed consent was obtained, the patient was brought into the endoscopy unit. IV sedation was administered by Anesthesia under continuous monitoring. Initially the Olympus GIF-190 video endoscope was inserted into the mouth. Esophagus intubated without any difficulty. It was gradually advanced into the stomach and duodenum and carefully examined. The bulb and the second part of the duodenum appeared normal. The scope at this time was withdrawn to the stomach, adequately insufflated with air, and upon careful examination, mucosa of the antrum, body, cardia and the fundus were significant for portal hypertensive gastropathy of the body and fundus and mild antral gastritis with no evidence of old blood or active bleeding.. The scope was then withdrawn into the esophagus. The GE junction was located at 38 cm from the incisors. The esophagus was significant for varices in the distal esophagus without any high risk stigmata for bleeding or active bleeding noted with esophageal variceal banding with 3 bands placed in a circumferential manner. The patient tolerated the procedure well. IMPRESSION: 1. No active bleeding, or old blood noted on entire exam. 2. Few moderate sized varices in the distal esophagus treated with esophageal band ligation with 3 bands placed. 3. Mild antral gastritis. 4. Portal hypertensive gastropathy. RECOMMENDATIONS: The findings of this examination were discussed with the patient. Okay for clear liquid diet today. Continue Protonix 40 mg twice a day. Continue alcohol abstinence. Continue diuretics as currently ordered.
--- NOTE | 2019-02-05 16:18 | P.PN ---
Subjective This is a 44-year-old white male well-known to the practice from his multiple hospital admissions. He is a known history of esophageal varices, blood loss anemia vomiting, significant alcoholism and cirrhosis. He presented to the emergency room for increased abdominal pain. Seen gastroenterology on February 02. He is complaining of increased abdominal pain and distention. Apparently is been out of his Lasix for several weeks. His abdominal was reduced and at that point. He is scheduled for paracentesis on February 06. Due to his increased pain and symptoms he came emergency room and was admitted for possible paracentesis imminently. Currently complains of some shortness of breath and some difficulty breathing due to the abdominal distention. He complained of a small amount of black stool, but nothing compare d to his previous episodes. He has some sharp chest pain with deep inspiration as well as this time. He denies any significant nausea or vomiting. 2018: Patient continues to be in quite a bit of pain from abdominal distention and ascites. He is status post EGD with banding today. no active bleeding found. He is scheduled for paracentesis tomorrow morning. He denies any significant chest pains, pressures and minimal shortness of breath to the fullness from the ascites. He is tolerating a full liquid diet at this point. Hemoglobin today was down to 7.4. Objective - Vital Signs Vital signs: Vital Signs Temp 98.6 F 02/05/19 10:00 Pulse 88 02/05/19 12:41 Resp 16 02/05/19 12:41 BP 122/73 02/05/19 12:41 Pulse Ox 96 02/05/19 12:41 Intake & Output 02/04/19 02/05/19 02/05/19 18:59 06:59 18:59 Intake Total 100 Output Total 3 300 200 Balance -3 -300 -100 Intake: IV 100 Output: Urine 3 300 200 Other: Voiding Method Toilet # Voids 1 1 - Exam GENERAL: Fatigued, no significant jaundice noted, and in no acute distress. NECK: Normal range of motion, supple without lymphadenopathy or JVD, no thyromeg lucas LUNGS: Breath sounds clear to auscultation bilaterally and equal. No wheezes rales or rhonchi. Somewhat difficult for him to take a deep breath. HEART: Regular rate and rhythm without murmurs, rubs or gallops.S1S2 Normal ABDOMEN: Soft, mildly tender, quite distended. Positive fluid wave, CONSISTENT with significant ascites. EXTREMITIES: Normal range of motion, no pitting or edema. No clubbing or cyanosis. NEUROLOGICAL: Cranial nerves II through XII grossly intact. Normal speech, normal gait. PSYCH: Normal mood, normal affect. SKIN: Warm, Dry, normal turgor, no rashes or lesions noted. - Labs CBC & Chem 7: 02/05/19 06:06 02/05/19 06:06 Labs: Abnormal Lab Results - Last 24 Hours (Table) 02/05/19 02/05/19 Range/Units 06:06 06:06 RBC 2.91 L (4.30-5.90) m/uL Hgb 7.4 L (13.0-17.5) gm/dL Hct 24.4 L (39.0-53.0) % MCHC 30.4 L (31.0-37.0) g/dL RDW 19.6 H (11.5-15.5) % Sodium 136 L (137-145) mmol/L Carbon Dioxide 21 L (22-30) mmol/L Creatinine 0.61 L (0.66-1.25) mg/dL Calcium 8.1 L (8.4-10.2) mg/dL Magnesium 1.5 L (1.6-2.3) mg/dL Total Bilirubin 1.6 H (0.2-1.3) mg/dL Total Protein 6.2 L (6.3-8.2) g/dL Albumin 2.9 L (3.5-5.0) g/dL Assessment and Plan (1) Abdominal pain Current Visit: Yes Status: Acute Code(s): R10.9 - UNSPECIFIED ABDOMINAL PAIN SNOMED Code(s): 03514330 (2) Alcoholic liver disease Current Visit: No Status: Acute Code(s): K70.9 - ALCOHOLIC LIVER DISEASE, UNSPECIFIED SNOMED Code(s): 58251606 (3) Tobacco abuse Current Visit: Yes Status: Acute Code(s): Z72.0 - TOBACCO USE SNOMED Code(s): 756200244 (4) Chronic blood loss anemia Current Visit: Yes Status: Acute Code(s): D50.0 - IRON DEFICIENCY ANEMIA SECONDARY TO BLOOD LOSS (CHRONIC) SNOMED Code(s): 265353775 (5) Ascites Current Visit: Yes Status: Acute Code(s): R18.8 - OTHER ASCITES SNOMED Code(s): 563766663 (6) Cirrhosis Current Visit: Yes Status: Acute Code(s): K74.60 - UNSPECIFIED CIRRHOSIS OF LIVER SNOMED Code(s): 98488214 (7) ETOH abuse Current Visit: Yes Status: Acute Code(s): F10.10 - ALCOHOL ABUSE, UNCOMPLICATED SNOMED Code(s): 82756511 (8) Alcohol intoxication Current Visit: No Status: Acute Code(s): F10.929 - ALCOHOL USE, UNSPECIFIED WITH INTOXICATION, UNSPECIFIED SNOMED Code(s): 50201390 (9) Cirrhosis of liver with ascites Current Visit: No Status: Acute Code(s): K74.60 - UNSPECIFIED CIRRHOSIS OF LIVER; R18.8 - OTHER ASCITES SNOMED Code(s): 18839267 (10) Coagulopathy Current Visit: No Status: Acute Code(s): D68.9 - COAGULATION DEFECT, UNSPECIFIED SNOMED Code(s): 86792784 (11) Esophageal varices Current Visit: No Status: Acute Code(s): I85.00 - ESOPHAGEAL VARICES WITHOUT BLEEDING SNOMED Code(s): 06268854 (12) Portal hypertension Current Visit: No Status: Acute Code(s): K76.6 - PORTAL HYPERTENSION SNOMED Code(s): 16534404 Plan: Continue on Lasix along with his Aldactone. Y daily weights increase his Lasix to 40 mg daily. Any albuterol and Rocephin. We'll repeat labs in a.m. Reevaluate him in the next 24 hours. Further recommendations from GI. Continue to monitor his hemoglobin
[2019-02-05] MEDS: DEXTROSE 5%-0.45% NACL 1,000 ML IV SCH ×2 (21:59→23:42)
[2019-02-06] MEDS: MORPHINE SULFATE 4 MG/ML SYRINGE IVP PRN ×6 (01:38→22:24)
[2019-02-06] MEDS: SPIRONOLACTONE 25 MG TAB PO SCH (07:30)
[2019-02-06 07:32] LABS: ALT 24 U/L (21-72); AST 37 U/L (17-59); African American GFR (CKD) >90 (>60 ml/min/1.73 sqM); Albumin 2.6 g/dL (3.5-5.0); Alkaline Phosphatase 79 U/L (38-126); Anion Gap 6 mmol/L; Blood Urea Nitrogen 9 mg/dL (9-20); Calcium 7.9 mg/dL (8.4-10.2); Carbon Dioxide 24 mmol/L (22-30); Chloride 104 mmol/L (98-107); Glucose 91 mg/dL (74-99); Magnesium 1.4 mg/dL (1.6-2.3); Potassium 3.2 mmol/L (3.5-5.1); Sodium 134 mmol/L (137-145); Total Bilirubin 1.3 mg/dL (0.2-1.3); Total Protein 5.7 g/dL (6.3-8.2)
[2019-02-06] MEDS: FUROSEMIDE 10 MG/ML 4 ML VIAL IV SCH ×3 (07:33→23:34)
[2019-02-06] MEDS: PANTOPRAZOLE 40 MG/10 ML VIAL IVP SCH ×2 (07:33→22:24)
[2019-02-06] MEDS: LACTULOSE 20 GM/30 ML CUP PO SCH ×3 (07:33→22:24)
[2019-02-06] MEDS: MULTIVITAMINS, THERA 1 EACH TAB PO SCH (07:34)
[2019-02-06] MEDS: THIAMINE 100 MG TAB PO SCH ×2 (07:34→16:16)
[2019-02-06] MEDS ORDERED: Potassium Replacement Protocol 1 EACH MISC MISCELLANE PRN (07:35)
[2019-02-06] MEDS ORDERED: Magnesium Replacement Protocol 1 EACH MISC MISCELLANE PRN (07:36)
[2019-02-06 09:46] LABS: Anisocytosis Slight; HCT 21.8 % (39.0-53.0); Hypochromasia Marked; MCH 26.3 pg (25.0-35.0); MCHC 31.8 g/dL (31.0-37.0); MCV 82.7 fL (80.0-100.0); Mean Platelet Volume 8.9; Microcytosis Slight; Platelet Count 204 k/uL (150-450); Poikilocytosis Slight; RBC 2.63 m/uL (4.30-5.90); RDW 19.8 % (11.5-15.5); WBC 5.4 k/uL (3.8-10.6)
[2019-02-06 09:51] LABS: HGB 6.9 gm/dL (13.0-17.5)
[2019-02-06 11:10] LABS: Basophils # (M) 0.11 k/uL (0-0.2); Eosinophils # (M) 0.54 k/uL (0-0.7); Lymphocytes # (M) 0.86 k/uL (1.0-4.8); Monocytes # (M) 0.81 k/uL (0-1.0); Neutrophils % (M) 57 %; Nucleated Red Blood Cells 0 /100 WBC (0-0); Total Cells Counted 100; Toxic Vacuolation Present
[2019-02-06] MEDS: ALBUMIN HUMAN 25% 50 ML in EMPTY BAG 1 BAG IVPB SCH ×4 (12:18→16:10)
--- NOTE | 2019-02-06 14:38 | US ---
EXAMINATION TYPE: US paracentesis abd w/image DATE OF EXAM: 02/06/2019 COMPARISON: NONE HISTORY: Ascites. PROCEDURE: Maximal barrier technique was utilized. The skin overlying a suitable pocket of fluid was localized with ultrasound and the overlying skin was prepped and draped. Ultrasound was utilized with sterile technique. Lidocaine was used for local anesthesia and a skin henry made with a scalpel. Catheter was advanced under direct ultrasound guidance into a suitable pocket of fluid and approximately 6.9 liter s of serous fluid were removed. Catheter was withdrawn and hemostasis achieved. There is no immedia te complication; the patient is discharged in stable condition. IMPRESSION: STATUS POST ULTRASOUND GUIDED PARACENTESIS FOR PALLIATION OF ASCITES. THIS PROCEDURE WA S PERFORMED BY THE UNDERSIGNED.
[2019-02-06] MEDS: DEXTROSE 5%-0.45% NACL 1,000 ML IV SCH (14:53)
--- NOTE | 2019-02-06 17:50 | P.PN ---
Subjective Progress Note Date: 02/06/19 This is a 44-year-old white male well-known to the practice from his multiple hospital admissions. He is a known history of esophageal varices, blood loss anemia vomiting, significant alcoholism and cirrhosis. He presented to the emergency room for increased abdominal pain. Seen gastroenterology on February 02. He is complaining of increased abdominal pain and distention. Apparently is been out of his Lasix for several weeks. His abdominal was reduced and at that point. He is scheduled for paracentesis on February 06. Due to his increased pain and symptoms he came emergency room and was admitted for possible paracentesis imminently. Currently complains of some shortness of breath and some difficulty breathing due to the abdominal distention. He complained of a small amount of black stool, but nothing compared to his previous episodes. He has some sharp chest pain with deep inspiration as well as this time. He denies any significant nausea or vomiting. 2018: Patient continues to be in quite a bit of pain from abdominal distention and ascites. He is status post EGD with banding today. no active bleeding found. He is scheduled for paracentesis tomorrow morning. He denies any significant chest pains, pressures and minimal shortness of breath to the fullness from the ascites. He is tolerating a full liquid diet at this point. Hemoglobin today was down to 7.4. 02/06/2019 status post EGD with banding yesterday, tolerated procedure well. Paracentesis pending. Hemoglobin 6.9, one unit packed RBCs ordered. No nausea vomiting or diarrhea. Tolerating clears. Mild vincent-umbilical pain. Sinus rhythm. Denies chest pain, palpitation. Vital signs stable. Potassium 2.2, magnesium 1.4, receiving supplements per replacement protocols ordered. Objective - Vital Signs Vital signs: Vital Signs Temp 99.2 F 02/06/19 17:28 Pulse 86 02/06/19 17:28 Resp 16 02/06/19 17:28 BP 100/61 02/06/19 17:28 Pulse Ox 96 02/06/19 17:28 Intake & Output 02/05/19 02/06/19 02/06/19 18:59 06:59 18:59 Intake Total 100 937.5 0 Output Total 200 Balance -100 937.5 0 Intake: IV 100 Intake, IV Titration 937.5 Amount Dextrose 5%-0.45% NaCl 1, 937.5 000 ml @ 75 mls/hr IV . [id number] [facility] Rx#:[id number] Blood Product 0 Rc As-3 Unit 0 [id number] Output: Urine 200 Other: Voiding Method Toilet # Voids 1 3 3 - Exam GENERAL: Fatigued, no significant jaundice noted, and in no acute distress. NECK: Normal range of motion, supple without lymphadenopathy or JVD, no thyromegaly LUNGS: Breath sounds clear to auscultation bilaterally and equal. No wheezes rales or rhonchi. Somewhat difficult for him to take a deep breath. HEART: Regular rate and rhythm without murmurs, rubs or gallops.S1S2 Normal ABDOMEN: Soft, mildly tender, quite distended. Positive fluid wave, CONSISTENT with significant ascites. EXTREMITIES: Normal range of motion, no pitting or edema. No clubbing or cyanosis. NEUROLOGICAL: Cranial nerves II through XII grossly intact. Normal speech, normal gait. PSYCH: Normal mood, normal affect. SKIN: Warm, Dry, normal turgor, no rashes or lesions noted. - Labs CBC & Chem 7: 02/06/19 06:48 02/06/19 06:48 Labs: Abnormal Lab Results - Last 24 Hours (Table) 02/03/19 02/05/19 02/06/19 Range/Units 16:47 06:06 06:48 RBC (4.30-5.90) m/uL Hgb (13.0-17.5) gm/dL Hct (39.0-53.0) % RDW (11.5-15.5) % Lymphocytes # (Manual) (1.0-4.8) k/uL Sodium 134 L (137-145) mmol/L Potassium 3.2 L (3.5-5.1) mmol/L Creatinine 0.61 L (0.66-1.25) mg/dL Calcium 7.9 L (8.4-10.2) mg/dL Magnesium 1.4 L (1.6-2.3) mg/dL Ammonia (<30) umol/L Total Protein 5.7 L (6.3-8.2) g/dL Albumin 2.6 L (3.5-5.0) g/dL Prealbumin <5.0 L (18.0-42.0) mg/dL Crossmatch See Detail 02/06/19 02/06/19 Range/Units 06:48 06:48 RBC 2.63 L (4.30-5.90) m/uL Hgb 6.9 L* (13.0-17.5) gm/dL Hct 21.8 L (39.0-53.0) % RDW 19.8 H (11.5-15.5) % Lymphocytes # (Manual) 0.86 L (1.0-4.8) k/uL Sodium (137-145) mmol/L Potassium (3.5-5.1) mmol/L Creatinine (0.66-1.25) mg/dL Calcium (8.4-10.2) mg/dL Magnesium (1.6-2.3) mg/dL Ammonia 39 H (<30) umol/L Total Protein (6.3-8.2) g/dL Albumin (3.5-5.0) g/dL Prealbumin (18.0-42.0) mg/dL Crossmatch Assessment and Plan Assessment: 1) Abdominal pain Current Visit: Yes Status: Acute Code(s): R10.9 - UNSPECIFIED ABDOMINAL PAIN SNOMED Code(s): 71805466 (2) Alcoholic liver disease Current Visit: No Status: Acute Code(s): K70.9 - ALCOHOLIC LIVER DISEASE, UNSPECIFIED SNOMED Code(s): 31740589 (3) Tobacco abuse Current Visit: Yes Status: Acute Code(s): Z72.0 - TOBACCO USE SNOMED Code(s): 453982395 (4) Chronic blood loss anemia Current Visit: Yes Status: Acute Code(s): D50.0 - IRON DEFICIENCY ANEMIA SECONDARY TO BLOOD LOSS (CHRONIC) SNOMED Code(s): 951689052 (5) Ascites Current Visit: Yes Status: Acute Code(s): R18.8 - OTHER ASCITES SNOMED Code(s): 449176352 (6) Cirrhosis Current Visit: Yes Status: Acute Code(s): K74.60 - UNSPECIFIED CIRRHOSIS OF LIVER SNOMED Code(s): 67191095 (7) ETOH abuse Current Visit: Yes Status: Acute Code(s): F10.10 - ALCOHOL ABUSE, UNCOMPLICATED SNOMED Code(s): 31305674 (8) Alcohol intoxication Current Visit: No Status: Acute Code(s): F10.929 - ALCOHOL USE, UNSPECIFIED WITH INTOXICATION, UNSPECIFIED SNOMED Code(s): 59548577 (9) Cirrhosis of liver with ascites Current Visit: No Status: Acute Code(s): K74.60 - UNSPECIFIED CIRRHOSIS OF LIVER; R18.8 - OTHER ASCITES SNOMED Code(s): 97428316 (10) Coagulopathy Current Visit: No Status: Acute Code(s): D68.9 - COAGULATION DEFECT, UNSPECIFIED SNOMED Code(s): 43167849 (11) Esophageal varices Current Visit: No Status: Acute Code(s): I85.00 - ESOPHAGEAL VARICES WITHOUT BLEEDING SNOMED Code(s): 31755194 (12) Portal hypertension Current Visit: No Status: Acute Code(s): K76.6 - PORTAL HYPERTENSION SNOMED Code(s): 63069518 Plan: Continue on current medication regime ,monitoring and symptomatic treatment. Awaiting paracentesis. Maintain Aldactone, Lasix., Nebulized bronchodilators, Rocephin. Close monitoring of hemoglobin and electrolytes with repeat labs ordered for a.m. discharge planning in progress for tomorrow. The impression and plan of care has been dictated as directed. : I performed a history and examination of this patient, discussed the same with the dictator. I agree with the dictator's note ,documented as a scribe. Any additional findings or plans will be noted.
--- NOTE | 2019-02-06 21:56 | P.PN ---
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 Tolerating liquids and asking for diet to be advanced. No bowel movements reported. Objective - Vital Signs Vital signs: Vital Signs Temp 100.7 F H 02/06/19 19:38 Pulse 83 02/06/19 19:38 Resp 16 02/06/19 19:38 BP 106/55 02/06/19 19:38 Pulse Ox 95 02/06/19 19:38 Intake & Output 02/06/19 02/06/19 02/07/19 06:59 18:59 06:59 Intake Total 937.5 0 310 Balance 937.5 0 310 Intake: Intake, IV Titration 937.5 Amount Dextrose 5%-0.45% NaCl 1, 937.5 000 ml @ 75 mls/hr IV . [id number] RADHA Rx#:[id number] Blood Product 0 310 Rc As-3 Unit 0 310 [id number] Other: Voiding Method Toilet # Voids 3 3 - Exam On physical examination, patient appears comfortable in no apparent distress. HEAD: Normocephalic, atraumatic. EYES: Minimal icterus. No conjunctival injection. MOUTH: No lesions, tongue midline. NECK: Trachea midline, no gross abnormalities. CHEST: Clear to auscultation with no wheezing or rhonchi appreciated. HEART: Regular rate and rhythm. ABDOMEN: Soft, distended. Bowel sounds are positive. No organomegaly. No guarding or rigidity. EXTREMITIES: No pedal edema. SKIN: No rashes, no jaundice. NEUROLOGIC: Alert and oriented x3, no asterixis. No focal deficits. - Labs CBC & Chem 7: 02/06/19 06:48 02/06/19 17:56 Labs: Abnormal Lab Results - Last 24 Hours (Table) 02/03/19 02/05/19 02/06/19 Range/Units 16:47 06:06 06:48 RBC (4.30-5.90) m/uL Hgb (13.0-17.5) gm/dL Hct (39.0-53.0) % RDW (11.5-15.5) % Lymphocytes # (Manual) (1.0-4.8) k/uL Sodium 134 L (137-145) mmol/L Potassium 3.2 L (3.5-5.1) mmol/L Creatinine 0.61 L (0.66-1.25) mg/dL Calcium 7.9 L (8.4-10.2) mg/dL Magnesium 1.4 L (1.6-2.3) mg/dL Ammonia (<30) umol/L Total Protein 5.7 L (6.3-8.2) g/dL Albumin 2.6 L (3.5-5.0) g/dL Prealbumin <5.0 L (18.0-42.0) mg/dL Crossmatch See Detail 02/06/19 02/06/19 02/06/19 Range/Units 06:48 06:48 17:56 RBC 2.63 L (4.30-5.90) m/uL Hgb 6.9 L* (13.0-17.5) gm/dL Hct 21.8 L (39.0-53.0) % RDW 19.8 H (11.5-15.5) % Lymphocytes # (Manual) 0.86 L (1.0-4.8) k/uL Sodium (137-145) mmol/L Potassium 3.1 L (3.5-5.1) mmol/L Creatinine (0.66-1.25) mg/dL Calcium (8.4-10.2) mg/dL Magnesium (1.6-2.3) mg/dL Ammonia 39 H (<30) umol/L Total Protein (6.3-8.2) g/dL Albumin (3.5-5.0) g/dL Prealbumin (18.0-42.0) mg/dL Crossmatch Assessment and Plan (1) Decompensated liver disease Narrative/Plan: 44-year-old male with a known history of decompensated alcoholic cirrhosis with prior variceal bleeding, and ascites who presented to the hospital due to increasing abdominal distention after running out of his diuretics in the o utpatient setting. He reports worsening abdominal distention over the last few weeks with associated abdominal pain and difficulty breathing. He did have 2 episodes where he reports vomiting some red blood after presentation and was taken for EGD with variceal banding. Current Visit: No Status: Acute Code(s): K74.69 - OTHER CIRRHOSIS OF LIVER SNOMED Code(s): 04243759 (2) Abdominal pain Current Visit: Yes Status: Acute Code(s): R10.9 - UNSPECIFIED ABDOMINAL PAIN SNOMED Code(s): 14198668 (3) Ascites Current Visit: Yes Status: Acute Code(s): R18.8 - OTHER ASCITES SNOMED Code(s): 737729207 (4) Cirrhosis Current Visit: Yes Status: Acute Code(s): K74.60 - UNSPECIFIED CIRRHOSIS OF LIVER SNOMED Code(s): 45181386 (5) ETOH abuse Current Visit: Yes Status: Acute Code(s): F10.10 - ALCOHOL ABUSE, UNCOMPLICATED SNOMED Code(s): 11291505 (6) Hematemesis Current Visit: Yes Status: Acute Code(s): K92.0 - HEMATEMESIS SNOMED Code(s): 0801342 (7) Chronic anemia Current Visit: No Status: Acute Code(s): D64.9 - ANEMIA, UNSPECIFIED SNOMED Code(s): 088763002 (8) Esophageal varices Current Visit: No Status: Acute Code(s): I85.00 - ESOPHAGEAL VARICES WITHOUT BLEEDING SNOMED Code(s): 92712050 Plan: Supportive care Okay for sodium restricted diet Continue Protonix IV twice daily Continue to monitor hemoglobin and transfuse as needed Lactulose 20 mg 3 times a day titrated to 2-3 bowel movements Ultrasound-guided paracentesis with 6 L removed and albumin given after the procedure Continue Lasix 40 mg IV twice daily and Aldactone 100 mg daily Thank you for allowing us to participate in the care of the patient we will continue to follow
[2019-02-07] MEDS: MORPHINE SULFATE 4 MG/ML SYRINGE IVP PRN ×5 (02:46→20:54)
[2019-02-07 06:57] LABS: Anisocytosis Slight; Hypochromasia Marked; MCH 25.6 pg (25.0-35.0); MCV 82.7 fL (80.0-100.0); Mean Platelet Volume 8.8; Microcytosis Slight; Platelet Count 126 k/uL (150-450); Poikilocytosis Moderate; RBC 2.66 m/uL (4.30-5.90); RDW 19.6 % (11.5-15.5); WBC 5.2 k/uL (3.8-10.6)
[2019-02-07 07:00] LABS: African American GFR (CKD) >90 (>60 ml/min/1.73 sqM); Anion Gap 9 mmol/L; Blood Urea Nitrogen 7 mg/dL (9-20); Calcium 7.9 mg/dL (8.4-10.2); Carbon Dioxide 23 mmol/L (22-30); Chloride 103 mmol/L (98-107); Glucose 108 mg/dL (74-99); Magnesium 1.5 mg/dL (1.6-2.3); Potassium 2.9 mmol/L (3.5-5.1); Sodium 135 mmol/L (137-145)
[2019-02-07] MEDS ORDERED: Potassium Replacement Protocol 1 EACH MISC MISCELLANE PRN (07:02)
[2019-02-07 07:03] LABS: HGB 6.8 gm/dL (13.0-17.5)
[2019-02-07] MEDS: POTASSIUM CHLORIDE ER 20 MEQ TAB.ER PO SCH ×3 (07:27→09:52)
[2019-02-07] MEDS: MULTIVITAMINS, THERA 1 EACH TAB PO SCH (07:28)
[2019-02-07] MEDS: THIAMINE 100 MG TAB PO SCH ×2 (07:28→15:31)
[2019-02-07] MEDS: SPIRONOLACTONE 25 MG TAB PO SCH (07:28)
[2019-02-07] MEDS: PANTOPRAZOLE 40 MG/10 ML VIAL IVP SCH ×2 (07:29→20:52)
[2019-02-07] MEDS: FUROSEMIDE 10 MG/ML 4 ML VIAL IV SCH ×3 (07:31→22:59)
[2019-02-07] MEDS: LACTULOSE 20 GM/30 ML CUP PO SCH ×3 (07:34→21:03)
[2019-02-07] MEDS: DEXTROSE 5%-0.45% NACL 1,000 ML IV SCH ×2 (07:35→15:32)
[2019-02-07] MEDS ORDERED: Magnesium Replacement Protocol 1 EACH MISC MISCELLANE PRN (08:04)
[2019-02-07 08:16] LABS: Eosinophils # (M) 0.05 k/uL (0-0.7); Lymphocytes # (M) 1.04 k/uL (1.0-4.8); Monocytes # (M) 0.36 k/uL (0-1.0); Neutrophils % (M) 72 %; Nucleated Red Blood Cells 0 /100 WBC (0-0); Total Cells Counted 100
[2019-02-07 08:17] LABS: Polychromasia Present
[2019-02-07] MEDS: MAGNESIUM SULFATE-D5W PMX 1 GM in DEXTROSE/WATER 1 100ML.BAG IVPB SCH ×2 (08:37→09:53)
[2019-02-07 13:00] LABS: ALT 20 U/L (21-72); AST 37 U/L (17-59); African American GFR (CKD) >90 (>60 ml/min/1.73 sqM); Albumin 2.9 g/dL (3.5-5.0); Alkaline Phosphatase 69 U/L (38-126); Anion Gap 8 mmol/L; Blood Urea Nitrogen 8 mg/dL (9-20); Carbon Dioxide 24 mmol/L (22-30); Chloride 104 mmol/L (98-107); Glucose 108 mg/dL (74-99); Potassium 3.7 mmol/L (3.5-5.1); Sodium 136 mmol/L (137-145); Total Bilirubin 1.2 mg/dL (0.2-1.3); Total Protein 5.9 g/dL (6.3-8.2)
--- NOTE | 2019-02-07 13:59 | P.PN ---
Subjective Progress Note Date: 02/07/19 This is a 44-year-old white male well-known to the practice from his multiple hospital admissions. He is a known history of esophageal varices, blood loss anemia vomiting, significant alcoholism and cirrhosis. He presented to the emergency room for increased abdominal pain. Seen gastroenterology on February 02. He is complaining of increased abdominal pain and distention. Apparently is been out of his Lasix for several weeks. His abdominal was reduced and at that point. He is scheduled for paracentesis on February 06. Due to his increased pain and symptoms he came emergency room and was admitted for possible paracentesis imminently. Currently complains of some shortness of breath and some difficulty breathing due to the abdominal distention. He complained of a small amount of black stool, but nothing compared to his previous episodes. He has some sharp chest pain with deep inspiration as well as this time. He denies any significant nausea or vomiting. 2018: Patient continues to be in quite a bit of pain from abdominal distention and ascites. He is status post EGD with banding today. no active bleeding found. He is scheduled for paracentesis tomorrow morning. He denies any significant chest pains, pressures and minimal shortness of breath to the fullness from the ascites. He is tolerating a full liquid diet at this point. Hemoglobin today was down to 7.4. 02/06/2019 status post EGD with banding yesterday, tolerated procedure well. Paracentesis pending. Hemoglobin 6.9, one unit packed RBCs ordered. No nausea vomiting or diarrhea. Tolerating clears. Mild vincent-umbilical pain. Sinus rhythm. Denies chest pain, palpitation. Vital signs stable. Potassium 2.2, magnesium 1.4, receiving supplements per replacement protocols ordered. 02/07/2019 status post paracentesis yesterday with 6.9 L serous ascitic fluid drained. Tolerated procedure well. Leaking from paracentesis site. Hemoglobin 6.8, receiving one units packed RBCs. Potassium 2.9, magnesium 1.5, receiving supplements. Sinus rhythm. Vital signs stable. Denies chest pain palpitations or shortness of breath. T-max 100.7, normal WBC. blood cultures obtained. Objective - Vital Signs Vital signs: Vital Signs Temp 98.4 F 02/07/19 07:00 Pulse 82 02/07/19 07:00 Resp 12 02/07/19 07:15 BP 111/63 02/07/19 07:00 Pulse Ox 94 L 02/07/19 07:00 Intake & Output 02/06/19 02/07/19 02/07/19 18:59 06:59 18:59 Intake Total 0 310 400 Output Total 600 Balance 0 -290 400 Intake: Oral 400 Blood Product 0 310 Rc As-3 Unit 0 310 [id number] Output: Urine 600 Other: Voiding Method Toilet Toilet # Voids 3 - Exam GENERAL: Fatigued, no significant jaundice noted, and in no acute distress. NECK: Normal range of motion, supple without lymphadenopathy or JVD, no thyromegaly LUNGS: Breath sounds clear to auscultation bilaterally and equal. No wheezes rales or rhonchi. Somewhat difficult for him to take a deep breath. HEART: Regular rate and rhythm without murmurs, rubs or gallops.S1S2 Normal ABDOMEN: Soft, distended. Minimal tenderness Positive bowel sounds. Status post paracentesis with leaking at paracentesis site. EXTREMITIES: Normal range of motion, no pitting or edema. No clubbing or cyanosis. NEUROLOGICAL: Cranial nerves II through XII grossly intact. Normal speech, normal gait. PSYCH: Normal mood, normal affect. SKIN: Warm, Dry, normal turgor, no rashes or lesions noted. - Labs CBC & Chem 7: 02/07/19 06:11 02/07/19 12:07 Labs: Abnormal Lab Results - Last 24 Hours (Table) 02/03/19 02/06/19 02/07/19 Range/Units 16:47 17:56 06:11 RBC (4.30-5.90) m/uL Hgb (13.0-17.5) gm/dL Hct (39.0-53.0) % RDW (11.5-15.5) % Plt Count (150-450) k/uL Sodium 135 L (137-145) mmol/L Potassium 3.1 L 2.9 L (3.5-5.1) mmol/L BUN 7 L (9-20) mg/dL Creatinine 0.60 L (0.66-1.25) mg/dL Glucose 108 H (74-99) mg/dL Calcium 7.9 L (8.4-10.2) mg/dL Magnesium 1.5 L (1.6-2.3) mg/dL Crossmatch See Detail 02/07/19 Range/Units 06:11 RBC 2.66 L (4.30-5.90) m/uL Hgb 6.8 L* (13.0-17.5) gm/dL Hct 22.0 L (39.0-53.0) % RDW 19.6 H (11.5-15.5) % Plt Count 126 L (150-450) k/uL Sodium (137-145) mmol/L Potassium (3.5-5.1) mmol/L BUN (9-20) mg/dL Creatinine (0.66-1.25) mg/dL Glucose (74-99) mg/dL Calcium (8.4-10.2) mg/dL Magnesium (1.6-2.3) mg/dL Crossmatch Assessment and Plan Assessment: 1) Abdominal pain Current Visit: Yes Status: Acute Code(s): R10.9 - UNSPECIFIED ABDOMINAL PAIN SNOMED Code(s): 68853568 (2) Alcoholic liver disease Current Visit: No Status: Acute Code(s): K70.9 - ALCOHOLIC LIVER DISEASE, UNSPECIFIED SNOMED Code(s): 40697010 (3) Tobacco abuse Current Visit: Yes Status: Acute Code(s): Z72.0 - TOBACCO USE SNOMED Code( s): 041953669 (4) Chronic blood loss anemia Current Visit: Yes Status: Acute Code(s): D50.0 - IRON DEFICIENCY ANEMIA SECONDARY TO BLOOD LOSS (CHRONIC) SNOMED Code(s): 797763625 (5) Ascites, status post paracentesis, palliative Current Visit: Yes Status: Acute Code(s): R18.8 - OTHER ASCITES SNOMED Code(s): 001704472 (6) Cirrhosis Current Visit: Yes Status: Acute Code(s): K74.60 - UNSPECIFIED CIRRHOSIS OF LIVER SNOMED Code(s): 27504693 (7) ETOH abuse Current Visit: Yes Status: Acute Code(s): F10.10 - ALCOHOL ABUSE, UNCOMPLICATED SNOMED Code(s): 60626076 (8) Alcohol intoxication Current Visit: No Status: Acute Code(s): F10.929 - ALCOHOL USE, UNSPECIFIED WITH INTOXICATION, UNSPECIFIED SNOMED Code(s): 12175009 (9) Cirrhosis of liver with ascites Current Visit: No Status: Acute Code(s): K74.60 - UNSPECIFIED CIRRHOSIS OF LIVER; R18.8 - OTHER ASCITES SNOMED Code(s): 38739205 (10) Coagulopathy Current Visit: No Status: Acute Code(s): D68.9 - COAGULATION DEFECT, UNSPECIFIED SNOMED Code(s): 77948026 (11) Esophageal varices Current Visit: No Status: Acute Code(s): I85.00 - ESOPHAGEAL VARICES WITHOUT BLEEDING SNOMED Code(s): 27875344 (12) Portal hypertension Current Visit: No Status: Acute Code(s): K76.6 - PORTAL HYPERTENSION SNOMED Code(s): 03954636 Plan: Continue on current medication regime ,monitoring and symptomatic treatment. Continue Aldactone, Lasix., Nebulized bronchodilators, Rocephin. Blood cultures pending. Close monitoring of hemoglobin and electrolytes with repeat labs ordered for a.m. discharge planning in progress. The impression and plan of care has been dictated as directed. : I performed a history and examination of this patient, discussed the same with the dictator. I agree with the dictator's note ,documented as a scribe. Any additional findings or plans will be noted.
[2019-02-07 14:05] LABS: Anisocytosis Slight; HGB 7.6 gm/dL (13.0-17.5); Hypochromasia Marked; MCH 26.5 pg (25.0-35.0); MCHC 32.8 g/dL (31.0-37.0); MCV 80.9 fL (80.0-100.0); Mean Platelet Volume 10.9; Microcytosis Slight; Poikilocytosis Moderate; RBC 2.85 m/uL (4.30-5.90); RDW 19.8 % (11.5-15.5); WBC 4.7 k/uL (3.8-10.6)
[2019-02-07 14:57] LABS: Platelet Count 72 k/uL (150-450)
--- NOTE | 2019-02-07 22:35 | P.PN ---
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 He is reporting serosanguineous discharge from paracentesis site which has improved since earlier in the morning. Objective - Vital Signs Vital signs: Vital Signs Temp 99 F 02/07/19 20:06 Pulse 80 02/07/19 20:06 Resp 18 02/07/19 20:06 BP 99/56 02/07/19 20:06 Pulse Ox 96 02/07/19 20:06 Intake & Output 02/07/19 02/07/19 02/08/19 06:59 18:59 06:59 Intake Total 310 400 Output Total 600 350 Balance -290 400 -350 Intake: Oral 400 Blood Product 310 Rc As-3 Unit 310 [id number] Output: Urine 600 350 Other: Voiding Method Toilet Toilet Toilet - Exam On physical examination, patient appears comfortable in no apparent distress. HEAD: Normocephalic, atraumatic. EYES: Minimal icterus. No conjunctival injection. MOUTH: No lesions, tongue midline. NECK: Trachea midline, no gross abnormalities. CHEST: Clear to auscultation with no wheezing or rhonchi appreciated. HEART: Regular rate and rhythm. ABDOMEN: Soft, distended. Bowel sounds are positive. No organomegaly. No guarding or rigidity. EXTREMITIES: No pedal edema. SKIN: No rashes, no jaundice. NEUROLOGIC: Alert and oriented x3, no asterixis. No focal deficits. - Labs CBC & Chem 7: 02/07/19 12:07 02/07/19 12:07 Labs: Abnormal Lab Results - Last 24 Hours (Table) 02/07/19 02/07/19 02/07/19 Range/Units 06:11 06:11 12:07 RBC 2.66 L 2.85 L (4.30-5.90) m/uL Hgb 6.8 L* 7.6 L (13.0-17.5) gm/dL Hct 22.0 L 23.0 L (39.0-53.0) % RDW 19.6 H 19.8 H (11.5-15.5) % Plt Count 126 L 72 L (150-450) k/uL Sodium 135 L (137-145) mmol/L Potassium 2.9 L (3.5-5.1) mmol/L BUN 7 L (9-20) mg/dL Creatinine 0.60 L (0.66-1.25) mg/dL Glucose 108 H (74-99) mg/dL Calcium 7.9 L (8.4-10.2) mg/dL Magnesium 1.5 L (1.6-2.3) mg/dL ALT (21-72) U/L Total Protein (6.3-8.2) g/dL Albumin (3.5-5.0) g/dL Crossmatch 02/07/19 02/07/19 Range/Units 12:07 12:42 RBC (4.30-5.90) m/uL Hgb (13.0-17.5) gm/dL Hct (39.0-53.0) % RDW (11.5-15.5) % Plt Count (150-450) k/uL Sodium 136 L (137-145) mmol/L Potassium (3.5-5.1) mmol/L BUN 8 L (9-20) mg/dL Creatinine 0.58 L (0.66-1.25) mg/dL Glucose 108 H (74-99) mg/dL Calcium 8.0 L (8.4-10.2) mg/dL Magnesium (1.6-2.3) mg/dL ALT 20 L (21-72) U/L Total Protein 5.9 L (6.3-8.2) g/dL Albumin 2.9 L (3.5-5.0) g/dL Crossmatch See Detail Assessment and Plan (1) Decompensated liver disease Narrative/Plan: 44-year-old male with a known history of decompensated alcoholic cirrhosis with prior variceal bleeding, and ascites who presented to the hospital due to increasing abdominal distention after running out of his diuretics in the outpatient setting. He reports worsening abdominal distention over the last few weeks with associated abdominal pain and difficulty breathing. He did have 2 episodes where he reports vomiting some red blood after presentation and was taken for EGD with variceal banding. Current Visit: No Status: Acute Code(s): K74.69 - OTHER CIRRHOSIS OF LIVER SNOMED Code(s): 48224326 (2) Abdominal pain Current Visit: Yes Status: Acute Code(s): R10.9 - UNSPECIFIED ABDOMINAL PAIN SNOMED Code(s): 95178674 (3) Ascites Current Visit: Yes Status: Acute Code(s): R18.8 - OTHER ASCITES SNOMED Code(s): 147228491 (4) Cirrhosis Current Visit: Yes Status: Acute Code(s): K74.60 - UNSPECIFIED CIRRHOSIS OF LIVER SNOMED Code(s): 86931465 (5) ETOH abuse Current Visit: Yes Status: Acute Code(s): F10.10 - ALCOHOL ABUSE, UNCOMPLICATED SNOMED Code(s): 79897647 (6) Hematemesis Current Visit: Yes Status: Acute Code(s): K92.0 - HEMATEMESIS SNOMED Code(s): 1399894 (7) Chronic anemia Narrative/Plan: Chronic anemia secondary to underlying cirrhosis, myelosuppressive toxicity from alcohol. Current Visit: No Status: Acute Code(s): D64.9 - ANEMIA, UNSPECIFIED SNOMED Code(s): 101932462 (8) Esophageal varices Current Visit: No Status: Acute Code(s): I85.00 - ESOPHAGEAL VARICES WITHOUT BLEEDING SNOMED Code(s): 41070782 Plan: Supportive care Okay for sodium restricted diet Continue Protonix IV twice daily Continue to monitor hemoglobin and transfuse as needed Lactulose 20 mg 3 times a day titrated to 2-3 bowel movements Ultrasound-guided paracentesis with 6 L removed and albumin given after the procedure Continue Lasix 40 mg IV twice daily and Aldactone 100 mg daily Thank you for allowing us to participate in the care of the patient we will continue to follow
[2019-02-08] MEDS: MORPHINE SULFATE 4 MG/ML SYRINGE IVP PRN ×4 (01:12→12:45)
[2019-02-08] MEDS: DEXTROSE 5%-0.45% NACL 1,000 ML IV SCH (06:03)
[2019-02-08 08:08] LABS: ALT 21 U/L (21-72); AST 30 U/L (17-59); African American GFR (CKD) >90 (>60 ml/min/1.73 sqM); Albumin 2.6 g/dL (3.5-5.0); Alkaline Phosphatase 66 U/L (38-126); Anion Gap 6 mmol/L; Blood Urea Nitrogen 8 mg/dL (9-20); Calcium 7.6 mg/dL (8.4-10.2); Carbon Dioxide 24 mmol/L (22-30); Chloride 104 mmol/L (98-107); Glucose 99 mg/dL (74-99); Potassium 3.6 mmol/L (3.5-5.1); Sodium 134 mmol/L (137-145); Total Bilirubin 0.9 mg/dL (0.2-1.3); Total Protein 5.5 g/dL (6.3-8.2)
[2019-02-08 08:17] LABS: Anisocytosis Slight; HGB 7.2 gm/dL (13.0-17.5); Hypochromasia Marked; MCH 26.1 pg (25.0-35.0); MCHC 31.4 g/dL (31.0-37.0); MCV 83.1 fL (80.0-100.0); Mean Platelet Volume 7.9; Microcytosis Slight; Platelet Count 101 k/uL (150-450); Poikilocytosis Moderate; RBC 2.76 m/uL (4.30-5.90); RDW 19.8 % (11.5-15.5); WBC 5.3 k/uL (3.8-10.6)
[2019-02-08] MEDS: MULTIVITAMINS, THERA 1 EACH TAB PO SCH (08:21)
[2019-02-08] MEDS: PANTOPRAZOLE 40 MG/10 ML VIAL IVP SCH (08:21)
[2019-02-08] MEDS: SPIRONOLACTONE 25 MG TAB PO SCH (08:21)
[2019-02-08] MEDS: THIAMINE 100 MG TAB PO SCH (08:21)
[2019-02-08] MEDS: LACTULOSE 20 GM/30 ML CUP PO SCH (08:22)
[2019-02-08] MEDS: FUROSEMIDE 10 MG/ML 4 ML VIAL IV SCH (08:22)
[2019-02-08 09:47] VITALS: BP 106/57; PULSE 86; RESP 12; TEMP 98.9
--- NOTE | 2019-02-08 15:05 | P.DS ---
Providers Date of admission: 02/03/19 18:42 Expected date of discharge: 02/08/19 Attending physician: James Meza Consults: 02/03/19 18:42 Consult Physician Routine Consulting Provider: Epifanio Harrington Consult Reason/Comments: gib Do you want consulting provider notified?: Yes Primary care physician: [facility] Course: Final Diagnoses: 1) Abdominal pain Current Visit: Yes Status: Acute Code(s): R10.9 - UNSPECIFIED ABDOMINAL PAIN SNOMED Code(s): 20781666 (2) Alcoholic liver disease Current Visit: No Status: Acute Code(s): K70.9 - ALCOHOLIC LIVER DISEASE, UNSPECIFIED SNOMED Code(s): 06878428 (3) Tobacco abuse Current Visit: Yes Status: Acute Code(s): Z72.0 - TOBACCO USE SNOMED Code(s): 103339251 (4) Chronic blood loss anemia Current Visit: Yes Status: Acute Code(s): D50.0 - IRON DEFICIENCY ANEMIA SECONDARY TO BLOOD LOSS (CHRONIC) SNOMED Code(s): 847588583 (5) Ascites, status post paracentesis, palliative Current Visit: Yes Status: Acute Code(s): R18.8 - OTHER ASCITES SNOMED Code(s): 545339579 (6) Cirrhosis Current Visit: Yes Status: Acute Code(s): K74.60 - UNSPECIFIED CIRRHOSIS OF LIVER SNOMED Code(s): 25557714 (7) ETOH abuse Current Visit: Yes Status: Acute Code(s): F10.10 - ALCOHOL ABUSE, UNCOMPLICATED SNOMED Code(s): 14329614 (8) Alcohol intoxication Current Visit: No Status: Acute Code(s): F10.929 - ALCOHOL USE, UNSPECIFIED WITH INTOXICATION, UNSPECIFIED SNOMED Code(s): 47345815 (9) Cirrhosis of liver with ascites Current Visit: No Status: Acute Code(s): K74.60 - UNSPECIFIED CIRRHOSIS OF LIVER; R18.8 - OTHER ASCITES SNOMED Code(s): 57956074 (10) Coagulopathy Current Visit: No Status: Acute Code(s): D68.9 - COAGULATION DEFECT, UNSPECIFIED SNOMED Code(s): 64066245 (11) Esophageal varices Current Visit: No Status: Acute Code(s): I85.00 - ESOPHAGEAL VARICES WITHOUT BLEEDING SNOMED Code(s): 99992963 (12) Portal hypertension Current Visit: No Status: Acute Code(s): K76.6 - PORTAL HYPERTENSION SNOMED Code(s): 31781422 This is a 44-year-old white male well-known to the practice from his multiple hospital admissions. He is a known history of esophageal varices, blood loss anemia vomiting, significant alcoholism and cirrhosis. He presented to the emergency room for increased abdominal pain. Seen gastroenterology on February 02. He is complaining of increased abdominal pain and distention. Apparently is been out of his Lasix for several weeks. His abdominal was reduced and at that point. He is scheduled for paracentesis on February 06. Due to his increased pain and symptoms he came emergency room and was admitted for possible paracentesis imminently. Currently complains of some shortness of breath and some difficulty breathing due to the abdominal distention. He complained of a small amount of black stool, but nothing compared to his previous episodes. He has some sharp chest pain with deep inspiration as well as this time. He denies any significant nausea or vomiting. 2018: Patient continues to be in quite a bit of pain from abdominal distention and ascites. He is status post EGD with banding today. no active bleeding found. He is scheduled for paracentesis tomorrow morning. He denies any significant chest pains, pressures and minimal shortness of breath to the fullness from the ascites. He is tolerating a full liquid diet at this point. Hemoglobin today was down to 7.4. 02/06/2019 status post EGD with banding yesterday, tolerated procedure well. Paracentesis pending. Hemoglobin 6.9, one unit packed RBCs ordered. No nausea vomiting or diarrhea. Tolerating clears. Mild vincent-umbilical pain. Sinus rhythm. Denies chest pain, palpitation. Vital signs stable. Potassium 2.2, magnesium 1.4, receiving supplements per replacement protocols ordered. 02/07/2019 status post paracentesis yesterday with 6.9 L serous ascitic fluid drained. Tolerated procedure well. Leaking from paracentesis site. Hemoglobin 6.8, receiving one units packed RBCs. Potassium 2.9, magnesium 1.5, receiving supplements. Sinus rhythm. Vital signs stable. Denies chest pain palpitations or shortness of breath. T-max 100.7, normal WBC. blood cultures obtained. Hemoglobin stable 7.2, no further bleeding reported. Paracentesis site minimal drainage. Vital signs stable. Significant clinical improvement. Cleared by GI for discharge. Afebrile. Patient is being discharged home in stable condition with guarded prognosis. Exam GENERAL: Alert and oriented 3, no acute distress. LUNGS: Breath sounds clear to auscultation bilaterally and equal. No wheezes rales or rhonchi. HEART: Regular rate and rhythm without murmurs, rubs or gallops.S1S2 Normal ABDOMEN: Softer, distended. Nontender Positive bowel sounds. Status post paracentesis with minimal leaking at paracentesis site. NEUROLOGICAL: Cranial nerves II through XII grossly intact. The impression and plan of care has been dictated as directed. : I performed a history and examination of this patient, discussed the same with the dictator. I agree with the dictator's note ,documented as a scribe. Any additional findings or plans will be noted. Patient Condition at Discharge: Stable Plan - Discharge Summary Discharge Rx Participant: Yes New Discharge Prescriptions: Continue Folic Acid 1 mg PO DAILY@1200 Thiamine [Vitamin B-1] 100 mg PO DAILY #30 tablet Spironolactone [Aldactone] 100 mg PO DAILY #30 tab Propranolol [Inderal] 10 mg PO TID #90 tab Pantoprazole Sodium [Protonix] 40 mg PO DAILY #30 tablet. Multivshira Thera [Multivitamin (formulary)] 1 tab PO DAILY@1200 Lactulose [Cephulac] 20 gm PO TID #2700 ml HYDROcodone/APAP 7.5-325MG [[place] 7.5-325] 1 tab PO Q4-6H PRN #10 tab PRN Reason: Pain Potassium Chloride ER [K-Dur 20] 20 meq PO DAILY #10 tab Magnesium Oxide [Mag-Ox] 400 mg PO DAILY #30 tablet Furosemide [Lasix] 40 mg PO DAILY Discharge Medication List Folic Acid 1 mg PO DAILY@1200 09/01/17 [History] Thiamine [Vitamin B-1] 100 mg PO DAILY #30 tablet 09/03/17 [Rx] Pantoprazole Sodium [Protonix] 40 mg PO DAILY #30 tablet. 12/06/18 [Rx] Propranolol [Inderal] 10 mg PO TID #90 tab 12/06/18 [Rx] Spironolactone [Aldactone] 100 mg PO DAILY #30 tab 12/06/18 [Rx] Multivitamins, Thera [Multivitamin (formulary)] 1 tab PO DAILY@1200 12/14/18 [History] HYDROcodone/APAP 7.5-325MG [[place] 7.5-325] 1 tab PO Q4-6H PRN #10 tab 01/22/19 [Rx] Lactulose [Cephulac] 20 gm PO TID #2700 ml 01/22/19 [Rx] Magnesium Oxide [Mag-Ox] 400 mg PO DAILY #30 tablet 01/22/19 [Rx] Potassium Chloride ER [K-Dur 20] 20 meq PO DAILY #10 tab 01/22/19 [Rx] Furosemide [Lasix] 40 mg PO DAILY 02/03/19 [History] Follow up Appointment(s)/Referral(s): James Meza Jr, DO [Primary Care Provider] - 02/14/19 11:00 am Nakia Obregon NPC [Nurse Practitioner] - 02/23/19 8:30 am (Office has asked for you to please arrive at 8:15) Ambulatory/Diagnostic Orders: Complete Blood Count w/diff [LAB.AMB] Time Frame: 3 Days, Location: None Selected Patient Instructions/Handouts: Gastrointestinal Bleeding (DC), Ascites (DC), Anemia (DC), Hematemesis (GEN) Activity/Diet/Wound Care/Special Instructions: Pending final DC recommendations/sclerae from GI. Diet low-sodium 2000 mg per day
[2019-02-08] MEDS ORDERED: PANTOPRAZOLE 40 MG TABLET PO SCH (21:00)
== END 2019-02-08 13:50 | disposition home or self-care (01) | DRG 432 ==
LOC: EC 16:13 → 4SSUR 18:42
PROVIDERS: ADMIT Family Medicine; ATTEND Family Medicine
PROC: 06L38CZ Occlusion of Esophageal Vein with Extraluminal Device, Via Natural or Artificial Opening Endoscopic (ICD-10-PCS; principal; 2019-02-05 09:31)
PROC: 0W9G3ZZ Drainage of Peritoneal Cavity, Percutaneous Approach (ICD-10-PCS; 2019-02-06)
DX: K70.31 Alcoholic cirrhosis of liver with ascites (principal); I85.11 Secondary esophageal varices with bleeding; D62 Acute posthemorrhagic anemia; D68.9 Coagulation defect, unspecified; K76.6 Portal hypertension; F10.229 Alcohol dependence with intoxication, unspecified; E86.0 Dehydration; F43.10 Post-traumatic stress disorder, unspecified; J45.909 Unspecified asthma, uncomplicated; K29.70 Gastritis, unspecified, without bleeding; K31.89 Other diseases of stomach and duodenum; Z79.899 Other long term (current) drug therapy; Z82.49 Family history of ischemic heart disease and other diseases of the circulatory system; Z87.442 Personal history of urinary calculi; Z87.11 Personal history of peptic ulcer disease; Z86.14 Personal history of Methicillin resistant Staphylococcus aureus infection
CPT/HCPCS: 36415; 43255; 49083; 71046; 80048; 80053; 82140; 83690; 83735; 84132; 84134; 84484; 85025; 85027; 85610; 85730; 86850; 86900; 86901; 86920; 87040; 94640; 94760; 96361; 96365; 96375; 99285

== ENCOUNTER 2019-04-20 12:18 | Day surgery (SDC) | payer OTHER ==
[2019-04-18 17:15] VITALS: BMI 25.6
[~2019-04-20 12:18] MED LIST changes: -HYDROcodone/APAP 5-325MG 1 EACH TAB PO ONE; -HYDROmorphone 1 MG/ML 1 ML SYRINGE IVP ONE; -LIDOCAINE 1% 20 ML VIAL (10MG/ML) FOR IV START INTRADERMA PRN; -LIDOCAINE 1% INJ 10MG/ML (20 ML MDV) ONE; -PROPOFOL 10 MG/ML 20 ML VIAL IV ONE
[2019-04-20 13:07] VITALS: TEMP 98.5
[2019-04-20] MEDS ORDERED: LIDOCAINE 1% 20 ML VIAL (10MG/ML) FOR IV START INTRADERMA ONE (13:14)
[2019-04-20] MEDS ORDERED: PROPOFOL 10 MG/ML 20 ML VIAL IV ONE (13:25)
[2019-04-20] MEDS ORDERED: MIDAZOLAM 2 MG/2 ML VIAL ONE (13:25)
[2019-04-20] MEDS ORDERED: LIDOCAINE 1% INJ 10MG/ML (20 ML MDV) ONE (13:25)
[2019-04-20] MEDS ORDERED: fentaNYL (PF) 50 MCG/ML 2 ML AMP ONE (13:25)
--- NOTE | 2019-04-20 13:57 | P.PCN ---
Date of Procedure: 04/20/19 Description of Procedure: BRIEF HISTORY: 44-year-old male with a medical history significant for decompensated alcoholic cirrhosis with ascites and varices who presents for outpatient EGD for esophageal variceal band ligation. Last EGD performed on 01/2019 significant for few moderate sized esophageal varices with 3 bands placed as well as mild antral gastritis and portal hypertensive gastropathy. PROCEDURE PERFORMED: Esophagogastroduodenoscopy with esophageal variceal band ligation. PREOPERATIVE DIAGNOSIS: Esophageal varices, decompensated alcoholic cirrhosis with ascites and varices. ESTIMATED BLOOD LOSS: Minimal. IV sedation per anesthesia. PROCEDURE: After informed consent was obtained, the patient was brought into the endoscopy unit. IV sedation was administered by Anesthesia under continuous monitoring. Initially the Olympus GIF-190 video endoscope was inserted into the mouth. Esophagus intubated without any difficulty. It was gradually advanced into the stomach and duodenum and carefully examined. The bulb and the second part of the duodenum appeared normal. The scope at this time was withdrawn to the stomach, adequately insufflated with air, and upon careful examination, mucosa of the antrum, body, cardia and the fundus were significant for portal hypertensive gastropathy of the body and fundus and mild antral gastritis with no evidence of old blood or active bleeding.. The scope was then withdrawn into the esophagus. The GE junction was located at 38 cm from the incisors. The esophagus was significant for varices in the distal esophagus without any high risk stigmata for bleeding or active bleeding noted. Esophageal variceal banding with 6 bands placed in a circumferential manner. The patient tolerated the procedure well. IMPRESSION: 1. Portal hypertensive gastropathy.. 2. Few moderate sized varices in the distal and mid esophagus treated with esophageal band ligation with 6 bands placed. 3. Mild antral gastritis. RECOMMENDATIONS: The findings of this examination were discussed with the patient and his father. Okay for full liquid diet today. Okay to advance diet tomorrow. Okay to continue medications. Continue alcohol abstinence. Follow-up with gastroenterology as previously scheduled.
[2019-04-20] MEDS ORDERED: HYDROmorphone 1 MG/ML 1 ML SYRINGE IVP ONE (14:07)
[2019-04-20 14:33] VITALS: RESP 18
[2019-04-20 15:06] VITALS: BP 132/70; PULSE 76
== END 2019-04-20 15:38 | disposition home or self-care (01) ==
LOC: ORWHC2ENDO 12:18
PROVIDERS: ATTEND Internal Medicine
DX: K70.31 Alcoholic cirrhosis of liver with ascites (principal); I85.10 Secondary esophageal varices without bleeding; K76.6 Portal hypertension; K31.89 Other diseases of stomach and duodenum; K29.70 Gastritis, unspecified, without bleeding; K85.90 Acute pancreatitis without necrosis or infection, unspecified; F17.210 Nicotine dependence, cigarettes, uncomplicated; F10.21 Alcohol dependence, in remission; Z79.899 Other long term (current) drug therapy; Z90.49 Acquired absence of other specified parts of digestive tract; Z87.442 Personal history of urinary calculi
CPT/HCPCS: 43244; J2250; J2001; J3010; J1170; J2704

== ENCOUNTER 2019-05-29 23:25 | Emergency (ER) | payer OTHER ==
[2019-05-29 23:35] VITALS: TEMP 98.5
[2019-05-29] MEDS ORDERED: SODIUM CHLORIDE 0.9% 1,000 ML IV STA (23:38)
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
--- NOTE | 2019-05-30 00:13 | CT ---
EXAMINATION TYPE: CT brain chelsy wo con DATE OF EXAM: 05/29/2019 COMPARISON: CT brain 11/28/2017 HISTORY: AMS CT DLP: 1348.70 mGycm Automated exposure control for dose reduction was used. Ventricles have normal size. There is no mass effect nor midline shift. There is no sign of intracran ial hemorrhage. There is some cerebral atrophy for the patient's age. Calvarium is intact. The skull base is intact. Cervical vertebra have normal alignment. There is some narrowing and spurring at C4-5. Posterior quileute ents are intact. Facet joints are intact. There is no evidence of a fracture. IMPRESSION: Mild spondylosis at C4-5. No fracture. Cerebral atrophy. No acute intracranial abnormality. Brain unchanged compared to last exam.
[2019-05-30 00:19] LABS: Anisocytosis Slight; Basophils # (A) 0.1 k/uL (0-0.2); Basophils % (A) 2 %; Eosinophils # (A) 0.3 k/uL (0-0.7); Eosinophils % (A) 4 %; HCT 36.7 % (39.0-53.0); HGB 11.7 gm/dL (13.0-17.5); Lymphocytes # (A) 0.9 k/uL (1.0-4.8); Lymphocytes % (A) 13 %; MCHC 31.8 g/dL (31.0-37.0); MCV 97.7 fL (80.0-100.0); Macrocytosis Slight; Mean Platelet Volume 8.8; Monocytes # (A) 0.4 k/uL (0-1.0); Monocytes % (A) 5 %; Neutrophils # (A) 5.1 k/uL (1.3-7.7); Neutrophils % (A) 73 %; Platelet Count 101 k/uL (150-450); RBC 3.76 m/uL (4.30-5.90); RDW 18.2 % (11.5-15.5); WBC 7.1 k/uL (3.8-10.6)
[2019-05-30 00:35] LABS: ALT 26 U/L (4-49); AST 110 U/L (17-59); African American GFR (CKD) >90 (>60 ml/min/1.73 sqM); Alkaline Phosphatase 144 U/L (38-126); Anion Gap 12 mmol/L; Blood Urea Nitrogen 12 mg/dL (9-20); Calcium 8.6 mg/dL (8.4-10.2); Carbon Dioxide 18 mmol/L (22-30); Chloride 112 mmol/L (98-107); Glucose 103 mg/dL (74-99); Magnesium 1.7 mg/dL (1.6-2.3); Non-African American GFR(CKD) >90 (>60 ml/min/1.73 sqM); Phosphorus 4.1 mg/dL (2.5-4.5); Potassium 4.5 mmol/L (3.5-5.1); Sodium 142 mmol/L (137-145); Total Bilirubin 1.8 mg/dL (0.2-1.3); Total Protein 8.2 g/dL (6.3-8.2)
[2019-05-30 01:11] LABS: Alcohol 278 mg/dL
[2019-05-30] MEDS ORDERED: LACTULOSE 20 GM/30 ML CUP PO ONE (01:25)
[2019-05-30 01:54] VITALS: BP 125/69; PULSE 68; RESP 18
== END 2019-05-30 01:51 | disposition home or self-care (01) ==
LOC: EC 23:25
DX: S09.90XA Unspecified injury of head, initial encounter (principal); F10.129 Alcohol abuse with intoxication, unspecified; J45.909 Unspecified asthma, uncomplicated; F17.200 Nicotine dependence, unspecified, uncomplicated; Z79.899 Other long term (current) drug therapy; Z86.14 Personal history of Methicillin resistant Staphylococcus aureus infection; Y90.8 Blood alcohol level of 240 mg/100 ml or more; Y04.8XXA Assault by other bodily force, initial encounter
CPT/HCPCS: 99284; 96360; 36415; 80053; 82140; 83690; 83735; 84100; 85025; 72125; 70450; G0480; 80320

== ENCOUNTER 2019-07-05 13:34 | Observation (INO) | payer OTHER ==
[2019-07-05] MEDS ORDERED: PANTOPRAZOLE 40 MG/10 ML VIAL IVP STA (14:07)
[2019-07-05] MEDS ORDERED: LORazepam 2 MG/ML INJ IV PRN ×2 (14:20)
[2019-07-05] MEDS ORDERED: THIAMINE 100 MG/ML 2 ML VIAL IM STA (14:20)
[2019-07-05] MEDS ORDERED: SODIUM CHLORIDE 0.9% 1,000 ML IV ONE (14:22)
--- NOTE | 2019-07-05 14:27 | ED ---
Abdominal Pain HPI - General Chief Complaint: Abdominal Pain Stated Complaint: Dr Meza sent patient,abdom pain Time Seen by Provider: 07/05/19 14:03 Source: patient Mode of arrival: ambulatory Limitations: no limitations - History of Present Illness Initial Comments: 44-year-old male with history of daily ETOH abuse, cirrhosis of the liver, Ascites with previous paracentesis, previous GI bleed presenting today for chief complaint dark stools, abdominal pain and distention. Patient states the past week he has had dark stools abdominal pain and increasing abdominal distention. Patient states he has had previous paracentesis to drain the fluid. Patient denies any fevers she states that down pain is diffuse and pressure like. Patient states that he has had one episode of bloody vomit a few days prior denies any additional. Patient denies any bright red blood per rectum. Patient states he has felt lightheaded at times. Patient states he is currently drinking heavily daily. Patient states that at times he does feel shaky as though he is withdrawing if he does not drink and was provided Valium by his primary care provider for withdrawal symptoms, he states he felt lightheaded after this RX. Patient denies chest pain, SOB, seizures, headache. ROS (-). - Related Data Home Medications Medication Instructions Recorded Confirmed Folic Acid 1 mg PO 1200 09/01/17 04/20/19 Multivitamins, Thera [Multivitamin 1 tab PO 1200 12/14/18 04/18/19 (formulary)] Furosemide [Lasix] 40 mg PO DAILY 02/03/19 04/18/19 Albuterol Inhaler [Ventolin Hfa 1 - 2 puff INHALATION DIRECTED 04/18/19 04/20/19 Inhaler] PRN Previous Rx's Medication Instructions Recorded Thiamine [Vitamin B-1] 100 mg PO DAILY #30 tablet 09/03/17 Spironolactone [Aldactone] 100 mg PO DAILY #30 tab 12/06/18 HYDROcodone/APAP 7.5-325MG [[place] 1 tab PO Q4-6H PRN #10 tab 01/22/19 7.5-325] Lactulose [Cephulac] 20 gm PO TID #2700 ml 01/22/19 Magnesium Oxide [Mag-Ox] 400 mg PO DAILY #30 tablet 01/22/19 Potassium Chloride ER [K-Dur 20] 20 meq PO DAILY #10 tab 01/22/19 Allergies Allergy/AdvReac Type Severity Reaction Status Date / Time No Known Allergies Allergy Verified 07/05/19 13:42 Review of Systems ROS Statement: Those systems with pertinent positive or pertinent negative responses have been documented in the HPI. ROS Other: All systems not noted in ROS Statement are negative. Past Medical History Past Medical History: Asthma, GI Bleed, Liver Disease, Osteoarthritis (OA), Pneumonia, Skin Disorder Additional Past Medical History / Comment(s): liver cirrhosis, abdominal ascites, pancreatitis, past multiple gallstones, nephrolithiasis, chronic anemia, esophageal varices, hx urinating blood and kidneys stone, bleeding ulcers, hernia, psoriasis History of Any Multi-Drug Resistant Organisms: MRSA Date of last positivie culture/infection: 12/09/13 MDRO Source:: Right first finger Past Surgical History: Appendectomy, Cholecystectomy, Hernia Repair, Orthopedic Surgery Additional Past Surgical History / Comment(s): EGD/colonoscopy, paracentesis, right hand tendon repair, right knee arthroscopy, cystoscopy for kidney stone removal, right hand ring finger surgery. surgery for umbilical hernia, Past Anesthesia/Blood Transfusion Reactions: Previous Problems w/ Anesthesia Additional Past Anesthesia/Blood Transfusion Reaction / Comment(s): Woke up during scope procedure. Past Psychological History: PTSD Smoking Status: Current every day smoker Past Alcohol Use History: Abuse, Daily, Heavy Past Drug Use History: None Reported - Past Family History Mother Family Medical History: No Reported History Father Additional Family Medical History / Comment(s): Prostate issues grandpa. Brain aneurysm father. General Exam - General Exam Comments Initial Comments: General: The patient is awake and alert, in no distress Eye: +3 mm pupils are equal, round and reactive to light, extra-ocular movements are intact. No nystagmus. There is normal conjunctiva bilaterally. No signs of icterus. Ears, nose, mouth and throat: There are moist mucous membranes and no oral lesions. Neck: The neck is supple, there is no tenderness or JVD. Cardiovascular: There is a regular rate and rhythm. No murmur, rub or gallop is appreciated. Respiratory: Lungs are clear to auscultation, respirations are non-labored, breath sounds are equal. No wheezes, stridor, rales, or rhonchi. Gastrointestinal: Abdomen, distended, diffusely abdomen without masses or organomegaly noted. There is no rebound or guarding present. Rectal: skin color, nonthrombosed external hemorrhoids noted, no bright red blood per rectum, minimal stool in rectal vault, no dark black stool Musculoskeletal: Normal ROM, no tenderness. Strength 5/5. Sensation intact. Radial pulses equal bilaterally 2+. Neurological: A&O x 3. CN II-XII intact grossly, There are no obvious motor or sensory deficits. Coordination appears grossly intact. Speech is normal. Skin: Skin is warm and dry and no rashes or lesions are noted. No LE edema. Psychiatric: Cooperative, appropriate mood & affect, normal judgment. Limitations: no limitations Course Vital Signs 07/05/19 13:37 Temperature 98.7 F Pulse Rate 98 Respiratory 22 Rate Blood Pressure 139/84 O2 Sat by Pulse 96 Oximetry Medical Decision Making - Medical Decision Making 44-year-old male presenting for possible GI bleed history of esophageal varices previous GI bleed. Patient is found has platelets of 65, hemoglobin stable in comparison with most recent previous. Patient has no bright red blood per rectum no active emesis. Patient has INR 1.2 elevated, patient BP stable, he appears well, there is obvious ascites, patient has no history of fevers no leukocytosis. Lipase and AST elevated. CT revealed chronic findings of liver, significant amount of ascites. Patient will be admitted on tele for GI bleed and GI consultation. Patient was given octreotide, rocephin in the ER, IVF and pain medications. Dr. Agrawal evaluated patient in person, he is agreeable to admission spoke with admitting providers. - Lab Data Result diagrams: 07/05/19 14:38 07/05/19 14:36 Lab Results 07/05/19 07/05/19 07/05/19 Range/Units 14:36 14:36 14:36 WBC (3.8-10.6) k/uL RBC (4.30-5.90) m/uL Hgb (13.0-17.5) gm/dL Hct (39.0-53.0) % MCV (80.0-100.0) fL MCH (25.0-35.0) pg MCHC (31.0-37.0) g/dL RDW (11.5-15.5) % Plt Count (150-450) k/uL Neutrophils % (Manual) % Lymphocytes % (Manual) % Monocytes % (Manual) % Neutrophils # (Manual) (1.3-7.7) k/uL Lymphocytes # (Manual) (1.0-4.8) k/uL Monocytes # (Manual) (0-1.0) k/uL Nucleated RBCs (0-0) /100 WBC Manual Slide Review Polychromasia Hypochromasia Anisocytosis (manual) Macrocytosis PT 12.1 H (9.0-12.0) sec INR 1.2 H (<1.2) APTT 23.5 (22.0-30.0) sec Sodium 143 (137-145) mmol/L Potassium 4.5 (3.5-5.1) mmol/L Chloride 113 H (98-107) mmol/L Carbon Dioxide 20 L (22-30) mmol/L Anion Gap 10 mmol/L BUN 7 L (9-20) mg/dL Creatinine 0.46 L (0.66-1.25) mg/dL Est GFR (CKD-EPI)AfAm >90 (>60 ml/min/1.73 sqM) Est GFR (CKD-EPI)NonAf >90 (>60 ml/min/1.73 sqM) Glucose 126 H (74-99) mg/dL Plasma Lactic Acid [place] (0.7-2.0) mmol/L Calcium 8.6 (8.4-10.2) mg/dL Phosphorus 4.5 (2.5-4.5) mg/dL Magnesium 1.8 (1.6-2.3) mg/dL Total Bilirubin 1.7 H (0.2-1.3) mg/dL AST 266 H (17-59) U/L ALT 49 (4-49) U/L Alkaline Phosphatase 231 H (38-126) U/L Troponin I <0.012 (0.000-0.034) ng/mL Total Protein 8.0 (6.3-8.2) g/dL Albumin 3.6 (3.5-5.0) g/dL Amylase 66 (30-110) U/L Lipase 567 H (23-300) U/L Urine Color Urine Appearance (Clear) Urine pH (5.0-8.0) Ur Specific [place] (1.001-1.035) Urine Protein (Negative) Urine Glucose (UA) (Negative) Urine Ketones (Negative) Urine Blood (Negative) Urine Nitrite (Negative) Urine Bilirubin (Negative) Urine Urobilinogen (<2.0) mg/dL Ur Leukocyte Esterase (Negative) Urine RBC (0-5) /hpf Urine WBC (0-5) /hpf Serum Alcohol 266 H* mg/dL 07/05/19 07/05/19 07/05/19 Range/Units 14:38 14:45 15:28 WBC 4.1 (3.8-10.6) k/uL RBC 3.73 L (4.30-5.90) m/uL Hgb 11.7 L (13.0-17.5) gm/dL Hct 37.0 L (39.0-53.0) % MCV 99.2 (80.0-100.0) fL MCH 31.3 (25.0-35.0) pg MCHC 31.6 (31.0-37.0) g/dL RDW 15.6 H (11.5-15.5) % Plt Count 65 L (150-450) k/uL Neutrophils % (Manual) 76 % Lymphocytes % (Manual) 18 % Monocytes % (Manual) 6 % Neutrophils # (Manual) 3.12 (1.3-7.7) k/uL Lymphocytes # (Manual) 0.74 L (1.0-4.8) k/uL Monocytes # (Manual) 0.25 (0-1.0) k/uL Nucleated RBCs 0 (0-0) /100 WBC Manual Slide Review Performed Polychromasia Present Hypochromasia Slight Anisocytosis (manual) Present Macrocytosis Slight PT (9.0-12.0) sec INR (<1.2) APTT (22.0-30.0) sec Sodium (137-145) mmol/L Potassium (3.5-5.1) mmol/L Chloride (98-107) mmol/L Carbon Dioxide (22-30) mmol/L Anion Gap mmol/L BUN (9-20) mg/dL Creatinine (0.66-1.25) mg/dL Est GFR (CKD-EPI)AfAm (>60 ml/min/1.73 sqM) Est GFR (CKD-EPI)NonAf (>60 ml/min/1.73 sqM) Glucose (74-99) mg/dL Plasma Lactic Acid [place] 1.4 (0.7-2.0) mmol/L Calcium (8.4-10.2) mg/dL Phosphorus (2.5-4.5) mg/dL Magnesium (1.6-2.3) mg/dL Total Bilirubin (0.2-1.3) mg/dL AST (17-59) U/L ALT (4-49) U/L Alkaline Phosphatase (38-126) U/L Troponin I (0.000-0.034) ng/mL Total Protein (6.3-8.2) g/dL Albumin (3.5-5.0) g/dL Amylase (30-110) U/L Lipase (23-300) U/L Urine Color Yellow Urine Appearance Slightly Cloudy (Clear) Urine pH 8.0 (5.0-8.0) Ur Specific [place] 1.005 (1.001-1.035) Urine Protein Negative (Negative) Urine Glucose (UA) Negative (Negative) Urine Ketones Negative (Negative) Urine Blood Large (Negative) Urine Nitrite Negative (Negative) Urine Bilirubin Negative (Negative) Urine Urobilinogen 4.0 (<2.0) mg/dL Ur Leukocyte Esterase Negative (Negative) Urine RBC 8 H (0-5) /hpf Urine WBC <1 (0-5) /hpf Serum Alcohol mg/dL Disposition Clinical Impression: GI bleed, Hx of esophageal varices, Melena, Ascites, Umbilical hernia Disposition: ADMITTED IP TO THIS [facility] Condition: Serious Is patient prescribed a controlled substance at d/c from ED?: No Time of Disposition: 16:40 Decision to Admit Reason: Admit from EC Decision Date: 07/05/19 Decision Time: 16:40
[2019-07-05] MEDS ORDERED: SODIUM CHLORIDE 0.9% 500 ML 500 ML IV ONE (14:49)
[2019-07-05 14:57] LABS: ALT 49 U/L (4-49); AST 266 U/L (17-59); African American GFR (CKD) >90 (>60 ml/min/1.73 sqM); Albumin 3.6 g/dL (3.5-5.0); Alkaline Phosphatase 231 U/L (38-126); Amylase 66 U/L (30-110); Anion Gap 10 mmol/L; Blood Urea Nitrogen 7 mg/dL (9-20); Calcium 8.6 mg/dL (8.4-10.2); Carbon Dioxide 20 mmol/L (22-30); Chloride 113 mmol/L (98-107); Glucose 126 mg/dL (74-99); Magnesium 1.8 mg/dL (1.6-2.3); Non-African American GFR(CKD) >90 (>60 ml/min/1.73 sqM); Phosphorus 4.5 mg/dL (2.5-4.5); Potassium 4.5 mmol/L (3.5-5.1); Sodium 143 mmol/L (137-145); Total Bilirubin 1.7 mg/dL (0.2-1.3)
[2019-07-05 15:05] LABS: RBC,Urine 8 /hpf (0-5); WBC,Urine <1 /hpf (0-5)
[2019-07-05 15:08] LABS: Alcohol 266 mg/dL
[2019-07-05 15:09] LABS: HGB 11.7 gm/dL (13.0-17.5); Hypochromasia Slight; MCH 31.3 pg (25.0-35.0); MCHC 31.6 g/dL (31.0-37.0); MCV 99.2 fL (80.0-100.0); Macrocytosis Slight; Mean Platelet Volume 9.3; RBC 3.73 m/uL (4.30-5.90); RDW 15.6 % (11.5-15.5); WBC 4.1 k/uL (3.8-10.6)
[2019-07-05 15:11] LABS: INR 1.2 (<1.2); Partial Thromboplastin Time 23.5 sec (22.0-30.0); Prothrombin Time 12.1 sec (9.0-12.0)
[2019-07-05 15:11] LABS: Platelet Count 65 k/uL (150-450)
[2019-07-05 15:20] LABS: Appearance,Urine Slightly Cloudy (Clear); Color,Urine Yellow; Glucose,Urine (UA) Negative (Negative); Protein,Urine Negative (Negative); Specific Gravity,Urine 1.005 (1.001-1.035)
[2019-07-05 15:21] LABS: Bilirubin,Urine Negative (Negative); Blood,Urine Large (Negative); Ketones,Urine Negative (Negative); Leukocyte Esterase,Urine Negative (Negative); Nitrite,Urine Negative (Negative)
[2019-07-05 15:32] LABS: Lymphocytes # (M) 0.74 k/uL (1.0-4.8); Monocytes # (M) 0.25 k/uL (0-1.0); Neutrophils # (M) 3.12 k/uL (1.3-7.7); Neutrophils % (M) 76 %; Nucleated Red Blood Cells 0 /100 WBC (0-0); Total Cells Counted 100
[2019-07-05 15:33] LABS: Anisocytosis (M) Present; Polychromasia Present
[2019-07-05] MEDS ORDERED: HYDROmorphone 0.5 MG/0.5 ML SYRINGE IVP STA (16:11)
[2019-07-05] MEDS ORDERED: OCTREOTIDE 500 MCG in SODIUM CHLORIDE 0.9% 250 ML IV ONE ×2 (16:13→22:56)
--- NOTE | 2019-07-05 16:36 | CT ---
EXAMINATION TYPE: CT abdomen pelvis w con DATE OF EXAM: 07/05/2019 COMPARISON: Prior CT 12/14/2018 HISTORY: pain, distention CT DLP: 1849.7 mGycm Automated exposure control for dose reduction was used. TECHNIQUE: Helical acquisition of images from the lung bases through the pelvis have been completed. CONTRAST: Performed with Oral Contrast and with IV Contrast, patient injected with 100 mL of Isovue 300. FINDINGS: Extensive ascites is again seen. Large varices present at the gastroesophageal junction, di stal esophagus shows a somewhat thickened appearance. LUNG BASES: No significant abnormality is appreciated. AORTA: No significant abnormality is appreciated. LIVER/GB: Marked heterogeneity in the density of the liver is again noted with nodularity, mass effec t on vasculature, nodular contour is consistent with cirrhosis, patient is post cholecystectomy. PANCREAS: No significant abnormality is seen. SPLEEN: Enlarged ADRENALS: No significant abnormality is seen. KIDNEYS: No significant abnormality is seen. REPRODUCTIVE ORGANS: Large left hydrocele is noted incidentally, partially visualized BOWEL: There is inflammatory change seen at the level of the patient's umbilicus with a previous bow el obstruction is identified, there is increased attenuation within the subcutaneous fat. There may b e some mesenteric fat entrapped at this level. Interval resolution of patient's small bowel obstructi on. FREE AIR: No Free Air visible. ASCITES: None visible. PELVIC ADENOPATHY: None visualized. RETROPERITONEAL ADENOPATHY: No Retroperitoneal Adenopathy visible. URINARY BLADDER: No significant abnormality is seen. OSSEOUS STRUCTURES: No significant abnormality is seen. IMPRESSION: FINDINGS ARE SIMILAR TO PRIOR EXAM. CIRRHOTIC LIVER, EVIDENCE OF PORTAL HYPERTENSION WITH LARGE AMOUN T OF ASCITES, SPLENOMEGALY, DIFFICULT TO EXCLUDE UNDERLYING MASS WITHIN THE LIVER. INFLAMMATORY AMAYA ES AT THE UMBILICUS DESCRIBED COULD BE DUE TO SOME FAT NECROSIS. NO EVIDENT BOWEL OBSTRUCTION. POS TOP CHANGES.
[2019-07-05] MEDS ORDERED: NALOXONE 0.4 MG/ML 1 ML VIAL IV PRN (16:38)
[2019-07-05] MEDS: SODIUM CHLORIDE 0.9% 1,000 ML IV SCH (18:35)
[2019-07-05] MEDS: THIAMINE 100 MG TAB PO SCH (19:35)
[2019-07-05] MEDS: HYDROmorphone 0.5 MG/0.5 ML SYRINGE IVP PRN (20:23)
[2019-07-05] MEDS: LORazepam 2 MG/ML INJ IV PRN (20:24)
[2019-07-06] MEDS: HYDROmorphone 0.5 MG/0.5 ML SYRINGE IVP PRN ×7 (00:10→22:47)
[2019-07-06] MEDS: SODIUM CHLORIDE 0.9% 1,000 ML IV SCH ×2 (00:43→20:16)
[2019-07-06 06:34] LABS: HCT 35.5 % (39.0-53.0); HGB 10.8 gm/dL (13.0-17.5); Hypochromasia Moderate; MCH 30.8 pg (25.0-35.0); MCHC 30.5 g/dL (31.0-37.0); MCV 100.9 fL (80.0-100.0); Macrocytosis Slight; Mean Platelet Volume 8.8; RBC 3.52 m/uL (4.30-5.90); RDW 15.5 % (11.5-15.5); WBC 2.8 k/uL (3.8-10.6)
[2019-07-06 06:35] LABS: Platelet Count 66 k/uL (150-450)
[2019-07-06] MEDS: THIAMINE 100 MG TAB PO SCH ×2 (06:41→14:37)
[2019-07-06 06:49] LABS: Band Neutrophils % 3 %; Eosinophils # (M) 0.22 k/uL (0-0.7); Lymphocytes # (M) 0.62 k/uL (1.0-4.8); Monocytes # (M) 0.53 k/uL (0-1.0); Neutrophils % (M) 48 %; Nucleated Red Blood Cells 0 /100 WBC (0-0); Total Cells Counted 100
[2019-07-06 06:50] LABS: Anisocytosis (M) Present
[2019-07-06] MEDS: PANTOPRAZOLE 40 MG/10 ML VIAL IVP SCH ×2 (09:32→20:15)
[2019-07-06 13:07] LABS: HGB 10.8 gm/dL (13.0-17.5); Hypochromasia Marked; MCH 31.4 pg (25.0-35.0); MCV 101.2 fL (80.0-100.0); Macrocytosis Slight; Mean Platelet Volume 10.2; RBC 3.45 m/uL (4.30-5.90); RDW 15.4 % (11.5-15.5); WBC 2.3 k/uL (3.8-10.6)
[2019-07-06] MEDS ORDERED: LIDOCAINE 1% INJ 10MG/ML (20 ML MDV) ONE (13:13)
[2019-07-06] MEDS ORDERED: PROPOFOL 10 MG/ML 20 ML VIAL IV ONE (13:13)
[2019-07-06] MEDS ORDERED: IV FLUID CONTINUATION 1,000 ML IV ONE (13:17)
--- NOTE | 2019-07-06 13:31 | P.PCN ---
Date of Procedure: 07/06/19 Procedure(s) Performed: BRIEF HISTORY: Patient is a 44-year-old, pleasant, white male, with history of alcohol cirrhosis and previous history of esophageal variceal bleeding with last EGD performed in February 2019 was admitted hospital with GI bleed. He had some darker stools. PROCEDURE PERFORMED: Esophagogastroduodenoscopy. PREOPERATIVE DIAGNOSIS: GI bleed/history of esophageal varices/alcoholic cirrhosis of the liver. IV sedation per anesthesia. PROCEDURE: After informed consent was obtained, the patient was brought into the endoscopy unit. IV sedation was administered by Anesthesia under continuous monitoring. Initially the Olympus GIF-140 video endoscope was inserted into the mouth. Esophagus intubated without any difficulty. It was gradually advanced into the stomach and duodenum and carefully examined. The bulb and the second part of the duodenum appeared normal. The scope at this time was withdrawn to the stomach, adequately insufflated with air, and upon careful examination, mucosa of the antrum, body, cardia and the fundus showed changes consistent with portal hypertensive gastropathy. No active bleeding noted. The scope was then withdrawn into the esophagus. The GE junction was located at 39 cm from the incisors. There were very small distal esophageal varices identified with no active bleeding. Also there was a 2 cm superficial ulcer in the distal esophagus at the site of previous variceal banding noted. The rest of the esophagus appeared normal. There were no erosions or ulcerations seen and the patient tolerated the procedure well. IMPRESSION: 1. 2 cm superficial ulcer in the distal esophagus at the site of previous variceal banding. 2. Very small esophageal varices 3. Mild to moderate portal hypertensive gastropathy. RECOMMENDATIONS: The findings of this examination were discussed with the patient. He'll be continued on Protonix 40 mg twice daily. Advance diet as tolerated..
[2019-07-06 13:33] LABS: Platelet Count 40 k/uL (150-450)
[2019-07-06 13:53] LABS: Eosinophils # (M) 0.09 k/uL (0-0.7); Lymphocytes # (M) 0.62 k/uL (1.0-4.8); Monocytes # (M) 0.44 k/uL (0-1.0); Neutrophils # (M) 1.15 k/uL (1.3-7.7); Neutrophils % (M) 50 %; Nucleated Red Blood Cells 0 /100 WBC (0-0); Poikilocytosis (M) Present; Total Cells Counted 100
[2019-07-06 13:54] LABS: Large Platelets Present
--- NOTE | 2019-07-06 17:03 | P.HPIM ---
History of Present Illness H&P Date: 07/06/19 Chief Complaint: Abdominal pain, dark tarry stools, ascites This is a 44-year-old white male ,known history of esophageal varices, blood loss anemia vomiting, significant alcoholism and cirrhosis. He presented to the emergency room for increased abdominal pain, ascites and black tarry stools. He denies any significant nausea or vomiting. Currently Denies chest pain, palpi tations or shortness of breath. GI consulted, EGD pending. Maintained on Sandostatin drip, CIWA protocol. Hemoglobin on admission 11.7 WBC 4.1, platelets 65. INR 1.2 Stool for occult blood negative. Total bili 1.7, AST 266, alk phos 231, ALT 49. CT of abdomen and pelvis noted, similar to prior exam reporting cirrhotic liver, evidence of portal hypertension with large amount of ascites, splenomegaly, difficult to exclude underlying mass within the liver, inflammatory changes at the umbilicus, possibly fat necrosis with no evidence of bowel obstruction. Review of Systems ROS Statement: Those systems with pertinent positive or pertinent negative responses have been documented in the HPI. ROS Other: All systems not noted in ROS Statement are negative. Past Medical History Past Medical History: Asthma, GI Bleed, Liver Disease, Osteoarthritis (OA), Pneumonia, Skin Disorder Additional Past Medical History / Comment(s): liver cirrhosis, abdominal ascites, pancreatitis, past multiple gallstones, nephrolithiasis, chronic anemia, esophageal varices, hx urinating blood and kidneys stone, bleeding ulcers, hernia, psoriasis History of Any Multi-Drug Resistant Organisms: MRSA Date of last positivie culture/infection: 12/09/13 MDRO Source:: Right first finger Past Surgical History: Appendectomy, Cholecystectomy, Hernia Repair, Orthopedic Surgery Additional Past Surgical History / Comment(s): EGD/colonoscopy, paracentesis, right hand tendon repair, right knee arthroscopy, cystoscopy for kidney stone removal, right hand ring finger surgery. surgery for umbilical hernia, Past Anesthesia/Blood Transfusion Reactions: Previous Problems w/ Anesthesia Additional Past Anesthesia/Blood Transfusion Reaction / Comment(s): Woke up during scope procedure. Past Psychological History: PTSD Additional Psychological History / Comment(s): PT currently resides with his parents. active alcohol use. Current marijuana use. No current injection drug use. 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 past ETOH- none currently per pt Past Drug Use History: None Reported Additional Drug Use History / Comment(s): Pt states he smokes marijuana on occasion. No other drug use. - Past Family History Mother Family Medical History: No Reported History Father Additional Family Medical History / Comment(s): Prostate issues grandpa. Brain aneurysm father. Medications and Allergies Home Medications Medication Instructions Recorded Confirmed Type Thiamine [Vitamin B-1] 100 mg PO DAILY #30 tablet 09/03/17 07/05/19 Rx Multivitamins, Thera [Multivitamin 1 tab PO DAILY 12/14/18 07/05/19 History (formulary)] Magnesium Oxide [Mag-Ox] 400 mg PO DAILY #30 tablet 01/22/19 07/05/19 Rx Potassium Chloride ER [K-Dur 20] 20 meq PO DAILY #10 tab 01/22/19 07/05/19 Rx Furosemide [Lasix] 40 mg PO BID 02/03/19 07/05/19 History Diazepam [Valium] 20 mg PO Q4-6H PRN 07/05/19 07/05/19 History Hydrocodone/Acetaminophen [[place] 1 tab PO Q8H PRN 07/05/19 07/05/19 History 10-325] Lactulose [Cephulac] 20 gm PO BID 07/05/19 07/05/19 History Pantoprazole [Protonix] 40 mg PO DAILY 07/05/19 07/05/19 History Spironolactone [Aldactone] 50 mg PO DAILY 07/05/19 07/05/19 History Allergies Allergy/AdvReac Type Severity Reaction Status Date / Time No Known Allergies Allergy Verified 07/05/19 17:31 Physical Exam Vitals: Vital Signs Temp Pulse Pulse Resp BP BP Pulse Ox 07/06/19 12:00 69 17 139/81 94 L 07/06/19 09:24 69 07/06/19 08:45 17 07/06/19 08:00 97.9 F 69 17 140/69 94 L 07/06/19 05:11 98.7 F 97 19 127/79 99 07/06/19 02:14 98.1 F 77 17 119/81 93 L 07/06/19 00:13 98.0 F 80 18 133/87 96 07/05/19 22:42 89 18 132/82 92 L 07/05/19 18:35 80 18 124/83 96 07/05/19 17:25 84 18 124/83 94 L Intake and Output 07/05/19 07/06/19 07/06/19 22:59 06:59 14:59 Intake Total 650 100 Output Total 600 Balance 50 100 Intake: IV 100 Intake, IV Titration 650 Amount Octreotide 500 mcg In 75 Sodium Chloride 0.9% 250 ml @ 25 MCG/HR 12.5 mls/ hr IV .Q20H ONE Rx#: [id number] Sodium Chloride 0.9% 1, 525 000 ml @ 75 mls/hr IV . [id number] RADHA Rx#:[id number] cefTRIAXone 1 gm In 50 Sodium Chloride 0.9% 50 ml @ 100 mls/hr IVPB ONCE STA Rx#:[id number] Output: Urine 600 Other: # Voids 1 2 Weight 88.4 kg GENERAL: Alert and oriented 3, sitting up in bed ,Fatigued, no significant jaundice noted, and in no acute distress. HEAD: Atraumatic, normocephalic. EYES: Pupils equal round and reactive to light, extraocular movements intact, sclera anicteric, conjunctiva are normal. ENT:nares patent, oropharynx clear without exudates. Dry mucous membranes. NECK: Normal range of motion, supple without lymphadenopathy or JVD, no thyromegaly LUNGS: Breath sounds clear to auscultation bilaterally and equal. No wheezes rales or rhonchi. HEART: Regular rate and rhythm without murmurs, rubs or gallops.S1S2 Normal ABDOMEN: Soft, mildly tender, quite distended. Positive fluid wave, CONSISTENT with significant ascites. EXTREMITIES: Normal range of motion, no pitting or edema. No clubbing or cyanosis. NEUROLOGICAL: Cranial nerves II through XII grossly intact. Normal speech, normal gait. PSYCH: Normal mood, normal affect. SKIN: Warm, Dry, normal turgor, no rashes noted. Results CBC & Chem 7: 07/06/19 12:00 07/05/19 14:36 Labs: Abnormal Lab Results - Last 24 Hours (Table) 07/05/19 07/05/19 07/05/19 Range/Units 14:36 14:36 14:38 WBC (3.8-10.6) k/uL RBC 3.73 L (4.30-5.90) m/uL Hgb 11.7 L (13.0-17.5) gm/dL Hct 37.0 L (39.0-53.0) % MCV (80.0-100.0) fL MCHC (31.0-37.0) g/dL RDW 15.6 H (11.5-15.5) % Plt Count 65 L (150-450) k/uL Lymphocytes # (Manual) 0.74 L (1.0-4.8) k/uL PT 12.1 H (9.0-12.0) sec INR 1.2 H (<1.2) Chloride 113 H (98-107) mmol/L Carbon Dioxide 20 L (22-30) mmol/L BUN 7 L (9-20) mg/dL Creatinine 0.46 L (0.66-1.25) mg/dL Glucose 126 H (74-99) mg/dL Total Bilirubin 1.7 H (0.2-1.3) mg/dL AST 266 H (17-59) U/L Alkaline Phosphatase 231 H (38-126) U/L Lipase 567 H (23-300) U/L Urine RBC (0-5) /hpf Serum Alcohol 266 H* mg/dL 07/05/19 07/06/19 07/06/19 Range/Units 14:45 05:50 12:00 WBC 2.8 L 2.3 L (3.8-10.6) k/uL RBC 3.52 L 3.45 L (4.30-5.90) m/uL Hgb 10.8 L 10.8 L (13.0-17.5) gm/dL Hct 35.5 L 35.0 L (39.0-53.0) % MCV 100.9 H 101.2 H (80.0-100.0) fL MCHC 30.5 L (31.0-37.0) g/dL RDW (11.5-15.5) % Plt Count 66 L (150-450) k/uL Lymphocytes # (Manual) 0.62 L (1.0-4.8) k/uL PT (9.0-12.0) sec INR (<1.2) Chloride (98-107) mmol/L Carbon Dioxide (22-30) mmol/L BUN (9-20) mg/dL Creatinine (0.66-1.25) mg/dL Glucose (74-99) mg/dL Total Bilirubin (0.2-1.3) mg/dL AST (17-59) U/L Alkaline Phosphatase (38-126) U/L Lipase (23-300) U/L Urine RBC 8 H (0-5) /hpf Serum Alcohol mg/dL Assessment and Plan Assessment: (1) Abdominal pain Current Visit: Yes Status: Acute Code(s): R10.9 - UNSPECIFIED ABDOMINAL PAIN SNOMED Code(s): 36815030 (2) Alcoholic liver disease Current Visit: No Status: Acute Code(s): K70.9 - ALCOHOLIC LIVER DISEASE, UNSPECIFIED SNOMED Code(s): 22232937 (3) Tobacco abuse Current Visit: Yes Status: Acute Code(s): Z72.0 - TOBACCO USE SNOMED Code(s): 986565138 (4) Chronic blood loss anemia Current Visit: Yes Status: Acute Code(s): D50.0 - IRON DEFICIENCY ANEMIA SECONDARY TO BLOOD LOSS (CHRONIC) SNOMED Code(s): 783658217 (5) Ascites Current Visit: Yes Status: Acute Code(s): R18.8 - OTHER ASCITES SNOMED Code(s): 865700322 (6) Cirrhosis Current Visit: Yes Status: Acute Code(s): K74.60 - UNSPECIFIED CIRRHOSIS OF LIVER SNOMED Code(s): 68472030 (7) ETOH abuse Current Visit: Yes Status: Acute Code(s): F10.10 - ALCOHOL ABUSE, UNCOMPLICATED SNOMED Code(s): 20189773 (8) Alcohol intoxication Current Visit: No Status: Acute Code(s): F10.929 - ALCOHOL USE, UNSPECIFIED WITH INTOXICATION, UNSPECIFIED SNOMED Code(s): 67185414 (9) Cirrhosis of liver with ascites Current Visit: No Status: Acute Code(s): K74.60 - UNSPECIFIED CIRRHOSIS OF LIVER; R18.8 - OTHER ASCITES SNOMED Code(s): 69803807 (10) Coagulopathy Current Visit: No Status: Acute Code(s): D68.9 - COAGULATION DEFECT, UNSPECIFIED SNOMED Code(s): 66661145 (11) Esophageal varices Current Visit: No Status: Acute Code(s): I85.00 - ESOPHAGEAL VARICES WITHOUT BLEEDING SNOMED Code(s): 13490934 (12) Portal hypertension Current Visit: No Status: Acute Code(s): K76.6 - PORTAL HYPERTENSION SNOMED Code(s): 53419256 (13) possible liver mass per CT Plan: Continue on current medication regime ,monitoring and symptomatic treatment. Maintain PPI .GI consulted, nothing by mouth for EGD. Continue on Sandostatin drip, CIWA protocol.Prognosis guarded given multiple complex medical issues . The impression and plan of care has been dictated as directed. : I performed a history and examination of this patient, discussed the same with the dictator. I agree with the dictator's note ,documented as a scribe. Any additional findings or plans will be noted.
--- NOTE | 2019-07-06 18:07 | CONS ---
CONSULTATION DATE OF DICTATION: 07/06/2019 REASON FOR CONSULTATION: Abdominal pain, ascites and dark stools. HISTORY OF PRESENT ILLNESS: The patient is a 44-year-old pleasant white male, known to us from his multiple previous hospitalizations, with history of heavy alcohol abuse, alcoholic cirrhosis of the liver with previous hospitalizations for GI bleed and esophageal variceal ligation. He presented to the hospital because of abdominal pain and dark-colored stools on and off for the last few days' duration. He also has been having increasing abdominal distention. Last paracentesis was a year ago. Last upper endoscopy was in February of 2019 and esophageal variceal ligation was performed at that time. The patient also has history of severe reflux esophagitis and was treated with proton pump inhibitors in the past. He denies any nausea, vomiting. No coffee-ground emesis. PAST MEDICAL HISTORY: Alcoholic cirrhosis of the liver, history of esophageal variceal bleeding in the past, ascites and alcohol abuse, degenerative joint disease. PAST SURGICAL HISTORY: Multiple EGDs, appendectomy, cholecystectomy, hernia repair, large-volume paracentesis, cystoscopy for kidney stone removal. MEDICATIONS: Medications at home include Ventolin, Lasix, multivitamin, folic acid. SOCIAL HISTORY: Chronic smoker. He was abstinent from alcohol for a few months, but for the last 3 weeks started drinking again. REVIEW OF SYSTEMS: CARDIOPULMONARY: No chest pain or shortness of breath. GENITOURINARY: No dysuria or hematuria. MUSCULOSKELETAL: Unremarkable. SKIN: Unremarkable. ENDOCRINE: Unremarkable. PSYCHIATRIC: Anxiety, depression. NEUROLOGY: Unremarkable. ENT/VISION: Unremarkable. CONSTITUTIONAL: No recent weight loss. No fever, chills, night sweats. FAMILY HISTORY: Mother unremarkable. Father had brain aneurysm. PHYSICAL EXAMINATION: He appears comfortable. No apparent distress. VITAL SIGNS: Stable. Blood pressure is 139/81, pulse rate 69, temperature 98.6. HEENT examination unremarkable. Conjunctivae pink. Sclerae anicteric. Oral cavity no lesions. NECK: No JVD or lymph node enlargement. CHEST: Clear to auscultation. HEART: Regular rate and rhythm. ABDOMEN: Soft. Bowel sounds are positive. No organomegaly. EXTREMITIES: No pedal edema. SKIN: No rashes. NEUROLOGIC: Alert and oriented x3. No focal deficits. LABS: Labs done at the time of admission to the hospital showed WBC 3.9, hemoglobin 10.8, platelets 66,000. Basic metabolic panel is within normal limits. BUN and creatinine are 7 and 0.46, respectively. INR is 1.2. T-bilirubin 1.7, AST 266, ALT 49, alkaline phosphatase 231. IMPRESSION: 1. Dark-colored stools for the last one week duration. Possible GI bleed. Hemoglobin at 10.8 g/dL. Patient with prior history of esophageal varices requiring variceal ligation in February of 2019. Clinically hemodynamically stable. 2. Alcoholic cirrhosis of the liver with decompensation. 3. Abdominal distention; possible ascites. Remains on diuretics with Lasix 20 mg daily. 4. Heavy alcohol abuse. RECOMMENDATIONS: 1. We will proceed with an EGD today. 2. Schedule for large-volume paracentesis tomorrow. 3. We will start him back on Lasix 40 mg daily and Aldactone 100 mg daily. 4. Low-salt diet after the upper endoscopy. We will follow with you closely. Thank you for this consultation. MMSHANNONL / IJN: [id number] /
[2019-07-06] MEDS: LORazepam 2 MG/ML INJ IV PRN (20:16)
[2019-07-07] MEDS: SODIUM CHLORIDE 0.9% 1,000 ML IV SCH (04:37)
[2019-07-07] MEDS: HYDROmorphone 0.5 MG/0.5 ML SYRINGE IVP PRN ×2 (05:48→12:10)
[2019-07-07] MEDS: THIAMINE 100 MG TAB PO SCH (06:26)
[2019-07-07 07:17] VITALS: TEMP 98.7
[2019-07-07] MEDS: PANTOPRAZOLE 40 MG/10 ML VIAL IVP SCH (08:36)
[2019-07-07] MEDS ORDERED: MAGNESIUM OXIDE 400 MG TAB PO SCH (09:00)
[2019-07-07] MEDS ORDERED: FUROSEMIDE 40 MG TAB PO SCH (09:00)
[2019-07-07] MEDS ORDERED: MULTIVITAMINS, THERA 1 EACH TAB PO SCH (09:00)
[2019-07-07] MEDS ORDERED: SPIRONOLACTONE 25 MG TAB PO SCH (09:00)
[2019-07-07] MEDS ORDERED: POTASSIUM CHLORIDE ER 20 MEQ TAB.ER PO SCH (09:00)
[2019-07-07 09:35] LABS: Mean Platelet Volume 9.1
[2019-07-07 09:37] LABS: Platelet Count 57 k/uL (150-450)
[2019-07-07 10:30] LABS: INR 1.4 (<1.2); Prothrombin Time 14.3 sec (9.0-12.0)
[2019-07-07 10:35] LABS: ALT 32 U/L (4-49); AST 158 U/L (17-59); African American GFR (CKD) >90 (>60 ml/min/1.73 sqM); Albumin 2.8 g/dL (3.5-5.0); Alkaline Phosphatase 177 U/L (38-126); Anion Gap 8 mmol/L; Blood Urea Nitrogen 6 mg/dL (9-20); Calcium 7.6 mg/dL (8.4-10.2); Carbon Dioxide 20 mmol/L (22-30); Chloride 107 mmol/L (98-107); Glucose 116 mg/dL (74-99); Non-African American GFR(CKD) >90 (>60 ml/min/1.73 sqM); Potassium 3.3 mmol/L (3.5-5.1); Sodium 135 mmol/L (137-145); Total Bilirubin 2.1 mg/dL (0.2-1.3); Total Protein 6.5 g/dL (6.3-8.2)
[2019-07-07] MEDS ORDERED: diphenhydrAMINE 50 MG/ML 1 ML VIAL IVP STA (10:55)
--- NOTE | 2019-07-07 10:55 | P.PN ---
Subjective Progress Note Date: 07/07/19 This is a 44-year-old white male ,known history of esophageal varices, blood loss anemia vomiting, significant alcoholism and cirrhosis. He presented to the emergency room for increased abdominal pain, ascites and black tarry stools. He denies any significant nausea or vomiting. Currently Denies chest pain, palpitations or shortness of breath. GI consulted, EGD pending. Maintained on Sandostatin drip, CIWA protocol. Hemoglobin on admission 11.7 WBC 4.1, platelets 65. INR 1.2 Stool for occult blood negative. Total bili 1.7, AST 266, alk phos 231, ALT 49. CT of abdomen and pelvis noted, similar to prior exam reporting cirrhotic liver, evidence of portal hypertension with large amount of ascites, splenomegaly, difficult to exclude underlying mass within the liver, inflammatory changes at the umbilicus, possibly fat necrosis with no evidence of bowel obstruction. 07/07/2019 yesterday completed EGD reporting 2 cm superficial ulcer in the distal esophagus at the site of previous variceal banding, very small esophageal varices, mild to moderate portal hypertensive gastropathy. Scheduled for paracentesis,. CBC pending. Denies black stools,bleeding. Denies chest pain, palpitations or shortness of breath. Patient has apparently rash which he states is from wearing nickel plated belt buckle which she is ALLERGIC to. Objective - Vital Signs Vital signs: Vital Signs Temp 98.7 F 07/07/19 07:16 Pulse 71 07/07/19 09:35 Resp 16 07/07/19 07:16 BP 128/75 07/07/19 07:16 Pulse Ox 93 L 07/07/19 07:16 Intake & Output 07/06/19 07/07/19 07/07/19 18:59 06:59 18:59 Intake Total 100 460 20 Output Total 950 Balance 100 -490 20 Weight 88.5 kg Intake: IV 100 Oral 460 20 Output: Urine 950 Other: # Voids 2 - Exam GENERAL: Alert and oriented 3, sitting up in bed ,no acute distress. HEAD: Atraumatic, normocephalic. EYES: Pupils equal round and reactive to light, extraocular movements intact, sclera anicteric, conjunctiva are normal. ENT:oropharynx clear without exudates. Dry mucous membranes. NECK: Normal range of motion, supple without lymphadenopathy or JVD, no thyromegaly LUNGS: Breath sounds clear to auscultation bilaterally and equal. No wheezes rales or rhonchi. HEART: Regular rate and rhythm without murmurs, rubs or gallops.S1S2 Normal ABDOMEN: Soft, mildly tender, distended, positive ascites. EXTREMITIES: Normal range of motion, no pitting or edema. No clubbing or cyanosis. NEUROLOGICAL: Cranial nerves II through XII grossly intact. PSYCH: Normal mood, normal affect. SKIN: Warm, Dry, normal turgor, umbilical/beltlinebeltline rash, - Labs CBC & Chem 7: 07/07/19 09:05 07/07/19 10:04 Labs: Abnormal Lab Results - Last 24 Hours (Table) 07/06/19 07/07/19 07/07/19 Range/Units 12:00 09:05 10:04 WBC 2.3 L (3.8-10.6) k/uL RBC 3.45 L (4.30-5.90) m/uL Hgb 10.8 L (13.0-17.5) gm/dL Hct 35.0 L (39.0-53.0) % MCV 101.2 H (80.0-100.0) fL Plt Count 40 L 57 L (150-450) k/uL Neutrophils # (Manual) 1.15 L (1.3-7.7) k/uL Lymphocytes # (Manual) 0.62 L (1.0-4.8) k/uL PT 14.3 H (9.0-12.0) sec INR 1.4 H (<1.2) Sodium (137-145) mmol/L Potassium (3.5-5.1) mmol/L Carbon Dioxide (22-30) mmol/L BUN (9-20) mg/dL Creatinine (0.66-1.25) mg/dL Glucose (74-99) mg/dL Calcium (8.4-10.2) mg/dL Total Bilirubin (0.2-1.3) mg/dL AST (17-59) U/L Alkaline Phosphatase (38-126) U/L Albumin (3.5-5.0) g/dL 07/07/19 Range/Units 10:04 WBC (3.8-10.6) k/uL RBC (4.30-5.90) m/uL Hgb (13.0-17.5) gm/dL Hct (39.0-53.0) % MCV (80.0-100.0) fL Plt Count (150-450) k/uL Neutrophils # (Manual) (1.3-7.7) k/uL Lymphocytes # (Manual) (1.0-4.8) k/uL PT (9.0-12.0) sec INR (<1.2) Sodium 135 L (137-145) mmol/L Potassium 3.3 L (3.5-5.1) mmol/L Carbon Dioxide 20 L (22-30) mmol/L BUN 6 L (9-20) mg/dL Creatinine 0.46 L (0.66-1.25) mg/dL Glucose 116 H (74-99) mg/dL Calcium 7.6 L (8.4-10.2) mg/dL Total Bilirubin 2.1 H (0.2-1.3) mg/dL AST 158 H (17-59) U/L Alkaline Phosphatase 177 H (38-126) U/L Albumin 2.8 L (3.5-5.0) g/dL Assessment and Plan Assessment: (1) Abdominal pain. Status post EGD reporting 2 cm superficial ulcer of the distal esophagus at the site of previous variceal banding Current Visit: Yes Status: Acute Code(s): R10.9 - UNSPECIFIED ABDOMINAL PAIN SNOMED Code(s): 43237963 (2) Alcoholic liver disease Current Visit: No Status: Acute Code(s): K70.9 - ALCOHOLIC LIVER DISEASE, UNSPECIFIED SNOMED Code(s): 89372818 (3) Tobacco abuse Current Visit: Yes Status: Acute Code(s): Z72.0 - TOBACCO USE SNOMED Code(s): 396696122 (4) Chronic blood loss anemia Current Visit: Yes Status: Acute Code(s): D50.0 - IRON DEFICIENCY ANEMIA SECONDARY TO BLOOD LOSS (CHRONIC) SNOMED Code(s): 592828792 (5) Ascites Current Visit: Yes Status: Acute Code(s): R18.8 - OTHER ASCITES SNOMED Code(s): 692690764 (6) Cirrhosis Current Visit: Yes Status: Acute Code(s): K74.60 - UNSPECIFIED CIRRHOSIS OF LIVER SNOMED Code(s): 74108606 (7) ETOH abuse Current Visit: Yes Status: Acute Code(s): F10.10 - ALCOHOL ABUSE, UNCOMPLICATED SNOMED Code(s): 29998530 (8) Alcohol intoxication Current Visit: No Status: Acute Code(s): F10.929 - ALCOHOL USE, UNSPECIFIED WITH INTOXICATION, UNSPECIFIED SNOMED Code(s): 97898681 (9) Cirrhosis of liver with ascites Current Visit: No Status: Acute Code(s): K74.60 - UNSPECIFIED CIRRHOSIS OF LIVER; R18.8 - OTHER ASCITES SNOMED Code(s): 05645326 (10) Coagulopathy Current Visit: No Status: Acute Code(s): D68.9 - COAGULATION DEFECT, UNSPECIFIED SNOMED Code(s): 41663682 (11) Esophageal varices, very small per EGD Current Visit: No Status: Acute Code(s): I85.00 - ESOPHAGEAL VARICES WITHOUT BLEEDING SNOMED Code(s): 42927071 (12) Portal hypertension, mild to moderate Current Visit: No Status: Acute Code(s): K76.6 - PORTAL HYPERTENSION SNOMED Code(s): 47267415 (13) possible liver mass per CT Plan: Continue on current medication regime ,monitoring and symptomatic treatment. Paracentesis pending , continue on PPI , CIWA protocol.CBC pending . Discharge planning in progress post paracentesis pending GI clearance, final DC recommendations, CBC results. The impression and plan of care has been dictated as directed. : I performed a history and examination of this patient, discussed the same with the dictator. I agree with the dictator's note ,documented as a scribe. Any additional findings or plans will be noted.
[2019-07-07] MEDS ORDERED: diphenhydrAMINE 25 MG CAP PO PRN (10:56)
[2019-07-07 11:00] LABS: HCT 33.2 % (39.0-53.0); HGB 10.7 gm/dL (13.0-17.5); MCH 31.6 pg (25.0-35.0); MCHC 32.2 g/dL (31.0-37.0); MCV 98.1 fL (80.0-100.0); RBC 3.38 m/uL (4.30-5.90); RDW 15.4 % (11.5-15.5); WBC 2.4 k/uL (3.8-10.6)
--- NOTE | 2019-07-07 11:02 | P.DS ---
Providers Date of admission: 07/05/19 16:37 Expected date of discharge: 07/07/19 Attending physician: Aristeo Fox Consults: 07/05/19 16:38 Consult Physician Routine Consulting Provider: Bernie Huff Consult Reason/Comments: GI bleed Do you want consulting provider notified?: Yes Primary care physician: [facility] Course: Final Diagnoses: (1) Abdominal pain. Status post EGD reporting 2 cm superficial ulcer of the distal esophagus at the site of previous variceal banding Current Visit: Yes Status: Acute Code(s): R10.9 - UNSPECIFIED ABDOMINAL PAIN SNOMED Code(s): 36949346 (2) Alcoholic liver disease Current Visit: No Status: Acute Code(s): K70.9 - ALCOHOLIC LIVER DISEASE, UNSPECIFIED SNOMED Code(s): 97909447 (3) Tobacco abuse Current Visit: Yes Status: Acute Code(s): Z72.0 - TOBACCO USE SNOMED Code (s): 323094058 (4) Chronic blood loss anemia Current Visit: Yes Status: Acute Code(s): D50.0 - IRON DEFICIENCY ANEMIA SECONDARY TO BLOOD LOSS (CHRONIC) SNOMED Code(s): 578278224 (5) Ascites Current Visit: Yes Status: Acute Code(s): R18.8 - OTHER ASCITES SNOMED Code(s): 739443553 (6) Cirrhosis Current Visit: Yes Status: Acute Code(s): K74.60 - UNSPECIFIED CIRRHOSIS OF LIVER SNOMED Code(s): 00638356 (7) ETOH abuse Current Visit: Yes Status: Acute Code(s): F10.10 - ALCOHOL ABUSE, UNCOMPLICATED SNOMED Code(s): 71259967 (8) Alcohol intoxication Current Visit: No Status: Acute Code(s): F10.929 - ALCOHOL USE, UNSPECIFIED WITH INTOXICATION, UNSPECIFIED SNOMED Code(s): 32609741 (9) Cirrhosis of liver with ascites Current Visit: No Status: Acute Code(s): K74.60 - UNSPECIFIED CIRRHOSIS OF LIVER; R18.8 - OTHER ASCITES SNOMED Code(s): 73290420 (10) Coagulopathy Current Visit: No Status: Acute Code(s): D68.9 - COAGULATION DEFECT, UNSPECIFIED SNOMED Code(s): 44060853 (11) Esophageal varices, very small per EGD Current Visit: No Status: Acute Code(s): I85.00 - ESOPHAGEAL VARICES WITHOUT BLEEDING SNOMED Code(s): 73229534 (12) Portal hypertension, mild to moderate Current Visit: No Status: Acute Code(s): K76.6 - PORTAL HYPERTENSION SNOMED Code(s): 32820708 (13) possible liver mass per CT, follow up outpatient with GI This is a 44-year-old white male ,known history of esophageal varices, blood loss anemia vomiting, significant alcoholism and cirrhosis. He presented to the emergency room for increased abdominal pain, ascites and black tarry stools. He denies any significant nausea or vomiting. Currently Denies chest pain, palpitations or shortness of breath. GI consulted, EGD pending. Maintained on Sandostatin drip, CIWA protocol. Hemoglobin on admission 11.7 WBC 4.1, platelets 65. INR 1.2 Stool for occult blood negative. Total bili 1.7, AST 266, alk phos 231, ALT 49. CT of abdomen and pelvis noted, similar to prior exam reporting cirrhotic liver, evidence of portal hypertension with large amount of ascites, splenomegaly, difficult to exclude underlying mass within the liver, inflammatory changes at the umbilicus, possibly fat necrosis with no evidence of bowel obstruction. 07/07/2019 yesterday completed EGD reporting 2 cm superficial ulcer in the distal esophagus at the site of previous variceal banding, very small esophageal varices, mild to moderate portal hypertensive gastropathy. Scheduled for paracentesis,. CBC pending. Denies black stools,bleeding. Denies chest pain, palpitations or shortness of breath. Patient has apparently rash which he states is from wearing nickel plated belt buckle which she is ALLERGIC to. Significant clinical improvement. Patient will be discharged home in a stable condition with guarded prognosis, pending paracentesis, CBC results, final DC recommendations and clearance from GI. The impression and plan of care has been dictated as directed. : I performed a history and examination of this patient, discussed the same with the dictator. I agree with the dictator's note ,documented as a scribe. Any additional findings or plans will be noted. Patient Condition at Discharge: Stable Plan - Discharge Summary Discharge Rx Participant: No New Discharge Prescriptions: New diphenhydrAMINE [Benadryl] 25 mg PO Q6H PRN cap PRN Reason: Allergic Reaction Continue Thiamine [Vitamin B-1] 100 mg PO DAILY #30 tablet Multivitamins, Thera [Multivitamin (formulary)] 1 tab PO DAILY Potassium Chloride ER [K-Dur 20] 20 meq PO DAILY #10 tab Magnesium Oxide [Mag-Ox] 400 mg PO DAILY #30 tablet Furosemide [Lasix] 40 mg PO BID Diazepam [Valium] 20 mg PO Q4-6H PRN PRN Reason: Alcohol Withdrawal Spironolactone [Aldactone] 50 mg PO DAILY Lactulose [Cephulac] 20 gm PO BID Hydrocodone/Acetaminophen [Bushnell 10-325] 1 tab PO Q8H PRN PRN Reason: Pain Pantoprazole [Protonix] 40 mg PO DAILY Discharge Medication List Thiamine [Vitamin B-1] 100 mg PO DAILY #30 tablet 09/03/17 [Rx] Multivitamins, Thera [Multivitamin (formulary)] 1 tab PO DAILY 12/14/18 [History] Magnesium Oxide [Mag-Ox] 400 mg PO DAILY #30 tablet 01/22/19 [Rx] Potassium Chloride ER [K-Dur 20] 20 meq PO DAILY #10 tab 01/22/19 [Rx] Furosemide [Lasix] 40 mg PO BID 02/03/19 [History] Diazepam [Valium] 20 mg PO Q4-6H PRN 07/05/19 [History] Hydrocodone/Acetaminophen [Bushnell 10-325] 1 tab PO Q8H PRN 07/05/19 [History] Lactulose [Cephulac] 20 gm PO BID 07/05/19 [History] Pantoprazole [Protonix] 40 mg PO DAILY 07/05/19 [History] Spironolactone [Aldactone] 50 mg PO DAILY 07/05/19 [History] diphenhydrAMINE [Benadryl] 25 mg PO Q6H PRN cap 07/07/19 [Rx] Follow up Appointment(s)/Referral(s): James Meza Jr, DO [Primary Care Provider] - 1-2 days Bernie Huff MD [STAFF PHYSICIAN] - 1 Week Patient Instructions/Handouts: Diet for Stomach Ulcers and Gastritis (ED), Abuse of Alcohol (DC), Upper Endoscopy (DC), Paracentesis (DC)
[2019-07-07] MEDS: ALBUMIN HUMAN 25% 50 ML in EMPTY BAG 1 BAG IVPB SCH ×2 (12:09→12:55)
[2019-07-07 12:14] VITALS: BP 107/62; PULSE 71; RESP 18
--- NOTE | 2019-07-07 13:31 | US ---
EXAMINATION TYPE: US paracentesis abd w/image DATE OF EXAM: 07/07/2019 COMPARISON: NONE HISTORY: Ascites. PROCEDURE: Maximal barrier technique was utilized. The skin overlying a suitable pocket of fluid was localized with ultrasound and the overlying skin was prepped and draped. Ultrasound was utilized with sterile technique. Lidocaine was used for local anesthesia and a skin henry made with a scalpel. Catheter was advanced under direct ultrasound guidance into a suitable pocket of fluid and approximately 8.5 liter s of serous fluid were removed. Catheter was withdrawn and hemostasis achieved. There is no immedia te complication; the patient is discharged in stable condition. IMPRESSION: STATUS POST ULTRASOUND GUIDED PARACENTESIS FOR PALLIATION OF ASCITES. THIS PROCEDURE WA S PERFORMED BY THE UNDERSIGNED.
--- NOTE | 2019-07-07 18:43 | PN ---
PROGRESS NOTE DATE OF SERVICE: July 07, 2019 Patient is a 44-year-old pleasant white male with history of alcoholic cirrhosis of liver, portal hypertension and ascites, admitted to the hospital with maroon-colored stools of 2 days duration. He underwent an upper endoscopy yesterday that showed a small esophageal varices and distal esophageal ulcer as well as portal hypertensive gastropathy. He underwent large-volume paracentesis and 5 L of fluid was removed and was infused with IV albumin. The patient remains on diuretics with Lasix 40 mg twice daily and Aldactone 50 mg daily. He is doing better. He is going to be discharged home today. PHYSICAL EXAMINATION: Appears comfortable. Not in apparent distress. Blood pressure 107/62, pulse is 71, temperature afebrile. HEENT examination unremarkable. Conjunctivae pink. Sclerae anicteric. Oral cavity no lesions. Neck: No JVD or lymph node enlargement. Chest was clear to auscultation. HEART: Regular rate and rhythm. ABDOMEN: Soft. Bowel sounds are positive. No organomegaly. Mild tenderness in the right lower quadrant area. EXTREMITIES: No pedal edema. Skin no rashes. NEUROLOGIC: Alert and oriented x3. No focal deficits. LABS: Done today WBC 2.4, hemoglobin 10.7, platelets 57,000. INR is 1.4. T-bilirubin is 2.1, AST 158, ALT 32, alk phos was 177. IMPRESSION: 1. Acute gastrointestinal bleed, status post EGD yesterday which revealed small distal esophageal varices and an ulcer in the distal esophagus as well as portal hypertensive gastropathy. No active bleeding identified. On Protonix 40 mg twice daily, doing better. No further bleeding. 2. Alcoholic cirrhosis of the liver with portal hypertension. 3. Ascites secondary to portal hypertension status post large-volume paracentesis and 5.5 L removed today. The patient doing better. Remains on Lasix 40 mg twice daily and Aldactone 50 mg twice daily. RECOMMENDATION: 1. Continue with Lasix 40 mg twice daily. 2. Aldactone 50 mg twice daily. 3. Low-salt diet. 4. He can be continue with Protonix 40 mg twice daily. 5. Abstinence from alcohol. 6. Follow up in office in 2 weeks. Thank you for this consultation. MMODL / IJN: [id number] /
[2019-07-07] MEDS ORDERED: TRIAMCINOLONE ACET 0.5% CREAM 15 GM TUBE TOPICAL SCH (21:00)
== END 2019-07-07 16:19 | disposition home or self-care (01) ==
LOC: EC 13:34 → 4SSUR 16:37 → 3SCARD 07-06 05:03
PROVIDERS: ADMIT Family Medicine; ATTEND Family Medicine
DX: R10.9 Unspecified abdominal pain (principal); K22.10 Ulcer of esophagus without bleeding; K70.31 Alcoholic cirrhosis of liver with ascites; I85.10 Secondary esophageal varices without bleeding; F10.229 Alcohol dependence with intoxication, unspecified; Y90.8 Blood alcohol level of 240 mg/100 ml or more; K76.6 Portal hypertension; K42.9 Umbilical hernia without obstruction or gangrene; J45.909 Unspecified asthma, uncomplicated; F43.10 Post-traumatic stress disorder, unspecified; F17.200 Nicotine dependence, unspecified, uncomplicated; D68.4 Acquired coagulation factor deficiency; D50.0 Iron deficiency anemia secondary to blood loss (chronic); R16.1 Splenomegaly, not elsewhere classified; L40.9 Psoriasis, unspecified; Z87.442 Personal history of urinary calculi; Z87.11 Personal history of peptic ulcer disease; Z86.14 Personal history of Methicillin resistant Staphylococcus aureus infection; Z79.899 Other long term (current) drug therapy; Z90.49 Acquired absence of other specified parts of digestive tract; Z82.49 Family history of ischemic heart disease and other diseases of the circulatory system
CPT/HCPCS: 96376 ×3; 96361 ×2; 93005; 96368; 96365; 96366 ×2; 96375; 99285; 36415; 86900; 86901; 80053 ×2; 82150; 83605; 83690; 83735; 84100; 84484; 85025 ×2; 85027; 85049; 85610 ×2; 85730; 86850; 82272; 81001; 49083; 74177; 43235; G0378 ×4; G0480; J2060 ×2; J2001; J2354; J0696; P9047; J2704; C9113 ×3; J1170 ×3; Q9967; 80320

== ENCOUNTER → 2019-07-20 | Outpatient (CLI) | payer OTHER ==
--- NOTE | 2019-07-20 11:38 | CT ---
EXAMINATION TYPE: CT abdomen pelvis wo con DATE OF EXAM: 07/20/2019 COMPARISON: 07/05/2019 HISTORY: 44-year-old male a Right flank pain CT DLP: 1016 mGycm. Automated exposure control for dose reduction was used. TECHNIQUE: Contiguous axial scanning of the abdomen and pelvis without IV contrast. Coronal and sagit robby reconstructions performed. FINDINGS: Heart size without pericardial effusion. Prominent bands of atelectasis posterior lung bases. No pleu ral effusion. Some nodularity at the GE junction could reflect underlying gastroesophageal varices. Redemonstrates cirrhotic morphology of the liver with extensive heterogeneous density. Underlying mas s cannot be excluded on this noncontrast study. Cholecystectomy clips. Prominent varices and collateral vessels in the upper abdomen. Redemonstrated moderate abdominopelvic ascites. Spleen is enlarged measuring 17.6 cm. 3 mm nonobstructive right renal calculus. Approximately 5 nonobstructive left renal calculi measuring up to 5 mm. No hydronephrosis. Generalized mesenteric haziness/edema. Overall ascites fluid has decreased from 07/05/2019 as has the herniating fluid at the umbilicus. No dilated small bowel or free air. Mild stool burden. Ascites extends across a direct left inguinal hernia. Moderate to large ascites within the upper left scrotal sac. Bladder partially distended. Moderate pelvic ascites. Bones: Mild degenerative spurring of the hips. No osseous destructive process. IMPRESSION: 1. Cirrhosis and portal venous hypertension (splenomegaly at 17.6 cm, multiple upper abdominal varic es and collateral vessels, suspected lower gastroesophageal varices, and moderate abdominal pelvic as cites though overall decreased from 07/05/2019) disease. 2. Extensive heterogeneous density of the liver. Underlying liver lesions cannot be excluded on this noncontrast study. 3. Bilateral nonobstructive renal calculi measuring up to 3 mm on the right and 5 mm on the left. 4. Moderate-sized ascites filled direct left inguinal hernia.
== END | disposition home or self-care (01) ==
LOC: RADCTMAIN 10:59
PROVIDERS: ATTEND Family Medicine
DX: N20.0 Calculus of kidney (principal); K74.60 Unspecified cirrhosis of liver; R18.8 Other ascites; K76.6 Portal hypertension
CPT/HCPCS: 74176

== ENCOUNTER 2019-07-26 04:22 | Inpatient (IN) | payer OTHER ==
[2019-07-26] MEDS ORDERED: HYDROmorphone 1 MG/ML 1 ML SYRINGE IVP STA (04:42)
--- NOTE | 2019-07-26 04:47 | ED ---
General Adult HPI - General Chief complaint: Urogenital Stated complaint: Hernia pain Time Seen by Provider: 07/26/19 04:36 Source: patient, family Mode of arrival: ambulatory Limitations: no limitations - History of Present Illness Onset/Timin -: hour(s) Location: abdomen Radiation: other (() Severity scale (1-10): 10 Quality: aching Consistency: constant Improves with: none Worsens with: none Associated Symptoms: nausea/vomiting Treatments Prior to Arrival: none - Related Data Home Medications Medication Instructions Recorded Confirmed Multivitamins, Thera [Multivitamin 1 tab PO DAILY 12/14/18 08/07/19 (formulary)] Furosemide [Lasix] 40 mg PO BID 02/03/19 08/07/19 Lactulose [Cephulac] 20 gm PO BID 07/05/19 08/07/19 Pantoprazole [Protonix] 40 mg PO DAILY 07/05/19 08/07/19 Spironolactone [Aldactone] 50 mg PO DAILY 07/05/19 08/07/19 Previous Rx's Medication Instructions Recorded Thiamine [Vitamin B-1] 100 mg PO DAILY #30 tablet 09/03/17 Magnesium Oxide [Mag-Ox] 400 mg PO DAILY #30 tablet 01/22/19 Potassium Chloride ER [K-Dur 20] 20 meq PO DAILY #10 tab 01/22/19 Allergies Allergy/AdvReac Type Severity Reaction Status Date / Time No Known Allergies Allergy Verified 08/07/19 11:33 Review of Systems ROS Statement: Those systems with pertinent positive or pertinent negative responses have been documented in the HPI. ROS Other: All systems not noted in ROS Statement are negative. Constitutional: Denies: fever, chills Respiratory: Denies: cough, dyspnea Cardiovascular: Denies: chest pain, palpitations Gastrointestinal: Reports: abdominal pain, nausea. Denies: vomiting, diarrhea, constipation, melena, hematochezia Genitourinary: Denies: dysuria, hematuria, testicular pain Musculoskeletal: Denies: back pain Skin: Denies: rash Neurological: Denies: headache, weakness Past Medical History Past Medical History: Asthma, GI Bleed, Liver Disease, Osteoarthritis (OA), Pneumonia, Skin Disorder Additional Past Medical History / Comment(s): liver cirrhosis, abdominal ascites, pancreatitis, past multiple gallstones, nephrolithiasis, chronic anemia, esophageal varices, hx urinating blood and kidneys stone, bleeding ulcers, hernia, psoriasis History of Any Multi-Drug Resistant Organisms: MRSA Date of last positivie culture/infection: 12/09/13 MDRO Source:: Right first finger Past Surgical History: Appendectomy, Cholecystectomy, Hernia Repair, Orthopedic Surgery Additional Past Surgical History / Comment(s): EGD/colonoscopy, paracentesis, right hand tendon repair, right knee arthroscopy, cystoscopy for kidney stone removal, right hand ring finger surgery. surgery for umbilical hernia, Past Anesthesia/Blood Transfusion Reactions: Previous Problems w/ Anesthesia Additional Past Anesthesia/Blood Transfusion Reaction / Comment(s): Woke up during scope procedure. Past Psychological History: PTSD Smoking Status: Current every day smoker Past Alcohol Use History: Abuse, Daily, Heavy Past Drug Use History: None Reported - Past Family History Mother Family Medical History: No Reported History Father Additional Family Medical History / Comment(s): Prostate issues grandpa. Brain aneurysm father. General Exam Limitations: no limitations General appearance: alert, in distress Head exam: Present: atraumatic, normocephalic Eye exam: Present: normal appearance. Absent: scleral icterus, conjunctival injection ENT exam: Present: normal oropharynx Neck exam: Present: normal inspection Respiratory exam: Present: normal lung sounds bilaterally. Absent: respiratory distress, wheezes, rales, rhonchi, stridor Cardiovascular Exam: Present: regular rate, normal rhythm, normal heart sounds. Absent: systolic murmur, diastolic murmur, rubs, gallop GI/Abdominal exam: Present: soft, hernia (Left groin). Absent: distended, t enderness, guarding, rebound, rigid, mass Extremities exam: Present: normal inspection, normal capillary refill. Absent: pedal edema, calf tenderness Back exam: Present: normal inspection. Absent: CVA tenderness (R), CVA tenderness (L) Neurological exam: Present: alert Skin exam: Present: warm, dry, intact, normal color. Absent: rash Course Vital Signs 07/26/19 07/26/19 07/26/19 04:26 05:48 05:49 Temperature 97.5 F L Pulse Rate 73 82 77 Respiratory 18 18 16 Rate Blood Pressure 146/79 143/85 132/72 O2 Sat by Pulse 99 98 96 Oximetry 07/26/19 07/26/19 07/26/19 05:50 06:00 06:15 Temperature Pulse Rate 73 78 73 Respiratory 18 16 18 Rate Blood Pressure 143/63 141/75 145/72 O2 Sat by Pulse 95 98 98 Oximetry 07/26/19 07/26/19 07/26/19 06:30 06:45 07:00 Temperature Pulse Rate 72 72 71 Respiratory 16 16 16 Rate Blood Pressure 142/69 154/101 144/73 O2 Sat by Pulse 97 97 97 Oximetry 07/26/19 07:34 Temperature 97.4 F L Pulse Rate 67 Respiratory 18 Rate Blood Pressure 138/73 O2 Sat by Pulse 96 Oximetry - Reevaluation(s) Reevaluation #1: 07/26/19 06:00 Patient's 44-year-old man with incarcerated left inguinal hernia. I did attempt to reduce the hernia at the bedside, the patient is having pain and resisting attempts. I did give dose of Dilaudid and Versed per patient's request and attempt again but he is still resisting reduction. I discussed case with Dr. Aranda, who states that he will come and see the patient. Medical Decision Making - Lab Data Result diagrams: 08/03/19 09:02 08/03/19 09:02 Lab Results 07/26/19 07/26/19 07/26/19 Range/Units 05:15 05:15 05:15 WBC 11.6 H (3.8-10.6) k/uL RBC 4.24 L (4.30-5.90) m/uL Hgb 12.9 L (13.0-17.5) gm/dL Hct 40.6 (39.0-53.0) % MCV 95.7 (80.0-100.0) fL MCH 30.4 (25.0-35.0) pg MCHC 31.8 (31.0-37.0) g/dL RDW 15.9 H (11.5-15.5) % Plt Count 203 D (150-450) k/uL Neutrophils % 72 % Lymphocytes % 14 % Monocytes % 9 % Eosinophils % 2 % Basophils % 1 % Neutrophils # 8.3 H (1.3-7.7) k/uL Lymphocytes # 1.6 (1.0-4.8) k/uL Monocytes # 1.1 H (0-1.0) k/uL Eosinophils # 0.2 (0-0.7) k/uL Basophils # 0.2 (0-0.2) k/uL Sodium 140 (137-145) mmol/L Potassium 4.1 (3.5-5.1) mmol/L Chloride 104 (98-107) mmol/L Carbon Dioxide 21 L (22-30) mmol/L Anion Gap 15 mmol/L BUN 9 (9-20) mg/dL Creatinine 0.55 L (0.66-1.25) mg/dL Est GFR (CKD-EPI)AfAm >90 (>60 ml/min/1.73 sqM) Est GFR (CKD-EPI)NonAf >90 (>60 ml/min/1.73 sqM) Glucose 134 H (74-99) mg/dL Lactic Ac Sepsis Rflx Plasma Lactic Acid Balaji 5.1 H* (0.7-2.0) mmol/L Calcium 9.4 (8.4-10.2) mg/dL Total Bilirubin 1.6 H (0.2-1.3) mg/dL AST 116 H (17-59) U/L ALT 26 (4-49) U/L Alkaline Phosphatase 139 H (38-126) U/L Total Protein 8.2 (6.3-8.2) g/dL Albumin 3.9 (3.5-5.0) g/dL Amylase 47 (30-110) U/L Lipase 439 H (23-300) U/L Serum Alcohol mg/dL 07/26/19 07/26/19 Range/Units 05:15 05:43 WBC (3.8-10.6) k/uL RBC (4.30-5.90) m/uL Hgb (13.0-17.5) gm/dL Hct (39.0-53.0) % MCV (80.0-100.0) fL MCH (25.0-35.0) pg MCHC (31.0-37.0) g/dL RDW (11.5-15.5) % Plt Count (150-450) k/uL Neutrophils % % Lymphocytes % % Monocytes % % Eosinophils % % Basophils % % Neutrophils # (1.3-7.7) k/uL Lymphocytes # (1.0-4.8) k/uL Monocytes # (0-1.0) k/uL Eosinophils # (0-0.7) k/uL Basophils # (0-0.2) k/uL Sodium (137-145) mmol/L Potassium (3.5-5.1) mmol/L Chloride (98-107) mmol/L Carbon Dioxide (22-30) mmol/L Anion Gap mmol/L BUN (9-20) mg/dL Creatinine (0.66-1.25) mg/dL Est GFR (CKD-EPI)AfAm (>60 ml/min/1.73 sqM) Est GFR (CKD-EPI)NonAf (>60 ml/min/1.73 sqM) Glucose (74-99) mg/dL Lactic Ac Sepsis Rflx Y Plasma Lactic Acid Balaji (0.7-2.0) mmol/L Calcium (8.4-10.2) mg/dL Total Bilirubin (0.2-1.3) mg/dL AST (17-59) U/L ALT (4-49) U/L Alkaline Phosphatase (38-126) U/L Total Protein (6.3-8.2) g/dL Albumin (3.5-5.0) g/dL Amylase (30-110) U/L Lipase (23-300) U/L Serum Alcohol 106 mg/dL Disposition Clinical Impression: Irreducible left inguinal hernia, Lactic acidosis Disposition: ADMITTED IP TO THIS HOSP Condition: Fair Is patient prescribed a controlled substance at d/c from ED?: No
[2019-07-26] MEDS ORDERED: MIDAZOLAM 1 MG/ML 5 ML VIAL IV STA (05:22)
[2019-07-26 05:28] LABS: Basophils # (A) 0.2 k/uL (0-0.2); Basophils % (A) 1 %; Eosinophils # (A) 0.2 k/uL (0-0.7); Eosinophils % (A) 2 %; HCT 40.6 % (39.0-53.0); HGB 12.9 gm/dL (13.0-17.5); Lymphocytes # (A) 1.6 k/uL (1.0-4.8); Lymphocytes % (A) 14 %; MCH 30.4 pg (25.0-35.0); MCHC 31.8 g/dL (31.0-37.0); MCV 95.7 fL (80.0-100.0); Mean Platelet Volume 8.6; Monocytes # (A) 1.1 k/uL (0-1.0); Monocytes % (A) 9 %; Neutrophils # (A) 8.3 k/uL (1.3-7.7); Neutrophils % (A) 72 %; RBC 4.24 m/uL (4.30-5.90); RDW 15.9 % (11.5-15.5); WBC 11.6 k/uL (3.8-10.6)
[2019-07-26 05:39] LABS: African American GFR (CKD) >90 (>60 ml/min/1.73 sqM); Albumin 3.9 g/dL (3.5-5.0); Amylase 47 U/L (30-110); Anion Gap 15 mmol/L; Calcium 9.4 mg/dL (8.4-10.2); Carbon Dioxide 21 mmol/L (22-30); Chloride 104 mmol/L (98-107); Glucose 134 mg/dL (74-99); Non-African American GFR(CKD) >90 (>60 ml/min/1.73 sqM); Sodium 140 mmol/L (137-145); Total Bilirubin 1.6 mg/dL (0.2-1.3); Total Protein 8.2 g/dL (6.3-8.2)
[2019-07-26 05:40] LABS: ALT 26 U/L (4-49); AST 116 U/L (17-59); Alkaline Phosphatase 139 U/L (38-126); Blood Urea Nitrogen 9 mg/dL (9-20); Potassium 4.1 mmol/L (3.5-5.1)
[2019-07-26 05:42] LABS: Platelet Count 203 k/uL (150-450)
[2019-07-26] MEDS ORDERED: AMPICILLIN-SULBACTAM 3 GM in SODIUM CHLORIDE 0.9% 100 ML IVPB STA (05:54)
[2019-07-26] MEDS ORDERED: MORPHINE SULFATE 4 MG/ML SYRINGE IV STA (05:57)
[2019-07-26] MEDS ORDERED: SODIUM CHLORIDE 0.9% 1,000 ML IV ONE (06:01)
[2019-07-26] MEDS ORDERED: ONDANSETRON 4 MG/2 ML VIAL IVP PRN ×2 (06:59→08:34)
[2019-07-26] MEDS ORDERED: NALOXONE 0.4 MG/ML 1 ML VIAL IV PRN ×2 (06:59→15:45)
[2019-07-26] MEDS ORDERED: THIAMINE 100 MG/ML 2 ML VIAL IM STA (07:03)
[2019-07-26] MEDS ORDERED: LORazepam 2 MG/ML INJ IV PRN ×2 (07:03)
--- NOTE | 2019-07-26 07:12 | CT ---
EXAM: CT Abdomen and Pelvis With Intravenous Contrast CLINICAL HISTORY: Left inguinal hernia TECHNIQUE: Axial computed tomography images of the abdomen and pelvis with intravenous contrast. CTDI is 20.9 mGy and DLP is 1013 mGy-cm. This CT exam was performed using one or more of the following dose reduction techniques: automated exposure control, adjustment of the mA and/or kV according to patient size, and/or use of iterative reconstruction technique. COMPARISON: No relevant prior studies available. FINDINGS: Lung bases: Unremarkable. No mass. No consolidation. ABDOMEN: Liver: There is cirrhosis. No focal hepatic mass is identified. Gallbladder and bile ducts: Previous cholecystectomy. No ductal dilation. Pancreas: Unremarkable. No mass. No ductal dilation. Spleen: Splenomegaly with the spleen measuring 15.8 cm in length Adrenals: Unremarkable. No mass. Kidneys and ureters: 2 small nonobstructing calculi in the lower pole of the left kidney. No solid mass. No hydronephrosis. Stomach and bowel: Large left inguinal hernia containing fluid and a small bowel loop. This appears to be causing at least partial small bowel obstruction with multiple small bowel loops measuring over 3 cm. PELVIS: Appendix: No appendix is identified. Bladder: Unremarkable. No mass. Reproductive: Unremarkable as visualized. ABDOMEN and PELVIS: Intraperitoneal space: Moderate amount of ascites. No free air. Bones/joints: No acute fracture. No dislocation. Soft tissues: See above. Vasculature: Large upper abdominal varices extending into the paraesophageal region. Lymph nodes: Unremarkable. No enlarged lymph nodes. IMPRESSION: Large left inguinal hernia containing fluid and small bowel loop causing small bowel obstruction. Cirrhosis, splenomegaly, ascites and varices..
[2019-07-26] MEDS: SODIUM CHLORIDE 0.9% 1,000 ML IV SCH ×3 (07:45→22:11)
[2019-07-26] MEDS: HYDROmorphone 1 MG/ML 1 ML SYRINGE IVP PRN ×5 (07:46→23:50)
[2019-07-26 07:49] LABS: Appearance,Urine Clear (Clear); Bilirubin,Urine Negative (Negative); Blood,Urine Negative (Negative); Color,Urine Yellow; Glucose,Urine (UA) Negative (Negative); Ketones,Urine Negative (Negative); Leukocyte Esterase,Urine Negative (Negative); Nitrite,Urine Negative (Negative); PH, Urine 7.5 (5.0-8.0); Protein,Urine Negative (Negative); Specific Gravity,Urine 1.019 (1.001-1.035)
--- NOTE | 2019-07-26 10:41 | P.GSHP ---
<Leilani Dickey A - Last Filed: 07/26/19 10:37> History of Present Illness H&P Date: 07/26/19 CHIEF COMPLAINT: Abdominal pain HISTORY OF PRESENT ILLNESS: 44-year-old male who presents emergency room the chief complaint of abdominal pain. Patient reports a known hernia to his left groin for many months. He states the pain has increased over the last couple days. He is currently rating his pain 10 out of 10. He reports passing flatus and having a small bowel movement yesterday. He reports nausea and vomiting overnight. PAST MEDICAL HISTORY: See list. PAST SURGICAL HISTORY: See list. SOCIAL HISTORY: History of alcohol abuse. REVIEW OF SYSTEMS: CONSTITUTIONAL: Denies fever or chills. HEENT: Denies blurred vision, vision changes, or eye pain. Denies hemoptysis CARDIOVASCULAR: Denies chest pain or pressure. RESPIRATORY: No shortness of breath. GASTROINTESTINAL: Refer to [facility] for pertinent findings HEMATOLOGIC: Denies bleeding disorders. GENITOURINARY: Denies any blood in urine. SKIN: Denies pruitis. Denies rash. PHYSICAL EXAM: VITAL SIGNS: Reviewed. GENERAL: Well-developed in no acute distress. HEENT: No sclera icterus. Extraocular movements grossly intact. Moist buccal mucosa. Head is atraumatic, normocephalic. ABDOMEN: Soft. Nondistended. Large left inguinal hernia noted. NEUROLOGIC: Alert and oriented. Cranial nerves II through XII grossly intact. LABORATORY DATA: WC 11.6. Hemoglobin 12.9. Platelet count 203. Sodium 140. Potassium 4.1. BUN 9. Creatinine 0.55. Lactic acid 5.1. Repeat 3.0. IMAGING: CT of the abdomen and pelvis: Large left inguinal hernia containing fluid and small bowel loops. This appears to be causing a partial small bowel obstruction with multiple small polyps measuring over 3cm. ASSESSMENT: 1. Abdominal pain 2. Large left inguinal hernia causing small bowel obstruction PLAN: Nothing by mouth. Continue IV fluids Empiric antibiotics Continue [place] protocol Consult Dr. Meza for medical management Patient tentatively scheduled for open repair of left inguinal hernia today with Dr. Aranda Nurse practitioner note has been reviewed by physician. Signing provider agrees with the documented findings, assessment, and plan of care. Past Medical History Past Medical History: Asthma, GI Bleed, Liver Disease, Osteoarthritis (OA), Pneumonia, Skin Disorder Additional Past Medical History / Comment(s): liver cirrhosis, abdominal ascites, pancreatitis, past multiple gallstones, nephrolithiasis, chronic anemia, esophageal varices, hx urinating blood and kidneys stone, bleeding ulcers, hernia, psoriasis History of Any Multi-Drug Resistant Organisms: MRSA Date of last positivie culture/infection: 12/09/13 MDRO Source:: Right first finger Past Surgical History: Appendectomy, Cholecystectomy, Hernia Repair, Orthopedic Surgery Additional Past Surgical History / Comment(s): EGD/colonoscopy, paracentesis, right hand tendon repair, right knee arthroscopy, cystoscopy for kidney stone removal, right hand ring finger surgery. surgery for umbilical hernia, Past Anesthesia/Blood Transfusion Reactions: Previous Problems w/ Anesthesia Additional Past Anesthesia/Blood Transfusion Reaction / Comment(s): Woke up during scope procedure. Past Psychological History: PTSD Smoking Status: Current every day smoker Past Alcohol Use History: Abuse, Daily, Heavy Past Drug Use History: None Reported - Past Family History Mother Family Medical History: No Reported History Father Additional Family Medical History / Comment(s): Prostate issues grandpa. Brain aneurysm father. Medications and Allergies Home Medications Medication Instructions Recorded Confirmed Type Thiamine [Vitamin B-1] 100 mg PO DAILY #30 tablet 09/03/17 07/26/19 Rx Multivitamins, Thera [Multivitamin 1 tab PO DAILY 12/14/18 07/26/19 History (formulary)] Magnesium Oxide [Mag-Ox] 400 mg PO DAILY #30 tablet 01/22/19 07/26/19 Rx Potassium Chloride ER [K-Dur 20] 20 meq PO DAILY #10 tab 01/22/19 07/26/19 Rx Furosemide [Lasix] 40 mg PO BID 02/03/19 07/26/19 History Hydrocodone/Acetaminophen [[place] 1 tab PO Q8H PRN 07/05/19 07/26/19 History 10-325] Lactulose [Cephulac] 20 gm PO BID 07/05/19 07/26/19 History Pantoprazole [Protonix] 40 mg PO DAILY 07/05/19 07/26/19 History Spironolactone [Aldactone] 50 mg PO DAILY 07/05/19 07/26/19 History diphenhydrAMINE [Benadryl] 25 mg PO Q6H PRN cap 07/07/19 07/26/19 Rx Allergies Allergy/AdvReac Type Severity Reaction Status Date / Time No Known Allergies Allergy Verified 07/26/19 08:27 Surgical - Exam Vital Signs Temp Pulse Resp BP Pulse Ox 97.5 F L 73 18 146/79 99 07/26/19 04:26 07/26/19 04:26 07/26/19 04:26 07/26/19 04:26 07/26/19 04:26 Results - Labs 07/26/19 05:15 07/26/19 05:15 Abnormal Lab Results - Last 24 Hours (Table) 07/26/19 07/26/19 07/26/19 Range/Units 05:15 05:15 05:15 WBC 11.6 H (3.8-10.6) k/uL RBC 4.24 L (4.30-5.90) m/uL Hgb 12.9 L (13.0-17.5) gm/dL RDW 15.9 H (11.5-15.5) % Neutrophils # 8.3 H (1.3-7.7) k/uL Monocytes # 1.1 H (0-1.0) k/uL Carbon Dioxide 21 L (22-30) mmol/L Creatinine 0.55 L (0.66-1.25) mg/dL Glucose 134 H (74-99) mg/dL Plasma Lactic Acid Balaji 5.1 H* (0.7-2.0) mmol/L Total Bilirubin 1.6 H (0.2-1.3) mg/dL AST 116 H (17-59) U/L Alkaline Phosphatase 139 H (38-126) U/L Lipase 439 H (23-300) U/L Diabetes panel 07/26/19 Range/Units 05:15 Sodium 140 (137-145) mmol/L Potassium 4.1 (3.5-5.1) mmol/L Chloride 104 (98-107) mmol/L Carbon Dioxide 21 L (22-30) mmol/L BUN 9 (9-20) mg/dL Creatinine 0.55 L (0.66-1.25) mg/dL Glucose 134 H (74-99) mg/dL Calcium 9.4 (8.4-10.2) mg/dL AST 116 H (17-59) U/L ALT 26 (4-49) U/L Alkaline Phosphatase 139 H (38-126) U/L Total Protein 8.2 (6.3-8.2) g/dL Albumin 3.9 (3.5-5.0) g/dL Calcium panel 07/26/19 Range/Units 05:15 Calcium 9.4 (8.4-10.2) mg/dL Albumin 3.9 (3.5-5.0) g/dL Pituitary panel 07/26/19 Range/Units 05:15 Sodium 140 (137-145) mmol/L Potassium 4.1 (3.5-5.1) mmol/L Chloride 104 (98-107) mmol/L Carbon Dioxide 21 L (22-30) mmol/L BUN 9 (9-20) mg/dL Creatinine 0.55 L (0.66-1.25) mg/dL Glucose 134 H (74-99) mg/dL Calcium 9.4 (8.4-10.2) mg/dL Adrenal panel 07/26/19 Range/Units 05:15 Sodium 140 (137-145) mmol/L Potassium 4.1 (3.5-5.1) mmol/L Chloride 104 (98-107) mmol/L Carbon Dioxide 21 L (22-30) mmol/L BUN 9 (9-20) mg/dL Creatinine 0.55 L (0.66-1.25) mg/dL Glucose 134 H (74-99) mg/dL Calcium 9.4 (8.4-10.2) mg/dL Total Bilirubin 1.6 H (0.2-1.3) mg/dL AST 116 H (17-59) U/L ALT 26 (4-49) U/L Alkaline Phosphatase 139 H (38-126) U/L Total Protein 8.2 (6.3-8.2) g/dL Albumin 3.9 (3.5-5.0) g/dL <Jerson Aranda - Last Filed: 07/26/19 14:06> Surgical - Exam Vital Signs Temp Pulse Resp BP Pulse Ox 97.5 F L 73 18 146/79 99 07/26/19 04:26 07/26/19 04:26 07/26/19 04:26 07/26/19 04:26 07/26/19 04:26 Results - Labs 07/26/19 05:15 07/26/19 05:15 Abnormal Lab Results - Last 24 Hours (Table) 07/26/19 07/26/19 07/26/19 Range/Units 05:15 05:15 05:15 WBC 11.6 H (3.8-10.6) k/uL RBC 4.24 L (4.30-5.90) m/uL Hgb 12.9 L (13.0-17.5) gm/dL RDW 15.9 H (11.5-15.5) % Neutrophils # 8.3 H (1.3-7.7) k/uL Monocytes # 1.1 H (0-1.0) k/uL Carbon Dioxide 21 L (22-30) mmol/L Creatinine 0.55 L (0.66-1.25) mg/dL Glucose 134 H (74-99) mg/dL Plasma Lactic Acid Balaji 5.1 H* (0.7-2.0) mmol/L Total Bilirubin 1.6 H (0.2-1.3) mg/dL AST 116 H (17-59) U/L Alkaline Phosphatase 139 H (38-126) U/L Lipase 439 H (23-300) U/L 07/26/19 Range/Units 09:18 WBC (3.8-10.6) k/uL RBC (4.30-5.90) m/uL Hgb (13.0-17.5) gm/dL RDW (11.5-15.5) % Neutrophils # (1.3-7.7) k/uL Monocytes # (0-1.0) k/uL Carbon Dioxide (22-30) mmol/L Creatinine (0.66-1.25) mg/dL Glucose (74-99) mg/dL Plasma Lactic Acid Balaji 3.0 H* (0.7-2.0) mmol/L Total Bilirubin (0.2-1.3) mg/dL AST (17-59) U/L Alkaline Phosphatase (38-126) U/L Lipase (23-300) U/L Diabetes panel 07/26/19 Range/Units 05:15 Sodium 140 (137-145) mmol/L Potassium 4.1 (3.5-5.1) mmol/L Chloride 104 (98-107) mmol/L Carbon Dioxide 21 L (22-30) mmol/L BUN 9 (9-20) mg/dL Creatinine 0.55 L (0.66-1.25) mg/dL Glucose 134 H (74-99) mg/dL Calcium 9.4 (8.4-10.2) mg/dL AST 116 H (17-59) U/L ALT 26 (4-49) U/L Alkaline Phosphatase 139 H (38-126) U/L Total Protein 8.2 (6.3-8.2) g/dL Albumin 3.9 (3.5-5.0) g/dL Calcium panel 07/26/19 Range/Units 05:15 Calcium 9.4 (8.4-10.2) mg/dL Albumin 3.9 (3.5-5.0) g/dL Pituitary panel 07/26/19 Range/Units 05:15 Sodium 140 (137-145) mmol/L Potassium 4.1 (3.5-5.1) mmol/L Chloride 104 (98-107) mmol/L Carbon Dioxide 21 L (22-30) mmol/L BUN 9 (9-20) mg/dL Creatinine 0.55 L (0.66-1.25) mg/dL Glucose 134 H (74-99) mg/dL Calcium 9.4 (8.4-10.2) mg/dL Adrenal panel 07/26/19 Range/Units 05:15 Sodium 140 (137-145) mmol/L Potassium 4.1 (3.5-5.1) mmol/L Chloride 104 (98-107) mmol/L Carbon Dioxide 21 L (22-30) mmol/L BUN 9 (9-20) mg/dL Creatinine 0.55 L (0.66-1.25) mg/dL Glucose 134 H (74-99) mg/dL Calcium 9.4 (8.4-10.2) mg/dL Total Bilirubin 1.6 H (0.2-1.3) mg/dL AST 116 H (17-59) U/L ALT 26 (4-49) U/L Alkaline Phosphatase 139 H (38-126) U/L Total Protein 8.2 (6.3-8.2) g/dL Albumin 3.9 (3.5-5.0) g/dL Assessment and Plan Assessment: Incarcerated left femoral hernia. Patient will undergo open repair. Patient has a partial obstruction
[2019-07-26] MEDS ORDERED: IV FLUID CONTINUATION 1,000 ML IV ONE (14:00)
[2019-07-26] MEDS ORDERED: DEXAMETHASONE SOD PHOSPHATE 10 MG/ML 1 ML VIAL IV ONE (14:06)
[2019-07-26] MEDS ORDERED: MIDAZOLAM 2 MG/2 ML VIAL IV ONE (14:22)
[2019-07-26] MEDS ORDERED: fentaNYL (PF) 50 MCG/ML 2 ML AMP IV ONE (14:23)
[2019-07-26] MEDS ORDERED: ROPIVACAINE 5 MG/ML 30 ML VIAL ONE (14:41)
[2019-07-26] MEDS ORDERED: PROPOFOL 10 MG/ML 20 ML VIAL IV ONE (14:41)
[2019-07-26] MEDS ORDERED: NEOSTIGMINE 1 MG/ML 10 ML VIAL ONE (14:41)
[2019-07-26] MEDS ORDERED: LIDOCAINE 1% INJ 10MG/ML (20 ML MDV) ONE (14:41)
[2019-07-26] MEDS ORDERED: ROCURONIUM BROMIDE 10 MG/ML 5 ML VIAL IV ONE (14:41)
[2019-07-26] MEDS ORDERED: fentaNYL (PF) 50 MCG/ML 2 ML AMP ONE (14:41)
[2019-07-26] MEDS ORDERED: SUCCINYLCHOLINE CHLORIDE 100 MG/5 ML SYR IV ONE (14:41)
[2019-07-26] MEDS ORDERED: GLYCOPYRROLATE 0.2 MG/ML 2 ML VIAL ONE (14:41)
[2019-07-26] MEDS ORDERED: LACTATED RINGERS 1,000 ML IV ONE ×4 (14:44→16:00)
[2019-07-26] MEDS ORDERED: HYDROmorphone 0.5 MG/0.5 ML SYRINGE IVP PRN (15:45)
[2019-07-26] MEDS ORDERED: METOCLOPRAMIDE 5 MG/ML 2 ML VIAL IVP PRN (15:45)
--- NOTE | 2019-07-26 15:54 | P.OP ---
Date of Procedure: 07/26/19 Preoperative Diagnosis: Incarcerated left inguinal hernia Postoperative Diagnosis: Strangulated left inguinal hernia Procedure(s) Performed: Exploratory laparotomy small bowel resection repair of strangulated left inguinal hernia Anesthesia: LISETTE Surgeon: Jerson Aranda Estimated Blood Loss (ml): 30 Pathology: other (Strangulated of small bowel) Condition: stable Disposition: PACU Description of Procedure: The patient's placed in the operative table in supine position. He received general anesthesia. His abdomen was prepped and draped usual fashion. A standard left inguinal hernia incision was made. Using left cautery and subcutaneous tissues were divided and then the fascia external oblique was exposed. The fascia was then opened with Metastases months scissors. The patient had a large scrotal hernia. Using blunt dissection the hernia sac was dissected free and brought up into the wound. The hernia sac was opened. There was serosanguineous fluid within the hernia sac. There was necrotic small bowel in hernia sac. At this point a exploratory laparotomy performed. The abdomen was opened in the low midline incision. Which cause used to divide through the abdominal wall. The Book[place] tract with wound. The small bowel was seen entering into the left internal hernia. Using a pair metastases months scissors the neck of the hernia was opened and then the small bowel was reduced into the pleural cavity. The small bowel is nonviable. This point the small bowel transected proximally distally with a GI stapler and then using the Enseal device the mesentery the bowel was divided and sealed with the Enseal device. The bowel was then anastomosed in [id number] functional end-to-end staple anastomosis using a NEGIN and TA staplers. A 3-0 GI silk sutures used as a crotch stitch. The window mesentery was closed. GI silk suture. Due to the risk of infection no mesh was used for repair. The hernia was repaired using 0 Ethibond suture. The Lovingston's fascia was sewn to the shelving edge of the inguinal ligament with 0 Ethibond suture and then the fascia external oblique was then closed using 0 Vicryl suture. A MAYRA drains placed in the scrotum and brought through separate stab incision skin was closed ind[place]. The fascia of the midline incision was closed loop #1 PDS suture. Skin was then closed india. Patient top she will was sent to recovery room in stable condition.
[2019-07-26] MEDS: HYDROmorphone 1 MG/ML 1 ML SYRINGE IVP ONE ×2 (16:15→16:30)
[2019-07-26] MEDS: PIPERACILLIN-TAZOBACTAM 3.375 GM in SODIUM CHLORIDE 0.9% 100 ML IVPB SCH ×2 (17:31→23:59)
[2019-07-26] MEDS: THIAMINE 100 MG TAB PO SCH (17:32)
--- NOTE | 2019-07-26 17:52 | P.ANPRN ---
Procedure Note - Anesthesia - Nerve Block Performed Left Transversus Abdominis Single Time Out Performed: Yes (1425) Date of Procedure: 07/26/19 Procedure Start Time: 14:22 Procedure Stop Time: 14:27 Location of Patient: PreOp Indication: Acute Post-Operative Pain, Requested by Surgeon Specifically requested for management of pain by DrSue: Jerson Aranda Sedation Type: Sedate with meaningful contact maintained Preparation: Sterile Prep Position: Supine Catheter: None Needle Types: Pajunk Needle Gauge: 21 Ultrasound used to visualize needle placement: Yes Ultrasound used to observe medication spread: Yes Injectate: 0.5% Ropivacaine (see comment for volume) (30cc) Blood Aspirated: No Pain Paresthesia on Injection Noted: No Resistance on Injection: Normal Image Stored and Saved: Yes Events: Uneventful and Well Tolerated
[2019-07-26] MEDS: PANTOPRAZOLE 40 MG/10 ML VIAL IVP SCH (22:05)
[2019-07-26] MEDS: LORazepam 2 MG/ML INJ IV PRN (22:35)
[2019-07-27] MEDS: LORazepam 2 MG/ML INJ IV PRN ×2 (01:58→10:46)
[2019-07-27] MEDS: HYDROmorphone 1 MG/ML 1 ML SYRINGE IVP PRN ×8 (03:02→23:14)
[2019-07-27] MEDS: PANTOPRAZOLE 40 MG/10 ML VIAL IVP SCH ×2 (08:39→20:24)
[2019-07-27] MEDS: PIPERACILLIN-TAZOBACTAM 3.375 GM in SODIUM CHLORIDE 0.9% 100 ML IVPB SCH ×2 (08:39→16:25)
[2019-07-27] MEDS: ENOXAPARIN 40 MG/0.4 ML SYRINGE SQ SCH (08:39)
[2019-07-27] MEDS: THIAMINE 100 MG TAB PO SCH ×2 (08:39→16:24)
[2019-07-27 09:37] LABS: Anisocytosis Slight; Basophils % (A) 0 %; Eosinophils % (A) 0 %; HCT 30.1 % (39.0-53.0); Hypochromasia Moderate; Lymphocytes # (A) 1.2 k/uL (1.0-4.8); Lymphocytes % (A) 5 %; MCH 30.4 pg (25.0-35.0); MCHC 30.7 g/dL (31.0-37.0); MCV 99.2 fL (80.0-100.0); Macrocytosis Slight; Mean Platelet Volume 9.5; Monocytes # (A) 1.6 k/uL (0-1.0); Monocytes % (A) 7 %; Neutrophils # (A) 21.1 k/uL (1.3-7.7); Neutrophils % (A) 87 %; Platelet Count 183 k/uL (150-450); RBC 3.04 m/uL (4.30-5.90); RDW 16.1 % (11.5-15.5); WBC 24.3 k/uL (3.8-10.6)
[2019-07-27 09:39] LABS: ALT 20 U/L (4-49); AST 62 U/L (17-59); African American GFR (CKD) >90 (>60 ml/min/1.73 sqM); Albumin 2.7 g/dL (3.5-5.0); Alkaline Phosphatase 89 U/L (38-126); Anion Gap 7 mmol/L; Blood Urea Nitrogen 15 mg/dL (9-20); Calcium 7.6 mg/dL (8.4-10.2); Carbon Dioxide 21 mmol/L (22-30); Chloride 109 mmol/L (98-107); Glucose 116 mg/dL (74-99); Non-African American GFR(CKD) >90 (>60 ml/min/1.73 sqM); Potassium 4.2 mmol/L (3.5-5.1); Sodium 137 mmol/L (137-145); Total Bilirubin 2.3 mg/dL (0.2-1.3)
[2019-07-27 10:04] LABS: HGB 9.2 gm/dL (13.0-17.5)
--- NOTE | 2019-07-27 10:38 | P.PN ---
Subjective Progress Note Date: 07/27/19 CHIEF COMPLAINT: Abdominal pain HISTORY OF PRESENT ILLNESS: Patient is status post exploratory laparotomy, small bowel resection, and repair of strangulated left inguinal hernia. Patient was found to have nonviable small bowel. POD #1. Patient examined at this point the bedside. Patient is reporting abdominal pain. He is currently receiving IV Dilaudid. He denies nausea or vomiting. MAYRA drain is in place with serosanguineous drainage. Hemoglobin 9.2 today down from 12.9. WBC 24.3. PHYSICAL EXAM: VITAL SIGNS: Reviewed. GENERAL: Well-developed in no acute distress. HEENT: No sclera icterus. Extraocular movements grossly intact. Moist buccal mucosa. Head is atraumatic, normocephalic. ABDOMEN: Soft. Nondistended. Dressing noted to abdomen with shadowing noted. MAYRA drain intact with serosanguineous drainage NEUROLOGIC: Alert and oriented. Cranial nerves II through XII grossly intact. ASSESSMENT: 1. Abdominal pain 2. Small bowel obstruction secondary to left strangulated inguinal hernia with nonviable small bowel, s/p exploratory laparotomy, small bowel resection, and repair of strangulated left inguinal hernia 3. Acute blood loss anemia, secondary to surgery PLAN: Nothing by mouth except ice chips. Continue IV fluids Empiric antibiotics. Monitor WBC Monitor hemoglobin. Check daily. Monitor MAYRA drain output. Continue CIWA protocol Pain control. Continue IV Dilaudid. Increase dose to 1mg q2 hours PRN. Add IV Tylenol. Medical management per Dr. Meza Nurse practitioner note has been reviewed by physician. Signing provider agrees with the documented findings, assessment, and plan of care. Objective - Vital Signs Vital signs: Vital Signs Temp 98.7 F 07/27/19 07:39 Pulse 94 07/27/19 07:39 Resp 16 07/27/19 07:39 BP 114/72 07/27/19 07:39 Pulse Ox 91 L 07/27/19 07:39 Intake & Output 07/26/19 07/27/19 07/27/19 18:59 06:59 18:59 Intake Total 1600 750 Output Total 75 45 Balance 1525 705 Weight 84.822 kg Intake: IV 1600 Intake, IV Titration 750 Amount Sodium Chloride 0.9% 1, 750 000 ml @ 125 mls/hr IV . Q8H [facility] Rx#:[id number] Output: Drainage 25 45 Left Abdomen 25 45 Estimated Blood Loss 50 Other: # Voids 1 - Labs CBC & Chem 7: 07/27/19 08:11 07/27/19 08:11 Labs: Abnormal Lab Results - Last 24 Hours (Table) 07/26/19 07/27/19 07/27/19 Range/Units 14:15 08:11 08:11 WBC 24.3 H (3.8-10.6) k/uL RBC 3.04 L (4.30-5.90) m/uL Hgb 9.2 L D (13.0-17.5) gm/dL Hct 30.1 L (39.0-53.0) % MCHC 30.7 L (31.0-37.0) g/dL RDW 16.1 H (11.5-15.5) % Neutrophils # 21.1 H (1.3-7.7) k/uL Monocytes # 1.6 H (0-1.0) k/uL Chloride 109 H (98-107) mmol/L Carbon Dioxide 21 L (22-30) mmol/L Creatinine 0.61 L (0.66-1.25) mg/dL Glucose 116 H (74-99) mg/dL Plasma Lactic Acid Balaji 2.1 H* (0.7-2.0) mmol/L Calcium 7.6 L (8.4-10.2) mg/dL Total Bilirubin 2.3 H (0.2-1.3) mg/dL AST 62 H (17-59) U/L Total Protein 6.0 L (6.3-8.2) g/dL Albumin 2.7 L (3.5-5.0) g/dL
[2019-07-27] MEDS: SODIUM CHLORIDE 0.9% 1,000 ML IV SCH ×3 (12:10→20:27)
[2019-07-27] MEDS: ACETAMINOPHEN IV (For NPO) 1,000 MG in EMPTY BAG 1 BAG IVPB SCH ×2 (12:10→17:50)
[2019-07-27] MEDS: NICOTINE 21MG/24HR PATCH TRANSDERM SCH (16:25)
[2019-07-28] MEDS: ACETAMINOPHEN IV (For NPO) 1,000 MG in EMPTY BAG 1 BAG IVPB SCH ×2 (00:34→06:06)
[2019-07-28] MEDS: PIPERACILLIN-TAZOBACTAM 3.375 GM in SODIUM CHLORIDE 0.9% 100 ML IVPB SCH ×3 (00:34→15:58)
[2019-07-28] MEDS: HYDROmorphone 1 MG/ML 1 ML SYRINGE IVP PRN ×7 (02:25→23:26)
[2019-07-28] MEDS: SODIUM CHLORIDE 0.9% 1,000 ML IV SCH ×2 (04:53→13:59)
[2019-07-28] MEDS: HYDROcodone/APAP 5-325MG 1 EACH TAB PO PRN ×2 (06:05→13:57)
[2019-07-28 08:07] LABS: Anisocytosis Slight; Basophils # (A) 0.1 k/uL (0-0.2); Basophils % (A) 0 %; Eosinophils # (A) 0.1 k/uL (0-0.7); Eosinophils % (A) 1 %; HCT 25.7 % (39.0-53.0); Hypochromasia Slight; Lymphocytes # (A) 1.1 k/uL (1.0-4.8); Lymphocytes % (A) 7 %; MCH 30.6 pg (25.0-35.0); MCHC 31.2 g/dL (31.0-37.0); Macrocytosis Slight; Mean Platelet Volume 9.6; Monocytes # (A) 1.1 k/uL (0-1.0); Monocytes % (A) 7 %; Neutrophils # (A) 11.7 k/uL (1.3-7.7); Neutrophils % (A) 82 %; Platelet Count 116 k/uL (150-450); RBC 2.62 m/uL (4.30-5.90); RDW 16.2 % (11.5-15.5); WBC 14.3 k/uL (3.8-10.6)
[2019-07-28] MEDS: PANTOPRAZOLE 40 MG/10 ML VIAL IVP SCH ×2 (08:09→20:22)
[2019-07-28] MEDS: ENOXAPARIN 40 MG/0.4 ML SYRINGE SQ SCH (08:09)
[2019-07-28] MEDS: THIAMINE 100 MG TAB PO SCH ×2 (08:09→15:59)
[2019-07-28] MEDS: NICOTINE 21MG/24HR PATCH TRANSDERM SCH (08:09)
[2019-07-28 08:16] LABS: African American GFR (CKD) >90 (>60 ml/min/1.73 sqM); Anion Gap 8 mmol/L; Blood Urea Nitrogen 20 mg/dL (9-20); Calcium 7.4 mg/dL (8.4-10.2); Carbon Dioxide 21 mmol/L (22-30); Chloride 106 mmol/L (98-107); Glucose 99 mg/dL (74-99); Non-African American GFR(CKD) >90 (>60 ml/min/1.73 sqM); Potassium 3.6 mmol/L (3.5-5.1); Sodium 135 mmol/L (137-145)
--- NOTE | 2019-07-28 11:16 | P.PN ---
Subjective Progress Note Date: 07/28/19 CHIEF COMPLAINT: Abdominal pain HISTORY OF PRESENT ILLNESS: Patient is status post exploratory laparotomy, small bowel resection, and repair of strangulated left inguinal hernia. Patient was found to have nonviable small bowel. POD #2. Patient examined this morning at the bedside. Patient is reporting abdominal pain. He is currently receiving IV Dilaudid. He denies nausea or vomiting. MAYRA drain is in place with serosanguineous drainage. Patient denies passing flatus. WBC 14.3. Hemoglobin 8.0. Platelet count 116. PHYSICAL EXAM: VITAL SIGNS: Reviewed. GENERAL: Well-developed in no acute distress. HEENT: No sclera icterus. Extraocular movements grossly intact. Moist buccal mucosa. Head is atraumatic, normocephalic. ABDOMEN: Soft. Nondistended. Dressing noted to abdomen with shadowing noted. MAYRA drain intact with serosanguineous drainage NEUROLOGIC: Alert and oriented. Cranial nerves II through XII grossly intact. ASSESSMENT: 1. Abdominal pain 2. Small bowel obstruction secondary to left strangulated inguinal hernia with nonviable small bowel, s/p exploratory laparotomy, small bowel resection, and repair of strangulated left inguinal hernia 3. Acute blood loss anemia, secondary to surgery PLAN: Nothing by mouth except ice chips and popsicles. Continue IV fluids. Await bowel function. Empiric antibiotics. Monitor WBC. Monitor hemoglobin. Check daily. Monitor MAYRA drain output. Continue CIWA protocol Pain control. Continue IV Dilaudid. Medical management per Dr. Meza Nurse practitioner note has been reviewed by physician. Signing provider agrees with the documented findings, assessment, and plan of care. Objective - Vital Signs Vital signs: Vital Signs Temp 97.9 F 07/28/19 08:08 Pulse 70 07/28/19 08:08 Resp 16 07/28/19 08:08 BP 119/67 07/28/19 08:08 Pulse Ox 93 L 07/28/19 08:08 Intake & Output 07/27/19 07/28/19 07/28/19 18:59 06:59 18:59 Output Total 20 Balance -20 Output: Drainage 20 Left Abdomen 20 Other: Voiding Method Urinal # Voids 1 2 - Labs CBC & Chem 7: 07/28/19 07:53 07/28/19 07:53 Labs: Abnormal Lab Results - Last 24 Hours (Table) 07/28/19 07/28/19 Range/Units 07:53 07:53 WBC 14.3 H (3.8-10.6) k/uL RBC 2.62 L (4.30-5.90) m/uL Hgb 8.0 L (13.0-17.5) gm/dL Hct 25.7 L (39.0-53.0) % RDW 16.2 H (11.5-15.5) % Plt Count 116 L (150-450) k/uL Neutrophils # 11.7 H (1.3-7.7) k/uL Monocytes # 1.1 H (0-1.0) k/uL Sodium 135 L (137-145) mmol/L Carbon Dioxide 21 L (22-30) mmol/L Calcium 7.4 L (8.4-10.2) mg/dL
[2019-07-29] MEDS: PIPERACILLIN-TAZOBACTAM 3.375 GM in SODIUM CHLORIDE 0.9% 100 ML IVPB SCH ×4 (00:49→23:56)
[2019-07-29] MEDS: SODIUM CHLORIDE 0.9% 1,000 ML IV SCH ×4 (00:49→20:04)
[2019-07-29] MEDS: HYDROmorphone 1 MG/ML 1 ML SYRINGE IVP PRN ×6 (02:21→20:04)
[2019-07-29] MEDS: THIAMINE 100 MG TAB PO SCH ×2 (07:26→17:23)
[2019-07-29] MEDS: ENOXAPARIN 40 MG/0.4 ML SYRINGE SQ SCH (07:26)
[2019-07-29] MEDS: NICOTINE 21MG/24HR PATCH TRANSDERM SCH (07:26)
[2019-07-29] MEDS: PANTOPRAZOLE 40 MG/10 ML VIAL IVP SCH (07:27)
[2019-07-29 08:15] LABS: African American GFR (CKD) >90 (>60 ml/min/1.73 sqM); Anion Gap 6 mmol/L; Blood Urea Nitrogen 10 mg/dL (9-20); Calcium 7.1 mg/dL (8.4-10.2); Carbon Dioxide 21 mmol/L (22-30); Chloride 107 mmol/L (98-107); Glucose 109 mg/dL (74-99); Non-African American GFR(CKD) >90 (>60 ml/min/1.73 sqM); Potassium 3.2 mmol/L (3.5-5.1); Sodium 134 mmol/L (137-145)
[2019-07-29 08:26] LABS: Anisocytosis Slight; Basophils % (A) 0 %; Eosinophils # (A) 0.2 k/uL (0-0.7); Eosinophils % (A) 2 %; HCT 25.5 % (39.0-53.0); HGB 7.9 gm/dL (13.0-17.5); Hypochromasia Moderate; Lymphocytes # (A) 0.7 k/uL (1.0-4.8); Lymphocytes % (A) 9 %; MCH 30.6 pg (25.0-35.0); MCV 98.9 fL (80.0-100.0); Macrocytosis Slight; Mean Platelet Volume 9.3; Monocytes # (A) 0.5 k/uL (0-1.0); Monocytes % (A) 6 %; Neutrophils # (A) 6.6 k/uL (1.3-7.7); Neutrophils % (A) 80 %; RBC 2.58 m/uL (4.30-5.90); RDW 16.3 % (11.5-15.5); WBC 8.2 k/uL (3.8-10.6)
[2019-07-29] MEDS: HYDROcodone/APAP 5-325MG 1 EACH TAB PO PRN (09:58)
[2019-07-29] MEDS ORDERED: Potassium Replacement Protocol 1 EACH MISC MISCELLANE PRN (09:59)
[2019-07-29] MEDS: POTASSIUM CHLORIDE ER 20 MEQ TAB.ER PO SCH ×4 (11:51→17:23)
--- NOTE | 2019-07-29 12:31 | P.HPIM ---
History of Present Illness H&P Date: 07/27/19 Chief Complaint: Left lower quadrant pain 44-year-old well-known to my practice with a long-standing history of alcoholism and multiple substance abuse multiple admissions for anemia and cryptitis reports known hernia with discomfort for several months in the left groin area has had persistent pain over the last 2-3 days was admitted and transferred to [facility] approximately 2 weeks prior at which time the hernia was reducible and because of patient's liver disease and alcohol issues was not considered an appropriate candidate for surgical intervention at that time., He reported nausea and vomiting the night prior to admission, pain was a 10 out of 10 prior to admission some gas and one small BM daily for admission ` Review of Systems Constitutional: Reports as per HPI, Reports anorexia, Reports chronic headaches Ears, nose, mouth and throat: Reports as per HPI Cardiovascular: Reports as per HPI Respiratory: Reports as per HPI Gastrointestinal: Reports abdominal pain (Left lower quadrant pain, significant strangulated hernia noted 2 weeks prior this was reducible), Reports constipation Genitourinary: Reports as per HPI Musculoskeletal: Reports myalgias Integumentary: Reports brittle nails, Reports change in hair/nails Neurological: Reports as per HPI, Reports tremors Psychiatric: Reports anhedonia (Known history of alcoholism multi-substance abuse, at risk for DTs. Possible alcohol withdrawal seizure) Past Medical History Past Medical History: Asthma, GI Bleed, Liver Disease, Pneumonia, Renal Disease, Skin Disorder Additional Past Medical History / Comment(s): Liver cirrhosis, portal HTN, abdominal ascities, pancreatitis, upper and lower GI bleeds, bleeding ulcers, esophageal varicies-banded, thrombocytopemia, chronic anemia, gallstones, nephrolithiasis/hematuria, L inguinal hernia, psoriasis. History of Any Multi-Drug Resistant Organisms: MRSA Date of last positivie culture/infection: 12/09/13 MDRO Source:: Right first finger Past Surgical History: Appendectomy, Cholecystectomy, Hernia Repair, Orthopedic Surgery Additional Past Surgical History / Comment(s): EGDs/varicies banding /colonoscopy, paracentesis, right hand tendon repair, right knee arthroscopy, cystoscopy for kidney stone removal, right hand ring finger surgery. surgery for umbilical hernia, Past Anesthesia/Blood Transfusion Reactions: Previous Problems w/ Anesthesia, Motion Sickness Additional Past Anesthesia/Blood Transfusion Reaction / Comment(s): Woke up dur ing scope procedure. Smoking Status: Current every day smoker - Past Family History Mother Family Medical History: No Reported History Additional Family Medical History / Comment(s): Mother has health issues from a MVA-pt did not elaborate. Father Family Medical History: Vascular Disorder Additional Family Medical History / Comment(s): Brain aneurysm. Medications and Allergies Home Medications Medication Instructions Recorded Confirmed Type Thiamine [Vitamin B-1] 100 mg PO DAILY #30 tablet 09/03/17 07/26/19 Rx Multivitamins, Thera [Multivitamin 1 tab PO DAILY 12/14/18 07/26/19 History (formulary)] Magnesium Oxide [Mag-Ox] 400 mg PO DAILY #30 tablet 01/22/19 07/26/19 Rx Potassium Chloride ER [K-Dur 20] 20 meq PO DAILY #10 tab 01/22/19 07/26/19 Rx Furosemide [Lasix] 40 mg PO BID 02/03/19 07/26/19 History Hydrocodone/Acetaminophen [[place] 1 tab PO Q8H PRN 07/05/19 07/26/19 History 10-325] Lactulose [Cephulac] 20 gm PO BID 07/05/19 07/26/19 History Pantoprazole [Protonix] 40 mg PO DAILY 07/05/19 07/26/19 History Spironolactone [Aldactone] 50 mg PO DAILY 07/05/19 07/26/19 History diphenhydrAMINE [Benadryl] 25 mg PO Q6H PRN cap 07/07/19 07/26/19 Rx Allergies Allergy/AdvReac Type Severity Reaction Status Date / Time No Known Allergies Allergy Verified 07/26/19 08:27 Physical Exam Osteopathic Statement: *. No significant issues noted on an osteopathic structural exam other than those noted in the History and Physical/Consult. Vitals: Vital Signs Temp Pulse Resp BP Pulse Ox 07/29/19 07:18 98.5 F 92 16 123/71 95 07/29/19 03:50 17 07/29/19 01:40 98.2 F 84 17 105/67 94 L 07/29/19 00:49 17 07/28/19 20:19 98 F 75 16 122/60 96 07/28/19 15:00 98 F 78 16 118/67 95 Intake and Output 03/07/29/19 07/29/19 22:59 06:59 14:59 Output Total 5 Balance -5 Output: Drainage 5 Left Abdomen 5 Other: Voiding Method Urinal Urinal Urinal # Voids 1 3 Results CBC & Chem 7: 07/29/19 07:37 07/29/19 07:37 Labs: Abnormal Lab Results - Last 24 Hours (Table) 07/29/19 07/29/19 Range/Units 07:37 07:37 RBC 2.58 L (4.30-5.90) m/uL Hgb 7.9 L (13.0-17.5) gm/dL Hct 25.5 L (39.0-53.0) % RDW 16.3 H (11.5-15.5) % Sodium 134 L (137-145) mmol/L Potassium 3.2 L (3.5-5.1) mmol/L Carbon Dioxide 21 L (22-30) mmol/L Creatinine 0.51 L (0.66-1.25) mg/dL Glucose 109 H (74-99) mg/dL Calcium 7.1 L (8.4-10.2) mg/dL Thrombosis Risk Factor Assmnt - Choose All That Apply Each Factor Represents 1 point: Age 41-60 years Other Risk Factors: Yes Each Risk Factor Represents 2 Points: Major surgery Other congenital or acquired thrombophilia - If yes, enter type in comment: No Thrombosis Risk Factor Assessment Total Risk Factor Score: 3 Thrombosis Risk Factor Assessment Level: Moderate Risk
[2019-07-29 12:37] LABS: Platelet Count 94 k/uL (150-450)
--- NOTE | 2019-07-29 12:47 | P.PN ---
Subjective Progress Note Date: 07/28/19 Principal diagnosis: Strangulated left inguinal hernia Patient status post laparotomy for left incarcerated inguinal hernia, with bowel resection secondary to necrotic small bowel in the hernia sac Patient underwent small bowel resection, with anastomosis apparently tolerated the procedure well. However or nutritional state secondary to cirrhotic liver disease and alcoholism places healing in a precarious state. Patient otherwise appears to be doing quite well in fact in the evening he eloped and just waited it out the doors of the hospital when security followed and escorted the patient back up to his room. Objective - Vital Signs Vital signs: Vital Signs Temp 98.5 F 07/29/19 07:18 Pulse 92 07/29/19 07:18 Resp 16 07/29/19 07:18 BP 123/71 07/29/19 07:18 Pulse Ox 95 07/29/19 07:18 Intake & Output 07/28/19 07/29/19 07/29/19 18:59 06:59 18:59 Intake Total 1000 Output Total 25 5 Balance 975 -5 Intake: Intake, IV Titration 1000 Amount Sodium Chloride 0.9% 1, 1000 000 ml @ 125 mls/hr IV . Q8H [facility] Rx#:[id number] Output: Drainage 25 5 Left Abdomen 25 5 Other: Voiding Method Urinal Urinal # Voids 3 - Exam General: [Patient awake, alert and oriented times 3. Patient in no acute distress.] Poor oral hygiene HEENT: [PERRL. EOMI. No pharyngeal erythema or exudate.] Neck: [No adenopathy.] Cardiac: [Heart regular in rate and rhythm. No S3. No S4. No clicks, rubs. No murmur.] Lungs: [Clear to auscultation bilaterally.] Abdomen: [No mass. No organomegaly. Bowel sounds presnt and normoactive in all 4 quadrants. Mid abdominal laparotomy incision clean and dry, evidence of ascites noted Extremes: [No edema no cyanosis no claudication normal pulses] : Normal male genitalia with current reduction of hernia Musculoskeletal: [No joint erythema, edema or tenderness.] Skin: [No rash.] Neurologic: [No lateralizing deficits. CN II - XII grossly intact.] Lymphatic: [No adenopathy.] - Labs CBC & Chem 7: 07/29/19 07:37 07/29/19 07:37 Labs: Abnormal Lab Results - Last 24 Hours (Table) 07/29/19 07/29/19 Range/Units 07:37 07:37 RBC 2.58 L (4.30-5.90) m/uL Hgb 7.9 L (13.0-17.5) gm/dL Hct 25.5 L (39.0-53.0) % RDW 16.3 H (11.5-15.5) % Sodium 134 L (137-145) mmol/L Potassium 3.2 L (3.5-5.1) mmol/L Carbon Dioxide 21 L (22-30) mmol/L Creatinine 0.51 L (0.66-1.25) mg/dL Glucose 109 H (74-99) mg/dL Calcium 7.1 L (8.4-10.2) mg/dL Assessment and Plan (1) Irreducible left inguinal hernia Current Visit: Yes Status: Acute Code(s): K40.30 - UNIL INGUINAL HERNIA, W OBST, W/O GANGR, NOT SPCF RECUR SNOMED Code(s): 635293670 (2) Strangulated inguinal hernia Current Visit: Yes Status: Acute Code(s): K40.30 - UNIL INGUINAL HERNIA, W OBST, W/O GANGR, NOT SPCF RECUR SNOMED Code(s): 609430274 (3) Small bowel obstruction Current Visit: Yes Status: Acute Code(s): K56.609 - UNSP INTESTNL OBST, UNSP TO PARTIAL VERSUS COMPLETE OBST SNOMED Code(s): 336870180 (4) Abdominal pain Current Visit: No Status: Acute Code(s): R10.9 - UNSPECIFIED ABDOMINAL PAIN SNOMED Code(s): 88185609 (5) Acute alcoholic pancreatitis Current Visit: No Status: Acute Code(s): K85.20 - ALCOHOL INDUCED ACUTE PANCREATITIS WITHOUT NECROSIS OR INFCT SNOMED Code(s): 082944177 (6) Acute blood loss anemia Current Visit: No Status: Acute Code(s): D62 - ACUTE POSTHEMORRHAGIC ANEMIA SNOMED Code(s): 364522103 (7) Acute on chronic pancreatitis Current Visit: No Status: Acute Code(s): K85.90 - ACUTE PANCREATITIS WITHOUT NECROSIS OR INFECTION, UNSP; K86.1 - OTHER CHRONIC PANCREATITIS SNOMED Code(s): 070263127 (8) Alcohol abuse Current Visit: No Status: Acute Code(s): F10.10 - ALCOHOL ABUSE, UNCOMPLICATED SNOMED Code(s): 35675745 (9) Alcoholic cirrhosis of liver with ascites Current Visit: No Status: Acute Code(s): K70.31 - ALCOHOLIC CIRRHOSIS OF LIVER WITH ASCITES SNOMED Code(s): 497421884 Plan: Status post surgical intervention day [address] Jerson Aranda Post day 1 of elopement No evidence of substance abuse and alcoholism or other patient was caught by security before able to smoke or otherwise obtained contraband Patient appears to be improving in spite of himself Anemia secondary to blood loss secondary to iron deficiency Will obtain a prealbumin to assess healing process Time with Patient: Greater than 30
--- NOTE | 2019-07-29 14:15 | PN ---
PROGRESS NOTE CHIEF COMPLAINT: Bowel obstruction. SUBJECTIVE: The patient complained of increased abdominal bloating today. White blood cell count 8.2. He is afebrile. Potassium low at 3.2. Complaining of increased abdominal discomfort. No nausea or vomiting. MAYRA drain is serosanguineous. OBJECTIVE: ABDOMEN: Soft. Mild distention. Non-tympanitic. Incision with dressing slightly saturated, mild tenderness. ASSESSMENT: Ihwok[age]grydk-[age]-old male with bowel obstruction post exploratory laparotomy with bowel resection. PLAN: Make n.p.o. at this time. Supplement potassium. Monitor labs. Spoke with Medicine regarding adjusting diuretics for suspected ascites. MMODL / IJN: [id number] /
[2019-07-29] MEDS: KETOROLAC 30 MG/ML 1 ML VIAL IVP SCH ×2 (17:23→23:57)
[2019-07-29] MEDS ORDERED: POTASSIUM CHLORIDE ER 20 MEQ TAB.ER PO STA (19:45)
[2019-07-29] MEDS: LACTULOSE 20 GM/30 ML CUP PO SCH (20:03)
[2019-07-30] MEDS: SODIUM CHLORIDE 0.9% 1,000 ML IV SCH ×2 (04:13→15:05)
[2019-07-30] MEDS: HYDROcodone/APAP 5-325MG 1 EACH TAB PO PRN ×3 (04:13→18:26)
[2019-07-30] MEDS: KETOROLAC 30 MG/ML 1 ML VIAL IVP SCH ×4 (04:50→23:35)
[2019-07-30 07:18] LABS: Anisocytosis Slight; Basophils % (A) 1 %; Eosinophils # (A) 0.2 k/uL (0-0.7); Eosinophils % (A) 4 %; HCT 27.5 % (39.0-53.0); HGB 8.7 gm/dL (13.0-17.5); Hypochromasia Slight; Lymphocytes # (A) 0.6 k/uL (1.0-4.8); Lymphocytes % (A) 13 %; MCH 31.5 pg (25.0-35.0); MCHC 31.8 g/dL (31.0-37.0); Macrocytosis Slight; Mean Platelet Volume 9.3; Monocytes # (A) 0.5 k/uL (0-1.0); Monocytes % (A) 10 %; Neutrophils # (A) 3.1 k/uL (1.3-7.7); Neutrophils % (A) 69 %; RBC 2.77 m/uL (4.30-5.90); RDW 16.6 % (11.5-15.5); WBC 4.5 k/uL (3.8-10.6)
[2019-07-30] MEDS: PIPERACILLIN-TAZOBACTAM 3.375 GM in SODIUM CHLORIDE 0.9% 100 ML IVPB SCH ×3 (07:25→23:34)
[2019-07-30] MEDS: PANTOPRAZOLE 40 MG TABLET PO SCH (07:25)
[2019-07-30] MEDS: THIAMINE 100 MG TAB PO SCH ×2 (07:25→17:32)
[2019-07-30 07:28] LABS: African American GFR (CKD) >90 (>60 ml/min/1.73 sqM); Anion Gap 6 mmol/L; Blood Urea Nitrogen 8 mg/dL (9-20); Calcium 7.3 mg/dL (8.4-10.2); Carbon Dioxide 20 mmol/L (22-30); Chloride 110 mmol/L (98-107); Glucose 88 mg/dL (74-99); Non-African American GFR(CKD) >90 (>60 ml/min/1.73 sqM); Potassium 3.8 mmol/L (3.5-5.1); Sodium 136 mmol/L (137-145)
[2019-07-30] MEDS: HYDROmorphone 1 MG/ML 1 ML SYRINGE IVP PRN ×2 (07:30→15:17)
[2019-07-30 07:50] LABS: Platelet Count 91 k/uL (150-450)
[2019-07-30] MEDS: LACTULOSE 20 GM/30 ML CUP PO SCH ×2 (08:57→22:50)
[2019-07-30] MEDS: ENOXAPARIN 40 MG/0.4 ML SYRINGE SQ SCH (08:57)
[2019-07-30] MEDS: MULTIVITAMINS, THERA 1 EACH TAB PO SCH (08:57)
[2019-07-30] MEDS: NICOTINE 21MG/24HR PATCH TRANSDERM SCH (08:57)
[2019-07-30] MEDS: MAGNESIUM OXIDE 400 MG TAB PO SCH (08:57)
[2019-07-30] MEDS: SPIRONOLACTONE 25 MG TAB PO SCH (08:57)
[2019-07-30] MEDS ORDERED: POTASSIUM CHLORIDE ER 20 MEQ TAB.ER PO SCH (09:00)
--- NOTE | 2019-07-30 10:18 | P.PN ---
Subjective Progress Note Date: 07/30/19 Principal diagnosis: Small bowel obstruction Patient feels better today. White blood cell count 4.5, hemoglobin 8.7. He is passing flatus. No bowel movement. Less pain. Feels less bloated. Aldactone was started yesterday by Dr. Meza. MAYRA drain serosanguineous and small in volume Objective - Vital Signs Vital signs: Vital Signs Temp 98.2 F 07/30/19 07:06 Pulse 72 07/30/19 07:06 Resp 16 07/30/19 07:06 BP 125/73 07/30/19 07:06 Pulse Ox 97 07/30/19 07:06 Intake & Output 07/29/19 07/30/19 07/30/19 18:59 06:59 18:59 Intake Total 1740 Output Total 5 200 Balance -5 1740 -200 Intake: Intake, IV Titration 1500 Amount Sodium Chloride 0.9% 1, 1500 000 ml @ 125 mls/hr IV . Q8H [facility] Rx#:[id number] Oral 240 Output: Drainage 5 Left Abdomen 5 Urine 200 Other: Voiding Method Toilet Toilet Toilet Urinal Urinal Urinal # Voids 1 2 - Exam Abdomen: Soft, mild tenderness, mild distention without tympany, incision clean and dry - Labs CBC & Chem 7: 07/30/19 06:58 07/30/19 06:58 Labs: Abnormal Lab Results - Last 24 Hours (Table) 07/29/19 07/29/19 07/30/19 Range/Units 07:37 07:37 06:58 RBC 2.58 L 2.77 L (4.30-5.90) m/uL Hgb 7.9 L 8.7 L (13.0-17.5) gm/dL Hct 25.5 L 27.5 L (39.0-53.0) % RDW 16.3 H 16.6 H (11.5-15.5) % Plt Count 94 L 91 L (150-450) k/uL Lymphocytes # 0.7 L 0.6 L (1.0-4.8) k/uL Sodium (137-145) mmol/L Chloride (98-107) mmol/L Carbon Dioxide (22-30) mmol/L BUN (9-20) mg/dL Creatinine (0.66-1.25) mg/dL Calcium (8.4-10.2) mg/dL Prealbumin <5.0 L (18.0-42.0) mg/dL 07/30/19 Range/Units 06:58 RBC (4.30-5.90) m/uL Hgb (13.0-17.5) gm/dL Hct (39.0-53.0) % RDW (11.5-15.5) % Plt Count (150-450) k/uL Lymphocytes # (1.0-4.8) k/uL Sodium 136 L (137-145) mmol/L Chloride 110 H (98-107) mmol/L Carbon Dioxide 20 L (22-30) mmol/L BUN 8 L (9-20) mg/dL Creatinine 0.52 L (0.66-1.25) mg/dL Calcium 7.3 L (8.4-10.2) mg/dL Prealbumin (18.0-42.0) mg/dL Assessment and Plan Plan: Patient doing well. Continue ambulation. Advance diet to full liquids. Continue diuretics for suspected ascites. Monitor incision site.
--- NOTE | 2019-07-30 11:58 | P.PN ---
Subjective Progress Note Date: 07/30/19 Principal diagnosis: Strangulated left inguinal hernia Patient status post laparotomy for left incarcerated inguinal hernia, with bowel resection secondary to necrotic small bowel in the hernia sac Patient underwent small bowel resection, with anastomosis apparently tolerated the procedure well. However or nutritional state secondary to cirrhotic liver disease and alcoholism places healing in a precarious state. Patient otherwise appears to be doing quite well in fact in the evening he eloped and just waited it out the doors of the hospital when security followed and escorted the patient back up to his room. 07/30/2019 Patient awake alert oriented 3, vital signs stable patient is afebrile, status post laparotomy for left incarcerated inguinal hernia postop day 4 Patient's prealbumin less than 5. Encouraging patient to consume as much protein as he possibly can Objective - Vital Signs Vital signs: Vital Signs Temp 98.2 F 07/30/19 07:06 Pulse 72 07/30/19 07:06 Resp 16 07/30/19 07:06 BP 125/73 07/30/19 07:06 Pulse Ox 97 07/30/19 07:06 Intake & Output 07/29/19 07/30/19 07/30/19 18:59 06:59 18:59 Intake Total 1740 Output Total 5 200 Balance -5 1740 -200 Intake: Intake, IV Titration 1500 Amount Sodium Chloride 0.9% 1, 1500 000 ml @ 125 mls/hr IV . Q8H [facility] Rx#:[id number] Oral 240 Output: Drainage 5 Left Abdomen 5 Urine 200 Other: Voiding Method Toilet Toilet Toilet Urinal Urinal Urinal # Voids 1 2 - Exam General: [Patient awake, alert and oriented times 3. Patient in no acute distress.] Poor oral hygiene HEENT: [PERRL. EOMI. No pharyngeal erythema or exudate.] Neck: [No adenopathy.] Cardiac: [Heart regular in rate and rhythm. No S3. No S4. No clicks, rubs. No murmur.] Lungs: [Clear to auscultation bilaterally.] Abdomen: [No mass. No organomegaly. Bowel sounds presnt and normoactive in all 4 quadrants. Mid abdominal laparotomy incision clean and dry, evidence of ascites noted Extremes: [No edema no cyanosis no claudication normal pulses] : Normal male genitalia with current reduction of hernia Musculoskeletal: [No joint erythema, edema or tenderness.] Skin: [No rash.] Neurologic: [No lateralizing deficits. CN II - XII grossly intact.] Lymphatic: [No adenopathy.] - Labs CBC & Chem 7: 07/30/19 06:58 07/30/19 06:58 Labs: Abnormal Lab Results - Last 24 Hours (Table) 07/29/19 07/29/19 07/30/19 Range/Units 07:37 07:37 06:58 RBC 2.58 L 2.77 L (4.30-5.90) m/uL Hgb 7.9 L 8.7 L (13.0-17.5) gm/dL Hct 25.5 L 27.5 L (39.0-53.0) % RDW 16.3 H 16.6 H (11.5-15.5) % Plt Count 94 L 91 L (150-450) k/uL Lymphocytes # 0.7 L 0.6 L (1.0-4.8) k/uL Sodium (137-145) mmol/L Chloride (98-107) mmol/L Carbon Dioxide (22-30) mmol/L BUN (9-20) mg/dL Creatinine (0.66-1.25) mg/dL Calcium (8.4-10.2) mg/dL Prealbumin <5.0 L (18.0-42.0) mg/dL 07/30/19 Range/Units 06:58 RBC (4.30-5.90) m/uL Hgb (13.0-17.5) gm/dL Hct (39.0-53.0) % RDW (11.5-15.5) % Plt Count (150-450) k/uL Lymphocytes # (1.0-4.8) k/uL Sodium 136 L (137-145) mmol/L Chloride 110 H (98-107) mmol/L Carbon Dioxide 20 L (22-30) mmol/L BUN 8 L (9-20) mg/dL Creatinine 0.52 L (0.66-1.25) mg/dL Calcium 7.3 L (8.4-10.2) mg/dL Prealbumin (18.0-42.0) mg/dL Assessment and Plan (1) Irreducible left inguinal hernia Current Visit: Yes Status: Acute Code(s): K40.30 - UNIL INGUINAL HERNIA, W OBST, W/O GANGR, NOT SPCF RECUR SNOMED Code(s): 051594406 (2) Strangulated inguinal hernia Current Visit: Yes Status: Acute Code(s): K40.30 - UNIL INGUINAL HERNIA, W OBST, W/O GANGR, NOT SPCF RECUR SNOMED Code(s): 582082610 (3) Small bowel obstruction Current Visit: Yes Status: Acute Code(s): K56.609 - UNSP INTESTNL OBST, UNSP TO PARTIAL VERSUS COMPLETE OBST SNOMED Code(s): 156190319 (4) Abdominal pain Current Visit: No Status: Acute Code(s): R10.9 - UNSPECIFIED ABDOMINAL PAIN SNOMED Code(s): 41469032 (5) Acute alcoholic pancreatitis Current Visit: No Status: Acute Code(s): K85.20 - ALCOHOL INDUCED ACUTE PANCREATITIS WITHOUT NECROSIS OR INFCT SNOMED Code(s): 875467335 (6) Acute blood loss anemia Current Visit: No Status: Acute Code(s): D62 - ACUTE POSTHEMORRHAGIC ANEMIA SNOMED Code(s): 095038973 (7) Acute on chronic pancreatitis Current Visit: No Status: Acute Code(s): K85.90 - ACUTE PANCREATITIS WITHOUT NECROSIS OR INFECTION, UNSP; K86.1 - OTHER CHRONIC PANCREATITIS SNOMED Code(s): 347001430 (8) Alcohol abuse Current Visit: No Status: Acute Code(s): F10.10 - ALCOHOL ABUSE, UNCOMPLICATED SNOMED Code(s): 41520729 (9) Alcoholic cirrhosis of liver with ascites Current Visit: No Status: Acute Code(s): K70.31 - ALCOHOLIC CIRRHOSIS OF LIVER WITH ASCITES SNOMED Code(s): 083629182 Plan: Status post surgical intervention day 4 Patient appears to be improving in spite of himself Anemia secondary to blood loss secondary to iron deficiency Prealbumin less than 5, discussed with patient the need to increase protein intake We'll continue to follow Time with Patient: Greater than 30
[2019-07-31] MEDS: HYDROcodone/APAP 5-325MG 1 EACH TAB PO PRN ×2 (02:02→22:56)
[2019-07-31] MEDS: KETOROLAC 30 MG/ML 1 ML VIAL IVP SCH ×2 (05:25→13:16)
[2019-07-31] MEDS: SODIUM CHLORIDE 0.9% 1,000 ML IV SCH (05:29)
[2019-07-31] MEDS: MAGNESIUM OXIDE 400 MG TAB PO SCH (08:38)
[2019-07-31] MEDS: THIAMINE 100 MG TAB PO SCH ×2 (08:38→16:20)
[2019-07-31] MEDS: ENOXAPARIN 40 MG/0.4 ML SYRINGE SQ SCH (08:38)
[2019-07-31] MEDS: MULTIVITAMINS, THERA 1 EACH TAB PO SCH (08:38)
[2019-07-31] MEDS: PANTOPRAZOLE 40 MG TABLET PO SCH (08:38)
[2019-07-31] MEDS: PIPERACILLIN-TAZOBACTAM 3.375 GM in SODIUM CHLORIDE 0.9% 100 ML IVPB SCH ×3 (08:38→22:57)
[2019-07-31] MEDS: SPIRONOLACTONE 25 MG TAB PO SCH (08:39)
[2019-07-31] MEDS: LACTULOSE 20 GM/30 ML CUP PO SCH ×3 (08:39→19:42)
[2019-07-31] MEDS: NICOTINE 21MG/24HR PATCH TRANSDERM SCH (08:39)
[2019-07-31] MEDS: HYDROmorphone 1 MG/ML 1 ML SYRINGE IVP PRN ×2 (08:40→18:09)
--- NOTE | 2019-07-31 13:19 | P.PN ---
Subjective Progress Note Date: 07/31/19 CHIEF COMPLAINT: Abdominal pain HISTORY OF PRESENT ILLNESS: Patient is status post exploratory laparotomy, small bowel resection, and repair of strangulated left inguinal hernia. Patient examined this morning at the bedside. Patient states his pain is tolerable. He denies nausea or vomiting. Tolerating diet. Passing flatus. Denies bowel movement. PHYSICAL EXAM: VITAL SIGNS: Reviewed. GENERAL: Well-developed in no acute distress. HEENT: No sclera icterus. Extraocular movements grossly intact. Moist buccal mucosa. Head is atraumatic, normocephalic. ABDOMEN: Soft. Nondistended. Dressing noted to abdomen with shadowing noted. MAYRA drain intact with serous drainage NEUROLOGIC: Alert and oriented. Cranial nerves II through XII grossly intact. ASSESSMENT: 1. Abdominal pain 2. Small bowel obstruction secondary to left strangulated inguinal hernia with nonviable small bowel, s/p exploratory laparotomy, small bowel resection, and repair of strangulated left inguinal hernia 3. Acute blood loss anemia, secondary to surgery PLAN: Advance diet. Await bowel movement Incentive spirometry Increase activity as tolerated Pain control Discontinue IV fluids Medical management per Dr. Meza Possible discharge home tomorrow Nurse practitioner note has been reviewed by physician. Signing provider agrees with the documented findings, assessment, and plan of care. Objective - Vital Signs Vital signs: Vital Signs Temp 98.1 F 07/31/19 07:00 Pulse 65 07/31/19 08:39 Resp 16 07/31/19 08:39 BP 120/70 07/31/19 07:00 Pulse Ox 97 07/31/19 07:00 Intake & Output 07/30/19 07/31/19 07/31/19 18:59 06:59 18:59 Intake Total 400 560 Output Total 915 1140 Balance -515 -580 Intake: IV 400 Sodium Chloride 0.9% 1, 400 000 ml @ 50 mls/hr IV . Q20H [facility] Rx#:[id number] Intake, IV Titration 200 Amount Piperacillin-Tazobactam 3 200 .375 gm In Sodium Chloride 0.9% 100 ml @ 25 mls/hr IVPB Q8HR [facility] Rx# :[id number] Oral 360 Output: Drainage 15 40 Left Abdomen 15 40 Urine 900 1100 Other: Voiding Method Toilet Toilet Toilet Urinal Urinal Urinal - Labs CBC & Chem 7: 07/30/19 06:58 07/30/19 06:58
--- NOTE | 2019-07-31 16:03 | P.PN ---
Subjective Progress Note Date: 07/31/19 Strangulated left inguinal hernia Patient status post laparotomy for left incarcerated inguinal hernia, with bowel resection secondary to necrotic small bowel in the hernia sac Patient underwent small bowel resection, with anastomosis apparently tolerated the procedure well. However or nutritional state secondary to cirrhotic liver disease and alcoholism places healing in a precarious state. Patient otherwise appears to be doing quite well in fact in the evening he eloped and just waited it out the doors of the hospital when security followed and escorted the patient back up to his room. 07/30/2019 Patient awake alert oriented 3, vital signs stable patient is afebrile, status post laparotomy for left incarcerated inguinal hernia postop day 4 Patient's prealbumin less than 5. Encouraging patient to consume as much protein as he possibly can 07/31/2019 diet advancement as per surgery. Passing flatus, no bowel movement.denies nausea vomiting or diarrhea. Pain controlled. Denies chest p ain, palpitations or shortness of breath.afebrile,normal WBC. Hemoglobin 8.7. Objective - Vital Signs Vital signs: Vital Signs Temp 98.1 F 07/31/19 14:46 Pulse 63 07/31/19 14:46 Resp 16 07/31/19 14:46 BP 123/74 07/31/19 14:46 Pulse Ox 97 07/31/19 14:46 Intake & Output 07/30/19 07/31/19 07/31/19 18:59 06:59 18:59 Intake Total 400 560 Output Total 915 1140 30 Balance -515 -580 -30 Intake: IV 400 Sodium Chloride 0.9% 1, 400 000 ml @ 50 mls/hr IV . Q20H [facility] Rx#:[id number] Intake, IV Titration 200 Amount Piperacillin-Tazobactam 3 200 .375 gm In Sodium Chloride 0.9% 100 ml @ 25 mls/hr IVPB Q8HR [facility] Rx# :[id number] Oral 360 Output: Drainage 15 40 30 Left Abdomen 15 40 30 Urine 900 1100 Other: Voiding Method Toilet Toilet Toilet Urinal Urinal Urinal - Exam General: [Patient sitting up in bed, playing with his MAYRA tube,awake, alert and oriented times 3. no acute distress.] HEENT: [PERRL. EOMI. No pharyngeal erythema or exudate.] Neck: [No adenopathy.] Cardiac: [Heart regular in rate and rhythm. No S3. No S4. No clicks, rubs. No murmur.] Lungs: [Clear to auscultation bilaterally.] Abdomen: [No mass. No organomegaly. soft, distended. Bowel sounds presnt and hypoactive in all 4 quadrants. Mid abdominal laparotomy dressing clean and dry, evidence of ascites noted.MAYRA with serous drainage. Extremes: [No edema no cyanosis no claudication normal pulses] Musculoskeletal: [No joint erythema, edema or tenderness.] Skin: [No rash.] Neurologic: [No lateralizing deficits. CN II - XII grossly intact.] - Labs CBC & Chem 7: 07/30/19 06:58 07/30/19 06:58 Assessment and Plan Assessment: (1) Irreducible left inguinal hernia Current Visit: Yes Status: Acute Code(s): K40.30 - UNIL INGUINAL HERNIA, W OBST, W/O GANGR, NOT SPCF RECUR SNOMED Code(s): 859908152 (2) Strangulated inguinal hernia Current Visit: Yes Status: Acute Code(s): K40.30 - UNIL INGUINAL HERNIA, W OBST, W/O GANGR, NOT SPCF RECUR SNOMED Code(s): 693706585 (3) Small bowel obstruction Current Visit: Yes Status: Acute Code(s): K56.609 - UNSP INTESTNL OBST, UNSP TO PARTIAL VERSUS COMPLETE OBST SNOMED Code(s): 611851720 (4) Abdominal pain Current Visit: No Status: Acute Code(s): R10.9 - UNSPECIFIED ABDOMINAL PAIN SNOMED Code(s): 37764457 (5) Acute alcoholic pancreatitis Current Visit: No Status: Acute Code(s): K85.20 - ALCOHOL INDUCED ACUTE PANCREATITIS WITHOUT NECROSIS OR INFCT SNOMED Code(s): 708178276 (6) Acute blood loss anemia,iron deficient as well as postoperative,expected Current Visit: No Status: Acute Code(s): D62 - ACUTE POSTHEMORRHAGIC ANEMIA SNOMED Code(s): 525901642 (7) Acute on chronic pancreatitis Current Visit: No Status: Acute Code(s): K85.90 - ACUTE PANCREATITIS WITHOUT NECROSIS OR INFECTION, UNSP; K86.1 - OTHER CHRONIC PANCREATITIS SNOMED Code(s): 283984272 (8) Alcohol abuse Current Visit: No Status: Acute Code(s): F10.10 - ALCOHOL ABUSE, UNCOMPLICATED SNOMED Code(s): 01459911 (9) Alcoholic cirrhosis of liver with ascites Current Visit: No Status: Acute Code(s): K70.31 - ALCOHOLIC CIRRHOSIS OF LIVER WITH ASCITES SNOMED Code(s): 403526245 plan: Continue oncurrent medication regime ,monitoring and symptomatic treatment. pain management/diet advancement as per surgery. Increase ambulation as tolerated.increase protein intake, pre-albumin low.aggressive pulmonary toileting with incentive spirometer reinforced.surgery discussing potential discharge tomorrow; patient medically cleared. Follow-up with PCP in 1 week. The impression and plan of care has been dictated as directed. : I performed a history and examination of this patient, discussed the same with the dictator. I agree with the dictator's note ,documented as a scribe. Any additional findings or plans will be noted.
[2019-08-01] MEDS: HYDROmorphone 1 MG/ML 1 ML SYRINGE IVP PRN ×4 (02:44→23:13)
[2019-08-01] MEDS: HYDROcodone/APAP 5-325MG 1 EACH TAB PO PRN ×2 (05:20→11:28)
[2019-08-01] MEDS: PIPERACILLIN-TAZOBACTAM 3.375 GM in SODIUM CHLORIDE 0.9% 100 ML IVPB SCH (08:46)
[2019-08-01] MEDS: MAGNESIUM OXIDE 400 MG TAB PO SCH (08:46)
[2019-08-01] MEDS: MULTIVITAMINS, THERA 1 EACH TAB PO SCH (08:46)
[2019-08-01] MEDS: SPIRONOLACTONE 25 MG TAB PO SCH (08:46)
[2019-08-01] MEDS: PANTOPRAZOLE 40 MG TABLET PO SCH (08:46)
[2019-08-01] MEDS: NICOTINE 21MG/24HR PATCH TRANSDERM SCH (08:46)
[2019-08-01] MEDS: ENOXAPARIN 40 MG/0.4 ML SYRINGE SQ SCH (08:46)
[2019-08-01] MEDS: THIAMINE 100 MG TAB PO SCH ×2 (08:46→17:19)
[2019-08-01] MEDS: LACTULOSE 20 GM/30 ML CUP PO SCH ×2 (08:47→20:14)
--- NOTE | 2019-08-01 13:32 | P.PN ---
Subjective Progress Note Date: 08/01/19 CHIEF COMPLAINT: Abdominal pain HISTORY OF PRESENT ILLNESS: Patient is status post exploratory laparotomy, small bowel resection, and repair of strangulated left inguinal hernia. Patient examined this morning at the bedside. Patient states his pain is tolerable. He denies nausea or vomiting. Tolerating diet. Passing flatus and having bowel movements. PHYSICAL EXAM: VITAL SIGNS: Reviewed. GENERAL: Well-developed in no acute distress. HEENT: No sclera icterus. Extraocular movements grossly intact. Moist buccal mucosa. Head is atraumatic, normocephalic. ABDOMEN: Soft. Distended. Dressing noted to abdomen with shadowing noted. MAYRA drain intact with serous drainage NEUROLOGIC: Alert and oriented. Cranial nerves II through XII grossly intact. ASSESSMENT: 1. Abdominal pain 2. Small bowel obstruction secondary to left strangulated inguinal hernia with nonviable small bowel, s/p exploratory laparotomy, small bowel resection, and repair of strangulated left inguinal hernia 3. Acute blood loss anemia, secondary to surgery PLAN: Continue diet as tolerated Incentive spirometry Increase activity as tolerated Pain control Abdominal US ordered. Consult IR for paracentesis of ascites fluids secondary to increasing abdominal distention Nurse practitioner note has been reviewed by physician. Signing provider agrees with the documented findings, assessment, and plan of care. Objective - Vital Signs Vital signs: Vital Signs Temp 98.5 F 08/01/19 07:00 Pulse 73 08/01/19 08:00 Resp 17 08/01/19 08:00 BP 114/66 08/01/19 07:00 Pulse Ox 96 08/01/19 07:00 Intake & Output 07/31/19 08/01/19 08/01/19 18:59 06:59 18:59 Intake Total 340 Output Total 30 40 Balance -30 300 Intake: Intake, IV Titration 100 Amount Piperacillin-Tazobactam 3 100 .375 gm In Sodium Chloride 0.9% 100 ml @ 25 mls/hr IVPB Q8HR [facility] Rx# :[id number] Oral 240 Output: Drainage 30 40 Left Abdomen 30 40 Other: Voiding Method Toilet Toilet Toilet Urinal Urinal Urinal # Voids 1 - Labs CBC & Chem 7: 07/30/19 06:58 07/30/19 06:58
--- NOTE | 2019-08-01 13:52 | P.PN ---
Subjective Progress Note Date: 08/01/19 Strangulated left inguinal hernia Patient status post laparotomy for left incarcerated inguinal hernia, with bowel resection secondary to necrotic small bowel in the hernia sac Patient underwent small bowel resection, with anastomosis apparently tolerated the procedure well. However or nutritional state secondary to cirrhotic liver disease and alcoholism places healing in a precarious state. Patient otherwise appears to be doing quite well in fact in the evening he eloped and just waited it out the doors of the hospital when security followed and escorted the patient back up to his room. 07/30/2019 Patient awake alert oriented 3, vital signs stable patient is afebrile, status post laparotomy for left incarcerated inguinal hernia postop day 4 Patient's prealbumin less than 5. Encouraging patient to consume as much protein as he possibly can 07/31/2019 diet advancement as per surgery. Passing flatus, no bowel movement.denies nausea vomiting or diarrhea. Pain controlled. Denies chest p ain, palpitations or shortness of breath.afebrile,normal WBC. Hemoglobin 8.7. 08/01/2019 pain controlled. Tolerating diet with no nausea vomiting or diarrhea. Reporting flatus and small bowel movement this morning. positive ascites, abdomen more distended, IR consulted for paracentesis as per surgery. T-max 99.1, normal WBC. Objective - Vital Signs Vital signs: Vital Signs Temp 98.5 F 08/01/19 07:00 Pulse 73 08/01/19 08:00 Resp 17 08/01/19 08:00 BP 114/66 08/01/19 07:00 Pulse Ox 96 08/01/19 07:00 Intake & Output 07/31/19 08/01/19 08/01/19 18:59 06:59 18:59 Intake Total 340 Output Total 30 40 Balance -30 300 Intake: Intake, IV Titration 100 Amount Piperacillin-Tazobactam 3 100 .375 gm In Sodium Chloride 0.9% 100 ml @ 25 mls/hr IVPB Q8HR [facility] Rx# :[id number] Oral 240 Output: Drainage 30 40 Left Abdomen 30 40 Other: Voiding Method Toilet Toilet Toilet Urinal Urinal Urinal # Voids 1 - Exam General: [Patient sitting up in bed, alert and oriented times 3. no acute distress.] HEENT: [PERRL. EOMI. No pharyngeal erythema or exudate.] Neck: [No adenopathy.] Cardiac: [Heart regular in rate and rhythm. No S3. No S4. No clicks, rubs. No murmur.] Lungs: [Clear to auscultation bilaterally.] Abdomen: [No mass. No organomegaly. soft, distended. Bowel sounds presnt. Mid abdominal laparotomy dressing clean and dry, positive ascites noted.MARK with serous drainage. Extremes: [No edema no cyanosis no claudication normal pulses] Musculoskeletal: [No joint erythema, edema or tenderness.] Skin: [No rash.] Neurologic: [No lateralizing deficits. CN II - XII grossly intact.] - Labs CBC & Chem 7: 07/30/19 06:58 07/30/19 06:58 Assessment and Plan Assessment: (1) Irreducible left inguinal hernia Current Visit: Yes Status: Acute Code(s): K40.30 - UNIL INGUINAL HERNIA, W OBST, W/O GANGR, NOT SPCF RECUR SNOMED Code(s): 980902727 (2) Strangulated inguinal hernia Current Visit: Yes Status: Acute Code(s): K40.30 - UNIL INGUINAL HERNIA, W OBST, W/O GANGR, NOT SPCF RECUR SNOMED Code(s): 748180563 (3) Small bowel obstruction Current Visit: Yes Status: Acute Code(s): K56.609 - UNSP INTESTNL OBST, UNSP TO PARTIAL VERSUS COMPLETE OBST SNOMED Code(s): 557944129 (4) Abdominal pain Current Visit: No Status: Acute Code(s): R10.9 - UNSPECIFIED ABDOMINAL PAIN SNOMED Code(s): 69296365 (5) Acute alcoholic pancreatitis Current Visit: No Status: Acute Code(s): K85.20 - ALCOHOL INDUCED ACUTE P ANCREATITIS WITHOUT NECROSIS OR INFCT SNOMED Code(s): 203394689 (6) Acute blood loss anemia,iron deficient as well as postoperative,expected Current Visit: No Status: Acute Code(s): D62 - ACUTE POSTHEMORRHAGIC ANEMIA SNOMED Code(s): 889459186 (7) Acute on chronic pancreatitis Current Visit: No Status: Acute Code(s): K85.90 - ACUTE PANCREATITIS WITHOUT NECROSIS OR INFECTION, UNSP; K86.1 - OTHER CHRONIC PANCREATITIS SNOMED Code(s): 588167210 (8) Alcohol abuse Current Visit: No Status: Acute Code(s): F10.10 - ALCOHOL ABUSE, UNCOMPLICATED SNOMED Code(s): 96586833 (9) Alcoholic cirrhosis of liver with ascites Current Visit: No Status: Acute Code(s): K70.31 - ALCOHOLIC CIRRHOSIS OF LIVER WITH ASCITES SNOMED Code(s): 781604585 plan: Continue oncurrent medication regime ,monitoring and symptomatic treatment. Patient advised to not touch the mark drain. paracentesis pending. Increase ambulation as tolerated. Continue with aggressive pulmonary toileting with incentive spirometer reinforced.surgery discussing potential discharge tomorrow. Follow-up with PCP in 1 week. No alcohol, recreational drugs reinforced. The impression and plan of care has been dictated as directed. : I performed a history and examination of this patient, discussed the same with the dictator. I agree with the dictator's note ,documented as a scribe. Any additional findings or plans will be noted.
--- NOTE | 2019-08-01 14:05 | US ---
EXAMINATION TYPE: US abdomen limited DATE OF EXAM: 08/01/2019 COMPARISON: US CLINICAL HISTORY: evaluate ascites for paracentesis. ABD distention Moderate to severe amount of ascites visualized Limited scanning performed of the abdomen IMPRESSION: Moderate ascites
[2019-08-02] MEDS: HYDROcodone/APAP 5-325MG 1 EACH TAB PO PRN ×3 (02:12→14:19)
[2019-08-02] MEDS: HYDROmorphone 1 MG/ML 1 ML SYRINGE IVP PRN ×2 (06:04→19:54)
[2019-08-02 07:26] LABS: Mean Platelet Volume 8.7; Platelet Count 104 k/uL (150-450)
[2019-08-02 07:29] LABS: INR 1.3 (<1.2); Prothrombin Time 12.9 sec (9.0-12.0)
[2019-08-02] MEDS: SPIRONOLACTONE 25 MG TAB PO SCH (07:54)
[2019-08-02] MEDS: LACTULOSE 20 GM/30 ML CUP PO SCH ×2 (07:54→19:54)
[2019-08-02] MEDS: MAGNESIUM OXIDE 400 MG TAB PO SCH (07:54)
[2019-08-02] MEDS: THIAMINE 100 MG TAB PO SCH ×2 (07:56→19:54)
[2019-08-02] MEDS: PANTOPRAZOLE 40 MG TABLET PO SCH (07:56)
[2019-08-02] MEDS: ENOXAPARIN 40 MG/0.4 ML SYRINGE SQ SCH (07:56)
[2019-08-02] MEDS: NICOTINE 21MG/24HR PATCH TRANSDERM SCH (07:56)
[2019-08-02] MEDS: MULTIVITAMINS, THERA 1 EACH TAB PO SCH (08:04)
--- NOTE | 2019-08-02 09:56 | P.PN ---
Subjective Progress Note Date: 08/02/19 CHIEF COMPLAINT: Abdominal pain HISTORY OF PRESENT ILLNESS: Patient is status post exploratory laparotomy, small bowel resection, and repair of strangulated left inguinal hernia. Patient examined this morning at the bedside. Patient reports abdominal pain is worse today compared to yesterday. Abdominal ultrasound completed yesterday revealed moderate to severe amount of ascites. PHYSICAL EXAM: VITAL SIGNS: Reviewed. GENERAL: Well-developed in no acute distress. HEENT: No sclera icterus. Extraocular movements grossly intact. Moist buccal mucosa. Head is atraumatic, normocephalic. ABDOMEN: Ascites present. Distended. Dressing noted to abdomen. MAYRA drain intact with serous drainage NEUROLOGIC: Alert and oriented. Cranial nerves II through XII grossly intact. ASSESSMENT: 1. Abdominal pain 2. Small bowel obstruction secondary to left strangulated inguinal hernia with nonviable small bowel, s/p exploratory laparotomy, small bowel resection, and repair of strangulated left inguinal hernia 3. Acute blood loss anemia, secondary to surgery PLAN: Continue diet as tolerated Incentive spirometry Increase activity as tolerated Continue to monitor drainage from MAYRA drain Pain control. Continue [place] Patient to undergo paracentesis today Patient will be re-evaluated this afternoon for potential discharge home Nurse practitioner note has been reviewed by physician. Signing provider agrees with the documented findings, assessment, and plan of care. Objective - Vital Signs Vital signs: Vital Signs Temp 98.3 F 08/02/19 07:00 Pulse 90 08/02/19 07:00 Resp 18 08/02/19 07:00 BP 124/78 08/02/19 07:00 Pulse Ox 95 08/02/19 07:00 Intake & Output 08/01/19 08/02/19 08/02/19 18:59 06:59 18:59 Intake Total 296 Output Total 30 Balance -30 296 Intake: Oral 296 Output: Drainage 30 Left Abdomen 30 Other: Voiding Method Toilet Toilet Toilet Urinal Urinal Urinal # Voids 3 - Labs CBC & Chem 7: 08/02/19 07:04 07/30/19 06:58 Labs: Abnormal Lab Results - Last 24 Hours (Table) 08/02/19 08/02/19 Range/Units 07:04 07:07 Plt Count 104 L (150-450) k/uL PT 12.9 H (9.0-12.0) sec INR 1.3 H (<1.2)
--- NOTE | 2019-08-02 12:29 | P.PN ---
Subjective Progress Note Date: 08/02/19 Strangulated left inguinal hernia Patient status post laparotomy for left incarcerated inguinal hernia, with bowel resection secondary to necrotic small bowel in the hernia sac Patient underwent small bowel resection, with anastomosis apparently tolerated the procedure well. However or nutritional state secondary to cirrhotic liver disease and alcoholism places healing in a precarious state. Patient otherwise appears to be doing quite well in fact in the evening he eloped and just waited it out the doors of the hospital when security followed and escorted the patient back up to his room. 07/30/2019 Patient awake alert oriented 3, vital signs stable patient is afebrile, status post laparotomy for left incarcerated inguinal hernia postop day 4 Patient's prealbumin less than 5. Encouraging patient to consume as much protein as he possibly can 07/31/2019 diet advancement as per surgery. Passing flatus, no bowel movement.denies nausea vomiting or diarrhea. Pain controlled. Denies chest p ain, palpitations or shortness of breath.afebrile,normal WBC. Hemoglobin 8.7. 08/01/2019 pain controlled. Tolerating diet with no nausea vomiting or diarrhea. Reporting flatus and small bowel movement this morning. positive ascites, abdomen more distended, IR consulted for paracentesis as per surgery. T-max 99.1, normal WBC. 08/02/19 abd ultrasound reporting moderate to severe ascites, scheduled for paracentesis today. INR 1.3. Hemoglobin 8.7 Denies chest pain, palpitations or increasing shortness of breath. Maintaining O2 sats in the high 90s on room air. VSS. Afebrile. Objective - Vital Signs Vital signs: Vital Signs Temp 98.3 F 08/02/19 07:00 Pulse 83 08/02/19 12:01 Resp 14 08/02/19 12:01 BP 111/67 08/02/19 12:01 Pulse Ox 95 08/02/19 12:01 Intake & Output 08/01/19 08/02/19 08/02/19 18:59 06:59 18:59 Intake Total 296 Output Total 30 Balance -30 296 Intake: Oral 296 Output: Drainage 30 Left Abdomen 30 Other: Voiding Method Toilet Toilet Toilet Urinal Urinal Urinal # Voids 3 - Exam General: [Patient sitting up in bed, alert and oriented times 3. no acute distress.] HEENT: [PERRL. EOMI. No pharyngeal erythema or exudate.] Neck: [No adenopathy.] Cardiac: [Heart regular in rate and rhythm. No S3. No S4. No clicks, rubs. No murmur.] Lungs: [Clear to auscultation bilaterally. Abdomen: distended, positive ascites. Bowel sounds presnt.Mid abdominal laparotomy dressing clean and dry, MAYRA with serous drainage. Extremes: [No edema no cyanosis no claudication normal pulses] Skin: [No rash.] Neurologic: [No lateralizing deficits. CN II - XII grossly intact.] - Labs CBC & Chem 7: 08/02/19 07:04 07/30/19 06:58 Labs: Abnormal Lab Results - Last 24 Hours (Table) 08/02/19 08/02/19 Range/Units 07:04 07:07 Plt Count 104 L (150-450) k/uL PT 12.9 H (9.0-12.0) sec INR 1.3 H (<1.2) Assessment and Plan Assessment: (1) Irreducible left inguinal hernia Current Visit: Yes Status: Acute Code(s): K40.30 - UNIL INGUINAL HERNIA, W OBST, W/O GANGR, NOT SPCF RECUR SNOMED Code(s): 807062179 (2) Strangulated inguinal hernia Current Visit: Yes Status: Acute Code(s): K40.30 - UNIL INGUINAL HERNIA, W OBST, W/O GANGR, NOT SPCF RECUR SNOMED Code(s): 260873002 (3) Small bowel obstruction Current Visit: Yes Status: Acute Code(s): K56.609 - UNSP INTESTNL OBST, UNSP TO PARTIAL VERSUS COMPLETE OBST SNOMED Code(s): 623652674 (4) Abdominal pain Current Visit: No Status: Acute Code(s): R10.9 - UNSPECIFIED ABDOMINAL PAIN SNOMED Code(s): 03567887 (5) Acute alcoholic pancreatitis Current Visit: No Status: Acute Code(s): K85.20 - ALCOHOL INDUCED ACUTE PANCREATITIS WITHOUT NECROSIS OR INFCT SNOMED Code(s): 314024673 (6) Acute blood loss anemia,iron deficient as well as postoperative,expected Current Visit: No Status: Acute Code(s): D62 - ACUTE POSTHEMORRHAGIC ANEMIA SNOMED Code(s): 487728662 (7) Acute on chronic pancreatitis Current Visit: No Status: Acute Code(s): K85.90 - ACUTE PANCREATITIS WITHOUT NECROSIS OR INFECTION, UNSP; K86.1 - OTHER CHRONIC PANCREATITIS SNOMED Code(s): 563457880 (8) Alcohol abuse Current Visit: No Status: Acute Code(s): F10.10 - ALCOHOL ABUSE, UNCOMPLICATED SNOMED Code(s): 95689069 (9) Alcoholic cirrhosis of liver with ascites Current Visit: No Status: Acute Code(s): K70.31 - ALCOHOLIC CIRRHOSIS OF LIVER WITH ASCITES SNOMED Code(s): 805767810 plan: Continue oncurrent medication regime ,monitoring and symptomatic treatment. Paracentesis pending, with postprocedure albumin-as discussed with surgery. Encourage ambulation as tolerated. Maintain aggressive pulmonary toileting with incentive spirometer reinforced.surgery discussing potential discharge. Follow-up with PCP in 1 week. No alcohol, recreational drugs reinforced. The impression and plan of care has been dictated as directed. : I performed a history and examination of this patient, discussed the same with the dictator. I agree with the dictator's note ,documented as a scribe. Any additional findings or plans will be noted.
[2019-08-02] MEDS: ALBUMIN HUMAN 25% 50 ML in EMPTY BAG 1 BAG IVPB SCH ×3 (12:48→13:33)
[2019-08-02 13:14] VITALS: BMI 25.3
--- NOTE | 2019-08-02 13:46 | US ---
EXAMINATION TYPE: US paracentesis abd w/image DATE OF EXAM: 08/02/2019 COMPARISON: NONE HISTORY: Ascites. PROCEDURE: Maximal barrier technique was utilized. The skin overlying a suitable pocket of fluid was localized with ultrasound and the overlying skin was prepped and draped. Ultrasound was utilized with sterile technique. Lidocaine was used for local anesthesia and a skin henry made with a scalpel. Catheter was advanced under direct ultrasound guidance into a suitable pocket of fluid and approximately 6.5 liter s of serous sanguinous fluid were removed. Catheter was withdrawn and hemostasis achieved. There is no immediate complication; the patient is discharged in stable condition. IMPRESSION: STATUS POST ULTRASOUND GUIDED PARACENTESIS FOR PALLIATION OF ASCITES. THIS PROCEDURE WA S PERFORMED BY THE UNDERSIGNED.
[2019-08-02 20:14] LABS: Glucose,Whole Blood 131 mg/dL (75-99)
[2019-08-03] MEDS: HYDROmorphone 1 MG/ML 1 ML SYRINGE IVP PRN ×3 (03:34→08:56)
[2019-08-03 07:13] LABS: Glucose,Whole Blood 111 mg/dL (75-99)
[2019-08-03] MEDS: NICOTINE 21MG/24HR PATCH TRANSDERM SCH (08:56)
[2019-08-03] MEDS: MULTIVITAMINS, THERA 1 EACH TAB PO SCH (08:56)
[2019-08-03] MEDS: THIAMINE 100 MG TAB PO SCH ×2 (08:56→15:53)
[2019-08-03] MEDS: PANTOPRAZOLE 40 MG TABLET PO SCH (08:56)
[2019-08-03] MEDS: LACTULOSE 20 GM/30 ML CUP PO SCH ×2 (08:56→20:51)
[2019-08-03] MEDS: MAGNESIUM OXIDE 400 MG TAB PO SCH (08:57)
[2019-08-03] MEDS: SPIRONOLACTONE 25 MG TAB PO SCH (08:58)
[2019-08-03] MEDS: ENOXAPARIN 40 MG/0.4 ML SYRINGE SQ SCH (08:58)
[2019-08-03] MEDS ORDERED: BISACODYL 10 MG SUPP RECTAL STA (09:08)
[2019-08-03 09:23] LABS: Anisocytosis Slight; Basophils % (A) 0 %; Eosinophils # (A) 0.2 k/uL (0-0.7); Eosinophils % (A) 2 %; HGB 8.9 gm/dL (13.0-17.5); Hypochromasia Slight; Lymphocytes # (A) 0.9 k/uL (1.0-4.8); Lymphocytes % (A) 10 %; MCHC 31.8 g/dL (31.0-37.0); MCV 97.7 fL (80.0-100.0); Macrocytosis Slight; Mean Platelet Volume 9.1; Monocytes # (A) 0.9 k/uL (0-1.0); Monocytes % (A) 11 %; Neutrophils # (A) 6.1 k/uL (1.3-7.7); Neutrophils % (A) 73 %; Platelet Count 131 k/uL (150-450); RBC 2.87 m/uL (4.30-5.90); RDW 17.2 % (11.5-15.5); WBC 8.3 k/uL (3.8-10.6)
[2019-08-03 09:31] LABS: African American GFR (CKD) >90 (>60 ml/min/1.73 sqM); Anion Gap 7 mmol/L; Blood Urea Nitrogen 6 mg/dL (9-20); Calcium 7.9 mg/dL (8.4-10.2); Carbon Dioxide 21 mmol/L (22-30); Chloride 105 mmol/L (98-107); Glucose 110 mg/dL (74-99); Non-African American GFR(CKD) >90 (>60 ml/min/1.73 sqM); Sodium 133 mmol/L (137-145)
[2019-08-03] MEDS: HYDROcodone/APAP 5-325MG 1 EACH TAB PO PRN ×3 (10:17→20:50)
--- NOTE | 2019-08-03 10:26 | P.PN ---
Subjective Progress Note Date: 08/03/19 CHIEF COMPLAINT: Abdominal pain HISTORY OF PRESENT ILLNESS: Patient is status post exploratory laparotomy, small bowel resection, and repair of strangulated left inguinal hernia. Patient examined this morning at the bedside. Patient reporting abdominal pain 02/23 this morning. He underwent paracentesis yesterday with removal of 6.5 L. Patient reports last bowel movement was 2 days ago. He feels bloated. He is not passing flatus this morning. He did tolerate breakfast without nausea or vomiting. PHYSICAL EXAM: VITAL SIGNS: Reviewed. GENERAL: Well-developed in no acute distress. HEENT: No sclera icterus. Extraocular movements grossly intact. Moist buccal mucosa. Head is atraumatic, normocephalic. ABDOMEN: Distended. Dressing noted to abdomen. MAYRA drain intact with serous drainage NEUROLOGIC: Alert and oriented. Cranial nerves II through XII grossly intact. ASSESSMENT: 1. Abdominal pain 2. Small bowel obstruction secondary to left strangulated inguinal hernia with nonviable small bowel, s/p exploratory laparotomy, small bowel resection, and repair of strangulated left inguinal hernia 3. Acute blood loss anemia, secondary to surgery PLAN: Continue diet as tolerated Incentive spirometry Increase activity as tolerated Continue to monitor drainage from MAYRA drain Pain control. Continue [place] Continue lactulose. Begin Reglan 10mg IV q6 hours. Dulcolax x 1 Management of ascites per medical team Nurse practitioner note has been reviewed by physician. Signing provider agrees with the documented findings, assessment, and plan of care. Objective - Vital Signs Vital signs: Vital Signs Temp 98.9 F 08/03/19 08:08 Pulse 104 H 08/03/19 08:08 Resp 17 08/03/19 08:08 BP 119/73 08/03/19 08:08 Pulse Ox 95 08/03/19 08:08 Intake & Output 08/02/19 08/03/19 08/03/19 18:59 06:59 18:59 Intake Total 828 Balance 828 Weight 84.822 kg Intake: Oral 828 Other: Voiding Method Toilet Toilet Urinal Urinal # Voids 1 - Labs CBC & Chem 7: 08/03/19 09:02 08/03/19 09:02 Labs: Abnormal Lab Results - Last 24 Hours (Table) 08/02/19 08/03/19 08/03/19 Range/Units 20:12 07:11 09:02 RBC 2.87 L (4.30-5.90) m/uL Hgb 8.9 L (13.0-17.5) gm/dL Hct 28.0 L (39.0-53.0) % RDW 17.2 H (11.5-15.5) % Plt Count 131 L (150-450) k/uL Lymphocytes # 0.9 L (1.0-4.8) k/uL Sodium (137-145) mmol/L Carbon Dioxide (22-30) mmol/L BUN (9-20) mg/dL Creatinine (0.66-1.25) mg/dL Glucose (74-99) mg/dL POC Glucose (mg/dL) 131 H 111 H (75-99) mg/dL Calcium (8.4-10.2) mg/dL 08/03/19 Range/Units 09:02 RBC (4.30-5.90) m/uL Hgb (13.0-17.5) gm/dL Hct (39.0-53.0) % RDW (11.5-15.5) % Plt Count (150-450) k/uL Lymphocytes # (1.0-4.8) k/uL Sodium 133 L (137-145) mmol/L Carbon Dioxide 21 L (22-30) mmol/L BUN 6 L (9-20) mg/dL Creatinine 0.50 L (0.66-1.25) mg/dL Glucose 110 H (74-99) mg/dL POC Glucose (mg/dL) (75-99) mg/dL Calcium 7.9 L (8.4-10.2) mg/dL
--- NOTE | 2019-08-03 11:01 | P.PN ---
Subjective Progress Note Date: 08/03/19 Strangulated left inguinal hernia Patient status post laparotomy for left incarcerated inguinal hernia, with bowel resection secondary to necrotic small bowel in the hernia sac Patient underwent small bowel resection, with anastomosis apparently tolerated the procedure well. However or nutritional state secondary to cirrhotic liver disease and alcoholism places healing in a precarious state. Patient otherwise appears to be doing quite well in fact in the evening he eloped and just waited it out the doors of the hospital when security followed and escorted the patient back up to his room. 07/30/2019 Patient awake alert oriented 3, vital signs stable patient is afebrile, status post laparotomy for left incarcerated inguinal hernia postop day 4 Patient's prealbumin less than 5. Encouraging patient to consume as much protein as he possibly can 07/31/2019 diet advancement as per surgery. Passing flatus, no bowel movement.denies nausea vomiting or diarrhea. Pain controlled. Denies chest p ain, palpitations or shortness of breath.afebrile,normal WBC. Hemoglobin 8.7. 08/01/2019 pain controlled. Tolerating diet with no nausea vomiting or diarrhea. Reporting flatus and small bowel movement this morning. positive ascites, abdomen more distended, IR consulted for paracentesis as per surgery. T-max 99.1, normal WBC. 08/02/19 abd ultrasound reporting moderate to severe ascites, scheduled for paracentesis today. INR 1.3. Hemoglobin 8.7 Denies chest pain, palpitations or increasing shortness of breath. Maintaining O2 sats in the high 90s on room air. VSS. Afebrile. 08/03/2019 status post paracentesis yesterday, was 6.5 L drained. Received albumin postprocedure. Tolerated procedure well. This morning complaining of increased abdominal pain, no flatus, no bowel movement. Staff reports patient has been up ambulating in room. Receiving lactulose, Dulcolax suppository ordered. Consuming 100% of breakfast with no nausea vomiting or diarrhea. T-max 99.1, normal WBC. Objective - Vital Signs Vital signs: Vital Signs Temp 98.9 F 08/03/19 08:08 Pulse 104 H 08/03/19 08:08 Resp 17 08/03/19 08:08 BP 119/73 08/03/19 08:08 Pulse Ox 95 08/03/19 08:08 Intake & Output 08/02/19 08/03/19 08/03/19 18:59 06:59 18:59 Intake Total 828 Balance 828 Weight 84.822 kg Intake: Oral 828 Other: Voiding Method Toilet Toilet Urinal Urinal # Voids 1 - Exam General: [Patient sitting up in bed, alert and oriented times 3. no acute distress.] HEENT: [PERRL. EOMI. No pharyngeal erythema or exudate.] Neck: [No adenopathy.] Cardiac: [Heart regular in rate and rhythm. No S3. No S4. No clicks, rubs. No murmur.] Lungs: [Clear to auscultation bilaterally. Abdomen: Softer ,distended, hypoactive Bowel sounds presnt.Mid abdominal laparotomy dressing clean and dry, MAYRA with serous drainage. Extremes: [No edema no cyanosis no claudication normal pulses] Skin: [No rash.] Neurologic: [No lateralizing deficits. CN II - XII grossly intact.] - Labs CBC & Chem 7: 08/03/19 09:02 08/03/19 09:02 Labs: Abnormal Lab Results - Last 24 Hours (Table) 08/02/19 08/03/19 08/03/19 Range/Units 20:12 07:11 09:02 RBC 2.87 L (4.30-5.90) m/uL Hgb 8.9 L (13.0-17.5) gm/dL Hct 28.0 L (39.0-53.0) % RDW 17.2 H (11.5-15.5) % Plt Count 131 L (150-450) k/uL Lymphocytes # 0.9 L (1.0-4.8) k/uL Sodium (137-145) mmol/L Carbon Dioxide (22-30) mmol/L BUN (9-20) mg/dL Creatinine (0.66-1.25) mg/dL Glucose (74-99) mg/dL POC Glucose (mg/dL) 131 H 111 H (75-99) mg/dL Calcium (8.4-10.2) mg/dL 08/03/19 Range/Units 09:02 RBC (4.30-5.90) m/uL Hgb (13.0-17.5) gm/dL Hct (39.0-53.0) % RDW (11.5-15.5) % Plt Count (150-450) k/uL Lymphocytes # (1.0-4.8) k/uL Sodium 133 L (137-145) mmol/L Carbon Dioxide 21 L (22-30) mmol/L BUN 6 L (9-20) mg/dL Creatinine 0.50 L (0.66-1.25) mg/dL Glucose 110 H (74-99) mg/dL POC Glucose (mg/dL) (75-99) mg/dL Calcium 7.9 L (8.4-10.2) mg/dL Assessment and Plan Assessment: (1) Irreducible left inguinal hernia Current Visit: Yes Status: Acute Code(s): K40.30 - UNIL INGUINAL HERNIA, W OBST, W/O GANGR, NOT SPCF RECUR SNOMED Code(s): 601023095 (2) Strangulated inguinal hernia Current Visit: Yes Status: Acute Code(s): K40.30 - UNIL INGUINAL HERNIA, W OBST, W/O GANGR, NOT SPCF RECUR SNOMED Code(s): 052280744 (3) Small bowel obstruction Current Visit: Yes Status: Acute Code(s): K56.609 - UNSP INTESTNL OBST, UNSP TO PARTIAL VERSUS COMPLETE OBST SNOMED Code(s): 649712461 (4) Abdominal pain Current Visit: No Status: Acute Code(s): R10.9 - UNSPECIFIED ABDOMINAL PAIN SNOMED Code(s): 75555194 (5) Acute alcoholic pancreatitis Current Visit: No Status: Acute Code(s): K85.20 - ALCOHOL INDUCED ACUTE PANCREATITIS WITHOUT NECROSIS OR INFCT SNOMED Code(s): 618085903 (6) Acute blood loss anemia,iron deficient as well as postoperative,expected Current Visit: No Status: Acute Code(s): D62 - ACUTE POSTHEMORRHAGIC ANEMIA SNOMED Code(s): 478722424 (7) Acute on chronic pancreatitis Current Visit: No Status: Acute Code(s): K85.90 - ACUTE PANCREATITIS WITHOUT NECROSIS OR INFECTION, UNSP; K86.1 - OTHER CHRONIC PANCREATITIS SNOMED Code(s): 003655716 (8) Alcohol abuse Current Visit: No Status: Acute Code(s): F10.10 - ALCOHOL ABUSE, UNCOMPLICATED SNOMED Code(s): 70070840 (9) Alcoholic cirrhosis of liver with ascites Current Visit: No Status: Acute Code(s): K70.31 - ALCOHOLIC CIRRHOSIS OF LIVER WITH ASCITES SNOMED Code(s): 765907705 plan: Continue oncurrent medication regime ,monitoring and symptomatic treatment. Maintained on lactulose, Dulcolax suppository ordered, response pending .From medical standpoint, recommend GI consult to manage ascites, as previously done in the past in this patient with multiple complex medical issues.Encourage ambulation as tolerated. COntinue aggressive pulmonary toileting with incentive spirometer reinforced. Follow-up with PCP in 1 week. The impression and plan of care has been dictated as directed. : I performed a history and examination of this patient, discussed the same with the dictator. I agree with the dictator's note ,documented as a scribe. Any ad ditional findings or plans will be noted.
[2019-08-03] MEDS: METOCLOPRAMIDE 5 MG/ML 2 ML VIAL IVP SCH ×2 (12:06→15:51)
[2019-08-03 21:04] VITALS: RESP 18; TEMP 98.3
[2019-08-04] MEDS: METOCLOPRAMIDE 5 MG/ML 2 ML VIAL IVP SCH ×2 (00:20→05:31)
[2019-08-04] MEDS: HYDROcodone/APAP 5-325MG 1 EACH TAB PO PRN ×2 (02:47→08:44)
[2019-08-04 07:36] VITALS: BP 112/69; PULSE 77
[2019-08-04] MEDS: LACTULOSE 20 GM/30 ML CUP PO SCH (08:43)
[2019-08-04] MEDS: PANTOPRAZOLE 40 MG TABLET PO SCH (08:44)
[2019-08-04] MEDS: MULTIVITAMINS, THERA 1 EACH TAB PO SCH (08:44)
[2019-08-04] MEDS: NICOTINE 21MG/24HR PATCH TRANSDERM SCH (08:44)
[2019-08-04] MEDS: THIAMINE 100 MG TAB PO SCH (08:44)
[2019-08-04] MEDS: SPIRONOLACTONE 25 MG TAB PO SCH (08:44)
[2019-08-04] MEDS: ENOXAPARIN 40 MG/0.4 ML SYRINGE SQ SCH (08:45)
[2019-08-04] MEDS: MAGNESIUM OXIDE 400 MG TAB PO SCH (08:45)
--- NOTE | 2019-08-04 10:37 | P.DS ---
Providers Date of admission: 07/26/19 07:00 Expected date of discharge: 08/04/19 Attending physician: Jerson Aranda Consults: 07/26/19 10:35 Consult Physician Routine Consulting Provider: James Meza Jr Consult Reason/Comments: medical management Do you want consulting provider notified?: Yes 08/03/19 12:33 Consult Physician Routine Consulting Provider: Bernie Huff Consult Reason/Comments: management of ascites Do you want consulting provider notified?: Yes Primary care physician: James Meza [facility] Hospital Course: This 44-year-old male who was admitted to the hospital with strangulated left inguinal hernia. Patient underwent emergent exploratory laparotomy with bowel resection. Please see chart for details. Patient's hospital course was complicated due to his uncontrolled ascites. Please see chart for details Procedures: Exploratory laparotomy with small bowel resection Patient Condition at Discharge: Fair Plan - Discharge Summary Discharge Rx Participant: No New Discharge Prescriptions: Continue Hydrocodone/Acetaminophen [[place] 10-325] 1 tab PO Q8H PRN PRN Reason: Pain No Action Thiamine [Vitamin B-1] 100 mg PO DAILY #30 tablet Multivitamins, Thera [Multivitamin (formulary)] 1 tab PO DAILY Potassium Chloride ER [K-Dur 20] 20 meq PO DAILY #10 tab Magnesium Oxide [Mag-Ox] 400 mg PO DAILY #30 tablet Furosemide [Lasix] 40 mg PO BID Spironolactone [Aldactone] 50 mg PO DAILY Lactulose [Cephulac] 20 gm PO BID Pantoprazole [Protonix] 40 mg PO DAILY diphenhydrAMINE [Benadryl] 25 mg PO Q6H PRN cap PRN Reason: Allergic Reaction Discharge Medication List Thiamine [Vitamin B-1] 100 mg PO DAILY #30 tablet 09/03/17 [Rx] Multivitamins, Thera [Multivitamin (formulary)] 1 tab PO DAILY 12/14/18 [History] Magnesium Oxide [Mag-Ox] 400 mg PO DAILY #30 tablet 01/22/19 [Rx] Potassium Chloride ER [K-Dur 20] 20 meq PO DAILY #10 tab 01/22/19 [Rx] Furosemide [Lasix] 40 mg PO BID 02/03/19 [History] Hydrocodone/Acetaminophen [[place] 10-325] 1 tab PO Q8H PRN 07/05/19 [History] Lactulose [Cephulac] 20 gm PO BID 07/05/19 [History] Pantoprazole [Protonix] 40 mg PO DAILY 07/05/19 [History] Spironolactone [Aldactone] 50 mg PO DAILY 07/05/19 [History] diphenhydrAMINE [Benadryl] 25 mg PO Q6H PRN cap 07/07/19 [Rx] Follow up Appointment(s)/Referral(s): James Meza Jr, DO [Primary Care Provider] - 1-2 days Jerson Aranda MD [STAFF PHYSICIAN] - 1 Week Activity/Diet/Wound Care/Special Instructions: pt belongings (pants, jacket, shoes) in top right locker. No driving while taking [place] No lifting over 10 pounds You may shower. No soaking or tub baths Very light activity until you are reevaluated at your follow up appointment with your surgeon
== END 2019-08-04 12:30 | disposition home or self-care (01) | DRG 329 ==
LOC: EC 04:22 → 4SSUR 07:00
PROVIDERS: ADMIT Surgery; ATTEND Surgery
PROC: 0YQ60ZZ Repair Left Inguinal Region, Open Approach (ICD-10-PCS; principal; 2019-07-26 14:45)
PROC: 0DT80ZZ Resection of Small Intestine, Open Approach (ICD-10-PCS; principal; 2019-07-26 14:45)
DX: K40.30 Unilateral inguinal hernia, with obstruction, without gangrene, not specified as recurrent (principal); K85.20 Alcohol induced acute pancreatitis without necrosis or infection; K55.029 Acute infarction of small intestine, extent unspecified; D62 Acute posthemorrhagic anemia; K76.6 Portal hypertension; F17.200 Nicotine dependence, unspecified, uncomplicated; F43.10 Post-traumatic stress disorder, unspecified; J45.909 Unspecified asthma, uncomplicated; K70.31 Alcoholic cirrhosis of liver with ascites; Z79.899 Other long term (current) drug therapy; Z87.442 Personal history of urinary calculi; Z90.49 Acquired absence of other specified parts of digestive tract; Z98.890 Other specified postprocedural states; Z86.14 Personal history of Methicillin resistant Staphylococcus aureus infection; Z82.49 Family history of ischemic heart disease and other diseases of the circulatory system; Z87.01 Personal history of pneumonia (recurrent)
CPT/HCPCS: 36415; 49083; 64486; 74177; 76705; 80048; 80053; 80320; 81003; 82150; 83605; 83690; 84132; 84134; 85025; 85049; 85610; 88302; 88307

== ENCOUNTER 2019-08-07 10:17 | Emergency (ER) | payer OTHER ==
[2019-08-07] MEDS ORDERED: MORPHINE SULFATE 4 MG/ML SYRINGE IV STA (10:31)
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
[2019-08-07 11:02] LABS: Anisocytosis Slight; Basophils # (A) 0.1 k/uL (0-0.2); Basophils % (A) 1 %; Eosinophils # (A) 0.1 k/uL (0-0.7); Eosinophils % (A) 1 %; HCT 33.6 % (39.0-53.0); HGB 10.5 gm/dL (13.0-17.5); Hypochromasia Slight; Lymphocytes # (A) 1.2 k/uL (1.0-4.8); Lymphocytes % (A) 12 %; MCH 30.1 pg (25.0-35.0); MCHC 31.3 g/dL (31.0-37.0); MCV 96.2 fL (80.0-100.0); Macrocytosis Slight; Mean Platelet Volume 8.2; Monocytes # (A) 0.8 k/uL (0-1.0); Monocytes % (A) 8 %; Neutrophils # (A) 7.9 k/uL (1.3-7.7); Neutrophils % (A) 76 %; RBC 3.49 m/uL (4.30-5.90); RDW 17.2 % (11.5-15.5); WBC 10.3 k/uL (3.8-10.6)
[2019-08-07 11:05] LABS: Platelet Count 275 k/uL (150-450)
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
[2019-08-07 11:14] LABS: ALT 17 U/L (4-49); AST 62 U/L (17-59); African American GFR (CKD) >90 (>60 ml/min/1.73 sqM); Albumin 2.9 g/dL (3.5-5.0); Alkaline Phosphatase 145 U/L (38-126); Amylase <30 U/L (30-110); Anion Gap 9 mmol/L; Blood Urea Nitrogen 6 mg/dL (9-20); Calcium 8.3 mg/dL (8.4-10.2); Carbon Dioxide 20 mmol/L (22-30); Chloride 114 mmol/L (98-107); Glucose 101 mg/dL (74-99); Non-African American GFR(CKD) >90 (>60 ml/min/1.73 sqM); Potassium 4.2 mmol/L (3.5-5.1); Sodium 143 mmol/L (137-145); Total Bilirubin 1.7 mg/dL (0.2-1.3); Total Protein 6.3 g/dL (6.3-8.2)
[2019-08-07 11:21] LABS: INR 1.1 (<1.2); Partial Thromboplastin Time 25.6 sec (22.0-30.0); Prothrombin Time 11.4 sec (9.0-12.0)
[2019-08-07 11:43] LABS: Appearance,Urine Clear (Clear); Bilirubin,Urine Negative (Negative); Blood,Urine Negative (Negative); Color,Urine Yellow; Glucose,Urine (UA) Negative (Negative); Ketones,Urine Negative (Negative); Leukocyte Esterase,Urine Negative (Negative); Nitrite,Urine Negative (Negative); PH, Urine 6.5 (5.0-8.0); Protein,Urine Negative (Negative); Specific Gravity,Urine 1.015 (1.001-1.035)
[2019-08-07 11:50] LABS: Alcohol 123 mg/dL
[2019-08-07] MEDS ORDERED: KETOROLAC 30 MG/ML 1 ML VIAL IVP STA (13:09)
[2019-08-07 13:21] VITALS: RESP 18
[2019-08-07 13:39] VITALS: BP 117/91; PULSE 79; TEMP 98.7
== END 2019-08-07 13:39 | disposition home or self-care (01) ==
LOC: EC 10:17
DX: F10.129 Alcohol abuse with intoxication, unspecified (principal); S06.0X0A Concussion without loss of consciousness, initial encounter; K74.60 Unspecified cirrhosis of liver; R18.8 Other ascites; S00.81XA Abrasion of other part of head, initial encounter; R79.89 Other specified abnormal findings of blood chemistry; Z97.8 Presence of other specified devices; F17.200 Nicotine dependence, unspecified, uncomplicated; Z79.899 Other long term (current) drug therapy; Z87.19 Personal history of other diseases of the digestive system; Z90.49 Acquired absence of other specified parts of digestive tract; Y90.5 Blood alcohol level of 100-119 mg/100 ml; X58.XXXA Exposure to other specified factors, initial encounter; Y93.89 Activity, other specified
CPT/HCPCS: 36415; 80053; 82150; 83605; 83690; 85025; 85610; 85730; 81003; 70450; 99284; 96374; 96375; G0480; J2270; J1885; 80320

== ENCOUNTER 2019-10-28 17:21 | Inpatient (IN) | payer OTHER ==
[2019-10-28] MEDS ORDERED: SODIUM CHLORIDE 0.9% 500 ML 500 ML IV STA (18:21)
[2019-10-28 18:40] LABS: Appearance,Urine Cloudy (Clear); Bilirubin,Urine Negative (Negative); Blood,Urine Moderate (Negative); Calcium Oxalate Crystals,Urine Few /hpf; Color,Urine Yellow; Glucose,Urine (UA) Negative (Negative); Ketones,Urine Negative (Negative); Leukocyte Esterase,Urine Negative (Negative); Mucus,Urine Many /hpf; Nitrite,Urine Negative (Negative); PH, Urine 6.5 (5.0-8.0); Protein,Urine 1+ (Negative); RBC,Urine 82 /hpf (0-5); Specific Gravity,Urine 1.016 (1.001-1.035); Urobilinogen,Urine >12.0 mg/dL (<2.0); WBC,Urine 5 /hpf (0-5)
[2019-10-28 18:43] LABS: Anisocytosis Slight; Basophils # (A) 0.1 k/uL (0-0.2); Basophils % (A) 2 %; Eosinophils # (A) 0.1 k/uL (0-0.7); Eosinophils % (A) 1 %; HCT 36.9 % (39.0-53.0); Hypochromasia Slight; Lymphocytes # (A) 1.6 k/uL (1.0-4.8); Lymphocytes % (A) 24 %; MCH 30.4 pg (25.0-35.0); MCHC 32.6 g/dL (31.0-37.0); MCV 93.3 fL (80.0-100.0); Mean Platelet Volume 7.5; Monocytes # (A) 0.7 k/uL (0-1.0); Monocytes % (A) 10 %; Neutrophils # (A) 3.8 k/uL (1.3-7.7); Neutrophils % (A) 59 %; Platelet Count 136 k/uL (150-450); RBC 3.96 m/uL (4.30-5.90); RDW 18.4 % (11.5-15.5); WBC 6.5 k/uL (3.8-10.6)
[2019-10-28 18:48] LABS: INR 1.2 (<1.2)
[2019-10-28 18:50] LABS: ALT 32 U/L (4-49); AST 117 U/L (17-59); African American GFR (CKD) >90 (>60 ml/min/1.73 sqM); Albumin 3.9 g/dL (3.5-5.0); Alkaline Phosphatase 177 U/L (38-126); Anion Gap 11 mmol/L; Blood Urea Nitrogen 7 mg/dL (9-20); Calcium 8.5 mg/dL (8.4-10.2); Carbon Dioxide 19 mmol/L (22-30); Chloride 112 mmol/L (98-107); Glucose 119 mg/dL (74-99); Non-African American GFR(CKD) >90 (>60 ml/min/1.73 sqM); Potassium 3.6 mmol/L (3.5-5.1); Sodium 142 mmol/L (137-145); Total Bilirubin 1.8 mg/dL (0.2-1.3); Total Protein 7.8 g/dL (6.3-8.2)
[2019-10-28 18:56] LABS: Amphetamine Screen,Urine Not Detected (NotDetected); Barbiturate Screen,Urine Not Detected (NotDetected); Benzodiazepines Screen,Urine Not Detected (NotDetected); Cocaine Screen,Urine Detected (NotDetected); Methadone Screen, Urine Not Detected (NotDetected); Opiate Screen,Urine Not Detected (NotDetected); Oxycodone Screen, Urine Not Detected (NotDetected); Phencyclidine Screen,Urine Not Detected (NotDetected); Tricyclic Antidepressant,Urine Not Detected (NotDetected); Urn Cannabinoid Scrn Detected (NotDetected)
[2019-10-28 18:59] LABS: Alcohol 420 mg/dL
--- NOTE | 2019-10-28 19:07 | ED ---
General Adult HPI - General Source: patient, RN notes reviewed, old records reviewed Mode of arrival: ambulatory Limitations: no limitations <Kevon Hannah - Last Filed: 10/28/19 21:24> <Digna Arriaza - Last Filed: 11/05/19 23:51> - General Chief complaint: Alcohol Stated complaint: detox-alcohol Time Seen by Provider: 10/28/19 17:37 - History of Present Illness Initial comments: 44-year-old male patient with complex past medical history stemming mostly from alcohol abuse including liver cirrhosis ascites portal hypertension and pancreatitis a lower GI bleed esophageal varices with banding presents to ED w ith chief complaint alcohol intoxication and request for help with detox. Patient reports that he wants to go to [facility] however they will not take him until tomorrow, also does report that he drank a fifth of liquor today. Patient also reports that her last month he has had bilateral flank pain. States that it feels like his history of kidney stones/ Also reports pain in his left foot he states he broke his foot will not elaborate how. States that this was approximately 1 month as well. Denies any recent falls or trauma. Denies any other acute complaints. Systemic: Pt denies fatigue, fever/chills, rash. Pt denies weakness, night sweats, weight loss. Neuro: Pt denies headache, visual disturbances, syncope or pre-syncope. HEENT: Pt denies ocular discharge or irritation, otalgia, rhinorrhea, pharyngitis or notable lymphadenopathy. Cardiopulmonary: Pt denies chest pain, SOB, heart palpitations, dyspnea on exertion. Abdominal/GI: Pt denies n/v/d. : Pt denies dysuria, burning w/ urination, frequency/urgency. Denies new onset urinary or bowel incontinence. MSK: Pt denies myalgia, loss of strength or function in extremities. Neuro: Pt denies new onset weakness, paresthesias. (Kevon Hannah) - Related Data Home Medications Medication Instructions Recorded Confirmed Multivitamins, Thera [Multivitamin 1 tab PO DAILY 12/14/18 11/04/19 (formulary)] Furosemide [Lasix] 40 mg PO DAILY 02/03/19 11/04/19 Spironolactone [Aldactone] 50 mg PO DAILY 07/05/19 11/04/19 Folic Acid 1 mg PO DAILY 10/28/19 11/04/19 Previous Rx's Medication Instructions Recorded Thiamine [Vitamin B-1] 100 mg PO DAILY #30 tablet 09/03/17 Potassium Chloride ER [K-Dur 20] 20 meq PO DAILY #10 tab 01/22/19 Lactulose [Cephulac] 30 gm PO TID #480 ml 11/01/19 Magnesium Oxide [Mag-Ox] 400 mg PO BID #60 tab 11/01/19 Nicotine 21Mg/24Hr Patch [Habitrol] 1 patch TRANSDERM DAILY #30 patch 11/01/19 Pantoprazole Sodium [Protonix] 40 mg PO BID #60 tablet. 11/01/19 Allergies Allergy/AdvReac Type Severity Reaction Status Date / Time No Known Allergies Allergy Verified 11/04/19 22:03 Review of Systems ROS Other: All systems not noted in ROS Statement are negative. <Kevon Hannah - Last Filed: 10/28/19 21:24> ROS Other: All systems not noted in ROS Statement are negative. <Digna Arriaza - Last Filed: 11/05/19 23:51> ROS Statement: Those systems with pertinent positive or pertinent negative responses have been documented in the HPI. Past Medical History Past Medical History: Asthma, GI Bleed, Liver Disease, Pneumonia, Renal Disease, Skin Disorder Additional Past Medical History / Comment(s): Liver cirrhosis, portal HTN, a bdominal ascities, pancreatitis, upper and lower GI bleeds, bleeding ulcers, esophageal varicies-banded, thrombocytopemia, chronic anemia, gallstones, nephrolithiasis/hematuria, L inguinal hernia, psoriasis. History of Any Multi-Drug Resistant Organisms: MRSA Date of last positivie culture/infection: 12/09/13 MDRO Source:: Right first finger Past Surgical History: Appendectomy, Cholecystectomy, Hernia Repair, Orthopedic Surgery Additional Past Surgical History / Comment(s): EGDs/varicies banding/colonoscopy, paracentesis, right hand tendon repair, right knee arthroscopy, cystoscopy for kidney stone removal, right hand ring finger surgery. surgery for umbilical hernia, Past Anesthesia/Blood Transfusion Reactions: Previous Problems w/ Anesthesia, Motion Sickness Additional Past Anesthesia/Blood Transfusion Reaction / Comment(s): Woke up during scope procedure. Past Psychological History: PTSD Smoking Status: Current every day smoker Past Alcohol Use History: Abuse, Daily Past Drug Use History: Cocaine, Heroin, Marijuana - Past Family History Mother Family Medical History: No Reported History Additional Family Medical History / Comment(s): Mother has health issues from a MVA-pt did not elaborate. Father Family Medical History: Vascular Disorder Additional Family Medical History / Comment(s): Prostate issues grandpa. Brain aneurysm father. <Kevon Hannah - Last Filed: 10/28/19 21:24> General Exam Limitations: no limitations <Kevon Hannah - Last Filed: 10/28/19 21:24> - General Exam Comments Initial Comments: Constitutional: NAD, AOX3, Pt has pleasant affect. HEENT: NC/AT, trachea midline, neck supple, no lymphadenopathy. Posterior pharynx non erythematous, without exudates. External ears appear normal, without discharge. Mucous membranes moist. Eyes PERRLA, EOM intact. There is no scleral icterus. No pallor noted. Cardiopulmonary: RRR, no murmurs, rubs or gallops, no JVD noted. Lungs CTAB in anterior and posterior silva. No peripheral edema. Abdominal exam: Abdomen moderately distended consistent with ascites. Abdomen mildly tender to flanks bilaterally. Bowel sounds active in LLQ. No ecchymosis Neuro: CN II-XII grossly intact. No nuchal rigidity. No raccon eyes, no henson sign, no hemotympanum. No cervical spinal tenderness. MSK: Left foot nontender to palpation. No skin changes. Neurovascularly intact. No posterior calf tenderness bilaterally, homans sign negative bilaterally. Posterior tibialis and radial pulse +2 bilaterally. Sensation intact in upper and lower extremities. Full active ROM in upper and lower extremities, 5/5 stregnth. (Kevon Hannah) Course Vital Signs 10/28/19 10/28/19 17:29 21:35 Temperature 97.5 F L 98.1 F Pulse Rate 91 83 Respiratory 18 16 Rate Blood Pressure 139/87 118/73 O2 Sat by Pulse 99 97 Oximetry Medical Decision Making - Lab Data Result diagrams: 10/28/19 18:16 10/28/19 18:16 <Kevon Hannah - Last Filed: 10/28/19 21:24> - Lab Data Result diagrams: 10/31/19 06:49 11/01/19 07:22 <SofiyaDigna Jesus - Last Filed: 11/05/19 23:51> - Medical Decision Making 44-year-old male patient with complex past medical history stemming mostly from alcohol abuse including liver cirrhosis ascites portal hypertension and pancreatitis a lower GI bleed esophageal varices with banding presents to ED with chief complaint alcohol intoxication and request for help with detox. Patient reports that he wants to go to [facility] how ever they will not take him until tomorrow, also does report that he drank a fifth of liquor today. Patient also reports that her last month he has had bilateral flank pain. States that it feels like his history of kidney stones. Also reports pain in his left foot he states he broke his foot will not elaborate how. States that this was approximately 1 month as well. Denies any recent falls or trauma. Denies any other acute complaints. Patient vital signs are stable, afebrile. Pt VSS, afebrile. Physical exam displayed: Abdomen moderately distended consistent with ascites. Abdomen mildly tender to flanks bilaterally. Bowel sounds active in LLQ. No ecchymosis. Left foot nontender to palpation. No skin changes. Neurovascularly intact. The investigations are obtained, these do appear an baseline. Lactic acid is mildly elevated at 2.4. UA displayed 2 white blood cells. Tox screen positive for methamphetamine and cocaine and marijuana patient's alcohol level is 420. Patient has had 3 CTs of the abdomen and the pelvis within the last 3 months. As patient pain is long- term in nature and states that it feels similar to kidney stones in the past a plain film and ultrasound was ordered. KUB displayed evidence of abdominal ascites was increased compared to old exam. No free air. Renal ultrasound displayed no evidence of renal mass or obstruction. Urinary bladder appears normal. Moderate abdominal ascites. Plain film of foot was negative. Due to patient's elevated alcohol level patient will be admitted for observation placed on [facility] protocol. Case discussed with Dr. Arriaza. (Kevon Hannah) I was available for consultation in the emergency department. The history and physical exam were done by the midlevel provider. I was consulted for this patients care. I reviewed the case with the midlevel provider and based on their presentation of the patient, I agree with the assessment, medical decision making and plan of care as documented. I discussed the case with Dr. Fox who agreed to admit the patient. Chart was dictated using [employer] dictation software. Attempts were made to correct any dictation errors however some typographical errors may persist. Patient was seen during a national state of emergency due to the Covid-19 pandemic. (Digna Arriaza) - Lab Data Lab Results 10/28/19 10/28/19 10/28/19 Range/Units 18:16 18:16 18:16 WBC (3.8-10.6) k/uL RBC (4.30-5.90) m/uL Hgb (13.0-17.5) gm/dL Hct (39.0-53.0) % MCV (80.0-100.0) fL MCH (25.0-35.0) pg MCHC (31.0-37.0) g/dL RDW (11.5-15.5) % Plt Count (150-450) k/uL Neutrophils % % Lymphocytes % % Monocytes % % Eosinophils % % Basophils % % Neutrophils # (1.3-7.7) k/uL Lymphocytes # (1.0-4.8) k/uL Monocytes # (0-1.0) k/uL Eosinophils # (0-0.7) k/uL Basophils # (0-0.2) k/uL Manual Slide Review Hypochromasia Anisocytosis Macrocytosis PT 12.0 (9.0-12.0) sec INR 1.2 H (<1.2) APTT 27.0 (22.0-30.0) sec Sodium 142 (137-145) mmol/L Potassium 3.6 (3.5-5.1) mmol/L Chloride 112 H (98-107) mmol/L Carbon Dioxide 19 L (22-30) mmol/L Anion Gap 11 mmol/L BUN 7 L (9-20) mg/dL Creatinine 0.41 L (0.66-1.25) mg/dL Est GFR (CKD-EPI)AfAm >90 (>60 ml/min/1.73 sqM) Est GFR (CKD-EPI)NonAf >90 (>60 ml/min/1.73 sqM) Glucose 119 H (74-99) mg/dL Lactic Ac Sepsis Rflx Plasma Lactic Acid Balaji (0.7-2.0) mmol/L Calcium 8.5 (8.4-10.2) mg/dL Magnesium (1.6-2.3) mg/dL Total Bilirubin 1.8 H (0.2-1.3) mg/dL AST 117 H (17-59) U/L ALT 32 (4-49) U/L Alkaline Phosphatase 177 H (38-126) U/L Ammonia (<30) umol/L Total Protein 7.8 (6.3-8.2) g/dL Albumin 3.9 (3.5-5.0) g/dL Lipase 338 H (23-300) U/L Urine Color Urine Appearance (Clear) Urine pH (5.0-8.0) Ur Specific [place] (1.001-1.035) Urine Protein (Negative) Urine Glucose (UA) (Negative) Urine Ketones (Negative) Urine Blood (Negative) Urine Nitrite (Negative) Urine Bilirubin (Negative) Urine Urobilinogen (<2.0) mg/dL Ur Leukocyte Esterase (Negative) Urine RBC (0-5) /hpf Urine WBC (0-5) /hpf Calcium Oxalate Crystal (None) /hpf Urine Mucus (None) /hpf Urine Opiates Screen Not Detected (NotDetected) Ur Oxycodone Screen Not Detected (NotDetected) Urine Methadone Screen Not Detected (NotDetected) Ur Propoxyphene Screen Not Detected (NotDetected) Ur Barbiturates Screen Not Detected (NotDetected) U Tricyclic Antidepress Not Detected (NotDetected) Ur Phencyclidine Scrn Not Detected (NotDetected) Ur Amphetamines Screen Not Detected (NotDetected) U Methamphetamines Scrn Detected H (NotDetected) U Benzodiazepines Scrn Not Detected (NotDetected) Urine Cocaine Screen Detected H (NotDetected) U Marijuana (THC) Screen Detected H (NotDetected) Serum Alcohol 420 H* mg/dL Coronavirus (PCR) (Not Detected) 10/28/19 10/28/19 10/28/19 Range/Units 18:16 18:16 18:16 WBC 6.5 (3.8-10.6) k/uL RBC 3.96 L (4.30-5.90) m/uL Hgb 12.0 L (13.0-17.5) gm/dL Hct 36.9 L (39.0-53.0) % MCV 93.3 (80.0-100.0) fL MCH 30.4 (25.0-35.0) pg MCHC 32.6 (31.0-37.0) g/dL RDW 18.4 H (11.5-15.5) % Plt Count 136 L (150-450) k/uL Neutrophils % 59 % Lymphocytes % 24 % Monocytes % 10 % Eosinophils % 1 % Basophils % 2 % Neutrophils # 3.8 (1.3-7.7) k/uL Lymphocytes # 1.6 (1.0-4.8) k/uL Monocytes # 0.7 (0-1.0) k/uL Eosinophils # 0.1 (0-0.7) k/uL Basophils # 0.1 (0-0.2) k/uL Manual Slide Review Hypochromasia Slight Anisocytosis Slight Macrocytosis PT (9.0-12.0) sec INR (<1.2) APTT (22.0-30.0) sec Sodium (137-145) mmol/L Potassium (3.5-5.1) mmol/L Chloride (98-107) mmol/L Carbon Dioxide (22-30) mmol/L Anion Gap mmol/L BUN (9-20) mg/dL Creatinine (0.66-1.25) mg/dL Est GFR (CKD-EPI)AfAm (>60 ml/min/1.73 sqM) Est GFR (CKD-EPI)NonAf (>60 ml/min/1.73 sqM) Glucose (74-99) mg/dL Lactic Ac Sepsis Rflx Plasma Lactic Acid Balaji 2.4 H* (0.7-2.0) mmol/L Calcium (8.4-10.2) mg/dL Magnesium (1.6-2.3) mg/dL Total Bilirubin (0.2-1.3) mg/dL AST (17-59) U/L ALT (4-49) U/L Alkaline Phosphatase (38-126) U/L Ammonia (<30) umol/L Total Protein (6.3-8.2) g/dL Albumin (3.5-5.0) g/dL Lipase (23-300) U/L Urine Color Yellow Urine Appearance Cloudy (Clear) Urine pH 6.5 (5.0-8.0) Ur Specific [place] 1.016 (1.001-1.035) Urine Protein 1+ H (Negative) Urine Glucose (UA) Negative (Negative) Urine Ketones Negative (Negative) Urine Blood Moderate H (Negative) Urine Nitrite Negative (Negative) Urine Bilirubin Negative (Negative) Urine Urobilinogen >12.0 (<2.0) mg/dL Ur Leukocyte Esterase Negative (Negative) Urine RBC 82 H (0-5) /hpf Urine WBC 5 (0-5) /hpf Calcium Oxalate Crystal Few H (None) /hpf Urine Mucus Many H (None) /hpf Urine Opiates Screen (NotDetected) Ur Oxycodone Screen (NotDetected) Urine Methadone Screen (NotDetected) Ur Propoxyphene Screen (NotDetected) Ur Barbiturates Screen (NotDetected) U Tricyclic Antidepress (NotDetected) Ur Phencyclidine Scrn (NotDetected) Ur Amphetamines Screen (NotDetected) U Methamphetamines Scrn (NotDetected) U Benzodiazepines Scrn (NotDetected) Urine Cocaine Screen (NotDetected) U Marijuana (THC) Screen (NotDetected) Serum Alcohol mg/dL Coronavirus (PCR) (Not Detected) 10/28/19 10/28/19 10/28/19 Range/Units 18:59 21:47 22:30 WBC (3.8-10.6) k/uL RBC (4.30-5.90) m/uL Hgb (13.0-17.5) gm/dL Hct (39.0-53.0) % MCV (80.0-100.0) fL MCH (25.0-35.0) pg MCHC (31.0-37.0) g/dL RDW (11.5-15.5) % Plt Count (150-450) k/uL Neutrophils % % Lymphocytes % % Monocytes % % Eosinophils % % Basophils % % Neutrophils # (1.3-7.7) k/uL Lymphocytes # (1.0-4.8) k/uL Monocytes # (0-1.0) k/uL Eosinophils # (0-0.7) k/uL Basophils # (0-0.2) k/uL Manual Slide Review Hypochromasia Anisocytosis Macrocytosis PT (9.0-12.0) sec INR (<1.2) APTT (22.0-30.0) sec Sodium (137-145) mmol/L Potassium (3.5-5.1) mmol/L Chloride (98-107) mmol/L Carbon Dioxide (22-30) mmol/L Anion Gap mmol/L BUN (9-20) mg/dL Creatinine (0.66-1.25) mg/dL Est GFR (CKD-EPI)AfAm (>60 ml/min/1.73 sqM) Est GFR (CKD-EPI)NonAf (>60 ml/min/1.73 sqM) Glucose (74-99) mg/dL Lactic Ac Sepsis Rflx Y Plasma Lactic Acid Balaji 1.8 (0.7-2.0) mmol/L Calcium (8.4-10.2) mg/dL Magnesium (1.6-2.3) mg/dL Total Bilirubin (0.2-1.3) mg/dL AST (17-59) U/L ALT (4-49) U/L Alkaline Phosphatase (38-126) U/L Ammonia (<30) umol/L Total Protein (6.3-8.2) g/dL Albumin (3.5-5.0) g/dL Lipase (23-300) U/L Urine Color Urine Appearance (Clear) Urine pH (5.0-8.0) Ur Specific [place] (1.001-1.035) Urine Protein (Negative) Urine Glucose (UA) (Negative) Urine Ketones (Negative) Urine Blood (Negative) Urine Nitrite (Negative) Urine Bilirubin (Negative) Urine Urobilinogen (<2.0) mg/dL Ur Leukocyte Esterase (Negative) Urine RBC (0-5) /hpf Urine WBC (0-5) /hpf Calcium Oxalate Crystal (None) /hpf Urine Mucus (None) /hpf Urine Opiates Screen (NotDetected) Ur Oxycodone Screen (NotDetected) Urine Methadone Screen (NotDetected) Ur Propoxyphene Screen (NotDetected) Ur Barbiturates Screen (NotDetected) U Tricyclic Antidepress (NotDetected) Ur Phencyclidine Scrn (NotDetected) Ur Amphetamines Screen (NotDetected) U Methamphetamines Scrn (NotDetected) U Benzodiazepines Scrn (NotDetected) Urine Cocaine Screen (NotDetected) U Marijuana (THC) Screen (NotDetected) Serum Alcohol mg/dL Coronavirus (PCR) Not Detected (Not Detected) 10/30/19 10/30/19 10/30/19 Range/Units 07:47 07:47 09:10 WBC 3.0 L (3.8-10.6) k/uL RBC 3.41 L (4.30-5.90) m/uL Hgb 10.5 L (13.0-17.5) gm/dL Hct 32.4 L (39.0-53.0) % MCV 95.0 (80.0-100.0) fL MCH 30.9 (25.0-35.0) pg MCHC 32.5 (31.0-37.0) g/dL RDW 17.7 H (11.5-15.5) % Plt Count 53 L D (150-450) k/uL Neutrophils % 53 % Lymphocytes % 26 % Monocytes % 13 % Eosinophils % 3 % Basophils % 1 % Neutrophils # 1.6 (1.3-7.7) k/uL Lymphocytes # 0.8 L (1.0-4.8) k/uL Monocytes # 0.4 (0-1.0) k/uL Eosinophils # 0.1 (0-0.7) k/uL Basophils # 0.0 (0-0.2) k/uL Manual Slide Review Performed Hypochromasia Slight Anisocytosis Slight Macrocytosis Slight PT (9.0-12.0) sec INR (<1.2) APTT (22.0-30.0) sec Sodium 137 (137-145) mmol/L Potassium 3.4 L (3.5-5.1) mmol/L Chloride 108 H (98-107) mmol/L Carbon Dioxide 24 (22-30) mmol/L Anion Gap 5 mmol/L BUN 9 (9-20) mg/dL Creatinine 0.44 L (0.66-1.25) mg/dL Est GFR (CKD-EPI)AfAm >90 (>60 ml/min/1.73 sqM) Est GFR (CKD-EPI)NonAf >90 (>60 ml/min/1.73 sqM) Glucose 101 H (74-99) mg/dL Lactic Ac Sepsis Rflx Plasma Lactic Acid Balaji (0.7-2.0) mmol/L Calcium 8.0 L (8.4-10.2) mg/dL Magnesium 1.6 (1.6-2.3) mg/dL Total Bilirubin 2.0 H 1.9 H (0.2-1.3) mg/dL AST 90 H 88 H (17-59) U/L ALT 26 26 (4-49) U/L Alkaline Phosphatase 153 H 132 H (38-126) U/L Ammonia (<30) umol/L Total Protein 6.2 L (6.3-8.2) g/dL Albumin 2.9 L (3.5-5.0) g/dL Lipase (23-300) U/L Urine Color Urine Appearance (Clear) Urine pH (5.0-8.0) Ur Specific [place] (1.001-1.035) Urine Protein (Negative) Urine Glucose (UA) (Negative) Urine Ketones (Negative) Urine Blood (Negative) Urine Nitrite (Negative) Urine Bilirubin (Negative) Urine Urobilinogen (<2.0) mg/dL Ur Leukocyte Esterase (Negative) Urine RBC (0-5) /hpf Urine WBC (0-5) /hpf Calcium Oxalate Crystal (None) /hpf Urine Mucus (None) /hpf Urine Opiates Screen (NotDetected) Ur Oxycodone Screen (NotDetected) Urine Methadone Screen (NotDetected) Ur Propoxyphene Screen (NotDetected) Ur Barbiturates Screen (NotDetected) U Tricyclic Antidepress (NotDetected) Ur Phencyclidine Scrn (NotDetected) Ur Amphetamines Screen (NotDetected) U Methamphetamines Scrn (NotDetected) U Benzodiazepines Scrn (NotDetected) Urine Cocaine Screen (NotDetected) U Marijuana (THC) Screen (NotDetected) Serum Alcohol mg/dL Coronavirus (PCR) (Not Detected) 10/30/19 10/30/19 Range/Units 09:10 09:10 WBC (3.8-10.6) k/uL RBC (4.30-5.90) m/uL Hgb (13.0-17.5) gm/dL Hct (39.0-53.0) % MCV (80.0-100.0) fL MCH (25.0-35.0) pg MCHC (31.0-37.0) g/dL RDW (11.5-15.5) % Plt Count (150-450) k/uL Neutrophils % % Lymphocytes % % Monocytes % % Eosinophils % % Basophils % % Neutrophils # (1.3-7.7) k/uL Lymphocytes # (1.0-4.8) k/uL Monocytes # (0-1.0) k/uL Eosinophils # (0-0.7) k/uL Basophils # (0-0.2) k/uL Manual Slide Review Hypochromasia Anisocytosis Macrocytosis PT 13.3 H (9.0-12.0) sec INR 1.3 H (<1.2) APTT (22.0-30.0) sec Sodium (137-145) mmol/L Potassium (3.5-5.1) mmol/L Chloride (98-107) mmol/L Carbon Dioxide (22-30) mmol/L Anion Gap mmol/L BUN (9-20) mg/dL Creatinine (0.66-1.25) mg/dL Est GFR (CKD-EPI)AfAm (>60 ml/min/1.73 sqM) Est GFR (CKD-EPI)NonAf (>60 ml/min/1.73 sqM) Glucose (74-99) mg/dL Lactic Ac Sepsis Rflx Plasma Lactic Acid Balaji (0.7-2.0) mmol/L Calcium (8.4-10.2) mg/dL Magnesium (1.6-2.3) mg/dL Total Bilirubin (0.2-1.3) mg/dL AST (17-59) U/L ALT (4-49) U/L Alkaline Phosphatase (38-126) U/L Ammonia 112 H (<30) umol/L Total Protein (6.3-8.2) g/dL Albumin (3.5-5.0) g/dL Lipase (23-300) U/L Urine Color Urine Appearance (Clear) Urine pH (5.0-8.0) Ur Specific [place] (1.001-1.035) Urine Protein (Negative) Urine Glucose (UA) (Negative) Urine Ketones (Negative) Urine Blood (Negative) Urine Nitrite (Negative) Urine Bilirubin (Negative) Urine Urobilinogen (<2.0) mg/dL Ur Leukocyte Esterase (Negative) Urine RBC (0-5) /hpf Urine WBC (0-5) /hpf Calcium Oxalate Crystal (None) /hpf Urine Mucus (None) /hpf Urine Opiates Screen (NotDetected) Ur Oxycodone Screen (NotDetected) Urine Methadone Screen (NotDetected) Ur Propoxyphene Screen (NotDetected) Ur Barbiturates Screen (NotDetected) U Tricyclic Antidepress (NotDetected) Ur Phencyclidine Scrn (NotDetected) Ur Amphetamines Screen (NotDetected) U Methamphetamines Scrn (NotDetected) U Benzodiazepines Scrn (NotDetected) Urine Cocaine Screen (NotDetected) U Marijuana (THC) Screen (NotDetected) Serum Alcohol mg/dL Coronavirus (PCR) (Not Detected) Disposition Is patient prescribed a controlled substance at d/c from ED?: No <Kevon Hannah - Last Filed: 10/28/19 21:24> <Digna Arriaza - Last Filed: 11/05/19 23:51> Clinical Impression: Alcohol intoxication Disposition: ADMITTED IP TO THIS [facility] Condition: Stable
[2019-10-28] MEDS ORDERED: LORazepam 2 MG/ML INJ IV PRN ×2 (19:13)
[2019-10-28] MEDS ORDERED: THIAMINE 100 MG/ML 2 ML VIAL IM STA (19:13)
--- NOTE | 2019-10-28 19:16 | XR ---
EXAMINATION TYPE: XR foot complete LT DATE OF EXAM: 10/28/2019 COMPARISON: NONE HISTORY: Foot pain TECHNIQUE: 3 views FINDINGS: Metatarsals appear intact. I see no fracture nor dislocation. There are no erosions. Joint spaces are fairly normal. IMPRESSION: Negative left foot exam. No fracture seen.
--- NOTE | 2019-10-28 19:28 | XR ---
EXAMINATION TYPE: XR KUB DATE OF EXAM: 10/28/2019 COMPARISON: 09/13/2018 HISTORY: Short of breath. Sore throat. TECHNIQUE: 2 views upright FINDINGS: There is increased density over the abdomen consistent with ascites. There clips from buddy cystectomy. Lung bases appear clear of consolidation. There is probably some atelectasis right lung b ase. There is no evidence of free air. IMPRESSION: There is evidence of abdominal ascites increased compared to old exam. No free air.
[2019-10-28] MEDS ORDERED: NICOTINE 14MG/24HR PATCH TRANSDERM STA (19:39)
--- NOTE | 2019-10-28 19:41 | US ---
EXAMINATION TYPE: US renals and bladder DATE OF EXAM: 10/28/2019 COMPARISON: NONE CLINICAL HISTORY: flank pain. Flank pain hematuria. EXAM MEASUREMENTS: Right Kidney: 10.3 x 6.5 x 5.0 cm Left Kidney: 11.4 x 5.9 x 3.9 cm Ascites visualized. Right Kidney: wnl Left Kidney: wnl Bladder: Anechoic Bilateral Jets seen: No IMPRESSION: No evidence of renal mass or obstruction. Urinary bladder appears normal. There is moderate abdominal ascites.
[2019-10-28] MEDS ORDERED: NALOXONE 0.4 MG/ML 1 ML VIAL IV PRN (21:22)
[2019-10-28] MEDS: LORazepam 2 MG/ML INJ IV PRN (21:43)
[2019-10-29] MEDS: LORazepam 2 MG/ML INJ IV PRN ×3 (00:53→23:05)
--- NOTE | 2019-10-29 09:07 | P.HPIM ---
History of Present Illness H&P Date: 10/29/19 Chief Complaint: Detox from alcohol 44-year-old male patient presented emergency room yesterday on 10/28/2019 with chief complaint of alcohol intoxication and requesting help with detox and. He also reported hematemesis at the beginning of kidney stones like when he had a month ago. He has a long-standing history of alcohol abuse including liver cirrhosis, ascites, portal hypertension, pancreatitis, lower GI bleed, esophageal varices with banding. He told the emergency room that he had been consuming approximately a fifth of liquor a day and he wants to quit. His serum alcohol level was 420 is also positive for marijuana, urine cocaine screen positive, urine methamphetamine screen was also positive. Other laboratory the emergency room included CBC with white blood cell count 6.5, hemoglobin 12.0, hematocrit of 36.9, platelet count 136. PT of 12.0, INR 1.2, APTT 27.0. Chemistry resulted in sodium 142, potassium 3.6, chloride 112, MASOUD of 7, creatinine of 0.41, glucose of 119, total bilirubin 1.8, AST 117, ALP 32, alk phos 177 and a lipase of 338. Initial lactic acid was 2.4 and was rechecked approximately 4 hours later and was 1.8. He mentioned in the emergency room that he broke his foot approximately 1 month ago but was unable to elaborate on how and he complains of pain still on that left foot. 10/29/2019 patient lying in bed,easily arousable, alert and oriented 3, following commands. He does have complaints of abdominal pain with some ge neralized achiness. Denies left foot and/or flank pain at this time. He does state the Ativan has helped with shakes although he is mildly tremulous at times. Review of Systems Constitutional: Reports as per HPI Ears, nose, mouth and throat: Reports as per HPI Cardiovascular: Reports as per HPI Respiratory: Reports as per HPI Gastrointestinal: Reports abdominal pain Genitourinary: Reports as per HPI Musculoskeletal: Reports as per HPI Integumentary: Reports as per HPI Neurological: Reports motor disturbance, Reports tremors, Reports weakness Psychiatric: Reports as per HPI Endocrine: Reports as per HPI Hematologic/Lymphatic: Reports as per HPI Allergic/Immunologic: Reports as per HPI Past Medical History Past Medical History: Asthma, GI Bleed, Liver Disease, Pneumonia, Renal Disease, Skin Disorder Additional Past Medical History / Comment(s): Liver cirrhosis, portal HTN, abdominal ascities, pancreatitis, upper and lower GI bleeds, bleeding ulcers, esophageal varicies-banded, thrombocytopemia, chronic anemia, gallstones, nephrolithiasis/hematuria, L inguinal hernia, psoriasis; paracentesis, hernia, left foot injury (2 months ago) History of Any Multi-Drug Resistant Organisms: MRSA Date of last positivie culture/infection: 12/09/13 MDRO Source:: Right first finger Past Surgical History: Appendectomy, Cholecystectomy, Hernia Repair, Orthopedic Surgery Additional Past Surgical History / Comment(s): EGDs/varicies banding/colonoscopy, paracentesis, right hand tendon repair, right knee arthroscopy, cystoscopy for kidney stone removal, right hand ring finger surgery. surgery for umbilical hernia, Past Anesthesia/Blood Transfusion Reactions: Previous Problems w/ Anesthesia, Motion Sickness Additional Past Anesthesia/Blood Transfusion Reaction / Comment(s): Woke up during scope procedure. Past Psychological History: Anxiety, Bipolar, Depression, PTSD Additional Psychological History / Comment(s): Pt resides with Roger (friends). He uses no assistive device. He does not drive, family drives him to [employer]. Smoking Status: Current every day smoker Past Alcohol Use History: Abuse, Daily Additional Past Alcohol Use History / Comment(s): Pt states he started smoking in 1984- states he is back up to a ppd. Pt drinks 1/5 of vodka a day and last drank 10/28/19 Past Drug Use History: Cocaine, Heroin, Marijuana Additional Drug Use History / Comment(s): pt stats he last smoked marijuana on 10/28/19 and last did cocaine on 10/25/19 - Past Family History Mother Family Medical History: No Reported History Additional Family Medical History / Comment(s): Mother has health issues from a MVA-pt did not elaborate. Father Family Medical History: Vascular Disorder Additional Family Medical History / Comment(s): Prostate issues grandpa. Brain aneurysm father. Medications and Allergies Home Medications Medication Instructions Recorded Confirmed Type Thiamine [Vitamin B-1] 100 mg PO DAILY #30 tablet 09/03/17 10/28/19 Rx Multivitamins, Thera [Multivitamin 1 tab PO DAILY 12/14/18 10/28/19 History (formulary)] Magnesium Oxide [Mag-Ox] 400 mg PO DAILY #30 tablet 01/22/19 10/28/19 Rx Potassium Chloride ER [K-Dur 20] 20 meq PO DAILY #10 tab 01/22/19 10/28/19 Rx Furosemide [Lasix] 40 mg PO DAILY 02/03/19 10/28/19 History Spironolactone [Aldactone] 50 mg PO DAILY 07/05/19 10/28/19 History Folic Acid 1 mg PO DAILY 10/28/19 10/28/19 History Allergies Allergy/AdvReac Type Severity Reaction Status Date / Time No Known Allergies Allergy Verified 10/28/19 20:29 Physical Exam Vitals: Vital Signs Temp Pulse Pulse Resp BP BP Pulse Ox 10/29/19 07:15 16 10/29/19 06:56 98.6 F 90 16 100/62 92 L 10/29/19 00:53 104 H 10/29/19 00:36 98.7 F 114 H 16 122/67 92 L 10/28/19 21:56 98.5 F 82 16 138/80 96 10/28/19 21:35 98.1 F 83 16 118/73 97 10/28/19 17:29 97.5 F L 91 18 139/87 99 Intake and Output 10/28/19 10/29/19 10/29/19 22:59 06:59 14:59 Intake Total 20 120 Output Total 600 Balance 20 -480 Intake: Intake, IV Titration 120 Amount Sodium Chloride 0.9% 500 120 ml 500 ml @ 999 mls/hr IV .Q31M STA Rx#:[id number] Oral 20 Output: Urine 600 Other: Voiding Method Toilet Urinal Urinal # Voids 1 Weight 84.822 kg GENERAL: Ill-appearing, well-nourished and in no acute distress. HEAD: Atraumatic, normocephalic. EYES: Pupils equal round and reactive to light, extraocular movements intact, sclera icterus, conjunctiva are normal. ENT:nares patent, oropharynx clear without exudates. Moist mucous membranes. NECK: Normal range of motion, supple without lymphadenopathy or JVD, no thyromegaly LUNGS: Breath sounds with bilateral lateral scattered rhonchi that clears with cough. HEART: Regular rate and rhythm without murmurs, rubs or gallops.S1S2 Normal ABDOMEN: Abdomen moderately distended, hypoactive bowel sounds, no ecchymosis, mildly tender flanks. EXTREMITIES: Normal range of motion, no pitting or edema. No clubbing or cyanosis. Negative Homans sign, muscle strength +4 out of 5 bilaterally Radial and DP pulses +2 over 4 equal bilaterally. Sensation intact in upper and lower extremities. NEUROLOGICAL: Cranial nerves II through XII grossly intact. Normal speech. PSYCH: Normal mood, normal affect. SKIN: Warm, Dry, normal turgor, no rashes or lesions noted. Results CBC & Chem 7: 10/28/19 18:16 10/28/19 18:16 Labs: Abnormal Lab Results - Last 24 Hours (Table) 10/28/19 10/28/19 10/28/19 Range/Units 18:16 18:16 18:16 RBC (4.30-5.90) m/uL Hgb (13.0-17.5) gm/dL Hct (39.0-53.0) % RDW (11.5-15.5) % Plt Count (150-450) k/uL INR 1.2 H (<1.2) Chloride 112 H (98-107) mmol/L Carbon Dioxide 19 L (22-30) mmol/L BUN 7 L (9-20) mg/dL Creatinine 0.41 L (0.66-1.25) mg/dL Glucose 119 H (74-99) mg/dL Plasma Lactic Acid Balaji (0.7-2.0) mmol/L Total Bilirubin 1.8 H (0.2-1.3) mg/dL AST 117 H (17-59) U/L Alkaline Phosphatase 177 H (38-126) U/L Lipase 338 H (23-300) U/L Urine Protein (Negative) Urine Blood (Negative) Urine RBC (0-5) /hpf Calcium Oxalate Crystal (None) /hpf Urine Mucus (None) /hpf U Methamphetamines Scrn Detected H (NotDetected) Urine Cocaine Screen Detected H (NotDetected) U Marijuana (THC) Screen Detected H (NotDetected) Serum Alcohol 420 H* mg/dL 10/28/19 10/28/19 10/28/19 Range/Units 18:16 18:16 18:16 RBC 3.96 L (4.30-5.90) m/uL Hgb 12.0 L (13.0-17.5) gm/dL Hct 36.9 L (39.0-53.0) % RDW 18.4 H (11.5-15.5) % Plt Count 136 L (150-450) k/uL INR (<1.2) Chloride (98-107) mmol/L Carbon Dioxide (22-30) mmol/L BUN (9-20) mg/dL Creatinine (0.66-1.25) mg/dL Glucose (74-99) mg/dL Plasma Lactic Acid Balaji 2.4 H* (0.7-2.0) mmol/L Total Bilirubin (0.2-1.3) mg/dL AST (17-59) U/L Alkaline Phosphatase (38-126) U/L Lipase (23-300) U/L Urine Protein 1+ H (Negative) Urine Blood Moderate H (Negative) Urine RBC 82 H (0-5) /hpf Calcium Oxalate Crystal Few H (None) /hpf Urine Mucus Many H (None) /hpf U Methamphetamines Scrn (NotDetected) Urine Cocaine Screen (NotDetected) U Marijuana (THC) Screen (NotDetected) Serum Alcohol mg/dL Thrombosis Risk Factor Assmnt - DVT/VTE Prophylaxis DVT/VTE Prophylaxis: Mechanical Prophylaxis ordered - Choose All That Apply Each Factor Represents 1 point: Age 41-60 years, Obesity (BMI >25) Thrombosis Risk Factor Assessment Total Risk Factor Score: 2 Thrombosis Risk Factor Assessment Level: Low Risk Assessment and Plan (1) Methamphetamine abuse Current Visit: Yes Status: Acute Code(s): F15.10 - OTHER STIMULANT ABUSE, UNCOMPLICATED SNOMED Code(s): 331721161 (2) Scleral icterus Current Visit: Yes Status: Acute Code(s): R17 - UNSPECIFIED JAUNDICE SNOMED Code(s): 557178353 (3) Alcohol intoxication Current Visit: Yes Status: Acute Code(s): F10.929 - ALCOHOL USE, UNSPECIFIED WITH INTOXICATION, UNSPECIFIED SNOMED Code(s): 16954304 (4) Abdominal pain Current Visit: No Status: Acute Code(s): R10.9 - UNSPECIFIED ABDOMINAL PAIN SNOMED Code(s): 64080624 (5) Acute alcoholic pancreatitis Current Visit: No Status: Acute Code(s): K85.20 - ALCOHOL INDUCED ACUTE PANCREATITIS WITHOUT NECROSIS OR INFCT SNOMED Code(s): 476870188 (6) Acute on chronic pancreatitis Current Visit: No Status: Acute Code(s): K85.90 - ACUTE PANCREATITIS WITHOUT NECROSIS OR INFECTION, UNSP; K86.1 - OTHER CHRONIC PANCREATITIS SNOMED Code(s): 881326347 (7) Alcohol abuse Current Visit: No Status: Acute Code(s): F10.10 - ALCOHOL ABUSE, UNCOMPLICATED SNOMED Code(s): 97993200 (8) Alcohol intoxication in active alcoholic Current Visit: No Status: Acute Code(s): F10.129 - ALCOHOL ABUSE WITH INTOXICATION, UNSPECIFIED SNOMED Code(s): 470501655 (9) Alcoholic cirrhosis of liver with ascites Current Visit: No Status: Acute Code(s): K70.31 - ALCOHOLIC CIRRHOSIS OF LIVER WITH ASCITES SNOMED Code(s): 752748250 (10) Alcoholic liver disease Current Visit: No Status: Acute Code(s): K70.9 - ALCOHOLIC LIVER DISEASE, UNSPECIFIED SNOMED Code(s): 72778577 (11) Chronic alcoholic liver disease Current Visit: No Status: Acute Code(s): K70.9 - ALCOHOLIC LIVER DISEASE, UNSPECIFIED SNOMED Code(s): 349511795 (12) Cirrhosis of liver with ascites Current Visit: No Status: Acute Code(s): K74.60 - UNSPECIFIED CIRRHOSIS OF LIVER; R18.8 - OTHER ASCITES SNOMED Code(s): 21797766 (13) Cocaine abuse Current Visit: No Status: Acute Code(s): F14.10 - COCAINE ABUSE, UNCOMPLICATED SNOMED Code(s): 51263230 (14) ETOH abuse Current Visit: No Status: Acute Code(s): F10.10 - ALCOHOL ABUSE, UNCOMPLICATED SNOMED Code(s): 56703864 (15) Intractable abdominal pain Current Visit: No Status: Acute Code(s): R10.9 - UNSPECIFIED ABDOMINAL PAIN SNOMED Code(s): 52346073 (16) Lactic acidosis Current Visit: No Status: Acute Code(s): E87.2 - ACIDOSIS SNOMED Code(s): 71569111 (17) Polysubstance abuse Current Visit: No Status: Acute Code(s): F19.10 - OTHER PSYCHOACTIVE SUBSTANCE ABUSE, UNCOMPLICATED SNOMED Code(s): 976699526 Plan: 1. Benzodiazepine for alcohol withdrawal symptoms. 2. Consult social work to facilitate transfer to [facility] for inpatient rehab for polysubstance abuse. 3. Utilize tramadol for pain management. 4. Given patient for smoking cessation. 5. Continue to monitor labs and vital signs. 6. We'll continue with home medications. 7. We'll continue to watch closely and reassess again tomorrow. Time with Patient: Greater than 30
[2019-10-29] MEDS ORDERED: SPIRONOLACTONE 50 MG PO SCH (09:30)
[2019-10-29] MEDS: POTASSIUM CHLORIDE ER 20 MEQ TAB.ER PO SCH (09:36)
[2019-10-29] MEDS: SPIRONOLACTONE 25 MG TAB PO SCH (09:36)
[2019-10-29] MEDS: MAGNESIUM OXIDE 400 MG TAB PO SCH ×2 (09:36→21:29)
[2019-10-29] MEDS: THIAMINE 100 MG TAB PO SCH ×2 (09:36→16:49)
[2019-10-29] MEDS: FUROSEMIDE 40 MG TAB PO SCH (09:36)
[2019-10-29] MEDS: MULTIVITAMINS, THERA 1 EACH TAB PO SCH (09:36)
[2019-10-29] MEDS: traMADol 50 MG TAB PO PRN ×2 (09:37→21:29)
[2019-10-30] MEDS ORDERED: ALBUTEROL NEBULIZED 2.5 MG/3 ML INHALATION PRN (01:39)
[2019-10-30] MEDS: LORazepam 2 MG/ML INJ IV PRN (07:09)
[2019-10-30] MEDS: MAGNESIUM OXIDE 400 MG TAB PO SCH ×2 (08:21→20:34)
[2019-10-30] MEDS: POTASSIUM CHLORIDE ER 20 MEQ TAB.ER PO SCH (08:21)
[2019-10-30] MEDS: SPIRONOLACTONE 25 MG TAB PO SCH (08:21)
[2019-10-30] MEDS: FUROSEMIDE 40 MG TAB PO SCH (08:21)
[2019-10-30] MEDS: MULTIVITAMINS, THERA 1 EACH TAB PO SCH (08:22)
[2019-10-30] MEDS: traMADol 50 MG TAB PO PRN ×2 (08:22→15:42)
[2019-10-30] MEDS: FOLIC ACID 1 MG TAB PO SCH (08:22)
[2019-10-30 08:24] LABS: ALT 26 U/L (4-49); AST 90 U/L (17-59); African American GFR (CKD) >90 (>60 ml/min/1.73 sqM); Albumin 2.9 g/dL (3.5-5.0); Alkaline Phosphatase 153 U/L (38-126); Anion Gap 5 mmol/L; Blood Urea Nitrogen 9 mg/dL (9-20); Carbon Dioxide 24 mmol/L (22-30); Chloride 108 mmol/L (98-107); Glucose 101 mg/dL (74-99); Magnesium 1.6 mg/dL (1.6-2.3); Non-African American GFR(CKD) >90 (>60 ml/min/1.73 sqM); Potassium 3.4 mmol/L (3.5-5.1); Sodium 137 mmol/L (137-145); Total Protein 6.2 g/dL (6.3-8.2)
[2019-10-30 08:28] LABS: Anisocytosis Slight; Basophils % (A) 1 %; Eosinophils # (A) 0.1 k/uL (0-0.7); Eosinophils % (A) 3 %; HCT 32.4 % (39.0-53.0); HGB 10.5 gm/dL (13.0-17.5); Hypochromasia Slight; Lymphocytes # (A) 0.8 k/uL (1.0-4.8); Lymphocytes % (A) 26 %; MCH 30.9 pg (25.0-35.0); MCHC 32.5 g/dL (31.0-37.0); Macrocytosis Slight; Mean Platelet Volume 8.7; Monocytes # (A) 0.4 k/uL (0-1.0); Monocytes % (A) 13 %; Neutrophils # (A) 1.6 k/uL (1.3-7.7); Neutrophils % (A) 53 %; RBC 3.41 m/uL (4.30-5.90); RDW 17.7 % (11.5-15.5)
[2019-10-30] MEDS ORDERED: Magnesium Replacement Protocol 1 EACH MISC MISCELLANE PRN (08:38)
[2019-10-30] MEDS ORDERED: Potassium Replacement Protocol 1 EACH MISC MISCELLANE PRN (08:39)
[2019-10-30 09:22] LABS: Platelet Count 53 k/uL (150-450)
[2019-10-30 10:03] LABS: Total Bilirubin 1.9 mg/dL (0.2-1.3)
[2019-10-30] MEDS ORDERED: POTASSIUM CHLORIDE ER 20 MEQ TAB.ER PO STA (10:06)
[2019-10-30] MEDS: THIAMINE 100 MG TAB PO SCH ×2 (10:22→17:26)
[2019-10-30] MEDS: LACTULOSE 20 GM/30 ML CUP PO SCH ×3 (10:27→20:34)
[2019-10-30 10:57] LABS: INR 1.3 (<1.2); Prothrombin Time 13.3 sec (9.0-12.0)
--- NOTE | 2019-10-30 14:38 | US ---
EXAMINATION TYPE: US paracentesis abd w/image DATE OF EXAM: 10/30/2019 COMPARISON: NONE HISTORY: Ascites. PROCEDURE: Maximal barrier technique was utilized. The skin overlying a suitable pocket of fluid was localized with ultrasound and the overlying skin was prepped and draped. Ultrasound was utilized with sterile technique. Lidocaine was used for local anesthesia and a skin henry made with a scalpel. Catheter was advanced under direct ultrasound guidance into a suitable pocket of fluid and approximately 9.5 liter s of serous fluid were removed. Catheter was withdrawn and hemostasis achieved. There is no immedia te complication; the patient is discharged in stable condition. IMPRESSION: STATUS POST ULTRASOUND GUIDED PARACENTESIS FOR PALLIATION OF ASCITES. THIS PROCEDURE WA S PERFORMED BY THE UNDERSIGNED.
--- NOTE | 2019-10-30 14:41 | P.PN ---
Subjective Progress Note Date: 10/30/19 44-year-old male patient presented emergency room yesterday on 10/28/2019 with chief complaint of alcohol intoxication and requesting help with detox and. He also reported hematemesis at the beginning of kidney stones like when he had a month ago. He has a long-standing history of alcohol abuse including liver cirrhosis, ascites, portal hypertension, pancreatitis, lower GI bleed, esophageal varices with banding. He told the emergency room that he had been consuming approximately a fifth of liquor a day and he wants to quit. His serum alcohol level was 420 is also positive for marijuana, urine cocaine screen positive, urine methamphetamine screen was also positive. Other laboratory the emergency room included CBC with white blood cell count 6.5, hemoglobin 12.0, hematocrit of 36.9, platelet count 136. PT of 12.0, INR 1.2, APTT 27.0. Chemistry resulted in sodium 142, potassium 3.6, chloride 112, MASOUD of 7, creatinine of 0.41, glucose of 119, total bilirubin 1.8, AST 117, ALP 32, alk phos 177 and a lipase of 338. Initial lactic acid was 2.4 and was rechecked approximately 4 hours later and was 1.8. He mentioned in the emergency room that he broke his foot approximately 1 month ago but was unable to elaborate on how and he complains of pain still on that left foot. 10/29/2019 patient lying in bed,easily arousable, alert and oriented 3, following commands. He does have complaints of abdominal pain with some generalized achiness. Denies left foot and/or flank pain at this time. He does state the Ativan has helped with shakes although he is mildly tremulous at times. 10/30/2019 maintained on CIWA protocol, current CIWA score 9. Active DTs. Confused with diffuse shakiness, itchy, jittery. Potassium 3.4 and magnesium 1.6. T-max 100.1. Hemoglobin decreased to 10.5, platelets down to 53, Objective - Vital Signs Vital signs: Vital Signs Temp 98.6 F 10/30/19 06:58 Pulse 98 10/30/19 06:58 Resp 16 10/30/19 06:58 BP 129/77 10/30/19 06:58 Pulse Ox 96 10/30/19 06:58 Intake & Output 10/29/19 10/30/19 10/30/19 18:59 06:59 18:59 Output Total 1550 100 Balance -1550 -100 Output: Urine 1550 100 Other: Voiding Method Urinal Urinal # Voids 1 1 - Exam GENERAL: Sitting up in bed, confused, active DTs, jittery, shaky HEAD: Atraumatic, normocephalic. EYES: Pupils equal round and reactive to light, extraocular movements intact, sclera icterus, conjunctiva are normal. ENT:nares patent, oropharynx clear without exudates. Moist mucous membranes. NECK: Normal range of motion, supple without lymphadenopathy or JVD, no thyromegaly LUNGS: Breath sounds with bilateral lateral scattered rhonchi that clears with cough. HEART: Regular rate and rhythm without murmurs, rubs or gallops.S1S2 Normal ABDOMEN: Abdomen distended, positive ascites hypoactive bowel sounds, no ecchymosis, mildly tender flanks. EXTREMITIES: Normal range of motion, no pitting or edema. No clubbing or cyanosis. Radial and DP pulses +2 over 4 equal bilaterally. Sensation intact in upper and lower extremities. NEUROLOGICAL: Cranial nerves II through XII grossly intact. Normal speech. SKIN: Warm, Dry, normal turgor, no rashes noted. - Labs CBC & Chem 7: 10/30/19 07:47 10/30/19 07:47 Labs: Abnormal Lab Results - Last 24 Hours (Table) 10/30/19 10/30/19 10/30/19 Range/Units 07:47 07:47 09:10 WBC 3.0 L (3.8-10.6) k/uL RBC 3.41 L (4.30-5.90) m/uL Hgb 10.5 L (13.0-17.5) gm/dL Hct 32.4 L (39.0-53.0) % RDW 17.7 H (11.5-15.5) % Plt Count 53 L D (150-450) k/uL Lymphocytes # 0.8 L (1.0-4.8) k/uL Potassium 3.4 L (3.5-5.1) mmol/L Chloride 108 H (98-107) mmol/L Creatinine 0.44 L (0.66-1.25) mg/dL Glucose 101 H (74-99) mg/dL Calcium 8.0 L (8.4-10.2) mg/dL Total Bilirubin 2.0 H 1.9 H (0.2-1.3) mg/dL AST 90 H 88 H (17-59) U/L Alkaline Phosphatase 153 H 132 H (38-126) U/L Ammonia (<30) umol/L Total Protein 6.2 L (6.3-8.2) g/dL Albumin 2.9 L (3.5-5.0) g/dL 10/30/19 Range/Units 09:10 WBC (3.8-10.6) k/uL RBC (4.30-5.90) m/uL Hgb (13.0-17.5) gm/dL Hct (39.0-53.0) % RDW (11.5-15.5) % Plt Count (150-450) k/uL Lymphocytes # (1.0-4.8) k/uL Potassium (3.5-5.1) mmol/L Chloride (98-107) mmol/L Creatinine (0.66-1.25) mg/dL Glucose (74-99) mg/dL Calcium (8.4-10.2) mg/dL Total Bilirubin (0.2-1.3) mg/dL AST (17-59) U/L Alkaline Phosphatase (38-126) U/L Ammonia 112 H (<30) umol/L Total Protein (6.3-8.2) g/dL Albumin (3.5-5.0) g/dL Assessment and Plan Assessment: (1) acute alcohol intoxication with DTs in a patient with history of alcohol dependence Current Visit: Yes Status: Acute Code(s): F10.929 - ALCOHOL USE, UNSPECIFIED WITH INTOXICATION, UNSPECIFIED SNOMED Code(s): 84247603 Current Visit: Yes Status: Acute Code(s): F10.10 - ALCOHOL ABUSE, UNCOMPLICATED SNOMED Code(s): 44591169 Current Visit: No Status: Acute Code(s): F10.129 - ALCOHOL ABUSE WITH INTOXICATION, UNSPECIFIED SNOMED Code(s): 882016724 (2) Methamphetamine abuse Current Visit: Yes Status: Acute Code(s): F15.10 - OTHER STIMULANT ABUSE, UNCOMPLICATED SNOMED Code(s): 669319784 (3) Alcoholic cirrhosis of liver with ascites Current Visit: No Status: Acute Code(s): K70.31 - ALCOHOLIC CIRRHOSIS OF LIVER WITH ASCITES SNOMED Code(s): 784400991 (4) Abdominal pain in patient with history of esophageal varices, multiple natasha iceal bandings Current Visit: No Status: Acute Code(s): R10.9 - UNSPECIFIED ABDOMINAL PAIN SNOMED Code(s): 15365635 (5) acute on chronic blood loss anemia secondary to all the above. (6) chronic pancreatitis (7) Cocaine abuse Current Visit: No Status: Acute Code(s): F14.10 - COCAINE ABUSE, UNCOMPLICATED SNOMED Code(s): 52515504 (8) Lactic acidosis Current Visit: No Status: Acute Code(s): E87.2 - ACIDOSIS SNOMED Code(s): 40360977 (9) Polysubstance abuse Current Visit: No Status: Acute Code(s): F19.10 - OTHER PSYCHOACTIVE SUBSTANCE ABUSE, UNCOMPLICATED SNOMED Code(s): 884114138 (10) Tobacco abuse Current Visit: Yes Status: Acute Code(s): Z72.0 - TOBACCO USE SNOMED Code(s): 220590063 (11)Coagulopathy Current Visit: No Status: Acute Code(s): D68.9 - COAGULATION DEFECT, UNSPECIFIED SNOMED Code(s): 68263829 (12) Portal hypertension, mild to moderate Current Visit: No Status: Acute Code(s): K76.6 - PORTAL HYPERTENSION SNOMED Code(s): 14573426 Plan: Continue on current medication regime ,monitoring and symptomatic treatment. Potassium and magnesium replacement supplementation ordered. Ammonia level ordered, and will begin lactulose accordingly. Needs paracentesis, GI consulted, hemoglobin down 1.5 g, significant drop in platelets plts. Alcohol, smoking cessation reinforced. Social work to assist with rehab options. Prognosis guarded given multiple complex medical issues. The impression and plan of care has been dictated as directed. : I performed a history and examination of this patient, discussed the same with the dictator. I agree with the dictator's note ,documented as a scribe. Any additional findings or plans will be noted. The impression and plan of care has been dictated as directed. .: I performed a history and examination of this patient, discussed the same with the dictator. I agree with the dictator's note ,documented as a scribe. Any additional findings or plans will be noted.
[2019-10-30] MEDS: ALBUMIN HUMAN 25% 50 ML in EMPTY BAG 1 BAG IVPB SCH ×4 (14:49→16:14)
[2019-10-30] MEDS: NICOTINE 21MG/24HR PATCH TRANSDERM SCH (15:00)
[2019-10-31] MEDS: traMADol 50 MG TAB PO PRN ×3 (01:27→21:39)
--- NOTE | 2019-10-31 07:03 | P.CONS ---
History of Present Illness - Reason for Consult Consult date: 10/30/19 Decompensated cirrhosis Requesting physician: Aristeo Fox - Chief Complaint Alcohol intoxication - History of Present Illness 44-year-old male with multiple medical morbidities including polysubstance abuse, decompensated alcoholic cirrhosis, history of esophageal varices and portal hypertensive gastropathy, ascites, and pancreatitis who presented to the hospital due to complaints of alcohol intoxication. Patient was found to have a serum alcohol level of 428 with positive testing for marijuana, urine cocaine screen positive, urine methamphetamine screen positive. The patient had previously been doing well at the end of 2018 as he was able to remain abstinent from alcohol for an extended period but on current presentation reports significant alcohol use with consumption of daily liquor. The patient has been treated with paracentesis in the past and has been on diuretic therapy for management of ascites. He has had multiple endoscopic evaluations for signs and symptoms of GI bleeding with the last performed in 06/2019 with findings of an esophageal ulcer at the site of previous esophageal banding and portal hypertensive gastropathy. Patient reports that he has been noncompliant with his home medications for treatment of encephalopathy and ascites as he has not been taking his lactulose, Aldactone and Lasix consistently. He also reported abdominal distention on presentation was found to have significant ascites with paracentesis performed and 9 L removed. Currently he is denying any signs or symptoms of GI bleeding. Other laboratory evaluation significant for an INR 1.3, total bilirubin 2, alkaline phosphatase 153, AST 90, ALT 26, WBC 3, hemoglobin 10.2 and platelet count of 53,000. Review of Systems REVIEW OF SYSTEMS: CONSTITUTIONAL: Denies any fevers, chills, weight change or fatigue. CARDIOVASCULAR: Denies any chest pain, palpitations high or low blood pressures RESPIRATORY: Denies any shortness of breath, hemoptysis or cough. GENITOURINARY: No dysuria or hematuria. MUSCULOSKELETAL: No weakness reported. SKIN: Denies any new rashes or lesions, jaundice or pallor. PSYCHIATRIC: Denies any depression or anxiety, significant for polysubstance abuse. NEUROLOGY: Denies headache, denies any new focal deficits. EARS/NOSE/THROAT: No recent hearing change, congestion, nasal discharge or sore throat. EYES: No pain in eyes, discharge or change in vision. GASTROINTESTINAL: As per HPI. Past Medical History Past Medical History: Asthma, GI Bleed, Liver Disease, Pneumonia, Renal Disease, Skin Disorder Additional Past Medical History / Comment(s): Liver cirrhosis, portal HTN, abdominal ascities, pancreatitis, upper and lower GI bleeds, bleeding ulcers, esophageal varicies-banded, thrombocytopemia, chronic anemia, gallstones, nephrolithiasis/hematuria, L inguinal hernia, psoriasis; paracentesis, hernia, left foot injury (2 months ago) History of Any Multi-Drug Resistant Organisms: MRSA Year Discovered:: 12/09/13 MDRO Source:: Right first finger Past Surgical History: Appendectomy, Cholecystectomy, Hernia Repair, Orthopedic Surgery Additional Past Surgical History / Comment(s): EGDs/varicies banding/colonoscopy, paracentesis, right hand tendon repair, right knee arthroscopy, cystoscopy for kidney stone removal, right hand ring finger surgery. surgery for umbilical hernia, Past Anesthesia/Blood Transfusion Reactions: Previous Problems w/ Anesthesia, Motion Sickness Additional Past Anesthesia/Blood Transfusion Reaction / Comm: Woke up during scope procedure. Past Psychological History: Anxiety, Bipolar, Depression, PTSD Additional Psychological History / Comment(s): Pt resides with Roger (friends). He uses no assistive device. He does not drive, family drives him to [employer]. Smoking Status: Current every day smoker Past Alcohol Use History: Abuse, Daily Additional Past Alcohol Use History / Comment(s): Pt states he started smoking in 1984- states he is back up to a ppd. Pt drinks 1/5 of vodka a day and last drank 10/28/19 Past Drug Use History: Cocaine, Heroin, Marijuana Additional Drug Use History / Comment(s): pt stats he last smoked marijuana on 10/28/19 and last did cocaine on 10/25/19 - Past Family History Mother Family Medical History: No Reported History Additional Family Medical History / Comment(s): Mother has health issues from a MVA-pt did not elaborate. Father Family Medical History: Vascular Disorder Additional Family Medical History / Comment(s): Prostate issues grandpa. Brain aneurysm father. Medications and Allergies Home Medications Medication Instructions Recorded Confirmed Type Thiamine [Vitamin B-1] 100 mg PO DAILY #30 tablet 09/03/17 10/28/19 Rx Multivitamins, Thera [Multivitamin 1 tab PO DAILY 12/14/18 10/28/19 History (formulary)] Magnesium Oxide [Mag-Ox] 400 mg PO DAILY #30 tablet 01/22/19 10/28/19 Rx Potassium Chloride ER [K-Dur 20] 20 meq PO DAILY #10 tab 01/22/19 10/28/19 Rx Furosemide [Lasix] 40 mg PO DAILY 02/03/19 10/28/19 History Spironolactone [Aldactone] 50 mg PO DAILY 07/05/19 10/28/19 History Folic Acid 1 mg PO DAILY 10/28/19 10/28/19 History Allergies Allergy/AdvReac Type Severity Reaction Status Date / Time No Known Allergies Allergy Verified 10/28/19 20:29 Physical Exam Vitals: Vital Signs Temp Pulse Pulse Resp BP BP Pulse Ox 10/30/19 15:45 97.5 F L 84 16 135/74 10/30/19 14:55 97 F L 134/67 10/30/19 14:01 135/67 10/30/19 13:30 82 18 128/79 95 10/30/19 13:17 86 16 130/79 96 10/30/19 13:02 80 16 132/74 96 10/30/19 12:35 82 18 128/79 96 10/30/19 12:15 81 18 126/78 96 10/30/19 11:57 86 18 138/83 94 L 10/30/19 11:34 91 16 143/83 95 10/30/19 06:58 98.6 F 98 16 129/77 96 10/30/19 03:56 99.1 F 10/30/19 02:02 88 10/30/19 01:52 96 10/30/19 01:00 100 F H 101 H 20 136/81 94 L 10/29/19 19:36 98.9 F 103 H 16 123/72 93 L Intake and Output 10/30/19 10/30/19 10/30/19 06:59 14:59 22:59 Output Total 100 200 Balance -100 -200 Output: Urine 100 200 Other: # Voids 1 On physical examination, patient appears comfortable in no apparent distress. HEAD: Normocephalic, atraumatic. EYES: No scleral icterus. No conjunctival injection. MOUTH: No lesions, tongue midline. NECK: Trachea midline, no gross abnormalities. CHEST: Clear to auscultation with no wheezing or rhonchi appreciated. HEART: Regular rate and rhythm. ABDOMEN: Soft, obese and only minimally distended after paracentesis. Bowel sounds are positive. No organomegaly. No guarding or rigidity. EXTREMITIES: No pedal edema. SKIN: No rashes, no jaundice. NEUROLOGIC: Alert and oriented to person and place with no asterixis noted. No focal deficits. Results CBC & Chem 7: 10/30/19 07:47 10/30/19 07:47 Labs: Abnormal Lab Results - Last 24 Hours (Table) 10/30/19 10/30/19 10/30/19 Range/Units 07:47 07:47 09:10 WBC 3.0 L (3.8-10.6) k/uL RBC 3.41 L (4.30-5.90) m/uL Hgb 10.5 L (13.0-17.5) gm/dL Hct 32.4 L (39.0-53.0) % RDW 17.7 H (11.5-15.5) % Plt Count 53 L D (150-450) k/uL Lymphocytes # 0.8 L (1.0-4.8) k/uL PT (9.0-12.0) sec INR (<1.2) Potassium 3.4 L (3.5-5.1) mmol/L Chloride 108 H (98-107) mmol/L Creatinine 0.44 L (0.66-1.25) mg/dL Glucose 101 H (74-99) mg/dL Calcium 8.0 L (8.4-10.2) mg/dL Total Bilirubin 2.0 H 1.9 H (0.2-1.3) mg/dL AST 90 H 88 H (17-59) U/L Alkaline Phosphatase 153 H 132 H (38-126) U/L Ammonia (<30) umol/L Total Protein 6.2 L (6.3-8.2) g/dL Albumin 2.9 L (3.5-5.0) g/dL 10/30/19 10/30/19 Range/Units 09:10 09:10 WBC (3.8-10.6) k/uL RBC (4.30-5.90) m/uL Hgb (13.0-17.5) gm/dL Hct (39.0-53.0) % RDW (11.5-15.5) % Plt Count (150-450) k/uL Lymphocytes # (1.0-4.8) k/uL PT 13.3 H (9.0-12.0) sec INR 1.3 H (<1.2) Potassium (3.5-5.1) mmol/L Chloride (98-107) mmol/L Creatinine (0.66-1.25) mg/dL Glucose (74-99) mg/dL Calcium (8.4-10.2) mg/dL Total Bilirubin (0.2-1.3) mg/dL AST (17-59) U/L Alkaline Phosphatase (38-126) U/L Ammonia 112 H (<30) umol/L Total Protein (6.3-8.2) g/dL Albumin (3.5-5.0) g/dL Abdominal x-ray: report reviewed (KUB x-ray with significant ascites noted.) Assessment and Plan (1) Alcoholic cirrhosis of liver with ascites Narrative/Plan: 44-year-old male with a known history of decompensated alcoholic cirrhosis with history of ascites, esophageal varices with previous banding and encephalopathy who presented due to active alcohol use and intoxication. Patient is status post paracentesis with over 9 L removed. He had been noncompliant with lactulose therapy as well as Lasix and Aldactone in the outpatient setting. Currently no signs or symptoms of GI bleeding. Current Visit: No Status: Acute Code(s): K70.31 - ALCOHOLIC CIRRHOSIS OF LIVER WITH ASCITES SNOMED Code(s): 007825040 (2) Alcohol intoxication Current Visit: Yes Status: Acute Code(s): F10.929 - ALCOHOL USE, UNSPECIFIED WITH INTOXICATION, UNSPECIFIED SNOMED Code(s): 40353140 (3) Coagulopathy Current Visit: No Status: Acute Code(s): D68.9 - COAGULATION DEFECT, UNSPECIFIED SNOMED Code(s): 41342137 (4) Esophageal varices Current Visit: No Status: Acute Code(s): I85.00 - ESOPHAGEAL VARICES WITHOUT BLEEDING SNOMED Code(s): 64080124 (5) Portal hypertension Current Visit: No Status: Acute Code(s): K76.6 - PORTAL HYPERTENSION SNOMED Code(s): 32866036 Plan: Supportive care Okay for liquid diet, advance to low sodium diet as tolerated Continue Lasix and Aldactone Lactulose 3 times a day initiated Protonix twice daily Alcohol abstinence Monitor for signs or symptoms of GI bleeding Monitor for alcohol withdrawal No plans for endoscopic evaluation at this time Thank you for allowing us to participate in the care of the patient
[2019-10-31] MEDS: LORazepam 2 MG/ML INJ IV PRN ×4 (07:08→23:27)
[2019-10-31] MEDS: MAGNESIUM OXIDE 400 MG TAB PO SCH ×2 (07:11→19:22)
[2019-10-31] MEDS: NICOTINE 21MG/24HR PATCH TRANSDERM SCH (07:11)
[2019-10-31] MEDS: FOLIC ACID 1 MG TAB PO SCH (07:11)
[2019-10-31] MEDS: LACTULOSE 20 GM/30 ML CUP PO SCH ×3 (07:11→21:38)
[2019-10-31] MEDS: THIAMINE 100 MG TAB PO SCH ×2 (07:12→16:57)
[2019-10-31] MEDS: POTASSIUM CHLORIDE ER 20 MEQ TAB.ER PO SCH (07:12)
[2019-10-31] MEDS: MULTIVITAMINS, THERA 1 EACH TAB PO SCH (07:12)
[2019-10-31] MEDS: FUROSEMIDE 40 MG TAB PO SCH (07:12)
[2019-10-31] MEDS: SPIRONOLACTONE 25 MG TAB PO SCH (07:14)
[2019-10-31 07:15] LABS: ALT 23 U/L (4-49); AST 73 U/L (17-59); African American GFR (CKD) >90 (>60 ml/min/1.73 sqM); Albumin 3.2 g/dL (3.5-5.0); Alkaline Phosphatase 128 U/L (38-126); Anion Gap 7 mmol/L; Blood Urea Nitrogen 4 mg/dL (9-20); Calcium 7.8 mg/dL (8.4-10.2); Carbon Dioxide 19 mmol/L (22-30); Chloride 111 mmol/L (98-107); Glucose 94 mg/dL (74-99); Magnesium 1.6 mg/dL (1.6-2.3); Non-African American GFR(CKD) >90 (>60 ml/min/1.73 sqM); Potassium 3.4 mmol/L (3.5-5.1); Sodium 137 mmol/L (137-145); Total Bilirubin 2.2 mg/dL (0.2-1.3); Total Protein 6.3 g/dL (6.3-8.2)
[2019-10-31] MEDS ORDERED: POTASSIUM CHLORIDE ER 20 MEQ TAB.ER PO STA (07:28)
[2019-10-31 07:57] LABS: Anisocytosis Slight; Basophils % (A) 1 %; Eosinophils # (A) 0.2 k/uL (0-0.7); Eosinophils % (A) 5 %; HCT 33.4 % (39.0-53.0); HGB 10.8 gm/dL (13.0-17.5); Hypochromasia Moderate; Lymphocytes # (A) 0.6 k/uL (1.0-4.8); Lymphocytes % (A) 19 %; MCH 30.7 pg (25.0-35.0); MCHC 32.4 g/dL (31.0-37.0); MCV 94.8 fL (80.0-100.0); Mean Platelet Volume 9.1; Monocytes # (A) 0.4 k/uL (0-1.0); Monocytes % (A) 14 %; Neutrophils # (A) 1.7 k/uL (1.3-7.7); Neutrophils % (A) 59 %; RBC 3.52 m/uL (4.30-5.90); RDW 17.2 % (11.5-15.5); WBC 2.9 k/uL (3.8-10.6)
[2019-10-31 08:02] LABS: Platelet Count 42 k/uL (150-450)
--- NOTE | 2019-10-31 11:11 | P.PN ---
Subjective Progress Note Date: 10/31/19 44-year-old male patient presented emergency room yesterday on 10/28/2019 with chief complaint of alcohol intoxication and requesting help with detox and. He also reported hematemesis at the beginning of kidney stones like when he had a month ago. He has a long-standing history of alcohol abuse including liver cirrhosis, ascites, portal hypertension, pancreatitis, lower GI bleed, esophageal varices with banding. He told the emergency room that he had been consuming approximately a fifth of liquor a day and he wants to quit. His serum alcohol level was 420 is also positive for marijuana, urine cocaine screen positive, urine methamphetamine screen was also positive. Other laboratory the emergency room included CBC with white blood cell count 6.5, hemoglobin 12.0, hematocrit of 36.9, platelet count 136. PT of 12.0, INR 1.2, APTT 27.0. Chemistry resulted in sodium 142, potassium 3.6, chloride 112, MASOUD of 7, creatinine of 0.41, glucose of 119, total bilirubin 1.8, AST 117, ALP 32, alk phos 177 and a lipase of 338. Initial lactic acid was 2.4 and was rechecked approximately 4 hours later and was 1.8. He mentioned in the emergency room that he broke his foot approximately 1 month ago but was unable to elaborate on how and he complains of pain still on that left foot. 10/29/2019 patient lying in bed,easily arousable, alert and oriented 3, following commands. He does have complaints of abdominal pain with some generalized achiness. Denies left foot and/or flank pain at this time. He does state the Ativan has helped with shakes although he is mildly tremulous at times. 10/30/2019 maintained on CIWA protocol, current CIWA score 9. Active DTs. Confused with diffuse shakiness, itchy, jittery. Potassium 3.4 and magnesium 1.6. T-max 100.1. Hemoglobin decreased to 10.5, platelets down to 53, 10/31/2019 more alert , shakiness improving .maintained on IV fluid hydration, seizure precautions, Lasix, Aldactone, lactulose. Ammonia significantly improved, down to 29. Potassium 3.4, magnesium 1.6, replacements ordered. Hemoglobin 10.8 .afebrile, WBC 2.9 .CIWA score currently 7. Underwent paracentesis yesterday with 9.5 L removed, tolerated procedure well. T bili increased up to 2.2, AST 73, ALT 23, alk phos 128. Albumin 3.2. Complains of umbilical and left lower quadrant discomfort. Objective - Vital Signs Vital signs: Vital Signs Temp 98.1 F 10/31/19 07:00 Pulse 94 10/31/19 07:00 Resp 16 10/31/19 07:00 BP 126/68 10/31/19 07:00 Pulse Ox 93 L 10/31/19 07:00 Intake & Output 10/30/19 10/31/19 10/31/19 18:59 06:59 18:59 Output Total 700 250 Balance -700 -250 Output: Urine 700 250 Other: Voiding Method Urinal Urinal # Voids 1 3 1 # Bowel Movements 1 - Exam GENERAL: Sitting up in bed, confused, active DTs, jittery, shaky HEAD: Atraumatic, normocephalic. EYES: Pupils equal round and reactive to light, extraocular movements intact, no sclera icterus, conjunctiva are normal. ENT:nares patent, oropharynx clear without exudates. Moist mucous membranes. NECK: Normal range of motion, supple without lymphadenopathy or JVD, no thyromegaly LUNGS: Breath sounds with bilateral lateral scattered rhonchi that clears with cough. HEART: Regular rate and rhythm without murmurs, rubs or gallops.S1S2 Normal ABDOMEN: Abdomen softer, distended, status post paracentesis, hypoactive bowel sounds, no ecchymosis, mildly tender umbilical area, left flank. EXTREMITIES: Normal range of motion, no pitting or edema. No clubbing or cyanosis. Radial and DP pulses +2 over 4 equal bilaterally. Sensation intact in upper and lower extremities. NEUROLOGICAL: Cranial nerves II through XII grossly intact. Normal speech. Minimal tremors, no asterixis. SKIN: Warm, Dry, normal turgor, no rashes noted. - Labs CBC & Chem 7: 10/31/19 06:49 10/31/19 06:49 Labs: Abnormal Lab Results - Last 24 Hours (Table) 10/30/19 10/31/19 10/31/19 Range/Units 09:10 06:49 06:49 WBC 2.9 L (3.8-10.6) k/uL RBC 3.52 L (4.30-5.90) m/uL Hgb 10.8 L (13.0-17.5) gm/dL Hct 33.4 L (39.0-53.0) % RDW 17.2 H (11.5-15.5) % Plt Count 42 L (150-450) k/uL Lymphocytes # 0.6 L (1.0-4.8) k/uL PT 13.3 H (9.0-12.0) sec INR 1.3 H (<1.2) Potassium 3.4 L (3.5-5.1) mmol/L Chloride 111 H (98-107) mmol/L Carbon Dioxide 19 L (22-30) mmol/L BUN 4 L (9-20) mg/dL Creatinine 0.39 L (0.66-1.25) mg/dL Calcium 7.8 L (8.4-10.2) mg/dL Total Bilirubin 2.2 H (0.2-1.3) mg/dL AST 73 H (17-59) U/L Alkaline Phosphatase 128 H (38-126) U/L Albumin 3.2 L (3.5-5.0) g/dL Assessment and Plan Assessment: (1) acute alcohol intoxication with DTs in a patient with history of alcohol dependence Current Visit: Yes Status: Acute Code(s): F10.929 - ALCOHOL USE, UNSPECIFIED WITH INTOXICATION, UNSPECIFIED SNOMED Code(s): 81877155 Current Visit: Yes Status: Acute Code(s): F10.10 - ALCOHOL ABUSE, UNCOMPLICATED SNOMED Code(s): 62187237 Current Visit: No Status: Acute Code(s): F10.129 - ALCOHOL ABUSE WITH INTOXICATION, UNSPECIFIED SNOMED Code(s): 204394743 (2) Methamphetamine abuse Current Visit: Yes Status: Acute Code(s): F15.10 - OTHER STIMULANT ABUSE, UNCOMPLICATED SNOMED Code(s): 562388540 (3) Alcoholic cirrhosis of liver with ascites Current Visit: No Status: Acute Code(s): K70.31 - ALCOHOLIC CIRRHOSIS OF LIVER WITH ASCITES SNOMED Code(s): 456788141 (4) Abdominal pain in patient with history of esophageal varices, multiple variceal bandings Current Visit: No Status: Acute Code(s): R10.9 - UNSPECIFIED ABDOMINAL PAIN SNOMED Code(s): 29052340 (5) acute on chronic blood loss anemia secondary to all the above. (6) chronic pancreatitis (7) Cocaine abuse Current Visit: No Status: Acute Code(s): F14.10 - COCAINE ABUSE, UNCOMPLICATED SNOMED Code(s): 64980531 (8) Lactic acidosis Current Visit: No Status: Acute Code(s): E87.2 - ACIDOSIS SNOMED Code(s): 07395885 (9) Polysubstance abuse Current Visit: No Status: Acute Code(s): F19.10 - OTHER PSYCHOACTIVE SUBS TANCE ABUSE, UNCOMPLICATED SNOMED Code(s): 224228333 (10) Tobacco abuse Current Visit: Yes Status: Acute Code(s): Z72.0 - TOBACCO USE SNOMED Code(s): 489931536 (11)Coagulopathy Current Visit: No Status: Acute Code(s): D68.9 - COAGULATION DEFECT, UNSPEC IFIED SNOMED Code(s): 04494968 (12) Portal hypertension, mild to moderate Current Visit: No Status: Acute Code(s): K76.6 - PORTAL HYPERTENSION SNOMED Code(s): 41396594 (13) leukopenia (14) hypoalbuminemia Plan: Continue on current medication regime ,monitoring and symptomatic treatment. Repeat Potassium and magnesium replacement supplementation as ordered. Continue on lactulose, Aldactone, Lasix, PPI. Close monitoring of el ectrolytes, ammonia level, CBC with repeat labs ordered for a.m. Alcohol, smoking cessation reinforced, discussed rehab. Staff reports, Patient called [facility]/Medicaid yesterday regarding rehab. Social work to assist/follow- [facility] with [facility] regarding rehab options. Discharge planning in progress. The impression and plan of care has been dictated as directed. Dr.: I performed a history and examination of this patient, discussed the same with the dictator. I agree with the dictator's note ,documented as a scribe. Any additional findings or plans will be noted. The impression and plan of care has been dictated as directed. Dr.: I performed a history and examination of this patient, discussed the same with the dictator. I agree with the dictator's note ,documented as a scribe. Any additional findings or plans will be noted.
--- NOTE | 2019-10-31 21:14 | P.PN ---
Subjective Progress Note Date: 10/31/19 Principal diagnosis: Decompensated alcoholic cirrhosis of the liver with ascites, esophageal varices, portal hypertension Patient lying in bed tolerating his diet. No nausea or vomiting. Overall feels improved. Still having some abdominal discomfort around the area of prior h ernia repair. Objective - Vital Signs Vital signs: Vital Signs Temp 98.1 F 10/31/19 07:00 Pulse 94 10/31/19 07:00 Resp 16 10/31/19 07:00 BP 126/68 10/31/19 07:00 Pulse Ox 93 L 10/31/19 07:00 Intake & Output 10/30/19 10/31/19 10/31/19 18:59 06:59 18:59 Output Total 700 250 Balance -700 -250 Output: Urine 700 250 Other: Voiding Method Urinal Urinal # Voids 1 3 1 # Bowel Movements 1 - Exam On physical examination, patient appears comfortable in no apparent distress. HEAD: Normocephalic, atraumatic. EYES: No scleral icterus. No conjunctival injection. MOUTH: No lesions, tongue midline. NECK: Trachea midline, no gross abnormalities. ABDOMEN: Soft, minimally distended with well-healing surgical site. Bowel sounds are positive. No organomegaly. No guarding or rigidity. EXTREMITIES: No pedal edema. SKIN: No rashes, no jaundice. NEUROLOGIC: Alert and oriented x3. No focal deficits. - Labs CBC & Chem 7: 10/31/19 06:49 10/31/19 06:49 Labs: Abnormal Lab Results - Last 24 Hours (Table) 10/31/19 10/31/19 Range/Units 06:49 06:49 WBC 2.9 L (3.8-10.6) k/uL RBC 3.52 L (4.30-5.90) m/uL Hgb 10.8 L (13.0-17.5) gm/dL Hct 33.4 L (39.0-53.0) % RDW 17.2 H (11.5-15.5) % Plt Count 42 L (150-450) k/uL Lymphocytes # 0.6 L (1.0-4.8) k/uL Potassium 3.4 L (3.5-5.1) mmol/L Chloride 111 H (98-107) mmol/L Carbon Dioxide 19 L (22-30) mmol/L BUN 4 L (9-20) mg/dL Creatinine 0.39 L (0.66-1.25) mg/dL Calcium 7.8 L (8.4-10.2) mg/dL Total Bilirubin 2.2 H (0.2-1.3) mg/dL AST 73 H (17-59) U/L Alkaline Phosphatase 128 H (38-126) U/L Albumin 3.2 L (3.5-5.0) g/dL Assessment and Plan (1) Alcoholic cirrhosis of liver with ascites Narrative/Plan: 44-year-old male with a known history of decompensated alcoholic cirrhosis with history of ascites, esophageal varices with previous banding and encephalopathy who presented due to active alcohol use and intoxication. Patient is status post paracentesis with over 9 L removed. He had been noncompliant with lactulose therapy as well as Lasix and Aldactone in the outpatient setting. Currently no signs or symptoms of GI bleeding. Current Visit: No Status: Acute Code(s): K70.31 - ALCOHOLIC CIRRHOSIS OF LIVER WITH ASCITES SNOMED Code(s): 468292907 (2) Alcohol intoxication Current Visit: Yes Status: Acute Code(s): F10.929 - ALCOHOL USE, UNSPECIFIED WITH INTOXICATION, UNSPECIFIED SNOMED Code(s): 31676761 (3) Coagulopathy Current Visit: No Status: Acute Code(s): D68.9 - COAGULATION DEFECT, UNSPECIFIED SNOMED Code(s): 45215396 (4) Esophageal varices Current Visit: No Status: Acute Code(s): I85.00 - ESOPHAGEAL VARICES WITHOUT BLEEDING SNOMED Code(s): 25147220 (5) Portal hypertension Current Visit: No Status: Acute Code(s): K76.6 - PORTAL HYPERTENSION SNOMED Code(s): 49803676 Plan: Supportive care Okay for low sodium diet as tolerated Continue Lasix and Aldactone Lactulose 3 times a day Protonix twice daily Alcohol abstinence Monitor for signs or symptoms of GI bleeding Monitor for alcohol withdrawal No plans for endoscopic evaluation at this time Okay for discharge to follow-up with rehabilitation facility when otherwise medically stable Thank you for allowing us to participate in the care of the patient
[2019-11-01] MEDS: FOLIC ACID 1 MG TAB PO SCH (07:23)
[2019-11-01] MEDS: SPIRONOLACTONE 25 MG TAB PO SCH (07:23)
[2019-11-01] MEDS: LACTULOSE 20 GM/30 ML CUP PO SCH (07:23)
[2019-11-01] MEDS: NICOTINE 21MG/24HR PATCH TRANSDERM SCH (07:23)
[2019-11-01] MEDS: MAGNESIUM OXIDE 400 MG TAB PO SCH (07:23)
[2019-11-01] MEDS: FUROSEMIDE 40 MG TAB PO SCH (07:24)
[2019-11-01] MEDS: traMADol 50 MG TAB PO PRN (07:24)
[2019-11-01] MEDS: LORazepam 2 MG/ML INJ IV PRN (07:24)
[2019-11-01] MEDS: THIAMINE 100 MG TAB PO SCH (07:25)
[2019-11-01] MEDS: POTASSIUM CHLORIDE ER 20 MEQ TAB.ER PO SCH (07:25)
[2019-11-01] MEDS: MULTIVITAMINS, THERA 1 EACH TAB PO SCH (07:25)
[2019-11-01 07:41] VITALS: BP 115/76; PULSE 90; RESP 16; TEMP 98
[2019-11-01 08:32] LABS: ALT 23 U/L (4-49); AST 66 U/L (17-59); African American GFR (CKD) >90 (>60 ml/min/1.73 sqM); Albumin 3.2 g/dL (3.5-5.0); Alkaline Phosphatase 131 U/L (38-126); Anion Gap 9 mmol/L; Blood Urea Nitrogen 4 mg/dL (9-20); Calcium 8.5 mg/dL (8.4-10.2); Carbon Dioxide 20 mmol/L (22-30); Chloride 106 mmol/L (98-107); Glucose 102 mg/dL (74-99); Non-African American GFR(CKD) >90 (>60 ml/min/1.73 sqM); Potassium 3.6 mmol/L (3.5-5.1); Sodium 135 mmol/L (137-145); Total Bilirubin 1.7 mg/dL (0.2-1.3); Total Protein 6.5 g/dL (6.3-8.2)
[2019-11-01] MEDS ORDERED: Potassium Replacement Protocol 1 EACH MISC MISCELLANE PRN (11:45)
[2019-11-01] MEDS ORDERED: Magnesium Replacement Protocol 1 EACH MISC MISCELLANE PRN (11:45)
[2019-11-01] MEDS: MAGNESIUM SULFATE-D5W PMX 1 GM in DEXTROSE/WATER 1 100ML.BAG IVPB SCH ×2 (11:58→13:09)
[2019-11-01] MEDS ORDERED: POTASSIUM CHLORIDE ER 20 MEQ TAB.ER PO SCH (12:00)
--- NOTE | 2019-11-03 16:24 | P.DS ---
Providers Date of admission: 10/30/19 09:30 Expected date of discharge: 11/01/19 Attending physician: Aristeo Fox Consults: GI,Dr. Harrington Primary care physician: [facility] Course: Final Diagnoses: (1) acute alcohol intoxication with DTs in a patient with history of alcohol dependence Current Visit: Yes Status: Acute Code(s): F10.929 - ALCOHOL USE, UNSPECIFIED WITH INTOXICATION, UNSPECIFIED SNOMED Code(s): 82109363 Current Visit: Yes Status: Acute Code(s): F10.10 - ALCOHOL ABUSE, UNCOMPLICATED SNOMED Code(s): 51877840 Current Visit: No Status: Acute Code(s): F10.129 - ALCOHOL ABUSE WITH INTOXICATION, UNSPECIFIED SNOMED Code(s): 640615540 (2) Methamphetamine abuse Current Visit: Yes Status: Acute Code(s): F15.10 - OTHER STIMULANT ABUSE, UNCOMPLICATED SNOMED Code(s): 301542488 (3) Alcoholic cirrhosis of liver with ascites, decompensated Current Visit: No Status: Acute Code(s): K70.31 - ALCOHOLIC CIRRHOSIS OF LIVER WITH ASCITES SNOMED Code(s): 857992982 (4) Abdominal pain in patient with history of esophageal varices, multiple variceal bandings Current Visit: No Status: Acute Code(s): R10.9 - UNSPECIFIED ABDOMINAL PAIN SNOMED Code(s): 96627436 (5) acute on chronic blood loss anemia secondary to all the above. (6) chronic pancreatitis (7) Cocaine abuse Current Visit: No Status: Acute Code(s): F14.10 - COCAINE ABUSE, UNCOMPLICATED SNOMED Code(s): 94026952 (8) Lactic acidosis Current Visit: No Status: Acute Code(s): E87.2 - ACIDOSIS SNOMED Code(s): 06503705 (9) Polysubstance abuse Current Visit: No Status: Acute Code(s): F19.10 - OTHER PSYCHOACTIVE SUBSTANCE ABUSE, UNCOMPLICATED SNOMED Code(s): 980020367 (10) Tobacco abuse Current Visit: Yes Status: Acute Code(s): Z72.0 - TOBACCO USE SNOMED Code(s): 466754330 (11)Coagulopathy Current Visit: No Status: Acute Code(s): D68.9 - COAGULATION DEFECT, UNSPECIFIED SNOMED Code(s): 28749337 (12) Portal hypertension, mild to moderate Current Visit: No Status: Acute Code(s): K76.6 - PORTAL HYPERTENSION SNOMED Code(s): 91191081 (13) leukopenia (14) hypoalbuminemia Hospital course:44-year-old male patient presented emergency room yesterday on 10/28/2019 with chief complaint of alcohol intoxication and requesting help with detox and. He also reported hematemesis at the beginning of kidney stones like when he had a month ago. He has a long-standing history of alcohol abuse including liver cirrhosis, ascites, portal hypertension, pancreatitis, lower GI bleed, esophageal varices with banding. He told the emergency room that he had been consuming approximately a fifth of liquor a day and he wants to quit. His serum alcohol level was 420 is also positive for marijuana, urine cocaine screen positive, urine methamphetamine screen was also positive. Other laboratory the emergency room included CBC with white blood cell count 6.5, hemoglobin 12.0, hematocrit of 36.9, platelet count 136. PT of 12.0, INR 1.2, APTT 27.0. Chemistry resulted in sodium 142, potassium 3.6, chloride 112, MASOUD of 7, creatinine of 0.41, glucose of 119, total bilirubin 1.8, AST 117, ALP 32, alk phos 177 and a lipase of 338. Initial lactic acid was 2.4 and was rechecked approximately 4 hours later and was 1.8. He mentioned in the emergency room that he broke his foot approximately 1 month ago but was unable to elaborate on how and he complains of pain still on that left foot. 10/29/2019 patient lying in bed,easily arousable, alert and oriented 3, following commands. He does have complaints of abdominal pain with some generalized achiness. Denies left foot and/or flank pain at this time. He does state the Ativan has helped with shakes although he is mildly tremulous at times. 10/30/2019 maintained on CIWA protocol, current CIWA score 9. Active DTs. Confused with diffuse shakiness, itchy, jittery. Potassium 3.4 and magnesium 1.6. T-max 100.1. Hemoglobin decreased to 10.5, platelets down to 53, 10/31/2019 more alert , shakiness improving .maintained on IV fluid hydration, seizure precautions, Lasix, Aldactone, lactulose. Ammonia significantly improved, down to 29. Potassium 3.4, magnesium 1.6, replacements ordered. Hemoglobin 10.8 .afebrile, WBC 2.9 .CIWA score currently 7. Underwent paracentesis yesterday with 9.5 L removed, tolerated procedure well. T bili increased up to 2.2, AST 73, ALT 23, alk phos 128. Albumin 3.2. Complains of umbilical and left lower quadrant discomfort. Significant clinical improvement. Cleared by GI for discharge. Patient has an intake appointment for next week scheduled for [facility]. Patient is being discharged home with a friend, in a stable condition with guarded prognosis. The impression and plan of care has been dictated as directed. : I performed a history and examination of this patient, discussed the same with the dictator. I agree with the dictator's note ,documented as a scribe. Any additional findings or plans will be noted. Patient Condition at Discharge: Stable Plan - Discharge Summary New Discharge Prescriptions: New Nicotine 21Mg/24Hr Patch [Habitrol] 1 patch TRANSDERM DAILY #30 patch Lactulose [Cephulac] 30 gm PO TID #480 ml Magnesium Oxide [Mag-Ox] 400 mg PO BID #60 tab Pantoprazole Sodium [Protonix] 40 mg PO BID #60 tablet.dr Ruddy Thiamine [Vitamin B-1] 100 mg PO DAILY #30 tablet Multivitamins, Thera [Multivitamin (formulary)] 1 tab PO DAILY Potassium Chloride ER [K-Dur 20] 20 meq PO DAILY #10 tab Furosemide [Lasix] 40 mg PO DAILY Spironolactone [Aldactone] 50 mg PO DAILY Folic Acid 1 mg PO DAILY Discontinued Magnesium Oxide [Mag-Ox] 400 mg PO DAILY #30 tablet Discharge Medication List Thiamine [Vitamin B-1] 100 mg PO DAILY #30 tablet 09/03/17 [Rx] Multivitamins, Thera [Multivitamin (formulary)] 1 tab PO DAILY 12/14/18 [History] Potassium Chloride ER [K-Dur 20] 20 meq PO DAILY #10 tab 01/22/19 [Rx] Furosemide [Lasix] 40 mg PO DAILY 02/03/19 [History] Spironolactone [Aldactone] 50 mg PO DAILY 07/05/19 [History] Folic Acid 1 mg PO DAILY 10/28/19 [History] Lactulose [Cephulac] 30 gm PO TID #480 ml 11/01/19 [Rx] Magnesium Oxide [Mag-Ox] 400 mg PO BID #60 tab 11/01/19 [Rx] Nicotine 21Mg/24Hr Patch [Habitrol] 1 patch TRANSDERM DAILY #30 patch 11/01/19 [Rx] Pantoprazole Sodium [Protonix] 40 mg PO BID #60 tablet. 11/01/19 [Rx] Follow up Appointment(s)/Referral(s): James Meza Jr, DO [Primary Care Provider] - 11/07/19 10:30 am Epifanio Harrington MD [STAFF PHYSICIAN] - 11/24/19 2:30 pm (Please bring insurance card and picture ID) Ambulatory/Diagnostic Orders: Complete Blood Count w/diff [LAB.AMB] Time Frame: 3 Days, Location: None Selected Patient Instructions/Handouts: Cirrhosis (DC), Ascites (DC) Activity/Diet/Wound Care/Special Instructions: [facility] low sodium diet no etoh Discharge Disposition: HOME SELF-CARE
== END 2019-11-01 15:43 | disposition home or self-care (01) | DRG 896 ==
LOC: EC 17:21 → 4SSUR 21:16 → OBSVTOIN 10-30 09:30
PROVIDERS: ADMIT Family Medicine; ATTEND Family Medicine
PROC: 0W9G3ZZ Drainage of Peritoneal Cavity, Percutaneous Approach (ICD-10-PCS; principal; 2019-10-30)
DX: F10.229 Alcohol dependence with intoxication, unspecified (principal); G92 Toxic encephalopathy; K85.20 Alcohol induced acute pancreatitis without necrosis or infection; K76.6 Portal hypertension; D62 Acute posthemorrhagic anemia; D68.9 Coagulation defect, unspecified; E87.2 Acidosis; I85.10 Secondary esophageal varices without bleeding; F10.231 Alcohol dependence with withdrawal delirium; K70.31 Alcoholic cirrhosis of liver with ascites; J45.909 Unspecified asthma, uncomplicated; F14.10 Cocaine abuse, uncomplicated; F43.10 Post-traumatic stress disorder, unspecified; F31.9 Bipolar disorder, unspecified; F17.200 Nicotine dependence, unspecified, uncomplicated; F15.10 Other stimulant abuse, uncomplicated; Y90.8 Blood alcohol level of 240 mg/100 ml or more; E88.09 Other disorders of plasma-protein metabolism, not elsewhere classified; Z11.59 Encounter for screening for other viral diseases; Z79.899 Other long term (current) drug therapy; Z87.19 Personal history of other diseases of the digestive system; Z90.49 Acquired absence of other specified parts of digestive tract; Z98.890 Other specified postprocedural states; Z82.49 Family history of ischemic heart disease and other diseases of the circulatory system; Z87.01 Personal history of pneumonia (recurrent); Z86.14 Personal history of Methicillin resistant Staphylococcus aureus infection; Z87.442 Personal history of urinary calculi; Z91.14 Patient's other noncompliance with medication regimen; Z91.19 Patient's noncompliance with other medical treatment and regimen
CPT/HCPCS: 36415; 49083; 74018; 76770; 80053; 80306; 80320; 81001; 82140; 82247; 83605; 83690; 83735; 84075; 84450; 84460; 85025; 85610; 85730; 94640; 96361; 96372; 96374; 99285

== ENCOUNTER 2019-11-04 18:23 | Observation (INO) | payer OTHER ==
[2019-11-04] MEDS ORDERED: PERMETHRIN 1% CREME RINSE 59 ML LIQUID TOPICAL ONE (21:07)
[2019-11-04] MEDS ORDERED: NALOXONE 0.4 MG/ML 1 ML VIAL IV PRN (21:11)
[2019-11-04] MEDS ORDERED: THIAMINE 100 MG/ML 2 ML VIAL IM STA (21:11)
[2019-11-04] MEDS ORDERED: LORazepam 2 MG/ML INJ IV PRN (21:11)
--- NOTE | 2019-11-04 21:17 | ED ---
Alcohol HPI - General Chief Complaint: Alcohol Stated Complaint: withdrawals Time Seen by Provider: 11/04/19 18:38 Source: patient, police Mode of arrival: ambulatory Limitations: no limitations - History of Present Illness Initial Comments: 44-year-old male presenting today for chief complaint of shakiness generalized abdominal pain. Patient states that he is a heavy drinker with history of HIM. Patient states they drank heavy earlier today. Went to [facility] where he had labs, CT and UA done. Patient discharged --and was supposed to go to [facility] for rehabilitation for etoh abuse and was picked up by police in parking lot for "acting weird" patient states [facility], then was released and brought here. patient states abdominal pain the same and he has some shakes believes he is withdrawing. Patient denies seizure activity, vomiting, diarrhea. Admits to aggitation. Patient is AAOx4 on arrival no acute distress. HR elevated. - Related Data Home Medications Medication Instructions Recorded Confirmed Multivitamins, Thera [Multivitamin 1 tab PO DAILY 12/14/18 10/28/19 (formulary)] Furosemide [Lasix] 40 mg PO DAILY 02/03/19 10/28/19 Spironolactone [Aldactone] 50 mg PO DAILY 07/05/19 10/28/19 Folic Acid 1 mg PO DAILY 10/28/19 10/28/19 Previous Rx's Medication Instructions Recorded Thiamine [Vitamin B-1] 100 mg PO DAILY #30 tablet 09/03/17 Potassium Chloride ER [K-Dur 20] 20 meq PO DAILY #10 tab 01/22/19 Lactulose [Cephulac] 30 gm PO TID #480 ml 11/01/19 Magnesium Oxide [Mag-Ox] 400 mg PO BID #60 tab 11/01/19 Nicotine 21Mg/24Hr Patch [Habitrol] 1 patch TRANSDERM DAILY #30 patch 11/01/19 Pantoprazole Sodium [Protonix] 40 mg PO BID #60 tablet. 11/01/19 Allergies Allergy/AdvReac Type Severity Reaction Status Date / Time No Known Allergies Allergy Verified 11/04/19 18:25 Review of Systems ROS Statement: Those systems with pertinent positive or pertinent negative responses have been documented in the HPI. ROS Other: All systems not noted in ROS Statement are negative. Past Medical History Past Medical History: Asthma, GI Bleed, Liver Disease, Pneumonia, Renal Disease, Skin Disorder Additional Past Medical History / Comment(s): Liver cirrhosis, portal HTN, abdominal ascities, pancreatitis, upper and lower GI bleeds, bleeding ulcers, esophageal varicies-banded, thrombocytopemia, chronic anemia, gallstones, nephrolithiasis/hematuria, L inguinal hernia, psoriasis; paracentesis, hernia, left foot injury (2 months ago) History of Any Multi-Drug Resistant Organisms: MRSA Date of last positivie culture/infection: 12/09/13 MDRO Source:: Right first finger Past Surgical History: Appendectomy, Cholecystectomy, Hernia Repair, Orthopedic Surgery Additional Past Surgical History / Comment(s): EGDs/varicies banding/colonoscopy, paracentesis, right hand tendon repair, right knee arthroscopy, cystoscopy for kidney stone removal, right hand ring finger surgery. surgery for umbilical hernia, Past Anesthesia/Blood Transfusion Reactions: Previous Problems w/ Anesthesia, Motion Sickness Additional Past Anesthesia/Blood Transfusion Reaction / Comment(s): Woke up during scope procedure. Past Psychological History: Anxiety, Bipolar, Depression, PTSD Smoking Status: Current every day smoker Past Alcohol Use History: Abuse, Daily Past Drug Use History: Cocaine, Heroin, Marijuana - Past Family History Mother Family Medical History: No Reported History Additional Family Medical History / Comment(s): Mother has health issues from a MVA-pt did not elaborate. Father Family Medical History: Vascular Disorder Additional Family Medical History / Comment(s): Prostate issues grandpa. Brain aneurysm father. General Exam - General Exam Comments Initial Comments: General: The patient is awake and alert, in no distress Eye: +3 mm pupils are equal, round and reactive to light, extra-ocular movements are intact. No nystagmus. There is normal conjunctiva bilaterally. No signs of icterus. Ears, nose, mouth and throat: There are moist mucous membranes and no oral lesions. Neck: The neck is supple, there is no tenderness or JVD. Cardiovascular: There is a regular rate and rhythm. No murmur, rub or gallop is appreciated. Respiratory: Lungs are clear to auscultation, respirations are non-labored, breath sounds are equal. No wheezes, stridor, rales, or rhonchi. Gastrointestinal: Soft, non-distended, diffuse mild tenderness of the abdomen without masses or organomegaly noted. There is no rebound or guarding present. Musculoskeletal: Normal ROM, no tenderness. Strength 5/5. Sensation intact. Radial pulses equal bilaterally 2+. Neurological: A&O x 3. CN II-XII intact, There are no obvious motor or sensory deficits. Coordination appears grossly intact. Speech is normal. Tremor hands b/l Skin: Skin is warm and dry and no rashes or lesions are noted. Psychiatric: Cooperative, but appears mildly agitated. Limitations: no limitations Course Vital Signs 11/04/19 18:25 Temperature 98.3 F Pulse Rate 109 H Respiratory 18 Rate Blood Pressure 127/71 O2 Sat by Pulse 96 Oximetry Medical Decision Making - Medical Decision Making History of the present today for chief complaint of abdominal pain, brought here by police. Denies suicidal homicidal ideation. Patient was evaluated earlier by Dr. Ata barbosa and we will provide the laboratory studies WBC 8 hemoglobin 11.5 platelets 153 sodium 139 potassium 4.0 chloride 103 BUN 19 creatinine 1 glucose 110, calcium 8.9 mild elevation of AST at 61 alkaline phosphatase 139. Patient other abnormality was his bilirubin of 2.7. Patient's lipase was within normal limits magnesium within normal limits. Alcohol level was which were drawn were negative patient was found to have significant RBCs in the urine. CT + for liver changes, heterogeneous hypodenisty areas significant findings consistent with liver disease he was also noted to have an may-type umbilical hernia patient is point localized tenderness over this area. Is no nephrolithiasis and bilateral kidneys that appeared Nonobstructive.Ascites noted. ETOH withdrawls were a concern, patient placed on CIWA protocols and admitted for observation due to concern for withdrawal. No findings of delirium. Disposition Clinical Impression: Alcohol abuse, Alcohol withdrawal, Liver lesion, Ascites, Umbilical hernia, Abdominal pain, Hematuria, Nephrolithiasis Disposition: ADMITTED IP TO THIS HOSP Condition: Stable Is patient prescribed a controlled substance at d/c from ED?: No Time of Disposition: 21:57 Decision to Admit Reason: Admit from EC Decision Date: 11/04/19 Decision Time: 21:57
[2019-11-04] MEDS: LORazepam 2 MG/ML INJ IV PRN ×2 (22:02→23:13)
[2019-11-04] MEDS: THIAMINE 100 MG TAB PO SCH (22:10)
[2019-11-05] MEDS: LORazepam 2 MG/ML INJ IV PRN ×5 (01:00→08:51)
[2019-11-05] MEDS: THIAMINE 100 MG TAB PO SCH ×2 (07:51→17:19)
--- NOTE | 2019-11-05 08:40 | P.HPIM ---
History of Present Illness H&P Date: 11/05/19 Chief Complaint: Alcohol withdrawal 44-year-old male with long-standing history of alcohol abuse. His chief complaint was shakiness and generalized abdominal pain. Earlier in the evening he had presented himself to [facility] for the same complaints. They completed labs, CT, and a UA and he was subsequently discharged at that time. Police picked him up in the parking lot for "acting weird"and took him to complete station and then brought him to the emergency room at [facility]. He has an intake date at [facility] for substance abuse rehabilitation and he will go there t on 11/06/2019. Currently the patient alert and oriented 3, sitting up in bed eating breakfast with complaints of generalized abdominal pain. He rates his pain at a level 5-6, but states his normal abdominal pain is rated at a 4 anyways. He denies nausea, vomiting, diarrhea, bloody stools. He denies tremors at this time, hallucinations, visual disturbances or known seizure. Denies chest pain or pressure or irregular heart rate, cough, feelings of hopelessness, thoughts of self-harm or harming others. Review of Systems Constitutional: Reports chronic pain Ears, nose, mouth and throat: Reports as per HPI Cardiovascular: Reports as per HPI Respiratory: Reports as per HPI Gastrointestinal: Reports abdominal pain Genitourinary: Reports as per HPI Musculoskeletal: Reports as per HPI Integumentary: Reports as per HPI Neurological: Reports as per HPI Psychiatric: Reports as per HPI Endocrine: Reports as per HPI Hematologic/Lymphatic: Reports as per HPI Allergic/Immunologic: Reports as per HPI Past Medical History Past Medical History: Asthma, GI Bleed, Liver Disease, Pneumonia, Renal Disease, Skin Disorder Additional Past Medical History / Comment(s): Liver cirrhosis, portal HTN, abdominal ascities, pancreatitis, upper and lower GI bleeds, bleeding ulcers, esophageal varicies-banded, thrombocytopemia, chronic anemia, gallstones, nephrolithiasis/hematuria, L inguinal hernia, psoriasis; paracentesis, hernia, left foot injury (2 months ago) History of Any Multi-Drug Resistant Organisms: MRSA Date of last positivie culture/infection: 12/09/13 MDRO Source:: Right first finger Past Surgical History: Appendectomy, Cholecystectomy, Hernia Repair, Orthopedic Surgery Additional Past Surgical History / Comment(s): EGDs/varicies banding/colonoscopy, paracentesis, right hand tendon repair, right knee arthroscopy, cystoscopy for kidney stone removal, right hand ring finger surgery. surgery for umbilical hernia, Past Anesthesia/Blood Transfusion Reactions: Previous Problems w/ Anesthesia, Motion Sickness Additional Past Anesthesia/Blood Transfusion Reaction / Comment(s): Woke up during scope procedure. Past Psychological History: Anxiety, Bipolar, Depression, PTSD Additional Psychological History / Comment(s): Pt resides with Roger (friends). He uses no assistive device. He does not drive, family drives him to [employer]. Smoking Status: Current every day smoker Past Alcohol Use History: Abuse, Daily Additional Past Alcohol Use History / Comment(s): Pt states he started smoking in 1984- states he is back up to a ppd. Pt drinks 1/5 of vodka a day and last drank 10/28/19 Past Drug Use History: Cocaine, Heroin, Marijuana Additional Drug Use History / Comment(s): pt stats he last smoked marijuana on 10/28/19 and last did cocaine on 10/25/19 - Past Family History Mother Family Medical History: No Reported History Additional Family Medical History / Comment(s): Mother has health issues from a MVA-pt did not elaborate. Father Family Medical History: Vascular Disorder Additional Family Medical History / Comment(s): Prostate issues grandpa. Brain aneurysm father. Medications and Allergies Home Medications Medication Instructions Recorded Confirmed Type Thiamine [Vitamin B-1] 100 mg PO DAILY #30 tablet 09/03/17 11/04/19 Rx Multivitamins, Thera [Multivitamin 1 tab PO DAILY 12/14/18 11/04/19 History (formulary)] Potassium Chloride ER [K-Dur 20] 20 meq PO DAILY #10 tab 01/22/19 11/04/19 Rx Furosemide [Lasix] 40 mg PO DAILY 02/03/19 11/04/19 History Spironolactone [Aldactone] 50 mg PO DAILY 07/05/19 11/04/19 History Folic Acid 1 mg PO DAILY 10/28/19 11/04/19 History Lactulose [Cephulac] 30 gm PO TID #480 ml 11/01/19 11/04/19 Rx Magnesium Oxide [Mag-Ox] 400 mg PO BID #60 tab 11/01/19 11/04/19 Rx Nicotine 21Mg/24Hr Patch [Habitrol] 1 patch TRANSDERM DAILY #30 patch 11/01/19 11/04/19 Rx Pantoprazole Sodium [Protonix] 40 mg PO BID #60 tablet. 11/01/19 11/04/19 Rx Allergies Allergy/AdvReac Type Severity Reaction Status Date / Time No Known Allergies Allergy Verified 11/04/19 22:03 Physical Exam Vitals: Vital Signs Temp Pulse Pulse Resp BP BP Pulse Ox 11/05/19 00:00 84 16 11/04/19 22:40 98.0 F 92 16 150/77 98 11/04/19 22:03 97.7 F 84 16 152/88 100 11/04/19 21:58 98.1 F 90 18 142/83 98 11/04/19 18:25 98.3 F 109 H 18 127/71 96 Intake and Output 11/04/19 11/05/19 11/05/19 22:59 06:59 14:59 Other: Voiding Method Toilet Urinal Weight 84.822 kg GENERAL: Well-appearing, well-nourished and in no acute distress. HEAD: Atraumatic, normocephalic. EYES: Pupils equal round and reactive to light, extraocular movements intact, sclera anicteric, conjunctiva are normal. ENT:nares patent, oropharynx clear without exudates. Moist mucous membranes. NECK: Normal range of motion, supple without lymphadenopathy or JVD, no thyromegaly LUNGS: Breath sounds clear to auscultation bilaterally and equal. No wheezes rales or rhonchi. HEART: Regular rate and rhythm without murmurs, rubs or gallops.S1S2 Normal ABDOMEN: Soft, nontender, normoactive bowel sounds. No guarding, no rebound. No masses appreciated. EXTREMITIES: Normal range of motion, no pitting or edema. No clubbing or cyanosis. NEUROLOGICAL: Cranial nerves II through XII grossly intact. Normal speech, normal gait. PSYCH: Normal mood, normal affect. SKIN: Warm, Dry, normal turgor, no rashes or lesions noted. Thrombosis Risk Factor Assmnt - Choose All That Apply Any of the Below Risk Factors Present?: Yes Each Factor Represents 1 point: Age 41-60 years, Medical pt on bed rest Thrombosis Risk Factor Assessment Total Risk Factor Score: 2 Thrombosis Risk Factor Assessment Level: Low Risk Assessment and Plan (1) Abdominal pain Current Visit: Yes Status: Acute Code(s): R10.9 - UNSPECIFIED ABDOMINAL PAIN SNOMED Code(s): 27572931 (2) Alcohol withdrawal Current Visit: Yes Status: Acute Code(s): F10.239 - ALCOHOL DEPENDENCE WITH WITHDRAWAL, UNSPECIFIED SNOMED Code(s): 290381568 (3) ETOH abuse Current Visit: Yes Status: Acute Code(s): F10.10 - ALCOHOL ABUSE, UNCOMPLICATED SNOMED Code(s): 31609849 (4) Alcoholic liver disease Current Visit: No Status: Acute Code(s): K70.9 - ALCOHOLIC LIVER DISEASE, UNSPECIFIED SNOMED Code(s): 90529273 (5) Dehydration Current Visit: No Status: Acute Code(s): E86.0 - DEHYDRATION SNOMED Code(s): 00402625 Plan: 1. Continue CIWA protocol. 2. Will continue to watch through the morning. 3. After lunch we will discharge home 4. Will reevaluate if condition changes. Time with Patient: Greater than 30
--- NOTE | 2019-11-05 08:45 | P.DS ---
Providers Date of admission: 11/04/19 21:11 Expected date of discharge: 11/05/19 Attending physician: James Meza Primary care physician: James Meza - Discharge Diagnosis(es) (1) Abdominal pain Current Visit: Yes Status: Acute (2) Alcohol withdrawal Current Visit: Yes Status: Acute (3) ETOH abuse Current Visit: Yes Status: Acute (4) Alcoholic liver disease Current Visit: No Status: Acute (5) Dehydration Current Visit: No Status: Acute Patient Condition at Discharge: Stable Plan - Discharge Summary Discharge Rx Participant: Yes New Discharge Prescriptions: No Action Thiamine [Vitamin B-1] 100 mg PO DAILY #30 tablet Multivitamins, Thera [Multivitamin (formulary)] 1 tab PO DAILY Potassium Chloride ER [K-Dur 20] 20 meq PO DAILY #10 tab Furosemide [Lasix] 40 mg PO DAILY Spironolactone [Aldactone] 50 mg PO DAILY Folic Acid 1 mg PO DAILY Nicotine 21Mg/24Hr Patch [Habitrol] 1 patch TRANSDERM DAILY #30 patch Lactulose [Cephulac] 30 gm PO TID #480 ml Magnesium Oxide [Mag-Ox] 400 mg PO BID #60 tab Pantoprazole Sodium [Protonix] 40 mg PO BID #60 tablet.dr Discharge Medication List Thiamine [Vitamin B-1] 100 mg PO DAILY #30 tablet 09/03/17 [Rx] Multivitamins, Thera [Multivitamin (formulary)] 1 tab PO DAILY 12/14/18 [History] Potassium Chloride ER [K-Dur 20] 20 meq PO DAILY #10 tab 01/22/19 [Rx] Furosemide [Lasix] 40 mg PO DAILY 02/03/19 [History] Spironolactone [Aldactone] 50 mg PO DAILY 07/05/19 [History] Folic Acid 1 mg PO DAILY 10/28/19 [History] Lactulose [Cephulac] 30 gm PO TID #480 ml 11/01/19 [Rx] Magnesium Oxide [Mag-Ox] 400 mg PO BID #60 tab 11/01/19 [Rx] Nicotine 21Mg/24Hr Patch [Habitrol] 1 patch TRANSDERM DAILY #30 patch 11/01/19 [Rx] Pantoprazole Sodium [Protonix] 40 mg PO BID #60 tablet. 11/01/19 [Rx] Follow up Appointment(s)/Referral(s): James Meza Jr, DO [Primary Care Provider] - 1-2 days Discharge Disposition: HOME SELF-CARE Plan of Treatment: Patient will be discharged home with self-care after lunch as he is in stable condition at this time. He has an intake day scheduled for 11/07/2019 at [facility].
[2019-11-05] MEDS: NICOTINE 21MG/24HR PATCH TRANSDERM SCH (17:19)
[2019-11-06] MEDS: LORazepam 2 MG/ML INJ IV PRN (04:43)
[2019-11-06] MEDS ORDERED: ACETAMINOPHEN TAB 325 MG TAB PO PRN (07:57)
[2019-11-06 08:09] VITALS: BP 104/66; PULSE 81; RESP 18; TEMP 98.1
[2019-11-06] MEDS: THIAMINE 100 MG TAB PO SCH (08:45)
[2019-11-06] MEDS: NICOTINE 21MG/24HR PATCH TRANSDERM SCH (08:45)
[2019-11-06 11:46] LABS: Urine Alcohol Negative (Negative); Urine Barbiturate Negative (Negative); Urine Cocaine Positive (Negative); Urine Methadone Negative (Negative); Urine Opiates Positive (Negative); Urine Phencyclidine Negative (Negative)
== END 2019-11-06 09:33 | disposition still patient (30) ==
LOC: EC 18:23 → 4SSUR 21:11 → INTOOBSV 21:11 → UNDODISIN 11-06 09:33
PROVIDERS: ADMIT Family Medicine; ATTEND Family Medicine
DX: F10.239 Alcohol dependence with withdrawal, unspecified (principal); K76.6 Portal hypertension; R18.8 Other ascites; E86.0 Dehydration; R31.9 Hematuria, unspecified; R10.84 Generalized abdominal pain; Z79.899 Other long term (current) drug therapy; J45.909 Unspecified asthma, uncomplicated; K70.9 Alcoholic liver disease, unspecified; Z87.11 Personal history of peptic ulcer disease; D69.6 Thrombocytopenia, unspecified; D64.9 Anemia, unspecified; L40.9 Psoriasis, unspecified; Z03.818 Encounter for observation for suspected exposure to other biological agents ruled out; Z11.59 Encounter for screening for other viral diseases; Z86.14 Personal history of Methicillin resistant Staphylococcus aureus infection; Z98.890 Other specified postprocedural states; Z90.49 Acquired absence of other specified parts of digestive tract; Z87.442 Personal history of urinary calculi; F41.9 Anxiety disorder, unspecified; F31.9 Bipolar disorder, unspecified; F43.10 Post-traumatic stress disorder, unspecified; Z87.01 Personal history of pneumonia (recurrent); F17.200 Nicotine dependence, unspecified, uncomplicated; Z82.49 Family history of ischemic heart disease and other diseases of the circulatory system; Z82.0 Family history of epilepsy and other diseases of the nervous system; K42.9 Umbilical hernia without obstruction or gangrene; K74.60 Unspecified cirrhosis of liver
CPT/HCPCS: 96376 ×3; 82075; 96374; 99285; 80306; G0378 ×3; U0003; S4990 ×2; J2060 ×3

== ENCOUNTER 2019-11-17 19:59 | Emergency (ER) | payer OTHER ==
[2019-11-17 20:16] VITALS: TEMP 98.1
[2019-11-17] MEDS ORDERED: ONDANSETRON 4 MG/2 ML VIAL IVP STA (20:37)
[2019-11-17] MEDS ORDERED: HYDROmorphone 0.5 MG/0.5 ML SYRINGE IVP STA (20:37)
--- NOTE | 2019-11-17 20:40 | ED ---
Abdominal Pain HPI - General Source: patient Mode of arrival: ambulatory Limitations: no limitations <Allison Wise - Last Filed: 11/17/19 23:09> <Digna Arriaza - Last Filed: 11/19/19 02:29> - General Chief Complaint: Abdominal Pain Stated Complaint: Hernia Time Seen by Provider: 11/17/19 20:27 - History of Present Illness Initial Comments: 44-year-old male patient presents to the emergency department today for evaluation of periumbilical abdominal pain. Patient states that for the last 4- 5 days he has been having increased bulging to the area, pain started 3 days ago. Patient states that the pain is now a 9 out of 10 on the pain scale. States he did have hernia surgery to that location 3-4 months ago. [facility] He has been there for the last 2 weeks. He does take pain medication 3 times daily while there. That he has been having some nausea but denies vomiting. States he is having normal bowel movements. Denies any hematochezia, melena, or hematemesis. Patient denies any recent rash, cough, shortness of breath, chest pain, back pain, numbness, tingling, dizziness, weakness, hematuria, dysuria, urinary urgency, urinary frequency, headache, visual changes, or any other complaints. (Allison Wise) - Related Data Home Medications Medication Instructions Recorded Confirmed Multivitamins, Thera [Multivitamin 1 tab PO DAILY 12/14/18 11/04/19 (formulary)] Furosemide [Lasix] 40 mg PO DAILY 02/03/19 11/04/19 Spironolactone [Aldactone] 50 mg PO DAILY 07/05/19 11/04/19 Folic Acid 1 mg PO DAILY 10/28/19 11/04/19 Previous Rx's Medication Instructions Recorded Thiamine [Vitamin B-1] 100 mg PO DAILY #30 tablet 09/03/17 Potassium Chloride ER [K-Dur 20] 20 meq PO DAILY #10 tab 01/22/19 Lactulose [Cephulac] 30 gm PO TID #480 ml 11/01/19 Magnesium Oxide [Mag-Ox] 400 mg PO BID #60 tab 11/01/19 Nicotine 21Mg/24Hr Patch [Habitrol] 1 patch TRANSDERM DAILY #30 patch 11/01/19 Pantoprazole Sodium [Protonix] 40 mg PO BID #60 tablet. 11/01/19 Allergies Allergy/AdvReac Type Severity Reaction Status Date / Time No Known Allergies Allergy Verified 11/17/19 20:16 Review of Systems ROS Other: All systems not noted in ROS Statement are negative. <Allison Wise - Last Filed: 11/17/19 23:09> ROS Other: All systems not noted in ROS Statement are negative. <Digna Arriaza - Last Filed: 11/19/19 02:29> ROS Statement: Those systems with pertinent positive or pertinent negative responses have been documented in the HPI. Past Medical History Past Medical History: Asthma, GI Bleed, Liver Disease, Pneumonia, Renal Disease, Skin Disorder Additional Past Medical History / Comment(s): Liver cirrhosis, portal HTN, abdominal ascities, pancreatitis, upper and lower GI bleeds, bleeding ulcers, esophageal varicies-banded, thrombocytopemia, chronic anemia, gallstones, nephrolithiasis/hematuria, L inguinal hernia, psoriasis; paracentesis, hernia, left foot injury (2 months ago) History of Any Multi-Drug Resistant Organisms: MRSA Date of last positivie culture/infection: 12/09/13 MDRO Source:: Right first finger Past Surgical History: Appendectomy, Cholecystectomy, Hernia Repair, Orthopedic Surgery Additional Past Surgical History / Comment(s): EGDs/varicies banding/colonoscopy, paracentesis, right hand tendon repair, right knee arthroscopy, cystoscopy for kidney stone removal, right hand ring finger surgery. surgery for umbilical hernia, Past Anesthesia/Blood Transfusion Reactions: Previous Problems w/ Anesthesia, Motion Sickness Additional Past Anesthesia/Blood Transfusion Reaction / Comment(s): Woke up during scope procedure. Past Psychological History: Anxiety, Bipolar, Depression, PTSD Smoking Status: Current every day smoker Past Alcohol Use History: Abuse, Daily Past Drug Use History: Cocaine, Heroin, Marijuana - Past Family History Mother Family Medical History: No Reported History Additional Family Medical History / Comment(s): Mother has health issues from a MVA-pt did not elaborate. Father Family Medical History: Vascular Disorder Additional Family Medical History / Comment(s): Prostate issues grandpa. Brain aneurysm father. <Allison Wise - Last Filed: 11/17/19 23:09> General Exam Limitations: no limitations General appearance: alert, in no apparent distress, other (Physical well- developed, well-nourished adult male patient in no acute distress. Vital signs upon presentation are temperature 98.1F, pulse 77, respirations 20, blood pr essure 132/60, pulse ox 99% on room air) Eye exam: Present: normal appearance, PERRL, EOMI. Absent: scleral icterus, conjunctival injection, periorbital swelling ENT exam: Present: normal exam, normal oropharynx, mucous membranes moist Respiratory exam: Present: normal lung sounds bilaterally. Absent: respiratory distress, wheezes, rales, rhonchi, stridor Cardiovascular Exam: Present: regular rate, normal rhythm, normal heart sounds. Absent: systolic murmur, diastolic murmur, rubs, gallop, clicks GI/Abdominal exam: Present: soft, tenderness (Periumbilical tenderness), normal bowel sounds, other (Healed midline incision. There is tenderness surrounding the umbilicus. No erythema. There is mild bulging.). Absent: distended, guarding, rebound, rigid Neurological exam: Present: alert, oriented X3, CN II-XII intact Psychiatric exam: Present: normal affect, normal mood Skin exam: Present: warm, dry, intact, normal color. Absent: rash <Allison Wise - Last Filed: 11/17/19 23:09> Course Vital Signs 11/17/19 11/17/19 20:13 23:34 Temperature 98.1 F 98.1 F Pulse Rate 77 74 Respiratory 20 18 Rate Blood Pressure 132/60 127/70 O2 Sat by Pulse 99 98 Oximetry Medical Decision Making - Lab Data Result diagrams: 11/17/19 20:57 11/17/19 20:57 - Radiology Data Radiology results: report reviewed, image reviewed <Allison Wise - Last Filed: 11/17/19 23:09> - Lab Data Result diagrams: 11/17/19 20:57 11/17/19 20:57 <Digna Arriaza - Last Filed: 11/19/19 02:29> - Medical Decision Making 44-year-old male patient presents to the emergency department today for evaluation of periumbilical abdominal pain. Patient did have hernia repair to the area of 4 months ago. Physical examination did reveal mild bulging to the area, some mild tenderness. Labs reviewed and are relatively unremarkable, most labs have improved from previous. Urinalysis did show greater than 180 red blood cells. Patient does have history of kidney stones. We did perform CT abdomen and pelvis which showed no evidence for hernia, no bowel obstruction. There are nonobstructing stones in the kidneys. Shows moderate ascites. He is afebrile normal vital signs. We will discharge back to [place]. He is instructed to follow-up with his surgeon for further evaluation. He is instructed to follow up with his urologist for further evaluation of his hematuria. Return parameters were discussed in detail. He verbalizes understanding and agrees with this plan. (Allison Wise) I was available for consultation in the emergency department. The history and physical exam were done by the midlevel provider. I was consulted for this [facility] care. I reviewed the case with the midlevel provider and based on their presentation of the patient, I agree with the assessment, medical decision making and plan of care as documented. Chart was dictated using [employer] dictation software. Attempts were made to correct any dictation errors however some typographical errors may persist. Patient was seen during a national state of emergency due to the Covid-19 pandemic. (Digna Arriaza) - Lab Data Lab Results 11/17/19 11/17/19 11/17/19 Range/Units 20:57 20:57 20:57 WBC 6.1 (3.8-10.6) k/uL RBC 3.38 L (4.30-5.90) m/uL Hgb 10.4 L (13.0-17.5) gm/dL Hct 32.6 L (39.0-53.0) % MCV 96.4 (80.0-100.0) fL MCH 30.7 (25.0-35.0) pg MCHC 31.8 (31.0-37.0) g/dL RDW 17.7 H (11.5-15.5) % Plt Count 148 L D (150-450) k/uL Neutrophils % 62 % Lymphocytes % 17 % Monocytes % 10 % Eosinophils % 5 % Basophils % 2 % Neutrophils # 3.8 (1.3-7.7) k/uL Lymphocytes # 1.1 (1.0-4.8) k/uL Monocytes # 0.6 (0-1.0) k/uL Eosinophils # 0.3 (0-0.7) k/uL Basophils # 0.1 (0-0.2) k/uL Hypochromasia Moderate Anisocytosis Slight Macrocytosis Slight Sodium 140 (137-145) mmol/L Potassium 3.8 (3.5-5.1) mmol/L Chloride 115 H (98-107) mmol/L Carbon Dioxide 18 L (22-30) mmol/L Anion Gap 7 mmol/L BUN 12 (9-20) mg/dL Creatinine 0.72 (0.66-1.25) mg/dL Est GFR (CKD-EPI)AfAm >90 (>60 ml/min/1.73 sqM) Est GFR (CKD-EPI)NonAf >90 (>60 ml/min/1.73 sqM) Glucose 114 H (74-99) mg/dL Plasma Lactic Acid Balaji (0.7-2.0) mmol/L Calcium 9.0 (8.4-10.2) mg/dL Total Bilirubin 0.6 (0.2-1.3) mg/dL AST 34 (17-59) U/L ALT 17 (4-49) U/L Alkaline Phosphatase 80 (38-126) U/L Total Protein 5.9 L (6.3-8.2) g/dL Albumin 3.0 L (3.5-5.0) g/dL Amylase 49 (30-110) U/L Lipase 316 H (23-300) U/L Urine Color Red Urine Appearance Cloudy (Clear) Urine pH 6.0 (5.0-8.0) Ur Specific [place] 1.033 (1.001-1.035) Urine Protein 1+ H (Negative) Urine Glucose (UA) Negative (Negative) Urine Ketones Trace H (Negative) Urine Blood Large H (Negative) Urine Nitrite Negative (Negative) Urine Bilirubin Negative (Negative) Urine Urobilinogen 3.0 (<2.0) mg/dL Ur Leukocyte Esterase Trace H (Negative) Urine RBC >182 H (0-5) /hpf Urine WBC 9 H (0-5) /hpf Ur Squamous Epith Cells 1 (0-4) /hpf Amorphous Sediment Occasional H (None) /hpf Hyaline Casts 38 H (0-2) /lpf Urine Mucus Few H (None) /hpf 07/03/20 Range/Units 20:57 WBC (3.8-10.6) k/uL RBC (4.30-5.90) m/uL Hgb (13.0-17.5) gm/dL Hct (39.0-53.0) % MCV (80.0-100.0) fL MCH (25.0-35.0) pg MCHC (31.0-37.0) g/dL RDW (11.5-15.5) % Plt Count (150-450) k/uL Neutrophils % % Lymphocytes % % Monocytes % % Eosinophils % % Basophils % % Neutrophils # (1.3-7.7) k/uL Lymphocytes # (1.0-4.8) k/uL Monocytes # (0-1.0) k/uL Eosinophils # (0-0.7) k/uL Basophils # (0-0.2) k/uL Hypochromasia Anisocytosis Macrocytosis Sodium (137-145) mmol/L Potassium (3.5-5.1) mmol/L Chloride (98-107) mmol/L Carbon Dioxide (22-30) mmol/L Anion Gap mmol/L BUN (9-20) mg/dL Creatinine (0.66-1.25) mg/dL Est GFR (CKD-EPI)AfAm (>60 ml/min/1.73 sqM) Est GFR (CKD-EPI)NonAf (>60 ml/min/1.73 sqM) Glucose (74-99) mg/dL Plasma Lactic Acid Balaji 1.6 (0.7-2.0) mmol/L Calcium (8.4-10.2) mg/dL Total Bilirubin (0.2-1.3) mg/dL AST (17-59) U/L ALT (4-49) U/L Alkaline Phosphatase (38-126) U/L Total Protein (6.3-8.2) g/dL Albumin (3.5-5.0) g/dL Amylase (30-110) U/L Lipase (23-300) U/L Urine Color Urine Appearance (Clear) Urine pH (5.0-8.0) Ur Specific [place] (1.001-1.035) Urine Protein (Negative) Urine Glucose (UA) (Negative) Urine Ketones (Negative) Urine Blood (Negative) Urine Nitrite (Negative) Urine Bilirubin (Negative) Urine Urobilinogen (<2.0) mg/dL Ur Leukocyte Esterase (Negative) Urine RBC (0-5) /hpf Urine WBC (0-5) /hpf Ur Squamous Epith Cells (0-4) /hpf Amorphous Sediment (None) /hpf Hyaline Casts (0-2) /lpf Urine Mucus (None) /hpf - Radiology Data CT abdomen and pelvis with contrast was obtained. Report was reviewed in its en tirety. Impression by Dr. Huynh shows changes of hepatic cirrhosis and portal venous hypertension. Spinal megaly. Moderate ascites. Gastroesophageal varices. Nonobstructing left renal calculus. Mild small bowel ileus. There is reduction of the left inguinal hernia compared to old exam. There is decrease in the dilated small bowel compared to old exam. (Allison Wise) Disposition Is patient prescribed a controlled substance at d/c from ED?: No Time of Disposition: 22:47 <Allison Wise - Last Filed: 11/17/19 23:09> <Digna Arriaza - Last Filed: 11/19/19 02:29> Clinical Impression: Abdominal pain, Hematuria Disposition: HOME SELF-CARE Condition: Good Instructions (If sedation given, give patient instructions): Hematuria (ED), Abdominal Pain (ED) Additional Instructions: Follow up with your abdominal surgeon as soon as possible. Follow up with urology as soon as possible for further evaluation of blood in your urine. Referrals: James Meza Jr, [Primary Care Provider] - 1-2 days
[2019-11-17 21:10] LABS: Anisocytosis Slight; Basophils # (A) 0.1 k/uL (0-0.2); Basophils % (A) 2 %; Eosinophils # (A) 0.3 k/uL (0-0.7); Eosinophils % (A) 5 %; HCT 32.6 % (39.0-53.0); HGB 10.4 gm/dL (13.0-17.5); Hypochromasia Moderate; Lymphocytes # (A) 1.1 k/uL (1.0-4.8); Lymphocytes % (A) 17 %; MCH 30.7 pg (25.0-35.0); MCHC 31.8 g/dL (31.0-37.0); MCV 96.4 fL (80.0-100.0); Macrocytosis Slight; Mean Platelet Volume 10.1; Monocytes # (A) 0.6 k/uL (0-1.0); Monocytes % (A) 10 %; Neutrophils # (A) 3.8 k/uL (1.3-7.7); Neutrophils % (A) 62 %; RBC 3.38 m/uL (4.30-5.90); RDW 17.7 % (11.5-15.5); WBC 6.1 k/uL (3.8-10.6)
[2019-11-17 21:14] LABS: Platelet Count 148 k/uL (150-450)
[2019-11-17 21:18] LABS: Amorphous Sediment,Urine Occasional /hpf; Appearance,Urine Cloudy (Clear); Bilirubin,Urine Negative (Negative); Blood,Urine Large (Negative); Color,Urine Red; Glucose,Urine (UA) Negative (Negative); Hyaline Casts,Urine 38 /lpf (0-2); Ketones,Urine Trace (Negative); Leukocyte Esterase,Urine Trace (Negative); Mucus,Urine Few /hpf; Nitrite,Urine Negative (Negative); Protein,Urine 1+ (Negative); RBC,Urine >182 /hpf (0-5); Specific Gravity,Urine 1.033 (1.001-1.035); Squamous Epithelial Cell,Urine 1 /hpf (0-4); WBC,Urine 9 /hpf (0-5)
[2019-11-17 21:25] LABS: ALT 17 U/L (4-49); AST 34 U/L (17-59); African American GFR (CKD) >90 (>60 ml/min/1.73 sqM); Alkaline Phosphatase 80 U/L (38-126); Amylase 49 U/L (30-110); Anion Gap 7 mmol/L; Blood Urea Nitrogen 12 mg/dL (9-20); Carbon Dioxide 18 mmol/L (22-30); Chloride 115 mmol/L (98-107); Glucose 114 mg/dL (74-99); Non-African American GFR(CKD) >90 (>60 ml/min/1.73 sqM); Potassium 3.8 mmol/L (3.5-5.1); Sodium 140 mmol/L (137-145); Total Bilirubin 0.6 mg/dL (0.2-1.3); Total Protein 5.9 g/dL (6.3-8.2)
--- NOTE | 2019-11-17 22:05 | CT ---
EXAMINATION TYPE: CT abdomen pelvis w con DATE OF EXAM: 11/17/2019 COMPARISON: 07/26/2019 HISTORY: Umbilical abdominal pain. CT DLP: 1311.9 mGycm Automated exposure control for dose reduction was used. CONTRAST: Performed with IV Contrast, patient injected with 100ml mL of Isovue 300. Images were obtained from the diaphragm to the floor the pelvis with IV contrast. Lung bases are clear of infiltrate. There is no pleural effusion. Heart size is normal. There are mul tiple varicose veins at the gastroesophageal junction. The liver is irregular consistent with cirrhos is. Spleen is enlarged and measures 17.5 cm. The pancreas is intact. There are clips from cholecystec anderson. There is moderate abdominal ascites. Bladder distends smoothly. There is no evidence of free air. The re is no sign of a bowel obstruction. Appendix is not seen. There is no sign of thickened appendix. T he proximal small bowel bowel measures up to 3 cm. I do not suspect obstruction. Kidneys have normal size and contour. There is no hydronephrosis. There is 3 mm calculus lower pole l eft kidney. Ureters are not dilated. There is previous surgery in the distal small bowel. The lumbar vertebra have normal alignment. Disc spaces are normal. Bony pelvis appears intact. IMPRESSION: Changes of hepatic cirrhosis and portal venous hypertension. Splenomegaly. Moderate ascites. Gastroes ophageal varices. Nonobstructing left renal calculus. Mild small bowel ileus. There is reduction of the left inguinal hernia compared to old exam. There is decrease in the dilated small bowel compared to old exam.
[2019-11-17 23:36] VITALS: BP 127/70; PULSE 74; RESP 18
== END 2019-11-17 23:35 | disposition home or self-care (01) ==
LOC: EC 19:59
DX: R10.33 Periumbilical pain (principal); R31.9 Hematuria, unspecified; R11.0 Nausea; N20.0 Calculus of kidney; R18.8 Other ascites; F17.200 Nicotine dependence, unspecified, uncomplicated; Z79.899 Other long term (current) drug therapy; Z90.89 Acquired absence of other organs; Z90.49 Acquired absence of other specified parts of digestive tract
CPT/HCPCS: 36415; 80053; 82150; 83605; 83690; 85025; 81001; 74177; 99284; 96374; 96375; J2405; J1170; Q9967

== ENCOUNTER 2019-11-21 14:20 | Emergency (ER) | payer OTHER ==
[2019-11-21 14:26] VITALS: TEMP 98
[2019-11-21] MEDS ORDERED: SODIUM CHLORIDE 0.9% 500 ML 500 ML IV STA (14:57)
[2019-11-21] MEDS ORDERED: MORPHINE SULFATE 4 MG/ML SYRINGE IV STA ×2 (14:57→14:59)
--- NOTE | 2019-11-21 14:59 | ED ---
General Adult HPI - General Chief complaint: Back Pain/Injury Stated complaint: Kidney Stone Time Seen by Provider: 11/21/19 14:45 Source: patient, RN notes reviewed, old records reviewed Mode of arrival: ambulatory Limitations: no limitations - History of Present Illness Initial comments: 44-year-old male patient past history symptoms for alcohol abuse, liver cirrhosi, renal calculi, abdominal hernia presents to ED with chief complaint of right flank pain. Patient reports that he has been having pain in his right flank for the last few hours. Reports that it feels identical to kidney stones he has had in the past. Denies any other complaints. Systemic: Pt denies fatigue, fever/chills, rash. Pt denies weakness, night sweats, weight loss. Neuro: Pt denies headache, visual disturbances, syncope or pre-syncope. HEENT: Pt denies ocular discharge or irritation, otalgia, rhinorrhea, pharyngitis or notable lymphadenopathy. Cardiopulmonary: Pt denies chest pain, SOB, heart palpitations, dyspnea on exertion. Abdominal/GI: Pt denies abdominal pain, n/v/d. : Pt denies dysuria, burning w/ urination, frequency/urgency. Denies new onset urinary or bowel incontinence. MSK: Pt denies myalgia, loss of strength or function in extremities. Neuro: Pt denies new onset weakness, paresthesias. - Related Data Home Medications Medication Instructions Recorded Confirmed Multivitamins, Thera [Multivitamin 1 tab PO DAILY 12/14/18 11/21/19 (formulary)] Furosemide [Lasix] 40 mg PO DAILY 02/03/19 11/21/19 Folic Acid 1 mg PO DAILY 10/28/19 11/21/19 Lactulose [Cephulac] 30 gm PO BID 11/21/19 11/21/19 Pantoprazole [Protonix] 40 mg PO BID 11/21/19 11/21/19 Potassium Chloride [Klor-Con 20] 20 meq PO DAILY 11/21/19 11/21/19 Previous Rx's Medication Instructions Recorded Thiamine [Vitamin B-1] 100 mg PO DAILY #30 tablet 09/03/17 Magnesium Oxide [Mag-Ox] 400 mg PO BID #60 tab 11/01/19 Nicotine 21Mg/24Hr Patch [Habitrol] 1 patch TRANSDERM DAILY #30 patch 06/17/20 Tamsulosin [Flomax] 0.4 mg PO DAILY 5 Days #5 cap 11/21/19 Allergies Allergy/AdvReac Type Severity Reaction Status Date / Time No Known Allergies Allergy Verified 11/21/19 16:54 Review of Systems ROS Statement: Those systems with pertinent positive or pertinent negative responses have been documented in the HPI. ROS Other: All systems not noted in ROS Statement are negative. Past Medical History Past Medical History: Asthma, GI Bleed, Liver Disease, Pneumonia, Renal Disease, Skin Disorder Additional Past Medical History / Comment(s): Liver cirrhosis, portal HTN, abdominal ascities, pancreatitis, upper and lower GI bleeds, bleeding ulcers, esophageal varicies-banded, thrombocytopemia, chronic anemia, gallstones, nephrolithiasis/hematuria, L inguinal hernia, psoriasis; paracentesis, hernia, left foot injury (2 months ago) History of Any Multi-Drug Resistant Organisms: MRSA Date of last positivie culture/infection: 12/09/13 MDRO Source:: Right first finger Past Surgical History: Appendectomy, Cholecystectomy, Hernia Repair, Orthopedic Surgery Additional Past Surgical History / Comment(s): EGDs/varicies banding/colonoscopy, paracentesis, right hand tendon repair, right knee arthroscopy, cystoscopy for kidney stone removal, right hand ring finger surgery. surgery for umbilical hernia, Past Anesthesia/Blood Transfusion Reactions: Previous Problems w/ Anesthesia, Motion Sickness Additional Past Anesthesia/Blood Transfusion Reaction / Comment(s): Woke up during scope procedure. Past Psychological History: Anxiety, Bipolar, Depression, PTSD Smoking Status: Current every day smoker Past Alcohol Use History: Abuse, Daily Past Drug Use History: Cocaine, Heroin, Marijuana - Past Family History Mother Family Medical History: No Reported History Additional Family Medical History / Comment(s): Mother has health issues from a MVA-pt did not elaborate. Father Family Medical History: Vascular Disorder Additional Family Medical History / Comment(s): Prostate issues grandpa. Brain aneurysm father. General Exam - General Exam Comments Initial Comments: Constitutional: NAD, AOX3, Pt has pleasant affect. HEENT: NC/AT, trachea midline. External ears appear normal, without discharge. Mucous membranes moist. EOM intact. There is no scleral icterus. No pallor noted. Cardiopulmonary: RRR, no murmurs, rubs or gallops, no JVD noted. Lungs CTAB in anterior and posterior silva. No peripheral edema. Abdominal exam: Abdomen soft and non-distended. Abdomen non-tender to palpation and right mid flank region. No skin changes. No other areas of tenderness. Bowel sounds active in LLQ. No hepatosplenomegaly. No ecchymosis Neuro: CN II-XII grossly intact. No nuchal rigidity. No raccon eyes, no henson sign. MSK: Full active ROM in upper and lower extremities, 5/5 stregnth. Limitations: no limitations Course Vital Signs 11/21/19 14:24 Temperature 98.0 F Pulse Rate 95 Respiratory 16 Rate Blood Pressure 122/66 O2 Sat by Pulse 97 Oximetry Medical Decision Making - Medical Decision Making 44-year-old male patient comes to ED for evaluation of right flank pain. Patient reports that it feels identical to his kidney stones in the past. Laboratory investigations are unremarkable. Urine does display some blood. KUB displayed nonacute abdomen. Patient declining advanced imaging. Pt is feeling much improved. Patient will be treated for ureteral calculi. Will follow up with primary care provider and urologist tomorrow. Return to ER if condition worsens. Case discussed with Dr. Arriaza. - Lab Data Result diagrams: 11/21/19 15:11 11/21/19 16:30 Lab Results 11/21/19 11/21/19 11/21/19 Range/Units 15:11 15:11 16:30 WBC 7.3 (3.8-10.6) k/uL RBC 3.89 L (4.30-5.90) m/uL Hgb 11.4 L (13.0-17.5) gm/dL Hct 37.3 L (39.0-53.0) % MCV 95.9 (80.0-100.0) fL MCH 29.3 (25.0-35.0) pg MCHC 30.6 L (31.0-37.0) g/dL RDW 18.0 H (11.5-15.5) % Plt Count 178 (150-450) k/uL Neutrophils % 63 % Lymphocytes % 16 % Monocytes % 11 % Eosinophils % 4 % Basophils % 2 % Neutrophils # 4.6 (1.3-7.7) k/uL Lymphocytes # 1.2 (1.0-4.8) k/uL Monocytes # 0.8 (0-1.0) k/uL Eosinophils # 0.3 (0-0.7) k/uL Basophils # 0.2 (0-0.2) k/uL Hypochromasia Moderate Anisocytosis Slight Macrocytosis Slight Sodium 141 (137-145) mmol/L Potassium 4.0 (3.5-5.1) mmol/L Chloride 116 H (98-107) mmol/L Carbon Dioxide 16 L (22-30) mmol/L Anion Gap 9 mmol/L BUN 12 (9-20) mg/dL Creatinine 0.56 L (0.66-1.25) mg/dL Est GFR (CKD-EPI)AfAm >90 (>60 ml/min/1.73 sqM) Est GFR (CKD-EPI)NonAf >90 (>60 ml/min/1.73 sqM) Glucose 108 H (74-99) mg/dL Calcium 9.1 (8.4-10.2) mg/dL Total Bilirubin 0.9 (0.2-1.3) mg/dL AST 39 (17-59) U/L ALT 17 (4-49) U/L Alkaline Phosphatase 82 (38-126) U/L Total Protein 6.2 L (6.3-8.2) g/dL Albumin 3.1 L (3.5-5.0) g/dL Lipase 299 (23-300) U/L Urine Color Yellow Urine Appearance Clear (Clear) Urine pH 7.0 (5.0-8.0) Ur Specific [place] 1.007 (1.001-1.035) Urine Protein Negative (Negative) Urine Glucose (UA) Negative (Negative) Urine Ketones Negative (Negative) Urine Blood Trace H (Negative) Urine Nitrite Negative (Negative) Urine Bilirubin Negative (Negative) Urine Urobilinogen <2.0 (<2.0) mg/dL Ur Leukocyte Esterase Negative (Negative) Urine RBC 2 (0-5) /hpf Urine WBC 1 (0-5) /hpf Urine Mucus Rare H (None) /hpf Disposition Clinical Impression: Flank pain Disposition: HOME SELF-CARE Condition: Stable Instructions (If sedation given, give patient instructions): Flank Pain (ED) Additional Instructions: Follow-up with primary care provider tomorrow. Follow-up with urologist tomorrow. Take medications as directed. Return to ER if condition worsens. Prescriptions: Tamsulosin [Flomax] 0.4 mg PO DAILY 5 Days #5 cap Is patient prescribed a controlled substance at d/c from ED?: No Referrals: James Meza Jr, DO [Primary Care Provider] - 1-2 days Oscar Upton MD [STAFF PHYSICIAN] - 1-2 days
--- NOTE | 2019-11-21 15:24 | XR ---
EXAMINATION TYPE: XR KUB DATE OF EXAM: 11/21/2019 COMPARISON: NONE HISTORY: Pain TECHNIQUE: One view abdominal series FINDINGS: The osseous structures are intact. The bowel gas pattern is nonspecific. Lung bases are clear. Surg ical clips in the right upper quadrant. Hypertrophic change of the acetabulum IMPRESSION: 1. Nonspecific abdomen.
[2019-11-21 15:33] LABS: Anisocytosis Slight; Basophils # (A) 0.2 k/uL (0-0.2); Basophils % (A) 2 %; Eosinophils # (A) 0.3 k/uL (0-0.7); Eosinophils % (A) 4 %; HCT 37.3 % (39.0-53.0); HGB 11.4 gm/dL (13.0-17.5); Hypochromasia Moderate; Lymphocytes # (A) 1.2 k/uL (1.0-4.8); Lymphocytes % (A) 16 %; MCH 29.3 pg (25.0-35.0); MCHC 30.6 g/dL (31.0-37.0); MCV 95.9 fL (80.0-100.0); Macrocytosis Slight; Mean Platelet Volume 9.5; Monocytes # (A) 0.8 k/uL (0-1.0); Monocytes % (A) 11 %; Neutrophils # (A) 4.6 k/uL (1.3-7.7); Neutrophils % (A) 63 %; Platelet Count 178 k/uL (150-450); RBC 3.89 m/uL (4.30-5.90); WBC 7.3 k/uL (3.8-10.6)
[2019-11-21 16:22] LABS: Appearance,Urine Clear (Clear); Bilirubin,Urine Negative (Negative); Blood,Urine Trace (Negative); Color,Urine Yellow; Glucose,Urine (UA) Negative (Negative); Ketones,Urine Negative (Negative); Leukocyte Esterase,Urine Negative (Negative); Mucus,Urine Rare /hpf; Nitrite,Urine Negative (Negative); Protein,Urine Negative (Negative); RBC,Urine 2 /hpf (0-5); Specific Gravity,Urine 1.007 (1.001-1.035); Urobilinogen,Urine <2.0 mg/dL (<2.0); WBC,Urine 1 /hpf (0-5)
[2019-11-21 17:10] LABS: ALT 17 U/L (4-49); AST 39 U/L (17-59); African American GFR (CKD) >90 (>60 ml/min/1.73 sqM); Albumin 3.1 g/dL (3.5-5.0); Alkaline Phosphatase 82 U/L (38-126); Anion Gap 9 mmol/L; Blood Urea Nitrogen 12 mg/dL (9-20); Calcium 9.1 mg/dL (8.4-10.2); Carbon Dioxide 16 mmol/L (22-30); Chloride 116 mmol/L (98-107); Glucose 108 mg/dL (74-99); Non-African American GFR(CKD) >90 (>60 ml/min/1.73 sqM); Sodium 141 mmol/L (137-145); Total Bilirubin 0.9 mg/dL (0.2-1.3); Total Protein 6.2 g/dL (6.3-8.2)
[2019-11-21 17:54] VITALS: BP 122/87; PULSE 87; RESP 20
== END 2019-11-21 17:54 | disposition home or self-care (01) ==
LOC: EC 14:20
DX: R10.9 Unspecified abdominal pain (principal); F17.200 Nicotine dependence, unspecified, uncomplicated; Z86.14 Personal history of Methicillin resistant Staphylococcus aureus infection; Z90.49 Acquired absence of other specified parts of digestive tract
CPT/HCPCS: 36415; 80053; 83690; 85025; 81001; 74018; 99284; 96374; 96361 ×3; J2270

== ENCOUNTER 2019-12-08 21:05 | Emergency (ER) | payer OTHER ==
--- NOTE | 2019-12-08 21:38 | ED ---
General Adult HPI - General Chief complaint: GI Bleed Stated complaint: Blood in Stool Time Seen by Provider: 12/08/19 21:22 Source: patient Mode of arrival: ambulatory Limitations: no limitations - History of Present Illness Initial comments: 44-year-old male patient presents to the emergency department today for evaluation of abdominal pain and bloating. He also had an episode of GI bleeding. States he had a bowel movement and there was bright red blood in the toilet. Patient states he is having stabbing pains to his mid lower abdomen. States he had emergency bowel surgery with 2 inches of bowel removed. States he developed a hernia to the area, but has been unable to follow up with his primary care physician. Patient states over the last month his abdomen from 39 inch girth to 49 inches. States he is feeling mildly nauseated today, but den ies vomiting. Patient states he is having some pressure in his chest and feels like he cannot take a deep breath. States that he has had paracentesis in the past due to ascites from cirrhosis. States he gets the procedure a couple times per year. States it has been months since his last one. Denies any cough or congestion. Denies any fever or chills. He is currently at [facility] for alcohol rehab. Patient denies any recent rash, cough, chest pain, diarrhea, constipation, back pain, numbness, tingling, dizziness, weakness, hematuria, dysuria, urinary urgency, urinary frequency, headache, visual changes, or any other complaints. - Related Data Home Medications Medication Instructions Recorded Confirmed Folic Acid 1 mg PO DAILY@59910/28/19 12/08/19 Acetaminophen [Tylenol Arthritis] 650 mg PO Q4H PRN 12/08/19 12/08/19 Chlorpheniramine Maleate 4 mg PO Q4H PRN 12/08/19 12/08/19 Ibuprofen [Motrin] 600 mg PO Q6H PRN 12/08/19 12/08/19 Magnesium Oxide [Mag-Ox] 400 mg PO DAILY@59912/08/19 12/08/19 Ondansetron HCl [Zofran] 8 mg PO Q6H PRN 12/08/19 12/08/19 Zofran 2mg/Ml Dilution Im 4 mg IM Q6H PRN 12/08/19 12/08/19 busPIRone HCl [Buspar] 10 mg PO TID PRN 12/08/19 12/08/19 cloNIDine HCL [Catapres] 0.1 mg PO Q4H PRN 12/08/19 12/08/19 traZODone HCL [Desyrel] 50 - 150 mg PO HS PRN 12/08/19 12/08/19 Allergies Allergy/AdvReac Type Severity Reaction Status Date / Time No Known Allergies Allergy Verified 12/08/19 21:45 Review of Systems ROS Statement: Those systems with pertinent positive or pertinent negative responses have been documented in the HPI. ROS Other: All systems not noted in ROS Statement are negative. Past Medical History Past Medical History: Asthma, GI Bleed, Liver Disease, Pneumonia, Renal Disease, Skin Disorder Additional Past Medical History / Comment(s): Liver cirrhosis, portal HTN, abdominal ascities, pancreatitis, upper and lower GI bleeds, bleeding ulcers, esophageal varicies-banded, thrombocytopemia, chronic anemia, gallstones, nephrolithiasis/hematuria, L inguinal hernia, psoriasis; paracentesis, hernia, l eft foot injury (2 months ago) History of Any Multi-Drug Resistant Organisms: MRSA Date of last positivie culture/infection: 12/09/13 MDRO Source:: Right first finger Past Surgical History: Appendectomy, Cholecystectomy, Hernia Repair, Orthopedic Surgery Additional Past Surgical History / Comment(s): EGDs/varicies banding/colonoscopy, paracentesis, right hand tendon repair, right knee arthroscopy, cystoscopy for kidney stone removal, right hand ring finger surgery. surgery for umbilical hernia, Past Anesthesia/Blood Transfusion Reactions: Previous Problems w/ Anesthesia, Motion Sickness Additional Past Anesthesia/Blood Transfusion Reaction / Comment(s): Woke up during scope procedure. Past Psychological History: Anxiety, Bipolar, Depression, PTSD Smoking Status: Current every day smoker Past Alcohol Use History: Abuse, Daily Past Drug Use History: Cocaine, Heroin, Marijuana - Past Family History Mother Family Medical History: No Reported History Additional Family Medical History / Comment(s): Mother has health issues from a MVA-pt did not elaborate. Father Family Medical History: Vascular Disorder Additional Family Medical History / Comment(s): Prostate issues grandpa. Brain aneurysm father. General Exam Limitations: no limitations General appearance: alert, in no apparent distress, other (This is a well- developed, well-nourished adult male patient in no acute distress. Vital signs upon presentation are temperature 98.1F, pulse 76, respirations 18, blood pressure 145/79, pulse ox 100% on room air.) Eye exam: Present: normal appearance, PERRL, EOMI. Absent: scleral icterus, conjunctival injection, periorbital swelling ENT exam: Present: normal exam, normal oropharynx, mucous membranes moist Respiratory exam: Present: normal lung sounds bilaterally. Absent: respiratory distress, wheezes, rales, rhonchi, stridor Cardiovascular Exam: Present: regular rate, normal rhythm, normal heart sounds. Absent: systolic murmur, diastolic murmur, rubs, gallop, clicks GI/Abdominal exam: Present: soft, tenderness (Mid lower abdomen), normal bowel sounds. Absent: distended, guarding, rebound, rigid Neurological exam: Present: alert, oriented X3, CN II-XII intact Psychiatric exam: Present: normal affect, normal mood Skin exam: Present: warm, dry, intact, normal color. Absent: rash Course Vital Signs 12/08/19 12/09/19 21:17 00:26 Temperature 98.1 F 98.4 F Pulse Rate 76 69 Respiratory 18 16 Rate Blood Pressure 145/79 139/75 O2 Sat by Pulse 100 99 Oximetry EKG Findings - EKG Comments: EKG Findings:: EKG obtained at 2156 shows normal sinus rhythm with a ventricular rate of 67, LA interval 160, QRS duration 88, QT 404, QTC 426. No evidence of ST elevation or depression Medical Decision Making - Medical Decision Making 44-year-old male patient presents to the emergency department today for evaluation of abdominal pain and distention. Patient is also reporting having a bloody bowel movement this morning. Physical examination did reveal soft abdomen with tenderness over the umbilical region. This is near an incision from a hernia surgery 3-4 months ago. Labs reviewed and are unremarkable. Patient symptoms did improve with pain medication. Lactic acid was negative. Patient did have computed tomography scan of the beginning of November for the same symptoms. He has not yet follow-up with his general surgeon. He does have ascites from chronic liver disease. Again abdomen is soft, he does not appear to be in any respiratory distress. Vital signs are satisfactory. He'll be discharged to follow-up with his general surgeon for further evaluation as soon as possible. Instructed to follow-up with his GI specialist for further evaluation to discuss paracentesis. Return parameters were discussed in detail. He verbalizes understanding and agrees with this plan. - Lab Data Result diagrams: 12/08/19 21:50 12/08/19 21:50 Lab Results 12/08/19 12/08/19 12/08/19 Range/Units 21:50 21:50 21:50 WBC 5.2 (3.8-10.6) k/uL RBC 3.62 L (4.30-5.90) m/uL Hgb 10.8 L (13.0-17.5) gm/dL Hct 34.4 L (39.0-53.0) % MCV 95.2 (80.0-100.0) fL MCH 30.0 (25.0-35.0) pg MCHC 31.5 (31.0-37.0) g/dL RDW 18.1 H (11.5-15.5) % Plt Count 104 L (150-450) k/uL Neutrophils % 62 % Lymphocytes % 17 % Monocytes % 12 % Eosinophils % 4 % Basophils % 1 % Neutrophils # 3.2 (1.3-7.7) k/uL Lymphocytes # 0.9 L (1.0-4.8) k/uL Monocytes # 0.6 (0-1.0) k/uL Eosinophils # 0.2 (0-0.7) k/uL Basophils # 0.1 (0-0.2) k/uL Hypochromasia Slight Anisocytosis Slight Macrocytosis Slight APTT (22.0-30.0) sec Sodium 138 (137-145) mmol/L Potassium 4.5 (3.5-5.1) mmol/L Chloride 110 H (98-107) mmol/L Carbon Dioxide 21 L (22-30) mmol/L Anion Gap 7 mmol/L BUN 12 (9-20) mg/dL Creatinine 0.54 L (0.66-1.25) mg/dL Est GFR (CKD-EPI)AfAm >90 (>60 ml/min/1.73 sqM) Est GFR (CKD-EPI)NonAf >90 (>60 ml/min/1.73 sqM) Glucose 90 (74-99) mg/dL Plasma Lactic Acid Balaji 1.0 (0.7-2.0) mmol/L Calcium 8.9 (8.4-10.2) mg/dL Magnesium 1.7 (1.6-2.3) mg/dL Total Bilirubin 1.0 (0.2-1.3) mg/dL AST 48 (17-59) U/L ALT 16 (4-49) U/L Alkaline Phosphatase 85 (38-126) U/L Troponin I (0.000-0.034) ng/mL Total Protein 6.7 (6.3-8.2) g/dL Albumin 3.6 (3.5-5.0) g/dL Stool Occult Blood (Negative) 12/08/19 12/08/19 12/08/19 Range/Units 21:50 22:33 22:49 WBC (3.8-10.6) k/uL RBC (4.30-5.90) m/uL Hgb (13.0-17.5) gm/dL Hct (39.0-53.0) % MCV (80.0-100.0) fL MCH (25.0-35.0) pg MCHC (31.0-37.0) g/dL RDW (11.5-15.5) % Plt Count (150-450) k/uL Neutrophils % % Lymphocytes % % Monocytes % % Eosinophils % % Basophils % % Neutrophils # (1.3-7.7) k/uL Lymphocytes # (1.0-4.8) k/uL Monocytes # (0-1.0) k/uL Eosinophils # (0-0.7) k/uL Basophils # (0-0.2) k/uL Hypochromasia Anisocytosis Macrocytosis APTT 26.7 (22.0-30.0) sec Sodium (137-145) mmol/L Potassium (3.5-5.1) mmol/L Chloride (98-107) mmol/L Carbon Dioxide (22-30) mmol/L Anion Gap mmol/L BUN (9-20) mg/dL Creatinine (0.66-1.25) mg/dL Est GFR (CKD-EPI)AfAm (>60 ml/min/1.73 sqM) Est GFR (CKD-EPI)NonAf (>60 ml/min/1.73 sqM) Glucose (74-99) mg/dL Plasma Lactic Acid Balaji (0.7-2.0) mmol/L Calcium (8.4-10.2) mg/dL Magnesium (1.6-2.3) mg/dL Total Bilirubin (0.2-1.3) mg/dL AST (17-59) U/L ALT (4-49) U/L Alkaline Phosphatase (38-126) U/L Troponin I <0.012 (0.000-0.034) ng/mL Total Protein (6.3-8.2) g/dL Albumin (3.5-5.0) g/dL Stool Occult Blood Negative (Negative) Disposition Clinical Impression: Ascites, Abdominal pain Disposition: HOME SELF-CARE Condition: Good Instructions (If sedation given, give patient instructions): Ascites (ED), Abdominal Pain (ED) Additional Instructions: Consider restricting fluids and decreasing your salt intake. Follow-up with your GI specialist for further evaluation as soon as possible. Follow-up with her general surgeon for further evaluation as soon as possible. Return to the emergency department immediately for any new, worsening, or concerning symptoms. Is patient prescribed a controlled substance at d/c from ED?: No Referrals: James Meza Jr, [Primary Care Provider] - 1-2 days Time of Disposition: 23:45
[2019-12-08 22:10] LABS: Anisocytosis Slight; Basophils # (A) 0.1 k/uL (0-0.2); Basophils % (A) 1 %; Eosinophils # (A) 0.2 k/uL (0-0.7); Eosinophils % (A) 4 %; HCT 34.4 % (39.0-53.0); HGB 10.8 gm/dL (13.0-17.5); Hypochromasia Slight; Lymphocytes # (A) 0.9 k/uL (1.0-4.8); Lymphocytes % (A) 17 %; MCHC 31.5 g/dL (31.0-37.0); MCV 95.2 fL (80.0-100.0); Macrocytosis Slight; Mean Platelet Volume 9.6; Monocytes # (A) 0.6 k/uL (0-1.0); Monocytes % (A) 12 %; Neutrophils # (A) 3.2 k/uL (1.3-7.7); Neutrophils % (A) 62 %; Platelet Count 104 k/uL (150-450); RBC 3.62 m/uL (4.30-5.90); RDW 18.1 % (11.5-15.5); WBC 5.2 k/uL (3.8-10.6)
[2019-12-08 22:14] LABS: ALT 16 U/L (4-49); AST 48 U/L (17-59); African American GFR (CKD) >90 (>60 ml/min/1.73 sqM); Albumin 3.6 g/dL (3.5-5.0); Alkaline Phosphatase 85 U/L (38-126); Anion Gap 7 mmol/L; Blood Urea Nitrogen 12 mg/dL (9-20); Calcium 8.9 mg/dL (8.4-10.2); Carbon Dioxide 21 mmol/L (22-30); Chloride 110 mmol/L (98-107); Glucose 90 mg/dL (74-99); Magnesium 1.7 mg/dL (1.6-2.3); Non-African American GFR(CKD) >90 (>60 ml/min/1.73 sqM); Potassium 4.5 mmol/L (3.5-5.1); Sodium 138 mmol/L (137-145); Total Protein 6.7 g/dL (6.3-8.2)
[2019-12-08] MEDS ORDERED: KETOROLAC 30 MG/ML 1 ML VIAL IM STA (22:22)
[2019-12-08] MEDS ORDERED: ONDANSETRON 4 MG/2 ML VIAL IVP STA (22:34)
[2019-12-08] MEDS ORDERED: MORPHINE SULFATE 4 MG/ML SYRINGE IVP STA ×2 (22:34→23:59)
[2019-12-09 00:28] VITALS: BP 139/75; PULSE 69; RESP 16; TEMP 98.4
== END 2019-12-09 01:10 | disposition home or self-care (01) ==
LOC: EC 21:05
DX: R18.8 Other ascites (principal); R10.30 Lower abdominal pain, unspecified; D64.9 Anemia, unspecified; F41.9 Anxiety disorder, unspecified; F31.9 Bipolar disorder, unspecified; F17.200 Nicotine dependence, unspecified, uncomplicated; Z79.899 Other long term (current) drug therapy; Z87.442 Personal history of urinary calculi; Z98.890 Other specified postprocedural states; Z90.89 Acquired absence of other organs; Z90.49 Acquired absence of other specified parts of digestive tract
CPT/HCPCS: 36415; 93005; 80053; 83605; 83735; 84484; 85025; 85730; 82272; 99285; 96374; 96376; 96375; J2270; J2405

== ENCOUNTER → 2019-12-20 | Outpatient (CLI) | payer OTHER | END | disposition home or self-care (01) | LOC: LABWHC1 11:11 | PROVIDERS: ATTEND Family Medicine | DX: R18.8 Other ascites (principal) | CPT/HCPCS: 36415; 84134 ==

== ENCOUNTER 2019-12-26 04:40 | Inpatient (IN) | payer OTHER ==
--- NOTE | 2019-12-26 04:58 | ED ---
Abdominal Pain HPI - General Stated Complaint: Abd Pain Time Seen by Provider: 12/26/19 04:44 Source: patient Mode of arrival: ambulatory Limitations: no limitations - History of Present Illness Initial Comments: Kenisha is a 44-year-old alcoholic male who presents the emergency department today via private vehicle for evaluation of abdominal distention and discomfort. Patient was previously followed with gastroenterology for decompensated liver failure secondary to alcohol abuse. He's had paracentesis in the past. He is scheduled to have one later this week contacted GI and asked to have it moved up but could not tolerate the discomfort. He doesn't may he's been drinking alcohol throughout the day today he reports that this was to self medicate. Denies any fevers or chills. - Related Data Home Medications Medication Instructions Recorded Confirmed Folic Acid 1 mg PO DAILY@0600 10/28/19 12/25/19 Magnesium Oxide [Mag-Ox] 400 mg PO DAILY@0600 12/08/19 12/25/19 Ondansetron HCl [Zofran] 8 mg PO Q6H PRN 12/08/19 12/25/19 busPIRone HCl [Buspar] 10 mg PO TID PRN 12/08/19 12/25/19 Allergies Allergy/AdvReac Type Severity Reaction Status Date / Time No Known Allergies Allergy Verified 12/26/19 04:52 Review of Systems ROS Statement: Those systems with pertinent positive or pertinent negative responses have been documented in the HPI. ROS Other: All systems not noted in ROS Statement are negative. Past Medical History Past Medical History: Asthma, GI Bleed, Liver Disease, Pneumonia, Renal Disease, Skin Disorder Additional Past Medical History / Comment(s): Liver cirrhosis, portal HTN, abdominal ascities, pancreatitis, upper and lower GI bleeds, bleeding ulcers, esophageal varicies-banded, thrombocytopemia, chronic anemia, gallstones, nephrolithiasis/hematuria, L inguinal hernia, psoriasis; paracentesis, umbilical hernia, left foot injury (2 months ago) History of Any Multi-Drug Resistant Organisms: MRSA Date of last positivie culture/infection: 12/09/13 MDRO Source:: Right first finger Past Surgical History: Appendectomy, Cholecystectomy, Hernia Repair, Orthopedic Surgery Additional Past Surgical History / Comment(s): EGDs/varicies banding/colonoscopy, paracentesis, right hand tendon repair, right knee arthroscopy, cystoscopy for kidney stone removal, right hand ring finger surgery. surgery for umbilical hernia, Past Anesthesia/Blood Transfusion Reactions: Previous Problems w/ Anesthesia, Motion Sickness Additional Past Anesthesia/Blood Transfusion Reaction / Comment(s): Woke up during scope procedure. Past Psychological History: Anxiety, Bipolar, Depression, PTSD Smoking Status: Current every day smoker Past Alcohol Use History: Abuse, Daily Past Drug Use History: Cocaine, Heroin, Marijuana - Past Family History Mother Family Medical History: No Reported History Additional Family Medical History / Comment(s): Mother has health issues from a MVA-pt did not elaborate. Father Family Medical History: Vascular Disorder Additional Family Medical History / Comment(s): Prostate issues grandpa. Brain aneurysm father. General Exam - General Exam Comments Initial Comments: Physical Exam GENERAL: Chronically ill-appearing, alcoholic HENT: Normocephalic, Atraumatic. EYES: PERRL, EOMI Scleral icterus noted PULMONARY: Unlabored respirations. CARDIOVASCULAR: RRR Warm and well perfused extremities ABDOMEN: Firm distention, fluid wave palpable SKIN: Jaundice : Deferred NEUROLOGIC: Alert and oriented Normal speech Normal gait MUSCULOSKELETAL: Moving all extremities with no apparent injury PSYCHIATRIC: No SI/HI Limitations: no limitations Course Vital Signs 12/26/19 12/26/19 04:48 06:22 Temperature 98.1 F Pulse Rate 109 H 104 H Respiratory 22 18 Rate Blood Pressure 138/82 128/66 O2 Sat by Pulse 95 97 Oximetry Medical Decision Making - Medical Decision Making The patient was seen and evaluated vital signs were reviewed, patient's mildly tachycardic no other significant abnormalities On exam the patient has significant ascites, discomfort from the distention no peritonitis Labs ordered in anticipation of likely need for paracentesis Labs at baseline for patient, bilirubin mildly elevated, lactic mildly elevated, anemia at baseline, platelets improved Patient care was discussed with Dr Meza who agrees with plan for obs for paracentesis - Lab Data Result diagrams: 12/26/19 05:22 12/26/19 05:22 Lab Results 12/26/19 12/26/19 12/26/19 Range/Units 05:22 05:22 05:22 WBC 9.1 (3.8-10.6) k/uL RBC 3.51 L (4.30-5.90) m/uL Hgb 10.5 L (13.0-17.5) gm/dL Hct 33.0 L (39.0-53.0) % MCV 93.9 (80.0-100.0) fL MCH 30.0 (25.0-35.0) pg MCHC 31.9 (31.0-37.0) g/dL RDW 18.0 H (11.5-15.5) % Plt Count 167 D (150-450) k/uL Neutrophils % 67 % Lymphocytes % 13 % Monocytes % 11 % Eosinophils % 4 % Basophils % 1 % Neutrophils # 6.1 (1.3-7.7) k/uL Lymphocytes # 1.2 (1.0-4.8) k/uL Monocytes # 1.0 (0-1.0) k/uL Eosinophils # 0.4 (0-0.7) k/uL Basophils # 0.1 (0-0.2) k/uL Hypochromasia Slight Anisocytosis Slight PT 12.5 H (9.0-12.0) sec INR 1.2 H (<1.2) APTT 23.1 (22.0-30.0) sec Sodium 140 (137-145) mmol/L Potassium 3.8 (3.5-5.1) mmol/L Chloride 113 H (98-107) mmol/L Carbon Dioxide 16 L (22-30) mmol/L Anion Gap 11 mmol/L BUN 18 (9-20) mg/dL Creatinine 0.75 (0.66-1.25) mg/dL Est GFR (CKD-EPI)AfAm >90 (>60 ml/min/1.73 sqM) Est GFR (CKD-EPI)NonAf >90 (>60 ml/min/1.73 sqM) Glucose 81 (74-99) mg/dL Plasma Lactic Acid Balaji (0.7-2.0) mmol/L Calcium 9.3 (8.4-10.2) mg/dL Total Bilirubin 2.0 H (0.2-1.3) mg/dL AST 78 H (17-59) U/L ALT 22 (4-49) U/L Alkaline Phosphatase 101 (38-126) U/L Ammonia (<30) umol/L Total Protein 6.9 (6.3-8.2) g/dL Albumin 3.6 (3.5-5.0) g/dL Lipase 157 (23-300) U/L Serum Alcohol 98 mg/dL Blood Type Blood Type Recheck Bld Type Recheck Status Antibody Screen Spec Expiration Date 12/26/19 12/26/19 Range/Units 05:22 05:23 WBC (3.8-10.6) k/uL RBC (4.30-5.90) m/uL Hgb (13.0-17.5) gm/dL Hct (39.0-53.0) % MCV (80.0-100.0) fL MCH (25.0-35.0) pg MCHC (31.0-37.0) g/dL RDW (11.5-15.5) % Plt Count (150-450) k/uL Neutrophils % % Lymphocytes % % Monocytes % % Eosinophils % % Basophils % % Neutrophils # (1.3-7.7) k/uL Lymphocytes # (1.0-4.8) k/uL Monocytes # (0-1.0) k/uL Eosinophils # (0-0.7) k/uL Basophils # (0-0.2) k/uL Hypochromasia Anisocytosis PT (9.0-12.0) sec INR (<1.2) APTT (22.0-30.0) sec Sodium (137-145) mmol/L Potassium (3.5-5.1) mmol/L Chloride (98-107) mmol/L Carbon Dioxide (22-30) mmol/L Anion Gap mmol/L BUN (9-20) mg/dL Creatinine (0.66-1.25) mg/dL Est GFR (CKD-EPI)AfAm (>60 ml/min/1.73 sqM) Est GFR (CKD-EPI)NonAf (>60 ml/min/1.73 sqM) Glucose (74-99) mg/dL Plasma Lactic Acid Balaji 2.5 H* (0.7-2.0) mmol/L Calcium (8.4-10.2) mg/dL Total Bilirubin (0.2-1.3) mg/dL AST (17-59) U/L ALT (4-49) U/L Alkaline Phosphatase (38-126) U/L Ammonia 45 H (<30) umol/L Total Protein (6.3-8.2) g/dL Albumin (3.5-5.0) g/dL Lipase (23-300) U/L Serum Alcohol mg/dL Blood Type A Negative Blood Type Recheck A Neg Bld Type Recheck Status No Antibody Screen NEGATIVE Spec Expiration Date 12/29/2019 2323 - EKG Data -: EKG Interpreted by Me EKG shows normal: sinus rhythm Rate: normal EKG Comments: EKG was obtained due to complaint of tachycardia on arrival EKG was obtained at 5:35 AM, rate is 92 rhythm is sinus normal axis, normal intervals, MS 138, care is 90, QTC [address] elevations or depressions no evidence of acute ischemia or infarction. Disposition Clinical Impression: Alcoholic cirrhosis of liver with ascites, Alcohol intoxication in active alcoholic, Thrombocytopenia Disposition: ADMITTED IP TO THIS HOSP Condition: Serious Is patient prescribed a controlled substance at d/c from ED?: No Referrals: James Meza Jr, [Primary Care Provider] - 1-2 days
[2019-12-26 05:39] LABS: Anisocytosis Slight; Basophils # (A) 0.1 k/uL (0-0.2); Basophils % (A) 1 %; Eosinophils # (A) 0.4 k/uL (0-0.7); Eosinophils % (A) 4 %; HGB 10.5 gm/dL (13.0-17.5); Hypochromasia Slight; Lymphocytes # (A) 1.2 k/uL (1.0-4.8); Lymphocytes % (A) 13 %; MCHC 31.9 g/dL (31.0-37.0); MCV 93.9 fL (80.0-100.0); Mean Platelet Volume 9.1; Monocytes % (A) 11 %; Neutrophils # (A) 6.1 k/uL (1.3-7.7); Neutrophils % (A) 67 %; RBC 3.51 m/uL (4.30-5.90); WBC 9.1 k/uL (3.8-10.6)
[2019-12-26 05:40] LABS: Platelet Count 167 k/uL (150-450)
[2019-12-26 05:49] LABS: INR 1.2 (<1.2); Partial Thromboplastin Time 23.1 sec (22.0-30.0); Prothrombin Time 12.5 sec (9.0-12.0)
[2019-12-26 05:52] LABS: ALT 22 U/L (4-49); AST 78 U/L (17-59); African American GFR (CKD) >90 (>60 ml/min/1.73 sqM); Albumin 3.6 g/dL (3.5-5.0); Alkaline Phosphatase 101 U/L (38-126); Anion Gap 11 mmol/L; Blood Urea Nitrogen 18 mg/dL (9-20); Calcium 9.3 mg/dL (8.4-10.2); Carbon Dioxide 16 mmol/L (22-30); Chloride 113 mmol/L (98-107); Glucose 81 mg/dL (74-99); Non-African American GFR(CKD) >90 (>60 ml/min/1.73 sqM); Potassium 3.8 mmol/L (3.5-5.1); Sodium 140 mmol/L (137-145); Total Protein 6.9 g/dL (6.3-8.2)
[2019-12-26 06:00] LABS: Lactic Acid, Venous 2.5 mmol/L (0.7-2.0)
[2019-12-26 06:01] LABS: Alcohol 98 mg/dL
[2019-12-26] MEDS ORDERED: NALOXONE 0.4 MG/ML 1 ML VIAL IV PRN (06:44)
[2019-12-26 06:56] LABS: Appearance,Urine Cloudy (Clear); Bilirubin,Urine Negative (Negative); Blood,Urine Large (Negative); Color,Urine Dark Brown; Glucose,Urine (UA) Negative (Negative); Hyaline Casts,Urine 27 /lpf (0-2); Ketones,Urine 1+ (Negative); Leukocyte Esterase,Urine Trace (Negative); Mucus,Urine Many /hpf; Nitrite,Urine Negative (Negative); PH, Urine 5.5 (5.0-8.0); Protein,Urine 1+ (Negative); RBC,Urine >182 /hpf (0-5); Specific Gravity,Urine 1.025 (1.001-1.035); WBC,Urine 12 /hpf (0-5)
--- NOTE | 2019-12-26 13:09 | P.HPIM ---
History of Present Illness H&P Date: 12/26/19 Chief Complaint: Abdominal pain 41-year-old male well-known to my office , known history of alcoholism known history of end-stage alcoholic liver disease significant ascites secondary to alcoholic liver disease. Has had multiple paracentesis in the past, was scheduled for paracentesis later this week. Doesn't think he can wait abdominal pain is too uncomfortable. Patient had been in rehab and had not been drinking for approximately 6 weeks. However admits to drinking yesterday to self medicate Review of Systems Constitutional: Reports as per HPI Ears, nose, mouth and throat: Reports as per HPI Cardiovascular: Reports as per HPI Respiratory: Reports as per HPI Gastrointestinal: Reports abdominal pain (Significant ascites) Genitourinary: Reports as per HPI Musculoskeletal: Reports as per HPI Integumentary: Reports as per HPI Neurological: Reports as per HPI Psychiatric: Reports as per HPI Endocrine: Reports as per HPI Past Medical History Past Medical History: Asthma, GI Bleed, Liver Disease, Pneumonia, Renal Disease, Skin Disorder Additional Past Medical History / Comment(s): Liver cirrhosis, portal HTN, abdominal ascities, pancreatitis, upper and lower GI bleeds, bleeding ulcers, esophageal varicies-banded, thrombocytopemia, chronic anemia, gallstones, nephrolithiasis/hematuria, L inguinal hernia, psoriasis; paracentesis, umbilical hernia, left foot injury History of Any Multi-Drug Resistant Organisms: MRSA Date of last positivie culture/infection: 12/09/13 MDRO Source:: Right first finger Past Surgical History: Appendectomy, Cholecystectomy, Hernia Repair, Orthopedic Surgery Additional Past Surgical History / Comment(s): EGDs/varicies banding/colonoscopy, paracentesis, right hand tendon repair, right knee arthroscopy, cystoscopy for kidney stone removal, right hand ring finger surgery. surgery for umbilical hernia, Past Anesthesia/Blood Transfusion Reactions: Previous Problems w/ Anesthesia, Motion Sickness Additional Past Anesthesia/Blood Transfusion Reaction / Comment(s): Woke up during scope procedure. Past Psychological History: Anxiety, Bipolar, Depression, PTSD Additional Psychological History / Comment(s): lives by his self. He uses no assistive device. He does not drive, uses bus system. Smoking Status: Current every day smoker Past Alcohol Use History: Abuse, Daily Additional Past Alcohol Use History / Comment(s): Pt states he started smoking in 1984- states he is back up to a ppd. he staes he quit drinking 4 months ago and recently drank a fifth las tnight due to his pain. Past Drug Use History: Cocaine, Heroin, Marijuana Additional Drug Use History / Comment(s): pt stats he last smoked marijuana on 10/28/19 and last did cocaine on 10/25/19. pt states he took a pill from a friend a couple days ago and it had cocaine and heroin in it. - Past Family History Mother Family Medical History: No Reported History Additional Family Medical History / Comment(s): Mother has health issues from a MVA-pt did not elaborate. Father Family Medical History: Vascular Disorder Additional Family Medical History / Comment(s): Prostate issues grandpa. Brain aneurysm father. Medications and Allergies Home Medications Medication Instructions Recorded Confirmed Type Folic Acid 1 mg PO DAILY 10/28/19 12/26/19 History Magnesium Oxide [Mag-Ox] 400 mg PO DAILY 12/08/19 12/26/19 History busPIRone HCl [Buspar] 10 mg PO TID PRN 12/08/19 12/26/19 History Albuterol Sulfate [Ventolin HFA] 1 - 2 puff INHALATION RT-Q6H PRN 12/26/1904/05 History Amoxicillin 875 mg PO Q12HR 12/26/19 12/26/19 History Furosemide [Lasix] 40 mg PO DAILY 12/26/19 12/26/19 History Hydrocodone/Acetaminophen [[place] 1 tab PO TID PRN 12/26/19 12/26/19 History 7.5-325] Lactulose 30 gm PO DAILY PRN 12/26/19 12/26/19 History Pantoprazole [Protonix] 40 mg PO DAILY 12/26/19 12/26/19 History Thiamine [Vitamin B-1] 100 mg PO DAILY 12/26/19 12/26/19 History Allergies Allergy/AdvReac Type Severity Reaction Status Date / Time No Known Allergies Allergy Verified 12/26/19 08:25 Physical Exam Osteopathic Statement: *. No significant issues noted on an osteopathic s tructural exam other than those noted in the History and Physical/Consult. Vitals: Vital Signs Temp Pulse Pulse Resp BP BP Pulse Ox 12/26/19 12:47 97.7 F 77 16 129/76 95 12/26/19 07:26 98.0 F 99 14 121/71 98 12/26/19 06:22 104 H 18 128/66 97 12/26/19 04:48 98.1 F 109 H 22 138/82 95 Intake and Output 12/25/19 12/26/19 12/26/19 22:59 06:59 14:59 Other: Voiding Method Toilet Weight 89.811 kg 89.811 kg General: [Patient awake, alert and oriented times 3. Patient in no acute distress.] HEENT: [PERRL. EOMI. No pharyngeal erythema or exudate.] Neck: [No adenopathy.] Cardiac: [Heart regular in rate and rhythm. No S3. No S4. No clicks, rubs. No murmur.] Lungs: [Clear to auscultation bilaterally.] Abdomen: [No mass. No organomegaly. Bowel sounds presnt and normoactive in all 4 quadrants. Abdominal distention, positive fluid wave Extremes: [No edema no cyanosis no claudication normal pulses] : Normal male genitalia Musculoskeletal: [No joint erythema, edema or tenderness.] Skin: [No rash.] Neurologic: [No lateralizing deficits. CN II - XII grossly intact.] Lymphatic: [No adenopathy.] Results CBC & Chem 7: 12/26/19 05:22 12/26/19 05:22 Labs: Abnormal Lab Results - Last 24 Hours (Table) 12/26/19 12/26/19 12/26/19 Range/Units 05:22 05:22 05:22 RBC 3.51 L (4.30-5.90) m/uL Hgb 10.5 L (13.0-17.5) gm/dL Hct 33.0 L (39.0-53.0) % RDW 18.0 H (11.5-15.5) % PT 12.5 H (9.0-12.0) sec INR 1.2 H (<1.2) Chloride 113 H (98-107) mmol/L Carbon Dioxide 16 L (22-30) mmol/L Plasma Lactic Acid Balaji (0.7-2.0) mmol/L Total Bilirubin 2.0 H (0.2-1.3) mg/dL AST 78 H (17-59) U/L Ammonia (<30) umol/L Urine Protein (Negative) Urine Ketones (Negative) Urine Blood (Negative) Ur Leukocyte Esterase (Negative) Urine RBC (0-5) /hpf Urine WBC (0-5) /hpf Hyaline Casts (0-2) /lpf Urine Mucus (None) /hpf 12/26/19 12/26/19 Range/Units 05:22 05:22 RBC (4.30-5.90) m/uL Hgb (13.0-17.5) gm/dL Hct (39.0-53.0) % RDW (11.5-15.5) % PT (9.0-12.0) sec INR (<1.2) Chloride (98-107) mmol/L Carbon Dioxide (22-30) mmol/L Plasma Lactic Acid Balaji 2.5 H* (0.7-2.0) mmol/L Total Bilirubin (0.2-1.3) mg/dL AST (17-59) U/L Ammonia 45 H (<30) umol/L Urine Protein 1+ H (Negative) Urine Ketones 1+ H (Negative) Urine Blood Large H (Negative) Ur Leukocyte Esterase Trace H (Negative) Urine RBC >182 H (0-5) /hpf Urine WBC 12 H (0-5) /hpf Hyaline Casts 27 H (0-2) /lpf Urine Mucus Many H (None) /hpf Thrombosis Risk Factor Assmnt - Choose All That Apply Any of the Below Risk Factors Present?: Yes Each Factor Represents 1 point: Age 41-60 years, Obesity (BMI >25) Other Risk Factors: No Other congenital or acquired thrombophilia - If yes, enter type in comment: No Thrombosis Risk Factor Assessment Total Risk Factor Score: 2 Thrombosis Risk Factor Assessment Level: Low Risk Assessment and Plan (1) Alcoholic cirrhosis of liver with ascites Current Visit: Yes Status: Acute Code(s): K70.31 - ALCOHOLIC CIRRHOSIS OF LIVER WITH ASCITES SNOMED Code(s): 533341909 (2) Abdominal pain Current Visit: No Status: Acute Code(s): R10.9 - UNSPECIFIED ABDOMINAL PAIN SNOMED Code(s): 74772201 (3) Alcohol abuse Current Visit: No Status: Acute Code(s): F10.10 - ALCOHOL ABUSE, UNCOMPLICATED SNOMED Code(s): 69250222 (4) Alcoholic liver disease Current Visit: No Status: Acute Code(s): K70.9 - ALCOHOLIC LIVER DISEASE, UNSPECIFIED SNOMED Code(s): 14845161 (5) Anemia Current Visit: No Status: Acute Code(s): D64.9 - ANEMIA, UNSPECIFIED SNOMED Code(s): 260188429 (6) Ascites Current Visit: No Status: Acute Code(s): R18.8 - OTHER ASCITES SNOMED Code(s): 882026425 (7) Chronic alcoholic hepatitis Current Visit: No Status: Acute Code(s): K70.10 - ALCOHOLIC HEPATITIS WITHOUT ASCITES SNOMED Code(s): 365357646 (8) Chronic alcoholic liver disease Current Visit: No Status: Acute Code(s): K70.9 - ALCOHOLIC LIVER DISEASE, UNSPECIFIED SNOMED Code(s): 113820577 (9) Chronic anemia Current Visit: No Status: Acute Code(s): D64.9 - ANEMIA, UNSPECIFIED SNOMED Code(s): 609576323 (10) Cirrhosis Current Visit: No Status: Acute Code(s): K74.60 - UNSPECIFIED CIRRHOSIS OF LIVER SNOMED Code(s): 26263231 (11) Cirrhosis of liver with ascites Current Visit: No Status: Acute Code(s): K74.60 - UNSPECIFIED CIRRHOSIS OF LIVER; R18.8 - OTHER ASCITES SNOMED Code(s): 87363801 Plan: Abdominal pain secondary to ascites Consultation with GI for potential paracentesis Time with Patient: Greater than 30
[2019-12-26] MEDS ORDERED: LORazepam 2 MG/ML INJ IV PRN ×3 (13:18)
[2019-12-26] MEDS ORDERED: HYDROmorphone 0.5 MG/0.5 ML SYRINGE IM PRN (13:19)
[2019-12-26] MEDS: HYDROmorphone 0.5 MG/0.5 ML SYRINGE IVP PRN ×4 (13:48→23:00)
[2019-12-26] MEDS: THIAMINE 100 MG TAB PO SCH (16:26)
[2019-12-26] MEDS: HYDROcodone/APAP 7.5-325MG 1 EACH TAB PO PRN (19:24)
--- NOTE | 2019-12-26 22:11 | P.CONS ---
History of Present Illness - Reason for Consult Consult date: 12/26/19 Ascites, decompensated alcoholic cirrhosis Requesting physician: James Meza Jr - Chief Complaint Abdominal distension - History of Present Illness 44-year-old male with multiple medical comorbidities including decompensated alcoholic cirrhosis, history of esophageal varices and portal hypertensive gastropathy, ascites and pancreatitis who presented to the hospital due to complaints of abdominal distention. The patient has had periods of abstinence in the past and reports that he got approximately 6 weeks and no alcohol however drank prior to current presentation due to pain from abdominal distention. The patient has been hospitalized on numerous occasions for treatment of encephalopathy, GI bleed, and ascites. He was recently seen in the outpatient setting and continued on diuretic therapy with plan for follow-up in 1 month. He also had a paracentesis scheduled for this coming Wednesday. However the patient reports that the abdominal bloating and distention continued and was worsened by a large infraumbilical hernia which caused quite a bit of pain. Last endoscopic evaluation in 06/2019 with findings of esophageal ulcer from esophageal banding performed previously as well as portal hypertensive gastropathy. Currently he does report taking Lasix and lactulose therapy at home. Laboratory evaluation on presentation significant for WBC 9.1, hemoglobin 10.5, platelet count 167,000, total bilirubin is 2.0, alkaline phosphatase 101, AST 78 and ALT 22 with positive serum testing for alcohol presentation. Review of Systems REVIEW OF SYSTEMS: CONSTITUTIONAL: Denies any fevers, chills, weight change or fatigue. CARDIOVASCULAR: Denies any chest pain, palpitations high or low blood pressures RESPIRATORY: Denies any shortness of breath, hemoptysis or cough. GENITOURINARY: No dysuria or hematuria. MUSCULOSKELETAL: No weakness reported. SKIN: Denies any new rashes or lesions, jaundice or pallor. PSYCHIATRIC: Denies any depression or anxiety, has a known history of alcohol abuse. NEUROLOGY: Denies headache, denies any new focal deficits. EARS/NOSE/THROAT: No recent hearing change, congestion, nasal discharge or sore throat. EYES: No pain in eyes, discharge or change in vision. GASTROINTESTINAL: As per HPI. Past Medical History Past Medical History: Asthma, GI Bleed, Liver Disease, Pneumonia, Renal Disease, Skin Disorder Additional Past Medical History / Comment(s): Liver cirrhosis, portal HTN, abdominal ascities, pancreatitis, upper and lower GI bleeds, bleeding ulcers, esophageal varicies-banded, thrombocytopemia, chronic anemia, gallstones, nephrolithiasis/hematuria, L inguinal hernia, psoriasis; paracentesis, umbilical hernia, left foot injury History of Any Multi-Drug Resistant Organisms: MRSA Year Discovered:: 12/09/13 MDRO Source:: Right first finger Past Surgical History: Appendectomy, Cholecystectomy, Hernia Repair, Orthopedic Surgery Additional Past Surgical History / Comment(s): EGDs/varicies banding/colonoscopy, paracentesis, right hand tendon repair, right knee arthroscopy, cystoscopy for kidney stone removal, right hand ring finger surgery. surgery for umbilical hernia, Past Anesthesia/Blood Transfusion Reactions: Previous Problems w/ Anesthesia, Motion Sickness Additional Past Anesthesia/Blood Transfusion Reaction / Comm: Woke up during scope procedure. Past Psychological History: Anxiety, Bipolar, Depression, PTSD Additional Psychological History / Comment(s): lives by his self. He uses no assistive device. He does not drive, uses bus system. Smoking Status: Current every day smoker Past Alcohol Use History: Abuse, Daily Additional Past Alcohol Use History / Comment(s): Pt states he started smoking in 1984- states he is back up to a ppd. he staes he quit drinking 4 months ago and recently drank a fifth las tnight due to his pain. Past Drug Use History: Cocaine, Heroin, Marijuana Additional Drug Use History / Comment(s): pt stats he last smoked marijuana on 10/28/19 and last did cocaine on 10/25/19. pt states he took a pill from a friend a couple days ago and it had cocaine and heroin in it. - Past Family History Mother Family Medical History: No Reported History Additional Family Medical History / Comment(s): Mother has health issues from a MVA-pt did not elaborate. Father Family Medical History: Vascular Disorder Additional Family Medical History / Comment(s): Prostate issues grandpa. Brain aneurysm father. Medications and Allergies Home Medications Medication Instructions Recorded Confirmed Type Folic Acid 1 mg PO DAILY 10/28/19 12/26/19 History Magnesium Oxide [Mag-Ox] 400 mg PO DAILY 12/08/19 12/26/19 History busPIRone HCl [Buspar] 10 mg PO TID PRN 12/08/19 12/26/19 History Albuterol Sulfate [Ventolin HFA] 1 - 2 puff INHALATION RT-Q6H PRN 12/26/19 12/26/19 History Amoxicillin 875 mg PO Q12HR 12/26/19 12/26/19 History Furosemide [Lasix] 40 mg PO DAILY 12/26/19 12/26/19 History Hydrocodone/Acetaminophen [[place] 1 tab PO TID PRN 12/26/19 12/26/19 History 7.5-325] Lactulose 30 gm PO DAILY PRN 12/26/19 12/26/19 History Pantoprazole [Protonix] 40 mg PO DAILY 12/26/19 12/26/19 History Thiamine [Vitamin B-1] 100 mg PO DAILY 12/26/19 12/26/19 History Allergies Allergy/AdvReac Type Severity Reaction Status Date / Time No Known Allergies Allergy Verified 12/26/19 08:25 Physical Exam Vitals: Vital Signs Temp Pulse Pulse Resp BP BP Pulse Ox 12/26/19 12:47 97.7 F 77 16 129/76 95 12/26/19 07:26 98.0 F 99 14 121/71 98 12/26/19 06:22 104 H 18 128/66 97 12/26/19 04:48 98.1 F 109 H 22 138/82 95 Intake and Output 12/25/19 12/26/19 12/26/19 22:59 06:59 14:59 Other: Voiding Method Toilet Weight 89.811 kg 89.811 kg On physical examination, patient appears comfortable in no apparent distress. HEAD: Normocephalic, atraumatic. EYES: No scleral icterus. No conjunctival injection. MOUTH: No lesions, tongue midline. NECK: Trachea midline, no gross abnormalities. CHEST: Clear to auscultation with no wheezing or rhonchi appreciated. HEART: Regular rate and rhythm. ABDOMEN: Soft, obese, moderately distended with a large infraumbilical hernia. Bowel sounds are positive. No organomegaly. No guarding or rigidity. EXTREMITIES: Bilateral pedal edema. SKIN: No rashes, no jaundice. NEUROLOGIC: Alert and oriented x3. No focal deficits. Results CBC & Chem 7: 12/26/19 05:22 12/26/19 05:22 Labs: Abnormal Lab Results - Last 24 Hours (Table) 12/26/19 12/26/19 12/26/19 Range/Units 05:22 05:22 05:22 RBC 3.51 L (4.30-5.90) m/uL Hgb 10.5 L (13.0-17.5) gm/dL Hct 33.0 L (39.0-53.0) % RDW 18.0 H (11.5-15.5) % PT 12.5 H (9.0-12.0) sec INR 1.2 H (<1.2) Chloride 113 H (98-107) mmol/L Carbon Dioxide 16 L (22-30) mmol/L Plasma Lactic Acid Balaji (0.7-2.0) mmol/L Total Bilirubin 2.0 H (0.2-1.3) mg/dL AST 78 H (17-59) U/L Ammonia (<30) umol/L Urine Protein (Negative) Urine Ketones (Negative) Urine Blood (Negative) Ur Leukocyte Esterase (Negative) Urine RBC (0-5) /hpf Urine WBC (0-5) /hpf Hyaline Casts (0-2) /lpf Urine Mucus (None) /hpf 12/26/19 12/26/19 Range/Units 05:22 05:22 RBC (4.30-5.90) m/uL Hgb (13.0-17.5) gm/dL Hct (39.0-53.0) % RDW (11.5-15.5) % PT (9.0-12.0) sec INR (<1.2) Chloride (98-107) mmol/L Carbon Dioxide (22-30) mmol/L Plasma Lactic Acid Balaji 2.5 H* (0.7-2.0) mmol/L Total Bilirubin (0.2-1.3) mg/dL AST (17-59) U/L Ammonia 45 H (<30) umol/L Urine Protein 1+ H (Negative) Urine Ketones 1+ H (Negative) Urine Blood Large H (Negative) Ur Leukocyte Esterase Trace H (Negative) Urine RBC >182 H (0-5) /hpf Urine WBC 12 H (0-5) /hpf Hyaline Casts 27 H (0-2) /lpf Urine Mucus Many H (None) /hpf Assessment and Plan (1) Alcoholic cirrhosis of liver with ascites Narrative/Plan: 44-year-old male with a known history of alcoholic cirrhosis with ascites, portal hypertension, encephalopathy and prior admissions for GI bleed with esophageal variceal banding presented back to the hospital with complaints of worsening abdominal distention and pain. Patient was scheduled for ultrasound abdomen with paracentesis on Wednesday however reports that the abdominal pain continued to worsen and was exacerbated by upper respiratory tract infection and coughing as well as a large infraumbilical hernia. Current Visit: Yes Status: Acute Code(s): K70.31 - ALCOHOLIC CIRRHOSIS OF LIVER WITH ASCITES SNOMED Code(s): 487056897 (2) Abdominal pain Current Visit: No Status: Acute Code(s): R10.9 - UNSPECIFIED ABDOMINAL PAIN SNOMED Code(s): 85169678 (3) Ascites Current Visit: No Status: Acute Code(s): R18.8 - OTHER ASCITES SNOMED Code(s): 410749384 (4) Hx of esophageal varices Current Visit: No Status: Acute Code(s): Z87.19 - PERSONAL HISTORY OF OTHER DISEASES OF THE DIGESTIVE SYSTEM SNOMED Code(s): 03163843477286034 Plan: Supportive care Ultrasound guided paracentesis by interventional radiology service Continue monitor CBC, BMP, LFTs Alcohol abstinence Okay for sodium restricted diet Aldactone and Lasix therapy initiated Lactulose 3 times a day added Patient will need follow-up with surgical service after discharge for possible repair of infraumbilical hernia, however he has been instructed that no intervention will be performed until he is abstinent from alcohol Thank you for allowing us to participate in the care of the patient
[2019-12-26] MEDS: LACTULOSE 20 GM/30 ML CUP PO SCH (23:00)
[2019-12-27] MEDS: HYDROmorphone 0.5 MG/0.5 ML SYRINGE IVP PRN ×6 (05:37→21:57)
[2019-12-27] MEDS: THIAMINE 100 MG TAB PO SCH ×2 (06:51→17:13)
[2019-12-27] MEDS: FUROSEMIDE 40 MG TAB PO SCH (08:22)
[2019-12-27] MEDS: SPIRONOLACTONE 25 MG TAB PO SCH (08:22)
[2019-12-27] MEDS: LACTULOSE 20 GM/30 ML CUP PO SCH ×3 (08:22→19:55)
--- NOTE | 2019-12-27 15:04 | P.PN ---
Subjective Progress Note Date: 12/27/19 Principal diagnosis: End-stage alcoholic liver disease, gross ascites Patient is awake alert oriented 3 vital signs are stable. Mr. heath is complaining of mild abdominal pressure secondary to ascites we are currently waiting on paracentesis it appears patient probably will not be going for the procedure until tomorrow. Current pain management appears to be adequate will continue as ordered Objective - Vital Signs Vital signs: Vital Signs Temp 97.8 F 12/27/19 09:00 Pulse 74 12/27/19 09:00 Resp 18 12/27/19 09:00 BP 113/53 12/27/19 09:00 Pulse Ox 97 12/27/19 09:00 Intake & Output 12/26/19 12/27/19 12/27/19 18:59 06:59 18:59 Intake Total 450 0 Output Total 275 Balance 450 -275 Weight 89.811 kg Intake: Oral 450 0 Output: Urine 275 Other: Voiding Method Toilet Toilet Toilet # Voids 2 2 # Bowel Movements 1 - Exam General: [Patient awake, alert and oriented times 3. Patient in no acute distress.] HEENT: [PERRL. EOMI. No pharyngeal erythema or exudate.] Neck: [No adenopathy.] Cardiac: [Heart regular in rate and rhythm. No S3. No S4. No clicks, rubs. No murmur.] Lungs: [Clear to auscultation bilaterally.] Abdomen: Enlarged liver, gross ascites active fluid wave. Bowel sounds presnt and normoactive in all 4 quadrants.] Extremes: [No edema no cyanosis no claudication normal pulses] : Normal male genitalia Musculoskeletal: [No joint erythema, edema or tenderness.] Skin: [No rash.] Neurologic: [No lateralizing deficits. CN II - XII grossly intact.] Lymphatic: [No adenopathy.] - Labs CBC & Chem 7: 12/26/19 05:22 12/26/19 05:22 Labs: Microbiology - Last 24 Hours (Table) 12/26/19 05:28 Blood Culture - Preliminary Blood No Growth after 24 hours Assessment and Plan (1) Alcoholic cirrhosis of liver with ascites Current Visit: Yes Status: Acute Code(s): K70.31 - ALCOHOLIC CIRRHOSIS OF LIVER WITH ASCITES SNOMED Code(s): 720418766 (2) Abdominal pain Current Visit: No Status: Acute Code(s): R10.9 - UNSPECIFIED ABDOMINAL PAIN SNOMED Code(s): 59107594 (3) Alcohol abuse Current Visit: No Status: Acute Code(s): F10.10 - ALCOHOL ABUSE, UNCOMPLICATED SNOMED Code(s): 21859390 (4) Alcoholic liver disease Current Visit: No Status: Acute Code(s): K70.9 - ALCOHOLIC LIVER DISEASE, UNSPECIFIED SNOMED Code(s): 52634932 (5) Anemia Current Visit: No Status: Acute Code(s): D64.9 - ANEMIA, UNSPECIFIED SNOMED Code(s): 703148081 (6) Ascites Current Visit: No Status: Acute Code(s): R18.8 - OTHER ASCITES SNOMED Code(s): 607794280 (7) Chronic alcoholic hepatitis Current Visit: No Status: Acute Code(s): K70.10 - ALCOHOLIC HEPATITIS WITHOUT ASCITES SNOMED Code(s): 939785087 (8) Chronic alcoholic liver disease Current Visit: No Status: Acute Code(s): K70.9 - ALCOHOLIC LIVER DISEASE, UNSPECIFIED SNOMED Code(s): 558316955 (9) Chronic anemia Current Visit: No Status: Acute Code(s): D64.9 - ANEMIA, UNSPECIFIED SNOMED Code(s): 051110923 (10) Cirrhosis Current Visit: No Status: Acute Code(s): K74.60 - UNSPECIFIED CIRRHOSIS OF LIVER SNOMED Code(s): 69530083 (11) Cirrhosis of liver with ascites Current Visit: No Status: Acute Code(s): K74.60 - UNSPECIFIED CIRRHOSIS OF LIVER; R18.8 - OTHER ASCITES SNOMED Code(s): 44763107 Plan: Abdominal pain secondary to ascites Consultation with GI for potential paracentesis Waiting on GI patient probably will not have paracentesis until tomorrow We will continue to follow closely
[2019-12-27] MEDS: NICOTINE 21MG/24HR PATCH TRANSDERM SCH (17:13)
--- NOTE | 2019-12-27 21:12 | P.PN ---
Subjective Progress Note Date: 12/27/19 Principal diagnosis: Decompensated alcoholic cirrhosis, ascites, encephalopathy Patient lying in bed tolerating diet. Interventional radiology was unable to perform paracentesis today and will likely be performed tomorrow. Objective - Vital Signs Vital signs: Vital Signs Temp 97.8 F 12/27/19 09:00 Pulse 74 12/27/19 09:00 Resp 18 12/27/19 09:00 BP 113/53 12/27/19 09:00 Pulse Ox 97 12/27/19 09:00 Intake & Output 12/26/19 12/27/19 12/27/19 18:59 06:59 18:59 Intake Total 450 0 Output Total 275 Balance 450 -275 Weight 89.811 kg Intake: Oral 450 0 Output: Urine 275 Other: Voiding Method Toilet Toilet Toilet # Voids 2 2 # Bowel Movements 1 - Exam On physical examination, patient appears comfortable in no apparent distress. HEAD: Normocephalic, atraumatic. EYES: No scleral icterus. No conjunctival injection. MOUTH: No lesions, tongue midline. NECK: Trachea midline, no gross abnormalities. ABDOMEN: Soft, obese, moderately distended with large infraumbilical hernia tender to palpation. Bowel sounds are positive. No organomegaly. No guarding or rigidity. EXTREMITIES: No pedal edema. SKIN: No rashes, no jaundice. NEUROLOGIC: Alert and oriented x3. No focal deficits. - Labs CBC & Chem 7: 12/26/19 05:22 12/26/19 05:22 Labs: Microbiology - Last 24 Hours (Table) 12/26/19 05:28 Blood Culture - Preliminary Blood No Growth after 24 hours Assessment and Plan (1) Alcoholic cirrhosis of liver with ascites Narrative/Plan: 44-year-old male with a known history of alcoholic cirrhosis with ascites, portal hypertension, encephalopathy and prior admissions for GI bleed with esophageal variceal banding presented back to the hospital with complaints of worsening abdominal distention and pain. Patient was scheduled for ultrasound abdomen with paracentesis on Wednesday however reports that the abdominal pain continued to worsen and was exacerbated by upper respiratory tract infection and coughing as well as a large infraumbilical hernia. Current Visit: Yes Status: Acute Code(s): K70.31 - ALCOHOLIC CIRRHOSIS OF LIVER WITH ASCITES SNOMED Code(s): 506516911 (2) Abdominal pain Current Visit: No Status: Acute Code(s): R10.9 - UNSPECIFIED ABDOMINAL PAIN SNOMED Code(s): 84082590 (3) Ascites Current Visit: No Status: Acute Code(s): R18.8 - OTHER ASCITES SNOMED Code(s): 222509171 (4) Hx of esophageal varices Current Visit: No Status: Acute Code(s): Z87.19 - PERSONAL HISTORY OF OTHER DISEASES OF THE DIGESTIVE SYSTEM SNOMED Code(s): 40572052444971903 Plan: Supportive care Ultrasound guided paracentesis by interventional radiology service, likely will not be performed until tomorrow Continue monitor CBC, BMP, LFTs Alcohol abstinence Okay for sodium restricted diet Aldactone and Lasix therapy initiated Lactulose 3 times a day added Patient will need follow-up with surgical service after discharge for possible repair of infraumbilical hernia, however he has been instructed that no intervention will be performed until he is abstinent from alcohol Thank you for allowing us to participate in the care of the patient
[2019-12-27] MEDS: HYDROcodone/APAP 7.5-325MG 1 EACH TAB PO PRN (23:19)
[2019-12-28] MEDS: HYDROmorphone 0.5 MG/0.5 ML SYRINGE IVP PRN ×4 (00:33→09:47)
[2019-12-28] MEDS: THIAMINE 100 MG TAB PO SCH (06:12)
[2019-12-28 08:02] VITALS: TEMP 97.5
[2019-12-28 09:07] VITALS: RESP 16
[2019-12-28] MEDS: FUROSEMIDE 40 MG TAB PO SCH (09:46)
[2019-12-28] MEDS: NICOTINE 21MG/24HR PATCH TRANSDERM SCH (09:46)
[2019-12-28] MEDS: SPIRONOLACTONE 25 MG TAB PO SCH (09:46)
[2019-12-28] MEDS: LACTULOSE 20 GM/30 ML CUP PO SCH (09:46)
[2019-12-28 09:48] VITALS: BP 112/67; PULSE 70
--- NOTE | 2019-12-28 10:00 | US ---
Ultrasound-guided paracentesis. DATE OF EXAM: 12/28/2019 CLINICAL HISTORY: Ascites The procedure was discussed with the patient. The risks, complications, benefits, and alternatives we re discussed and any questions were answered. Informed consent was obtained. The patient was placed s upine on the ultrasound table and prepped and draped in the usual sterile fashion. All elements of maximal barrier technique were utilized. Under ultrasound guidance, access into the right lower quadrant was obtained, via the paracentesis catheter system and direct ultrasound guidanc e. Approximately 1.3 liters of straw-colored fluid was removed. The patient was stable throughout the pr ocedure and remained stable upon discharge from Department of Radiology. IMPRESSION: Successful paracentesis under ultrasound guidance.
--- NOTE | 2019-12-28 12:37 | P.DS ---
Providers Date of admission: 12/28/19 10:08 Expected date of discharge: 12/28/19 Attending physician: James Meza Consults: 12/26/19 06:45 Consult Physician Urgent Consulting Provider: Epifanio Harrington Consult Reason/Comments: needs paracentesis Do you want consulting provider notified?: Yes, Notify in am Primary care physician: James Meza - Discharge Diagnosis(es) (1) Alcoholic cirrhosis of liver with ascites Current Visit: Yes Status: Acute (2) Abdominal pain Current Visit: No Status: Acute (3) Alcohol abuse Current Visit: No Status: Acute (4) Alcoholic liver disease Current Visit: No Status: Acute (5) Anemia Current Visit: No Status: Acute (6) Ascites Current Visit: No Status: Acute (7) Chronic alcoholic hepatitis Current Visit: No Status: Acute (8) Chronic alcoholic liver disease Current Visit: No Status: Acute (9) Chronic anemia Current Visit: No Status: Acute (10) Cirrhosis Current Visit: No Status: Acute (11) Cirrhosis of liver with ascites Current Visit: No Status: Acute Hospital Course: Patient was admitted for an observation for abdominal pain and progressive over the worsening ascites secondary to end-stage liver disease radiology was unable to fit him into the schedule yesterday patient had paracentesis this morning is doing well General: [Patient awake, alert and oriented times 3. Patient in no acute distress.] HEENT: [PERRL. EOMI. No pharyngeal erythema or exudate.] Neck: [No adenopathy.] Cardiac: [Heart regular in rate and rhythm. No S3. No S4. No clicks, rubs. No murmur.] Lungs: [Clear to auscultation bilaterally.] Abdomen: liver large to palpation, able to palpate approximately 3 fingerbreadths beneath the 12th rib margin ascites still apparent but markedly improved Extremes: [No edema no cyanosis no claudication normal pulses] : Normal male genitalia Musculoskeletal: [No joint erythema, edema or tenderness.] Skin: [No rash.] Neurologic: [No lateralizing deficits. CN II - XII grossly intact.] Lymphatic: [No adenopathy.] Patient Condition at Discharge: Serious Plan - Discharge Summary Discharge Rx Participant: No New Discharge Prescriptions: No Action Folic Acid 1 mg PO DAILY busPIRone HCl [Buspar] 10 mg PO TID PRN PRN Reason: Anxiety Magnesium Oxide [Mag-Ox] 400 mg PO DAILY Amoxicillin 875 mg PO Q12HR Thiamine [Vitamin B-1] 100 mg PO DAILY Albuterol Sulfate [Ventolin HFA] 1 - 2 puff INHALATION RT-Q6H PRN PRN Reason: Shortness Of Breath Pantoprazole [Protonix] 40 mg PO DAILY Hydrocodone/Acetaminophen [[place] 7.5-325] 1 tab PO TID PRN PRN Reason: Pain Furosemide [Lasix] 40 mg PO DAILY Lactulose 30 gm PO DAILY PRN PRN Reason: Constipation Discharge Medication List Folic Acid 1 mg PO DAILY 10/28/19 [History] Magnesium Oxide [Mag-Ox] 400 mg PO DAILY 12/08/19 [History] busPIRone HCl [Buspar] 10 mg PO TID PRN 12/08/19 [History] Albuterol Sulfate [Ventolin HFA] 1 - 2 puff INHALATION RT-Q6H PRN 12/26/19 [History] Amoxicillin 875 mg PO Q12HR 12/26/19 [History] Furosemide [Lasix] 40 mg PO DAILY 12/26/19 [History] Hydrocodone/Acetaminophen [[place] 7.5-325] 1 tab PO TID PRN 12/26/19 [History] Lactulose 30 gm PO DAILY PRN 12/26/19 [History] Pantoprazole [Protonix] 40 mg PO DAILY 12/26/19 [History] Thiamine [Vitamin B-1] 100 mg PO DAILY 12/26/19 [History] Follow up Appointment(s)/Referral(s): James Meza Jr, [Primary Care Provider] - 1-2 days
== END 2019-12-28 13:19 | disposition home or self-care (01) | DRG 433 ==
LOC: EC 04:40 → 1SOBS 06:46 → 3NCARDOBS 11:52 → OBSVTOIN 12-28 10:08
PROVIDERS: ADMIT Family Medicine; ATTEND Family Medicine
PROC: 0W9G3ZZ Drainage of Peritoneal Cavity, Percutaneous Approach (ICD-10-PCS; principal; 2019-12-28)
DX: K70.31 Alcoholic cirrhosis of liver with ascites (principal); I85.10 Secondary esophageal varices without bleeding; K76.6 Portal hypertension; D69.6 Thrombocytopenia, unspecified; D64.9 Anemia, unspecified; K70.11 Alcoholic hepatitis with ascites; F10.220 Alcohol dependence with intoxication, uncomplicated; F31.9 Bipolar disorder, unspecified; J45.909 Unspecified asthma, uncomplicated; F43.10 Post-traumatic stress disorder, unspecified; F41.9 Anxiety disorder, unspecified; F17.210 Nicotine dependence, cigarettes, uncomplicated; R00.0 Tachycardia, unspecified; E66.9 Obesity, unspecified; K59.00 Constipation, unspecified; L40.9 Psoriasis, unspecified; Y90.4 Blood alcohol level of 80-99 mg/100 ml; Z68.26 Body mass index [BMI] 26.0-26.9, adult; Z79.899 Other long term (current) drug therapy; Z87.01 Personal history of pneumonia (recurrent); Z87.19 Personal history of other diseases of the digestive system; Z87.442 Personal history of urinary calculi; Z86.14 Personal history of Methicillin resistant Staphylococcus aureus infection; Z90.49 Acquired absence of other specified parts of digestive tract; Z87.828 Personal history of other (healed) physical injury and trauma; Z98.890 Other specified postprocedural states; Z82.49 Family history of ischemic heart disease and other diseases of the circulatory system; Z84.2 Family history of other diseases of the genitourinary system
CPT/HCPCS: 36415; 49083; 80053; 80320; 81001; 82140; 83605; 83690; 85025; 85610; 85730; 86850; 86900; 86901; 87040; 93005; 96374; 99285

== ENCOUNTER 2020-03-07 15:41 | Inpatient (IN) | payer OTHER ==
[2020-03-07] MEDS ORDERED: OCTREOTIDE 100 MCG/ML INJ IVP STA (15:53)
[2020-03-07] MEDS ORDERED: PANTOPRAZOLE 40 MG/10 ML VIAL IVP STA (15:53)
[2020-03-07] MEDS ORDERED: ONDANSETRON 4 MG/2 ML VIAL IVP STA (16:02)
[2020-03-07] MEDS ORDERED: HYDROmorphone 0.5 MG/0.5 ML SYRINGE IVP STA (16:03)
[2020-03-07] MEDS: SODIUM CHLORIDE 0.9% 1,000 ML IV SCH (16:26)
[2020-03-07 16:32] LABS: Anisocytosis Slight; Basophils # (A) 0.1 k/uL (0-0.2); Basophils % (A) 2 %; Eosinophils # (A) 0.3 k/uL (0-0.7); Eosinophils % (A) 6 %; HCT 36.5 % (39.0-53.0); HGB 11.9 gm/dL (13.0-17.5); Hypochromasia Slight; Lymphocytes # (A) 1.4 k/uL (1.0-4.8); Lymphocytes % (A) 25 %; MCH 30.4 pg (25.0-35.0); MCHC 32.7 g/dL (31.0-37.0); Mean Platelet Volume 8.5; Monocytes # (A) 0.6 k/uL (0-1.0); Monocytes % (A) 10 %; Neutrophils # (A) 3.2 k/uL (1.3-7.7); Neutrophils % (A) 55 %; Platelet Count 123 k/uL (150-450); RBC 3.93 m/uL (4.30-5.90); RDW 18.4 % (11.5-15.5); WBC 5.8 k/uL (3.8-10.6)
[2020-03-07 16:40] LABS: INR 1.2 (<1.2); Prothrombin Time 12.1 sec (9.0-12.0)
[2020-03-07 16:41] LABS: ALT 49 U/L (4-49); AST 136 U/L (17-59); African American GFR (CKD) >90 (>60 ml/min/1.73 sqM); Albumin 4.1 g/dL (3.5-5.0); Alkaline Phosphatase 138 U/L (38-126); Anion Gap 12 mmol/L; Blood Urea Nitrogen 7 mg/dL (9-20); Calcium 8.1 mg/dL (8.4-10.2); Carbon Dioxide 21 mmol/L (22-30); Chloride 114 mmol/L (98-107); Glucose 136 mg/dL (74-99); Non-African American GFR(CKD) >90 (>60 ml/min/1.73 sqM); Potassium 3.2 mmol/L (3.5-5.1); Sodium 147 mmol/L (137-145); Total Bilirubin 1.2 mg/dL (0.2-1.3); Total Protein 7.5 g/dL (6.3-8.2)
[2020-03-07] MEDS ORDERED: LACTULOSE 20 GM/30 ML CUP PO ONE (16:44)
--- NOTE | 2020-03-07 16:54 | ED ---
GI Bleed HPI - General Source: patient, EMS Mode of arrival: EMS Limitations: no limitations <Ailyn Terry - Last Filed: 03/07/20 18:24> <Akin Bustillos - Last Filed: 03/07/20 21:55> - General Chief complaint: GI Bleed Stated complaint: vomiting blood Time Seen by Provider: 03/07/20 15:53 - History of Present Illness Initial comments: 45-year-old male with history of GI bleed, esophageal varices, ascites, Cirrhosis secondary to ETOH abuse, newly diagnosed pancreatic cancer in early 2019 at [facility] patient refusing treatment (diagnosed by biopsy per patient). Patient states that he has been vomiting x 2 hours bright red blood, has some upper abdominal discomfort-mild and nausea. Patient admits to one month of black stool Denies fevers. Patient denies lightheadedness, but states he is concerned the nausea is caused by high ammonia levels. Patient take lactulose at home. Patient denies chest pain, SOB, leg swelling, abdominal distention, headache, visual changes or additional complaints. He appears nontoxic on arrival, he has emesis basis that is empty, no active vomiting. (Ailyn Terry) - Related Data Home Medications Medication Instructions Recorded Confirmed Folic Acid 1 mg PO DAILY 10/28/19 03/07/20 Magnesium Oxide [Mag-Ox] 400 mg PO BID 12/08/19 03/07/20 Albuterol Sulfate [Ventolin HFA] 1 puff INHALATION RT-Q6H PRN 12/26/19 03/07/20 Furosemide [Lasix] 40 mg PO DAILY 12/26/19 03/07/20 Hydrocodone/Acetaminophen [[place] 1 tab PO TID PRN 12/26/19 03/07/20 7.5-325] Lactulose 30 gm PO DAILY PRN 12/26/19 03/07/20 Pantoprazole [Protonix] 40 mg PO DAILY 12/26/19 03/07/20 Thiamine [Vitamin B-1] 100 mg PO DAILY 12/26/19 03/07/20 Multivitamins, Thera [Multivitamin 1 tab PO DAILY 03/07/20 03/07/20 (formulary)] Allergies Allergy/AdvReac Type Severity Reaction Status Date / Time No Known Allergies Allergy Verified 10/22/20 18:01 Review of Systems ROS Other: All systems not noted in ROS Statement are negative. <Ailyn Terry - Last Filed: 03/07/20 18:24> ROS Other: All systems not noted in ROS Statement are negative. <Akin Bustillos Maria L - Last Filed: 03/07/20 21:55> ROS Statement: Those systems with pertinent positive or pertinent negative responses have been documented in the HPI. Past Medical History Past Medical History: Asthma, Cancer, GI Bleed, Liver Disease, Pneumonia, Renal Disease, Skin Disorder Additional Past Medical History / Comment(s): Liver cirrhosis, portal HTN, abdominal ascities, pancreatitis, upper and lower GI bleeds, bleeding ulcers, es ophageal varicies-banded, thrombocytopemia, chronic anemia, gallstones, nephrolithiasis/hematuria, L inguinal hernia, psoriasis; paracentesis, umbilical hernia, left foot injury, pancreatic CA History of Any Multi-Drug Resistant Organisms: MRSA Date of last positivie culture/infection: 12/09/13 MDRO Source:: Right first finger Past Surgical History: Appendectomy, Cholecystectomy, Hernia Repair, Orthopedic Surgery Additional Past Surgical History / Comment(s): EGDs/varicies banding/colonoscopy, paracentesis, right hand tendon repair, right knee arthroscopy, cystoscopy for kidney stone removal, right hand ring finger surgery. surgery for umbilical hernia, Past Anesthesia/Blood Transfusion Reactions: Previous Problems w/ Anesthesia, Motion Sickness Additional Past Anesthesia/Blood Transfusion Reaction / Comment(s): Woke up during scope procedure. Past Psychological History: Anxiety, Bipolar, Depression, PTSD Smoking Status: Current every day smoker Past Alcohol Use History: Abuse, Daily Past Drug Use History: Cocaine, Heroin, Marijuana - Past Family History Mother Family Medical History: No Reported History Additional Family Medical History / Comment(s): Mother has health issues from a MVA-pt did not elaborate. Father Family Medical History: Vascular Disorder Additional Family Medical History / Comment(s): Prostate issues grandpa. Brain aneurysm father. <Ailyn Terry - Last Filed: 03/07/20 18:24> General Exam Limitations: no limitations <Ailyn Terry - Last Filed: 03/07/20 18:24> - General Exam Comments Initial Comments: General: The patient is awake and alert, in no distress Eye: Pupils are equal, round and reactive to light, extra-ocular movements are intact. No nystagmus. There is normal conjunctiva bilaterally. No signs of icterus. Ears, nose, mouth and throat: There are moist mucous membranes and no oral lesions. Neck: The neck is supple, there is no tenderness or JVD. Cardiovascular: There is a regular rate and rhythm. No murmur, rub or gallop is appreciated. Respiratory: Lungs are clear to auscultation, respirations are non-labored, breath sounds are equal. No wheezes, stridor, rales, or rhonchi. Gastrointestinal: Soft, non-distended, diffuse upper abdominal pain to palpation, abdomen without masses or organomegaly noted. There is no rebound or guarding present. Musculoskeletal: Normal ROM, no tenderness. Strength 5/5. Sensation intact. Pulses equal bilaterally 2+. Neurological: A&O x 3. CN II-XII intact grossly, There are no obvious motor or sensory deficits. Coordination appears grossly intact. Speech is normal. Skin: Skin is warm and dry and no rashes or lesions are noted. Psychiatric: Cooperative, appropriate mood & affect, normal judgment. (Ailyn eTrry) Course Vital Signs 03/07/20 03/07/20 03/07/20 15:42 18:01 21:44 Temperature 97.3 F L Pulse Rate 95 83 71 Respiratory 16 18 18 Rate Blood Pressure 132/99 119/68 113/69 O2 Sat by Pulse 97 95 94 L Oximetry Medical Decision Making - Lab Data Result diagrams: 03/07/20 15:53 03/07/20 15:53 <Ailyn Terry - Last Filed: 03/07/20 18:24> - Lab Data Result diagrams: 03/07/20 21:00 03/07/20 15:53 <Akin Bustillos - Last Filed: 03/07/20 21:55> - Medical Decision Making Cirrhosis hx patient presenting for upper GI bleed. No mental emesis in the ER. History of esophageal varices patient started on octreotide IVP/drop, protonix and rocephin. Hgb Near baseline. BP and HR within acceptable limits. Patient agreeable to admission for GI consultation, serial CBC. Patient case discussed with Dr. Bustillos who is agreeable to care plan K+ mildly low, ammonia high given lactulose, K replaced. Patient magnesium WNL. Patient placed on CIWA scale/withdrawal protocol. (Ailyn Terry) Case discussed with Dr. Meza who will admit the patient, case discussed with gastroenterology Dr. Harrington. Patient is hemodynamically stable, hemoglobin 11.9 which is on the high side for this patient. Case discussed with Dr. Bates who will admit patient to the ICU. (Akin Bustillos) - Lab Data Lab Results 03/07/20 03/07/20 03/07/20 Range/Units 15:53 15:53 15:53 WBC 5.8 (3.8-10.6) k/uL RBC 3.93 L (4.30-5.90) m/uL Hgb 11.9 L (13.0-17.5) gm/dL Hct 36.5 L (39.0-53.0) % MCV 93.0 (80.0-100.0) fL MCH 30.4 (25.0-35.0) pg MCHC 32.7 (31.0-37.0) g/dL RDW 18.4 H (11.5-15.5) % Plt Count 123 L (150-450) k/uL Neutrophils % 55 % Lymphocytes % 25 % Monocytes % 10 % Eosinophils % 6 % Basophils % 2 % Neutrophils # 3.2 (1.3-7.7) k/uL Lymphocytes # 1.4 (1.0-4.8) k/uL Monocytes # 0.6 (0-1.0) k/uL Eosinophils # 0.3 (0-0.7) k/uL Basophils # 0.1 (0-0.2) k/uL Hypochromasia Slight Anisocytosis Slight PT 12.1 H (9.0-12.0) sec INR 1.2 H (<1.2) APTT 27.0 (22.0-30.0) sec Sodium 147 H (137-145) mmol/L Potassium 3.2 L (3.5-5.1) mmol/L Chloride 114 H (98-107) mmol/L Carbon Dioxide 21 L (22-30) mmol/L Anion Gap 12 mmol/L BUN 7 L (9-20) mg/dL Creatinine 0.58 L (0.66-1.25) mg/dL Est GFR (CKD-EPI)AfAm >90 (>60 ml/min/1.73 sqM) Est GFR (CKD-EPI)NonAf >90 (>60 ml/min/1.73 sqM) Glucose 136 H (74-99) mg/dL Calcium 8.1 L (8.4-10.2) mg/dL Magnesium (1.6-2.3) mg/dL Total Bilirubin 1.2 (0.2-1.3) mg/dL AST 136 H (17-59) U/L ALT 49 (4-49) U/L Alkaline Phosphatase 138 H (38-126) U/L Ammonia (<30) umol/L Troponin I (0.000-0.034) ng/mL Total Protein 7.5 (6.3-8.2) g/dL Albumin 4.1 (3.5-5.0) g/dL Lipase 344 H (23-300) U/L Blood Type Blood Type Recheck Bld Type Recheck Status Antibody Screen Spec Expiration Date 03/07/20 03/07/20 03/07/20 Range/Units 15:53 15:53 15:53 WBC (3.8-10.6) k/uL RBC (4.30-5.90) m/uL Hgb (13.0-17.5) gm/dL Hct (39.0-53.0) % MCV (80.0-100.0) fL MCH (25.0-35.0) pg MCHC (31.0-37.0) g/dL RDW (11.5-15.5) % Plt Count (150-450) k/uL Neutrophils % % Lymphocytes % % Monocytes % % Eosinophils % % Basophils % % Neutrophils # (1.3-7.7) k/uL Lymphocytes # (1.0-4.8) k/uL Monocytes # (0-1.0) k/uL Eosinophils # (0-0.7) k/uL Basophils # (0-0.2) k/uL Hypochromasia Anisocytosis PT (9.0-12.0) sec INR (<1.2) APTT (22.0-30.0) sec Sodium (137-145) mmol/L Potassium (3.5-5.1) mmol/L Chloride (98-107) mmol/L Carbon Dioxide (22-30) mmol/L Anion Gap mmol/L BUN (9-20) mg/dL Creatinine (0.66-1.25) mg/dL Est GFR (CKD-EPI)AfAm (>60 ml/min/1.73 sqM) Est GFR (CKD-EPI)NonAf (>60 ml/min/1.73 sqM) Glucose (74-99) mg/dL Calcium (8.4-10.2) mg/dL Magnesium 1.7 (1.6-2.3) mg/dL Total Bilirubin (0.2-1.3) mg/dL AST (17-59) U/L ALT (4-49) U/L Alkaline Phosphatase (38-126) U/L Ammonia (<30) umol/L Troponin I <0.012 (0.000-0.034) ng/mL Total Protein (6.3-8.2) g/dL Albumin (3.5-5.0) g/dL Lipase (23-300) U/L Blood Type A Negative Blood Type Recheck A Neg Bld Type Recheck Status No Antibody Screen NEGATIVE Spec Expiration Date 03/10/2020 - 235203/07/20 Range/Units 16:02 WBC (3.8-10.6) k/uL RBC (4.30-5.90) m/uL Hgb (13.0-17.5) gm/dL Hct (39.0-53.0) % MCV (80.0-100.0) fL MCH (25.0-35.0) pg MCHC (31.0-37.0) g/dL RDW (11.5-15.5) % Plt Count (150-450) k/uL Neutrophils % % Lymphocytes % % Monocytes % % Eosinophils % % Basophils % % Neutrophils # (1.3-7.7) k/uL Lymphocytes # (1.0-4.8) k/uL Monocytes # (0-1.0) k/uL Eosinophils # (0-0.7) k/uL Basophils # (0-0.2) k/uL Hypochromasia Anisocytosis PT (9.0-12.0) sec INR (<1.2) APTT (22.0-30.0) sec Sodium (137-145) mmol/L Potassium (3.5-5.1) mmol/L Chloride (98-107) mmol/L Carbon Dioxide (22-30) mmol/L Anion Gap mmol/L BUN (9-20) mg/dL Creatinine (0.66-1.25) mg/dL Est GFR (CKD-EPI)AfAm (>60 ml/min/1.73 sqM) Est GFR (CKD-EPI)NonAf (>60 ml/min/1.73 sqM) Glucose (74-99) mg/dL Calcium (8.4-10.2) mg/dL Magnesium (1.6-2.3) mg/dL Total Bilirubin (0.2-1.3) mg/dL AST (17-59) U/L ALT (4-49) U/L Alkaline Phosphatase (38-126) U/L Ammonia 81 H (<30) umol/L Troponin I (0.000-0.034) ng/mL Total Protein (6.3-8.2) g/dL Albumin (3.5-5.0) g/dL Lipase (23-300) U/L Blood Type Blood Type Recheck Bld Type Recheck Status Antibody Screen Spec Expiration Date Critical Care Time Critical Care Time: Yes <Akin Bustillos - Last Filed: 03/07/20 21:55> Disposition Is patient prescribed a controlled substance at d/c from ED?: No Time of Disposition: 17:25 Decision to Admit Reason: Admit from EC Decision Date: 03/07/20 Decision Time: 17:25 <Ailyn Terry - Last Filed: 03/07/20 18:24> <Akin Bustillos - Last Filed: 03/07/20 21:55> Clinical Impression: Upper GI bleed, Hematemesis, Increased ammonia level, Nausea & vomiting, Upper abdominal pain, Hypokalemia Disposition: ADMITTED IP TO THIS [facility] Condition: Stable
[2020-03-07] MEDS ORDERED: CALCIUM GLUCONATE 1 GM in SODIUM CHLORIDE 0.9% 100 ML IVPB ONE (17:00)
[2020-03-07] MEDS ORDERED: NALOXONE 0.4 MG/ML 1 ML VIAL IV PRN (17:19)
[2020-03-07] MEDS ORDERED: LORazepam 2 MG/ML INJ IV PRN (17:22)
[2020-03-07] MEDS ORDERED: THIAMINE 100 MG/ML 2 ML VIAL IM STA (17:22)
[2020-03-07] MEDS ORDERED: POTASSIUM CHLORIDE ER 10 MEQ TAB.ER.PRT PO STA (17:22)
[2020-03-07] MEDS: OCTREOTIDE 500 MCG in SODIUM CHLORIDE 0.9% 250 ML IV ONE (19:00)
[2020-03-07] MEDS: HYDROmorphone 0.5 MG/0.5 ML SYRINGE IVP PRN ×2 (20:05→23:04)
[2020-03-07 21:01] LABS: Anisocytosis Slight; Basophils # (A) 0.1 k/uL (0-0.2); Basophils % (A) 3 %; Eosinophils # (A) 0.3 k/uL (0-0.7); Eosinophils % (A) 6 %; HGB 11.5 gm/dL (13.0-17.5); Hypochromasia Slight; Lymphocytes # (A) 1.5 k/uL (1.0-4.8); Lymphocytes % (A) 28 %; MCH 29.8 pg (25.0-35.0); Mean Platelet Volume 8.4; Monocytes # (A) 0.5 k/uL (0-1.0); Monocytes % (A) 9 %; Neutrophils # (A) 2.7 k/uL (1.3-7.7); Neutrophils % (A) 51 %; Platelet Count 102 k/uL (150-450); RBC 3.87 m/uL (4.30-5.90); RDW 18.6 % (11.5-15.5); WBC 5.2 k/uL (3.8-10.6)
[2020-03-07] MEDS ORDERED: NICOTINE 21MG/24HR PATCH TRANSDERM STA (21:36)
[2020-03-07] MEDS: ONDANSETRON 4 MG/2 ML VIAL IVP PRN (21:41)
[2020-03-08] MEDS: HYDROmorphone 0.5 MG/0.5 ML SYRINGE IVP PRN ×7 (02:03→21:23)
[2020-03-08] MEDS: OCTREOTIDE 500 MCG in SODIUM CHLORIDE 0.9% 250 ML IV ONE (03:28)
[2020-03-08] MEDS: LORazepam 2 MG/ML INJ IV PRN ×7 (04:13→23:52)
[2020-03-08 05:39] LABS: ALT 63 U/L (4-49); AST 249 U/L (17-59); African American GFR (CKD) >90 (>60 ml/min/1.73 sqM); Albumin 3.4 g/dL (3.5-5.0); Alkaline Phosphatase 118 U/L (38-126); Anion Gap 9 mmol/L; Blood Urea Nitrogen 5 mg/dL (9-20); Calcium 7.4 mg/dL (8.4-10.2); Carbon Dioxide 20 mmol/L (22-30); Chloride 115 mmol/L (98-107); Glucose 90 mg/dL (74-99); Non-African American GFR(CKD) >90 (>60 ml/min/1.73 sqM); Potassium 3.3 mmol/L (3.5-5.1); Sodium 144 mmol/L (137-145); Total Bilirubin 1.4 mg/dL (0.2-1.3); Total Protein 6.6 g/dL (6.3-8.2)
[2020-03-08 05:47] LABS: Anisocytosis Slight; Basophils # (A) 0.1 k/uL (0-0.2); Basophils % (A) 1 %; Eosinophils # (A) 0.3 k/uL (0-0.7); Eosinophils % (A) 8 %; HCT 34.1 % (39.0-53.0); HGB 10.5 gm/dL (13.0-17.5); Hypochromasia Marked; Lymphocytes # (A) 1.1 k/uL (1.0-4.8); Lymphocytes % (A) 28 %; MCH 29.5 pg (25.0-35.0); MCV 95.3 fL (80.0-100.0); Macrocytosis Slight; Mean Platelet Volume 9.1; Monocytes # (A) 0.6 k/uL (0-1.0); Monocytes % (A) 14 %; Neutrophils # (A) 1.8 k/uL (1.3-7.7); Neutrophils % (A) 45 %; RBC 3.57 m/uL (4.30-5.90); RDW 18.5 % (11.5-15.5)
[2020-03-08 06:17] LABS: Platelet Count 87 k/uL (150-450)
[2020-03-08] MEDS ORDERED: Potassium Replacement Protocol 1 EACH MISC MISCELLANE PRN (06:18)
[2020-03-08] MEDS: THIAMINE 100 MG TAB PO SCH ×2 (06:20→16:33)
[2020-03-08] MEDS: POTASSIUM CHLORIDE 10 MEQ in WATER FOR INJECTION 1 100ML.BAG IVPB SCH ×5 (06:36→10:57)
[2020-03-08] MEDS: SODIUM CHLORIDE 0.9% 1,000 ML IV SCH ×2 (06:37→16:32)
[2020-03-08] MEDS: PANTOPRAZOLE 40 MG/10 ML VIAL IVP SCH ×2 (09:50→20:11)
--- NOTE | 2020-03-08 09:51 | P.CNPUL ---
History of Present Illness Consult date: 03/08/20 Requesting physician: James Meza Jr Reason for consult: other (Critical care management) Chief complaint: GI bleed History of present illness: This is a pleasant 45-year-old gentleman who follows with Dr. Meza is his primary care provider. He has a history of liver cirrhosis related to alcohol abuse, chronic tobacco dependence, occasional marijuana use, GI bleed with previous banding of esophageal varices, severe blood loss anemia requiring ICD placement back in 2019. He states he had stopped drinking for nearly a year but had recently been diagnosed with pancreatic cancer earlier this year at [facility] via biopsy and started drinking again. He had declined any treatment for the cancer. Yesterday he presented to the emergency room with a 2 hour history of vomiting bright red blood, upper abdominal discomfort and nausea. He had black stools as well. He is maintained on lactulose at home but was concern regarding possible high ammonia levels. His ammonia level was high at 81 and he did receive lactulose. Currently 76. He is seen today in consultation in the intensive care unit. GI consult pending. White count 4.0. Hemoglobin 10.5. Platelet count 87,000. Sodium 144. Potassium 3.3. Creatinine 0.57. AST 249. ALT 63. INR 1.2. He is on the CIWA protocol. Receiving Protonix 40 mg IV twice a day. Thiamine. Review of Systems REVIEW OF SYSTEMS: CONSTITUTIONAL: Positive for recent weight loss. EYES: Denies change in vision. EARS, NOSE, MOUTH, THROAT: Denies headaches, denies sore throat. CARDIOVASCULAR: Denies chest pain, palpitations or syncopal episodes. RESPIRATORY: Denies shortness of breath, cough, congestion or hemoptysis. GASTROINTESTINAL: Vomiting of bright red blood, black tarry stools, abdominal pain GENITOURINARY: Denies hematuria, denies infections. MUSKULOSKELETAL: Denies pain, denies swelling. INTEGUMENTARY: Denies rash, denies eczema. NEUROLOGICAL: Denies recent memory loss, no recent seizure activity. PSYCHIATRIC: Denies anxiety, denies depression. HEMATOLOGIC/LYMPHATIC: Denies anemia, denies enlarged lymph nodes. Past Medical History Past Medical History: Asthma, Cancer, GI Bleed, Liver Disease, Pneumonia, Renal Disease, Skin Disorder Additional Past Medical History / Comment(s): Liver cirrhosis, portal HTN, abdominal ascities, pancreatitis, upper and lower GI bleeds, bleeding ulcers, esophageal varicies-banded, thrombocytopemia, chronic anemia, gallstones, nephrolithiasis/hematuria, L inguinal hernia, psoriasis; paracentesis, umbilical hernia, left foot injury, pancreatic CA History of Any Multi-Drug Resistant Organisms: MRSA Date of last positivie culture/infection: 12/09/13 MDRO Source:: Right first finger Past Surgical History: Appendectomy, Cholecystectomy, Hernia Repair, Orthopedic Surgery Additional Past Surgical History / Comment(s): EGDs/varicies banding/colonoscopy, paracentesis, right hand tendon repair, right knee arthroscopy, cystoscopy for kidney stone removal, right hand ring finger surgery. surgery for umbilical hernia, Past Anesthesia/Blood Transfusion Reactions: Previous Problems w/ Anesthesia, Motion Sickness Additional Past Anesthesia/Blood Transfusion Reaction / Comment(s): Woke up during scope procedure. Past Psychological History: Anxiety, Bipolar, Depression, PTSD Additional Psychological History / Comment(s): lives by his self. He uses no assistive device. He does not drive, uses bus system. Smoking Status: Current every day smoker Past Alcohol Use History: Abuse, Daily Additional Past Alcohol Use History / Comment(s): Pt states he started smoking in 1984- states he is back up to a [facility]. he staes he quit drinking 4 months ago and recently drank a fifth las tnight due to his pain. Past Drug Use History: Cocaine, Heroin, Marijuana Additional Drug Use History / Comment(s): pt stats he last smoked marijuana on 10/28/19 and last did cocaine on 10/25/19. pt states he took a pill from a friend a couple days ago and it had cocaine and heroin in it. - Past Family History Mother Family Medical History: No Reported History Additional Family Medical History / Comment(s): Mother has health issues from a MVA-pt did not elaborate. Father Family Medical History: Vascular Disorder Additional Family Medical History / Comment(s): Prostate issues grandpa. Brain aneurysm father. Medications and Allergies Home Medications Medication Instructions Recorded Confirmed Type Folic Acid 1 mg PO DAILY 10/28/19 03/07/20 History Magnesium Oxide [Mag-Ox] 400 mg PO BID 12/08/19 03/07/20 History Albuterol Sulfate [Ventolin HFA] 1 puff INHALATION RT-Q6H PRN 12/26/19 03/07/20 History Furosemide [Lasix] 40 mg PO DAILY 12/26/19 03/07/20 History Hydrocodone/Acetaminophen [[place] 1 tab PO TID PRN 12/26/19 03/07/20 History 7.5-325] Lactulose 30 gm PO DAILY PRN 12/26/19 03/07/20 History Pantoprazole [Protonix] 40 mg PO DAILY 12/26/19 03/07/20 History Thiamine [Vitamin B-1] 100 mg PO DAILY 12/26/19 03/07/20 History Multivitamins, Thera [Multivitamin 1 tab PO DAILY 03/07/20 03/07/20 History (formulary)] Allergies Allergy/AdvReac Type Severity Reaction Status Date / Time No Known Allergies Allergy Verified 03/07/20 18:01 Physical Exam Vitals: Vital Signs Temp Pulse Resp BP Pulse Ox 03/08/20 09:00 66 16 127/74 94 L 03/08/20 08:00 97.8 F 62 16 128/74 94 L 03/08/20 07:00 60 16 129/62 95 03/08/20 06:00 59 L 17 136/78 97 03/08/20 05:00 61 16 130/79 96 03/08/20 04:00 98.9 F 69 16 115/80 96 03/08/20 03:00 68 18 122/71 95 03/08/20 02:00 61 18 100/88 96 03/08/20 01:00 61 18 125/76 96 03/08/20 00:00 98 F 58 L 15 126/65 96 03/07/20 21:44 71 18 113/69 94 L 03/07/20 18:01 83 18 119/68 95 03/07/20 15:42 97.3 F L 95 16 132/99 97 Intake and Output 03/07/20 03/08/20 03/08/20 22:59 06:59 14:59 Intake Total 711.667 400 Output Total 1100 Balance -388.333 400 Intake: IV 500 200 Sodium Chloride 0.9% 1, 500 200 000 ml @ 100 mls/hr IV . Q10H [facility] Rx#:[id number] Intake, IV Titration 211.667 200 Amount Octreotide 500 mcg In 211.667 Sodium Chloride 0.9% 250 ml @ 50 MCG/HR 25 mls/hr IV .Q10H [facility] Rx#: [id number] Potassium Chloride 10 meq 200 In Water For Injection 1 100ml.bag @ 100 mls/hr IVPB Q1HR [facility] Rx#: [id number] Output: Urine 1100 Other: Weight 84.822 kg 85.6 kg GENERAL EXAM: Alert, pleasant 45-year-old gentleman, on 3 liters per minute per nasal, comfortable in no apparent distress. HEAD: Normocephalic. EYES: Normal reaction of pupils, equal size. NOSE: Clear with pink turbinates. THROAT: No erythema or exudates. NECK: No masses, no JVD. CHEST: No chest wall deformity. LUNGS: Equal air entry with crackles in the posterior bases. CVS: S1 and S2 normal with no audible murmur, regular rhythm. ABDOMEN: Slightly distended, normal bowel sounds, no guarding or rigidity. SPINE: No scoliosis or deformity SKIN: No rashes CENTRAL NERVOUS SYSTEM: No focal deficits, tone is normal in all 4 extremities. EXTREMITIES: There is no peripheral edema. No clubbing, no cyanosis. Peripheral pulses are intact. Results - Laboratory Findings CBC and BMP: 03/08/20 04:44 03/08/20 04:44 PT/INR, D-dimer PT 12.1 sec (9.0-12.0) H 03/07/20 15:53 INR 1.2 (<1.2) H 03/07/20 15:53 Abnormal lab findings: Abnormal Labs 03/07/20 03/07/20 03/07/20 15:53 15:53 15:53 RBC 3.93 L Hgb 11.9 L Hct 36.5 L RDW 18.4 H Plt Count 123 L PT 12.1 H INR 1.2 H Sodium 147 H Potassium 3.2 L Chloride 114 H Carbon Dioxide 21 L BUN 7 L Creatinine 0.58 L Glucose 136 H Calcium 8.1 L Total Bilirubin AST 136 H ALT Alkaline Phosphatase 138 H Ammonia Albumin Lipase 344 H 03/07/20 03/07/20 03/08/20 16:02 21:00 04:44 RBC 3.87 L 3.57 L Hgb 11.5 L 10.5 L Hct 36.0 L 34.1 L RDW 18.6 H 18.5 H Plt Count 102 L 87 L PT INR Sodium Potassium Chloride Carbon Dioxide BUN Creatinine Glucose Calcium Total Bilirubin AST ALT Alkaline Phosphatase Ammonia 81 H Albumin Lipase 03/08/20 03/08/20 04:44 07:46 RBC Hgb Hct RDW Plt Count PT INR Sodium Potassium 3.3 L Chloride 115 H Carbon Dioxide 20 L BUN 5 L Creatinine 0.57 L Glucose Calcium 7.4 L Total Bilirubin 1.4 H AST 249 H ALT 63 H Alkaline Phosphatase Ammonia 76 H Albumin 3.4 L Lipase Assessment and Plan Assessment: 1 Acute upper GI bleed with vomiting bright red blood 2. Currently on octreotide at 50 mg per hour. 2 Dark tarry stools 3 Abdominal discomfort, recent diagnosis of pancreatic cancer earlier this year at [facility]. Treatment declined 4 History of alcoholic cirrhosis 5 Previous history of ascites with subsequent paracentesis. 6 History of esophageal varices with banding 7 History of chronic tobacco dependence 8 History of marijuana use 9 History of nephrolithiasis Plan: The patient was seen and evaluated by Dr. Bates GI consult pending Continued on octreotide Continue Protonix Monitor hemoglobin Remains on the CIWA protocol He spoke with both the patient and his sister and the patient requests DO NOT RESUSCITATE/DO NOT INTUBATE CODE STATUS He declined any treatment for pancreatic cancer diagnosed earlier this year We will continue to follow and make further recommendations based on his clinical status I, the cosigning physician, performed a history & physical examination of the patient. Lungs sounds with crackles in the posterior bases, diminished. Maintaining good O2 saturations in the 90s on 3 L/m per nasal cannula. I discussed the assessment and plan of care with my nurse practitioner, Akilah Aquino. I attest to the above consultation as dictated by her. Time with Patient: Greater than 30
[2020-03-08] MEDS ORDERED: PROPOFOL 10 MG/ML 20 ML VIAL IV ONE (12:02)
[2020-03-08] MEDS ORDERED: IV FLUID CONTINUATION 500 ML IV ONE (12:02)
[2020-03-08] MEDS ORDERED: LIDOCAINE 1% INJ 10MG/ML (20 ML MDV) ONE (12:02)
--- NOTE | 2020-03-08 13:00 | P.CONS ---
History of Present Illness - Reason for Consult Consult date: 03/08/20 GI bleed Requesting physician: James Meza Jr - Chief Complaint Vomiting blood - History of Present Illness 45-year-old male with multiple medical comorbidities including decompensated alcohol cirrhosis, a history of esophageal varices and portal hypertensive gastropathy, ascites, pancreatitis, and the patient reports a diagnosis of pancreatic cancer earlier in 2019 presented to the hospital with complaints of vomiting and hematemesis. The patient has continued to abuse alcohol and reports multiple episodes of vomiting prior to presentation. The patient states he had bright red blood as vomitus. Last endoscopic evaluation in 06/2019 with findings of esophageal ulcer from esophageal banding performed previously as well as portal hypertensive gastropathy. He does feel that his bowel movements have been darker over the past few weeks. He reports abdominal pain in association with an large infraumbilical hernia. Hemoglobin on presentation 10.5, the patient is currently being managed in the ICU. Review of Systems REVIEW OF SYSTEMS: CONSTITUTIONAL: Denies any fevers, chills, weight change or fatigue. CARDIOVASCULAR: Denies any chest pain, palpitations high or low blood pressures RESPIRATORY: Denies any shortness of breath, hemoptysis or cough. GENITOURINARY: No dysuria or hematuria. MUSCULOSKELETAL: No weakness reported. SKIN: Denies any new rashes or lesions, jaundice or pallor. PSYCHIATRIC: Denies any depression or anxiety, known history of alcohol abuse. NEUROLOGY: Denies headache, denies any new focal deficits. EARS/NOSE/THROAT: No recent hearing change, congestion, nasal discharge or sore throat. EYES: No pain in eyes, discharge or change in vision. GASTROINTESTINAL: As per HPI. Past Medical History Past Medical History: Asthma, Cancer, GI Bleed, Liver Disease, Pneumonia, Renal Disease, Skin Disorder Additional Past Medical History / Comment(s): Liver cirrhosis, portal HTN, abdominal ascities, pancreatitis, upper and lower GI bleeds, bleeding ulcers, esophageal varicies-banded, thrombocytopemia, chronic anemia, gallstones, nephrolithiasis/hematuria, L inguinal hernia, psoriasis; paracentesis, umbilical hernia, left foot injury, pancreatic CA History of Any Multi-Drug Resistant Organisms: MRSA Year Discovered:: 12/09/13 MDRO Source:: Right first finger Past Surgical History: Appendectomy, Cholecystectomy, Hernia Repair, Orthopedic Surgery Additional Past Surgical History / Comment(s): EGDs/varicies banding/colonoscopy, paracentesis, right hand tendon repair, right knee arthroscopy, cystoscopy for kidney stone removal, right hand ring finger surgery. surgery for umbilical hernia, Past Anesthesia/Blood Transfusion Reactions: Previous Problems w/ Anesthesia, Motion Sickness Additional Past Anesthesia/Blood Transfusion Reaction / Comm: Woke up during scope procedure. Past Psychological History: Anxiety, Bipolar, Depression, PTSD Additional Psychological History / Comment(s): lives by his self. He uses no assistive device. He does not drive, uses bus system. Smoking Status: Current every day smoker Past Alcohol Use History: Abuse, Daily Additional Past Alcohol Use History / Comment(s): Pt states he started smoking in 1984- states he is back up to a ppd. he staes he quit drinking 4 months ago and recently drank a fifth las tnight due to his pain. Past Drug Use History: Cocaine, Heroin, Marijuana Additional Drug Use History / Comment(s): pt stats he last smoked marijuana on 10/28/19 and last did cocaine on 10/25/19. pt states he took a pill from a friend a couple days ago and it had cocaine and heroin in it. - Past Family History Mother Family Medical History: No Reported History Additional Family Medical History / Comment(s): Mother has health issues from a MVA-pt did not elaborate. Father Family Medical History: Vascular Disorder Additional Family Medical History / Comment(s): Prostate issues grandpa. Brain aneurysm father. Medications and Allergies Home Medications Medication Instructions Recorded Confirmed Type Folic Acid 1 mg PO DAILY 10/28/19 03/07/20 History Magnesium Oxide [Mag-Ox] 400 mg PO BID 12/08/19 03/07/20 History Albuterol Sulfate [Ventolin HFA] 1 puff INHALATION RT-Q6H PRN 12/26/19 03/07/20 History Furosemide [Lasix] 40 mg PO DAILY 12/26/19 03/07/20 History Hydrocodone/Acetaminophen [[place] 1 tab PO TID PRN 12/26/19 03/07/20 History 7.5-325] Lactulose 30 gm PO DAILY PRN 12/26/19 03/07/20 History Pantoprazole [Protonix] 40 mg PO DAILY 12/26/19 03/07/20 History Thiamine [Vitamin B-1] 100 mg PO DAILY 12/26/19 03/07/20 History Multivitamins, Thera [Multivitamin 1 tab PO DAILY 03/07/20 03/07/20 History (formulary)] Allergies Allergy/AdvReac Type Severity Reaction Status Date / Time No Known Allergies Allergy Verified 03/07/20 18:01 Physical Exam Vitals: Vital Signs Temp Pulse Resp BP Pulse Ox 03/08/20 11:00 65 22 133/84 96 03/08/20 10:00 62 18 132/81 94 L 03/08/20 09:00 66 16 127/74 94 L 03/08/20 08:00 97.8 F 62 16 128/74 94 L 03/08/20 07:00 60 16 129/62 95 03/08/20 06:00 59 L 17 136/78 97 03/08/20 05:00 61 16 130/79 96 03/08/20 04:00 98.9 F 69 16 115/80 96 03/08/20 03:00 68 18 122/71 95 03/08/20 02:00 61 18 100/88 96 03/08/20 01:00 61 18 125/76 96 03/08/20 00:00 98 F 58 L 15 126/65 96 03/07/20 21:44 71 18 113/69 94 L 03/07/20 18:01 83 18 119/68 95 03/07/20 15:42 97.3 F L 95 16 132/99 97 Intake and Output 03/07/20 03/08/20 03/08/20 22:59 06:59 14:59 Intake Total 711.667 812.083 Output Total 1100 350 Balance -388.333 462.083 Intake: IV 500 400 Sodium Chloride 0.9% 1, 500 400 000 ml @ 100 mls/hr IV . Q10H [facility] Rx#:[id number] Intake, IV Titration 211.667 412.083 Amount Octreotide 500 mcg In 211.667 212.083 Sodium Chloride 0.9% 250 ml @ 50 MCG/HR 25 mls/hr IV .Q10H [facility] Rx#: [id number] Potassium Chloride 10 meq 200 In Water For Injection 1 100ml.bag @ 100 mls/hr IVPB Q1HR [facility] Rx#: [id number] Output: Urine 1100 350 Other: Weight 84.822 kg 85.6 kg On physical examination, patient appears comfortable in no apparent distress. HEAD: Normocephalic, atraumatic. EYES: No scleral icterus. No conjunctival injection. MOUTH: No lesions, tongue midline. NECK: Trachea midline, no gross abnormalities. CHEST: Decreased air entry in all silva. HEART: S1-S2 appreciated. ABDOMEN: Soft, obese, moderately distended with large infraumbilical hernia. Bowel sounds are positive. No organomegaly. No guarding or rigidity. EXTREMITIES: No pedal edema. SKIN: No rashes, no jaundice. NEUROLOGIC: Alert and oriented x3, no asterixis noted. No focal deficits. Results CBC & Chem 7: 03/08/20 04:44 03/08/20 04:44 Labs: Abnormal Lab Results - Last 24 Hours (Table) 03/07/20 03/07/20 03/07/20 Range/Units 15:53 15:53 15:53 RBC 3.93 L (4.30-5.90) m/uL Hgb 11.9 L (13.0-17.5) gm/dL Hct 36.5 L (39.0-53.0) % RDW 18.4 H (11.5-15.5) % Plt Count 123 L (150-450) k/uL PT 12.1 H (9.0-12.0) sec INR 1.2 H (<1.2) Sodium 147 H (137-145) mmol/L Potassium 3.2 L (3.5-5.1) mmol/L Chloride 114 H (98-107) mmol/L Carbon Dioxide 21 L (22-30) mmol/L BUN 7 L (9-20) mg/dL Creatinine 0.58 L (0.66-1.25) mg/dL Glucose 136 H (74-99) mg/dL Calcium 8.1 L (8.4-10.2) mg/dL Total Bilirubin (0.2-1.3) mg/dL AST 136 H (17-59) U/L ALT (4-49) U/L Alkaline Phosphatase 138 H (38-126) U/L Ammonia (<30) umol/L Albumin (3.5-5.0) g/dL Lipase 344 H (23-300) U/L 03/07/20 03/07/20 03/08/20 Range/Units 16:02 21:00 04:44 RBC 3.87 L 3.57 L (4.30-5.90) m/uL Hgb 11.5 L 10.5 L (13.0-17.5) gm/dL Hct 36.0 L 34.1 L (39.0-53.0) % RDW 18.6 H 18.5 H (11.5-15.5) % Plt Count 102 L 87 L (150-450) k/uL PT (9.0-12.0) sec INR (<1.2) Sodium (137-145) mmol/L Potassium (3.5-5.1) mmol/L Chloride (98-107) mmol/L Carbon Dioxide (22-30) mmol/L BUN (9-20) mg/dL Creatinine (0.66-1.25) mg/dL Glucose (74-99) mg/dL Calcium (8.4-10.2) mg/dL Total Bilirubin (0.2-1.3) mg/dL AST (17-59) U/L ALT (4-49) U/L Alkaline Phosphatase (38-126) U/L Ammonia 81 H (<30) umol/L Albumin (3.5-5.0) g/dL Lipase (23-300) U/L 03/08/20 03/08/20 Range/Units 04:44 07:46 RBC (4.30-5.90) m/uL Hgb (13.0-17.5) gm/dL Hct (39.0-53.0) % RDW (11.5-15.5) % Plt Count (150-450) k/uL PT (9.0-12.0) sec INR (<1.2) Sodium (137-145) mmol/L Potassium 3.3 L (3.5-5.1) mmol/L Chloride 115 H (98-107) mmol/L Carbon Dioxide 20 L (22-30) mmol/L BUN 5 L (9-20) mg/dL Creatinine 0.57 L (0.66-1.25) mg/dL Glucose (74-99) mg/dL Calcium 7.4 L (8.4-10.2) mg/dL Total Bilirubin 1.4 H (0.2-1.3) mg/dL AST 249 H (17-59) U/L ALT 63 H (4-49) U/L Alkaline Phosphatase (38-126) U/L Ammonia 76 H (<30) umol/L Albumin 3.4 L (3.5-5.0) g/dL Lipase (23-300) U/L Assessment and Plan Assessment: 1. Hematemesis: Patient with a known history of decompensated alcoholic cirrhosis who presents with episodes of hematemesis. Patient has previously had varices which were banded in a known history of portal hypertensive gastropathy. Hematemesis in the setting of multiple episodes of vomiting. Unclear if sympto ms are secondary to peptic ulcer disease, Renee-Schwartz tear, variceal bleed or other etiology. 2. Decompensated alcoholic cirrhosis. 3. Patient reports a history of pancreatic cancer diagnosed at [facility] in [place]. 4. Other medical comorbidities for primary team. Plan: Supportive care Nothing by mouth Continue Protonix drip ICU care Continue monitor hemoglobin and hematocrit and transfuse as needed Plan for EGD for further evaluation Alcohol abstinence Continue to monitor and treat for signs and symptoms of alcohol withdrawal Thank you for allowing us to participate in the care of the patient
--- NOTE | 2020-03-08 13:02 | P.PCN ---
Date of Procedure: 03/08/20 Description of Procedure: BRIEF HISTORY: 45-year-old male with multiple medical comorbidities including decompensated alcohol cirrhosis, a history of esophageal varices and portal hypertensive gastropathy, ascites, pancreatitis, and the patient reports a diagnosis of pancreatic cancer earlier in 2019 presented to the hospital with complaints of vomiting and hematemesis. The patient has continued to abuse alcohol and reports multiple episodes of vomiting prior to presentation. The patient states he had bright red blood as vomitus. Last endoscopic evaluation in 06/2019 with findings of esophageal ulcer from esophageal banding performed previously as well as portal hypertensive gastropathy. He does feel that his bowel movements have been darker over the past few weeks. He reports abdominal pain in association with an large infraumbilical hernia. Hemoglobin on presentation 10.5, the patient is currently being managed in the ICU. PROCEDURE PERFORMED: Esophagogastroduodenoscopy. PREOPERATIVE DIAGNOSIS: Hematemesis, decompensated alcoholic cirrhosis. ESTIMATED BLOOD LOSS: Minimal. IV sedation per anesthesia. PROCEDURE: After informed consent was obtained, the patient was brought into the endoscopy unit. IV sedation was administered by Anesthesia under continuous monitoring. Initially the Olympus GIF-190 video endoscope was inserted into the mouth. Esophagus intubated without any difficulty. It was gradually advanced into the stomach and duodenum and carefully examined. The bulb and the second part of the duodenum appeared normal, with no evidence of old or fresh blood. The scope at this time was withdrawn to the stomach, adequately insufflated with air, and upon careful examination, mucosa of the antrum, body, cardia and the fundus appeared normal, except for erythema consistent with portal hypertensive gastropathy. The scope was then withdrawn into the esophagus. The GE junction was located at 39 cm from the incisors. The esophagus appeared normal. There were no erosions or ulcerations or varices seen seen and the patient tolerated the procedure well. IMPRESSION: 1. No old blood, active bleeding or pathology to explain symptoms. 2. Mild portal hypertensive gastropathy. 3. Scarring of the distal esophagus consistent with prior history of variceal banding. RECOMMENDATIONS: The findings of this examination were discussed with the patient . Okay to resume sodium restricted diet. Continue Protonix twice daily. Can discontinue octreotide drip at this time. Continue to monitor hemoglobin and hematocrit introduces needed.
--- NOTE | 2020-03-08 14:22 | P.HPIM ---
History of Present Illness H&P Date: 03/08/20 Chief Complaint: Abdominal pain, GI bleed This a 45-year-old gentleman well-known to Dr. Meza,PCP, frequent admissions regarding end-stage alcoholic liver disease, significant ascites with multiple paracentesis, portal hypertension ,multiple banding for esophageal varices, noncompliant, continues to drink, patient reporting newly diagnosed pancreatic cancer at [facility]-(per patient diagnosed with biopsy)-refused treatment, large infraumbilical hernia, presented to the ER with nausea, vomiting bright red blood, abdominal pain and black stools. Reports he is worried about high ammonia levels causing his nausea. Patient has lactulose listed as a home meds. Ammonia level elevated on admission, 81. Denies fever or chills cough congestion. Denies chest pain, palpitations or increasing shortness of breath. Denies lightheadedness, dizziness or focal deficits. Hemoglobin 11.9, platelets 123, INR 1.2. Sodium 147 down to 144, chloride 114, CO2 21 BUN /creatinine 7, 0.58. T bili, LFTs trending up with T bili 1.4, AST 249, ALT 63, alk phos 118, currently. Lipase 344. .Sandostatin, PPI, Rocephin, lactulose, CIWA protocol initiated. Hypokalemic, potassium 3.2 received potassium replacement supplements. EKG reporting Normal sinus rhythm, nonspecific ST abnormality. Troponins negative 1. Evaluated by GI, EGD scheduled for this morning Review of Systems ROS Other: All systems not noted in ROS Statement are negative. ROS Statement: Those systems with pertinent positive or pertinent negative responses have been documented in the HPI. Past Medical History Past Medical History: Asthma, Cancer, GI Bleed, Liver Disease, Pneumonia, Renal Disease, Skin Disorder Additional Past Medical History / Comment(s): Liver cirrhosis, portal HTN, abdominal ascities, pancreatitis, upper and lower GI bleeds, bleeding ulcers, esophageal varicies-banded, thrombocytopemia, chronic anemia, gallstones, neph rolithiasis/hematuria, L inguinal hernia, psoriasis; paracentesis, umbilical hernia, left foot injury, pancreatic CA History of Any Multi-Drug Resistant Organisms: MRSA Date of last positivie culture/infection: 12/09/13 MDRO Source:: Right first finger Past Surgical History: Appendectomy, Cholecystectomy, Hernia Repair, Orthopedic Surgery Additional Past Surgical History / Comment(s): EGDs/varicies banding/colonoscopy, paracentesis, right hand tendon repair, right knee ar throscopy, cystoscopy for kidney stone removal, right hand ring finger surgery. surgery for umbilical hernia, Past Anesthesia/Blood Transfusion Reactions: Previous Problems w/ Anesthesia, Motion Sickness Additional Past Anesthesia/Blood Transfusion Reaction / Comment(s): Woke up during scope procedure. Past Psychological History: Anxiety, Bipolar, Depression, PTSD Additional Psychological History / Comment(s): lives by his self. He uses no assistive device. He does not drive, uses bus system. Smoking Status: Current every day smoker Past Alcohol Use History: Abuse, Daily Additional Past Alcohol Use History / Comment(s): Pt states he started smoking in 1984- states he is back up to a ppd. he staes he quit drinking 4 months ago and recently drank a fifth las tnight due to his pain. Past Drug Use History: Cocaine, Heroin, Marijuana Additional Drug Use History / Comment(s): pt stats he last smoked marijuana on 10/28/19 and last did cocaine on 10/25/19. pt states he took a pill from a friend a couple days ago and it had cocaine and heroin in it. - Past Family History Mother Family Medical History: No Reported History Additional Family Medical History / Comment(s): Mother has health issues from a MVA-pt did not elaborate. Father Family Medical History: Vascular Disorder Additional Family Medical History / Comment(s): Prostate issues grandpa. Brain aneurysm father. Medications and Allergies Home Medications Medication Instructions Recorded Confirmed Type Folic Acid 1 mg PO DAILY 10/28/19 03/07/20 History Magnesium Oxide [Mag-Ox] 400 mg PO BID 12/08/19 03/07/20 History Albuterol Sulfate [Ventolin HFA] 1 puff INHALATION RT-Q6H PRN 12/26/19 03/07/20 History Furosemide [Lasix] 40 mg PO DAILY 12/26/19 03/07/20 History Hydrocodone/Acetaminophen [[place] 1 tab PO TID PRN 12/26/19 03/07/20 History 7.5-325] Lactulose 30 gm PO DAILY PRN 12/26/19 03/07/20 History Pantoprazole [Protonix] 40 mg PO DAILY 12/26/19 03/07/20 History Thiamine [Vitamin B-1] 100 mg PO DAILY 12/26/19 03/07/20 History Multivitamins, Thera [Multivitamin 1 tab PO DAILY 03/07/20 03/07/20 History (formulary)] Allergies Allergy/AdvReac Type Severity Reaction Status Date / Time No Known Allergies Allergy Verified 03/07/20 18:01 Physical Exam Vitals: Vital Signs Temp Pulse Resp BP Pulse Ox 03/08/20 09:00 66 16 127/74 94 L 03/08/20 08:00 97.8 F 62 16 128/74 94 L 03/08/20 07:00 60 16 129/62 95 03/08/20 06:00 59 L 17 136/78 97 03/08/20 05:00 61 16 130/79 96 03/08/20 04:00 98.9 F 69 16 115/80 96 03/08/20 03:00 68 18 122/71 95 03/08/20 02:00 61 18 100/88 96 03/08/20 01:00 61 18 125/76 96 03/08/20 00:00 98 F 58 L 15 126/65 96 03/07/20 21:44 71 18 113/69 94 L 03/07/20 18:01 83 18 119/68 95 03/07/20 15:42 97.3 F L 95 16 132/99 97 Intake and Output 03/07/20 03/08/20 03/08/20 22:59 06:59 14:59 Intake Total 711.667 400 Output Total 1100 Balance -388.333 400 Intake: IV 500 200 Sodium Chloride 0.9% 1, 500 200 000 ml @ 100 mls/hr IV . Q10H [facility] Rx#:[id number] Intake, IV Titration 211.667 200 Amount Octreotide 500 mcg In 211.667 Sodium Chloride 0.9% 250 ml @ 50 MCG/HR 25 mls/hr IV .Q10H ONE Rx#: [id number] Potassium Chloride 10 meq 200 In Water For Injection 1 100ml.bag @ 100 mls/hr IVPB Q1HR [facility] Rx#: [id number] Output: Urine 1100 Other: Weight 84.822 kg 85.6 kg General: [Patient awake, alert and oriented times 3. no acute distress. HEENT: [PERRL. EOMI. No pharyngeal erythema or exudate.] Neck: [No adenopathy.] Cardiac: [Heart regular in rate and rhythm. No S3. No S4. No clicks, rubs. No murmur.] Lungs: Unlabored, bibasilar crackles] Abdomen: Soft,distended, infraumbilical hernia, diffuse tenderness, No organomegaly. No guarding .Bowel sounds presnt and normoactive in all 4 quadra nts. Extremes: [No edema no cyanosis no claudication normal pulses] Skin: [No rash, warm and dry.] Neurologic: [No lateralizing deficits. CN II - XII grossly intact.] Lymphatic: [No adenopathy.] Results CBC & Chem 7: 03/08/20 04:44 03/08/20 04:44 Labs: Abnormal Lab Results - Last 24 Hours (Table) 03/07/20 03/07/20 03/07/20 Range/Units 15:53 15:53 15:53 RBC 3.93 L (4.30-5.90) m/uL Hgb 11.9 L (13.0-17.5) gm/dL Hct 36.5 L (39.0-53.0) % RDW 18.4 H (11.5-15.5) % Plt Count 123 L (150-450) k/uL PT 12.1 H (9.0-12.0) sec INR 1.2 H (<1.2) Sodium 147 H (137-145) mmol/L Potassium 3.2 L (3.5-5.1) mmol/L Chloride 114 H (98-107) mmol/L Carbon Dioxide 21 L (22-30) mmol/L BUN 7 L (9-20) mg/dL Creatinine 0.58 L (0.66-1.25) mg/dL Glucose 136 H (74-99) mg/dL Calcium 8.1 L (8.4-10.2) mg/dL Total Bilirubin (0.2-1.3) mg/dL AST 136 H (17-59) U/L ALT (4-49) U/L Alkaline Phosphatase 138 H (38-126) U/L Ammonia (<30) umol/L Albumin (3.5-5.0) g/dL Lipase 344 H (23-300) U/L 1003/07/20 03/08/20 Range/Units 16:02 21:00 04:44 RBC 3.87 L 3.57 L (4.30-5.90) m/uL Hgb 11.5 L 10.5 L (13.0-17.5) gm/dL Hct 36.0 L 34.1 L (39.0-53.0) % RDW 18.6 H 18.5 H (11.5-15.5) % Plt Count 102 L 87 L (150-450) k/uL PT (9.0-12.0) sec INR (<1.2) Sodium (137-145) mmol/L Potassium (3.5-5.1) mmol/L Chloride (98-107) mmol/L Carbon Dioxide (22-30) mmol/L BUN (9-20) mg/dL Creatinine (0.66-1.25) mg/dL Glucose (74-99) mg/dL Calcium (8.4-10.2) mg/dL Total Bilirubin (0.2-1.3) mg/dL AST (17-59) U/L ALT (4-49) U/L Alkaline Phosphatase (38-126) U/L Ammonia 81 H (<30) umol/L Albumin (3.5-5.0) g/dL Lipase (23-300) U/L 03/08/20 03/08/20 Range/Units 04:44 07:46 RBC (4.30-5.90) m/uL Hgb (13.0-17.5) gm/dL Hct (39.0-53.0) % RDW (11.5-15.5) % Plt Count (150-450) k/uL PT (9.0-12.0) sec INR (<1.2) Sodium (137-145) mmol/L Potassium 3.3 L (3.5-5.1) mmol/L Chloride 115 H (98-107) mmol/L Carbon Dioxide 20 L (22-30) mmol/L BUN 5 L (9-20) mg/dL Creatinine 0.57 L (0.66-1.25) mg/dL Glucose (74-99) mg/dL Calcium 7.4 L (8.4-10.2) mg/dL Total Bilirubin 1.4 H (0.2-1.3) mg/dL AST 249 H (17-59) U/L ALT 63 H (4-49) U/L Alkaline Phosphatase (38-126) U/L Ammonia 76 H (<30) umol/L Albumin 3.4 L (3.5-5.0) g/dL Lipase (23-300) U/L Thrombosis Risk Factor Assmnt - Choose All That Apply Any of the Below Risk Factors Present?: Yes Each Factor Represents 1 point: Age 41-60 years, Obesity (BMI >25) Other Risk Factors: No Other congenital or acquired thrombophilia - If yes, enter type in comment: No Thrombosis Risk Factor Assessment Total Risk Factor Score: 2 Thrombosis Risk Factor Assessment Level: Low Risk Assessment and Plan Assessment: Acute upper GI bleed with hematemesis ,dark tarry stools, Sandostatin dependent History of esophageal varices with multiple bandings Patient reports recent diagnosis of pancreatic cancer at [facility], declined treatment-records ordered. Chronic anemia Alcoholic cirrhosis of liver, Portal hypertension History of ascites with multiple paracentesis Alcohol dependence Hyperammonia Noncompliance Chronic alcoholic hepatitis Chronic nicotine dependence History of nephrolithiasis No Code, No CPR, No Intubation Plan: Continue current medication regime ,monitoring and symptomatic treatment. Evaluated by machine castings plasterer with recommendations noted. Evaluated by GI with EGD scheduled/pending. Maintained Sandostatin, PPI, lactulose, empiric Rocephin and CIWA protocol. Close monitoring of coags, with repeat follow-up labs ordered for a.m. Records ordered from [facility] regarding recent diagnosis of pancreatic cancer. CEA, CA 19-9 levels ordered. PCP checking in office regardin g any new records from outside hospitals regarding new diagnosis of pancreatic cancer. Alcohol abstinence reinforced. Prognosis guarded multiple complex medical issues. The impression and plan of care has been dictated as directed. : I performed a history and examination of this patient, discussed the same with the dictator. I agree with the dictator's note ,documented as a scribe. Any additional findings or plans will be noted.
[2020-03-08] MEDS ORDERED: ALBUTEROL NEBULIZED 2.5 MG/3 ML INHALATION PRN (14:25)
[2020-03-08] MEDS: LACTULOSE 20 GM/30 ML CUP PO SCH ×2 (16:31→20:11)
[2020-03-08] MEDS: MAGNESIUM OXIDE 400 MG TAB PO SCH (20:11)
[2020-03-08] MEDS: ONDANSETRON 4 MG/2 ML VIAL IVP PRN (22:22)
[2020-03-09] MEDS: SODIUM CHLORIDE 0.9% 1,000 ML IV SCH ×3 (02:58→20:53)
[2020-03-09] MEDS: LORazepam 2 MG/ML INJ IV PRN (03:27)
[2020-03-09] MEDS: HYDROmorphone 0.5 MG/0.5 ML SYRINGE IVP PRN ×4 (03:27→22:37)
[2020-03-09 04:19] LABS: Anisocytosis Slight; Basophils % (A) 1 %; Eosinophils # (A) 0.2 k/uL (0-0.7); Eosinophils % (A) 7 %; HCT 32.4 % (39.0-53.0); HGB 10.4 gm/dL (13.0-17.5); Hypochromasia Slight; Lymphocytes # (A) 0.5 k/uL (1.0-4.8); Lymphocytes % (A) 22 %; MCV 93.5 fL (80.0-100.0); Mean Platelet Volume 9.1; Monocytes # (A) 0.3 k/uL (0-1.0); Monocytes % (A) 12 %; Neutrophils # (A) 1.3 k/uL (1.3-7.7); Neutrophils % (A) 56 %; Platelet Count 51 k/uL (150-450); RBC 3.46 m/uL (4.30-5.90); RDW 18.1 % (11.5-15.5); WBC 2.4 k/uL (3.8-10.6)
[2020-03-09 04:35] LABS: African American GFR (CKD) >90 (>60 ml/min/1.73 sqM); Anion Gap 4 mmol/L; Blood Urea Nitrogen 5 mg/dL (9-20); Calcium 7.6 mg/dL (8.4-10.2); Carbon Dioxide 26 mmol/L (22-30); Chloride 105 mmol/L (98-107); Glucose 100 mg/dL (74-99); Magnesium 1.3 mg/dL (1.6-2.3); Non-African American GFR(CKD) >90 (>60 ml/min/1.73 sqM); Potassium 3.4 mmol/L (3.5-5.1); Sodium 135 mmol/L (137-145)
[2020-03-09] MEDS ORDERED: Magnesium Replacement Protocol 1 EACH MISC MISCELLANE PRN (04:36)
[2020-03-09] MEDS ORDERED: Potassium Replacement Protocol 1 EACH MISC MISCELLANE PRN (04:37)
[2020-03-09] MEDS: MAGNESIUM SULFATE-D5W PMX 1 GM in DEXTROSE/WATER 1 100ML.BAG IVPB SCH ×3 (06:56→09:13)
[2020-03-09] MEDS: POTASSIUM CHLORIDE ER 20 MEQ TAB.ER PO SCH ×2 (06:56→07:44)
[2020-03-09] MEDS: LACTULOSE 20 GM/30 ML CUP PO SCH ×3 (07:43→20:53)
[2020-03-09] MEDS: MULTIVITAMINS, THERA 1 EACH TAB PO SCH (07:44)
[2020-03-09] MEDS: THIAMINE 100 MG TAB PO SCH ×2 (07:44→17:19)
[2020-03-09] MEDS: PANTOPRAZOLE 40 MG/10 ML VIAL IVP SCH ×2 (07:44→20:53)
[2020-03-09] MEDS: FOLIC ACID 1 MG TAB PO SCH (07:44)
[2020-03-09] MEDS: MAGNESIUM OXIDE 400 MG TAB PO SCH ×2 (07:44→20:53)
--- NOTE | 2020-03-09 13:16 | P.PN ---
Subjective Progress Note Date: 03/09/20 Principal diagnosis: GI bleed, erosive gastritis, alcoholism Patient was brought to the hospital by ambulance after throwing up blood, patient has a known history of chronic alcohol abuse and use, with significant esophageal varices. Was admitted yesterday to the intensive care unit GI scoped patient yesterday afternoon no evidence of recurrent bleeding at that time no Sandostatin or vasopressin injections necessary, stool has not demonstrated black or tarry as late no blood in the urine hemoglobin is 11 Objective - Vital Signs Vital signs: Vital Signs Temp 98.3 F 03/09/20 07:00 Pulse 88 03/09/20 07:00 Resp 20 03/09/20 07:00 BP 128/75 03/09/20 07:00 Pulse Ox 95 03/09/20 07:00 Intake & Output 03/08/20 03/09/20 03/09/20 18:59 06:59 18:59 Intake Total 2452.083 1200 Output Total 1075 950 Balance 1377.083 250 Weight 78.6 kg Intake: IV 1300 1200 Sodium Chloride 0.9% 1, 1100 1200 000 ml @ 100 mls/hr IV . Q10H [facility] Rx#:[id number] Intake, IV Titration 512.083 Amount Octreotide 500 mcg In 212.083 Sodium Chloride 0.9% 250 ml @ 50 MCG/HR 25 mls/hr IV .Q10H [facility] Rx#: [id number] Potassium Chloride 10 meq 300 In Water For Injection 1 100ml.bag @ 100 mls/hr IVPB Q1HR [facility] Rx#: [id number] Oral 640 Output: Urine 1075 950 Other: Voiding Method Urinal - Exam General: [Patient awake, alert and oriented times 3. Patient in no acute distress.] HEENT: [PERRL. EOMI. No pharyngeal erythema or exudate.] Neck: [No adenopathy.] Cardiac: [Heart regular in rate and rhythm. No S3. No S4. No clicks, rubs. No murmur.] Lungs: [Clear to auscultation bilaterally.] Abdomen: [No mass. No organomegaly. Bowel sounds presnt and normoactive in all 4 quadrants. Large of liver minimal ascites Extremes: [No edema no cyanosis no claudication normal pulses] : Normal male genitalia Musculoskeletal: [No joint erythema, edema or tenderness.] Skin: [No rash.] Neurologic: [No lateralizing deficits. CN II - XII grossly intact.] Lymphatic: [No adenopathy.] - Labs CBC & Chem 7: 03/09/20 03:47 03/09/20 03:47 Labs: Abnormal Lab Results - Last 24 Hours (Table) 03/09/20 03/09/20 Range/Units 03:47 03:47 WBC 2.4 L (3.8-10.6) k/uL RBC 3.46 L (4.30-5.90) m/uL Hgb 10.4 L (13.0-17.5) gm/dL Hct 32.4 L (39.0-53.0) % RDW 18.1 H (11.5-15.5) % Plt Count 51 L (150-450) k/uL Lymphocytes # 0.5 L (1.0-4.8) k/uL Sodium 135 L (137-145) mmol/L Potassium 3.4 L (3.5-5.1) mmol/L BUN 5 L (9-20) mg/dL Creatinine 0.51 L (0.66-1.25) mg/dL Glucose 100 H (74-99) mg/dL Calcium 7.6 L (8.4-10.2) mg/dL Magnesium 1.3 L (1.6-2.3) mg/dL Assessment and Plan (1) Hematemesis Current Visit: Yes Status: Acute Code(s): K92.0 - HEMATEMESIS SNOMED Code(s): 7131716 (2) Hypokalemia Current Visit: Yes Status: Acute Code(s): E87.6 - HYPOKALEMIA SNOMED Code(s): 44575054 (3) Increased ammonia level Current Visit: Yes Status: Acute Code(s): R79.89 - OTHER SPECIFIED ABNORMAL FINDINGS OF BLOOD CHEMISTRY SNOMED Code(s): 237990929 (4) Nausea & vomiting Current Visit: Yes Status: Acute Code(s): R11.2 - NAUSEA WITH VOMITING, UNSPECIFIED SNOMED Code(s): 84707472 (5) Upper GI bleeding Current Visit: Yes Status: Acute Code(s): K92.2 - GASTROINTESTINAL HEMORRHAGE, UNSPECIFIED SNOMED Code(s): 23501235 (6) Upper abdominal pain Current Visit: Yes Status: Acute Code(s): R10.10 - UPPER ABDOMINAL PAIN, UNSPECIFIED SNOMED Code(s): 67075691 (7) Abdominal pain Current Visit: No Status: Acute Code(s): R10.9 - UNSPECIFIED ABDOMINAL PAIN SNOMED Code(s): 00791182 Plan: Patient improved EGD unremarkable at this time Potassium levels stabilized Will continue rehydration Will continue CIWA protocol Patient had stated that he was diagnosed with possible pancreatic cancer at another hospital at this time there is no evidence to that fact we'll continue to investigate
[2020-03-09] MEDS: ONDANSETRON 4 MG/2 ML VIAL IVP PRN (21:02)
[2020-03-09] MEDS: NICOTINE 21MG/24HR PATCH TRANSDERM SCH (21:12)
--- NOTE | 2020-03-09 21:34 | P.PN ---
Subjective Progress Note Date: 03/09/20 Principal diagnosis: hematemesis, decompensated alcoholic cirrhosis the patient is seen lying in bed. He is tolerating his diet. No abdominal pain except for chronic pain he suffers in relation to umbilical hernia. No signs or symptoms of GI bleed. Objective - Vital Signs Vital signs: Vital Signs Temp 98.3 F 03/09/20 15:00 Pulse 84 03/09/20 15:00 Resp 18 03/09/20 15:00 BP 134/81 03/09/20 15:00 Pulse Ox 96 03/09/20 15:00 Intake & Output 03/09/20 03/09/20 03/10/20 06:59 18:59 06:59 Intake Total 1200 Output Total 950 2000 Balance 250 -2000 Weight 78.6 kg Intake: IV 1200 Sodium Chloride 0.9% 1, 1200 000 ml @ 100 mls/hr IV . Q10H [facility] Rx#:[id number] Output: Urine 950 2000 Other: Voiding Method Urinal - Exam On physical examination, patient appears comfortable in no apparent distress. HEAD: Normocephalic, atraumatic. EYES: No scleral icterus. No conjunctival injection. MOUTH: No lesions, tongue midline. NECK: Trachea midline, no gross abnormalities. ABDOMEN: Soft, mildly tender, mildly distended with large infraumbilical hernia. Bowel sounds are positive. No organomegaly. No guarding or rigidity. EXTREMITIES: No pedal edema. SKIN: No rashes, no jaundice. NEUROLOGIC: Alert and oriented x3. No focal deficits. - Labs CBC & Chem 7: 03/09/20 03:47 03/09/20 03:47 Labs: Abnormal Lab Results - Last 24 Hours (Table) 03/09/20 03/09/20 Range/Units 03:47 03:47 WBC 2.4 L (3.8-10.6) k/uL RBC 3.46 L (4.30-5.90) m/uL Hgb 10.4 L (13.0-17.5) gm/dL Hct 32.4 L (39.0-53.0) % RDW 18.1 H (11.5-15.5) % Plt Count 51 L (150-450) k/uL Lymphocytes # 0.5 L (1.0-4.8) k/uL Sodium 135 L (137-145) mmol/L Potassium 3.4 L (3.5-5.1) mmol/L BUN 5 L (9-20) mg/dL Creatinine 0.51 L (0.66-1.25) mg/dL Glucose 100 H (74-99) mg/dL Calcium 7.6 L (8.4-10.2) mg/dL Magnesium 1.3 L (1.6-2.3) mg/dL Assessment and Plan Assessment: 1. Hematemesis: Patient with a known history of decompensated alcoholic cirrhosis who presents with episodes of hematemesis. Patient has previously had varices which were banded in a known history of portal hypertensive gastropathy. Hematemesis in the setting of multiple episodes of vomiting. EGD was performed withMild portal hypertensive gastropathy noted but no evidence of bleeding or pathology to explain symptoms 2. Decompensated alcoholic cirrhosis. 3. Patient reports a history of pancreatic cancer diagnosed at [facility] in [place]. 4. Other medical comorbidities for primary team. Plan: Supportive care sodium restricted diet continue to monitor hemoglobin and hematocrit and transfuse as needed Continue Protonix therapy Alcohol abstinence Continue to monitor and treat for signs and symptoms of alcohol withdrawal Thank you for allowing us to participate in the care of the patient
[2020-03-09 23:43] VITALS: RESP 16
[2020-03-10 00:53] VITALS: PULSE 80
[2020-03-10] MEDS: HYDROmorphone 0.5 MG/0.5 ML SYRINGE IVP PRN ×3 (02:25→08:31)
[2020-03-10] MEDS: LORazepam 2 MG/ML INJ IV PRN (03:41)
[2020-03-10] MEDS: LACTULOSE 20 GM/30 ML CUP PO SCH (07:49)
[2020-03-10] MEDS: PANTOPRAZOLE 40 MG/10 ML VIAL IVP SCH (07:49)
[2020-03-10] MEDS: FOLIC ACID 1 MG TAB PO SCH (07:50)
[2020-03-10] MEDS: THIAMINE 100 MG TAB PO SCH (07:50)
[2020-03-10] MEDS: MULTIVITAMINS, THERA 1 EACH TAB PO SCH (07:50)
[2020-03-10] MEDS: NICOTINE 21MG/24HR PATCH TRANSDERM SCH (07:50)
[2020-03-10] MEDS: SODIUM CHLORIDE 0.9% 1,000 ML IV SCH (07:50)
[2020-03-10] MEDS: MAGNESIUM OXIDE 400 MG TAB PO SCH (07:50)
[2020-03-10 08:04] VITALS: BP 136/77; TEMP 98.1
--- NOTE | 2020-03-10 12:22 | P.PN ---
Subjective Progress Note Date: 03/10/20 Principal diagnosis: GI bleed, erosive gastritis, alcoholism Patient was brought to the hospital by ambulance after throwing up blood, patient has a known history of chronic alcohol abuse and use, with significant esophageal varices. Was admitted two days ago to the intensive care unit GI scoped patient the day before yesterday afternoon no evidence of recurrent bleeding at that time no Sandostatin or vasopressin injections necessary, stool has not demonstrated black or tarry as late no blood in the urine hemoglobin is 10, suspect some hemodilution Objective - Vital Signs Vital signs: Vital Signs Temp 98.1 F 03/10/20 07:00 Pulse 80 03/10/20 07:00 Resp 16 03/10/20 07:00 BP 136/77 03/10/20 07:00 Pulse Ox 96 03/10/20 07:00 Intake & Output 03/09/20 03/10/20 03/10/20 18:59 06:59 18:59 Intake Total 296 Output Total 1999 1000 Balance -1999 -999 296 Intake: Oral 296 Output: Urine 1999 999 Other: Voiding Method Urinal Urinal # Voids 1 - Exam General: [Patient awake, alert and oriented times 3. Patient in no acute distress.] HEENT: [PERRL. EOMI. No pharyngeal erythema or exudate.] Neck: [No adenopathy.] Cardiac: [Heart regular in rate and rhythm. No S3. No S4. No clicks, rubs. No murmur.] Lungs: [Clear to auscultation bilaterally.] Abdomen: [No mass. No organomegaly. Bowel sounds presnt and normoactive in all 4 quadrants. Large of liver minimal ascites Extremes: [No edema no cyanosis no claudication normal pulses] : Normal male genitalia Musculoskeletal: [No joint erythema, edema or tenderness.] Skin: [No rash.] Neurologic: [No lateralizing deficits. CN II - XII grossly intact.] Lymphatic: [No adenopathy.] - Labs CBC & Chem 7: 03/09/20 03:47 03/09/20 03:47 Assessment and Plan (1) Hematemesis Current Visit: Yes Status: Acute Code(s): K92.0 - HEMATEMESIS SNOMED Code(s): 5497126 (2) Hypokalemia Current Visit: Yes Status: Acute Code(s): E87.6 - HYPOKALEMIA SNOMED Code(s): 94297826 (3) Increased ammonia level Current Visit: Yes Status: Acute Code(s): R79.89 - OTHER SPECIFIED ABNORMAL FINDINGS OF BLOOD CHEMISTRY SNOMED Code(s): 112043265 (4) Nausea & vomiting Current Visit: Yes Status: Acute Code(s): R11.2 - NAUSEA WITH VOMITING, UNSPECIFIED SNOMED Code(s): 36160007 (5) Upper GI bleeding Current Visit: Yes Status: Acute Code(s): K92.2 - GASTROINTESTINAL HEMORRHAGE, UNSPECIFIED SNOMED Code(s): 50070523 (6) Upper abdominal pain Current Visit: Yes Status: Acute Code(s): R10.10 - UPPER ABDOMINAL PAIN, UNSPECIFIED SNOMED Code(s): 96824451 (7) Abdominal pain Current Visit: No Status: Acute Code(s): R10.9 - UNSPECIFIED ABDOMINAL PAIN SNOMED Code(s): 88439929 Plan: Patient improved EGD unremarkable at this time Potassium levels stabilized Will continue rehydration Will continue CIWA protocol Patient had stated that he was diagnosed with possible pancreatic cancer at another hospital at this time there is no evidence to that fact we'll continue to investigate Time with Patient: Greater than 30
--- NOTE | 2020-03-10 13:00 | P.PN ---
Subjective Progress Note Date: 03/10/20 Principal diagnosis: hematemesis, decompensated alcoholic cirrhosis The patient is seen lying in bed fully dressed. No further signs or symptoms GI bleeding. He has tolerated his diet. He is asking for discharge. Objective - Vital Signs Vital signs: Vital Signs Temp 98.1 F 03/10/20 07:00 Pulse 80 03/10/20 07:00 Resp 16 03/10/20 07:00 BP 136/77 03/10/20 07:00 Pulse Ox 96 03/10/20 07:00 Intake & Output 03/09/20 03/10/20 03/10/20 18:59 06:59 18:59 Intake Total 296 Output Total 1999 1000 Balance -1999 -999 296 Intake: Oral 296 Output: Urine 1999 999 Other: Voiding Method Urinal Urinal # Voids 1 - Exam On physical examination, patient appears comfortable in no apparent distress. HEAD: Normocephalic, atraumatic. EYES: No scleral icterus. No conjunctival injection. MOUTH: No lesions, tongue midline. NECK: Trachea midline, no gross abnormalities. ABDOMEN: Soft, mildly tender, mildly distended with large infraumbilical hernia. Bowel sounds are positive. No organomegaly. No guarding or rigidity. EXTREMITIES: No pedal edema. SKIN: No rashes, no jaundice. NEUROLOGIC: Alert and oriented x3. No focal deficits. - Labs CBC & Chem 7: 03/09/20 03:47 03/09/20 03:47 Assessment and Plan Assessment: 1. Hematemesis: Patient with a known history of decompensated alcoholic cirrhosis who presents with episodes of hematemesis. Patient has previously had varices which were banded in a known history of portal hypertensive gastropathy. Hematemesis in the setting of multiple episodes of vomiting. EGD was performed withMild portal hypertensive gastropathy noted but no evidence of bleeding or pathology to explain symptoms 2. Decompensated alcoholic cirrhosis. 3. Patient reports a history of pancreatic cancer diagnosed at [facility] in [place]. 4. Other medical comorbidities for primary team. Plan: Supportive care sodium restricted diet continue to monitor hemoglobin and hematocrit and transfuse as needed Continue Protonix therapy Alcohol abstinence Continue to monitor and treat for signs and symptoms of alcohol withdrawal Thank you for allowing us to participate in the care of the patient
== END 2020-03-10 14:04 | disposition home or self-care (01) | DRG 378 ==
LOC: EC 15:41 → 3SCARD 18:34 → 2SICU 21:41 → OBSVTOIN 22:35 → 2SICU 03-08 01:09 → 4SSUR 03-09 06:31
PROVIDERS: ADMIT Family Medicine; ATTEND Family Medicine
PROC: 0DJ08ZZ Inspection of Upper Intestinal Tract, Via Natural or Artificial Opening Endoscopic (ICD-10-PCS; principal; 2020-03-08 07:30)
DX: K92.0 Hematemesis (principal); C25.9 Malignant neoplasm of pancreas, unspecified; K76.6 Portal hypertension; I85.10 Secondary esophageal varices without bleeding; E87.6 Hypokalemia; F17.200 Nicotine dependence, unspecified, uncomplicated; F31.9 Bipolar disorder, unspecified; F43.10 Post-traumatic stress disorder, unspecified; G89.29 Other chronic pain; F10.20 Alcohol dependence, uncomplicated; K70.10 Alcoholic hepatitis without ascites; K70.30 Alcoholic cirrhosis of liver without ascites; D64.9 Anemia, unspecified; K42.9 Umbilical hernia without obstruction or gangrene; J45.909 Unspecified asthma, uncomplicated; K29.60 Other gastritis without bleeding; K31.89 Other diseases of stomach and duodenum; Z79.899 Other long term (current) drug therapy; Z87.19 Personal history of other diseases of the digestive system; Z87.442 Personal history of urinary calculi; Z95.810 Presence of automatic (implantable) cardiac defibrillator; Z91.19 Patient's noncompliance with other medical treatment and regimen; Z87.01 Personal history of pneumonia (recurrent); Z86.14 Personal history of Methicillin resistant Staphylococcus aureus infection; Z90.49 Acquired absence of other specified parts of digestive tract; Z98.890 Other specified postprocedural states; Z82.49 Family history of ischemic heart disease and other diseases of the circulatory system
CPT/HCPCS: 36415; 43235; 80048; 80053; 82140; 83690; 83735; 84484; 85025; 85610; 85730; 86850; 86900; 86901; 93005; 96365; 96366; 96367; 96372; 96375; 96376; 99291

== ENCOUNTER → 2023-09-15 | Outpatient (CLI) | payer OTHER ==
--- NOTE | 2023-09-15 16:43 | XR ---
EXAMINATION TYPE: XR chest 2V DATE OF EXAM: 09/15/2023 4:04 PM CLINICAL INDICATION:Male, 48 years old with history of R06.02 CHXR PA LAT SHORTNESS OF BREATH; [facility] COMPARISON: 02/05/2019. TECHNIQUE: XR chest 2V Frontal and lateral views of the chest. FINDINGS: Lungs/Pleura: There is flattening of the diaphragm with increased lucency of the lungs. No evidence o f pneumothorax, pleural effusion or focal consolidation. Pulmonary vascularity: Unremarkable. Heart/mediastinum: Cardiomediastinal silhouette is unremarkable. Musculoskeletal: No acute osseous pathology. IMPRESSION: 1. No acute cardiopulmonary disease process. 2. COPD changes.
== END | disposition home or self-care (01) ==
LOC: RADXRMAIN 15:53
PROVIDERS: ATTEND Family Medicine
DX: J44.9 Chronic obstructive pulmonary disease, unspecified (principal)
CPT/HCPCS: 71046

== ENCOUNTER → 2023-09-15 | Outpatient (CLI) | payer OTHER ==
[2023-09-15 17:13] LABS: INR 1.1 (<1.2); Prothrombin Time 11.7 sec (10.0-12.5)
[2023-09-16 02:23] LABS: Basophils # (A) 0.13 X 10*3/uL (0.00-0.10); Basophils % (A) 1.2 %; Eosinophils % (A) 6.7 %; HGB 13.4 g/dL (13.0-17.0); Lymphocytes # (A) 1.23 X 10*3/uL (0.90-5.00); Lymphocytes % (A) 11.8 %; MCH 34.3 pg (27.0-32.0); MCHC 33.5 g/dL (32.0-37.0); MCV 102.3 FL (80.0-97.0); Mean Platelet Volume 12.6 FL (9.5-12.2); Monocytes # (A) 1.04 X 10*3/uL (0.20-1.00); NRBC Per 100 WBC 0 X 10*3/uL (0.00-0.01); Neutrophils # (A) 7.29 X 10*3/uL (1.80-7.70); Neutrophils % (A) 70.1 %; Platelet Count 115 X 10*3/uL (140-440); RBC 3.91 X 10*6/uL (4.40-5.60); RDW 15.3 % (11.5-14.5); WBC 10.41 X 10*3/uL (4.50-10.00)
[2023-09-16 02:58] LABS: ALT 23 U/L (10-49); AST 35 U/L (14-35); Albumin 3.9 g/dL (3.8-4.9); Albumin/Globulin Ratio 1.86 Ratio (1.60-3.17); Alkaline Phosphatase 82 U/L (41-126); Amylase 70 U/L (23-121); Calcium 9.5 mg/dL (8.7-10.3); Carbon Dioxide 21.3 mmol/L (21.6-31.8); Chloride 109 mmol/L (96-109); Globulin 2.1 g/dL (1.6-3.3); Glucose 102 mg/dL (70-110); Potassium 3.6 mmol/L (3.5-5.5); Sodium 143 mmol/L (135-145); Total Bilirubin 1.2 mg/dL (0.3-1.2)
== END | disposition home or self-care (01) ==
LOC: LABWHC1 15:29
PROVIDERS: ATTEND Family Medicine
DX: Z00.00 Encounter for general adult medical examination without abnormal findings (principal); I10 Essential (primary) hypertension; F10.10 Alcohol abuse, uncomplicated; K21.9 Gastro-esophageal reflux disease without esophagitis; K76.9 Liver disease, unspecified; R06.02 Shortness of breath; R19.09 Other intra-abdominal and pelvic swelling, mass and lump
CPT/HCPCS: 36415; 80053; 82140; 82150; 85025; 85610

== ENCOUNTER 2023-10-20 11:12 | Inpatient (IN) | payer OTHER ==
--- NOTE | 2023-10-20 11:40 | ED ---
Abdominal Pain HPI - General Source: patient, family, RN notes reviewed Mode of arrival: wheelchair Limitations: physical limitation <Cierra Lyons - Last Filed: 10/20/23 11:46> - General Source: RN notes reviewed, old records reviewed Mode of arrival: wheelchair Limitations: physical limitation - History of Present Illness MD Complaint: abdominal pain, other (bleeding from surgical site) Location: epigastric Radiation: epigastric Migration to: no migration, epigastric Severity: moderate Severity scale (1-10): 7 Quality: sharp Consistency: constant Improves With: nothing Worsens With: nothing Associated Symptoms: nausea, vomiting Treatments Prior to Arrival: other (0) <Dimitrios Roth - Last Filed: 10/20/23 17:19> - General Chief Complaint: Abdominal Pain Stated Complaint: Post op incision bleeding Time Seen by Provider: 10/20/23 11:39 - History of Present Illness Initial Comments: Quick Note: This is a 48-year-old male who presents to the emergency department for abdominal pain and problems related to his hernia incision. Patient had a hernia repair at [facility] on 10/13 and states that he had mild drainage from the incision after the surgery. However last night the drainage, pain, and fevers got much worse. Reports fevers up to 101 degrees F. (Cierra Lyons) This is a 48-year-old male to the ER for evaluation of abdominal pain with persistent abdominal pain and recent hernia repair. Patient has significant amount of drainage from his abdomen which she believes is bloody. Possible fevers at home (Dimitrios Roth) - Related Data Home Medications Medication Instructions Recorded Confirmed Folic Acid 1 mg PO DAILY 10/28/19 03/07/20 Magnesium Oxide [Mag-Ox] 400 mg PO BID 12/08/19 03/07/20 Albuterol Sulfate [Ventolin HFA] 1 puff INHALATION RT-Q6H PRN 12/26/19 03/07/20 Furosemide [Lasix] 40 mg PO DAILY 12/26/19 03/07/20 Hydrocodone/Acetaminophen [[place] 1 tab PO TID PRN 12/26/19 03/07/20 7.5-325] Lactulose 30 gm PO DAILY PRN 12/26/19 03/07/20 Pantoprazole [Protonix] 40 mg PO DAILY 12/26/19 03/07/20 Thiamine [Vitamin B-1] 100 mg PO DAILY 12/26/19 03/07/20 Multivitamins, Thera [Multivitamin 1 tab PO DAILY 03/07/20 03/07/20 (formulary)] Previous Rx's Medication Instructions Recorded HYDROcodone/APAP 7.5-325MG [[place] 1 tab PO Q6HR PRN #60 tab 03/10/20 7.5-325] Allergies Allergy/AdvReac Type Severity Reaction Status Date / Time No Known Allergies Allergy Verified 03/07/20 18:01 Review of Systems ROS Other: All systems not noted in ROS Statement are negative. <Cierra Lyons - Last Filed: 10/20/23 11:46> ROS Other: All systems not noted in ROS Statement are negative. <Dimitrios Roth - Last Filed: 10/20/23 17:19> ROS Statement: Those systems with pertinent positive or pertinent negative responses have been documented in the HPI. Past Medical History Past Medical History: Asthma, Cancer, GI Bleed, Liver Disease, Pneumonia, Renal Disease, Skin Disorder Additional Past Medical History / Comment(s): Liver cirrhosis, portal HTN, abdominal ascities, pancreatitis, upper and lower GI bleeds, bleeding ulcers, esophageal varicies-banded, thrombocytopemia, chronic anemia, gallstones, nephrolithiasis/hematuria, L inguinal hernia, psoriasis; paracentesis, umbilical hernia, left foot injury, pancreatic CA History of Any Multi-Drug Resistant Organisms: MRSA Date of last positivie culture/infection: 12/09/13 MDRO Source:: Right first finger Past Surgical History: Appendectomy, Cholecystectomy, Hernia Repair, Orthopedic Surgery Additional Past Surgical History / Comment(s): EGDs/varicies banding/colonoscopy, paracentesis, right hand tendon repair, right knee arthroscopy, cystoscopy for kidney stone removal, right hand ring finger s urgery. surgery for umbilical hernia, Hernia repair on 10/13 at [facility] [place]. Past Anesthesia/Blood Transfusion Reactions: Previous Problems w/ Anesthesia, Motion Sickness Additional Past Anesthesia/Blood Transfusion Reaction / Comment(s): Woke up during scope procedure. Past Psychological History: Anxiety, Bipolar, Depression, PTSD Smoking Status: Current every day smoker Past Alcohol Use History: Abuse, Daily Past Drug Use History: Cocaine, Heroin, Marijuana - Past Family History Mother Family Medical History: No Reported History Additional Family Medical History / Comment(s): Mother has health issues from a MVA-pt did not elaborate. Father Family Medical History: Vascular Disorder Additional Family Medical History / Comment(s): Prostate issues grandpa. Brain aneurysm father. <Cierra Lyons - Last Filed: 10/20/23 11:46> General Exam Limitations: physical limitation <Cierra Lyons - Last Filed: 10/20/23 11:46> General appearance: alert, in no apparent distress Head exam: Present: atraumatic, normocephalic, normal inspection Eye exam: Present: normal appearance, PERRL, EOMI. Absent: scleral icterus, conjunctival injection, periorbital swelling ENT exam: Present: normal exam, mucous membranes moist Neck exam: Present: normal inspection. Absent: tenderness, meningismus, lymphadenopathy Respiratory exam: Present: normal lung sounds bilaterally. Absent: respiratory distress, wheezes, rales, rhonchi, stridor Cardiovascular Exam: Present: regular rate, normal rhythm, normal heart sounds. Absent: systolic murmur, diastolic murmur, rubs, gallop, clicks GI/Abdominal exam: Present: soft, normal bowel sounds. Absent: distended, tenderness, guarding, rebound, rigid Extremities exam: Present: normal inspection, full ROM, normal capillary refill. Absent: tenderness, pedal edema, joint swelling, calf tenderness Back exam: Present: normal inspection Neurological exam: Present: alert, oriented X3, CN II-XII intact Psychiatric exam: Present: normal affect, normal mood Skin exam: Present: warm, dry, intact, normal color. Absent: rash <Dimitrios Roth - Last Filed: 10/20/23 17:19> - General Exam Comments Initial Comments: Visual Physical Exam Vital signs reviewed General: Well-appearing, nontoxic, no acute distress. Head: Normocephalic, atraumatic Eyes: PERRLA, EOMI ENT: Airway patent Chest: Nonlabored breathing Skin: No visual rash, normal skin tone Neuro: Alert and oriented 3 Musculoskeletal: No gross abnormalities (Cierra Lyons) Course <Dimitrios Roth - Last Filed: 10/20/23 17:19> Vital Signs 10/20/23 10/20/23 10/20/23 11:29 13:46 15:37 Temperature 98.5 F 98.5 F Pulse Rate 67 72 67 Respiratory 18 18 16 Rate Blood Pressure 131/61 103/59 O2 Sat by Pulse 100 98 98 Oximetry 10/20/23 16:54 Temperature Pulse Rate 69 Respiratory 16 Rate Blood Pressure 109/59 O2 Sat by Pulse 97 Oximetry - Reevaluation(s) Reevaluation #1: 10/20/23 17:17 Records reviewed (Dimitrios Roth) Reevaluation #2: 10/20/23 17:17 Continues to have blood expressed from incision site (Dimitrios Roth) Reevaluation #3: 10/20/23 17:17 Patient informed of results questions answered (Dimitrios Roth) Reevaluation #4: Was pt. sent in by a medical professional or institution (, PA, CITY DIRECTOR, urgent care, hospital, or fpc...) When possible be specific @ -no Did you speak to anyone other than the patient for history (EMS, parent, family, police, friend...)? What history was obtained from this source @ -no Did you review nursing and triage notes (agree or disagree)? Why? @ -agree Are old charts reviewed (outside hosp., previous admission, EMS record, old EKG, old radiological studies, urgent care reports/EKG's, fpc records)? Report findings @ -yes Differential Diagnosis (chest pain, altered mental status, abdominal pain women, abdominal pain men, vaginal bleeding, weakness, fever, dyspnea, syncope, headache, dizziness, GI bleed, back pain, seizure, CVA, palpatations, mental health, musculoskeletal)? @ -prior EKG interpreted by me (3pts min.). @ -no X-rays interpreted by me (1pt min.). @ -yes negative for acute disease CT interpreted by me (1pt min.). @ -no U/S interpreted by me (1pt. min.). @ -no What testing was considered but not performed or refused? (CT, X-rays, U/S, labs)? Why? @ -none What meds were considered but not given or refused? Why? @ -none Did you discuss the management of the patient with other professionals (professionals i.e. , PA, CITY DIRECTOR, lab, RT, psych nurse, social services director, garment parts cutter hand, teacher, biological technical officer, case operator)? Give summary @ -no Was smoking cessation discussed for >3mins.? @ -no Were there social determinants of health that impacted care today? How? (Homelessness, low income, unemployed, alcoholism, drug addiction, transportation, low edu. Level, literacy, decrease access to med. care, chcf, rehab)? @ -none Was there de-escalation of care discussed even if they declined (Discuss DNR or withdrawal of care, Hospice)? DNR status @ -no What co-morbidities impacted this encounter? (DM, HTN, Smoking, COPD, CAD, Cancer, CVA, ARF, Chemo, Hep., AIDS, mental health diagnosis, sleep apnea, morbid obesity)? @ -none Was patient admitted / discharged? Hospital course, mention meds given and route, prescriptions, significant lab abnormalities, going to OR and other pertinent info. @ - 48-year-old male to ER for a couple days of finger pain while playing catch, patient does have finger pain and swelling although no significant findings of fracture or dislocation. Patient likely had dislocated and rel ocated digit, patient has no other complaints currently can be discharged home Discharge Was critical care preformed (if so, how long)? @ -no Undiagnosed new problem with uncertain prognosis? @ -no Drug Therapy requiring intensive monitoring for toxicity (Heparin, Nitro, Insulin, Cardizem)? @ -no Were any procedures done? @ -no Diagnosis/sy finger sprain, finger pain mptom? @ - Acute, or Chronic, or Acute on Chronic? @ -Acute Uncomplicated (without systemic symptoms) or Complicated (systemic symptoms)? @ -Complicated Side effects of treatment? @ -no Exacerbation, Progression, or Severe Exacerbation? @ -exacerbation Poses a threat to life or bodily function? How? (Chest pain, [place], VA, pneumonia, PE, COPD, DKA, ARF, appy, cholecystitis, CVA, Diverticulitis, Homicidal, Suicidal, threat to staff... and all critical care pts) @ -no (Dimitrios Roth) Reevaluation #5: Differential Abdominal Pain Men: Appendicitis, cholecystitis, diverticulosis, ischemic bowel, pancreatitis, hepatitis, UTI, gastroenteritis, AAA, incarcerated hernia, bowel obstruction, constipation, inflammatory bowel, hepatitis, peptic ulcer disease, splenic infarction, perforated viscus, testicular torsion, this is not meant to be an all-inclusive list (Dimitrios Roth) - Consultations Consultation #1: With Dr. Lizarraga who will see this patient in consult (Dimitrios Roth) Consultation #2: Dr. Meza who will see this patient (Dimitrios Roth) Medical Decision Making <Cierra Lyons - Last Filed: 10/20/23 11:46> - Lab Data Result diagrams: 10/20/23 14:40 10/20/23 14:25 - Radiology Data Radiology results: report reviewed (CT of the Abdomen and Pelvis is negative for acute disease), image reviewed <Dimitrios Roth - Last Filed: 10/20/23 17:19> - Medical Decision Making I performed the QuickNote portion of this chart. Signed Cierra Lyons PA-C. (Cierra Lyons) 48 male postoperative bleeding, patient is hemodynamically stable currently and will admit for current continued monitoring (Dimitrios Roth) - Lab Data Lab Results 10/20/23 10/20/23 10/20/23 Range/Units 11:42 11:42 11:42 WBC 7.5 (3.8-10.6) k/uL RBC 3.17 L (4.30-5.90) m/uL Hgb 10.4 L (13.0-17.5) gm/dL Hct 33.3 L (39.0-53.0) % MCV 104.8 H (80.0-100.0) fL MCH 32.7 (25.0-35.0) pg MCHC 31.2 (31.0-37.0) g/dL RDW 16.8 H (11.5-15.5) % Plt Count 209 (150-450) k/uL MPV 10.3 Neutrophils % 70 % Lymphocytes % 15 % Monocytes % 8 % Eosinophils % 4 % Basophils % 1 % Neutrophils # 5.2 (1.3-7.7) k/uL Lymphocytes # 1.1 (1.0-4.8) k/uL Monocytes # 0.6 (0-1.0) k/uL Eosinophils # 0.3 (0-0.7) k/uL Basophils # 0.1 (0-0.2) k/uL Hypochromasia Marked Poikilocytosis Slight Anisocytosis Slight Macrocytosis Moderate PT (10.0-12.5) sec INR (<1.2) APTT (22.0-30.0) sec Sodium 137 (137-145) mmol/L Potassium 3.8 (3.5-5.1) mmol/L Chloride 114 H (98-107) mmol/L Carbon Dioxide 18 L (22-30) mmol/L Anion Gap 5 mmol/L BUN 9 (9-20) mg/dL Creatinine 0.54 L (0.66-1.25) mg/dL Est GFR (CKD-EPI)AfAm >90 (>60 ml/min/1.73 sqM) Est GFR (CKD-EPI)NonAf >90 (>60 ml/min/1.73 sqM) Glucose 100 H (74-99) mg/dL Plasma Lactic Acid Balaji 1.6 (0.7-2.0) mmol/L Calcium 8.3 L (8.4-10.2) mg/dL Magnesium (1.6-2.3) mg/dL Total Bilirubin 2.3 H (0.2-1.3) mg/dL AST 48 (17-59) U/L ALT 39 (4-49) U/L Alkaline Phosphatase 106 (38-126) U/L Troponin I (0.000-0.034) ng/mL Total Protein 5.8 L (6.3-8.2) g/dL Albumin 2.8 L (3.5-5.0) g/dL Amylase 52 (30-110) U/L Lipase 252 (23-300) U/L Blood Type Blood Type Recheck Bld Type Recheck Status Antibody Screen Spec Expiration Date 10/20/23 10/20/23 10/20/23 Range/Units 14:25 14:25 14:30 WBC (3.8-10.6) k/uL RBC (4.30-5.90) m/uL Hgb (13.0-17.5) gm/dL Hct (39.0-53.0) % MCV (80.0-100.0) fL MCH (25.0-35.0) pg MCHC (31.0-37.0) g/dL RDW (11.5-15.5) % Plt Count (150-450) k/uL MPV Neutrophils % % Lymphocytes % % Monocytes % % Eosinophils % % Basophils % % Neutrophils # (1.3-7.7) k/uL Lymphocytes # (1.0-4.8) k/uL Monocytes # (0-1.0) k/uL Eosinophils # (0-0.7) k/uL Basophils # (0-0.2) k/uL Hypochromasia Poikilocytosis Anisocytosis Macrocytosis PT (10.0-12.5) sec INR (<1.2) APTT (22.0-30.0) sec Sodium 135 L (137-145) mmol/L Potassium 3.5 (3.5-5.1) mmol/L Chloride 113 H (98-107) mmol/L Carbon Dioxide 18 L (22-30) mmol/L Anion Gap 4 mmol/L BUN 9 (9-20) mg/dL Creatinine 0.51 L (0.66-1.25) mg/dL Est GFR (CKD-EPI)AfAm >90 (>60 ml/min/1.73 sqM) Est GFR (CKD-EPI)NonAf >90 (>60 ml/min/1.73 sqM) Glucose 98 (74-99) mg/dL Plasma Lactic Acid Balaji (0.7-2.0) mmol/L Calcium 8.0 L (8.4-10.2) mg/dL Magnesium 1.6 (1.6-2.3) mg/dL Total Bilirubin 2.1 H (0.2-1.3) mg/dL AST 42 (17-59) U/L ALT 36 (4-49) U/L Alkaline Phosphatase 97 (38-126) U/L Troponin I <0.012 (0.000-0.034) ng/mL Total Protein 5.3 L (6.3-8.2) g/dL Albumin 2.5 L (3.5-5.0) g/dL Amylase (30-110) U/L Lipase (23-300) U/L Blood Type A Negative Blood Type Recheck A Neg Bld Type Recheck Status No Antibody Screen NEGATIVE Spec Expiration Date 10/23/2023232910/20/23 10/20/23 Range/Units 14:40 15:17 WBC 6.3 (3.8-10.6) k/uL RBC 2.85 L (4.30-5.90) m/uL Hgb 9.4 L (13.0-17.5) gm/dL Hct 29.8 L (39.0-53.0) % MCV 104.5 H (80.0-100.0) fL MCH 32.9 (25.0-35.0) pg MCHC 31.5 (31.0-37.0) g/dL RDW 16.6 H (11.5-15.5) % Plt Count 187 (150-450) k/uL MPV 10.4 Neutrophils % 71 % Lymphocytes % 16 % Monocytes % 7 % Eosinophils % 2 % Basophils % 1 % Neutrophils # 4.5 (1.3-7.7) k/uL Lymphocytes # 1.0 (1.0-4.8) k/uL Monocytes # 0.5 (0-1.0) k/uL Eosinophils # 0.1 (0-0.7) k/uL Basophils # 0.1 (0-0.2) k/uL Hypochromasia Marked Poikilocytosis Slight Anisocytosis Slight Macrocytosis Moderate PT 12.1 (10.0-12.5) sec INR 1.1 (<1.2) APTT 23.6 (22.0-30.0) sec Sodium (137-145) mmol/L Potassium (3.5-5.1) mmol/L Chloride (98-107) mmol/L Carbon Dioxide (22-30) mmol/L Anion Gap mmol/L BUN (9-20) mg/dL Creatinine (0.66-1.25) mg/dL Est GFR (CKD-EPI)AfAm (>60 ml/min/1.73 sqM) Est GFR (CKD-EPI)NonAf (>60 ml/min/1.73 sqM) Glucose (74-99) mg/dL Plasma Lactic Acid Balaji (0.7-2.0) mmol/L Calcium (8.4-10.2) mg/dL Magnesium (1.6-2.3) mg/dL Total Bilirubin (0.2-1.3) mg/dL AST (17-59) U/L ALT (4-49) U/L Alkaline Phosphatase (38-126) U/L Troponin I (0.000-0.034) ng/mL Total Protein (6.3-8.2) g/dL Albumin (3.5-5.0) g/dL Amylase (30-110) U/L Lipase (23-300) U/L Blood Type Blood Type Recheck Bld Type Recheck Status Antibody Screen Spec Expiration Date Disposition <Cierra Lyons - Last Filed: 10/20/23 11:46> Is patient prescribed a controlled substance at d/c from ED?: No Time of Disposition: 17:00 <Dimitrios Roth - Last Filed: 10/20/23 17:19> Clinical Impression: Postoperative bleeding from incision Disposition: ADMITTED IP TO THIS [facility] Condition: Serious Referrals: James Meza Jr, DO [Primary Care Provider] - 1-2 days
[2023-10-20 12:29] LABS: Anisocytosis Slight; Basophils # (A) 0.1 k/uL (0-0.2); Basophils % (A) 1 %; Eosinophils # (A) 0.3 k/uL (0-0.7); Eosinophils % (A) 4 %; HCT 33.3 % (39.0-53.0); HGB 10.4 gm/dL (13.0-17.5); Hypochromasia Marked; Lymphocytes # (A) 1.1 k/uL (1.0-4.8); Lymphocytes % (A) 15 %; MCH 32.7 pg (25.0-35.0); MCHC 31.2 g/dL (31.0-37.0); MCV 104.8 fL (80.0-100.0); Macrocytosis Moderate; Mean Platelet Volume 10.3; Monocytes # (A) 0.6 k/uL (0-1.0); Monocytes % (A) 8 %; Neutrophils # (A) 5.2 k/uL (1.3-7.7); Neutrophils % (A) 70 %; Platelet Count 209 k/uL (150-450); Poikilocytosis Slight; RBC 3.17 m/uL (4.30-5.90); RDW 16.8 % (11.5-15.5); WBC 7.5 k/uL (3.8-10.6)
[2023-10-20 12:47] LABS: ALT 39 U/L (4-49); AST 48 U/L (17-59); African American GFR (CKD) >90 (>60 ml/min/1.73 sqM); Albumin 2.8 g/dL (3.5-5.0); Alkaline Phosphatase 106 U/L (38-126); Amylase 52 U/L (30-110); Anion Gap 5 mmol/L; Blood Urea Nitrogen 9 mg/dL (9-20); Calcium 8.3 mg/dL (8.4-10.2); Carbon Dioxide 18 mmol/L (22-30); Chloride 114 mmol/L (98-107); Glucose 100 mg/dL (74-99); Lipase 252 U/L (23-300); Non-African American GFR(CKD) >90 (>60 ml/min/1.73 sqM); Potassium 3.8 mmol/L (3.5-5.1); Sodium 137 mmol/L (137-145); Total Bilirubin 2.3 mg/dL (0.2-1.3); Total Protein 5.8 g/dL (6.3-8.2)
[2023-10-20] MEDS: SODIUM CHLORIDE 0.9% 1,000 ML IV STA (14:08)
[2023-10-20] MEDS: PANTOPRAZOLE 40 MG/10 ML VIAL IVP STA (14:12)
[2023-10-20] MEDS: ONDANSETRON 4 MG/2 ML VIAL IVP STA (14:14)
[2023-10-20] MEDS: HYDROmorphone 0.5 MG/0.5 ML SYRINGE IVP STA ×2 (14:16→17:01)
[2023-10-20 14:56] LABS: Anisocytosis Slight; Basophils # (A) 0.1 k/uL (0-0.2); Basophils % (A) 1 %; Eosinophils # (A) 0.1 k/uL (0-0.7); Eosinophils % (A) 2 %; HCT 29.8 % (39.0-53.0); HGB 9.4 gm/dL (13.0-17.5); Hypochromasia Marked; Lymphocytes % (A) 16 %; MCH 32.9 pg (25.0-35.0); MCHC 31.5 g/dL (31.0-37.0); MCV 104.5 fL (80.0-100.0); Macrocytosis Moderate; Mean Platelet Volume 10.4; Monocytes # (A) 0.5 k/uL (0-1.0); Monocytes % (A) 7 %; Neutrophils # (A) 4.5 k/uL (1.3-7.7); Neutrophils % (A) 71 %; Platelet Count 187 k/uL (150-450); Poikilocytosis Slight; RBC 2.85 m/uL (4.30-5.90); RDW 16.6 % (11.5-15.5); WBC 6.3 k/uL (3.8-10.6)
[2023-10-20 15:09] LABS: ALT 36 U/L (4-49); AST 42 U/L (17-59); African American GFR (CKD) >90 (>60 ml/min/1.73 sqM); Albumin 2.5 g/dL (3.5-5.0); Alkaline Phosphatase 97 U/L (38-126); Anion Gap 4 mmol/L; Blood Urea Nitrogen 9 mg/dL (9-20); Carbon Dioxide 18 mmol/L (22-30); Chloride 113 mmol/L (98-107); Glucose 98 mg/dL (74-99); Magnesium 1.6 mg/dL (1.6-2.3); Non-African American GFR(CKD) >90 (>60 ml/min/1.73 sqM); Potassium 3.5 mmol/L (3.5-5.1); Sodium 135 mmol/L (137-145); Total Bilirubin 2.1 mg/dL (0.2-1.3); Total Protein 5.3 g/dL (6.3-8.2)
[2023-10-20 15:44] LABS: INR 1.1 (<1.2); Partial Thromboplastin Time 23.6 sec (22.0-30.0); Prothrombin Time 12.1 sec (10.0-12.5)
--- NOTE | 2023-10-20 16:25 | CT ---
EXAMINATION TYPE: CT abdomen pelvis w con CT DLP: 1294.6 mGycm, Automated exposure control for dose reduction was used. DATE OF EXAM: 10/20/2023 3:22 PM COMPARISON: CT abdomen pelvis most recent from CLINICAL INDICATION:Male, 48 years old with history of postop pain; post op hernia repair x2 weeks ag o, pain , fever, bleeding at sx site TECHNIQUE: Axial CT abdomen pelvis w con;Sagittal and coronal reformats were created on a separate w orkstation. Contrast used:100 mL of Isovue 300 with IV Contrast, (none if empty) Oral contrast used: without Oral Contrast (none if empty) FINDINGS: LOWER CHEST: Unremarkable ABDOMEN LIVER: Unremarkable GALLBLADDER AND BILE DUCTS: Surgical clips near the gallbladder fossa. PANCREAS: Unremarkable. SPLEEN: Unremarkable. ADRENAL GLANDS: Unremarkable. KIDNEYS AND URETERS: No evidence of hydronephrosis or renal calculus. The ureters are unremarkable. PELVIS BLADDER: Unremarkable REPRODUCTIVE: Unremarkable. ABDOMEN & PELVIS STOMACH AND BOWEL: Stomach and duodenum are unremarkable. No evidence of bowel obstruction. PERITONEUM/RETROPERITONEUM: Small amount of residual free fluid deep in the pelvis. No evidence of fr ee air. VASCULATURE: No evidence of aortic aneurysm. MUSCULOSKELETAL: No acute osseous abnormalities LYMPH NODES: No gross evidence for lymphadenopathy. SOFT TISSUE/ABDOMINAL WALL: Large seroma versus abscess identified in the anterior subcutaneous fat o f the abdomen. This measures 17 cm superior inferior and 24 cm T left 4 cm AP. Single bubble is seen on dependently suggesting this could represent abscess. IMPRESSION: 1. Anterior abdominal wall seroma/abscess. Appears to communicate with surgical site at its inferior most extent. Definitive diagnosis of abscess could be made with needle aspiration
[2023-10-20] MEDS ORDERED: ONDANSETRON 4 MG/2 ML VIAL IVP PRN (17:13)
[2023-10-20] MEDS ORDERED: NALOXONE 0.4 MG/ML 1 ML VIAL IV PRN (17:13)
[2023-10-20] MEDS: SODIUM CHLORIDE 0.9% 1,000 ML IV SCH (17:28)
--- NOTE | 2023-10-20 19:24 | P.GSCN ---
History of Present Illness Consult date: 10/20/23 History of present illness: CHIEF COMPLAINT: Postoperative bleeding from hernia repair HISTORY OF PRESENT ILLNESS: The patient is a 48 year old male who comes in with acute bleeding from his surgical incision as he had recent surgery done at outside facility within the last 1 to 2 weeks. He reports recent surgical history of complex abdominal wall hernia performed at outside facility. Patient reports having bleeding during the time of his procedure where he received 3 units of blood. Additionally, patient reports having two procedures for hernia repair done many years ago. He has pre-existing history of liver disease. He is not on blood thinners. At the time my assessment bleeding had stopped. General surgery is consulted due to moderate bleeding from his incision. Patient reports no mesh being placed at the time of his repair. PAST MEDICAL HISTORY: See list and reviewed PAST SURGICAL HISTORY: See list and reviewed MEDICATIONS: See list and reviewed ALLERGIES: See list and reviewed SOCIAL HISTORY: See list and reviewed FAMILY HISTORY: See list and reviewed REVIEW OF ORGAN SYSTEMS: CONSTITUTIONAL: No fevers or chills. No recent weight loss. EYES: Denies any trouble with vision. No glasses. HEENT: No difficulties with hearing. No nosebleeds. No difficulty swallowing. RESPIRATORY: Has tobacco abuse disorder. Has asthma. History of pneumonia. CARDIOVASCULAR: Has hypertensive heart disease. GASTROINTESTINAL: Has cirrhosis of the liver with esophageal varices including ascites. History of GI bleed. Has portal hypertension. History of pancreatic cancer. GENITOURINARY: History of kidney stones. NEUROLOGICAL: Has chronic pain syndrome. MUSCULOSKELETAL: Has back pain, stiffness or joint arthritis. SKIN: Has psoriasis. PSYCHIATRIC: Has generalized anxiety disorder, bipolar disorder, depressive disorder, posttraumatic stress disorder. ENDOCRINE: Denies current thyroid disorders. Denies any blood sugar glucose intolerance. HEME/LYMPHATIC: Denies any lumps and bumps around the neck. No recent deep venous thrombosis. Has thrombocytopenia. Has chronic anemia. ALLERGY/IMMUNOLOGY: No immunoglobulin therapy. No immune deficiencies. History of MRSA. BREAST: Denies current breast lumps, pain or nipple discharge. PHYSICAL EXAM: VITALS: Reviewed CONSTITUTIONAL: Well developed and in no acute distress. EYES: Conjuctivae without sclera icterus. Extraocular movements grossly intact. HEAD, EARS, NOSE, THROAT: Moist buccal mucosa. Head is atraumatic, normocephalic. Hears conversational speech. No nasal drainage. NECK: Supple. No JV distention. No thyroidomegaly. RESPIRATORY: Non-labored respirations and equal bilateral excursions. No gross wheezes. CARDIOVASCULAR: Palpable 2+ radial pulses. ABDOMEN: Multiple laparoscopic sites total of 8 puncture sites along the lateral abdomen and lower midline incision with epidermolysis. No further bleeding identified. LYMPH: No neck lymphadenopathy. MUSCULOSKELETAL: No clubbing cyanosis or edema SKIN: Warm and well perfused with good skin turgor. NEUROLOGIC: Cranial nerves II through XII grossly intact. No focal or lateralizing signs. PSYCH: Appropriate affect. Alert and oriented to person, place and time. Displays appropriate insight. CLINCAL LABS: Reviewed. Hemoglobin 9.3 down from 10.3. WBC normal. Total bilirubin down from 2.3-1.7. IMAGING: Independently reviewed. CT of the abdomen pelvis independently reviewed demonstrates fluid collection along the subcutaneous tissue. No recurrent abdominal wall hernia identified. No area to identified abscess. This is my independent interpretation. ASSESSMENT: 1. Acute posthemorrhagic bleeding from the incisions 2. Status post ventral hernia repair 3. Acute blood loss anemia 4. Liver cirrhosis 5. History of illicit drug use PLAN: 1. I personally placed his abdominal binder to tamponade any further bleeding. 2. Patient reassured this is a common outcome after complex abdominal wall hernia surgery with abdominal wall hematoma. 3. Follow-up CBC. 4. Diet as tolerated. 5. Patient may be discharged from a surgical standpoint should hemoglobin stabilize. 6. Recommend showering prior to discharge to prevent any recurrent bleeding. 7. Will need additional binder prior to discharge. ADVANCE DIRECTIVE: CODE STATUS in chart Thank you for this kind consultation. Past Medical History Past Medical History: Asthma, Cancer, GI Bleed, Liver Disease, Pneumonia, Renal Disease, Skin Disorder Additional Past Medical History / Comment(s): Liver cirrhosis, portal HTN, abdominal ascities, pancreatitis, upper and lower GI bleeds, bleeding ulcers, esophageal varicies-banded, thrombocytopemia, chronic anemia, gallstones, nephrolithiasis/hematuria, L inguinal hernia, psoriasis; paracentesis, umbilical hernia, left foot injury, pancreatic CA History of Any Multi-Drug Resistant Organisms: MRSA Year Discovered:: 12/09/13 MDRO Source:: Right first finger Past Surgical History: Appendectomy, Cholecystectomy, Hernia Repair, Orthopedic Surgery Additional Past Surgical History / Comment(s): EGDs/varicies banding/colonoscopy, paracentesis, right hand tendon repair, right knee arthrosc opy, cystoscopy for kidney stone removal, right hand ring finger surgery. surgery for umbilical hernia, Hernia repair on 10/13 at [facility]. Past Anesthesia/Blood Transfusion Reactions: Previous Problems w/ Anesthesia, Motion Sickness Additional Past Anesthesia/Blood Transfusion Reaction / Comm: Woke up during scope procedure. Past Psychological History: Anxiety, Bipolar, Depression, PTSD Smoking Status: Current every day smoker Past Alcohol Use History: Abuse, Daily Past Drug Use History: Cocaine, Heroin, Marijuana - Past Family History Mother Family Medical History: No Reported History Additional Family Medical History / Comment(s): Mother has health issues from a MVA-pt did not elaborate. Father Family Medical History: Vascular Disorder Additional Family Medical History / Comment(s): Prostate issues grandpa. Brain aneurysm father. Medications and Allergies Home Medications Medication Instructions Recorded Confirmed Type Lactulose 45 gm PO BID-W/MEALS 12/26/19 10/20/23 History Acetaminophen Tab [Tylenol Tab] 1,000 mg PO Q6HR PRN 10/20/23 10/20/23 History Albuterol Sulfate [Ventolin HFA] 1 - 2 puff INHALATION RT-Q6H PRN 10/20/23 0 10/20/23 History atenoloL 25 mg PO DAILY 10/20/23 10/20/23 History oxyCODONE HCL [OxyIR] 5 mg PO Q6H 10/20/23 10/20/23 History Allergies Allergy/AdvReac Type Severity Reaction Status Date / Time No Known Allergies Allergy Verified 10/20/23 18:05 Surgical - Exam Vital Signs Temp Pulse Resp Pulse Ox 98.5 F 67 18 100 10/20/23 11:29 10/20/23 11:29 10/20/23 11:29 10/20/23 11:29 Results - Labs 10/20/23 14:40 10/20/23 14:25 Abnormal Lab Results - Last 24 Hours (Table) 10/20/23 10/20/23 10/20/23 Range/Units 11:42 11:42 14:25 RBC 3.17 L (4.30-5.90) m/uL Hgb 10.4 L (13.0-17.5) gm/dL Hct 33.3 L (39.0-53.0) % MCV 104.8 H (80.0-100.0) fL RDW 16.8 H (11.5-15.5) % Sodium 135 L (137-145) mmol/L Chloride 114 H 113 H (98-107) mmol/L Carbon Dioxide 18 L 18 L (22-30) mmol/L Creatinine 0.54 L 0.51 L (0.66-1.25) mg/dL Glucose 100 H (74-99) mg/dL Calcium 8.3 L 8.0 L (8.4-10.2) mg/dL Total Bilirubin 2.3 H 2.1 H (0.2-1.3) mg/dL Total Protein 5.8 L 5.3 L (6.3-8.2) g/dL Albumin 2.8 L 2.5 L (3.5-5.0) g/dL 10/20/23 Range/Units 14:40 RBC 2.85 L (4.30-5.90) m/uL Hgb 9.4 L (13.0-17.5) gm/dL Hct 29.8 L (39.0-53.0) % MCV 104.5 H (80.0-100.0) fL RDW 16.6 H (11.5-15.5) % Sodium (137-145) mmol/L Chloride (98-107) mmol/L Carbon Dioxide (22-30) mmol/L Creatinine (0.66-1.25) mg/dL Glucose (74-99) mg/dL Calcium (8.4-10.2) mg/dL Total Bilirubin (0.2-1.3) mg/dL Total Protein (6.3-8.2) g/dL Albumin (3.5-5.0) g/dL Diabetes panel 10/20/23 10/20/23 Range/Units 11:42 14:25 Sodium 137 135 L (137-145) mmol/L Potassium 3.8 3.5 (3.5-5.1) mmol/L Chloride 114 H 113 H (98-107) mmol/L Carbon Dioxide 18 L 18 L (22-30) mmol/L BUN 9 9 (9-20) mg/dL Creatinine 0.54 L 0.51 L (0.66-1.25) mg/dL Glucose 100 H 98 (74-99) mg/dL Calcium 8.3 L 8.0 L (8.4-10.2) mg/dL AST 48 42 (17-59) U/L ALT 39 36 (4-49) U/L Alkaline Phosphatase 106 97 (38-126) U/L Total Protein 5.8 L 5.3 L (6.3-8.2) g/dL Albumin 2.8 L 2.5 L (3.5-5.0) g/dL Calcium panel 10/20/23 10/20/23 Range/Units 11:42 14:25 Calcium 8.3 L 8.0 L (8.4-10.2) mg/dL Albumin 2.8 L 2.5 L (3.5-5.0) g/dL Pituitary panel 10/20/23 10/20/23 Range/Units 11:42 14:25 Sodium 137 135 L (137-145) mmol/L Potassium 3.8 3.5 (3.5-5.1) mmol/L Chloride 114 H 113 H (98-107) mmol/L Carbon Dioxide 18 L 18 L (22-30) mmol/L BUN 9 9 (9-20) mg/dL Creatinine 0.54 L 0.51 L (0.66-1.25) mg/dL Glucose 100 H 98 (74-99) mg/dL Calcium 8.3 L 8.0 L (8.4-10.2) mg/dL Adrenal panel 10/20/23 10/20/23 Range/Units 11:42 14:25 Sodium 137 135 L (137-145) mmol/L Potassium 3.8 3.5 (3.5-5.1) mmol/L Chloride 114 H 113 H (98-107) mmol/L Carbon Dioxide 18 L 18 L (22-30) mmol/L BUN 9 9 (9-20) mg/dL Creatinine 0.54 L 0.51 L (0.66-1.25) mg/dL Glucose 100 H 98 (74-99) mg/dL Calcium 8.3 L 8.0 L (8.4-10.2) mg/dL Total Bilirubin 2.3 H 2.1 H (0.2-1.3) mg/dL AST 48 42 (17-59) U/L ALT 39 36 (4-49) U/L Alkaline Phosphatase 106 97 (38-126) U/L Total Protein 5.8 L 5.3 L (6.3-8.2) g/dL Albumin 2.8 L 2.5 L (3.5-5.0) g/dL
[2023-10-20] MEDS: HYDROmorphone 0.5 MG/0.5 ML SYRINGE IVP PRN (20:07)
[2023-10-21 07:09] LABS: ALT 28 U/L (4-49); AST 31 U/L (17-59); African American GFR (CKD) >90 (>60 ml/min/1.73 sqM); Albumin 2.2 g/dL (3.5-5.0); Alkaline Phosphatase 73 U/L (38-126); Anion Gap 3 mmol/L; Blood Urea Nitrogen 9 mg/dL (9-20); Calcium 7.3 mg/dL (8.4-10.2); Carbon Dioxide 17 mmol/L (22-30); Chloride 114 mmol/L (98-107); Glucose 97 mg/dL (74-99); Lipase 182 U/L (23-300); Magnesium 1.4 mg/dL (1.6-2.3); Non-African American GFR(CKD) >90 (>60 ml/min/1.73 sqM); Phosphorus 3.3 mg/dL (2.5-4.5); Potassium 3.6 mmol/L (3.5-5.1); Sodium 134 mmol/L (137-145); Total Bilirubin 1.7 mg/dL (0.2-1.3); Total Protein 4.7 g/dL (6.3-8.2)
[2023-10-21 07:23] LABS: Anisocytosis Slight; Basophils % (A) 1 %; Eosinophils # (A) 0.2 k/uL (0-0.7); Eosinophils % (A) 3 %; HGB 8.4 gm/dL (13.0-17.5); Hypochromasia Marked; Lymphocytes # (A) 1.2 k/uL (1.0-4.8); Lymphocytes % (A) 24 %; MCH 32.8 pg (25.0-35.0); MCHC 31.1 g/dL (31.0-37.0); MCV 105.4 fL (80.0-100.0); Macrocytosis Moderate; Mean Platelet Volume 10.8; Monocytes # (A) 0.6 k/uL (0-1.0); Monocytes % (A) 11 %; Neutrophils # (A) 3.1 k/uL (1.3-7.7); Neutrophils % (A) 59 %; Platelet Count 157 k/uL (150-450); RBC 2.56 m/uL (4.30-5.90); RDW 16.6 % (11.5-15.5); WBC 5.2 k/uL (3.8-10.6)
[2023-10-21] MEDS: POTASSIUM CHLORIDE ER 20 MEQ TAB.ER PO STA (10:28)
[2023-10-21] MEDS: NICOTINE 21MG/24HR PATCH TRANSDERM SCH (10:28)
[2023-10-21] MEDS: MAGNESIUM SULFATE-D5W PMX 1 GM in DEXTROSE/WATER 1 100ML.BAG IVPB ONE (10:28)
[2023-10-21 12:19] LABS: Anisocytosis Slight; Basophils % (A) 1 %; Eosinophils # (A) 0.2 k/uL (0-0.7); Eosinophils % (A) 4 %; HCT 28.4 % (39.0-53.0); HGB 8.9 gm/dL (13.0-17.5); Hypochromasia Marked; Lymphocytes % (A) 21 %; MCHC 31.3 g/dL (31.0-37.0); MCV 105.2 fL (80.0-100.0); Macrocytosis Moderate; Monocytes # (A) 0.4 k/uL (0-1.0); Monocytes % (A) 9 %; Neutrophils % (A) 62 %; Platelet Count 163 k/uL (150-450); RDW 16.3 % (11.5-15.5); WBC 4.8 k/uL (3.8-10.6)
[2023-10-21] MEDS: atenoloL 25 MG TAB PO SCH (12:52)
[2023-10-21] MEDS: PANTOPRAZOLE 40 MG TABLET PO SCH (12:52)
--- NOTE | 2023-10-21 14:09 | P.HPIM ---
History of Present Illness H&P Date: 10/21/23 Chief Complaint: Recent abdominal surgery, bleeding This is a 48-year-old gentleman presented to the ER with postoperative surgical site bleeding, fevers and pain. Reports he had hernia repair at [facility] on [address] and was discharged home on Wednesday, October 18, 2023. Afebrile, Tmax 99.4, normal WBC. Hemoglobin decreased to 8.4, receiving IV fluid hydration. Renal function stable.CT of abdomen pelvis CT of abdomen pelvis reported anterior abdominal wall seroma/abscess, appears to communicate with surgical site at its inferior most extent. Denies chest pain, palpitations or shortness of breath. Maintaining O2 sats in the high 90s on room air. Pain controlled. .Evaluated by general surgery, binder applied with reevaluation pending. Review of Systems ROS Statement: Those systems with pertinent positive or pertinent negative responses have been documented in the HPI. ROS Other: All systems not noted in ROS Statement are negative. Past Medical History Past Medical History: Asthma, Cancer, GI Bleed, Liver Disease, Pneumonia, Renal Disease, Skin Disorder Additional Past Medical History / Comment(s): Liver cirrhosis, portal HTN, abdominal ascities, pancreatitis, upper and lower GI bleeds, bleeding ulcers, esophageal varicies-banded, thrombocytopemia, chronic anemia, gallstones, nephrolithiasis/hematuria, L inguinal hernia, psoriasis; paracentesis, umbilical hernia, left foot injury, pancreatic CA History of Any Multi-Drug Resistant Organisms: MRSA Date of last positivie culture/infection: 12/09/13 MDRO Source:: Right first finger Past Surgical History: Appendectomy, Cholecystectomy, Hernia Repair, Orthopedic Surgery Additional Past Surgical History / Comment(s): EGDs/varicies banding/colonoscopy, paracentesis, right hand tendon repair, right knee arthroscopy, cystoscopy for kidney stone removal, right hand ring finger surgery. surgery for umbilical hernia, Hernia repair on 10/13 at [facility]. Past Anesthesia/Blood Transfusion Reactions: Previous Problems w/ Anesthesia, Motion Sickness Additional Past Anesthesia/Blood Transfusion Reaction / Comment(s): Woke up during scope procedure. Past Psychological History: Anxiety, Bipolar, Depression, PTSD Smoking Status: Current every day smoker Past Alcohol Use History: Abuse, Daily Past Drug Use History: Cocaine, Heroin, Marijuana - Past Family History Mother Family Medical History: No Reported History Additional Family Medical History / Comment(s): Mother has health issues from a MVA-pt did not elaborate. Father Family Medical History: Vascular Disorder Additional Family Medical History / Comment(s): Prostate issues grandpa. Brain aneurysm father. Medications and Allergies Home Medications Medication Instructions Recorded Confirmed Type Lactulose 45 gm PO BID-W/MEALS 12/26/19 10/20/23 History Acetaminophen Tab [Tylenol] 1,000 mg PO Q6HR PRN 10/20/23 10/20/23 History Albuterol Sulfate [Ventolin HFA] 1 - 2 puff INHALATION RT-Q6H PRN 10/20/23 10/20/23 History atenoloL 25 mg PO DAILY 10/20/23 10/20/23 History oxyCODONE HCL [OxyIR] 5 mg PO Q6H 10/20/23 10/20/23 History Nicotine 21Mg/24Hr Patch [Habitrol] 1 patch TRANSDERM DAILY patch 10/21/23 Rx Allergies Allergy/AdvReac Type Severity Reaction Status Date / Time No Known Allergies Allergy Verified 10/20/23 18:05 Physical Exam Vitals: Vital Signs Temp Pulse Pulse Resp BP BP Pulse Ox 10/21/23 12:51 77 122/73 100 10/21/23 07:00 98.4 F 70 17 119/66 97 10/21/23 01:59 99.4 F 71 16 103/58 94 L 10/20/23 20:50 98.9 F 88 18 114/60 98 10/20/23 20:00 99.2 F 75 16 125/57 124/72 99 10/20/23 19:45 98.3 F 69 18 116/50 97 10/20/23 17:30 99.1 F 74 18 109/48 96 10/20/23 16:54 69 16 109/59 97 10/20/23 15:37 67 16 103/59 98 Intake and Output 10/20/23 10/21/23 10/21/23 22:59 06:59 14:59 Intake Total 900 Balance 900 Intake: Intake, IV Titration 900 Amount Sodium Chloride 0.9% 1, 900 000 ml @ 75 mls/hr IV . [id number] [facility] Rx#:[id number] Other: Voiding Method Urinal # Voids 2 Weight 89.358 kg General: [Patient awake, alert and oriented times 3, sitting up in bed. no acute distress. HEENT: [PERRL. EOMI. No pharyngeal erythema or exudate.] Neck: [No adenopathy.] Cardiac: [Heart regular in rate and rhythm. No S3. No S4. No clicks, rubs. No murmur.] Lungs: Unlabored, bibasilar crackles] Abdomen: Soft, status post recent abdominal surgery, dressing with shadowing, binder present Extremes: [No edema no cyanosis no claudication normal pulses] Skin: [No rash, warm and dry.] Neurologic: [No lateralizing deficits. CN II - XII grossly intact.] Lymphatic: [No adenopathy.] Results CBC & Chem 7: 10/21/23 11:55 10/21/23 06:08 Labs: Abnormal Lab Results - Last 24 Hours (Table) 10/20/23 10/20/23 10/21/23 Range/Units 14:25 14:40 06:08 RBC 2.85 L 2.56 L (4.30-5.90) m/uL Hgb 9.4 L 8.4 L (13.0-17.5) gm/dL Hct 29.8 L 27.0 L (39.0-53.0) % MCV 104.5 H 105.4 H (80.0-100.0) fL RDW 16.6 H 16.6 H (11.5-15.5) % Sodium 135 L (137-145) mmol/L Chloride 113 H (98-107) mmol/L Carbon Dioxide 18 L (22-30) mmol/L Creatinine 0.51 L (0.66-1.25) mg/dL Calcium 8.0 L (8.4-10.2) mg/dL Magnesium (1.6-2.3) mg/dL Total Bilirubin 2.1 H (0.2-1.3) mg/dL Total Protein 5.3 L (6.3-8.2) g/dL Albumin 2.5 L (3.5-5.0) g/dL 10/21/23 10/21/23 Range/Units 06:08 11:55 RBC 2.70 L (4.30-5.90) m/uL Hgb 8.9 L (13.0-17.5) gm/dL Hct 28.4 L (39.0-53.0) % MCV 105.2 H (80.0-100.0) fL RDW 16.3 H (11.5-15.5) % Sodium 134 L (137-145) mmol/L Chloride 114 H (98-107) mmol/L Carbon Dioxide 17 L (22-30) mmol/L Creatinine 0.52 L (0.66-1.25) mg/dL Calcium 7.3 L (8.4-10.2) mg/dL Magnesium 1.4 L (1.6-2.3) mg/dL Total Bilirubin 1.7 H (0.2-1.3) mg/dL Total Protein 4.7 L (6.3-8.2) g/dL Albumin 2.2 L (3.5-5.0) g/dL Thrombosis Risk Factor Assmnt - Choose All That Apply Any of the Below Risk Factors Present?: Yes Each Factor Represents 1 point: Age 41-60 years, History of prior major surgery (<1month), Obesity (BMI >25) Other Risk Factors: No Other congenital or acquired thrombophilia - If yes, enter type in comment: No Thrombosis Risk Factor Assessment Total Risk Factor Score: 3 Thrombosis Risk Factor Assessment Level: Moderate Risk Assessment and Plan Assessment: Recent ventral hernia repair, postoperative bleeding Acute on chronic anemia secondary to the above History of esophageal varices with multiple bandings Alcoholic cirrhosis of liver, Portal hypertension History of ascites with multiple paracentesis Alcohol dependence History of polysubstance abuse including cocaine, heroin, marijuana Hyperammonia Noncompliance Chronic alcoholic hepatitis Chronic nicotine dependence History of nephrolithiasis Plan: Continue on current medication regimen ,monitoring and symptomatic treatment. IV fluid hydration. Pain management. Repeat hemoglobin at 1200. discharge planning in progress for today pending continued improvement in hemogl obin ,final DC recommendations and clearance per general surgery. The impression and plan of care has been dictated as directed. : I performed a history and examination of this patient, discussed the same with the dictator. I agree with the dictator's note ,documented as a scribe. Any a dditional findings or plans will be noted.
--- NOTE | 2023-10-21 14:41 | P.PN ---
Subjective Progress Note Date: 10/21/23 CHIEF COMPLAINT: Postoperative bleeding from hernia repair HISTORY OF PRESENT ILLNESS: The patient is a 48 year old male who reports a complicated abdominal wall hernia repair less than 2 weeks ago. He reports having a complication where he had gone back to the operating room for evacuation of hematoma and blood transfusion 3 units. Instead of going back to his initial provider, patient came to [facility] due to proximity from his home. Patient presented with bleeding from incision however initially tamponade. Hemoglobin continues to decline. Patient reports chronic bleeding since his initial surgery 2 to 3 weeks ago. REVIEW OF ORGAN SYSTEMS: RESPIRATORY: Has tobacco abuse disorder. Has asthma. History of pneumonia. CARDIOVASCULAR: Has hypertensive heart disease. GASTROINTESTINAL: Has cirrhosis of the liver with esophageal varices including ascites. History of GI bleed. Has portal hypertension. History of pancreatic cancer. GENITOURINARY: History of kidney stones. PHYSICAL EXAM: VITALS: Reviewed CONSTITUTIONAL: Well developed and in no acute distress. EYES: Conjuctivae without sclera icterus. Extraocular movements grossly intact. HEAD, EARS, NOSE, THROAT: Moist buccal mucosa. Head is atraumatic, normocephalic. Hears conversational speech. No nasal drainage. RESPIRATORY: Non-labored respirations and equal bilateral excursions. No gross wheezes. CARDIOVASCULAR: Palpable 2+ radial pulses. ABDOMEN: Compressive dressing with persistent bleeding of the lower abdomen. MUSCULOSKELETAL: No clubbing cyanosis or edema SKIN: Warm and well perfused with good skin turgor. NEUROLOGIC: Cranial nerves II through XII grossly intact. No focal or lateralizing signs. PSYCH: Appropriate affect. Alert and oriented to person, place and time. Displays appropriate insight. CLINCAL LABS: Reviewed. Hemoglobin 9.3 down from 10.3. Hemoglobin today down to 8.3-8.9. ASSESSMENT: 1. Acute posthemorrhagic bleeding from the incisions 2. Status post ventral hernia repair 3. Acute blood loss anemia 4. Liver cirrhosis 5. History of illicit drug use PLAN: 1. Due to persistent bleeding despite compressive dressing and length of bleeding for over several weeks, exploration with a vacuum duration of hematoma described. 2. Use of hemostatic agents were reviewed for which the patient wished to proceed. 3. N.p.o. Objective - Vital Signs Vital signs: Vital Signs Temp 98.4 F 10/21/23 07:00 Pulse 77 10/21/23 12:51 Resp 17 10/21/23 07:00 BP 122/73 10/21/23 12:51 Pulse Ox 100 10/21/23 12:51 FiO2 Intake & Output 10/20/23 10/21/23 10/21/23 18:59 06:59 18:59 Intake Total 900 Balance 900 Weight 89.358 kg 89.358 kg Intake: Intake, IV Titration 900 Amount Sodium Chloride 0.9% 1, 900 000 ml @ 75 mls/hr IV . [id number] [facility] Rx#:[id number] Other: Voiding Method Urinal # Voids 2 - Labs CBC & Chem 7: 10/21/23 11:55 10/21/23 06:08 Labs: Abnormal Lab Results - Last 24 Hours (Table) 10/20/23 10/20/23 10/21/23 Range/Units 14:25 14:40 06:08 RBC 2.85 L 2.56 L (4.30-5.90) m/uL Hgb 9.4 L 8.4 L (13.0-17.5) gm/dL Hct 29.8 L 27.0 L (39.0-53.0) % MCV 104.5 H 105.4 H (80.0-100.0) fL RDW 16.6 H 16.6 H (11.5-15.5) % Sodium 135 L (137-145) mmol/L Chloride 113 H (98-107) mmol/L Carbon Dioxide 18 L (22-30) mmol/L Creatinine 0.51 L (0.66-1.25) mg/dL Calcium 8.0 L (8.4-10.2) mg/dL Magnesium (1.6-2.3) mg/dL Total Bilirubin 2.1 H (0.2-1.3) mg/dL Total Protein 5.3 L (6.3-8.2) g/dL Albumin 2.5 L (3.5-5.0) g/dL 10/21/23 10/21/23 Range/Units 06:08 11:55 RBC 2.70 L (4.30-5.90) m/uL Hgb 8.9 L (13.0-17.5) gm/dL Hct 28.4 L (39.0-53.0) % MCV 105.2 H (80.0-100.0) fL RDW 16.3 H (11.5-15.5) % Sodium 134 L (137-145) mmol/L Chloride 114 H (98-107) mmol/L Carbon Dioxide 17 L (22-30) mmol/L Creatinine 0.52 L (0.66-1.25) mg/dL Calcium 7.3 L (8.4-10.2) mg/dL Magnesium 1.4 L (1.6-2.3) mg/dL Total Bilirubin 1.7 H (0.2-1.3) mg/dL Total Protein 4.7 L (6.3-8.2) g/dL Albumin 2.2 L (3.5-5.0) g/dL
[2023-10-21] MEDS ORDERED: LACTULOSE 200 GM/300 ML (FROM 1/2 GAL JUG) PO SCH (17:30)
[2023-10-21] MEDS: LACTULOSE 20 GM/30 ML CUP PO SCH (18:09)
[2023-10-21] MEDS ORDERED: ROCURONIUM 10 MG/ML (5 ML VIAL) IV ONE (21:16)
[2023-10-21] MEDS ORDERED: PROPOFOL 10 MG/ML 20 ML VIAL IV ONE (21:16)
[2023-10-21] MEDS ORDERED: SUCCINYLCHOLINE CHLORIDE 200 MG/10 ML VIAL IV ONE (21:16)
[2023-10-21] MEDS ORDERED: PHENYLEPHRINE 10 MG/ML VIAL ONE (21:16)
[2023-10-21] MEDS ORDERED: LIDOCAINE 1% INJ 10MG/ML (20 ML MDV) ONE (21:16)
[2023-10-21] MEDS ORDERED: ceFAZolin 1 GM/50 ML BAG (PMX) ONE (21:16)
[2023-10-21] MEDS ORDERED: MIDAZOLAM 2 MG/2 ML VIAL ONE (21:16)
[2023-10-21] MEDS ORDERED: fentaNYL (PF) 50 MCG/ML 2 ML AMP ONE (21:16)
[2023-10-21] MEDS: LACTATED RINGERS 1,000 ML IV ONE (21:20)
[2023-10-21] MEDS: SODIUM CHLORIDE 0.9% 100 ML with ceFAZolin 2,000 MG IV ONE (21:20)
[2023-10-21] MEDS: LIDOCAINE 1%-EPI 1:100,000 20 ML VIAL SQ ONE (21:56)
[2023-10-21] MEDS ORDERED: ONDANSETRON 4 MG/2 ML VIAL IVP PRN (23:16)
--- NOTE | 2023-10-21 23:33 | P.OP ---
Date of Procedure: 10/21/23 Description of Procedure: SURGEON: LOW ARMSTRONG MD PREOPERATIVE DIAGNOSES: 1. Postoperative abdominal wall hematoma status post open ventral hernia repair 2. Acute blood loss anemia 3. Alcohol cirrhosis 4. History of illicit drug use 5. Tobacco abuse disorder 6. Pyrexia POSTOPERATIVE DIAGNOSES: 1. Postoperative abdominal wall hematoma status post open ventral hernia repair 2. Acute blood loss anemia 3. Alcohol cirrhosis 4. History of illicit drug use 5. Tobacco abuse disorder 6. Pyrexia 7. Abdominal wall fat necrosis OPERATION: 1. Evacuation of incisional abdominal wall hematoma, 200 cc 2. Sharp excisional debridement with water jet Pulsavac 3 L normal saline abdominal wall 22 cm x 10 cm 3. Complex closure of abdominal wall incision 22 cm 4. Application of incisional wound VAC system Prevena, 20 cm 5. Control of bleeding abdominal wall hematoma ANESTHESIA: General ESTIMATED BLOOD LOSS: 20 mL SPECIMENS REMOVED: Aerobic anaerobic cultures abdominal hematoma COMPLICATIONS: None. CONDITION: Stable. DRAINS: Two #19 round drains below abdominal flap extending through the pubis. OPERATIVE FINDINGS: 1. Bilateral both thickness and skin subcutaneous necrosis requiring excision, 22 cm x 10 cm 2. Evacuation of multiple clots and graded hematoma, open 200 cc 3. Water jet Pulsavac 3 L normal saline with sharp excisional debridement 4. Mild subcutaneous tissue and muscular bleeding identified and controlled with Bovie cautery INDICATIONS: The patient is a 48-year-old gentleman who presents from another facility after having complex abdominal reconstruction for incarcerated hernia done 2 weeks ago at [facility]. Patient presented to the emergency room with bleeding and acute blood loss anemia. Diagnostic studies demonstrated a large contained hematoma. Despite conservative measures as well as abdominal pressure, patient continued to bleed. Hemoglobin continued to trend downward. Patient had pyrexia. Patient was taken to the operating room for evacuation of hematoma, control of bleeding including placement of drains. Benefits and risks of the procedure including bleeding, infection, cosmetic deformity, abdominal seromas, placement of drains, risk of flap failure were described at length. Informed consent was obtained. DESCRIPTION: The patient was brought into the operating room and laid in supine position. After general induction, the abdomen was prepped and draped in standard sterile fashion using Betadine and ChloraPrep. A timeout protocol was confirmed with the surgical team regarding patient's name, procedure to be performed, including preoperative medications. He had received Ancef IV antibiotics. Active sanguinous drainage from his midline incision was found including degradation of the incision with india demonstrating incisional dehiscence. The fluid collection was suctioned and the india were removed from the midline. The skin edges were necrotic. The subcutaneous tissue involving the left abdominal flap was also necrotic with fat necrosis and minimal bleeding. Due to necrosis of the midline incision, sharp excisional debridement using a #10 blade was performed 22 cm length and 10 cm width. The depth of the wound demonstrated a wide space from his soft tissue incisional hernia repair. The fascia was intact. Minimal subcutaneous bleeding was identified and controlled using Bovie cautery. Multiple clots were evacuated from the abdominal wall cavity including serosanguineous drainage over 200 cc. Lap sponges were used to evacuate and debride the space. Water jet pulse lavage, 3 L normal saline was used for additional irrigation. Next once all hemostasis was checked, #19 MAYRA drains were placed along the bilateral right and left lower flaps and exited through the lower abdomen above the pubis. Drains were tacked to the skin using 2-0 nylon. Hemostasis was once again checked with electro-Bovie cautery and all defects were addressed. Attention was now brought to closure of the flap. The right and left abdominal flaps were reapproximated at the midline and temporarily closed with skin india. Once reapproximated, the skin was closed in layers using 0 Vicryl for the superficial fascial system followed by running 3-0 Monocryl for the deep dermis in a running subcuticular fashion. Once the incision was closed, bulb suction was attached. Hemostasis was checked. At the end of the procedure, the needle, sponge and instrument count was verified correct. The skin was cleansed with hydrogen peroxide. Dermabond tape including adhesive was placed along the length of the incision. Optifoam dressing was also placed over the incision and over the MAYRA sites. Incisional wound VAC system 20 cm Prevena was placed over the skin closure. An abdominal binder was placed and marked. The patient was taken to the postanesthesia care unit in stable condition, awake and extubated. Intraoperative images of final closure was obtained and given to family.
[2023-10-21] MEDS: LACTATED RINGERS 1,000 ML IV SCH (23:39)
[2023-10-21] MEDS: SODIUM CHLORIDE 0.9% 1,000 ML IV SCH (23:44)
[2023-10-22] MEDS: HYDROmorphone 1 MG/ML 1 ML SYRINGE IVP PRN (00:01)
[2023-10-22] MEDS: ACETAMINOPHEN TAB 500 MG TAB PO SCH (02:19)
[2023-10-22] MEDS: SODIUM CHLORIDE 0.9% 1,000 ML IV ONE (02:48)
[2023-10-22] MEDS ORDERED: HYDROmorphone 0.5 MG/0.5 ML SYRINGE IVP PRN (07:00)
[2023-10-22] MEDS ORDERED: fentaNYL (PF) 50 MCG/ML 2 ML AMP IV PRN (07:00)
[2023-10-22 10:07] LABS: Anisocytosis Slight; Basophils # (A) 0.1 k/uL (0-0.2); Basophils % (A) 1 %; Eosinophils # (A) 0.2 k/uL (0-0.7); Eosinophils % (A) 4 %; HCT 27.1 % (39.0-53.0); HGB 8.4 gm/dL (13.0-17.5); Hypochromasia Marked; Lymphocytes # (A) 0.7 k/uL (1.0-4.8); Lymphocytes % (A) 15 %; MCV 106.3 fL (80.0-100.0); Macrocytosis Marked; Mean Platelet Volume 10.2; Monocytes # (A) 0.5 k/uL (0-1.0); Monocytes % (A) 11 %; Neutrophils # (A) 3.2 k/uL (1.3-7.7); Neutrophils % (A) 68 %; Platelet Count 153 k/uL (150-450); RBC 2.55 m/uL (4.30-5.90); RDW 16.2 % (11.5-15.5); WBC 4.7 k/uL (3.8-10.6)
[2023-10-22] MEDS: NICOTINE 21MG/24HR PATCH TRANSDERM SCH (14:03)
[2023-10-22] MEDS: atenoloL 25 MG TAB PO SCH (14:03)
--- NOTE | 2023-10-22 14:22 | P.PN ---
Subjective Progress Note Date: 10/22/23 CHIEF COMPLAINT: Abdominal wall hematoma HISTORY OF PRESENT ILLNESS: Patient postop day #1 status postevacuation of incisional abdominal wall hematoma. Patient reports his pain is controlled. He is tolerating diet. Denies any nausea or vomiting. Afebrile. WBC 4.7 Hgb 8.4 stable platelets 153 MAYRA drain on the left abdomen 30 mL sanguinous output. Other MAYRA drain with 40 mL sanguinous output PHYSICAL EXAM: VITAL SIGNS: Reviewed. GENERAL: Well-developed in no acute distress. HEENT: No sclera icterus. Extraocular movements grossly intact. Moist buccal mucosa. Head is atraumatic, normocephalic. ABDOMEN: Soft. Mildly distended. Abdominal binder in place. 2 MAYRA drains. NEUROLOGIC: Alert and oriented. Cranial nerves II through XII grossly intact. ASSESSMENT: 1. Postoperative abdominal wall hematoma status post open ventral hernia repair 2. Acute blood loss anemia 3. Alcohol cirrhosis 4. History of illicit drug use 5. Tobacco abuse disorder 6. Pyrexia 7. Abdominal wall fat necrosis PLAN: -Continue regular diet -Continue abdominal binder. No one is to touch or remove the abdominal binder -Continue to monitor MAYRA drain output -Continue to monitor hemoglobin -Encourage patient to quit smoking -Encourage patient to increase activity level -Continue pain management Physician Marketing Operations Manager note has been reviewed by physician. Signing provider agrees with the documented findings, assessment, and plan of care. Objective - Vital Signs Vital signs: Vital Signs Temp 99.4 F 10/22/23 07:00 Pulse 72 10/22/23 07:00 Resp 16 10/22/23 07:00 BP 105/63 10/22/23 07:00 Pulse Ox 97 10/22/23 07:00 FiO2 Intake & Output 10/21/23 10/22/23 10/22/23 18:59 06:59 18:59 Intake Total 100 900 551 Output Total 1170 745 Balance 100 -270 -194 Intake: IV 900 Intake, IV Titration 100 Amount Magnesium Sulfate-D5w Pmx 100 1 gm In Dextrose/Water 1 100ml.bag @ 100 mls/hr IVPB ONCE ONE Rx#: [id number] Oral 551 Output: Drainage 70 Abdomen 40 Left Abdomen 30 Urine 1150 675 Estimated Blood Loss 20 Other: Voiding Method Urinal Urinal - Labs CBC & Chem 7: 10/22/23 09:27 10/21/23 06:08 Labs: Abnormal Lab Results - Last 24 Hours (Table) 10/22/23 Range/Units 09:27 RBC 2.55 L (4.30-5.90) m/uL Hgb 8.4 L (13.0-17.5) gm/dL Hct 27.1 L (39.0-53.0) % MCV 106.3 H (80.0-100.0) fL RDW 16.2 H (11.5-15.5) % Lymphocytes # 0.7 L (1.0-4.8) k/uL Macrocytosis Marked A Microbiology - Last 24 Hours (Table) 10/21/23 22:30 Gram Stain - Preliminary Abdomen
--- NOTE | 2023-10-22 16:04 | P.PN ---
Subjective Progress Note Date: 10/22/23 H&P Date: 10/21/23 Chief Complaint: Recent abdominal surgery, bleeding This is a 48-year-old gentleman presented to the ER with postoperative surgical site bleeding, fevers and pain. Reports he had hernia repair at [facility] on 530 and was discharged home on Wednesday, October 18, 2023. Afebrile, Tmax 99.4, normal WBC. Hemoglobin decreased to 8.4, receiving IV fluid hydration. Renal function stable.CT of abdomen pelvis CT of abdomen pelvis reported anterior abdominal wall seroma/abscess, appears to communicate with surgical site at its inferior most extent. Denies chest pain, palpitations or shortness of breath. Maintaining O2 sats in the high 90s on room air. Pain controlled. .Evaluated by general surgery, binder applied with reevaluation pending. 10/22/2023 home status post evacuation of incisional abdominal wall hematoma, postop day #1. Tolerated procedure well, pain controlled. Tolerating diet, no nausea vomiting. Afebrile, WBC 4.7. Hemoglobin 8.4, platelets 153. Denies chest pain, palpitations or shortness of breath. Maintaining O2 sats in the high 90s on room air. Objective - Vital Signs Vital signs: Vital Signs Temp 98.1 F 10/22/23 14:18 Pulse 68 10/22/23 14:18 Resp 16 10/22/23 14:18 BP 119/67 10/22/23 14:18 Pulse Ox 97 10/22/23 14:18 FiO2 Intake & Output 10/21/23 10/22/23 10/22/23 18:59 06:59 18:59 Intake Total 100 900 551 Output Total 1170 745 Balance 100 -270 -194 Intake: IV 900 Intake, IV Titration 100 Amount Magnesium Sulfate-D5w Pmx 100 1 gm In Dextrose/Water 1 100ml.bag @ 100 mls/hr IVPB ONCE ONE Rx#: [id number] Oral 551 Output: Drainage 70 Abdomen 40 Left Abdomen 30 Urine 1150 675 Estimated Blood Loss 20 Other: Voiding Method Urinal Urinal - Exam General: [Patient awake, alert and oriented times 3, sitting up in bed. no acute distress. HEENT: [Normocephalic, PERRL. EOMI. MMM. Neck: Supple, no JVD Cardiac: [Heart regular in rate and rhythm. No S3. No S4. No clicks, rubs. No murmur.] Lungs: Unlabored, equal air entry, diminished Abdomen: Soft, status post surgery, dressing/prevana wound VAC/ binder present, JPs X 2 with sanguinous drainage. Extremes: [No edema no cyanosis no claudication normal pulses] Skin: [No rash, warm and dry.] Neurologic: CN II - XII grossly intact.] - Labs CBC & Chem 7: 10/22/23 09:27 10/21/23 06:08 Labs: Abnormal Lab Results - Last 24 Hours (Table) 10/22/23 Range/Units 09:27 RBC 2.55 L (4.30-5.90) m/uL Hgb 8.4 L (13.0-17.5) gm/dL Hct 27.1 L (39.0-53.0) % MCV 106.3 H (80.0-100.0) fL RDW 16.2 H (11.5-15.5) % Lymphocytes # 0.7 L (1.0-4.8) k/uL Macrocytosis Marked A Microbiology - Last 24 Hours (Table) 10/21/23 22:30 Gram Stain - Preliminary Abdomen Assessment and Plan Assessment: Recent ventral hernia repair, postoperative bleeding secondary to abdominal wall hematoma. Status post open ventral hernia repair. Acute blood loss anemia in a patient with history of chronic anemia, secondary to the above History of esophageal varices with multiple bandings Alcoholic cirrhosis of liver, Portal hypertension History of ascites with multiple paracentesis Alcohol dependence History of polysubstance abuse including cocaine, heroin, marijuana Hyperammonia Noncompliance Chronic alcoholic hepatitis Chronic nicotine dependence History of nephrolithiasis Plan: Continue on current medication regimen ,monitoring and symptomatic treatment. IV fluid hydration. Pain management and DVT prophylaxis as per general surgery. Aggressive pulmonary toileting with incentive spirometer ordered. Smoking cessation reinforced. Increase activity as tolerated. Discharge planning in progress, pending final DC recommendations and clearance per general surgery The impression and plan of care has been dictated as directed. : I performed a history and examination of this patient, discussed the same with the dictator. I agree with the dictator's note ,documented as a scribe. Any additional findings or plans will be noted.
[2023-10-22] MEDS: FUROSEMIDE 10 MG/ML 2 ML VIAL IV ONE (22:18)
--- NOTE | 2023-10-22 23:00 | XR ---
EXAMINATION TYPE: XR chest 1V portable DATE OF EXAM: 10/22/2023 CLINICAL HISTORY: Shortness of breath TECHNIQUE: Single frontal view of the chest is obtained. COMPARISON: Chest x-ray September 15, 2023 FINDINGS: There is some chronic parenchymal change without suspicious new focal air space opacity, p leural effusion, or pneumothorax seen. The cardiac silhouette size is stable and within normal limit s. The osseous structures are intact. IMPRESSION: No acute process. No significant change from prior.
--- NOTE | 2023-10-23 08:35 | P.PN ---
Progress Note - Text Progress Note Date: 10/23/23 Intraoperative findings discussed in detail with patient including imaging after debridement of abdominal wall and evacuation of hematoma. I personally contacted Dr. Hdez at 1423, his index surgeon with review of intraoperative findings including image postoperatively of repair. Postoperative follow-up is pending with Dr. Hdez on 10/26/2023. Drains to continue for at least 2 to 3 weeks. Abdominal binder to be worn at all times for 2 weeks. No showering. Patient may sponge bath around binder. Nicotine avoidance including nicotine patches described. High-protein diet 90 g daily initiated and to continue doing course of recovery. Continue hospitalization through Wednesday for appropriate IV antibiotics including pain management.
[2023-10-23 10:02] LABS: Basophils # (A) 0.08 X 10*3/uL (0.00-0.10); Basophils % (A) 1.9 %; Eosinophils # (A) 0.34 X 10*3/uL (0.04-0.35); Eosinophils % (A) 8.1 %; HCT 27.8 % (39.6-50.0); HGB 8.6 g/dL (13.0-17.0); Lymphocytes # (A) 0.89 X 10*3/uL (0.90-5.00); Lymphocytes % (A) 21.3 %; MCH 32.1 pg (27.0-32.0); MCHC 30.9 g/dL (32.0-37.0); MCV 103.7 FL (80.0-97.0); Mean Platelet Volume 12.8 FL (9.5-12.2); Monocytes % (A) 14.4 %; NRBC Per 100 WBC 0 X 10*3/uL (0.00-0.01); Neutrophils # (A) 2.26 X 10*3/uL (1.80-7.70); Neutrophils % (A) 54.1 %; Platelet Count 136 X 10*3/uL (140-440); RBC 2.68 X 10*6/uL (4.40-5.60); RDW 16.4 % (11.5-14.5); WBC 4.18 X 10*3/uL (4.50-10.00)
[2023-10-23 10:19] LABS: Blood Urea Nitrogen 6.9 mg/dL (9.0-27.0); Glucose 121 mg/dL (70-110)
[2023-10-23 10:20] LABS: Calcium 7.7 mg/dL (8.7-10.3); Carbon Dioxide 19.8 mmol/L (21.6-31.8); Chloride 109 mmol/L (96-109); Magnesium 1.8 mg/dL (1.5-2.4); Potassium 3.9 mmol/L (3.5-5.5); Sodium 138 mmol/L (135-145)
--- NOTE | 2023-10-23 11:25 | P.PN ---
Subjective 10/21/2023: This is a 48-year-old gentleman presented to the ER with postoperative surgical site bleeding, fevers and pain. Reports he had hernia repair at [facility] on 530 and was discharged home on Wednesday, October 18, 2023. Afebrile, Tmax 99.4, normal WBC. Hemoglobin decreased to 8.4, receiving IV fluid hydration. Renal function stable.CT of abdomen pelvis CT of abdomen pelvis reported anterior abdominal wall seroma/abscess, appears to communicate with surgical site at its inferior most extent. Denies chest pain, palpitations or shortness of breath. Maintaining O2 sats in the high 90s on room air. Pain controlled. .Evaluated by general surgery, binder applied with reevaluation pending. 10/22/2023 home status post evacuation of incisional abdominal wall hematoma, postop day #1. Tolerated procedure well, pain controlled. Tolerating diet, no nausea vomiting. Afebrile, WBC 4.7. Hemoglobin 8.4, platelets 153. Denies chest pain, palpitations or shortness of breath. Maintaining O2 sats in the high 90s on room air. 10/23/2023: Patient is reevaluated. He is postop day 2 surgical exploration of his wound. He had a hernia repair done several weeks ago at another facility. Dr. Lizarraga is currently following him here. Vital signs remained stable. Labs show slight anemia now at 8.6. Better remained stable. Electrolytes are normal as well. Romie's complaint is edema. He was given 20 Lasix SCDs last night and his IV fluids have been dropped to KVO. He denies any chest pains or shortness of breath. Objective - Vital Signs Vital signs: Vital Signs Temp 98.0 F 10/23/23 07:00 Pulse 62 10/23/23 07:00 Resp 16 10/23/23 07:00 BP 108/63 10/23/23 07:00 Pulse Ox 96 10/23/23 07:00 FiO2 Intake & Output 10/22/23 10/23/23 10/23/23 18:59 06:59 18:59 Intake Total 1811 Output Total 1320 1430 90 Balance 491 -1430 -90 Intake: Oral 1811 Output: Drainage 70 230 90 Abdomen 40 140 60 Left Abdomen 30 90 30 Urine 1250 1200 Other: Voiding Method Urinal - Exam General: The patient is awake and alert, in no distress, he has abdominal binder and surgical drains in place on his abdomen. Neck: The neck is supple, there is no thyromegaly, lymphadenopathy, tenderness or JVD. Cardiovascular: S1S2 is normal, There is a regular rate and rhythm. No murmur, rub or gallop is appreciated. Respiratory: Lungs are clear to auscultation bilaterally, respirations are non-labored, breath sounds are equal. Gastrointestinal: Soft, positive bowel sounds, abdominal binder in place, [address] Musculoskeletal: Normal ROM, no tenderness, There is no pedal edema. There is no calf tenderness or swelling. No cords were appreciated. Neurological: CN II-XII intact, there are no obvious motor or sensory deficits. Coordination appears grossly intact. Speech is normal. Skin: Skin is warm and dry and no rashes or lesions are noted. - Labs CBC & Chem 7: 10/23/23 04:30 10/23/23 04:26 Labs: Abnormal Lab Results - Last 24 Hours (Table) 10/22/23 10/23/23 10/23/23 Range/Units 09:27 04:26 04:30 WBC 4.18 L (4.50-10.00) X 10*3/uL RBC 2.68 L (4.40-5.60) X 10*6/uL Hgb 8.6 L (13.0-17.0) g/dL Hct 27.8 L (39.6-50.0) % MCV 103.7 H (80.0-97.0) FL MCH 32.1 H (27.0-32.0) pg MCHC 30.9 L (32.0-37.0) g/dL RDW 16.4 H (11.5-14.5) % Plt Count 136 L (140-440) X 10*3/uL MPV 12.8 H (9.5-12.2) FL Lymphocytes # 0.7 L 0.89 L (1.0-4.8) k/uL Carbon Dioxide 19.8 L (21.6-31.8) mmol/L BUN 6.9 L (9.0-27.0) mg/dL Creatinine 0.5 L (0.6-1.5) mg/dL Glucose 121 H (70-110) mg/dL Calcium 7.7 L (8.7-10.3) mg/dL Microbiology - Last 24 Hours (Table) 10/21/23 22:30 Gram Stain - Preliminary Abdomen Wound Culture - Preliminary Enterobacter aerogenes Assessment and Plan (1) Protein-calorie malnutrition, moderate Current Visit: Yes Status: Acute Code(s): E44.0 - MODERATE PROTEIN-CALORIE MALNUTRITION SNOMED Code(s): 391797310 (2) Abdominal wall hematoma Current Visit: Yes Status: Acute Code(s): S30.1XXA - CONTUSION OF ABDOMINAL WALL, INITIAL ENCOUNTER SNOMED Code(s): 326933833 (3) Postoperative bleeding from incision Current Visit: Yes Status: Acute Code(s): IIN9706 - SNOMED Code(s): 850417902 (4) Abdominal pain Current Visit: No Status: Acute Code(s): R10.9 - UNSPECIFIED ABDOMINAL PAIN SNOMED Code(s): 57408790 (5) Acute blood loss anemia Current Visit: No Status: Acute Code(s): D62 - ACUTE POSTHEMORRHAGIC ANEMIA SNOMED Code(s): 882070702 (6) Alcoholic liver disease Current Visit: No Status: Acute Code(s): K70.9 - ALCOHOLIC LIVER DISEASE, UNSPECIFIED SNOMED Code(s): 58113303 (7) Smoker Current Visit: No Status: Acute Code(s): F17.200 - NICOTINE DEPENDENCE, UNSPECIFIED, UNCOMPLICATED SNOMED Code(s): 76401090 Plan: Will continue to monitor electrolytes and other labs including hemoglobin due to his anemia and history of cirrhosis. He also has the protein deficiency. He w ill be on high-protein diet. Will monitor other functions. He will continue on atenolol for hypertension he will need IV antibiotics of cefazolin per surgery will remain on his pain medications as ordered. Will continue to follow with you. Will repeat labs in AM. He will be reevaluated next 24 hours.
[2023-10-23] MEDS: FUROSEMIDE 10 MG/ML 4 ML VIAL IV SCH (12:39)
--- NOTE | 2023-10-23 16:15 | P.PN ---
Progress Note - Text Progress Note Date: 10/23/23 CHIEF COMPLAINT: Abdominal wall hematoma HISTORY OF PRESENT ILLNESS: NAEO. Pain is controlled. PHYSICAL EXAM: VITAL SIGNS: Reviewed. GENERAL: Well-developed in no acute distress. HEENT: No sclera icterus. Extraocular movements grossly intact. Moist buccal mucosa. Head is atraumatic, normocephalic. ABDOMEN: Soft. Mildly distended. Abdominal binder in place. 2 MAYRA drains. NEUROLOGIC: Alert and oriented. Cranial nerves II through XII grossly intact. ASSESSMENT: 1. Postoperative abdominal wall hematoma status post open ventral hernia repair s/p Debridement 2. Acute blood loss anemia 3. Alcohol cirrhosis 4. History of illicit drug use 5. Tobacco abuse disorder 6. Pyrexia 7. Abdominal wall fat necrosis PLAN: -Continue regular diet -Continue abdominal binder. No one is to touch or remove the abdominal binder -Continue to monitor MAYRA drain output -Continue to monitor hemoglobin -Encourage patient to quit smoking -Encourage patient to increase activity level -Continue pain management
--- NOTE | 2023-10-24 09:55 | P.PN ---
Subjective Progress Note Date: 10/24/23 patient [place] stable. On exam vital signs appear stable. Abdomen soft. Surgical dressings in place. Status post drainage of abdominal wall hematoma. Patient will continue receive supportive care. Objective - Vital Signs Vital signs: Vital Signs Temp 98.8 F 10/24/23 07:00 Pulse 67 10/24/23 07:00 Resp 16 10/24/23 07:00 BP 110/63 10/24/23 07:00 Pulse Ox 97 10/24/23 07:00 FiO2 Intake & Output 10/23/23 10/24/23 10/24/23 18:59 06:59 18:59 Intake Total 711 Output Total 150 800 510 Balance -150 -800 201 Intake: Oral 711 Output: Drainage 150 60 Abdomen 120 40 Left Abdomen 30 20 Urine 800 450 Other: Voiding Method Urinal Urinal - Labs CBC & Chem 7: 10/23/23 04:30 10/23/23 04:26 Labs: Abnormal Lab Results - Last 24 Hours (Table) 10/23/23 10/23/23 Range/Units 04:26 04:30 WBC 4.18 L (4.50-10.00) X 10*3/uL RBC 2.68 L (4.40-5.60) X 10*6/uL Hgb 8.6 L (13.0-17.0) g/dL Hct 27.8 L (39.6-50.0) % MCV 103.7 H (80.0-97.0) FL MCH 32.1 H (27.0-32.0) pg MCHC 30.9 L (32.0-37.0) g/dL RDW 16.4 H (11.5-14.5) % Plt Count 136 L (140-440) X 10*3/uL MPV 12.8 H (9.5-12.2) FL Lymphocytes # 0.89 L (0.90-5.00) X 10*3/uL Carbon Dioxide 19.8 L (21.6-31.8) mmol/L BUN 6.9 L (9.0-27.0) mg/dL Creatinine 0.5 L (0.6-1.5) mg/dL Glucose 121 H (70-110) mg/dL Calcium 7.7 L (8.7-10.3) mg/dL Microbiology - Last 24 Hours (Table) 10/21/23 22:30 Gram Stain - Final Abdomen Wound Culture - Final Enterobacter aerogenes
[2023-10-24 10:06] LABS: ALT 24 U/L (10-49); AST 40 U/L (14-35); Albumin 2.5 g/dL (3.8-4.9); Albumin/Globulin Ratio 1.19 Ratio (1.60-3.17); Alkaline Phosphatase 76 U/L (41-126); Blood Urea Nitrogen 8.4 mg/dL (9.0-27.0); Calcium 7.8 mg/dL (8.7-10.3); Carbon Dioxide 21.1 mmol/L (21.6-31.8); Chloride 105 mmol/L (96-109); Globulin 2.1 g/dL (1.6-3.3); Glucose 117 mg/dL (70-110); Magnesium 1.5 mg/dL (1.5-2.4); Potassium 3.7 mmol/L (3.5-5.5); Sodium 137 mmol/L (135-145); Total Bilirubin 0.7 mg/dL (0.3-1.2); Total Protein 4.6 g/dL (6.2-8.2)
[2023-10-24 11:30] LABS: Basophils # (A) 0.05 X 10*3/uL (0.00-0.10); Basophils % (A) 1.5 %; Eosinophils # (A) 0.41 X 10*3/uL (0.04-0.35); Eosinophils % (A) 12.2 %; HCT 26.3 % (39.6-50.0); HGB 8.1 g/dL (13.0-17.0); Lymphocytes # (A) 0.63 X 10*3/uL (0.90-5.00); Lymphocytes % (A) 18.8 %; MCH 32.5 pg (27.0-32.0); MCHC 30.8 g/dL (32.0-37.0); MCV 105.6 FL (80.0-97.0); Monocytes # (A) 0.61 X 10*3/uL (0.20-1.00); Monocytes % (A) 18.2 %; NRBC Per 100 WBC 0 X 10*3/uL (0.00-0.01); Neutrophils # (A) 1.63 X 10*3/uL (1.80-7.70); Neutrophils % (A) 48.7 %; Platelet Count 134 X 10*3/uL (140-440); RBC 2.49 X 10*6/uL (4.40-5.60); RBC Morphology Normal (Normal); RDW 16.4 % (11.5-14.5); WBC 3.35 X 10*3/uL (4.50-10.00)
[2023-10-24 11:38] LABS: INR 1.18 sec (0.93-1.11); Prothrombin Time 12.6 sec (9.9-11.9)
--- NOTE | 2023-10-24 12:01 | P.PN ---
Subjective 10/21/2023: This is a 48-year-old gentleman presented to the ER with postoperative surgical site bleeding, fevers and pain. Reports he had hernia repair at [facility] on 530 and was discharged home on Wednesday, October 18, 2023. Afebrile, Tmax 99.4, normal WBC. Hemoglobin decreased to 8.4, receiving IV fluid hydration. Renal function stable.CT of abdomen pelvis CT of abdomen pelvis reported anterior abdominal wall seroma/abscess, appears to communicate with surgical site at its inferior most extent. Denies chest pain, palpitations or shortness of breath. Maintaining O2 sats in the high 90s on room air. Pain controlled. .Evaluated by general surgery, binder applied with reevaluation pending. 10/22/2023 home status post evacuation of incisional abdominal wall hematoma, postop day #1. Tolerated procedure well, pain controlled. Tolerating diet, no nausea vomiting. Afebrile, WBC 4.7. Hemoglobin 8.4, platelets 153. Denies chest pain, palpitations or shortness of breath. Maintaining O2 sats in the high 90s on room air. 10/23/2023: Patient is reevaluated. He is postop day 2 surgical exploration of his wound. He had a hernia repair done several weeks ago at another facility. Dr. Lizarraga is currently following him here. Vital signs remained stable. Labs show slight anemia now at 8.6. Better remained stable. Electrolytes are normal as well. Romie's complaint is edema. He was given 20 Lasix SCDs last night and his IV fluids have been dropped to KVO. He denies any chest pains or shortness of breath. October 24, 2023: Patient is resting comfortably. He is status post postop day 3 surgical exploration of the wound. He is doing well today. Tolerating his diet. Swelling is improved. No chest pains no shortness of breath no nausea or vomiting. Hemoglobin this morning is 8.1. INR slightly elevated 1.18. He remains on his abdominal binder with wound drains in place. Objective - Vital Signs Vital signs: Vital Signs Temp 98.8 F 10/24/23 07:00 Pulse 67 10/24/23 07:00 Resp 16 10/24/23 07:00 BP 110/63 10/24/23 07:00 Pulse Ox 97 10/24/23 07:00 FiO2 Intake & Output 10/23/23 10/24/23 10/24/23 18:59 06:59 18:59 Intake Total 711 Output Total 211 697 7257 Balance -380 -800 -459 Intake: Oral 711 Output: Drainage 150 60 Abdomen 120 40 Left Abdomen 30 20 Urine 800 1110 Other: Voiding Method Urinal Urinal - Exam General: The patient is awake and alert, in no distress, he has abdominal binder and surgical drains in place on his abdomen. Neck: The neck is supple, there is no thyromegaly, lymphadenopathy, tenderness or JVD. Cardiovascular: S1S2 is normal, There is a regular rate and rhythm. No murmur, rub or gallop is appreciated. Respiratory: Lungs are clear to auscultation bilaterally, respirations are non-labored, breath sounds are equal. Gastrointestinal: Soft, positive bowel sounds, abdominal binder in place, [address] Musculoskeletal: Normal ROM, no tenderness, There is trace pedal edema. There is no calf tenderness or swelling. No cords were appreciated. Overall improved Neurological: CN II-XII intact, there are no obvious motor or sensory deficits. Coordination appears grossly intact. Speech is normal. Skin: Skin is warm and dry and no rashes or lesions are noted. - Labs CBC & Chem 7: 10/24/23 05:50 10/24/23 05:50 Labs: Abnormal Lab Results - Last 24 Hours (Table) 10/24/23 10/24/23 10/24/23 Range/Units 05:50 05:50 05:50 WBC 3.35 L (4.50-10.00) X 10*3/uL RBC 2.49 L (4.40-5.60) X 10*6/uL Hgb 8.1 L (13.0-17.0) g/dL Hct 26.3 L (39.6-50.0) % MCV 105.6 H (80.0-97.0) FL MCH 32.5 H (27.0-32.0) pg MCHC 30.8 L (32.0-37.0) g/dL RDW 16.4 H (11.5-14.5) % Plt Count 134 L (140-440) X 10*3/uL MPV 13.0 H (9.5-12.2) FL Neutrophils # 1.63 L (1.80-7.70) X 10*3/uL Lymphocytes # 0.63 L (0.90-5.00) X 10*3/uL Eosinophils # 0.41 H (0.04-0.35) X 10*3/uL PT 12.6 H (9.9-11.9) sec INR 1.18 H (0.93-1.11) sec Carbon Dioxide 21.1 L (21.6-31.8) mmol/L BUN 8.4 L (9.0-27.0) mg/dL Creatinine 0.5 L (0.6-1.5) mg/dL Glucose 117 H (70-110) mg/dL Calcium 7.8 L (8.7-10.3) mg/dL AST 40 H (14-35) U/L Total Protein 4.6 L (6.2-8.2) g/dL Albumin 2.5 L (3.8-4.9) g/dL Albumin/Globulin Ratio 1.19 L (1.60-3.17) Ratio Microbiology - Last 24 Hours (Table) 10/21/23 22:30 Gram Stain - Final Abdomen Wound Culture - Final Enterobacter aerogenes Assessment and Plan (1) Postoperative bleeding from incision Current Visit: Yes Status: Acute Code(s): SMY1503 - SNOMED Code(s): 150869362 (2) Abdominal wall hematoma Current Visit: Yes Status: Acute Code(s): S30.1XXA - CONTUSION OF ABDOMINAL WALL, INITIAL ENCOUNTER SNOMED Code(s): 588648374 (3) Protein-calorie malnutrition, moderate Current Visit: Yes Status: Acute Code(s): E44.0 - MODERATE PROTEIN-CALORIE MALNUTRITION SNOMED Code(s): 644897174 (4) Abdominal pain Current Visit: No Status: Acute Code(s): R10.9 - UNSPECIFIED ABDOMINAL PAIN SNOMED Code(s): 72569358 (5) Acute blood loss anemia Current Visit: No Status: Acute Code(s): D62 - ACUTE POSTHEMORRHAGIC ANEMIA SNOMED Code(s): 677950397 (6) Alcoholic liver disease Current Visit: No Status: Acute Code(s): K70.9 - ALCOHOLIC LIVER DISEASE, UNSPECIFIED SNOMED Code(s): 36481038 (7) Smoker Current Visit: No Status: Acute Code(s): F17.200 - NICOTINE DEPENDENCE, UNSPECIFIED, UNCOMPLICATED SNOMED Code(s): 79802831 Plan: Will continue his current medications and treatments. Will continue to follow with you. Will repeat labs in AM. He will be reevaluated next 24 hours.
[2023-10-25 02:05] VITALS: TEMP 98.5
[2023-10-25 07:19] LABS: African American GFR (CKD) >90 (>60 ml/min/1.73 sqM); Anion Gap 2 mmol/L; Blood Urea Nitrogen 9 mg/dL (9-20); Calcium 7.9 mg/dL (8.4-10.2); Carbon Dioxide 26 mmol/L (22-30); Chloride 108 mmol/L (98-107); Glucose 102 mg/dL (74-99); Non-African American GFR(CKD) >90 (>60 ml/min/1.73 sqM); Potassium 3.4 mmol/L (3.5-5.1); Sodium 136 mmol/L (137-145)
[2023-10-25 07:47] VITALS: RESP 16
[2023-10-25 08:23] LABS: INR 1.1 (<1.2); Prothrombin Time 11.9 sec (10.0-12.5)
--- NOTE | 2023-10-25 13:15 | P.PN ---
Subjective Progress Note Date: 10/25/23 CHIEF COMPLAINT: Abdominal wall hematoma HISTORY OF PRESENT ILLNESS: Patient postop day #4 status post evacuation of incisional abdominal wall hematoma. Pain is controlled. Denies any nausea or vomiting. Tolerating diet. Afebrile. Hemoglobin stable 8.1. MAYRA drains with serosanguineous output PHYSICAL EXAM: VITAL SIGNS: Reviewed. GENERAL: Well-developed in no acute distress. ABDOMEN: Soft. Nondistended. Abdominal binder in place. 2 MAYRA drains. Abdominal binder removed by Dr. Lizarraga. Prevena wound VAC dressing removed. Incision clean dry and intact. NEUROLOGIC: Alert and oriented. Cranial nerves II through XII grossly intact. ASSESSMENT: 1. Postoperative abdominal wall hematoma status post open ventral hernia repair 2. Acute blood loss anemia 3. Alcohol cirrhosis 4. History of illicit drug use 5. Tobacco abuse disorder 6. Pyrexia 7. Abdominal wall fat necrosis PLAN: -Optifoam silver dressing applied to incision. Optifoam dressing applied around MAYRA drains. -Patient can be discharged from surgical service -Recommend that patient follows up with Dr. Hdez within the next week -Continue high protein diet 90 g daily -Abdominal binder to be worn at all times for 2 weeks. No showering. Patient may sponge bath around binder. -Nicotine avoidance Physician Trial Management Associate note has been reviewed by physician. Signing provider agrees with the documented findings, assessment, and plan of care. Objective - Vital Signs Vital signs: Vital Signs Temp 98.5 F 10/25/23 07:46 Pulse 60 10/25/23 07:46 Resp 16 10/25/23 07:46 BP 118/69 10/25/23 07:46 Pulse Ox 99 10/25/23 07:46 FiO2 Intake & Output 10/24/23 10/25/23 10/25/23 18:59 06:59 18:59 Intake Total 2938 Output Total 1170 360 Balance 1768 -360 Intake: Oral 2938 Output: Drainage 60 60 Abdomen 40 40 Left Abdomen 20 20 Urine 1110 300 Other: # Voids 1 - Labs CBC & Chem 7: 10/24/23 05:50 10/25/23 05:43 Labs: Abnormal Lab Results - Last 24 Hours (Table) 10/25/23 Range/Units 05:43 Sodium 136 L (137-145) mmol/L Potassium 3.4 L (3.5-5.1) mmol/L Chloride 108 H (98-107) mmol/L Creatinine 0.39 L (0.66-1.25) mg/dL Glucose 102 H (74-99) mg/dL Calcium 7.9 L (8.4-10.2) mg/dL Microbiology - Last 24 Hours (Table) 10/21/23 22:30 Anaerobic Culture - Preliminary Abdominal Fluid 10/21/23 22:30 Gram Stain - Final Abdomen Wound Culture - Final Enterobacter aerogenes
[2023-10-25 15:13] VITALS: BP 100/55; PULSE 80
--- NOTE | 2023-10-25 16:17 | P.DS ---
Providers Date of admission: 10/20/23 17:13 Expected date of discharge: 10/25/23 Attending physician: James Meza Consults: 10/20/23 17:13 Consult Physician Routine Consulting Provider: Vanessa Lizarraga Consult Reason/Comments: postoperative bleeding Do you want consulting provider notified?: Yes Primary care physician: [facility] Course: Final Diagnoses: Recent ventral hernia repair, postoperative bleeding secondary to abdominal wall hematoma. Status post open ventral hernia repair. Acute blood loss anemia in a patient with history of chronic anemia, secondary to the above History of esophageal varices with multiple bandings Alcoholic cirrhosis of liver, Portal hypertension History of ascites with multiple paracentesis Alcohol dependence History of polysubstance abuse including cocaine, heroin, marijuana Hyperammonia Noncompliance Chronic alcoholic hepatitis Chronic nicotine dependence History of nephrolithiasis Hospital course:This is a 48-year-old gentleman presented to the ER with postoperative surgical site bleeding, fevers and pain. Reports he had hernia repair at [facility] on 530 and was discharged home on Wednesday, October 18, 2023. Afebrile, Tmax 99.4, normal WBC. Hemoglobin decreased to 8.4, receiving IV fluid hydration. Renal function stable.CT of abdomen pelvis CT of abdomen pelvis reported anterior abdominal wall seroma/abscess, appears to communicate with surgical site at its inferior most extent. Denies chest pain, palpitations or shortness of breath. Maintaining O2 sats in the high 90s on room air. Pain controlled. .Evaluated by general surgery, binder applied with reevaluation pending. 10/22/2023 home status post evacuation of incisional abdominal wall hematoma, postop day #1. Tolerated procedure well, pain controlled. Tolerating diet, no nausea vomiting. Afebrile, WBC 4.7. Hemoglobin 8.4, platelets 153. Denies chest pain, palpitations or shortness of breath. Maintaining O2 sats in the high 90s on room air. IV fluid hydration. Pain management and DVT prophylaxis as per general surgery. Aggressive pulmonary toileting with incentive spirometer ordered. Smoking cessation reinforced. Increase activity as tolerated. Discharge planning in progress, pending final DC recommendations and clearance per general surgery Significant clinical improvement. Pain controlled. Afebrile. Hemoglobin stable 8.1. Patient will be discharged home today in a stable condition with guarded prognosis pending final DC recommendations/antibiotics/pain management/wound care and clearance for discharge as per general surgery. Maintain high-protein diet. Continue aggressive pulmonary toileting with incentive spirometer every hour x 10 while awake. Follow-up with PCP this week in the next 2 to 3 days days. The impression and plan of care has been dictated as directed. : I performed a history and examination of this patient, discussed the same with the dictator. I agree with the dictator's note ,documented as a scribe. Any additional findings or plans will be noted. Patient Condition at Discharge: Stable Plan - Discharge Summary Discharge Rx Participant: No New Discharge Prescriptions: New Nicotine 21Mg/24Hr Patch [Habitrol] 1 patch TRANSDERM DAILY patch Continue Lactulose 45 gm PO BID-W/MEALS oxyCODONE HCL [OxyIR] 5 mg PO Q6H Albuterol Sulfate [Ventolin HFA] 1 - 2 puff INHALATION RT-Q6H PRN PRN Reason: Shortness Of Breath atenoloL 25 mg PO DAILY Acetaminophen Tab [Tylenol] 1,000 mg PO Q6HR PRN PRN Reason: Pain Or Fever > 100.5 Discharge Medication List Lactulose 45 gm PO BID-W/MEALS 12/26/19 [History] Acetaminophen Tab [Tylenol] 1,000 mg PO Q6HR PRN 10/20/23 [History] Albuterol Sulfate [Ventolin HFA] 1 - 2 puff INHALATION RT-Q6H PRN 10/20/23 [History] atenoloL 25 mg PO DAILY 10/20/23 [History] oxyCODONE HCL [OxyIR] 5 mg PO Q6H 10/20/23 [History] Nicotine 21Mg/24Hr Patch [Habitrol] 1 patch TRANSDERM DAILY patch 10/21/23 [Rx] Follow up Appointment(s)/Referral(s): James Meza Jr, DO [Primary Care Provider] - 3 Days Vanessa Lizarraga MD [STAFF PHYSICIAN] - 11/02/23 Patient Instructions/Handouts: Abdominal Binder (DC) Activity/Diet/Wound Care/Special Instructions: Follow-up with surgeon. Abdominal binder to be worn at all times for 2 weeks. No showering. Patient may sponge bath around binder. No lifting over 4 pounds for 4 weeks. Continue thigh high teds Keep a log of MAYRA drain output and bring with you to your follow-up appointment Milk/strip drains 2-3 times a day Discharge Disposition: HOME SELF-CARE
[2023-10-25 16:32] LABS: NT-Pro-B-Type Natriuretic Pept 76 pg/mL (0-125)
== END 2023-10-25 16:51 | disposition home or self-care (01) | DRG 793 ==
LOC: EC 11:12 → 4SSUR 17:13 → OBSVTOIN 17:13 → 1SOBS 17:55 → 6NMEDSUR 10-21 22:52
PROVIDERS: ADMIT Family Medicine; ATTEND Family Medicine
PROC: 0WCG0ZZ Extirpation of Matter from Peritoneal Cavity, Open Approach (ICD-10-PCS; 2023-10-21)
PROC: 0W3F0ZZ Control Bleeding in Abdominal Wall, Open Approach (ICD-10-PCS; 2023-10-21)
PROC: 0JB80ZZ Excision of Abdomen Subcutaneous Tissue and Fascia, Open Approach (ICD-10-PCS; principal; 2023-10-21 11:25)
DX: K91.870 Postprocedural hematoma of a digestive system organ or structure following a digestive system procedure (principal); T81.31XA Disruption of external operation (surgical) wound, not elsewhere classified, initial encounter; E44.0 Moderate protein-calorie malnutrition; L76.22 Postprocedural hemorrhage of skin and subcutaneous tissue following other procedure; I11.9 Hypertensive heart disease without heart failure; K65.4 Sclerosing mesenteritis; K70.10 Alcoholic hepatitis without ascites; K76.6 Portal hypertension; D62 Acute posthemorrhagic anemia; F10.20 Alcohol dependence, uncomplicated; F14.11 Cocaine abuse, in remission; F12.11 Cannabis abuse, in remission; F17.200 Nicotine dependence, unspecified, uncomplicated; F31.9 Bipolar disorder, unspecified; F41.9 Anxiety disorder, unspecified; F43.10 Post-traumatic stress disorder, unspecified; J45.909 Unspecified asthma, uncomplicated; Z79.899 Other long term (current) drug therapy; Z85.07 Personal history of malignant neoplasm of pancreas; Z87.01 Personal history of pneumonia (recurrent); Z87.442 Personal history of urinary calculi; Z91.199 Patient's noncompliance with other medical treatment and regimen due to unspecified reason; Z68.26 Body mass index [BMI] 26.0-26.9, adult
CPT/HCPCS: 36410; 36415; 71045; 74177; 76937; 80048; 80053; 82150; 83605; 83690; 83735; 83880; 84100; 84484; 85025; 85610; 85730; 86850; 86900; 86901; 87070; 87075; 87077; 87186; 87205; 96361; 96365; 96366; 96375; 96376; 99285

== ENCOUNTER → 2023-11-05 | Outpatient (CLI) | payer OTHER ==
[2023-11-05 15:19] LABS: ALT 42 U/L (10-49); AST 65 U/L (14-35); Albumin 3.3 g/dL (3.8-4.9); Albumin/Globulin Ratio 1.18 Ratio (1.60-3.17); Alkaline Phosphatase 136 U/L (41-126); BUN/Creat Ratio 22.29 Ratio (12.00-20.00); Blood Urea Nitrogen 15.6 mg/dL (9.0-27.0); Carbon Dioxide 22.6 mmol/L (21.6-31.8); Chloride 112 mmol/L (96-109); Globulin 2.8 g/dL (1.6-3.3); Glucose 119 mg/dL (70-110); Potassium 4.5 mmol/L (3.5-5.5); Sodium 146 mmol/L (135-145); Total Bilirubin 0.5 mg/dL (0.3-1.2); Total Protein 6.1 g/dL (6.2-8.2)
[2023-11-05 15:27] LABS: Basophils # (A) 0.09 X 10*3/uL (0.00-0.10); Basophils % (A) 1.9 %; Eosinophils # (A) 0.22 X 10*3/uL (0.04-0.35); Eosinophils % (A) 4.6 %; HCT 34.3 % (39.6-50.0); HGB 10.2 g/dL (13.0-17.0); Lymphocytes # (A) 0.93 X 10*3/uL (0.90-5.00); Lymphocytes % (A) 19.5 %; MCH 30.9 pg (27.0-32.0); MCHC 29.7 g/dL (32.0-37.0); MCV 103.9 FL (80.0-97.0); Mean Platelet Volume 11.8 FL (9.5-12.2); Monocytes # (A) 0.53 X 10*3/uL (0.20-1.00); Monocytes % (A) 11.1 %; NRBC Per 100 WBC 0 X 10*3/uL (0.00-0.01); Neutrophils # (A) 2.99 X 10*3/uL (1.80-7.70); Neutrophils % (A) 62.7 %; Platelet Count 187 X 10*3/uL (140-440); RDW 16.8 % (11.5-14.5); WBC 4.77 X 10*3/uL (4.50-10.00)
== END | disposition home or self-care (01) ==
LOC: LABWHC1 12:11
PROVIDERS: ATTEND Family Medicine
DX: K76.9 Liver disease, unspecified (principal); G89.18 Other acute postprocedural pain; T81.30XA Disruption of wound, unspecified, initial encounter
CPT/HCPCS: 36415; 80053; 85025

== ENCOUNTER → 2023-11-10 | Outpatient (CLI) | payer OTHER ==
[2023-11-10 12:40] VITALS: BP 154/70; PULSE 59; RESP 16
--- NOTE | 2023-11-10 14:53 | P.PAINPG ---
PQRS Measure Charge Sheet Comment: HISTORY OF PRESENT ILLNESS: A 48 yr old male as a referral from Dr Meza presents today w severe and chronic abdominal pain secondary to Hx of pancreatic CA and pancreatitis for evaluation. Pt states pain level is provoked at 7 /10 in intensity, constant, localized in the upper abd, burning in character w occasional shooting pain towards the back. Pain is provoked by meals, multiple abdominal surgeries. Pain is alleviated by heat, medications (Agenda), repositioning and rest . PMH: OA, Asthma, GERD, Fatty Liver Disease w Cirrhosis, Portal Vein Hypertension, Renal Disease, Pancreatitis, Nephrolithiasis, MDD/ Anxiety/ PTSD PSH: Appendectomy, Cholecystectomy, L Inguinal Hernia, Hernia Repair (2023), R Knee Arthroscopy, Colonoscopy/ EGD, Cystoscopy for Stone Removal SH: Daily tobacco use, Hx of ETOH abuse, Cocaine/ Heroin Abuse/ Cannabis use FH: Mo- No Reported History. Fa- Brain Aneurysm All: See list Meds: See list REVIEW OF ORGAN SYSTEMS: CONSTITUTIONAL: No fevers or chills. No recent weight loss. NEUROLOGICAL: + numbness and tingling along the distal extremities. No seizure disorders or headaches. MUSCULOSKELETAL: + pain PSYCHIATRIC: Denies current depression or suicidal th oughts. Physical Examinations : Constitutional : Cooperative , not in acute distress . Neurologic : Cranial nerve II to XII intact. No focal neurological deficits. Psychiatric : alert & oriented x 3. Matching mood & appropriate affect. Judgment & insight intact. Musculoskeletal : +Abd Guarding, +Abd Distention, +Drain Tubes in place Cervical Spine Motor strength in the deltoid and biceps: Normal right side. Normal Left side Motor strength biceps and the wrist extensors: Normal right side . Normal left side Motor strength in the triceps muscle: Normal right side. Normal left side Deep tendon reflexes: Normal at the biceps. Normal at Brachioradialis. Normal at triceps Vertebral body tenderness to deep palpation over Cervical facet loading test: positive bilaterally Spurling test: positive bilaterally Neck distraction test: positive bilaterally Reina sign: positive bilaterally Lumbar spine Motor strength lower extremities ,thigh and legs 5/5 Right side , 5/5 Left side Deep tendon reflexes : Normal Knee Jerk. Normal Ankle Jerk Vertebral body tenderness over Murillo Test positive Lumbar facet Loading Test: positive Right / positive Left Range of motion of the lumbar spine Flexion 30 degrees, extension 10 degrees Straight Leg Raise test: Left/ Right positive at degrees Terri test: positive right / positive left. Severe tenderness over the Sacroiliac joint on the Right / Left sides Gaenslen test: positive bilaterally Seated flexion test: positive bilaterally. Sacral spine : Severe tenderness over the Sacroiliac joint: right side / left side Range of motion: Flexion of the lumbar spine <60 degrees Range of motion: Extension of the lumbar spine <20 degrees Gaenslen's Test positive Terri test: positive right side / left side Thigh Thrust Test Sacral Thrust Test Assessment/ Plan : Chronic Abdominal Pain secondary to Pancreatic CA, Pancreatitis Recommendation of Celiac Plexus Nerve Block #1. May need a series of injections for optimal pain relief. Risks, benefits of procedure discussed and patient verbalized understanding. Admits to anti- coagulant use or medical history of diabetes. Protocol for discontinuation/ continuation of medications vincent procedure discussed. Minimal anesthesia provided, if clinically indicated, consisting of Versed and Fentanyl. Recommendation of medication management. Agenda 10/325mg #90 w 1 RF. Use, side effects, adverse reactions, safe storage discussed. Opiate/ narcotic agreement signed 11/10/23. All questions answered. I have spent greater than 30 minutes on patient care today. Dr Patel was available by phone for the evaluation of this patient. The time was used to review the medical records including relevant urine studies and Prescription history (MAPs), review of the available imaging, evaluation and examination of the patient, coordination of care with the medical staff and if applicable referring physicians, as well as creation of the medical record PQRS Narrative: Smoking Status Current every day smoker Home Medications: Ambulatory Orders HYDROcodone/APAP 10-325MG [Agenda 10-325] 1 tab PO TID PRN 30 Days #90 tab 11/10/23 HYDROcodone/APAP 10-325MG [Agenda 10-325] 1 tab PO TID PRN 30 Days #90 tab Controlled Substance Measures - Controlled Substance Measures Is patient prescribed a controlled substance at discharge?: Yes When asked, does pt state using other controlled substances?: No If prescribed controlled substance>3 days was MAPS reviewed?: Yes If Rx opioid, was Start Talking consent form obtained?: Yes Was information provided regarding opioid addiction?: Yes
== END ==
LOC: PNWHC3 12:21
PROVIDERS: ATTEND Specialist
DX: G89.18 Other acute postprocedural pain (principal); K85.90 Acute pancreatitis without necrosis or infection, unspecified; R10.9 Unspecified abdominal pain; C25.9 Malignant neoplasm of pancreas, unspecified; F17.200 Nicotine dependence, unspecified, uncomplicated
CPT/HCPCS: 99211

== ENCOUNTER → 2023-11-12 | Outpatient (CLI) | payer OTHER ==
[2023-11-12 18:17] LABS: Basophils # (A) 0.07 X 10*3/uL (0.00-0.10); Basophils % (A) 1.4 %; Eosinophils # (A) 0.24 X 10*3/uL (0.04-0.35); Eosinophils % (A) 4.7 %; HCT 36.5 % (39.6-50.0); HGB 11.3 g/dL (13.0-17.0); Lymphocytes # (A) 0.86 X 10*3/uL (0.90-5.00); Lymphocytes % (A) 16.8 %; MCH 31.8 pg (27.0-32.0); MCV 102.8 FL (80.0-97.0); Mean Platelet Volume 12.7 FL (9.5-12.2); Monocytes # (A) 0.67 X 10*3/uL (0.20-1.00); Monocytes % (A) 13.1 %; NRBC Per 100 WBC 0 X 10*3/uL (0.00-0.01); Neutrophils # (A) 3.26 X 10*3/uL (1.80-7.70); Neutrophils % (A) 63.6 %; Platelet Count 117 X 10*3/uL (140-440); RBC 3.55 X 10*6/uL (4.40-5.60); RBC Morphology Normal (Normal); RDW 17.1 % (11.5-14.5); WBC 5.12 X 10*3/uL (4.50-10.00)
[2023-11-12 18:30] LABS: Erythrocyte Sedimentation Rate 18 mm/Hr (0-15)
== END | disposition home or self-care (01) ==
LOC: LABWHC1 10:17
PROVIDERS: ATTEND Family Medicine
DX: Z48.815 Encounter for surgical aftercare following surgery on the digestive system (principal); T81.30XA Disruption of wound, unspecified, initial encounter; K76.9 Liver disease, unspecified
CPT/HCPCS: 36415; 82140; 85025; 85652

== ENCOUNTER 2023-11-29 10:26 | Observation (INO) | payer OTHER ==
--- NOTE | 2023-11-29 10:39 | ED ---
Abdominal Pain HPI - General Chief Complaint: Abdominal Pain Stated Complaint: Abd Pain Time Seen by Provider: 11/29/23 10:39 Source: patient, EMS, RN notes reviewed Mode of arrival: EMS - History of Present Illness Initial Comments: This is a 48 year old male with a complicated past surgical abdominal history who presents to the ER as a transfer from [facility] for continuation of care and LLQ abdominal pain. Patient has had a procedure completed with Dr. Lizarraga, 10/20/23, for evacuation of abdominal wall hematoma and debridement with placement of a wound VAC after complications of a hernia surgery. Currently patient states that abdominal pain has been worsening over the past few days he is experiencing nausea with no vomiting chills and a fever yesterday. Patient states that he was given a dose of IV antibiotics while he was at [facility]. Currently he is endorsing left lower quadrant abdominal pain and nausea. - Related Data Home Medications Medication Instructions Recorded Confirmed Albuterol Inhaler [Ventolin Hfa 1 - 2 puff INHALATION RT-Q4H PRN 11/10/23 11/29/23 Inhaler] Lactulose 20 gm PO TID PRN 11/10/23 11/29/23 Magnesium Oxide [Magnesium] 500 mg PO DAILY 11/10/23 11/29/23 Pantoprazole [Protonix] 40 mg PO BID 11/10/23 11/29/23 Potassium Chloride ER [K-Dur 10] 10 meq PO DAILY 11/10/23 11/29/23 atenoloL 25 mg PO DAILY 11/10/23 11/29/23 Multivit-Mins/Iron/Folic/Lycop 1 tab PO DAILY 11/29/23 11/29/23 [Centrum Men's Tablet] Previous Rx's Medication Instructions Recorded HYDROcodone/APAP 10-325MG [[place] 1 tab PO TID PRN 30 Days #90 tab 11/10/23 10-325] Allergies Allergy/AdvReac Type Severity Reaction Status Date / Time No Known Allergies Allergy Verified 11/29/23 12:02 Review of Systems ROS Statement: Those systems with pertinent positive or pertinent negative responses have been documented in the HPI. ROS Other: All systems not noted in ROS Statement are negative. Past Medical History Past Medical History: Asthma, Cancer, GI Bleed, Liver Disease, Pneumonia, Renal Disease, Skin Disorder Additional Past Medical History / Comment(s): Liver cirrhosis, portal HTN, ab dominal ascities, pancreatitis, upper and lower GI bleeds, bleeding ulcers, esophageal varicies-banded, thrombocytopemia, chronic anemia, gallstones, nephrolithiasis/hematuria, L inguinal hernia, psoriasis; paracentesis, umbilical hernia, left foot injury, pancreatic CA History of Any Multi-Drug Resistant Organisms: MRSA Date of last positivie culture/infection: 12/09/13 MDRO Source:: Right first finger Past Surgical History: Appendectomy, Cholecystectomy, Hernia Repair, Orthopedic Surgery Additional Past Surgical History / Comment(s): EGDs/varicies banding/colonoscopy, paracentesis, right hand tendon repair, right knee arthroscopy, cystoscopy for kidney stone removal, right hand ring finger surgery. surgery for umbilical hernia, Hernia repair on 10/13 at [facility]. Past Anesthesia/Blood Transfusion Reactions: Previous Problems w/ Anesthesia, Motion Sickness Additional Past Anesthesia/Blood Transfusion Reaction / Comment(s): Woke up during scope procedure. Past Psychological History: Anxiety, Bipolar, Depression, PTSD Smoking Status: Current every day smoker Past Alcohol Use History: Occasional Past Drug Use History: None Reported - Past Family History Mother Family Medical History: No Reported History Additional Family Medical History / Comment(s): Mother has health issues from a MVA-pt did not elaborate. Father Family Medical History: Vascular Disorder Additional Family Medical History / Comment(s): Prostate issues grandpa. Brain aneurysm father. General Exam General appearance: alert, in no apparent distress Eye exam: Present: normal appearance, PERRL, EOMI. Absent: scleral icterus, c onjunctival injection, periorbital swelling ENT exam: Present: normal exam, mucous membranes moist Neck exam: Present: normal inspection. Absent: tenderness, meningismus, lymphadenopathy Respiratory exam: Present: normal lung sounds bilaterally. Absent: respiratory distress, wheezes, rales, rhonchi, stridor Cardiovascular Exam: Present: regular rate, normal rhythm, normal heart sounds. Absent: systolic murmur, diastolic murmur, rubs, gallop, clicks GI/Abdominal exam: Present: soft, tenderness, other (post operative wounds with wound drains in place, no erythema overlying, mild purulent discharge) Extremities exam: Present: normal inspection, full ROM, normal capillary refill. Absent: tenderness, pedal edema, joint swelling, calf tenderness Neurological exam: Present: alert, oriented X3, CN II-XII intact Skin exam: Present: warm, dry, intact, normal color. Absent: rash Course Vital Signs 11/29/23 11/29/23 11/29/23 10:28 11:33 13:37 Temperature 98.0 F Pulse Rate 72 59 L 70 Respiratory 20 18 16 Rate Blood Pressure 137/90 148/84 135/73 O2 Sat by Pulse 97 95 95 Oximetry Medical Decision Making - Medical Decision Making Was pt. sent in by a medical professional or institution (, PA, COAT FELLER, urgent care, hospital, or [facility]...) When possible be specific @ -Was transferred from [facility] for left lower quadrant abdominal pain and continuation of care with general surgeon Dr. Lizarraga Did you speak to anyone other than the patient for history (EMS, parent, family, police, friend...)? What history was obtained from this source @ -No Did you review nursing and triage notes (agree or disagree)? Why? @ -I reviewed and agree with nursing and triage notes Were old charts reviewed (outside hosp., previous admission, EMS record, old EKG, old radiological studies, urgent care reports/EKG's, [facility] records)? Report findings @ -reivewed patient's chart note from 10/24/2023 where an abdominal wall hematoma was removed and surgical debridement was completed of the abdominal wall with Dr. Lizarraga and was discharged home in stable conditions. Differential Diagnosis (chest pain, altered mental status, abdominal pain women, abdominal pain men, vaginal bleeding, weakness, fever, dyspnea, syncope, headache, dizziness, GI bleed, back pain, seizure, CVA, palpatations, mental health, musculoskeletal)? @ -Differential Abdominal Pain Men: Appendicitis, cholecystitis, diverticulosis, ischemic bowel, pancreatitis, hepatitis, UTI, gastroenteritis, AAA, incarcerated hernia, bowel obstruction, constipation, inflammatory bowel, hepatitis, peptic ulcer disease, splenic infarction, perforated viscus, testicular torsion, this is not meant to be an all-inclusive list EKG interpreted by me (3pts min.). @ -none X-rays interpreted by me (1pt min.). @ -None done CT interpreted by me (1pt min.). @ -None done U/S interpreted by me (1pt. min.). @ -None done What testing was considered but not performed or refused? (CT, X-rays, U/S, labs)? Why? @ -None What meds were considered but not given or refused? Why? @ -None Did you discuss the management of the patient with other professionals (professionals i.e. DrSue, PA, COAT FELLER, lab, RT, psych nurse, social science manager, ruby rails developer, teacher, special police officer, disease case manager rn)? Give summary @ -I spoke to general surgeon, Dr. Lizarraga, in regard to the patient's case. Patient does have a scheduled outpatient procedure with a general surgeon on . reviewed the patient's CT of the abdomen pelvis with contrast was completed at [facility] this morning and is concerned for acute intra-abdominal process that she is verbalized to me. It is recommended the patient be admitted to observation with correction of hypokalemia via oral replacement and IV supplementation. Patient's labs will be monitored and reevaluated with schedule for surgery to this afternoon. Patient will be kept n.p.o. and is able to consume ice chips as needed. Was smoking cessation discussed for >3mins.? @ -No Was critical care preformed (if so, how long)? @ -No Were there social determinants of health that impacted care today? How? (Homelessness, low income, unemployed, alcoholism, drug addiction, transporta tion, low edu. Level, literacy, decrease access to med. care, long-term, rehab)? @ -No Was there de-escalation of care discussed even if they declined (Discuss DNR or withdrawal of care, Hospice)? DNR status @ -No What co-morbidities impacted this encounter? (DM, HTN, Smoking, COPD, CAD, Cancer, CVA, ARF, Chemo, Hep., AIDS, mental health diagnosis, sleep apnea, morbid obesity)? @ -None Was patient admitted / discharged? Hospital course, mention meds given and route, prescriptions, significant lab abnormalities, going to OR and other pertinent info. @ -Needed. 48-year-old male to transfer for provide abdominal pain. Examination patient is showing signs of mild. There is no extremity erythema. Mild pain on palpation of the abdomen, bowel sounds are equal signs of rebound tenderness or rigidity. Patient labs reveal a hypokalemia of 2.9. CBC and coagulation profile within normal limits, lactic acid non-elevated. Patient accepted to admission for obs for hypokalemia with the intent to complete surgery this afternoon with Dr. Lizarraga that was scheduled for . He is given a 40 minutes including supplementation and 10 mg IV. With repeat labs pending. Case discussed with Dr. Roth Undiagnosed new problem with uncertain prognosis? @ -No Drug Therapy requiring intensive monitoring for toxicity (Heparin, Nitro, Insulin, Cardizem)? @ -No Were any procedures done? @ -No Diagnosis/symptom? @ -Hypokalemia, left lower quadrant abdominal pain, postoperative abdominal complication Acute, or Chronic, or Acute on Chronic? @ -acute Uncomplicated (without systemic symptoms) or Complicated (systemic symptoms)? @ -uncomplicated Side effects of treatment? @ -No Exacerbation, Progression, or Severe Exacerbation? @ -No Poses a threat to life or bodily function? How? (Chest pain, USA, AL, pneumonia, PE, COPD, DKA, ARF, appy, cholecystitis, CVA, Diverticulitis, Homicidal, Suicidal, threat to staff... and all critical care pts) @ -No - Lab Data Result diagrams: 11/29/23 11:00 11/29/23 11:00 Lab Results 11/29/23 11/29/23 11/29/23 Range/Units 11:00 11:00 11:00 WBC 3.0 L (3.8-10.6) k/uL RBC 3.56 L (4.30-5.90) m/uL Hgb 11.4 L D (13.0-17.5) gm/dL Hct 35.4 L (39.0-53.0) % MCV 99.6 D (80.0-100.0) fL MCH 31.9 (25.0-35.0) pg MCHC 32.0 (31.0-37.0) g/dL RDW 16.2 H (11.5-15.5) % Plt Count 71 L D (150-450) k/uL MPV 10.0 Neutrophils % 42 % Lymphocytes % 37 % Monocytes % 11 % Eosinophils % 5 % Basophils % 1 % Neutrophils # 1.3 (1.3-7.7) k/uL Lymphocytes # 1.1 (1.0-4.8) k/uL Monocytes # 0.3 (0-1.0) k/uL Eosinophils # 0.2 (0-0.7) k/uL Basophils # 0.0 (0-0.2) k/uL Anisocytosis Slight Macrocytosis Slight PT 13.0 H (10.0-12.5) sec INR 1.2 H (<1.2) APTT 24.9 (22.0-30.0) sec Sodium 143 (137-145) mmol/L Potassium 2.9 L (3.5-5.1) mmol/L Chloride 113 H (98-107) mmol/L Carbon Dioxide 22 (22-30) mmol/L Anion Gap 8 mmol/L BUN 9 (9-20) mg/dL Creatinine 0.54 L (0.66-1.25) mg/dL Est GFR (CKD-EPI)AfAm >90 (>60 ml/min/1.73 sqM) Est GFR (CKD-EPI)NonAf >90 (>60 ml/min/1.73 sqM) Glucose 95 (74-99) mg/dL Plasma Lactic Acid Balaji (0.7-2.0) mmol/L Calcium 8.6 (8.4-10.2) mg/dL Total Bilirubin 1.2 (0.2-1.3) mg/dL AST 61 H (17-59) U/L ALT 30 (4-49) U/L Alkaline Phosphatase 84 (38-126) U/L Total Protein 5.9 L (6.3-8.2) g/dL Albumin 3.1 L (3.5-5.0) g/dL Lipase 279 (23-300) U/L 11/29/23 Range/Units 11:00 WBC (3.8-10.6) k/uL RBC (4.30-5.90) m/uL Hgb (13.0-17.5) gm/dL Hct (39.0-53.0) % MCV (80.0-100.0) fL MCH (25.0-35.0) pg MCHC (31.0-37.0) g/dL RDW (11.5-15.5) % Plt Count (150-450) k/uL MPV Neutrophils % % Lymphocytes % % Monocytes % % Eosinophils % % Basophils % % Neutrophils # (1.3-7.7) k/uL Lymphocytes # (1.0-4.8) k/uL Monocytes # (0-1.0) k/uL Eosinophils # (0-0.7) k/uL Basophils # (0-0.2) k/uL Anisocytosis Macrocytosis PT (10.0-12.5) sec INR (<1.2) APTT (22.0-30.0) sec Sodium (137-145) mmol/L Potassium (3.5-5.1) mmol/L Chloride (98-107) mmol/L Carbon Dioxide (22-30) mmol/L Anion Gap mmol/L BUN (9-20) mg/dL Creatinine (0.66-1.25) mg/dL Est GFR (CKD-EPI)AfAm (>60 ml/min/1.73 sqM) Est GFR (CKD-EPI)NonAf (>60 ml/min/1.73 sqM) Glucose (74-99) mg/dL Plasma Lactic Acid Balaji 1.5 (0.7-2.0) mmol/L Calcium (8.4-10.2) mg/dL Total Bilirubin (0.2-1.3) mg/dL AST (17-59) U/L ALT (4-49) U/L Alkaline Phosphatase (38-126) U/L Total Protein (6.3-8.2) g/dL Albumin (3.5-5.0) g/dL Lipase (23-300) U/L Disposition Clinical Impression: Abdominal pain, Hypokalemia, Post-operative complication Disposition: ADMITTED IP TO THIS [facility] Condition: Good Decision to Admit Reason: Admit from EC Decision Date: 11/29/23 Decision Time: 12:10
[2023-11-29] MEDS: SODIUM CHLORIDE 0.9% 1,000 ML IV STA (11:27)
[2023-11-29] MEDS: ONDANSETRON 4 MG/2 ML VIAL IVP STA (11:27)
[2023-11-29] MEDS: MORPHINE SULFATE 4 MG/ML SYRINGE IVP STA (11:31)
[2023-11-29 11:43] LABS: INR 1.2 (<1.2); Partial Thromboplastin Time 24.9 sec (22.0-30.0)
[2023-11-29 11:48] LABS: ALT 30 U/L (4-49); AST 61 U/L (17-59); African American GFR (CKD) >90 (>60 ml/min/1.73 sqM); Albumin 3.1 g/dL (3.5-5.0); Alkaline Phosphatase 84 U/L (38-126); Anion Gap 8 mmol/L; Blood Urea Nitrogen 9 mg/dL (9-20); Calcium 8.6 mg/dL (8.4-10.2); Carbon Dioxide 22 mmol/L (22-30); Chloride 113 mmol/L (98-107); Glucose 95 mg/dL (74-99); Lipase 279 U/L (23-300); Non-African American GFR(CKD) >90 (>60 ml/min/1.73 sqM); Potassium 2.9 mmol/L (3.5-5.1); Sodium 143 mmol/L (137-145); Total Bilirubin 1.2 mg/dL (0.2-1.3); Total Protein 5.9 g/dL (6.3-8.2)
[2023-11-29 11:52] LABS: Anisocytosis Slight; Basophils % (A) 1 %; Eosinophils # (A) 0.2 k/uL (0-0.7); Eosinophils % (A) 5 %; HCT 35.4 % (39.0-53.0); Lymphocytes # (A) 1.1 k/uL (1.0-4.8); Lymphocytes % (A) 37 %; MCH 31.9 pg (25.0-35.0); Macrocytosis Slight; Monocytes # (A) 0.3 k/uL (0-1.0); Monocytes % (A) 11 %; Neutrophils # (A) 1.3 k/uL (1.3-7.7); Neutrophils % (A) 42 %; RBC 3.56 m/uL (4.30-5.90); RDW 16.2 % (11.5-15.5)
[2023-11-29 11:53] LABS: HGB 11.4 gm/dL (13.0-17.5)
[2023-11-29 11:54] LABS: MCV 99.6 fL (80.0-100.0)
[2023-11-29 12:07] LABS: Platelet Count 71 k/uL (150-450)
[2023-11-29] MEDS ORDERED: ACETAMINOPHEN TAB 325 MG TAB PO PRN (12:13)
[2023-11-29] MEDS ORDERED: NALOXONE 0.4 MG/ML 1 ML VIAL IV PRN (12:13)
[2023-11-29] MEDS ORDERED: HYDROmorphone 1 MG/ML 1 ML SYRINGE IVP PRN (12:13)
--- NOTE | 2023-11-29 12:21 | P.GSHP ---
History of Present Illness H&P Date: 11/29/23 CHIEF COMPLAINT: Acute left-sided abdominal pain with complex abdominal wound HISTORY OF PRESENT ILLNESS: The patient is a 48 year old male with a complicated surgical history including status post abdominal wall reconstruction in September 2023. He then presented to the hospital over 1 month ago with bleeding from incision including deterioration of his incision. He is status post abdominal wall debridement with abdominal wall reconstruction on 10/21/2023. Patient was recovering well and had Newton-Hanson drains. Report acute onset abdominal pain last night to this morning. He was taken by his ambulance to his local emergency room. He will was transferred to [facility]. Patient was then transferred to this institution for continuation of care per discussion with ER provider. At the outside facility, patient had lactic acidosis including moderate to severe hypokalemia. CT of the abdomen pelvis done at outside institution. He does report still smoking. PAST MEDICAL HISTORY: See list and reviewed PAST SURGICAL HISTORY: See list and reviewed MEDICATIONS: See list and reviewed ALLERGIES: See list and reviewed SOCIAL HISTORY: See list and reviewed FAMILY HISTORY: See list and reviewed REVIEW OF ORGAN SYSTEMS: CONSTITUTIONAL: No fevers or chills. No recent weight loss. EYES: Denies any trouble with vision. No glasses. HEENT: No difficulties with hearing. No nosebleeds. No difficulty swallowing. RESPIRATORY: Has tobacco abuse disorder. Has asthma. History of pneumonia. CARDIOVASCULAR: Has hypertensive heart disease. GASTROINTESTINAL: Has cirrhosis of the liver with esophageal varices including ascites. History of GI bleed. Has portal hypertension. History of pancreatic cancer. GENITOURINARY: History of kidney stones. NEUROLOGICAL: Has chronic pain syndrome. MUSCULOSKELETAL: Has back pain, stiffness or joint arthritis. SKIN: Has psoriasis. PSYCHIATRIC: Has generalized anxiety disorder, bipolar disorder, depressive disorder, posttraumatic stress disorder. ENDOCRINE: Denies current thyroid disorders. Denies any blood sugar glucose intolerance. HEME/LYMPHATIC: Denies any lumps and bumps around the neck. No recent deep venous thrombosis. Has thrombocytopenia. Has chronic anemia. ALLERGY/IMMUNOLOGY: No immunoglobulin therapy. No immune deficiencies. History of MRSA. BREAST: Denies current breast lumps, pain or nipple discharge. PHYSICAL EXAM: VITALS: Reviewed CONSTITUTIONAL: Well developed and in no acute distress. EYES: Conjuctivae without sclera icterus. Extraocular movements grossly intact. HEAD, EARS, NOSE, THROAT: Moist buccal mucosa. Head is atraumatic, normocephalic. Hears conversational speech. No nasal drainage. NECK: Supple. No JV distention. No thyroidomegaly. RESPIRATORY: Non-labored respirations and equal bilateral excursions. No gross wheezes. CARDIOVASCULAR: Palpable 2+ radial pulses. ABDOMEN: Deterioration of midline incision. Insensate along lower midline incision 3 cm x 1 cm. MAYRA drain serous. LYMPH: No neck lymphadenopathy. MUSCULOSKELETAL: No clubbing cyanosis or edema SKIN: Warm and well perfused with good skin turgor. NEUROLOGIC: Cranial nerves II through XII grossly intact. No focal or lateralizing signs. PSYCH: Appropriate affect. Alert and oriented to person, place and time. Displays appropriate insight. CLINCAL LABS: Reviewed. WBC normal. Potassium 2.9, hypokalemia. Presence of lactic acidosis on outside institution. IMAGING: Independently reviewed. CT of the abdomen pelvis independently reviewed from outside institution demonstrates no intra-abdominal collection. No recurrent hernia. Complex abdominal wound along the midline with air. No intra-abdominal abscesses. MAYRA drain within the subcutaneous tissue. No moderate residual fluid collection within the subcutaneous space. This is my independent interpretation. ASSESSMENT: 1. Acute left-sided abdominal pain. 2. Status post ventral hernia repair 3. Acute blood loss anemia 4. Liver cirrhosis 5. History of illicit drug use 6. Tobacco abuse disorder. 7. Hypokalemia 8. Lactic acidosis PLAN: 1. Patient was transferred to this institution from emergency room to emergency room due to patient's abdominal pain and history of complex abdominal surgery. On exam, patient has complex midline wound with dehiscence of the subcutaneous tissue which will need debridement. 2. Agree with observation for treatment of hypokalemia, lactic acidosis including debridement of abdominal wound due to moderate left-sided abdominal pain. 3. Recommend IV fluid hydration for lactic acidosis 4. Admission for observation due to abdominal pain and need for surgical debridement ADVANCE DIRECTIVE: CODE STATUS in chart Past Medical History Past Medical History: Asthma, Cancer, GI Bleed, Liver Disease, Pneumonia, Renal Disease, Skin Disorder Additional Past Medical History / Comment(s): Liver cirrhosis, portal HTN, abdominal ascities, pancreatitis, upper and lower GI bleeds, bleeding ulcers, esophageal varicies-banded, thrombocytopemia, chronic anemia, gallstones, nephrolithiasis/hematuria, L inguinal hernia, psoriasis; paracentesis, umbilical hernia, left foot injury, pancreatic CA History of Any Multi-Drug Resistant Organisms: MRSA Date of last positivie culture/infection: 12/09/13 MDRO Source:: Right first finger Past Surgical History: Appendectomy, Cholecystectomy, Hernia Repair, Orthopedic Surgery Additional Past Surgical History / Comment(s): EGDs/varicies banding/colonoscopy, paracentesis, right hand tendon repair, right knee arthroscopy, cystoscopy for kidney stone removal, right hand ring finger surgery. surgery for umbilical hernia, Hernia repair on 10/13 at [facility]. Past Anesthesia/Blood Transfusion Reactions: Previous Problems w/ Anesthesia, Motion Sickness Additional Past Anesthesia/Blood Transfusion Reaction / Comment(s): Woke up during scope procedure. Past Psychological History: Anxiety, Bipolar, Depression, PTSD Smoking Status: Current every day smoker Past Alcohol Use History: Occasional Past Drug Use History: None Reported - Past Family History Mother Family Medical History: No Reported History Additional Family Medical History / Comment(s): Mother has health issues from a MVA-pt did not elaborate. Father Family Medical History: Vascular Disorder Additional Family Medical History / Comment(s): Prostate issues grandpa. Brain aneurysm father. Medications and Allergies Home Medications Medication Instructions Recorded Confirmed Type Albuterol Inhaler [Ventolin Hfa 1 - 2 puff INHALATION RT-Q4H PRN 11/10/23 11/29/23 History Inhaler] HYDROcodone/APAP 10-325MG [[place] 1 tab PO TID PRN 30 Days #90 tab 11/10/23 11/29/23 Rx 10-325] Lactulose 20 gm PO TID PRN 11/10/23 11/29/23 History Magnesium Oxide [Magnesium] 500 mg PO DAILY 11/10/23 11/29/23 History Pantoprazole [Protonix] 40 mg PO BID 11/10/23 11/29/23 History Potassium Chloride ER [K-Dur 10] 10 meq PO DAILY 11/10/23 11/29/23 History atenoloL 25 mg PO DAILY 11/10/23 11/29/23 History Multivit-Mins/Iron/Folic/Lycop 1 tab PO DAILY 11/29/23 11/29/23 History [Centrum Men's Tablet] Allergies Allergy/AdvReac Type Severity Reaction Status Date / Time No Known Allergies Allergy Verified 11/29/23 12:02 Surgical - Exam Vital Signs Temp Pulse Resp BP Pulse Ox 98.0 F 72 20 137/90 97 11/29/23 10:28 11/29/23 10:28 11/29/23 10:28 11/29/23 10:28 11/29/23 10:28 Results - Labs 11/29/23 11:00 11/29/23 11:00 Abnormal Lab Results - Last 24 Hours (Table) 11/29/23 11/29/23 11/29/23 Range/Units 11:00 11:00 11:00 WBC 3.0 L (3.8-10.6) k/uL RBC 3.56 L (4.30-5.90) m/uL Hgb 11.4 L D (13.0-17.5) gm/dL Hct 35.4 L (39.0-53.0) % RDW 16.2 H (11.5-15.5) % Plt Count 71 L D (150-450) k/uL PT 13.0 H (10.0-12.5) sec INR 1.2 H (<1.2) Potassium 2.9 L (3.5-5.1) mmol/L Chloride 113 H (98-107) mmol/L Creatinine 0.54 L (0.66-1.25) mg/dL AST 61 H (17-59) U/L Total Protein 5.9 L (6.3-8.2) g/dL Albumin 3.1 L (3.5-5.0) g/dL Diabetes panel 11/29/23 Range/Units 11:00 Sodium 143 (137-145) mmol/L Potassium 2.9 L (3.5-5.1) mmol/L Chloride 113 H (98-107) mmol/L Carbon Dioxide 22 (22-30) mmol/L BUN 9 (9-20) mg/dL Creatinine 0.54 L (0.66-1.25) mg/dL Glucose 95 (74-99) mg/dL Calcium 8.6 (8.4-10.2) mg/dL AST 61 H (17-59) U/L ALT 30 (4-49) U/L Alkaline Phosphatase 84 (38-126) U/L Total Protein 5.9 L (6.3-8.2) g/dL Albumin 3.1 L (3.5-5.0) g/dL Calcium panel 11/29/23 Range/Units 11:00 Calcium 8.6 (8.4-10.2) mg/dL Albumin 3.1 L (3.5-5.0) g/dL Pituitary panel 11/29/23 Range/Units 11:00 Sodium 143 (137-145) mmol/L Potassium 2.9 L (3.5-5.1) mmol/L Chloride 113 H (98-107) mmol/L Carbon Dioxide 22 (22-30) mmol/L BUN 9 (9-20) mg/dL Creatinine 0.54 L (0.66-1.25) mg/dL Glucose 95 (74-99) mg/dL Calcium 8.6 (8.4-10.2) mg/dL Adrenal panel 11/29/23 Range/Units 11:00 Sodium 143 (137-145) mmol/L Potassium 2.9 L (3.5-5.1) mmol/L Chloride 113 H (98-107) mmol/L Carbon Dioxide 22 (22-30) mmol/L BUN 9 (9-20) mg/dL Creatinine 0.54 L (0.66-1.25) mg/dL Glucose 95 (74-99) mg/dL Calcium 8.6 (8.4-10.2) mg/dL Total Bilirubin 1.2 (0.2-1.3) mg/dL AST 61 H (17-59) U/L ALT 30 (4-49) U/L Alkaline Phosphatase 84 (38-126) U/L Total Protein 5.9 L (6.3-8.2) g/dL Albumin 3.1 L (3.5-5.0) g/dL
[2023-11-29] MEDS: POTASSIUM CHLORIDE ER 20 MEQ TAB.ER PO STA (13:10)
[2023-11-29] MEDS: D5-0.45% NACL WITH KCL 20MEQ/L 1,000 ML IV SCH (13:34)
[2023-11-29] MEDS: POTASSIUM CHLORIDE 10 MEQ in WATER FOR INJECTION 1 100ML.BAG IVPB STA (13:35)
[2023-11-29 14:47] VITALS: RESP 18
[2023-11-29] MEDS: HYDROmorphone 1 MG/ML 1 ML SYRINGE IVP PRN (14:55)
[2023-11-29 15:58] LABS: HCT 34.9 % (39.0-53.0); Hypochromasia Slight; MCHC 31.6 g/dL (31.0-37.0); MCV 101.3 fL (80.0-100.0); Macrocytosis Slight; Mean Platelet Volume 10.3; RBC 3.44 m/uL (4.30-5.90); RDW 15.9 % (11.5-15.5); WBC 2.1 k/uL (3.8-10.6)
[2023-11-29 16:46] LABS: ALT 29 U/L (4-49); AST 60 U/L (17-59); African American GFR (CKD) >90 (>60 ml/min/1.73 sqM); Albumin 2.9 g/dL (3.5-5.0); Alkaline Phosphatase 84 U/L (38-126); Anion Gap 4 mmol/L; Blood Urea Nitrogen 8 mg/dL (9-20); Carbon Dioxide 21 mmol/L (22-30); Chloride 115 mmol/L (98-107); Glucose 97 mg/dL (74-99); Non-African American GFR(CKD) >90 (>60 ml/min/1.73 sqM); Potassium 3.2 mmol/L (3.5-5.1); Sodium 140 mmol/L (137-145); Total Bilirubin 1.1 mg/dL (0.2-1.3); Total Protein 5.7 g/dL (6.3-8.2)
[2023-11-29 16:50] LABS: Basophils # (M) 0.02 k/uL (0-0.2); Eosinophils # (M) 0.08 k/uL (0-0.7); Lymphocytes # (M) 0.88 k/uL (1.0-4.8); Monocytes # (M) 0.27 k/uL (0-1.0); Neutrophils # (M) 0.84 k/uL (1.3-7.7); Neutrophils % (M) 40 %; Nucleated Red Blood Cells 0 /100 WBC (0-0); Polychromasia Present; Total Cells Counted 100
[2023-11-29 16:51] LABS: Platelet Count 66 k/uL (150-450)
[2023-11-29] MEDS: KETOROLAC 15 MG/ML 1 ML VIAL IVP SCH (17:54)
--- NOTE | 2023-11-29 19:24 | P.PN ---
Progress Note - Text Progress Note Date: 11/29/23 Notified by anesthesiologist and anesthesia team the patient's CBC came back with multiple abnormalities. Patient comes in with moderate to severe thrombocytopenia which is new in the past month. Patient presents with pancytopenia. Albumin less than 3.0. Due to abnormal labs and patient being clinically stable, surgery is canceled. Also notified by utilization review that patient has new insurance that excludes care at this facility including myself. Patient advised to follow-up with his index surgeon Dr. Hdez who performed his initial operation who is also part of his current insurance plan. At bedside, I removed his drains. New abdominal binder ordered. Option for transfer to outside facility reviewed which patient opted for discharge.
--- NOTE | 2023-11-29 19:32 | P.DS ---
Providers Date of admission: 11/29/23 12:13 Expected date of discharge: 11/29/23 Attending physician: Vanessa Lizarraga Consults: 11/29/23 12:13 Consult Physician Routine Consulting Provider: [facility] Consult Reason/Comments: Anesthesia Care Do you want consulting provider notified?: Yes Primary care physician: [facility] Course: ASSESSMENT: 1. Acute left-sided abdominal pain. 2. Status post ventral hernia repair 3. Acute blood loss anemia 4. Liver cirrhosis 5. History of illicit drug use 6. Tobacco abuse disorder. 7. Hypokalemia 8. Lactic acidosis 9. Pancytopenia 10. Hypoalbuminemia COURSE: The patient is a 48 year old male with complicated abdominal wall surgery performed by Dr. Hdez at outside facility [facility] in September 2023. He had multiple complications including incisional bleed for which he underwent drainage of abdominal wall hematoma with abdominal wall debridement October 21, 2023. Patient had drains placed. He was being followed outpatient for wound management. Patient then presented to his local hospital via ambulance due to acute onset left lower quadrant abdominal pain at [facility] that started this morning. Patient was immediately transferred to [facility] due to his prior surgery over a month ago. Patient was admitted for treatment of his hypokalemia and lactic acidosis including abdominal pain. Additional labs came back with moderate dyscrasias including pancytopenia and severe thrombocytopenia which is new. Surgery was canceled. Utilization review requested patient to be transferred to an outside facility which will cover his insurance. Patient was given the option for transfer versus discharge. Patient opted for discharge home with follow-up with index surgeon Dr. Hdez. Patient advised to avoid tobacco which prohibits wound healing. He is also advised to increase his protein intake as his albumin was less than 3.0. I personally removed his drains as his drains that had minimal serous drainage with decreased output. New abdominal binder was ordered. Repeat labs demonstrate improved potassium 3.2. Patient was asymptomatic for his hypokalemia. Patient was stable for discharge. Patient Condition at Discharge: Good Plan - Discharge Summary New Discharge Prescriptions: Continue Magnesium Oxide [Magnesium] 500 mg PO DAILY Multivit-Mins/Iron/Folic/Lycop [Centrum Men's Tablet] 1 tab PO DAILY HYDROcodone/APAP 10-325MG [Ivel 10-325] 1 tab PO TID PRN 30 Days #90 tab PRN Reason: Pain Lactulose 20 gm PO TID PRN PRN Reason: Constipation Albuterol Inhaler [Ventolin Hfa Inhaler] 1 - 2 puff INHALATION RT-Q4H PRN PRN Reason: Shortness Of Breath Pantoprazole [Protonix] 40 mg PO BID atenoloL 25 mg PO DAILY Potassium Chloride ER [K-Dur 10] 10 meq PO DAILY Discharge Medication List Albuterol Inhaler [Ventolin Hfa Inhaler] 1 - 2 puff INHALATION RT-Q4H PRN 11/10/23 [History] HYDROcodone/APAP 10-325MG [Ivel 10-325] 1 tab PO TID PRN 30 Days #90 tab 11/10/23 [Rx] Lactulose 20 gm PO TID PRN 11/10/23 [History] Magnesium Oxide [Magnesium] 500 mg PO DAILY 11/10/23 [History] Pantoprazole [Protonix] 40 mg PO BID 11/10/23 [History] Potassium Chloride ER [K-Dur 10] 10 meq PO DAILY 11/10/23 [History] atenoloL 25 mg PO DAILY 11/10/23 [History] Multivit-Mins/Iron/Folic/Lycop [Centrum Men's Tablet] 1 tab PO DAILY 11/29/23 [History] Follow up Appointment(s)/Referral(s): James Meza Jr, DO [Primary Care Provider] - 1-2 days Murphy Hdez DO [REFERRING] - 1 Week Patient Instructions/Handouts: How to Stop Smoking (DC) Discharge Disposition: HOME SELF-CARE
[2023-11-29 21:05] VITALS: BP 151/84; PULSE 60; TEMP 97.9
== END 2023-11-29 21:02 | disposition home or self-care (01) ==
LOC: EC 10:26 → 4SSUR 12:13
PROVIDERS: ADMIT Surgery Plastic and Reconstructive Surgery; ATTEND Surgery Plastic and Reconstructive Surgery
DX: R10.32 Left lower quadrant pain (principal); D62 Acute posthemorrhagic anemia; E87.20 Acidosis, unspecified; D61.818 Other pancytopenia; T81.31XA Disruption of external operation (surgical) wound, not elsewhere classified, initial encounter; E87.6 Hypokalemia; K74.60 Unspecified cirrhosis of liver; E88.09 Other disorders of plasma-protein metabolism, not elsewhere classified; F17.200 Nicotine dependence, unspecified, uncomplicated; Z79.899 Other long term (current) drug therapy; Z98.890 Other specified postprocedural states; Z87.898 Personal history of other specified conditions
CPT/HCPCS: 96361; 96365; 96366; 96367; 96375; 99285; 36415; 80053; 83605; 83690; 85025; 85610; 85730; G0378; J2270; J0690; J2405; J1170; J3480; J1885

== ENCOUNTER 2023-12-09 19:29 | Inpatient (IN) | payer OTHER ==
--- NOTE | 2023-12-09 20:34 | ED ---
Abdominal Pain HPI - General Chief Complaint: Abdominal Pain Stated Complaint: abd pain, near syncopy Time Seen by Provider: 12/09/23 19:49 Source: patient, RN notes reviewed Mode of arrival: wheelchair Limitations: no limitations - History of Present Illness Initial Comments: 48-year-old male with complicated abdominal surgical history presenting with his sister for abdominal pain worsening over the past week. States he had a hernia repair October 13 at [facility]. He developed an abdominal hematoma which was repaired by Dr. Lizarraga about a week and a half ago. He states the pain is worsening in the lower abdomen and he has been experiencing vomiting. Last bowel movement was yesterday and was normal. He states he is passing flatus. Denies fevers or chills. He states the pain is so severe that he is having trouble taking care of himself and ambulating. He has a history of decrease in liver function. He also has a history of cholecystectomy and appendectomy. - Related Data Home Medications Medication Instructions Recorded Confirmed Albuterol Inhaler [Ventolin Hfa 1 - 2 puff INHALATION RT-Q4H PRN 11/10/23 11/29/23 Inhaler] Lactulose 20 gm PO TID PRN 11/10/23 11/29/23 Magnesium Oxide [Magnesium] 500 mg PO DAILY 11/10/23 11/29/23 Pantoprazole [Protonix] 40 mg PO BID 11/10/23 11/29/23 Potassium Chloride ER [K-Dur 10] 10 meq PO DAILY 11/10/23 11/29/23 atenoloL 25 mg PO DAILY 11/10/23 11/29/23 Multivit-Mins/Iron/Folic/Lycop 1 tab PO DAILY 11/29/23 11/29/23 [Centrum Men's Tablet] Previous Rx's Medication Instructions Recorded HYDROcodone/APAP 10-325MG [[place] 1 tab PO TID PRN 30 Days #90 tab 11/10/23 10-325] HYDROcodone/APAP 10-325MG [[place] 1 tab PO TID PRN 30 Days #90 tab 12/08/23 10-325] Allergies Allergy/AdvReac Type Severity Reaction Status Date / Time No Known Allergies Allergy Verified 12/09/23 19:35 Review of Systems ROS Statement: Those systems with pertinent positive or pertinent negative responses have been documented in the HPI. ROS Other: All systems not noted in ROS Statement are negative. Past Medical History Past Medical History: Asthma, Cancer, GI Bleed, Liver Disease, Pneumonia, Renal Disease, Skin Disorder Additional Past Medical History / Comment(s): Liver cirrhosis, portal HTN, abdominal ascities, pancreatitis, upper and lower GI bleeds, bleeding ulcers, esophageal varicies-banded, thrombocytopemia, chronic anemia, gallstones, nephrolithiasis/hematuria, L inguinal hernia, psoriasis; paracentesis, umbilical hernia, left foot injury, pancreatic CA History of Any Multi-Drug Resistant Organisms: MRSA Date of last positivie culture/infection: 12/09/13 MDRO Source:: Right first finger Past Surgical History: Appendectomy, Cholecystectomy, Hernia Repair, Orthopedic Surgery Additional Past Surgical History / Comment(s): EGDs/varicies banding/colonoscopy, paracentesis, right hand tendon repair, right knee arthroscopy, cystoscopy for kidney stone removal, right hand ring finger surgery. surgery for umbilical hernia, Hernia repair on 10/13 at [facility]. Past Anesthesia/Blood Transfusion Reactions: Previous Problems w/ Anesthesia, Motion Sickness Additional Past Anesthesia/Blood Transfusion Reaction / Comment(s): Woke up during scope procedure. Past Psychological History: Anxiety, Bipolar, Depression, PTSD Smoking Status: Current every day smoker Past Alcohol Use History: Occasional Past Drug Use History: None Reported - Past Family History Mother Family Medical History: No Reported History Additional Family Medical History / Comment(s): Mother has health issues from a MVA-pt did not elaborate. Father Family Medical History: Vascular Disorder Additional Family Medical History / Comment(s): Prostate issues grandpa. Brain aneurysm father. General Exam Limitations: no limitations General appearance: alert, in no apparent distress Head exam: Present: atraumatic, normocephalic, normal inspection Eye exam: Present: normal appearance, PERRL, EOMI. Absent: scleral icterus, conjunctival injection, periorbital swelling Respiratory exam: Present: normal lung sounds bilaterally. Absent: respiratory distress, wheezes, rales, rhonchi, stridor Cardiovascular Exam: Present: regular rate, normal rhythm, normal heart sounds. Absent: systolic murmur, diastolic murmur, rubs, gallop, clicks GI/Abdominal exam: Present: soft, tenderness (Tenderness in the left lower quadrant), normal bowel sounds, other (Well-healing vertical incision present in the center of the abdomen. Incision clean dry and intact). Absent: distended, guarding, rebound, rigid Neurological exam: Present: alert, oriented X3 Psychiatric exam: Present: normal affect, normal mood Skin exam: Present: warm, dry, intact, normal color. Absent: rash Course Vital Signs 12/09/23 12/09/23 12/09/23 19:31 20:58 21:58 Temperature 98.1 F Pulse Rate 80 70 73 Respiratory 22 16 18 Rate Blood Pressure 129/76 130/70 128/73 O2 Sat by Pulse 96 94 L 95 Oximetry 12/09/23 23:42 Temperature Pulse Rate 81 Respiratory 18 Rate Blood Pressure 135/68 O2 Sat by Pulse 94 L Oximetry Medical Decision Making - Medical Decision Making Was pt. sent in by a medical professional or institution (TWAN Hightower, SECRETARY TO THE VICE PRESIDENT, urgent care, hospital, or senior care...) When possible be specific @ -No Did you speak to anyone other than the patient for history (EMS, parent, family, police, friend...)? What history was obtained from this source @ -Patient's sister supplemented history Did you review nursing and triage notes (agree or disagree)? Why? @ -I reviewed and agree with nursing and triage notes Were old charts reviewed (outside hosp., previous admission, EMS record, old EKG, old radiological studies, urgent care reports/EKG's, senior care records)? Report findings @ -Previous ER visit reviewed, lab work was compared Differential Diagnosis (chest pain, altered mental status, abdominal pain women, abdominal pain men, vaginal bleeding, weakness, fever, dyspnea, syncope, headache, dizziness, GI bleed, back pain, seizure, CVA, palpatations, mental health, musculoskeletal)? @ -Differential Abdominal Pain Men: Appendicitis, cholecystitis, diverticulosis, ischemic bowel, pancreatitis, hepatitis, UTI, gastroenteritis, AAA, incarcerated hernia, bowel obstruction, constipation, inflammatory bowel, hepatitis, peptic ulcer disease, splenic infarction, perforated viscus, testicular torsion, this is not meant to be an all-inclusive list EKG interpreted by me (3pts min.). @ -As above X-rays interpreted by me (1pt min.). @ -None done CT interpreted by me (1pt min.). @ -CT revealed severe hepatic steatosis with cirrhosis and findings of portal hypertension similar to previous study, stable appearance of edema and subcutaneous gas along the anterior abdominal wall unchanged from most recent study, no evidence for abscess, punctate nonobstructive bilateral renal calculi U/S interpreted by me (1pt. min.). @ -None done What testing was considered but not performed or refused? (CT, X-rays, U/S, labs)? Why? @ -None What meds were considered but not given or refused? Why? @ -None Did you discuss the management of the patient with other professionals (professionals i.e. DrSue, PA, SECRETARY TO THE VICE PRESIDENT, lab, RT, psych nurse, social work lecturer, professor of counseling, teacher, space operations officer, medical case manager)? Give summary @ -No Was smoking cessation discussed for >3mins.? @ -No Was critical care preformed (if so, how long)? @ -No Were there social determinants of health that impacted care today? How? (Homelessness, low income, unemployed, alcoholism, drug addiction, transportation, low edu. Level, literacy, decrease access to med. care, longterm, rehab)? @ -No Was there de-escalation of care discussed even if they declined (Discuss DNR or withdrawal of care, Hospice)? DNR status @ -No What co-morbidities impacted this encounter? (DM, HTN, Smoking, COPD, CAD, Cancer, CVA, ARF, Chemo, Hep., AIDS, mental health diagnosis, sleep apnea, morbid obesity)? @ -None Was patient admitted / discharged? Hospital course, mention meds given and route, prescriptions, significant lab abnormalities, going to OR and other pertinent info. @ -Patient was admitted. Patient was seen and evaluated for worsening abdominal pain. Patient underwent umbilical hernia repair about 2 months ago which was complicated by abdominal hematoma formation which was fixed by Dr. Lizarraga a week and a half ago. Patient has been having increasing pain since. Vital signs are unremarkable. Physical examination is remarkable for left lower quadrant tenderness. Patient was given IV fluids and morphine for pain. Lab work including CBC, CMP, lipase, and lactic acid remarkable for platelets 54, potassium 2.8, lactic acid 2.3, elevated liver enzymes, lipase 461, magnesium 1.1, INR 1.4. EKG reveals normal sinus rhythm with no ST changes. Urine remarkable for mild red blood cells. CT of abdomen/pelvis revealed stable appearance of edema and subcutaneous gas along the anterior abdominal wall unchanged from most recent study. Potassium and magnesium replacement started. Patient was admitted to Dr. Escamilla with consultation to Dr. Lizarraga. Case discussed with Dr. Roth. Undiagnosed new problem with uncertain prognosis? @ -No Drug Therapy requiring intensive monitoring for toxicity (Heparin, Nitro, Insulin, Cardizem)? @ -No Were any procedures done? @ -No Diagnosis/symptom? @ -Abdominal pain, hypomagnesemia, hypokalemia Acute, or Chronic, or Acute on Chronic? @ -Acute Uncomplicated (without systemic symptoms) or Complicated (systemic symptoms)? @ -Complicated Side effects of treatment? @ -No Exacerbation, Progression, or Severe Exacerbation? @ -No Poses a threat to life or bodily function? How? (Chest pain, USA, ND, pneumonia, PE, COPD, DKA, ARF, appy, cholecystitis, CVA, Diverticulitis, Homicidal, Suicidal, threat to staff... and all critical care pts) @ -Yes - Lab Data Result diagrams: 12/09/23 20:44 12/09/23 20:44 Lab Results 12/09/23 12/09/23 12/09/23 Range/Units 20:44 20:44 20:44 WBC 3.6 L (3.8-10.6) k/uL RBC 4.05 L (4.30-5.90) m/uL Hgb 12.5 L (13.0-17.5) gm/dL Hct 39.1 (39.0-53.0) % MCV 96.7 (80.0-100.0) fL MCH 30.8 (25.0-35.0) pg MCHC 31.9 (31.0-37.0) g/dL RDW 16.2 H (11.5-15.5) % Plt Count 54 L (150-450) k/uL MPV 10.9 Neutrophils % 60 % Lymphocytes % 25 % Monocytes % 9 % Eosinophils % 3 % Basophils % 1 % Neutrophils # 2.1 (1.3-7.7) k/uL Lymphocytes # 0.9 L (1.0-4.8) k/uL Monocytes # 0.3 (0-1.0) k/uL Eosinophils # 0.1 (0-0.7) k/uL Basophils # 0.0 (0-0.2) k/uL Manual Slide Review Performed Anisocytosis Slight PT (10.0-12.5) sec INR (<1.2) APTT (22.0-30.0) sec Sodium 138 (137-145) mmol/L Potassium 2.8 L (3.5-5.1) mmol/L Chloride 106 (98-107) mmol/L Carbon Dioxide 26 (22-30) mmol/L Anion Gap 6 mmol/L BUN 11 (9-20) mg/dL Creatinine 0.59 L (0.66-1.25) mg/dL Est GFR (CKD-EPI)AfAm >90 (>60 ml/min/1.73 sqM) Est GFR (CKD-EPI)NonAf >90 (>60 ml/min/1.73 sqM) Glucose 116 H (74-99) mg/dL Lactic Ac Sepsis Rflx Plasma Lactic Acid Balaji (0.7-2.0) mmol/L Calcium 9.5 (8.4-10.2) mg/dL Magnesium (1.6-2.3) mg/dL Total Bilirubin 2.2 H (0.2-1.3) mg/dL AST 250 H (17-59) U/L ALT 112 H (4-49) U/L Alkaline Phosphatase 101 (38-126) U/L Total Protein 6.3 (6.3-8.2) g/dL Albumin 3.3 L (3.5-5.0) g/dL Lipase 461 H (23-300) U/L Urine Color Yellow Urine Appearance Clear (Clear) Urine pH 7.0 (5.0-8.0) Ur Specific [place] 1.012 (1.001-1.035) Urine Protein Negative (Negative) Urine Glucose (UA) Negative (Negative) Urine Ketones Negative (Negative) Urine Blood Trace H (Negative) Urine Nitrite Negative (Negative) Urine Bilirubin Negative (Negative) Urine Urobilinogen >12.0 (<2.0) mg/dL Ur Leukocyte Esterase Negative (Negative) Urine RBC 7 H (0-5) /hpf Urine WBC 1 (0-5) /hpf Urine Mucus Rare H (None) /hpf 12/09/23 12/09/23 12/09/23 Range/Units 20:44 21:27 22:28 WBC (3.8-10.6) k/uL RBC (4.30-5.90) m/uL Hgb (13.0-17.5) gm/dL Hct (39.0-53.0) % MCV (80.0-100.0) fL MCH (25.0-35.0) pg MCHC (31.0-37.0) g/dL RDW (11.5-15.5) % Plt Count (150-450) k/uL MPV Neutrophils % % Lymphocytes % % Monocytes % % Eosinophils % % Basophils % % Neutrophils # (1.3-7.7) k/uL Lymphocytes # (1.0-4.8) k/uL Monocytes # (0-1.0) k/uL Eosinophils # (0-0.7) k/uL Basophils # (0-0.2) k/uL Manual Slide Review Anisocytosis PT (10.0-12.5) sec INR (<1.2) APTT (22.0-30.0) sec Sodium (137-145) mmol/L Potassium (3.5-5.1) mmol/L Chloride (98-107) mmol/L Carbon Dioxide (22-30) mmol/L Anion Gap mmol/L BUN (9-20) mg/dL Creatinine (0.66-1.25) mg/dL Est GFR (CKD-EPI)AfAm (>60 ml/min/1.73 sqM) Est GFR (CKD-EPI)NonAf (>60 ml/min/1.73 sqM) Glucose (74-99) mg/dL Lactic Ac Sepsis Rflx Y Plasma Lactic Acid Balaji 2.3 H* (0.7-2.0) mmol/L Calcium (8.4-10.2) mg/dL Magnesium 1.1 L (1.6-2.3) mg/dL Total Bilirubin (0.2-1.3) mg/dL AST (17-59) U/L ALT (4-49) U/L Alkaline Phosphatase (38-126) U/L Total Protein (6.3-8.2) g/dL Albumin (3.5-5.0) g/dL Lipase (23-300) U/L Urine Color Urine Appearance (Clear) Urine pH (5.0-8.0) Ur Specific [place] (1.001-1.035) Urine Protein (Negative) Urine Glucose (UA) (Negative) Urine Ketones (Negative) Urine Blood (Negative) Urine Nitrite (Negative) Urine Bilirubin (Negative) Urine Urobilinogen (<2.0) mg/dL Ur Leukocyte Esterase (Negative) Urine RBC (0-5) /hpf Urine WBC (0-5) /hpf Urine Mucus (None) /hpf 12/09/23 Range/Units 22:40 WBC (3.8-10.6) k/uL RBC (4.30-5.90) m/uL Hgb (13.0-17.5) gm/dL Hct (39.0-53.0) % MCV (80.0-100.0) fL MCH (25.0-35.0) pg MCHC (31.0-37.0) g/dL RDW (11.5-15.5) % Plt Count (150-450) k/uL MPV Neutrophils % % Lymphocytes % % Monocytes % % Eosinophils % % Basophils % % Neutrophils # (1.3-7.7) k/uL Lymphocytes # (1.0-4.8) k/uL Monocytes # (0-1.0) k/uL Eosinophils # (0-0.7) k/uL Basophils # (0-0.2) k/uL Manual Slide Review Anisocytosis PT 14.3 H (10.0-12.5) sec INR 1.4 H (<1.2) APTT 23.0 (22.0-30.0) sec Sodium (137-145) mmol/L Potassium (3.5-5.1) mmol/L Chloride (98-107) mmol/L Carbon Dioxide (22-30) mmol/L Anion Gap mmol/L BUN (9-20) mg/dL Creatinine (0.66-1.25) mg/dL Est GFR (CKD-EPI)AfAm (>60 ml/min/1.73 sqM) Est GFR (CKD-EPI)NonAf (>60 ml/min/1.73 sqM) Glucose (74-99) mg/dL Lactic Ac Sepsis Rflx Plasma Lactic Acid Balaji (0.7-2.0) mmol/L Calcium (8.4-10.2) mg/dL Magnesium (1.6-2.3) mg/dL Total Bilirubin (0.2-1.3) mg/dL AST (17-59) U/L ALT (4-49) U/L Alkaline Phosphatase (38-126) U/L Total Protein (6.3-8.2) g/dL Albumin (3.5-5.0) g/dL Lipase (23-300) U/L Urine Color Urine Appearance (Clear) Urine pH (5.0-8.0) Ur Specific [place] (1.001-1.035) Urine Protein (Negative) Urine Glucose (UA) (Negative) Urine Ketones (Negative) Urine Blood (Negative) Urine Nitrite (Negative) Urine Bilirubin (Negative) Urine Urobilinogen (<2.0) mg/dL Ur Leukocyte Esterase (Negative) Urine RBC (0-5) /hpf Urine WBC (0-5) /hpf Urine Mucus (None) /hpf - EKG Data -: EKG Interpreted by Dc EKG Comments: EKG reveals normal sinus rhythm with no ST changes. Ventricular rate 64 bpm, LA interval 180, QRS duration 110, QT/QTc 442/452 Disposition Clinical Impression: Abdominal pain, Hypomagnesemia, Hypokalemia Disposition: ADMITTED IP TO THIS [facility] Time of Disposition: 23:50
[2023-12-09] MEDS: MORPHINE SULFATE 4 MG/ML SYRINGE IVP STA (20:53)
[2023-12-09] MEDS: ONDANSETRON 4 MG/2 ML VIAL IVP STA (20:54)
[2023-12-09] MEDS: SODIUM CHLORIDE 0.9% 1,000 ML IV STA (20:54)
[2023-12-09 21:01] LABS: Anisocytosis Slight; Basophils % (A) 1 %; Eosinophils # (A) 0.1 k/uL (0-0.7); Eosinophils % (A) 3 %; HCT 39.1 % (39.0-53.0); HGB 12.5 gm/dL (13.0-17.5); Lymphocytes # (A) 0.9 k/uL (1.0-4.8); Lymphocytes % (A) 25 %; MCH 30.8 pg (25.0-35.0); MCHC 31.9 g/dL (31.0-37.0); MCV 96.7 fL (80.0-100.0); Mean Platelet Volume 10.9; Monocytes # (A) 0.3 k/uL (0-1.0); Monocytes % (A) 9 %; Neutrophils # (A) 2.1 k/uL (1.3-7.7); Neutrophils % (A) 60 %; RBC 4.05 m/uL (4.30-5.90); RDW 16.2 % (11.5-15.5); WBC 3.6 k/uL (3.8-10.6)
[2023-12-09 21:11] LABS: ALT 112 U/L (4-49); African American GFR (CKD) >90 (>60 ml/min/1.73 sqM); Albumin 3.3 g/dL (3.5-5.0); Anion Gap 6 mmol/L; Blood Urea Nitrogen 11 mg/dL (9-20); Calcium 9.5 mg/dL (8.4-10.2); Carbon Dioxide 26 mmol/L (22-30); Chloride 106 mmol/L (98-107); Glucose 116 mg/dL (74-99); Lipase 461 U/L (23-300); Non-African American GFR(CKD) >90 (>60 ml/min/1.73 sqM); Sodium 138 mmol/L (137-145); Total Bilirubin 2.2 mg/dL (0.2-1.3); Total Protein 6.3 g/dL (6.3-8.2)
[2023-12-09 21:22] LABS: Platelet Count 54 k/uL (150-450)
[2023-12-09 21:27] LABS: AST 250 U/L (17-59); Alkaline Phosphatase 101 U/L (38-126); Potassium 2.8 mmol/L (3.5-5.1)
[2023-12-09 22:08] LABS: Appearance,Urine Clear (Clear); Bilirubin,Urine Negative (Negative); Blood,Urine Trace (Negative); Color,Urine Yellow; Glucose,Urine (UA) Negative (Negative); Ketones,Urine Negative (Negative); Leukocyte Esterase,Urine Negative (Negative); Mucus,Urine Rare /hpf; Nitrite,Urine Negative (Negative); Protein,Urine Negative (Negative); RBC,Urine 7 /hpf (0-5); Specific Gravity,Urine 1.012 (1.001-1.035); Urobilinogen,Urine >12.0 mg/dL (<2.0); WBC,Urine 1 /hpf (0-5)
[2023-12-09 23:04] LABS: INR 1.4 (<1.2); Prothrombin Time 14.3 sec (10.0-12.5)
--- NOTE | 2023-12-09 23:04 | CT ---
EXAMINATION TYPE: CT abdomen pelvis w con CT DLP: 1039.9 mGycm, Automated exposure control for dose reduction was used. DATE OF EXAM: 12/09/2023 9:45 PM COMPARISON: CT abdomen pelvis most recent from 11/29/2023, 10/20/2023. CLINICAL INDICATION:Male, 48 years old with history of abdominal pain, nonlocalized; patient c/o abd pain, nausea, dizziness x2 days. TECHNIQUE: Axial CT abdomen pelvis w con;Sagittal and coronal reformats were created on a separate w orkstation. Contrast used:100ml mL of Isovue 300 with IV Contrast, (none if empty) Oral contrast used: without Oral Contrast (none if empty) FINDINGS: LOWER CHEST: Patchy ground glass changes likely related to air trapping on expiration. ABDOMEN LIVER: The liver has a cirrhotic morphology. Diffuse hypoattenuation of the liver parenchyma GALLBLADDER AND BILE DUCTS: The gallbladder is surgically absent. PANCREAS: Unremarkable. SPLEEN: The spleen is mildly enlarged measuring 14.3 cm in craniocaudal dimension. ADRENAL GLANDS: Unremarkable. KIDNEYS AND URETERS: No evidence of hydronephrosis. Punctate nonobstructive bilateral renal calculi.. The ureters are unremarkable. PELVIS BLADDER: Unremarkable REPRODUCTIVE: Unremarkable. ABDOMEN & PELVIS STOMACH AND BOWEL: Stomach is grossly unremarkable. Small bowel is of normal caliber. There is postsu rgical changes involving the distal bowel. No evidence of bowel obstruction. PERITONEUM/RETROPERITONEUM: No evidence of pneumoperitoneum. Trace perihepatic free fluid. VASCULATURE: No evidence of aortic aneurysm. Redemonstrated multiple large varicosities in the spleni c gastric, paraesophageal region. MUSCULOSKELETAL: No acute osseous abnormalities LYMPH NODES: No gross evidence for lymphadenopathy. SOFT TISSUE/ABDOMINAL WALL: There is similar edema and small foci of gas in the anterior abdominal wa ll midline relatively unchanged when compared to the most recent CT in reference. Previously subcutan eous drain is not visualized on today's exam. No organized fluid collection seen at this time. IMPRESSION: 1. Severe hepatic steatosis with cirrhosis and findings of portal hypertension similar to previous st udy. 2. Stable appearance of edema and subcutaneous gas along the anterior abdominal wall relatively uncha nged from most recent study in reference. No evidence for abscess at this time. 3. Punctate nonobstructive bilateral renal calculi.
[2023-12-09] MEDS ORDERED: Magnesium Replacement Protocol 1 EACH MISC MISCELLANE PRN (23:14)
[2023-12-09] MEDS ORDERED: Potassium Replacement Protocol 1 EACH MISC MISCELLANE PRN (23:14)
[2023-12-09] MEDS: POTASSIUM CHLORIDE 10 MEQ in WATER FOR INJECTION 1 100ML.BAG IVPB SCH (23:37)
[2023-12-09] MEDS: MAGNESIUM SULFATE-D5W PMX 1 GM in DEXTROSE/WATER 1 100ML.BAG IVPB SCH (23:37)
[2023-12-09] MEDS: POTASSIUM CHLORIDE ER 20 MEQ TAB.ER PO SCH (23:38)
[2023-12-09] MEDS ORDERED: ONDANSETRON 4 MG/2 ML VIAL IVP PRN (23:40)
[2023-12-09] MEDS ORDERED: NALOXONE 0.4 MG/ML 1 ML VIAL IV PRN (23:40)
[2023-12-09] MEDS ORDERED: IBUPROFEN 400 MG TAB PO PRN (23:40)
[2023-12-10] MEDS: METOCLOPRAMIDE 5 MG/ML 2 ML VIAL IVP STA (03:56)
[2023-12-10] MEDS: MORPHINE SULFATE 4 MG/ML SYRINGE IV PRN (04:38)
[2023-12-10 05:34] VITALS: RESP 18
[2023-12-10 05:41] LABS: Magnesium 1.8 mg/dL (1.6-2.3); Potassium 2.8 mmol/L (3.5-5.1)
[2023-12-10 07:40] VITALS: TEMP 98.4
[2023-12-10] MEDS: POTASSIUM CHLORIDE ER 20 MEQ TAB.ER PO STA (10:00)
[2023-12-10 12:18] VITALS: BP 145/78; PULSE 85
--- NOTE | 2023-12-10 12:35 | P.HPIM ---
History of Present Illness H&P Date: 12/10/23 Chief Complaint: Abdominal pain History and Physical and Discharge Summary: This is a 48-year-old gentleman recently admitted and discharged by general surgery, Dr. Lizarraga on 11/29/2023, regarding left-sided abdominal pain status post ventral hernia repair multiple other medical issues presented to the ER with worsening diffuse abdominal pain, nausea, vomiting ,dizziness and weakness. Denies chest pain, palpitations or shortness of breath. On admission, afebrile, vital signs stable. WBC 3.6 , hemoglobin 12.5, platelets 54, INR 1.4 , sodium 138, potassium 2.8-supplemented, repeat level 3.6, bicarb 26, BUN 11, creatinine 0.59, glucose 116, lactic acid 2.3 resolved with IV fluid hydration, repeat level 1.7, magnesium 1.1, resolved with supplementation currently 1.8, T. bili 2.2, AST 250, ALT 112, alk phos 101, albumin 3.3, lipase 461, 3.91.Denies recent alcohol use. UA negative with trace of blood. On last admission, apparently presented with new onset pancytopenia,surgical debridement therefore cancelled. Surgeon reported ,she was notified by utilization review that his new insurance excludes care at this facility including her services. Patient was advised at that time to follow-up with Dr. Hdez out of [place], who had performed his initial operation in September 2023. Patient reports he did not follow-up. discussed with utilization review, patient has no out of network benefits at this site. Orthostatic vitals negative. PT evaluation pending. 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 Review of Systems ROS Statement: Those systems with pertinent positive or pertinent negative responses have been documented in the HPI. ROS Other: All systems not noted in ROS Statement are negative. Past Medical History Past Medical History: Asthma, Cancer, GI Bleed, Liver Disease, Pneumonia, Renal Disease, Skin Disorder Additional Past Medical History / Comment(s): Liver cirrhosis, portal HTN, abdominal ascities, pancreatitis, upper and lower GI bleeds, bleeding ulcers, esophageal varicies-banded, thrombocytopemia, chronic anemia, gallstones, ne phrolithiasis/hematuria, L inguinal hernia, psoriasis; paracentesis, umbilical hernia, left foot injury, pancreatic CA History of Any Multi-Drug Resistant Organisms: MRSA Date of last positivie culture/infection: 12/09/13 MDRO Source:: Right first finger Past Surgical History: Appendectomy, Cholecystectomy, Hernia Repair, Orthopedic Surgery Additional Past Surgical History / Comment(s): EGDs/varicies banding/colonoscopy, paracentesis, right hand tendon repair, right knee arthroscopy, cystoscopy for kidney stone removal, right hand ring finger surgery. surgery for umbilical hernia, Hernia repair on 10/13 at [facility]. Past Anesthesia/Blood Transfusion Reactions: Previous Problems w/ Anesthesia, Motion Sickness Additional Past Anesthesia/Blood Transfusion Reaction / Comment(s): Woke up during scope procedure. Past Psychological History: Anxiety, Bipolar, Depression, PTSD Additional Psychological History / Comment(s): He uses no assistive device. He does not drive, uses bus system. Smoking Status: Current every day smoker Past Alcohol Use History: Occasional Additional Past Alcohol Use History / Comment(s): Pt states he started smoking in 1984- states he is back up to a [facility]. he staes he quit drinking 4 months ago and recently drank a fifth las tnight due to his pain. Past Drug Use History: None Reported Additional Drug Use History / Comment(s): pt stats he last smoked marijuana on 10/28/19 and last did cocaine on 10/25/19. - Past Family History Mother Family Medical History: No Reported History Additional Family Medical History / Comment(s): Mother has health issues from a MVA-pt did not elaborate. Father Family Medical History: Vascular Disorder Additional Family Medical History / Comment(s): Prostate issues grandpa. Brain aneurysm father. Medications and Allergies Home Medications Medication Instructions Recorded Confirmed Type Albuterol Inhaler [Ventolin Hfa 1 - 2 puff INHALATION RT-Q4H PRN 11/10/23 12/10/23 History Inhaler] HYDROcodone/APAP 10-325MG [[place] 1 tab PO TID PRN 30 Days #90 tab 11/10/23 12/10/23 Rx 10-325] Lactulose 20 gm PO TID PRN 11/10/23 12/10/23 History Magnesium Oxide [Magnesium] 500 mg PO DAILY 11/10/23 12/10/23 History Pantoprazole [Protonix] 40 mg PO BID 11/10/23 12/10/23 History Potassium Chloride ER [K-Dur 10] 10 meq PO DAILY 11/10/23 12/10/23 History atenoloL 25 mg PO DAILY 11/10/23 12/10/23 History Multivit-Mins/Iron/Folic/Lycop 1 tab PO DAILY 11/29/23 12/10/23 History [Centrum Men's Tablet] Allergies Allergy/AdvReac Type Severity Reaction Status Date / Time No Known Allergies Allergy Verified 12/10/23 08:43 Physical Exam Vitals: Vital Signs Temp Pulse Pulse Resp BP BP Pulse Ox 12/10/23 07:39 98.4 F 73 18 135/78 95 12/10/23 07:20 73 18 12/10/23 05:25 97.7 F 81 18 144/76 96 12/10/23 04:06 78 16 136/72 94 L 12/10/23 02:50 76 13 145/72 95 12/10/23 00:38 97.9 F 70 16 124/72 98 12/09/23 23:42 81 18 135/68 94 L 12/09/23 21:58 73 18 128/73 95 12/09/23 20:58 70 16 130/70 94 L 12/09/23 19:31 98.1 F 80 22 129/76 96 Intake and Output 12/09/23 12/10/23 12/10/23 22:59 06:59 14:59 Other: Weight 89.358 kg 89.358 kg General: [Patient awake, alert and oriented times 3, sitting up in bed. no acute distress. HEENT: [PERRL. EOMI. No pharyngeal erythema or exudate.] Neck: Supple, no JVD Cardiac: [Heart regular in rate and rhythm. No S3. No S4. No clicks, rubs. No murmur.] Lungs: Unlabored, equal air entry, bibasilar crackles] Abdomen: Soft, nondistended, nontender, midline incision well-approximated with the exception of small opening at distal end, clean dry and intact without drainage. Positive bowel sounds Extremes: [No edema no cyanosis no claudication normal pulses] Skin: [No rash, warm and dry.] Neurologic: CN II - XII grossly intact.] Results CBC & Chem 7: 12/09/23 20:44 12/10/23 12:25 Labs: Abnormal Lab Results - Last 24 Hours (Table) 12/09/23 12/09/23 12/09/23 Range/Units 20:44 20:44 20:44 WBC 3.6 L (3.8-10.6) k/uL RBC 4.05 L (4.30-5.90) m/uL Hgb 12.5 L (13.0-17.5) gm/dL RDW 16.2 H (11.5-15.5) % Plt Count 54 L (150-450) k/uL Lymphocytes # 0.9 L (1.0-4.8) k/uL PT (10.0-12.5) sec INR (<1.2) Potassium 2.8 L (3.5-5.1) mmol/L Creatinine 0.59 L (0.66-1.25) mg/dL Glucose 116 H (74-99) mg/dL Plasma Lactic Acid Balaji (0.7-2.0) mmol/L Magnesium (1.6-2.3) mg/dL Total Bilirubin 2.2 H (0.2-1.3) mg/dL AST 250 H (17-59) U/L ALT 112 H (4-49) U/L Albumin 3.3 L (3.5-5.0) g/dL Lipase 461 H (23-300) U/L Urine Blood Trace H (Negative) Urine RBC 7 H (0-5) /hpf Urine Mucus Rare H (None) /hpf 12/09/23 12/09/23 12/09/23 Range/Units 20:44 22:28 22:40 WBC (3.8-10.6) k/uL RBC (4.30-5.90) m/uL Hgb (13.0-17.5) gm/dL RDW (11.5-15.5) % Plt Count (150-450) k/uL Lymphocytes # (1.0-4.8) k/uL PT 14.3 H (10.0-12.5) sec INR 1.4 H (<1.2) Potassium (3.5-5.1) mmol/L Creatinine (0.66-1.25) mg/dL Glucose (74-99) mg/dL Plasma Lactic Acid Balaji 2.3 H* (0.7-2.0) mmol/L Magnesium 1.1 L (1.6-2.3) mg/dL Total Bilirubin (0.2-1.3) mg/dL AST (17-59) U/L ALT (4-49) U/L Albumin (3.5-5.0) g/dL Lipase (23-300) U/L Urine Blood (Negative) Urine RBC (0-5) /hpf Urine Mucus (None) /hpf 12/10/23 Range/Units 05:22 WBC (3.8-10.6) k/uL RBC (4.30-5.90) m/uL Hgb (13.0-17.5) gm/dL RDW (11.5-15.5) % Plt Count (150-450) k/uL Lymphocytes # (1.0-4.8) k/uL PT (10.0-12.5) sec INR (<1.2) Potassium 2.8 L (3.5-5.1) mmol/L Creatinine (0.66-1.25) mg/dL Glucose (74-99) mg/dL Plasma Lactic Acid Balaji (0.7-2.0) mmol/L Magnesium (1.6-2.3) mg/dL Total Bilirubin (0.2-1.3) mg/dL AST (17-59) U/L ALT (4-49) U/L Albumin (3.5-5.0) g/dL Lipase (23-300) U/L Urine Blood (Negative) Urine RBC (0-5) /hpf Urine Mucus (None) /hpf Thrombosis Risk Factor Assmnt - Choose All That Apply Any of the Below Risk Factors Present?: Yes Each Factor Represents 1 point: Medical pt on bed rest Thrombosis Risk Factor Assessment Total Risk Factor Score: 1 Thrombosis Risk Factor Assessment Level: Low Risk Assessment and Plan Assessment: Abdominal pain ,status post open ventral hernia repair. chronic anemia, secondary to the above Pancytopenia Hypokalemia, supplemented, resolved Hypomagnesemia, supplemented, resolved Elevated lipase, trending down History of esophageal varices with multiple bandings Elevated LFTs in a patient with history of alcoholic cirrhosis of liver, chronic alcoholic hepatitis Portal hypertension History of ascites with multiple paracentesis Alcohol dependence, denies current use History of polysubstance abuse including cocaine, heroin, marijuana Hyperammonia Noncompliance Chronic alcoholic hepatitis Chronic nicotine dependence History of nephrolithiasis Plan: Continue on current medication regimen ,monitoring and symptomatic treatment. IV fluid hydration completed. pain management-MS discontinued, controlled with Toradol. patient complains of generalized weakness, evaluated by PT, reporting he did well and can safely DC home. d Patient has been readvised to follow-up with [facility], Dr. Hdez initial surgeon, where his medical insurance is accepted. Patient will be discharged home today in a stable condition with guarded prognosis. 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 Discharge Medication List Albuterol Inhaler [Ventolin Hfa Inhaler] 1 - 2 puff INHALATION RT-Q4H PRN 11/10/23 [History] HYDROcodone/APAP 10-325MG [[place] 10-325] 1 tab PO TID PRN 30 Days #90 tab 11/10/23 [Rx] Lactulose 20 gm PO TID PRN 11/10/23 [History] Magnesium Oxide [Magnesium] 500 mg PO DAILY 11/10/23 [History] Pantoprazole [Protonix] 40 mg PO BID 11/10/23 [History] Potassium Chloride ER [K-Dur 10] 10 meq PO DAILY 11/10/23 [History] atenoloL 25 mg PO DAILY 11/10/23 [History] Multivit-Mins/Iron/Folic/Lycop [Centrum Men's Tablet] 1 tab PO DAILY 11/29/23 [History] The impression and plan of care has been dictated as directed. : I performed a history and examination of this patient, discussed the same with the dictator. I agree with the dictator's note ,documented as a scribe. Any additional findings or plans will be noted.
[2023-12-10 12:57] LABS: Potassium 3.6 mmol/L (3.5-5.1)
[2023-12-10] MEDS: PANTOPRAZOLE 40 MG/10 ML VIAL IVP SCH (13:48)
[2023-12-10] MEDS: KETOROLAC 15 MG/ML 1 ML VIAL IVP PRN (13:48)
[2023-12-10] MEDS ORDERED: POTASSIUM CHLORIDE ER 20 MEQ TAB.ER PO STA (13:57)
--- NOTE | 2023-12-10 15:00 | P.GSCN ---
History of Present Illness Consult date: 12/10/23 History of present illness: CHIEF COMPLAINT: Complex abdominal wound HISTORY OF PRESENT ILLNESS: The patient is a 48 year old male with a complicated surgical history including status post abdominal wall reconstruction in September 2023 at [facility] Dr. Hdez with postop return x 2. Patient had abdominal wall and debridement over 6 weeks ago. Patient reports new nausea vomiting with diarrhea for 5+ days. He has pre-existing cirrhosis and liver disease. Patient reports returning to the emergency room due to generalized malaise, weakness, abdominal pain. General surgery is consulted due to his complex abdominal wall history and surgeries. Incidentally, patient reports avoiding nicotine for his overall recovery. He reports minimal drainage of his midline incision/wound. PAST MEDICAL HISTORY: See list and reviewed PAST SURGICAL HISTORY: See list and reviewed MEDICATIONS: See list and reviewed ALLERGIES: See list and reviewed SOCIAL HISTORY: See list and reviewed FAMILY HISTORY: See list and reviewed REVIEW OF ORGAN SYSTEMS: CONSTITUTIONAL: No fevers or chills. No recent weight loss. EYES: Denies any trouble with vision. No glasses. HEENT: No difficulties with hearing. No nosebleeds. No difficulty swallowing. RESPIRATORY: Has tobacco abuse disorder. Has asthma. History of pneumonia. CARDIOVASCULAR: Has hypertensive heart disease. GASTROINTESTINAL: Has cirrhosis of the liver with esophageal varices including ascites. History of GI bleed. Has portal hypertension. History of pancreatic cancer. GENITOURINARY: History of kidney stones. NEUROLOGICAL: Has chronic pain syndrome. MUSCULOSKELETAL: Has back pain, stiffness or joint arthritis. SKIN: Has psoriasis. PSYCHIATRIC: Has generalized anxiety disorder, bipolar disorder, depressive disorder, posttraumatic stress disorder. ENDOCRINE: Denies current thyroid disorders. Denies any blood sugar glucose intolerance. HEME/LYMPHATIC: Denies any lumps and bumps around the neck. No recent deep venous thrombosis. Has thrombocytopenia. Has chronic anemia. ALLERGY/IMMUNOLOGY: No immunoglobulin therapy. No immune deficiencies. History of MRSA. BREAST: Denies current breast lumps, pain or nipple discharge. PHYSICAL EXAM: VITALS: Reviewed CONSTITUTIONAL: Well developed and in no acute distress. EYES: Conjuctivae without sclera icterus. Extraocular movements grossly intact. HEAD, EARS, NOSE, THROAT: Moist buccal mucosa. Head is atraumatic, normocephalic. Hears conversational speech. No nasal drainage. NECK: Supple. No JV distention. No thyroidomegaly. RESPIRATORY: Non-labored respirations and equal bilateral excursions. No gross wheezes. CARDIOVASCULAR: Palpable 2+ radial pulses. ABDOMEN: Midline incision with moderate retraction and healing of the midline down to 1 cm. No cellulitis or infection. LYMPH: No neck lymphadenopathy. MUSCULOSKELETAL: No clubbing cyanosis or edema SKIN: Warm and well perfused with good skin turgor. NEUROLOGIC: Cranial nerves II through XII grossly intact. No focal or lateralizing signs. PSYCH: Appropriate affect. Alert and oriented to person, place and time. Displays appropriate insight. CLINCAL LABS: Reviewed. Potassium low at 2.8, hypokalemia on admission. Platelets further declining 54,000 from 71,000 upon prior admission 10 days ago. LFTs elevated. IMAGING: Independently reviewed. CT of the abdomen pelvis demonstrates moderate resolution of subcutaneous edema. No abdominal wall abscess. No intra- abdominal processes such as bowel obstruction or free air. This is my independent interpretation. ASSESSMENT: 1. Nausea vomiting with diarrhea 2. Severe hypokalemia 3. Pre-existing liver disorder with liver cirrhosis 4. Tobacco abuse disorder 5. Thrombocytopenia 6. Abdominal pain 7. History of abdominal wall reconstruction for abdominal wall hernia PLAN: 1. Clinically is doing better after correction of his potassium levels. Continue with IV fluid hydration for dehydration secondary to nausea vomiting diarrhea for 5 days. 2. No acute surgical invention for midline incision which demonstrates moderate improvement in past 2 weeks as he stopped smoking. Continue with high-protein diet for optimal wound healing. 3. 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 ADVANCE DIRECTIVE: CODE STATUS in chart Past Medical History Past Medical History: Asthma, Cancer, GI Bleed, Liver Disease, Pneumonia, Renal Disease, Skin Disorder Additional Past Medical History / Comment(s): Liver cirrhosis, portal HTN, abdominal ascities, pancreatitis, upper and lower GI bleeds, bleeding ulcers, esophageal varicies-banded, thrombocytopemia, chronic anemia, gallstones, nephrolithiasis/hematuria, L inguinal hernia, psoriasis; paracentesis, umbilical hernia, left foot injury, pancreatic CA History of Any Multi-Drug Resistant Organisms: MRSA Year Discovered:: 12/09/13 MDRO Source:: Right first finger Past Surgical History: Appendectomy, Cholecystectomy, Hernia Repair, Orthopedic Surgery Additional Past Surgical History / Comment(s): EGDs/varicies banding/colonoscopy, paracentesis, right hand tendon repair, right knee arthroscopy, cystoscopy for kidney stone removal, right hand ring finger surgery. surgery for umbilical hernia, Hernia repair on 10/13 at [facility]. Past Anesthesia/Blood Transfusion Reactions: Previous Problems w/ Anesthesia, Motion Sickness Additional Past Anesthesia/Blood Transfusion Reaction / Comm: Woke up during scope procedure. Past Psychological History: Anxiety, Bipolar, Depression, PTSD Additional Psychological History / Comment(s): He uses no assistive device. He does not drive, uses bus system. Smoking Status: Current every day smoker Past Alcohol Use History: Occasional Additional Past Alcohol Use History / Comment(s): Pt states he started smoking in 1984- states he is back up to a ppd. he staes he quit drinking 4 months ago and recently drank a fifth las tnight due to his pain. Past Drug Use History: None Reported Additional Drug Use History / Comment(s): pt stats he last smoked marijuana on 10/28/19 and last did cocaine on 10/25/19. - Past Family History Mother Family Medical History: No Reported History Additional Family Medical History / Comment(s): Mother has health issues from a MVA-pt did not elaborate. Father Family Medical History: Vascular Disorder Additional Family Medical History / Comment(s): Prostate issues grandpa. Brain aneurysm father. Medications and Allergies Home Medications Medication Instructions Recorded Confirmed Type Albuterol Inhaler [Ventolin Hfa 1 - 2 puff INHALATION RT-Q4H PRN 11/10/23 12/10/23 History Inhaler] HYDROcodone/APAP 10-325MG [[place] 1 tab PO TID PRN 30 Days #90 tab 11/10/23 12/10/23 Rx 10-325] Lactulose 20 gm PO TID PRN 11/10/23 12/10/23 History Magnesium Oxide [Magnesium] 500 mg PO DAILY 11/10/23 12/10/23 History Pantoprazole [Protonix] 40 mg PO BID 11/10/23 12/10/23 History Potassium Chloride ER [K-Dur 10] 10 meq PO DAILY 11/10/23 12/10/23 History atenoloL 25 mg PO DAILY 11/10/23 12/10/23 History Multivit-Mins/Iron/Folic/Lycop 1 tab PO DAILY 11/29/23 12/10/23 History [Centrum Men's Tablet] Allergies Allergy/AdvReac Type Severity Reaction Status Date / Time No Known Allergies Allergy Verified 12/10/23 08:43 Surgical - Exam Vital Signs Temp Pulse Resp BP Pulse Ox 98.1 F 80 22 129/76 96 12/09/23 19:31 12/09/23 19:31 12/09/23 19:31 12/09/23 19:31 12/09/23 19:31 Results - Labs 12/09/23 20:44 12/10/23 12:25 Abnormal Lab Results - Last 24 Hours (Table) 12/09/23 12/09/23 12/09/23 Range/Units 20:44 20:44 20:44 WBC 3.6 L (3.8-10.6) k/uL RBC 4.05 L (4.30-5.90) m/uL Hgb 12.5 L (13.0-17.5) gm/dL RDW 16.2 H (11.5-15.5) % Plt Count 54 L (150-450) k/uL Lymphocytes # 0.9 L (1.0-4.8) k/uL PT (10.0-12.5) sec INR (<1.2) Potassium 2.8 L (3.5-5.1) mmol/L Creatinine 0.59 L (0.66-1.25) mg/dL Glucose 116 H (74-99) mg/dL Plasma Lactic Acid Balaji (0.7-2.0) mmol/L Magnesium (1.6-2.3) mg/dL Total Bilirubin 2.2 H (0.2-1.3) mg/dL AST 250 H (17-59) U/L ALT 112 H (4-49) U/L Albumin 3.3 L (3.5-5.0) g/dL Lipase 461 H (23-300) U/L Urine Blood Trace H (Negative) Urine RBC 7 H (0-5) /hpf Urine Mucus Rare H (None) /hpf 12/09/23 12/09/23 12/09/23 Range/Units 20:44 22:28 22:40 WBC (3.8-10.6) k/uL RBC (4.30-5.90) m/uL Hgb (13.0-17.5) gm/dL RDW (11.5-15.5) % Plt Count (150-450) k/uL Lymphocytes # (1.0-4.8) k/uL PT 14.3 H (10.0-12.5) sec INR 1.4 H (<1.2) Potassium (3.5-5.1) mmol/L Creatinine (0.66-1.25) mg/dL Glucose (74-99) mg/dL Plasma Lactic Acid Balaji 2.3 H* (0.7-2.0) mmol/L Magnesium 1.1 L (1.6-2.3) mg/dL Total Bilirubin (0.2-1.3) mg/dL AST (17-59) U/L ALT (4-49) U/L Albumin (3.5-5.0) g/dL Lipase (23-300) U/L Urine Blood (Negative) Urine RBC (0-5) /hpf Urine Mucus (None) /hpf 12/10/23 12/10/23 Range/Units 05:22 12:25 WBC (3.8-10.6) k/uL RBC (4.30-5.90) m/uL Hgb (13.0-17.5) gm/dL RDW (11.5-15.5) % Plt Count (150-450) k/uL Lymphocytes # (1.0-4.8) k/uL PT (10.0-12.5) sec INR (<1.2) Potassium 2.8 L (3.5-5.1) mmol/L Creatinine (0.66-1.25) mg/dL Glucose (74-99) mg/dL Plasma Lactic Acid Balaji (0.7-2.0) mmol/L Magnesium (1.6-2.3) mg/dL Total Bilirubin (0.2-1.3) mg/dL AST (17-59) U/L ALT (4-49) U/L Albumin (3.5-5.0) g/dL Lipase 391 H (23-300) U/L Urine Blood (Negative) Urine RBC (0-5) /hpf Urine Mucus (None) /hpf Diabetes panel 12/09/23 12/10/23 12/10/23 Range/Units 20:44 05:22 12:25 Sodium 138 (137-145) mmol/L Potassium 2.8 L 2.8 L 3.6 (3.5-5.1) mmol/L Chloride 106 (98-107) mmol/L Carbon Dioxide 26 (22-30) mmol/L BUN 11 (9-20) mg/dL Creatinine 0.59 L (0.66-1.25) mg/dL Glucose 116 H (74-99) mg/dL Calcium 9.5 (8.4-10.2) mg/dL AST 250 H (17-59) U/L ALT 112 H (4-49) U/L Alkaline Phosphatase 101 (38-126) U/L Total Protein 6.3 (6.3-8.2) g/dL Albumin 3.3 L (3.5-5.0) g/dL Calcium panel 12/09/23 Range/Units 20:44 Calcium 9.5 (8.4-10.2) mg/dL Albumin 3.3 L (3.5-5.0) g/dL Pituitary panel 12/09/23 12/10/23 12/10/23 Range/Units 20:44 05:22 12:25 Sodium 138 (137-145) mmol/L Potassium 2.8 L 2.8 L 3.6 (3.5-5.1) mmol/L Chloride 106 (98-107) mmol/L Carbon Dioxide 26 (22-30) mmol/L BUN 11 (9-20) mg/dL Creatinine 0.59 L (0.66-1.25) mg/dL Glucose 116 H (74-99) mg/dL Calcium 9.5 (8.4-10.2) mg/dL Adrenal panel 12/09/23 12/10/23 12/10/23 Range/Units 20:44 05:22 12:25 Sodium 138 (137-145) mmol/L Potassium 2.8 L 2.8 L 3.6 (3.5-5.1) mmol/L Chloride 106 (98-107) mmol/L Carbon Dioxide 26 (22-30) mmol/L BUN 11 (9-20) mg/dL Creatinine 0.59 L (0.66-1.25) mg/dL Glucose 116 H (74-99) mg/dL Calcium 9.5 (8.4-10.2) mg/dL Total Bilirubin 2.2 H (0.2-1.3) mg/dL AST 250 H (17-59) U/L ALT 112 H (4-49) U/L Alkaline Phosphatase 101 (38-126) U/L Total Protein 6.3 (6.3-8.2) g/dL Albumin 3.3 L (3.5-5.0) g/dL
== END 2023-12-10 16:03 | disposition home or self-care (01) | DRG 433 ==
LOC: EC 19:29 → 4SSUR 23:14
PROVIDERS: ADMIT Family Medicine; ATTEND Family Medicine
DX: K70.30 Alcoholic cirrhosis of liver without ascites (principal); D61.818 Other pancytopenia; I85.10 Secondary esophageal varices without bleeding; K76.6 Portal hypertension; L40.9 Psoriasis, unspecified; F14.11 Cocaine abuse, in remission; F17.210 Nicotine dependence, cigarettes, uncomplicated; F31.9 Bipolar disorder, unspecified; F41.9 Anxiety disorder, unspecified; F43.10 Post-traumatic stress disorder, unspecified; J45.909 Unspecified asthma, uncomplicated; K70.10 Alcoholic hepatitis without ascites; Z79.899 Other long term (current) drug therapy; Z85.07 Personal history of malignant neoplasm of pancreas; Z87.442 Personal history of urinary calculi; Z91.199 Patient's noncompliance with other medical treatment and regimen due to unspecified reason; E83.42 Hypomagnesemia; E87.6 Hypokalemia; Z86.14 Personal history of Methicillin resistant Staphylococcus aureus infection; Z87.01 Personal history of pneumonia (recurrent)
CPT/HCPCS: 36415; 74177; 80053; 81001; 83605; 83690; 83735; 84132; 85025; 85610; 85730; 93005; 96361; 96365; 96366; 96368; 96375; 99285

== ENCOUNTER → 2024-01-05 | Outpatient (CLI) | payer OTHER | LOC: PNWHC3 12:30 | PROVIDERS: ATTEND Specialist | DX: G89.18 Other acute postprocedural pain | CPT/HCPCS: 99211 ==

== ENCOUNTER → 2024-05-03 | Outpatient (CLI) | payer OTHER ==
[2024-05-03 14:13] VITALS: BP 139/90; PULSE 106; RESP 16
--- NOTE | 2024-05-03 15:24 | P.PAINPG ---
Objective - Vital Signs Vital signs: Vital Signs Temp Pulse 106 H 05/03/24 14:04 Resp 16 05/03/24 14:04 BP 139/90 05/03/24 14:04 Pulse Ox 95 05/03/24 14:04 FiO2 Intake & Output 05/02/24 05/03/24 05/03/24 18:59 06:59 18:59 Weight 89.811 kg PQRS Measure Charge Sheet Mode of Arrival: Ambulatory Comment: HISTORY OF PRESENT ILLNESS: A 48 yr old male presents today w severe and chronic abdominal pain secondary to Hx of pancreatic CA and pancreatitis for medication refills. Pt states he missed his Celiac Plexus Nerve Block OR appt due to being hospitalized at another hospital. Records indicate he was hospitalized on 03/13/24 when he missed his 03/03/24 OR appt. Pt states pain level is provoked at 7 /10 in intensity, constant, localized in the upper abd, burning in character w occasional shooting pain towards the back. Pain is provoked by meals, multiple abdominal surgeries. Pain is alleviated by heat, medications, repositioning and rest . Interventional procedures include Medications include Lima 10/325mg #90, Hx of ETOH abuse, Cocaine/ Heroin Abuse/ Cannabis use REVIEW OF ORGAN SYSTEMS: CONSTITUTIONAL: No fevers or chills. No recent weight loss. NEUROLOGICAL: + numbness and tingling along the distal extremities. No seizure disorders or headaches. MUSCULOSKELETAL: + pain PSYCHIATRIC: Denies current depression or suicidal thoughts. Physical Examinations : Constitutional : Cooperative , not in acute distress . Neurologic : Cranial nerve II to XII intact. No focal neurological deficits. Psychiatric : alert & oriented x 3. Matching mood & appropriate affect. Judgment & insight intact. Musculoskeletal : +Abd Guarding, +Abd Distention Cervical Spine Motor strength in the deltoid and biceps: Normal right side. Normal Left side Motor strength biceps and the wrist extensors: Normal right side . Normal left side Motor strength in the triceps muscle: Normal right side. Normal left side Deep tendon reflexes: Normal at the biceps. Normal at Brachioradialis. Normal at triceps Vertebral body tenderness to deep palpation over Cervical facet loading test: positive bilaterally Spurling test: positive bilaterally Neck distraction test: positive bilaterally Reina sign: positive bilaterally Lumbar spine Motor strength lower extremities ,thigh and legs 5/5 Right side , 5/5 Left side Deep tendon reflexes : Normal Knee Jerk. Normal Ankle Jerk Vertebral body tenderness over Murillo Test positive Lumbar facet Loading Test: positive Right / positive Left Range of motion of the lumbar spine Flexion 30 degrees, extension 10 degrees Straight Leg Raise test: Left/ Right positive at degrees Terri test: positive right / positive left. Severe tenderness over the Sacroiliac joint on the Right / Left sides Gaenslen test: positive bilaterally Seated flexion test: positive bilaterally. Sacral spine : Severe tenderness over the Sacroiliac joint: right side / left side Range of motion: Flexion of the lumbar spine <60 degrees Range of motion: Extension of the l umbar spine <20 degrees Gaenslen's Test positive Terri test: positive right side / left side Thigh Thrust Test Sacral Thrust Test Assessment/ Plan : Chronic Abdominal Pain secondary to Pancreatic CA, Pancreatitis Recommendation of Celiac Plexus Nerve Block #1. Risks, benefits of procedure discussed and patient verbalized understanding. Protocol for discontinuation/ continuation of medications vincent procedure discussed. Minimal anesthesia provided, if clinically indicated, consisting of Versed and Fentanyl. Recommendation of medication management. UDS collected 05/03/24. Pt denies use of cannabis and ETOH and states he adhered to the rules of the narcotic agreement. Lima 10/325mg #90 w 1 RF. Use, side effects, adverse reactions, safe storage discussed. Opiate/ narcotic agreement signed 11/10/23. All questions answered. I have spent greater than 30 minutes on patient care today. Dr Patel was available by phone for the evaluation of this patient. The time was used to review the medical records including relevant urine studies and Prescription history (MAPs), review of the available imaging, evaluation and examination of the patient, coordination of care with the medical staff and if applicable referring physicians, as well as creation of the medical record - Pain Location Abdomen Pharmacological Interventions: Block, PRN Medication, Scheduled Medication, Topical Medication PQRS Narrative: Smoking Status Current every day smoker Blood Pressure 139/90 Pain Intensity [Abdomen] 7 Scale Used Numeric (1 - 10) Hx Alcohol Use (MH) No Home Medications: Ambulatory Orders Albuterol Inhaler [Ventolin Hfa Inhaler] 1 - 2 puff INHALATION RT-Q4H PRN 11/10/23 HYDROcodone/APAP 10-325MG [Lima 10-325] 1 tab PO TID PRN 30 Days #90 tab 11/10/23 Lactulose 20 gm PO TID PRN 11/10/23 Magnesium Oxide [Magnesium] 500 mg PO DAILY 11/10/23 Pantoprazole [Protonix] 40 mg PO BID 11/10/23 Potassium Chloride ER [K-Dur 10] 10 meq PO DAILY 11/10/23 atenoloL 25 mg PO DAILY 11/10/23 Multivit-Mins/Iron/Folic/Lycop [Centrum Men's Tablet] 1 tab PO DAILY 11/29/23 Controlled Substance Measures - Controlled Substance Measures Is patient prescribed a controlled substance at discharge?: Yes When asked, does pt state using other controlled substances?: No If prescribed controlled substance>3 days was MAPS reviewed?: Yes
== END ==
LOC: PNWHC3 13:55
PROVIDERS: ATTEND Specialist
DX: K85.90 Acute pancreatitis without necrosis or infection, unspecified (principal); C25.9 Malignant neoplasm of pancreas, unspecified; F17.200 Nicotine dependence, unspecified, uncomplicated
CPT/HCPCS: 80307; G0463; 99211

== ENCOUNTER 2024-06-08 07:59 | Day surgery (SDC) | payer OTHER ==
[2024-06-08] MEDS: LIDOCAINE 1% (10MG/ML) FOR IV START INTRADERMA STA (08:50)
[2024-06-08] MEDS: LACTATED RINGERS 1,000 ML IV SCH (08:50)
[2024-06-08] MEDS: IV FLUID CONTINUATION 1,000 ML IV ONE ×2 (08:50→09:34)
[2024-06-08 08:56] VITALS: RESP 16; TEMP 97.4
[2024-06-08] MEDS ORDERED: methylPREDNISolone ACETATE 80 MG/ML 1 ML VIAL ONE (09:06)
[2024-06-08] MEDS ORDERED: fentaNYL (PF) 50 MCG/ML 2 ML AMP ONE (09:06)
[2024-06-08] MEDS ORDERED: IOPAMIDOL M200 10 ML VIAL ONE (09:06)
[2024-06-08] MEDS ORDERED: ROPIVACAINE 5MG/ML 20ML VIAL ONE (09:06)
[2024-06-08] MEDS ORDERED: MIDAZOLAM 2 MG/2 ML VIAL ONE (09:06)
--- NOTE | 2024-06-08 09:34 | P.PCN ---
Date of Procedure: 06/08/24 Procedure(s) Performed: PREOPERATIVE DIAGNOSIS: 1-chronic pancreatitis with intractable abdominal pain. POSTOPERATIVE DIAGNOSIS: 1-chronic pancreatitis with intractable abdominal pain. PROCEDURE: celiac plexus block under fluoroscopy guidance (fluoroscopy images available in the audiology Department ) ANESTHESIA: Moderate sedation with Versed 4 mg and Fentanyl 150 Mcg (sedation start time 09:06, stoped at 09:27 EBL: Minimal PROCEDURE INDICATION: The patient has a history of abdominal pain secondary to chronic pancreatitis that is non responsive to more conservative treatments. PROCEDURE DESCRIPTION: The patient was seen and identified in the preoperative area. Risks, benefits, complications, and alternatives were discussed with the patient. The patient agreed to proceed with the procedure and signed the consent. IV was started, and vital signs were stable. Patient was taken to the OR and time out was completed.The patient was placed in the prone position on procedure table and a pillow was placed under the abdomen to reduce lumbar lordosis. The lumbosacral area was prepped and draped in the usual sterile fashion. Critical pause was taken. Vital signs were closely monitored during the procedure. Conscious sedation was used during the procedure to decrease patients anxiety. The procedure was performed in a similar fashion on the right side and on the left side. Using anterior-posterior fluoroscopy, the L1 spinous process and vertebral body were identified. Then, the fluoroscope was turned obliquely until the transverse process of L1 vertebra was totally behind the L1 vertebral body. Skin was then marked and infiltrated with Lidocaine 1% subcutaneously with a 25-guage needle at the level of the L1 vertebral body. Subsequently, a 22-guage 5-inch spinal needles was inserted and advanced toward anterior side of the L1 vertebral body under oblique fluoroscopic guidance and while keeping a ``tunnel view of the needle. Subsequently, 3 ml of the water soluble dye Omnipaque was injected under life fluoroscopy to confirm needle position. The spread of the dye along the anterior side of the L1 vertebral body was verified with AP and latter fluoroscopy. After satisfactory positioning of the needle and negative aspiration for CSF, blood, or any other contents, a total of 12 mL of 0.25% preservative-free Ropivacaine was injected with 5 ml increments and intermittent aspiration. Washout of the dye was seen and the needle was then withdrawn intact. Procedure was done bilaterally using the same technique on the right and left sides. A total of 24 ml of 0.25% preservative-free Ropivacaine was used during the procedure.At the end of the procedure, the operated areas were cleaned. Band-Aids were applied. COMPLICATIONS: None DISPOSITION / PLANS: The patient was placed in a supine position and transferred to the recovery area in a stable condition for observation and was discharged from the recovery room after meeting discharge criteria.Home discharge instructions given to the patient by the staff.The patient was reexamined prior to discharge. We will schedule a neurolytic block in one week if patient has more than 50% pain relief from this block.
[2024-06-08 09:54] VITALS: BP 138/86; PULSE 82
--- NOTE | 2024-06-08 09:57 | FL ---
EXAMINATION TYPE: FL guided pain mgmt statistic DATE OF EXAM: 06/08/2024 9:34 AM COMPARISON: Pre Operative Images if available both CT/MRI or plain film CLINICAL INDICATION: Male, 49 years old with history of CELIAC PLEXUS; TECHNIQUE: FL guided pain mgmt statistic, multiple fluoroscopic images provided for procedure. Total fluoroscopy time: 17 seconds Total submitted images to PACS: 4 DAP: 0.03653 mGym2 Gycm2 uGym2 cGycm2 or equivalent. FINDINGS: Fluoroscopic images during injection for pain management demonstrate multilevel degeneration changes throughout the spine. No evidence for fracture. No acute process identified. IMPRESSION: 1. No evidence for intraoperative complication. 2. Please see the operative/procedural note for further details. [facility], , 06/08/2024 9:55 AM
== END 2024-06-08 10:16 | disposition home or self-care (01) ==
LOC: ORPAIN 07:59
PROVIDERS: ATTEND Specialist
DX: K86.1 Other chronic pancreatitis (principal); R10.9 Unspecified abdominal pain
CPT/HCPCS: 64530; J2250; J3010; Q9966; J2795; J1010; 99152

== ENCOUNTER 2024-06-11 22:04 | Emergency (ER) | payer OTHER ==
[2024-06-11 22:09] VITALS: RESP 18
--- NOTE | 2024-06-11 22:31 | ED ---
General Adult HPI - General Chief complaint: Abdominal Pain Stated complaint: Abd pain Time Seen by Provider: 06/11/24 22:13 Source: patient, RN notes reviewed, old records reviewed Mode of arrival: ambulatory Limitations: no limitations - History of Present Illness Initial comments: 49 yo male presenting with right-sided abdominal pain. Patient does have history of chronic abdominal pain, history of pancreatitis. He reports a previous history of appendectomy. He is had a right-sided abdominal pain and flank pain as well as hematuria. Pain is chronic but significantly worsened today. He is had associated nausea vomiting. - Related Data Home Medications Medication Instructions Recorded Confirmed Albuterol Inhaler [Ventolin Hfa 1 - 2 puff INHALATION RT-Q4H PRN 11/10/23 06/08/24 Inhaler] Lactulose 20 gm PO TID PRN 11/10/23 06/08/24 Magnesium Oxide [Magnesium] 500 mg PO DAILY 11/10/23 06/08/24 Potassium Chloride ER [K-Dur 10] 10 meq PO DAILY 11/10/23 06/08/24 Multivit-Mins/Iron/Folic/Lycop 1 tab PO DAILY 11/29/23 06/08/24 [Centrum Men's Tablet] Previous Rx's Medication Instructions Recorded HYDROcodone/APAP 10-325MG [Harper 1 tab PO TID PRN 30 Days #90 tab 05/03/24 10-325] Allergies Allergy/AdvReac Type Severity Reaction Status Date / Time No Known Allergies Allergy Verified 06/11/24 22:06 Review of Systems ROS Statement: Those systems with pertinent positive or pertinent negative responses have been documented in the HPI. ROS Other: All systems not noted in ROS Statement are negative. Past Medical History Past Medical History: Asthma, Cancer, GI Bleed, Liver Disease, Pneumonia, Renal Disease, Skin Disorder Additional Past Medical History / Comment(s): Liver cirrhosis, portal HTN, abdominal ascities, pancreatitis, upper and lower GI bleeds, bleeding ulcers, esophageal varicies-banded, thrombocytopemia, chronic anemia, gallstones, nephrolithiasis/hematuria, L inguinal hernia, psoriasis; paracentesis, umbilical hernia, left foot injury, pancreatic CA History of Any Multi-Drug Resistant Organisms: MRSA Date of last positivie culture/infection: 12/09/13 MDRO Source:: Right first finger Past Surgical History: Appendectomy, Cholecystectomy, Hernia Repair, Orthopedic Surgery Additional Past Surgical History / Comment(s): EGDs/varicies b anding/colonoscopy, paracentesis, right hand tendon repair, right knee arthroscopy, cystoscopy for kidney stone removal, right hand ring finger surgery. surgery for umbilical hernia, Hernia repair on 10/13 at [facility]. Past Anesthesia/Blood Transfusion Reactions: Previous Problems w/ Anesthesia, Motion Sickness Additional Past Anesthesia/Blood Transfusion Reaction / Comment(s): Woke up during scope procedure. Past Psychological History: Anxiety, Bipolar, Depression, PTSD Smoking Status: Current every day smoker - Past Family History Mother Family Medical History: No Reported History Additional Family Medical History / Comment(s): Mother has health issues from a MVA-pt did not elaborate. Father Family Medical History: Vascular Disorder Additional Family Medical History / Comment(s): Prostate issues grandpa. Brain aneurysm father. General Exam Limitations: no limitations General appearance: alert, in no apparent distress Head exam: Present: atraumatic, normocephalic Eye exam: Present: normal appearance, PERRL ENT exam: Present: normal exam Neck exam: Present: normal inspection. Absent: tenderness, meningismus Respiratory exam: Present: normal lung sounds bilaterally. Absent: respiratory distress, wheezes Cardiovascular Exam: Present: regular rate, normal rhythm GI/Abdominal exam: Present: soft, tenderness. Absent: distended Neurological exam: Present: alert, oriented X3 Psychiatric exam: Present: normal affect, normal mood Skin exam: Present: warm, dry, intact Course Vital Signs 06/11/24 22:07 Temperature 98.2 F Pulse Rate 74 Respiratory 18 Rate Blood Pressure 143/72 O2 Sat by Pulse 97 Oximetry Medical Decision Making - Medical Decision Making Was pt. sent in by a medical professional or institution (, PA, REAL ESTATE BRANCH MANAGER, urgent care, hospital, or chcf...) When possible be specific @ -No Did you speak to anyone other than the patient for history (EMS, parent, family, police, friend...)? What history was obtained from this source @ -No Did you review nursing and triage notes (agree or disagree)? Why? @ -I reviewed and agree with nursing and triage notes Were old charts reviewed (outside hosp., previous admission, EMS record, old EKG, old radiological studies, urgent care reports/EKG's, [facility] records)? Report findings @ -No old charts were reviewed Differential Abdominal Pain Men: Appendicitis, cholecystitis, diverticulosis, ischemic bowel, pancreatitis, hepatitis, UTI, gastroenteritis, AAA, incarcerated hernia, bowel obstruction, constipation, inflammatory bowel, hepatitis, peptic ulcer disease, splenic infarction, perforated viscus, testicular torsion, this is not meant to be an all-inclusive list EKG interpreted by me (3pts min.). @ -As above X-rays interpreted by me (1pt min.). @ -None done CT interpreted by me (1pt min.). @ -[CT abdomen pelvis negative for obstructing stone, chronic stable abnormalities. There is concern for pneumonia however the patient has no cough, no fever, and no leukocytosis. U/S interpreted by me (1pt. min.). @ -None done What testing was considered but not performed or refused? (CT, X-rays, U/S, labs)? Why? @ -None What meds were considered but not given or refused? Why? @ -None Did you discuss the management of the patient with other professionals (professionals i.e. , PA, REAL ESTATE BRANCH MANAGER, lab, RT, psych nurse, social service assistant, producer, teacher, medical officer, pillowcase cleaner)? Give summary @ -No Was smoking cessation discussed for >3mins.? @ -No Was critical care preformed (if so, how long)? @ -No Were there social determinants of health that impacted care today? How? (Homelessness, low income, unemployed, alcoholism, drug addiction, transportation, low edu. Level, literacy, decrease access to med. care, [place] [facility], rehab)? @ -No Was there de-escalation of care discussed even if they declined (Discuss DNR or withdrawal of care, Hospice)? DNR status @ -No What co-morbidities impacted this encounter? (DM, HTN, Smoking, COPD, CAD, Cancer, CVA, ARF, Chemo, Hep., AIDS, mental health diagnosis, sleep apnea, morbid obesity)? @Liver cirrhosis, chronic pain Was patient admitted / discharged? Hospital course, mention meds given and route, prescriptions, significant lab abnormalities, going to OR and other pertinent info. @49-year-old male with acute on chronic abdominal pain. Patient had reported hematuria. He does have 12 red cells in his urine. CT is negative for obstructing stone. Patient has chronic stable lab abnormalities. He feels better after initial medication after fluids antiemetics and pain medication. He is stable for discharge with return parameters and close primary care follow- up. Undiagnosed new problem with uncertain prognosis? @ -No Drug Therapy requiring intensive monitoring for toxicity (Heparin, Nitro, Insulin, Cardizem)? @ -No Were any procedures done? @ -No Diagnosis/symptom? @ -Abdominal pain Acute, or Chronic, or Acute on Chronic? @Acute on chronic Uncomplicated (without systemic symptoms) or Complicated (systemic symptoms)? @ -Default Side effects of treatment? @ -No Exacerbation, Progression, or Severe Exacerbation? @ -No Poses a threat to life or bodily function? How? (Chest pain, [place], [place], pneumonia, PE, COPD, DKA, ARF, appy, cholecystitis, CVA, Diverticulitis, Homicidal, Suicidal, threat to staff... and all critical care pts) @ -No - Lab Data Result diagrams: 06/11/24 22:40 06/11/24 22:40 Lab Results 06/11/24 06/11/24 06/11/24 Range/Units 22:40 22:40 22:40 WBC 9.9 (3.8-10.6) k/uL RBC 3.91 L (4.30-5.90) m/uL Hgb 13.5 (13.0-17.5) gm/dL Hct 39.7 (39.0-53.0) % MCV 101.8 H (80.0-100.0) fL MCH 34.6 (25.0-35.0) pg MCHC 34.0 (31.0-37.0) g/dL RDW 13.7 (11.5-15.5) % Plt Count 150 (150-450) k/uL MPV 9.7 Neutrophils % 68 % Lymphocytes % 20 % Monocytes % 7 % Eosinophils % 2 % Basophils % 2 % Neutrophils # 6.7 (1.3-7.7) k/uL Lymphocytes # 2.0 (1.0-4.8) k/uL Monocytes # 0.7 (0-1.0) k/uL Eosinophils # 0.2 (0-0.7) k/uL Basophils # 0.2 (0-0.2) k/uL Macrocytosis Slight PT 12.3 (10.0-12.5) sec INR 1.1 (<1.2) APTT 24.0 (22.0-30.0) sec Sodium 146 H (137-145) mmol/L Potassium 3.4 L (3.5-5.1) mmol/L Chloride 112 H (98-107) mmol/L Carbon Dioxide 21 L (22-30) mmol/L Anion Gap 13 mmol/L BUN 9 (9-20) mg/dL Creatinine 0.63 L (0.66-1.25) mg/dL Est GFR (CKD-EPI)AfAm >90 (>60 ml/min/1.73 sqM) Est GFR (CKD-EPI)NonAf >90 (>60 ml/min/1.73 sqM) Glucose 107 H (74-99) mg/dL Plasma Lactic Acid Balaji (0.7-2.0) mmol/L Calcium 9.0 (8.4-10.2) mg/dL Total Bilirubin 2.3 H (0.2-1.3) mg/dL AST 149 H (17-59) U/L ALT 55 H (4-49) U/L Alkaline Phosphatase 124 (38-126) U/L Total Protein 7.8 (6.3-8.2) g/dL Albumin 4.3 (3.5-5.0) g/dL Amylase 68 (30-110) U/L Lipase 280 (23-300) U/L Urine Color Urine Appearance (Clear) Urine pH (5.0-8.0) Ur Specific [place] (1.001-1.035) Urine Protein (Negative) Urine Glucose (UA) (Negative) Urine Ketones (Negative) Urine Blood (Negative) Urine Nitrite (Negative) Urine Bilirubin (Negative) Urine Urobilinogen (<2.0) mg/dL Ur Leukocyte Esterase (Negative) Urine RBC (0-5) /hpf Urine WBC (0-5) /hpf Ur Squamous Epith Cells (0-4) /hpf Urine Mucus (None) /hpf Urine Yeast (Budding) (None) /hpf 06/11/24 06/11/24 Range/Units 22:40 22:40 WBC (3.8-10.6) k/uL RBC (4.30-5.90) m/uL Hgb (13.0-17.5) gm/dL Hct (39.0-53.0) % MCV (80.0-100.0) fL MCH (25.0-35.0) pg MCHC (31.0-37.0) g/dL RDW (11.5-15.5) % Plt Count (150-450) k/uL MPV Neutrophils % % Lymphocytes % % Monocytes % % Eosinophils % % Basophils % % Neutrophils # (1.3-7.7) k/uL Lymphocytes # (1.0-4.8) k/uL Monocytes # (0-1.0) k/uL Eosinophils # (0-0.7) k/uL Basophils # (0-0.2) k/uL Macrocytosis PT (10.0-12.5) sec INR (<1.2) APTT (22.0-30.0) sec Sodium (137-145) mmol/L Potassium (3.5-5.1) mmol/L Chloride (98-107) mmol/L Carbon Dioxide (22-30) mmol/L Anion Gap mmol/L BUN (9-20) mg/dL Creatinine (0.66-1.25) mg/dL Est GFR (CKD-EPI)AfAm (>60 ml/min/1.73 sqM) Est GFR (CKD-EPI)NonAf (>60 ml/min/1.73 sqM) Glucose (74-99) mg/dL Plasma Lactic Acid Balaji 1.4 (0.7-2.0) mmol/L Calcium (8.4-10.2) mg/dL Total Bilirubin (0.2-1.3) mg/dL AST (17-59) U/L ALT (4-49) U/L Alkaline Phosphatase (38-126) U/L Total Protein (6.3-8.2) g/dL Albumin (3.5-5.0) g/dL Amylase (30-110) U/L Lipase (23-300) U/L Urine Color Yellow Urine Appearance Clear (Clear) Urine pH 6.5 (5.0-8.0) Ur Specific [place] 1.012 (1.001-1.035) Urine Protein Negative (Negative) Urine Glucose (UA) Negative (Negative) Urine Ketones Negative (Negative) Urine Blood Moderate H (Negative) Urine Nitrite Negative (Negative) Urine Bilirubin Negative (Negative) Urine Urobilinogen 12.0 (<2.0) mg/dL Ur Leukocyte Esterase Negative (Negative) Urine RBC 12 H (0-5) /hpf Urine WBC 5 (0-5) /hpf Ur Squamous Epith Cells <1 (0-4) /hpf Urine Mucus Rare H (None) /hpf Urine Yeast (Budding) Rare H (None) /hpf Disposition Clinical Impression: Hypernatremia, Chronic alcoholic liver disease, Abdominal pain Disposition: HOME SELF-CARE Condition: Fair Instructions (If sedation given, give patient instructions): Abdominal Pain (ED) Is patient prescribed a controlled substance at d/c from ED?: No Referrals: James Meza Jr, [Primary Care Provider] - 1-2 days Time of Disposition: 00:06
[2024-06-11] MEDS: HYDROmorphone 1 MG/ML 1 ML SYRINGE IVP STA (22:41)
[2024-06-11] MEDS: SODIUM CHLORIDE 0.9% 1,000 ML IV STA (22:43)
[2024-06-11] MEDS: ONDANSETRON 4 MG/2 ML VIAL IVP STA (22:43)
[2024-06-11 22:58] LABS: Basophils # (A) 0.2 k/uL (0-0.2); Basophils % (A) 2 %; Eosinophils # (A) 0.2 k/uL (0-0.7); Eosinophils % (A) 2 %; HCT 39.7 % (39.0-53.0); HGB 13.5 gm/dL (13.0-17.5); Lymphocytes % (A) 20 %; MCH 34.6 pg (25.0-35.0); MCV 101.8 fL (80.0-100.0); Macrocytosis Slight; Mean Platelet Volume 9.7; Monocytes # (A) 0.7 k/uL (0-1.0); Monocytes % (A) 7 %; Neutrophils # (A) 6.7 k/uL (1.3-7.7); Neutrophils % (A) 68 %; Platelet Count 150 k/uL (150-450); RBC 3.91 m/uL (4.30-5.90); RDW 13.7 % (11.5-15.5); WBC 9.9 k/uL (3.8-10.6)
[2024-06-11 23:15] LABS: INR 1.1 (<1.2); Prothrombin Time 12.3 sec (10.0-12.5)
[2024-06-11 23:18] LABS: Appearance,Urine Clear (Clear); Bilirubin,Urine Negative (Negative); Blood,Urine Moderate (Negative); Budding Yeast,Urine Rare /hpf; Color,Urine Yellow; Glucose,Urine (UA) Negative (Negative); Ketones,Urine Negative (Negative); Leukocyte Esterase,Urine Negative (Negative); Mucus,Urine Rare /hpf; Nitrite,Urine Negative (Negative); PH, Urine 6.5 (5.0-8.0); Protein,Urine Negative (Negative); RBC,Urine 12 /hpf (0-5); Specific Gravity,Urine 1.012 (1.001-1.035); Squamous Epithelial Cell,Urine <1 /hpf (0-4); WBC,Urine 5 /hpf (0-5)
[2024-06-11 23:22] LABS: ALT 55 U/L (4-49); AST 149 U/L (17-59); African American GFR (CKD) >90 (>60 ml/min/1.73 sqM); Albumin 4.3 g/dL (3.5-5.0); Alkaline Phosphatase 124 U/L (38-126); Amylase 68 U/L (30-110); Anion Gap 13 mmol/L; Blood Urea Nitrogen 9 mg/dL (9-20); Carbon Dioxide 21 mmol/L (22-30); Chloride 112 mmol/L (98-107); Glucose 107 mg/dL (74-99); Lipase 280 U/L (23-300); Non-African American GFR(CKD) >90 (>60 ml/min/1.73 sqM); Potassium 3.4 mmol/L (3.5-5.1); Sodium 146 mmol/L (137-145); Total Bilirubin 2.3 mg/dL (0.2-1.3); Total Protein 7.8 g/dL (6.3-8.2)
--- NOTE | 2024-06-11 23:47 | CT ---
EXAM: CT Abdomen and Pelvis Without Intravenous Contrast CLINICAL HISTORY: Abdominal pain hematuria TECHNIQUE: Axial computed tomography images of the abdomen and pelvis without intravenous contrast. CTDI is 9.2 mGy and DLP is 592.8 mGy-cm. This CT exam was performed using one or more of the following dose reduction techniques: automated exposure control, adjustment of the mA and/or kV according to patient size, and/or use of iterative reconstruction technique. COMPARISON: CT abdomen and pelvis with contrast dated 11/29/2023 FINDINGS: Lung bases: Curvilinear ground-glass opacities involving the left anterobasal segments. ABDOMEN: Liver: Heterogeneous appearance to the liver with markedly lobular contours, similar to progressive from the previous examination. Gallbladder and bile ducts: Unremarkable. No calcified stones. No ductal dilation. Pancreas: Unremarkable. No ductal dilation. Spleen: Unremarkable. No splenomegaly. Adrenals: Unremarkable. No mass. Kidneys and ureters: Scattered subcentimeter nonobstructive nephrolithiasis noted bilaterally. No hydronephrosis or definite ureteral stones. Stomach and bowel: No evidence for focal high-grade bowel obstruction. There are no postoperative changes involving small bowel loops in the left lateral pelvis. Evaluation of bowel mucosa is limited without contrast. Mild stool burden. PELVIS: Appendix: The appendix is not clearly delineated. No secondary findings to suggest acute appendicitis. Bladder: The bladder is minimally fluid distended. No bladder wall thickening or bladder stones. Reproductive: Unremarkable as visualized. ABDOMEN and PELVIS: Intraperitoneal space: Unremarkable. No free air. No significant fluid collection. Bones/joints: No acute osseous abnormality. No dislocation. Soft tissues: Unremarkable. Vasculature: Prominent gastric varices noted about the cardia of the stomach are grossly similar to the prior examination, accounting for limitations with noncontrast status. No abdominal aortic aneurysm. Lymph nodes: Unremarkable. No enlarged lymph nodes. IMPRESSION: 1. Heterogeneous appearance to the liver with markedly lobular contours, similar to progressive from the previous examination. Findings are consistent with cirrhosis. 2. Scattered subcentimeter nonobstructive nephrolithiasis noted bilaterally. No hydronephrosis or definite ureteral stones. No bladder calcifications. 3. No evidence for focal high-grade bowel obstruction. There are no postoperative changes involving small bowel loops in the left lateral pelvis. Evaluation of bowel mucosa is limited without contrast. Mild stool burden. No free intraperitoneal fluid or pneumoperitoneum. 4. Curvilinear ground-glass opacities involving the left anterobasal segments. The appearance is suspicious for left lower lobe pneumonia, to include atypical bacterial and viral etiologies.
[2024-06-12 01:01] VITALS: BP 160/84; PULSE 67; TEMP 97.4
== END 2024-06-12 01:00 | disposition home or self-care (01) ==
LOC: EC 22:04
DX: G89.29 Other chronic pain (principal); K70.9 Alcoholic liver disease, unspecified; E87.0 Hyperosmolality and hypernatremia; F17.200 Nicotine dependence, unspecified, uncomplicated
CPT/HCPCS: 36415; 80053; 82150; 83605; 83690; 85025; 85610; 85730; 81001; 74176; 99284; 96374; 96375; 96361; J2405; J1171

== ENCOUNTER 2024-07-11 13:53 | Inpatient (IN) | payer OTHER ==
--- NOTE | 2024-07-11 14:02 | ED ---
Nausea/Vomiting/Diarrhea HPI - General Stated complaint: N/V Time Seen by Provider: 07/11/24 13:58 Source: RN notes reviewed, old records reviewed Mode of arrival: ambulatory Limitations: no limitations - History of Present Illness Initial comments: This is a 49-year-old male to the ER for evaluation. Patient is known to this emergency department for visits in regards to alcohol intoxication nausea vomiting malnutrition. Patient presents today for abdominal pain weakness, s tates last drink 3 days ago. Patient states abdominal pain is worsening with increasing weakness shakes can eat or drink with persistent nausea and vomiting MD complaint: nausea, vomiting, abdominal pain -: days(s) Description of Vomiting: food contents, watery, bilious Associated Abdominal Pain: Yes Location: periumbilical Radiation: none Severity: moderate Severity scale (1-10): 6 Consistency: constant Improves with: none Worsens with: none Context: alcohol abuse Associated Symptoms: myalgias, loss of appetite, nausea/vomiting, weakness - Related Data Home Medications Medication Instructions Recorded Confirmed Lactulose 20 gm PO TID 11/10/23 07/11/24 Multivit-Mins/Iron/Folic/Lycop 1 tab PO DAILY 11/29/23 07/11/24 [Centrum Men's Tablet] Fexofenadine HCl [Svitlana Allergy] 180 mg PO DAILY 06/21/24 07/11/24 Magnesium Oxide [Mag-Ox] 400 mg PO DAILY 06/21/24 07/11/24 Potassium Gluconate 99 mg PO DAILY 06/21/24 07/11/24 diphenhydrAMINE HCL [Benadryl] 25 mg PO TID PRN 06/21/24 07/11/24 Previous Rx's Medication Instructions Recorded Nicotine 21Mg/24Hr Patch [Habitrol] 1 patch TRANSDERM DAILY patch 07/13/24 Folic Acid 1 mg PO DAILY tab 07/14/24 Pantoprazole Sodium [Protonix] 40 mg PO BID #60 tab 07/14/24 Thiamine [Vitamin B-1] 100 mg PO DAILY tab 07/14/24 Lactulose [Cephulac] 30 gm PO QID ml 07/15/24 HYDROcodone/APAP 10-325MG [Kent 1 tab PO TID PRN 30 Days #90 tab 07/17/24 10-325] HYDROcodone/APAP 10-325MG [Kent 1 tab PO TID PRN 30 Days #90 tab 07/17/24 10325] Allergies Allergy/AdvReac Type Severity Reaction Status Date / Time No Known Allergies Allergy Verified 07/11/24 16:43 Review of Systems ROS Statement: Those systems with pertinent positive or pertinent negative responses have been documented in the HPI. ROS Other: All systems not noted in ROS Statement are negative. Past Medical History Past Medical History: Asthma, Cancer, GI Bleed, Liver Disease, Pneumonia, Renal Disease, Skin Disorder Additional Past Medical History / Comment(s): Liver cirrhosis, portal HTN, abdominal ascities, pancreatitis, upper and lower GI bleeds, bleeding ulcers, esophageal varicies-banded, thrombocytopemia, chronic anemia, gallstones, nephrolithiasis/hematuria, L inguinal hernia, psoriasis; paracentesis, umbilical hernia, left foot injury, pancreatic CA History of Any Multi-Drug Resistant Organisms: MRSA Date of last positivie culture/infection: 12/09/13 MDRO Source:: Right first finger Past Surgical History: Appendectomy, Cholecystectomy, Hernia Repair, Orthopedic Surgery Additional Past Surgical History / Comment(s): EGDs/varicies banding/colonos copy, paracentesis, right hand tendon repair, right knee arthroscopy, cystoscopy for kidney stone removal, right hand ring finger surgery. surgery for umbilical hernia, Hernia repair on 10/13 at [facility]. Past Anesthesia/Blood Transfusion Reactions: Previous Problems w/ Anesthesia, Motion Sickness Additional Past Anesthesia/Blood Transfusion Reaction / Comment(s): Woke up during scope procedure. Past Psychological History: Anxiety, Bipolar, Depression, PTSD Smoking Status: Current every day smoker - Past Family History Mother Family Medical History: No Reported History Additional Family Medical History / Comment(s): Mother has health issues from a MVA-pt did not elaborate. Father Family Medical History: Vascular Disorder Additional Family Medical History / Comment(s): Prostate issues grandpa. Brain aneurysm father. General Exam General appearance: alert, anxious, in distress Head exam: Present: atraumatic, normocephalic, normal inspection Eye exam: Present: normal appearance, PERRL, EOMI. Absent: scleral icterus, conjunctival injection, periorbital swelling ENT exam: Present: normal exam, mucous membranes moist Neck exam: Present: normal inspection. Absent: tenderness, meningismus, lymphadenopathy Respiratory exam: Present: normal lung sounds bilaterally. Absent: respiratory distress, wheezes, rales, rhonchi, stridor Cardiovascular Exam: Present: regular rate, normal rhythm, normal heart sounds. Absent: systolic murmur, diastolic murmur, rubs, gallop, clicks GI/Abdominal exam: Present: soft, distended, tenderness, normal bowel sounds. Absent: guarding, rebound, rigid Extremities exam: Present: normal inspection, full ROM, normal capillary refill. Absent: tenderness, pedal edema, joint swelling, calf tenderness Back exam: Present: normal inspection Neurological exam: Present: alert, oriented X3, CN II-XII intact Psychiatric exam: Present: normal affect, normal mood Skin exam: Present: warm, dry, intact, normal color. Absent: rash Course Vital Signs 07/11/24 07/11/24 07/11/24 14:00 18:44 19:55 Temperature 98.1 F Pulse Rate 83 77 90 Pulse Rate [ Global Chief Experience Officer ] Respiratory 18 20 18 Rate Blood Pressure 149/78 161/81 160/80 Blood Pressure [Supine] O2 Sat by Pulse 95 98 98 Oximetry 07/11/24 07/12/24 07/12/24 21:00 04:31 07:58 Temperature Pulse Rate 98 Pulse Rate [ 74 77 Global Chief Experience Officer ] Respiratory 18 9 L 16 Rate Blood Pressure 145/82 Blood Pressure 169/91 177/87 [Supine] O2 Sat by Pulse 98 99 99 Oximetry 07/12/24 07/12/24 07/12/24 14:00 21:22 21:45 Temperature 98.1 F Pulse Rate Pulse Rate [ 70 88 92 Global Chief Experience Officer ] Respiratory 20 20 18 Rate Blood Pressure Blood Pressure 151/87 159/89 156/82 [Supine] O2 Sat by Pulse 99 96 95 Oximetry - Reevaluation(s) Reevaluation #1: 07/11/24 14:53 Medical records reviewed Multiple ER visits prior for alcohol intoxication Multiple inpatient admissions for electrolyte abnormalities Reevaluation #2: 07/11/24 17:20 Patient symptoms unchanged here in the emergency department Patient has improved abdominal pain and pain control Patient awake and alert does not appear to be actively going through DTs Reevaluation #3: 07/11/24 17:21 Patient informed of results questions answered Reevaluation #4: Was pt. sent in by a medical professional or institution (, PA, HYDROMETER CALIBRATOR, urgent care, hospital, or [place] health [place] facility...) When possible be specific @ -no Did you speak to anyone other than the patient for history (EMS, parent, family, police, friend...)? What history was obtained from this source @ -no Did you review nursing and triage notes (agree or disagree)? Why? @ -agree Are old charts reviewed (outside hosp., previous admission, EMS record, old EKG, old radiological studies, urgent care reports/EKG's, [place] health care facility records)? Report findings @ -yes Differential Diagnosis (chest pain, altered mental status, abdominal pain women, abdominal pain men, vaginal bleeding, weakness, fever, dyspnea, syncope, headache, dizziness, GI bleed, back pain, seizure, CVA, palpatations, mental health, musculoskeletal)? @ -prior EKG interpreted by me (3pts min.). @ -yes X-rays interpreted by me (1pt min.). @ -no CT interpreted by me (1pt min.). @ -yes negative for acute disease U/S interpreted by me (1pt. min.). @ -no What testing was considered but not performed or refused? (CT, X-rays, U/S, lab s)? Why? @ -none What meds were considered but not given or refused? Why? @ -none Did you discuss the management of the patient with other professionals (professionals i.e. , PA, HYDROMETER CALIBRATOR, lab, RT, psych nurse, social welfare research worker, fur puller, teacher, juvenile corrections officer, case supervisor)? Give summary @ -no Was smoking cessation discussed for >3mins.? @ -no Was critical care preformed (if so, how long)? @ -yes31 Were there social determinants of health that impacted care today? How? (Homelessness, low income, unemployed, alcoholism, drug addiction, transportation, low edu. Level, literacy, decrease access to med. care, halfway, rehab)? @ -none Was there de-escalation of care discussed even if they declined (Discuss DNR or withdrawal of care, Hospice)? DNR status @ -no What co-morbidities impacted this encounter? (DM, HTN, Smoking, COPD, CAD, Cancer, CVA, ARF, Chemo, Hep., AIDS, mental health diagnosis, sleep apnea, morbid obesity)? @ -none Was patient admitted / discharged? Hospital course, mention meds given and route, prescriptions, significant lab abnormalities, going to OR and other pertinent info. @ - 39 male to ER presenting for abdominal pain unable to eat and drink at home last time he ate anything was 2 days ago. Patient having active nausea and vomiting here in the emergency room multiple electrolyte abnormalities and derangement will admit for electrolyte replacement and monitoring of acute withdrawal Admitted Undiagnosed new problem with uncertain prognosis? @ -no Drug Therapy requiring intensive monitoring for toxicity (Heparin, Nitro, Insulin, Cardizem)? @ -no Were any procedures done? @ -no Diagnosis/symptom? @ -nausea vomiting and alcohol withdrawal Acute, or Chronic, or Acute on Chronic? @ -Acute Uncomplicated (without systemic symptoms) or Complicated (systemic symptoms)? @ -Complicated Side effects of treatment? @ -no Exacerbation, Progression, or Severe Exacerbation? @ -exacerbation Poses a threat to life or bodily function? How? (Chest pain, [place], [place], pneumonia, PE, COPD, DKA, ARF, appy, cholecystitis, CVA, Diverticulitis, Homicidal, Suicidal, threat to staff... and all critical care pts) @ -yes acute alcohol withdrawal and electrolyte derangement Reevaluation #5: Differential Abdominal Pain Men: Appendicitis, cholecystitis, diverticulosis, ischemic bowel, pancreatitis, hepatitis, UTI, gastroenteritis, AAA, incarcerated hernia, bowel obstruction, constipation, inflammatory bowel, hepatitis, peptic ulcer disease, splenic infarction, perforated viscus, testicular torsion, this is not meant to be an all-inclusive list - Consultations Consultation #1: Spoke with Dr. Meza who agrees to admission Medical Decision Making - Medical Decision Making 39 male to ER presenting for abdominal pain unable to eat and drink at home last time he ate anything was 2 days ago. Patient having active nausea and vomiting here in the emergency room multiple electrolyte abnormalities and derangement will admit for electrolyte replacement and monitoring of acute withdrawal - Lab Data Result diagrams: 07/14/24 09:54 07/14/24 19:14 Lab Results 07/11/24 07/11/24 07/11/24 Range/Units 14:20 14:20 14:20 WBC 5.5 (3.8-10.6) k/uL RBC 3.76 L (4.30-5.90) m/uL Hgb 12.8 L (13.0-17.5) gm/dL Hct 37.9 L (39.0-53.0) % MCV 100.7 H (80.0-100.0) fL MCH 34.1 (25.0-35.0) pg MCHC 33.8 (31.0-37.0) g/dL RDW 14.4 (11.5-15.5) % Plt Count 50 L (150-450) k/uL MPV 9.7 Neutrophils % 77 % Lymphocytes % 11 % Monocytes % 9 % Eosinophils % 1 % Basophils % 1 % Neutrophils # 4.2 (1.3-7.7) k/uL Lymphocytes # 0.6 L (1.0-4.8) k/uL Monocytes # 0.5 (0-1.0) k/uL Eosinophils # 0.1 (0-0.7) k/uL Basophils # 0.0 (0-0.2) k/uL Macrocytosis Slight Sodium (137-145) mmol/L Potassium (3.5-5.1) mmol/L Chloride (98-107) mmol/L Carbon Dioxide (22-30) mmol/L Anion Gap mmol/L BUN (9-20) mg/dL Creatinine (0.66-1.25) mg/dL Est GFR (CKD-EPI)AfAm (>60 ml/min/1.73 sqM) Est GFR (CKD-EPI)NonAf (>60 ml/min/1.73 sqM) Glucose (74-99) mg/dL Lactic Ac Sepsis Rflx Plasma Lactic Acid Balaji 2.3 H* (0.7-2.0) mmol/L Calcium (8.4-10.2) mg/dL Phosphorus (2.5-4.5) mg/dL Magnesium (1.6-2.3) mg/dL Total Bilirubin (0.2-1.3) mg/dL AST (17-59) U/L ALT (4-49) U/L Alkaline Phosphatase (38-126) U/L Troponin I <0.012 (0.000-0.034) ng/mL Total Protein (6.3-8.2) g/dL Albumin (3.5-5.0) g/dL Lipase (23-300) U/L Serum Alcohol mg/dL 07/11/24 07/11/24 07/11/24 Range/Units 14:20 16:01 18:19 WBC (3.8-10.6) k/uL RBC (4.30-5.90) m/uL Hgb (13.0-17.5) gm/dL Hct (39.0-53.0) % MCV (80.0-100.0) fL MCH (25.0-35.0) pg MCHC (31.0-37.0) g/dL RDW (11.5-15.5) % Plt Count (150-450) k/uL MPV Neutrophils % % Lymphocytes % % Monocytes % % Eosinophils % % Basophils % % Neutrophils # (1.3-7.7) k/uL Lymphocytes # (1.0-4.8) k/uL Monocytes # (0-1.0) k/uL Eosinophils # (0-0.7) k/uL Basophils # (0-0.2) k/uL Macrocytosis Sodium 134 L (137-145) mmol/L Potassium 2.7 L* (3.5-5.1) mmol/L Chloride 97 L (98-107) mmol/L Carbon Dioxide 27 (22-30) mmol/L Anion Gap 10 mmol/L BUN 7 L (9-20) mg/dL Creatinine 0.51 L (0.66-1.25) mg/dL Est GFR (CKD-EPI)AfAm >90 (>60 ml/min/1.73 sqM) Est GFR (CKD-EPI)NonAf >90 (>60 ml/min/1.73 sqM) Glucose 147 H (74-99) mg/dL Lactic Ac Sepsis Rflx Y Plasma Lactic Acid Balaji 1.1 (0.7-2.0) mmol/L Calcium 9.0 (8.4-10.2) mg/dL Phosphorus 0.8 L* (2.5-4.5) mg/dL Magnesium 0.9 L* (1.6-2.3) mg/dL Total Bilirubin 3.0 H (0.2-1.3) mg/dL AST 193 H (17-59) U/L ALT 59 H (4-49) U/L Alkaline Phosphatase 172 H (38-126) U/L Troponin I (0.000-0.034) ng/mL Total Protein 6.8 (6.3-8.2) g/dL Albumin 3.6 (3.5-5.0) g/dL Lipase 202 (23-300) U/L Serum Alcohol <10 mg/dL - EKG Data -: EKG Interpreted by Me (Abdomen pelvis is negative for acute disease) - Radiology Data Radiology results: report reviewed (CT abdomen pelvis is negative for acute disease), image reviewed Critical Care Time Critical Care Time: Yes Total Critical Care Time: 31 Disposition Clinical Impression: Intractable abdominal pain, ETOH abuse, Ascites, Hypomagnesemia, Nausea & vomiting, Alcohol withdrawal, Hypokalemia, Acute on chronic pancreatitis Disposition: ADMITTED IP TO THIS [facility] Condition: Stable Is patient prescribed a controlled substance at d/c from ED?: No Time of Disposition: 17:00
[2024-07-11 14:37] LABS: Basophils % (A) 1 %; Eosinophils # (A) 0.1 k/uL (0-0.7); Eosinophils % (A) 1 %; HCT 37.9 % (39.0-53.0); HGB 12.8 gm/dL (13.0-17.5); Lymphocytes # (A) 0.6 k/uL (1.0-4.8); Lymphocytes % (A) 11 %; MCH 34.1 pg (25.0-35.0); MCHC 33.8 g/dL (31.0-37.0); MCV 100.7 fL (80.0-100.0); Macrocytosis Slight; Mean Platelet Volume 9.7; Monocytes # (A) 0.5 k/uL (0-1.0); Monocytes % (A) 9 %; Neutrophils # (A) 4.2 k/uL (1.3-7.7); Neutrophils % (A) 77 %; RBC 3.76 m/uL (4.30-5.90); RDW 14.4 % (11.5-15.5); WBC 5.5 k/uL (3.8-10.6)
--- NOTE | 2024-07-11 14:59 | CT ---
EXAMINATION TYPE: CT abdomen pelvis wo con DATE OF EXAM: 07/11/2024 COMPARISON: 06/11/2024 CLINICAL INDICATION: Male, 49 years old with history of pain; PHH, Nausea vomiting TECHNIQUE: CT scan of the abdomen and pelvis is performed without oral or IV contrast. CT DLP: 379.[address] CTDI: mGy Automated exposure control for dose reduction was used. FINDINGS: Within the limitations of a non-contrast study, the following observations are made. The lungs are clear. There is surgical absence of the gallbladder. There is no biliary ductal dilatation. The liver is small in size and markedly lobulated in contour. There is heterogeneous steatosis. The f indings are consistent with marked cirrhosis. There is no splenomegaly. The pancreas and adrenal glan ds are unremarkable. There are stable bilateral nonobstructing renal calcifications largest on the right is 6 mm and the l argest on the left is 5 to 6 mm. The caliber of the abdominal aorta is normal and there is no retroperitoneal adenopathy or hemorrhage . The bowel loops are normal in caliber is no evidence of obstruction. No inflammatory changes are iden tified in the mesentery and there is no free intraperitoneal air or fluid. There are anastomotic sutu res in the transverse colon There is no pelvic mass, free fluid, abscess or adenopathy. The osseous structures and soft tissues are unremarkable. IMPRESSION: 1 findings suggestive of marked cirrhosis of the liver. 2. Stable nonobstructing bilateral renal calcifications as described above. 3. No acute changes within the abdomen or pelvis. [facility], , 07/11/2024 2:57 PM
[2024-07-11] MEDS: SODIUM CHLORIDE 0.9% 1,000 ML IV STA ×3 (15:02→17:52)
[2024-07-11] MEDS: SODIUM CHLORIDE 0.9% 500 ML 500 ML IV STA (15:04)
[2024-07-11] MEDS: LORazepam 2 MG/ML INJ IV STA (15:05)
[2024-07-11] MEDS: MORPHINE SULFATE 4 MG/ML SYRINGE IVP STA (15:05)
[2024-07-11] MEDS: ONDANSETRON 4 MG/2 ML VIAL IVP STA (15:05)
[2024-07-11 15:11] LABS: ALT 59 U/L (4-49); AST 193 U/L (17-59); African American GFR (CKD) >90 (>60 ml/min/1.73 sqM); Albumin 3.6 g/dL (3.5-5.0); Alcohol <10 mg/dL; Alkaline Phosphatase 172 U/L (38-126); Anion Gap 10 mmol/L; Blood Urea Nitrogen 7 mg/dL (9-20); Carbon Dioxide 27 mmol/L (22-30); Chloride 97 mmol/L (98-107); Glucose 147 mg/dL (74-99); Lipase 202 U/L (23-300); Non-African American GFR(CKD) >90 (>60 ml/min/1.73 sqM); Sodium 134 mmol/L (137-145); Total Protein 6.8 g/dL (6.3-8.2)
[2024-07-11 15:22] LABS: Platelet Count 50 k/uL (150-450)
[2024-07-11 16:01] LABS: Magnesium 0.9 mg/dL (1.6-2.3); Phosphorus 0.8 mg/dL (2.5-4.5); Potassium 2.7 mmol/L (3.5-5.1)
[2024-07-11] MEDS ORDERED: LORazepam 0.5 MG TAB PO PRN ×2 (17:16→20:15)
[2024-07-11] MEDS ORDERED: LORazepam 2 MG/ML INJ IV PRN ×3 (17:16)
[2024-07-11] MEDS ORDERED: LORazepam 1 MG TAB PO PRN ×3 (17:16)
[2024-07-11] MEDS: MAGNESIUM OXIDE 400 MG TAB PO STA ×2 (18:17)
[2024-07-11] MEDS: POTASSIUM BICARBONATE/CIT AC 20 MEQ TABLET.EFF PO ONE ×2 (18:18)
[2024-07-11] MEDS: MAGNESIUM SULFATE-D5W PMX 1 GM in DEXTROSE/WATER 1 100ML.BAG IVPB SCH (18:21)
[2024-07-11] MEDS: POTASSIUM CHLORIDE 20 MEQ in WATER FOR INJECTION 1 100ML.BAG IVPB STA (18:32)
[2024-07-11] MEDS: DEXTROSE 5%-0.45% NACL 1,000 ML IV SCH (18:33)
[2024-07-11] MEDS ORDERED: NALOXONE 0.4 MG/ML 1 ML VIAL IV PRN (20:15)
[2024-07-11] MEDS: MORPHINE SULFATE 4 MG/ML SYRINGE IV PRN (20:57)
[2024-07-11] MEDS: ONDANSETRON 4 MG/2 ML VIAL IVP PRN (20:58)
[2024-07-12] MEDS: diphenhydrAMINE 25 MG CAP PO PRN (00:51)
[2024-07-12 08:55] LABS: Magnesium 1.5 mg/dL (1.5-2.4)
[2024-07-12] MEDS: MULTIVITAMINS, THERA 1 EACH TAB PO SCH (09:12)
[2024-07-12] MEDS: MAGNESIUM OXIDE 400 MG TAB PO SCH (09:12)
[2024-07-12] MEDS: FOLIC ACID 1 MG TAB PO SCH (09:12)
[2024-07-12 10:13] LABS: ALT 57 U/L (10-49); AST 170 U/L (14-35); Albumin 3.4 g/dL (3.8-4.9); Albumin/Globulin Ratio 1.26 Ratio (1.60-3.17); Alkaline Phosphatase 156 U/L (41-126); Blood Urea Nitrogen 5.4 mg/dL (9.0-27.0); Calcium 7.8 mg/dL (8.7-10.3); Carbon Dioxide 25.6 mmol/L (21.6-31.8); Chloride 100 mmol/L (96-109); Globulin 2.7 g/dL (1.6-3.3); Glucose 104 mg/dL (70-110); Phosphorus 0.5 mg/dL (2.4-5.1); Sodium 136 mmol/L (135-145); Total Bilirubin 2.9 mg/dL (0.3-1.2); Total Protein 6.1 g/dL (6.2-8.2)
[2024-07-12] MEDS: POTASSIUM PHOSPHATE 10 MMOL in SODIUM CHLORIDE 0.9% 250 ML IV SCH (11:18)
[2024-07-12] MEDS: MAGNESIUM SULFATE-D5W PMX 1 GM in DEXTROSE/WATER 1 100ML.BAG IVPB SCH (11:19)
[2024-07-12] MEDS: MAGNESIUM OXIDE 400 MG TAB PO STA (11:20)
[2024-07-12] MEDS: POTASSIUM BICARBONATE/CIT AC 20 MEQ TABLET.EFF PO ONE (11:21)
[2024-07-12] MEDS: NICOTINE 21MG/24HR PATCH TRANSDERM SCH (11:51)
[2024-07-12] MEDS: PANTOPRAZOLE 40 MG/10 ML VIAL IVP SCH (11:51)
[2024-07-12] MEDS ORDERED: KETOROLAC 15 MG/ML 1 ML VIAL IVP PRN (12:00)
[2024-07-12 13:05] LABS: HCT 35.3 % (39.6-50.0); Immature Platelet Fraction 11.5 % (1.1-6.1); MCH 34.5 pg (27.0-32.0); MCV 101.4 FL (80.0-97.0); Mean Platelet Volume 13.5 FL (9.5-12.2); NRBC Per 100 WBC 0 X 10*3/uL (0.00-0.01); Platelet Count 37 X 10*3/uL (140-440); RBC 3.48 X 10*6/uL (4.40-5.60); RDW 14.6 % (11.5-14.5); WBC 4.61 X 10*3/uL (4.50-10.00)
[2024-07-12 13:06] LABS: Basophils # (A) 0.07 X 10*3/uL (0.00-0.10); Basophils % (A) 1.5 %; Eosinophils # (A) 0.09 X 10*3/uL (0.04-0.35); Lymphocytes # (A) 0.74 X 10*3/uL (0.90-5.00); Lymphocytes % (A) 16.1 %; Monocytes # (A) 0.82 X 10*3/uL (0.20-1.00); Monocytes % (A) 17.8 %; Neutrophils # (A) 2.85 X 10*3/uL (1.80-7.70); Neutrophils % (A) 61.7 %
[2024-07-12] MEDS: THIAMINE 100 MG TAB PO SCH (13:11)
[2024-07-12 13:30] LABS: Magnesium 1.8 mg/dL (1.6-2.3); Phosphorus 1.6 mg/dL (2.5-4.5)
--- NOTE | 2024-07-12 15:39 | P.HPIM ---
History of Present Illness H&P Date: 07/12/24 Chief Complaint: Nausea and vomiting Is a 49-year-old male with past medical history significant for recent celiac plexus block 06/08/2024 ,polysubstance abuse including alcohol , cocaine heroin marijuana, pancreatitis, chronic alcoholic hepatitis ,ascites with multiple paracentesis, esophageal varices with multiple banding's, chronic anemia, ventral hernia repair, bipolar, depression, anxiety, multiple other medical issues presented to the ER with complaints of nausea and vomiting, diffuse abdominal pain. States he has not been compliant with taking his lactulose over the last week as he cannot keep anything down.Ammonia level pending.Reports his last drink was the evening before coming into the ER. Afebrile, normal WBC, lactic acid 2.3, resolved with IV fluid hydration currently down to 1.1, hemoglobin 12, platelets 37. Sodium 136. Potassium 2.7, 3, bicarb 25.6, BUN 5.4, creatinine 0.6, glucose 104, phosphorus 0.5, magnesium 0.9, 1.5, T. bili 2.9, AST 170, ALT 57, alk phos 156, total protein 6.1, lipase 202. Serum alcohol less than 10 receiving supplements for potassium, Phos, magnesium. Review of Systems ROS Statement: Those systems with pertinent positive or pertinent negative responses have been documented in the HPI. ROS Other: All systems not noted in ROS Statement are negative. Past Medical History Past Medical History: Asthma, Cancer, GI Bleed, Liver Disease, Pneumonia, Renal Disease, Skin Disorder Additional Past Medical History / Comment(s): Liver cirrhosis, portal HTN, abdominal ascities, pancreatitis, upper and lower GI bleeds, bleeding ulcers, esophageal varicies-banded, thrombocytopemia, chronic anemia, gallstones, nephrolithiasis/hematuria, L inguinal hernia, psoriasis; paracentesis, umbilical hernia, left foot injury, pancreatic CA History of Any Multi-Drug Resistant Organisms: MRSA Date of last positivie culture/infection: 12/09/13 MDRO Source:: Right first finger Past Surgical History: Appendectomy, Cholecystectomy, Hernia Repair, Orthopedic Surgery Additional Past Surgical History / Comment(s): EGDs/varicies banding/colonoscopy, paracentesis, right hand tendon repair, right knee arthroscopy, cystoscopy for kidney stone removal, right hand ring finger romo rgery. surgery for umbilical hernia, Hernia repair on 10/13 at [facility]. Past Anesthesia/Blood Transfusion Reactions: Previous Problems w/ Anesthesia, Motion Sickness Additional Past Anesthesia/Blood Transfusion Reaction / Comment(s): Woke up during scope procedure. Past Psychological History: Anxiety, Bipolar, Depression, PTSD Smoking Status: Current every day smoker - Past Family History Mother Family Medical History: No Reported History Additional Family Medical History / Comment(s): Mother has health issues from a MVA-pt did not elaborate. Father Family Medical History: Vascular Disorder Additional Family Medical History / Comment(s): Prostate issues grandpa. Brain aneurysm father. Medications and Allergies Home Medications Medication Instructions Recorded Confirmed Type Lactulose 20 gm PO TID 11/10/23 07/11/24 History Multivit-Mins/Iron/Folic/Lycop 1 tab PO DAILY 11/29/23 07/11/24 History [Centrum Men's Tablet] Fexofenadine HCl [Svitlana Allergy] 180 mg PO DAILY 06/21/24 07/11/24 History Magnesium Oxide [Mag-Ox] 400 mg PO DAILY 06/21/24 07/11/24 History Potassium Gluconate 99 mg PO DAILY 06/21/24 07/11/24 History diphenhydrAMINE HCL [Benadryl 25 mg PO TID PRN 06/21/24 07/11/24 History Allergy] Allergies Allergy/AdvReac Type Severity Reaction Status Date / Time No Known Allergies Allergy Verified 07/11/24 16:43 Physical Exam Vitals: Vital Signs Pulse Pulse Resp BP BP Pulse Ox 07/12/24 07:58 77 16 177/87 99 07/12/24 04:31 74 9 L 169/91 99 07/11/24 21:00 98 18 145/82 98 07/11/24 19:55 90 18 160/80 98 07/11/24 18:44 77 20 161/81 98 Intake and Output 07/12/24 07/12/24 07/12/24 06:59 14:59 22:59 Output Total 800 Balance -800 Output: Urine 800 Other: Voiding Method Toilet Urinal General: [Patient awake, alert and oriented times 2, sitting up in bed. no acute distress. HEENT: [PERRL. EOMI. sclera nonicteric .no pharyngeal erythema or exudate.] Neck: Supple, no JVD Cardiac: [Heart regular in rate and rhythm. No S3. No S4. No clicks, rubs. No murmur.] Lungs: Unlabored, equal air entry, essentially clear with bilateral bases diminished] Abdomen: Soft, nondistended, minimal diffuse tenderness, no guarding, no rigidity, positive bowel sounds Extremes: [No edema no cyanosis no claudication normal pulses] Skin: [No jaundice, rash. warm and dry. ] Neurologic: CN II - XII grossly intact.] Results CBC & Chem 7: 07/12/24 03:52 07/12/24 18:16 Labs: Abnormal Lab Results - Last 24 Hours (Table) 07/11/24 07/11/24 07/11/24 Range/Units 14:20 14:20 14:20 RBC (4.40-5.60) X 10*6/uL Hgb (13.0-17.0) g/dL Hct (39.6-50.0) % MCV (80.0-97.0) FL MCH (27.0-32.0) pg RDW (11.5-14.5) % Plt Count 50 L (150-450) k/uL MPV (9.5-12.2) FL Lymphocytes # 0.6 L (1.0-4.8) k/uL Immature Plt Fraction (1.1-6.1) % Sodium 134 L (137-145) mmol/L Potassium 2.7 L* (3.5-5.1) mmol/L Chloride 97 L (98-107) mmol/L BUN 7 L (9-20) mg/dL Creatinine 0.51 L (0.66-1.25) mg/dL BUN/Creatinine Ratio (12.00-20.00) Ratio Glucose 147 H (74-99) mg/dL Plasma Lactic Acid Balaji 2.3 H* (0.7-2.0) mmol/L Calcium (8.7-10.3) mg/dL Phosphorus 0.8 L* (2.5-4.5) mg/dL Magnesium 0.9 L* (1.6-2.3) mg/dL Total Bilirubin 3.0 H (0.2-1.3) mg/dL AST 193 H (17-59) U/L ALT 59 H (4-49) U/L Alkaline Phosphatase 172 H (38-126) U/L Ammonia (<30) umol/L Total Protein (6.2-8.2) g/dL Albumin (3.8-4.9) g/dL Albumin/Globulin Ratio (1.60-3.17) Ratio 07/12/24 07/12/24 07/12/24 Range/Units 03:52 03:52 11:32 RBC 3.48 L (4.40-5.60) X 10*6/uL Hgb 12.0 L (13.0-17.0) g/dL Hct 35.3 L (39.6-50.0) % MCV 101.4 H (80.0-97.0) FL MCH 34.5 H (27.0-32.0) pg RDW 14.6 H (11.5-14.5) % Plt Count 37 A* (150-450) k/uL MPV 13.5 H (9.5-12.2) FL Lymphocytes # 0.74 L (1.0-4.8) k/uL Immature Plt Fraction 11.5 H (1.1-6.1) % Sodium (137-145) mmol/L Potassium 3.0 L (3.5-5.1) mmol/L Chloride (98-107) mmol/L BUN 5.4 L (9-20) mg/dL Creatinine (0.66-1.25) mg/dL BUN/Creatinine Ratio 9.00 L (12.00-20.00) Ratio Glucose (74-99) mg/dL Plasma Lactic Acid Balaji (0.7-2.0) mmol/L Calcium 7.8 L (8.7-10.3) mg/dL Phosphorus 0.5 A* (2.5-4.5) mg/dL Magnesium (1.6-2.3) mg/dL Total Bilirubin 2.9 H (0.2-1.3) mg/dL AST 170 H (17-59) U/L ALT 57 H (4-49) U/L Alkaline Phosphatase 156 H (38-126) U/L Ammonia 73 H (<30) umol/L Total Protein 6.1 L (6.2-8.2) g/dL Albumin 3.4 L (3.8-4.9) g/dL Albumin/Globulin Ratio 1.26 L (1.60-3.17) Ratio 07/12/24 Range/Units 13:04 RBC (4.40-5.60) X 10*6/uL Hgb (13.0-17.0) g/dL Hct (39.6-50.0) % MCV (80.0-97.0) FL MCH (27.0-32.0) pg RDW (11.5-14.5) % Plt Count (150-450) k/uL MPV (9.5-12.2) FL Lymphocytes # (1.0-4.8) k/uL Immature Plt Fraction (1.1-6.1) % Sodium (137-145) mmol/L Potassium 3.0 L (3.5-5.1) mmol/L Chloride (98-107) mmol/L BUN (9-20) mg/dL Creatinine (0.66-1.25) mg/dL BUN/Creatinine Ratio (12.00-20.00) Ratio Glucose (74-99) mg/dL Plasma Lactic Acid Balaji (0.7-2.0) mmol/L Calcium (8.7-10.3) mg/dL Phosphorus 1.6 L (2.5-4.5) mg/dL Magnesium (1.6-2.3) mg/dL Total Bilirubin (0.2-1.3) mg/dL AST (17-59) U/L ALT (4-49) U/L Alkaline Phosphatase (38-126) U/L Ammonia (<30) umol/L Total Protein (6.2-8.2) g/dL Albumin (3.8-4.9) g/dL Albumin/Globulin Ratio (1.60-3.17) Ratio Assessment and Plan Assessment: Abdominal pain, chronic, recent celiac plexus block with pain management services on 06/08/2024 Acute thrombocytopenia Hypophosphatemia Hypokalemia Hypomagnesemia Lactic acidosis, resolved with IV fluid hydration Chronic pancreatitis History of esophageal varices with multiple bandings Elevated LFTs in a patient with history of alcoholic cirrhosis of liver, chronic alcoholic hepatitis Portal hypertension History of ascites with multiple paracentesis Alcohol dependence History of polysubstance abuse including cocaine, heroin, marijuana Noncompliance Chronic alcoholic hepatitis Chronic nicotine dependence History of nephrolithiasis, chronic anemia Plan: Continue on current medication resume ,monitoring and symptomatic treatment. CIWA protocol. Maintain lactulose, ammonia level ordered. IV fluid hydration. Potassium, magnesium, phosphorus supplementation in progress. Pain management-established with pain management team, sreedhar block, reconsulted. Counseled on polysubstance abuse with alcohol abstinence reinforced. Nicotine patch ordered. PPI for GI prophylaxis in place. Clear liquid diet, n.p.o. after midnight, scheduled for EGD tomorrow with GI. The impression and plan of care has been dictated as directed. : I performed a history and examination of this patient, discussed the same with the dictator. I agree with the dictator's note ,documented as a scribe. Any additional findings or plans will be noted.
[2024-07-12] MEDS: LACTULOSE 20 GM/30 ML CUP PO ONE (15:57)
[2024-07-12] MEDS: LACTULOSE 20 GM/30 ML CUP PO SCH (16:02)
--- NOTE | 2024-07-12 16:10 | P.CONS ---
History of Present Illness - Reason for Consult Consult date: 07/12/24 Abdominal pain, cirrhosis Requesting physician: Aristeo Fox - Chief Complaint Abdominal pain, nausea and vomiting - History of Present Illness This is a pleasant 49-year-old male with a longstanding history of alcohol addiction and abuse, recurrent chronic pancreatitis for over 17 years and cirrhosis of the liver, polysubstance abuse including alcohol cocaine heroin and marijuana, alcohol cirrhosis with ascites and esophageal varices, chronic anemia, bipolar and depression and recently underwent ventral hernia repair.. Patient presented to the emergency department with nausea and vomiting, abdominal pain and weakness. Patient was hypokalemic on admission as well as having low magnesium and phosphorus levels and was admitted to this hospital. He follows with pain management and had recent celiac plexus block for chronic abdominal pain. Gastroenterology was consulted for liver cirrhosis and chronic pancreatitis. Labs are consistent with alcohol cirrhosis of the liver, lipase was 202. Patient has been noncompliant with his medications and he has not been taking his lactulose. Ammonia level elevated at 73. Patient is stating that he has been having nausea and vomiting and not been able to eat or take his medications however nursing is reporting no vomiting and that patient is refusing to take his lactulose. Review of Systems REVIEW OF SYSTEMS: CARDIOPULMONARY: No chest pain or shortness of breath. Gastrointestinal: Abdominal pain. Nausea and vomiting. No hematemesis, coffee-ground emesis. No rectal bleeding, or melena. GENITOURINARY: No dysuria or hematuria. MUSCULOSKELETAL: Reports normal range of motion. SKIN: No rashes. No jaundice. ENDOCRINE: No chills, fevers. No excessive weight gain or loss. No polydipsia or polyuria. PSYCHIATRIC: Unremarkable. NEUROLOGY: No change in mental status. Denies dizziness, headache. ENT: Vision unremarkable. CONSTITUTIONAL: No recent weight loss. No fever, chills, night sweats. Past Medical History Past Medical History: Asthma, Cancer, GI Bleed, Liver Disease, Pneumonia, Renal Disease, Skin Disorder Additional Past Medical History / Comment(s): Liver cirrhosis, portal HTN, abdominal ascities, pancreatitis, upper and lower GI bleeds, bleeding ulcers, esophageal varicies-banded, thrombocytopemia, chronic anemia, gallstones, nephrolithiasis/hematuria, L inguinal hernia, psoriasis; paracentesis, umbilical hernia, left foot injury, pancreatic CA History of Any Multi-Drug Resistant Organisms: MRSA Year Discovered:: 12/09/13 MDRO Source:: Right first finger Past Surgical History: Appendectomy, Cholecystectomy, Hernia Repair, Orthopedic Surgery Additional Past Surgical History / Comment(s): EGDs/varicies banding/colonoscopy, paracentesis, right hand tendon repair, right knee arthroscopy, cystoscopy for kidney stone removal, right hand ring finger surgery. surgery for umbilical hernia, Hernia repair on 10/13 at [facility]. Past Anesthesia/Blood Transfusion Reactions: Previous Problems w/ Anesthesia, Motion Sickness Additional Past Anesthesia/Blood Transfusion Reaction / Comm: Woke up during scope procedure. Past Psychological History: Anxiety, Bipolar, Depression, PTSD Smoking Status: Current every day smoker - Past Family History Mother Family Medical History: No Reported History Additional Family Medical History / Comment(s): Mother has health issues from a MVA-pt did not elaborate. Father Family Medical History: Vascular Disorder Additional Family Medical History / Comment(s): Prostate issues grandpa. Brain aneurysm father. Medications and Allergies Home Medications Medication Instructions Recorded Confirmed Type Lactulose 20 gm PO TID 11/10/23 07/11/24 History Multivit-Mins/Iron/Folic/Lycop 1 tab PO DAILY 11/29/23 07/11/24 History [Centrum Men's Tablet] Fexofenadine HCl [Svitlana Allergy] 180 mg PO DAILY 06/21/24 07/11/24 History Magnesium Oxide [Mag-Ox] 400 mg PO DAILY 06/21/24 07/11/24 History Potassium Gluconate 99 mg PO DAILY 06/21/24 07/11/24 History diphenhydrAMINE HCL [Benadryl 25 mg PO TID PRN 06/21/24 07/11/24 History Allergy] Allergies Allergy/AdvReac Type Severity Reaction Status Date / Time No Known Allergies Allergy Verified 07/11/24 16:43 Physical Exam Vitals: Vital Signs Pulse Pulse Resp BP BP Pulse Ox 07/12/24 07:58 77 16 177/87 99 07/12/24 04:31 74 9 L 169/91 99 07/11/24 21:00 98 18 145/82 98 07/11/24 19:55 90 18 160/80 98 07/11/24 18:44 77 20 161/81 98 Intake and Output 07/11/24 07/12/24 07/12/24 22:59 06:59 14:59 Output Total 800 Balance -800 Output: Urine 800 Other: Voiding Method Toilet Toilet Urinal General appearance: The patient is alert, oriented, appears in no acute distress. HET: Head is normocephalic and atraumatic. Conjunctiva pink. Sclera anicteric. Neck: Supple without lymphadenopathy. Trachea midline. Heart: Regular. Lungs: Equal expansion, normal respiratory effort. Abdomen: Soft, mild tenderness, nondistended. Skin: No rashes. No jaundice. Extremities: Normal skin color and turgor. No pedal edema. Neurological: No focal deficits. Alert and oriented x3. Results CBC & Chem 7: 07/12/24 03:52 07/12/24 13:04 Labs: Abnormal Lab Results - Last 24 Hours (Table) 07/11/24 07/11/24 07/11/24 Range/Units 14:20 14:20 14:20 RBC 3.76 L (4.30-5.90) m/uL Hgb 12.8 L (13.0-17.5) gm/dL Hct 37.9 L (39.0-53.0) % MCV 100.7 H (80.0-100.0) fL MCH (27.0-32.0) pg RDW (11.5-14.5) % Plt Count 50 L (150-450) k/uL MPV (9.5-12.2) FL Lymphocytes # 0.6 L (1.0-4.8) k/uL Immature Plt Fraction (1.1-6.1) % Sodium 134 L (137-145) mmol/L Potassium 2.7 L* (3.5-5.1) mmol/L Chloride 97 L (98-107) mmol/L BUN 7 L (9-20) mg/dL Creatinine 0.51 L (0.66-1.25) mg/dL BUN/Creatinine Ratio (12.00-20.00) Ratio Glucose 147 H (74-99) mg/dL Plasma Lactic Acid Balaji 2.3 H* (0.7-2.0) mmol/L Calcium (8.7-10.3) mg/dL Phosphorus 0.8 L* (2.5-4.5) mg/dL Magnesium 0.9 L* (1.6-2.3) mg/dL Total Bilirubin 3.0 H (0.2-1.3) mg/dL AST 193 H (17-59) U/L ALT 59 H (4-49) U/L Alkaline Phosphatase 172 H (38-126) U/L Ammonia (<30) umol/L Total Protein (6.2-8.2) g/dL Albumin (3.8-4.9) g/dL Albumin/Globulin Ratio (1.60-3.17) Ratio 07/12/24 07/12/24 07/12/24 Range/Units 03:52 03:52 11:32 RBC 3.48 L (4.30-5.90) m/uL Hgb 12.0 L (13.0-17.5) gm/dL Hct 35.3 L (39.0-53.0) % MCV 101.4 H (80.0-100.0) fL MCH 34.5 H (27.0-32.0) pg RDW 14.6 H (11.5-14.5) % Plt Count 37 A* (150-450) k/uL MPV 13.5 H (9.5-12.2) FL Lymphocytes # 0.74 L (1.0-4.8) k/uL Immature Plt Fraction 11.5 H (1.1-6.1) % Sodium (137-145) mmol/L Potassium 3.0 L (3.5-5.1) mmol/L Chloride (98-107) mmol/L BUN 5.4 L (9-20) mg/dL Creatinine (0.66-1.25) mg/dL BUN/Creatinine Ratio 9.00 L (12.00-20.00) Ratio Glucose (74-99) mg/dL Plasma Lactic Acid Balaji (0.7-2.0) mmol/L Calcium 7.8 L (8.7-10.3) mg/dL Phosphorus 0.5 A* (2.5-4.5) mg/dL Magnesium (1.6-2.3) mg/dL Total Bilirubin 2.9 H (0.2-1.3) mg/dL AST 170 H (17-59) U/L ALT 57 H (4-49) U/L Alkaline Phosphatase 156 H (38-126) U/L Ammonia 73 H (<30) umol/L Total Protein 6.1 L (6.2-8.2) g/dL Albumin 3.4 L (3.8-4.9) g/dL Albumin/Globulin Ratio 1.26 L (1.60-3.17) Ratio // Range/Units 13:04 RBC (4.30-5.90) m/uL Hgb (13.0-17.5) gm/dL Hct (39.0-53.0) % MCV (80.0-100.0) fL MCH (27.0-32.0) pg RDW (11.5-14.5) % Plt Count (150-450) k/uL MPV (9.5-12.2) FL Lymphocytes # (1.0-4.8) k/uL Immature Plt Fraction (1.1-6.1) % Sodium (137-145) mmol/L Potassium 3.0 L (3.5-5.1) mmol/L Chloride (98-107) mmol/L BUN (9-20) mg/dL Creatinine (0.66-1.25) mg/dL BUN/Creatinine Ratio (12.00-20.00) Ratio Glucose (74-99) mg/dL Plasma Lactic Acid Balaji (0.7-2.0) mmol/L Calcium (8.7-10.3) mg/dL Phosphorus 1.6 L (2.5-4.5) mg/dL Magnesium (1.6-2.3) mg/dL Total Bilirubin (0.2-1.3) mg/dL AST (17-59) U/L ALT (4-49) U/L Alkaline Phosphatase (38-126) U/L Ammonia (<30) umol/L Total Protein (6.2-8.2) g/dL Albumin (3.8-4.9) g/dL Albumin/Globulin Ratio (1.60-3.17) Ratio Comments: CT abdomen pelvis without contrast reports marked cirrhosis of the liver, stable nonobstructing bilateral renal calcifications and no acute changes within the abdomen or pelvis. Pancreas and adrenal glands unremarkable. Assessment and Plan (1) Alcoholic cirrhosis of liver Narrative/Plan: 49-year-old male with a history of polysubstance abuse and alcohol abuse for many years diagnosed with pancreatitis and cirrhosis of the liver about 17 years ago. Patient continues to drink alcohol. He is not following with any congressional [employer] aide. History of decompensated alcohol cirrhosis with ascites with previous paracentesis. Currently no ascites. Labs are consistent with underlying liver disease with thrombocytopenia and elevated LFTs. CT abdomen pelvis findings consistent with liver cirrhosis. Patient with hyperammonemia, has not been taking his lactulose asked ordered secondary to nausea and vomiting. Current Visit: Yes Status: Acute Code(s): K70.30 - ALCOHOLIC CIRRHOSIS OF LIVER WITHOUT ASCITES SNOMED Code(s): 656339249 (2) History of chronic pancreatitis Narrative/Plan: CT abdomen pelvis without evidence of pancreatitis, lipase normal. Current Visit: Yes Status: Acute Code(s): Z87.19 - PERSONAL HISTORY OF OTHER DISEASES OF THE DIGESTIVE SYSTEM SNOMED Code(s): 68714896859729 (3) Hypokalemia Narrative/Plan: Replace per protocol Current Visit: Yes Status: Acute Code(s): E87.6 - HYPOKALEMIA SNOMED Code(s): 97233091 (4) Hypomagnesemia Current Visit: Yes Status: Acute Code(s): E83.42 - HYPOMAGNESEMIA SNOMED Code(s): 441501671 (5) Nausea & vomiting Narrative/Plan: Antiemetics as needed Current Visit: Yes Status: Acute Code(s): R11.2 - NAUSEA WITH VOMITING, UNSPECIFIED SNOMED Code(s): 41340309 (6) Abdominal pain Current Visit: No Status: Acute Code(s): R10.9 - UNSPECIFIED ABDOMINAL PAIN SNOMED Code(s): 70188741 (7) Alcohol abuse Current Visit: No Status: Acute Code(s): F10.10 - ALCOHOL ABUSE, U NCOMPLICATED SNOMED Code(s): 01173689 (8) Chronic anemia Narrative/Plan: Anemia of chronic disease with thrombocytopenia secondary to underlying alcohol liver disease Current Visit: No Status: Acute Code(s): D64.9 - ANEMIA, UNSPECIFIED SNOMED Code(s): 482531518 (9) Thrombocytopenia Current Visit: No Status: Acute Code(s): D69.6 - THROMBOCYTOPENIA, UNSPECIFIED SNOMED Code(s): 612304491 (10) Hyperammonemia Current Visit: No Status: Acute Code(s): E72.20 - DISORDER OF UREA CYCLE METABOLISM, UNSPECIFIED SNOMED Code(s): 5829197 Plan: 1. Continue symptomatic and supportive care 2. Change patient's diet to clear liquid diet, n.p.o. after midnight 3. Antiemetics as needed 4. Give lactulose 30 g then continue 20 g 3 times daily as scheduled 5. Repeat CBC, CMP, INR, and ammonia. Replace electrolytes per protocol 6. Will plan for upper endoscopy tomorrow secondary to nausea and vomiting 7. Recommend alcohol abstinence 8. Outpatient follow-up with gastroenterology 9. Rest of medical management per primary medical team Thank you for this consultation, we will continue to follow. Dr. Edgardo Huff I agree with the dictator's note, documented as a scribe by Frida Grgeory.
[2024-07-12 19:03] LABS: Magnesium 2.1 mg/dL (1.6-2.3); Phosphorus 1.8 mg/dL (2.5-4.5); Potassium 3.1 mmol/L (3.5-5.1)
[2024-07-12] MEDS: ACETAMINOPHEN TAB 325 MG TAB PO PRN (21:33)
[2024-07-12] MEDS: POTAS-SOD-PHOS 280-160-250 MG 1 EACH PACKET PO SCH (21:54)
[2024-07-13] MEDS: MAGNESIUM OXIDE 400 MG TAB PO SCH (08:15)
--- NOTE | 2024-07-13 10:36 | P.PN ---
Subjective Progress Note Date: 07/13/24 H&P Date: 07/12/24 Chief Complaint: Nausea and vomiting Is a 49-year-old male with past medical history significant for recent celiac plexus block 06/08/2024 ,polysubstance abuse including alcohol , cocaine heroin marijuana, pancreatitis, chronic alcoholic hepatitis ,ascites with multiple paracentesis, esophageal varices with multiple banding's, chronic anemia, ventral hernia repair, bipolar, depression, anxiety, multiple other medical issues presented to the ER with complaints of nausea and vomiting, diffuse abdominal pain. States he has not been compliant with taking his lactulose over the last week as he cannot keep anything down.Ammonia level pending.Reports his last drink was the evening before coming into the ER. Afebrile, normal WBC, lactic acid 2.3, resolved with IV fluid hydration currently down to 1.1, hemoglobin 12, platelets 37. Sodium 136. Potassium 2.7, 3, bicarb 25.6, BUN 5.4, creatinine 0.6, glucose 104, phosphorus 0.5, magnesium 0.9, 1.5, T. bili 2.9, AST 170, ALT 57, alk phos 156, total protein 6.1, lipase 202. Serum al cohol less than 10 receiving supplements for potassium, Phos, magnesium. 07/13/2024 n.p.o., scheduled for EGD. Ammonia level yesterday initially 73. Patient had continued to decline lactulose yesterday morning as well as this morning. Ammonia level this morning 66. medical compliance with lactulose with rationale reinforced. CBC, CMP, PT/INR pending. Denies nausea, vomiting or diarrhea. Denies chest pain, palpitations or shortness of breath. Maintaining O2 sats in the mid 90s on room air. Maintained on CIWA protocol, recent CIWA score 2. Patient discloses he has to be discharged to be at a court hearing for tomorrow early a.m. reports abdominal pain mildly improved. Pain management services consult in place. Objective - Vital Signs Vital signs: Vital Signs Temp 98.3 F 07/13/24 07:10 Pulse 85 07/13/24 07:10 Resp 18 07/13/24 07:10 BP 157/82 07/13/24 07:10 Pulse Ox 96 07/13/24 07:10 FiO2 Intake & Output 07/12/24 07/13/2407/13/25 18:59 06:59 18:59 Intake Total 550 Balance 550 Weight 88.904 kg Intake: Intake, IV Titration 550 Amount Magnesium Sulfate-D5w Pmx 100 1 gm In Dextrose/Water 1 100ml.bag @ 100 mls/hr IVPB Q1H [facility] Rx#: [id number] Magnesium Sulfate-D5w Pmx 100 1 gm In Dextrose/Water 1 100ml.bag @ 100 mls/hr IVPB Q1H [facility] Rx#: [id number] Potassium Chloride 20 meq 100 In Water For Injection 1 100ml.bag @ 50 mls/hr IVPB ONCE [facility] [place] Rx#: [id number] Potassium Phosphate 10 250 mmol In Sodium Chloride 0 .9% 250 ml @ 125 mls/hr IV Q2H [facility] Rx#:[id number] Other: Voiding Method Toilet Toilet Urinal # Voids 2 - Exam General: [Patient awake, alert and oriented times 3, sitting up in bed. no acute distress. HEENT: [PERRL. EOMI. sclera nonicteric .no pharyngeal erythema or exudate.] Neck: Supple, no JVD Cardiac: [Heart regular in rate and rhythm. No S3. No S4. No clicks, rubs. No murmur.] Lungs: Unlabored, equal air entry, essentially clear with bilateral bases diminished] Abdomen: Soft, nondistended, minimal diffuse tenderness, no guarding, no rigidity, positive bowel sounds Extremes: [No edema no cyanosis no claudication normal pulses] Skin: [No jaundice, rash. warm and dry. ] Neurologic: CN II - XII grossly intact.] - Labs CBC & Chem 7: 07/12/24 03:52 07/12/24 18:16 Labs: Abnormal Lab Results - Last 24 Hours (Table) 07/12/24 07/12/24 07/12/24 Range/Units 03:52 11:32 13:04 RBC 3.48 L (4.40-5.60) X 10*6/uL Hgb 12.0 L (13.0-17.0) g/dL Hct 35.3 L (39.6-50.0) % MCV 101.4 H (80.0-97.0) FL MCH 34.5 H (27.0-32.0) pg RDW 14.6 H (11.5-14.5) % Plt Count 37 A* (140-440) X 10*3/uL MPV 13.5 H (9.5-12.2) FL Lymphocytes # 0.74 L (0.90-5.00) X 10*3/uL Immature Plt Fraction 11.5 H (1.1-6.1) % Potassium 3.0 L (3.5-5.1) mmol/L Phosphorus 1.6 L (2.5-4.5) mg/dL Ammonia 73 H (<30) umol/L 07/12/24 07/13/24 Range/Units 18:16 04:33 RBC (4.40-5.60) X 10*6/uL Hgb (13.0-17.0) g/dL Hct (39.6-50.0) % MCV (80.0-97.0) FL MCH (27.0-32.0) pg RDW (11.5-14.5) % Plt Count (140-440) X 10*3/uL MPV (9.5-12.2) FL Lymphocytes # (0.90-5.00) X 10*3/uL Immature Plt Fraction (1.1-6.1) % Potassium 3.1 L (3.5-5.1) mmol/L Phosphorus 1.8 L (2.5-4.5) mg/dL Ammonia 66 H (<30) umol/L Assessment and Plan Assessment: Abdominal pain, chronic, recent celiac plexus block with pain management services on 06/08/2024 Acute thrombocytopenia Hypophosphatemia Hypokalemia Hypomagnesemia Lactic acidosis, resolved with IV fluid hydration Chronic pancreatitis History of esophageal varices with multiple bandings Elevated LFTs in a patient with history of alcoholic cirrhosis of liver, chronic alcoholic hepatitis Portal hypertension History of ascites with multiple paracentesis Alcohol dependence History of polysubstance abuse including cocaine, heroin, marijuana Noncompliance Chronic alcoholic hepatitis Chronic nicotine dependence History of nephrolithiasis, chronic anemia Plan: Continue on current medication resume ,monitoring and symptomatic treatment. CIWA protocol. Continue lactulose. IV fluid hydration. Labs pending. Pain management team on consult. Alcohol abstinence reinforced. NPO, EGD pending. Discharge planning in progress pending platelets continue to improve, ammonia level within normal limits,EGD results, and clearance per consults. The impression and plan of care has been dictated as directed. : I performed a history and examination of this patient, discussed the same with the dictator. I agree with the dictator's note ,documented as a scribe. Any additional findings or plans will be noted.
[2024-07-13 11:02] LABS: ALT 61 U/L (10-49); AST 179 U/L (14-35); Albumin 3.4 g/dL (3.8-4.9); Albumin/Globulin Ratio 1.21 Ratio (1.60-3.17); Alkaline Phosphatase 162 U/L (41-126); BUN/Creat Ratio 5.57 Ratio (12.00-20.00); Blood Urea Nitrogen 3.9 mg/dL (9.0-27.0); Calcium 7.2 mg/dL (8.7-10.3); Carbon Dioxide 24.3 mmol/L (21.6-31.8); Chloride 102 mmol/L (96-109); Globulin 2.8 g/dL (1.6-3.3); Glucose 99 mg/dL (70-110); Sodium 137 mmol/L (135-145); Total Bilirubin 2.9 mg/dL (0.3-1.2); Total Protein 6.2 g/dL (6.2-8.2)
[2024-07-13 11:08] LABS: Basophils # (A) 0.09 X 10*3/uL (0.00-0.10); Basophils % (A) 1.8 %; Eosinophils # (A) 0.14 X 10*3/uL (0.04-0.35); Eosinophils % (A) 2.8 %; HCT 36.2 % (39.6-50.0); HGB 12.3 g/dL (13.0-17.0); Immature Platelet Fraction 12.5 % (1.1-6.1); Lymphocytes # (A) 0.89 X 10*3/uL (0.90-5.00); Lymphocytes % (A) 17.7 %; MCH 34.6 pg (27.0-32.0); Mean Platelet Volume 13.4 FL (9.5-12.2); Monocytes # (A) 0.89 X 10*3/uL (0.20-1.00); Monocytes % (A) 17.7 %; NRBC Per 100 WBC 0 X 10*3/uL (0.00-0.01); Neutrophils # (A) 3.01 X 10*3/uL (1.80-7.70); Neutrophils % (A) 59.6 %; Platelet Count 45 X 10*3/uL (140-440); RBC 3.55 X 10*6/uL (4.40-5.60); RDW 14.6 % (11.5-14.5); WBC 5.04 X 10*3/uL (4.50-10.00)
[2024-07-13] MEDS ORDERED: Potassium Replacement Protocol 1 EACH MISC MISCELLANE PRN (11:09)
--- NOTE | 2024-07-13 11:15 | P.PN ---
Progress Note - Text Progress Note Date: 07/13/24 Patient was seen and discussed will proceed with upper endoscopy later this afternoon. Patient denies any nausea or vomiting. His ammonia level was 66, he refused his dose of lactulose this morning, but is now agreeable. Today's labs just now resulted, WBC 5.0 hemoglobin 12.3 platelet count 45,000 INR still pending sodium 137 potassium 3.0 BUN 3.9 creatinine 0.7 total bilirubin 2.9 AST 179 ALT 61 alkaline phosphatase 162. Will replace potassium per protocol. Await INR. Dr. Edgardo Huff I agree with the dictator's note, documented as a scribe by Frida Greogry.
[2024-07-13] MEDS: POTASSIUM CHLORIDE 10 MEQ in WATER FOR INJECTION 1 100ML.BAG IVPB SCH (12:57)
[2024-07-13 13:26] LABS: INR 1.3 (<1.2); Prothrombin Time 14.1 sec (10.0-12.5)
[2024-07-13 13:30] VITALS: BMI 26.6
[2024-07-13] MEDS: LORazepam 1 MG TAB PO PRN (13:33)
[2024-07-13 13:42] LABS: INR 1.22 sec (0.93-1.11); Prothrombin Time 13.7 sec (9.9-11.9)
--- NOTE | 2024-07-13 14:41 | P.PAINCN ---
History of Present Illness - History of Present Illness This is a 49-year-old pleasant gentleman who has history of Corrine drug abuse in the past was discharged from pain clinic secondary to consumption of nonprescription medication. He has history of alcoholism, cirrhosis of liver, pancreatitis . patient has been admitted to hospital because of abdominal pain. He had history of recurrent pancreatitis for which he had celiac plexus block done in the past. Patient denies any improvement of his pain after celiac plexus block. His pain is located in the low back mostly right flank area going down to right groin. Also some pain in the hypogastric area. Currently patient denies any nausea or vomiting. Current medications has controlled some of his pain but still bothering him significantly. Patient is supposed to get upper endoscopy today. Past Medical History Past Medical History: Asthma, Cancer, GI Bleed, Liver Disease, Pneumonia, Renal Disease, Skin Disorder Additional Past Medical History / Comment(s): Liver cirrhosis, portal HTN, abdominal ascities, pancreatitis, upper and lower GI bleeds, bleeding ulcers, esophageal varicies-banded, thrombocytopemia, chronic anemia, gallstones, nephrolithiasis/hematuria, L inguinal hernia, psoriasis; paracentesis, umbilical hernia, left foot injury, pancreatic CA History of Any Multi-Drug Resistant Organisms: MRSA Year Discovered:: 12/09/13 MDRO Source:: Right first finger Past Surgical History: Appendectomy, Cholecystectomy, Hernia Repair, Orthopedic Surgery Additional Past Surgical History / Comment(s): EGDs/varicies banding/colonoscopy, paracentesis, right hand tendon repair, right knee arthroscopy, cystoscopy for kidney stone removal, right hand ring finger surgery. surgery for umbilical hernia, Hernia repair on 10/[address] [facility]. Past Anesthesia/Blood Transfusion Reactions: Previous Problems w/ Anesthesia, Motion Sickness Additional Past Anesthesia/Blood Transfusion Reaction / Comm: Woke up during scope procedure. Past Psychological History: Anxiety, Bipolar, Depression, PTSD Smoking Status: Current every day smoker - Past Family History Mother Family Medical History: No Reported History Additional Family Medical History / Comment(s): Mother has health issues from a MVA-pt did not elaborate. Father Family Medical History: Vascular Disorder Additional Family Medical History / Comment(s): Prostate issues grandpa. Brain aneurysm father. Medications and Allergies Home Medications Medication Instructions Recorded Confirmed Type Lactulose 20 gm PO TID 11/10/23 07/11/24 History Multivit-Mins/Iron/Folic/Lycop 1 tab PO DAILY 11/29/23 07/11/24 History [Centrum Men's Tablet] Fexofenadine HCl [Svitlana Allergy] 180 mg PO DAILY 06/21/24 07/11/24 History Magnesium Oxide [Mag-Ox] 400 mg PO DAILY 06/21/24 07/11/24 History Potassium Gluconate 99 mg PO DAILY 06/21/24 07/11/24 History diphenhydrAMINE HCL [Benadryl 25 mg PO TID PRN 06/21/24 07/11/24 History Allergy] Allergies Allergy/AdvReac Type Severity Reaction Status Date / Time No Known Allergies Allergy Verified 07/11/24 16:43 Physical Exam Vitals: Vital Signs Temp Pulse Pulse Resp BP Pulse Ox 07/13/24 07:10 98.3 F 85 18 157/82 96 07/13/24 01:10 98.2 F 83 17 132/73 92 L 07/12/24 21:45 98.1 F 92 18 156/82 95 07/12/24 21:22 88 20 159/89 96 Intake and Output 07/12/24 07/13/24 07/13/24 22:59 06:59 14:59 Intake Total 550 Balance 550 Intake: Intake, IV Titration 550 Amount Magnesium Sulfate-D5w Pmx 100 1 gm In Dextrose/Water 1 100ml.bag @ 100 mls/hr IVPB Q1H [facility] Rx#: [id number] Magnesium Sulfate-D5w Pmx 100 1 gm In Dextrose/Water 1 100ml.bag @ 100 mls/hr IVPB Q1H [facility] Rx#: [id number] Potassium Chloride 20 meq 100 In Water For Injection 1 100ml.bag @ 50 mls/hr IVPB ONCE [facility] Rx#: [id number] Potassium Phosphate 10 250 mmol In Sodium Chloride 0 .9% 250 ml @ 125 mls/hr IV Q2H [facility] Rx#:[id number] Other: Voiding Method Toilet # Voids 2 Weight 88.904 kg Limited physical examination. Abdomen mild to moderate tenderness mostly in the right side and right flank area. No significant rebound tenderness or rigidity. Results CBC & Chem 7: 07/13/24 04:33 07/13/24 04:33 Labs: Abnormal Lab Results - Last 24 Hours (Table) 07/12/24 07/13/24 07/13/24 Range/Units 18:16 04:33 04:33 RBC (4.40-5.60) X 10*6/uL Hgb (13.0-17.0) g/dL Hct (39.6-50.0) % MCV (80.0-97.0) FL MCH (27.0-32.0) pg RDW (11.5-14.5) % Plt Count (140-440) X 10*3/uL MPV (9.5-12.2) FL Lymphocytes # (0.90-5.00) X 10*3/uL Immature Plt Fraction (1.1-6.1) % PT (9.9-11.9) sec INR (0.93-1.11) sec Potassium 3.1 L 3.0 L (3.5-5.1) mmol/L BUN 3.9 L (9.0-27.0) mg/dL BUN/Creatinine Ratio 5.57 L (12.00-20.00) Ratio Calcium 7.2 L (8.7-10.3) mg/dL Phosphorus 1.8 L (2.5-4.5) mg/dL Total Bilirubin 2.9 H (0.3-1.2) mg/dL AST 179 H (14-35) U/L ALT 61 H (10-49) U/L Alkaline Phosphatase 162 H (41-126) U/L Ammonia 66 H (<30) umol/L Albumin 3.4 L (3.8-4.9) g/dL Albumin/Globulin Ratio 1.21 L (1.60-3.17) Ratio 07/13/24 07/13/24 07/13/24 Range/Units 04:33 04:33 12:49 RBC 3.55 L (4.40-5.60) X 10*6/uL Hgb 12.3 L (13.0-17.0) g/dL Hct 36.2 L (39.6-50.0) % MCV 102.0 H (80.0-97.0) FL MCH 34.6 H (27.0-32.0) pg RDW 14.6 H (11.5-14.5) % Plt Count 45 A* (140-440) X 10*3/uL MPV 13.4 H (9.5-12.2) FL Lymphocytes # 0.89 L (0.90-5.00) X 10*3/uL Immature Plt Fraction 12.5 H (1.1-6.1) % PT 13.7 H 14.1 H (9.9-11.9) sec INR 1.22 H 1.3 H (0.93-1.11) sec Potassium (3.5-5.1) mmol/L BUN (9.0-27.0) mg/dL BUN/Creatinine Ratio (12.00-20.00) Ratio Calcium (8.7-10.3) mg/dL Phosphorus (2.5-4.5) mg/dL Total Bilirubin (0.3-1.2) mg/dL AST (14-35) U/L ALT (10-49) U/L Alkaline Phosphatase (41-126) U/L Ammonia (<30) umol/L Albumin (3.8-4.9) g/dL Albumin/Globulin Ratio (1.60-3.17) Ratio Assessment and Plan Assessment: Abdominal pain. Being evaluated for etiology. Component of pain could be secondary to ureteric stone. Plan: Increased liver enzymes and cirrhosis complicates any increase of pain medication at this time. Suggest. Continue low-dose Oxy IR. May consider slowly tapering off. May add, gabapentin/pregabalin starting with low-dose. Will follow the patient in outpatient pain clinic. PQRS Measure Charge Sheet - Pain Location Bilateral Abdomen Non-Pharmacological Interventions: Distraction Pharmacological Interventions: Discuss Pain Med Options PQRS Narrative: Smoking Status Current every day smoker Blood Pressure [Supine] 157/82 Blood Pressure 145/82 Pain Intensity [Bilateral 8 Abdomen] Pain Intensity 8 Pain Scale Used Numeric (1 - 10) Scale Used Numeric (1 - 10) Hx Alcohol Use (MH) No Home Medications: Ambulatory Orders Lactulose 20 gm PO TID 11/10/23 Multivit-Mins/Iron/Folic/Lycop [Centrum Men's Tablet] 1 tab PO DAILY 11/29/23 Fexofenadine HCl [Svitlana Allergy] 180 mg PO DAILY 06/21/24 Magnesium Oxide [Mag-Ox] 400 mg PO DAILY 06/21/24 Potassium Gluconate 99 mg PO DAILY 06/21/24 diphenhydrAMINE HCL [Benadryl Allergy] 25 mg PO TID PRN 06/21/24
[2024-07-13] MEDS ORDERED: PROPOFOL 10 MG/ML 20 ML VIAL IV ONE (16:24)
[2024-07-13] MEDS ORDERED: LIDOCAINE 1% INJ 10MG/ML (20 ML MDV) ONE (16:24)
--- NOTE | 2024-07-13 16:36 | P.PCN ---
Date of Procedure: 07/13/24 Procedure(s) Performed: BRIEF HISTORY: Patient is a 41-year-old, pleasant, white male with history of alcoholic cirrhosis of the liver diagnosed 2 years ago admitted to hospital with nausea vomiting and epigastric pain for the last 1 week duration. He denies any GI bleed.. PROCEDURE PERFORMED: Esophagogastroduodenoscopy with biopsy. PREOPERATIVE DIAGNOSIS: Nausea vomiting and epigastric pain of 1 week duration. IV sedation per anesthesia. PROCEDURE: After informed consent was obtained, the patient was brought into the endoscopy unit. IV sedation was administered by Anesthesia under continuous monitoring. Initially the Olympus GIF-140 video endoscope was inserted into the mouth. Esophagus intubated without any difficulty. It was gradually advanced into the stomach and duodenum and carefully examined. The bulb and the second part of the duodenum appeared normal. The scope at this time was withdrawn to the stomach, adequately insufflated with air, and upon careful examination, mucosa of the antrum, 1 cm clean-based antral ulcer with no active bleeding. Biopsies were done from this area. There was diffuse gastritis involving the body, cardia and the fundus. The scope was then withdrawn into the esophagus. The GE junction was located at 39 cm from the incisors. The esophagus appeared normal. There were no erosions or ulcerations seen. No evidence of esophageal varices and the patient tolerated the procedure well. IMPRESSION: 1. 1 cm clean-based antral ulcer status post biopsy. 2. Diffuse gastritis 3. No evidence of gastric or esophageal varices. RECOMMENDATIONS: The findings of this examination were discussed with the patient . He will be continued on Protonix 40 mg twice daily. Avoid NSAIDs. Start on for liquid diet and advance as tolerated.
[2024-07-13] MEDS: SODIUM CHLORIDE 0.9% 50 ML IV ONE (16:37)
[2024-07-13 16:50] LABS: African American GFR (CKD) >90 (>60 ml/min/1.73 sqM); Anion Gap 9 mmol/L; Blood Urea Nitrogen 4 mg/dL (9-20); Calcium 7.1 mg/dL (8.4-10.2); Carbon Dioxide 24 mmol/L (22-30); Chloride 103 mmol/L (98-107); Glucose 104 mg/dL (74-99); Non-African American GFR(CKD) >90 (>60 ml/min/1.73 sqM); Potassium 3.2 mmol/L (3.5-5.1); Sodium 136 mmol/L (137-145)
[2024-07-14 10:33] LABS: African American GFR (CKD) >90 (>60 ml/min/1.73 sqM); Anion Gap 8 mmol/L; Blood Urea Nitrogen 4 mg/dL (9-20); Calcium 7.3 mg/dL (8.4-10.2); Carbon Dioxide 26 mmol/L (22-30); Chloride 101 mmol/L (98-107); Glucose 114 mg/dL (74-99); HCT 38.9 % (39.0-53.0); HGB 12.6 gm/dL (13.0-17.5); MCH 34.4 pg (25.0-35.0); MCHC 32.5 g/dL (31.0-37.0); Macrocytosis Moderate; Magnesium 1.5 mg/dL (1.6-2.3); Non-African American GFR(CKD) >90 (>60 ml/min/1.73 sqM); Phosphorus 2.3 mg/dL (2.5-4.5); Potassium 3.3 mmol/L (3.5-5.1); RBC 3.67 m/uL (4.30-5.90); RDW 15.2 % (11.5-15.5); Sodium 135 mmol/L (137-145); WBC 5.6 k/uL (3.8-10.6)
[2024-07-14 10:56] LABS: Platelet Count 64 k/uL (150-450)
[2024-07-14] MEDS: MAGNESIUM SULFATE-D5W PMX 1 GM in DEXTROSE/WATER 1 100ML.BAG IVPB SCH (11:45)
[2024-07-14] MEDS: LACTULOSE 20 GM/30 ML CUP PO SCH (11:45)
[2024-07-14] MEDS: POTASSIUM CHLORIDE ER 20 MEQ TAB.ER PO SCH (11:46)
--- NOTE | 2024-07-14 11:46 | P.PN ---
Subjective Progress Note Date: 07/14/24 H&P Date: 07/12/24 Chief Complaint: Nausea and vomiting Is a 49-year-old male with past medical history significant for recent celiac plexus block 06/08/2024 ,polysubstance abuse including alcohol , cocaine heroin marijuana, pancreatitis, chronic alcoholic hepatitis ,ascites with multiple paracentesis, esophageal varices with multiple banding's, chronic anemia, ventral hernia repair, bipolar, depression, anxiety, multiple other medical issues presented to the ER with complaints of nausea and vomiting, diffuse abdominal pain. States he has not been compliant with taking his lactulose over the last week as he cannot keep anything down.Ammonia level pending.Reports his last drink was the evening before coming into the ER. Afebrile, normal WBC, lactic acid 2.3, resolved with IV fluid hydration currently down to 1.1, hemoglobin 12, platelets 37. Sodium 136. Potassium 2.7, 3, bicarb 25.6, BUN 5.4, creatinine 0.6, glucose 104, phosphorus 0.5, magnesium 0.9, 1.5, T. bili 2.9, AST 170, ALT 57, alk phos 156, total protein 6.1, lipase 202. Serum al cohol less than 10 receiving supplements for potassium, Phos, magnesium. 07/13/2024 n.p.o., scheduled for EGD. Ammonia level yesterday initially 73. Patient had continued to decline lactulose yesterday morning as well as this morning. Ammonia level this morning 66. medical compliance with lactulose with rationale reinforced. CBC, CMP, PT/INR pending. Denies nausea, vomiting or diarrhea. Denies chest pain, palpitations or shortness of breath. Maintaining O2 sats in the mid 90s on room air. Maintained on CIWA protocol, recent CIWA score 2. Patient discloses he has to be discharged to be at a court hearing for tomorrow early a.m. reports abdominal pain mildly improved. Pain management services consult in place. 07/14/2024 staff reports patient has declined some doses of lactulose, ammonia level increased to 108. Potassium 3.3, magnesium 1.5, phosphorus 2.3. Platelets up to 64. Status post EGD reporting 1 cm clean-based antral ulcer status post biopsy, diffuse gastritis, no evidence of gastric or esophageal varices with recommendations to continue on Protonix 40 mg twice daily and avoid NSAIDs. Diet advanced to regular as per GI, tolerating well. Denies nausea vomiting or diarrhea. Denies abdominal pain. Complaints of "kidney stone pain". Denies chest pain, palpitations or shortness of breath. CIWA score 2. Objective - Vital Signs Vital signs: Vital Signs Temp 99.1 F 07/14/24 06:40 Pulse 93 07/14/24 06:40 Resp 18 07/14/24 06:40 BP 134/83 07/14/24 06:40 Pulse Ox 94 L 07/14/24 06:40 FiO2 Intake & Output 07/13/24 07/14/24 07/14/24 18:59 06:59 18:59 Intake Total 10 Output Total 550 Balance -540 Weight 88.904 kg Intake: IV 10 Output: Urine 550 Other: Voiding Method Toilet Toilet # Voids 3 - Exam General: [Patient awake, alert and oriented times 3, sitting up in bed. no acute distress. HEENT: [PERRL. EOMI. sclera nonicteric .no pharyngeal erythema or exudate.] Neck: Supple, no JVD. Cardiac: [Heart regular in rate and rhythm. No S3. No S4. No clicks, rubs. No murmur.] Lungs: Unlabored, equal air entry, clear with bilateral bases diminished] Abdomen: Soft, nondistended, minimal diffuse tenderness, no guarding, no rigidity, positive bowel sounds Extremes: [No edema no cyanosis no claudication normal pulses] Skin: [No jaundice, rash. warm and dry. ] Neurologic: CN II - XII grossly intact.] - Labs CBC & Chem 7: 07/14/24 09:54 07/14/24 09:54 Labs: Abnormal Lab Results - Last 24 Hours (Table) 07/13/24 07/13/24 07/13/24 Range/Units 04:33 12:49 16:03 RBC (4.30-5.90) m/uL Hgb (13.0-17.5) gm/dL Hct (39.0-53.0) % MCV (80.0-100.0) fL Plt Count (150-450) k/uL PT 13.7 H 14.1 H (9.9-11.9) sec INR 1.22 H 1.3 H (0.93-1.11) sec Sodium 136 L (137-145) mmol/L Potassium 3.2 L (3.5-5.1) mmol/L BUN 4 L (9-20) mg/dL Creatinine 0.62 L (0.66-1.25) mg/dL Glucose 104 H (74-99) mg/dL Calcium 7.1 L (8.4-10.2) mg/dL Phosphorus (2.5-4.5) mg/dL Magnesium (1.6-2.3) mg/dL Ammonia (<30) umol/L 07/13/24 07/14/24 07/14/24 Range/Units 16:03 09:54 09:54 RBC 3.67 L (4.30-5.90) m/uL Hgb 12.6 L (13.0-17.5) gm/dL Hct 38.9 L (39.0-53.0) % MCV 106.0 H D (80.0-100.0) fL Plt Count 64 L (150-450) k/uL PT (9.9-11.9) sec INR (0.93-1.11) sec Sodium 135 L (137-145) mmol/L Potassium 3.3 L (3.5-5.1) mmol/L BUN 4 L (9-20) mg/dL Creatinine 0.61 L (0.66-1.25) mg/dL Glucose 114 H (74-99) mg/dL Calcium 7.3 L (8.4-10.2) mg/dL Phosphorus 2.3 L (2.5-4.5) mg/dL Magnesium 1.5 L (1.6-2.3) mg/dL Ammonia 63 H (<30) umol/L 07/14/24 Range/Units 09:54 RBC (4.30-5.90) m/uL Hgb (13.0-17.5) gm/dL Hct (39.0-53.0) % MCV (80.0-100.0) fL Plt Count (150-450) k/uL PT (9.9-11.9) sec INR (0.93-1.11) sec Sodium (137-145) mmol/L Potassium (3.5-5.1) mmol/L BUN (9-20) mg/dL Creatinine (0.66-1.25) mg/dL Glucose (74-99) mg/dL Calcium (8.4-10.2) mg/dL Phosphorus (2.5-4.5) mg/dL Magnesium (1.6-2.3) mg/dL Ammonia 108 H (<30) umol/L Assessment and Plan Assessment: Abdominal pain, chronic, recent celiac plexus block with pain management services on 06/08/2024 Acute thrombocytopenia Hypophosphatemia Hypokalemia Hypomagnesemia Lactic acidosis, resolved with IV fluid hydration Chronic pancreatitis History of esophageal varices with multiple bandings Elevated LFTs in a patient with history of alcoholic cirrhosis of liver, chronic alcoholic hepatitis Portal hypertension History of ascites with multiple paracentesis Alcohol dependence History of polysubstance abuse including cocaine, heroin, marijuana Noncompliance Chronic alcoholic hepatitis Chronic nicotine dependence History of nephrolithiasis, chronic anemia Plan: Continue on current medication resume ,monitoring and symptomatic treatment. CIWA protocol. Additional lactulose ordered. Repeat labs ordered for this afternoon. electrolyte supplementation ordered.Alcohol abstinence reinforced.Discharge planning in progress pending ammonia level within normal limits. The impression and plan of care has been dictated as directed. : I performed a history and examination of this patient, discussed the same with the dictator. I agree with the dictator's note ,documented as a scribe. Any additional findings or plans will be noted.
[2024-07-14] MEDS: POTASSIUM PHOSPHATE 10 MMOL in SODIUM CHLORIDE 0.9% 250 ML IV SCH (12:06)
[2024-07-14] MEDS: POTASSIUM CHLORIDE ER 20 MEQ TAB.ER PO STA (12:07)
--- NOTE | 2024-07-14 12:27 | P.DS ---
Providers Date of admission: 07/11/24 20:17 Expected date of discharge: 07/14/24 Attending physician: Aristeo Fox Consults: 07/12/24 11:59 Consult Physician Routine Consulting Provider: Shane Patel Consult Reason/Comments: pain management Do you want consulting provider notified?: Yes 07/12/24 12:02 Consult Physician Routine Consulting Provider: Bernie Huff Consult Reason/Comments: abd. pain,chronic cirrhosis, Do you want consulting provider notified?: Yes Primary care physician: [facility] Course: Final Diagnoses: Abdominal pain, chronic, recent celiac plexus block with pain management services on 06/08/2024 Acute thrombocytopenia Hypophosphatemia Hypokalemia Hypomagnesemia Lactic acidosis, resolved with IV fluid hydration Chronic pancreatitis History of esophageal varices with multiple bandings Elevated LFTs in a patient with history of alcoholic cirrhosis of liver, chronic alcoholic hepatitis Portal hypertension History of ascites with multiple paracentesis Alcohol dependence History of polysubstance abuse including cocaine, heroin, marijuana Noncompliance Chronic alcoholic hepatitis Chronic nicotine dependence History of nephrolithiasis, chronic anemia Hospital course: Is a 49-year-old male with past medical history significant for recent celiac plexus block 06/08/2024 ,polysubstance abuse including alcohol , cocaine heroin marijuana, pancreatitis, chronic alcoholic hepatitis ,ascites with multiple paracentesis, esophageal varices with multiple banding's, chronic anemia, ventral hernia repair, bipolar, depression, anxiety, multiple other medical issues presented to the ER with complaints of nausea and vomiting, diffuse abdominal pain. States he has not been compliant with taking his lactulose over the last week as he cannot keep anything down.Ammonia level pending.Reports his last drink was the evening before coming into the ER. Afebrile, normal WBC, lactic acid 2.3, resolved with IV fluid hydration currently down to 1.1, hemoglobin 12, platelets 37. Sodium 136. Potassium 2.7, 3, bicarb 25.6, BUN 5.4, creatinine 0.6, glucose 104, phosphorus 0.5, magnesium 0.9, 1.5, T. bili 2.9, AST 170, ALT 57, alk phos 156, total protein 6.1, lipase 202. Serum alcohol less than 10 receiving supplements for potassium, Phos, magnesium. 07/13/2024 n.p.o., scheduled for EGD. Ammonia level yesterday initially 73. Patient had continued to decline lactulose yesterday morning as well as this morning. Ammonia level this morning 66. medical compliance with lactulose with rationale reinforced. CBC, CMP, PT/INR pending. Denies nausea, vomiting or diarrhea. Denies chest pain, palpitations or shortness of breath. Maintaining O2 sats in the mid 90s on room air. Maintained on CIWA protocol, recent CIWA score 2. Patient discloses he has to be discharged to be at a court hearing for tomorrow early a.m. reports abdominal pain mildly improved. Pain management services consult in place. 07/14/2024 staff reports patient has declined some doses of lactulose, ammonia level increased to 108. Potassium 3.3, magnesium 1.5, phosphorus 2.3. Platelets up to 64. Status post EGD reporting 1 cm clean-based antral ulcer status post biopsy, diffuse gastritis, no evidence of gastric or esophageal varices with recommendations to continue on Protonix 40 mg twice daily and avoid NSAIDs. Diet advanced to regular as per GI, tolerating well. Denies nausea vomiting or diarrhea. Denies abdominal pain. Complaints of "kidney stone pain". Denies chest pain, palpitations or shortness of breath. CIWA score 2. CIWA protocol. Additional lactulose ordered. Repeat labs ordered for this afternoon. electrolyte supplementation ordered.Alcohol abstinence reinforced.Discharge planning in progress pending ammonia level within normal limits. Patient will be discharged home today in a stable condition with guarded prognosis pending ammonia level less than 80 as per PCP, Dr. Fox. alcohol abstinence and smoking cessation reinforced. The impression and plan of care has been dictated as directed. : I performed a history and examination of this patient, discussed the same with the dictator. I agree with the dictator's note ,documented as a scribe. Any additional findings or plans will be noted. Patient Condition at Discharge: Stable Plan - Discharge Summary New Discharge Prescriptions: New Nicotine 21Mg/24Hr Patch [Habitrol] 1 patch TRANSDERM DAILY patch Pantoprazole Sodium [Protonix] 40 mg PO BID #60 tab Folic Acid 1 mg PO DAILY tab Thiamine [Vitamin B-1] 100 mg PO DAILY tab Continue Multivit-Mins/Iron/Folic/Lycop [Centrum Men's Tablet] 1 tab PO DAILY Potassium Gluconate 99 mg PO DAILY Magnesium Oxide [Mag-Ox] 400 mg PO DAILY Fexofenadine HCl [Svitlana Allergy] 180 mg PO DAILY diphenhydrAMINE HCL [Benadryl] 25 mg PO TID PRN PRN Reason: Itching Lactulose 20 gm PO TID Discharge Medication List Lactulose 20 gm PO TID 11/10/23 [History] Multivit-Mins/Iron/Folic/Lycop [Centrum Men's Tablet] 1 tab PO DAILY 11/29/23 [History] Fexofenadine HCl [Svitlana Allergy] 180 mg PO DAILY 06/21/24 [History] Magnesium Oxide [Mag-Ox] 400 mg PO DAILY 06/21/24 [History] Potassium Gluconate 99 mg PO DAILY 06/21/24 [History] diphenhydrAMINE HCL [Benadryl] 25 mg PO TID PRN 06/21/24 [History] Nicotine 21Mg/24Hr Patch [Habitrol] 1 patch TRANSDERM DAILY patch 07/13/24 [Rx] Folic Acid 1 mg PO DAILY tab 07/14/24 [Rx] Pantoprazole Sodium [Protonix] 40 mg PO BID #60 tab 07/14/24 [Rx] Thiamine [Vitamin B-1] 100 mg PO DAILY tab 07/14/24 [Rx] Follow up Appointment(s)/Referral(s): James Meza Jr, DO [Primary Care Provider] - 07/18/24 2:45 pm [facility] [NON-STAFF] - 07/17/24 1:30 pm
--- NOTE | 2024-07-14 13:17 | P.PN ---
Subjective Progress Note Date: 07/14/24 Principal diagnosis: Liver cirrhosis This is a pleasant 49-year-old male with a longstanding history of alcohol addiction and abuse, recurrent chronic pancreatitis for over 17 years and cirrhosis of the liver, polysubstance abuse including alcohol cocaine heroin and marijuana, alcohol cirrhosis with ascites and esophageal varices, chronic anemia, bipolar and depression and recently underwent ventral hernia repair.. Patient presented to the emergency department with nausea and vomiting, abdominal pain and weakness. Patient was hypokalemic on admission as well as having low magnesium and phosphorus levels and was admitted to this hospital. He follows with pain management and had recent celiac plexus block for chronic abdominal pain. Gastroenterology was consulted for liver cirrhosis and chronic pancreatitis. Labs are consistent with alcohol cirrhosis of the liver, lipase was 202. Patient has been noncompliant with his medications and he has not been taking his lactulose. Ammonia level elevated at 73. Patient is stating that he has been having nausea and vomiting and not been able to eat or take his medications however nursing is reporting no vomiting and that patient is refusing to take his lactulose. 07/14/2024 Patient seen and examined today as a follow-up. He is alert and oriented. Yesterday he underwent upper endoscopy with findings of gastritis and nonbleeding ulcer but no evidence of esophageal varices. He states he he was able to eat yesterday no nausea or vomiting. Denies any abdominal pain at this time. Patient is concerned he has to be discharged for court meeting or he may go back to care home. Hemoglobin 12.6 platelet count 64,000 sodium 135 potassium 3.3 ammonia level 108. Patient had been refusing to take his lactulose again. Objective - Vital Signs Vital signs: Vital Signs Temp 98.6 F 07/14/24 01:42 Pulse 88 07/14/24 01:42 Resp 17 07/14/24 01:42 BP 132/81 07/14/24 01:42 Pulse Ox 93 L 07/14/24 01:42 FiO2 Intake & Output 07/13/24 07/13/24 07/14/24 06:59 18:59 06:59 Intake Total 10 Output Total 550 Balance -540 Weight 88.904 kg Intake: IV 10 Output: Urine 550 Other: Voiding Method Toilet Toilet Toilet # Voids 2 3 - Exam General appearance: The patient is alert, oriented, appears in no acute distress. HET: Head is normocephalic and atraumatic. Conjunctiva pink. Sclera anicteric. Neck: Supple without lymphadenopathy. Abdomen: Soft, nontender, nondistended. Extremities: Normal skin color and turgor. No pedal edema Skin: No rashes, no jaundice Neurological: No focal deficits. Alert and oriented. - Labs CBC & Chem 7: 07/14/24 09:54 07/14/24 09:54 Labs: Abnormal Lab Results - Last 24 Hours (Table) 07/13/24 07/13/24 07/13/24 Range/Units 04:33 04:33 04:33 RBC 3.55 L (4.40-5.60) X 10*6/uL Hgb 12.3 L (13.0-17.0) g/dL Hct 36.2 L (39.6-50.0) % MCV 102.0 H (80.0-97.0) FL MCH 34.6 H (27.0-32.0) pg RDW 14.6 H (11.5-14.5) % Plt Count 45 A* (140-440) X 10*3/uL MPV 13.4 H (9.5-12.2) FL Lymphocytes # 0.89 L (0.90-5.00) X 10*3/uL Immature Plt Fraction 12.5 H (1.1-6.1) % PT 13.7 H (9.9-11.9) sec INR 1.22 H (0.93-1.11) sec Sodium (137-145) mmol/L Potassium 3.0 L (3.5-5.5) mmol/L BUN 3.9 L (9.0-27.0) mg/dL Creatinine (0.66-1.25) mg/dL BUN/Creatinine Ratio 5.57 L (12.00-20.00) Ratio Glucose (74-99) mg/dL Calcium 7.2 L (8.7-10.3) mg/dL Total Bilirubin 2.9 H (0.3-1.2) mg/dL AST 179 H (14-35) U/L ALT 61 H (10-49) U/L Alkaline Phosphatase 162 H (41-126) U/L Ammonia (<30) umol/L Albumin 3.4 L (3.8-4.9) g/dL Albumin/Globulin Ratio 1.21 L (1.60-3.17) Ratio 07/13/24 07/13/24 07/13/24 Range/Units 12:49 16:03 16:03 RBC (4.40-5.60) X 10*6/uL Hgb (13.0-17.0) g/dL Hct (39.6-50.0) % MCV (80.0-97.0) FL MCH (27.0-32.0) pg RDW (11.5-14.5) % Plt Count (140-440) X 10*3/uL MPV (9.5-12.2) FL Lymphocytes # (0.90-5.00) X 10*3/uL Immature Plt Fraction (1.1-6.1) % PT 14.1 H (9.9-11.9) sec INR 1.3 H (0.93-1.11) sec Sodium 136 L (137-145) mmol/L Potassium 3.2 L (3.5-5.5) mmol/L BUN 4 L (9.0-27.0) mg/dL Creatinine 0.62 L (0.66-1.25) mg/dL BUN/Creatinine Ratio (12.00-20.00) Ratio Glucose 104 H (74-99) mg/dL Calcium 7.1 L (8.7-10.3) mg/dL Total Bilirubin (0.3-1.2) mg/dL AST (14-35) U/L ALT (10-49) U/L Alkaline Phosphatase (41-126) U/L Ammonia 63 H (<30) umol/L Albumin (3.8-4.9) g/dL Albumin/Globulin Ratio (1.60-3.17) Ratio Assessment and Plan (1) Alcoholic cirrhosis of liver Narrative/Plan: 49-year-old male with a history of polysubstance abuse and alcohol abuse for many years diagnosed with pancreatitis and cirrhosis of the liver about 17 years ago. Patient continues to drink alcohol. He is not following with any gas troenterologist. History of decompensated alcohol cirrhosis with ascites with previous paracentesis. Currently no ascites. Labs are consistent with underlying liver disease with thrombocytopenia and elevated LFTs. CT abdomen pelvis findings consistent with liver cirrhosis. Patient with hyperammonemia, has not been taking his lactulose asked ordered secondary to nausea and vomiting. Current Visit: Yes Status: Acute Code(s): K70.30 - ALCOHOLIC CIRRHOSIS OF LIVER WITHOUT ASCITES SNOMED Code(s): 253526652 (2) History of chronic pancreatitis Narrative/Plan: CT abdomen pelvis without evidence of pancreatitis, lipase normal. Current Visit: Yes Status: Acute Code(s): Z87.19 - PERSONAL HISTORY OF OTHER DISEASES OF THE DIGESTIVE SYSTEM SNOMED Code(s): 80066669733893 (3) Hypokalemia Narrative/Plan: Replace per protocol Current Visit: Yes Status: Acute Code(s): E87.6 - HYPOKALEMIA SNOMED Code(s): 32143290 (4) Hypomagnesemia Current Visit: Yes Status: Acute Code(s): E83.42 - HYPOMAGNESEMIA SNOMED Code(s): 056847945 (5) Nausea & vomiting Narrative/Plan: Resolved. Patient is status post upper endoscopy with findings of nonbleeding clean-based ulcer and diffuse gastritis. No esophageal varices. Current Visit: Yes Status: Acute Code(s): R11.2 - NAUSEA WITH VOMITING, UNSPECIFIED SNOMED Code(s): 37810350 (6) Abdominal pain Current Visit: No Status: Acute Code(s): R10.9 - UNSPECIFIED ABDOMINAL PAIN SNOMED Code(s): 41313192 (7) Alcohol abuse Current Visit: No Status: Acute Code(s): F10.10 - ALCOHOL ABUSE, UNCOMPLICATED SNOMED Code(s): 21060917 (8) Chronic anemia Narrative/Plan: Anemia of chronic disease with thrombocytopenia secondary to underlying alcohol liver disease Current Visit: No Status: Acute Code(s): D64.9 - ANEMIA, UNSPECIFIED SNOMED Code(s): 932622438 (9) Thrombocytopenia Current Visit: No Status: Acute Code(s): D69.6 - THROMBOCYTOPENIA, UNSPECIFIED SNOMED Code(s): 505972340 (10) Hyperammonemia Narrative/Plan: Patient continues to refuse his lactulose Current Visit: No Status: Acute Code(s): E72.20 - DISORDER OF UREA CYCLE METABOLISM, UNSPECIFIED SNOMED Code(s): 4329300 Plan: 1. Continue symptomatic and supportive care 2. Diet as tolerated 3. Antiemetics as needed 4. Continue lactulose 30 g 3 times daily 5. Replace potassium per protocol 6. Patient is status post upper endoscopy 7. Recommend alcohol abstinence 8. Outpatient follow-up with gastroenterology for biopsy results 9. Rest of medical management per primary medical team Thank you for this consultation, gastroenterology will sign off at this time. Dr. Edgardo Huff I agree with the dictator's note, documented as a scribe by Frida Gregory.
[2024-07-14] MEDS: LACTULOSE 20 GM/30 ML CUP PO ONE (17:54)
[2024-07-15 08:20] VITALS: BP 113/75; PULSE 101; RESP 20; TEMP 98.5
--- NOTE | 2024-07-15 12:00 | P.PN ---
Progress Note - Text Patient was seen and reevaluated today. His ammonia is now 73 has been taking his lactulose faithfully. He would like to be discharged home. We discussed close outpatient follow-up of his ammonia level. He will follow-up in the office in the next 2 to 3 days for an ammonia level. He insist that he will not consume alcohol and will take his lactulose faithfully.
== END 2024-07-15 12:56 | disposition home or self-care (01) | DRG 241 ==
LOC: EC 13:53 → 4SSUR 20:17
PROVIDERS: ADMIT Family Medicine; ATTEND Family Medicine
PROC: 0DB78ZX Excision of Stomach, Pylorus, Via Natural or Artificial Opening Endoscopic, Diagnostic (ICD-10-PCS; principal; 2024-07-13 07:45)
DX: K25.9 Gastric ulcer, unspecified as acute or chronic, without hemorrhage or perforation (principal); K29.70 Gastritis, unspecified, without bleeding; G89.29 Other chronic pain; D69.59 Other secondary thrombocytopenia; E83.39 Other disorders of phosphorus metabolism; E87.6 Hypokalemia; E83.42 Hypomagnesemia; E87.20 Acidosis, unspecified; K86.1 Other chronic pancreatitis; K76.6 Portal hypertension; F17.200 Nicotine dependence, unspecified, uncomplicated; K70.30 Alcoholic cirrhosis of liver without ascites; E72.20 Disorder of urea cycle metabolism, unspecified; D63.8 Anemia in other chronic diseases classified elsewhere; N20.1 Calculus of ureter; K70.10 Alcoholic hepatitis without ascites; F10.20 Alcohol dependence, uncomplicated; Z91.199 Patient's noncompliance with other medical treatment and regimen due to unspecified reason; Z85.07 Personal history of malignant neoplasm of pancreas; Z91.148 Patient's other noncompliance with medication regimen for other reason
CPT/HCPCS: 36415; 43239; 74176; 80048; 80053; 80320; 82140; 83605; 83690; 83735; 84100; 84132; 84484; 85025; 85027; 85610; 88305; 88342; 96361; 96365; 96366; 96367; 96375; 96376; 99291

== ENCOUNTER → 2024-07-17 | Outpatient (CLI) | payer OTHER ==
[2024-07-17 14:16] VITALS: BP 129/60; PULSE 88; RESP 16; TEMP 97.6
--- NOTE | 2024-07-17 15:42 | P.PAINPG ---
PQRS Measure Charge Sheet Comment: HISTORY OF PRESENT ILLNESS: A 49 yr old male presents today w severe and chronic abdominal pain secondary to Hx of pancreatic CA and pancreatitis for medication refills. Pt states pain level is provoked at 7 /10 in intensity, constant, localized in the upper abd, burning in character w occasional shooting pain towards the back. Pain is provoked by meals, multiple abdominal surgeries. Pain is alleviated by heat, medications, repositioning and rest . Interventional procedures include Celiac Plexus block x1 Medications include Arom[place] 10/325mg #90, Hx of ETOH abuse, Cocaine/ Heroin Abuse/ Cannabis use REVIEW OF ORGAN SYSTEMS: CONSTITUTIONAL: No fevers or chills. No recent weight loss. NEUROLOGICAL: + numbness and tingling along the distal extremities. No seizure disorders or headaches. MUSCULOSKELETAL: + pain PSYCHIATRIC: Denies current depression or suicidal thoughts. Physical Examinations : Constitutional : Cooperative , not in acute distress . Neurologic : Cranial nerve II to XII intact. No focal neurological deficits. Psychiatric : alert & oriented x 3. Matching mood & appropriate affect. Judgment & insight intact. Musculoskeletal : +Abd Guarding, +Abd Distention Cervical Spine Motor strength in the deltoid and biceps: Normal right side. Normal Left side Motor strength biceps and the wrist extensors: Normal right side . Normal left side Motor strength in the triceps muscle: Normal right side. Normal left side Deep tendon reflexes: Normal at the biceps. Normal at Brachioradialis. Normal at triceps Vertebral body tenderness to deep palpation over Cervical facet loading test: positive bilaterally Spurling test: positive bilaterally Neck distraction test: positive bilaterally Reina sign: positive bilaterally Lumbar spine Motor strength lower extremities ,thigh and legs 5/5 Right side , 5/5 Left side Deep tendon reflexes : Normal Knee Jerk. Normal Ankle Jerk Vertebral body tenderness over Murillo Test positive Lumbar facet Loading Test: positive Right / positive Left Range of motion of the lumbar spine Flexion 30 degrees, extension 10 degrees Straight Leg Raise test: Left/ Right positive at degrees Terri test: positive right / positive left. Severe tenderness over the Sacroiliac joint on the Right / Left sides Gaenslen test: positive bilaterally Seated flexion test: positive bilaterally. Sacral spine : Severe tenderness over the Sacroiliac joint: right side / left side Range of motion: Flexion of the lumbar spine <60 degrees Range of motion: Extension of the lumbar spine <20 degrees Gaenslen's Test positive Terri test: positive right side / left side Thigh Thrust Test Sacral Thrust Test Assessment/ Plan : Chronic Abdominal Pain secondary to Pancreatic CA, Pancreatitis Recommendation of medication management. UDS 05/03/24 reviewed, +presumptive ETOH metabolites, +presumptive Cannabis metabolites. Discussed rules of narcotic agreement again and not to violate. All questions answered. I have spent greater than 30 minutes on patient care today. Dr Patel was available by phone for the evaluation of this patient. The time was used to review the medical records including relevant urine studies and Prescription history (MAPs), review of the available imaging, evaluation and examination of the patient, coordination of care with the medical staff and if applicable referring physicians, as well as creation of the medical record - Pain Location Back Non-Pharmacological Interventions: Position/Reposition PQRS Narrative: Smoking Status Current every day smoker Hx Alcohol Use (MH) No Home Medications: Ambulatory Orders Lactulose 20 gm PO TID 11/10/23 Multivit-Mins/Iron/Folic/Lycop [Centrum Men's Tablet] 1 tab PO DAILY 11/29/23 Fexofenadine HCl [Svitlana Allergy] 180 mg PO DAILY 06/21/24 Magnesium Oxide [Mag-Ox] 400 mg PO DAILY 06/21/24 Potassium Gluconate 99 mg PO DAILY 06/21/24 diphenhydrAMINE HCL [Benadryl] 25 mg PO TID PRN 06/21/24 Nicotine 21Mg/24Hr Patch [Habitrol] 1 patch TRANSDERM DAILY patch 07/13/24 Folic Acid 1 mg PO DAILY tab 07/14/24 Pantoprazole Sodium [Protonix] 40 mg PO BID #60 tab 07/14/24 Thiamine [Vitamin B-1] 100 mg PO DAILY tab 07/14/24 Lactulose [Cephulac] 30 gm PO QID ml 07/15/24 HYDROcodone/APAP 10-325MG [Aromas 10-325] 1 tab PO TID PRN 30 Days #90 tab 07/17/24 HYDROcodone/APAP 10-325MG [Aromas 10-325] 1 tab PO TID PRN 30 Days #90 tab 07/17/24 Controlled Substance Measures - Controlled Substance Measures Is patient prescribed a controlled substance at discharge?: Yes When asked, does pt state using other controlled substances?: No If prescribed controlled substance>3 days was MAPS reviewed?: Yes
== END ==
LOC: PNWHC3 13:35
PROVIDERS: ATTEND Specialist
DX: C78.89 Secondary malignant neoplasm of other digestive organs (principal); K85.90 Acute pancreatitis without necrosis or infection, unspecified; G89.29 Other chronic pain; F17.210 Nicotine dependence, cigarettes, uncomplicated
CPT/HCPCS: G0463 ×2; 99211; 99212

== ENCOUNTER → 2024-09-13 | Outpatient (CLI) | payer OTHER ==
[2024-09-13 08:43] VITALS: BP 165/96; PULSE 104; RESP 16; TEMP 98.1
--- NOTE | 2024-09-13 16:47 | P.PAINPG ---
PQRS Measure Charge Sheet Comment: HISTORY OF PRESENT ILLNESS: A 49 yr old male presents today w severe and chronic abdominal pain secondary to Hx of pancreatic CA and pancreatitis for medication refills. Pt states pain level is provoked at 8 /10 in intensity, constant, localized in the upper abd, burning in character w occasional shooting pain towards the back. Pain is provoked by meals, multiple abdominal surgeries. Pain is alleviated by heat, medications, repositioning and rest. Pt rescheduled his appt 2 times prior to today's visit. Discussed abnormal UDS results, and repeat UDS today, that if he violates the narcotic agreement, he will be discharged of narcotic medication refills. Acknowledged understanding. Interventional procedures include Celiac Plexus block x1 Medications include [place] 10/325mg #90, Hx of ETOH abuse, Cocaine/ Heroin Abuse/ Cannabis use REVIEW OF ORGAN SYSTEMS: CONSTITUTIONAL: No fevers or chills. No recent weight loss. NEUROLOGICAL: + numbness and tingling along the distal extremities. No seizure disorders or headaches. MUSCULOSKELETAL: + pain PSYCHIATRIC: Denies current depression or suicidal thoughts. Physical Examinations : Constitutional : Cooperative , not in acute distress . Neurologic : Cranial nerve II to XII intact. No focal neurological deficits. Psychiatric : alert & oriented x 3. Matching mood & appropriate affect. Judgment & insight intact. Musculoskeletal : +Abd Guarding, +Abd Distention Cervical Spine Motor strength in the deltoid and biceps: Normal right side. Normal Left side Motor strength biceps and the wrist extensors: Normal right side . Normal left side Motor strength in the triceps muscle: Normal right side. Normal left side Deep tendon reflexes: Normal at the biceps. Normal at Brachioradialis. Normal at triceps Vertebral body tenderness to deep palpation over Cervical facet loading test: positive bilaterally Spurling test: positive bilaterally Neck distraction test: positive bilaterally Reina sign: positive bilaterally Lumbar spine Motor strength lower extremities ,thigh and legs 5/5 Right side , 5/5 Left side Deep tendon reflexes : Normal Knee Jerk. Normal Ankle Jerk Vertebral body tenderness over Murillo Test positive Lumbar facet Loading Test: positive Right / positive Left Range of motion of the lumbar spine Flexion 30 degrees, extension 10 degrees Straight Leg Raise test: Left/ Right positive at degrees Terri test: positive right / positive left. Severe tenderness over the Sacroiliac joint on the Right / Left sides Gaenslen test: positive bilaterally Seated flexion test: positive bilaterally. Sacral spine : Severe tenderness over the Sacroiliac joint: right side / left side Range of motion: Flexion of the lumbar spine <60 degrees Range of motion: Extension of the lumbar spine <20 degrees Gaenslen's Test positive Terri test: positive right side / left side Thigh Thrust Test Sacral Thrust Test Assessment/ Plan : Chronic Abdominal Pain secondary to Pancreatic CA, Pancreatitis Recommendation of medication management. Repeat UDS 09/13/24. UDS 05/03/24 reviewed, +presumptive ETOH metabolites, +presumptive Cannabis metabolites. Discussed rules of narcotic agreement again and not to violate. All questions answered. I have spent greater than 30 minutes on patient care today. Dr Patel was available by phone for the evaluation of this patient. The time was used to review the medical records including relevant urine studies and Prescription history (MAPs), review of the available imaging, evaluation and examination of the patient, coordination of care with the medical staff and if applicable referring physicians, as well as creation of the medical record PQRS Narrative: Smoking Status Current every day smoker Hx Alcohol Use (MH) No Home Medications: Ambulatory Orders Lactulose 20 gm PO TID 11/10/23 Multivit-Mins/Iron/Folic/Lycop [Centrum Men's Tablet] 1 tab PO DAILY 11/29/23 Fexofenadine HCl [Svitlana Allergy] 180 mg PO DAILY 06/21/24 Magnesium Oxide [Mag-Ox] 400 mg PO DAILY 06/21/24 Potassium Gluconate 99 mg PO DAILY 06/21/24 diphenhydrAMINE HCL [Benadryl] 25 mg PO TID PRN 06/21/24 Nicotine 21Mg/24Hr Patch [Habitrol] 1 patch TRANSDERM DAILY patch 07/13/24 Folic Acid 1 mg PO DAILY tab 07/14/24 Pantoprazole Sodium [Protonix] 40 mg PO BID #60 tab 07/14/24 Thiamine [Vitamin B-1] 100 mg PO DAILY tab 07/14/24 Lactulose [Cephulac] 30 gm PO QID ml 07/15/24 HYDROcodone/APAP 10-325MG [[place] 10-325] 1 tab PO TID PRN 30 Days #90 tab 09/13/24 HYDROcodone/APAP 10-325MG [[place] 10-325] 1 tab PO TID PRN 30 Days #90 tab 09/13/24 Controlled Substance Measures - Controlled Substance Measures Is patient prescribed a controlled substance at discharge?: Yes When asked, does pt state using other controlled substances?: No If prescribed controlled substance>3 days was MAPS reviewed?: Yes
== END ==
LOC: PNWHC3 08:04
PROVIDERS: ATTEND Specialist
DX: K85.90 Acute pancreatitis without necrosis or infection, unspecified (principal); G89.29 Other chronic pain; C25.9 Malignant neoplasm of pancreas, unspecified; F17.200 Nicotine dependence, unspecified, uncomplicated
CPT/HCPCS: 80307; G0463; 99212

== ENCOUNTER 2024-11-02 15:36 | Observation (INO) | payer OTHER ==
--- NOTE | 2024-11-02 15:44 | ED ---
General Adult HPI - General Stated complaint: abd pain Time Seen by Provider: 11/02/24 15:37 Source: patient, RN notes reviewed Mode of arrival: EMS Limitations: no limitations - History of Present Illness Initial comments: Patient is a 49-year-old male present to the emergency department with concerns for bleeding. Patient states symptoms have been occurring for the past week. Patient has had some blood in his stool over the past week. Patient has had some epigastric pain. Patient does have history of similar symptoms previously associated with a stomach ulcer. No nausea or vomiting. Some decreased oral intake. Patient has also had some blood in his urine. - Related Data Home Medications Medication Instructions Recorded Confirmed Lactulose 20 gm PO TID 11/10/23 11/02/24 Multivit-Mins/Iron/Folic/Lycop 1 tab PO DAILY 11/29/23 11/02/24 [Centrum Men's Tablet] Magnesium Oxide [Mag-Ox] 400 mg PO DAILY 06/21/24 11/02/24 Potassium Gluconate 99 mg PO DAILY 06/21/24 11/02/24 Albuterol Sulfate [Albuterol 1 puff INHALATION RT-Q4H PRN 11/02/24 11/02/24 Sulfate Hfa] Fluticasone/Umeclidin/Vilanter 1 puff INHALATION RT-DAILY 11/02/24 11/02/24 [Trelegy Ellipta 100-62.5-25] Nicotine 21Mg/24Hr Patch [Habitrol] 1 patch TRANSDERM DAILY PRN 11/02/24 11/02/24 atenoloL [Tenormin] 25 mg PO DAILY 11/02/24 11/02/24 Previous Rx's Medication Instructions Recorded Pantoprazole Sodium [Protonix] 40 mg PO BID #60 tab 07/14/24 HYDROcodone/APAP 10-325MG [Elba 1 tab PO TID PRN 30 Days #90 tab 09/13/24 10-325] Allergies Allergy/AdvReac Type Severity Reaction Status Date / Time No Known Allergies Allergy Verified 11/02/24 18:42 Review of Systems ROS Statement: Those systems with pertinent positive or pertinent negative responses have been documented in the HPI. ROS Other: All systems not noted in ROS Statement are negative. Constitutional: Denies: fever Eyes: Denies: eye pain ENT: Denies: ear pain Respiratory: Denies: cough Cardiovascular: Denies: chest pain Gastrointestinal: Reports: as per HPI, abdominal pain, nausea, hematochezia. Denies: vomiting Musculoskeletal: Denies: back pain Skin: Denies: rash Neurological: Denies: weakness Past Medical History Past Medical History: Asthma, Cancer, GI Bleed, Liver Disease, Pneumonia, Renal Disease, Skin Disorder Additional Past Medical History / Comment(s): Liver cirrhosis, portal HTN, abdominal ascities, pancreatitis, upper and lower GI bleeds, bleeding ulcers, esophageal varicies-banded, thrombocytopemia, chronic anemia, gallstones, nephrolithiasis/hematuria, L inguinal hernia, psoriasis; paracentesis, umbilical hernia, left foot injury, pancreatic CA History of Any Multi-Drug Resistant Organisms: MRSA Date of last positivie culture/infection: 12/09/13 MDRO Source:: Right first finger Past Surgical History: Appendectomy, Cholecystectomy, Hernia Repair, Orthopedic Surgery Additional Past Surgical History / Comment(s): EGDs/varicies banding/colonoscopy, paracentesis, right hand tendon repair, right knee arthroscopy, cystoscopy for kidney stone removal, right hand ring finger surgery. surgery for umbilical hernia, Hernia repair on 10/13 at [facility]. Past Anesthesia/Blood Transfusion Reactions: Previous Problems w/ Anesthesia, Motion Sickness Additional Past Anesthesia/Blood Transfusion Reaction / Comment(s): Woke up during scope procedure. Past Psychological History: Anxiety, Bipolar, Depression, PTSD Additional Psychological History / Comment(s): He uses no assistive device. He does not drive, uses bus system. Smoking Status: Current every day smoker Past Alcohol Use History: None Reported Additional Past Alcohol Use History / Comment(s): Pt states he started smoking in 1984- states he is back up to a ppd. he staes he quit drinking 4 months ago and recently drank a fifth las tnight due to his pain. Past Drug Use History: None Reported Additional Drug Use History / Comment(s): pt stats he last smoked marijuana on 10/28/19 and last did cocaine on 10/25/19. - Past Family History Mother Family Medical History: No Reported History Additional Family Medical History / Comment(s): Mother has health issues from a MVA-pt did not elaborate. Father Family Medical History: Vascular Disorder Additional Family Medical History / Comment(s): Prostate issues grandpa. Brain aneurysm father. General Exam Limitations: no limitations General appearance: alert, in no apparent distress Head exam: Present: atraumatic Eye exam: Present: normal appearance ENT exam: Present: normal oropharynx Neck exam: Present: normal inspection Respiratory exam: Present: normal lung sounds bilaterally Cardiovascular Exam: Present: regular rate, normal rhythm GI/Abdominal exam: Present: soft, tenderness (Mild epigastric tenderness to palpation), normal bowel sounds. Absent: distended, guarding, rebound, rigid, pulsatile mass Extremities exam: Present: normal inspection Neurological exam: Present: alert Psychiatric exam: Present: normal affect, normal mood Skin exam: Present: normal color Course Vital Signs 11/02/24 15:42 Temperature 98.2 F Pulse Rate 79 Respiratory 17 Rate Blood Pressure 150/92 O2 Sat by Pulse 98 Oximetry Medical Decision Making - Medical Decision Making Was pt. sent in by a medical professional or institution (, PA, LICENSING DIRECTOR, urgent care, hospital, or custodial...) When possible be specific @ -No Did you speak to anyone other than the patient for history (EMS, parent, family, police, friend...)? What history was obtained from this source @ -No Did you review nursing and triage notes (agree or disagree)? Why? @ -I reviewed and agree with nursing and triage notes Were old charts reviewed (outside hosp., previous admission, EMS record, old EKG, old radiological studies, urgent care reports/EKG's, custodial records)? Report findings @ -No old charts were reviewed Differential Diagnosis (chest pain, altered mental status, abdominal pain women, abdominal pain men, vaginal bleeding, weakness, fever, dyspnea, syncope, headache, dizziness, GI bleed, back pain, seizure, CVA, palpatations, mental health, musculoskeletal)? @ -Differential Abdominal Pain Men: Appendicitis, cholecystitis, diverticulosis, ischemic bowel, pancreatitis, hepatitis, UTI, gastroenteritis, AAA, incarcerated hernia, bowel obstruction, constipation, inflammatory bowel, hepatitis, peptic ulcer disease, splenic infarction, perforated viscus, testicular torsion, this is not meant to be an all-inclusive list EKG interpreted by me (3pts min.). @ -As above X-rays interpreted by me (1pt min.). @ -None done CT interpreted by me (1pt min.). @ -CT scan without active bleeding U/S interpreted by me (1pt. min.). @ -None done What testing was considered but not performed or refused? (CT, X-rays, U/S, labs)? Why? @ -None What meds were considered but not given or refused? Why? @ -None Did you discuss the management of the patient with other professionals (professionals i.e. , PA, LICENSING DIRECTOR, lab, RT, psych nurse, social welfare administrator, border measurer, teacher, gift officer, showcase maker)? Give summary @ -Dr. Garcia who will admit this patient Was smoking cessation discussed for >3mins.? @ -No Was critical care preformed (if so, how long)? @ -No Were there social determinants of health that impacted care today? How? (Homelessness, low income, unemployed, alcoholism, drug addiction, transportation, low edu. Level, literacy, decrease access to med. care, shelter, rehab)? @ -No Was there de-escalation of care discussed even if they declined (Discuss DNR or withdrawal of care, Hospice)? DNR status @ -No What co-morbidities impacted this encounter? (DM, HTN, Smoking, COPD, CAD, Cancer, CVA, ARF, Chemo, Hep., AIDS, mental health diagnosis, sleep apnea, morbid obesity)? @ -History of chronic liver disease Was patient admitted / discharged? Hospital course, mention meds given and route, prescriptions, significant lab abnormalities, going to OR and other pertinent info. @ -Patient presents with abdominal pain. Patient states rectal bleeding however Hemoccult is negative and CT angiogram negative. Patient however does have significant alcohol to intoxication 371. Patient states he last drank yesterday. Patient is also hypokalemic. Patient will be admitted with potassium replacement and reevaluation in the morning. Patient updated admission orders written. Undiagnosed new problem with uncertain prognosis? @ -No Drug Therapy requiring intensive monitoring for toxicity (Heparin, Nitro, Insulin, Cardizem)? @ -No Were any procedures done? @ -No Diagnosis/symptom? @ -Hypokalemia, abdominal pain, alcohol intoxication Acute, or Chronic, or Acute on Chronic? @ -Acute, acute, acute Uncomplicated (without systemic symptoms) or Complicated (systemic symptoms)? @ -Default Side effects of treatment? @ -No Exacerbation, Progression, or Severe Exacerbation? @ -No Poses a threat to life or bodily function? How? (Chest pain, USA, DC, pneumonia, PE, COPD, DKA, ARF, appy, cholecystitis, CVA, Diverticulitis, Homicidal, Suici howie, threat to staff... and all critical care pts) @ -No - Lab Data Result diagrams: 11/02/24 15:59 11/02/24 15:59 Lab Results 11/02/24 11/02/24 11/02/24 Range/Units 15:59 15:59 15:59 WBC 6.23 (4.50-10.00) 10*3/uL RBC 3.52 L (4.40-5.60) 10*6/uL Hgb 12.5 L (13.0-17.0) g/dL Hct 35.9 L (39.6-50.0) % MCV 102.0 H (80.0-97.0) fL MCH 35.5 H (27.0-32.0) pg MCHC 34.8 (32.0-37.0) g/dL Plt Count 53 L (140-440) 10*3/uL MPV 10.9 (9.5-12.2) fL Immature Gran % (Auto) 0.3 % Neutrophils % 62.3 % Lymphocytes % 18.0 % Monocytes % 15.9 % Eosinophils % 0.8 % Basophils % 2.7 % Immature Gran # 0.02 (0.00-0.04) 10*3/uL Neutrophils # 3.88 (1.80-7.70) 10*3/uL Lymphocytes # 1.12 (0.90-5.00) 10*3/uL Monocytes # 0.99 (0.20-1.00) 10*3/uL Eosinophils # 0.05 (0.04-0.35) 10*3/uL Basophils # 0.17 H (0.00-0.10) 10*3/uL Manual Slide Review Perf RBC Morphology Normal PT 12.8 H (10.0-12.5) sec INR 1.2 H (<1.2) APTT 26.2 (22.0-30.0) sec Sodium 145 (137-145) mmol/L Potassium 2.6 L* (3.5-5.1) mmol/L Chloride 110 H (98-107) mmol/L Carbon Dioxide 22 (22-30) mmol/L Anion Gap 13 mmol/L BUN 9 (9-20) mg/dL Creatinine 0.56 L (0.66-1.25) mg/dL Est GFR (CKD-EPI)AfAm >90 (>60 ml/min/1.73 sqM) Est GFR (CKD-EPI)NonAf >90 (>60 ml/min/1.73 sqM) Glucose 117 H (74-99) mg/dL Calcium 8.6 (8.4-10.2) mg/dL Total Bilirubin 3.8 H (0.2-1.3) mg/dL AST 224 H (17-59) U/L ALT 57 H (4-49) U/L Alkaline Phosphatase 192 H (38-126) U/L Total Protein 7.0 (6.3-8.2) g/dL Albumin 3.7 (3.5-5.0) g/dL Amylase 78 (30-110) U/L Lipase 478 H (23-300) U/L Stool Occult Blood (Negative) Serum Alcohol 371 H* mg/dL 11/02/24 Range/Units 19:03 WBC (4.50-10.00) 10*3/uL RBC (4.40-5.60) 10*6/uL Hgb (13.0-17.0) g/dL Hct (39.6-50.0) % MCV (80.0-97.0) fL MCH (27.0-32.0) pg MCHC (32.0-37.0) g/dL Plt Count (140-440) 10*3/uL MPV (9.5-12.2) fL Immature Gran % (Auto) % Neutrophils % % Lymphocytes % % Monocytes % % Eosinophils % % Basophils % % Immature Gran # (0.00-0.04) 10*3/uL Neutrophils # (1.80-7.70) 10*3/uL Lymphocytes # (0.90-5.00) 10*3/uL Monocytes # (0.20-1.00) 10*3/uL Eosinophils # (0.04-0.35) 10*3/uL Basophils # (0.00-0.10) 10*3/uL Manual Slide Review RBC Morphology PT (10.0-12.5) sec INR (<1.2) APTT (22.0-30.0) sec Sodium (137-145) mmol/L Potassium (3.5-5.1) mmol/L Chloride (98-107) mmol/L Carbon Dioxide (22-30) mmol/L Anion Gap mmol/L BUN (9-20) mg/dL Creatinine (0.66-1.25) mg/dL Est GFR (CKD-EPI)AfAm (>60 ml/min/1.73 sqM) Est GFR (CKD-EPI)NonAf (>60 ml/min/1.73 sqM) Glucose (74-99) mg/dL Calcium (8.4-10.2) mg/dL Total Bilirubin (0.2-1.3) mg/dL AST (17-59) U/L ALT (4-49) U/L Alkaline Phosphatase (38-126) U/L Total Protein (6.3-8.2) g/dL Albumin (3.5-5.0) g/dL Amylase (30-110) U/L Lipase (23-300) U/L Stool Occult Blood Negative (Negative) Serum Alcohol mg/dL Disposition Clinical Impression: Hypokalemia, Alcohol intoxication Disposition: ADMITTED IP TO THIS HOSP Is patient prescribed a controlled substance at d/c from ED?: No Referrals: James Meza Jr, [Primary Care Provider] - 1-2 days Time of Disposition: 20:11
[2024-11-02] MEDS: PANTOPRAZOLE 40 MG/10 ML VIAL IVP STA (16:14)
[2024-11-02] MEDS: SODIUM CHLORIDE 0.9% 1,000 ML IV SCH (16:14)
[2024-11-02 16:17] LABS: Basophils # (A) 0.17 10*3/uL (0.00-0.10); Basophils % (A) 2.7 %; Eosinophils # (A) 0.05 10*3/uL (0.04-0.35); Eosinophils % (A) 0.8 %; HCT 35.9 % (39.6-50.0); HGB 12.5 g/dL (13.0-17.0); Lymphocytes # (A) 1.12 10*3/uL (0.90-5.00); MCH 35.5 pg (27.0-32.0); MCHC 34.8 g/dL (32.0-37.0); Mean Platelet Volume 10.9 fL (9.5-12.2); Monocytes # (A) 0.99 10*3/uL (0.20-1.00); Monocytes % (A) 15.9 %; Neutrophils # (A) 3.88 10*3/uL (1.80-7.70); Neutrophils % (A) 62.3 %; RBC 3.52 10*6/uL (4.40-5.60); RDW 14.8 % (11.5-14.5); WBC 6.23 10*3/uL (4.50-10.00)
--- NOTE | 2024-11-02 16:26 | XR ---
EXAMINATION TYPE: XR KUB DATE OF EXAM: 11/02/2024 4:08 PM COMPARISON: 11/21/2019. CLINICAL INDICATION: Male, 49 years old with history of abdominal pain; TECHNIQUE: One radiographic view of the abdomen was obtained. FINDINGS: The bowel gas pattern is nonspecific without dilated loops of small or large bowel. . Fecal material and gas are demonstrated throughout the colon and rectum. There is no evidence for organome julianne or pneumoperitoneum. No acute osseous process. No abnormal calcifications are present. Cholecy stectomy clips. IMPRESSION: Nonspecific bowel gas pattern without radiographic evidence for acute process. [facility], , 11/02/2024 4:24 PM
[2024-11-02 16:29] LABS: ALT 57 U/L (4-49); AST 224 U/L (17-59); African American GFR (CKD) >90 (>60 ml/min/1.73 sqM); Albumin 3.7 g/dL (3.5-5.0); Alkaline Phosphatase 192 U/L (38-126); Amylase 78 U/L (30-110); Anion Gap 13 mmol/L; Blood Urea Nitrogen 9 mg/dL (9-20); Calcium 8.6 mg/dL (8.4-10.2); Carbon Dioxide 22 mmol/L (22-30); Chloride 110 mmol/L (98-107); Glucose 117 mg/dL (74-99); Lipase 478 U/L (23-300); Non-African American GFR(CKD) >90 (>60 ml/min/1.73 sqM); Sodium 145 mmol/L (137-145); Total Bilirubin 3.8 mg/dL (0.2-1.3)
[2024-11-02 16:30] LABS: Potassium 2.6 mmol/L (3.5-5.1)
[2024-11-02 16:36] LABS: INR 1.2 (<1.2); Partial Thromboplastin Time 26.2 sec (22.0-30.0); Prothrombin Time 12.8 sec (10.0-12.5)
[2024-11-02 16:41] LABS: Alcohol 371 mg/dL
[2024-11-02 17:01] LABS: RBC Morphology Normal
[2024-11-02 17:02] LABS: Platelet Count 53 10*3/uL (140-440)
[2024-11-02] MEDS: POTASSIUM CHLORIDE 20 MEQ in WATER FOR INJECTION 1 100ML.BAG IVPB STA (17:17)
--- NOTE | 2024-11-02 18:40 | CT ---
INDICATION: Patient age:Male; 49 years old; Reason for study: gi bleed; PHH. COMPARISON: KUB radiograph 11/02/2024, CT abdomen and pelvis 07/11/2024, 12/09/2023 TECHNIQUE: Multiple thin slice sub-millimeter images were obtained through the abdomen and pelvis bef ore and after administration of contrast. Patient was given Isovue 370, 75 cc intravenously. 3-D re constructed images and maximum intensity projection images were obtained of the abdomen and pelvis. One or more CT dose reduction strategies were utilized during this examination. DLP administered was 1574.6 mGycm. FINDINGS: CTA Abdomen and pelvis: The abdominal aorta does not demonstrate aneurysmal dilatation. Mild atheros clerotic plaquing is identified within the abdominal aorta. The origins of the superior mesenteric a rtery, renal arteries, inferior mesenteric artery, and celiac axis are patent. The iliac vessels are normal in morphology. A single renal artery is noted bilaterally. VISCERA ABDOMEN: Liver: Surface nodularity with diffusely heterogenous hypoattenuating appearance. Multiple collateral vessels in the right paracolic gutter space. Gallbladder and Bile ducts: Gallbladder surgically absent. No biliary ductal dilatation. Pancreas: Unremarkable. Spleen: Unremarkable. Adrenal glands: Unremarkable. Kidneys and Ureters: No hydronephrosis. Approximately 3 nonobstructing right renal calculi with large st in the upper pole measuring up to 3 mm. Nonobstructing left renal lower pole calculi with largest measuring up to 4 mm. The kidneys enhance symmetrically. Bilateral renal subcentimeter low-density le sions which are too small to characterize but likely represent cysts. No follow-up recommended. PELVIS Bladder: Unremarkable. Reproductive: Unremarkable. ABDOMEN & PELVIS Stomach and Bowel: No evidence of bowel obstruction or bowel wall thickening. Postsurgical changes wi th anastomosis identified involving the bowel in the left lower quadrant. Peritoneum: No evidence of pneumoperitoneum, free fluid, or adenopathy. Vasculature: Unremarkable. No aortic aneurysm. Enlarged gastrohepatic collateral vessels. Portal dior ous system is patent. Paraesophageal collateral vessels identified. Musculoskeletal: The osseous structures appear intact. Mild multilevel degenerative disc disease. LOWER CHEST: No significant findings. IMPRESSION: 1. No evidence of active GI bleed. 2. Marked hepatic cirrhosis and steatosis with findings of portal venous hypertension. 3. Nonobstructing bilateral renal calculi. [facility], , 11/02/2024 6:37 PM
[2024-11-02] MEDS: HYDROmorphone 1 MG/ML 1 ML SYRINGE IVP STA (18:54)
[2024-11-02] MEDS ORDERED: Potassium Replacement Protocol 1 EACH MISC MISCELLANE PRN (19:22)
[2024-11-02] MEDS: POTASSIUM CHLORIDE ER 20 MEQ TAB.ER PO STA (19:52)
[2024-11-02] MEDS ORDERED: NALOXONE 0.4 MG/ML 1 ML VIAL IV PRN (20:11)
[2024-11-02] MEDS ORDERED: LORazepam 1 MG/0.5 ML VIAL IV PRN (20:12)
[2024-11-02] MEDS ORDERED: LORazepam 0.5 MG TAB PO PRN (20:12)
[2024-11-02] MEDS ORDERED: NICOTINE 21MG/24HR PATCH TRANSDERM PRN (20:13)
[2024-11-02 20:34] LABS: Appearance,Urine Clear (Clear); Bilirubin,Urine Negative (Negative); Blood,Urine Small (Negative); Color,Urine Yellow; Glucose,Urine (UA) Negative (Negative); Ketones,Urine Negative (Negative); Leukocyte Esterase,Urine Negative (Negative); Nitrite,Urine Negative (Negative); Protein,Urine Negative (Negative); RBC,Urine 15 /hpf (0-5); Specific Gravity,Urine 1.047 (1.001-1.035); WBC,Urine 1 /hpf (0-5)
[2024-11-02] MEDS: LORazepam 1 MG TAB PO PRN ×2 (21:01→23:52)
[2024-11-02] MEDS: THIAMINE 100 MG/ML 2 ML VIAL IM STA (21:05)
[2024-11-02] MEDS: LACTULOSE 20 GM/30 ML CUP PO SCH (21:56)
[2024-11-02] MEDS: ONDANSETRON 4 MG/2 ML VIAL IVP PRN (23:51)
[2024-11-03 01:36] LABS: Influenza A Not Detected (Not Detectd); Influenza B Not Detected (Not Detectd); RSV Not Detected (Not Detectd)
[2024-11-03] MEDS: SYMBICORT 160-4.5 MCG INHALER INHALATION SCH (08:27)
[2024-11-03] MEDS: TIOTROPIUM 2.5 MCG INHALER INHALATION SCH (08:27)
[2024-11-03] MEDS: PANTOPRAZOLE 40 MG/10 ML VIAL IV SCH (08:35)
[2024-11-03] MEDS: THIAMINE 100 MG TAB PO SCH (08:35)
[2024-11-03] MEDS: atenoloL 25 MG TAB PO SCH (08:35)
[2024-11-03] MEDS: MAGNESIUM OXIDE 400 MG TAB PO SCH (08:35)
[2024-11-03] MEDS: MULTIVITAMINS, THERA 1 EACH TAB PO SCH (08:35)
[2024-11-03] MEDS: LORazepam 1 MG TAB PO PRN (08:39)
[2024-11-03 08:55] LABS: Blood Urea Nitrogen 8.1 mg/dL (9.0-27.0); Carbon Dioxide 19.2 mmol/L (21.6-31.8); Chloride 109 mmol/L (96-109); Glucose 95 mg/dL (70-110); Potassium 3.3 mmol/L (3.5-5.5); Sodium 143 mmol/L (135-145)
[2024-11-03] MEDS ORDERED: NON FORMULARY DRUG (Potassium Gluconate [Potassium Gluconate] 99 MG Tablet) PO SCH (09:00)
[2024-11-03 09:15] LABS: HCT 35.8 % (39.6-50.0); HGB 11.6 g/dL (13.0-17.0); Immature Platelet Fraction 7.1 % (1.1-6.1); MCH 34.5 pg (27.0-32.0); MCHC 32.4 g/dL (32.0-37.0); MCV 106.5 FL (80.0-97.0); Mean Platelet Volume 12.4 FL (9.5-12.2); NRBC Per 100 WBC 0 X 10*3/uL (0.00-0.01); RBC 3.36 X 10*6/uL (4.40-5.60); RDW 15.1 % (11.5-14.5); WBC 5.89 X 10*3/uL (4.50-10.00)
[2024-11-03] MEDS: POTASSIUM CHLORIDE ER 20 MEQ TAB.ER PO SCH (10:45)
[2024-11-03 10:51] LABS: Basophils # (A) 0.17 X 10*3/uL (0.00-0.10); Basophils % (A) 2.9 %; Eosinophils # (A) 0.05 X 10*3/uL (0.04-0.35); Eosinophils % (A) 0.8 %; Lymphocytes # (A) 0.58 X 10*3/uL (0.90-5.00); Lymphocytes % (A) 9.8 %; Macrocytosis (M) 2+ (None Seen); Monocytes # (A) 0.81 X 10*3/uL (0.20-1.00); Monocytes % (A) 13.8 %; Neutrophils # (A) 4.24 X 10*3/uL (1.80-7.70); Platelet Count 41 X 10*3/uL (140-440)
--- NOTE | 2024-11-03 11:23 | P.HPIM ---
History of Present Illness H&P Date: 11/03/24 Chief Complaint: Alcohol intoxication This is a 49-year-old male with past medical history significant for polysubstance abuse including alcohol , cocaine heroin marijuana, pancreatitis, chronic alcoholic hepatitis ,ascites with multiple paracentesis, esophageal varices with multiple banding's, chronic anemia, ventral hernia repair, bipolar, depression, anxiety, multiple other medical issues presented to the ER with complaints of blood in his urine and stool over the last week, epigastric pain with decreased diet intake. Denies nausea vomiting. Hemoccult negative, CTA negative. KUB nonacute. serum alcohol 371, last drink yesterday. Potassium 2.6, received supplementation, repeat level 3.3. Afebrile, normal WBC, hemoglobin 9.6, platelets 41, MCV 106.5, BUN 8.1, creatinine 0.6, glucose 95, magnesium 1.2. T. bili 3.8, AST 224, ALT 57, alk phos 192, lipase 478. UA negative. Viral studies negative. EKG reported sinus rhythm. CIWA score currently 11. Review of Systems ROS Statement: Those systems with pertinent positive or pertinent negative responses have been documented in the HPI. ROS Other: All systems not noted in ROS Statement are negative. Past Medical History Past Medical History: Asthma, Cancer, GI Bleed, Liver Disease, Pneumonia, Renal Disease, Skin Disorder Additional Past Medical History / Comment(s): Liver cirrhosis, portal HTN, abdominal ascities, pancreatitis, upper and lower GI bleeds, bleeding ulcers, esophageal varicies-banded, thrombocytopemia, chronic anemia, gallstones, nephrolithiasis/hematuria, L inguinal hernia, psoriasis; paracentesis, umbilical hernia, left foot injury, pancreatitis History of Any Multi-Drug Resistant Organisms: MRSA Date of last positivie culture/infection: 12/09/13 MDRO Source:: Right first finger Past Surgical History: Appendectomy, Cholecystectomy, Hernia Repair, Orthopedic Surgery Additional Past Surgical History / Comment(s): EGDs/varicies banding/colonoscopy, paracentesis, right hand tendon repair, right knee arthros copy, cystoscopy for kidney stone removal, right hand ring finger surgery. surgery for umbilical hernia, Hernia repair on 10/13 at [facility]. Past Anesthesia/Blood Transfusion Reactions: Previous Problems w/ Anesthesia, Motion Sickness Additional Past Anesthesia/Blood Transfusion Reaction / Comment(s): Woke up during scope procedure. Past Psychological History: Anxiety, Bipolar, Depression, PTSD Additional Psychological History / Comment(s): He uses no assistive device. He does not drive, uses bus system. Smoking Status: Current every day smoker Past Alcohol Use History: None Reported Additional Past Alcohol Use History / Comment(s): Pt states he started smoking in 1984- states he is back up to a ppd. he staes he quit drinking 4 months ago and recently drank a fifth las tnight due to his pain. Past Drug Use History: None Reported Additional Drug Use History / Comment(s): pt stats he last smoked marijuana on 10/28/19 and last did cocaine on 10/25/19. - Past Family History Mother Family Medical History: No Reported History Additional Family Medical History / Comment(s): Mother has health issues from a MVA-pt did not elaborate. Father Family Medical History: Vascular Disorder Additional Family Medical History / Comment(s): Prostate issues grandpa. Brain aneurysm father. Medications and Allergies Home Medications Medication Instructions Recorded Confirmed Type Lactulose 20 gm PO TID 11/10/23 11/02/24 History Multivit-Mins/Iron/Folic/Lycop 1 tab PO DAILY 11/29/23 11/02/24 History [Centrum Men's Tablet] Magnesium Oxide [Mag-Ox] 400 mg PO DAILY 06/21/24 11/02/24 History Potassium Gluconate 99 mg PO DAILY 06/21/24 11/02/24 History Pantoprazole Sodium [Protonix] 40 mg PO BID #60 tab 07/14/24 11/02/24 Rx HYDROcodone/APAP 10-325MG [[place] 1 tab PO TID PRN 30 Days #90 tab 09/13/24 11/02/24 Rx 10-325] Albuterol Sulfate [Albuterol 1 puff INHALATION RT-Q4H PRN 11/02/24 11/02/24 History Sulfate Hfa] Fluticasone/Umeclidin/Vilanter 1 puff INHALATION RT-DAILY 11/02/24 11/02/24 History [Trelegy Ellipta 100-62.5-25] Nicotine 21Mg/24Hr Patch [Habitrol] 1 patch TRANSDERM DAILY PRN 11/02/24 11/02/24 History atenoloL [Tenormin] 25 mg PO DAILY 11/02/24 11/02/24 History Allergies Allergy/AdvReac Type Severity Reaction Status Date / Time No Known Allergies Allergy Verified 11/02/24 18:42 Physical Exam Vitals: Vital Signs Temp Pulse Pulse Resp BP BP Pulse Ox 11/03/24 07:46 97.9 F 90 20 138/70 94 L 11/03/24 03:11 63 16 123/72 93 L 11/02/24 23:28 98.1 F 68 18 131/77 92 L 11/02/24 22:18 98.4 F 77 20 145/92 93 L 11/02/24 21:06 98 F 61 18 130/88 95 11/02/24 20:39 62 20 11/02/24 15:42 98.2 F 79 17 150/92 98 Intake and Output 11/02/24 11/03/24 11/03/24 22:59 06:59 14:59 Intake Total 120 Output Total 400 800 Balance -400 -680 Intake: Oral 120 Output: Urine 400 800 Other: Weight 84.822 kg General: [Patient awake, alert and oriented times 2, sitting up in bed. no acute distress. HEENT: [PERRL. EOMI. sclera nonicteric .no pharyngeal erythema or exudate.] Neck: Supple, no JVD Cardiac: [Heart regular in rate and rhythm. No S3. No S4. No clicks, rubs. No murmur.] Lungs: Unlabored, equal air entry, essentially clear with bilateral bases diminished] Abdomen: Soft, nondistended, minimal diffuse tenderness, no guarding, no rigidity, positive bowel sounds Extremes: [No edema no cyanosis no claudication normal pulses] Skin: [No jaundice, rash. warm and dry. ] Neurologic: CN II - XII grossly intact.] Results CBC & Chem 7: 11/03/24 11:44 11/03/24 11:44 Labs: Abnormal Lab Results - Last 24 Hours (Table) 11/02/24 11/02/24 11/02/24 Range/Units 15:59 15:59 15:59 RBC 3.52 L (4.40-5.60) 10*6/uL Hgb 12.5 L (13.0-17.0) g/dL Hct 35.9 L (39.6-50.0) % MCV 102.0 H (80.0-97.0) fL MCH 35.5 H (27.0-32.0) pg RDW (11.5-14.5) % Plt Count 53 L (140-440) 10*3/uL MPV (9.5-12.2) FL Lymphocytes # (0.90-5.00) X 10*3/uL Basophils # 0.17 H (0.00-0.10) 10*3/uL Immature Plt Fraction (1.1-6.1) % Macrocytosis (manual) (None Seen) PT 12.8 H (10.0-12.5) sec INR 1.2 H (<1.2) Potassium 2.6 L* (3.5-5.1) mmol/L Chloride 110 H (98-107) mmol/L Carbon Dioxide (21.6-31.8) mmol/L Anion Gap (4.00-12.00) mmol/L BUN (9.0-27.0) mg/dL Creatinine 0.56 L (0.66-1.25) mg/dL Glucose 117 H (74-99) mg/dL Calcium (8.7-10.3) mg/dL Magnesium (1.5-2.4) mg/dL Total Bilirubin 3.8 H (0.2-1.3) mg/dL AST 224 H (17-59) U/L ALT 57 H (4-49) U/L Alkaline Phosphatase 192 H (38-126) U/L Lipase 478 H (23-300) U/L Ur Specific [place] (1.001-1.035) Urine Blood (Negative) Urine RBC (0-5) /hpf Serum Alcohol 371 H* mg/dL 11/02/24 11/03/24 11/03/24 Range/Units 19:53 01:00 01:00 RBC 3.36 L (4.40-5.60) 10*6/uL Hgb 11.6 L (13.0-17.0) g/dL Hct 35.8 L (39.6-50.0) % MCV 106.5 H (80.0-97.0) fL MCH 34.5 H (27.0-32.0) pg RDW 15.1 H (11.5-14.5) % Plt Count 41 A* (140-440) 10*3/uL MPV 12.4 H (9.5-12.2) FL Lymphocytes # 0.58 L (0.90-5.00) X 10*3/uL Basophils # 0.17 H (0.00-0.10) 10*3/uL Immature Plt Fraction 7.1 H (1.1-6.1) % Macrocytosis (manual) 2+ A (None Seen) PT (10.0-12.5) sec INR (<1.2) Potassium 3.3 L (3.5-5.1) mmol/L Chloride (98-107) mmol/L Carbon Dioxide 19.2 L (21.6-31.8) mmol/L Anion Gap 14.80 H (4.00-12.00) mmol/L BUN 8.1 L (9.0-27.0) mg/dL Creatinine (0.66-1.25) mg/dL Glucose (74-99) mg/dL Calcium 8.0 L (8.7-10.3) mg/dL Magnesium (1.5-2.4) mg/dL Total Bilirubin (0.2-1.3) mg/dL AST (17-59) U/L ALT (4-49) U/L Alkaline Phosphatase (38-126) U/L Lipase (23-300) U/L Ur Specific [place] 1.047 H (1.001-1.035) Urine Blood Small H (Negative) Urine RBC 15 H (0-5) /hpf Serum Alcohol mg/dL 11/03/ Range/Units 01:00 RBC (4.40-5.60) 10*6/uL Hgb (13.0-17.0) g/dL Hct (39.6-50.0) % MCV (80.0-97.0) fL MCH (27.0-32.0) pg RDW (11.5-14.5) % Plt Count (140-440) 10*3/uL MPV (9.5-12.2) FL Lymphocytes # (0.90-5.00) X 10*3/uL Basophils # (0.00-0.10) 10*3/uL Immature Plt Fraction (1.1-6.1) % Macrocytosis (manual) (None Seen) PT (10.0-12.5) sec INR (<1.2) Potassium (3.5-5.1) mmol/L Chloride (98-107) mmol/L Carbon Dioxide (21.6-31.8) mmol/L Anion Gap (4.00-12.00) mmol/L BUN (9.0-27.0) mg/dL Creatinine (0.66-1.25) mg/dL Glucose (74-99) mg/dL Calcium (8.7-10.3) mg/dL Magnesium 1.2 L (1.5-2.4) mg/dL Total Bilirubin (0.2-1.3) mg/dL AST (17-59) U/L ALT (4-49) U/L Alkaline Phosphatase (38-126) U/L Lipase (23-300) U/L Ur Specific [place] (1.001-1.035) Urine Blood (Negative) Urine RBC (0-5) /hpf Serum Alcohol mg/dL Thrombosis Risk Factor Assmnt - Choose All That Apply Each Factor Represents 1 point: Varicose veins Other congenital or acquired thrombophilia - If yes, enter type in comment: No Thrombosis Risk Factor Assessment Total Risk Factor Score: 1 Thrombosis Risk Factor Assessment Level: Low Risk Assessment and Plan Assessment: Alcohol dependence, intoxicated. Serum alcohol level 371 Acute thrombocytopenia Hypomagnesemia Hypokalemia Pancreatitis, chronic History of esophageal varices with multiple banding Elevated LFTs in a patient with history of alcoholic cirrhosis of liver, chronic alcoholic hepatitis Portal hypertension History of ascites with multiple paracentesis History of polysubstance abuse including cocaine, heroin and marijuana Noncompliance Chronic nicotine dependence History of nephrolithiasis, chronic anemia Plan: Continue on current medication regimen ,monitoring and symptomatic treatment. Ammonia level added to prior labs.CIWA protocol. IV fluid hydration. Electrolyte supplementation as ordered. Continue lactulose. PPI for GI prophylaxis ordered .nicotine patch ordered. counseled on polysubstance abuse with alcohol abstinence reinforced. Stat repeat labs ordered. Discharge planning in progress pending CIWA score less than 6. The impression and plan of care has been dictated as directed. : I performed a history and examination of this patient, discussed the same with the dictator. I agree with the dictator's note ,documented as a scribe. Any additional findings or plans will be noted.
[2024-11-03] MEDS ORDERED: Magnesium Replacement Protocol 1 EACH MISC MISCELLANE PRN (11:36)
[2024-11-03] MEDS ORDERED: Potassium Replacement Protocol 1 EACH MISC MISCELLANE PRN (11:37)
[2024-11-03 12:13] LABS: Basophils % (A) 2.2 %; Eosinophils # (A) 0.06 10*3/uL (0.04-0.35); Eosinophils % (A) 1.3 %; HCT 31.1 % (39.6-50.0); HGB 10.5 g/dL (13.0-17.0); Lymphocytes # (A) 0.44 10*3/uL (0.90-5.00); Lymphocytes % (A) 9.6 %; MCH 35.2 pg (27.0-32.0); MCHC 33.8 g/dL (32.0-37.0); MCV 104.4 fL (80.0-97.0); Monocytes % (A) 15.2 %; Neutrophils # (A) 3.29 10*3/uL (1.80-7.70); Neutrophils % (A) 71.5 %; RBC 2.98 10*6/uL (4.40-5.60); RDW 14.6 % (11.5-14.5)
[2024-11-03 12:23] LABS: INR 1.3 (<1.2); Prothrombin Time 13.8 sec (10.0-12.5)
[2024-11-03 12:26] LABS: African American GFR (CKD) >90 (>60 ml/min/1.73 sqM); Anion Gap 9 mmol/L; Blood Urea Nitrogen 8 mg/dL (9-20); Calcium 7.6 mg/dL (8.4-10.2); Carbon Dioxide 21 mmol/L (22-30); Chloride 110 mmol/L (98-107); Glucose 93 mg/dL (74-99); Non-African American GFR(CKD) >90 (>60 ml/min/1.73 sqM); Sodium 140 mmol/L (137-145)
[2024-11-03 12:41] LABS: Platelet Count 28 10*3/uL (140-440); RBC Morphology Normal
[2024-11-03 12:46] LABS: Magnesium 0.9 mg/dL (1.6-2.3)
[2024-11-03] MEDS: MAGNESIUM SULFATE-D5W PMX 1 GM in DEXTROSE/WATER 1 100ML.BAG IVPB SCH (12:51)
[2024-11-03 14:02] VITALS: BMI 25.3
[2024-11-04 10:11] LABS: Magnesium 1.5 mg/dL (1.5-2.4)
[2024-11-04 10:21] LABS: Blood Urea Nitrogen 7.2 mg/dL (9.0-27.0); Carbon Dioxide 19.7 mmol/L (21.6-31.8); Chloride 108 mmol/L (96-109); Glucose 117 mg/dL (70-110); Sodium 139 mmol/L (135-145)
[2024-11-04 10:24] LABS: Basophils # (A) 0.07 X 10*3/uL (0.00-0.10); Basophils % (A) 1.9 %; Eosinophils # (A) 0.07 X 10*3/uL (0.04-0.35); Eosinophils % (A) 1.9 %; HCT 32.1 % (39.6-50.0); HGB 10.6 g/dL (13.0-17.0); Immature Platelet Fraction 10.6 % (1.1-6.1); Lymphocytes # (A) 0.44 X 10*3/uL (0.90-5.00); Lymphocytes % (A) 11.9 %; MCH 34.3 pg (27.0-32.0); MCV 103.9 FL (80.0-97.0); Mean Platelet Volume 12.9 FL (9.5-12.2); Monocytes % (A) 16.2 %; NRBC Per 100 WBC 0 X 10*3/uL (0.00-0.01); Neutrophils # (A) 2.49 X 10*3/uL (1.80-7.70); Neutrophils % (A) 67.3 %; Platelet Count 22 X 10*3/uL (140-440); RBC 3.09 X 10*6/uL (4.40-5.60); RDW 14.7 % (11.5-14.5)
--- NOTE | 2024-11-04 10:44 | P.PN ---
Subjective November 04, 2024: Romie is a 49-year-old alcoholic well-known to the practice came to emergency room drunk he had some bleeding he indicates from with bowel movement bright red blood small amount and then some hematuria he was found to otherwise have no active bleeding at evidence. He did an alcohol level over 300 at that time. He reports drinking vodka regularly he has no alcoholic cirrhosis and chronic pancreatitis he is currently on CIWA protocol. This morning he was easily arousable staff report his CIWA scale is gone down from 10 or 11 down to 8. Vital signs are stable. Labs show hemoglobin is stable however his platelets have dropped to 22 today potassium is 3.0 again magnesium is now 1.5. Ammonia level was 84 yesterday but is having no active confusion or evidence of metabolic encephalopathy Objective - Vital Signs Vital signs: Vital Signs Temp 98.2 F 11/04/24 08:00 Pulse 70 11/04/24 08:00 Resp 18 11/04/24 08:00 BP 135/78 11/04/24 08:00 Pulse Ox 95 11/04/24 08:00 FiO2 Intake & Output 11/03/24 11/04/24 11/04/24 18:59 06:59 18:59 Intake Total 2540 710 480 Output Total 2100 600 Balance 440 110 480 Weight 84.822 kg Intake: Intake, IV Titration 1340 Amount Magnesium Sulfate-D5w Pmx 300 1 gm In Dextrose/Water 1 100ml.bag @ 100 mls/hr IVPB Q1H RADHA Rx#: [id number] Sodium Chloride 0.9% 1, 1040 000 ml @ 130 mls/hr IV . Q7H42M RADHA Rx#:[id number] Oral 1200 710 480 Output: Urine 2100 600 Other: Voiding Method Urinal # Bowel Movements 1 - Exam General: Disheveled 49-year-old male known to the practice who looks his stated age, slight tremor with trying to sit himself up. Neck: The neck is supple, there is no thyromegaly, lymphadenopathy, tenderness or JVD. Cardiovascular: S1S2 is normal, There is a regular rate and rhythm. No murmur, rub or gallop is appreciated. Respiratory: Lungs are clear to auscultation bilaterally, respirations are non-labored, breath sounds are equal. Gastrointestinal: Soft, non-distended, non-tender abdomen without masses or organomegaly noted. There is no rebound or guarding present. Bowel sounds are unremarkable. Musculoskeletal: Normal ROM, no tenderness, There is no pedal edema. There is no calf tenderness or swelling. No cords were appreciated. Neurological: CN II-XII intact, there are no obvious motor or sensory deficits. Coordination appears grossly intact. Speech is normal. He is obviously fatigued most likely from the Ativan he has been receiving. Skin: Skin is warm and dry and no rashes or lesions are noted. - Labs CBC & Chem 7: 11/04/24 04:32 11/04/24 04:32 Labs: Abnormal Lab Results - Last 24 Hours (Table) 11/03/24 11/03/24 11/03/24 Range/Units 01:00 01:00 11:44 WBC (4.50-10.00) X 10*3/uL RBC (4.40-5.60) 10*6/uL Hgb (13.0-17.0) g/dL Hct (39.6-50.0) % MCV (80.0-97.0) fL MCH (27.0-32.0) pg RDW (11.5-14.5) % Plt Count 41 A* (140-440) X 10*3/uL MPV (9.5-12.2) FL Lymphocytes # 0.58 L (0.90-5.00) X 10*3/uL Basophils # 0.17 H (0.00-0.10) X 10*3/uL Immature Plt Fraction (1.1-6.1) % Macrocytosis (manual) 2+ A (None Seen) PT 13.8 H (10.0-12.5) sec INR 1.3 H (<1.2) Potassium (3.5-5.1) mmol/L Chloride (98-107) mmol/L Carbon Dioxide (22-30) mmol/L BUN (9-20) mg/dL Creatinine (0.66-1.25) mg/dL Glucose (70-110) mg/dL Calcium (8.4-10.2) mg/dL Magnesium 1.2 L (1.5-2.4) mg/dL Ammonia (<30) umol/L 11/03/24 11/03/24 11/03/24 Range/Units 11:44 11:44 12:02 WBC (4.50-10.00) X 10*3/uL RBC 2.98 L (4.40-5.60) 10*6/uL Hgb 10.5 L (13.0-17.0) g/dL Hct 31.1 L (39.6-50.0) % MCV 104.4 H (80.0-97.0) fL MCH 35.2 H (27.0-32.0) pg RDW 14.6 H (11.5-14.5) % Plt Count 28 L (140-440) X 10*3/uL MPV (9.5-12.2) FL Lymphocytes # 0.44 L (0.90-5.00) X 10*3/uL Basophils # (0.00-0.10) X 10*3/uL Immature Plt Fraction (1.1-6.1) % Macrocytosis (manual) (None Seen) PT (10.0-12.5) sec INR (<1.2) Potassium 3.0 L (3.5-5.1) mmol/L Chloride 110 H (98-107) mmol/L Carbon Dioxide 21 L (22-30) mmol/L BUN 8 L (9-20) mg/dL Creatinine 0.62 L (0.66-1.25) mg/dL Glucose (70-110) mg/dL Calcium 7.6 L (8.4-10.2) mg/dL Magnesium 0.9 L* (1.5-2.4) mg/dL Ammonia 84 H (<30) umol/L 11/04/24 11/04/24 Range/Units 04:32 04:32 WBC 3.70 L (4.50-10.00) X 10*3/uL RBC 3.09 L (4.40-5.60) 10*6/uL Hgb 10.6 L (13.0-17.0) g/dL Hct 32.1 L (39.6-50.0) % MCV 103.9 H (80.0-97.0) fL MCH 34.3 H (27.0-32.0) pg RDW 14.7 H (11.5-14.5) % Plt Count 22 A* (140-440) X 10*3/uL MPV 12.9 H (9.5-12.2) FL Lymphocytes # 0.44 L (0.90-5.00) X 10*3/uL Basophils # (0.00-0.10) X 10*3/uL Immature Plt Fraction 10.6 H (1.1-6.1) % Macrocytosis (manual) (None Seen) PT (10.0-12.5) sec INR (<1.2) Potassium 3.0 L (3.5-5.1) mmol/L Chloride (98-107) mmol/L Carbon Dioxide 19.7 L (22-30) mmol/L BUN 7.2 L (9-20) mg/dL Creatinine (0.66-1.25) mg/dL Glucose 117 H (70-110) mg/dL Calcium 7.0 L (8.4-10.2) mg/dL Magnesium (1.5-2.4) mg/dL Ammonia (<30) umol/L Assessment and Plan (1) Hypokalemia Current Visit: Yes Status: Acute Code(s): E87.6 - HYPOKALEMIA SNOMED Code(s): 30003611 (2) Alcohol intoxication Current Visit: Yes Status: Acute Code(s): F10.929 - ALCOHOL USE, UNSPECIFIED WITH INTOXICATION, UNSPECIFIED SNOMED Code(s): 15535188 (3) Hypokalemia Current Visit: Yes Status: Acute Code(s): E87.6 - HYPOKALEMIA SNOMED Code(s): 86991883 (4) Abdominal pain Current Visit: No Status: Acute Code(s): R10.9 - UNSPECIFIED ABDOMINAL PAIN SNOMED Code(s): 84726088 (5) Alcoholic cirrhosis of liver Current Visit: No Status: Acute Code(s): K70.30 - ALCOHOLIC CIRRHOSIS OF LIVER WITHOUT ASCITES SNOMED Code(s): 912857655 (6) History of chronic pancreatitis Current Visit: No Status: Acute Code(s): Z87.19 - PERSONAL HISTORY OF OTHER DISEASES OF THE DIGESTIVE SYSTEM SNOMED Code(s): 80938908572755 (7) Hyperammonemia Current Visit: No Status: Acute Code(s): E72.20 - DISORDER OF UREA CYCLE METABOLISM, UNSPECIFIED SNOMED Code(s): 7777611 (8) Hypomagnesemia Current Visit: No Status: Acute Code(s): E83.42 - HYPOMAGNESEMIA SNOMED Code(s): 933541678 (9) Macrocytic anemia Current Visit: No Status: Acute Code(s): D53.9 - NUTRITIONAL ANEMIA, UNSPECIFIED SNOMED Code(s): 68337755 (10) Polysubstance abuse Current Visit: No Status: Acute Code(s): F19.10 - OTHER PSYCHOACTIVE SUBSTANCE ABUSE, UNCOMPLICATED SNOMED Code(s): 278554593 (11) Thrombocytopenia Current Visit: No Status: Acute Code(s): D69.6 - THROMBOCYTOPENIA, UNSPECIFIED SNOMED Code(s): 556767183 (12) Tobacco abuse Current Visit: No Status: Acute Code(s): Z72.0 - TOBACCO USE SNOMED Code(s): 085223569 (13) Coagulopathy Current Visit: No Status: Chronic Code(s): D68.9 - COAGULATION DEFECT, UNSPECIFIED SNOMED Code(s): 16566964 Plan: Will continue his course continue his treatment will continue magnesium potassium replacement CIWA protocol, monitor his blood count, multivitamin,, repeat labs in a.m., he will be reevaluated in the next 24
[2024-11-04] MEDS: POTASSIUM CHLORIDE ER 20 MEQ TAB.ER PO SCH ×3 (11:05→23:21)
[2024-11-04] MEDS: MAGNESIUM SULFATE-D5W PMX 1 GM in DEXTROSE/WATER 1 100ML.BAG IVPB SCH (11:06)
[2024-11-04] MEDS ORDERED: Potassium Replacement Protocol 1 EACH MISC MISCELLANE PRN (22:57)
[2024-11-05 05:59] LABS: ALT 47 U/L (4-49); AST 170 U/L (17-59); African American GFR (CKD) >90 (>60 ml/min/1.73 sqM); Albumin 2.8 g/dL (3.5-5.0); Albumin/Globulin Ratio 0.9; Alkaline Phosphatase 158 U/L (38-126); Anion Gap 10 mmol/L; Blood Urea Nitrogen 4 mg/dL (9-20); Calcium 7.7 mg/dL (8.4-10.2); Carbon Dioxide 17 mmol/L (22-30); Chloride 112 mmol/L (98-107); Glucose 120 mg/dL (74-99); Magnesium 1.4 mg/dL (1.6-2.3); Non-African American GFR(CKD) >90 (>60 ml/min/1.73 sqM); Potassium 3.8 mmol/L (3.5-5.1); Sodium 139 mmol/L (137-145); Total Protein 5.8 g/dL (6.3-8.2)
[2024-11-05] MEDS: PANTOPRAZOLE 40 MG TABLET PO SCH (08:48)
[2024-11-05 10:38] LABS: Basophils # (A) 0.08 X 10*3/uL (0.00-0.10); Basophils % (A) 1.7 %; Eosinophils # (A) 0.11 X 10*3/uL (0.04-0.35); Eosinophils % (A) 2.4 %; HCT 33.3 % (39.6-50.0); HGB 10.9 g/dL (13.0-17.0); Immature Platelet Fraction 12.7 % (1.1-6.1); Lymphocytes # (A) 0.45 X 10*3/uL (0.90-5.00); Lymphocytes % (A) 9.7 %; MCH 34.4 pg (27.0-32.0); MCHC 32.7 g/dL (32.0-37.0); Mean Platelet Volume 13.8 FL (9.5-12.2); Monocytes # (A) 0.67 X 10*3/uL (0.20-1.00); Monocytes % (A) 14.4 %; NRBC Per 100 WBC 0 X 10*3/uL (0.00-0.01); Neutrophils # (A) 3.29 X 10*3/uL (1.80-7.70); Neutrophils % (A) 70.9 %; Platelet Count 25 X 10*3/uL (140-440); RBC 3.17 X 10*6/uL (4.40-5.60); RDW 15.2 % (11.5-14.5); WBC 4.64 X 10*3/uL (4.50-10.00)
[2024-11-05] MEDS: POTASSIUM CHLORIDE ER 20 MEQ TAB.ER PO SCH (17:32)
[2024-11-05] MEDS: MAGNESIUM SULFATE-D5W PMX 1 GM in DEXTROSE/WATER 1 100ML.BAG IVPB SCH (17:33)
[2024-11-05] MEDS: HYDROcodone/APAP 10-325MG 1 EACH TAB PO PRN (20:34)
--- NOTE | 2024-11-05 20:56 | P.PN ---
Subjective November 04, 2024: Kenisha is a 49-year-old alcoholic well-known to the practice came to emergency room drunk he had some bleeding he indicates from with bowel movement bright red blood small amount and then some hematuria he was found to otherwise have no active bleeding at evidence. He did an alcohol level over 300 at that time. He reports drinking vodka regularly he has no alcoholic cirrhosis and chronic pancreatitis he is currently on CIWA protocol. This morning he was easily arousable staff report his CIWA scale is gone down from 10 or 11 down to 8. Vital signs are stable. Labs show hemoglobin is stable however his platelets have dropped to 22 today potassium is 3.0 again magnesium is now 1.5. Ammonia level was 84 yesterday but is having no active confusion or evidence of metabolic encephalopathy November 05, 2024: Patient is slightly improved. Electrolytes continue to be abnormal with magnesium he continues to have significant thrombocytopenia no active bleeding. Objective - Vital Signs Vital signs: Vital Signs Temp 98 F 11/05/24 13:10 Pulse 74 11/05/24 13:10 Resp 20 11/05/24 13:10 BP 145/80 11/05/24 13:10 Pulse Ox 96 11/05/24 13:10 FiO2 Intake & Output 11/05/24 11/05/24 11/06/24 06:59 18:59 06:59 Intake Total 590 Output Total 400 975 Balance 190 -975 Intake: Oral 590 Output: Urine 400 975 Other: Voiding Method Urinal Urinal # Voids 1 - Exam General: Disheveled 49-year-old male known to the practice who looks his stated age, no evident tremors today Neck: The neck is supple, there is no thyromegaly, lymphadenopathy, tenderness or JVD. Cardiovascular: S1S2 is normal, There is a regular rate and rhythm. No murmur, rub or gallop is appreciated. Respiratory: Lungs are clear to auscultation bilaterally, respirations are non-labored, breath sounds are equal. Gastrointestinal: Soft, non-distended, non-tender abdomen without masses or organomegaly noted. There is no rebound or guarding present. Bowel sounds are u nremarkable. Musculoskeletal: Normal ROM, no tenderness, There is no pedal edema. There is no calf tenderness or swelling. No cords were appreciated. Neurological: CN II-XII intact, there are no obvious motor or sensory deficits. Coordination appears grossly intact. Speech is normal. He is obviously fatigued most likely from the Ativan he has been receiving. Skin: Skin is warm and dry and no rashes or lesions are noted. - Labs CBC & Chem 7: 11/05/24 05:30 11/05/24 05:30 Labs: Abnormal Lab Results - Last 24 Hours (Table) 11/05/24 11/05/24 Range/Units 05:30 05:30 RBC 3.17 L (4.40-5.60) X 10*6/uL Hgb 10.9 L (13.0-17.0) g/dL Hct 33.3 L (39.6-50.0) % MCV 105.0 H (80.0-97.0) FL MCH 34.4 H (27.0-32.0) pg RDW 15.2 H (11.5-14.5) % Plt Count 25 A* (140-440) X 10*3/uL MPV 13.8 H (9.5-12.2) FL Lymphocytes # 0.45 L (0.90-5.00) X 10*3/uL Immature Plt Fraction 12.7 H (1.1-6.1) % Chloride 112 H (98-107) mmol/L Carbon Dioxide 17 L (22-30) mmol/L BUN 4 L (9-20) mg/dL Creatinine 0.55 L (0.66-1.25) mg/dL Glucose 120 H (74-99) mg/dL Calcium 7.7 L (8.4-10.2) mg/dL Magnesium 1.4 L (1.6-2.3) mg/dL Total Bilirubin 4.0 H (0.2-1.3) mg/dL AST 170 H (17-59) U/L Alkaline Phosphatase 158 H (38-126) U/L Total Protein 5.8 L (6.3-8.2) g/dL Albumin 2.8 L (3.5-5.0) g/dL Assessment and Plan (1) Hypokalemia Current Visit: Yes Status: Acute Code(s): E87.6 - HYPOKALEMIA SNOMED Code(s): 37813213 (2) Alcohol intoxication Current Visit: Yes Status: Acute Code(s): F10.929 - ALCOHOL USE, UNSPECIFIED WITH INTOXICATION, UNSPECIFIED SNOMED Code(s): 06682659 (3) Hypokalemia Current Visit: Yes Status: Acute Code(s): E87.6 - HYPOKALEMIA SNOMED Code(s): 91460910 (4) Abdominal pain Current Visit: No Status: Acute Code(s): R10.9 - UNSPECIFIED ABDOMINAL PAIN SNOMED Code(s): 31486095 (5) Alcoholic cirrhosis of liver Current Visit: No Status: Acute Code(s): K70.30 - ALCOHOLIC CIRRHOSIS OF LIVER WITHOUT ASCITES SNOMED Code(s): 071162451 (6) History of chronic pancreatitis Current Visit: No Status: Acute Code(s): Z87.19 - PERSONAL HISTORY OF OTHER DISEASES OF THE DIGESTIVE SYSTEM SNOMED Code(s): 62430165231278 (7) Hyperammonemia Current Visit: No Status: Acute Code(s): E72.20 - DISORDER OF UREA CYCLE METABOLISM, UNSPECIFIED SNOMED Code(s): 3787664 (8) Hypomagnesemia Current Visit: No Status: Acute Code(s): E83.42 - HYPOMAGNESEMIA SNOMED Code(s): 301719199 (9) Macrocytic anemia Current Visit: No Status: Acute Code(s): D53.9 - NUTRITIONAL ANEMIA, UNSPECIFIED SNOMED Code(s): 58268918 (10) Polysubstance abuse Current Visit: No Status: Acute Code(s): F19.10 - OTHER PSYCHOACTIVE SUBSTANCE ABUSE, UNCOMPLICATED SNOMED Code(s): 963358054 (11) Thrombocytopenia Current Visit: No Status: Acute Code(s): D69.6 - THROMBOCYTOPENIA, UNSPECIFIED SNOMED Code(s): 945798412 (12) Tobacco abuse Current Visit: No Status: Acute Code(s): Z72.0 - TOBACCO USE SNOMED Code(s): 854840238 (13) Coagulopathy Current Visit: No Status: Chronic Code(s): D68.9 - COAGULATION DEFECT, UNSPECIFIED SNOMED Code(s): 17728139 Plan: We will continue IV multivitamins, electrolyte replacement, and CIWA protocol, he continues to improve, expect discharge tomorrow
[2024-11-06] MEDS: ALBUTEROL NEBULIZED 2.5 MG/3 ML INHALATION PRN
[2024-11-06 07:30] VITALS: TEMP 97.9
--- NOTE | 2024-11-06 08:34 | P.DS ---
Providers Date of admission: 11/02/24 20:13 Expected date of discharge: 11/06/24 Attending physician: Aristeo Fox Primary care physician: [facility] Course: Final Diagnosis: Alcohol dependence, intoxicated. Serum alcohol level 371 Acute on chronic thrombocytopenia Hypomagnesemia Hypokalemia Hyperammonemia Pancreatitis, chronic History of esophageal varices with multiple banding Elevated LFTs in a patient with alcoholic cirrhosis of liver, chronic alcoholic hepatitis Portal hypertension History of ascites with multiple paracentesis History of polysubstance abuse including cocaine, heroin and marijuana Noncompliance Chronic nicotine dependence History of nephrolithiasis, chronic anemia Hospital course:This is a 49-year-old male with past medical history significant for polysubstance abuse including alcohol , cocaine heroin marijuana, pancreatitis, chronic alcoholic hepatitis ,ascites with multiple paracentesis, esophageal varices with multiple banding's, chronic anemia, ventral hernia repair, bipolar, depression, anxiety, multiple other medical issues presented to the ER with complaints of blood in his urine and stool over the last week, epigastric pain with decreased diet intake. Denies nausea vomiting. Hemoccult negative, CTA negative. KUB nonacute. serum alcohol 371, last drink yesterday. Potassium 2.6, received supplementation, repeat level 3.3. Afebrile, normal WBC, hemoglobin 9.6, platelets 41, MCV 106.5, BUN 8.1, creatinine 0.6, glucose 95, magnesium 1.2. T. bili 3.8, AST 224, ALT 57, alk phos 192, lipase 478. UA negative. Viral studies negative. EKG reported sinus rhythm. CIWA score currently 11. Ammonia level added to prior labs.CIWA protocol. IV fluid hydration. Electrolyte supplementation as ordered. Continue lactulose. PPI for GI prophylaxis ordered .nicotine patch ordered. counseled on polysubstance abuse with alcohol abstinence reinforced. Stat repeat labs ordered. Discharge planning in progress pending CIWA score less than 6. November 04, 2024: Kenisha is a 49-year-old alcoholic well-known to the practice came to emergency room drunk he had some bleeding he indicates from with bowel movement bright red blood small amount and then some hematuria he was found to otherwise have no active bleeding at evidence. He did an alcohol level over 300 at that time. He reports drinking vodka regularly he has no alcoholic cirrhosis and chronic pancreatitis he is currently on CIWA protocol. This morning he was easily arousable staff report his CIWA scale is gone down from 10 or 11 down to 8. Vital signs are stable. Labs show hemoglobin is stable however his p latelets have dropped to 22 today potassium is 3.0 again magnesium is now 1.5. Ammonia level was 84 yesterday but is having no active confusion or evidence of metabolic encephalopathy November 05, 2024: Patient is slightly improved. Electrolytes continue to be abnormal with magnesium he continues to have significant thrombocytopenia no active bleeding. We will continue IV multivitamins, electrolyte replacement, and CIWA protocol, he continues to improve, expect discharge tomorrow. Significant clinical improvement. Replacing magnesium and potassium. CBC pending. Recent CIWA score 6. Denies chest pain, palpitations or shortness of breath. Patient will be discharged home today in a stable condition with guarded prognosis. Anticipating starting patient on some oral prednisone if platelets return back low. Patient has been instructed on steroids causing GI upset, consume with food, no alcohol. The impression and plan of care has been dictated as directed. : I performed a history and examination of this patient, discussed the same with the dictator. I agree with the dictator's note ,documented as a scribe. Any additional findings or plans will be noted. Patient Condition at Discharge: Stable Plan - Discharge Summary Discharge Rx Participant: No New Discharge Prescriptions: New Thiamine [Vitamin B-1] 100 mg PO DAILY tab predniSONE [Deltasone] 40 mg PO DAILY #30 tab Continue Multivit-Mins/Iron/Folic/Lycop [Centrum Men's Tablet] 1 tab PO DAILY Potassium Gluconate 99 mg PO DAILY Magnesium Oxide [Mag-Ox] 400 mg PO DAILY Pantoprazole Sodium [Protonix] 40 mg PO BID #60 tab Albuterol Sulfate [Albuterol Sulfate Hfa] 1 puff INHALATION RT-Q4H PRN PRN Reason: Shortness Of Breath Fluticasone/Umeclidin/Vilanter [Trelegy Ellipta 100-62.5-25] 1 puff INHALATION RT-DAILY Nicotine 21Mg/24Hr Patch [Habitrol] 1 patch TRANSDERM DAILY PRN PRN Reason: Nicotine Cravings Lactulose 20 gm PO TID HYDROcodone/APAP 10-325MG [[place] 10-325] 1 tab PO TID PRN 30 Days #90 tab PRN Reason: Pain atenoloL [Tenormin] 25 mg PO DAILY Discharge Medication List Lactulose 20 gm PO TID 11/10/23 [History] Multivit-Mins/Iron/Folic/Lycop [Centrum Men's Tablet] 1 tab PO DAILY 11/29/23 [History] Magnesium Oxide [Mag-Ox] 400 mg PO DAILY 06/21/24 [History] Potassium Gluconate 99 mg PO DAILY 06/21/24 [History] Pantoprazole Sodium [Protonix] 40 mg PO BID #60 tab 07/14/24 [Rx] HYDROcodone/APAP 10-325MG [[place] 10-325] 1 tab PO TID PRN 30 Days #90 tab 09/13/24 [Rx] Albuterol Sulfate [Albuterol Sulfate Hfa] 1 puff INHALATION RT-Q4H PRN 11/02/24 [History] Fluticasone/Umeclidin/Vilanter [Trelegy Ellipta 100-62.5-25] 1 puff INHALATION RT-DAILY 11/02/24 [History] Nicotine 21Mg/24Hr Patch [Habitrol] 1 patch TRANSDERM DAILY PRN 11/02/24 [History] atenoloL [Tenormin] 25 mg PO DAILY 11/02/24 [History] Thiamine [Vitamin B-1] 100 mg PO DAILY tab 11/06/24 [Rx] predniSONE [Deltasone] 40 mg PO DAILY #30 tab 11/06/24 [Rx] Follow up Appointment(s)/Referral(s): James Meza Jr, [Primary Care Provider] - 11/10/24 11:30 am Patient Instructions/Handouts: Hypokalemia (DC), Abuse of Alcohol (DC), Hypomagnesemia (DC), Thrombocytopenia (DC) Discharge/Stand Alone Forms: [facility]
[2024-11-06 10:40] LABS: Magnesium 1.4 mg/dL (1.5-2.4); Potassium 3.4 mmol/L (3.5-5.5)
[2024-11-06] MEDS: MAGNESIUM SULFATE-D5W PMX 1 GM in DEXTROSE/WATER 1 100ML.BAG IVPB SCH (10:55)
[2024-11-06] MEDS: POTASSIUM CHLORIDE ER 20 MEQ TAB.ER PO SCH (10:55)
[2024-11-06] MEDS: MAGNESIUM SULFATE-D5W PMX 1 GM in DEXTROSE/WATER 1 100ML.BAG IVPB ONE (12:12)
[2024-11-06 12:24] LABS: HGB 11.4 g/dL (13.0-17.0); Immature Platelet Fraction 11.7 % (1.1-6.1); MCH 35.5 pg (27.0-32.0); MCHC 32.6 g/dL (32.0-37.0); Mean Platelet Volume 12.9 FL (9.5-12.2); NRBC Per 100 WBC 0 X 10*3/uL (0.00-0.01); Platelet Count 36 X 10*3/uL (140-440); RBC 3.21 X 10*6/uL (4.40-5.60); RDW 15.4 % (11.5-14.5); WBC 5.51 X 10*3/uL (4.50-10.00)
[2024-11-06 12:42] LABS: Basophils # (A) 0.08 X 10*3/uL (0.00-0.10); Basophils % (A) 1.5 %; Eosinophils # (A) 0.15 X 10*3/uL (0.04-0.35); Eosinophils % (A) 2.7 %; Lymphocytes # (A) 0.51 X 10*3/uL (0.90-5.00); Lymphocytes % (A) 9.3 %; Monocytes # (A) 0.76 X 10*3/uL (0.20-1.00); Monocytes % (A) 13.8 %; Neutrophils # (A) 3.99 X 10*3/uL (1.80-7.70); Neutrophils % (A) 72.3 %
[2024-11-06] MEDS: POTASSIUM CHLORIDE ER 20 MEQ TAB.ER PO ONE (13:21)
[2024-11-06 14:21] VITALS: BP 138/80; PULSE 67; RESP 20
== END 2024-11-06 15:38 | disposition home or self-care (01) ==
LOC: EC 15:36 → 5NMEDONC 20:13
PROVIDERS: ADMIT Family Medicine; ATTEND Family Medicine
DX: F10.229 Alcohol dependence with intoxication, unspecified (principal); D69.6 Thrombocytopenia, unspecified; E72.20 Disorder of urea cycle metabolism, unspecified; E83.42 Hypomagnesemia; E87.6 Hypokalemia; K70.10 Alcoholic hepatitis without ascites; K70.30 Alcoholic cirrhosis of liver without ascites; K76.6 Portal hypertension; K86.1 Other chronic pancreatitis; D53.9 Nutritional anemia, unspecified; D68.9 Coagulation defect, unspecified; F17.200 Nicotine dependence, unspecified, uncomplicated; F31.9 Bipolar disorder, unspecified; F41.9 Anxiety disorder, unspecified; J45.909 Unspecified asthma, uncomplicated; F14.11 Cocaine abuse, in remission; F11.11 Opioid abuse, in remission; F12.11 Cannabis abuse, in remission; Y90.8 Blood alcohol level of 240 mg/100 ml or more; Z79.899 Other long term (current) drug therapy; Z85.07 Personal history of malignant neoplasm of pancreas; Z91.199 Patient's noncompliance with other medical treatment and regimen due to unspecified reason; Z87.442 Personal history of urinary calculi
CPT/HCPCS: 96361 ×3; 96365 ×2; 96366 ×5; 96374 ×2; 96372; 96375; 99285; 36415; 94640 ×8; 80053 ×2; 80048 ×2; 82140 ×2; 82150; 83690; 83735 ×4; 84132 ×2; 84484; 85025 ×5; 85610 ×2; 85730; 82272; 81001; 87636; 74018; 74175; G0378 ×5; G0480; J3411; J3480; J2405; J1171; J3475 ×4; Q9967; J2470 ×3; 80320

== ENCOUNTER 2024-12-05 23:53 | Inpatient (IN) | payer OTHER ==
--- NOTE | 2024-12-06 00:07 | ED ---
General Adult HPI - General Stated complaint: MAYI Time Seen by Provider: 12/05/24 23:58 Source: patient Mode of arrival: EMS Limitations: no limitations - History of Present Illness Initial comments: This patient is a 49-year-old man with history of COPD brought by EMS to have ev aluation for severe dyspnea. The patient history is mildly limited by his severe dyspnea. Patient does admit to recent heavy alcohol use. the patient has not felt well for a couple of days. He states that his breathing worsened markedly tonight. He has not noted fevers. He is coughing. He is very short of breath. When EMS arrived on scene they found the patient in tripod position tachypneic with coarse breath sounds throughout. They administered 2 albuterol treatments, DuoNeb, IV Solu-Medrol and 2 g of magnesium IV. -: days(s) Consistency: constant Improves with: none Worsens with: none Associated Symptoms: cough Treatments Prior to Arrival: other - Related Data Home Medications Medication Instructions Recorded Confirmed Multivit-Mins/Iron/Folic/Lycop 1 tab PO DAILY 11/29/23 12/06/24 [Centrum Men's Tablet] Potassium Gluconate 99 mg PO BID 06/21/24 12/06/24 Albuterol Sulfate [Albuterol 1 puff INHALATION RT-Q4H PRN 11/02/24 12/06/24 Sulfate Hfa] Fluticasone/Umeclidin/Vilanter 1 puff INHALATION RT-DAILY 11/02/24 12/06/24 [Trelegy Ellipta 100-62.5-25] atenoloL [Tenormin] 25 mg PO DAILY 11/02/24 12/06/24 Clotrimazole Nabila [Mycelex 10 mg MUCOUS MEM QID 12/06/24 12/06/24 Nabila] Magnesium Oxide [Magnesium] 500 mg PO DAILY 12/06/24 12/06/24 Naltrexone Microspheres [Vivitrol] 380 mg IM QMONTHLY 12/06/24 12/06/24 Previous Rx's Medication Instructions Recorded Pantoprazole Sodium [Protonix] 40 mg PO BID #60 tab 07/14/24 Thiamine [Vitamin B-1] 100 mg PO DAILY tab 11/06/24 Aspirin 81 mg PO DAILY tab 12/12/24 Furosemide [Lasix] 40 mg PO DAILY tab 12/12/24 Ipratropium-Albuterol Nebulize 3 ml INHALATION RT-QID #120 each 12/12/24 [Duoneb 0.5 mg-3 mg/3 ml Soln] Lactulose [Cephulac] 30 gm PO TID ml 12/12/24 Losartan [Cozaar] 25 mg PO DAILY #30 tab 12/12/24 predniSONE 10 mg PO DIRECTED #30 tab 12/12/24 OLANZapine [ZyPREXA] 2.5 mg PO BID PRN 3 Days #6 tab 12/14/24 OLANZapine [ZyPREXA] 2.5 mg PO HS #3 tab 12/14/24 traMADol HCl [Ultram] 50 mg PO Q6HR PRN 3 Days #12 tab 12/14/24 Allergies Allergy/AdvReac Type Severity Reaction Status Date / Time No Known Allergies Allergy Verified 12/06/24 06:48 Review of Systems ROS Statement: Those systems with pertinent positive or pertinent negative responses have been documented in the HPI. ROS Other: All systems not noted in ROS Statement are negative. Constitutional: Denies: fever Respiratory: Reports: cough, dyspnea, wheezes. Denies: hemoptysis Cardiovascular: Denies: chest pain, palpitations, edema Gastrointestinal: Reports: vomiting. Denies: abdominal pain, melena, hematochezia Genitourinary: Denies: dysuria, hematuria Musculoskeletal: Denies: back pain Skin: Denies: rash Neurological: Denies: headache, weakness Psychiatric: Reports: anxiety Past Medical History Past Medical History: Asthma, Cancer, GI Bleed, Liver Disease, Pneumonia, Renal Disease, Skin Disorder Additional Past Medical History / Comment(s): Liver cirrhosis, portal HTN, a bdominal ascities, pancreatitis, upper and lower GI bleeds, bleeding ulcers, esophageal varicies-banded, thrombocytopemia, chronic anemia, gallstones, nephrolithiasis/hematuria, L inguinal hernia, psoriasis; paracentesis, umbilical hernia, left foot injury, pancreatitis History of Any Multi-Drug Resistant Organisms: MRSA Date of last positivie culture/infection: 12/09/13 MDRO Source:: Right first finger Past Surgical History: Appendectomy, Cholecystectomy, Hernia Repair, Orthopedic Surgery Additional Past Surgical History / Comment(s): EGDs/varicies banding/colonoscopy, paracentesis, right hand tendon repair, right knee arthroscopy, cystoscopy for kidney stone removal, right hand ring finger surgery. surgery for umbilical hernia, Hernia repair on 10/13 at [facility]. Past Anesthesia/Blood Transfusion Reactions: Previous Problems w/ Anesthesia, Motion Sickness Additional Past Anesthesia/Blood Transfusion Reaction / Comment(s): Woke up during scope procedure. Past Psychological History: Anxiety, Bipolar, Depression, PTSD Smoking Status: Current every day smoker Past Alcohol Use History: None Reported Past Drug Use History: None Reported - Past Family History Mother Family Medical History: No Reported History Additional Family Medical History / Comment(s): Mother has health issues from a MVA-pt did not elaborate. Father Family Medical History: Vascular Disorder Additional Family Medical History / Comment(s): Prostate issues grandpa. Brain aneurysm father. General Exam Limitations: no limitations General appearance: alert, in distress Head exam: Present: atraumatic, normocephalic Eye exam: Present: normal appearance. Absent: scleral icterus, conjunctival injection, nystagmus ENT exam: Present: normal oropharynx Neck exam: Present: normal inspection, full ROM. Absent: meningismus Respiratory exam: Present: respiratory distress, rales, rhonchi, accessory muscle use. Absent: stridor, decreased breath sounds, prolonged expiratory Cardiovascular Exam: Present: normal rhythm, tachycardia, systolic murmur. Absent: diastolic murmur, rubs, gallop GI/Abdominal exam: Present: soft. Absent: distended, tenderness, guarding, rebound, rigid, mass, pulsatile mass, hernia Extremities exam: Present: normal inspection, normal capillary refill. Absent: pedal edema, calf tenderness Back exam: Present: normal inspection. Absent: CVA tenderness (R), CVA tenderness (L) Neurological exam: Present: alert Psychiatric exam: Present: anxious Skin exam: Present: warm, dry, intact, normal color. Absent: rash Course Vital Signs 12/05/24 12/06/24 12/06/24 23:59 00:20 01:15 Temperature 99.8 F H Pulse Rate 118 H Respiratory 30 H Rate Blood Pressure 144/63 O2 Sat by Pulse 94 L Oximetry Fraction of 80 60 Inspired Oxygen (FIO2) 12/06/24 12/06/24 12/06/24 02:00 03:54 04:19 Temperature 97.3 F L Pulse Rate 103 H 99 Respiratory 25 H 24 Rate Blood Pressure 133/83 137/85 O2 Sat by Pulse 96 92 L Oximetry Fraction of 60 Inspired Oxygen (FIO2) 12/06/24 06:10 Temperature Pulse Rate 100 Respiratory 24 Rate Blood Pressure 140/83 O2 Sat by Pulse 95 Oximetry Fraction of Inspired Oxygen (FIO2) EKG Findings - EKG Results: EKG: interpreted by MERARY, sinus rhythm, normal axis, normal QRS, normal ST/T EKG shows: tachycardia (110 bpm) Medical Decision Making - Medical Decision Making Patient is 49-year-old man here with respiratory distress, and was placed on BiPAP as he had poor saturations on arrival. I suspect that with patient's recent alcohol use he may have had some aspiration. The patient is sent for chest x-ray that I interpreted as showing bilateral lower lobe infiltrates. There is cardiomegaly. The patient is started on sepsis protocol with IV fluid bolus and antibiotics administered. The patient having clinical improvement here but will be initially admitted to the ICU given the respiratory status and concern for impending DTs. Was pt. sent in by a medical professional or institution ([facility], PROPERTY SPECIALIST, urgent care, hospital, or fpc...) When possible be specific @ -[No] Did you speak to anyone other than the patient for history (EMS, parent, family, police, friend...)? What history was obtained from this source @ -[No] Did you review nursing and triage notes (agree or disagree)? Why? @ -[I reviewed and agree with nursing and triage notes] Were old charts reviewed (outside hosp., previous admission, EMS record, old EKG, old radiological studies, urgent care reports/EKG's, fpc records)? Report findings @ -[Yes, old charts were reviewed] Differential Diagnosis (chest pain, altered mental status, abdominal pain women, abdominal pain men, vaginal bleeding, weakness, fever, dyspnea, syncope, headache, dizziness, GI bleed, back pain, seizure, CVA, palpatations, mental health, musculoskeletal)? @ -[Differential Dyspnea: Coronary syndrome, arrhythmia, tamponade, asthma, COPD, pulmonary embolism, pneumonia, pneumothorax, pulmonary effusion, anaphylaxis, diabetic ketoacidosis, flailed chest, pulmonary contusion, diaphragmatic rupture, anemia, neuromuscular, this is not meant to be an all-inclusive list. EKG interpreted by me (3pts min.). @ -[I interpreted as above] X-rays interpreted by me (1pt min.). @ -[I interpreted as above CT interpreted by me (1pt min.). @ -[None done] U/S interpreted by me (1pt. min.). @ -[None done] What testing was considered but not performed or refused? (CT, X-rays, U/S, labs)? Why? @ -[None] What meds were considered but not given or refused? Why? @ -[None] Did you discuss the management of the patient with other professionals (professionals i.e. , PA, PROPERTY SPECIALIST, lab, RT, psych nurse, social services analyst, fine arts packer, teacher, banking services officer, medical case manager)? Give summary @ -Case discussed with the admitting service and also with the delicatessen slicer service and treatment recommendations are incorporated Was smoking cessation discussed for >3mins.? @ -[No] Was critical care preformed (if so, how long)? @ -[Yes, 40 minutes Were there social determinants of health that impacted care today? How? (Home lessness, low income, unemployed, alcoholism, drug addiction, transportation, low edu. Level, literacy, decrease access to med. care, alf, rehab)? @ -[Chronic alcoholism Was there de-escalation of care discussed even if they declined (Discuss DNR or withdrawal of care, Hospice)? DNR status @ -[No] What co-morbidities impacted this encounter? (DM, HTN, Smoking, COPD, CAD, Cancer, CVA, ARF, Chemo, Hep., AIDS, mental health diagnosis, sleep apnea, morbid obesity)? @ -[Chronic alcoholism, COPD Was patient admitted / discharged? Hospital course, mention meds given and route, prescriptions, significant lab abnormalities, going to OR and other pertinent info. @ -[See the above Undiagnosed new problem with uncertain prognosis? @ -[No] Drug Therapy requiring intensive monitoring for toxicity (Heparin, Nitro, Insulin, Cardizem)? @ -[No] Were any procedures done? @ -[No] Diagnosis/symptom? @ -[Bilateral lower lobe pneumonia, possible aspiration, acute Sepsis Elevated troponin Alcohol withdrawal Possible pancreatitis Acute, or Chronic, or Acute on Chronic? @ -[Acute Uncomplicated (without systemic symptoms) or Complicated (systemic symptoms)? @ -[Complicated Side effects of treatment? @ -[No] Exacerbation, Progression, or Severe Exacerbation? @ -[No] Poses a threat to life or bodily function? How? (Chest pain, [place], [place], pneumonia, PE, COPD, DKA, ARF, appy, cholecystitis, CVA, Diverticulitis, Homicidal, Suicidal, threat to staff... and all critical care pts) @ -[Yes there is a serious risk of morbidity and mortality associated with sepsis and also with alcohol withdrawal All treatments are based on ideal body weight as in ED triage - Lab Data Result diagrams: 12/13/24 05:36 12/14/24 07:43 Lab Results 12/06/24 12/06/24 12/06/24 Range/Units 00:06 00:06 00:06 WBC 17.52 H (4.50-10.00) 10*3/uL RBC 3.42 L (4.40-5.60) 10*6/uL Hgb 11.9 L (13.0-17.0) g/dL Hct 37.2 L (39.6-50.0) % MCV 108.8 H (80.0-97.0) fL MCH 34.8 H (27.0-32.0) pg MCHC 32.0 (32.0-37.0) g/dL Plt Count 144 D (140-440) 10*3/uL MPV 10.9 (9.5-12.2) fL Immature Gran % (Auto) 0.8 % Neutrophils % (Manual) 68 % Lymphocytes % (Manual) 25 % Monocytes % (Manual) 7 % Immature Gran # 0.14 H (0.00-0.04) 10*3/uL Neutrophils # (Manual) 11.91 H (1.3-7.7) k/uL Lymphocytes # (Manual) 4.38 (1.0-4.8) k/uL Monocytes # (Manual) 1.23 H (0-1.0) k/uL Nucleated RBCs 0 (0-0) /100 WBC Manual Slide Review Performed PT 11.6 (10.0-12.5) sec INR 1.1 (<1.2) APTT 20.9 L (22.0-30.0) sec VBG pH (7.31-7.41) VBG pCO2 (37-51) mmHg VBG HCO3 (24-28) mmol/L Sodium 137 (137-145) mmol/L Potassium 5.3 H (3.5-5.1) mmol/L Chloride 106 (98-107) mmol/L Carbon Dioxide 21 L (22-30) mmol/L Anion Gap 10 mmol/L BUN 19 (9-20) mg/dL Creatinine 0.67 (0.66-1.25) mg/dL Est GFR (CKD-EPI)AfAm >90 (>60 ml/min/1.73 sqM) Est GFR (CKD-EPI)NonAf >90 (>60 ml/min/1.73 sqM) Glucose 124 H (74-99) mg/dL Lactic Ac Sepsis Rflx Plasma Lactic Acid Balaji (0.7-2.0) mmol/L Calcium 9.3 (8.4-10.2) mg/dL Magnesium 2.3 (1.6-2.3) mg/dL Total Bilirubin 2.6 H (0.2-1.3) mg/dL AST 165 H (17-59) U/L ALT 44 (4-49) U/L Alkaline Phosphatase 218 H (38-126) U/L Troponin I (0.000-0.034) ng/mL NT-Pro-B Natriuret Pep 3800 pg/mL Total Protein 5.8 L (6.3-8.2) g/dL Albumin 2.9 L (3.5-5.0) g/dL Amylase (30-110) U/L Lipase (23-300) U/L Urine Color Urine Appearance (Clear) Urine pH (5.0-8.0) Ur Specific Worth (1.001-1.035) Urine Protein (Negative) Urine Glucose (UA) (Negative) Urine Ketones (Negative) Urine Blood (Negative) Urine Nitrite (Negative) Urine Bilirubin (Negative) Urine Urobilinogen (<2.0) mg/dL Ur Leukocyte Esterase (Negative) Urine RBC (0-5) /hpf Urine WBC (0-5) /hpf Ur Squamous Epith Cells (0-4) /hpf Amorphous Sediment (None) /hpf Hyaline Casts (0-2) /lpf Urine Mucus (None) /hpf Serum Alcohol 79 mg/dL Urine Legionella Ag (Negative) 12/06/24 12/06/24 12/06/24 Range/Units 00:06 00:06 00:06 WBC (4.50-10.00) 10*3/uL RBC (4.40-5.60) 10*6/uL Hgb (13.0-17.0) g/dL Hct (39.6-50.0) % MCV (80.0-97.0) fL MCH (27.0-32.0) pg MCHC (32.0-37.0) g/dL Plt Count (140-440) 10*3/uL MPV (9.5-12.2) fL Immature Gran % (Auto) % Neutrophils % (Manual) % Lymphocytes % (Manual) % Monocytes % (Manual) % Immature Gran # (0.00-0.04) 10*3/uL Neutrophils # (Manual) (1.3-7.7) k/uL Lymphocytes # (Manual) (1.0-4.8) k/uL Monocytes # (Manual) (0-1.0) k/uL Nucleated RBCs (0-0) /100 WBC Manual Slide Review PT (10.0-12.5) sec INR (<1.2) APTT (22.0-30.0) sec VBG pH 7.45 H (7.31-7.41) VBG pCO2 30 L (37-51) mmHg VBG HCO3 21 L (24-28) mmol/L Sodium (137-145) mmol/L Potassium (3.5-5.1) mmol/L Chloride (98-107) mmol/L Carbon Dioxide (22-30) mmol/L Anion Gap mmol/L BUN (9-20) mg/dL Creatinine (0.66-1.25) mg/dL Est GFR (CKD-EPI)AfAm (>60 ml/min/1.73 sqM) Est GFR (CKD-EPI)NonAf (>60 ml/min/1.73 sqM) Glucose (74-99) mg/dL Lactic Ac Sepsis Rflx Plasma Lactic Acid Balaji 5.1 H* (0.7-2.0) mmol/L Calcium (8.4-10.2) mg/dL Magnesium (1.6-2.3) mg/dL Total Bilirubin (0.2-1.3) mg/dL AST (17-59) U/L ALT (4-49) U/L Alkaline Phosphatase (38-126) U/L Troponin I 0.543 H* (0.000-0.034) ng/mL NT-Pro-B Natriuret Pep pg/mL Total Protein (6.3-8.2) g/dL Albumin (3.5-5.0) g/dL Amylase (30-110) U/L Lipase (23-300) U/L Urine Color Urine Appearance (Clear) Urine pH (5.0-8.0) Ur Specific Worth (1.001-1.035) Urine Protein (Negative) Urine Glucose (UA) (Negative) Urine Ketones (Negative) Urine Blood (Negative) Urine Nitrite (Negative) Urine Bilirubin (Negative) Urine Urobilinogen (<2.0) mg/dL Ur Leukocyte Esterase (Negative) Urine RBC (0-5) /hpf Urine WBC (0-5) /hpf Ur Squamous Epith Cells (0-4) /hpf Amorphous Sediment (None) /hpf Hyaline Casts (0-2) /lpf Urine Mucus (None) /hpf Serum Alcohol mg/dL Urine Legionella Ag (Negative) 12/06/24 12/06/24 12/06/24 Range/Units 00:06 00:23 00:23 WBC (4.50-10.00) 10*3/uL RBC (4.40-5.60) 10*6/uL Hgb (13.0-17.0) g/dL Hct (39.6-50.0) % MCV (80.0-97.0) fL MCH (27.0-32.0) pg MCHC (32.0-37.0) g/dL Plt Count (140-440) 10*3/uL MPV (9.5-12.2) fL Immature Gran % (Auto) % Neutrophils % (Manual) % Lymphocytes % (Manual) % Monocytes % (Manual) % Immature Gran # (0.00-0.04) 10*3/uL Neutrophils # (Manual) (1.3-7.7) k/uL Lymphocytes # (Manual) (1.0-4.8) k/uL Monocytes # (Manual) (0-1.0) k/uL Nucleated RBCs (0-0) /100 WBC Manual Slide Review PT (10.0-12.5) sec INR (<1.2) APTT (22.0-30.0) sec VBG pH (7.31-7.41) VBG pCO2 (37-51) mmHg VBG HCO3 (24-28) mmol/L Sodium (137-145) mmol/L Potassium (3.5-5.1) mmol/L Chloride (98-107) mmol/L Carbon Dioxide (22-30) mmol/L Anion Gap mmol/L BUN (9-20) mg/dL Creatinine (0.66-1.25) mg/dL Est GFR (CKD-EPI)AfAm (>60 ml/min/1.73 sqM) Est GFR (CKD-EPI)NonAf (>60 ml/min/1.73 sqM) Glucose (74-99) mg/dL Lactic Ac Sepsis Rflx Plasma Lactic Acid Balaji (0.7-2.0) mmol/L Calcium (8.4-10.2) mg/dL Magnesium (1.6-2.3) mg/dL Total Bilirubin (0.2-1.3) mg/dL AST (17-59) U/L ALT (4-49) U/L Alkaline Phosphatase (38-126) U/L Troponin I (0.000-0.034) ng/mL NT-Pro-B Natriuret Pep pg/mL Total Protein (6.3-8.2) g/dL Albumin (3.5-5.0) g/dL Amylase 73 (30-110) U/L Lipase 392 H (23-300) U/L Urine Color Yellow Urine Appearance Clear (Clear) Urine pH 6.0 (5.0-8.0) Ur Specific Worth 1.020 (1.001-1.035) Urine Protein Trace H (Negative) Urine Glucose (UA) Negative (Negative) Urine Ketones Negative (Negative) Urine Blood Negative (Negative) Urine Nitrite Negative (Negative) Urine Bilirubin Negative (Negative) Urine Urobilinogen 4.0 (<2.0) mg/dL Ur Leukocyte Esterase Trace H (Negative) Urine RBC 4 (0-5) /hpf Urine WBC 18 H (0-5) /hpf Ur Squamous Epith Cells <1 (0-4) /hpf Amorphous Sediment Occasional H (None) /hpf Hyaline Casts 1 (0-2) /lpf Urine Mucus Few H (None) /hpf Serum Alcohol mg/dL Urine Legionella Ag Negative (Negative) 12/06/24 Range/Units 01:06 WBC (4.50-10.00) 10*3/uL RBC (4.40-5.60) 10*6/uL Hgb (13.0-17.0) g/dL Hct (39.6-50.0) % MCV (80.0-97.0) fL MCH (27.0-32.0) pg MCHC (32.0-37.0) g/dL Plt Count (140-440) 10*3/uL MPV (9.5-12.2) fL Immature Gran % (Auto) % Neutrophils % (Manual) % Lymphocytes % (Manual) % Monocytes % (Manual) % Immature Gran # (0.00-0.04) 10*3/uL Neutrophils # (Manual) (1.3-7.7) k/uL Lymphocytes # (Manual) (1.0-4.8) k/uL Monocytes # (Manual) (0-1.0) k/uL Nucleated RBCs (0-0) /100 WBC Manual Slide Review PT (10.0-12.5) sec INR (<1.2) APTT (22.0-30.0) sec VBG pH (7.31-7.41) VBG pCO2 (37-51) mmHg VBG HCO3 (24-28) mmol/L Sodium (137-145) mmol/L Potassium (3.5-5.1) mmol/L Chloride (98-107) mmol/L Carbon Dioxide (22-30) mmol/L Anion Gap mmol/L BUN (9-20) mg/dL Creatinine (0.66-1.25) mg/dL Est GFR (CKD-EPI)AfAm (>60 ml/min/1.73 sqM) Est GFR (CKD-EPI)NonAf (>60 ml/min/1.73 sqM) Glucose (74-99) mg/dL Lactic Ac Sepsis Rflx Y Plasma Lactic Acid Balaji (0.7-2.0) mmol/L Calcium (8.4-10.2) mg/dL Magnesium (1.6-2.3) mg/dL Total Bilirubin (0.2-1.3) mg/dL AST (17-59) U/L ALT (4-49) U/L Alkaline Phosphatase (38-126) U/L Troponin I (0.000-0.034) ng/mL NT-Pro-B Natriuret Pep pg/mL Total Protein (6.3-8.2) g/dL Albumin (3.5-5.0) g/dL Amylase (30-110) U/L Lipase (23-300) U/L Urine Color Urine Appearance (Clear) Urine pH (5.0-8.0) Ur Specific Worth (1.001-1.035) Urine Protein (Negative) Urine Glucose (UA) (Negative) Urine Ketones (Negative) Urine Blood (Negative) Urine Nitrite (Negative) Urine Bilirubin (Negative) Urine Urobilinogen (<2.0) mg/dL Ur Leukocyte Esterase (Negative) Urine RBC (0-5) /hpf Urine WBC (0-5) /hpf Ur Squamous Epith Cells (0-4) /hpf Amorphous Sediment (None) /hpf Hyaline Casts (0-2) /lpf Urine Mucus (None) /hpf Serum Alcohol mg/dL Urine Legionella Ag (Negative) Disposition Clinical Impression: Pneumonia, Alcohol withdrawal, Elevated troponin Disposition: ADMITTED IP TO THIS HOSP Condition: Stable Is patient prescribed a controlled substance at d/c from ED?: No
[2024-12-06 00:29] LABS: HCT 37.2 % (39.6-50.0); HGB 11.9 g/dL (13.0-17.0); MCH 34.8 pg (27.0-32.0); MCHC 32.0 g/dL (32.0-37.0); MCV 108.8 fL (80.0-97.0); RBC 3.42 10*6/uL (4.40-5.60); RDW 16.9 % (11.5-14.5); WBC 17.52 10*3/uL (4.50-10.00)
[2024-12-06 00:30] LABS: VBG HCO3 21.0 mmol/L (24-28); VBG PCO2 30.0 mmHg (37-51); VBG PH 7.45 (7.31-7.41)
[2024-12-06] MEDS: LACTATED RINGERS 1,000 ML IV SCH ×2 (00:35→00:36)
[2024-12-06 00:42] LABS: ALT 44 U/L (4-49); AST 165 U/L (17-59); African American GFR (CKD) >90 (>60 ml/min/1.73 sqM); Albumin 2.9 g/dL (3.5-5.0); Alkaline Phosphatase 218 U/L (38-126); Anion Gap 10 mmol/L; Blood Urea Nitrogen 19 mg/dL (9-20); Calcium 9.3 mg/dL (8.4-10.2); Carbon Dioxide 21 mmol/L (22-30); Chloride 106 mmol/L (98-107); Glucose 124 mg/dL (74-99); Magnesium 2.3 mg/dL (1.6-2.3); Non-African American GFR(CKD) >90 (>60 ml/min/1.73 sqM); Potassium 5.3 mmol/L (3.5-5.1); Sodium 137 mmol/L (137-145); Total Protein 5.8 g/dL (6.3-8.2)
[2024-12-06 00:46] LABS: Platelet Count 144 10*3/uL (140-440)
[2024-12-06 00:50] LABS: INR 1.1 (<1.2); Partial Thromboplastin Time 20.9 sec (22.0-30.0); Prothrombin Time 11.6 sec (10.0-12.5)
[2024-12-06 00:51] LABS: NT-Pro-B-Type Natriuretic Pept 3800 pg/mL
[2024-12-06 01:05] LABS: Amorphous Sediment,Urine Occasional /hpf; Bilirubin,Urine Negative (Negative); Blood,Urine Negative (Negative); Color,Urine Yellow; Glucose,Urine (UA) Negative (Negative); Hyaline Casts,Urine 1 /lpf (0-2); Ketones,Urine Negative (Negative); Leukocyte Esterase,Urine Trace (Negative); Mucus,Urine Few /hpf; Nitrite,Urine Negative (Negative); PH, Urine 6.0 (5.0-8.0); Protein,Urine Trace (Negative); RBC,Urine 4 /hpf (0-5); Specific Gravity,Urine 1.020 (1.001-1.035); Squamous Epithelial Cell,Urine <1 /hpf (0-4); Urobilinogen,Urine 4.0 mg/dL (<2.0); WBC,Urine 18 /hpf (0-5)
[2024-12-06 01:17] LABS: Amylase 73 U/L (30-110); Lipase 392 U/L (23-300)
[2024-12-06] MEDS: AZITHROMYCIN 500 MG in SODIUM CHLORIDE 0.9% 250 ML IVPB STA (01:38)
--- NOTE | 2024-12-06 01:44 | XR ---
EXAM: XR Chest, 1 View CLINICAL HISTORY: ITS.REASON XR Reason: difficulty breathing TECHNIQUE: Frontal view of the chest. COMPARISON: No relevant prior studies available. FINDINGS: Lungs: Bilateral lower lung field consolidations, consistent with multilobar pneumonia. Pleural space: Unremarkable. No pneumothorax. Heart: Unremarkable. No cardiomegaly. Mediastinum: Unremarkable. Bones/joints: Unremarkable. IMPRESSION: Bilateral lower lung field consolidations, consistent with multilobar pneumonia.
[2024-12-06] MEDS ORDERED: PNEUMONIA PROTOCOL UTILIZED 1 EACH MISC PO PRN (01:48)
[2024-12-06] MEDS ORDERED: ALBUTEROL NEBULIZED 2.5 MG/3 ML INHALATION PRN (01:48)
[2024-12-06 01:51] LABS: Lymphocytes # (M) 4.38 k/uL (1.0-4.8); Monocytes # (M) 1.23 k/uL (0-1.0); Neutrophils # (M) 11.91 k/uL (1.3-7.7); Neutrophils % (M) 68 %; Total Cells Counted 100
[2024-12-06] MEDS ORDERED: LORazepam 1 MG/0.5 ML VIAL IV PRN (01:52)
--- NOTE | 2024-12-06 04:43 | P.CNPUL ---
History of Present Illness Consult date: 12/06/24 Requesting physician: Sabino De La Fuente Reason for consult: pneumonia Chief complaint: Respiratory distress History of present illness: Patient is a 49-year-old male with past medical history consistent of alcoholism, liver cirrhosis, esophageal varices with bands, GI bleed, recurrent abdominal ascites with previous paracentesis, chronic pancreatitis, polysubstance abuse, current tobacco dependence, COPD. His primary care provider is Dr. Meza. Patient brought in by EMS late last night and state respiratory distress. Patient was placed on BiPAP on arrival. Chest x-ray showing enlarged cardiac silhouette, diffuse bilateral lower lung field consolidations consistent with multilobar pneumonia. Tachypneic, tachycardic, acute leukocytosis, with low-grade fever. Patient received empiric dose azithromycin and Rocephin in the ED. CBC with a WBC count of 17.52, hemoglobin 11.9, platelets 144. CMP: Sodium 137, potassium 5.3, chloride 106, serum bicarb 21, BUN 19, creatinine 0.67, glucose 124. Lactic was elevated at 5.1 and is trending down to 3.9. LFTs mildly elevated. Lipase 392, amylase 73. Troponin elevated at 0.543 possibly secondary to supply/demand mismatch. EKG: Sinus ta chycardia, rate 110 bpm, no acute ST segment elevations or T wave inversions. NT proBNP was 3800. Most recent echocardiogram dating back to 2017, estimating a LV function of 55 to 60%. No significant valvular abnormalities were reported. I did receive from Dr. De La uFente who was concerned that this patient may decompensate, and would be better monitored in the intensive care unit. Evaluating the patient in the emergency department he is on BiPAP with settings 12/6 and FiO2 of 70%. He is tachypneic breathing the mid 30s. Despite this, relatively calm and able to answer questioning. No signs of CO2 narcosis. He states that he went on a roland approximately 3 to 4 days ago. Previously, he drank half a gallon of liquor per day and now he is down to 1 pint per day. Serum alcohol level was 79 on arrival. He is unsure of exactly when, but developed increasingly worsening shortness of breath with associated cough and subjective fevers. Denies sick contacts. Denies recent travel. States he lives at home with his parents. Denies chest pain or lower extremity swelling. Most recent vital signs temperature 99.8 F, heart rate 103 bpm, blood pressure 133/83 mmHg, tachypneic, SpO2 reading 96% on bedside monitor. Review of Systems REVIEW OF SYSTEMS: CONSTITUTIONAL: Denies any recent significant weight loss or weight gain. EYES: Denies change in vision. EARS, NOSE, MOUTH, THROAT: Denies headaches, denies sore throat. CARDIOVASCULAR: Denies chest pain, palpitations or syncopal episodes. RESPIRATORY: See HPI GASTROINTESTINAL: Endorses chronic mid to left upper abdominal pain. Denies change in appetite, nausea and vomiting, or diarrhea GENITOURINARY: Denies hematuria, denies infections. MUSKULOSKELETAL: Denies pain, denies swelling. INTEGUMENTARY: Denies rash, denies eczema. NEUROLOGICAL: Denies recent memory loss, no recent seizure activity. PSYCHIATRIC: Denies anxiety, denies depression. HEMATOLOGIC/LYMPHATIC: Denies anemia, denies enlarged lymph node Past Medical History Past Medical History: Asthma, Cancer, GI Bleed, Liver Disease, Pneumonia, Renal Disease, Skin Disorder Additional Past Medical History / Comment(s): Liver cirrhosis, portal HTN, abdominal ascities, pancreatitis, upper and lower GI bleeds, bleeding ulcers, esophageal varicies-banded, thrombocytopemia, chronic anemia, gallstones, nephrolithiasis/hematuria, L inguinal hernia, psoriasis; paracentesis, umbilical hernia, left foot injury, pancreatitis History of Any Multi-Drug Resistant Organisms: MRSA Date of last positivie culture/infection: 12/09/13 MDRO Source:: Right first finger Past Surgical History: Appendectomy, Cholecystectomy, Hernia Repair, Orthopedic Surgery Additional Past Surgical History / Comment(s): EGDs/varicies banding/colonoscopy, paracentesis, right hand tendon repair, right knee arthroscopy, cystoscopy for kidney stone removal, right hand ring finger surgery. surgery for umbilical hernia, Hernia repair on 10/13 at [facility]. Past Anesthesia/Blood Transfusion Reactions: Previous Problems w/ Anesthesia, Motion Sickness Additional Past Anesthesia/Blood Transfusion Reaction / Comment(s): Woke up during scope procedure. Past Psychological History: Anxiety, Bipolar, Depression, PTSD Smoking Status: Current every day smoker Past Alcohol Use History: None Reported Past Drug Use History: None Reported - Past Family History Mother Family Medical History: No Reported History Additional Family Medical History / Comment(s): Mother has health issues from a MVA-pt did not elaborate. Father Family Medical History: Vascular Disorder Additional Family Medical History / Comment(s): Prostate issues grandpa. Brain aneurysm father. Medications and Allergies Home Medications Medication Instructions Recorded Confirmed Type Lactulose 20 gm PO TID 11/10/23 11/02/24 History Multivit-Mins/Iron/Folic/Lycop 1 tab PO DAILY 11/29/23 11/02/24 History [Centrum Men's Tablet] Magnesium Oxide [Mag-Ox] 400 mg PO DAILY 06/21/24 11/02/24 History Potassium Gluconate 99 mg PO DAILY 06/21/24 11/02/24 History Pantoprazole Sodium [Protonix] 40 mg PO BID #60 tab 07/14/24 11/02/24 Rx HYDROcodone/APAP 10-325MG [[place] 1 tab PO TID PRN 30 Days #90 tab 09/13/24 11/02/24 Rx 10-325] Albuterol Sulfate [Albuterol 1 puff INHALATION RT-Q4H PRN 11/02/24 11/02/24 History Sulfate Hfa] Fluticasone/Umeclidin/Vilanter 1 puff INHALATION RT-DAILY 11/02/24 11/02/24 History [Trelegy Ellipta 100-62.5-25] Nicotine 21Mg/24Hr Patch [Habitrol] 1 patch TRANSDERM DAILY PRN 11/02/24 11/02/24 History atenoloL [Tenormin] 25 mg PO DAILY 11/02/24 11/02/24 History Thiamine [Vitamin B-1] 100 mg PO DAILY tab 11/06/24 Rx predniSONE [Deltasone] 40 mg PO DAILY #30 tab 11/06/24 Rx Allergies Allergy/AdvReac Type Severity Reaction Status Date / Time No Known Allergies Allergy Verified 12/06/24 00:05 Physical Exam Vitals: Vital Signs Temp Pulse Resp BP Pulse Ox FiO2 12/06/24 03:54 60 12/06/24 02:00 103 H 25 H 133/83 96 12/06/24 01:15 60 12/06/24 00:20 80 12/06/24 00:19 80 12/05/24 23:59 99.8 F H 118 H 30 H 144/63 94 L Intake and Output 12/05/24 12/05/2412/06/25 14:59 22:59 06:59 Other: Weight 89.358 kg GENERAL EXAM: Alert, 49-year-old male, appearing older than stated age, on BiPAP, in moderate respiratory distress and tachypneic. No signs of CO2 narcosis. HEAD: Normocephalic and atraumatic EYES: Normal reaction of pupils, equal size. NOSE: Clear with pink turbinates. THROAT: No erythema or exudates. NECK: No masses, no JVD. CHEST: No chest wall deformity. LUNGS: Equal air entry with bibasilar inspiratory crackles. No wheezing, rhonchi, focal dullness. On BiPAP with settings 12/6 and FiO2 of 70% CVS: S1 and S2 normal with no audible murmur, regular rhythm. No extra heart sounds ABDOMEN: No hepatosplenomegaly, active bowel sounds, no guarding or rigidity. SPINE: No scoliosis or deformity SKIN: No rashes CENTRAL NERVOUS SYSTEM: No focal deficits, tone is normal in all 4 extremities. EXTREMITIES: There is no peripheral edema, clubbing, or cyanosis. Peripheral pulses are intact. Results - Laboratory Findings CBC and BMP: 12/06/24 00:06 12/06/24 00:06 PT/INR, D-dimer PT 11.6 sec (10.0-12.5) 12/06/24 00:06 INR 1.1 (<1.2) 12/06/24 00:06 Abnormal lab findings: Abnormal Labs 12/06/24 12/06/24 12/06/24 00:06 00:06 00:06 WBC 17.52 H RBC 3.42 L Hgb 11.9 L Hct 37.2 L MCV 108.8 H MCH 34.8 H Immature Gran # 0.14 H Neutrophils # (Manual) 11.91 H Monocytes # (Manual) 1.23 H APTT 20.9 L VBG pH VBG pCO2 VBG HCO3 Potassium 5.3 H Carbon Dioxide 21 L Glucose 124 H Plasma Lactic Acid Balaji Total Bilirubin 2.6 H AST 165 H Alkaline Phosphatase 218 H Troponin I Total Protein 5.8 L Albumin 2.9 L Lipase Urine Protein Ur Leukocyte Esterase Urine WBC Amorphous Sediment Urine Mucus 12/06/24 12/06/24 12/06/24 00:06 00:06 00:06 WBC RBC Hgb Hct MCV MCH Immature Gran # Neutrophils # (Manual) Monocytes # (Manual) APTT VBG pH 7.45 H VBG pCO2 30 L VBG HCO3 21 L Potassium Carbon Dioxide Glucose Plasma Lactic Acid Balaji 5.1 H* Total Bilirubin AST Alkaline Phosphatase Troponin I 0.543 H* Total Protein Albumin Lipase Urine Protein Ur Leukocyte Esterase Urine WBC Amorphous Sediment Urine Mucus 12/06/24 12/06/24 12/06/24 00:06 00:23 03:09 WBC RBC Hgb Hct MCV MCH Immature Gran # Neutrophils # (Manual) Monocytes # (Manual) APTT VBG pH VBG pCO2 VBG HCO3 Potassium Carbon Dioxide Glucose Plasma Lactic Acid Balaji 3.9 H* Total Bilirubin AST Alkaline Phosphatase Troponin I Total Protein Albumin Lipase 392 H Urine Protein Trace H Ur Leukocyte Esterase Trace H Urine WBC 18 H Amorphous Sediment Occasional H Urine Mucus Few H - Diagnostic Findings Chest x-ray: image reviewed Assessment and Plan Assessment: Acute hypoxemic respiratory failure, on BiPAP, secondary to above, chest x-ray showing cardiomegaly, diffuse bilateral lower lung field consolidations consistent with multilobar pneumonia, consider aspiration. Acute COPD exacerbation Alcohol intoxication, serum alcohol level 79 Acute leukocytosis Lactic acidemia, improving Chronic pancreatitis Abdominal pain Elevated troponin, suspect supply/demand mismatch Alcoholism, 1 pint per day drinker History of liver cirrhosis with esophageal varices and banding History of GI bleed History of recurrent abdominal ascites with previous paracentesis History of polysubstance abuse Chronic tobacco dependence Plan: Continue on BiPAP with the previously mentioned settings Chest x-ray showed cardiomegaly with diffuse bilateral lower lung infiltrates Add IV Zosyn NT-proBNP was elevated at 3800 Give 40 mg of IV Lasix Obtain echocardiogram Repeat troponin Monitor CIWA as per protocol At this time, patient would be best monitored in the intensive care unit I have personally seen and examined the patient, performed the documentation and the assessment and plan as written. Number of minutes spent on the visit:20 Time with Patient: Greater than 30
[2024-12-06] MEDS: methylPREDNISolone SOD SUCCI 125 MG/2 ML VIAL IV SCH (05:24)
[2024-12-06] MEDS: FUROSEMIDE 10 MG/ML 4 ML VIAL IV STA (05:24)
[2024-12-06 07:58] LABS: Glucose,Whole Blood 173 mg/dL (70-110)
[2024-12-06] MEDS: IPRATROPIUM-ALBUTEROL 3 ML NEB INHALATION SCH (08:48)
[2024-12-06] MEDS: BUDESONIDE 1 MG/2 ML NEBU INHALATION SCH (08:49)
[2024-12-06] MEDS: FORMOTEROL FUMARATE 20 MCG/2 ML NEBU INHALATION SCH (09:07)
[2024-12-06] MEDS: PIPERACILLIN-TAZOBACTAM 3.375 GM in SODIUM CHLORIDE 0.9% 100 ML IVPB SCH (09:32)
[2024-12-06] MEDS: LORazepam 1 MG/0.5 ML VIAL IV PRN ×2 (10:12→23:34)
--- NOTE | 2024-12-06 11:28 | P.HPIM ---
History of Present Illness H&P Date: 12/06/24 Chief Complaint: Alcohol intoxication, respiratory failure This is a 49-year-old male with past medical history significant for polysubstance abuse including alcohol, cocaine heroin marijuana, pancreatitis, chronic alcoholic hepatitis ,ascites with multiple paracentesis, esophageal varices with multiple banding's, chronic anemia, ventral hernia repair, bipolar, depression, anxiety, multiple other medical issues transferred to the ER via EMS with complaints of progressive dyspnea over the last couple days,accompanied by cough.endorses heavy alcohol use of 1 pint per day. On admission tachypneic, tachycardic, venous blood gases reported pH 7.45 [id number], bicarb 21, Tmax 99.8, WBC 17.52 lactic acid 5.1 decreased to 2.1 with IV fluid hydration. Chest x-ray reporting bilateral lower lung field consolidations consistent with multilobar pneumonia. Procalcitonin within normal limits, 0.40. ProBNP 3800, received Lasix. hemoglobin 11.9, platelets 144, INR 1.1. Troponin 0.543, 0.623, EKG reporting sinus tachycardia, prior echo 2017 reporting normal LV function, EF 55 to 60% with no significant valvular abnormalities/repeat echo ordered ordered. T. bili 2.6, AST 165, AST 44, alk phos 218. Amylase 73, lipase 392. Serum alcohol 79. maintained on BiPAP 60%, Zosyn, nebulized bronchodilators, IV steroids, Pulmicort and CIWA protocol. Recent CIWA score 8. Review of Systems ROS Statement: Those systems with pertinent positive or pertinent negative responses have been documented in the HPI. ROS Other: All systems not noted in ROS Statement are negative. Past Medical History Past Medical History: Asthma, Cancer, GI Bleed, Liver Disease, Pneumonia, Renal Disease, Skin Disorder Additional Past Medical History / Comment(s): Liver cirrhosis, portal HTN, abdominal ascities, pancreatitis, upper and lower GI bleeds, bleeding ulcers, esophageal varicies-banded, thrombocytopemia, chronic anemia, gallstones, nephrolithiasis/hematuria, L inguinal hernia, psoriasis; paracentesis, umbilical hernia, left foot injury, pancreatitis History of Any Multi-Drug Resistant Organisms: MRSA Date of last positivie culture/infection: 12/09/13 MDRO Source:: Right first finger Past Surgical History: Appendectomy, Cholecystectomy, Hernia Repair, Orthopedic Surgery Additional Past Surgical History / Comment(s): EGDs/varicies banding/colonoscopy, paracentesis, right hand tendon repair, right knee arthroscopy, cystoscopy for kidney stone removal, right hand ring finger surgery. surgery for umbilical hernia, Hernia repair on 10/13 at [facility]. Past Anesthesia/Blood Transfusion Reactions: Previous Problems w/ Anesthesia, Motion Sickness Additional Past Anesthesia/Blood Transfusion Reaction / Comment(s): Woke up during scope procedure. Past Psychological History: Anxiety, Bipolar, Depression, PTSD Smoking Status: Current every day smoker Past Alcohol Use History: None Reported Past Drug Use History: None Reported - Past Family History Mother Family Medical History: No Reported History Additional Family Medical History / Comment(s): Mother has health issues from a MVA-pt did not elaborate. Father Family Medical History: Vascular Disorder Additional Family Medical History / Comment(s): Prostate issues grandpa. Brain aneurysm father. Medications and Allergies Home Medications Medication Instructions Recorded Confirmed Type Multivit-Mins/Iron/Folic/Lycop 1 tab PO DAILY 11/29/23 12/06/24 History [Centrum Men's Tablet] Potassium Gluconate 99 mg PO BID 06/21/24 12/06/24 History Pantoprazole Sodium [Protonix] 40 mg PO BID #60 tab 07/14/24 12/06/24 Rx Albuterol Sulfate [Albuterol 1 puff INHALATION RT-Q4H PRN 11/02/24 12/06/24 History Sulfate Hfa] Fluticasone/Umeclidin/Vilanter 1 puff INHALATION RT-DAILY 11/02/24 12/06/24 History [Trelegy Ellipta 100-62.5-25] atenoloL [Tenormin] 25 mg PO DAILY 11/02/24 12/06/24 History Thiamine [Vitamin B-1] 100 mg PO DAILY tab 11/06/24 12/06/24 Rx Clotrimazole Nabila [Mycelex 10 mg MUCOUS MEM QID 12/06/24 12/06/24 History Nabila] Lidocaine Viscous 2% [Xylocaine 15 ml MUCOUS MEM QID 12/06/24 12/06/24 History Viscous] Magnesium Oxide [Magnesium] 500 mg PO DAILY 12/06/24 12/06/24 History Naltrexone Microspheres [VivitroL] 380 mg IM QMONTHLY 12/06/24 12/06/24 History Allergies Allergy/AdvReac Type Severity Reaction Status Date / Time No Known Allergies Allergy Verified 12/06/24 06:48 Physical Exam Vitals: Vital Signs Temp Pulse Resp BP Pulse Ox FiO2 12/06/24 09:12 101 H 12/06/24 09:03 105 H 12/06/24 09:02 105 H 12/06/24 08:50 95 95 60 12/06/24 08:49 60 12/06/24 07:50 98 26 H 145/86 96 12/06/24 06:10 100 24 140/83 95 12/06/24 04:19 97.3 F L 99 24 137/85 92 L 12/06/24 04:12 60 12/06/24 03:54 60 12/06/24 02:00 103 H 25 H 133/83 96 12/06/24 01:15 60 12/06/24 00:20 80 12/05/24 23:59 99.8 F H 118 H 30 H 144/63 94 L Intake and Output 12/05/24 12/06/24 12/06/24 22:59 06:59 14:59 Other: Weight 89.358 kg General: 49-year-old male, alert and oriented x 2, sitting up in bed. no acute distress. HEENT: [Normocephalic, atraumatic ,PERRL. EOMI. sclera nonicteric .no erythema or exudate.] Neck: Supple, no JVD Cardiac: [Heart regular in rate and rhythm. No S3. No S4. No clicks, rubs. No murmur.] Lungs: Unlabored, equal air entry, scattered crackles throughout Abdomen: Soft, nondistended,nontender,no guarding, no rigidity, no masses appreciated, positive bowel sounds. Extremes: [No edema no cyanosis no claudication normal pulses] Skin: [No jaundice, rash. warm and dry. ] Neurologic: CN II - XII grossly intact.] Results CBC & Chem 7: 12/07/24 03:11 12/07/24 03:11 Labs: Abnormal Lab Results - Last 24 Hours (Table) 12/06/24 12/06/24 12/06/24 Range/Units 00:06 00:06 00:06 WBC 17.52 H (4.50-10.00) 10*3/uL RBC 3.42 L (4.40-5.60) 10*6/uL Hgb 11.9 L (13.0-17.0) g/dL Hct 37.2 L (39.6-50.0) % MCV 108.8 H (80.0-97.0) fL MCH 34.8 H (27.0-32.0) pg Immature Gran # 0.14 H (0.00-0.04) 10*3/uL Neutrophils # (Manual) 11.91 H (1.3-7.7) k/uL Monocytes # (Manual) 1.23 H (0-1.0) k/uL APTT 20.9 L (22.0-30.0) sec VBG pH (7.31-7.41) VBG pCO2 (37-51) mmHg VBG HCO3 (24-28) mmol/L Potassium 5.3 H (3.5-5.1) mmol/L Carbon Dioxide 21 L (22-30) mmol/L Glucose 124 H (74-99) mg/dL POC Glucose (mg/dL) (70-110) mg/dL Plasma Lactic Acid Balaji (0.7-2.0) mmol/L Total Bilirubin 2.6 H (0.2-1.3) mg/dL AST 165 H (17-59) U/L Alkaline Phosphatase 218 H (38-126) U/L Troponin I (0.000-0.034) ng/mL Total Protein 5.8 L (6.3-8.2) g/dL Albumin 2.9 L (3.5-5.0) g/dL Lipase (23-300) U/L Urine Protein (Negative) Ur Leukocyte Esterase (Negative) Urine WBC (0-5) /hpf Amorphous Sediment (None) /hpf Urine Mucus (None) /hpf 12/06/24 12/06/24 12/06/24 Range/Units 00:06 00:06 00:06 WBC (4.50-10.00) 10*3/uL RBC (4.40-5.60) 10*6/uL Hgb (13.0-17.0) g/dL Hct (39.6-50.0) % MCV (80.0-97.0) fL MCH (27.0-32.0) pg Immature Gran # (0.00-0.04) 10*3/uL Neutrophils # (Manual) (1.3-7.7) k/uL Monocytes # (Manual) (0-1.0) k/uL APTT (22.0-30.0) sec VBG pH 7.45 H (7.31-7.41) VBG pCO2 30 L (37-51) mmHg VBG HCO3 21 L (24-28) mmol/L Potassium (3.5-5.1) mmol/L Carbon Dioxide (22-30) mmol/L Glucose (74-99) mg/dL POC Glucose (mg/dL) (70-110) mg/dL Plasma Lactic Acid Balaji 5.1 H* (0.7-2.0) mmol/L Total Bilirubin (0.2-1.3) mg/dL AST (17-59) U/L Alkaline Phosphatase (38-126) U/L Troponin I 0.543 H* (0.000-0.034) ng/mL Total Protein (6.3-8.2) g/dL Albumin (3.5-5.0) g/dL Lipase (23-300) U/L Urine Protein (Negative) Ur Leukocyte Esterase (Negative) Urine WBC (0-5) /hpf Amorphous Sediment (None) /hpf Urine Mucus (None) /hpf 12/06/24 12/06/24 12/06/24 Range/Units 00:06 00:23 03:09 WBC (4.50-10.00) 10*3/uL RBC (4.40-5.60) 10*6/uL Hgb (13.0-17.0) g/dL Hct (39.6-50.0) % MCV (80.0-97.0) fL MCH (27.0-32.0) pg Immature Gran # (0.00-0.04) 10*3/uL Neutrophils # (Manual) (1.3-7.7) k/uL Monocytes # (Manual) (0-1.0) k/uL APTT (22.0-30.0) sec VBG pH (7.31-7.41) VBG pCO2 (37-51) mmHg VBG HCO3 (24-28) mmol/L Potassium (3.5-5.1) mmol/L Carbon Dioxide (22-30) mmol/L Glucose (74-99) mg/dL POC Glucose (mg/dL) (70-110) mg/dL Plasma Lactic Acid Balaji 3.9 H* (0.7-2.0) mmol/L Total Bilirubin (0.2-1.3) mg/dL AST (17-59) U/L Alkaline Phosphatase (38-126) U/L Troponin I (0.000-0.034) ng/mL Total Protein (6.3-8.2) g/dL Albumin (3.5-5.0) g/dL Lipase 392 H (23-300) U/L Urine Protein Trace H (Negative) Ur Leukocyte Esterase Trace H (Negative) Urine WBC 18 H (0-5) /hpf Amorphous Sediment Occasional H (None) /hpf Urine Mucus Few H (None) /hpf 12/06/24 12/06/24 12/06/24 Range/Units 05:42 07:14 07:56 WBC (4.50-10.00) 10*3/uL RBC (4.40-5.60) 10*6/uL Hgb (13.0-17.0) g/dL Hct (39.6-50.0) % MCV (80.0-97.0) fL MCH (27.0-32.0) pg Immature Gran # (0.00-0.04) 10*3/uL Neutrophils # (Manual) (1.3-7.7) k/uL Monocytes # (Manual) (0-1.0) k/uL APTT (22.0-30.0) sec VBG pH (7.31-7.41) VBG pCO2 (37-51) mmHg VBG HCO3 (24-28) mmol/L Potassium (3.5-5.1) mmol/L Carbon Dioxide (22-30) mmol/L Glucose (74-99) mg/dL POC Glucose (mg/dL) 173 H (70-110) mg/dL Plasma Lactic Acid Balaji 2.1 H* (0.7-2.0) mmol/L Total Bilirubin (0.2-1.3) mg/dL AST (17-59) U/L Alkaline Phosphatase (38-126) U/L Troponin I 0.623 H* (0.000-0.034) ng/mL Total Protein (6.3-8.2) g/dL Albumin (3.5-5.0) g/dL Lipase (23-300) U/L Urine Protein (Negative) Ur Leukocyte Esterase (Negative) Urine WBC (0-5) /hpf Amorphous Sediment (None) /hpf Urine Mucus (None) /hpf Assessment and Plan Assessment: Alcohol intoxication, serum level 79 Acute COPD exacerbation Acute hypoxic respiratory failure, BiPAP dependent, secondary to all the above ,multilobar pneumonia, possible aspiration along with possible underlying CHF. Lactic acidosis, improving with IV fluid hydration Elevated troponins, NSTEMI suspect typeII related to mismatch supply and demand,cardiology following Hyperammonemia Chronic abdominal pain Chronic pancreatitis History of esophageal varices with multiple bandings Elevated T. bili, LFTs in a patient with history of alcoholic cirrhosis of liver, chronic alcoholic hepatitis Portal hypertension History of ascites with multiple paracentesis Alcohol dependence History of polysubstance abuse including cocaine, heroin, marijuana Noncompliance Chronic alcoholic hepatitis Chronic nicotine dependence History of nephrolithiasis, chronic anemia No code Plan: Continue on current medication regime ,monitoring and symptomatic treatment. Aggressive pulmonary toileting with nebulized bronchodilators, Pulmicort, IV steroids and antibiotics. CEPH viral study pending. CIWA pro tocol. Ammonia level ordered. Lactulose ordered 3 times daily-patient is noncompliant with this outpatient. Alcohol abstinence and nicotine cessation reinforced. Cardiology and pulmonary following, echo pending. Advanced directive brought in by family, patient's CODE STATUS changed to code. The impression and plan of care has been dictated as directed. : I performed a history and examination of this patient, discussed the same with the dictator. I agree with the dictator's note ,documented as a scribe. Any additional findings or plans will be noted.
--- NOTE | 2024-12-06 11:52 | P.CRDCN ---
History of Present Illness History of present illness: HISTORY OF PRESENTING ILLNESS This is a pleasant 49-year-old with past medical history significant for alcoholism, liver cirrhosis, esophageal varices with bands, GI bleed, ascites with previous paracentesis as well as pancreatitis, previous heavy alcohol use, tobacco abuse, COPD. 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 Patient states he had RSV along with his mother approximately a month ago and then more recently has been having increased cough and fevers and chills over the last 3 to 4 days. He also has been having some chest tightness and pressure which has been off-and-on over the last few days. He states he has been drinking somewhat however not as heavy as he previously did, previously drinking half of a gallon daily. He is still smoking. He denies any marijuana or cocaine. Denies any family history of coronary artery disease. He was found to have maximum t emperature 99.8. Chest x-ray shows bilateral infiltrates. He was placed on BiPAP and currently feels somewhat better in terms of her shortness of breath. Patient does have advanced directive per nursing with patient being DNR Blood work shows white blood cell count 17, hemoglobin 11.9, creatinine 0.6, lactic acid 5.1, troponin 0.54, 0.62. proBNP 3800, albumin 2.9, lipase 392. Shows normal sinus rhythm, normal axis, minimal 0.[address] depressions in the inferior leads. REVIEW OF SYSTEMS At the time of my exam: CONSTITUTIONAL: Denies fever or chills. CARDIOVASCULAR: +chest pain, +shortness of breath, no orthopnea, PND or palpitations. RESPIRATORY: + cough. GASTROINTESTINAL: Denies abdominal pain, diarrhea, constipation, nausea or vomiting. MUSCULOSKELETAL: Denies myalgias. NEUROLOGIC: Denies numbness, tingling or weakness. ENDOCRINE: Denies fatigue, weight change, polydipsia or polyurina. GENITOURINARY: Denies burning, hematuria or urgency with micturation. HEMATOLOGIC: Denies history of anemia or bleeding. PHYSICAL EXAMINATION Vital signs reviewed. CONSTITUTIONAL: No apparent distress. HEENT: Head is normocephalic. Pupils are equal, round. Sclerae anicteric. Mucous membranes of the mouth are moist. No JVD. No carotid bruit. CHEST EXAMINATION: Lungs are clear to auscultation. No chest wall tenderness is noted on palpation or with deep breathing. HEART EXAMINATION: Regular rate and rhythm. S1, S2 heard. No murmurs, gallops or rub. ABDOMEN: Soft, nontender. Positive bowel sounds. EXTREMITIES: 2+ peripheral pulses, no lower extremity edema and no calf tenderness. NEUROLOGIC EXAMINATION: Patient is awake, alert and oriented x3. ASSESSMENT Acute on chronic respiratory failure appears mainly related to pneumonia Non-STEMI likely type II mechanism related to pneumonia with significant hypoxia and lactic acidosis Precordial chest pain, may be related to pneumonia however rule out cardiac source Hypertension Alcohol abuse Previous liver cirrhosis currently appears compensated History of chronic pancreatitis Medical noncompliance Tobacco abuse PLAN Majority of presentation appears consistent with pneumonia and respiratory failure related to pneumonia. Non-STEMI likely type II mechanism however he is having some chest discomfort. Chest discomfort may be related to pneumonia however monitor closely for any type I non-STEMI. Continue with beta-collin with atenolol and more aggressive blood pressure regimen and we will add losartan. Check 2D echo. Add aspirin. Depending on workup or if he has more chest discomfort we may add heparin drip however does have history of anemia and varices from before. Past Medical History Past Medical History: Asthma, Cancer, GI Bleed, Liver Disease, Pneumonia, Renal Disease, Skin Disorder Additional Past Medical History / Comment(s): Liver cirrhosis, portal HTN, abdominal ascities, pancreatitis, upper and lower GI bleeds, bleeding ulcers, esophageal varicies-banded, thrombocytopemia, chronic anemia, gallstones, nephrolithiasis/hematuria, L inguinal hernia, psoriasis; paracentesis, umbilical hernia, left foot injury, pancreatitis History of Any Multi-Drug Resistant Organisms: MRSA Date of last positivie culture/infection: 12/09/13 MDRO Source:: Right first finger Past Surgical History: Appendectomy, Cholecystectomy, Hernia Repair, Orthopedic Surgery Additional Past Surgical History / Comment(s): EGDs/varicies band ing/colonoscopy, paracentesis, right hand tendon repair, right knee arthroscopy, cystoscopy for kidney stone removal, right hand ring finger surgery. surgery for umbilical hernia, Hernia repair on 10/13 at [facility]. Past Anesthesia/Blood Transfusion Reactions: Previous Problems w/ Anesthesia, Motion Sickness Additional Past Anesthesia/Blood Transfusion Reaction / Comment(s): Woke up during scope procedure. Past Psychological History: Anxiety, Bipolar, Depression, PTSD Smoking Status: Current every day smoker Past Alcohol Use History: None Reported Past Drug Use History: None Reported - Past Family History Mother Family Medical History: No Reported History Additional Family Medical History / Comment(s): Mother has health issues from a MVA-pt did not elaborate. Father Family Medical History: Vascular Disorder Additional Family Medical History / Comment(s): Prostate issues grandpa. Brain aneurysm father. Medications and Allergies Home Medications Medication Instructions Recorded Confirmed Type Multivit-Mins/Iron/Folic/Lycop 1 tab PO DAILY 11/29/23 12/06/24 History [Centrum Men's Tablet] Potassium Gluconate 99 mg PO BID 06/21/24 12/06/24 History Pantoprazole Sodium [Protonix] 40 mg PO BID #60 tab 07/14/24 12/06/24 Rx Albuterol Sulfate [Albuterol 1 puff INHALATION RT-Q4H PRN 11/02/24 12/06/24 History Sulfate Hfa] Fluticasone/Umeclidin/Vilanter 1 puff INHALATION RT-DAILY 11/02/24 12/06/24 History [Trelegy Ellipta 100-62.5-25] atenoloL [Tenormin] 25 mg PO DAILY 11/02/24 12/06/24 History Thiamine [Vitamin B-1] 100 mg PO DAILY tab 11/06/24 12/06/24 Rx Clotrimazole Nabila [Mycelex 10 mg MUCOUS MEM QID 12/06/24 12/06/24 History Nabila] Lidocaine Viscous 2% [Xylocaine 15 ml MUCOUS MEM QID 12/06/24 12/06/24 History Viscous] Magnesium Oxide [Magnesium] 500 mg PO DAILY 12/06/24 12/06/24 History Naltrexone Microspheres [VivitroL] 380 mg IM QMONTHLY 12/06/24 12/06/24 History Allergies Allergy/AdvReac Type Severity Reaction Status Date / Time No Known Allergies Allergy Verified 12/06/24 06:48 Physical Exam Vitals: Vital Signs Temp Pulse Resp BP Pulse Ox FiO2 12/06/24 09:12 101 H 12/06/24 09:03 105 H 12/06/24 09:02 105 H 12/06/24 08:50 95 95 60 12/06/24 08:49 60 12/06/24 07:50 98 26 H 145/86 96 12/06/24 06:10 100 24 140/83 95 12/06/24 04:19 97.3 F L 99 24 137/85 92 L 12/06/24 04:12 60 12/06/24 03:54 60 12/06/24 02:00 103 H 25 H 133/83 96 12/06/24 01:15 60 12/06/24 00:20 80 12/05/24 23:59 99.8 F H 118 H 30 H 144/63 94 L Intake and Output 12/05/24 12/06/24 12/06/24 22:59 06:59 14:59 Other: Weight 89.358 kg Results 12/06/24 00:06 12/06/24 00:06 Cardiac Enzymes 12/06/24 12/06/24 12/06/24 Range/Units 00:06 00:06 05:42 AST 165 H (17-59) U/L Troponin I 0.543 H* 0.623 H* (0.000-0.034) ng/mL Coagulation 12/06/24 Range/Units 00:06 PT 11.6 (10.0-12.5) sec APTT 20.9 L (22.0-30.0) sec CBC 12/06/24 Range/Units 00:06 WBC 17.52 H (4.50-10.00) 10*3/uL RBC 3.42 L (4.40-5.60) 10*6/uL Hgb 11.9 L (13.0-17.0) g/dL Hct 37.2 L (39.6-50.0) % Plt Count 144 D (140-440) 10*3/uL Comprehensive Metabolic Panel 12/06/24 Range/Units 00:06 Sodium 137 (137-145) mmol/L Potassium 5.3 H (3.5-5.1) mmol/L Chloride 106 (98-107) mmol/L Carbon Dioxide 21 L (22-30) mmol/L BUN 19 (9-20) mg/dL Creatinine 0.67 (0.66-1.25) mg/dL Glucose 124 H (74-99) mg/dL Calcium 9.3 (8.4-10.2) mg/dL AST 165 H (17-59) U/L ALT 44 (4-49) U/L Alkaline Phosphatase 218 H (38-126) U/L Total Protein 5.8 L (6.3-8.2) g/dL Albumin 2.9 L (3.5-5.0) g/dL Current Medications Generic Name Dose Route Start Last Admin Trade Name Freq PRN Reason Stop Dose Admin Albuterol Sulfate 2.5 mg 12/06/24 01:48 Albuterol Nebulized 2.5 Mg/3 Ml INHALATION RT-Q4H PRN Shortness Of Breath Or Wheezing Albuterol/Ipratropium 3 ml 12/06/24 08:00 12/06/24 08:48 Ipratropium-Albuterol 3 Ml Neb INHALATION 3 ml RT-QID RADHA Administration Atenolol 25 mg 12/06/24 10:45 Atenolol 25 Mg Tab PO DAILY RADHA Budesonide 1 mg 12/06/24 08:00 12/06/24 08:49 Budesonide 1 Mg/2 Ml Nebu INHALATION 1 mg RT-BID RADHA Administration Chlordiazepoxide HCl 50 mg 12/06/24 01:52 Chlordiazepoxide 25 Mg Cap PO Q4HR PRN Ciwa 6 To 7 Formoterol Fumarate 20 mcg 12/06/24 08:00 12/06/24 09:07 Formoterol Fumarate 20 Mcg/2 Ml Nebu INHALATION 20 mcg RT-BID RADHA Administration Lactated Ringer's 1,000 mls @ 75 mls/hr 12/06/24 00:30 12/06/24 10:13 Lactated Ringers IV 75 mls/hr .[id number] RADHA Administration Piperacillin Sod/Tazobactam 100 mls @ 25 mls/hr 12/06/24 08:00 12/06/24 09:32 Sod 3.375 gm/ Sodium Chloride IVPB 25 mls/hr Q8HR RADHA Administration Protocol Lactulose 20 gm 12/06/24 10:45 Lactulose 20 Gm/30 Ml Cup PO TID RADHA Lorazepam 2 mg 12/06/24 01:52 Lorazepam 1 Mg/0.5 Ml Vial IV 12/08/24 01:52 Q10M PRN CIWA 16 or higher Lorazepam 1 mg 12/06/24 01:52 12/06/24 10:12 Lorazepam 1 Mg/0.5 Ml Vial IV 1 mg Q2HR PRN Administration CIWA 8 or 9 Lorazepam 1 mg 12/06/24 01:52 Lorazepam 1 Mg/0.5 Ml Vial IV Q1HR PRN CIWA 10 to 15 Methylprednisolone Sodium Succinate 60 mg 12/06/24 06:00 12/06/24 05:24 Methylprednisolone Sod Succi 125 Mg/2 Ml Vial IV 60 mg Q6HR RADHA Administration Miscellaneous Information 1 each 12/06/24 01:48 Pneumonia Protocol Utilized 1 Each Misc PO ONCE PRN Per Protocol Morphine Sulfate 2 mg 12/06/24 04:08 Morphine Sulfate 2 Mg/Ml Syringe IVP Q6HR PRN Pain/Discomfort Pantoprazole Sodium 40 mg 12/06/24 11:00 Pantoprazole 40 Mg Tablet PO BID RADHA Thiamine HCl 100 mg 12/06/24 11:00 Thiamine 100 Mg Tab PO DAILY RADHA Intake and Output 12/05/24 12/06/24 12/06/24 22:59 06:59 14:59 Other: Weight 89.358 kg 12/06/24 00:06 12/06/24 00:06
[2024-12-06 12:26] LABS: Glucose,Whole Blood 135 mg/dL (70-110)
[2024-12-06] MEDS: LOSARTAN 25 MG TAB PO SCH (13:12)
[2024-12-06] MEDS: PANTOPRAZOLE 40 MG TABLET PO SCH (13:22)
[2024-12-06] MEDS: THIAMINE 100 MG TAB PO SCH (13:22)
[2024-12-06] MEDS: ASPIRIN 81 MG PO SCH (13:23)
[2024-12-06] MEDS: LACTULOSE 20 GM/30 ML CUP PO SCH (13:23)
[2024-12-06] MEDS: MORPHINE SULFATE 2 MG/ML SYRINGE IVP PRN (13:38)
[2024-12-06 15:08] LABS: RSV Not Detected (Not Detectd)
[2024-12-07 01:05] LABS: Glucose,Whole Blood 181 mg/dL (70-110)
[2024-12-07 04:26] LABS: African American GFR (CKD) >90 (>60 ml/min/1.73 sqM); Anion Gap 6 mmol/L; Blood Urea Nitrogen 31 mg/dL (9-20); Calcium 8.2 mg/dL (8.4-10.2); Carbon Dioxide 25 mmol/L (22-30); Chloride 103 mmol/L (98-107); Glucose 154 mg/dL (74-99); Non-African American GFR(CKD) >90 (>60 ml/min/1.73 sqM); Potassium 4.5 mmol/L (3.5-5.1); Sodium 134 mmol/L (137-145)
[2024-12-07 04:52] LABS: Basophils # (A) 0.05 10*3/uL (0.00-0.10); Basophils % (A) 0.2 %; Eosinophils # (A) 0.00 10*3/uL (0.04-0.35); Eosinophils % (A) 0.0 %; HCT 36.6 % (39.6-50.0); HGB 12.0 g/dL (13.0-17.0); Lymphocytes # (A) 0.77 10*3/uL (0.90-5.00); Lymphocytes % (A) 3.2 %; MCH 35.2 pg (27.0-32.0); MCHC 32.8 g/dL (32.0-37.0); MCV 107.3 fL (80.0-97.0); Monocytes # (A) 1.00 10*3/uL (0.20-1.00); Monocytes % (A) 4.2 %; Neutrophils # (A) 21.94 10*3/uL (1.80-7.70); Neutrophils % (A) 91.5 %; Platelet Count 128 10*3/uL (140-440); RBC 3.41 10*6/uL (4.40-5.60); RDW 17.2 % (11.5-14.5); WBC 23.97 10*3/uL (4.50-10.00)
[2024-12-07 06:26] LABS: Glucose,Whole Blood 153 mg/dL (70-110)
--- NOTE | 2024-12-07 08:03 | XR ---
EXAMINATION TYPE: XR chest 1V portable DATE OF EXAM: 12/07/2024 5:17 AM COMPARISON: 12/06/2024 CLINICAL INDICATION: Male, 49 years old with history of pneumonia, , FINDINGS: Heart moderately enlarged. Hyperinflation. Diffuse interstitial opacities. Improvement in airspace di sease previously seen at the lower lungs. IMPRESSION: COPD with persistent superimposed marked interstitial infiltrates. The airspace disease at the lower lungs has improved. [facility], Workstation: [facility], 12/07/2024 8:01 AM
[2024-12-07] MEDS ORDERED: THIAMINE 100 MG TAB PO SCH (09:00)
[2024-12-07] MEDS: FUROSEMIDE 10 MG/ML 4 ML VIAL IV STA (10:06)
--- NOTE | 2024-12-07 11:22 | P.PN ---
Subjective HISTORY OF PRESENTING ILLNESS This is a pleasant 49-year-old with past medical history significant for alcoholism, liver cirrhosis, esophageal varices with bands, GI bleed, ascites with previous paracentesis as well as pancreatitis, previous heavy alcohol use, tobacco abuse, COPD. 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 Patient states he had RSV along with his mother approximately a month ago and then more recently has been having increased cough and fevers and chills over the last 3 to 4 days. He also has been having some chest tightness and pressure which has been off-and-on over the last few days. He states he has been drinking somewhat however not as heavy as he previously did, previously drinking half of a gallon daily. He is still smoking. He denies any marijuana or cocaine. Denies any family history of coronary artery disease. He was found to have maximum temperature 99.8. Chest x-ray shows bilateral infiltrates. He was placed on BiPAP and currently feels somewhat better in terms of her shortness of breath. Patient does have advanced directive per nursing with patient being DNR Blood work shows white blood cell count 17, hemoglobin 11.9, creatinine 0.6, lactic acid 5.1, troponin 0.54, 0.62. proBNP 3800, albumin 2.9, lipase 392. Shows normal sinus rhythm, normal axis, minimal 0.[address] depressions in the inferior leads. 12/07 Patient seen and examined. Patient still complaining of some atypical epiga stric and chest pain somewhat reproducible and somewhat with deep inspiration and cough. Echocardiogram pending. Still remains on BiPAP. PHYSICAL EXAMINATION Vital signs reviewed. CONSTITUTIONAL: No apparent distress. HEENT: Head is normocephalic. Pupils are equal, round. Sclerae anicteric. Mucous membranes of the mouth are moist. No JVD. No carotid bruit. CHEST EXAMINATION: Lungs are clear to auscultation. No chest wall tenderness is noted on palpation or with deep breathing. HEART EXAMINATION: Regular rate and rhythm. S1, S2 heard. No murmurs, gallops or rub. ABDOMEN: Soft, nontender. Positive bowel sounds. EXTREMITIES: 2+ peripheral pulses, no lower extremity edema and no calf tende rness. NEUROLOGIC EXAMINATION: Patient is awake, alert and oriented x3. ASSESSMENT Acute on chronic respiratory failure appears mainly related to pneumonia Non-STEMI likely type II mechanism related to pneumonia with significant hypoxia and lactic acidosis Precordial chest pain, may be related to pneumonia however rule out cardiac source Hypertension Alcohol abuse Previous liver cirrhosis currently appears compensated History of chronic pancreatitis Medical noncompliance Tobacco abuse PLAN Majority of presentation appears consistent with pneumonia and respiratory failure related to pneumonia. Non-STEMI likely type II mechanism however he is having some chest discomfort. Chest discomfort appears more musculoskeletal, pleuritic and related to pneumonia however monitor closely for any type I non-STEMI. Continue with beta-collin with atenolol Losartan was added. Await 2D echo. Continue aspirin. Likely more conservative management with patient not being a good interventional candidate with history of varices and GI bleeding in the past. Objective - Vital Signs Vital signs: Vital Signs Temp 97.5 F L 12/07/24 04:00 Pulse 61 12/07/24 11:00 Resp 24 12/07/24 11:00 BP 140/80 12/07/24 11:00 Pulse Ox 96 12/07/24 11:00 FiO2 50 12/07/24 11:00 Intake & Output 12/06/24 12/07/24 12/07/24 18:59 06:59 18:59 Intake Total 600 625 345 Output Total 475 600 850 Balance 125 25 -505 Weight 89.358 kg 97.5 kg Intake: IV 600 525 345 Lactated Ringers 1,000 ml 600 525 245 @ 10 mls/hr IV .Q24H RADHA Rx#:[id number] Piperacillin-Tazobactam 3 100 .375 gm In Sodium Chloride 0.9% 100 ml @ 25 mls/hr IVPB Q8HR RADHA Rx# :[id number] Intake, IV Titration 100 Amount Piperacillin-Tazobactam 3 100 .375 gm In Sodium Chloride 0.9% 100 ml @ 25 mls/hr IVPB Q8HR RADHA Rx# :[id number] Output: Urine 475 600 850 Other: Voiding Method External Catheter External Catheter - Labs CBC & Chem 7: 12/07/24 03:11 12/07/24 03:11 Labs: Abnormal Lab Results - Last 24 Hours (Table) 12/06/24 12/06/24 12/07/24 Range/Units 11:56 12:25 01:04 WBC (4.50-10.00) 10*3/uL RBC (4.40-5.60) 10*6/uL Hgb (13.0-17.0) g/dL Hct (39.6-50.0) % MCV (80.0-97.0) fL MCH (27.0-32.0) pg Plt Count (140-440) 10*3/uL Immature Gran # (0.00-0.04) 10*3/uL Neutrophils # (1.80-7.70) 10*3/uL Lymphocytes # (0.90-5.00) 10*3/uL Eosinophils # (0.04-0.35) 10*3/uL Sodium (137-145) mmol/L BUN (9-20) mg/dL Glucose (74-99) mg/dL POC Glucose (mg/dL) 135 H 181 H (70-110) mg/dL Calcium (8.4-10.2) mg/dL Ammonia 53 H (<30) umol/L 12/07/24 12/07/24 12/07/24 Range/Units 03:11 03:11 06:24 WBC 23.97 H (4.50-10.00) 10*3/uL RBC 3.41 L (4.40-5.60) 10*6/uL Hgb 12.0 L (13.0-17.0) g/dL Hct 36.6 L (39.6-50.0) % MCV 107.3 H (80.0-97.0) fL MCH 35.2 H (27.0-32.0) pg Plt Count 128 L (140-440) 10*3/uL Immature Gran # 0.21 H (0.00-0.04) 10*3/uL Neutrophils # 21.94 H (1.80-7.70) 10*3/uL Lymphocytes # 0.77 L (0.90-5.00) 10*3/uL Eosinophils # 0.00 L (0.04-0.35) 10*3/uL Sodium 134 L (137-145) mmol/L BUN 31 H (9-20) mg/dL Glucose 154 H (74-99) mg/dL POC Glucose (mg/dL) 153 H (70-110) mg/dL Calcium 8.2 L (8.4-10.2) mg/dL Ammonia (<30) umol/L
--- NOTE | 2024-12-07 11:46 | P.PN ---
Subjective Progress Note Date: 12/07/24 Principal diagnosis: Acute hypoxic respiratory failure, multifactorial Patient is a 49-year-old male with past medical history consistent of alcoholism, liver cirrhosis, esophageal varices with bands, GI bleed, recurrent abdominal ascites with previous paracentesis, chronic pancreatitis, polysubstance abuse, current tobacco dependence, COPD. His primary care provider is Dr. Meza. Patient brought in by EMS late last night and state respiratory distress. Patient was placed on BiPAP on arrival. Chest x-ray showing enlarged cardiac silhouette, diffuse bilateral lower lung field consolidations consistent with multilobar pneumonia. Tachypneic, tachycardic, acute leukocytosis, with low-grade fever. Patient received empiric dose azithromycin and Rocephin in the ED. CBC with a WBC count of 17.52, hemoglobin 11.9, platelets 144. CMP: Sodium 137, potassium 5.3, chloride 106, serum bicarb 21, BUN 19, creatinine 0.67, glucose 124. Lactic was elevated at 5.1 and is tr ending down to 3.9. LFTs mildly elevated. Lipase 392, amylase 73. Troponin elevated at 0.543 possibly secondary to supply/demand mismatch. EKG: Sinus tachycardia, rate 110 bpm, no acute ST segment elevations or T wave inversions. NT proBNP was 3800. Most recent echocardiogram dating back to 2017, estimating a LV function of 55 to 60%. No significant valvular abnormalities were reported. I did receive from Dr. De La Fuente who was concerned that this patient may decompensate, and would be better monitored in the intensive care unit. Evaluating the patient in the emergency department he is on BiPAP with settings 12/6 and FiO2 of 70%. He is tachypneic breathing the mid 30s. Despite this, r elatively calm and able to answer questioning. No signs of CO2 narcosis. He states that he went on a roland approximately 3 to 4 days ago. Previously, he drank half a gallon of liquor per day and now he is down to 1 pint per day. Serum alcohol level was 79 on arrival. He is unsure of exactly when, but developed increasingly worsening shortness of breath with associated cough and subjective fevers. Denies sick contacts. Denies recent travel. States he lives at home with his parents. Denies chest pain or lower extremity swelling. Most recent vital signs temperature 99.8 F, heart rate 103 bpm, blood pressure 133/83 mmHg, tachypneic, SpO2 reading 96% on bedside monitor. Patient was seen today on 12/03/2024, patient remains in the ICU, his overall clinical picture is slightly better today compared to yesterday, however his chest x-ray showed significant improvement in his interstitial infiltrate/edema. Patient did receive Lasix yesterday, and he will continue to receive Lasix to day. His procalcitonin level was a bit elevated at 0.40, BNP was elevated on admission, echocardiogram is pending. Again considering the improvement on his chest x-ray overnight, this speaks in favor of more pulmonary edema than true pneumonia. Although I suspect that we are dealing with both/pulmonary edema and pneumonia considering his presentation and his clinical history. Patient remains on BiPAP 04/21/50%, he will be transitioned to a nasal cannula. Again echocardiogram is pending. Patient remains on Zosyn empirically. His IV fluids will be cut down to KVO, patient will receive another dose of Lasix today, and will plan to continue the CIWA protocol. WBC count is 23.97 hemoglobin is 12 electrolytes are normal renal profile is normal Objective - Vital Signs Vital signs: Vital Signs Temp 97.5 F L 12/07/24 04:00 Pulse 80 12/07/24 11:25 Resp 24 12/07/24 11:00 BP 140/80 12/07/24 11:00 Pulse Ox 96 12/07/24 11:00 FiO2 50 12/07/24 11:25 Intake & Output 12/06/24 12/07/24 12/07/24 18:59 06:59 18:59 Intake Total 600 625 345 Output Total 122 792 9927 Balance 125 25 -905 Weight 89.358 kg 97.5 kg Intake: IV 600 525 345 Lactated Ringers 1,000 ml 600 525 245 @ 10 mls/hr IV .Q24H RADHA Rx#:[id number] Piperacillin-Tazobactam 3 100 .375 gm In Sodium Chloride 0.9% 100 ml @ 25 mls/hr IVPB Q8HR RADHA Rx# :[id number] Intake, IV Titration 100 Amount Piperacillin-Tazobactam 3 100 .375 gm In Sodium Chloride 0.9% 100 ml @ 25 mls/hr IVPB Q8HR RADHA Rx# :[id number] Output: Urine 452 499 9490 Other: Voiding Method External Catheter External Catheter - Exam GENERAL EXAM: Revealed 49-year-old white male arousable, not in distress, however he remains on BiPAP. HEAD: Normocephalic and atraumatic EYES: Normal reaction of pupils, equal size. NOSE: Clear with pink turbinates. THROAT: No erythema or exudates. NECK: No masses, no JVD. CHEST: No chest wall deformity. LUNGS: Fine crackles at the bases persist, no rhonchi no wheezes. CVS: S1 and S2 normal with no audible murmur, regular rhythm. No extra heart kyler nds ABDOMEN: No hepatosplenomegaly, active bowel sounds, no guarding or rigidity. SKIN: No rashes CENTRAL NERVOUS SYSTEM: Lethargic, but arousable, follows simple instructions EXTREMITIES: No clubbing, edema or cyanosis. - Labs CBC & Chem 7: 12/07/24 03:11 12/07/24 03:11 Labs: Abnormal Lab Results - Last 24 Hours (Table) 12/06/24 12/06/24 12/07/24 Range/Units 11:56 12:25 01:04 WBC (4.50-10.00) 10*3/uL RBC (4.40-5.60) 10*6/uL Hgb (13.0-17.0) g/dL Hct (39.6-50.0) % MCV (80.0-97.0) fL MCH (27.0-32.0) pg Plt Count (140-440) 10*3/uL Immature Gran # (0.00-0.04) 10*3/uL Neutrophils # (1.80-7.70) 10*3/uL Lymphocytes # (0.90-5.00) 10*3/uL Eosinophils # (0.04-0.35) 10*3/uL Sodium (137-145) mmol/L BUN (9-20) mg/dL Glucose (74-99) mg/dL POC Glucose (mg/dL) 135 H 181 H (70-110) mg/dL Calcium (8.4-10.2) mg/dL Ammonia 53 H (<30) umol/L 12/07/24 12/07/24 12/07/24 Range/Units 03:11 03:11 06:24 WBC 23.97 H (4.50-10.00) 10*3/uL RBC 3.41 L (4.40-5.60) 10*6/uL Hgb 12.0 L (13.0-17.0) g/dL Hct 36.6 L (39.6-50.0) % MCV 107.3 H (80.0-97.0) fL MCH 35.2 H (27.0-32.0) pg Plt Count 128 L (140-440) 10*3/uL Immature Gran # 0.21 H (0.00-0.04) 10*3/uL Neutrophils # 21.94 H (1.80-7.70) 10*3/uL Lymphocytes # 0.77 L (0.90-5.00) 10*3/uL Eosinophils # 0.00 L (0.04-0.35) 10*3/uL Sodium 134 L (137-145) mmol/L BUN 31 H (9-20) mg/dL Glucose 154 H (74-99) mg/dL POC Glucose (mg/dL) 153 H (70-110) mg/dL Calcium 8.2 L (8.4-10.2) mg/dL Ammonia (<30) umol/L Assessment and Plan Assessment: Impression: Acute hypoxemic respiratory failure, on BiPAP, secondary to above, chest x-ray showing cardiomegaly, diffuse bilateral lower lung field consolidations consistent congestive heart failure and suspect aspiration pneumonia. Chest x- ray showed significant improvement today compared to the chest x-ray on admission and that is more of a reason to suspect underlying congestive heart failure. Acute COPD exacerbation Alcohol intoxication, serum alcohol level 79 Acute leukocytosis Lactic acidemia, improving Chronic pancreatitis Abdominal pain Elevated troponin, suspect supply/demand mismatch History of liver cirrhosis with esophageal varices and banding History of GI bleed History of recurrent abdominal ascites with previous paracentesis History of polysubstance abuse Chronic tobacco dependence Recommendation: Continue to monitor in the ICU, Continue O2 and titrate accordingly Continue Zosyn empirically Continue diuretics, awaiting results of echocardiogram continue CIWA protocol Continue GI and DVT prophylaxis Cultures are pending Echocardiogram is pending Patient remains relatively ill, will continue to follow Time with Patient: Less than 30
[2024-12-07 12:38] LABS: Glucose,Whole Blood 244 mg/dL (70-110)
--- NOTE | 2024-12-07 13:48 | P.PN ---
Subjective Progress Note Date: 12/07/24 H&P Date: 12/06/24 Chief Complaint: Alcohol intoxication, respiratory failure This is a 49-year-old male with past medical history significant for polysubs tance abuse including alcohol, cocaine heroin marijuana, pancreatitis, chronic alcoholic hepatitis ,ascites with multiple paracentesis, esophageal varices with multiple banding's, chronic anemia, ventral hernia repair, bipolar, depression, anxiety, multiple other medical issues transferred to the ER via EMS with complaints of progressive dyspnea over the last couple days,accompanied by cough.endorses heavy alcohol use of 1 pint per day. On admission tachypneic, tachycardic, venous blood gases reported pH 7.45 [id number], bicarb 21, Tmax 99.8, WBC 17.52 lactic acid 5.1 decreased to 2.1 with IV fluid hydration. Chest x-ray reporting bilateral lower lung field consolidations consistent with multilobar pneumonia. Procalcitonin within normal limits, 0.40. ProBNP 3800, Hemoglobin 11.9, platelets 144, INR 1.1. Troponin 0.543, 0.623, EKG reporting sinus tachycardia, prior echo 2016 reporting normal LV function, EF 55 to 60% with no significant valvular abnormalities/repeat echo ordered ordered. T. bili 2.6, AST 165, AST 44, alk phos 218. Amylase 73, lipase 392. Serum alcohol 79. maintained on BiPAP 60%, Zosyn, nebulized bronchodilators, IV steroids, Pulmicort and CIWA protocol. Recent CIWA score 8. 12/07/2024 remains BiPAP dependent, FiO2 50%. Continues on Lasix-chest x-ray yesterday reported interstitial infiltrates with lower lung airspace disease improved.echo pending. Renal function stable.positive diet intake, able to be off BiPAP for less than 10 minutes to facilitate eating. Staff reports patient cooperative but impulsive, with significant anxiety. CIWA score during the night 24 currently ranging 6-9. In the last 24 hours has received 9 mg of Ativan per CIWA protocol. Viral studies negative, afebrile, WBC increased to 23.97. Objective - Vital Signs Vital signs: Vital Signs Temp 98.3 F 12/07/24 12:00 Pulse 72 12/07/24 13:00 Resp 14 12/07/24 13:00 BP 146/81 12/07/24 13:00 Pulse Ox 96 12/07/24 13:00 FiO2 50 12/07/24 13:00 Intake & Output 12/06/24 12/07/24 12/07/24 18:59 06:59 18:59 Intake Total 600 625 365 Output Total 481 050 2666 Balance 125 25 -1385 Weight 89.358 kg 97.5 kg Intake: IV 600 525 365 Lactated Ringers 1,000 ml 600 525 265 @ 10 mls/hr IV .Q24H [facility] Rx#:[id number] Piperacillin-Tazobactam 3 100 .375 gm In Sodium Chloride 0.9% 100 ml @ 25 mls/hr IVPB Q8HR [facility] Rx# :[id number] Intake, IV Titration 100 Amount Piperacillin-Tazobactam 3 100 .375 gm In Sodium Chloride 0.9% 100 ml @ 25 mls/hr IVPB Q8HR [facility] Rx# :[id number] Output: Urine 036 803 0838 Other: Voiding Method External Catheter External Catheter - Exam General: alert and oriented x 2, sitting up in bed. no acute distress. HEENT: [Normocephalic, atraumatic ,PERRL. EOMI. sclera nonicteric .no erythema or exudate.] Neck: Supple, no JVD Cardiac: [Heart regular in rate and rhythm. No S3. No S4. No clicks, rubs. No murmur.] Lungs: Unlabored, equal air entry, fine basilar crackles. Abdomen: Soft, nondistended,nontender,no guarding, positive bowel sounds. Extremes: [No edema no cyanosis no claudication normal pulses] Skin: No rash. warm and dry. Neurologic: CN II - XII grossly intact.] - Labs CBC & Chem 7: 12/08/24 06:02 12/08/24 06:02 Labs: Abnormal Lab Results - Last 24 Hours (Table) 12/07/24 12/07/24 12/07/24 Range/Units 01:04 03:11 03:11 WBC 23.97 H (4.50-10.00) 10*3/uL RBC 3.41 L (4.40-5.60) 10*6/uL Hgb 12.0 L (13.0-17.0) g/dL Hct 36.6 L (39.6-50.0) % MCV 107.3 H (80.0-97.0) fL MCH 35.2 H (27.0-32.0) pg Plt Count 128 L (140-440) 10*3/uL Immature Gran # 0.21 H (0.00-0.04) 10*3/uL Neutrophils # 21.94 H (1.80-7.70) 10*3/uL Lymphocytes # 0.77 L (0.90-5.00) 10*3/uL Eosinophils # 0.00 L (0.04-0.35) 10*3/uL Sodium 134 L (137-145) mmol/L BUN 31 H (9-20) mg/dL Glucose 154 H (74-99) mg/dL POC Glucose (mg/dL) 181 H (70-110) mg/dL Calcium 8.2 L (8.4-10.2) mg/dL 12/07/24 12/07/24 Range/Units 06:24 12:37 WBC (4.50-10.00) 10*3/uL RBC (4.40-5.60) 10*6/uL Hgb (13.0-17.0) g/dL Hct (39.6-50.0) % MCV (80.0-97.0) fL MCH (27.0-32.0) pg Plt Count (140-440) 10*3/uL Immature Gran # (0.00-0.04) 10*3/uL Neutrophils # (1.80-7.70) 10*3/uL Lymphocytes # (0.90-5.00) 10*3/uL Eosinophils # (0.04-0.35) 10*3/uL Sodium (137-145) mmol/L BUN (9-20) mg/dL Glucose (74-99) mg/dL POC Glucose (mg/dL) 153 H 244 H (70-110) mg/dL Calcium (8.4-10.2) mg/dL Microbiology - Last 24 Hours (Table) 12/06/24 01:06 Blood Culture - Preliminary Blood Assessment and Plan Assessment: Alcohol intoxication, serum level 79 Acute COPD exacerbation Possible acute CHF exacerbation, echo pending Acute hypoxic respiratory failure, BiPAP dependent, secondary to all the above ,multilobar pneumonia, possible aspiration Lactic acidosis, improving with IV fluid hydration Elevated troponins, NSTEMI suspect typeII related to mismatch supply and d juani,cardiology following Hyperammonemia Chronic abdominal pain Chronic pancreatitis History of esophageal varices with multiple bandings Elevated T. bili, LFTs in a patient with history of alcoholic cirrhosis of liver, chronic alcoholic hepatitis Portal hypertension History of ascites with multiple paracentesis Alcohol dependence History of polysubstance abuse including cocaine, heroin, marijuana Noncompliance Chronic alcoholic hepatitis Chronic nicotine dependence History of nephrolithiasis, chronic anemia No code Plan: Continue on current medication regime ,monitoring and symptomatic treatment. Echo pending. aggressive pulmonary toileting with nebulized bronchodilators, Pulmicort, IV steroids, Lasix and empiric antibiotics. CIWA protocol. Lactulose ordered 3 times daily. Alcohol abstinence and nicotine cessation reinforced. The impression and plan of care has been dictated as directed. : I performed a history and examination of this patient, discussed the same with the dictator. I agree with the dictator's note ,documented as a scribe. Any additional findings or plans will be noted.
--- NOTE | 2024-12-07 13:53 | CA ---
Transthoracic Echo Report Name: Kenisha Paige Age: 49 Gender: M : 1975 Exam Date: 12/06/2024 10:20 Exam Location: [facility] [place] [facility] Ht (in): 72 Wt (lb): 197 Ordering Physician: Daniel Garduno Attending/Referring Phys: Greenhouse Superintendent Akin Bean RDCS Procedure CPT: Indications: evaluate LV function Cardiac Hx: Technical Quality: Fair Contrast 1: Definity Total Dose (mL): 2 Contrast 2: Total Dose (mL): MEASUREMENTS (Male / Female) Normal Values 2D ECHO LV Diastolic Diameter PLAX 5.6 cm 4.2 - 5.9 / 3.9 - 5.3 cm LV Systolic Diameter PLAX 4.5 cm IVS Diastolic Thickness 1.0 cm 0.6 - 1.0 / 0.6 - 0.9 cm LVPW Diastolic Thickness 1.2 cm 0.6 - 1.0 / 0.6 - 0.9 cm LV Relative Wall Thickness 0.4 RV Internal Dim ED PLAX 2.7 cm LVOT Diameter 2.0 cm LA Systolic Diameter LX 3.9 cm 3.0 - 4.0 / 2.7 - 3.8 cm LV Diastolic Volume MOD BP 119.3 cm??? 67 - 155 / 56 - 104 cm??? LV Systolic Volume MOD BP 54.1 cm??? 22 - 58 / 19 - 49 cm??? LV Ejection Fraction MOD BP 54.6 % >= 55 % LV Diastolic Volume MOD 4C 105.3 cm??? LV Systolic Volume MOD 4C 43.2 cm??? LV Ejection Fraction MOD 4C 58.9 % LV Diastolic Length 4C 8.9 cm LV Systolic Length 4C 7.4 cm LV Diastolic Volume MOD 2C 123.5 cm??? LV Systolic Volume MOD 2C 63.8 cm??? LV Ejection Fraction MOD 2C 48.3 % LV Diastolic Length 2C 9.8 cm LV Systolic Length 2C 7.9 cm LA Volume 95.1 cm??? 18 - 58 / 22 - 52 cm??? LA Volume Index 44.4 cm???/m??? 16 - 28 cm???/m??? M-MODE Aortic Root Diameter MM 3.8 cm LA Systolic Diameter MM 3.9 cm LA Ao Ratio MM 1.0 MV E Point Septal Separation 1.2 cm AV Cusp Separation MM 2.2 cm DOPPLER AV Peak Velocity 168.1 cm/s AV Peak Gradient 11.3 mmHg AV Mean Velocity 119.6 cm/s AV Mean Gradient 6.3 mmHg AV Velocity Time Integral 33.7 cm LVOT Peak Velocity 102.5 cm/s LVOT Peak Gradient 4.2 mmHg LVOT Velocity Time Integral 19.0 cm LVOT Stroke Volume 59.1 cm??? LVOT Stroke Volume Index 27.9 ml/m??? AV Area Cont Eq vti 1.8 cm??? AV Area Cont Eq pk 1.9 cm??? MV Area PHT 3.2 cm??? Mitral E Point Velocity 100.4 cm/s Mitral A Point Velocity 114.0 cm/s Mitral E to A Ratio 0.9 MV Deceleration Time 240.7 ms TR Peak Velocity 264.2 cm/s TR Peak Gradient 27.9 mmHg FINDINGS Left Ventricle Left ventricular ejection fraction is estimated at 40-45 %. Mildly decreased left ventricular ejection fraction. Left ventricular cavity size normal. No obvious regional wall motion abnormalities. Right Ventricle Mild right ventricular dilatation. Right Atrium Mild right atrial dilatation. No right atrial thrombus or mass seen. Left Atrium Moderate LA dilatation Mitral Valve No mitral stenosis. Trace mitral regurgitation. Aortic Valve Trileaflet aortic valve. No aortic stenosis. No aortic regurgitation. Tricuspid Valve No tricuspid stenosis. Mild tricuspid regurgitation. Pulmonic Valve Structurally normal pulmonic valve. No pulmonic stenosis. No pulmonic regurgitation. Pericardium Normal pericardium. No pericardial or pleural effusion. Aorta Normal size aortic root and proximal ascending aorta. CONCLUSIONS LVEF 40 to 45% Paradoxical septal motion test. Mild RV dilatation, mild RA dilatation No significant valvular dysfunction RVSP estimated at 35 mmHg Previewed by: Dr Keanu Campbell (Electronically Signed) Final Date: 06 December 2024 12:08
[2024-12-07 16:40] LABS: Glucose,Whole Blood 129 mg/dL (70-110)
[2024-12-08 06:03] LABS: Glucose,Whole Blood 143 mg/dL (70-110)
[2024-12-08 06:26] LABS: Basophils # (A) 0.03 10*3/uL (0.00-0.10); Basophils % (A) 0.1 %; Eosinophils # (A) 0.01 10*3/uL (0.04-0.35); Eosinophils % (A) 0.0 %; HCT 34.8 % (39.6-50.0); HGB 11.3 g/dL (13.0-17.0); Lymphocytes # (A) 0.72 10*3/uL (0.90-5.00); Lymphocytes % (A) 3.0 %; MCH 34.3 pg (27.0-32.0); MCHC 32.5 g/dL (32.0-37.0); Monocytes # (A) 1.36 10*3/uL (0.20-1.00); Monocytes % (A) 5.7 %; Neutrophils # (A) 21.42 10*3/uL (1.80-7.70); Neutrophils % (A) 90.3 %; Platelet Count 100 10*3/uL (140-440); RBC 3.29 10*6/uL (4.40-5.60); RDW 16.9 % (11.5-14.5); WBC 23.75 10*3/uL (4.50-10.00)
[2024-12-08 06:39] LABS: African American GFR (CKD) >90 (>60 ml/min/1.73 sqM); Anion Gap 1 mmol/L; Blood Urea Nitrogen 26 mg/dL (9-20); Calcium 7.8 mg/dL (8.4-10.2); Carbon Dioxide 28 mmol/L (22-30); Chloride 106 mmol/L (98-107); Glucose 143 mg/dL (74-99); Non-African American GFR(CKD) >90 (>60 ml/min/1.73 sqM); Potassium 4.0 mmol/L (3.5-5.1); Sodium 135 mmol/L (137-145)
[2024-12-08 06:53] LABS: MCV 105.8 fL (80.0-97.0)
--- NOTE | 2024-12-08 07:22 | P.PN ---
Subjective HISTORY OF PRESENTING ILLNESS This is a pleasant 49-year-old with past medical history significant for alcoholism, liver cirrhosis, esophageal varices with bands, GI bleed, ascites with previous paracentesis as well as pancreatitis, previous heavy alcohol use, tobacco abuse, COPD. Patient does not follow with a cloth tester. Patient states he had RSV along with his mother approximately a month ago and then more recently has been having increased cough and fevers and chills over the last 3 to 4 days. He also has been having some chest tightness and pressure which has been off-and-on over the last few days. He states he has been drinking somewhat however not as heavy as he previously did, previously drinking half of a gallon daily. He is still smoking. He denies any marijuana or cocaine. Denies any family history of coronary artery disease. He was found to have maximum temperature 99.8. Chest x-ray shows bilateral infiltrates. He was placed on BiPAP and currently feels somewhat better in terms of her shortness of breath. Patient does have advanced directive per nursing with patient being DNR Blood work shows white blood cell count 17, hemoglobin 11.9, creatinine 0.6, lactic acid 5.1, troponin 0.54, 0.62. proBNP 3800, albumin 2.9, lipase 392. Shows normal sinus rhythm, normal axis, minimal 0.[address] depressions in the inferior leads. 12/07 Patient seen and examined. Patient still complaining of some atypical epiga stric and chest pain somewhat reproducible and somewhat with deep inspiration and cough. Echocardiogram pending. Still remains on BiPAP. 12/08 Patient seen and examined. Patient still short of breath on BiPAP. He is still having intermittent chest pain. He states it is currently an 8 out of 10. Per nursing usually Ativan and morphine will help with his chest pain. PHYSICAL EXAMINATION Vital signs reviewed. CONSTITUTIONAL: No apparent distress. HEENT: Head is normocephalic. Pupils are equal, round. Sclerae anicteric. Mucous membranes of the mouth are moist. No JVD. No carotid bruit. CHEST EXAMINATION: Lungs are clear to auscultation. No chest wall tenderness is noted on palpation or with deep breathing. HEART EXAMINATION: Regular rate and rhythm. S1, S2 heard. No murmurs, gallops or rub. ABDOMEN: Soft, nontender. Positive bowel sounds. EXTREMITIES: 2+ peripheral pulses, no lower extremity edema and no calf tenderness. NEUROLOGIC EXAMINATION: Patient is awake, alert and oriented x3. ASSESSMENT Acute on chronic respiratory failure appears mainly related to pneumonia Non-STEMI likely type II mechanism related to pneumonia with significant hypoxia and lactic acidosis Precordial chest pain, may be related to pneumonia however rule out cardiac source Hypertension Alcohol abuse Previous liver cirrhosis currently appears compensated History of chronic pancreatitis Medical noncompliance Tobacco abuse Mild cardiomyopathy ejection fraction 40 to 45% PLAN Majority of presentation appears consistent with pneumonia and respiratory failure related to pneumonia. Non-STEMI likely type II mechanism however he is having some chest discomfort. Chest discomfort appears more musculoskeletal, pleuritic and related to pneumonia however monitor closely for any type I non-STEMI. Patient having more chest pain this morning therefore we will check repeat troponins. Continue with beta-collin with atenolol Losartan was added. Echo showing ejection fraction 40 to 45% with paradoxical septal motion. May be more long-term cardiomyopathy from his alcohol use and we will attempt to track down prior echoes. Continue aspirin. Likely more conservative management with patient not being a good interventional candidate with history of varices and GI bleeding in the past. Objective - Vital Signs Vital signs: Vital Signs Temp 97.8 F 12/08/24 04:00 Pulse 70 12/08/24 07:00 Resp 27 H 12/08/24 07:00 BP 130/65 12/08/24 07:00 Pulse Ox 99 12/08/24 07:00 FiO2 50 12/08/24 04:34 Intake & Output 12/07/24 12/08/24 12/08/24 18:59 06:59 18:59 Intake Total 515 130 Output Total 2600 1875 Balance -2084 -1744 Weight 94.5 kg Intake: IV 515 130 Lactated Ringers 1,000 ml 315 130 @ 10 mls/hr IV .Q24H [facility] Rx#:[id number] Piperacillin-Tazobactam 3 200 .375 gm In Sodium Chloride 0.9% 100 ml @ 25 mls/hr IVPB Q8HR [facility] Rx# :[id number] Output: Urine 2600 1875 Other: Voiding Method Urinal Urinal - Labs CBC & Chem 7: 12/08/24 06:02 12/08/24 06:02 Labs: Abnormal Lab Results - Last 24 Hours (Table) 12/07/24 12/07/24 12/07/24 Range/Units 03:11 12:37 16:39 WBC (4.50-10.00) 10*3/uL RBC (4.40-5.60) 10*6/uL Hgb (13.0-17.0) g/dL Hct (39.6-50.0) % MCV (80.0-97.0) fL MCH (27.0-32.0) pg Plt Count (140-440) 10*3/uL Immature Gran # (0.00-0.04) 10*3/uL Neutrophils # 21.94 H (1.80-7.70) 10*3/uL Lymphocytes # 0.77 L (0.90-5.00) 10*3/uL Monocytes # (0.20-1.00) 10*3/uL Eosinophils # 0.00 L (0.04-0.35) 10*3/uL Sodium (137-145) mmol/L BUN (9-20) mg/dL Glucose (74-99) mg/dL POC Glucose (mg/dL) 244 H 129 H (70-110) mg/dL Calcium (8.4-10.2) mg/dL 12/08/24 12/08/24 12/08/24 Range/Units 06:01 06:02 06:02 WBC 23.75 H (4.50-10.00) 10*3/uL RBC 3.29 L (4.40-5.60) 10*6/uL Hgb 11.3 L (13.0-17.0) g/dL Hct 34.8 L (39.6-50.0) % MCV 105.8 H (80.0-97.0) fL MCH 34.3 H (27.0-32.0) pg Plt Count 100 L (140-440) 10*3/uL Immature Gran # 0.21 H (0.00-0.04) 10*3/uL Neutrophils # 21.42 H (1.80-7.70) 10*3/uL Lymphocytes # 0.72 L (0.90-5.00) 10*3/uL Monocytes # 1.36 H (0.20-1.00) 10*3/uL Eosinophils # 0.01 L (0.04-0.35) 10*3/uL Sodium 135 L (137-145) mmol/L BUN 26 H (9-20) mg/dL Glucose 143 H (74-99) mg/dL POC Glucose (mg/dL) 143 H (70-110) mg/dL Calcium 7.8 L (8.4-10.2) mg/dL Microbiology - Last 24 Hours (Table) 12/06/24 01:06 Blood Culture - Preliminary Blood
--- NOTE | 2024-12-08 08:50 | XR ---
EXAMINATION TYPE: XR chest 1V portable DATE OF EXAM: 12/08/2024 5:22 AM COMPARISON: 12/07/2024 CLINICAL INDICATION: Male, 49 years old with history of Pneumonia, , FINDINGS: Heart mild to moderately enlarged. Diffuse interstitial opacification persists. Mid to lower lung pat mike opacities have worsened. No sizable pleural effusion. IMPRESSION: Mild to moderate cardiomegaly with ongoing diffuse interstitial lung disease. Patchy airspace disease has developed in the mid and lower lungs now. [facility], , 12/08/2024 8:48 AM
[2024-12-08] MEDS ORDERED: FUROSEMIDE 10 MG/ML 4 ML VIAL IV SCH (09:45)
--- NOTE | 2024-12-08 12:22 | P.PN ---
Subjective Progress Note Date: 12/08/24 H&P Date: 12/06/24 Chief Complaint: Alcohol intoxication, respiratory failure This is a 49-year-old male with past medical history significant for polysubs tance abuse including alcohol, cocaine heroin marijuana, pancreatitis, chronic alcoholic hepatitis ,ascites with multiple paracentesis, esophageal varices with multiple banding's, chronic anemia, ventral hernia repair, bipolar, depression, anxiety, multiple other medical issues transferred to the ER via EMS with complaints of progressive dyspnea over the last couple days,accompanied by cough.endorses heavy alcohol use of 1 pint per day. On admission tachypneic, tachycardic, venous blood gases reported pH 7.45 [id number], bicarb 21, Tmax 99.8, WBC 17.52 lactic acid 5.1 decreased to 2.1 with IV fluid hydration. Chest x-ray reporting bilateral lower lung field consolidations consistent with multilobar pneumonia. Procalcitonin within normal limits, 0.40. ProBNP 3800, Hemoglobin 11.9, platelets 144, INR 1.1. Troponin 0.543, 0.623, EKG reporting sinus tachycardia, prior echo 2016 reporting normal LV function, EF 55 to 60% with no significant valvular abnormalities/repeat echo ordered ordered. T. bili 2.6, AST 165, AST 44, alk phos 218. Amylase 73, lipase 392. Serum alcohol 79. maintained on BiPAP 60%, Zosyn, nebulized bronchodilators, IV steroids, Pulmicort and CIWA protocol. Recent CIWA score 8. 12/07/2024 remains BiPAP dependent, FiO2 50%. Continues on Lasix-chest x-ray yesterday reported interstitial infiltrates with lower lung airspace disease improved.echo pending. Renal function stable.positive diet intake, able to be off BiPAP for less than 10 minutes to facilitate eating. Staff reports patient cooperative but impulsive, with significant anxiety. CIWA score during the night 24 currently ranging 6-9. In the last 24 hours has received 9 mg of Ativan per CIWA protocol. Viral studies negative, afebrile, WBC increased to 23.97. 12/08/2024 remains BiPAP dependent, FiO2 40%, recent CIWA score 8, maintained on CIWA protocol. Using Airvo to facilitate eating then returns back to BiPAP. chest x-ray pending. no bowel movements recorded, previous ammonia elevated, apparently patient has been declining lactulose. Objective - Vital Signs Vital signs: Vital Signs Temp 97.9 F 12/08/24 08:00 Pulse 72 12/08/24 11:43 Resp 17 12/08/24 10:00 BP 102/60 12/08/24 10:00 Pulse Ox 99 12/08/24 10:00 FiO2 40 12/08/24 11:43 Intake & Output 12/07/24 12/08/24 12/08/24 18:59 06:59 18:59 Intake Total 515 130 30 Output Total 2600 1875 125 Balance -2084 Weight 94.5 kg Intake: IV 515 130 30 Lactated Ringers 1,000 ml 315 130 30 @ 10 mls/hr IV .Q24H [facility] Rx#:[id number] Piperacillin-Tazobactam 3 200 .375 gm In Sodium Chloride 0.9% 100 ml @ 25 mls/hr IVPB Q8HR [facility] Rx# :[id number] Output: Urine 2600 1875 125 Other: Voiding Method Urinal Urinal - Exam General: alert and oriented x 2, sitting up in bed. no acute distress. HEENT: [Normocephalic, atraumatic ,PERRL. EOMI. sclera nonicteric . Neck: Supple, no JVD Cardiac: [Heart regular in rate and rhythm. No S3. No S4. No clicks, rubs. No murmur.] Lungs: Unlabored, equal air entry, fine basilar crackles. Abdomen: Soft, nondistended,nontender,no guarding, positive bowel sounds. Extremes: [No edema no cyanosis no claudication normal pulses] Skin: No rash. warm and dry. Neurologic: CN II - XII grossly intact.] - Labs CBC & Chem 7: 12/08/24 06:02 12/08/24 06:02 Labs: Abnormal Lab Results - Last 24 Hours (Table) 12/07/24 12/07/24 12/08/24 Range/Units 12:37 16:39 06:01 WBC (4.50-10.00) 10*3/uL RBC (4.40-5.60) 10*6/uL Hgb (13.0-17.0) g/dL Hct (39.6-50.0) % MCV (80.0-97.0) fL MCH (27.0-32.0) pg Plt Count (140-440) 10*3/uL Immature Gran # (0.00-0.04) 10*3/uL Neutrophils # (1.80-7.70) 10*3/uL Lymphocytes # (0.90-5.00) 10*3/uL Monocytes # (0.20-1.00) 10*3/uL Eosinophils # (0.04-0.35) 10*3/uL Sodium (137-145) mmol/L BUN (9-20) mg/dL Glucose (74-99) mg/dL POC Glucose (mg/dL) 244 H 129 H 143 H (70-110) mg/dL Calcium (8.4-10.2) mg/dL Troponin I (0.000-0.034) ng/mL 12/08/24 12/08/24 12/08/24 Range/Units 06:02 06:02 07:38 WBC 23.75 H (4.50-10.00) 10*3/uL RBC 3.29 L (4.40-5.60) 10*6/uL Hgb 11.3 L (13.0-17.0) g/dL Hct 34.8 L (39.6-50.0) % MCV 105.8 H (80.0-97.0) fL MCH 34.3 H (27.0-32.0) pg Plt Count 100 L (140-440) 10*3/uL Immature Gran # 0.21 H (0.00-0.04) 10*3/uL Neutrophils # 21.42 H (1.80-7.70) 10*3/uL Lymphocytes # 0.72 L (0.90-5.00) 10*3/uL Monocytes # 1.36 H (0.20-1.00) 10*3/uL Eosinophils # 0.01 L (0.04-0.35) 10*3/uL Sodium 135 L (137-145) mmol/L BUN 26 H (9-20) mg/dL Glucose 143 H (74-99) mg/dL POC Glucose (mg/dL) (70-110) mg/dL Calcium 7.8 L (8.4-10.2) mg/dL Troponin I 0.235 H* (0.000-0.034) ng/mL 12/08/24 Range/Units 10:14 WBC (4.50-10.00) 10*3/uL RBC (4.40-5.60) 10*6/uL Hgb (13.0-17.0) g/dL Hct (39.6-50.0) % MCV (80.0-97.0) fL MCH (27.0-32.0) pg Plt Count (140-440) 10*3/uL Immature Gran # (0.00-0.04) 10*3/uL Neutrophils # (1.80-7.70) 10*3/uL Lymphocytes # (0.90-5.00) 10*3/uL Monocytes # (0.20-1.00) 10*3/uL Eosinophils # (0.04-0.35) 10*3/uL Sodium (137-145) mmol/L BUN (9-20) mg/dL Glucose (74-99) mg/dL POC Glucose (mg/dL) (70-110) mg/dL Calcium (8.4-10.2) mg/dL Troponin I 0.220 H* (0.000-0.034) ng/mL Microbiology - Last 24 Hours (Table) 12/06/24 01:06 Blood Culture - Preliminary Blood Assessment and Plan Assessment: Alcohol intoxication, serum level 79 Acute COPD exacerbation Acute hypoxic respiratory failure, BiPAP dependent, secondary to all the above ,multilobar pneumonia, possible aspiration along with possible underlying CHF. Lactic acidosis, improving with IV fluid hydration Elevated troponins, NSTEMI suspect typeII related to mismatch supply and demand,cardiology following Hyperammonemia Chronic abdominal pain Chronic pancreatitis History of esophageal varices with multiple bandings Elevated T. bili, LFTs in a patient with history of alcoholic cirrhosis of liver, chronic alcoholic hepatitis Portal hypertension History of ascites with multiple paracentesis Alcohol dependence History of polysubstance abuse including cocaine, heroin, marijuana Noncompliance Chronic alcoholic hepatitis Chronic nicotine dependence History of nephrolithiasis, chronic anemia No code Plan: Continue on current medication regime ,monitoring and symptomatic treatment. Maintain CIWA protocol, aggressive pulmonary toileting with nebulized bronchodilators, Pulmicort, IV steroids and antibiotics. Repeat ammonia level ordered, rationale of scheduled lactulose rediscussed.Alcohol abstinence and nicotine cessation reinforced. The impression and plan of care has been dictated as directed. : I performed a history and examination of this patient, discussed the same with the dictator. I agree with the dictator's note ,documented as a scribe. Any additional findings or plans will be noted.
[2024-12-08] MEDS: FUROSEMIDE 10 MG/ML 4 ML VIAL IV STA (12:41)
--- NOTE | 2024-12-08 13:40 | P.PN ---
Subjective Progress Note Date: 12/08/24 Principal diagnosis: Acute hypoxic respiratory failure, multifactorial Patient is a 49-year-old male with past medical history consistent of alcoholism, liver cirrhosis, esophageal varices with bands, GI bleed, recurrent abdominal ascites with previous paracentesis, chronic pancreatitis, polysubstance abuse, current tobacco dependence, COPD. His primary care provider is Dr. Meza. Patient brought in by EMS late last night and state respiratory distress. Patient was placed on BiPAP on arrival. Chest x-ray showing enlarged cardiac silhouette, diffuse bilateral lower lung field consolidations consistent with multilobar pneumonia. Tachypneic, tachycardic, acute leukocytosis, with low-grade fever. Patient received empiric dose azithromycin and Rocephin in the ED. CBC with a WBC count of 17.52, hemoglobin 11.9, platelets 144. CMP: Sodium 137, potassium 5.3, chloride 106, serum bicarb 21, BUN 19, creatinine 0.67, glucose 124. Lactic was elevated at 5.1 and is tr ending down to 3.9. LFTs mildly elevated. Lipase 392, amylase 73. Troponin elevated at 0.543 possibly secondary to supply/demand mismatch. EKG: Sinus tachycardia, rate 110 bpm, no acute ST segment elevations or T wave inversions. NT proBNP was 3800. Most recent echocardiogram dating back to 2017, estimating a LV function of 55 to 60%. No significant valvular abnormalities were reported. I did receive from Dr. De La Fuente who was concerned that this patient may decompensate, and would be better monitored in the intensive care unit. Evaluating the patient in the emergency department he is on BiPAP with settings 12/6 and FiO2 of 70%. He is tachypneic breathing the mid 30s. Despite this, r elatively calm and able to answer questioning. No signs of CO2 narcosis. He states that he went on a roland approximately 3 to 4 days ago. Previously, he drank half a gallon of liquor per day and now he is down to 1 pint per day. Serum alcohol level was 79 on arrival. He is unsure of exactly when, but developed increasingly worsening shortness of breath with associated cough and subjective fevers. Denies sick contacts. Denies recent travel. States he lives at home with his parents. Denies chest pain or lower extremity swelling. Most recent vital signs temperature 99.8 F, heart rate 103 bpm, blood pressure 133/83 mmHg, tachypneic, SpO2 reading 96% on bedside monitor. Patient was seen today on 12/07/2024, patient remains in the ICU, his overall clinical picture is slightly better today compared to yesterday, however his chest x-ray showed significant improvement in his interstitial infiltrate/edema. Patient did receive Lasix yesterday, and he will continue to receive Lasix to day. His procalcitonin level was a bit elevated at 0.40, BNP was elevated on admission, echocardiogram is pending. Again considering the improvement on his chest x-ray overnight, this speaks in favor of more pulmonary edema than true pneumonia. Although I suspect that we are dealing with both/pulmonary edema and pneumonia considering his presentation and his clinical history. Patient remains on BiPAP 50%, he will be transitioned to a nasal cannula. Again echocardiogram is pending. Patient remains on Zosyn empirically. His IV fluids will be cut down to KVO, patient will receive another dose of Lasix today, and will plan to continue the CIWA protocol. WBC count is 23.97 hemoglobin is 12 electrolytes are normal renal profile is normal Seen today on 12/08/2024, remains in the ICU, remains on BiPAP, patient is developing worsening interstitial edema again today, his last dose of Lasix was yesterday, and a chest x-ray yesterday was dramatically more improved compared to the day before and compared to today. Hence I am recommending more diuretics for this patient, will recommend 40 mg IV push twice daily. Ejection fraction on his echocardiogram was 40 to 45%. Patient is on BiPAP 1250%. Does not seem to be in any distress, he is quite comfortable, however he does have leukocytosis and he remains on antibiotics with WBC count of 23.7 hemoglobin is 11.3 electrolytes are normal renal profile is normal bicarb is normal. Troponin is elevated ammonia level is quite high at 100. Patient is on lactulose 30 g 3 times daily. Objective - Vital Signs Vital signs: Vital Signs Temp 97.9 F 12/08/24 08:00 Pulse 72 12/08/24 11:43 Resp 17 12/08/24 10:00 BP 102/60 12/08/24 10:00 Pulse Ox 99 12/08/24 10:00 FiO2 60 12/08/24 11:45 Intake & Output 12/07/24 12/08/24 12/08/24 18:59 06:59 18:59 Intake Total 515 130 30 Output Total 2600 1875 125 Balance -2084 Weight 94.5 kg Intake: IV 515 130 30 Lactated Ringers 1,000 ml 315 130 30 @ 10 mls/hr IV .Q24H [facility] Rx#:[id number] Piperacillin-Tazobactam 3 200 .375 gm In Sodium Chloride 0.9% 100 ml @ 25 mls/hr IVPB Q8HR [facility] Rx# :[id number] Output: Urine 2600 1875 125 Other: Voiding Method Urinal Urinal - Exam GENERAL EXAM: Revealed 49-year-old white male arousable, not in distress, ho wever he remains on BiPAP. HEAD: Normocephalic and atraumatic EYES: Normal reaction of pupils, equal size. NOSE: Clear with pink turbinates. THROAT: No erythema or exudates. NECK: No masses, no JVD. CHEST: No chest wall deformity. LUNGS: Fine crackles at the bases persist, no rhonchi no wheezes. CVS: S1 and S2 normal with no audible murmur, regular rhythm. No extra heart sounds ABDOMEN: No hepatosplenomegaly, active bowel sounds, no guarding or rigidity. SKIN: No rashes CENTRAL NERVOUS SYSTEM: Lethargic, but arousable, follows simple instructions EXTREMITIES: No clubbing, edema or cyanosis. - Labs CBC & Chem 7: 12/08/24 06:02 12/08/24 06:02 Labs: Abnormal Lab Results - Last 24 Hours (Table) 12/07/24 12/08/24 12/08/24 Range/Units 16:39 06:01 06:02 WBC 23.75 H (4.50-10.00) 10*3/uL RBC 3.29 L (4.40-5.60) 10*6/uL Hgb 11.3 L (13.0-17.0) g/dL Hct 34.8 L (39.6-50.0) % MCV 105.8 H (80.0-97.0) fL MCH 34.3 H (27.0-32.0) pg Plt Count 100 L (140-440) 10*3/uL Immature Gran # 0.21 H (0.00-0.04) 10*3/uL Neutrophils # 21.42 H (1.80-7.70) 10*3/uL Lymphocytes # 0.72 L (0.90-5.00) 10*3/uL Monocytes # 1.36 H (0.20-1.00) 10*3/uL Eosinophils # 0.01 L (0.04-0.35) 10*3/uL Sodium (137-145) mmol/L BUN (9-20) mg/dL Glucose (74-99) mg/dL POC Glucose (mg/dL) 129 H 143 H (70-110) mg/dL Calcium (8.4-10.2) mg/dL Ammonia (<30) umol/L Troponin I (0.000-0.034) ng/mL 12/08/24 12/08/24 12/08/24 Range/Units 06:02 07:38 10:14 WBC (4.50-10.00) 10*3/uL RBC (4.40-5.60) 10*6/uL Hgb (13.0-17.0) g/dL Hct (39.6-50.0) % MCV (80.0-97.0) fL MCH (27.0-32.0) pg Plt Count (140-440) 10*3/uL Immature Gran # (0.00-0.04) 10*3/uL Neutrophils # (1.80-7.70) 10*3/uL Lymphocytes # (0.90-5.00) 10*3/uL Monocytes # (0.20-1.00) 10*3/uL Eosinophils # (0.04-0.35) 10*3/uL Sodium 135 L (137-145) mmol/L BUN 26 H (9-20) mg/dL Glucose 143 H (74-99) mg/dL POC Glucose (mg/dL) (70-110) mg/dL Calcium 7.8 L (8.4-10.2) mg/dL Ammonia (<30) umol/L Troponin I 0.235 H* 0.220 H* (0.000-0.034) ng/mL 12/08/24 Range/Units 12:27 WBC (4.50-10.00) 10*3/uL RBC (4.40-5.60) 10*6/uL Hgb (13.0-17.0) g/dL Hct (39.6-50.0) % MCV (80.0-97.0) fL MCH (27.0-32.0) pg Plt Count (140-440) 10*3/uL Immature Gran # (0.00-0.04) 10*3/uL Neutrophils # (1.80-7.70) 10*3/uL Lymphocytes # (0.90-5.00) 10*3/uL Monocytes # (0.20-1.00) 10*3/uL Eosinophils # (0.04-0.35) 10*3/uL Sodium (137-145) mmol/L BUN (9-20) mg/dL Glucose (74-99) mg/dL POC Glucose (mg/dL) (70-110) mg/dL Calcium (8.4-10.2) mg/dL Ammonia 100 H (<30) umol/L Troponin I (0.000-0.034) ng/mL Microbiology - Last 24 Hours (Table) 12/06/24 01:06 Blood Culture - Preliminary Blood Assessment and Plan Assessment: Impression: Acute hypoxemic respiratory failure, on BiPAP, secondary to above, chest x-ray showing cardiomegaly, diffuse bilateral lower lung field consolidations consistent congestive heart failure and suspect aspiration pneumonia. Chest x- ray is worsening again although was much better yesterday, hence I will maintain the patient on diuretics and will keep him at the same time on antibiotics. Acute COPD exacerbation Alcohol intoxication, serum alcohol level 79 Elevated ammonia level, on lactulose. Acute leukocytosis Lactic acidemia, improving Chronic pancreatitis Abdominal pain Elevated troponin, suspect supply/demand mismatch History of liver cirrhosis with esophageal varices and banding History of GI bleed History of recurrent abdominal ascites with previous paracentesis History of polysubstance abuse Chronic tobacco dependence Mild LV dysfunction most likely related to alcohol. Recommendation: Could consider transferring the patient to a monitored bed and selective In the meantime continue present supportive care measures including lactulose, BiPAP, diuretics, antibiotics, CIWA protocol. Continue O2 and titrate accordingly Continue Zosyn empirically Continue diuretics, awaiting results of echocardiogram continue CIWA protocol Continue GI and DVT prophylaxis Cultures are pending Echocardiogram showed mild LV dysfunction Patient remains relatively ill, will continue to follow Time with Patient: Greater than 30
[2024-12-08] MEDS: NYSTATIN 100,000 UNIT/ML SUSP 500,000 UNIT/5 ML CUP PO SCH (15:06)
[2024-12-08 16:58] LABS: Glucose,Whole Blood 170 mg/dL (70-110)
[2024-12-08] MEDS: LACTULOSE 20 GM/30 ML CUP PO SCH (19:24)
[2024-12-08 19:59] LABS: Glucose,Whole Blood 204 mg/dL (70-110)
[2024-12-08] MEDS: INSULIN LISPRO (HumaLOG) 100 UNIT/ML 10 mL VL SQ SCH (21:08)
[2024-12-08] MEDS: FUROSEMIDE 10 MG/ML 4 ML VIAL IV SCH (21:09)
[2024-12-09 04:15] LABS: Basophils # (A) 0.02 10*3/uL (0.00-0.10); Basophils % (A) 0.1 %; Eosinophils # (A) 0.02 10*3/uL (0.04-0.35); Eosinophils % (A) 0.1 %; HCT 33.7 % (39.6-50.0); HGB 11.0 g/dL (13.0-17.0); Lymphocytes # (A) 0.44 10*3/uL (0.90-5.00); Lymphocytes % (A) 2.2 %; MCH 34.7 pg (27.0-32.0); MCHC 32.6 g/dL (32.0-37.0); MCV 106.3 fL (80.0-97.0); Monocytes # (A) 1.11 10*3/uL (0.20-1.00); Monocytes % (A) 5.6 %; Neutrophils # (A) 17.90 10*3/uL (1.80-7.70); Neutrophils % (A) 91.2 %; RBC 3.17 10*6/uL (4.40-5.60); RDW 17.0 % (11.5-14.5); WBC 19.65 10*3/uL (4.50-10.00)
[2024-12-09 04:38] LABS: African American GFR (CKD) >90 (>60 ml/min/1.73 sqM); Anion Gap 4 mmol/L; Blood Urea Nitrogen 23 mg/dL (9-20); Calcium 8.1 mg/dL (8.4-10.2); Carbon Dioxide 28 mmol/L (22-30); Chloride 103 mmol/L (98-107); Glucose 165 mg/dL (74-99); Non-African American GFR(CKD) >90 (>60 ml/min/1.73 sqM); Potassium 3.6 mmol/L (3.5-5.1); Sodium 135 mmol/L (137-145)
[2024-12-09 05:41] LABS: Platelet Count 87 10*3/uL (140-440)
[2024-12-09 06:10] LABS: Glucose,Whole Blood 163 mg/dL (70-110)
--- NOTE | 2024-12-09 08:02 | XR ---
EXAMINATION TYPE: XR chest 1V portable DATE OF EXAM: 12/09/2024 5:56 AM COMPARISON: 12/08/2024 CLINICAL INDICATION: Male, 49 years old with history of Pneumonia, Chest pain TECHNIQUE: Single frontal view of the chest is obtained. FINDINGS: Diffuse reticulonodular infiltrates persist although may be slightly improved. Correlate for atypical pneumonia. The cardiac silhouette size is within normal limits. The osseous structures are intact. IMPRESSION: 1. Diffuse reticulonodular infiltrates persist although may be slightly improved. Correlate for atyp ical pneumonia. [facility], , 12/09/2024 7:59 AM
--- NOTE | 2024-12-09 11:09 | P.PN ---
Subjective Progress Note Date: 12/09/24 Principal diagnosis: Acute hypoxic respiratory failure, multifactorial Patient is a 49-year-old male with past medical history consistent of alcoholism, liver cirrhosis, esophageal varices with bands, GI bleed, recurrent abdominal ascites with previous paracentesis, chronic pancreatitis, polysubstance abuse, current tobacco dependence, COPD. His primary care provider is Dr. Meza. Patient brought in by EMS late last night and state respiratory distress. Patient was placed on BiPAP on arrival. Chest x-ray showing enlarged cardiac silhouette, diffuse bilateral lower lung field consolidations consistent with multilobar pneumonia. Tachypneic, tachycardic, acute leukocytosis, with low-grade fever. Patient received empiric dose azithromycin and Rocephin in the ED. CBC with a WBC count of 17.52, hemoglobin 11.9, platelets 144. CMP: Sodium 137, potassium 5.3, chloride 106, serum bicarb 21, BUN 19, creatinine 0.67, glucose 124. Lactic was elevated at 5.1 and is tr ending down to 3.9. LFTs mildly elevated. Lipase 392, amylase 73. Troponin elevated at 0.543 possibly secondary to supply/demand mismatch. EKG: Sinus tachycardia, rate 110 bpm, no acute ST segment elevations or T wave inversions. NT proBNP was 3800. Most recent echocardiogram dating back to 2017, estimating a LV function of 55 to 60%. No significant valvular abnormalities were reported. I did receive from Dr. De La Fuente who was concerned that this patient may decompensate, and would be better monitored in the intensive care unit. Evaluating the patient in the emergency department he is on BiPAP with settings 12/6 and FiO2 of 70%. He is tachypneic breathing the mid 30s. Despite this, r elatively calm and able to answer questioning. No signs of CO2 narcosis. He states that he went on a roland approximately 3 to 4 days ago. Previously, he drank half a gallon of liquor per day and now he is down to 1 pint per day. Serum alcohol level was 79 on arrival. He is unsure of exactly when, but developed increasingly worsening shortness of breath with associated cough and subjective fevers. Denies sick contacts. Denies recent travel. States he lives at home with his parents. Denies chest pain or lower extremity swelling. Most recent vital signs temperature 99.8 F, heart rate 103 bpm, blood pressure 133/83 mmHg, tachypneic, SpO2 reading 96% on bedside monitor. Patient was seen today on 12/07/2024, patient remains in the ICU, his overall clinical picture is slightly better today compared to yesterday, however his chest x-ray showed significant improvement in his interstitial infiltrate/edema. Patient did receive Lasix yesterday, and he will continue to receive Lasix to day. His procalcitonin level was a bit elevated at 0.40, BNP was elevated on admission, echocardiogram is pending. Again considering the improvement on his chest x-ray overnight, this speaks in favor of more pulmonary edema than true pneumonia. Although I suspect that we are dealing with both/pulmonary edema and pneumonia considering his presentation and his clinical history. Patient remains on BiPAP 12//50%, he will be transitioned to a nasal cannula. Again echocardiogram is pending. Patient remains on Zosyn empirically. His IV fluids will be cut down to KVO, patient will receive another dose of Lasix today, and will plan to continue the CIWA protocol. WBC count is 23.97 hemoglobin is 12 electrolytes are normal renal profile is normal Seen today on 12/08/2024, remains in the ICU, remains on BiPAP, patient is developing worsening interstitial edema again today, his last dose of Lasix was yesterday, and a chest x-ray yesterday was dramatically more improved compared to the day before and compared to today. Hence I am recommending more diuretics for this patient, will recommend 40 mg IV push twice daily. Ejection fraction on his echocardiogram was 40 to 45%. Patient is on BiPAP 12/6/50%. Does not seem to be in any distress, he is quite comfortable, however he does have leukocytosis and he remains on antibiotics with WBC count of 23.7 hemoglobin is 11.3 electrolytes are normal renal profile is normal bicarb is normal. Troponin is elevated ammonia level is quite high at 100. Patient is on lactulose 30 g 3 times daily. Seen today on 12/09/2024, remains in the ICU as an overflow, presently on Airvo at 60 L flow and 60% FiO2. Intermittently on BiPAP 12/6/40%. Remains on Zosyn remains on diuretics remains on lactulose, patient is frequently refusing treatment including diuretics and lactulose. In the meantime patient is marginal at best. Chest x-ray showed slight improvement in his interstitial edema/infiltrates. WBC count is 19.6 hemoglobin is 11 electrolytes are normal renal profile is normal last ammonia level was also 100 yesterday, patient is refusing lactulose. Objective - Vital Signs Vital signs: Vital Signs Temp 98.3 F 12/09/24 08:00 Pulse 68 12/09/24 08:31 Resp 20 12/09/24 08:00 BP 129/60 12/09/24 08:00 Pulse Ox 99 12/09/24 08:06 FiO2 63 12/09/24 08:06 Intake & Output 12/08/24 12/09/24 12/09/24 18:59 06:59 18:59 Intake Total 1220 Output Total 1600 1600 Balance -380 -1600 Weight 94.1 kg Intake: IV 240 Lactated Ringers 1,000 ml 40 @ 10 mls/hr IV .Q24H RAD[facility] Rx#:[id number] Piperacillin-Tazobactam 3 200 .375 gm In Sodium Chloride 0.9% 100 ml @ 25 mls/hr IVPB Q8HR RADHA Rx# :[id number] Oral 980 Output: Urine 1600 1600 Other: Voiding Method Urinal Urinal # Voids 2 - Exam GENERAL EXAM: Revealed 49-year-old white male on Airvo in no distress HEAD: Normocephalic and atraumatic EYES: Normal reaction of pupils, equal size. NOSE: Clear with pink turbinates. THROAT: No erythema or exudates. NECK: No masses, no JVD. CHEST: No chest wall deformity. LUNGS: Crackles at the bases persist. CVS: S1 and S2 normal with no audible murmur, regular rhythm. No extra heart sounds ABDOMEN: No hepatosplenomegaly, active bowel sounds, no guarding or rigidity. SKIN: No rashes CENTRAL NERVOUS SYSTEM: Alert oriented x 3 no gross focal neurologic deficit EXTREMITIES: No clubbing, edema or cyanosis. - Labs CBC & Chem 7: 12/09/24 03:35 12/09/24 03:35 Labs: Abnormal Lab Results - Last 24 Hours (Table) 12/08/24 12/08/24 12/08/24 Range/Units 10:14 12:27 16:57 WBC (4.50-10.00) 10*3/uL RBC (4.40-5.60) 10*6/uL Hgb (13.0-17.0) g/dL Hct (39.6-50.0) % MCV (80.0-97.0) fL MCH (27.0-32.0) pg Plt Count (140-440) 10*3/uL Immature Gran # (0.00-0.04) 10*3/uL Neutrophils # (1.80-7.70) 10*3/uL Lymphocytes # (0.90-5.00) 10*3/uL Monocytes # (0.20-1.00) 10*3/uL Eosinophils # (0.04-0.35) 10*3/uL Sodium (137-145) mmol/L BUN (9-20) mg/dL Glucose (74-99) mg/dL POC Glucose (mg/dL) 170 H (70-110) mg/dL Calcium (8.4-10.2) mg/dL Ammonia 100 H (<30) umol/L Troponin I 0.220 H* (0.000-0.034) ng/mL 12/08/24 12/09/24 12/09/24 Range/Units 19:58 03:35 03:35 WBC 19.65 H (4.50-10.00) 10*3/uL RBC 3.17 L (4.40-5.60) 10*6/uL Hgb 11.0 L (13.0-17.0) g/dL Hct 33.7 L (39.6-50.0) % MCV 106.3 H (80.0-97.0) fL MCH 34.7 H (27.0-32.0) pg Plt Count 87 L (140-440) 10*3/uL Immature Gran # 0.16 H (0.00-0.04) 10*3/uL Neutrophils # 17.90 H (1.80-7.70) 10*3/uL Lymphocytes # 0.44 L (0.90-5.00) 10*3/uL Monocytes # 1.11 H (0.20-1.00) 10*3/uL Eosinophils # 0.02 L (0.04-0.35) 10*3/uL Sodium 135 L (137-145) mmol/L BUN 23 H (9-20) mg/dL Glucose 165 H (74-99) mg/dL POC Glucose (mg/dL) 204 H (70-110) mg/dL Calcium 8.1 L (8.4-10.2) mg/dL Ammonia (<30) umol/L Troponin I (0.000-0.034) ng/mL 12/09/24 Range/Units 06:09 WBC (4.50-10.00) 10*3/uL RBC (4.40-5.60) 10*6/uL Hgb (13.0-17.0) g/dL Hct (39.6-50.0) % MCV (80.0-97.0) fL MCH (27.0-32.0) pg Plt Count (140-440) 10*3/uL Immature Gran # (0.00-0.04) 10*3/uL Neutrophils # (1.80-7.70) 10*3/uL Lymphocytes # (0.90-5.00) 10*3/uL Monocytes # (0.20-1.00) 10*3/uL Eosinophils # (0.04-0.35) 10*3/uL Sodium (137-145) mmol/L BUN (9-20) mg/dL Glucose (74-99) mg/dL POC Glucose (mg/dL) 163 H (70-110) mg/dL Calcium (8.4-10.2) mg/dL Ammonia (<30) umol/L Troponin I (0.000-0.034) ng/mL Microbiology - Last 24 Hours (Table) 12/06/24 01:06 Blood Culture - Preliminary Blood Assessment and Plan Assessment: Impression: Acute hypoxemic respiratory failure, on BiPAP, secondary to above, chest x-ray showing cardiomegaly, diffuse bilateral lower lung field consolidations consistent congestive heart failure and suspect aspiration pneumonia. Chest x- ray is worsening again although was much better yesterday, hence I will maintain the patient on diuretics and will keep him at the same time on antibiotics. Acute COPD exacerbation Alcohol intoxication, serum alcohol level 79 Elevated ammonia level, on lactulose. Acute leukocytosis Lactic acidemia, improving Chronic pancreatitis Abdominal pain Elevated troponin, suspect supply/demand mismatch History of liver cirrhosis with esophageal varices and banding History of GI bleed History of recurrent abdominal ascites with previous paracentesis History of polysubstance abuse Chronic tobacco dependence Mild LV dysfunction most likely related to alcohol. Recommendation: Continue present supportive care measures Transferred to medical floor Titrate O2 accordingly Continue antibiotics and diuretics Patient is refusing lactulose is also refusing diuretics Continue CIWA protoco lContinue GI and DVT prophylaxis Patient remains relatively ill, will continue to follow Time with Patient: Less than 30
[2024-12-09 11:18] LABS: Glucose,Whole Blood 162 mg/dL (70-110)
--- NOTE | 2024-12-09 12:01 | P.PN ---
Subjective December 09, 2024: Patient is reevaluated. He remains in intensive care unit as overflow. He remains on Airvo 60 L/min with an FiO2 of 63%. He is undergoing a breathing treatment while I am seeing him today. He indicates he is feeling much better. He complains of some minor tremors that have improved since arrival. He also complains of some mild chest pain. No nausea or vomiting no diarrhea or constipation. He was originally admitted for bilateral pneumonia, suspected for aspiration. He has significant history of alcoholism along with alcoholic hepatitis and chronic pancreatitis. He has known esophageal varices as well. Signs this morning are stable blood pressure controlled. Labs show WBC count of 19.65 hemoglobin is 11 MCV 106.3 platelets are 87. Chemistries are essentially normal with exception of glucose which has been slightly elevated. Blood cultures are negative. Sickle care notes reviewed remains on Zosyn and diuretic s with lactulose as well. Objective - Vital Signs Vital signs: Vital Signs Temp 98.3 F 12/09/24 08:00 Pulse 74 12/09/24 11:45 Resp 22 12/09/24 11:00 BP 121/63 12/09/24 11:00 Pulse Ox 98 12/09/24 11:35 FiO2 63 12/09/24 11:35 Intake & Output 12/08/24 12/09/24 12/09/24 18:59 06:59 18:59 Intake Total 1220 580 Output Total 1600 1600 250 Balance -380 -1600 330 Weight 94.1 kg Intake: IV 240 100 Lactated Ringers 1,000 ml 40 @ 10 mls/hr IV .Q24H RAD[facility] Rx#:[id number] Piperacillin-Tazobactam 3 200 100 .375 gm In Sodium Chloride 0.9% 100 ml @ 25 mls/hr IVPB Q8HR [facility] Rx# :[id number] Oral 980 480 Output: Urine 1600 1600 250 Other: Voiding Method Urinal Urinal # Voids 2 - Exam General: The patient is awake and alert, in no distress, Airvo is in place along with nonrebreather for updraft treatment currently. Neck: The neck is supple, there is no thyromegaly, lymphadenopathy, tenderness or JVD. Cardiovascular: S1S2 is normal, There is a regular rate and rhythm. No murmur, rub or gallop is appreciated. Respiratory: Lungs are somewhat coarse to auscultation bilaterally, respirations are non-labored, breath sounds are equal. Gastrointestinal: Soft, non-distended, non-tender abdomen there is some noted mild hepatomegaly palpated. Musculoskeletal: Normal ROM, no tenderness, There is no pedal edema. There is no calf tenderness or swelling. No cords were appreciated. Neurological: CN II-XII intact, there are no obvious motor or sensory deficits. Coordination appears grossly intact. Speech is normal. Slightly tremulous Skin: Skin is warm and dry and no rashes or lesions are noted. - Labs CBC & Chem 7: 12/09/24 03:35 12/09/24 03:35 Labs: Abnormal Lab Results - Last 24 Hours (Table) 12/08/24 12/08/24 12/08/24 Range/Units 12:27 16:57 19:58 WBC (4.50-10.00) 10*3/uL RBC (4.40-5.60) 10*6/uL Hgb (13.0-17.0) g/dL Hct (39.6-50.0) % MCV (80.0-97.0) fL MCH (27.0-32.0) pg Plt Count (140-440) 10*3/uL Immature Gran # (0.00-0.04) 10*3/uL Neutrophils # (1.80-7.70) 10*3/uL Lymphocytes # (0.90-5.00) 10*3/uL Monocytes # (0.20-1.00) 10*3/uL Eosinophils # (0.04-0.35) 10*3/uL Sodium (137-145) mmol/L BUN (9-20) mg/dL Glucose (74-99) mg/dL POC Glucose (mg/dL) 170 H 204 H (70-110) mg/dL Calcium (8.4-10.2) mg/dL Ammonia 100 H (<30) umol/L 12/09/24 12/09/24 12/09/24 Range/Units 03:35 03:35 06:09 WBC 19.65 H (4.50-10.00) 10*3/uL RBC 3.17 L (4.40-5.60) 10*6/uL Hgb 11.0 L (13.0-17.0) g/dL Hct 33.7 L (39.6-50.0) % MCV 106.3 H (80.0-97.0) fL MCH 34.7 H (27.0-32.0) pg Plt Count 87 L (140-440) 10*3/uL Immature Gran # 0.16 H (0.00-0.04) 10*3/uL Neutrophils # 17.90 H (1.80-7.70) 10*3/uL Lymphocytes # 0.44 L (0.90-5.00) 10*3/uL Monocytes # 1.11 H (0.20-1.00) 10*3/uL Eosinophils # 0.02 L (0.04-0.35) 10*3/uL Sodium 135 L (137-145) mmol/L BUN 23 H (9-20) mg/dL Glucose 165 H (74-99) mg/dL POC Glucose (mg/dL) 163 H (70-110) mg/dL Calcium 8.1 L (8.4-10.2) mg/dL Ammonia (<30) umol/L 12/09/24 Range/Units 11:17 WBC (4.50-10.00) 10*3/uL RBC (4.40-5.60) 10*6/uL Hgb (13.0-17.0) g/dL Hct (39.6-50.0) % MCV (80.0-97.0) fL MCH (27.0-32.0) pg Plt Count (140-440) 10*3/uL Immature Gran # (0.00-0.04) 10*3/uL Neutrophils # (1.80-7.70) 10*3/uL Lymphocytes # (0.90-5.00) 10*3/uL Monocytes # (0.20-1.00) 10*3/uL Eosinophils # (0.04-0.35) 10*3/uL Sodium (137-145) mmol/L BUN (9-20) mg/dL Glucose (74-99) mg/dL POC Glucose (mg/dL) 162 H (70-110) mg/dL Calcium (8.4-10.2) mg/dL Ammonia (<30) umol/L Microbiology - Last 24 Hours (Table) 12/06/24 01:06 Blood Culture - Preliminary Blood Assessment and Plan Plan: Acute hypoxemic respiratory failure , improved Acute COPD exacerbation Alcohol intoxication, serum alcohol level 79, resolving Elevated ammonia level, on lactulose. Acute leukocytosis Lactic acidemia, improving Chronic pancreatitis Abdominal pain Elevated troponin, suspect supply/demand mismatch History of liver cirrhosis with esophageal varices and banding History of GI bleed History of recurrent abdominal ascites with previous paracentesis History of polysubstance abuse Chronic tobacco dependence Mild LV dysfunction most likely related to alcohol. Continue his current medications and treatments, he is in the intensive care unit as an overflow patient for 3 S. Repeat labs in a.m., wait for further recommendations from pulmonology. He overall is improved.
[2024-12-09] MEDS: traMADol 50 MG TAB PO PRN (12:59)
[2024-12-09 16:18] LABS: Glucose,Whole Blood 161 mg/dL (70-110)
--- NOTE | 2024-12-09 17:10 | P.PN ---
Subjective Progress Note Date: 12/09/24 HISTORY OF PRESENTING ILLNESS This is a pleasant 49-year-old with past medical history significant for alc oholism, liver cirrhosis, esophageal varices with bands, GI bleed, ascites with previous paracentesis as well as pancreatitis, previous heavy alcohol use, tobacco abuse, COPD. Patient does not follow with a integration architect. Patient states he had RSV along with his mother approximately a month ago and then more recently has been having increased cough and fevers and chills over the last 3 to 4 days. He also has been having some chest tightness and pressure which has been off-and-on over the last few days. He states he has been drinking somewhat however not as heavy as he previously did, previously drinking half of a gallon daily. He is still smoking. He denies any marijuana or cocaine. Denies any family history of coronary artery disease. He was found to have maximum temperature 99.8. Chest x-ray shows bilateral infiltrates. He was placed on BiPAP and currently feels somewhat better in terms of her shortness of breath. Patient does have advanced directive per nursing with patient being DNR Blood work shows white blood cell count 17, hemoglobin 11.9, creatinine 0.6, lactic acid 5.1, troponin 0.54, 0.62. proBNP 3800, albumin 2.9, lipase 392. Shows normal sinus rhythm, normal axis, minimal 0.[address] depressions in the inferior leads. 12/07 Patient seen and examined. Patient still complaining of some atypical epigastric and chest pain somewhat reproducible and somewhat with deep inspiration and cough. Echocardiogram pending. Still remains on BiPAP. 12/08 Patient seen and examined. Patient still short of breath on BiPAP. He is still having intermittent chest pain. He states it is currently an 8 out of 10. Per nursing usually Ativan and morphine will help with his chest pain. 12/09/2024 Seen and examined at bedside this a.m. Still on high flow nasal cannula oxygen BP 123/73, heart rate 62 bpm PHYSICAL EXAMINATION Vital signs reviewed. CONSTITUTIONAL: No apparent distress. HEENT: Head is normocephalic. Pupils are equal, round. Sclerae anicteric. Mucous membranes of the mouth are moist. No JVD. No carotid bruit. CHEST EXAMINATION: Lungs are clear to auscultation. No chest wall tenderness is noted on palpation or with deep breathing. HEART EXAMINATION: Regular rate and rhythm. S1, S2 heard. No murmurs, gallops or rub. ABDOMEN: Soft, nontender. Positive bowel sounds. EXTREMITIES: 2+ peripheral pulses, no lower extremity edema and no calf tenderness. NEUROLOGIC EXAMINATION: Patient is awake, alert and oriented x3. ASSESSMENT Acute on chronic respiratory failure appears mainly related to pneumonia Non-STEMI likely type II mechanism related to pneumonia with significant hypoxia and lactic acidosis Precordial chest pain, may be related to pneumonia however rule out cardiac source Hypertension Alcohol abuse Previous liver cirrhosis currently appears compensated History of chronic pancreatitis Medical noncompliance Tobacco abuse Mild cardiomyopathy ejection fraction 40 to 45% PLAN Majority of presentation appears consistent with pneumonia and respiratory failure related to pneumonia. Non-STEMI likely type II mechanism however he is having some chest discomfort. Chest discomfort appears more musculoskeletal, pleuritic and related to pneumonia however monitor closely for any type I non-STEMI. Patient having more chest pain this morning therefore we will check repeat troponins. Continue with beta-collin with atenolol Losartan was added. Echo showing ejection fraction 40 to 45% with paradoxical septal motion. May be more long-term cardiomyopathy from his alcohol use and we will attempt to track down prior echoes. Continue aspirin. Likely more conservative management with patient not being a good interventional candidate with history of varices and GI bleeding in the past. Objective - Vital Signs Vital signs: Vital Signs Temp 97.9 F 12/09/24 16:00 Pulse 56 L 12/09/24 16:00 Resp 18 12/09/24 16:00 BP 123/58 12/09/24 16:00 Pulse Ox 97 12/09/24 16:00 FiO2 63 12/09/24 15:43 Intake & Output 12/08/24 12/09/24 12/09/24 18:59 06:59 18:59 Intake Total 1220 1060 Output Total 1600 1600 1950 Balance -380 -1600 -890 Weight 94.1 kg Intake: IV 240 100 Lactated Ringers 1,000 ml 40 @ 10 mls/hr IV .Q24H [facility] Rx#:[id number] Piperacillin-Tazobactam 3 200 100 .375 gm In Sodium Chloride 0.9% 100 ml @ 25 mls/hr IVPB Q8HR [facility] Rx# :[id number] Oral 980 960 Output: Urine 1600 1600 1950 Other: Voiding Method Urinal Urinal Urinal # Voids 2 4 - Labs CBC & Chem 7: 12/09/24 03:35 12/09/24 03:35 Labs: Abnormal Lab Results - Last 24 Hours (Table) 12/08/24 12/09/24 12/09/24 Range/Units 19:58 03:35 03:35 WBC 19.65 H (4.50-10.00) 10*3/uL RBC 3.17 L (4.40-5.60) 10*6/uL Hgb 11.0 L (13.0-17.0) g/dL Hct 33.7 L (39.6-50.0) % MCV 106.3 H (80.0-97.0) fL MCH 34.7 H (27.0-32.0) pg Plt Count 87 L (140-440) 10*3/uL Immature Gran # 0.16 H (0.00-0.04) 10*3/uL Neutrophils # 17.90 H (1.80-7.70) 10*3/uL Lymphocytes # 0.44 L (0.90-5.00) 10*3/uL Monocytes # 1.11 H (0.20-1.00) 10*3/uL Eosinophils # 0.02 L (0.04-0.35) 10*3/uL Sodium 135 L (137-145) mmol/L BUN 23 H (9-20) mg/dL Glucose 165 H (74-99) mg/dL POC Glucose (mg/dL) 204 H (70-110) mg/dL Calcium 8.1 L (8.4-10.2) mg/dL 12/09/24 12/09/24 12/09/24 Range/Units 06:09 11:17 16:17 WBC (4.50-10.00) 10*3/uL RBC (4.40-5.60) 10*6/uL Hgb (13.0-17.0) g/dL Hct (39.6-50.0) % MCV (80.0-97.0) fL MCH (27.0-32.0) pg Plt Count (140-440) 10*3/uL Immature Gran # (0.00-0.04) 10*3/uL Neutrophils # (1.80-7.70) 10*3/uL Lymphocytes # (0.90-5.00) 10*3/uL Monocytes # (0.20-1.00) 10*3/uL Eosinophils # (0.04-0.35) 10*3/uL Sodium (137-145) mmol/L BUN (9-20) mg/dL Glucose (74-99) mg/dL POC Glucose (mg/dL) 163 H 162 H 161 H (70-110) mg/dL Calcium (8.4-10.2) mg/dL Microbiology - Last 24 Hours (Table) 12/06/24 01:06 Blood Culture - Preliminary Blood
[2024-12-09 21:26] LABS: Glucose,Whole Blood 165 mg/dL (70-110)
[2024-12-10 06:04] LABS: Basophils # (A) 0.01 10*3/uL (0.00-0.10); Basophils % (A) 0.1 %; Eosinophils # (A) 0.01 10*3/uL (0.04-0.35); Eosinophils % (A) 0.1 %; HCT 33.7 % (39.6-50.0); HGB 11.1 g/dL (13.0-17.0); Lymphocytes # (A) 0.40 10*3/uL (0.90-5.00); Lymphocytes % (A) 2.4 %; MCH 34.8 pg (27.0-32.0); MCHC 32.9 g/dL (32.0-37.0); MCV 105.6 fL (80.0-97.0); Monocytes # (A) 0.99 10*3/uL (0.20-1.00); Monocytes % (A) 5.8 %; Neutrophils # (A) 15.49 10*3/uL (1.80-7.70); Neutrophils % (A) 90.9 %; RBC 3.19 10*6/uL (4.40-5.60); RDW 16.7 % (11.5-14.5); WBC 17.02 10*3/uL (4.50-10.00)
[2024-12-10 06:25] LABS: ALT 51 U/L (4-49); AST 78 U/L (17-59); African American GFR (CKD) >90 (>60 ml/min/1.73 sqM); Albumin 2.4 g/dL (3.5-5.0); Alkaline Phosphatase 182 U/L (38-126); Anion Gap 4 mmol/L; Blood Urea Nitrogen 19 mg/dL (9-20); Calcium 7.9 mg/dL (8.4-10.2); Carbon Dioxide 29 mmol/L (22-30); Chloride 102 mmol/L (98-107); Glucose 184 mg/dL (74-99); Non-African American GFR(CKD) >90 (>60 ml/min/1.73 sqM); Potassium 3.0 mmol/L (3.5-5.1); Sodium 135 mmol/L (137-145); Total Protein 5.2 g/dL (6.3-8.2)
[2024-12-10 06:33] LABS: Glucose,Whole Blood 212 mg/dL (70-110)
[2024-12-10 06:46] LABS: Platelet Count 78 10*3/uL (140-440)
--- NOTE | 2024-12-10 07:40 | XR ---
EXAMINATION TYPE: XR chest 1V DATE OF EXAM: 12/10/2024 5:45 AM COMPARISON: 12/09/2024 CLINICAL INDICATION: Male, 49 years old with history of pneumonia, airvo vs bipap, TECHNIQUE: Single frontal view of the chest is obtained. FINDINGS: Reticulonodular infiltrates persist although may be slightly improved. Correlate for atypic al pneumonia. The cardiac silhouette size is within normal limits. The osseous structures are intac t. IMPRESSION: Reticulonodular infiltrates persist although may be slightly improved. Correlate for at ypical pneumonia. [facility], , 12/10/2024 7:38 AM
[2024-12-10] MEDS: POTASSIUM CHLORIDE ER 20 MEQ TAB.ER PO SCH ×2 (08:58→17:34)
--- NOTE | 2024-12-10 10:39 | P.PN ---
Subjective Progress Note Date: 12/10/24 Principal diagnosis: Acute hypoxic respiratory failure, multifactorial Patient is a 49-year-old male with past medical history consistent of alcoholism, liver cirrhosis, esophageal varices with bands, GI bleed, recurrent abdominal ascites with previous paracentesis, chronic pancreatitis, polysubstance abuse, current tobacco dependence, COPD. His primary care provider is Dr. Meza. Patient brought in by EMS late last night and state respiratory distress. Patient was placed on BiPAP on arrival. Chest x-ray showing enlarged cardiac silhouette, diffuse bilateral lower lung field consolidations consistent with multilobar pneumonia. Tachypneic, tachycardic, acute leukocytosis, with low-grade fever. Patient received empiric dose azithromycin and Rocephin in the ED. CBC with a WBC count of 17.52, hemoglobin 11.9, platelets 144. CMP: Sodium 137, potassium 5.3, chloride 106, serum bicarb 21, BUN 19, creatinine 0.67, glucose 124. Lactic was elevated at 5.1 and is tr ending down to 3.9. LFTs mildly elevated. Lipase 392, amylase 73. Troponin elevated at 0.543 possibly secondary to supply/demand mismatch. EKG: Sinus tachycardia, rate 110 bpm, no acute ST segment elevations or T wave inversions. NT proBNP was 3800. Most recent echocardiogram dating back to 2017, estimating a LV function of 55 to 60%. No significant valvular abnormalities were reported. I did receive from Dr. De La Fuente who was concerned that this patient may decompensate, and would be better monitored in the intensive care unit. Evaluating the patient in the emergency department he is on BiPAP with settings 12/6 and FiO2 of 70%. He is tachypneic breathing the mid 30s. Despite this, r elatively calm and able to answer questioning. No signs of CO2 narcosis. He states that he went on a roland approximately 3 to 4 days ago. Previously, he drank half a gallon of liquor per day and now he is down to 1 pint per day. Serum alcohol level was 79 on arrival. He is unsure of exactly when, but developed increasingly worsening shortness of breath with associated cough and subjective fevers. Denies sick contacts. Denies recent travel. States he lives at home with his parents. Denies chest pain or lower extremity swelling. Most recent vital signs temperature 99.8 F, heart rate 103 bpm, blood pressure 133/83 mmHg, tachypneic, SpO2 reading 96% on bedside monitor. Patient was seen today on 12/07/2024, patient remains in the ICU, his overall clinical picture is slightly better today compared to yesterday, however his chest x-ray showed significant improvement in his interstitial infiltrate/edema. Patient did receive Lasix yesterday, and he will continue to receive Lasix to day. His procalcitonin level was a bit elevated at 0.40, BNP was elevated on admission, echocardiogram is pending. Again considering the improvement on his chest x-ray overnight, this speaks in favor of more pulmonary edema than true pneumonia. Although I suspect that we are dealing with both/pulmonary edema and pneumonia considering his presentation and his clinical history. Patient remains on BiPAP 12//50%, he will be transitioned to a nasal cannula. Again echocardiogram is pending. Patient remains on Zosyn empirically. His IV fluids will be cut down to KVO, patient will receive another dose of Lasix today, and will plan to continue the CIWA protocol. WBC count is 23.97 hemoglobin is 12 electrolytes are normal renal profile is normal Seen today on 12/08/2024, remains in the ICU, remains on BiPAP, patient is developing worsening interstitial edema again today, his last dose of Lasix was yesterday, and a chest x-ray yesterday was dramatically more improved compared to the day before and compared to today. Hence I am recommending more diuretics for this patient, will recommend 40 mg IV push twice daily. Ejection fraction on his echocardiogram was 40 to 45%. Patient is on BiPAP 12/6/50%. Does not seem to be in any distress, he is quite comfortable, however he does have leukocytosis and he remains on antibiotics with WBC count of 23.7 hemoglobin is 11.3 electrolytes are normal renal profile is normal bicarb is normal. Troponin is elevated ammonia level is quite high at 100. Patient is on lactulose 30 g 3 times daily. Seen today on 12/09/2024, remains in the ICU as an overflow, presently on Airvo at 60 L flow and 60% FiO2. Intermittently on BiPAP 12/6/40%. Remains on Zosyn remains on diuretics remains on lactulose, patient is frequently refusing treatment including diuretics and lactulose. In the meantime patient is marginal at best. Chest x-ray showed slight improvement in his interstitial edema/infiltrates. WBC count is 19.6 hemoglobin is 11 electrolytes are normal renal profile is normal last ammonia level was also 100 yesterday, patient is refusing lactulose. Patient was seen today on 12/10/2024, remains in the ICU as an overflow, remains on Airvo at 60% FiO2 at 60 L flow, O2 sat is 96%, hence I recommended going to IV 15 L high flow nasal cannula instead since it seems to be difficult to titrate his FiO2 down on Airvo. Patient is on CIWA protocol, he is also on Ativan received 2 doses in the last 24 hours of Ativan, and is supposed to go to the medical floor for further treatment. Continues to refuse intermittently has lactulose and his Lasix. Chest x-ray continues show bibasilar interstitial infiltrates/edema. WBC count is 17 hemoglobin 11.1 electrolytes are normal except for low potassium of 3.0 renal profile is normal. Clinically the patient seems to be comfortable, not in distress, not anxious and not agitated. Hence we will still arrange for transfer to a medical surgical floor today. Objective - Vital Signs Vital signs: Vital Signs Temp 97.5 F L 12/10/24 08:00 Pulse 68 12/10/24 09:03 Resp 17 12/10/24 09:00 BP 125/64 12/10/24 08:00 Pulse Ox 98 12/10/24 09:00 FiO2 63 12/10/24 04:07 Intake & Output 12/09/24 12/10/24 12/10/24 18:59 06:59 18:59 Intake Total 1060 200 220 Output Total 1950 1400 300 Balance -890 -1200 -80 Weight 90 kg Intake: IV 100 200 220 Lactated Ringers 1,000 ml 120 @ 10 mls/hr IV .Q24H RADHA Rx#:[id number] Piperacillin-Tazobactam 3 100 200 100 .375 gm In Sodium Chloride 0.9% 100 ml @ 25 mls/hr IVPB Q8HR RADHA Rx# :[id number] Oral 960 Output: Urine 1950 1400 300 Other: Voiding Method Urinal Urinal # Voids 4 1 1 # Bowel Movements 1 - Exam GENERAL EXAM: Revealed 49-year-old white male on Airvo in no distress, will transition to 15 L high flow nasal cannula and titrate accordingly HEAD: Normocephalic and atraumatic EYES: Normal reaction of pupils, equal size. NOSE: Clear with pink turbinates. THROAT: No erythema or exudates. NECK: No masses, no JVD. CHEST: No chest wall deformity. LUNGS: Crackles at the bases persist. CVS: S1 and S2 normal with no audible murmur, regular rhythm. No extra heart sounds ABDOMEN: No hepatosplenomegaly, active bowel sounds, no guarding or rigidity. SKIN: No rashes CENTRAL NERVOUS SYSTEM: Alert oriented x 3 no gross focal neurologic deficit EXTREMITIES: No clubbing, edema or cyanosis. - Labs CBC & Chem 7: 12/10/24 05:38 12/10/24 05:38 Labs: Abnormal Lab Results - Last 24 Hours (Table) 12/09/24 12/09/24 12/09/24 Range/Units 11:17 16:17 21:25 WBC (4.50-10.00) 10*3/uL RBC (4.40-5.60) 10*6/uL Hgb (13.0-17.0) g/dL Hct (39.6-50.0) % MCV (80.0-97.0) fL MCH (27.0-32.0) pg Plt Count (140-440) 10*3/uL Immature Gran # (0.00-0.04) 10*3/uL Neutrophils # (1.80-7.70) 10*3/uL Lymphocytes # (0.90-5.00) 10*3/uL Eosinophils # (0.04-0.35) 10*3/uL Sodium (137-145) mmol/L Potassium (3.5-5.1) mmol/L Glucose (74-99) mg/dL POC Glucose (mg/dL) 162 H 161 H 165 H (70-110) mg/dL Calcium (8.4-10.2) mg/dL Total Bilirubin (0.2-1.3) mg/dL AST (17-59) U/L ALT (4-49) U/L Alkaline Phosphatase (38-126) U/L Total Protein (6.3-8.2) g/dL Albumin (3.5-5.0) g/dL 12/10/24 12/10/24 12/10/24 Range/Units 05:38 05:38 06:32 WBC 17.02 H (4.50-10.00) 10*3/uL RBC 3.19 L (4.40-5.60) 10*6/uL Hgb 11.1 L (13.0-17.0) g/dL Hct 33.7 L (39.6-50.0) % MCV 105.6 H (80.0-97.0) fL MCH 34.8 H (27.0-32.0) pg Plt Count 78 L (140-440) 10*3/uL Immature Gran # 0.12 H (0.00-0.04) 10*3/uL Neutrophils # 15.49 H (1.80-7.70) 10*3/uL Lymphocytes # 0.40 L (0.90-5.00) 10*3/uL Eosinophils # 0.01 L (0.04-0.35) 10*3/uL Sodium 135 L (137-145) mmol/L Potassium 3.0 L (3.5-5.1) mmol/L Glucose 184 H (74-99) mg/dL POC Glucose (mg/dL) 212 H (70-110) mg/dL Calcium 7.9 L (8.4-10.2) mg/dL Total Bilirubin 2.0 H (0.2-1.3) mg/dL AST 78 H (17-59) U/L ALT 51 H (4-49) U/L Alkaline Phosphatase 182 H (38-126) U/L Total Protein 5.2 L (6.3-8.2) g/dL Albumin 2.4 L (3.5-5.0) g/dL Microbiology - Last 24 Hours (Table) 12/06/24 01:06 Blood Culture - Preliminary Blood Assessment and Plan Assessment: Impression: Acute hypoxemic respiratory failure, on BiPAP, secondary to above, chest x-ray showing cardiomegaly, diffuse bilateral lower lung field consolidations consistent congestive heart failure and possibly aspiration pneumonia. Acute COPD exacerbation Alcohol intoxication, serum alcohol level 79 Elevated ammonia level, on lactulose. Acute leukocytosis Lactic acidemia, improving Chronic pancreatitis Abdominal pain Elevated troponin, suspect supply/demand mismatch History of liver cirrhosis with esophageal varices and banding History of GI bleed History of recurrent abdominal ascites with previous paracentesis History of polysubstance abuse Chronic tobacco dependence Mild LV dysfunction most likely related to alcohol. Recommendation: Continue present supportive care measures Transferred to medical floor Titrate O2 accordingly patient will be changed to 15 L high flow nasal cannula Continue antibiotics and diuretics Patient is refusing lactulose is also refusing diuretics Continue CIWA protoco lContinue GI and DVT prophylaxis Will continue to follow Time with Patient: Less than 30
--- NOTE | 2024-12-10 10:47 | P.PN ---
Subjective December 09, 2024: Patient is reevaluated. He remains in intensive care unit as overflow. He remains on Airvo 60 L/min with an FiO2 of 63%. He is undergoing a breathing treatment while I am seeing him today. He indicates he is feeling much better. He complains of some minor tremors that have improved since arrival. He also complains of some mild chest pain. No nausea or vomiting no diarrhea or constipation. He was originally admitted for bilateral pneumonia, suspected for aspiration. He has significant history of alcoholism along with alcoholic hepatitis and chronic pancreatitis. He has known esophageal varices as well. Signs this morning are stable blood pressure controlled. Labs show WBC count of 19.65 hemoglobin is 11 MCV 106.3 platelets are 87. Chemistries are essentially normal with exception of glucose which has been slightly elevated. Blood cultures are negative. Sickle care notes reviewed remains on Zosyn and diuretic s with lactulose as well. December 10, 2024: Patient continues to complain of pain abdomen consistent with his chronic pancreatitis. Changed to tramadol and morphine was discontinued. We discussed why that was as my concerns with respiratory suppression and his pneumonia. He indicates tramadol not help and would like Kingsley which he does take at home. He is currently on high flow oxygen via nasal cannula 15 L/min. Staff indicate he is overall improved. He received lorazepam last night twice once this morning. Pulmonology is following. He will go to the stepdown unit soon. He remains on Zosyn for antibiotic coverage for his pneumonia. He has albuterol and budesonide breathing treatments along with methylprednisolone. He continues on pantoprazole for GERD. Diazepam and chlordiazepoxide for CIWA protocol scales Objective - Vital Signs Vital signs: Vital Signs Temp 97.5 F L 12/10/24 08:00 Pulse 68 12/10/24 09:03 Resp 17 12/10/24 09:00 BP 125/64 12/10/24 08:00 Pulse Ox 98 12/10/24 09:00 FiO2 63 12/10/24 04:07 Intake & Output 12/09/24 12/10/24 12/10/24 18:59 06:59 18:59 Intake Total 1060 200 220 Output Total 1950 1400 300 Balance -890 -1200 -80 Weight 90 kg Intake: IV 100 200 220 Lactated Ringers 1,000 ml 120 @ 10 mls/hr IV .Q24H [facility] Rx#:[id number] Piperacillin-Tazobactam 3 100 200 100 .375 gm In Sodium Chloride 0.9% 100 ml @ 25 mls/hr IVPB Q8HR [facility] Rx# :[id number] Oral 960 Output: Urine 1950 1400 300 Other: Voiding Method Urinal Urinal # Voids 4 1 1 # Bowel Movements 1 - Exam General: The patient is awake and alert, in no distress, cannula in place Neck: The neck is supple, there is no thyromegaly, lymphadenopathy, tenderness or JVD. Cardiovascular: S1S2 is normal, There is a regular rate and rhythm. No murmur, rub or gallop is appreciated. Respiratory: Lungs are somewhat coarse to auscultation bilaterally, respirations are non-labored, breath sounds are equal. Gastrointestinal: Soft, non-distended, non-tender abdomen there is some noted mild hepatomegaly palpated. Musculoskeletal: Normal ROM, no tenderness, There is no pedal edema. There is no calf tenderness or swelling. No cords were appreciated. Neurological: CN II-XII intact, there are no obvious motor or sensory deficits. Coordination appears grossly intact. Speech is normal. Slightly tremulous Skin: Skin is warm and dry and no rashes or lesions are noted. - Labs CBC & Chem 7: 12/10/24 05:38 12/10/24 05:38 Labs: Abnormal Lab Results - Last 24 Hours (Table) 12/09/24 12/09/24 12/09/24 Range/Units 11:17 16:17 21:25 WBC (4.50-10.00) 10*3/uL RBC (4.40-5.60) 10*6/uL Hgb (13.0-17.0) g/dL Hct (39.6-50.0) % MCV (80.0-97.0) fL MCH (27.0-32.0) pg Plt Count (140-440) 10*3/uL Immature Gran # (0.00-0.04) 10*3/uL Neutrophils # (1.80-7.70) 10*3/uL Lymphocytes # (0.90-5.00) 10*3/uL Eosinophils # (0.04-0.35) 10*3/uL Sodium (137-145) mmol/L Potassium (3.5-5.1) mmol/L Glucose (74-99) mg/dL POC Glucose (mg/dL) 162 H 161 H 165 H (70-110) mg/dL Calcium (8.4-10.2) mg/dL Total Bilirubin (0.2-1.3) mg/dL AST (17-59) U/L ALT (4-49) U/L Alkaline Phosphatase (38-126) U/L Total Protein (6.3-8.2) g/dL Albumin (3.5-5.0) g/dL 12/10/24 12/10/24 12/10/24 Range/Units 05:38 05:38 06:32 WBC 17.02 H (4.50-10.00) 10*3/uL RBC 3.19 L (4.40-5.60) 10*6/uL Hgb 11.1 L (13.0-17.0) g/dL Hct 33.7 L (39.6-50.0) % MCV 105.6 H (80.0-97.0) fL MCH 34.8 H (27.0-32.0) pg Plt Count 78 L (140-440) 10*3/uL Immature Gran # 0.12 H (0.00-0.04) 10*3/uL Neutrophils # 15.49 H (1.80-7.70) 10*3/uL Lymphocytes # 0.40 L (0.90-5.00) 10*3/uL Eosinophils # 0.01 L (0.04-0.35) 10*3/uL Sodium 135 L (137-145) mmol/L Potassium 3.0 L (3.5-5.1) mmol/L Glucose 184 H (74-99) mg/dL POC Glucose (mg/dL) 212 H (70-110) mg/dL Calcium 7.9 L (8.4-10.2) mg/dL Total Bilirubin 2.0 H (0.2-1.3) mg/dL AST 78 H (17-59) U/L ALT 51 H (4-49) U/L Alkaline Phosphatase 182 H (38-126) U/L Total Protein 5.2 L (6.3-8.2) g/dL Albumin 2.4 L (3.5-5.0) g/dL Microbiology - Last 24 Hours (Table) 12/06/24 01:06 Blood Culture - Preliminary Blood Assessment and Plan Plan: Acute hypoxemic respiratory failure , improved Acute COPD exacerbation Alcohol intoxication, serum alcohol level 79, resolving Elevated ammonia level, on lactulose. Acute leukocytosis Lactic acidemia, improving Chronic pancreatitis Abdominal pain Elevated troponin, suspect supply/demand mismatch History of liver cirrhosis with esophageal varices and banding History of GI bleed History of recurrent abdominal ascites with previous paracentesis History of polysubstance abuse Chronic tobacco dependence Mild LV dysfunction most likely related to alcohol. Continue his current medications and treatments, he is in the intensive care unit as an overflow patient for 3 S. Repeat labs in a.m., continue tramadol in favor of hydrocodone wait for further recommendations from pulmonology. He overall is improved.
[2024-12-10 11:07] LABS: Glucose,Whole Blood 192 mg/dL (70-110)
[2024-12-10] MEDS: HYDROcodone/APAP 7.5-325MG 1 EACH TAB PO PRN (11:50)
[2024-12-10] MEDS ORDERED: Potassium Replacement Protocol 1 EACH MISC MISCELLANE PRN (14:42)
[2024-12-10 16:48] LABS: Glucose,Whole Blood 246 mg/dL (70-110)
[2024-12-10 20:07] LABS: Glucose,Whole Blood 192 mg/dL (70-110)
[2024-12-10] MEDS: chlordiazePOXIDE 25 MG CAP PO PRN (20:52)
[2024-12-10] MEDS: POTASSIUM CHLORIDE ER 20 MEQ TAB.ER PO STA (22:03)
--- NOTE | 2024-12-11 00:41 | P.PN ---
Subjective Progress Note Date: 12/10/24 HISTORY OF PRESENTING ILLNESS This is a pleasant 49-year-old with past medical history significant for alc oholism, liver cirrhosis, esophageal varices with bands, GI bleed, ascites with previous paracentesis as well as pancreatitis, previous heavy alcohol use, tobacco abuse, COPD. 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 Patient states he had RSV along with his mother approximately a month ago and then more recently has been having increased cough and fevers and chills over the last 3 to 4 days. He also has been having some chest tightness and pressure which has been off-and-on over the last few days. He states he has been drinking somewhat however not as heavy as he previously did, previously drinking half of a gallon daily. He is still smoking. He denies any marijuana or cocaine. Denies any family history of coronary artery disease. He was found to have maximum temperature 99.8. Chest x-ray shows bilateral infiltrates. He was placed on BiPAP and currently feels somewhat better in terms of her shortness of breath. Patient does have advanced directive per nursing with patient being DNR Blood work shows white blood cell count 17, hemoglobin 11.9, creatinine 0.6, lactic acid 5.1, troponin 0.54, 0.62. proBNP 3800, albumin 2.9, lipase 392. Shows normal sinus rhythm, normal axis, minimal 0.[address] depressions in the inferior leads. 12/07 Patient seen and examined. Patient still complaining of some atypical epigastric and chest pain somewhat reproducible and somewhat with deep inspiration and cough. Echocardiogram pending. Still remains on BiPAP. 12/08 Patient seen and examined. Patient still short of breath on BiPAP. He is still having intermittent chest pain. He states it is currently an 8 out of 10. Per nursing usually Ativan and morphine will help with his chest pain. 12/09/2024 Seen and examined at bedside this a.m. Still on high flow nasal cannula oxygen BP 123/73, heart rate 62 bpm 12/03/2024 Been transferred out of ICU today. On 4 to 5 L of nasal cannula supplemental oxygen Hemodynamically stable. PHYSICAL EXAMINATION Vital signs reviewed. CONSTITUTIONAL: No apparent distress. HEENT: Head is normocephalic. Pupils are equal, round. Sclerae anicteric. Mucous membranes of the mouth are moist. No JVD. No carotid bruit. CHEST EXAMINATION: Lungs are clear to auscultation. No chest wall tenderness is noted on palpation or with deep breathing. HEART EXAMINATION: Regular rate and rhythm. S1, S2 heard. No murmurs, gallops or rub. ABDOMEN: Soft, nontender. Positive bowel sounds. EXTREMITIES: 2+ peripheral pulses, no lower extremity edema and no calf tenderness. NEUROLOGIC EXAMINATION: Patient is awake, alert and oriented x3. ASSESSMENT Acute on chronic respiratory failure appears mainly related to pneumonia Non-STEMI likely type II mechanism related to pneumonia with significant hypoxia and lactic acidosis Precordial chest pain, may be related to pneumonia however rule out cardiac source Hypertension Alcohol abuse Previous liver cirrhosis currently appears compensated History of chronic pancreatitis Medical noncompliance Tobacco abuse Mild cardiomyopathy ejection fraction 40 to 45% PLAN Majority of presentation appears consistent with pneumonia and respiratory failure related to pneumonia. Non-STEMI likely type II mechanism however he is having some chest discomfort. Chest discomfort appears more musculoskeletal, pleuritic and related to pneumonia however monitor closely for any type I non-STEMI. Patient having more chest pain this morning therefore we will check repeat troponins. Continue with beta-collin with atenolol Losartan was added. Echo showing ejection fraction 40 to 45% with paradoxical septal motion. May be more long-term cardiomyopathy from his alcohol use and we will attempt to track down prior echoes. Continue aspirin. Likely more conservative management with patient not being a good interventional candidate with history of varices and GI bleeding in the past. Objective - Vital Signs Vital signs: Vital Signs Temp 98 F 12/10/24 19:50 Pulse 71 12/11/24 00:20 Resp 22 12/11/24 00:20 BP 119/66 12/11/24 00:20 Pulse Ox 98 12/11/24 00:20 FiO2 63 12/10/24 04:07 Intake & Output 12/10/24 12/10/24 12/11/24 06:59 18:59 06:59 Intake Total 200 442 Output Total 1400 1974 Balance -1200 1533 - Weight 90 kg Intake: IV 200 220 Lactated Ringers 1,000 ml 120 @ 10 mls/hr IV .Q24H [facility] Rx#:[id number] Piperacillin-Tazobactam 3 200 100 .375 gm In Sodium Chloride 0.9% 100 ml @ 25 mls/hr IVPB Q8HR [facility] Rx# :[id number] Oral 222 Output: Urine 1400 1975 225 Other: Voiding Method Urinal Urinal Urinal # Voids 1 3 1 # Bowel Movements 1 - Labs CBC & Chem 7: 12/10/24 05:38 12/10/24 20:43 Labs: Abnormal Lab Results - Last 24 Hours (Table) 12/10/24 12/10/24 12/10/24 Range/Units 05:38 05:38 06:32 WBC 17.02 H (4.50-10.00) 10*3/uL RBC 3.19 L (4.40-5.60) 10*6/uL Hgb 11.1 L (13.0-17.0) g/dL Hct 33.7 L (39.6-50.0) % MCV 105.6 H (80.0-97.0) fL MCH 34.8 H (27.0-32.0) pg Plt Count 78 L (140-440) 10*3/uL Immature Gran # 0.12 H (0.00-0.04) 10*3/uL Neutrophils # 15.49 H (1.80-7.70) 10*3/uL Lymphocytes # 0.40 L (0.90-5.00) 10*3/uL Eosinophils # 0.01 L (0.04-0.35) 10*3/uL Sodium 135 L (137-145) mmol/L Potassium 3.0 L (3.5-5.1) mmol/L Glucose 184 H (74-99) mg/dL POC Glucose (mg/dL) 212 H (70-110) mg/dL Calcium 7.9 L (8.4-10.2) mg/dL Total Bilirubin 2.0 H (0.2-1.3) mg/dL AST 78 H (17-59) U/L ALT 51 H (4-49) U/L Alkaline Phosphatase 182 H (38-126) U/L Total Protein 5.2 L (6.3-8.2) g/dL Albumin 2.4 L (3.5-5.0) g/dL 12/10/24 12/10/24 12/10/24 Range/Units 11:05 13:47 16:46 WBC (4.50-10.00) 10*3/uL RBC (4.40-5.60) 10*6/uL Hgb (13.0-17.0) g/dL Hct (39.6-50.0) % MCV (80.0-97.0) fL MCH (27.0-32.0) pg Plt Count (140-440) 10*3/uL Immature Gran # (0.00-0.04) 10*3/uL Neutrophils # (1.80-7.70) 10*3/uL Lymphocytes # (0.90-5.00) 10*3/uL Eosinophils # (0.04-0.35) 10*3/uL Sodium (137-145) mmol/L Potassium 3.2 L (3.5-5.1) mmol/L Glucose (74-99) mg/dL POC Glucose (mg/dL) 192 H 246 H (70-110) mg/dL Calcium (8.4-10.2) mg/dL Total Bilirubin (0.2-1.3) mg/dL AST (17-59) U/L ALT (4-49) U/L Alkaline Phosphatase (38-126) U/L Total Protein (6.3-8.2) g/dL Albumin (3.5-5.0) g/dL 12/10/24 Range/Units 20:05 WBC (4.50-10.00) 10*3/uL RBC (4.40-5.60) 10*6/uL Hgb (13.0-17.0) g/dL Hct (39.6-50.0) % MCV (80.0-97.0) fL MCH (27.0-32.0) pg Plt Count (140-440) 10*3/uL Immature Gran # (0.00-0.04) 10*3/uL Neutrophils # (1.80-7.70) 10*3/uL Lymphocytes # (0.90-5.00) 10*3/uL Eosinophils # (0.04-0.35) 10*3/uL Sodium (137-145) mmol/L Potassium (3.5-5.1) mmol/L Glucose (74-99) mg/dL POC Glucose (mg/dL) 192 H (70-110) mg/dL Calcium (8.4-10.2) mg/dL Total Bilirubin (0.2-1.3) mg/dL AST (17-59) U/L ALT (4-49) U/L Alkaline Phosphatase (38-126) U/L Total Protein (6.3-8.2) g/dL Albumin (3.5-5.0) g/dL
[2024-12-11 06:27] LABS: Glucose,Whole Blood 232 mg/dL (70-110)
[2024-12-11 08:53] LABS: Basophils # (A) 0.03 10*3/uL (0.00-0.10); Basophils % (A) 0.1 %; Eosinophils # (A) 0.00 10*3/uL (0.04-0.35); Eosinophils % (A) 0.0 %; HCT 36.0 % (39.6-50.0); HGB 12.0 g/dL (13.0-17.0); Lymphocytes # (A) 0.35 10*3/uL (0.90-5.00); Lymphocytes % (A) 1.6 %; MCH 35.3 pg (27.0-32.0); MCHC 33.3 g/dL (32.0-37.0); MCV 105.9 fL (80.0-97.0); Monocytes # (A) 1.06 10*3/uL (0.20-1.00); Monocytes % (A) 4.9 %; Neutrophils # (A) 20.23 10*3/uL (1.80-7.70); Neutrophils % (A) 92.7 %; RBC 3.40 10*6/uL (4.40-5.60); RDW 16.4 % (11.5-14.5); WBC 21.82 10*3/uL (4.50-10.00)
[2024-12-11 09:09] LABS: ALT 59 U/L (4-49); AST 80 U/L (17-59); African American GFR (CKD) >90 (>60 ml/min/1.73 sqM); Albumin 2.6 g/dL (3.5-5.0); Alkaline Phosphatase 184 U/L (38-126); Anion Gap 4 mmol/L; Blood Urea Nitrogen 20 mg/dL (9-20); Calcium 8.3 mg/dL (8.4-10.2); Carbon Dioxide 30 mmol/L (22-30); Chloride 103 mmol/L (98-107); Glucose 186 mg/dL (74-99); Non-African American GFR(CKD) >90 (>60 ml/min/1.73 sqM); Potassium 4.1 mmol/L (3.5-5.1); Sodium 137 mmol/L (137-145); Total Protein 5.5 g/dL (6.3-8.2)
[2024-12-11 11:03] LABS: Platelet Count 81 10*3/uL (140-440)
[2024-12-11 11:54] LABS: Glucose,Whole Blood 229 mg/dL (70-110)
--- NOTE | 2024-12-11 14:07 | P.PN ---
Subjective Progress Note Date: 12/11/24 HISTORY OF PRESENTING ILLNESS This is a pleasant 49-year-old with past medical history significant for al coholism, liver cirrhosis, esophageal varices with bands, GI bleed, ascites with previous paracentesis as well as pancreatitis, previous heavy alcohol use, tobacco abuse, COPD. 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 Patient states he had RSV along with his mother approximately a month ago and then more recently has been having increased cough and fevers and chills over the last 3 to 4 days. He also has been having some chest tightness and pressure which has been off-and-on over the last few days. He states he has been drinking somewhat however not as heavy as he previously did, previously drinking half of a gallon daily. He is still smoking. He denies any marijuana or cocaine. Denies any family history of coronary artery disease. He was found to have maximum temperature 99.8. Chest x-ray shows bilateral infiltrates. He was placed on BiPAP and currently feels somewhat better in terms of her shortness of breath. Patient does have advanced directive per nursing with patient being DNR Blood work shows white blood cell count 17, hemoglobin 11.9, creatinine 0.6, lactic acid 5.1, troponin 0.54, 0.62. proBNP 3800, albumin 2.9, lipase 392. Shows normal sinus rhythm, normal axis, minimal 0.[address] depressions in the inferior leads. 12/07 Patient seen and examined. Patient still complaining of some atypical epigastric and chest pain somewhat reproducible and somewhat with deep inspiration and cough. Echocardiogram pending. Still remains on BiPAP. 12/08 Patient seen and examined. Patient still short of breath on BiPAP. He is still having intermittent chest pain. He states it is currently an 8 out of 10. Per nursing usually Ativan and morphine will help with his chest pain. 12/09/2024 Seen and examined at bedside this a.m. Still on high flow nasal cannula oxygen BP 123/73, heart rate 62 bpm 12/10/2024 Been transferred out of ICU today. On 4 to 5 L of nasal cannula supplemental oxygen Hemodynamically stable. 12/11/2024 Patient seen and examined on the cardiac stepdown unit. Blood pressure 109/63, heart rate 60, pulse ox 95% on high flow nasal cannula 10 L. Repeat blood work reveals WBC 21, hemoglobin 12, creatinine 0.75. Liver function tests are elevated. PHYSICAL EXAMINATION Vital signs reviewed. CONSTITUTIONAL: No apparent distress. HEENT: Head is normocephalic. Pupils are equal, round. Sclerae anicteric. Mucous membranes of the mouth are moist. No JVD. No carotid bruit. CHEST EXAMINATION: Lungs are clear to auscultation. No chest wall tenderness is noted on palpation or with deep breathing. HEART EXAMINATION: Regular rate and rhythm. S1, S2 heard. No murmurs, gallops or rub. ABDOMEN: Soft, nontender. Positive bowel sounds. EXTREMITIES: 2+ peripheral pulses, no lower extremity edema and no calf tenderness. NEUROLOGIC EXAMINATION: Patient is awake, alert and oriented x3. ASSESSMENT Acute on chronic respiratory failure appears mainly related to pneumonia Non-STEMI likely type II mechanism related to pneumonia with significant hypoxia and lactic acidosis Precordial chest pain, may be related to pneumonia however rule out cardiac source COPD exacerbation Hypertension Alcohol abuse Previous liver cirrhosis currently appears compensated History of chronic pancreatitis Medical noncompliance Tobacco abuse Mild cardiomyopathy ejection fraction 40 to 45% PLAN Majority of presentation appears consistent with pneumonia and respiratory failure related to pneumonia. Non-STEMI likely type II mechanism however he is having some chest discomfort. Chest discomfort appears more musculoskeletal, pleuritic and related to pneum onia however monitor closely for any type I non-STEMI. Patient having more chest pain this morning therefore we will check repeat troponins. Continue with beta-collin with atenolol Losartan was added. Echo showing ejection fraction 40 to 45% with paradoxical septal motion. May be more long-term cardiomyopathy from his alcohol use and we will attempt to track down prior echoes. Continue aspirin. Likely conservative management with patient not being a good interventional candidate with history of varices and GI bleeding in the past. Nurse practitioner note has been reviewed, I agree with documented findings and plan of care. Patient was seen and examined. Objective - Vital Signs Vital signs: Vital Signs Temp 97.7 F 12/11/24 12:13 Pulse 64 12/11/24 12:42 Resp 16 12/11/24 12:13 BP 113/62 12/11/24 12:13 Pulse Ox 96 12/11/24 12:13 FiO2 63 12/10/24 04:07 Intake & Output 12/10/24 12/11/24 12/11/24 18:59 06:59 18:59 Intake Total 442 600 Output Total 5985 608 5535 Balance -1533 -925 -875 Weight 94 kg Intake: IV 220 Lactated Ringers 1,000 ml 120 @ 10 mls/hr IV .Q24H [facility] Rx#:[id number] Piperacillin-Tazobactam 3 100 .375 gm In Sodium Chloride 0.9% 100 ml @ 25 mls/hr IVPB Q8HR [facility] Rx# :[id number] Oral 222 600 Output: Urine 9518 424 3933 Other: Voiding Method Urinal Urinal # Voids 3 1 - Labs CBC & Chem 7: 12/11/24 08:05 12/11/24 08:05 Labs: Abnormal Lab Results - Last 24 Hours (Table) 12/10/24 12/10/24 12/10/24 Range/Units 13:47 16:46 20:05 WBC (4.50-10.00) 10*3/uL RBC (4.40-5.60) 10*6/uL Hgb (13.0-17.0) g/dL Hct (39.6-50.0) % MCV (80.0-97.0) fL MCH (27.0-32.0) pg Plt Count (140-440) 10*3/uL Immature Gran # (0.00-0.04) 10*3/uL Neutrophils # (1.80-7.70) 10*3/uL Lymphocytes # (0.90-5.00) 10*3/uL Monocytes # (0.20-1.00) 10*3/uL Eosinophils # (0.04-0.35) 10*3/uL Potassium 3.2 L (3.5-5.1) mmol/L Glucose (74-99) mg/dL POC Glucose (mg/dL) 246 H 192 H (70-110) mg/dL Calcium (8.4-10.2) mg/dL Total Bilirubin (0.2-1.3) mg/dL AST (17-59) U/L ALT (4-49) U/L Alkaline Phosphatase (38-126) U/L Total Protein (6.3-8.2) g/dL Albumin (3.5-5.0) g/dL 12/11/24 12/11/24 12/11/24 Range/Units 06:25 08:05 08:05 WBC 21.82 H (4.50-10.00) 10*3/uL RBC 3.40 L (4.40-5.60) 10*6/uL Hgb 12.0 L (13.0-17.0) g/dL Hct 36.0 L (39.6-50.0) % MCV 105.9 H (80.0-97.0) fL MCH 35.3 H (27.0-32.0) pg Plt Count 81 L (140-440) 10*3/uL Immature Gran # 0.15 H (0.00-0.04) 10*3/uL Neutrophils # 20.23 H (1.80-7.70) 10*3/uL Lymphocytes # 0.35 L (0.90-5.00) 10*3/uL Monocytes # 1.06 H (0.20-1.00) 10*3/uL Eosinophils # 0.00 L (0.04-0.35) 10*3/uL Potassium (3.5-5.1) mmol/L Glucose 186 H (74-99) mg/dL POC Glucose (mg/dL) 232 H (70-110) mg/dL Calcium 8.3 L (8.4-10.2) mg/dL Total Bilirubin 2.0 H (0.2-1.3) mg/dL AST 80 H (17-59) U/L ALT 59 H (4-49) U/L Alkaline Phosphatase 184 H (38-126) U/L Total Protein 5.5 L (6.3-8.2) g/dL Albumin 2.6 L (3.5-5.0) g/dL 12/11/24 Range/Units 11:47 WBC (4.50-10.00) 10*3/uL RBC (4.40-5.60) 10*6/uL Hgb (13.0-17.0) g/dL Hct (39.6-50.0) % MCV (80.0-97.0) fL MCH (27.0-32.0) pg Plt Count (140-440) 10*3/uL Immature Gran # (0.00-0.04) 10*3/uL Neutrophils # (1.80-7.70) 10*3/uL Lymphocytes # (0.90-5.00) 10*3/uL Monocytes # (0.20-1.00) 10*3/uL Eosinophils # (0.04-0.35) 10*3/uL Potassium (3.5-5.1) mmol/L Glucose (74-99) mg/dL POC Glucose (mg/dL) 229 H (70-110) mg/dL Calcium (8.4-10.2) mg/dL Total Bilirubin (0.2-1.3) mg/dL AST (17-59) U/L ALT (4-49) U/L Alkaline Phosphatase (38-126) U/L Total Protein (6.3-8.2) g/dL Albumin (3.5-5.0) g/dL Microbiology - Last 24 Hours (Table) 12/06/24 01:06 Blood Culture - Final Blood
--- NOTE | 2024-12-11 14:17 | P.PN ---
Subjective Progress Note Date: 12/11/24 Patient is a 49-year-old male with past medical history consistent of alcoholism, liver cirrhosis, esophageal varices with bands, GI bleed, recurrent abdominal ascites with previous paracentesis, chronic pancreatitis, polysubstance abuse, current tobacco dependence, COPD. His primary care provider is Dr. Meza. Patient brought in by EMS late last night and state respiratory distress. Patient was placed on BiPAP on arrival. Chest x-ray showing enlarged cardiac silhouette, diffuse bilateral lower lung field consolidations consistent with multilobar pneumonia. Tachypneic, tachycardic, acute leukocytosis, with low-grade fever. Patient received empiric dose azithromycin and Rocephin in the ED. CBC with a WBC count of 17.52, hemoglobin 11.9, platelets 144. CMP: Sodium 137, potassium 5.3, chloride 106, serum bicarb 21, BUN 19, creatinine 0.67, glucose 124. Lactic was elevated at 5.1 and is t rending down to 3.9. LFTs mildly elevated. Lipase 392, amylase 73. Troponin elevated at 0.543 possibly secondary to supply/demand mismatch. EKG: Sinus tachycardia, rate 110 bpm, no acute ST segment elevations or T wave inversions. NT proBNP was 3800. Most recent echocardiogram dating back to 2017, estimating a LV function of 55 to 60%. No significant valvular abnormalities were reported. I did receive from Dr. De La Fuente who was concerned that this patient may decompensate, and would be better monitored in the intensive care unit. Evaluating the patient in the emergency department he is on BiPAP with settings 12/6 and FiO2 of 70%. He is tachypneic breathing the mid 30s. Despite this, relatively calm and able to answer questioning. No signs of CO2 narcosis. He states that he went on a roland approximately 3 to 4 days ago. Previously, he drank half a gallon of liquor per day and now he is down to 1 pint per day. Serum alcohol level was 79 on arrival. He is unsure of exactly when, but developed increasingly worsening shortness of breath with associated cough and subjective fevers. Denies sick contacts. Denies recent travel. States he lives at home with his parents. Denies chest pain or lower extremity swelling. Most recent vital signs temperature 99.8 F, heart rate 103 bpm, blood pressure 133/83 mmHg, tachypneic, SpO2 reading 96% on bedside monitor. Patient was seen today on 12/07/2024, patient remains in the ICU, his overall clinical picture is slightly better today compared to yesterday, however his chest x-ray showed significant improvement in his interstitial infiltrate/edema. Patient did receive Lasix yesterday, and he will continue to receive Lasix t garry. His procalcitonin level was a bit elevated at 0.40, BNP was elevated on admission, echocardiogram is pending. Again considering the improvement on his chest x-ray overnight, this speaks in favor of more pulmonary edema than true pneumonia. Although I suspect that we are dealing with both/pulmonary edema and pneumonia considering his presentation and his clinical history. Patient remains on BiPAP 12/6/50%, he will be transitioned to a nasal cannula. Again echocardiogram is pending. Patient remains on Zosyn empirically. His IV fluids will be cut down to KVO, patient will receive another dose of Lasix today, and will plan to continue the CIWA protocol. WBC count is 23.97 hemoglobin is 12 electrolytes are normal renal profile is normal Seen today on 12/08/2024, remains in the ICU, remains on BiPAP, patient is developing worsening interstitial edema again today, his last dose of Lasix was yesterday, and a chest x-ray yesterday was dramatically more improved compared to the day before and compared to today. Hence I am recommending more diuretics for this patient, will recommend 40 mg IV push twice daily. Ejection fraction on his echocardiogram was 40 to 45%. Patient is on BiPAP 12/6/50%. Does not seem to be in any distress, he is quite comfortable, however he does have leukocytosis and he remains on antibiotics with WBC count of 23.7 hemoglobin is 11.3 electrolytes are normal renal profile is normal bicarb is normal. Troponin is elevated ammonia level is quite high at 100. Patient is on lactulose 30 g 3 times daily. Seen today on 12/09/2024, remains in the ICU as an overflow, presently on Airvo at 60 L flow and 60% FiO2. Intermittently on BiPAP 12/6/40%. Remains on Zosyn remains on diuretics remains on lactulose, patient is frequently refusing treatment including diuretics and lactulose. In the meantime patient is marginal at best. Chest x-ray showed slight improvement in his interstitial edema/infiltrates. WBC count is 19.6 hemoglobin is 11 electrolytes are normal renal profile is normal last ammonia level was also 100 yesterday, patient is refusing lactulose. Patient was seen today on 12/10/2024, remains in the ICU as an overflow, remains on Airvo at 60% FiO2 at 60 L flow, O2 sat is 96%, hence I recommended going to IV 15 L high flow nasal cannula instead since it seems to be difficult to titrate his FiO2 down on Airvo. Patient is on CIWA protocol, he is also on Ativan received 2 doses in the last 24 hours of Ativan, and is supposed to go to the medical floor for further treatment. Continues to refuse intermittently has lactulose and his Lasix. Chest x-ray continues show bibasilar interstitial infiltrates/edema. WBC count is 17 hemoglobin 11.1 electrolytes are normal except for low potassium of 3.0 renal profile is normal. Clinically the patient seems to be comfortable, not in distress, not anxious and not agitated. Hence we will still arrange for transfer to a medical surgical floor today. The patient is seen today December 11, 2024 in follow-up on the selective care unit. He was transferred out of the intensive care unit yesterday. He is awake and alert in no acute distress. He is currently on 10 L high flow nasal cannula. He is afebrile. Hemodynamically stable. Blood culture revealed no growth. White count 21.8. Hemoglobin 12.0. Platelets 81,000. Sodium 137. Potassium 4.1. Bicarb 30. BUN 20. Creatinine 0.75. Glucose 186. AST 80. ALT 59. Alk phos 184. Albumin 2.6. He remains on DuoNeb inhalations, Pulmicort and Perforomist inhalations, IV Solu-Medrol. He remains on Zosyn. Remains on IV d iuretics. Currently in a -2.5 L balance. Objective - Vital Signs Vital signs: Vital Signs Temp 97.7 F 12/11/24 12:13 Pulse 64 12/11/24 12:42 Resp 16 12/11/24 12:13 BP 113/62 12/11/24 12:13 Pulse Ox 96 12/11/24 12:13 FiO2 63 12/10/24 04:07 Intake & Output 12/10/24 12/11/24 12/11/24 18:59 06:59 18:59 Intake Total 442 600 Output Total 6115 238 3644 Balance -4376 -804 -969 Weight 94 kg Intake: IV 220 Lactated Ringers 1,000 ml 120 @ 10 mls/hr IV .Q24H [facility] Rx#:[id number] Piperacillin-Tazobactam 3 100 .375 gm In Sodium Chloride 0.9% 100 ml @ 25 mls/hr IVPB Q8HR [facility] Rx# :[id number] Oral 222 600 Output: Urine 3506 370 8836 Other: Voiding Method Urinal Urinal # Voids 3 1 - Exam GENERAL EXAM: Revealed 49-year-old male on 10 L high flow nasal cannula, comfortable in no acute distress. EYES: Normal reaction of pupils, equal size. NOSE: Clear with pink turbinates. THROAT: No erythema or exudates. NECK: No masses, no JVD. CHEST: No chest wall deformity. LUNGS: Crackles at the bases persist. Diminished CVS: S1 and S2 normal with no audible murmur, regular rhythm. No extra heart sounds ABDOMEN: No hepatosplenomegaly, active bowel sounds, no guarding or rigidity. SKIN: No rashes CENTRAL NERVOUS SYSTEM: Alert oriented x 3 no gross focal neurologic deficit EXTREMITIES: No clubbing, edema or cyanosis. - Labs CBC & Chem 7: 12/11/24 08:05 12/11/24 08:05 Labs: Abnormal Lab Results - Last 24 Hours (Table) 12/10/24 12/10/24 12/10/24 Range/Units 13:47 16:46 20:05 WBC (4.50-10.00) 10*3/uL RBC (4.40-5.60) 10*6/uL Hgb (13.0-17.0) g/dL Hct (39.6-50.0) % MCV (80.0-97.0) fL MCH (27.0-32.0) pg Plt Count (140-440) 10*3/uL Immature Gran # (0.00-0.04) 10*3/uL Neutrophils # (1.80-7.70) 10*3/uL Lymphocytes # (0.90-5.00) 10*3/uL Monocytes # (0.20-1.00) 10*3/uL Eosinophils # (0.04-0.35) 10*3/uL Potassium 3.2 L (3.5-5.1) mmol/L Glucose (74-99) mg/dL POC Glucose (mg/dL) 246 H 192 H (70-110) mg/dL Calcium (8.4-10.2) mg/dL Total Bilirubin (0.2-1.3) mg/dL AST (17-59) U/L ALT (4-49) U/L Alkaline Phosphatase (38-126) U/L Total Protein (6.3-8.2) g/dL Albumin (3.5-5.0) g/dL 12/11/24 12/11/24 12/11/24 Range/Units 06:25 08:05 08:05 WBC 21.82 H (4.50-10.00) 10*3/uL RBC 3.40 L (4.40-5.60) 10*6/uL Hgb 12.0 L (13.0-17.0) g/dL Hct 36.0 L (39.6-50.0) % MCV 105.9 H (80.0-97.0) fL MCH 35.3 H (27.0-32.0) pg Plt Count 81 L (140-440) 10*3/uL Immature Gran # 0.15 H (0.00-0.04) 10*3/uL Neutrophils # 20.23 H (1.80-7.70) 10*3/uL Lymphocytes # 0.35 L (0.90-5.00) 10*3/uL Monocytes # 1.06 H (0.20-1.00) 10*3/uL Eosinophils # 0.00 L (0.04-0.35) 10*3/uL Potassium (3.5-5.1) mmol/L Glucose 186 H (74-99) mg/dL POC Glucose (mg/dL) 232 H (70-110) mg/dL Calcium 8.3 L (8.4-10.2) mg/dL Total Bilirubin 2.0 H (0.2-1.3) mg/dL AST 80 H (17-59) U/L ALT 59 H (4-49) U/L Alkaline Phosphatase 184 H (38-126) U/L Total Protein 5.5 L (6.3-8.2) g/dL Albumin 2.6 L (3.5-5.0) g/dL 12/11/24 Range/Units 11:47 WBC (4.50-10.00) 10*3/uL RBC (4.40-5.60) 10*6/uL Hgb (13.0-17.0) g/dL Hct (39.6-50.0) % MCV (80.0-97.0) fL MCH (27.0-32.0) pg Plt Count (140-440) 10*3/uL Immature Gran # (0.00-0.04) 10*3/uL Neutrophils # (1.80-7.70) 10*3/uL Lymphocytes # (0.90-5.00) 10*3/uL Monocytes # (0.20-1.00) 10*3/uL Eosinophils # (0.04-0.35) 10*3/uL Potassium (3.5-5.1) mmol/L Glucose (74-99) mg/dL POC Glucose (mg/dL) 229 H (70-110) mg/dL Calcium (8.4-10.2) mg/dL Total Bilirubin (0.2-1.3) mg/dL AST (17-59) U/L ALT (4-49) U/L Alkaline Phosphatase (38-126) U/L Total Protein (6.3-8.2) g/dL Albumin (3.5-5.0) g/dL Microbiology - Last 24 Hours (Table) 12/06/24 01:06 Blood Culture - Final Blood Assessment and Plan Assessment: Acute hypoxemic respiratory failure, on BiPAP, secondary to above, chest x-ray showing cardiomegaly, diffuse bilateral lower lung field consolidations consistent congestive heart failure and possibly aspiration pneumonia. Acute COPD exacerbation Alcohol intoxication, serum alcohol level 79 Elevated ammonia level, on lactulose. Acute leukocytosis Lactic acidemia, improving Chronic pancreatitis Abdominal pain Elevated troponin, suspect supply/demand mismatch History of liver cirrhosis with esophageal varices and banding History of GI bleed History of recurrent abdominal ascites with previous paracentesis History of polysubstance abuse Chronic tobacco dependence Mild LV dysfunction most likely related to alcohol Plan: The patient was seen and evaluated Labs and medications reviewed Currently on 10 L high flow nasal cannula Remains on IV diuretics Currently net -2.5 L balance Repeat chest x-ray in a.m. Titrate down the FiO2 as tolerated Continue Zosyn Continue DuoNeb inhalations Continue IV Solu-Medrol Titrate down the FiO2 as tolerated Increase his activity as tolerated We will continue to follow I have personally seen and examined the patient, performed the documentation and the assessment and plan as written. Number of minutes spent on the visit: 10 Dictation was produced using [employer] dictation software. Please excuse any grammatical, word or spelling errors.
--- NOTE | 2024-12-11 15:02 | P.PN ---
Subjective Progress Note Date: 12/11/24 H&P Date: 12/06/24 Chief Complaint: Alcohol intoxication, respiratory failure This is a 49-year-old male with past medical history significant for polysubs tance abuse including alcohol, cocaine heroin marijuana, pancreatitis, chronic alcoholic hepatitis ,ascites with multiple paracentesis, esophageal varices with multiple banding's, chronic anemia, ventral hernia repair, bipolar, depression, anxiety, multiple other medical issues transferred to the ER via EMS with complaints of progressive dyspnea over the last couple days,accompanied by cough.endorses heavy alcohol use of 1 pint per day. On admission tachypneic, tachycardic, venous blood gases reported pH 7.45 [id number], bicarb 21, Tmax 99.8, WBC 17.52 lactic acid 5.1 decreased to 2.1 with IV fluid hydration. Chest x-ray reporting bilateral lower lung field consolidations consistent with multilobar pneumonia. Procalcitonin within normal limits, 0.40. ProBNP 3800, Hemoglobin 11.9, platelets 144, INR 1.1. Troponin 0.543, 0.623, EKG reporting sinus tachycardia, prior echo 2016 reporting normal LV function, EF 55 to 60% with no significant valvular abnormalities/repeat echo ordered ordered. T. bili 2.6, AST 165, AST 44, alk phos 218. Amylase 73, lipase 392. Serum alcohol 79. maintained on BiPAP 60%, Zosyn, nebulized bronchodilators, IV steroids, Pulmicort and CIWA protocol. Recent CIWA score 8. 12/07/2024 remains BiPAP dependent, FiO2 50%. Continues on Lasix-chest x-ray yesterday reported interstitial infiltrates with lower lung airspace disease improved.echo pending. Renal function stable.positive diet intake, able to be off BiPAP for less than 10 minutes to facilitate eating. Staff reports patient cooperative but impulsive, with significant anxiety. CIWA score during the night 24 currently ranging 6-9. In the last 24 hours has received 9 mg of Ativan per CIWA protocol. Viral studies negative, afebrile, WBC increased to 23.97. December 09, 2024: Patient is reevaluated. He remains in intensive care unit as overflow. He remains on Airvo 60 L/min with an FiO2 of 63%. He is undergoing a breathing treatment while I am seeing him today. He indicates he is feeling much better. He complains of some minor tremors that have improved since arrival. He also complains of some mild chest pain. No nausea or vomiting no diarrhea or constipation. He was originally admitted for bilateral pneumonia, suspected for aspiration. He has significant history of alcoholism along with alcoholic hepatitis and chronic pancreatitis. He has known esophageal varices as well. Signs this morning are stable blood pressure controlled. Labs show WBC count of 19.65 hemoglobin is 11 MCV 106.3 platelets are 87. Chemistries are essentially normal with exception of glucose which has been slightly elevated. Blood cultures are negative. Sickle care notes reviewed remains on Zosyn and diuretics with lactulose as well. December 10, 2024: Patient continues to complain of pain abdomen consistent with his chronic pancreatitis. Changed to tramadol and morphine was discontinued. We discussed why that was as my concerns with respiratory suppression and his pneumonia. He indicates tramadol not help and would like [place] which he does take at home. He is currently on high flow oxygen via nasal cannula 15 L/min. Staff indicate he is overall improved. He received lorazepam last night twice once this morning. Pulmonology is following. He will go to the stepdown unit soon. He remains on Zosyn for antibiotic coverage for his pneumonia. He has albuterol and budesonide breathing treatments along with methylprednisolone. He continues on pantoprazole for GERD. Diazepam and chlordiazepoxide for CIWA protocol scales. 12/11/2024 chest x-ray yesterday reported slightly improved reticulonodular infiltrates.maintaining O2 sats in the high 90s on 10 L high flow nasal cannula. Continues on Zosyn. WBC 21.8, platelets 81. Afebrile. Continues on CIWA protocol, recent CIWA score 10. Evaluated by cardiology, recommendations noted. Objective - Vital Signs Vital signs: Vital Signs Temp 97.7 F 12/11/24 12:13 Pulse 64 12/11/24 12:42 Resp 16 12/11/24 12:13 BP 113/62 12/11/24 12:13 Pulse Ox 96 12/11/24 12:13 FiO2 63 12/10/24 04:07 Intake & Output 12/10/24 12/11/24 12/11/24 18:59 06:59 18:59 Intake Total 442 600 Output Total 4695 986 0065 Balance -4538 -925 -875 Weight 94 kg Intake: IV 220 Lactated Ringers 1,000 ml 120 @ 10 mls/hr IV .Q24H [facility] Rx#:[id number] Piperacillin-Tazobactam 3 100 .375 gm In Sodium Chloride 0.9% 100 ml @ 25 mls/hr IVPB Q8HR [facility] Rx# :[id number] Oral 222 600 Output: Urine 6315 955 [id number] Other: Voiding Method Urinal Urinal Urinal # Voids 3 1 - Exam General: alert and oriented x 2, laying in bed. no acute distress. HEENT: [Normocephalic, atraumatic ,PERRL. EOMI. sclera nonicteric .no erythema or exudate.] Neck: Supple, no JVD Cardiac: [Heart regular in rate and rhythm. No S3. No S4. No clicks, rubs. No murmur.] Lungs: Unlabored, equal air entry, fine basilar crackles. Abdomen: Soft, nondistended,nontender,no guarding, positive bowel sounds. Extremes: [No edema no cyanosis no claudication normal pulses] Skin: No rash. warm and dry. Neurologic: CN II - XII grossly intact.] - Labs CBC & Chem 7: 12/11/24 08:05 12/11/24 08:05 Labs: Abnormal Lab Results - Last 24 Hours (Table) 12/10/24 12/10/24 12/11/24 Range/Units 16:46 20:05 06:25 WBC (4.50-10.00) 10*3/uL RBC (4.40-5.60) 10*6/uL Hgb (13.0-17.0) g/dL Hct (39.6-50.0) % MCV (80.0-97.0) fL MCH (27.0-32.0) pg Plt Count (140-440) 10*3/uL Immature Gran # (0.00-0.04) 10*3/uL Neutrophils # (1.80-7.70) 10*3/uL Lymphocytes # (0.90-5.00) 10*3/uL Monocytes # (0.20-1.00) 10*3/uL Eosinophils # (0.04-0.35) 10*3/uL Glucose (74-99) mg/dL POC Glucose (mg/dL) 246 H 192 H 232 H (70-110) mg/dL Calcium (8.4-10.2) mg/dL Total Bilirubin (0.2-1.3) mg/dL AST (17-59) U/L ALT (4-49) U/L Alkaline Phosphatase (38-126) U/L Total Protein (6.3-8.2) g/dL Albumin (3.5-5.0) g/dL 12/11/24 12/11/24 12/11/24 Range/Units 08:05 08:05 11:47 WBC 21.82 H (4.50-10.00) 10*3/uL RBC 3.40 L (4.40-5.60) 10*6/uL Hgb 12.0 L (13.0-17.0) g/dL Hct 36.0 L (39.6-50.0) % MCV 105.9 H (80.0-97.0) fL MCH 35.3 H (27.0-32.0) pg Plt Count 81 L (140-440) 10*3/uL Immature Gran # 0.15 H (0.00-0.04) 10*3/uL Neutrophils # 20.23 H (1.80-7.70) 10*3/uL Lymphocytes # 0.35 L (0.90-5.00) 10*3/uL Monocytes # 1.06 H (0.20-1.00) 10*3/uL Eosinophils # 0.00 L (0.04-0.35) 10*3/uL Glucose 186 H (74-99) mg/dL POC Glucose (mg/dL) 229 H (70-110) mg/dL Calcium 8.3 L (8.4-10.2) mg/dL Total Bilirubin 2.0 H (0.2-1.3) mg/dL AST 80 H (17-59) U/L ALT 59 H (4-49) U/L Alkaline Phosphatase 184 H (38-126) U/L Total Protein 5.5 L (6.3-8.2) g/dL Albumin 2.6 L (3.5-5.0) g/dL Microbiology - Last 24 Hours (Table) 12/06/24 01:06 Blood Culture - Final Blood Assessment and Plan Assessment: Alcohol intoxication, serum level 79 Acute COPD exacerbation Possible acute CHF exacerbation, EF 40 to 45% Acute hypoxic respiratory failure, BiPAP dependent, secondary to all the above ,multilobar pneumonia, possible aspiration Lactic acidosis, improving with IV fluid hydration Elevated troponins, NSTEMI suspect typeII related to mismatch supply and demand,cardiology following Hyperammonemia Chronic abdominal pain Chronic pancreatitis History of esophageal varices with multiple bandings Elevated T. bili, LFTs in a patient with history of alcoholic cirrhosis of liver, chronic alcoholic hepatitis Portal hypertension History of ascites with multiple paracentesis Alcohol dependence History of polysubstance abuse including cocaine, heroin, marijuana Noncompliance Chronic alcoholic hepatitis Chronic nicotine dependence History of nephrolithiasis, chronic anemia No code Plan: Continue on current medication regime ,monitoring and symptomatic treatment. Aggressive pulmonary toileting with nebulized bronchodilators, Pulmicort, IV steroids, Lasix and empiric antibiotics. WA protocol. Patient had been declining diuretics as well as lactulose -lactulose and diuretics reinforced. Alcohol abstinence and nicotine cessation reinforced. Increase activity as tolerated. The impression and plan of care has been dictated as directed. : I performed a history and examination of this patient, discussed the same with the dictator. I agree with the dictator's note ,documented as a scribe. Any additional findings or plans will be noted.
[2024-12-11 20:16] LABS: Glucose,Whole Blood 261 mg/dL (70-110)
[2024-12-12 06:27] LABS: Glucose,Whole Blood 210 mg/dL (70-110)
--- NOTE | 2024-12-12 07:07 | XR ---
EXAMINATION TYPE: XR chest 1V portable DATE OF EXAM: 12/12/2024 6:49 AM COMPARISON: Multiple radiographs, with the most recent on 12/10/2024 TECHNIQUE: XR chest 1V portable Portable AP radiograph of the chest. CLINICAL INDICATION:Male, 49 years old with history of CHF, pneumonia; FINDINGS: Lungs/Pleura: Bibasilar patchy airspace opacities redemonstrated. Diffuse interstitial prominence red emonstrated. No pleural effusion or pneumothorax. Heart/mediastinum: Cardiomediastinal silhouette is enlarged and stable. Musculoskeletal: No acute osseous pathology. IMPRESSION: Cardiomegaly with diffuse interstitial prominence redemonstrated. Correlate for CHF exacerbation. Add itionally there are bibasilar patchy airspace opacities which may represent infiltrates versus atelec tasis. [facility], , 12/12/2024 7:05 AM
[2024-12-12] MEDS: FUROSEMIDE 40 MG TAB PO SCH (09:42)
[2024-12-12] MEDS: INSULIN GLARGINE (LANTUS) 100 UNIT/ML SYR SQ SCH (09:42)
[2024-12-12 11:48] LABS: Glucose,Whole Blood 169 mg/dL (70-110)
--- NOTE | 2024-12-12 12:45 | P.PN ---
Subjective Progress Note Date: 12/12/24 HISTORY OF PRESENTING ILLNESS This is a pleasant 49-year-old with past medical history significant for al coholism, liver cirrhosis, esophageal varices with bands, GI bleed, ascites with previous paracentesis as well as pancreatitis, previous heavy alcohol use, tobacco abuse, COPD. 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 Patient states he had RSV along with his mother approximately a month ago and then more recently has been having increased cough and fevers and chills over the last 3 to 4 days. He also has been having some chest tightness and pressure which has been off-and-on over the last few days. He states he has been drinking somewhat however not as heavy as he previously did, previously drinking half of a gallon daily. He is still smoking. He denies any marijuana or cocaine. Denies any family history of coronary artery disease. He was found to have maximum temperature 99.8. Chest x-ray shows bilateral infiltrates. He was placed on BiPAP and currently feels somewhat better in terms of her shortness of breath. Patient does have advanced directive per nursing with patient being DNR Blood work shows white blood cell count 17, hemoglobin 11.9, creatinine 0.6, lactic acid 5.1, troponin 0.54, 0.62. proBNP 3800, albumin 2.9, lipase 392. Shows normal sinus rhythm, normal axis, minimal 0.[address] depressions in the inferior leads. 12/07 Patient seen and examined. Patient still complaining of some atypical epigastric and chest pain somewhat reproducible and somewhat with deep inspiration and cough. Echocardiogram pending. Still remains on BiPAP. 12/08 Patient seen and examined. Patient still short of breath on BiPAP. He is still having intermittent chest pain. He states it is currently an 8 out of 10. Per nursing usually Ativan and morphine will help with his chest pain. 12/09/2024 Seen and examined at bedside this a.m. Still on high flow nasal cannula oxygen BP 123/73, heart rate 62 bpm 12/10/2024 Been transferred out of ICU today. On 4 to 5 L of nasal cannula supplemental oxygen Hemodynamically stable. 12/11/2024 Patient seen and examined on the cardiac stepdown unit. Blood pressure 109/63, heart rate 60, pulse ox 95% on high flow nasal cannula 10 L. Repeat blood work reveals WBC 21, hemoglobin 12, creatinine 0.75. Liver function tests are elevated. 12/12/2024 Patient seen and examined. Lungs are clear, he is feeling much better today. No lower extremity edema. He has been maintained on oral Lasix. Blood pressure 123/65, heart rate in the 50s to 70s, pulse ox 94% on 5 L high flow nasal cannula. PHYSICAL EXAMINATION Vital signs reviewed. CONSTITUTIONAL: No apparent distress. HEENT: Head is normocephalic. Pupils are equal, round. Sclerae anicteric. Mucous membranes of the mouth are moist. No JVD. No carotid bruit. CHEST EXAMINATION: Lungs are clear to auscultation. No chest wall tenderness is noted on palpation or with deep breathing. HEART EXAMINATION: Regular rate and rhythm. S1, S2 heard. No murmurs, gallops or rub. ABDOMEN: Soft, nontender. Positive bowel sounds. EXTREMITIES: 2+ peripheral pulses, no lower extremity edema and no calf tenderness. NEUROLOGIC EXAMINATION: Patient is awake, alert and oriented x3. ASSESSMENT Acute on chronic respiratory failure appears mainly related to pneumonia Non-STEMI likely type II mechanism related to pneumonia with significant hypoxia and lactic acidosis Precordial chest pain, may be related to pneumonia however rule out cardiac source COPD exacerbation Hypertension Alcohol abuse Previous liver cirrhosis currently appears compensated History of chronic pancreatitis Medical noncompliance Tobacco abuse Mild cardiomyopathy ejection fraction 40 to 45% PLAN Majority of presentation appears consistent with pneumonia and respiratory failure related to pneumonia. Non-STEMI likely type II mechanism however he is having some chest discomfort. Chest discomfort appears more musculoskeletal, pleuritic and related to pneumonia however monitor closely for any type I non-STEMI. Continue current cardiac medications: Aspirin 81 mg daily, atenolol 25 mg daily, Lasix 40 mg daily, losartan 25 mg daily Echo showing ejection fraction 40 to 45% with paradoxical septal motion. May be more long-term cardiomyopathy from his alcohol use and we will attempt to track down prior echoes. Continue conservative management with patient not being a good interventional candidate with history of varices and GI bleeding in the past. Nurse practitioner note has been reviewed, I agree with documented findings and plan of care. Patient was seen and examined. Objective - Vital Signs Vital signs: Vital Signs Temp 97.5 F L 12/12/24 07:49 Pulse 71 12/12/24 07:49 Resp 20 12/12/24 07:49 BP 111/61 12/12/24 07:49 Pulse Ox 95 12/12/24 07:49 FiO2 63 12/10/24 04:07 Intake & Output 12/11/24 12/12/24 12/12/24 18:59 06:59 18:59 Intake Total 1250 777 Output Total 1775 850 600 Balance -525 -850 177 Weight 95.1 kg Intake: Oral 1250 777 Output: Urine 1770 850 600 Other: Voiding Method Urinal Urinal # Voids 1 - Labs CBC & Chem 7: 12/11/24 08:05 12/11/24 08:05 Labs: Abnormal Lab Results - Last 24 Hours (Table) 12/11/24 12/11/24 12/11/24 Range/Units 08:05 08:05 11:47 WBC 21.82 H (4.50-10.00) 10*3/uL RBC 3.40 L (4.40-5.60) 10*6/uL Hgb 12.0 L (13.0-17.0) g/dL Hct 36.0 L (39.6-50.0) % MCV 105.9 H (80.0-97.0) fL MCH 35.3 H (27.0-32.0) pg Plt Count 81 L (140-440) 10*3/uL Immature Gran # 0.15 H (0.00-0.04) 10*3/uL Neutrophils # 20.23 H (1.80-7.70) 10*3/uL Lymphocytes # 0.35 L (0.90-5.00) 10*3/uL Monocytes # 1.06 H (0.20-1.00) 10*3/uL Eosinophils # 0.00 L (0.04-0.35) 10*3/uL Glucose 186 H (74-99) mg/dL POC Glucose (mg/dL) 229 H (70-110) mg/dL Calcium 8.3 L (8.4-10.2) mg/dL Total Bilirubin 2.0 H (0.2-1.3) mg/dL AST 80 H (17-59) U/L ALT 59 H (4-49) U/L Alkaline Phosphatase 184 H (38-126) U/L Total Protein 5.5 L (6.3-8.2) g/dL Albumin 2.6 L (3.5-5.0) g/dL 12/11/24 12/12/24 Range/Units 20:15 06:25 WBC (4.50-10.00) 10*3/uL RBC (4.40-5.60) 10*6/uL Hgb (13.0-17.0) g/dL Hct (39.6-50.0) % MCV (80.0-97.0) fL MCH (27.0-32.0) pg Plt Count (140-440) 10*3/uL Immature Gran # (0.00-0.04) 10*3/uL Neutrophils # (1.80-7.70) 10*3/uL Lymphocytes # (0.90-5.00) 10*3/uL Monocytes # (0.20-1.00) 10*3/uL Eosinophils # (0.04-0.35) 10*3/uL Glucose (74-99) mg/dL POC Glucose (mg/dL) 261 H 210 H (70-110) mg/dL Calcium (8.4-10.2) mg/dL Total Bilirubin (0.2-1.3) mg/dL AST (17-59) U/L ALT (4-49) U/L Alkaline Phosphatase (38-126) U/L Total Protein (6.3-8.2) g/dL Albumin (3.5-5.0) g/dL Microbiology - Last 24 Hours (Table) 12/06/24 01:06 Blood Culture - Final Blood
--- NOTE | 2024-12-12 13:46 | P.PN ---
Subjective Progress Note Date: 12/12/24 Principal diagnosis: Pneumonia. Patient is a 49-year-old male with past medical history consistent of alcoholism, liver cirrhosis, esophageal varices with bands, GI bleed, recurrent abdominal ascites with previous paracentesis, chronic pancreatitis, polysubstance abuse, current tobacco dependence, COPD. His primary care provider is Dr. Meza. Patient brought in by EMS late last night and state respiratory distress. Patient was placed on BiPAP on arrival. Chest x-ray tess wing enlarged cardiac silhouette, diffuse bilateral lower lung field consolidations consistent with multilobar pneumonia. Tachypneic, tachycardic, acute leukocytosis, with low-grade fever. Patient received empiric dose azithromycin and Rocephin in the ED. CBC with a WBC count of 17.52, hemoglobin 11.9, platelets 144. CMP: Sodium 137, potassium 5.3, chloride 106, serum bicarb 21, BUN 19, creatinine 0.67, glucose 124. Lactic was elevated at 5.1 and is trending down to 3.9. LFTs mildly elevated. Lipase 392, amylase 73. Troponin elevated at 0.543 possibly secondary to supply/demand mismatch. EKG: Sinus tachycardia, rate 110 bpm, no acute ST segment elevations or T wave inversions. NT proBNP was 3800. Most recent echocardiogram dating back to 2017, estimating a LV function of 55 to 60%. No significant valvular abnormalities were reported. I did receive from Dr. De La Fuente who was concerned that this patient may decompensate, and would be better monitored in the intensive care unit. Evaluating the patient in the emergency department he is on BiPAP with settings 12/6 and FiO2 of 70%. He is tachypneic breathing the mid 30s. Despite this, relatively calm and able to answer questioning. No signs of CO2 narcosis. He states that he went on a roland approximately 3 to 4 days ago. Previously, he drank half a gallon of liquor per day and now he is down to 1 pint per day. Serum alcohol level was 79 on arrival. He is unsure of exactly when, but developed increasingly worsening shortness of breath with associated cough and subjective fevers. Denies sick contacts. Denies recent travel. States he lives at home with his parents. Denies chest pain or lower extremity swelling. Most recent vital signs temperature 99.8 F, heart rate 103 bpm, blood pressure 133/83 mmHg, tachypneic, SpO2 reading 96% on bedside monitor. Patient was seen today on 12/07/2024, patient remains in the ICU, his overall clinical picture is slightly better today compared to yesterday, however his chest x-ray showed significant improvement in his interstitial infiltrate/edema. Patient did receive Lasix yesterday, and he will continue to receive Lasix today. His procalcitonin level was a bit elevated at 0.40, BNP was elevated on admission, echocardiogram is pending. Again considering the improvement on his chest x-ray overnight, this speaks in favor of more pulmonary edema than true pneumonia. Although I suspect that we are dealing with both/pulmonary edema and pneumonia considering his presentation and his clinical history. Patient remains on BiPAP 12/6/50%, he will be transitioned to a nasal cannula. Again echocardiogram is pending. Patient remains on Zosyn empirically. His IV fluids will be cut down to KVO, patient will receive another dose of Lasix today, and will plan to continue the CIWA protocol. WBC count is 23.97 hemoglobin is 12 electrolytes are normal renal profile is normal Seen today on 12/08/2024, remains in the ICU, remains on BiPAP, patient is developing worsening interstitial edema again today, his last dose of Lasix was yesterday, and a chest x-ray yesterday was dramatically more improved compared to the day before and compared to today. Hence I am recommending more diuretics for this patient, will recommend 40 mg IV push twice daily. Ejection fraction on his echocardiogram was 40 to 45%. Patient is on BiPAP 12/6/50%. Does not seem to be in any distress, he is quite comfortable, however he does have leukocytosis and he remains on antibiotics with WBC count of 23.7 hemoglobin is 11.3 electrolytes are normal renal profile is normal bicarb is normal. Troponin is elevated ammonia level is quite high at 100. Patient is on lactulose 30 g 3 times daily. Seen today on 12/09/2024, remains in the ICU as an overflow, presently on Airvo at 60 L flow and 60% FiO2. Intermittently on BiPAP 12/6/40%. Remains on Zosyn remains on diuretics remains on lactulose, patient is frequently refusing treatment including diuretics and lactulose. In the meantime patient is marginal at best. Chest x-ray showed slight improvement in his interstitial e nishant/infiltrates. WBC count is 19.6 hemoglobin is 11 electrolytes are normal renal profile is normal last ammonia level was also 100 yesterday, patient is refusing lactulose. Patient was seen today on 12/10/2024, remains in the ICU as an overflow, remains on Airvo at 60% FiO2 at 60 L flow, O2 sat is 96%, hence I recommended going to IV 15 L high flow nasal cannula instead since it seems to be difficult to titrate his FiO2 down on Airvo. Patient is on CIWA protocol, he is also on Ativan received 2 doses in the last 24 hours of Ativan, and is supposed to go to the medical floor for further treatment. Continues to refuse intermittently has lactulose and his Lasix. Chest x-ray continues show bibasilar interstitial infiltrates/edema. WBC count is 17 hemoglobin 11.1 electrolytes are normal except for low potassium of 3.0 renal profile is normal. Clinically the patient seems to be comfortable, not in distress, not anxious and not agitated. Hence we will still arrange for transfer to a medical surgical floor today. The patient is seen today December 11, 2024 in follow-up on the selective care unit. He was transferred out of the intensive care unit yesterday. He is awake and alert in no acute distress. He is currently on 10 L high flow nasal cannula. He is afebrile. Hemodynamically stable. Blood culture revealed no growth. White count 21.8. Hemoglobin 12.0. Platelets 81,000. Sodium 137. Potassium 4.1. Bicarb 30. BUN 20. Creatinine 0.75. Glucose 186. AST 80. ALT 59. Alk phos 184. Albumin 2.6. He remains on DuoNeb inhalations, Pulmicort and Perforomist inhalations, IV Solu-Medrol. He remains on Zosyn. Remains on IV diuretics. Currently in a -2.5 L balance. Progress note dated December 12, 2024. The patient is seen today in room 380. The patient is laying in bed. No distress. He is awake and alert. He is on 5 L nasal cannula. He is receiving IV Zosyn. In the past, the patient has been a heavy smoker, and heavy drinker of alcohol. He apparently did drugs in the past, but not now. His current labs include a glucose of 169. Blood cultures are negative. Chest x-ray continues to show cardiomegaly, with diffuse interstitial abnormalities consistent with fluid overload, versus atelectasis or atypical infection. Objective - Vital Signs Vital signs: Vital Signs Temp 97.5 F L 12/12/24 11:40 Pulse 64 12/12/24 11:52 Resp 18 12/12/24 11:40 BP 123/65 12/12/24 11:40 Pulse Ox 94 L 12/12/24 11:40 FiO2 63 12/10/24 04:07 Intake & Output 12/11/24 12/12/24 12/12/24 18:59 06:59 18:59 Intake Total 1250 777 Output Total 1775 850 825 Balance -525 -850 -48 Weight 95.1 kg Intake: Oral 1250 777 Output: Urine 1775 850 825 Other: Voiding Method Urinal Urinal Urinal # Voids 1 - Exam No acute distress, oriented 3. HEENT examination is grossly unremarkable. Mucous membranes are moist. No oral lesions. Neck supple. Full range of motion. No adenopathy thyromegaly or neck vein distention. Cardiovascular examination reveals regular rhythm rate. S1-S2 normal. No S3 or S4. No discernible murmur noted. Lungs reveal crackles at both bases. There are no wheezes or rhonchi. Breath sounds are equal bilaterally. Abdomen soft bowel sounds are heard. No masses or tenderness. Extremities are intact. No cyanosis clubbing or edema. Skin is without rash or lesion. Neurologic examination is brief but nonfocal. - Labs CBC & Chem 7: 12/11/24 08:05 12/11/24 08:05 Labs: Abnormal Lab Results - Last 24 Hours (Table) 12/11/24 12/12/24 12/12/24 Range/Units 20:15 06:25 11:45 POC Glucose (mg/dL) 261 H 210 H 169 H (70-110) mg/dL Microbiology - Last 24 Hours (Table) 12/06/24 01:06 Blood Culture - Final Blood Assessment and Plan Assessment: Acute hypoxemic respiratory failure, secondary to congestive heart failure and possibly aspiration pneumonia. Acute COPD exacerbation. Alcohol intoxication, serum alcohol level 79. Elevated ammonia level, on lactulose. Acute leukocytosis. Lactic acidemia, improving. Chronic pancreatitis. Abdominal pain. Elevated troponin, suspect supply/demand mismatch. History of liver cirrhosis with esophageal varices and banding. History of GI bleed. History of recurrent abdominal ascites with previous paracentesis. History of polysubstance abuse. Chronic tobacco dependence. Mild LV dysfunction most likely related to alcohol. Plan: Plan dated December 12, 2024. The patient continues on oxygen, at 5 L by nasal cannula. He also continues on IV Zosyn. We took the time to speak to his sister, who is a respiratory therapist at this hospital. Labs, x-rays, and medications are reviewed. According to his sister, the patient is essentially homeless. He is a DO NOT RESUSCITATE patient, even though he is only 49 years of age. The patient drinks heavily and smokes heavily. We will continue to follow make recommendations along the way. Prognosis is poor. Dictation was produced using [employer] dictation software. Please excuse any grammatical, word or spelling errors. Time with Patient: Less than 30
--- NOTE | 2024-12-12 15:37 | P.DS ---
Providers Date of admission: 12/06/24 01:51 Expected date of discharge: 12/12/24 Attending physician: James Meza Consults: 12/06/24 01:48 Consult Physician Routine Consulting Provider: Gabi Thorne Consult Reason/Comments: Pneumonia. Sepsis Do you want consulting provider notified?: Yes 12/06/24 07:19 Consult Physician Urgent Consulting Provider: Oriana Meneses Consult Reason/Comments: elevated troponin Do you want consulting provider notified?: Yes Primary care physician: [facility] Course: Final Diagnoses: Alcohol intoxication, serum level 79 Acute COPD exacerbation Possible acute CHF exacerbation, EF 40 to 45% with paradoxical septal motion. May be more long-term cardiomyopathy from his alcohol use. Conservative management. Acute hypoxic respiratory failure, BiPAP dependent, secondary to all the above ,multilobar pneumonia, possible aspiration Lactic acidosis, improving with IV fluid hydration Elevated troponins, NSTEMI suspect typeII related to mismatch supply and demand,cardiology following Hyperammonemia Alcoholic encephalopathy Chronic abdominal pain Chronic pancreatitis History of esophageal varices with multiple bandings Elevated T. bili, LFTs in a patient with history of alcoholic cirrhosis of liver, chronic alcoholic hepatitis Portal hypertension History of ascites with multiple paracentesis Alcohol dependence History of polysubstance abuse including cocaine, heroin, marijuana Noncompliance Chronic alcoholic hepatitis Chronic nicotine dependence History of nephrolithiasis, chronic anemia History of bipolar disorder No code Hospital course: This is a 49-year-old male with past medical history significant for polysubstance abuse including alcohol, cocaine heroin marijuana, pancreatitis, chronic alcoholic hepatitis ,ascites with multiple paracentesis, esophageal varices with multiple banding's, chronic anemia, ventral hernia repair, bipolar, depression, anxiety, multiple other medical issues transferred to the ER via EMS with complaints of progressive dyspnea over the last couple days,accompanied by cough.endorses heavy alcohol use of 1 pint per day. On admission tachypneic, tachycardic, venous blood gases reported pH 7.45 [id number], bicarb 21, Tmax 99.8, WBC 17.52 lactic acid 5.1 decreased to 2.1 with IV fluid hydration. Chest x-ray reporting bilateral lower lung field consolidations consistent with multilobar pneumonia. Procalcitonin within normal limits, 0.40. ProBNP 3800, Hemoglobin 11.9, platelets 144, INR 1.1. Troponin 0.543, 0.623, EKG reporting sinus tachycardia, prior echo 2017 reporting normal LV function, EF 55 to 60% with no significant valvular abnormalities/repeat echo ordered ordered. T. bili 2.6, AST 165, AST 44, alk phos 218. Amylase 73, lipase 392. Serum alcohol 79. maintained on BiPAP 60%, Zosyn, nebulized bronchodilators, IV steroids, Pulmicort and CIWA protocol. Recent CIWA score 8. 12/07/2024 remains BiPAP dependent, FiO2 50%. Continues on Lasix-chest x-ray yesterday reported interstitial infiltrates with lower lung airspace disease improved.echo pending. Renal function stable.positive diet intake, able to be off BiPAP for less than 10 minutes to facilitate eating. Staff reports patient cooperative but impulsive, with significant anxiety. CIWA score during the night 24 currently ranging 6-9. In the last 24 hours has received 9 mg of Ativan per CIWA protocol. Viral studies negative, afebrile, WBC increased to 23.97. December 09, 2024: Patient is reevaluated. He remains in intensive care unit as overflow. He remains on Airvo 60 L/min with an FiO2 of 63%. He is undergoing a breathing treatment while I am seeing him today. He indicates he is feeling much better. He complains of some minor tremors that have improved since arrival. He also complains of some mild chest pain. No nausea or vomiting no diarrhea or constipation. He was originally admitted for bilateral pneumonia, suspected for aspiration. He has significant history of alcoholism along with alcoholic hepatitis and chronic pancreatitis. He has known esophageal varices as well. Signs this morning are stable blood pressure controlled. Labs show WBC count of 19.65 hemoglobin is 11 MCV 106.3 platelets are 87. Chemistries are essentially normal with exception of glucose which has been slightly elevated. Blood cultures are negative. Sickle care notes reviewed remains on Zosyn and diuretics with lactulose as well. December 10, 2024: Patient continues to complain of pain abdomen consistent with his chronic pancreatitis. Changed to tramadol and morphine was discontinued. We discussed why that was as my concerns with respiratory suppression and his pneumonia. He indicates tramadol not help and would like [place] which he does take at home. He is currently on high flow oxygen via nasal cannula 15 L/min. Staff indicate he is overall improved. He received lorazepam last night twice once this morning. Pulmonology is following. He will go to the stepdown unit soon. He remains on Zosyn for antibiotic coverage for his pneumonia. He has albuterol and budesonide breathing treatments along with methylprednisolone. He continues on pantoprazole for GERD. Diazepam and chlordiazepoxide for CIWA protocol scales. 12/11/2024 chest x-ray yesterday reported slightly improved reticulonodular infiltrates.maintaining O2 sats in the high 90s on 10 L high flow nasal cannula. Continues on Zosyn. WBC 21.8, platelets 81. Afebrile. Continues on CIWA protocol, recent CIWA score 10. Evaluated by cardiology, recommendations noted. Significant clinical improvement. Better air exchange today, with nasal cannula FiO2 weaned down to 5 L high flow nasal cannula, maintaining O2 sats in the 90s. Patient will be discharged to subacute rehab, pending PT/OT evaluation, final DC recommendations and clearance as per pulmonary. Evaluated by cardiology regarding chest discomfort; further evaluation, appears more musculoskeletal, pleuritic in nature related to his respiratory function, recommending conservative management. Evaluated by psychiatry today regarding competency, reporting "Patient does not have a general decision-making capacity at this time is unable to reasoned through and communicate/appreciate the risk benefits and alternatives to treatment. Patient is unable to care for himself and understand his physical illnesses and limitations. Would advise petitioning for guardianship.-Delirium precautions recommended with patient including - avoiding use of narcotics and INTERNAL CONTROL CONSULTANT sedatives, limit anticholinergic medications when possible, frequent re- orientation, minimize use of restraints, open window shades during the day and close them at night-Would recommend the following medication changes/additions: Please attempt to minimize opiates, benzodiazepines, steroids as much as possible as these will likely precipitate confusion or episodes of delirium. Zyprexa 2.5 mg scheduled at nighttime with 2.5 mg twice daily as needed for psychosis/delirium/agitation.slag production worker to provide patient with outpatient mental health/psychiatry resources for appropriate follow up upon discharge". Patient has been accepted at [facility] subacute rehab and will be discharged today in a stable condition with guarded prognosis. The impression and plan of care has been dictated as directed. : I performed a history and examination of this patient, discussed the same with the dictator. I agree with the dictator's note ,documented as a scribe. Any additional findings or plans will be noted. The impression and plan of care has been dictated as directed. : I performed a history and examination of this patient, discussed the same with the dictator. I agree with the dictator's note ,documented as a scribe. Any additional findings or plans will be noted. Patient Condition at Discharge: Stable Plan - Discharge Summary Discharge Rx Participant: No New Discharge Prescriptions: New Lactulose [Cephulac] 30 gm PO TID ml Ipratropium-Albuterol Nebulize [Duoneb 0.5 mg-3 mg/3 ml Soln] 3 ml INHALATION RT-QID #120 each OLANZapine [ZyPREXA] 2.5 mg PO BID PRN 3 Days #6 tab PRN Reason: agitation/delirium Aspirin 81 mg PO DAILY tab Losartan [Cozaar] 25 mg PO DAILY #30 tab Furosemide [Lasix] 40 mg PO DAILY tab predniSONE 10 mg PO DIRECTED #30 tab OLANZapine [ZyPREXA] 2.5 mg PO HS #3 tab traMADol HCl [Ultram] 50 mg PO Q6HR PRN 3 Days #12 tab PRN Reason: Pain Continue Multivit-Mins/Iron/Folic/Lycop [Centrum Men's Tablet] 1 tab PO DAILY Potassium Gluconate 99 mg PO BID Pantoprazole Sodium [Protonix] 40 mg PO BID #60 tab Albuterol Sulfate [Albuterol Sulfate Hfa] 1 puff INHALATION RT-Q4H PRN PRN Reason: Shortness Of Breath Fluticasone/Umeclidin/Vilanter [Trelegy Ellipta 100-62.5-25] 1 puff INHALATION RT-DAILY Thiamine [Vitamin B-1] 100 mg PO DAILY tab Magnesium Oxide [Magnesium] 500 mg PO DAILY atenoloL [Tenormin] 25 mg PO DAILY Clotrimazole Nabila [Mycelex Nabila] 10 mg MUCOUS MEM QID Naltrexone Microspheres [Vivitrol] 380 mg IM QMONTHLY Discontinued Lidocaine Viscous 2% [Xylocaine Viscous] 15 ml MUCOUS MEM QID Discharge Medication List Multivit-Mins/Iron/Folic/Lycop [Centrum Men's Tablet] 1 tab PO DAILY 11/29/23 [History] Potassium Gluconate 99 mg PO BID 06/21/24 [History] Pantoprazole Sodium [Protonix] 40 mg PO BID #60 tab 07/14/24 [Rx] Albuterol Sulfate [Albuterol Sulfate Hfa] 1 puff INHALATION RT-Q4H PRN 11/02/24 [History] Fluticasone/Umeclidin/Vilanter [Trelegy Ellipta 100-62.5-25] 1 puff INHALATION RT-DAILY 11/02/24 [History] atenoloL [Tenormin] 25 mg PO DAILY 11/02/24 [History] Thiamine [Vitamin B-1] 100 mg PO DAILY tab 11/06/24 [Rx] Clotrimazole Nabila [Mycelex Nabila] 10 mg MUCOUS MEM QID 12/06/24 [History] Magnesium Oxide [Magnesium] 500 mg PO DAILY 12/06/24 [History] Naltrexone Microspheres [Vivitrol] 380 mg IM QMONTHLY 12/06/24 [History] Aspirin 81 mg PO DAILY tab 12/12/24 [Rx] Furosemide [Lasix] 40 mg PO DAILY tab 12/12/24 [Rx] Ipratropium-Albuterol Nebulize [Duoneb 0.5 mg-3 mg/3 ml Soln] 3 ml INHALATION RT-QID #120 each 12/12/24 [Rx] Lactulose [Cephulac] 30 gm PO TID ml 12/12/24 [Rx] Losartan [Cozaar] 25 mg PO DAILY #30 tab 12/12/24 [Rx] predniSONE 10 mg PO DIRECTED #30 tab 12/12/24 [Rx] OLANZapine [ZyPREXA] 2.5 mg PO BID PRN 3 Days #6 tab 12/14/24 [Rx] OLANZapine [ZyPREXA] 2.5 mg PO HS #3 tab 12/14/24 [Rx] traMADol HCl [Ultram] 50 mg PO Q6HR PRN 3 Days #12 tab 12/14/24 [Rx] Follow up Appointment(s)/Referral(s): James Meza Jr, DO [Primary Care Provider] - 1-2 Days Akin Bates DO [Doctor of Osteopathic Medicine] - 2 Weeks Activity/Diet/Wound Care/Special Instructions: Subacute rehab: CBC, BMP in 3 days 2 L nasal cannula Discharge/Stand Alone Forms: Community Resources, Outpatient Counseling, Inp Substance Abuse Facilities Discharge Disposition: TRANSFER TO SNF/ECF
[2024-12-12 16:45] LABS: Glucose,Whole Blood 142 mg/dL (70-110)
[2024-12-12 19:50] LABS: Glucose,Whole Blood 157 mg/dL (70-110)
[2024-12-13] MEDS: PANTOPRAZOLE 40 MG/10 ML VIAL IVP SCH (01:14)
[2024-12-13 03:33] LABS: ABG HCO3 29 mmol/L (21-25); ABG PCO2 35 mmHg (35-45); ABG PH 7.52 (7.35-7.45); ABG PO2 66 mmHg (83-108); ABG TCO2 30 mmol/L (19-24); Allen Test Performed? Yes
[2024-12-13] MEDS: HALOPERIDOL LACTATE 5 MG/ML 1 ML VIAL IM STA (05:13)
[2024-12-13 06:07] LABS: Glucose,Whole Blood 146 mg/dL (70-110)
[2024-12-13 08:13] LABS: African American GFR (CKD) >90 (>60 ml/min/1.73 sqM); Anion Gap 4 mmol/L; Blood Urea Nitrogen 20 mg/dL (9-20); Calcium 8.6 mg/dL (8.4-10.2); Carbon Dioxide 28 mmol/L (22-30); Chloride 103 mmol/L (98-107); Glucose 146 mg/dL (74-99); Non-African American GFR(CKD) >90 (>60 ml/min/1.73 sqM); Potassium 3.7 mmol/L (3.5-5.1); Sodium 135 mmol/L (137-145)
[2024-12-13 09:06] LABS: Basophils # (A) 0.00 10*3/uL (0.00-0.10); Basophils % (A) 0.0 %; Eosinophils # (A) 0.00 10*3/uL (0.04-0.35); Eosinophils % (A) 0.0 %; HCT 33.9 % (39.6-50.0); HGB 11.1 g/dL (13.0-17.0); Lymphocytes # (A) 0.26 10*3/uL (0.90-5.00); Lymphocytes % (A) 1.9 %; MCH 34.6 pg (27.0-32.0); MCHC 32.7 g/dL (32.0-37.0); MCV 105.6 fL (80.0-97.0); Monocytes # (A) 0.86 10*3/uL (0.20-1.00); Monocytes % (A) 6.1 %; Neutrophils # (A) 12.78 10*3/uL (1.80-7.70); Neutrophils % (A) 91.2 %; RBC 3.21 10*6/uL (4.40-5.60); RDW 16.4 % (11.5-14.5); WBC 14.01 10*3/uL (4.50-10.00)
[2024-12-13] MEDS: predniSONE 20 MG TAB PO SCH (09:34)
[2024-12-13] MEDS: NICOTINE 14MG/24HR PATCH TRANSDERM SCH (09:34)
[2024-12-13 10:00] LABS: Platelet Count 74 10*3/uL (140-440)
[2024-12-13 11:47] LABS: Glucose,Whole Blood 247 mg/dL (70-110)
--- NOTE | 2024-12-13 12:39 | P.PN ---
Subjective Progress Note Date: 12/13/24 Principal diagnosis: Pneumonia. Patient is a 49-year-old male with past medical history consistent of alcoholism, liver cirrhosis, esophageal varices with bands, GI bleed, recurrent abdominal ascites with previous paracentesis, chronic pancreatitis, polysubstance abuse, current tobacco dependence, COPD. His primary care provider is Dr. Meza. Patient brought in by EMS late last night and state respiratory distress. Patient was placed on BiPAP on arrival. Chest x-ray tess wing enlarged cardiac silhouette, diffuse bilateral lower lung field consolidations consistent with multilobar pneumonia. Tachypneic, tachycardic, acute leukocytosis, with low-grade fever. Patient received empiric dose azithromycin and Rocephin in the ED. CBC with a WBC count of 17.52, hemoglobin 11.9, platelets 144. CMP: Sodium 137, potassium 5.3, chloride 106, serum bicarb 21, BUN 19, creatinine 0.67, glucose 124. Lactic was elevated at 5.1 and is trending down to 3.9. LFTs mildly elevated. Lipase 392, amylase 73. Troponin elevated at 0.543 possibly secondary to supply/demand mismatch. EKG: Sinus tachycardia, rate 110 bpm, no acute ST segment elevations or T wave inversions. NT proBNP was 3800. Most recent echocardiogram dating back to 2017, estimating a LV function of 55 to 60%. No significant valvular abnormalities were reported. I did receive from Dr. De La Fuente who was concerned that this patient may decompensate, and would be better monitored in the intensive care unit. Evaluating the patient in the emergency department he is on BiPAP with settings 12/6 and FiO2 of 70%. He is tachypneic breathing the mid 30s. Despite this, relatively calm and able to answer questioning. No signs of CO2 narcosis. He states that he went on a roland approximately 3 to 4 days ago. Previously, he drank half a gallon of liquor per day and now he is down to 1 pint per day. Serum alcohol level was 79 on arrival. He is unsure of exactly when, but developed increasingly worsening shortness of breath with associated cough and subjective fevers. Denies sick contacts. Denies recent travel. States he lives at home with his parents. Denies chest pain or lower extremity swelling. Most recent vital signs temperature 99.8 F, heart rate 103 bpm, blood pressure 133/83 mmHg, tachypneic, SpO2 reading 96% on bedside monitor. Patient was seen today on 12/07/2024, patient remains in the ICU, his overall clinical picture is slightly better today compared to yesterday, however his chest x-ray showed significant improvement in his interstitial infiltrate/edema. Patient did receive Lasix yesterday, and he will continue to receive Lasix today. His procalcitonin level was a bit elevated at 0.40, BNP was elevated on admission, echocardiogram is pending. Again considering the improvement on his chest x-ray overnight, this speaks in favor of more pulmonary edema than true pneumonia. Although I suspect that we are dealing with both/pulmonary edema and pneumonia considering his presentation and his clinical history. Patient remains on BiPAP 12/6/50%, he will be transitioned to a nasal cannula. Again echocardiogram is pending. Patient remains on Zosyn empirically. His IV fluids will be cut down to KVO, patient will receive another dose of Lasix today, and will plan to continue the CIWA protocol. WBC count is 23.97 hemoglobin is 12 electrolytes are normal renal profile is normal Seen today on 12/08/2024, remains in the ICU, remains on BiPAP, patient is developing worsening interstitial edema again today, his last dose of Lasix was yesterday, and a chest x-ray yesterday was dramatically more improved compared to the day before and compared to today. Hence I am recommending more diuretics for this patient, will recommend 40 mg IV push twice daily. Ejection fraction on his echocardiogram was 40 to 45%. Patient is on BiPAP 12/6/50%. Does not seem to be in any distress, he is quite comfortable, however he does have leukocytosis and he remains on antibiotics with WBC count of 23.7 hemoglobin is 11.3 electrolytes are normal renal profile is normal bicarb is normal. Troponin is elevated ammonia level is quite high at 100. Patient is on lactulose 30 g 3 times daily. Seen today on 12/09/2024, remains in the ICU as an overflow, presently on Airvo at 60 L flow and 60% FiO2. Intermittently on BiPAP 12/6/40%. Remains on Zosyn remains on diuretics remains on lactulose, patient is frequently refusing treatment including diuretics and lactulose. In the meantime patient is marginal at best. Chest x-ray showed slight improvement in his interstitial e nishant/infiltrates. WBC count is 19.6 hemoglobin is 11 electrolytes are normal renal profile is normal last ammonia level was also 100 yesterday, patient is refusing lactulose. Patient was seen today on 12/10/2024, remains in the ICU as an overflow, remains on Airvo at 60% FiO2 at 60 L flow, O2 sat is 96%, hence I recommended going to IV 15 L high flow nasal cannula instead since it seems to be difficult to titrate his FiO2 down on Airvo. Patient is on CIWA protocol, he is also on Ativan received 2 doses in the last 24 hours of Ativan, and is supposed to go to the medical floor for further treatment. Continues to refuse intermittently has lactulose and his Lasix. Chest x-ray continues show bibasilar interstitial infiltrates/edema. WBC count is 17 hemoglobin 11.1 electrolytes are normal except for low potassium of 3.0 renal profile is normal. Clinically the patient seems to be comfortable, not in distress, not anxious and not agitated. Hence we will still arrange for transfer to a medical surgical floor today. The patient is seen today December 11, 2024 in follow-up on the selective care unit. He was transferred out of the intensive care unit yesterday. He is awake and alert in no acute distress. He is currently on 10 L high flow nasal cannula. He is afebrile. Hemodynamically stable. Blood culture revealed no growth. White count 21.8. Hemoglobin 12.0. Platelets 81,000. Sodium 137. Potassium 4.1. Bicarb 30. BUN 20. Creatinine 0.75. Glucose 186. AST 80. ALT 59. Alk phos 184. Albumin 2.6. He remains on DuoNeb inhalations, Pulmicort and Perforomist inhalations, IV Solu-Medrol. He remains on Zosyn. Remains on IV diuretics. Currently in a -2.5 L balance. Progress note dated December 12, 2024. The patient is seen today in room 380. The patient is laying in bed. No distress. He is awake and alert. He is on 5 L nasal cannula. He is receiving IV Zosyn. In the past, the patient has been a heavy smoker, and heavy drinker of alcohol. He apparently did drugs in the past, but not now. His current labs include a glucose of 169. Blood cultures are negative. Chest x-ray continues to show cardiomegaly, with diffuse interstitial abnormalities consistent with fluid overload, versus atelectasis or atypical infection. Progress note dated December 13, 2024. 49-year-old male seen today in room 380. He is resting comfortably in bed. Has been weaned down to 3 L. He is not receiving any IV fluids. He is awake and alert. He is stable. Denies any respiratory difficulty or distress. His sister, works as a respiratory therapist here at this hospital. Current labs include a white count of 14, hemoglobin 11.1, hematocrit 33.9, and platelet count of 74,000. Blood gases show PO2 of 66, pCO2 35, pH is 7.52. Sodium 135, potassium 3.7, chlorides 103, CO2 28, BUN 20, creatinine 0.67. Ammonia level 74. Glucose is 247. Calcium 8.6. Blood cultures are negative. Yesterday's chest x-ray was reviewed. Objective - Vital Signs Vital signs: Vital Signs Temp 98.2 F 12/13/24 11:36 Pulse 84 12/13/24 11:36 Resp 20 12/13/24 11:36 BP 127/75 12/13/24 11:36 Pulse Ox 93 L 12/13/24 11:36 FiO2 63 12/10/24 04:07 Intake & Output 12/12/24 12/13/24 12/13/24 18:59 06:59 18:59 Intake Total 1317 560 10 Output Total 1325 1800 Balance -8 -1240 10 Intake: IV 20 10 Invasive Line 6 10 Invasive Line 7 10 10 Oral 1317 540 Output: Urine 1325 1800 Other: Voiding Method Urinal Urinal Urinal # Voids 450 - Exam No acute distress, oriented 3. Currently on 3 L. Awake and alert. HEENT examination is grossly unremarkable. Mucous membranes are moist. No oral lesions. Neck supple. Full range of motion. No adenopathy thyromegaly or neck vein distention. Cardiovascular examination reveals regular rhythm rate. S1-S2 normal. No S3 or S4. No discernible murmur noted. Lungs reveal crackles at both bases. There are no wheezes or rhonchi. Breath sounds are equal bilaterally. Abdomen soft bowel sounds are heard. No masses or tenderness. Extremities are intact. No cyanosis clubbing or edema. Skin is without rash or lesion. Neurologic examination is brief but nonfocal. - Labs CBC & Chem 7: 12/13/24 05:36 12/13/24 05:36 Labs: Abnormal Lab Results - Last 24 Hours (Table) 12/12/24 12/12/24 12/13/24 Range/Units 16:44 19:48 03:31 WBC (4.50-10.00) 10*3/uL RBC (4.40-5.60) 10*6/uL Hgb (13.0-17.0) g/dL Hct (39.6-50.0) % MCV (80.0-97.0) fL MCH (27.0-32.0) pg Plt Count (140-440) 10*3/uL Immature Gran # (0.00-0.04) 10*3/uL Neutrophils # (1.80-7.70) 10*3/uL Lymphocytes # (0.90-5.00) 10*3/uL Eosinophils # (0.04-0.35) 10*3/uL ABG pH 7.52 H (7.35-7.45) ABG pO2 66 L (83-108) mmHg ABG HCO3 29 H (21-25) mmol/L ABG Total CO2 30 H (19-24) mmol/L Hemoglobin 12.1 L (13.0-17.5) gm/dL Sodium (137-145) mmol/L Glucose (74-99) mg/dL POC Glucose (mg/dL) 142 H 157 H (70-110) mg/dL Ammonia (<30) umol/L 12/13/24 12/13/24 12/13/24 Range/Units 05:36 05:36 06:05 WBC 14.01 H (4.50-10.00) 10*3/uL RBC 3.21 L (4.40-5.60) 10*6/uL Hgb 11.1 L (13.0-17.0) g/dL Hct 33.9 L (39.6-50.0) % MCV 105.6 H (80.0-97.0) fL MCH 34.6 H (27.0-32.0) pg Plt Count 74 L (140-440) 10*3/uL Immature Gran # 0.11 H (0.00-0.04) 10*3/uL Neutrophils # 12.78 H (1.80-7.70) 10*3/uL Lymphocytes # 0.26 L (0.90-5.00) 10*3/uL Eosinophils # 0.00 L (0.04-0.35) 10*3/uL ABG pH (7.35-7.45) ABG pO2 (83-108) mmHg ABG HCO3 (21-25) mmol/L ABG Total CO2 (19-24) mmol/L Hemoglobin (13.0-17.5) gm/dL Sodium 135 L (137-145) mmol/L Glucose 146 H (74-99) mg/dL POC Glucose (mg/dL) 146 H (70-110) mg/dL Ammonia (<30) umol/L 12/13/24 12/13/24 Range/Units 08:37 11:45 WBC (4.50-10.00) 10*3/uL RBC (4.40-5.60) 10*6/uL Hgb (13.0-17.0) g/dL Hct (39.6-50.0) % MCV (80.0-97.0) fL MCH (27.0-32.0) pg Plt Count (140-440) 10*3/uL Immature Gran # (0.00-0.04) 10*3/uL Neutrophils # (1.80-7.70) 10*3/uL Lymphocytes # (0.90-5.00) 10*3/uL Eosinophils # (0.04-0.35) 10*3/uL ABG pH (7.35-7.45) ABG pO2 (83-108) mmHg ABG HCO3 (21-25) mmol/L ABG Total CO2 (19-24) mmol/L Hemoglobin (13.0-17.5) gm/dL Sodium (137-145) mmol/L Glucose (74-99) mg/dL POC Glucose (mg/dL) 247 H (70-110) mg/dL Ammonia 74 H (<30) umol/L Assessment and Plan Assessment: Acute hypoxemic respiratory failure, secondary to congestive heart failure and possibly aspiration pneumonia. Acute COPD exacerbation. Alcohol intoxication, serum alcohol level 79. Elevated ammonia level, on lactulose. Acute leukocytosis. Lactic acidemia, improving. Chronic pancreatitis. Abdominal pain. Elevated troponin, suspect supply/demand mismatch. History of liver cirrhosis with esophageal varices and banding. History of GI bleed. History of recurrent abdominal ascites with previous paracentesis. History of polysubstance abuse. Chronic tobacco dependence. Mild LV dysfunction most likely related to alcohol. Plan: Plan dated December 12, 2024. The patient continues on oxygen, at 5 L by nasal cannula. He also continues on IV Zosyn. We took the time to speak to his sister, who is a respiratory therapist at this hospital. Labs, x-rays, and medications are reviewed. According to his sister, the patient is essentially homeless. He is a DO NOT RESUSCITATE patient, even though he is only 49 years of age. The patient drinks heavily and smokes heavily. We will continue to follow make recommendations along the way. Prognosis is poor. Dictation was produced using [employer] software. Please excuse any grammatical, word or spelling errors. Plan dated December 13, 2024. The patient is seen today in room 380. The patient has been weaned down to 3 L. His respiratory status is stable. He is not receiving any IV fluid. Labs, x- rays, and medications are reviewed. The patient is a DO NOT RESUSCITATE patient. The patient will be discharged on updrafts, with albuterol sulfate and ipratropium bromide, Symbicort 160/4.5, 2 puffs twice a day, and a prednisone wean. He is currently not on any antibiotics. He is completed that. Labs, x- rays, and all medications are reviewed. There is a discharge order in the chart. Dictation was produced using [employer] software. Please excuse any grammatical, word or spelling errors. Time with Patient: Less than 30
[2024-12-13 13:04] VITALS: BMI 28.4
--- NOTE | 2024-12-13 14:11 | P.PN ---
Subjective Progress Note Date: 12/13/24 HISTORY OF PRESENTING ILLNESS This is a pleasant 49-year-old with past medical history significant for al coholism, liver cirrhosis, esophageal varices with bands, GI bleed, ascites with previous paracentesis as well as pancreatitis, previous heavy alcohol use, tobacco abuse, COPD. 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 Patient states he had RSV along with his mother approximately a month ago and then more recently has been having increased cough and fevers and chills over the last 3 to 4 days. He also has been having some chest tightness and pressure which has been off-and-on over the last few days. He states he has been drinking somewhat however not as heavy as he previously did, previously drinking half of a gallon daily. He is still smoking. He denies any marijuana or cocaine. Denies any family history of coronary artery disease. He was found to have maximum temperature 99.8. Chest x-ray shows bilateral infiltrates. He was placed on BiPAP and currently feels somewhat better in terms of her shortness of breath. Patient does have advanced directive per nursing with patient being DNR Blood work shows white blood cell count 17, hemoglobin 11.9, creatinine 0.6, lactic acid 5.1, troponin 0.54, 0.62. proBNP 3800, albumin 2.9, lipase 392. Shows normal sinus rhythm, normal axis, minimal 0.[address] depressions in the inferior leads. 12/07 Patient seen and examined. Patient still complaining of some atypical epigastric and chest pain somewhat reproducible and somewhat with deep inspiration and cough. Echocardiogram pending. Still remains on BiPAP. 12/08 Patient seen and examined. Patient still short of breath on BiPAP. He is still having intermittent chest pain. He states it is currently an 8 out of 10. Per nursing usually Ativan and morphine will help with his chest pain. 12/09/2024 Seen and examined at bedside this a.m. Still on high flow nasal cannula oxygen BP 123/73, heart rate 62 bpm 12/10/2024 Been transferred out of ICU today. On 4 to 5 L of nasal cannula supplemental oxygen Hemodynamically stable. 12/11/2024 Patient seen and examined on the cardiac stepdown unit. Blood pressure 109/63, heart rate 60, pulse ox 95% on high flow nasal cannula 10 L. Repeat blood work reveals WBC 21, hemoglobin 12, creatinine 0.75. Liver function tests are elevated. 12/12/2024 Patient seen and examined. Lungs are clear, he is feeling much better today. No lower extremity edema. He has been maintained on oral Lasix. Blood pressure 123/65, heart rate in the 50s to 70s, pulse ox 94% on 5 L high flow nasal cannula. 12/13/2024 Patient seen and examined. Patient states that his breathing was worse and he was feeling shaky. No lower extremity edema. Blood pressure 127/75, heart rate 70s, pulse ox 93% on 2 L nasal cannula. Repeat blood work reveals WBC 14, hemoglobin 11.1, platelet count 74, creatinine 0.67, potassium 3.7. Ammonia level is 74. No medication changes made today. PHYSICAL EXAMINATION Vital signs reviewed. CONSTITUTIONAL: No apparent distress. HEENT: Head is normocephalic. Pupils are equal, round. Sclerae anicteric. Mucous membranes of the mouth are moist. No JVD. No carotid bruit. CHEST EXAMINATION: Lungs are clear to auscultation. No chest wall tenderness is noted on palpation or with deep breathing. HEART EXAMINATION: Regular rate and rhythm. S1, S2 heard. No murmurs, gallops or rub. ABDOMEN: Soft, nontender. Positive bowel sounds. EXTREMITIES: 2+ peripheral pulses, no lower extremity edema and no calf tenderness. NEUROLOGIC EXAMINATION: Patient is awake, alert and oriented x3. ASSESSMENT Acute on chronic respiratory failure appears mainly related to pneumonia Non-STEMI likely type II mechanism related to pneumonia with significant hypoxia and lactic acidosis Precordial chest pain, may be related to pneumonia however rule out cardiac source COPD exacerbation Hypertension Alcohol abuse Previous liver cirrhosis currently appears compensated History of chronic pancreatitis Medical noncompliance Tobacco abuse Mild cardiomyopathy ejection fraction 40 to 45% PLAN Majority of presentation appears consistent with pneumonia and respiratory failure related to pneumonia. Non-STEMI likely type II mechanism however he is having some chest discomfort. Chest discomfort appears more musculoskeletal, pleuritic and related to pneumonia however monitor closely for any type I non-STEMI. Continue current cardiac medications: Aspirin 81 mg daily, atenolol 25 mg daily, Lasix 40 mg daily, losartan 25 mg daily Echo showing ejection fraction 40 to 45% with paradoxical septal motion. May be more long-term cardiomyopathy from his alcohol use and we will attempt to track down prior echoes. Continue conservative management with patient not being a good interventional candidate with history of varices and GI bleeding in the past. Nurse practitioner note has been reviewed, I agree with documented findings and plan of care. Patient was seen and examined. Objective - Vital Signs Vital signs: Vital Signs Temp 97.4 F L 12/13/24 07:57 Pulse 62 12/13/24 09:03 Resp 20 12/13/24 08:00 BP 148/70 12/13/24 07:57 Pulse Ox 92 L 12/13/24 08:38 FiO2 63 12/10/24 04:07 Intake & Output 12/12/24 12/13/24 12/13/24 18:59 06:59 18:59 Intake Total 1317 560 10 Output Total 1325 1800 Balance -8 -1240 10 Intake: IV 20 10 Invasive Line 6 10 Invasive Line 7 10 10 Oral 1317 540 Output: Urine 1325 1800 Other: Voiding Method Urinal Urinal Urinal - Labs CBC & Chem 7: 12/13/24 05:36 12/13/24 05:36 Labs: Abnormal Lab Results - Last 24 Hours (Table) 12/12/24 12/12/24 12/12/24 Range/Units 11:45 16:44 19:48 WBC (4.50-10.00) 10*3/uL RBC (4.40-5.60) 10*6/uL Hgb (13.0-17.0) g/dL Hct (39.6-50.0) % MCV (80.0-97.0) fL MCH (27.0-32.0) pg Plt Count (140-440) 10*3/uL Immature Gran # (0.00-0.04) 10*3/uL ABG pH (7.35-7.45) ABG pO2 (83-108) mmHg ABG HCO3 (21-25) mmol/L ABG Total CO2 (19-24) mmol/L Hemoglobin (13.0-17.5) gm/dL Sodium (137-145) mmol/L Glucose (74-99) mg/dL POC Glucose (mg/dL) 169 H 142 H 157 H (70-110) mg/dL Ammonia (<30) umol/L 12/13/24 12/13/24 12/13/24 Range/Units 03:31 05:36 05:36 WBC 14.01 H (4.50-10.00) 10*3/uL RBC 3.21 L (4.40-5.60) 10*6/uL Hgb 11.1 L (13.0-17.0) g/dL Hct 33.9 L (39.6-50.0) % MCV 105.6 H (80.0-97.0) fL MCH 34.6 H (27.0-32.0) pg Plt Count 74 L (140-440) 10*3/uL Immature Gran # 0.11 H (0.00-0.04) 10*3/uL ABG pH 7.52 H (7.35-7.45) ABG pO2 66 L (83-108) mmHg ABG HCO3 29 H (21-25) mmol/L ABG Total CO2 30 H (19-24) mmol/L Hemoglobin 12.1 L (13.0-17.5) gm/dL Sodium 135 L (137-145) mmol/L Glucose 146 H (74-99) mg/dL POC Glucose (mg/dL) (70-110) mg/dL Ammonia (<30) umol/L 12/13/24 12/13/24 Range/Units 06:05 08:37 WBC (4.50-10.00) 10*3/uL RBC (4.40-5.60) 10*6/uL Hgb (13.0-17.0) g/dL Hct (39.6-50.0) % MCV (80.0-97.0) fL MCH (27.0-32.0) pg Plt Count (140-440) 10*3/uL Immature Gran # (0.00-0.04) 10*3/uL ABG pH (7.35-7.45) ABG pO2 (83-108) mmHg ABG HCO3 (21-25) mmol/L ABG Total CO2 (19-24) mmol/L Hemoglobin (13.0-17.5) gm/dL Sodium (137-145) mmol/L Glucose (74-99) mg/dL POC Glucose (mg/dL) 146 H (70-110) mg/dL Ammonia 74 H (<30) umol/L
[2024-12-13 17:08] LABS: Glucose,Whole Blood 137 mg/dL (70-110)
--- NOTE | 2024-12-13 19:42 | P.PN ---
Subjective Progress Note Date: 12/13/24 H&P Date: 12/06/24 Chief Complaint: Alcohol intoxication, respiratory failure This is a 49-year-old male with past medical history significant for polysubs tance abuse including alcohol, cocaine heroin marijuana, pancreatitis, chronic alcoholic hepatitis ,ascites with multiple paracentesis, esophageal varices with multiple banding's, chronic anemia, ventral hernia repair, bipolar, depression, anxiety, multiple other medical issues transferred to the ER via EMS with complaints of progressive dyspnea over the last couple days,accompanied by cough.endorses heavy alcohol use of 1 pint per day. On admission tachypneic, tachycardic, venous blood gases reported pH 7.45 [id number], bicarb 21, Tmax 99.8, WBC 17.52 lactic acid 5.1 decreased to 2.1 with IV fluid hydration. Chest x-ray reporting bilateral lower lung field consolidations consistent with multilobar pneumonia. Procalcitonin within normal limits, 0.40. ProBNP 3800, Hemoglobin 11.9, platelets 144, INR 1.1. Troponin 0.543, 0.623, EKG reporting sinus tachycardia, prior echo 2016 reporting normal LV function, EF 55 to 60% with no significant valvular abnormalities/repeat echo ordered ordered. T. bili 2.6, AST 165, AST 44, alk phos 218. Amylase 73, lipase 392. Serum alcohol 79. maintained on BiPAP 60%, Zosyn, nebulized bronchodilators, IV steroids, Pulmicort and CIWA protocol. Recent CIWA score 8. 12/07/2024 remains BiPAP dependent, FiO2 50%. Continues on Lasix-chest x-ray yesterday reported interstitial infiltrates with lower lung airspace disease improved.echo pending. Renal function stable.positive diet intake, able to be off BiPAP for less than 10 minutes to facilitate eating. Staff reports patient cooperative but impulsive, with significant anxiety. CIWA score during the night 24 currently ranging 6-9. In the last 24 hours has received 9 mg of Ativan per CIWA protocol. Viral studies negative, afebrile, WBC increased to 23.97. December 09, 2024: Patient is reevaluated. He remains in intensive care unit as overflow. He remains on Airvo 60 L/min with an FiO2 of 63%. He is undergoing a breathing treatment while I am seeing him today. He indicates he is feeling much better. He complains of some minor tremors that have improved since arrival. He also complains of some mild chest pain. No nausea or vomiting no diarrhea or constipation. He was originally admitted for bilateral pneumonia, suspected for aspiration. He has significant history of alcoholism along with alcoholic hepatitis and chronic pancreatitis. He has known esophageal varices as well. Signs this morning are stable blood pressure controlled. Labs show WBC count of 19.65 hemoglobin is 11 MCV 106.3 platelets are 87. Chemistries are essentially normal with exception of glucose which has been slightly elevated. Blood cultures are negative. Sickle care notes reviewed remains on Zosyn and diuretics with lactulose as well. December 10, 2024: Patient continues to complain of pain abdomen consistent with his chronic pancreatitis. Changed to tramadol and morphine was discontinued. We discussed why that was as my concerns with respiratory suppression and his pneumonia. He indicates tramadol not help and would like Nahma which he does take at home. He is currently on high flow oxygen via nasal cannula 15 L/min. Staff indicate he is overall improved. He received lorazepam last night twice once this morning. Pulmonology is following. He will go to the stepdown unit soon. He remains on Zosyn for antibiotic coverage for his pneumonia. He has albuterol and budesonide breathing treatments along with methylprednisolone. He continues on pantoprazole for GERD. Diazepam and chlordiazepoxide for CIWA protocol scales. 12/11/2024 chest x-ray yesterday reported slightly improved reticulonodular infiltrates.maintaining O2 sats in the high 90s on 10 L high flow nasal cannula. Continues on Zosyn. WBC 21.8, platelets 81. Afebrile. Continues on CIWA protocol, recent CIWA score 10. Evaluated by cardiology, recommendations noted. 12/13/2024 initially had plan for discharge, as O2 had been weaning down. Patient became increasingly confused, required Ativan frequently throughout the night. Eventually received Haldol this a.m. as patient was pulling out all IVs and morgan es. Repeat blood work reveals WBC 14, hemoglobin 11.1, platelets 74, creatinine 0.67, potassium 3.7. Ammonia level is 74. Objective - Vital Signs Vital signs: Vital Signs Temp 97.8 F 12/13/24 16:00 Pulse 76 12/13/24 16:24 Resp 20 12/13/24 16:00 BP 118/62 12/13/24 16:00 Pulse Ox 95 12/13/24 16:00 FiO2 63 12/10/24 04:07 Intake & Output 12/13/24 12/13/24 12/14/24 06:59 18:59 06:59 Intake Total 560 1280 Output Total 1800 Balance -1240 1280 Weight 95.1 kg Intake: IV 20 20 Invasive Line 6 10 Invasive Line 7 10 20 Oral 540 1260 Output: Urine 1800 Other: Voiding Method Urinal Urinal # Voids 450 - Exam General: alert and oriented x 1, laying in bed. no acute distress HEENT: [Normocephalic, atraumatic ,PERRL. EOMI. sclera nonicteric .no erythema or exudate.] Neck: Supple, no JVD Cardiac: [Heart regular in rate and rhythm. No S3. No S4. No clicks, rubs. No murmur.] Lungs: Unlabored, equal air entry, fine basilar crackles. Abdomen: Soft, nondistended,nontender,no guarding, positive bowel sounds. Extremes: [No edema no cyanosis no claudication normal pulses] Skin: No rash. warm and dry. Neurologic: Limited exam ,currently alert and oriented to person only, stating it is February and then he needs to go to the store. - Labs CBC & Chem 7: 12/13/24 05:36 12/13/24 05:36 Labs: Abnormal Lab Results - Last 24 Hours (Table) 12/12/24 12/13/24 12/13/24 Range/Units 19:48 03:31 05:36 WBC (4.50-10.00) 10*3/uL RBC (4.40-5.60) 10*6/uL Hgb (13.0-17.0) g/dL Hct (39.6-50.0) % MCV (80.0-97.0) fL MCH (27.0-32.0) pg Plt Count (140-440) 10*3/uL Immature Gran # (0.00-0.04) 10*3/uL Neutrophils # (1.80-7.70) 10*3/uL Lymphocytes # (0.90-5.00) 10*3/uL Eosinophils # (0.04-0.35) 10*3/uL ABG pH 7.52 H (7.35-7.45) ABG pO2 66 L (83-108) mmHg ABG HCO3 29 H (21-25) mmol/L ABG Total CO2 30 H (19-24) mmol/L Hemoglobin 12.1 L (13.0-17.5) gm/dL Sodium 135 L (137-145) mmol/L Glucose 146 H (74-99) mg/dL POC Glucose (mg/dL) 157 H (70-110) mg/dL Ammonia (<30) umol/L 12/13/24 12/13/24 12/13/24 Range/Units 05:36 06:05 08:37 WBC 14.01 H (4.50-10.00) 10*3/uL RBC 3.21 L (4.40-5.60) 10*6/uL Hgb 11.1 L (13.0-17.0) g/dL Hct 33.9 L (39.6-50.0) % MCV 105.6 H (80.0-97.0) fL MCH 34.6 H (27.0-32.0) pg Plt Count 74 L (140-440) 10*3/uL Immature Gran # 0.11 H (0.00-0.04) 10*3/uL Neutrophils # 12.78 H (1.80-7.70) 10*3/uL Lymphocytes # 0.26 L (0.90-5.00) 10*3/uL Eosinophils # 0.00 L (0.04-0.35) 10*3/uL ABG pH (7.35-7.45) ABG pO2 (83-108) mmHg ABG HCO3 (21-25) mmol/L ABG Total CO2 (19-24) mmol/L Hemoglobin (13.0-17.5) gm/dL Sodium (137-145) mmol/L Glucose (74-99) mg/dL POC Glucose (mg/dL) 146 H (70-110) mg/dL Ammonia 74 H (<30) umol/L 12/13/24 12/13/24 Range/Units 11:45 17:07 WBC (4.50-10.00) 10*3/uL RBC (4.40-5.60) 10*6/uL Hgb (13.0-17.0) g/dL Hct (39.6-50.0) % MCV (80.0-97.0) fL MCH (27.0-32.0) pg Plt Count (140-440) 10*3/uL Immature Gran # (0.00-0.04) 10*3/uL Neutrophils # (1.80-7.70) 10*3/uL Lymphocytes # (0.90-5.00) 10*3/uL Eosinophils # (0.04-0.35) 10*3/uL ABG pH (7.35-7.45) ABG pO2 (83-108) mmHg ABG HCO3 (21-25) mmol/L ABG Total CO2 (19-24) mmol/L Hemoglobin (13.0-17.5) gm/dL Sodium (137-145) mmol/L Glucose (74-99) mg/dL POC Glucose (mg/dL) 247 H 137 H (70-110) mg/dL Ammonia (<30) umol/L Assessment and Plan Assessment: Alcohol intoxication, serum level 79 Acute COPD exacerbation Possible acute CHF exacerbation, EF 40 to 45% Acute hypoxic respiratory failure, BiPAP dependent, secondary to all the above ,multilobar pneumonia, possible aspiration Lactic acidosis, improving with IV fluid hydration Elevated troponins, NSTEMI suspect typeII related to mismatch supply and demand,cardiology following Hyperammonemia Chronic abdominal pain Chronic pancreatitis History of esophageal varices with multiple bandings Elevated T. bili, LFTs in a patient with history of alcoholic cirrhosis of liver, chronic alcoholic hepatitis Portal hypertension History of ascites with multiple paracentesis Alcohol dependence History of polysubstance abuse including cocaine, heroin, marijuana Noncompliance Chronic alcoholic hepatitis Chronic nicotine dependence History of nephrolithiasis, chronic anemia No code Plan: Continue on current medication regime ,monitoring and symptomatic treatment. IV steroids transitioned to oral. maintain lactulose as ordered - patient has been declining , ammonia level remains elevated. Maintain agg ressive pulmonary toileting with nebulized bronchodilators, Pulmicort, steroids, Lasix. CIWA protocol. Patient is homeless, currently staying at his mother's house which has added significant stress on her as well as the family. Psychiatry consulted for competency evaluation. sister is applying for guardianship and eventual penitentiary. Currently discharge planning in progress for subacute rehab. The impression and plan of care has been dictated as directed. : I performed a history and examination of this patient, discussed the same with the dictator. I agree with the dictator's note ,documented as a scribe. Any additional findings or plans will be noted.
[2024-12-13 20:04] LABS: Glucose,Whole Blood 134 mg/dL (70-110)
[2024-12-13] MEDS: SYMBICORT 160-4.5 MCG INHALER INHALATION SCH (21:36)
[2024-12-14 06:06] LABS: Glucose,Whole Blood 105 mg/dL (70-110)
[2024-12-14 08:23] LABS: African American GFR (CKD) >90 (>60 ml/min/1.73 sqM); Anion Gap 5 mmol/L; Blood Urea Nitrogen 22 mg/dL (9-20); Calcium 8.6 mg/dL (8.4-10.2); Carbon Dioxide 27 mmol/L (22-30); Chloride 104 mmol/L (98-107); Glucose 116 mg/dL (74-99); Magnesium 2.2 mg/dL (1.6-2.3); Non-African American GFR(CKD) >90 (>60 ml/min/1.73 sqM); Potassium 3.7 mmol/L (3.5-5.1); Sodium 136 mmol/L (137-145)
[2024-12-14 12:06] LABS: Glucose,Whole Blood 155 mg/dL (70-110)
--- NOTE | 2024-12-14 12:11 | P.PN ---
Subjective Progress Note Date: 12/14/24 HISTORY OF PRESENTING ILLNESS This is a pleasant 49-year-old with past medical history significant for al coholism, liver cirrhosis, esophageal varices with bands, GI bleed, ascites with previous paracentesis as well as pancreatitis, previous heavy alcohol use, tobacco abuse, COPD. 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 Patient states he had RSV along with his mother approximately a month ago and then more recently has been having increased cough and fevers and chills over the last 3 to 4 days. He also has been having some chest tightness and pressure which has been off-and-on over the last few days. He states he has been drinking somewhat however not as heavy as he previously did, previously drinking half of a gallon daily. He is still smoking. He denies any marijuana or cocaine. Denies any family history of coronary artery disease. He was found to have maximum temperature 99.8. Chest x-ray shows bilateral infiltrates. He was placed on BiPAP and currently feels somewhat better in terms of her shortness of breath. Patient does have advanced directive per nursing with patient being DNR Blood work shows white blood cell count 17, hemoglobin 11.9, creatinine 0.6, lactic acid 5.1, troponin 0.54, 0.62. proBNP 3800, albumin 2.9, lipase 392. Shows normal sinus rhythm, normal axis, minimal 0.[address] depressions in the inferior leads. 12/07 Patient seen and examined. Patient still complaining of some atypical epigastric and chest pain somewhat reproducible and somewhat with deep inspiration and cough. Echocardiogram pending. Still remains on BiPAP. 12/08 Patient seen and examined. Patient still short of breath on BiPAP. He is still having intermittent chest pain. He states it is currently an 8 out of 10. Per nursing usually Ativan and morphine will help with his chest pain. 12/09/2024 Seen and examined at bedside this a.m. Still on high flow nasal cannula oxygen BP 123/73, heart rate 62 bpm 12/10/2024 Been transferred out of ICU today. On 4 to 5 L of nasal cannula supplemental oxygen Hemodynamically stable. 12/11/2024 Patient seen and examined on the cardiac stepdown unit. Blood pressure 109/63, heart rate 60, pulse ox 95% on high flow nasal cannula 10 L. Repeat blood work reveals WBC 21, hemoglobin 12, creatinine 0.75. Liver function tests are elevated. 12/12/2024 Patient seen and examined. Lungs are clear, he is feeling much better today. No lower extremity edema. He has been maintained on oral Lasix. Blood pressure 123/65, heart rate in the 50s to 70s, pulse ox 94% on 5 L high flow nasal cannula. 12/13/2024 Patient seen and examined. Patient states that his breathing was worse and he was feeling shaky. No lower extremity edema. Blood pressure 127/75, heart rate 70s, pulse ox 93% on 2 L nasal cannula. Repeat blood work reveals WBC 14, hemoglobin 11.1, platelet count 74, creatinine 0.67, potassium 3.7. Ammonia level is 74. No medication changes made today. 12/14/2024 Patient seen and examined. Patient now has a sitter at the bedside for mental status changes but patient appears to be improved now.. He does have wheezing bilaterally. Blood pressure 119/64, heart rate 71, pulse ox 96% on 2 L nasal cannula. Patient did have a pulse ox during the night of 87% on room air. Repeat blood work reveals sodium 136, potassium 3.7, BUN 22 and creatinine 0.84. Ammonia level 119. PHYSICAL EXAMINATION Vital signs reviewed. CONSTITUTIONAL: No apparent distress. HEENT: Head is normocephalic. Pupils are equal, round. Sclerae anicteric. Mucous membranes of the mouth are moist. No JVD. No carotid bruit. CHEST EXAMINATION: Lungs are clear to auscultation. No chest wall tenderness is noted on palpation or with deep breathing. HEART EXAMINATION: Regular rate and rhythm. S1, S2 heard. No murmurs, gallops or rub. ABDOMEN: Soft, nontender. Positive bowel sounds. EXTREMITIES: 2+ peripheral pulses, no lower extremity edema and no calf tenderness. NEUROLOGIC EXAMINATION: Patient is awake, alert and oriented x3. ASSESSMENT Acute on chronic respiratory failure appears mainly related to pneumonia Non-STEMI likely type II mechanism related to pneumonia with significant hypoxia and lactic acidosis Precordial chest pain, may be related to pneumonia however rule out cardiac source COPD exacerbation Hypertension Alcohol abuse Previous liver cirrhosis currently appears compensated History of chronic pancreatitis Medical noncompliance Tobacco abuse Mild cardiomyopathy ejection fraction 40 to 45% Elevated ammonia levels PLAN Majority of presentation appears consistent with pneumonia and respiratory failure related to pneumonia. Non-STEMI likely type II mechanism however he is having some chest discomfort. Chest discomfort appears more musculoskeletal, pleuritic and related to pneumonia however monitor closely for any type I non-STEMI. Continue current cardiac medications: Aspirin 81 mg daily, atenolol 25 mg daily, Lasix 40 mg daily, losartan 25 mg daily Echo showing ejection fraction 40 to 45% with paradoxical septal motion. May be more long-term cardiomyopathy from his alcohol use and we will attempt to track down prior echoes. Continue conservative management with patient not being a good interventional candidate with history of varices and GI bleeding in the past. Cardiology will sign off this case and follow on an as-needed basis. Please reconsult for any new concerns. Patient may follow-up in the office in one to 2 weeks. Nurse practitioner note has been reviewed, I agree with documented findings and plan of care. Patient was seen and examined. Objective - Vital Signs Vital signs: Vital Signs Temp 97.6 F 12/14/24 03:25 Pulse 71 12/14/24 03:25 Resp 21 12/14/24 03:25 BP 119/64 12/14/24 03:25 Pulse Ox 96 12/14/24 03:25 FiO2 63 12/10/24 04:07 Intake & Output 12/13/24 12/14/24 12/14/24 18:59 06:59 18:59 Intake Total 1280 20 Output Total 800 Balance 1280 -780 Weight 95.1 kg 94.5 kg Intake: IV 20 20 Invasive Line 7 20 20 Oral 1260 Output: Urine 800 Other: Voiding Method Urinal Urinal # Voids 450 - Labs CBC & Chem 7: 12/13/24 05:36 12/14/24 07:43 Labs: Abnormal Lab Results - Last 24 Hours (Table) 12/13/24 12/13/24 12/13/24 Range/Units 05:36 08:37 11:45 WBC 14.01 H (4.50-10.00) 10*3/uL RBC 3.21 L (4.40-5.60) 10*6/uL Hgb 11.1 L (13.0-17.0) g/dL Hct 33.9 L (39.6-50.0) % MCV 105.6 H (80.0-97.0) fL MCH 34.6 H (27.0-32.0) pg Plt Count 74 L (140-440) 10*3/uL Immature Gran # 0.11 H (0.00-0.04) 10*3/uL Neutrophils # 12.78 H (1.80-7.70) 10*3/uL Lymphocytes # 0.26 L (0.90-5.00) 10*3/uL Eosinophils # 0.00 L (0.04-0.35) 10*3/uL Sodium (137-145) mmol/L BUN (9-20) mg/dL Glucose (74-99) mg/dL POC Glucose (mg/dL) 247 H (70-110) mg/dL Ammonia 74 H (<30) umol/L 12/13/24 12/13/24 12/14/24 Range/Units 17:07 20:03 07:43 WBC (4.50-10.00) 10*3/uL RBC (4.40-5.60) 10*6/uL Hgb (13.0-17.0) g/dL Hct (39.6-50.0) % MCV (80.0-97.0) fL MCH (27.0-32.0) pg Plt Count (140-440) 10*3/uL Immature Gran # (0.00-0.04) 10*3/uL Neutrophils # (1.80-7.70) 10*3/uL Lymphocytes # (0.90-5.00) 10*3/uL Eosinophils # (0.04-0.35) 10*3/uL Sodium 136 L (137-145) mmol/L BUN 22 H (9-20) mg/dL Glucose 116 H (74-99) mg/dL POC Glucose (mg/dL) 137 H 134 H (70-110) mg/dL Ammonia (<30) umol/L 12/14/24 Range/Units 07:43 WBC (4.50-10.00) 10*3/uL RBC (4.40-5.60) 10*6/uL Hgb (13.0-17.0) g/dL Hct (39.6-50.0) % MCV (80.0-97.0) fL MCH (27.0-32.0) pg Plt Count (140-440) 10*3/uL Immature Gran # (0.00-0.04) 10*3/uL Neutrophils # (1.80-7.70) 10*3/uL Lymphocytes # (0.90-5.00) 10*3/uL Eosinophils # (0.04-0.35) 10*3/uL Sodium (137-145) mmol/L BUN (9-20) mg/dL Glucose (74-99) mg/dL POC Glucose (mg/dL) (70-110) mg/dL Ammonia 119 H (<30) umol/L
--- NOTE | 2024-12-14 12:30 | P.PN ---
Subjective Progress Note Date: 12/12/24 H&P Date: 12/06/24 Chief Complaint: Alcohol intoxication, respiratory failure This is a 49-year-old male with past medical history significant for polysubs tance abuse including alcohol, cocaine heroin marijuana, pancreatitis, chronic alcoholic hepatitis ,ascites with multiple paracentesis, esophageal varices with multiple banding's, chronic anemia, ventral hernia repair, bipolar, depression, anxiety, multiple other medical issues transferred to the ER via EMS with complaints of progressive dyspnea over the last couple days,accompanied by cough.endorses heavy alcohol use of 1 pint per day. On admission tachypneic, tachycardic, venous blood gases reported pH 7.45 [id number], bicarb 21, Tmax 99.8, WBC 17.52 lactic acid 5.1 decreased to 2.1 with IV fluid hydration. Chest x-ray reporting bilateral lower lung field consolidations consistent with multilobar pneumonia. Procalcitonin within normal limits, 0.40. ProBNP 3800, Hemoglobin 11.9, platelets 144, INR 1.1. Troponin 0.543, 0.623, EKG reporting sinus tachycardia, prior echo 2016 reporting normal LV function, EF 55 to 60% with no significant valvular abnormalities/repeat echo ordered ordered. T. bili 2.6, AST 165, AST 44, alk phos 218. Amylase 73, lipase 392. Serum alcohol 79. maintained on BiPAP 60%, Zosyn, nebulized bronchodilators, IV steroids, Pulmicort and CIWA protocol. Recent CIWA score 8. 12/07/2024 remains BiPAP dependent, FiO2 50%. Continues on Lasix-chest x-ray yesterday reported interstitial infiltrates with lower lung airspace disease improved.echo pending. Renal function stable.positive diet intake, able to be off BiPAP for less than 10 minutes to facilitate eating. Staff reports patient cooperative but impulsive, with significant anxiety. CIWA score during the night 24 currently ranging 6-9. In the last 24 hours has received 9 mg of Ativan per CIWA protocol. Viral studies negative, afebrile, WBC increased to 23.97. December 09, 2024: Patient is reevaluated. He remains in intensive care unit as overflow. He remains on Airvo 60 L/min with an FiO2 of 63%. He is undergoing a breathing treatment while I am seeing him today. He indicates he is feeling much better. He complains of some minor tremors that have improved since arrival. He also complains of some mild chest pain. No nausea or vomiting no diarrhea or constipation. He was originally admitted for bilateral pneumonia, suspected for aspiration. He has significant history of alcoholism along with alcoholic hepatitis and chronic pancreatitis. He has known esophageal varices as well. Signs this morning are stable blood pressure controlled. Labs show WBC count of 19.65 hemoglobin is 11 MCV 106.3 platelets are 87. Chemistries are essentially normal with exception of glucose which has been slightly elevated. Blood cultures are negative. Sickle care notes reviewed remains on Zosyn and diuretics with lactulose as well. December 10, 2024: Patient continues to complain of pain abdomen consistent with his chronic pancreatitis. Changed to tramadol and morphine was discontinued. We discussed why that was as my concerns with respiratory suppression and his pneumonia. He indicates tramadol not help and would like [place] which he does take at home. He is currently on high flow oxygen via nasal cannula 15 L/min. Staff indicate he is overall improved. He received lorazepam last night twice once this morning. Pulmonology is following. He will go to the stepdown unit soon. He remains on Zosyn for antibiotic coverage for his pneumonia. He has albuterol and budesonide breathing treatments along with methylprednisolone. He continues on pantoprazole for GERD. Diazepam and chlordiazepoxide for CIWA protocol scales. 12/11/2024 chest x-ray yesterday reported slightly improved reticulonodular infiltrates.maintaining O2 sats in the high 90s on 10 L high flow nasal cannula. Continues on Zosyn. WBC 21.8, platelets 81. Afebrile. Continues on CIWA protocol, recent CIWA score 10. Evaluated by cardiology, recommendations noted. 12/12/2024etter air exchange today, with nasal cannula FiO2 weaned down to 5 L high flow nasal cannula, maintaining O2 sats in the 90s. Discharge planning to subacute rehab, pending PT/OT evaluation, final DC recommendations and clearance as per pulmonary. Evaluated by cardiology regarding chest discomfort; appears more musculoskeletal, pleuritic in nature related to his respiratory function, recommending conservative management. Objective - Vital Signs Vital signs: Vital Signs Temp 97.5 F L 12/12/24 07:49 Pulse 71 12/12/24 07:49 Resp 20 12/12/24 07:49 BP 111/61 12/12/24 07:49 Pulse Ox 95 12/12/24 07:49 FiO2 63 12/10/24 04:07 Intake & Output 12/11/24 12/12/24 12/12/24 18:59 06:59 18:59 Intake Total 1250 777 Output Total 1775 850 600 Balance -525 -850 177 Weight 95.1 kg Intake: Oral 1250 777 Output: Urine 1775 850 600 Other: Voiding Method Urinal Urinal # Voids 1 - Exam General: alert and oriented x 3, laying in bed. no acute distress HEENT: [Normocephalic, atraumatic ,PERRL. EOMI. sclera nonicteric .no erythema or exudate.] Neck: Supple, no JVD Cardiac: [Heart regular in rate and rhythm. No S3. No S4. No clicks, rubs. No murmur.] Lungs: Unlabored, equal air entry, fine basilar crackles. Abdomen: Soft, nondistended,nontender,no guarding, positive bowel sounds. Extremes: [No edema no cyanosis no claudication normal pulses] Skin: No rash. warm and dry. Neurologic: Cranial nerves II through XII grossly intact, alert and oriented x 3. - Labs CBC & Chem 7: 12/13/24 05:36 12/14/24 07:43 Labs: Abnormal Lab Results - Last 24 Hours (Table) 12/11/24 12/11/24 12/11/24 Range/Units 08:05 08:05 11:47 WBC 21.82 H (4.50-10.00) 10*3/uL RBC 3.40 L (4.40-5.60) 10*6/uL Hgb 12.0 L (13.0-17.0) g/dL Hct 36.0 L (39.6-50.0) % MCV 105.9 H (80.0-97.0) fL MCH 35.3 H (27.0-32.0) pg Plt Count 81 L (140-440) 10*3/uL Immature Gran # 0.15 H (0.00-0.04) 10*3/uL Neutrophils # 20.23 H (1.80-7.70) 10*3/uL Lymphocytes # 0.35 L (0.90-5.00) 10*3/uL Monocytes # 1.06 H (0.20-1.00) 10*3/uL Eosinophils # 0.00 L (0.04-0.35) 10*3/uL Glucose 186 H (74-99) mg/dL POC Glucose (mg/dL) 229 H (70-110) mg/dL Calcium 8.3 L (8.4-10.2) mg/dL Total Bilirubin 2.0 H (0.2-1.3) mg/dL AST 80 H (17-59) U/L ALT 59 H (4-49) U/L Alkaline Phosphatase 184 H (38-126) U/L Total Protein 5.5 L (6.3-8.2) g/dL Albumin 2.6 L (3.5-5.0) g/dL 12/11/24 12/12/24 Range/Units 20:15 06:25 WBC (4.50-10.00) 10*3/uL RBC (4.40-5.60) 10*6/uL Hgb (13.0-17.0) g/dL Hct (39.6-50.0) % MCV (80.0-97.0) fL MCH (27.0-32.0) pg Plt Count (140-440) 10*3/uL Immature Gran # (0.00-0.04) 10*3/uL Neutrophils # (1.80-7.70) 10*3/uL Lymphocytes # (0.90-5.00) 10*3/uL Monocytes # (0.20-1.00) 10*3/uL Eosinophils # (0.04-0.35) 10*3/uL Glucose (74-99) mg/dL POC Glucose (mg/dL) 261 H 210 H (70-110) mg/dL Calcium (8.4-10.2) mg/dL Total Bilirubin (0.2-1.3) mg/dL AST (17-59) U/L ALT (4-49) U/L Alkaline Phosphatase (38-126) U/L Total Protein (6.3-8.2) g/dL Albumin (3.5-5.0) g/dL Microbiology - Last 24 Hours (Table) 12/06/24 01:06 Blood Culture - Final Blood Assessment and Plan Assessment: Alcohol intoxication, serum level 79 Acute COPD exacerbation Possible acute CHF exacerbation, EF 40 to 45% Acute hypoxic respiratory failure, BiPAP dependent, secondary to all the above ,multilobar pneumonia, possible aspiration Lactic acidosis, improving with IV fluid hydration Elevated troponins, NSTEMI suspect typeII related to mismatch supply and demand,cardiology following Hyperammonemia Alcoholic encephalopathy Chronic abdominal pain Chronic pancreatitis History of esophageal varices with multiple bandings Elevated T. bili, LFTs in a patient with history of alcoholic cirrhosis of liver, chronic alcoholic hepatitis Portal hypertension History of ascites with multiple paracentesis Alcohol dependence History of polysubstance abuse including cocaine, heroin, marijuana Noncompliance Chronic alcoholic hepatitis Chronic nicotine dependence History of nephrolithiasis, chronic anemia No code Plan: Continue on current medication regime ,monitoring and symptomatic treatment. WA protocol. maintain aggressive pulmonary toileting with nebulized bronchodilators, Pulmicort, steroids, Lasix. Alcohol abstinence and nicotine cessation reinforced. currently discharge planning in progress for subacute rehab. Prognosis guarded given multiple complex medical issues. The impression and plan of care has been dictated as directed. : I performed a history and examination of this patient, discussed the same with the dictator. I agree with the dictator's note ,documented as a scribe. Any additional findings or plans will be noted.
--- NOTE | 2024-12-14 13:57 | P.PN ---
Subjective Progress Note Date: 12/07/24 H&P Date: 12/06/24 Chief Complaint: Alcohol intoxication, respiratory failure This is a 49-year-old male with past medical history significant for polysubs tance abuse including alcohol, cocaine heroin marijuana, pancreatitis, chronic alcoholic hepatitis ,ascites with multiple paracentesis, esophageal varices with multiple banding's, chronic anemia, ventral hernia repair, bipolar, depression, anxiety, multiple other medical issues transferred to the ER via EMS with complaints of progressive dyspnea over the last couple days,accompanied by cough.endorses heavy alcohol use of 1 pint per day. On admission tachypneic, tachycardic, venous blood gases reported pH 7.45 RRG230, bicarb 21, Tmax 99.8, WBC 17.52 lactic acid 5.1 decreased to 2.1 with IV fluid hydration. Chest x-ray reporting bilateral lower lung field consolidations consistent with multilobar pneumonia. Procalcitonin within normal limits, 0.40. ProBNP 3800, Hemoglobin 11.9, platelets 144, INR 1.1. Troponin 0.543, 0.623, EKG reporting sinus tachycardia, prior echo 2016 reporting normal LV function, EF 55 to 60% with no significant valvular abnormalities/repeat echo ordered ordered. T. bili 2.6, AST 165, AST 44, alk phos 218. Amylase 73, lipase 392. Serum alcohol 79. maintained on BiPAP 60%, Zosyn, nebulized bronchodilators, IV steroids, Pulmicort and CIWA protocol. Recent CIWA score 8. 12/07/2024 remains BiPAP dependent, FiO2 50%. Continues on Lasix-chest x-ray yesterday reported interstitial infiltrates with lower lung airspace disease improved.echo pending. Renal function stable.positive diet intake, able to be off BiPAP for less than 10 minutes to facilitate eating. Staff reports patient cooperative but impulsive, with significant anxiety. CIWA score during the night 24 currently ranging 6-9. In the last 24 hours has received 9 mg of Ativan per CIWA protocol. Viral studies negative, afebrile, WBC increased to 23.97. December 09, 2024: Patient is reevaluated. He remains in intensive care unit as overflow. He remains on Airvo 60 L/min with an FiO2 of 63%. He is undergoing a breathing treatment while I am seeing him today. He indicates he is feeling much better. He complains of some minor tremors that have improved since arrival. He also complains of some mild chest pain. No nausea or vomiting no diarrhea or constipation. He was originally admitted for bilateral pneumonia, suspected for aspiration. He has significant history of alcoholism along with alcoholic hepatitis and chronic pancreatitis. He has known esophageal varices as well. Signs this morning are stable blood pressure controlled. Labs show WBC count of 19.65 hemoglobin is 11 MCV 106.3 platelets are 87. Chemistries are essentially normal with exception of glucose which has been slightly elevated. Blood cultures are negative. Sickle care notes reviewed remains on Zosyn and diuretics with lactulose as well. December 10, 2024: Patient continues to complain of pain abdomen consistent with his chronic pancreatitis. Changed to tramadol and morphine was discontinued. We discussed why that was as my concerns with respiratory suppression and his pneumonia. He indicates tramadol not help and would like [place] which he does take at home. He is currently on high flow oxygen via nasal cannula 15 L/min. Staff indicate he is overall improved. He received lorazepam last night twice once this morning. Pulmonology is following. He will go to the stepdown unit soon. He remains on Zosyn for antibiotic coverage for his pneumonia. He has albuterol and budesonide breathing treatments along with methylprednisolone. He continues on pantoprazole for GERD. Diazepam and chlordiazepoxide for CIWA protocol scales. 12/11/2024 chest x-ray yesterday reported slightly improved reticulonodular infiltrates.maintaining O2 sats in the high 90s on 10 L high flow nasal cannula. Continues on Zosyn. WBC 21.8, platelets 81. Afebrile. Continues on CIWA protocol, recent CIWA score 10. Evaluated by cardiology, recommendations noted. 12/13/2024 initially had plan for discharge, as O2 had been weaning down. Patient became increasingly confused, required Ativan frequently throughout the night. Eventually received Haldol this a.m. as patient was pulling out all IVs and morgan es. Repeat blood work reveals WBC 14, hemoglobin 11.1, platelets 74, creatinine 0.67, potassium 3.7. Ammonia level is 74. 12/14/2024 patient calm, cooperative, consumed 100% of breakfast. Maintaining O2 sats in the 90s on 2 L nasal cannula, O2 sats on room air during the night 87%. Renal function stable. Ammonia level 119, maintained on lactulose. Afebrile. Objective - Vital Signs Vital signs: Vital Signs Temp 97.6 F 12/14/24 03:25 Pulse 74 12/14/24 13:35 Resp 21 12/14/24 03:25 BP 119/64 12/14/24 03:25 Pulse Ox 96 12/14/24 03:25 FiO2 63 12/10/24 04:07 Intake & Output 12/13/24 12/14/24 12/14/24 18:59 06:59 18:59 Intake Total 1280 20 240 Output Total 800 Balance 1280 -780 240 Weight 95.1 kg 94.5 kg Intake: IV 20 20 Invasive Line 7 20 20 Oral 1260 240 Output: Urine 800 Other: Voiding Method Urinal Urinal # Voids 450 1 - Exam General: alert and oriented x 3, sitting up in bed. no acute distress HEENT: [Normocephalic, atraumatic ,PERRL. EOMI. sclera nonicteric .no erythema or exudate.] Neck: Supple, no JVD Cardiac: [Heart regular in rate and rhythm. No S3. No S4. No clicks, rubs. No murmur.] Lungs: Unlabored, equal air entry, fine basilar crackles. Abdomen: Soft, nondistended,nontender,no guarding, positive bowel sounds. Extremes: [No edema no cyanosis no calf tenderness. Peripheral pulses intact.] Skin: No rash. warm and dry. Neurologic: Cranial nerves II through XII grossly intact. - Labs CBC & Chem 7: 12/13/24 05:36 12/14/24 07:43 Labs: Abnormal Lab Results - Last 24 Hours (Table) 12/13/24 12/13/24 12/14/24 Range/Units 17:07 20:03 07:43 Sodium 136 L (137-145) mmol/L BUN 22 H (9-20) mg/dL Glucose 116 H (74-99) mg/dL POC Glucose (mg/dL) 137 H 134 H (70-110) mg/dL Ammonia (<30) umol/L 12/14/24 12/14/24 Range/Units 07:43 12:04 Sodium (137-145) mmol/L BUN (9-20) mg/dL Glucose (74-99) mg/dL POC Glucose (mg/dL) 155 H (70-110) mg/dL Ammonia 119 H (<30) umol/L Assessment and Plan Assessment: Alcohol intoxication, serum level 79 Acute COPD exacerbation Possible acute CHF exacerbation, EF 40 to 45% Acute hypoxic respiratory failure, status post BiPAP dependent, secondary to all the above and possibly aspiration pneumonia. Completed antibiotics as per pulmonary. Lactic acidosis, improving with IV fluid hydration Elevated troponins, NSTEMI suspect typeII related to mismatch supply and demand,cardiology following Hyperammonemia Chronic abdominal pain Chronic pancreatitis History of esophageal varices with multiple bandings Elevated T. bili, LFTs in a patient with history of alcoholic cirrhosis of liver, chronic alcoholic hepatitis Portal hypertension History of ascites with multiple paracentesis Alcohol dependence History of polysubstance abuse including cocaine, heroin, marijuana Noncompliance Chronic alcoholic hepatitis Chronic nicotine dependence History of nephrolithiasis, chronic anemia No code Plan: Continue on current medication regime ,monitoring and symptomatic treatment. Aggressive pulmonary toileting with nebulized bronchodilators, Pulmicort, steroid taper, Lasix. CIWA protocol. Maintain on lactulose. Discharge planning in progress for subacute rehab. The impression and plan of care has been dictated as directed. : I performed a history and examination of this patient, discussed the same with the dictator. I agree with the dictator's note ,documented as a scribe. Any additional findings or plans will be noted.
[2024-12-14] MEDS ORDERED: OLANZapine 2.5 MG TAB PO PRN (14:07)
--- NOTE | 2024-12-14 14:10 | P.CN ---
Psychiatric Consult - . Consult date: 12/14/24 Consult:: 12/14/24 13:58 IDENTIFYING DATA: This patient is a 49-year-old male who currently single has 4 kids lives with his parents, he is unemployed REASON FOR REFERRAL: Psychiatry was consulted for general decision making capacity HISTORY OF PRESENT ILLNESS: The patient presented to the hospital initially on 12/06. Patient was brought in for dyspnea/shortness of breath brought in by EMS. Patient apparently has a history of COPD liver disease chronic alcohol abuse. Patient was found to have pneumonia, elevated troponins. Patient apparently has been confused at times following her diabetes. White blood cell count was eleva alessia. Patient is currently awaiting subacute rehab placement. He claims that he came in the hospital because his breathing got "worse". States that he has not been improving since being in the hospital. He was minimizing his need for most treatment, believes that he can "do everything myself" has a fairly poor insight or judgment. He believes that today's date is "February 12" does know the . He notes that he is in [facility], he knows his full name. He is claiming that he has mild tremors from the alcohol withdrawal. He claims that he wants his sister to help him with medical decision making. He claims that he drinks 1/2 gallon a day of vodka. In that his sleep has been on and off appetite has been fair.. At this time patient denies any suicidal or homical ideations, intent or plan. Patient denies any auditory, visual hallucinations and denies any paranoia or delusions. Patients admits to using alcohol, since the age of 11. More it is noted about the alcohol use above. Also claims that he smokes cigarettes. Denies any other recreational drug use. PAST PSYCHIATRIC HISTORY: Patient has a a history of etoh use disorder, claims to also have bipolar. Patient denies being on any psychiatric medications. Patient denies any previous psychiatric hospitalizations. Patient denies any psychiatric outpatient follow-up. Patient denies any history of suicide attempts in the past. PAST MEDICAL HISTORY: As per medical H&P. ALLERGIES: as per EMR. CHEMICAL DEPENDENCY HISTORY: as per HPI. FAMILY PSYCHIATRIC/SUBSTANCE USE HISTORY: Denies SOCIAL HISTORY: Patient was born and raised in [place] and then moved to [place]. Claims that he completed a GED. Claims that he used to work doing [employer] and [employer]. Currently unemployed he lives with his parents, he is single he has 4 kids. Claims that he went to custodial in 2023 for felonious assault recently got off parole. MENTAL STATUS EXAM: General Appearance: Patient appears to be older than stated age is alert, longer hair, has a perez, pleasant, attempts to be cooperative. Patient appears to have fair hygiene and grooming wearing hospital gown with poor eye contact. Behavior: Patient is calmly lying in bed without any agitated behavior. Speech: Patient's speech is fluent and nonpressured. Soft tone of voice Mood/Affect: Patient reports their mood is "ok", affect is congruent and const ricted Suicidality/Homicidality: Patient denies having any suicidal or homicidal ideation intent or plan. Perceptions: Patient denies any visual hallucinations and denies any auditory hallucinations Though content/process: There is no evidence of any delusional thought content and thought process is linear and goal-directed. Fairly concrete, poverty of content. Minimizing his physical condition and ability to care for himself Memory and concentration: AOX2, does not know today's date, grossly follows most commands. Cannot spell "WORLD" backwards Judgment and insight: Poor IMPRESSIONS: History of bipolar disorder Rule out delirium Alcohol use disorder severe dependence Nicotine dependence PLAN: -At this time patient DOES NOT meet criteria for inpatient psychiatric admission. -Patient DOES NOT have general decision making capacity at this time and is unable to reason through and communicate/appreciate the risks, benefits and alternatives to treatment. Patient is unable to care for himself and understand his physical illnesses and limitations. Would advise petitioning for guardianship -Delirium precautions recommended with patient including - avoiding use of narcotics and BALANCE ENGINEER sedatives, limit anticholinergic medications when possible, frequent re-orientation, minimize use of restraints, open window shades during the day and close them at night -Would recommend the following medication changes/additions: Please attempt to minimize opiates, benzodiazepines, steroids as much as possible as these will likely precipitate confusion or episodes of delirium. Zyprexa 2.5 mg scheduled at nighttime with 2.5 mg twice daily as needed for psychosis/delirium/agitation -[facility] service worker hospital to provide patient with outpatient mental health/psychiatry resources for appropriate follow up upon discharge -[employer] spoke with patient about substance abuse and the harmful effects on medical and mental health, patient verbally understood and agreed. -food service worker hospital/[facility] looking into subacute rehab placement. -Communicated plan to patient's nurse -Psychiatry will sign off at this time -Please contact with any questions.
[2024-12-14 17:06] LABS: Glucose,Whole Blood 234 mg/dL (70-110)
[2024-12-14] MEDS: traMADol 50 MG TAB PO PRN (17:41)
[2024-12-14 20:09] LABS: Glucose,Whole Blood 117 mg/dL (70-110)
[2024-12-14] MEDS: OLANZapine 2.5 MG TAB PO SCH (20:18)
[2024-12-14 23:20] VITALS: TEMP 97.6
[2024-12-15 05:54] LABS: Glucose,Whole Blood 167 mg/dL (70-110)
[2024-12-15 08:57] VITALS: PULSE 59; RESP 14
[2024-12-15 09:03] VITALS: BP 104/65
--- NOTE | 2024-12-15 09:33 | P.PN ---
Subjective Progress Note Date: 12/15/24 Principal diagnosis: Perihilar pneumonia, alcoholic encephalopathy This patient is awake alert vital signs are stable patient is afebrile, currentl y awaiting insurance reinstatement for rehabilitation placement otherwise is patient will be discharged home Objective - Vital Signs Vital signs: Vital Signs Temp 97.6 F 12/15/24 08:55 Pulse 59 L 12/15/24 08:55 Resp 14 12/15/24 08:55 BP 104/65 12/15/24 09:02 Pulse Ox 96 12/15/24 08:55 FiO2 63 12/10/24 04:07 Intake & Output 12/14/24 12/15/24 12/15/24 18:59 06:59 18:59 Intake Total 1220 20 360 Output Total 600 Balance 1220 -580 360 Weight 94.6 kg Intake: IV 20 20 Invasive Line 7 20 20 Oral 1200 360 Output: Urine 600 Other: Voiding Method Urinal Toilet Urinal Incontinent # Voids 4 1 # Bowel Movements 1 1 - Exam HEENT pupils equal and reactive light extractor muscles intact nares patent throat clear neck supple Heart regular rate and rhythm without murmur Lungs are clear to auscultation bilaterally Abdomen is soft nontender positive bowel sounds no masses Extremes no edema no cyanosis no claudication - Labs CBC & Chem 7: 12/13/24 05:36 12/14/24 07:43 Labs: Abnormal Lab Results - Last 24 Hours (Table) 12/14/24 12/14/24 12/14/24 Range/Units 12:04 17:04 20:07 POC Glucose (mg/dL) 155 H 234 H 117 H (70-110) mg/dL 12/15/24 Range/Units 05:52 POC Glucose (mg/dL) 167 H (70-110) mg/dL Assessment and Plan (1) Alcohol withdrawal Current Visit: Yes Status: Acute Code(s): F10.239 - ALCOHOL DEPENDENCE WITH WITHDRAWAL, UNSPECIFIED SNOMED Code(s): 108267656 (2) COPD (chronic obstructive pulmonary disease) Current Visit: Yes Status: Acute Code(s): J44.9 - CHRONIC OBSTRUCTIVE PULMONARY DISEASE, UNSPECIFIED SNOMED Code(s): 13505679 (3) Elevated troponin Current Visit: Yes Status: Acute Code(s): R79.89 - OTHER SPECIFIED ABNORMAL FINDINGS OF BLOOD CHEMISTRY SNOMED Code(s): 636965828 (4) Pneumonia Current Visit: Yes Status: Acute Code(s): J18.9 - PNEUMONIA, UNSPECIFIED ORGANISM SNOMED Code(s): 364670477 Plan: Patiently currently awaiting either placement to long-term rehabilitation unit or discharge home Completed antibiotic therapy Has been rehydrated Has been in the hospital for over a week basically detoxed however will require long-term outpatient therapy for substance abuse Time with Patient: Less than 30
== END 2024-12-15 14:55 | DRG 133 ==
LOC: EC 23:53 → 3SCARD 12-06 01:51 → 2SICU 12-06 05:10 → 3SCARD 12-10 13:41
PROVIDERS: ADMIT Family Medicine; ATTEND Family Medicine
DX: J96.21 Acute and chronic respiratory failure with hypoxia (principal); J69.0 Pneumonitis due to inhalation of food and vomit; K76.6 Portal hypertension; D64.9 Anemia, unspecified; I50.9 Heart failure, unspecified; E87.20 Acidosis, unspecified; J44.1 Chronic obstructive pulmonary disease with (acute) exacerbation; I42.9 Cardiomyopathy, unspecified; E86.1 Hypovolemia; R18.8 Other ascites; F10.229 Alcohol dependence with intoxication, unspecified; F10.239 Alcohol dependence with withdrawal, unspecified; F14.10 Cocaine abuse, uncomplicated; Z87.442 Personal history of urinary calculi; K70.10 Alcoholic hepatitis without ascites; Z91.199 Patient's noncompliance with other medical treatment and regimen due to unspecified reason; E11.9 Type 2 diabetes mellitus without complications; F31.9 Bipolar disorder, unspecified; F41.9 Anxiety disorder, unspecified; F43.10 Post-traumatic stress disorder, unspecified; G31.2 Degeneration of nervous system due to alcohol; G89.29 Other chronic pain; I11.0 Hypertensive heart disease with heart failure; I21.A1 Myocardial infarction type 2; I85.10 Secondary esophageal varices without bleeding; J44.0 Chronic obstructive pulmonary disease with (acute) lower respiratory infection; K21.9 Gastro-esophageal reflux disease without esophagitis; Y90.3 Blood alcohol level of 60-79 mg/100 ml; K86.1 Other chronic pancreatitis; K70.30 Alcoholic cirrhosis of liver without ascites; Z75.1 Person awaiting admission to adequate facility elsewhere; Z79.52 Long term (current) use of systemic steroids; Z79.82 Long term (current) use of aspirin; Z79.899 Other long term (current) drug therapy; Z66 Do not resuscitate
CPT/HCPCS: 36415; 36600; 71045; 80048; 80053; 80320; 81001; 82140; 82150; 82803; 82805; 83036; 83605; 83690; 83735; 83880; 84132; 84145; 84484; 85025; 85610; 85730; 87040; 87449; 87636; 93005; 93306; 94640; 94660; 94760; 96361; 96365; 96375; 99291